=== PATIENT | female | born 1945 | race Caucasian/White ===

== ENCOUNTER → 2021-08-17 08:18 | Outpatient (CLI) | payer MEDICARE, OTHER, SELFPAY ==
--- NOTE | 2021-08-17 08:26 | CT_ITS ---
STUDY: LOW DOSE CT LUNG CANCER SCREENING REASON FOR EXAM: Female, 76 years old. COPD. Longtime smoker. RADIATION DOSAGE (If Supplied By Facility): CTDIvol = ( 3.02 ) mGy, DLP = ( 110.23 ) mGycm TECHNIQUE: No contrast was administered. Low dose technique was utilized (average mAS-38 and kVp 120). 1.25 mm axial source images with a slice interval of 1.25-mm were reconstructed in lung windows. 2.5 mm axial source images with a slice interval of 2.5-mm were reconstructed in lung windows. 5.0 mm axial source images with a slice interval of 5.0-mm were reconstructed in soft tissue windows. Nodule measured using lung windows on PACS and/or independent workstation with automated measurement of minimum and maximum diameter. Nodule measurement reported as average diameter rounded to the nearest whole number. Growth is defined as an increase ins size of greater than 1.5 mm. COMPARISON: None. NODULES: No suspicious nodules are seen. Emphysema: Hyperinflation. Emphysematous changes more prominent in the upper lobes. Focal increased markings in the posterior aspect of the lingular segment of the left upper lobe abutting the left major fissure most likely secondary to scarring. There is evidence of a linear scarring at the lung bases. Endobronchial lesion: None Aorta: Atherosclerotic plaque formation. Coronary arteries: Coronary artery calcification. Heart: Unremarkable. Pulmonary artery: Mediastinal nodes: Other chest and abdominal findings: Calcification of the margins of both breast prostheses. CT/Low Dose CT Lung Screening IMPRESSION: Lung-RADS category 2 - Continue annual screening with LDCT in 12 months. IMPORTANT NOTES FOR USE: ACR Lung-RADS Version 1.1 Assessment Categories Release Date: 2018 Category: Coded 0-4 bases on nodule(s) with highest degree of suspicion. Negative screen is defined as categories 1 and 2; a positive screen is defined as categories 3 and 4. Category 3 and 4A nodules that are unchanged on interval CT should be coded as category 2, and individuals returned to screening in 12 months. Category 4X: Category 3 or 4 nodules with additional imaging findings that increase the suspicion of lung cancer, such as spiculation, GGN that doubles in size in 1 year, enlarged lymph notes, etc. Category Modifiers: S (significant finding unrelated to lung cancer) Electronically Signed: Ayden Sifuentes MD at 15:17 EDT , Service support ,
== END ==
PROVIDERS: PCP Internal Medicine; Referring Provider Internal Medicine; Visit Provider Internal Medicine
DX: F17.210 Nicotine dependence, cigarettes, uncomplicated (principal); J44.9 Chronic obstructive pulmonary disease, unspecified
CPT/HCPCS: 71271

== ENCOUNTER → 2021-09-30 10:41 | Outpatient (CLI) | payer MEDICARE, OTHER, SELFPAY ==
[2021-09-30 11:24] LABS: D-Dimer Quantitative (DVT/PE) 0.84 FEU/ug/m (0.27-0.49)
[2021-09-30 11:25] LABS: Erythrocyte Sedimentation Rate 41 mm/hr (0-30)
== END ==
PROVIDERS: PCP Internal Medicine; Visit Provider Nurse Practitioner
DX: R06.02 Shortness of breath (principal)
CPT/HCPCS: 85379; 85652; 86141

== ENCOUNTER → 2021-09-30 13:47 | Outpatient (CLI) | payer MEDICARE, OTHER, SELFPAY ==
--- NOTE | 2021-09-30 14:35 | CT_ITS ---
STUDY: CTA CHEST REASON FOR EXAM: Female, 76 years old. R/O PE RADIATION DOSAGE (If Supplied By Facility): CTDIvol = ( 6.88 ) mGy, DLP = ( 216.80 ) mGycm TECHNIQUE: The examination was performed with the intravenous administration of IV 100mL [id number]-370. Post-processing of the angiographic images was performed, with multiplanar reformation and 3D reconstruction. Individualized dose optimization techniques were used for this CT. COMPARISON: 08/17/2021 FINDINGS: Normal enhancement of the main pulmonary artery and right and left pulmonary arteries. Normal enhancement of the bilateral peripheral pulmonary arteries. There is no demonstrated pulmonary embolism. There is atherosclerotic calcification of the aortic arch with tortuosity. There is no demonstrated aortic dissection. Normal heart and pericardium. There are calcifications of the coronary arteries. Normal mediastinum. Normal hilar regions. Normal visualized trachea and bronchi. The lungs are hyper expanded, with flattening of the hemidiaphragms. Centrilobular emphysema predominantly in the upper lung zones. Scattered lower lobe fibrotic bands and not significantly changed since the prior study. Normal pleura. Bilateral breast implants with capsular calcifications. There are degenerative changes of thoracic spine. Mild T5 compression fracture stable since prior chest CT. 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 Gallstones are present. CT/CTA Chest W/WO Contrast IMPRESSION: 1. No central or segmental pulmonary embolism. 2. Chronic changes, as above. Electronically Signed: Mamadou Avitia MD ([place]) at 15:18 EST , Service support ,
[2021-09-30 15:00] LABS: CREATININE FINGERSTICK 0.7 mg/dL (0.55-1.02); EGFR FINGERSTICK > 60.0000 mL/min (>60)
== END ==
PROVIDERS: PCP Internal Medicine; Referring Provider Nurse Practitioner; Visit Provider Nurse Practitioner
DX: R79.89 Other specified abnormal findings of blood chemistry (principal); R06.02 Shortness of breath
CPT/HCPCS: 71275; 85379; 85652; 86141; Q9967

== ENCOUNTER 2021-10-06 11:16 | Inpatient (IN) | payer MEDICARE, OTHER, SELFPAY ==
[2021-10-06] VITALS (13 sets, daily range): BP systolic 127–146; BP diastolic 55–72; PULSE 76–94; RESP 15–18; TEMP 36.3–37; O2SAT 3–97; BMI 27.4; BMI 27.9
--- NOTE | 2021-10-06 12:05 | EDS_ITS ---
HPI History of Present Illness Chief Complaint: Shortness of Breath Informant: patient Onset/Context/Timing Onset: Days Context: gradual Timing: Continuous Current Severity: Mild Maximum Severity: Mild Associated Symptoms Negative for cough, rhinorrhea, post nasal drip, ear pain, fever, sore throat, subjective, chills, sweats, clear sputum, white sputum, yellow sputum or green sputum Chest Pain: Positive for None Narrative Narrative: 76-year-old female history of COPD not on home O2 smoker smokes about half pack cigarettes a day. Recent diagnosis of a T5 compression fracture and insulin-dependent diabetic with insulin pump. States that she has been more short of breath the last several days. She has had a work-up done by her primary care physician and elevated D-dimer had a CTA which was negative and a chest x-ray both done about 6 days ago and were unremarkable. She denies fever or chills. She was vaccinated against Covid and has already gotten her booster also. She denies nausea vomiting or diarrhea no hemoptysis. No chest pain. PE Risk Factors: Negative for Cancer, OCP + Smoking + > 35, Prior DVT or PE, Recent immobilization, Recent surgery and Recent travel Prior similar symptoms: No Recent Illness/Hospitalization: No PFSH PFSH Medical History COPD (chronic obstructive pulmonary disease) Diabetes Osteopenia Respiratory failure Home Medications albuterol sulfate 90 mcg/actuation aerosol inhaler 1 puff INHALATION ONCE PRN 09/08/21 [History Last Taken Unknown] amlodipine 5 mg-benazepril 10 mg capsule 1 cap PO DAILY 09/08/21 [History Last Taken Unknown] fluticasone 100 mcg-salmeterol 50 mcg/dose blistr powdr for inhalation 1 inh INHALATION BID 09/08/21 [History Last Taken Unknown] insulin aspart U-100 100 unit/mL subcutaneous solution 100 unit CONTINUOUS SUBCUTANEOUS INFUSION .continuous ml 09/08/21 [History Last Taken Unknown] levothyroxine 112 mcg tablet 112 mcg PO DAILY 09/08/21 [History Last Taken Un known] metoprolol succinate 50 mg tablet,extended release 24 hr 50 mg PO DAILY 09/08/21 [History Last Taken Unknown] oxybutynin chloride 5 mg tablet 10 mg PO DAILY tab 09/08/21 [History Last Taken Unknown] simvastatin 10 mg tablet 10 mg PO DAILY 09/08/21 [History Last Taken Unknown] Allergy/AdvReac Type Severity Reaction Status Date / Time ciprofloxacin [From Cipro] Allergy Intermediate hives Verified 10/06/21 11:17 Sulfa (Sulfonamide Allergy Intermediate hives Verified 10/06/21 11:17 Antibiotics) Family History Father Diabetes Other Respiratory disease Social History Smoking Status: Current every day smoker tobacco type: cigarettes ROS ROS ED ROS Narrative Shortness of breath. Review of Systems ROS Unobtainable: Denies due to encephalopathy Constitutional Constitutional ED: Denies chills or fever(s) Eyes Eyes: Denies change in vision ENT ENT ED: Denies ear pain Cardiovascular Cardiovascular: Denies chest pain or palpitations Respiratory/Chest Respiratory/Chest: Reports dyspnea; Denies cough or sputum Gastrointestinal Gastrointestinal: Denies abdominal pain, diarrhea, nausea or vomiting Genitourinary Genitourinary ED: Denies dysuria or hematuria Musculoskeletal Musculoskeletal: Denies myalgias Integumentary Denies rash Neurologic Neurologic: Denies headache(s) Psychiatric Psychiatric: Denies depression Endocrine Endocrinology: Denies polyuria Hematologic/Lymphatic Hematologic/Lymphatic: Denies easy bruising Allergic/Immunologic Allergic/Immunologic ED: Denies urticaria EXAM Physical Exam Narrative Exam Narrative: 76-year-old female no acute distress on room air pulse ox 84% on 3 L she is 97%. No distress. HEENT exam unremarkable. Neck nontender no JVD. Lungs clear to auscultation bilaterally. Heart regular rhythm no murmur. Rate about 90. Abdomen soft nontender normal bowel sounds no peritoneal signs. Extremities moves all 4. Calves nontender without edema or cords. Neurologically she is awake alert with no focal motor deficits. Const Vital Signs: 10/06/21 11:26 10/06/21 11:28 10/06/21 11:50 Temperature 98.6 F Temperature Source Temporal Pulse Rate 94 Respiratory Rate 18 Respiratory Effort Short of Breath Respiratory Depth Deep Respiratory Pattern Tachypnea Blood Pressure 146/72 H Blood Pressure Mean 96 Pulse Ox 84 97 Oxygen Delivery Method Room Air Nasal Cannula Nasal Cannula Oxygen Flow Rate (L/min) 3 3 10/06/21 11:52 10/06/21 12:15 10/06/21 12:18 Temperature Temperature Source Pulse Rate 76 Respiratory Rate 18 Respiratory Effort Respiratory Depth Respiratory Pattern Blood Pressure Blood Pressure Mean Pulse Ox 91 92 Oxygen Delivery Method Nasal Cannula Nasal Cannula Oxygen Flow Rate (L/min) 3 3 10/06/21 13:28 Temperature Temperature Source Pulse Rate 94 Respiratory Rate 15 Respiratory Effort Respiratory Depth Respiratory Pattern Blood Pressure 145/55 H Blood Pressure Mean 85 Pulse Ox 91 Oxygen Delivery Method Nasal Cannula Oxygen Flow Rate (L/min) 3 Positive well nourished and well developed; Negative for obese, cachectic, contractures or unkempt General Appearance ED: well developed and NAD; Negative for unkempt, cachectic, contractures or pallor Nutritional Appearance: Negative for cachectic or obese HEENT Reports moist mucous membranes atraumatic; Negative for trauma or tenderness Eyes PERRL and EOMs intact bilaterally Neck no lymphadenopathy, supple, no meningeal signs and no JVD General: Negative for tenderness Resp normal respiratory effort and clear to auscultation bilaterally Auscultation: Negative for rales, rhonchi or wheezes Cardio regular rate, regular rhythm, S1 normal heart sound, S2 normal heart sound and no murmurs GI non-tender, non-distended and no masses Auscultation: normoactive bowel sounds Palpation: soft; Negative for tender, guarding or rebound tenderness present Back/Spine no CVA tenderness and normal to inspection General Back: Negative for CVA tenderness Extremity normal to inspection General Extremety ED: Negative for edema or tenderness General Extremity: Negative for edema Neuro oriented x3 and CN's II-XII intact bilaterally Sensorium / Orientation: alert, oriented to person, oriented to place and oriented to time; Negative for orientation impaired, confused or lethargic Motor Exam: strength 5/5 throughout Psych mental status grossly normal Appearance: Negative for unkempt Thought Process: normal thought process Skin no wounds and skin turgor normal General Skin Exam: Negative for jaundice or pallor Lesions: no lesions Rashes: no rashes MDM MDM MDM Narrative Medical decision making narrative: 76-year-old female no acute distress. Hypoxic on room air. This may be from underlying COPD. Rule out pneumonia versus CHF or other etiologies. She just recently had a work-up for a PE which was negative she had a negative CTA. Lab Data Attestation: I reviewed the patient's lab results. Lab results narrative: CBC shows a white count of 12.2. Hemoglobin of 13. Electrolytes unremarkable gap of 4 BUN 18 creatinine 0.9. Glucose 125 troponin normal. Covid negative. Chemistries unremarkable gap of 4 normal BUN and creatinine. Normal troponin of 14. Labs: Laboratory Results - last 24 hr 10/06/21 10/06/21 12:11 12:11 WBC 12.2 H RBC 4.58 Hgb 13.1 Hct 40.3 MCV 88.0 MCH 28.6 MCHC 32.5 RDW Std Deviation 46.7 H RDW Coeff of Kristyn 14.7 H Plt Count 302 MPV 10.8 Immature Gran % (Auto) 0.600 Neut % (Auto) 77.5 H Lymph % (Auto) 10.1 L Shannon % (Auto) 9.9 Eos % (Auto) 1.3 Baso % (Auto) 0.6 Absolute Neuts (auto) 9.5 H Absolute Lymphs (auto) 1.23 Nucleated RBC % 0 Sodium 138 Potassium 4.0 Chloride 102 Carbon Dioxide 32.0 Anion Gap 4 L BUN 18 Creatinine 0.96 Estim Creat Clear Calc 41.71 Est GFR (MDRD) Af Amer 73 Est GFR (MDRD) Non-Af 60 BUN/Creatinine Ratio 18.8 Glucose 125 H Calcium 9.3 Troponin I High Sens 14 Radiography Chest X-Ray - ED: 1 View, Read by ED Physician, Heart, Lungs, Mediastinum, Bony Structures, No Acute Disease and Chronic Changes Diagnostic Testing: Chest x-ray, portable, single view interpreted by myself shows no acute abnormality. Chronic changes consistent with COPD. Bilateral breast implants. Rhythm Strip Rhythm Strip: Sinus Rhythm Rate: 76 Ectopy: None EKG Initial EKG: Attestation: I personally reviewed and interpreted this EKG as follows: Interpretation: Sinus Rhythm and No Acute Injury Pattern Comments: Normal sinus rhythm rate of 76 no acute signs of MN or ischemia. No old EKG available. Discharge Plan Triage Chief Complaint: Shortness of Breath ED Provider: Luis Armando Ashley Dx/Rx/DC Orders Prescriptions: No Action insulin aspart U-100 [Novolog U-100 Insulin aspart] 100 unit/mL solution 100 unit continuous subcutaneous infusion .continuous RF: 0 levothyroxine 112 mcg tablet 112 mcg PO DAILY RF: 0 amlodipine-benazepril [Lotrel] 5-10 mg capsule 1 cap PO DAILY RF: 0 oxybutynin chloride 5 mg tablet 10 mg PO DAILY RF: 0 metoprolol succinate [Toprol XL] 50 mg tablet extended release 24 hr 50 mg PO DAILY RF: 0 simvastatin 10 mg tablet 10 mg PO DAILY RF: 0 fluticasone propion-salmeterol [Wixela Inhub] 100-50 mcg/dose blister with device 1 inh inhalation BID RF: 0 albuterol sulfate [Proventil HFA] 90 mcg/actuation HFA aerosol inhaler 1 puff inhalation ONCE PRN (Reason: shortness of breath or wheezing) RF: 0 Primary Care Provider: Shena Jeffers
[2021-10-06] MEDS: Ipratropium/Albuterol Sulfate 3 ML AMPUL.NEB INHALATION ×2 (12:18→19:13)
[2021-10-06] MEDS: Albuterol 2.5 MG/3 ML VIAL.NEB. INHALATION (12:18)
[2021-10-06 12:22] LABS: Absolute Lymphocyte Count 1.23 X10^3/uL (0.83-4.51); Absolute Neutrophil Count 9.5 X10^3/uL (2.0-7.7); Basophil# 0.07 X10^3/uL; Basophil% 0.6 % (0-1); Eosinophil# 0.16 X10^3/uL; Eosinophils% 1.3 % (0-5); Hematocrit 40.3 % (37-47); Hemoglobin 13.1 g/dL (12.0-15.0); Lymphocyte # 1.23 X10^3/ul (0.83-4.51); Lymphocyte % 10.1 % (19-41); Mean Corp Hgb Conc 32.5 g/dL (32-36); Mean Corpuscular Hgb 28.6 pg (27.0-32.0); Mean Platelet Vol. 10.8 fl (6.2-12.0); Monocyte# 1.21 X10^3/uL; Monocyte% 9.9 % (0-10); NRBC Flagged by Analyzer 0 % (0-5); Neutrophil # 9.46 X10^3/uL (2.7-7.7); Neutrophil % 77.5 % (47-70); Platelet Count 302 K/mm3 (150-450); RBC Distribution Width CV 14.7 % (11.6-14.6); RBC Distribution Width SD 46.7 fl (35.1-43.9); Red Blood Count 4.58 M/mm3 (4.2-5.4); White Blood Count 12.2 K/mm3 (4.4-11.0)
[2021-10-06] MEDS: predniSONE 20 MG Tablet 60 MG PO (12:35)
[2021-10-06 12:36] LABS: Anion Gap 4 (5-15); BUN 18 mg/dL (7-18); BUN/Creat Ratio 18.8 RATIO (10-20); Calcium,Total 9.3 mg/dL (8.5-10.1); Chloride 102 mmol/L (98-107); Creatinine, Serum 0.96 mg/dL (0.55-1.02); EST Glomerular Filtration Rate 60 mL/min (>60); Est Glom Filt Rate - Afr Amer 73 mL/min (>60); Estimated Creatinine Clearance 41.71 ml/min; Glucose 125 mg/dL (74-106); Sodium Level 138 mmol/L (136-145); Troponin-I HS 14 pg/mL (3.0-54.0)
--- NOTE | 2021-10-06 12:40 | RAD_ITS ---
STUDY: X-RAY CHEST REASON FOR EXAM: Female, 76 years old. Shortness of breath, low 02 sats TECHNIQUE: Single AP portable view of the chest. COMPARISON: Comparison is made with prior study dated 09/30/2021. FINDINGS: EKG electrodes are seen. Once again, there is evidence of bilateral breast implants with capsular calcifications. There now is evidence of vascular congestion and mild degree of CHF with superimposed bibasilar atelectasis worse on the right side. There is no demonstrated pleural abnormality. Normal size heart. Normal mediastinum and uli. Normal visualized pulmonary arteries. There is atherosclerotic calcification of the aortic arch with tortuosity. There are diffuse degenerative changes of the visualized thoracic spine. Normal visualized ribs, clavicles, and shoulders. There is no demonstrated abnormality of the visualized soft tissue structures of the upper abdomen. RAD/Chest 1 View (Portable) IMPRESSION: Vascular congestion and mild degree of CHF with bibasilar atelectasis. Electronically Signed: Ayden Sifuentes MD at 13:03 EST , Service support ,
--- NOTE | 2021-10-06 15:09 | HP.PCM.HOS_ITS ---
HPI - General General Date of Admission: 10/06/21 Date of Service: 10/06/21 Chief Complaint: Shortness of breath HPI Narrative LIVIER SMALLS, is a 76 F who presented to the emergency department with spouse fell on 10/06/2021 the chief complaint of shortness of breath. She states that she started experiencing some fatigue over the weekend. She had a thoracic spine fracture and a CTA of her chest was done last week for her pain to rule out pulmonary embolism. This was negative for PE. It also appears that she had an elevated ESR and CRP at that time indicating some inflammatory process was going on although nonspecific. She states that the fatigue definitely sudden after she was evaluated by her doctor on 09/30/2021 and starting this morning she developed some shortness of breath. She denies any anosmia or dysgeusia, nausea or vomiting, diarrhea, cough, fever or chills and she has been vaccinated and boosted for COVID-19. She is afebrile with normal blood pressure, respiratory rate but her pulse ox in the emergency department upon presentation was 84% on room air and improved to 91-97 on 3 L nasal cannula. Her CBC shows a mildly elevated white count at 12.2 with a left shift. Her BMP is overall unremarkable. Her serum glucose was 125. Her serum troponin was 14. A rapid Covid was negative and a PCR is pending at this time. Her chest x-ray showed bibasilar haziness but no focal infiltrate. She was treated with prednisone 60 mg p.o. x1 dose and given a DuoNeb nebulizer treatment and request for admission was made. [facility]LY [facility] Medical History COPD (chronic obstructive pulmonary disease) Diabetes Osteopenia Respiratory failure Home Medications albuterol sulfate 90 mcg/actuation aerosol inhaler 1 puff INHALATION ONCE PRN 09/08/21 [History Last Taken 10/05/21] amlodipine 5 mg-benazepril 10 mg capsule 1 cap PO DAILY 09/08/21 [History Last Taken 10/06/21] fluticasone 100 mcg-salmeterol 50 mcg/dose blistr powdr for inhalation 1 inh INHALATION BID PRN 09/08/21 [History Last Taken 10/05/21] insulin aspart U-100 100 unit/mL subcutaneous solution 100 unit CONTINUOUS SUBCUTANEOUS INFUSION .continuous ml 09/08/21 [History Last Taken 10/06/21] levothyroxine 112 mcg tablet 112 mcg PO DAILY 09/08/21 [History Last Taken 10/06/21] metoprolol succinate 50 mg tablet,extended release 24 hr 50 mg PO DAILY 09/08/21 [History Last Taken 10/06/21] oxybutynin chloride 5 mg tablet 10 mg PO DAILY tab 09/08/21 [History Last Taken 10/06/21] simvastatin 10 mg tablet 10 mg PO DAILY 09/08/21 [History Last Taken 10/05/21] Allergy/AdvReac Type Severity Reaction Status Date / Time ciprofloxacin [From Cipro] Allergy Intermediate hives Verified 10/06/21 11:17 Sulfa (Sulfonamide Allergy Intermediate hives Verified 10/06/21 11:17 Antibiotics) Family History Father Diabetes Other Respiratory disease no surgical history Social History (Updated 10/06/21 @ 15:[address] Roxi Velázquez DO) Smoking Status: Current every day smoker tobacco type: cigarettes Smoking packs per day: 0.5 Smoking cigarettes per day: 10.0 alcohol intake: current alcohol intake frequency: a few times a month substance use type: does not use ROS Constitutional Constitutional: Reports weakness; Denies anorexia, change in weight, chills, fatigue, fever(s), malaise, night sweats or other Eyes Eyes: Denies blurry vision, change in eye color, change in vision, discharge from eye(s), double vision, erythema, eye pain, loss of vision or other ENT HEENT: Denies abnormal hearing, dysphagia, ear pain, epistaxis, headache(s), hearing loss, nasal congestion, nasal discharge, post nasal drip, sinus pressure, sore throat or other Cardiovascular Cardiovascular: Denies chest pain, claudication, dyspnea on exertion, edema, lightheadedness, orthopnea, palpitations, paroxysmal nocturnal dyspnea, rapid heart rate, syncope or other Respiratory/Chest Respiratory/Chest: Reports dyspnea, shortness of breath at rest and shortness of breath with exertion; Denies cough, excessive phlegm production, hemoptysis, productive cough, wheezing or other Gastrointestinal Gastrointestinal: Denies abdominal pain, coffee ground emesis, constipation, diarrhea, dyspepsia, hematemesis, hematochezia, loose stools, melena, nausea, vomiting or other Genitourinary Genitourinary: Reports urinary incontinence; Denies burning urination, difficulty urinating, dysuria, hematuria, nocturia, urinary frequency, urinary hesitancy, urinary urgency or other Musculoskeletal Musculoskeletal: Reports back pain; Denies arthralgias, joint pain, joint stiffness, joint swelling, myalgias, neck pain or other Neurologic Neurologic: Denies abnormal gait, abnormal speech, confusion, disequilibrium, dizziness, focal weakness, headache(s), numbness, paresthesias, seizure-like activity, seizures, syncope, tingling, tremor(s) or other Psychiatric Psychiatric: Denies anxiety, depression, homicidal ideation, suicidal ideation or other Endocrine Endocrinology: Denies change in body appearance, cold intolerance, excessive sweating, heat intolerance, polydipsia, polyuria or other Hematologic/Lymphatic Hematologic/Lymphatic: Denies anemia, easy bleeding, easy bruising, lymphadenopathy or other Allergic/Immunologic Allergic/Immunologic: Denies rhinitis, hives, eczemia, asthma or other Vital Signs Vital Signs Vital Signs: 10/06/21 11:26 10/06/21 11:28 10/06/21 11:50 Temperature 98.6 F Temperature Source Temporal Pulse Rate 94 Respiratory Rate 18 Respiratory Effort Short of Breath Respiratory Depth Deep Respiratory Pattern Tachypnea Blood Pressure 146/72 H Blood Pressure Mean 96 Pulse Ox 84 97 Oxygen Delivery Method Room Air Nasal Cannula Nasal Cannula Oxygen Flow Rate (L/min) 3 3 10/06/21 11:52 10/06/21 12:15 10/06/21 12:18 Temperature Temperature Source Pulse Rate 76 Respiratory Rate 18 Respiratory Effort Respiratory Depth Respiratory Pattern Blood Pressure Blood Pressure Mean Pulse Ox 91 92 Oxygen Delivery Method Nasal Cannula Nasal Cannula Oxygen Flow Rate (L/min) 3 3 10/06/21 13:28 10/06/21 14:50 Temperature 98.6 F Temperature Source Temporal Pulse Rate 94 84 Respiratory Rate 15 17 Respiratory Effort Respiratory Depth Respiratory Pattern Blood Pressure 145/55 H 145/55 H Blood Pressure Mean 85 85 Pulse Ox 91 91 Oxygen Delivery Method Nasal Cannula Oxygen Flow Rate (L/min) 3 3 Weight Weight: 72.575 kg Body Mass Index (BMI) 27.4 Physical Exam Const alert, oriented x3 and no apparent distress Constitutional Narrative: Older white female sitting up in bed, appears comfortable, nontoxic, currently on 3 L nasal cannula with oxygen saturation of 91 to 92% no signs of respiratory distress General Appearance: cooperative HEENT normocephalic, head/scalp atraumatic, hearing grossly normal bilaterally and moist oral mucous membranes HEENT Narrative: Dentition is good, Mallampati is 2, no thrush Eyes PERRL, EOMs intact bilaterally and conjunctivae normal Eyes Narrative: No scleral icterus Neck no lymphadenopathy, supple, no JVD and no carotid bruits Neck Narrative: Trachea midline, no thyroid enlargement Resp normal respiratory effort, no retractions and no use of accessory muscles Resp Narrative: Few scattered end expiratory wheeze and overall diminished but no rales or rhonchi Auscultation: Negative for crackles, rales, rhonchi or wheezes Cardio regular rate, regular rhythm, S1 normal heart sound, S2 normal heart sound, no murmurs, no rub, no gallops, no clicks and no JVD GI normal to inspection, nondistended, normoactive bowel sounds, soft to palpation, non-tender and non-distended Extremity no clubbing, cyanosis or edema Peripheral Pulses: Yes pulses 2+ throughout Skin no rashes or lesions noted, no wounds, skin turgor normal, no jaundice, no petechiae and no mottling Neuro oriented x3, CN's II-XII intact bilaterally, moves all extremities and no focal motor deficits Sensorium / Orientation: awake and alert Speech: speech normal Motor Exam: strength 5/5 throughout Psych affect normal Results Lab / Micro Data Result Diagrams: 10/06/21 12:11 10/06/21 12:11 Labs: Laboratory Results - last 24 hr 10/06/21 12:11: WBC 12.2 H, RBC 4.58, Hgb 13.1, Hct 40.3, MCV 88.0, MCH 28.6, MCHC 32.5, RDW Std Deviation 46.7 H, RDW Coeff of Kristyn 14.7 H, Plt Count 302, MPV 10.8, Immature Gran % (Auto) 0.600, Neut % (Auto) 77.5 H, Lymph % (Auto) 10.1 L, [place] % (Auto) 9.9, Eos % (Auto) 1.3, Baso % (Auto) 0.6, Absolute Neuts (auto) 9.5 H, Absolute Lymphs (auto) 1.23, Nucleated RBC % 0 10/06/21 12:11: Sodium 138, Potassium 4.0, Chloride 102, Carbon Dioxide 32.0, Anion Gap 4 L, BUN 18, Creatinine 0.96, Estim Creat Clear Calc 41.71, Est GFR (MDRD) Af Amer 73, Est GFR (MDRD) Non-Af 60, BUN/Creatinine Ratio 18.8, Glucose 125 H, Calcium 9.3, Troponin I High Sens 14 Micro: Microbiology 10/06/21 12:35 Nasal Secretion SARS-CoV-2 Antigen (Rapid) - Final Rhythm Strip Rhythm Strip: Sinus Rhythm Rate: 76 Ectopy: None Assessment & Plan Assessment/Plan (1) Acute respiratory failure with hypoxia: (2) COPD with acute exacerbation: (3) Leukocytosis: PLAN: Acute hypoxic respiratory failure -Etiology is unclear at this time although suspect acute exacerbation of COPD -CTA of her chest was performed on 09/30/2021 secondary to an elevated D-dimer of 0.84 and showed no acute abnormality but centrilobular emphysema in the apices -Check respiratory PCR -Rapid Covid is negative we will check Covid PCR -Patient has been vaccinated and boosted for Covid -Chest x-ray is overall unimpressive -Check BNP and if elevated will obtain an echocardiogram although clinically patient appears to be euvolemic -Check D-dimer and if elevated greater than 0.84 we will repeat CTA of her chest to rule out PE given the fact that she is now hypoxic -Solu-Medrol 40 every 8 -As needed and scheduled pulmonary toilet -Incentive spirometer -Sputum culture if able -Check urine Legionella and strep pneumo antigens -With mild leukocytosis and acute hypoxia will start ceftriaxone and azithromycin empirically -Patient did have ESR and CRP performed Leukocytosis -Infectious work-up as noted above -We will start antibiotics empirically at this time COPD with current tobacco abuse -Recommend tobacco cessation -Patient denies any need for nicotine patch at this time -Hold home inhalers Hypothyroidism -We will check TSH -Continue levothyroxine Hypertension -Continue metoprolol -Continue motor pain/Benzepril Hyperlipidemia -Continue simvastatin DM-1 -Patient has insulin pump -We will continue at this time but if mental status changes or any other factors change may need to convert to subcu insulin and remove pump -Patient has appointment to follow-up with Dr. Ceja as an outpatient soon -Accu-Cheks before meals and at bedtime Urinary incontinence -Continue oxybutynin DVT prophylaxis -Lovenox 40 mg subcu daily -SCDs CODE STATUS -DNR CCA without intubation as per discussed with the patient the emergency department Charges/Coding Visit Charges Inpatient E&M: 21952 Init Hosp L3
[2021-10-06 15:10] LABS: BNP,B-Type NATRIURETIC PEPTIDE 158.9 pg/mL (0-100)
--- NOTE | 2021-10-06 15:14 | ECHOD_ITS ---
Reason For Study: Dyspnea/SOB Procedure This was a 2D Doppler, Color Flow transthoracic echocardiogram. The study was technically difficult. Exam performed portable in patient room. Left Ventricle Normal LV size. Left ventricular systolic function is normal. The estimated ejection fraction is 70 %. Transmitral diastolic flow velocities suggest moderate (stage 2) diastolic dysfunction (pseudonormal pattern). No regional wall motion abnormalities noted. Right Ventricle Normal RV size. Normal systolic function. Atria Normal left atrium. Normal right atrium. No doppler evidence for ASD. Mitral Valve There is mild to moderate mitral annular calcification. Extension of the mitral annular calcification onto the mitral valve leaflets. Trivial mitral valve insufficiency. Tricuspid Valve Normal tricuspid valve. Trivial tricuspid valve insufficiency. Right ventricular systolic pressure estimated to be 39 mmHg. Aortic Valve Trisinus/trileaflet aortic valve. Mild focal aortic valve calcification. Pulmonic Valve The pulmonic valve is not well visualized. Great Vessels The aortic root is not well visualized. Pericardium/Pleural No pericardial effusion. MMode/2D Measurements & Calculations LVIDd: 3.9 cm IVSd: 1.2 cm LA dimension: 3.6 cm LVIDs: 1.9 cm LVPWd: 1.0 cm FS: 52.1 % LAV(MOD-bp): 45.3 ml LA A4 area: 17.0 cm2 RA A4 area: 14.9 cm2 LAV(MOD-bp) Indexed: 25.4 ml/m2 LAV(MOD-sp2): 47.8 ml LAV(MOD-sp4): 43.8 ml Time Measurements MV dec time: 0.26 sec Doppler Measurements & Calculations MV E max jett: 147.2 cm/sec Lat Peak E' Jett: 7.4 cm/sec Med Peak E' Jett: 8.5 cm/sec MV A max jett: 128.9 cm/sec E/E' lat: 19.8 E/E' med: 17.3 MV E/A: 1.1 MV V2 max: 171.2 cm/sec MV P1/2t max jett: 172.3 cm/sec Ao V2 max: 163.7 cm/sec MV max P.7 mmHg MV P1/2t: 89.1 msec Ao max P.7 mmHg MV V2 mean: 113.9 cm/sec MV dec slope: 566.2 cm/sec2 MV mean P.9 mmHg MVA(P1/2t): 2.5 cm2 MV V2 VTI: 43.9 cm LV V1 max: 131.8 cm/sec PA V2 max: 87.7 cm/sec TR max jett: 300.1 cm/sec LV V1 max P.0 mmHg TR max P.0 mmHg ECHO/Echo Complete Interpretation Summary The study was technically difficult. Left ventricular systolic function is normal. The estimated ejection fraction is 70 %. There is mild to moderate mitral annular calcification. Extension of the mitral annular calcification onto the mitral valve leaflets. Trivial mitral valve insufficiency. Trivial tricuspid valve insufficiency. Mild focal aortic valve calcification. Right ventricular systolic pressure estimated to be 39 mmHg. Transmitral diastolic flow velocities suggest diastolic dysfunction (pseudonorm al pattern). Ordering Physician: Roxi Velázquez Referring Physician: Shena Jeffers Performed By: Odilon Hager RCS
[2021-10-06 15:56] LABS: D-Dimer Quantitative (DVT/PE) 1.24 FEU/ug/m (0.27-0.49)
--- NOTE | 2021-10-06 16:11 | CT_ITS ---
EXAM: CT ANGIOGRAPHY CHEST WITHOUT AND WITH INTRAVENOUS CONTRAST CLINICAL INDICATION: HYPOXIA, ELEVATED D-DIMER. TECHNIQUE: Helically acquired angiography images were obtained of the chest without and with intravenous contrast. This CT exam was performed using one or more of the following dose reduction techniques: automated exposure control, adjustment of the mA and/or kV according to patient size, and/or use of iterative reconstruction technique. This report was created using DSTLD report generation technology. MIP reconstructed images were created and reviewed. CONTRAST: IV 100mL Isovue-370 COMPARISON: None. FINDINGS: PULMONARY ARTERIES: There is demonstrated pulmonary embolism bilaterally. Normal in caliber. AORTA: Unremarkable. Normal in caliber. No evidence of dissection. GREAT VESSELS OF AORTIC ARCH: Unremarkable. Normal in caliber. No evidence of dissection. LUNGS AND PLEURAL SPACES: Bilateral small pleural effusions. There is bilateral pneumonia. No mass. HEART: Unremarkable. Heart size is normal. No pericardial effusion. No signs of right heart strain, ratio of right ventricle to left ventricle measures less than 1. MEDIASTINUM: Unremarkable. No mediastinal or hilar adenopathy. Esophagus is unremarkable. No hiatal hernia. THYROID: Unremarkable. No thyroid lesions. BONES/JOINTS: There are degenerative findings of the thoracic spine. No suspicious lytic or blastic abnormality. SOFT TISSUES: Calcified breast implants. KIDNEYS AND URETERS: Simple left renal cyst. NO follow up required. CT/CTA Chest W/WO Contrast IMPRESSION: 1. There is demonstrated pulmonary embolism bilaterally. There is NO saddle embolus. 2. Bilateral small pleural effusions. 3. There is bilateral pneumonia. N.B. : The above Results were Read Back by Pelon Hebert MD to KRISTINE Mendez, and understanding confirmed on 10/06/2021 17:12:17 (ET). Electronically Signed: Pelon Hebert MD at 17:04 EST , Service support ,
--- NOTE | 2021-10-06 16:28 | PCS.PANDOC ---
PANDEMIC DOCUMENTATION INITIATED: Date: 06/08/2021 Time: 190
--- NOTE | 2021-10-06 17:30 | PCM.HOSP.N ---
Hospitalist Note Her repeat D-dimer had gone up from 0.84 on 09/30/2020 21-1.24 on 10/06/2021 and therefore a CTA of her chest was performed. The CTA showed pulmonary embolus. Since I have a low suspicion for infectious etiology and no real infiltrate was noted on CT of her chest I will discontinue antibiotics and steroids as well. Her COVID-19 is pending as I am unclear why she would be hypercoagulable. I will start therapeutic Lovenox at this time at 70 mg subcu twice daily and we will likely be able to transition in the next 24 hours to oral anticoagulation. Echo is pending. Her BNP was mildly elevated at 158.9 and I suspect this is likely related to RV strain with PE.
[2021-10-06] MEDS: Enoxaparin 80 MG/0.8 ML Syringe 70 MG SC (18:55)
[2021-10-06] MEDS: Atorvastatin Calcium 10 MG Tablet 5 MG PO (21:37)
[2021-10-07] VITALS (10 sets, daily range): BP systolic 140–153; BP diastolic 53–69; PULSE 80–92; RESP 16–21; TEMP 36.6–36.7; O2SAT 87–98
[2021-10-07] MEDS: Levothyroxine 112 MCG Tablet PO (05:30)
[2021-10-07] MEDS: Enoxaparin 80 MG/0.8 ML Syringe 70 MG SC (05:50)
[2021-10-07] MEDS: Ipratropium/Albuterol Sulfate 3 ML AMPUL.NEB INHALATION ×3 (07:20→13:56)
[2021-10-07 07:23] LABS: Absolute Lymphocyte Count 1.16 X10^3/uL (0.83-4.51); Absolute Neutrophil Count 7.4 X10^3/uL (2.0-7.7); Basophil# 0.02 X10^3/uL; Basophil% 0.2 % (0-1); Hematocrit 37.9 % (37-47); Hemoglobin 12.3 g/dL (12.0-15.0); Lymphocyte # 1.16 X10^3/ul (0.83-4.51); Lymphocyte % 12.4 % (19-41); Mean Corp Hgb Conc 32.5 g/dL (32-36); Mean Corpuscular Volume 86.1 fL (81-99); Mean Platelet Vol. 11.5 fl (6.2-12.0); Monocyte# 0.79 X10^3/uL; Monocyte% 8.4 % (0-10); NRBC Flagged by Analyzer 0 % (0-5); Neutrophil # 7.39 X10^3/uL (2.7-7.7); Neutrophil % 78.7 % (47-70); Platelet Count 297 K/mm3 (150-450); RBC Distribution Width CV 14.3 % (11.6-14.6); RBC Distribution Width SD 44.7 fl (35.1-43.9); White Blood Count 9.4 K/mm3 (4.4-11.0)
--- NOTE | 2021-10-07 07:24 | PN.HOSP_ITS ---
Subjective Subjective Patient is a 76-year-old lady who presented with shortness of breath. Oxygen saturation was noted to be 84% on room air. Was found to have elevated D-dimer subsequent evaluation with CTA came back positive admitted to a monitored bed for further management Objective Data Objective Data Vital Signs: Vital Signs Temp Pulse Resp BP Pulse Ox 97.9 F 80 16 153/69 H 94 10/07/21 04:33 10/07/21 04:33 10/07/21 04:33 10/07/21 04:33 10/07/21 04:33 Oxygen Flow Rate (L/min) 3 Oxygen Delivery Method Nasal Cannula Weight: 74.134 kg Body Mass Index (BMI) 27.9 Intake & Output: Intake and Output for Last 24 Hours 10/05/21 10/06/21 10/07/21 23:59 23:59 23:59 Intake Total 240 / 240 Output Total 0 / 0 Balance 240 / 240 Lab / Micro Data Result Diagrams: 10/07/21 06:33 10/07/21 06:33 Labs: Laboratory Results - last 24 hr 10/06/21 12:11: WBC 12.2 H, RBC 4.58, Hgb 13.1, Hct 40.3, MCV 88.0, MCH 28.6, MCHC 32.5, RDW Std Deviation 46.7 H, RDW Coeff of Kristyn 14.7 H, Plt Count 302, MPV 10.8, Immature Gran % (Auto) 0.600, Neut % (Auto) 77.5 H, Lymph % (Auto) 10.1 L, [place] % (Auto) 9.9, Eos % (Auto) 1.3, Baso % (Auto) 0.6, Absolute Neuts (auto) 9.5 H, Absolute Lymphs (auto) 1.23, Nucleated RBC % 0 10/06/21 12:11: Sodium 138, Potassium 4.0, Chloride 102, Carbon Dioxide 32.0, Anion Gap 4 L, BUN 18, Creatinine 0.96, Estim Creat Clear Calc 41.71, Est GFR (MDRD) Af Amer 73, Est GFR (MDRD) Non-Af 60, BUN/Creatinine Ratio 18.8, Glucose 125 H, Calcium 9.3, Troponin I High Sens 14 10/06/21 12:11: B-Natriuretic Peptide 158.9 H 10/06/21 14:57: COVID-19 (MYRIAM) Not Detected 10/06/21 15:14: D-Dimer Quant (PE/DVT) 1.24 H* 10/07/21 06:33: WBC 9.4, RBC 4.40, Hgb 12.3, Hct 37.9, MCV 86.1, MCH 28.0, MCHC 32.5, RDW Std Deviation 44.7 H, RDW Coeff of Kristyn 14.3, Plt Count 297, MPV 11.5, Immature Gran % (Auto) 0.300, Neut % (Auto) 78.7 H, Lymph % (Auto) 12.4 L, [place] % (Auto) 8.4, Eos % (Auto) 0.0, Baso % (Auto) 0.2, Absolute Neuts (auto) 7.4, Absolute Lymphs (auto) 1.16, Nucleated RBC % 0 Micro: Microbiology 10/06/21 14:57 Mucosa - Nasopharyngeal Respiratory Panel (PCR) - Final 10/06/21 12:35 Nasal Secretion SARS-CoV-2 Antigen (Rapid) - Final Radiography Diagnostic Testing: Radiology Impression Chest X-Ray 10/06/21 12:40 IMPRESSION: Vascular congestion and mild degree of CHF with bibasilar atelectasis. Electronically Signed: Ayden Sifuentes MD at 13:03 EST , Service support , Chest CTA 10/06/21 16:11 IMPRESSION: 1. There is demonstrated pulmonary embolism bilaterally. There is NO saddle embolus. 2. Bilateral small pleural effusions. 3. There is bilateral pneumonia. N.B. : The above Results were Read Back by Pelon Hebert MD to KRISTINE Mendez, and understanding confirmed on 10/06/2021 17:12:17 (ET). Electronically Signed: Pelon Hebert MD at 17:04 EST , Service support , Rhythm Strip Rhythm Strip: Sinus Rhythm Rate: 76 Ectopy: None Physical Exam Narrative GENERAL: cooperative HEENT: Atraumatic; EYES; Anicteric, Normal Conjunctiva NECK; supple, normal thyroid, RESPIRATORY: Diminished to auscultation CARDIOVASCULAR: Regular S1 S2, GI: soft, normoactive bowel sounds, : No Renal angle tenderness; EXTREMITIES: No edema, no clubbing, MUSCULOSKELETAL: no muscle waisting NEURO: Awake; no lateralizing signs. SKIN: No Rash PSYCH; Flat affect Assessment & Plan Assessment/Plan (1) Acute respiratory failure with hypoxia: (2) COPD with acute exacerbation: (3) Leukocytosis: PLAN: Patient is a 76-year-old lady who presented with shortness of breath. Oxygen saturation was noted to be 84% on room air. Was found to have elevated D-dimer subsequent evaluation with CTA came back positive admitted to a monitored bed for further management 1. Acute hypoxic respiratory failure ?Secondary to bilateral pulmonary embolism. Admitted to a monitored bed started on Lovenox 1 mg/kg every 12 hours. Patient was also placed on supplemental oxygen 2. COPD ?Aerosol treatment as needed 3. Hypertension - Blood pressure controlled, home medications continued with dose adjustment as needed 4. Hypothyroidism - Patient is on levothyroxine home dose continued 5. Dyslipidemia -Patient is on statin therapy, continued at home dose 6. Diabetes mellitus type I -Patient has an insulin pump did continue with plans for patient to manage her pump 7. Tobacco dependence - Counseled on cessation, offered nicotine patch for tobacco cravings 8. Urinary incontinence ?Patient is on oxybutynin did continue Advance planning; did discuss with the patient regarding advanced directives as well as CODE STATUS. Did explain the various scenarios involved ( FULL CODE, DNR CCA, DNR CCA with no intubation, and DNR CC and what each meant) patient elected to be DNR CCA no intubation. Order was placed. Time spent on discussion 18 minutes. Charges/Coding Visit Charges Inpatient E&M: 96599 Subs Hosp L3 Procedures Hospitalists Procedures: 28800 Advncd Care Plan 30 Min
[2021-10-07 07:59] LABS: ALB/GLOB Ratio 0.6 RATIO (0.9-2.4); AST(SGOT) 5 U/L (15-37); Alanine Aminotransfer ALT/SGPT 20 U/L (13-56); Albumin, Serum 2.5 g/dL (3.2-5.0); Alkaline Phosphatase 87 U/L (45-117); Anion Gap 10 (5-15); BUN 21 mg/dL (7-18); BUN/Creat Ratio 25.1 RATIO (10-20); Calcium,Total 9.3 mg/dL (8.5-10.1); Chloride 101 mmol/L (98-107); Creatinine, Serum 0.84 mg/dL (0.55-1.02); EST Glomerular Filtration Rate 70 mL/min (>60); Est Glom Filt Rate - Afr Amer 85 mL/min (>60); Estimated Creatinine Clearance 47.66 ml/min; Globulin 3.9 g/dL (2.2-4.2); Glucose 210 mg/dL (74-106); Magnesium 2.1 mg/dL (1.6-2.6); Potassium 3.8 mmol/L (3.5-5.1); Protein, Total 6.4 g/dL (6.4-8.2); Sodium Level 137 mmol/L (136-145)
[2021-10-07] MEDS: Oxybutynin 5 MG Tablet 10 MG PO (09:47)
[2021-10-07] MEDS: Lisinopril 10 MG Tablet PO (09:47)
[2021-10-07] MEDS: amLODIPine 5 MG Tablet PO (09:47)
[2021-10-07] MEDS: Insulin Basal Pump SC (10:03)
[2021-10-07] MEDS: Metoprolol(XL)Succ 50 MG Tablet PO (10:07)
--- NOTE | 2021-10-07 11:10 | CASEMGMT ---
RN CM Face to Face with patient for initial transition planning/care coordination assessment. RN CM introduced self and role at [facility]. Patient lying in bed, alert and oriented, boyfrriend at bedside. Patient willing to participate in assessment and is able to answer all questions appropriately. Care providers, pharmacy, and demographics verified. Patient wishes to discharge home, denies need for home health at this time. Patient states she has no further needs or concerns at this time. CM to follow for discharge planning needs that may arise. PCP: Zeyad Specialists: King test developer Preferred Pharmacy: [facility] retail at discharge Insurance: [facility], [employer] Prescription Benefit: yes Living Will/HPOA: yes, son Andrea Zamudio, HPOA LNOK: son, boyfriend Don Living Arrangements: Patient lives alone in a 1 story home with 3 steps and railing to enter the home. Patient states she is independent at home. Transportation: self/Don DME/HHC: Patient states she has grab bars at home. Denies previous HHC or SNF. Patient states she has no preferences for DME. Disposition Plan: Patient to discharge home with family support and follow-up plans in place. Jeanine FELIZ, RN, CM
--- NOTE | 2021-10-07 13:59 | PCM.DC.SUM ---
Providers Date of Admission: 10/06/21 Primary Care Physician: Dr. Shena Jeffers DO Reason For Visit: ACUTE HYPOXIC RESPIRATORY FAILURE/AECOPD Diagnosis Discharge Diagnosis (1) Acute respiratory failure with hypoxia: Status: Acute Code(s): J96.01 - Acute respiratory failure with hypoxia (2) COPD with acute exacerbation: Status: Chronic Code(s): J44.1 - Chronic obstructive pulmonary disease with (acute) exacerbation (3) Leukocytosis: Status: Acute Code(s): D72.829 - Elevated white blood cell count, unspecified Medications at Discharge Home Medications albuterol sulfate 90 mcg/actuation aerosol inhaler 1 puff INHALATION ONCE PRN 09/08/21 amlodipine 5 mg-benazepril 10 mg capsule 1 cap PO DAILY 09/08/21 fluticasone 100 mcg-salmeterol 50 mcg/dose blistr powdr for inhalation 1 inh INHALATION BID PRN 09/08/21 insulin aspart U-100 100 unit/mL subcutaneous solution 100 unit CONTINUOUS SUBCUTANEOUS INFUSION .continuous ml 09/08/21 levothyroxine 112 mcg tablet 112 mcg PO DAILY 09/08/21 metoprolol succinate 50 mg tablet,extended release 24 hr 50 mg PO DAILY 09/08/21 oxybutynin chloride 5 mg tablet 10 mg PO DAILY tab 09/08/21 simvastatin 10 mg tablet 10 mg PO DAILY 09/08/21 apixaban [Eliquis DVT-PE Treat 30D Start] 5 mg PO BID #74 tab 10/07/21 Hospital Course Summary of Care Provided Minutes Spent on Discharge: 35 Hospital Course: Patient is a 76-year-old lady who presented with shortness of breath. Oxygen saturation was noted to be 84% on room air. Was found to have elevated D-dimer subsequent evaluation with CTA came back positive admitted to a monitored bed for further management 1. Acute hypoxic respiratory failure ?Secondary to bilateral pulmonary embolism. Admitted to a monitored bed started on Lovenox 1 mg/kg every 12 hours. Patient was also placed on supplemental oxygen -Patient did request to be discharged home. She was transitioned to DOAC?Eliquis. She was also assessed for home oxygen which she did require she would need to let us with portability on discharge since she is mobile both at home as well as in the community. 2. COPD ?Aerosol treatment as needed 3. Hypertension - Blood pressure controlled, home medications continued with dose adjustment as needed 4. Hypothyroidism - Patient is on levothyroxine home dose continued 5. Dyslipidemia -Patient is on statin therapy, continued at home dose 6. Diabetes mellitus type I -Patient has an insulin pump did continue with plans for patient to manage her pump 7. Tobacco dependence - Counseled on cessation, offered nicotine patch for tobacco cravings 8. Urinary incontinence ?Patient is on oxybutynin did continue Physical Exam Narrative GENERAL: cooperative HEENT: Atraumatic; EYES; Anicteric, Normal Conjunctiva NECK; supple, normal thyroid, RESPIRATORY: Diminished to auscultation CARDIOVASCULAR: Regular S1 S2, GI: soft, normoactive bowel sounds, : No Renal angle tenderness; EXTREMITIES: No edema, no clubbing, MUSCULOSKELETAL: no muscle waisting NEURO: Awake; no lateralizing signs. SKIN: No Rash PSYCH; Flat affect Weight / BMI Weight Weight: 74.134 kg Body Mass Index (BMI) 27.9 ABG / Lab / Microbiology Data Result Diagrams: 10/07/21 06:33 10/07/21 06:33 Laboratory: Laboratory Results - last 24 hr 10/06/21 12:11: B-Natriuretic Peptide 158.9 H 10/06/21 14:57: COVID-19 (MYRIAM) Not Detected 10/06/21 15:14: D-Dimer Quant (PE/DVT) 1.24 H* 10/07/21 06:33: WBC 9.4, RBC 4.40, Hgb 12.3, Hct 37.9, MCV 86.1, MCH 28.0, MCHC 32.5, RDW Std Deviation 44.7 H, RDW Coeff of Kristyn 14.3, Plt Count 297, MPV 11.5, Immature Gran % (Auto) 0.300, Neut % (Auto) 78.7 H, Lymph % (Auto) 12.4 L, Atkinson % (Auto) 8.4, Eos % (Auto) 0.0, Baso % (Auto) 0.2, Absolute Neuts (auto) 7.4, Absolute Lymphs (auto) 1.16, Nucleated RBC % 0 10/07/21 06:33: Sodium 137, Potassium 3.8, Chloride 101, Carbon Dioxide 26.0, Anion Gap 10, BUN 21 H, Creatinine 0.84, Estim Creat Clear Calc 47.66, Est GFR (MDRD) Af Amer 85, Est GFR (MDRD) Non-Af 70, BUN/Creatinine Ratio 25.1 H, Glucose 210 H, Calcium 9.3, Phosphorus 4.0, Magnesium 2.1, Total Bilirubin 0.50, AST 5 L, ALT 20, Alkaline Phosphatase 87, Total Protein 6.4, Albumin 2.5 L, Globulin 3.9, Albumin/Globulin Ratio 0.6 L Microbiology: Microbiology 10/06/21 14:57 Mucosa - Nasopharyngeal Respiratory Panel (PCR) - Final 10/06/21 12:35 Nasal Secretion SARS-CoV-2 Antigen (Rapid) - Final Radiography Diagnostic Testing: Radiology Impression Chest X-Ray 10/06/21 12:40 IMPRESSION: Vascular congestion and mild degree of CHF with bibasilar atelectasis. Electronically Signed: Ayden Sifuentes MD at 13:03 EST , Service support , Echocardiogram 10/06/21 15:14 Interpretation Summary The study was technically difficult. Left ventricular systolic function is normal. The estimated ejection fraction is 70 %. There is mild to moderate mitral annular calcification. Extension of the mitral annular calcification onto the mitral valve leaflets. Trivial mitral valve insufficiency. Trivial tricuspid valve insufficiency. Mild focal aortic valve calcification. Right ventricular systolic pressure estimated to be 39 mmHg. Transmitral diastolic flow velocities suggest diastolic dysfunction (pseudonormal pattern). Ordering Physician: Roxi Velázquez Referring Physician: Shena Jeffers Performed By: Odilon Hager RCS Chest CTA 10/06/21 16:11 IMPRESSION: 1. There is demonstrated pulmonary embolism bilaterally. There is NO saddle embolus. 2. Bilateral small pleural effusions. 3. There is bilateral pneumonia. N.B. : The above Results were Read Back by Pelon Hebert MD to KRISTINE Mendez, and understanding confirmed on 10/06/2021 17:12:17 (ET). Electronically Signed: Pelon Hebert MD at 17:04 EST , Service support , D/C Instructions Discharge Diet: No restrictions Discharge Activity: Return to Normal Activity Call your doctor if you observe: Fever of 101 or Higher, Shortness of breath, Fainting spells and Chest pain Meaningful Use Info Meaningful Use Diagnoses (Choose all that apply): VTE VTE Anticoag overlap given w/in hospital stay or rx'd at dc?: No Pt receive overlap for 5 days?: No Reason overlap not ordered, prescribed, or given for 5 days: Treatment Not Indicated Discharge Plan Admission Admit Date/Time: 10/06/21 14:43 Attending Provider: Eder Stovall Primary Care Provider: Shena Jeffers Discharge Orders/Prescriptions Prescriptions: New Eliquis DVT-PE Treat 30D Start 5 mg (74 tabs) tablets,dose pack 5 mg PO BID Qty: 74 RF: 0 Continued insulin aspart U-100 [Novolog U-100 Insulin aspart] 100 unit/mL solution 100 unit continuous subcutaneous infusion .continuous RF: 0 levothyroxine 112 mcg tablet 112 mcg PO DAILY RF: 0 amlodipine-benazepril [Lotrel] 5-10 mg capsule 1 cap PO DAILY RF: 0 oxybutynin chloride 5 mg tablet 10 mg PO DAILY RF: 0 metoprolol succinate [Toprol XL] 50 mg tablet extended release 24 hr 50 mg PO DAILY RF: 0 simvastatin 10 mg tablet 10 mg PO DAILY RF: 0 fluticasone propion-salmeterol [Wixela Inhub] 100-50 mcg/dose blister with device 1 inh inhalation BID PRN (Reason: SOB) RF: 0 albuterol sulfate [Proventil HFA] 90 mcg/actuation HFA aerosol inhaler 1 puff inhalation ONCE PRN (Reason: shortness of breath or wheezing) RF: 0 Referrals / Follow Up: Shena Jeffers DO [Primary Care Provider] - In 1 Week Disposition Disposition (needs filled in before D/C Order can be placed): Home, Self Care Charges/Coding Visit Charges Inpatient E&M: 56830 Disch Hosp
--- NOTE | 2021-10-07 14:37 | CASEMGMT ---
RN CM received updated that patient will need home oxygen at discharge. RN CM received script. Patient has no preferences for DME and agreeable to [facility]. Referral sent to [facility] and tank provided to patient. Patient updated and had no further questions or concerns at this time.
[2021-10-07] MEDS: APIXABAN 5 MG TABLET 10 MG PO (14:56)
--- NOTE | 2021-10-07 15:43 | CHAPLAIN ---
Type of Pastoral Visit _x__ Initial Visit ___ Follow-up Visit ___ On-call Visit ___ General Patient Visit ___ Spiritual Assessment ___ Family Conference ___ Bereavement ___ Rapid Response ___ Code Blue ___ Other (describe below) Pastoral Care Referral From _x__ Patient ___ Family ___ Nurse ___ Physician ___ Vision Mixer ___ Tile Finisher ___ Other (describe below) Sacrament/Intervention _x__ Active listening ___ Anointing ___ Taoist ___ Bereavement ___ Communion ___ Hannah exploration ___ ___ Life review _x__ Prayer ___ Reconciliation ___ Sacrament of Sick _x__ Supportive presence ___ Wedding ___ Other (describe below) Pastoral Comments
== END 2021-10-07 16:30 | disposition home or self-care (01) | DRG 175 ==
LOC: ED 12:29 → MS2 15:40
PROVIDERS: Admitting Provider Internal Medicine; Emergency Provider Emergency Medicine; PCP Internal Medicine; Visit Provider Internal Medicine
DX: I26.99 Other pulmonary embolism without acute cor pulmonale (principal); J96.01 Acute respiratory failure with hypoxia; J44.1 Chronic obstructive pulmonary disease with (acute) exacerbation; M48.54XA Collapsed vertebra, not elsewhere classified, thoracic region, initial encounter for fracture; D72.829 Elevated white blood cell count, unspecified; I10 Essential (primary) hypertension; E03.9 Hypothyroidism, unspecified; R32 Unspecified urinary incontinence; E10.9 Type 1 diabetes mellitus without complications; E78.5 Hyperlipidemia, unspecified; F17.210 Nicotine dependence, cigarettes, uncomplicated; Z79.4 Long term (current) use of insulin; Z96.41 Presence of insulin pump (external) (internal); Z79.899 Other long term (current) drug therapy; Z79.890 Hormone replacement therapy; Z66 Do not resuscitate
CPT/HCPCS: 36415; 71045; 71275; 80048; 80053; 83735; 83880; 84100; 84484; 85025; 85379; 87426; 87633; 87635; 93005; 93306; 94640; 99251; 99285; 99406; Q9967; U0005; A4216; G0463; U0003

== ENCOUNTER 2021-10-28 07:36 | Outpatient (CLI) | payer MEDICARE, OTHER, SELFPAY ==
--- NOTE | 2021-10-28 07:42 | MRI_ITS ---
STUDY: MRI THORACIC SPINE WITHOUT CONTRAST REASON FOR EXAM: Female, 76 years old. COMPRESSION FX TECHNIQUE: Standardized fat and water weighted pulse sequences were obtained in the sagittal and axial planes. COMPARISON: X-ray dated 10/28/2021 and 09/30/2021 FINDINGS: Normal kyphosis of the thoracic spine. There is no substantial scoliosis. T1-2, T2-3, T3-4, T4-5, T5-6, T6-7, T7-8, T8-9, T9-10, T10-11, T11-12: There are multilevel disc space narrowing and spondylosis. At T6/T7 is moderate disc space narrowing and endplate spondylosis with small disc herniation without significant central canal or foraminal stenosis. At T6 there is greater than 40% depression at the inferior endplate with edema, consistent with acute fracture. Compression has increased since the prior x-ray examination of 09/30/2021. There is no retropulsion. There is no demonstrated ligamentous injury. Additionally there is minimal (less than 5%) depression superior endplate of T7 with edema which may represent minimal superior endplate fracture as well. Normal visualized thoracic cord. MRI/Spine Thoracic (Routine) IMPRESSION: Acute T6 and T7 fractures Electronically Signed: Kt Pimentel MD at 9:31 EST Tel , Service support ,
--- NOTE | 2021-10-28 09:00 | RAD_ITS ---
STUDY: X-RAY - THORACIC SPINE REASON FOR EXAM: Female, 76 years old. BACK PAIN TECHNIQUE: 2 view(s) of the thoracic spine were obtained. COMPARISON: MRI of the thoracic spine 10/28/2021 and x-ray dated 09/30/2021. FINDINGS: There is an increase in the normal thoracic kyphosis. There is no substantial scoliosis. There is multilevel endplate spondylosis of the thoracic vertebrae. There is multilevel disc space narrowing of the thoracic spine. There is greater than 40% compression at T6. This demonstrated edema on the concurrent MRI which is consistent with acute fracture. Compression has increased since the prior x-ray examination of 09/30/2021. There is no demonstrated retropulsion. Please see dedicated MRI examination. RAD/Thoracic Spine 3 Views IMPRESSION: Increased T6 fracture. Electronically Signed: Kt Pimentel MD at 9:32 EST Tel , Service support ,
--- NOTE | 2021-10-28 09:00 | RAD_ITS ---
STUDY: X-RAY CHEST REASON FOR EXAM: Female, 76 years old. SOB TECHNIQUE: PA and lateral views of the chest. COMPARISON: 10/06/2021 FINDINGS: No change in the alveolar opacity in the lower right lung consistent with right lower lobe pneumonia or atelectasis. There is no demonstrated pleural abnormality. There is moderate cardiac enlargement. Normal mediastinum and uli. Normal visualized pulmonary arteries. Normal visualized aortic arch and descending thoracic aorta. Normal visualized thoracic spine. Normal visualized ribs, clavicles, and shoulders. There is no demonstrated abnormality of the visualized soft tissue structures of the upper abdomen. RAD/Chest PA and Lateral IMPRESSION: No change in right lower lobe pneumonia or atelectasis Electronically Signed: Cecilio Pelaez MD at 9:45 EST Tel , Service support ,
== END 2021-10-28 23:59 | disposition short-term general hospital (02) ==
LOC: MRI 07:38 → RAD 08:51
PROVIDERS: PCP Internal Medicine; Referring Provider Nurse Practitioner; Visit Provider Nurse Practitioner
DX: S22.059A Unspecified fracture of T5-T6 vertebra, initial encounter for closed fracture (principal); S22.069A Unspecified fracture of T7-T8 vertebra, initial encounter for closed fracture; X58.XXXA Exposure to other specified factors, initial encounter; R06.02 Shortness of breath
CPT/HCPCS: 71046; 72072; 72146

== ENCOUNTER 2021-11-17 21:39 | Inpatient (IN) | payer MEDICARE, OTHER, SELFPAY ==
[2021-11-17 21:40] VITALS: BP 138/42; PULSE 118; RESP 18; TEMP 36.8; O2SAT 96; BMI 26.9
[2021-11-17 21:42] VITALS: BP 138/42; PULSE 118; RESP 19; TEMP 37; O2SAT 97
--- NOTE | 2021-11-17 22:16 | CT_ITS ---
EXAM: CT Head Without Intravenous Contrast CLINICAL INDICATION: 76 years old, Female; altered mental status TECHNIQUE: Multiple axial images were obtained of the head without intravenous contrast. This CT exam was performed using one or more of the following dose reduction techniques: automated exposure control, adjustment of the mA and/or kV according to patient size, and/or use of iterative reconstruction technique. This report was created using [employer] report generation technology. COMPARISON: None. FINDINGS: Brain and extra-axial spaces: There are a few areas of decreased attenuation in the deep cerebral white matter consistent with mild small vessel ischemic/degenerative changes. The cerebral and cerebellar sulci are mildly prominent consistent with mild brain atrophy. No intra- or extra-axial hemorrhage. No intracranial mass or mass effect. Basal cisterns are patent. 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 No discrete lytic or blastic abnormalities. Vasculature: Atherosclerotic disease. Sinuses: Unremarkable as visualized. Clear. Mastoid air cells: Unremarkable. Clear. Orbits: Visualized globes, extraocular muscles, optic nerves and retrobulbar fat appear unremarkable. CT/Brain/Head without Contrast IMPRESSION: No acute findings in the head/brain. Electronically Signed: Jm Brunner MD at 23:12 RUST ,
--- NOTE | 2021-11-17 22:16 | EKG12_ITS ---
Test Reason : DYSRHYTHMIA Blood Pressure : / mmHG Vent. Rate : 123 BPM Atrial Rate : 123 BPM P-R Int : 154 ms QRS Dur : 086 ms QT Int : 316 ms P-R-T Axes : 074 090 033 degrees QTc Int : 452 ms Sinus tachycardia Nonspecific ST abnormality Abnormal ECG Confirmed by ANDREW MCKEON, HUGO ([id number]), newspaper or periodical editor RAYMUNDO CANTU ([id number]) on 11/19/2021 9:08:54 AM Referred By: TANVI Confirmed By:HUGO MORALES MD
--- NOTE | 2021-11-17 22:16 | RAD_ITS ---
EXAM: XR Chest, 1 View CLINICAL INDICATION: 76 years old, Female; altered mental status TECHNIQUE: Frontal view of the chest. This report was created using [employer] report generation technology. COMPARISON: None. FINDINGS: Lungs and pleural spaces: Unremarkable. No consolidation or edema. No pneumothorax. No effusion. Heart: Unremarkable. Cardiac silhouette not enlarged. Mediastinum: Central airways and mediastinal contour are unremarkable. Bones/joints: Unremarkable. Soft tissues: Calcified breast implants. Vasculature: Calcified aorta. RAD/Chest 1 View (Portable) IMPRESSION: No acute findings in the chest. Electronically Signed: Jm Brunner MD at 23:13 EST ,
[2021-11-17 22:27] LABS: Absolute Lymphocyte Count 0.75 X10^3/uL (0.83-4.51); Absolute Neutrophil Count 20.2 X10^3/uL (2.0-7.7); Basophil# 0.11 X10^3/uL; Basophil% 0.5 % (0-1); Hematocrit 43.2 % (37-47); Hemoglobin 13.6 g/dL (12.0-15.0); Lymphocyte # 0.75 X10^3/ul (0.83-4.51); Lymphocyte % 3.4 % (19-41); Mean Corp Hgb Conc 31.5 g/dL (32-36); Mean Corpuscular Hgb 27.8 pg (27.0-32.0); Mean Corpuscular Volume 88.2 fL (81-99); Mean Platelet Vol. 12.2 fl (6.2-12.0); Monocyte# 1.08 X10^3/uL; Monocyte% 4.8 % (0-10); NRBC Flagged by Analyzer 0 % (0-5); Neutrophil # 20.21 X10^3/uL (2.7-7.7); Neutrophil % 90.3 % (47-70); POSITIVE DIFFERENTIAL YES; Platelet Count 335 K/mm3 (150-450); RBC Distribution Width CV 15.6 % (11.6-14.6); RBC Distribution Width SD 50.4 fl (35.1-43.9); White Blood Count 22.4 K/mm3 (4.4-11.0)
[2021-11-17 22:34] LABS: Prothrombin Time (Protime)PT. 12.4 SECONDS (11.7-14.9)
--- NOTE | 2021-11-17 22:38 | EX.ED.DYSGE1 ---
HPI History of Present Illness Chief Complaint: General Illness Narrative Narrative: Patient is a 76-year-old female with past medical history of COPD who wears oxygen 16/05 but continues to smoke has diabetes on insulin pump and has a previous PE currently on blood thinners. Reportedly she is from [place] and is up here visiting a friend. He states this afternoon they ate soup around 4:00 and following this patient had bouts of vomiting. He states after she threw up she then had a change to her mental status. He states that he has been trying to get the patient awake for multiple hours with no improvement and secondary to this finally got her to the hospital for evaluation. The patient is obtunded upon arrival and will awaken to pain but quickly fall back asleep and cannot offer any further history. PFSH PFSH Medical History COPD (chronic obstructive pulmonary disease) Diabetes HLD (hyperlipidemia) HTN (hypertension) Hypothyroidism Osteopenia Pulmonary embolism, bilateral Smoker Home Medications albuterol sulfate 90 mcg/actuation aerosol inhaler 1 puff INHALATION ONCE PRN 09/08/21 [History Last Taken 10/05/21] amlodipine 5 mg-benazepril 10 mg capsule 1 cap PO DAILY 09/08/21 [History Last Taken 10/06/21] fluticasone 100 mcg-salmeterol 50 mcg/dose blistr powdr for inhalation 1 inh INHALATION BID PRN 09/08/21 [History Last Taken 10/05/21] insulin aspart U-100 100 unit/mL subcutaneous solution 100 unit CONTINUOUS SUBCUTANEOUS INFUSION .continuous ml 09/08/21 [History Last Taken 10/06/21] levothyroxine 112 mcg tablet 112 mcg PO DAILY 09/08/21 [History Last Taken 10/06/21] metoprolol succinate 50 mg tablet,extended release 24 hr 50 mg PO DAILY 09/08/21 [History Last Taken 10/06/21] oxybutynin chloride 5 mg tablet 10 mg PO DAILY tab 09/08/21 [History Last Taken 10/06/21] simvastatin 10 mg tablet 10 mg PO DAILY 09/08/21 [History Last Taken 10/05/21] apixaban [Eliquis DVT-PE Treat 30D Start] 5 mg PO BID #74 tab 10/07/21 [Rx Last Taken Unknown] Allergy/AdvReac Type Severity Reaction Status Date / Time ciprofloxacin [From Cipro] Allergy Intermediate hives Verified 11/17/21 21:43 Sulfa (Sulfonamide Allergy Intermediate hives Verified 11/17/21 21:43 Antibiotics) Family History (Updated 11/18/21 @ 00:[address] Roxanne Saxena MD) Father Diabetes Respiratory disease Surgical History (Updated 11/17/21 @ 22:[address] Roxanne Saxena MD) S/P insertion of insulin pump Social History (Updated 11/17/21 @ 22:[address] Roxanne Saxena MD) household members: none Smoking Status: Current every day smoker tobacco type: cigarettes Smoking packs per day: 0.5 Smoking cigarettes per day: 10.0 alcohol intake: current alcohol intake frequency: a few times a month substance use type: does not use ROS ROS ED Review of Systems ROS Unobtainable: due to mental status EXAM Physical Exam Const Vital Signs: 11/17/21 21:40 11/17/21 21:42 11/17/21 21:44 Temperature 98.2 F 98.6 F Temperature Source Temporal Temporal Pulse Rate 118 H 118 H Respiratory Rate 18 19 H Respiratory Effort Labored Blood Pressure 138/42 H 138/42 H Blood Pressure Mean 74 74 Pulse Ox 96 97 Oxygen Delivery Method Nasal Cannula Nasal Cannula Oxygen Flow Rate (L/min) 2 2 11/17/21 23:20 Temperature 98.2 F Temperature Source Temporal Pulse Rate 125 H Respiratory Rate 25 H Respiratory Effort Blood Pressure 123/37 H Blood Pressure Mean 65 Pulse Ox 98 Oxygen Delivery Method Nasal Cannula Oxygen Flow Rate (L/min) 2 Positive well nourished and well developed General Appearance ED: well developed Neck supple Neck Narrative: No meningeal signs noted Chest Wall palpation of chest normal Resp Resp Narrative: Breath sounds are diminished throughout with diffuse expiratory wheeze but no nasal flaring retractions tachypnea or accessory muscle use Cardio regular rate Rate: tachycardic and other Other Details: Tachycardic rate with regular rhythm. Radial pulses are +2-4 bilaterally they are equal and symmetric GI normal to inspection, nondistended, normoactive bowel sounds, non-tender and non-distended GI Narrative: No guarding or rigidity no pulsatile mass Auscultation: normoactive bowel sounds Palpation: soft Extremity normal to inspection Extremity Narrative: Patient is moving all extremities there is no obvious bony deformity or joint effusion or signs of trauma Neuro Neuro Narrative: Patient is obtunded with GCS of 11. She will awaken to pain but quickly fall back asleep. She is protecting her airway and has a gag reflex. She is moving all extremities. There is no obvious focal neurologic deficit. Skin no rashes or lesions noted and no wounds MDM MDM MDM Narrative Medical decision making narrative: Patient presented to the ER afebrile and normotensive but was tachycardic and was obtunded with GCS of 11. Despite this she was protecting her airway so I felt no need for intubation. Patient has a history of blood thinner use and Eliquis and with the friend reporting she began to vomit and then had altered mental status there is concern that she has a spontaneous brain bleed. A head CT was obtained which showed no acute intracranial issue. Blood work showed that she is in diabetic ketoacidosis with a glucose of 818 as well as decreased bicarb and elevated anion gap. Patient is also truly acidotic with a pH of 7.29. Her white count is elevated at 22.4 which could be stress response from the DKA but with concern for infection causing the issues I did elect to perform blood cultures and start her on Vanco and Zosyn. At this time as the change in mental status can be blamed on the DKA I do not feel there is a need for lumbar puncture. Patient was given 2 L of fluid based on her DKA and acute kidney injury. She was started on insulin drip as well. She will be placed in the ICU and as our access is limited a central line will be placed at this time. The patient had a right femoral vein central line placed. The patient was cleaned and prepped in sterile fashion. The vein was visualized under ultrasound. The vessel was cannulated and there is return of dark red nonpulsatile blood. The guidewire threaded without difficulty. The catheter was placed into the vessel and each port katy and flushed without difficulty either. Patient tolerated procedure well without complication Lab Data Attestation: I reviewed the patient's lab results. Labs: Laboratory Results - last 24 hr 11/17/21 11/17/21 11/17/21 22:00 22:00 22:00 WBC 22.4 H RBC 4.90 Hgb 13.6 Hct 43.2 MCV 88.2 MCH 27.8 MCHC 31.5 L RDW Std Deviation 50.4 H RDW Coeff of Kristyn 15.6 H Plt Count 335 MPV 12.2 H Immature Gran % (Auto) 1.000 H Neut % (Auto) 90.3 H Lymph % (Auto) 3.[address] [place] % (Auto) 4.8 Eos % (Auto) 0.0 Baso % (Auto) 0.5 Absolute Neuts (auto) 20.2 H Absolute Lymphs (auto) 0.75 L Nucleated RBC % 0 Differential Comment SCANNED PT 12.4 INR 1.0 APTT 26.1 Sodium 130 L Potassium 5.0 Chloride 87 L Carbon Dioxide 14.0 L Anion Gap 29 H BUN 50 H Creatinine 2.97 H Estim Creat Clear Calc 12.91 Est GFR (MDRD) Af Amer 20 L Est GFR (MDRD) Non-Af 16 L BUN/Creatinine Ratio 16.8 Glucose 818 H* Lactic Acid Calcium 10.0 Ammonia Troponin I High Sens 23 Procalcitonin TSH 20.80 H Urine Opiates Screen Urine Methadone Screen Ur Barbiturates Screen Ur Phencyclidine Scrn Ur Amphetamines Screen U Methamphetamin-MDMA U Benzodiazepines Scrn Urine Cocaine Screen U Cannabinoids Screen Ur Drug Screen Comment Acetone Level 11/17/21 11/17/21 11/17/21 22:00 22:00 22:00 WBC RBC Hgb Hct MCV MCH MCHC RDW Std Deviation RDW Coeff of Kristyn Plt Count MPV Immature Gran % (Auto) Neut % (Auto) Lymph % (Auto) [place] % (Auto) Eos % (Auto) Baso % (Auto) Absolute Neuts (auto) Absolute Lymphs (auto) Nucleated RBC % Differential Comment PT INR APTT Sodium Potassium Chloride Carbon Dioxide Anion Gap BUN Creatinine Estim Creat Clear Calc Est GFR (MDRD) Af Amer Est GFR (MDRD) Non-Af BUN/Creatinine Ratio Glucose Lactic Acid 5.1 H* Calcium Ammonia Troponin I High Sens Procalcitonin TSH Urine Opiates Screen POSITIVE H Urine Methadone Screen NEGATIVE Ur Barbiturates Screen NEGATIVE Ur Phencyclidine Scrn NEGATIVE Ur Amphetamines Screen NEGATIVE U Methamphetamin-MDMA NEGATIVE U Benzodiazepines Scrn NEGATIVE Urine Cocaine Screen NEGATIVE U Cannabinoids Screen NEGATIVE Ur Drug Screen Comment Acetone Level SMALL H 11/17/21 11/17/21 23:20 23:20 WBC RBC Hgb Hct MCV MCH MCHC RDW Std Deviation RDW Coeff of Kristyn Plt Count MPV Immature Gran % (Auto) Neut % (Auto) Lymph % (Auto) [place] % (Auto) Eos % (Auto) Baso % (Auto) Absolute Neuts (auto) Absolute Lymphs (auto) Nucleated RBC % Differential Comment PT INR APTT Sodium Potassium Chloride Carbon Dioxide Anion Gap BUN Creatinine Estim Creat Clear Calc Est GFR (MDRD) Af Amer Est GFR (MDRD) Non-Af BUN/Creatinine Ratio Glucose Lactic Acid Calcium Ammonia 15.0 Troponin I High Sens Procalcitonin 2.82 H TSH Urine Opiates Screen Urine Methadone Screen Ur Barbiturates Screen Ur Phencyclidine Scrn Ur Amphetamines Screen U Methamphetamin-MDMA U Benzodiazepines Scrn Urine Cocaine Screen U Cannabinoids Screen Ur Drug Screen Comment Acetone Level ABG Data ABG results: ABG 11/17/21 23:02 Specimen Type ART Sample Site R Radial pH 7.30 L Bicarbonate Actual 12.0 L Total CO2 13 Base Excess -15 L O2 Saturation 95 ABG pCO2 24.4 L ABG pO2 80 Danny Test Positive O2 Delivery Device Cannula Liter Flow 2.0 Radiography Diagnostic Testing: Clinical Impression(s) from Imaging Studies Brain CT 11/17/21 22:16 IMPRESSION: No acute findings in the head/brain. Electronically Signed: Jm Brunner MD at 23:12 EST , Chest X-Ray 11/17/21 22:16 IMPRESSION: No acute findings in the chest. Electronically Signed: Jm Brunner MD at 23:13 EST , Critical Care Time Critical Care Time: Yes Critical care time (excluding procedures): - (Please note critical care time of 33 minutes) Discharge Plan Triage Chief Complaint: General Illness ED Provider: Jimmie Pinto Dx/Rx/DC Orders Clinical Impression: DKA (diabetic ketoacidoses), THANIA (acute kidney injury), Encephalopathy acute Primary Care Provider: Shena Jeffers Disposition Disposition: Acute Care Hospital [facility] Discharge Date/Time: 11/18/21 01:11
[2021-11-17 22:44] LABS: Differential Indicated SCAN CRITERIA MET
[2021-11-17] MEDS: 0.9% Normal Saline 1,000 ML 999 ML IV ×2 (22:45→23:19)
[2021-11-17 22:53] LABS: Lactic Acid 5.1 mmol/L (0.4-1.9)
[2021-11-17 22:54] LABS: Anion Gap 29 (5-15); BUN 50 mg/dL (7-18); BUN/Creat Ratio 16.8 RATIO (10-20); Chloride 87 mmol/L (98-107); Creatinine, Serum 2.97 mg/dL (0.55-1.02); EST Glomerular Filtration Rate 16 mL/min (>60); Est Glom Filt Rate - Afr Amer 20 mL/min (>60); Estimated Creatinine Clearance 12.91 ml/min; Glucose 818 mg/dL (74-106); Sodium Level 130 mmol/L (136-145); Troponin-I HS 23 pg/mL (3.0-54.0)
[2021-11-17 22:59] LABS: Differential Comment SCANNED
[2021-11-17 23:07] LABS: Partial Thromboplast Time 26.1 Seconds (24.1-36.2)
[2021-11-17 23:11] LABS: Allen Test Positive; Base Excess -15 mmol/L (-2 to +2); Blood Gas Specimen Type ART; O2 Delivery Device Cannula; PO2 80 mmHG (75-100); SITE R Radial; SO2 95 % (95-99); Total Carbon Dioxide 13 mmol/L; pCO2 24.4 mmHg (35-45)
[2021-11-17 23:20] VITALS: BP 123/37; PULSE 125; PULSE 131; RESP 25; RESP 27; TEMP 36.8; O2SAT 95; O2SAT 98
[2021-11-17 23:29] LABS: Amphetamine Urine VISTA NEGATIVE (<1000 ng/mL); Barbiturate Urine VISTA NEGATIVE (< 200 ng/mL); Benzodiazepine Urine VISTA NEGATIVE (< 200 ng/mL); Cocaine Urine VISTA NEGATIVE (< 300 ng/mL); Ecstacy Urine VISTA NEGATIVE (< 500 ng/mL); Methadone Urine VISTA NEGATIVE (< 300 ng/mL); PCP Urine VISTA NEGATIVE (< 25 ng/mL); THC Urine VISTA NEGATIVE (< 50 ng/mL); Vista UDS pH Range 5
--- NOTE | 2021-11-17 23:46 | HP.PCM.HOS_ITS ---
HPI - General General Date of Admission: 11/17/21 Date of Service: 11/17/21 Chief Complaint: Intractable N/V, unresponsive HPI Narrative The patient is a 76 y/o F w/ PMHx: COPD with Chronic Hypoxic Respiratory Failure (2L NC), Tobacco use, Hypothyroidism, Hx VTE, HTN, HLD, IDDM with insulin pump following w/ Dr. Ceja, vaccinated and boosted against COVID-19 who presents to the [facility] ED on 11/17/21 via EMS secondary to unresponsiveness, found in her chair by her friend noted to be fine in the morning with onset of nausea and emesis throughout the afternoon and evening with blood sugar obtained by EMS noted to be 517 with ongoing confusion and decreased interactiveness prompting transition to the ED for evaluation. Patient's friend who is present states he did not eat the food she did and that she had had a mushroom soup for lunch. Work-up in the ED included T 98.6, heart rate 118, BP 138/42, respiratory rate 19, 97% on 2 L nasal cannula, CBC with WBC 22.4, hemoglobin 13.6, platelet 335 with significant left shift and lymphopenia, coags unremarkable, VBG with pH 7.30, bicarb 12, O2 saturation 95%, PCO2 24.4, PO2 80 on 2 L nasal cannula, BMP with sodium 130, chloride 87, carbon dioxide 14, anion gap 29, BUN/creatinine 50/2.97, glucose 818, lactic acid 5.1, [id number], TSH 20.8, urine drug screen with positive opiates, urinalysis requested but King placed in the ED and patient with no marked urine output therefore awaiting sample, ammonia level 15, acetone level small, chest x-ray with no acute cardiopulmonary findings, CT brain no acute intracranial findings, rapid COVID-19 antigen negative, blood culture x2 pending per ED. In the ED patient administered 2L NS, started on insulin drip and administered BSA vanc and zosyn for leukocytosis for possible infectious etiology. PFSH Medical History COPD (chronic obstructive pulmonary disease) Diabetes HLD (hyperlipidemia) HTN (hypertension) Hypothyroidism Osteopenia Pulmonary embolism, bilateral Smoker Home Medications albuterol sulfate 90 mcg/actuation aerosol inhaler 1 puff INHALATION ONCE PRN 09/08/21 [History Last Taken 10/05/21] amlodipine 5 mg-benazepril 10 mg capsule 1 cap PO DAILY 09/08/21 [History Last Taken 10/06/21] fluticasone 100 mcg-salmeterol 50 mcg/dose blistr powdr for inhalation 1 inh INHALATION BID PRN 09/08/21 [History Last Taken 10/05/21] insulin aspart U-100 100 unit/mL subcutaneous solution 100 unit CONTINUOUS SUBCUTANEOUS INFUSION .continuous ml 09/08/21 [History Last Taken 10/06/21] levothyroxine 112 mcg tablet 112 mcg PO DAILY 09/08/21 [History Last Taken 10/06/21] metoprolol succinate 50 mg tablet,extended release 24 hr 50 mg PO DAILY 09/08/21 [History Last Taken 10/06/21] oxybutynin chloride 5 mg tablet 10 mg PO DAILY tab 09/08/21 [History Last Taken 10/06/21] simvastatin 10 mg tablet 10 mg PO DAILY 09/08/21 [History Last Taken 10/05/21] apixaban [Eliquis DVT-PE Treat 30D Start] 5 mg PO BID #74 tab 10/07/21 [Rx Last Taken Unknown] Allergy/AdvReac Type Severity Reaction Status Date / Time ciprofloxacin [From Cipro] Allergy Intermediate hives Verified 11/17/21 21:43 Sulfa (Sulfonamide Allergy Intermediate hives Verified 11/17/21 21:43 Antibiotics) Family History (Updated 11/18/21 @ 00:[address] Roxanne Saxena MD) Father Diabetes Respiratory disease Surgical History (Updated 11/17/21 @ 22:[address] Roxanne Saxena MD) S/P insertion of insulin pump Social History (Updated 11/17/21 @ 22:[address] Roxanne Saxena MD) household members: none Smoking Status: Current every day smoker tobacco type: cigarettes Smoking packs per day: 0.5 Smoking cigarettes per day: 10.0 alcohol intake: current alcohol intake frequency: a few times a month substance use type: does not use ROS Review of Systems ROS Unobtainable: due to encephalopathy Vital Signs Vital Signs Vital Signs: 11/17/21 21:40 11/17/21 21:42 11/17/21 21:44 Temperature 98.2 F 98.6 F Temperature Source Temporal Temporal Pulse Rate 118 H 118 H Respiratory Rate 18 19 H Respiratory Effort Labored Blood Pressure 138/42 H 138/42 H Blood Pressure Mean 74 74 Pulse Ox 96 97 Oxygen Delivery Method Nasal Cannula Nasal Cannula Oxygen Flow Rate (L/min) 2 2 11/17/21 23:20 Temperature 98.2 F Temperature Source Temporal Pulse Rate 125 H Respiratory Rate 25 H Respiratory Effort Blood Pressure 123/37 H Blood Pressure Mean 65 Pulse Ox 98 Oxygen Delivery Method Nasal Cannula Oxygen Flow Rate (L/min) 2 Weight Weight: 152 lb 5.431 oz Body Mass Index (BMI) 26.9 Physical Exam Narrative Physical Examination: General: Awakens, not alert, not oriented, arouses to stimuli, moving spontaneously in the bed, mildly agitated. Skin: Normal color, normal turgor, no icterus, no cyanosis. HEENT: AT/NC, EOM unable to be assessed well as not following commands, difficult to assess pupils as patient is firmly closing her eyelids, dry MM, no carotid bruits or JVD noted, resists any opening of her eyelids but will do so for her friend who is present. Lungs: Diminished, greater bases, mildly increased respiratory rate with no evidence of distress, no rales, ronchi or wheezing. Heart: Tachycardic with regular rhythm; no gallop, rub audible. Abdomen: Soft, NTTP release no grimacing with palpation, ND, distant hyperactive BS, no HSM. Extremities: No cyanosis, clubbing, or edema. Neurological: Awakens, not alert, not oriented, arouses to stimuli, moving spontaneously in the bed, mildly agitated, cognitive function not baseline intact; difficult to assess pupils as patient is firmly closing her eyelids, difficult to assess cranial nerves as not following exam requests, moving extremities spontaneously. Psychiatric: Affect appears mildly agitated, moving in the bed, no acute evidence of depressive or anxiety feelings. Results Lab / Micro Data Result Diagrams: 11/17/21 22:00 11/17/21 22:00 Labs: Laboratory Results - last 24 hr 11/17/21 22:00: WBC 22.4 H, RBC 4.90, Hgb 13.6, Hct 43.2, MCV 88.2, MCH 27.8, MCHC 31.5 L, RDW Std Deviation 50.4 H, RDW Coeff of Kristyn 15.6 H, Plt Count 335, MPV 12.2 H, Immature Gran % (Auto) 1.000 H, Neut % (Auto) 90.3 H, Lymph % (Auto) 3.4 L, [place] % (Auto) 4.8, Eos % (Auto) 0.0, Baso % (Auto) 0.5, Absolute Neuts (auto) 20.2 H, Absolute Lymphs (auto) 0.75 L, Nucleated RBC % 0, Differential Comment SCANNED 11/17/21 22:00: PT 12.4, INR 1.0, APTT 26.1 11/17/21 22:00: Sodium 130 L, Potassium 5.0, Chloride 87 L, Carbon Dioxide 14.0 L, Anion Gap 29 H, BUN 50 H, Creatinine 2.97 H, Estim Creat Clear Calc 12.91, Est GFR (MDRD) Af Amer 20 L, Est GFR (MDRD) Non-Af 16 L, BUN/Creatinine Ratio 16.8, Glucose 818 H*, Calcium 10.0, Troponin I High Sens 23, TSH 20.80 H 11/17/21 22:00: Acetone Level SMALL H 11/17/21 22:00: Lactic Acid 5.1 H* 11/17/21 22:00: Urine Opiates Screen POSITIVE H, Urine Methadone Screen NEGATIVE, Ur Barbiturates Screen NEGATIVE, Ur Phencyclidine Scrn NEGATIVE, Ur Amphetamines Screen NEGATIVE, U Methamphetamin-MDMA NEGATIVE, U Benzodiazepines Scrn NEGATIVE, Urine Cocaine Screen NEGATIVE, U Cannabinoids Screen NEGATIVE, Ur Drug Screen Comment Micro: Microbiology 11/17/21 22:42 Nasal Secretion SARS-CoV-2 Antigen (Rapid) - Final ABG Data ABG results: ABG 11/17/21 23:02 Specimen Type ART Sample Site R Radial pH 7.30 L Bicarbonate Actual 12.0 L Total CO2 13 Base Excess -15 L O2 Saturation 95 ABG pCO2 24.4 L ABG pO2 80 Danny Test Positive O2 Delivery Device Cannula Liter Flow 2.[address] 11/17/21 22:16 IMPRESSION: No acute findings in the head/brain. Electronically Signed: Jm Brunner MD at 23:12 EST , Chest X-Ray 11/17/21 22:16 IMPRESSION: No acute findings in the chest. Electronically Signed: Jm Brunner MD at 23:13 EST , Assessment & Plan Assessment/Plan (1) DKA (diabetic ketoacidoses): QUALIFIERS: Diabetes mellitus complication detail: with coma Diabetes mellitus type: other specified (including YANELIS) Qualified Code(s): E13.11 - Other specified diabetes mellitus with ketoacidosis with coma (2) THANIA (acute kidney injury): PLAN: The patient is a 76 y/o F w/ PMHx: COPD with Chronic Hypoxic Respiratory Failure (2L NC), Tobacco use, Hypothyroidism, Hx VTE, HTN, HLD, IDDM with insulin pump following w/ Dr. Ceja, vaccinated and boosted against COVID-19 who presents to the [facility] ED on 11/17/21 via EMS secondary to unresponsiveness, found in her chair by her friend noted to be fine in the morning with onset of nausea and emesis throughout the afternoon and evening with blood sugar obtained by EMS noted to be 517 with ongoing confusion and decreased interactiveness prompting transition to the ED for evaluation. #1. Acute Encephalopathy secondary to DKA w/ IDDM with insulin pump with associated lactic acidosis: Will admit to the ICU, will hold insulin pump and continue on insulin drip, check serial K+, glucose w/ IVF changes pending these levels, serial chemistry, obtain mag, phos daily w/ repletion as needed, transition to home insulin pump regimen when gap closed, nutrition consultation. Encouraged diet and insulin regimen compliance. #2. Significant leukocytosis with left shift with unclear etiology: CBC with WBC 22.4 with left shift, urinalysis pending for full placed in the ED and not marked urine output, chest x-ray with no acute cardiopulmonary findings, rapid Covid antigen negative, procalcitonin requested. Patient administered Vanc and Zosyn in the ED, will defer further abx therapy given possibly secondary to acute presentation #1, #3. #3. Acute kidney injury: Secondary to acute presentation #1 with significant GI losses with recent nausea and emesis. Admission BUN/Cr 50/2.97, prior baseline creatinine noted to be 0.8. Will continue to aggressively hydrate, hold nephrotoxic medications and repeat chemistry in AM. If no improvement would plan FeNa and renal ultrasound assessment. Urinalysis pending. #4. Hypothyroidism with elevated TSH: TSH 20.80, will continue levothyroxine once oral intake appropriate with pending free T4 level. #5. History 09/2021 bilateral PE: We will continue patient on apixaban regimen once oral intake appropriate however if necessary may transition to therapeutic Lovenox versus heparin drip in the interim. #6. Chronic COPD with chronic hypoxic respiratory failure: Will maintain on home oxygen supplementation, hold home inhalers, transition in the interim to ATC duonebs, PRN albuterol, HOB, IS parameters. #7. Tobacco Abuse: Encouraged cessation, inpatient consultation per RT, NR if desired. #8. Hypertension: Continue home regimen including amlodipine once oral intake appropriate, hold CAROL inhibitor given acute kidney injury as noted, PRN hydralaz ine. #9. Hyperlipidemia: We will continue patient on statin therapy once oral intake appropriate. #10. Urinary incontinence: Continue patient home oxybutynin regimen once oral intake appropriate. #11. DVT prophylaxis: SCDs, will continue patient home apixaban regimen once oral intake appropriate however prolonged may need to transition to heparin drip versus therapeutic Lovenox. Charges/Coding Visit Charges Inpatient E&M: 04137 Init Hosp L3
[2021-11-17] MEDS: Vancomycin IV 1,000 MG/200 ML BAG 200 MG IV (23:57)
[2021-11-18] VITALS (33 sets, daily range): BP systolic 111–164; BP diastolic 38–102; PULSE 89–138; RESP 12–29; TEMP 36.2–37.2; O2SAT 92–100; BMI 27.8
[2021-11-18 00:18] LABS: Magnesium 2.4 mg/dL (1.6-2.6)
[2021-11-18 00:27] LABS: Procalcitonin 2.82 ng/mL (0.00-0.09)
[2021-11-18 00:46] LABS: Bedside Glucose > 500 mg/dL (70-110)
[2021-11-18 01:46] LABS: Bedside Glucose > 500 mg/dL (70-110)
[2021-11-18] MEDS: 0.9% Normal Saline 1,000 ML 999 ML IV (01:48)
[2021-11-18 02:23] LABS: Mucous, Urine 0 SEEN /hpf (<or=2+); Red Blood Cells-Urine 0 SEEN /hpf (0-5); Squamous Epithelial Cells - UA 0 SEEN /hpf (5-10)
[2021-11-18 02:24] LABS: Color, Urine Yellow (Yellow); Glucose, Dipstick 1000 mg/dl (Normal); Ketone-Dipstick 50 mg/dl (Negative); Leukocyte Esterase-Dipstick Negative /ul (Negative); Nitrite-Dipstick Negative (Negative); Occult Blood-Urine 25 /ul (Negative); Protein-Dipstick 30 mg/dl (Negative); Urine Bilirubin Dipstick Negative (Negative); Urine Clarity Clear (Clear); Urine Urobilinogen Normal (Normal)
[2021-11-18 02:25] LABS: Reflex Lactate? Y
[2021-11-18 02:35] LABS: Bacteria RARE /hpf (None Seen); White Blood Cells 0-5 SEEN /hpf (0-5)
[2021-11-18 02:41] LABS: Anion Gap 27 (5-15); BUN 52 mg/dL (7-18); BUN/Creat Ratio 17.4 RATIO (10-20); Calcium,Total 8.4 mg/dL (8.5-10.1); Chloride 97 mmol/L (98-107); Creatinine, Serum 2.99 mg/dL (0.55-1.02); EST Glomerular Filtration Rate 16 mL/min (>60); Est Glom Filt Rate - Afr Amer 20 mL/min (>60); Estimated Creatinine Clearance 12.26 ml/min; Glucose 703 mg/dL (74-106); Potassium 3.9 mmol/L (3.5-5.1); Sodium Level 136 mmol/L (136-145)
--- NOTE | 2021-11-18 02:49 | PCM.RX.CS ---
Consult Pharmacy has been consulted to manage selected antiobiotic: Vancomycin Type of Consult: New start Suspected Infection: Other Prior Doses of Antibiotics Received/Current Regimen: Medications Discontinued Medications Vancomycin HCl (Vancomycin) 1,000 mg in 200 mls @ 200 mls/hr 15 mg/kg (1000 mg) IV X1 ONE Stop: 11/17/21 23:50 Last Admin: 11/18/21 01:30 Dose: Infused Labs: Sodium 136 mmol/L (136-145) 11/18/21 01:43 Potassium 3.9 mmol/L (3.5-5.1) 11/18/21 01:43 Chloride 97 mmol/L (98-107) L 11/18/21 01:43 Carbon Dioxide 12.0 mmol/L (21.0-32.0) L 11/18/21 01:43 Anion Gap 27 (5-15) H 11/18/21 01:43 BUN 52 mg/dL (7-18) H 11/18/21 01:43 Creatinine 2.99 mg/dL (0.55-1.02) H 11/18/21 01:43 Est GFR (MDRD) Af Amer 20 mL/min (>60) L 11/18/21 01:43 Est GFR (MDRD) Non-Af 16 mL/min (>60) L 11/18/21 01:43 BUN/Creatinine Ratio 17.4 RATIO (10-20) 11/18/21 01:43 Glucose 703 mg/dL (74-106) H* 11/18/21 01:43 Microbiology: Microbiology 11/17/21 22:42 Nasal Secretion SARS-CoV-2 Antigen (Rapid) - Final Weight used for dosin.9 kg Estimated Creatinine Clearance: 12.3 Goal Trough: 15-20 mcg/mL Pharmacy Plan for Drug Dosing: Initial vancomycin dose of 1000mg was given in ED 11/17/21 @6673. Since her current CrCl<20 (at 12.3), a random vanco level will be drawn with the morning labs on 11/19 to determine further dosing. Pharmacy Service will continue to monitor and adjust dosing as required. Follow-Up Labs: Trough Vancomycin - random Labs to be done on [date and time ordered]: 11/19/21 @0600 random
[2021-11-18] MEDS: 0.9% Normal Saline 1,000 ML 150 ML IV ×3 (02:58→16:15)
[2021-11-18 03:19] LABS: Anion Gap 21 (5-15); BUN 49 mg/dL (7-18); BUN/Creat Ratio 17.4 RATIO (10-20); Calcium,Total 8.1 mg/dL (8.5-10.1); Chloride 101 mmol/L (98-107); Creatinine, Serum 2.82 mg/dL (0.55-1.02); EST Glomerular Filtration Rate 17 mL/min (>60); Est Glom Filt Rate - Afr Amer 21 mL/min (>60); Glucose 622 mg/dL (74-106); Potassium 3.7 mmol/L (3.5-5.1); Sodium Level 137 mmol/L (136-145)
[2021-11-18 04:20] LABS: Hematocrit 33.9 % (37-47); Hemoglobin 11.2 g/dL (12.0-15.0); Mean Corpuscular Hgb 28.1 pg (27.0-32.0); Mean Corpuscular Volume 85.2 fL (81-99); Mean Platelet Vol. 11.4 fl (6.2-12.0); POSITIVE DIFFERENTIAL YES; POSITIVE MORPHOLOGY YES; Platelet Count 280 K/mm3 (150-450); RBC Distribution Width CV 15.3 % (11.6-14.6); RBC Distribution Width SD 47.1 fl (35.1-43.9); Red Blood Count 3.98 M/mm3 (4.2-5.4); White Blood Count 23.6 K/mm3 (4.4-11.0)
[2021-11-18 04:36] LABS: M R Staph aureus DNA By PCR Negative (Negative); Probe Check PASS; Specimen Processing Control PASS
[2021-11-18 04:39] LABS: Anisocytosis 1+
[2021-11-18 04:40] LABS: Scan Smear per Review Criteria MANUAL DIFF
[2021-11-18 04:41] LABS: Differential Indicated MANUAL DIFF
[2021-11-18 04:43] LABS: Absolute Lymphocyte Count 0.47 X10^3/uL (0.83-4.51); Absolute Neutrophil Count 21.5 X10^3/uL (2.0-7.7); Lymphocyte 2 % (19-41); Monocyte 7 % (0-10); Neutrophil-Segmented 91 % (47-70); Platelet Estimate ADEQUATE (ADEQ); Total Cells Counted 100 (MANUAL DIFF)
[2021-11-18 04:44] LABS: Red Cell Morphology NORM C+C NORMAL (NORM C&C)
[2021-11-18 04:56] LABS: Lactic Acid 2.4 mmol/L (0.4-1.9)
[2021-11-18 05:00] LABS: Bedside Glucose > 500 mg/dL (70-110)
[2021-11-18 05:00] LABS: Bedside Glucose > 500 mg/dL (70-110)
[2021-11-18 05:06] LABS: Anion Gap 16 (5-15); BUN 47 mg/dL (7-18); BUN/Creat Ratio 17.7 RATIO (10-20); Calcium,Total 8.3 mg/dL (8.5-10.1); Chloride 103 mmol/L (98-107); Creatinine, Serum 2.65 mg/dL (0.55-1.02); EST Glomerular Filtration Rate 19 mL/min (>60); Est Glom Filt Rate - Afr Amer 22 mL/min (>60); Estimated Creatinine Clearance 13.84 ml/min; Glucose 522 mg/dL (74-106); Potassium 3.7 mmol/L (3.5-5.1); Sodium Level 137 mmol/L (136-145); T4 Free Direct 1.15 ng/dL (0.76-1.46)
--- NOTE | 2021-11-18 06:47 | EX.PCM.CONCC ---
Assessment & Plan Assessment/Plan (1) Encephalopathy acute: (2) THANIA (acute kidney injury): (3) DKA (diabetic ketoacidoses): QUALIFIERS: Diabetes mellitus complication detail: with coma Diabetes mellitus type: other specified (including YANELIS) Qualified Code(s): E13.11 - Other specified diabetes mellitus with ketoacidosis with coma PLAN: RECOMMENDATIONS: 1. Continue supplemental IV fluids and continuous insulin infusion until anion gap has been closed x2. 2. Aggressive electrolyte repletion. 3. Continue empiric antimicrobials for 24 hours, pending culture results. 4. Continue Eliquis. If the patient is unable to tolerate p.o. intake, start Lovenox or weight-based heparin infusion. 5. Continue scheduled bronchodilators. IMPRESSIONS: 1. Diabetic ketoacidosis Continue routine protocol eyes management with supplemental IV fluid hydration, aggressive electrolyte repletion and continuous insulin infusion until anion gap has been closed x2. The patient is to remain n.p.o. for now. Although no discernible infectious etiology has yet to be identified, will continue antimicrobials for 24 hours, pending culture results. 2. Encephalopathy Likely metabolic in etiology and related to #1. CT head was unremarkable. Anticipate further improvement in mentation with correction of underlying metabolic derangements. 3. Acute kidney injury Prerenal in etiology. Continue volume expansion continue to monitor urine output. No current indication for renal replacement therapy. 4. Recent history of pulmonary emboli Continue systemic anticoagulation with Eliquis. If the patient is unable to tolerate p.o. intake, consider initiation of Lovenox or heparin infusion. 5. History of COPD/chronic tobacco dependency/hypothyroidism/hypertension/hyperlipidemia Complicates care, management, recovery and prognosis. Continue home medications as indicated. Smoking cessation is advisable. This note was generated with [employer] dictation software. It may contain incorrect words, spelling, and punctuation that were not noted in checking the note before signing. HPI Consult Data Date of Consult: 11/18/21 HPI Narrative Reason for Consultation: DKA, encephalopathy HPI Narrative: The patient is a 76-year-old female, with a history as outlined below, who presented to the emergency department via EMS on November 17 with altered mentation. Per EMS documentation, the patient had apparently been vomiting throughout the day yesterday and was hyperglycemic upon their arrival. The patient has a history of COPD, chronic hypoxemic respiratory failure, recent venous thromboembolic disease and hypertension. On presentation to the emergency department, the patient was noted to be afebrile and hemodynamically stable. Initial laboratory evaluation revealed a white blood cell count of 23,000. Coagulation profile was unremarkable. Chemistry profile was notable for a sodium of 130, chloride of 87, bicarbonate of 14 and creatinine of 2.97. Glucose was elevated to 818 with a lactate of 5.1. TSH was elevated at 21. Free T4 was normal. CT head was unremarkable. Chest x-ray showed no acute cardiopulmonary process. Toxicology screen was positive for opiates. Small serum acetone level was noted. Rapid Covid antigen testing was negative. The patient was started on antimicrobials, supplemental IV fluids and a continuous insulin infusion. She was admitted to the medical intensive care unit for further management. [facility] Medical History COPD (chronic obstructive pulmonary disease) Diabetes HLD (hyperlipidemia) HTN (hypertension) Hypothyroidism Osteopenia Pulmonary embolism, bilateral Smoker Home Medications albuterol sulfate 90 mcg/actuation aerosol inhaler 1 puff INHALATION ONCE PRN 09/08/21 [History Last Taken 10/05/21] amlodipine 5 mg-benazepril 10 mg capsule 1 cap PO DAILY 09/08/21 [History Last Taken 10/06/21] fluticasone 100 mcg-salmeterol 50 mcg/dose blistr powdr for inhalation 1 inh INHALATION BID PRN 09/08/21 [History Last Taken 10/05/21] insulin aspart U-100 100 unit/mL subcutaneous solution 100 unit CONTINUOUS SUBCUTANEOUS INFUSION .continuous ml 09/08/21 [History Last Taken 10/06/21] levothyroxine 112 mcg tablet 112 mcg PO DAILY 09/08/21 [History Last Taken 10/06/21] metoprolol succinate 50 mg tablet,extended release 24 hr 50 mg PO DAILY 09/08/21 [History Last Taken 10/06/21] oxybutynin chloride 5 mg tablet 10 mg PO DAILY tab 09/08/21 [History Last Taken 10/06/21] simvastatin 10 mg tablet 10 mg PO DAILY 09/08/21 [History Last Taken 10/05/21] apixaban [Eliquis DVT-PE Treat 30D Start] 5 mg PO BID #74 tab 10/07/21 [Rx Last Taken Unknown] Allergy/AdvReac Type Severity Reaction Status Date / Time ciprofloxacin [From Cipro] Allergy Intermediate hives Verified 11/17/21 21:43 Sulfa (Sulfonamide Allergy Intermediate hives Verified 11/17/21 21:43 Antibiotics) Family History (Updated 11/18/21 @ 00:[address] Roxanne Saxena MD) Father Diabetes Respiratory disease Surgical History (Updated 11/17/21 @ 22:[address] Roxanne Saxena MD) S/P insertion of insulin pump Social History (Updated 11/17/21 @ 22:[address] Roxanne Saxena MD) household members: none Smoking Status: Current every day smoker tobacco type: cigarettes alcohol intake: current alcohol intake frequency: a few times a month substance use type: does not use ROS Review of Systems ROS Unobtainable: due to mental condition and due to mental status Physical Exam Const no apparent distress Constitutional Narrative: Awakens to verbal stimulation and falls quickly back to sleep. HEENT normocephalic and head/scalp atraumatic Eyes PERRL, EOMs intact bilaterally and conjunctivae normal Neck supple General: trachea midline Chest inspection of chest normal Resp Auscultation: diminished lung sounds; Negative for rales, rhonchi or wheezes Cardio regular rate and regular rhythm GI normal to inspection, nondistended, normoactive bowel sounds Extremity no clubbing, cyanosis or edema Skin no rashes or lesions noted Neuro Neuro Narrative: Somnolent Psych Mood & Affect: flat affect Lab / Micro Data Result Diagrams: 11/18/21 04:07 11/18/21 09:15 Labs: Laboratory Results - last 24 hr 11/17/21 22:00: WBC 22.4 H, RBC 4.90, Hgb 13.6, Hct 43.2, MCV 88.2, MCH 27.8, MCHC 31.5 L, RDW Std Deviation 50.4 H, RDW Coeff of Kristyn 15.6 H, Plt Count 335, MPV 12.2 H, Immature Gran % (Auto) 1.000 H, Neut % (Auto) 90.3 H, Lymph % (Auto) 3.4 L, [place] % (Auto) 4.8, Eos % (Auto) 0.0, Baso % (Auto) 0.5, Absolute Neuts (auto) 20.2 H, Absolute Lymphs (auto) 0.75 L, Nucleated RBC % 0, Differential Comment SCANNED 11/17/21 22:00: PT 12.4, INR 1.0, APTT 26.1 11/17/21 22:00: Sodium 130 L, Potassium 5.0, Chloride 87 L, Carbon Dioxide 14.0 L, Anion Gap 29 H, BUN 50 H, Creatinine 2.97 H, Estim Creat Clear Calc 12.91, Est GFR (MDRD) Af Amer 20 L, Est GFR (MDRD) Non-Af 16 L, BUN/Creatinine Ratio 16.8, Glucose 818 H*, Calcium 10.0, Troponin I High Sens 23, TSH 20.80 H 11/17/21 22:00: Acetone Level SMALL H 11/17/21 22:00: Lactic Acid 5.1 H* 11/17/21 22:00: Urine Opiates Screen POSITIVE H, Urine Methadone Screen NEGATIVE, Ur Barbiturates Screen NEGATIVE, Ur Phencyclidine Scrn NEGATIVE, Ur Amphetamines Screen NEGATIVE, U Methamphetamin-MDMA NEGATIVE, U Benzodiazepines Scrn NEGATIVE, Urine Cocaine Screen NEGATIVE, U Cannabinoids Screen NEGATIVE, Ur Drug Screen Comment 11/17/21 23:20: Ammonia 15.0 11/17/21 23:20: Procalcitonin 2.82 H 11/17/21 23:55: Phosphorus 8.0 H, Magnesium 2.4 11/18/21 00:41: POC Glucose > 500 H* 11/18/21 01:39: POC Glucose > 500 H* 11/18/21 01:43: Sodium 136, Potassium 3.9, Chloride 97 L, Carbon Dioxide 12.0 L, Anion Gap 27 H, BUN 52 H, Creatinine 2.99 H, Estim Creat Clear Calc 12.26, Est GFR (MDRD) Af Amer 20 L, Est GFR (MDRD) Non-Af 16 L, BUN/Creatinine Ratio 17.4, Glucose 703 H*, Calcium 8.4 L 11/18/21 01:59: Urine Color Yellow, Urine Clarity Clear, Urine pH 5.0, Ur Specific [place] 1.020, Urine Protein 30 H, Urine Glucose (UA) 1000 H, Urine Ketones 50 H, Urine Occult Blood 25 H, Urine Nitrite Negative, Urine Bilirubin Negative, Urine Urobilinogen Normal, Ur Leukocyte Esterase Negative, Urine RBC 0 SEEN, Urine WBC 0-5 SEEN, Ur Squamous Epith Cells 0 SEEN, Urine Bacteria RARE, Urine Mucus 0 SEEN 11/18/21 02:15: MRSA (PCR) Negative 11/18/21 02:44: POC Glucose > 500 H* 11/18/21 02:47: Sodium 137, Potassium 3.7, Chloride 101, Carbon Dioxide 15.0 L, Anion Gap 21 H, BUN 49 H, Creatinine 2.82 H, Estim Creat Clear Calc 13.00, Est GFR (MDRD) Af Amer 21 L, Est GFR (MDRD) Non-Af 17 L, BUN/Creatinine Ratio 17.4, Glucose 622 H*, Calcium 8.1 L 11/18/21 03:30: Lactic Acid 2.4 H* 11/18/21 04:03: POC Glucose > 500 H* 11/18/21 04:07: Sodium 137, Potassium 3.7, Chloride 103, Carbon Dioxide 18.0 L, Anion Gap 16 H, BUN 47 H, Creatinine 2.65 H, Estim Creat Clear Calc 13.84, Est GFR (MDRD) Af Amer 22 L, Est GFR (MDRD) Non-Af 19 L, BUN/Creatinine Ratio 17.7, Glucose 522 H*, Calcium 8.3 L, Free T4 1.15 11/18/21 04:07: WBC 23.6 H, RBC 3.98 L, Hgb 11.2 L, Hct 33.9 L, MCV 85.2, MCH 28.1, MCHC 33.0, RDW Std Deviation 47.1 H, RDW Coeff of Kristyn 15.3 H, Plt Count 280, MPV 11.4, Immature Gran % (Auto) PROCESSOR INSPECTOR, Neut % (Auto) PROCESSOR INSPECTOR, Lymph % (Auto) PROCESSOR INSPECTOR, [place] % (Auto) PROCESSOR INSPECTOR, Eos % (Auto) PROCESSOR INSPECTOR, Baso % (Auto) PROCESSOR INSPECTOR, Absolute Neuts (auto) 21.5 H, Absolute Lymphs (auto) 0.47 L, Total Counted 100, Neutrophils % (Manual) 91 H, Lymphocytes % (Manual) 2 L, Monocytes % (Manual) 7, Nucleated RBC % PROCESSOR INSPECTOR, Diff Path Review February, Platelet Estimate ADEQUATE, RBC Morphology NORM C+C, Anisocytosis 1+ Micro: Microbiology 11/17/21 22:42 Nasal Secretion SARS-CoV-2 Antigen (Rapid) - Final ABG Data ABG results: ABG 11/17/21 23:02 Specimen Type ART Sample Site R Radial pH 7.30 L Bicarbonate Actual 12.0 L Total CO2 13 Base Excess -15 L O2 Saturation 95 ABG pCO2 24.4 L ABG pO2 80 Danny Test Positive O2 Delivery Device Cannula Liter Flow 2.[address] 11/17/21 22:16 IMPRESSION: No acute findings in the head/brain. Electronically Signed: Jm Brunner MD at 23:12 EST , Chest X-Ray 11/17/21 22:16 IMPRESSION: No acute findings in the chest. Electronically Signed: Jm Brunner MD at 23:13 EST , Charges/Coding Visit Charges Inpatient E&M: 25220 Init Hosp L3
--- NOTE | 2021-11-18 07:17 | PN.HOSP_ITS ---
Subjective Subjective Patient was admitted in ICU after she was brought into ED by EMS for not responding appropriately. Patient had motion of the shoulder in the morning and vomited 5-6 times throughout the afternoon and evening. Blood sugar read was 117. Patient was also breathing deep and fast. The patient also history of COPD and wears oxygen 16/05. She smokes cigarette 1 pack/day. Patient had anion gap 29, bicarb 14 and ABG consistent with increased anion gap metabolic acidosis. Acetone positive. Lactic acid 5.1. High anion gap metabolic acidosis and mild respiratory alkalosis. Objective Data Objective Data Vital Signs: Vital Signs Temp Pulse Resp BP Pulse Ox 98.2 F 101 H 20 H 126/45 H 94 11/18/21 04:00 11/18/21 06:00 11/18/21 06:00 11/18/21 06:00 11/18/21 06:00 Oxygen Flow Rate (L/min) 2 Oxygen Delivery Method Nasal Cannula Weight: 152 lb 5.431 oz Body Mass Index (BMI) 27.8 Intake & Output: Intake and Output for Last 24 Hours 11/16/21 11/17/21 11/18/21 23:59 23:59 23:59 Intake Total 50 / 50 3227.22 / 3227.22 Output Total 550 / 550 Balance 50 / 50 2677.22 / 2677.22 Lab / Micro Data Result Diagrams: 11/18/21 04:07 11/18/21 09:15 Labs: Laboratory Results - last 24 hr 11/17/21 22:00: WBC 22.4 H, RBC 4.90, Hgb 13.6, Hct 43.2, MCV 88.2, MCH 27.8, MCHC 31.5 L, RDW Std Deviation 50.4 H, RDW Coeff of Kristyn 15.6 H, Plt Count 335, MPV 12.2 H, Immature Gran % (Auto) 1.000 H, Neut % (Auto) 90.3 H, Lymph % (Auto) 3.4 L, [place] % (Auto) 4.8, Eos % (Auto) 0.0, Baso % (Auto) 0.5, Absolute Neuts (auto) 20.2 H, Absolute Lymphs (auto) 0.75 L, Nucleated RBC % 0, Differential Comment SCANNED 11/17/21 22:00: PT 12.4, INR 1.0, APTT 26.1 11/17/21 22:00: Sodium 130 L, Potassium 5.0, Chloride 87 L, Carbon Dioxide 14.0 L, Anion Gap 29 H, BUN 50 H, Creatinine 2.97 H, Estim Creat Clear Calc 12.91, Est GFR (MDRD) Af Amer 20 L, Est GFR (MDRD) Non-Af 16 L, BUN/Creatinine Ratio 16.8, Glucose 818 H*, Calcium 10.0, Troponin I High Sens 23, TSH 20.80 H 11/17/21 22:00: Acetone Level SMALL H 11/17/21 22:00: Lactic Acid 5.1 H* 11/17/21 22:00: Urine Opiates Screen POSITIVE H, Urine Methadone Screen NEGATIVE, Ur Barbiturates Screen NEGATIVE, Ur Phencyclidine Scrn NEGATIVE, Ur Amphetamines Screen NEGATIVE, U Methamphetamin-MDMA NEGATIVE, U Benzodiazepines Scrn NEGATIVE, Urine Cocaine Screen NEGATIVE, U Cannabinoids Screen NEGATIVE, Ur Drug Screen Comment 11/17/21 23:20: Ammonia 15.0 11/17/21 23:20: Procalcitonin 2.82 H 11/17/21 23:55: Phosphorus 8.0 H, Magnesium 2.4 11/18/21 00:41: POC Glucose > 500 H* 11/18/21 01:39: POC Glucose > 500 H* 11/18/21 01:43: Sodium 136, Potassium 3.9, Chloride 97 L, Carbon Dioxide 12.0 L, Anion Gap 27 H, BUN 52 H, Creatinine 2.99 H, Estim Creat Clear Calc 12.26, Est GFR (MDRD) Af Amer 20 L, Est GFR (MDRD) Non-Af 16 L, BUN/Creatinine Ratio 17.4, Glucose 703 H*, Calcium 8.4 L 11/18/21 01:59: Urine Color Yellow, Urine Clarity Clear, Urine pH 5.0, Ur Specific [place] 1.020, Urine Protein 30 H, Urine Glucose (UA) 1000 H, Urine Ketones 50 H, Urine Occult Blood 25 H, Urine Nitrite Negative, Urine Bilirubin Negative, Urine Urobilinogen Normal, Ur Leukocyte Esterase Negative, Urine RBC 0 SEEN, Urine WBC 0-5 SEEN, Ur Squamous Epith Cells 0 SEEN, Urine Bacteria RARE, Urine Mucus 0 SEEN 11/18/21 02:15: MRSA (PCR) Negative 11/18/21 02:44: POC Glucose > 500 H* 11/18/21 02:47: Sodium 137, Potassium 3.7, Chloride 101, Carbon Dioxide 15.0 L, Anion Gap 21 H, BUN 49 H, Creatinine 2.82 H, Estim Creat Clear Calc 13.00, Est GFR (MDRD) Af Amer 21 L, Est GFR (MDRD) Non-Af 17 L, BUN/Creatinine Ratio 17.4, Glucose 622 H*, Calcium 8.1 L 11/18/21 03:30: Lactic Acid 2.4 H* 11/18/21 04:03: POC Glucose > 500 H* 11/18/21 04:07: Sodium 137, Potassium 3.7, Chloride 103, Carbon Dioxide 18.0 L, Anion Gap 16 H, BUN 47 H, Creatinine 2.65 H, Estim Creat Clear Calc 13.84, Est GFR (MDRD) Af Amer 22 L, Est GFR (MDRD) Non-Af 19 L, BUN/Creatinine Ratio 17.7, Glucose 522 H*, Calcium 8.3 L, Free T4 1.15 11/18/21 04:07: WBC 23.6 H, RBC 3.98 L, Hgb 11.2 L, Hct 33.9 L, MCV 85.2, MCH 28.1, MCHC 33.0, RDW Std Deviation 47.1 H, RDW Coeff of Kristyn 15.3 H, Plt Count 280, MPV 11.4, Immature Gran % (Auto) PLUMBER PIPE FITTING, Neut % (Auto) PLUMBER PIPE FITTING, Lymph % (Auto) PLUMBER PIPE FITTING, [place] % (Auto) PLUMBER PIPE FITTING, Eos % (Auto) PLUMBER PIPE FITTING, Baso % (Auto) PLUMBER PIPE FITTING, Absolute Neuts (auto) 21.5 H, Absolute Lymphs (auto) 0.47 L, Total Counted 100, Neutrophils % (Manual) 91 H , Lymphocytes % (Manual) 2 L, Monocytes % (Manual) 7, Nucleated RBC % PLUMBER PIPE FITTING, Diff Path Review February, Platelet Estimate ADEQUATE, RBC Morphology NORM C+C, Anisocytosis 1+ Micro: Microbiology 11/17/21 22:42 Nasal Secretion SARS-CoV-2 Antigen (Rapid) - Final ABG Data ABG results: ABG 11/17/21 23:02 Specimen Type ART Sample Site R Radial pH 7.30 L Bicarbonate Actual 12.0 L Total CO2 13 Base Excess -15 L O2 Saturation 95 ABG pCO2 24.4 L ABG pO2 80 Danny Test Positive O2 Delivery Device Cannula Liter Flow 2.0 Radiography Diagnostic Testing: Radiology Impression Brain CT 11/17/21 22:16 IMPRESSION: No acute findings in the head/brain. Electronically Signed: Jm Brunner MD at 23:12 EST , Chest X-Ray 11/17/21 22:16 IMPRESSION: No acute findings in the chest. Electronically Signed: Jm Brunner MD at 23:13 EST , Physical Exam Narrative General: Lethargic, Confused and disoriented. Wake up to verbal command but again closes eyes HEENT: Atraumatic, PERRLA, EOMI, Normocephalic Oral: Oral mucosa dry. No Gingival or Mucosal Lesions/ Ulcerations Neck: Supple, No JVD, Negative Carotid Bruits Lungs: Air entry diminished in bilateral lung bases. No crepitation/rhonchi Cardiovascular: Regular rate, Regular Rhythm, Normal S1, Normal S2, No murmurs Abdomen: Bowel Sounds sluggish, Soft, Non Tender, Non-Distended : No renal angle tenderness. No suprapubic tenderness. Extremities: No edema, Capillary Refill Less than 3 Seconds Skin: No rashes, No breakdown Musculoskeletal: No Tenderness to Palpation of Joints or Extremities Neurological: Cranial nerves II-XII grossly intact, DTR 2+/4 and Symmetrical, Neuro grossly intact Psych/Mental Status: Flat affect. Assessment & Plan Assessment/Plan (1) DKA (diabetic ketoacidoses): QUALIFIERS: Diabetes mellitus complication detail: with coma Diabetes mellitus type: other specified (including YANELIS) Qualified Code(s): E13.11 - Other specified diabetes mellitus with ketoacidosis with coma (2) THANIA (acute kidney injury): PLAN: The patient is a 76 y/o F WITH HISTORY OF COPD with Chronic Hypoxic Respiratory Failure (2L NC), Hx VTE on Eliquis, YANELIS on insulin pump, vaccinated and boosted against COVID-19 who presents to the [facility] ED on 11/17/21 via EMS secondary to unresponsiveness, nausea and emesis and overall assessment consistent with DKA. #1. DKA with history of YANELIS, IDDM: Patient is admitted in ICU. On insulin drip until anion gap is x2 closed with overlap with subcutaneous long-acting insulin. On IV fluid as per DKA protocol. Currently n.p.o. #2. Acute encephalopathy most likely metabolic from DKA. The patient has significant leukocytosis with left shift. Clinically no signs and symptoms leading to infection. UA is negative for pyuria, hematuria, LE and nitrite negative. Chest x-ray reviewed does not show acute finding. Empirically on IV antibiotic until cultures are pending. #3. Acute kidney injury most likely secondary to DKA, prerenal: Admission BUN/Cr 50/2.97, prior baseline creatinine 0.8. BUN/creatinine showing im proving trends. Monitor electrolytes and kidney function. #4. Hypothyroidism with elevated TSH: TSH 20.80, continue levothyroxine once oral intake appropriate with pending free T4 level. #5. History 09/2021 bilateral PE: Patient on apixaban as an outpatient but since he is n.p.o. Heparin weight-based IV ordered. Patient creatinine clearance is about 30 number permanent therefore enoxaparin is not a good option. Start heparin drip without bolus. #6. COPD with chronic hypoxic respiratory failure:on home oxygen supplementation, DuoNeb as needed #7. Tobacco Abuse: #8. Hypertension: Change overall antihypertensive to IV as needed. On IV 10 mg hydralazine as needed. Blood pressure more than 180 PRN hydralazine. #9. Hyperlipidemia: Hold statin while patient is n.p.o. #10. Urinary incontinence: Resume oxybutynin on patient taking oral #11. DVT prophylaxis: SCDs, heparin to Charges/Coding Visit Charges Inpatient E&M: 61104 Subs Hosp L3
[2021-11-18] MEDS: Ipratropium/Albuterol Sulfate 3 ML AMPUL.NEB INHALATION (07:31)
[2021-11-18 08:36] LABS: Bedside Glucose 426 mg/dL (70-110)
[2021-11-18 08:36] LABS: Bedside Glucose 406 mg/dL (70-110)
[2021-11-18 08:36] LABS: Bedside Glucose 495 mg/dL (70-110)
[2021-11-18 09:21] LABS: Bedside Glucose > 500 mg/dL (70-110)
[2021-11-18 09:21] LABS: Bedside Glucose 477 mg/dL (70-110)
--- NOTE | 2021-11-18 09:35 | CASEMGMT ---
KRISTINE ALEMAN Face to Face with boyfriend, Dillon, for initial transition planning/care coordination assessment and patient is not alert at this time. KRISTINE ALEMAN introduced self and role at [facility]. Patient lying in bed, boyfriend at bedside. Dillon willing to participate in assessment and is able to answer all questions appropriately. Care providers, pharmacy, and demographics verified. Dillon wishes for patient to discharge home, will monitor for HHC pending progress with therapy. Dillon states he has no further needs or concerns at this time. CM to follow for discharge planning needs that may arise. 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 Per Don patient has been forgetful with appts. KRISTINE CM call Dr. Mendoza office and reschedule new patient appointment for next available on 01/22/22 9:00am, appointment updated on discharge plan. Preferred Pharmacy: [facility] Insurance: [facility], [employer] Prescription Benefit: yes Living Will/HPOA: yes, son Andrea Zamudio LNOK: son, boyfriend Dillon Living Arrangements: Patient lives alone in a single story home with 3 steps and railing to enter the home. Patient in normally independent at home. Don states that they see each other daily. Transportation: self, Don BF DME/HHC: Per Dillon patient had grab bars, home oxygen with portability at 2lpm through [employer], Pulse Ox, insulin pump, glucometer at home. No previous HHC or SNF. Disposition Plan: Patient to discharge home with family support and follow-up plans in place. Will monitor progress with therapy for discharge needs. Jeanine MARIEN, RN, CM
[2021-11-18 09:58] LABS: Anion Gap 12 (5-15); BUN 47 mg/dL (7-18); BUN/Creat Ratio 20.5 RATIO (10-20); Calcium,Total 7.9 mg/dL (8.5-10.1); Chloride 109 mmol/L (98-107); Creatinine, Serum 2.29 mg/dL (0.55-1.02); EST Glomerular Filtration Rate 22 mL/min (>60); Est Glom Filt Rate - Afr Amer 27 mL/min (>60); Estimated Creatinine Clearance 16.01 ml/min; Glucose 377 mg/dL (74-106); Potassium 3.7 mmol/L (3.5-5.1); Sodium Level 141 mmol/L (136-145)
[2021-11-18 10:21] LABS: Bedside Glucose 358 mg/dL (70-110)
[2021-11-18 10:21] LABS: Bedside Glucose 399 mg/dL (70-110)
[2021-11-18 11:01] LABS: Hemoglobin A1c 9.3 % (3.8-5.6)
[2021-11-18 12:06] LABS: Bedside Glucose 348 mg/dL (70-110)
[2021-11-18 13:43] LABS: Anion Gap 12 (5-15); BUN 46 mg/dL (7-18); BUN/Creat Ratio 20.2 RATIO (10-20); Calcium,Total 8.1 mg/dL (8.5-10.1); Chloride 107 mmol/L (98-107); Creatinine, Serum 2.28 mg/dL (0.55-1.02); EST Glomerular Filtration Rate 22 mL/min (>60); Est Glom Filt Rate - Afr Amer 27 mL/min (>60); Estimated Creatinine Clearance 16.08 ml/min; Glucose 340 mg/dL (74-106); Potassium 3.6 mmol/L (3.5-5.1); Sodium Level 141 mmol/L (136-145)
[2021-11-18 14:02] LABS: Pathologist Review Reviewed
[2021-11-18] MEDS: 0.9% Saline Lock 10 ML Syringe IV ×3 (15:12→19:05)
[2021-11-18 15:20] LABS: Bedside Glucose 311 mg/dL (70-110)
[2021-11-18 15:20] LABS: Bedside Glucose 312 mg/dL (70-110)
[2021-11-18 16:25] LABS: Bedside Glucose 289 mg/dL (70-110)
[2021-11-18] MEDS: proCHLORPERazine 10 MG/2 ML Vial 5 MG IV (17:23)
[2021-11-18 17:35] LABS: Bedside Glucose 278 mg/dL (70-110)
[2021-11-18 18:16] LABS: Bedside Glucose 260 mg/dL (70-110)
[2021-11-18] MEDS: Morphine 2 MG/ML Syringe IV (19:05)
[2021-11-18 19:11] LABS: Bedside Glucose 275 mg/dL (70-110)
[2021-11-18 20:53] LABS: Partial Thromboplast Time 64.1 Seconds (24.1-36.2)
[2021-11-18] MEDS: Atorvastatin Calcium 10 MG Tablet 5 MG PO (22:14)
[2021-11-18] MEDS: Insulin Lispro 100 UNIT/ML INSULN.PEN SC (22:14)
[2021-11-19] VITALS (20 sets, daily range): BP systolic 130–162; BP diastolic 49–102; PULSE 82–111; RESP 17–24; TEMP 36.5–36.7; O2SAT 91–98
[2021-11-19] MEDS: Ondansetron 4 MG/2 ML Vial IV ×2 (00:28→09:00)
[2021-11-19] MEDS: Insulin Lispro 100 UNIT/ML INSULN.PEN SC ×5 (03:11→22:35)
[2021-11-19 03:16] LABS: Bedside Glucose 285 mg/dL (70-110)
[2021-11-19 03:20] LABS: Bedside Glucose 250 mg/dL (70-110)
[2021-11-19 03:20] LABS: Bedside Glucose 266 mg/dL (70-110)
[2021-11-19 03:27] LABS: Absolute Lymphocyte Count 0.87 X10^3/uL (0.83-4.51); Absolute Neutrophil Count 18.4 X10^3/uL (2.0-7.7); Basophil# 0.02 X10^3/uL; Basophil% 0.1 % (0-1); Eosinophil# 0.01 X10^3/uL; Hematocrit 32.7 % (37-47); Hemoglobin 11.1 g/dL (12.0-15.0); Lymphocyte # 0.87 X10^3/ul (0.83-4.51); Lymphocyte % 4.3 % (19-41); Mean Corp Hgb Conc 33.9 g/dL (32-36); Mean Corpuscular Hgb 28.5 pg (27.0-32.0); Mean Corpuscular Volume 84.1 fL (81-99); Mean Platelet Vol. 10.9 fl (6.2-12.0); Monocyte# 0.86 X10^3/uL; Monocyte% 4.2 % (0-10); NRBC Flagged by Analyzer 0 % (0-5); Neutrophil # 18.41 X10^3/uL (2.7-7.7); Platelet Count 230 K/mm3 (150-450); RBC Distribution Width CV 15.9 % (11.6-14.6); RBC Distribution Width SD 48.9 fl (35.1-43.9); Red Blood Count 3.89 M/mm3 (4.2-5.4); White Blood Count 20.3 K/mm3 (4.4-11.0)
[2021-11-19 03:38] LABS: Partial Thromboplast Time 107.6 Seconds (24.1-36.2)
[2021-11-19 03:45] LABS: Anion Gap 12 (5-15); BUN 33 mg/dL (7-18); BUN/Creat Ratio 22.1 RATIO (10-20); Calcium,Total 8.3 mg/dL (8.5-10.1); Chloride 106 mmol/L (98-107); Creatinine, Serum 1.49 mg/dL (0.55-1.02); EST Glomerular Filtration Rate 36 mL/min (>60); Est Glom Filt Rate - Afr Amer 44 mL/min (>60); Estimated Creatinine Clearance 24.61 ml/min; Glucose 282 mg/dL (74-106); Potassium 3.2 mmol/L (3.5-5.1); Sodium Level 140 mmol/L (136-145)
--- NOTE | 2021-11-19 07:24 | PCM.PN.INT ---
Assessment & Plan Assessment/Plan (1) Encephalopathy acute: (2) THANIA (acute kidney injury): (3) DKA (diabetic ketoacidoses): QUALIFIERS: Diabetes mellitus type: other specified (including YANELIS) Diabetes mellitus complication detail: with coma Qualified Code(s): E13.11 - Other specified diabetes mellitus with ketoacidosis with coma PLAN: RECOMMENDATIONS: 1. Continue empiric antimicrobials for 24 additional hours. If cultures remain negative tomorrow, antibiotics can be discontinued. 2. Discontinue heparin infusion and resume Eliquis. 3. Resume basal insulin and continue sliding scale coverage. 4. Additional potassium repletion as ordered. 5. Continue scheduled bronchodilators. 6. The patient is medically stable for transfer out of the intensive care unit. IMPRESSIONS: 1. Diabetic ketoacidosis Resolved. Resume basal insulin regimen and continue sliding scale coverage. Advance diet as tolerated. Continue aggressive electrolyte repletion. Antibiotics can be continued for an additional 24 hours. If cultures remain negative tomorrow, recommend that all antibiotics be discontinued. 2. Encephalopathy Improved. Likely metabolic in etiology and related to #1. CT head was unremarkable. 3. Acute kidney injury Improved. Prerenal in etiology. Continue to monitor urine output. No current indication for renal replacement therapy. 4. Recent history of pulmonary emboli Continue systemic anticoagulation with Eliquis. 5. History of COPD/chronic tobacco dependency/hypothyroidism/hypertension/hyperlipidemia Complicates care, management, recovery and prognosis. Continue home medications as indicated. Smoking cessation is advisable. This note was generated with [employer] dictation software. It may contain incorrect words, spelling, and punctuation that were not noted in checking the note before signing. Subjective Subjective The patient was seen and examined at the bedside this morning. Events from the last 24 hours have been reviewed. The patient is currently afebrile, hemodynamically stable and maintaining appropriate oxygen saturations on 2 L/min via nasal cannula. The patient's insulin infusion was able to be discontinued last night at 8 PM. The patient is more alert and interactive this morning. She is currently documented to be overall net +3.7 L for the hospitalization. Potassium is low this morning at 3.2. Creatinine has improved to 1.49. Objective Data Objective Data The patient's most recent lab work, culture data and imaging studies have all been personally reviewed. Infectious work-up has been unrevealing to date. Vital Signs: Vital Signs Temp Pulse Resp BP Pulse Ox 98 F 100 20 H 158/63 H 93 11/19/21 00:00 11/19/21 06:00 11/19/21 06:00 11/19/21 06:00 11/19/21 07:17 Oxygen Flow Rate (L/min) 2 Oxygen Delivery Method Nasal Cannula Weight: 70.1 kg Body Mass Index (BMI) 27.8 Intake & Output: Intake and Output for Last 24 Hours 11/17/21 11/18/21 11/19/21 23:59 23:59 23:59 Intake Total 6576.56 / 6576.56 321 / 321 Output Total 2225 / 2225 1000 / 1000 Balance 4351.56 / 4351.56 -679 / -679 Medical Nutrition Assessment Dietitian: Malnutrition Criteria Met Start: 11/18/21 12:50 Freq: Status: Active Protocol: Document 11/18/21 12:50 RMA (Rec: 11/18/21 12:50 RMA [id number]) Nutrition Malnutrition Evidence of Malnutrition Exists Yes Malnutrition (severe): Chronic Evidenced By Suboptimal Energy Intake ( Severe),Weight Loss (Severe) Clinical Problem Chronic Disease or Condition Related Malnutrition Etiology Severe protein-calorie malnutrition in the context of chronic disease related to increased energy expenditure and inadequate oral intake; N/ V on admission Signs/Symptoms as evidenced by NPO and wt loss~6-7% x past 6 weeks Status Active Problem Recommendation Dietitian Recommendations/Changes Advance diet once medically able to 2000 calorie/ consistent carbohydrate/ cardiac. Will offer glucerna shake as diet advanced from NPO. 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 Lab / Micro Data Attestation: I reviewed the patient's lab results. Result Diagrams: 11/19/21 03:10 11/19/21 03:10 Labs: Laboratory Results - last 24 hr 11/18/21 04:07: Diff Path Review Reviewed 11/18/21 04:07: Hemoglobin A1c 9.3 H 11/18/21 05:00: POC Glucose > 500 H* 11/18/21 05:02: POC Glucose 477 H* 11/18/21 05:58: POC Glucose 495 H* 11/18/21 07:00: POC Glucose 426 H 11/18/21 08:02: POC Glucose 406 H 11/18/21 09:15: Sodium 141, Potassium 3.7, Chloride 109 H, Carbon Dioxide 20.0 L, Anion Gap 12, BUN 47 H, Creatinine 2.29 H, Estim Creat Clear Calc 16.01, Est GFR (MDRD) Af Amer 27 L, Est GFR (MDRD) Non-Af 22 L, BUN/Creatinine Ratio 20.5 H, Glucose 377 H, Calcium 7.9 L 11/18/21 09:24: POC Glucose 399 H 11/18/21 10:11: POC Glucose 358 H 11/18/21 11:53: POC Glucose 348 H 11/18/21 13:05: Sodium 141, Potassium 3.6, Chloride 107, Carbon Dioxide 22.0, Anion Gap 12, BUN 46 H, Creatinine 2.28 H, Estim Creat Clear Calc 16.08, Est GFR (MDRD) Af Amer 27 L, Est GFR (MDRD) Non-Af 22 L, BUN/Creatinine Ratio 20.2 H, Glucose 340 H, Calcium 8.1 L 11/18/21 14:41: POC Glucose 312 H 11/18/21 15:07: POC Glucose 311 H 11/18/21 16:09: POC Glucose 289 H 11/18/21 17:14: POC Glucose 278 H 11/18/21 18:06: POC Glucose 260 H 11/18/21 18:56: POC Glucose 275 H 11/18/21 19:53: POC Glucose 250 H 11/18/21 19:55: APTT 64.1 H 11/18/21 22:11: POC Glucose 266 H 11/19/21 03:09: POC Glucose 285 H 11/19/21 03:10: WBC 20.3 H, RBC 3.89 L, Hgb 11.1 L, Hct 32.7 L, MCV 84.1, MCH 28.5, MCHC 33.9, RDW Std Deviation 48.9 H, RDW Coeff of Kristyn 15.9 H, Plt Count 230, MPV 10.9, Immature Gran % (Auto) 0.400, Neut % (Auto) 91.0 H, Lymph % (Auto) 4.3 L, [place] % (Auto) 4.2, Eos % (Auto) 0.0, Baso % (Auto) 0.1, Absolute Neuts (auto) 18.4 H, Absolute Lymphs (auto) 0.87, Nucleated RBC % 0 11/19/21 03:10: Sodium 140, Potassium 3.2 L, Chloride 106, Carbon Dioxide 22.0, Anion Gap 12, BUN 33 H, Creatinine 1.49 H, Estim Creat Clear Calc 24.61, Est GFR (MDRD) Af Amer 44 L, Est GFR (MDRD) Non-Af 36 L, BUN/Creatinine Ratio 22.1 H, Glucose 282 H, Calcium 8.3 L 11/19/21 03:10: APTT 107.6 H* Micro: Microbiology 11/17/21 22:42 Nasal Secretion SARS-CoV-2 Antigen (Rapid) - Final Physical Exam Const alert and no apparent distress HEENT normocephalic and head/scalp atraumatic Eyes PERRL, EOMs intact bilaterally and conjunctivae normal Neck supple General: trachea midline Chest inspection of chest normal Resp Auscultation: diminished lung sounds; Negative for rales, rhonchi or wheezes Cardio regular rate and regular rhythm GI normal to inspection, nondistended, normoactive bowel sounds Extremity no clubbing, cyanosis or edema Skin no rashes or lesions noted Neuro no focal motor deficits Psych Mood & Affect: flat affect Charges/Coding Visit Charges Inpatient E&M: 75286 Subs Hosp L2
--- NOTE | 2021-11-19 08:57 | PCM.PN.HOSP ---
Subjective Subjective Follow-up for acute encephalopathy due to DKA patient is awake and alert. Insulin drip is off. Her appetite is very less. No nausea or vomiting. Objective Data Objective Data Vital Signs: Vital Signs Temp Pulse Resp BP Pulse Ox 98 F 100 20 H 158/63 H 93 11/19/21 00:00 11/19/21 06:00 11/19/21 06:00 11/19/21 06:00 11/19/21 07:17 Oxygen Flow Rate (L/min) 2 Oxygen Delivery Method Nasal Cannula Weight: 154 lb 8.705 oz Body Mass Index (BMI) 27.8 Intake & Output: Intake and Output for Last 24 Hours 11/17/21 11/18/21 11/19/21 23:59 23:59 23:59 Intake Total 50 / 50 6576.56 / 6576.56 321 / 321 Output Total 2225 / 2225 1000 / 1000 Balance 50 / 50 4351.56 / 4351.56 -679 / -679 Medical Nutrition Assessment Dietitian: Malnutrition Criteria Met Start: 11/18/21 12:50 Freq: Status: Active Protocol: Document 11/18/21 12:50 RMA (Rec: 11/18/21 12:50 RMA [id number]) Nutrition Malnutrition Evidence of Malnutrition Exists Yes Malnutrition (severe): Chronic Evidenced By Suboptimal Energy Intake ( Severe),Weight Loss (Severe) Clinical Problem Chronic Disease or Condition Related Malnutrition Etiology Severe protein-calorie malnutrition in the context of chronic disease related to increased energy expenditure and inadequate oral intake; N/ V on admission Signs/Symptoms as evidenced by NPO and wt loss~6-7% x past 6 weeks Status Active Problem Recommendation Dietitian Recommendations/Changes Advance diet once medically able to 2000 calorie/ consistent carbohydrate/ cardiac. Will offer glucerna shake as diet advanced from NPO. 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 Lab / Micro Data Result Diagrams: 11/19/21 03:10 11/19/21 03:10 Labs: Laboratory Results - last 24 hr 11/18/21 04:07: Diff Path Review Reviewed 11/18/21 04:07: Hemoglobin A1c 9.3 H 11/18/21 05:00: POC Glucose > 500 H* 11/18/21 05:02: POC Glucose 477 H* 11/18/21 09:15: Sodium 141, Potassium 3.7, Chloride 109 H, Carbon Dioxide 20.0 L, Anion Gap 12, BUN 47 H, Creatinine 2.29 H, Estim Creat Clear Calc 16.01, Est GFR (MDRD) Af Amer 27 L, Est GFR (MDRD) Non-Af 22 L, BUN/Creatinine Ratio 20.5 H, Glucose 377 H, Calcium 7.9 L 11/18/21 09:24: POC Glucose 399 H 11/18/21 10:11: POC Glucose 358 H 11/18/21 11:53: POC Glucose 348 H 11/18/21 13:05: Sodium 141, Potassium 3.6, Chloride 107, Carbon Dioxide 22.0, Anion Gap 12, BUN 46 H, Creatinine 2.28 H, Estim Creat Clear Calc 16.08, Est GFR (MDRD) Af Amer 27 L, Est GFR (MDRD) Non-Af 22 L, BUN/Creatinine Ratio 20.2 H, Glucose 340 H, Calcium 8.1 L 11/18/21 14:41: POC Glucose 312 H 11/18/21 15:07: POC Glucose 311 H 11/18/21 16:09: POC Glucose 289 H 11/18/21 17:14: POC Glucose 278 H 11/18/21 18:06: POC Glucose 260 H 11/18/21 18:56: POC Glucose 275 H 11/18/21 19:53: POC Glucose 250 H 11/18/21 19:55: APTT 64.1 H 11/18/21 22:11: POC Glucose 266 H 11/19/21 03:09: POC Glucose 285 H 11/19/21 03:10: WBC 20.3 H, RBC 3.89 L, Hgb 11.1 L, Hct 32.7 L, MCV 84.1, MCH 28.5, MCHC 33.9, RDW Std Deviation 48.9 H, RDW Coeff of Kristyn 15.9 H, Plt Count 230, MPV 10.9, Immature Gran % (Auto) 0.400, Neut % (Auto) 91.0 H, Lymph % (Auto) 4.3 L, [place] % (Auto) 4.2, Eos % (Auto) 0.0, Baso % (Auto) 0.1, Absolute Neuts (auto) 18.4 H, Absolute Lymphs (auto) 0.87, Nucleated RBC % 0 01/27/22 03:10: Sodium 140, Potassium 3.2 L, Chloride 106, Carbon Dioxide 22.0, Anion Gap 12, BUN 33 H, Creatinine 1.49 H, Estim Creat Clear Calc 24.61, Est GFR (MDRD) Af Amer 44 L, Est GFR (MDRD) Non-Af 36 L, BUN/Creatinine Ratio 22.1 H, Glucose 282 H, Calcium 8.3 L 11/19/21 03:10: APTT 107.6 H* Micro: Microbiology 11/17/21 22:42 Nasal Secretion SARS-CoV-2 Antigen (Rapid) - Final Physical Exam Narrative General: Awake alert oriented x3. HEENT: Atraumatic, PERRLA, EOMI, Normocephalic Oral: Oral mucosa moist. No Gingival or Mucosal Lesions/ Ulcerations Neck: Supple, No JVD, Negative Carotid Bruits Lungs: Air entry diminished in bilateral lung bases. No crepitation/rhonchi Cardiovascular: Sinus rhythm, heart rate in low 100s. Normal S1, Normal S2, No murmurs Abdomen: Bowel Sounds sluggish, Soft, Non Tender, Non-Distended : No renal angle tenderness. No suprapubic tenderness. Extremities: No edema, Capillary Refill Less than 3 Seconds Skin: No rashes, No breakdown Musculoskeletal: No Tenderness to Palpation of Joints or Extremities Neurological: Cranial nerves II-XII grossly intact, DTR 2+/4 and Symmetrical, Neuro grossly intact Psych/Mental Status: Flat affect. Assessment & Plan Assessment/Plan (1) DKA (diabetic ketoacidoses): QUALIFIERS: Diabetes mellitus complication detail: with coma Diabetes mellitus type: other specified (including YANELIS) Qualified Code(s): E13.11 - Other specified diabetes mellitus with ketoacidosis with coma (2) THANIA (acute kidney injury): PLAN: The patient is a 76 y/o F WITH HISTORY OF COPD with Chronic Hypoxic Respiratory Failure (2L NC), Hx VTE on Eliquis, YANELIS on insulin pump, vaccinated and boosted against COVID-19 who presents to the [facility] ED on 11/17/21 via EMS secondary to unresponsiveness, nausea and emesis and overall assessment consistent with DKA. #1. DKA with history of YANELIS, IDDM: Patient is admitted in ICU. On insulin drip until anion gap is x2 closed with overlap with subcutaneous long-acting insulin. On IV fluid as per DKA protocol. Currently n.p.o. 11/19: DKA resolved. Anion gap closed x2. On subcutaneous insulin. Diet encouraged. Patient can be transferred to regular floor. Started on Lantus and Humalog scheduled 8 units 3 times daily AC. Titrate up as per Accu-Chek and diet adequacy #2. Acute encephalopathy most likely metabolic from DKA. The patient has significant leukocytosis with left shift. Clinically no signs and symptoms leading to infection. UA is negative for pyuria, hematuria, LE and nitrite negative. Chest x-ray reviewed does not show acute finding. Empirically on IV antibiotic until cultures are pending. 11/19: Improving. No focal neurological deficit. CT head did not show acute change. #3. Acute kidney injury most likely secondary to DKA, prerenal: Admission BUN/Cr 50/2.97, prior baseline creatinine 0.8. BUN/creatinine showing improving trends. Monitor electrolytes and kidney function. 11/19: Improving. BUN/creatinine 33/1.49. Mild hypokalemia 3.2, potassium replaced. #4. Hypothyroidism with elevated TSH: TSH 20.80, continue levothyroxine once oral intake appropriate with pending free T4 level. 11/19 repeat TSH when she is on baseline as present TSH 20 may be falsely elevated because of acute sickness/euthyroid sick syndrome #5. History 09/2021 bilateral PE: 11/19: Heparin drip discontinued. Back on home dose of Eliquis #6. COPD with chronic hypoxic respiratory failure:on home oxygen supplementation, DuoNeb as needed #7. Tobacco Abuse: #8. Hypertension: Change overall antihypertensive to IV as needed. On IV 10 mg hydralazine as needed. Blood pressure more than 180 PRN hydralazine. #9. Hyperlipidemia: Resume statin. #10. Urinary incontinence: Oxybutynin resumed. #11. DVT prophylaxis: SCDs, on Eliquis Charges/Coding Visit Charges Inpatient E&M: 29205 Subs Hosp L3
[2021-11-19] MEDS: 0.9% Saline Lock 10 ML Syringe IV ×2 (09:01→10:12)
[2021-11-19 09:16] LABS: Bedside Glucose 416 mg/dL (70-110)
[2021-11-19] MEDS: Potassium Chloride 10mEq/100mL 10 MEQ/100 ML IV.SOLN. 100 MEQ IV BOLUS ×4 (10:12→12:15)
--- NOTE | 2021-11-19 11:55 | PCS.PANDOC ---
PANDEMIC DOCUMENTATION INITIATED: Date: 06/08/2021 Time: 190
[2021-11-19] MEDS: Metoprolol(XL)Succ 50 MG Tablet PO (12:31)
[2021-11-19] MEDS: amLODIPine 5 MG Tablet PO (12:31)
[2021-11-19] MEDS: APIXABAN 5 MG TABLET PO ×2 (12:32→22:29)
[2021-11-19] MEDS: Tolterodine Tartrate 2 MG CAP.SA PO (12:32)
[2021-11-19 12:45] LABS: Bedside Glucose 300 mg/dL (70-110)
[2021-11-19 15:36] LABS: Vancomycin, Random Level 6.3 ug/mL (0.0-15.0)
[2021-11-19] MEDS: Insulin Lispro 100 UNIT/ML INSULN.PEN 8 UNIT SC (16:28)
[2021-11-19] MEDS: Metoclopramide 5 MG TABLET PO (16:30)
[2021-11-19] MEDS: Budesonide Respules 0.5 MG/2 ML AMPUL.NEB. INHALATION (20:30)
[2021-11-19] MEDS: Albuterol 2.5 MG/3 ML VIAL.NEB. INHALATION (20:30)
[2021-11-19 21:31] LABS: Bedside Glucose 286 mg/dL (70-110)
[2021-11-19] MEDS: Atorvastatin Calcium 10 MG Tablet 5 MG PO (22:30)
[2021-11-19] MEDS: Pantoprazole Sodium 40 MG Tablet PO (22:30)
[2021-11-19 22:45] LABS: Bedside Glucose 260 mg/dL (70-110)
[2021-11-20] VITALS (12 sets, daily range): BP systolic 117–151; BP diastolic 48–62; PULSE 66–90; RESP 15–20; TEMP 36.5–36.6; O2SAT 90–96
[2021-11-20] MEDS: Insulin Lispro 100 UNIT/ML INSULN.PEN SC ×4 (04:00→16:17)
[2021-11-20] MEDS: Levothyroxine 112 MCG Tablet PO (04:13)
[2021-11-20 04:21] LABS: Bedside Glucose 180 mg/dL (70-110)
[2021-11-20] MEDS: Albuterol 2.5 MG/3 ML VIAL.NEB. INHALATION ×3 (07:03→19:30)
[2021-11-20] MEDS: Budesonide Respules 0.5 MG/2 ML AMPUL.NEB. INHALATION ×2 (07:03→19:30)
[2021-11-20 08:00] LABS: Bedside Glucose 162 mg/dL (70-110)
[2021-11-20] MEDS: Insulin Lispro 100 UNIT/ML INSULN.PEN 8 UNIT SC ×3 (08:13→16:18)
[2021-11-20] MEDS: Metoclopramide 5 MG TABLET PO ×3 (08:14→16:33)
[2021-11-20] MEDS: APIXABAN 5 MG TABLET PO ×2 (08:14→21:18)
[2021-11-20] MEDS: Tolterodine Tartrate 2 MG CAP.SA PO (08:15)
[2021-11-20] MEDS: Pantoprazole Sodium 40 MG Tablet PO ×2 (08:16→21:18)
[2021-11-20] MEDS: amLODIPine 5 MG Tablet PO (08:16)
[2021-11-20] MEDS: Metoprolol(XL)Succ 50 MG Tablet PO (08:16)
[2021-11-20 08:31] LABS: Absolute Lymphocyte Count 1.28 X10^3/uL (0.83-4.51); Absolute Neutrophil Count 8.9 X10^3/uL (2.0-7.7); Basophil# 0.02 X10^3/uL; Basophil% 0.2 % (0-1); Eosinophil# 0.01 X10^3/uL; Eosinophils% 0.1 % (0-5); Hematocrit 34.7 % (37-47); Hemoglobin 11.5 g/dL (12.0-15.0); Lymphocyte # 1.28 X10^3/ul (0.83-4.51); Lymphocyte % 11.7 % (19-41); Mean Corp Hgb Conc 33.1 g/dL (32-36); Mean Corpuscular Hgb 28.5 pg (27.0-32.0); Mean Corpuscular Volume 85.9 fL (81-99); Monocyte# 0.65 X10^3/uL; NRBC Flagged by Analyzer 0 % (0-5); Neutrophil # 8.91 X10^3/uL (2.7-7.7); Neutrophil % 81.6 % (47-70); Platelet Count 219 K/mm3 (150-450); RBC Distribution Width CV 15.6 % (11.6-14.6); RBC Distribution Width SD 49.1 fl (35.1-43.9); Red Blood Count 4.04 M/mm3 (4.2-5.4); White Blood Count 10.9 K/mm3 (4.4-11.0)
[2021-11-20 08:58] LABS: Anion Gap 7 (5-15); BUN 21 mg/dL (7-18); BUN/Creat Ratio 18.4 RATIO (10-20); Calcium,Total 8.8 mg/dL (8.5-10.1); Chloride 103 mmol/L (98-107); Creatinine, Serum 1.14 mg/dL (0.55-1.02); EST Glomerular Filtration Rate 49 mL/min (>60); Est Glom Filt Rate - Afr Amer 59 mL/min (>60); Estimated Creatinine Clearance 32.17 ml/min; Glucose 174 mg/dL (74-106); Magnesium 2.1 mg/dL (1.6-2.6); Potassium 3.1 mmol/L (3.5-5.1); Sodium Level 137 mmol/L (136-145)
[2021-11-20 12:01] LABS: Bedside Glucose 274 mg/dL (70-110)
--- NOTE | 2021-11-20 13:33 | PCM.PN.HOSP ---
Documented by User: Nubia Koo GAS SUBSTATION OPERATOR, GAS SUBSTATION OPERATOR-C 11/20/21 14:01 Subjective Subjective Patient seen and examined. Reports she feels weak, continues to have poor oral intake. Denies further nausea/vomiting. Objective Data Objective Data Vital Signs: Vital Signs Temp Pulse Resp BP Pulse Ox 97.7 F L 66 16 129/52 H 92 11/20/21 08:30 11/20/21 11:44 11/20/21 11:44 11/20/21 08:30 11/20/21 08:30 Oxygen Flow Rate (L/min) 2 Oxygen Delivery Method Nasal Cannula Weight: 155 lb 10.342 oz Body Mass Index (BMI) 27.8 Intake & Output: Intake and Output for Last 24 Hours 11/18/21 11/19/21 11/20/21 23:59 23:59 23:59 Intake Total 6576.56 / 6576.56 725.99 / 725.99 100 / 100 Output Total 2225 / 2225 1425 / 1425 1125 / 1125 Balance 4351.56 / 4351.56 -699.01 / -699.01 -1025 / -1025 Medical Nutrition Assessment Dietitian: Malnutrition Criteria Met Start: 11/18/21 12:50 Freq: Status: Active Protocol: Document 11/18/21 12:50 RMA (Rec: 11/18/21 12:50 RMA [id number]) Nutrition Malnutrition Evidence of Malnutrition Exists Yes Malnutrition (severe): Chronic Evidenced By Suboptimal Energy Intake ( Severe),Weight Loss (Severe) Clinical Problem Chronic Disease or Condition Related Malnutrition Etiology Severe protein-calorie malnutrition in the context of chronic disease related to increased energy expenditure and inadequate oral intake; N/ V on admission Signs/Symptoms as evidenced by NPO and wt loss~6-7% x past 6 weeks Status Active Problem Recommendation Dietitian Recommendations/Changes Advance diet once medically able to 2000 calorie/ consistent carbohydrate/ cardiac. Will offer glucerna shake as diet advanced from NPO. 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 Lab / Micro Data Result Diagrams: 11/20/21 08:05 11/20/21 08:20 Labs: Laboratory Results - last 24 hr 11/19/21 14:32: Random Vancomycin 6.3 11/19/21 16:26: POC Glucose 286 H 11/19/21 22:32: POC Glucose 260 H 11/20/21 04:11: POC Glucose 180 H 11/20/21 07:46: POC Glucose 162 H 11/20/21 08:05: WBC 10.9, RBC 4.04 L, Hgb 11.5 L, Hct 34.7 L, MCV 85.9, MCH 28.5, MCHC 33.1, RDW Std Deviation 49.1 H, RDW Coeff of Kristyn 15.6 H, Plt Count 219, MPV 11.0, Immature Gran % (Auto) 0.400, Neut % (Auto) 81.6 H, Lymph % (Auto) 11.7 L, [place] % (Auto) 6.0, Eos % (Auto) 0.1, Baso % (Auto) 0.2, Absolute Neuts (auto) 8.9 H, Absolute Lymphs (auto) 1.28, Nucleated RBC % 0 11/20/21 08:20: Sodium 137, Potassium 3.1 L, Chloride 103, Carbon Dioxide 27.0, Anion Gap 7, BUN 21 H, Creatinine 1.14 H, Estim Creat Clear Calc 32.17, Est GFR (MDRD) Af Amer 59 L, Est GFR (MDRD) Non-Af 49 L, BUN/Creatinine Ratio 18.4, Glucose 174 H, Calcium 8.8, Phosphorus 2.0 L, Magnesium 2.1 11/20/21 11:14: POC Glucose 274 H Micro: Microbiology 11/17/21 23:20 Blood Culture (Wb) - Anticubital Right Blood Culture - Preliminary No growth in 48 hours. 11/17/21 23:20 Blood Culture (Wb) - Anticubital Right Blood Culture - Preliminary No growth in 48 hours. 11/17/21 22:42 Nasal Secretion SARS-CoV-2 Antigen (Rapid) - Final Physical Exam Const alert, oriented x3 and no apparent distress Orientation / Consciousness: awake, oriented to person, oriented to place and oriented to time HEENT normocephalic and moist oral mucous membranes Eyes PERRL, EOMs intact bilaterally and conjunctivae normal Neck no lymphadenopathy Resp normal respiratory effort and clear to auscultation bilaterally Cardio regular rate, regular rhythm and no murmurs Peripheral Pulses: pulses 2+ throughout GI normal to inspection, nondistended, normoactive bowel sounds, non-tender and non-distended Extremity normal to inspection Skin no rashes or lesions noted Lesions: no lesions Rashes: no rashes Trauma: no lacerations or abrasions Neuro CN's II-XII intact bilaterally, no focal motor deficits, no sensory deficits noted and deep tendon reflexes 2+ bilaterally Psych mental status grossly normal and affect normal Assessment & Plan Assessment/Plan (1) DKA (diabetic ketoacidoses): QUALIFIERS: Diabetes mellitus complication detail: with coma Diabetes mellitus type: other specified (including YANELIS) Qualified Code(s): E13.11 - Other specified diabetes mellitus with ketoacidosis with coma PLAN: 1. DKA in the setting of YANELIS/IDDM-on insulin pump at baseline. Patient states she has been on insulin pump for years and has never had significant difficulties with blood glucose. Initially placed on insulin drip. DKA resolved. Plan to transition to home insulin pump and continue glucose monitoring to ensure functioning properly. Patient has upcoming follow-up with endocrinology. PT/OT due to debility. 2. Metabolic encephalopathy secondary to #1-resolved. 3. Acute kidney injury-secondary to above. Resolved. 4. Hypothyroidism with elevated TSH-T4 normal. Continue home Synthroid regimen. 5. Hypokalemia/hypophosphatemia-replace per protocol. 6. History of recent bilateral PE with hypoxic respiratory failure-on Eliquis. Remains on supplemental oxygen. 7. Chronic COPD-as needed albuterol aerosol. 8. Tobacco dependence-encouraged cessation. 9. Hypertension-continue home regimen. 10. Hyperlipidemia-continue statin. 11. Urinary incontinence-oxybutynin resumed. DVT prophylaxis-SCDs, Eliquis This patient was seen by EDDIE Espinoza under the supervision of Dr. Hickey. Documented by User: Dr. Ronaldo Hickey MD 11/20/21 15:49 Subjective Subjective Patient denies nausea and vomiting but feels very weak. Unclear what resulted in DKA either malfunctioning of insulin pump or patient nonadherent. 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 Objective Data Lab / Micro Data Result Diagrams: 11/20/21 08:05 11/20/21 08:20 Physical Exam Narrative General: Awake alert oriented x3. HEENT: Atraumatic, PERRLA, EOMI, Normocephalic Oral: Oral mucosa moist. No Gingival or Mucosal Lesions/ Ulcerations Neck: Supple, No JVD, Negative Carotid Bruits Lungs: Air entry diminished in bilateral lung bases. No crepitation/rhonchi Cardiovascular: Sinus rhythm, heart rate in low 100s. Normal S1, Normal S2, No murmurs Abdomen: Bowel Sounds sluggish, Soft, Non Tender, Non-Distended : No renal angle tenderness. No suprapubic tenderness. Extremities: No edema, Capillary Refill Less than 3 Seconds Skin: No rashes, No breakdown Musculoskeletal: No Tenderness to Palpation of Joints or Extremities Neurological: Cranial nerves II-XII grossly intact, DTR 2+/4 and Symmetrical, Neuro grossly intact Psych/Mental Status: Flat affect. Assessment & Plan Assessment/Plan (1) DKA (diabetic ketoacidoses): QUALIFIERS: Diabetes mellitus complication detail: with coma Diabetes mellitus type: other specified (including YANELIS) Qualified Code(s): E13.11 - Other specified diabetes mellitus with ketoacidosis with coma (2) Encephalopathy acute: PLAN: This patient was seen in conjunction with GAS SUBSTATION OPERATORNubia. I have independently interviewed and examined the patient and reviewed pertinent history, examination findings, laboratory and plan of management. I have reviewed the note and agree with the documented findings with the few additional points. In brief, patient is admitted for acute metabolic encephalopathy due to DKA. Patient was transferred from ICU to PCU yesterday after resolution of DKA. Metabolic encephalopathy resolved. THANIA resolved. Patient has hypokalemia and hypophosphatemia electrolytes getting replaced. Comorbidities include hypothyroidism, bilateral PE and COPD with chronic hypoxic respiratory failure. Oxygenation on baseline. Patient feels weak with poor mobility and loss of appetite. Discussed with case management assistant. PT and OT ordered. Total time of the visit includes total time spent in counseling or coordination of care, (more than 50% of the total time, spent in obtaining medical information from nurses and other ancillary care providers,explaining to the patient about labs, imaging, diagnosis and management), discussion with dairy feed sales consultant, review of labs and imaging is 30 minutes; I spent more than half time out of total time seen by GAS SUBSTATION OPERATOR and myself I have discussed my assessment with GAS SUBSTATION OPERATORNubia and orders have been reviewed. Charges/Coding Visit Charges Inpatient E&M: 03618 Subs Hosp L2
--- NOTE | 2021-11-20 15:31 | CASEMGMT ---
This RN CM to room and pt states plan for discharge is to go home and declines need for any further therapy at discharge at this time. Pt aware to notify CM environmental compliance inspector, if she wants HHC at discharge, voices understanding. Pt encouraged to go to visit with Dr. Ceja, endocrinology, to get established, voices understanding. [place]en KRISTINE CM
[2021-11-20 16:20] LABS: Bedside Glucose 252 mg/dL (70-110)
--- NOTE | 2021-11-20 17:45 | PN_ITS ---
11/20/21 SUBJECTIVE Patient seen and examined. Glucose improving. Patient denies symptoms or complaints. Denies nausea, vomiting. Patient states she was placed on Eliquis for PE in September and ran out of her Eliquis 1 week ago. States she is unable to afford it. Discussed with case management. OBJECTIVE Physical Exam Const alert, oriented x3 and no apparent distress Orientation / Consciousness: awake, oriented to person, oriented to place and oriented to time HEENT normocephalic and moist oral mucous membranes Eyes PERRL, EOMs intact bilaterally and conjunctivae normal Neck no lymphadenopathy Resp normal respiratory effort and clear to auscultation bilaterally Cardio regular rate, regular rhythm and no murmurs Peripheral Pulses: pulses 2+ throughout GI normal to inspection, nondistended, normoactive bowel sounds, non-tender and non-distended Extremity normal to inspection Skin no rashes or lesions noted Lesions: no lesions Rashes: no rashes Trauma: no lacerations or abrasions Neuro CN's II-XII intact bilaterally, no focal motor deficits, no sensory deficits noted and deep tendon reflexes 2+ bilaterally Psych mental status grossly normal and affect normal ASSESSMENT/PLAN 1. DKA in the setting of YANELIS/IDDM-on insulin pump at baseline. Patient states she has been on insulin pump for years and has never had significant difficulties with blood glucose. Initially placed on insulin drip. DKA resolved. Plan to transition to home insulin pump and continue glucose monitoring to ensure functioning properly. Patient has upcoming follow-up with endocrinology. PT/OT due to debility. Continue Lantus which was added. 2. Metabolic encephalopathy secondary to #1-resolved. 3. Acute kidney injury-secondary to above. Resolved. 4. Hypothyroidism with elevated TSH-T4 normal. Continue home Synthroid regimen. 5. Hypokalemia/hypophosphatemia-replace per protocol. 6. History of recent bilateral PE with hypoxic respiratory failure-on Eliquis. Remains on supplemental oxygen. Will need new Rx for Eliquis at discharge. 7. Chronic COPD-as needed albuterol aerosol. 8. Tobacco dependence-encouraged cessation. 9. Hypertension-continue home regimen. 10. Hyperlipidemia-continue statin. 11. Urinary incontinence-oxybutynin resumed. [facility] [place] [facility] [place] This patient was seen by EDDIE Espinoza under the supervision of Dr. Hickey. This patient was seen in conjunction with Nubia LEONARD. I have independently interviewed and examined the patient and reviewed pertinent history, examination findings, laboratory and plan of management. I have reviewed the note and agree with the documented findings with the few additional points. In brief the patient was admitted for acute metabolic encephalopathy due to DKA. DKA and metabolic encephalopathy resolved. Seen and examined Nubia, MERCURY WASHER and I both infer that patient might have mild dementia she does not remember the function of insulin pump. Her Accu-Chek was 284 mg/dL and she pushed 2.6 units of insulin through pump. Patient was advised Accu-Cheks before meals and at bedtime advised scheduled Humalog insulin 3 times daily with meals along with coverage insulin and scheduled Lantus insulin. 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 Physical exam General: Alert, Oriented x3, Cooperative HEENT: Atraumatic, PERRLA, EOMI, Normocephalic Oral: No Gingival or Mucosal Lesions/ Ulcerations Neck: Supple, No JVD, Negative Carotid Bruits Lungs: Air entry diminished in bilateral lung bases. No crepitation/rhonchi Cardiovascular: Regular rate, Regular Rhythm, Normal S1, Normal S2, No murmurs Abdomen: Bowel Sounds Present, Soft, Non Tender, Non-Distended : No renal angle tenderness. No suprapubic tenderness. Extremities: No edema, Capillary Refill Less than 3 Seconds Skin: No rashes, No breakdown Musculoskeletal: No Tenderness to Palpation of Joints or Extremities Neurological: Cranial nerves II-XII grossly intact, DTR 2+/4 and Symmetrical, Neuro grossly intact Psych/Mental Status: Normal Affect, Appropriate. Assessment and plan DKA: Resolved Acute metabolic syndrome due to DKA: Resolved I think patient has mild forgetfulness and cognitive deficiency. Need social economist support. Patient wanted to go to her friend until she is more stronger. She also had recent PE in August and on Eliquis but she is not taking for last 1 month. On 2 L of home oxygen since PE history of chronic hypoxic respiratory failure. Rest of comorbidities as mentioned above. I have discussed my assessment with Nubia LEONARD and orders have been reviewed. Total time of the visit includes total time spent in counseling or coordination of care, (more than 50% of the total time, spent in obtaining medical information from nurses and other ancillary care providers,explaining to the patient about labs, imaging, diagnosis and management), discussion with energy consultant, review of labs and imaging is 30 minutes; I spent more than half time out of total time seen by MERCURY WASHER and myself. Billing charge [id number]
[2021-11-20] MEDS: Insulin Basal Pump SC (18:47)
[2021-11-20] MEDS: Atorvastatin Calcium 10 MG Tablet 5 MG PO (21:18)
[2021-11-20 21:31] LABS: Bedside Glucose 171 mg/dL (70-110)
[2021-11-21] MEDS: Levothyroxine 112 MCG Tablet PO (06:30)
[2021-11-21] MEDS: Metoclopramide 5 MG TABLET PO ×3 (07:30→16:00)
[2021-11-21 09:00] VITALS: PULSE 80
[2021-11-21] MEDS: Docusate Sodium 100 MG Capsule PO (09:00)
[2021-11-21] MEDS: Tolterodine Tartrate 2 MG CAP.SA PO (09:00)
[2021-11-21] MEDS: Metoprolol(XL)Succ 50 MG Tablet PO (09:00)
[2021-11-21] MEDS: APIXABAN 5 MG TABLET PO ×2 (09:00→21:00)
[2021-11-21] MEDS: Pantoprazole Sodium 40 MG Tablet PO ×2 (09:00→21:00)
[2021-11-21] MEDS: amLODIPine 5 MG Tablet PO (09:00)
[2021-11-21] MEDS: Polyethylene Glycol 3350 17 GM PACKET PO (09:00)
[2021-11-21] MEDS: Insulin Lispro 100 UNIT/ML INSULN.PEN 6 UNIT SC (13:15)
[2021-11-21] MEDS: Potassium Chloride Oral Tablet 20 MEQ 60 MEQ PO (15:00)
[2021-11-21 18:59] LABS: Anion Gap 6 (5-15); BUN 16 mg/dL (7-18); BUN/Creat Ratio 18.6 RATIO (10-20); Calcium,Total 8.4 mg/dL (8.5-10.1); Chloride 102 mmol/L (98-107); Creatinine, Serum 0.86 mg/dL (0.55-1.02); EST Glomerular Filtration Rate 68 mL/min (>60); Est Glom Filt Rate - Afr Amer 82 mL/min (>60); Estimated Creatinine Clearance 42.64 ml/min; Glucose 86 mg/dL (74-106); Phosphorus 2.6 mg/dL (2.5-4.9); Sodium Level 139 mmol/L (136-145)
[2021-11-21 19:24] LABS: Bedside Glucose 100 mg/dL (70-110)
[2021-11-21 19:25] LABS: Bedside Glucose 284 mg/dL (70-110)
[2021-11-21 19:25] LABS: Bedside Glucose 97 mg/dL (70-110)
[2021-11-21 19:25] LABS: Bedside Glucose 275 mg/dL (70-110)
[2021-11-21] MEDS: Atorvastatin Calcium 10 MG Tablet 5 MG PO (21:00)
[2021-11-21 21:20] LABS: Bedside Glucose 204 mg/dL (70-110)
[2021-11-22 02:59] VITALS: PULSE 75
[2021-11-22 03:15] VITALS: BP 159/79; PULSE 84; RESP 16; TEMP 36.4; O2SAT 97
[2021-11-22] MEDS: Levothyroxine 112 MCG Tablet PO (06:34)
[2021-11-22] MEDS: Metoclopramide 5 MG TABLET PO ×2 (06:34→12:00)
[2021-11-22 07:00] VITALS: PULSE 92
[2021-11-22 07:05] LABS: Bedside Glucose 58 mg/dL (70-110)
[2021-11-22 07:05] LABS: Bedside Glucose 95 mg/dL (70-110)
[2021-11-22 07:06] VITALS: PULSE 78; RESP 18; O2SAT 94
[2021-11-22] MEDS: Budesonide Respules 0.5 MG/2 ML AMPUL.NEB. INHALATION (07:06)
[2021-11-22] MEDS: Albuterol 2.5 MG/3 ML VIAL.NEB. INHALATION (07:06)
[2021-11-22 08:56] LABS: Anion Gap 5 (5-15); BUN 12 mg/dL (7-18); BUN/Creat Ratio 14.3 RATIO (10-20); Calcium,Total 8.6 mg/dL (8.5-10.1); Chloride 101 mmol/L (98-107); Creatinine, Serum 0.84 mg/dL (0.55-1.02); EST Glomerular Filtration Rate 70 mL/min (>60); Est Glom Filt Rate - Afr Amer 84 mL/min (>60); Estimated Creatinine Clearance 43.66 ml/min; Glucose 199 mg/dL (74-106); Potassium 3.7 mmol/L (3.5-5.1); Sodium Level 135 mmol/L (136-145)
--- NOTE | 2021-11-22 08:58 | PCM.DC ---
Discharge Instructions Diet Discharge Diet: Carb Control Diet Activity Discharge Activity: Return to Normal Activity Dressing / Incision Call your doctor if you observe: Shortness of breath, Dizziness, Fainting spells and Chest pain Follow Up Care Test Results: Test results from this visit will be discussed in further detail at your follow-up appointment, if applicable. Discharge Plan Admission Admit Date/Time: 11/17/21 23:48 Primary Reason for Your Visit: DKA Attending Provider: Ronaldo Hickey Primary Care Provider: Shena Jeffers Consulting Providers: Dominic Smith Discharge Orders/Prescriptions Prescriptions: New Lantus U-100 Insulin 100 unit/mL solution 10 unit subcut QPM 30 Days Qty: 3 RF: 0 Xarelto DVT-PE Treat 30d Start 15 mg (42)- 20 mg (9) tablets,dose pack See Rx Instructions .ROUTE .COMPLEX Qty: 51 RF: 0 Continued insulin aspart U-100 [Novolog U-100 Insulin aspart] 100 unit/mL solution 100 unit continuous subcutaneous infusion .continuous RF: 0 levothyroxine 112 mcg tablet 112 mcg PO DAILY RF: 0 amlodipine-benazepril [Lotrel] 5-10 mg capsule 1 cap PO DAILY RF: 0 oxybutynin chloride 5 mg tablet 10 mg PO DAILY RF: 0 metoprolol succinate [Toprol XL] 50 mg tablet extended release 24 hr 50 mg PO DAILY RF: 0 simvastatin 10 mg tablet 10 mg PO DAILY RF: 0 fluticasone propion-salmeterol [Wixela Inhub] 100-50 mcg/dose blister with device 1 inh inhalation BID PRN (Reason: SOB) RF: 0 albuterol sulfate [Proventil HFA] 90 mcg/actuation HFA aerosol inhaler 1 puff inhalation ONCE PRN (Reason: shortness of breath or wheezing) RF: 0 Discontinued Eliquis DVT-PE Treat 30D Start 5 mg (74 tabs) tablets,dose pack 5 mg PO BID Qty: 74 RF: 0 Referrals / Follow Up: Shena Jeffers DO [Primary Care Provider] - In 1 Week Haresh Ceja MD [STAFF PHYSICIAN] - 01/22/22 9:00 am Disposition Disposition (needs filled in before D/C Order can be placed): Home, Self Care
--- NOTE | 2021-11-22 09:08 | PCM.DC.SUM ---
Documented by User: Nubia Koo NP, ELECTROENCEPHALOGRAPH TECHNICIAN-C 11/22/21 09:24 Providers Date of Admission: 11/17/21 Date of Discharge: 11/22/21 Primary Care Physician: Dr. Shena Jeffers DO Consultations 11/18/21 01:31 Consult: Hand Braille Transcriber / Pulmonary Medicine Routine Consulting Provider: Dominic Smith Reason for Consult: DKA, THANIA, encephalopathy EMERGENT Consult: No MD Notified: Yes Date Notified: 11/17/21 Time Notified: 23:54 Method of Notification: cortext Reason For Visit: DKA, THANIA, ENCEPHALOPATHY Diagnosis Discharge Diagnosis (1) DKA (diabetic ketoacidoses): Status: Acute Code(s): E11.10 - Type 2 diabetes mellitus with ketoacidosis without coma Qualifiers: Diabetes mellitus complication detail: with coma Diabetes mellitus type: other specified (including YANELIS) Qualified Code(s): E13.11 - Other specified diabetes mellitus with ketoacidosis with coma (2) Encephalopathy acute: Status: Acute Code(s): G93.40 - Encephalopathy, unspecified Medications at Discharge Home Medications albuterol sulfate 90 mcg/actuation aerosol inhaler 1 puff INHALATION ONCE PRN 09/08/21 amlodipine 5 mg-benazepril 10 mg capsule 1 cap PO DAILY 09/08/21 fluticasone 100 mcg-salmeterol 50 mcg/dose blistr powdr for inhalation 1 inh INHALATION BID PRN 09/08/21 insulin aspart U-100 100 unit/mL subcutaneous solution 100 unit CONTINUOUS SUBCUTANEOUS INFUSION .continuous ml 09/08/21 levothyroxine 112 mcg tablet 112 mcg PO DAILY 09/08/21 metoprolol succinate 50 mg tablet,extended release 24 hr 50 mg PO DAILY 09/08/21 oxybutynin chloride 5 mg tablet 10 mg PO DAILY tab 09/08/21 simvastatin 10 mg tablet 10 mg PO DAILY 09/08/21 insulin glargine [Lantus U-100 Insulin] 10 unit SUBCUT QPM 30 Days #3 ml 11/22/21 rivaroxaban [Xarelto] 20 mg PO DAILY #30 tab 11/22/21 Hospital Course Operations None Procedures None Summary of Care Provided Hospital Course: Patient is a 76-year-old female admitted 11/17/2021 due to unresponsiveness with intractable nausea, vomiting. 1. DKA in the setting of YANELIS/IDDM-on insulin pump at baseline. Patient states she has been on insulin pump for years and has never had significant difficulties with blood glucose. Initially placed on insulin drip. DKA resolved. Transitioned to home insulin pump. Lantus 10 units nightly added. Patient has upcoming follow-up with endocrinology. Continue close glucose monitoring at discharge. Follow-up with PCP in 1 week. 2. Metabolic encephalopathy secondary to #1-resolved. 3. Acute kidney injury-secondary to above. Resolved. 4. Hypothyroidism with elevated TSH-T4 normal. Continue home Synthroid regimen. 5. Hypokalemia/hypophosphatemia-replace per protocol. 6. History of recent bilateral PE with hypoxic respiratory failure- Remains on supplemental oxygen. Previously on Eliquis however she states she stopped taking it 1 week ago as her insurance did not cover it and she was unable to afford it. Discussed with pharmacy, patient's insurance will cover Xarelto. Initiated Xarelto at discharge. Continue follow-up with PCP. 7. Chronic COPD-as needed albuterol aerosol. 8. Tobacco dependence-encouraged cessation. 9. Hypertension-continue home regimen. 10. Hyperlipidemia-continue statin. 11. Urinary incontinence-oxybutynin resumed. Physical Exam Const alert, oriented x3 and no apparent distress Orientation / Consciousness: awake, oriented to person, oriented to place and oriented to time HEENT normocephalic and moist oral mucous membranes Eyes PERRL, EOMs intact bilaterally and conjunctivae normal Neck no lymphadenopathy Resp normal respiratory effort and clear to auscultation bilaterally Cardio regular rate, regular rhythm and no murmurs Peripheral Pulses: pulses 2+ throughout GI normal to inspection, nondistended, normoactive bowel sounds, non-tender and non-distended Extremity normal to inspection Skin no rashes or lesions noted Lesions: no lesions Rashes: no rashes Trauma: no lacerations or abrasions Neuro CN's II-XII intact bilaterally, no focal motor deficits, no sensory deficits noted and deep tendon reflexes 2+ bilaterally Psych mental status grossly normal and affect normal Patient seen and examined prior to discharge. Physical assessment as noted above. Patient is stable for discharge with follow up recommendations as noted above. This patient was seen by EDDIE Espinoza under the supervision of Dr. Hickey. Time spent examining patient, reviewing data and subsequent management of care: 14 Minutes Medical Records Data Medical Nutrition Assessment Dietitian: Malnutrition Criteria Met Start: 11/18/21 12:50 Freq: Status: Active Protocol: Document 11/18/21 12:50 RMA (Rec: 11/18/21 12:50 RMA [id number]) Nutrition Malnutrition Evidence of Malnutrition Exists Yes Malnutrition (severe): Chronic Evidenced By Suboptimal Energy Intake ( Severe),Weight Loss (Severe) Clinical Problem Chronic Disease or Condition Related Malnutrition Etiology Severe protein-calorie malnutrition in the context of chronic disease related to increased energy expenditure and inadequate oral intake; N/ V on admission Signs/Symptoms as evidenced by NPO and wt loss~6-7% x past 6 weeks Status Active Problem Recommendation Dietitian Recommendations/Changes Advance diet once medically able to 2000 calorie/ consistent carbohydrate/ cardiac. Will offer glucerna shake as diet advanced from NPO. 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 Weight / BMI Weight Weight: 156 lb 15.506 oz Body Mass Index (BMI) 27.8 ABG / Lab / Microbiology Data Result Diagrams: 11/20/21 08:05 11/22/21 08:16 Laboratory: Laboratory Results - last 24 hr 11/21/21 04:43: Sodium 139, Potassium 3.0 L, Chloride 102, Carbon Dioxide 31.0, Anion Gap 6, BUN 16, Creatinine 0.86, Estim Creat Clear Calc 42.64, Est GFR (MDRD) Af Amer 82, Est GFR (MDRD) Non-Af 68, BUN/Creatinine Ratio 18.6, Glucose 86, Calcium 8.4 L, Phosphorus 2.6, Magnesium 2.0 11/21/21 06:29: POC Glucose 100 11/21/21 11:25: POC Glucose 284 H 11/21/21 13:00: POC Glucose 275 H 11/21/21 16:44: POC Glucose 97 11/21/21 20:56: POC Glucose 204 H 11/22/21 04:35: Sodium Cancelled, Potassium Cancelled, Chloride Cancelled, Carbon Dioxide Cancelled, Anion Gap Cancelled, BUN Cancelled, Creatinine Cancelled, Estim Creat Clear Calc Cancelled, Est GFR (MDRD) Af Amer Cancelled, Est GFR (MDRD) Non-Af Cancelled, BUN/Creatinine Ratio Cancelled, Glucose Cancelled, Calcium Cancelled 11/22/21 06:35: POC Glucose 58 L 11/22/21 06:57: POC Glucose 95 11/22/21 08:16: Sodium 135 L, Potassium 3.7, Chloride 101, Carbon Dioxide 29.0, Anion Gap 5, BUN 12, Creatinine 0.84, Estim Creat Clear Calc 43.66, Est GFR (MDRD) Af Amer 84, Est GFR (MDRD) Non-Af 70, BUN/Creatinine Ratio 14.3, Glucose 199 H, Calcium 8.6 Microbiology: Microbiology 11/17/21 23:20 Blood Culture (Wb) - Anticubital Right Blood Culture - Preliminary No growth in 48 hours. 11/17/21 23:20 Blood Culture (Wb) - Anticubital Right Blood Culture - Preliminary No growth in 48 hours. 11/17/21 22:42 Nasal Secretion SARS-CoV-2 Antigen (Rapid) - Final D/C Instructions Discharge Diet: Carb Control Diet Call your doctor if you observe: Shortness of breath, Dizziness, Fainting spells and Chest pain Meaningful Use Info Meaningful Use Diagnoses (Choose all that apply): None applicable Discharge Plan Admission Admit Date/Time: 11/17/21 23:48 Primary Reason for Your Visit: DKA Attending Provider: Ronaldo Hickey Primary Care Provider: Shena Jeffers Consulting Providers: Dominic Smith Discharge Orders/Prescriptions Prescriptions: New Lantus U-100 Insulin 100 unit/mL solution 10 unit subcut QPM 30 Days Qty: 3 RF: 0 Xarelto 20 mg tablet 20 mg PO DAILY Qty: 30 RF: 0 Continued insulin aspart U-100 [Novolog U-100 Insulin aspart] 100 unit/mL solution 100 unit continuous subcutaneous infusion .continuous RF: 0 levothyroxine 112 mcg tablet 112 mcg PO DAILY RF: 0 amlodipine-benazepril [Lotrel] 5-10 mg capsule 1 cap PO DAILY RF: 0 oxybutynin chloride 5 mg tablet 10 mg PO DAILY RF: 0 metoprolol succinate [Toprol XL] 50 mg tablet extended release 24 hr 50 mg PO DAILY RF: 0 simvastatin 10 mg tablet 10 mg PO DAILY RF: 0 fluticasone propion-salmeterol [Wixela Inhub] 100-50 mcg/dose blister with device 1 inh inhalation BID PRN (Reason: SOB) RF: 0 albuterol sulfate [Proventil HFA] 90 mcg/actuation HFA aerosol inhaler 1 puff inhalation ONCE PRN (Reason: shortness of breath or wheezing) RF: 0 Discontinued Eliquis DVT-PE Treat 30D Start 5 mg (74 tabs) tablets,dose pack 5 mg PO BID Qty: 74 RF: 0 Referrals / Follow Up: Shena Jeffers DO [Primary Care Provider] - In 1 Week Haresh Ceja MD [STAFF PHYSICIAN] - 01/22/22 9:00 am Disposition Disposition (needs filled in before D/C Order can be placed): Home, Self Care Documented by User: Dr. Ronaldo Hickey MD 11/22/21 13:43 Providers Date of Admission: 11/17/21 Reason For Visit: DKA, THANIA, ENCEPHALOPATHY Medications at Discharge Home Medications albuterol sulfate 90 mcg/actuation aerosol inhaler 1 puff INHALATION ONCE PRN 09/08/21 amlodipine 5 mg-benazepril 10 mg capsule 1 cap PO DAILY 09/08/21 fluticasone 100 mcg-salmeterol 50 mcg/dose blistr powdr for inhalation 1 inh INHALATION BID PRN 09/08/21 insulin aspart U-100 100 unit/mL subcutaneous solution 100 unit CONTINUOUS SUBCUTANEOUS INFUSION .continuous ml 09/08/21 levothyroxine 112 mcg tablet 112 mcg PO DAILY 09/08/21 metoprolol succinate 50 mg tablet,extended release 24 hr 50 mg PO DAILY 09/08/21 oxybutynin chloride 5 mg tablet 10 mg PO DAILY tab 09/08/21 simvastatin 10 mg tablet 10 mg PO DAILY 09/08/21 insulin glargine [Lantus U-100 Insulin] 10 unit SUBCUT QPM 30 Days #3 ml 11/22/21 rivaroxaban [Xarelto] 20 mg PO DAILY #30 tab 11/22/21 Hospital Course Summary of Care Provided Hospital Course: This patient was seen in conjunction with ELECTROENCEPHALOGRAPH TECHNICIANNubia. I have independently interviewed and examined the patient and reviewed pertinent history, examination findings, laboratory and plan of management. I have reviewed the note and agree with the documented findings with the few additional points. In brief the patient was admitted for acute metabolic encephalopathy due to DKA. DKA and metabolic encephalopathy resolved. Nubia, AISHA and I both infer that patient might have mild dementia she does not remember the function of insulin pump. Her Accu-Chek was 284 mg/dL and she pushed 2.6 units of insulin through pump. Patient was advised Accu-Cheks before meals and at bedtime advised scheduled Humalog insulin 3 times daily with meals along with coverage insulin and scheduled Lantus insulin. 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 She also had recent PE in August and on Eliquis but she is not taking for last 1 month. She took Eliquis for 1 month in September but she could not continue because of not coverage of Eliquis on 2 L of home oxygen since PE history of chronic hypoxic respiratory failure. We called the pharmacy and Xarelto is covered. Prescription given for Xarelto and advised to continue at least 3 months of anticoagulant with 6 months preferable. Patient is ambulatory in home and in the community and requires home oxygen with portability. Rest of comorbidities as mentioned above. I have discussed my assessment with ELECTROENCEPHALOGRAPH TECHNICIAN, Nubia and orders have been reviewed. Physical Exam Narrative General: Alert, Oriented x3, Cooperative HEENT: Atraumatic, PERRLA, EOMI, Normocephalic Oral: No Gingival or Mucosal Lesions/ Ulcerations Neck: Supple, No JVD, Negative Carotid Bruits Lungs: Air entry diminished in bilateral lung bases. No crepitation/rhonchi Cardiovascular: Regular rate, Regular Rhythm, Normal S1, Normal S2, No murmurs Abdomen: Bowel Sounds Present, Soft, Non Tender, Non-Distended : No renal angle tenderness. No suprapubic tenderness. Extremities: No edema, Capillary Refill Less than 3 Seconds Skin: No rashes, No breakdown Musculoskeletal: No Tenderness to Palpation of Joints or Extremities Neurological: Cranial nerves II-XII grossly intact, DTR 2+/4 and Symmetrical, Neuro grossly intact Psych/Mental Status: Normal Affect, Appropriate. ABG / Lab / Microbiology Data Result Diagrams: 11/20/21 08:05 11/22/21 08:16 Discharge Plan Admission Admit Date/Time: 11/17/21 23:48 Primary Reason for Your Visit: DKA Attending Provider: Ronaldo Hickey Primary Care Provider: Shena Jeffers Consulting Providers: Dominic Smith Discharge Orders/Prescriptions Prescriptions: New Lantus U-100 Insulin 100 unit/mL solution 10 unit subcut QPM 30 Days Qty: 3 RF: 0 Xarelto 20 mg tablet 20 mg PO DAILY Qty: 30 RF: 0 Continued insulin aspart U-100 [Novolog U-100 Insulin aspart] 100 unit/mL solution 100 unit continuous subcutaneous infusion .continuous RF: 0 levothyroxine 112 mcg tablet 112 mcg PO DAILY RF: 0 amlodipine-benazepril [Lotrel] 5-10 mg capsule 1 cap PO DAILY RF: 0 oxybutynin chloride 5 mg tablet 10 mg PO DAILY RF: 0 metoprolol succinate [Toprol XL] 50 mg tablet extended release 24 hr 50 mg PO DAILY RF: 0 simvastatin 10 mg tablet 10 mg PO DAILY RF: 0 fluticasone propion-salmeterol [Wixela Inhub] 100-50 mcg/dose blister with device 1 inh inhalation BID PRN (Reason: SOB) RF: 0 albuterol sulfate [Proventil HFA] 90 mcg/actuation HFA aerosol inhaler 1 puff inhalation ONCE PRN (Reason: shortness of breath or wheezing) RF: 0 Discontinued Eliquis DVT-PE Treat 30D Start 5 mg (74 tabs) tablets,dose pack 5 mg PO BID Qty: 74 RF: 0 Referrals / Follow Up: Shena Jeffers DO [Primary Care Provider] - In 1 Week Haresh Ceaj MD [STAFF PHYSICIAN] - 01/22/22 9:00 am Disposition Disposition (needs filled in before D/C Order can be placed): Home, Self Care Charges/Coding Visit Charges Inpatient E&M: 87405 Disch Hosp
[2021-11-22 09:15] VITALS: BP 119/62; PULSE 90; RESP 16; TEMP 37; O2SAT 94
[2021-11-22] MEDS: Polyethylene Glycol 3350 17 GM PACKET PO (09:24)
[2021-11-22] MEDS: Docusate Sodium 100 MG Capsule PO (09:24)
[2021-11-22 09:25] VITALS: PULSE 90
[2021-11-22] MEDS: amLODIPine 5 MG Tablet PO (09:25)
[2021-11-22] MEDS: APIXABAN 5 MG TABLET PO (09:25)
[2021-11-22] MEDS: Pantoprazole Sodium 40 MG Tablet PO (09:25)
[2021-11-22] MEDS: Tolterodine Tartrate 2 MG CAP.SA PO (09:25)
[2021-11-22] MEDS: Metoprolol(XL)Succ 50 MG Tablet PO (09:25)
[2021-11-22 11:51] LABS: Bedside Glucose 207 mg/dL (70-110)
--- NOTE | 2021-11-23 09:38 | CASEMGMT ---
Addendum entered by Jeanine Cerda 11/23/21 10:54: Call from Annia at [facility] and she states they can accept pt and will call pt to set up. Yas CARMONA CM Original Note: This KRISTINE ALEMAN received call from pt stating she would now like [facility] set up for SN, PT/OT and states she would like [facility]. Call to Annia at [facility] with referral, voices understanding. Yas CARMONA CM
== END 2021-11-22 13:06 | disposition home or self-care (01) | DRG 637 ==
LOC: ED 23:06 → ICU 11-18 02:28 → PCU 11-19 12:58
PROVIDERS: Internal Medicine Critical Care Medicine; Nurse Practitioner Family; Admitting Provider Family Medicine; Emergency Provider Emergency Medicine; PCP Internal Medicine; Visit Provider Internal Medicine
DX: E13.11 Other specified diabetes mellitus with ketoacidosis with coma (principal); G93.41 Metabolic encephalopathy; E46 Unspecified protein-calorie malnutrition; N17.9 Acute kidney failure, unspecified; J96.11 Chronic respiratory failure with hypoxia; E87.3 Alkalosis; J44.9 Chronic obstructive pulmonary disease, unspecified; Z79.4 Long term (current) use of insulin; E78.5 Hyperlipidemia, unspecified; F17.210 Nicotine dependence, cigarettes, uncomplicated; I10 Essential (primary) hypertension; E03.9 Hypothyroidism, unspecified; E87.6 Hypokalemia; E88.81 Metabolic syndrome and other insulin resistance; E07.81 Sick-euthyroid syndrome; Z79.01 Long term (current) use of anticoagulants; Z96.41 Presence of insulin pump (external) (internal); Z68.28 Body mass index [BMI] 28.0-28.9, adult; Z79.890 Hormone replacement therapy; Z86.711 Personal history of pulmonary embolism; Z79.899 Other long term (current) drug therapy; R32 Unspecified urinary incontinence
CPT/HCPCS: 36415; 36600; 51702; 70450; 71045; 80048; 80202; 80307; 81001; 82009; 82140; 82803; 82962; 83036; 83605; 83735; 84100; 84145; 84439; 84443; 84484; 85025; 85610; 85730; 87040; 87426; 87641; 93005; 94640; 97110; 97162; 97166; 97535; 97802; 99251; 99285; 99406; J7030; J7040; J7050; A4216; G0463; J2405

== ENCOUNTER 2021-12-01 10:27 | Emergency (ER) | payer MEDICARE, OTHER, SELFPAY ==
[2021-12-01 10:27] VITALS: BP 128/86; PULSE 96; RESP 18; TEMP 35.9; O2SAT 94; BMI 25.0
--- NOTE | 2021-12-01 10:45 | CT_ITS ---
STUDY: CT BRAIN WITHOUT CONTRAST REASON FOR EXAM: Female, 76 years old. Fall RADIATION DOSAGE (If Supplied By Facility): CTDIvol = ( 44.99 ) mGy, DLP = ( 829.85 ) mGycm TECHNIQUE: Transaxial CT imaging of the brain was performed without administration of intravenous contrast material. Individualized dose optimization techniques were used for this CT. COMPARISON: Comparison is made with prior study dated 11/17/2021. FINDINGS: Normal soft tissue structures. 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 There is mild cerebral atrophy with widening of the extra-axial spaces and ventricular dilatation. There are areas of decreased attenuation within the white matter tracts of the supratentorial brain, consistent with microvascular disease changes. Normal basal ganglia and thalami. Normal brainstem. Normal cerebellum. There is no intracranial hemorrhage. There are no findings of an acute ischemic infarction. Atherosclerotic calcification of the vertebral arteries and cavernous portions of the internal carotid arteries bilaterally. Normal visualized paranasal sinuses. CT/Brain/Head without Contrast IMPRESSION: Chronic involutional changes of the brain. Electronically Signed: Ayden Sifuentes MD at 11:19 EST ,
--- NOTE | 2021-12-01 10:45 | EX.ED.GENINJ ---
HPI History of Present Illness Chief Complaint: Laceration Informant: patient and spouse/S.O. Onset/Context/Timing Onset: Yesterday Mechanism/Context: Fall Narrative Narrative: Patient presents with laceration to left eyebrow after a fall. Patient fell 8:30 PM last evening. She had come back from the store and was getting out of her car in the garage when she fell. She does not remember she slipped on something or her legs just gave out on her. Patient was recently admitted to the hospital for DKA and is currently on Xarelto secondary to pulmonary emboli. Patient denies neck pain. PFSH PFS Medical History COPD (chronic obstructive pulmonary disease) Diabetes HLD (hyperlipidemia) HTN (hypertension) Hypothyroidism Osteopenia Pulmonary embolism, bilateral Smoker Home Medications albuterol sulfate 90 mcg/actuation aerosol inhaler 1 puff INHALATION ONCE PRN 09/08/21 [History Last Taken 10/05/21] amlodipine 5 mg-benazepril 10 mg capsule 1 cap PO DAILY 09/08/21 [History Last Taken 10/06/21] fluticasone 100 mcg-salmeterol 50 mcg/dose blistr powdr for inhalation 1 inh INHALATION BID PRN 09/08/21 [History Last Taken 10/05/21] insulin aspart U-100 100 unit/mL subcutaneous solution 100 unit CONTINUOUS SUBCUTANEOUS INFUSION .continuous ml 09/08/21 [History Last Taken 10/06/21] levothyroxine 112 mcg tablet 112 mcg PO DAILY 09/08/21 [History Last Taken 10/06/21] metoprolol succinate 50 mg tablet,extended release 24 hr 50 mg PO DAILY 09/08/21 [History Last Taken 10/06/21] oxybutynin chloride 5 mg tablet 10 mg PO DAILY tab 09/08/21 [History Last Taken 10/06/21] simvastatin 10 mg tablet 10 mg PO DAILY 09/08/21 [History Last Taken 10/05/21] insulin glargine [Lantus U-100 Insulin] 10 unit SUBCUT QPM 30 Days #3 ml 11/22/21 [Rx Last Taken Unknown] rivaroxaban [Xarelto] 20 mg PO DAILY #30 tab 11/22/21 [Rx Last Taken Unknown] Allergy/AdvReac Type Severity Reaction Status Date / Time ciprofloxacin [From Cipro] Allergy Intermediate hives Verified 12/01/21 10:27 Sulfa (Sulfonamide Allergy Intermediate hives Verified 12/01/21 10:27 Antibiotics) Family History Father Diabetes Respiratory disease Surgical History S/P insertion of insulin pump Social History household members: none Smoking Status: Current every day smoker tobacco type: cigarettes alcohol intake: current alcohol intake frequency: a few times a month substance use type: does not use ROS ROS ED Constitutional Constitutional ED: Denies chills or fever(s) Eyes Eyes: Denies change in vision ENT ENT ED: Denies sore throat Cardiovascular Cardiovascular: Denies chest pain Respiratory/Chest Respiratory/Chest: Denies cough or dyspnea Gastrointestinal Gastrointestinal: Denies abdominal pain, diarrhea, nausea or vomiting Genitourinary Genitourinary ED: Denies dysuria Musculoskeletal Musculoskeletal: Denies back pain Integumentary Reports other Details: Laceration left eyebrow ; Denies rash Neurologic Neurologic: Reports headache(s); Denies weakness Allergic/Immunologic Allergic/Immunologic ED: Denies urticaria EXAM Physical Exam Const Vital Signs: 12/01/21 10:27 Temperature 96.7 F L Temperature Source Temporal Pulse Rate 96 Respiratory Rate 18 Blood Pressure 128/86 H Blood Pressure Mean 100 Pulse Ox 94 Oxygen Delivery Method Room Air Positive well nourished and well developed General Appearance ED: well developed HEENT HEENT Narrative: 3 cm laceration to the left eyebrow region. Left periorbital ecchymosis noted. Eyes PERRL and EOMs intact bilaterally Neck Neck Narrative: No C-spine tenderness. Chest Wall inspection of chest normal and palpation of chest normal Resp normal respiratory effort and clear to auscultation bilaterally Cardio regular rhythm Rate: regular rate GI non-tender Palpation: soft Back/Spine no thoracic nor lumbar tenderness Extremity full ROM General Extremety ED: Negative for tenderness Neuro oriented x3 Neuro Narrative: No focal neurologic deficits. Sensorium / Orientation: alert Psych mental status grossly normal Skin Skin Narrative: Facial laceration as noted above. PROC Procedures Lacerations Left eyebrow laceration: Length: 1.18 in Depth: Sub Q Prep: Shure-Clens Laceration repair: Lidocaine and Local Number of Sutures/Isrrael: 6 Suture Information: Ethilon, Simple and 5-0 Comment: Wound anesthetized with 2 cc of 1% lidocaine. Wound cleansed and irrigated. 6 simple interrupted sutures placed with good approximation. MDM MDM MDM Narrative Medical decision making narrative: Patient sent for head CT. Radiography Diagnostic Testing: Clinical Impression(s) from Imaging Studies Brain CT 12/01/21 10:45 IMPRESSION: Chronic involutional changes of the brain. Electronically Signed: Ayden Sifuentes MD at 11:19 EST , Treatment and Re-Evaluation Comments:: CT scan of the head shows chronic changes only. Patient consented for laceration repair. Please see procedure note. Patient have sutures removed in 1 week. Discharge Plan Triage Chief Complaint: Laceration Other Complaint: Fall Head Injury ED Provider: Gaby Saravia Dx/Rx/DC Orders Clinical Impression: Fall, Facial laceration Instructions: ED Mechanical Fall, ED Laceration: All Closures Prescriptions: No Action insulin aspart U-100 [Novolog U-100 Insulin aspart] 100 unit/mL solution 100 unit continuous subcutaneous infusion .continuous RF: 0 levothyroxine 112 mcg tablet 112 mcg PO DAILY RF: 0 amlodipine-benazepril [Lotrel] 5-10 mg capsule 1 cap PO DAILY RF: 0 oxybutynin chloride 5 mg tablet 10 mg PO DAILY RF: 0 metoprolol succinate [Toprol XL] 50 mg tablet extended release 24 hr 50 mg PO DAILY RF: 0 simvastatin 10 mg tablet 10 mg PO DAILY RF: 0 fluticasone propion-salmeterol [Wixela Inhub] 100-50 mcg/dose blister with device 1 inh inhalation BID PRN (Reason: SOB) RF: 0 albuterol sulfate [Proventil HFA] 90 mcg/actuation HFA aerosol inhaler 1 puff inhalation ONCE PRN (Reason: shortness of breath or wheezing) RF: 0 Lantus U-100 Insulin 100 unit/mL solution 10 unit subcut QPM 30 Days Qty: 3 RF: 0 Xarelto 20 mg tablet 20 mg PO DAILY Qty: 30 RF: 0 Primary Care Provider: Shena Jeffers Referrals: Shena Jeffers DO [Primary Care Provider] - 7 Days for suture removal Disposition Disposition: Home, Self Care
[2021-12-01] MEDS: Lidocaine 1% (20 ml mdv) 20 ML Vial INFILT (11:47)
== END 2021-12-01 12:27 | disposition home or self-care (01) ==
LOC: ED 11:56
PROVIDERS: Emergency Provider Emergency Medicine; PCP Internal Medicine; Visit Provider Emergency Medicine
DX: S01.112A Laceration without foreign body of left eyelid and periocular area, initial encounter (principal); J44.9 Chronic obstructive pulmonary disease, unspecified; E11.9 Type 2 diabetes mellitus without complications; Z79.4 Long term (current) use of insulin; F17.210 Nicotine dependence, cigarettes, uncomplicated; I10 Essential (primary) hypertension; E78.5 Hyperlipidemia, unspecified; E03.9 Hypothyroidism, unspecified; Z86.711 Personal history of pulmonary embolism; Z79.01 Long term (current) use of anticoagulants; W19.XXXA Unspecified fall, initial encounter; Z79.899 Other long term (current) drug therapy
CPT/HCPCS: 12013; 70450; 99283

== ENCOUNTER 2022-01-20 14:53 | Outpatient (CLI) | payer MEDICARE, OTHER, SELFPAY ==
[2022-01-20 15:05] LABS: Hematocrit 44.2 % (37-47); Hemoglobin 14.6 g/dL (12.0-15.0); Mean Corpuscular Volume 87.9 fL (81-99); Mean Platelet Vol. 11.3 fl (6.2-12.0); Platelet Count 340 K/mm3 (150-450); RBC Distribution Width CV 16.9 % (11.6-14.6); RBC Distribution Width SD 54.7 fl (35.1-43.9); Red Blood Count 5.03 M/mm3 (4.2-5.4); White Blood Count 8.7 K/mm3 (4.4-11.0)
[2022-01-20 15:27] LABS: Albumin, Serum 3.4 g/dL (3.2-5.0); BUN 27 mg/dL (7-18); BUN/Creat Ratio 21.6 RATIO (10-20); Calcium,Total 9.2 mg/dL (8.5-10.1); Chloride 95 mmol/L (98-107); Creatinine, Serum 1.25 mg/dL (0.55-1.02); EST Glomerular Filtration Rate 44 mL/min (>60); Est Glom Filt Rate - Afr Amer 53 mL/min (>60); Glucose 388 mg/dL (74-106); Phosphorus 3.8 mg/dL (2.5-4.9); Potassium 4.6 mmol/L (3.5-5.1); Sodium Level 134 mmol/L (136-145)
[2022-01-20 15:36] LABS: BNP,B-Type NATRIURETIC PEPTIDE 68.2 pg/mL (0-100)
[2022-01-20 15:43] LABS: D-Dimer Quantitative (DVT/PE) 0.77 FEU/ug/m (0.27-0.49)
== END 2022-01-20 23:59 | disposition home or self-care (01) ==
LOC: LABSPEC 14:55
PROVIDERS: PCP Internal Medicine; Referring Provider Nurse Practitioner; Visit Provider Nurse Practitioner
DX: R06.02 Shortness of breath (principal)
CPT/HCPCS: 80069; 83880; 85027; 85379

== ENCOUNTER 2022-01-21 16:28 | Outpatient (CLI) | payer MEDICARE, OTHER, SELFPAY ==
--- NOTE | 2022-01-21 16:33 | CT_ITS ---
EXAM: CT ANGIOGRAPHY CHEST WITHOUT AND WITH INTRAVENOUS CONTRAST CLINICAL INDICATION: ELEVATED D-DIMER TECHNIQUE: Helically acquired angiography images were obtained of the chest without and with intravenous contrast. This CT exam was performed using one or more of the following dose reduction techniques: automated exposure control, adjustment of the mA and/or kV according to patient size, and/or use of iterative reconstruction technique. This report was created using [employer] report generation technology. MIP reconstructed images were created and reviewed. CONTRAST: IV 100mL Isovue-370 COMPARISON: 10/06/2021 FINDINGS: PULMONARY ARTERIES: No demonstrated pulmonary embolism or arterial dissection. AORTA: There is atherosclerotic calcification of the aortic arch with tortuosity and elongation of the aortic arch and descending thoracic aorta. Normal in caliber. No evidence of dissection. GREAT VESSELS OF AORTIC ARCH: Unremarkable. Normal in caliber. No evidence of dissection. LUNGS AND PLEURAL SPACES: There are scattered blebs and bullae. This can be seen in pulmonary emphysema. Right lower lobe atelectasis. No mass. No pleural effusion or thickening. No pneumothorax. HEART: There are calcifications of the coronary arteries. No pericardial effusion. No signs of right heart strain, ratio of right ventricle to left ventricle measures less than 1. MEDIASTINUM: Unremarkable. No mediastinal or hilar adenopathy. Esophagus is unremarkable. No hiatal hernia. THYROID: Unremarkable. No thyroid lesions. BONES/JOINTS: There are new T5-T6 compression deformities of the thoracic spine. There are compression deformities of the spine. These are age-indeterminate. MRI could further evaluate if of concern. There are degenerative changes of the shoulders. There are multi-level degenerative changes of the thoracic spine. No suspicious lytic or blastic abnormality. SOFT TISSUES: There are bilateral breast implants. CT/CTA Chest W/WO Contrast IMPRESSION: 1. There are new T5-T6 compression deformities of the thoracic spine. There are compression deformities of the spine. These are age-indeterminate. MRI could further evaluate if of concern. 2. No demonstrated pulmonary embolism or arterial dissection. Electronically Signed: Pelon Hebert MD at 17:45 EDT ,
== END 2022-01-21 23:59 | disposition home or self-care (01) ==
LOC: CT 16:30
PROVIDERS: PCP Internal Medicine; Referring Provider Internal Medicine; Visit Provider Internal Medicine
DX: R79.89 Other specified abnormal findings of blood chemistry (principal)
CPT/HCPCS: 71275; Q9967

== ENCOUNTER 2022-01-27 21:01 | Inpatient (IN) | payer MEDICARE, OTHER, SELFPAY ==
[2022-01-27 21:02] VITALS: BP 99/80; PULSE 115; RESP 24; TEMP 36.4; BMI 23.4
--- NOTE | 2022-01-27 21:10 | EKG12_ITS ---
Test Reason : GEN ILL Blood Pressure : / mmHG Vent. Rate : 118 BPM Atrial Rate : 118 BPM P-R Int : 166 ms QRS Dur : 088 ms QT Int : 326 ms P-R-T Axes : 072 093 005 degrees QTc Int : 456 ms Sinus tachycardia Otherwise normal ECG Confirmed by RICKIE MCKEON, AMY ([id number]), brands editor MERLIN PAGE ([id number]) on 02/03/2022 10:53:57 AM Referred By: NESHA Confirmed By:AMY DAMIAN MD
[2022-01-27 21:12] VITALS: BP 99/80; PULSE 115; RESP 31; O2SAT 100
[2022-01-27] MEDS: 0.9% Normal Saline 1,000 ML 999 ML IV ×2 (21:14→23:16)
[2022-01-27 21:33] LABS: Absolute Lymphocyte Count 0.82 X10^3/uL (0.83-4.51); Absolute Neutrophil Count 11.5 X10^3/uL (2.0-7.7); Basophil# 0.12 X10^3/uL; Basophil% 0.9 % (0-1); Hematocrit 44.9 % (37-47); Hemoglobin 14.4 g/dL (12.0-15.0); Lymphocyte # 0.82 X10^3/ul (0.83-4.51); Lymphocyte % 6.4 % (19-41); Mean Corp Hgb Conc 32.1 g/dL (32-36); Mean Corpuscular Hgb 28.7 pg (27.0-32.0); Mean Corpuscular Volume 89.6 fL (81-99); Mean Platelet Vol. 11.9 fl (6.2-12.0); Monocyte# 0.24 X10^3/uL; Monocyte% 1.9 % (0-10); NRBC Flagged by Analyzer 0 % (0-5); Neutrophil # 11.48 X10^3/uL (2.7-7.7); Neutrophil % 89.7 % (47-70); Platelet Count 334 K/mm3 (150-450); RBC Distribution Width CV 16.4 % (11.6-14.6); Red Blood Count 5.01 M/mm3 (4.2-5.4); White Blood Count 12.8 K/mm3 (4.4-11.0)
[2022-01-27 21:35] LABS: Blood Gas Specimen Type VEN; VBG BASE EXCESS -12 mmol/L (-1.0-3.5); VBG Bicarbonate 15 mmol/L (22-26); VBG PO2 66 mmHg (25-40); VBG SO2 90 % (50-70); VBG TCO2 16 mmol/L (23-33); VBG pCO2 31.3 mmHg (41-51); VBG pH 7.28 (7.32-7.42)
--- NOTE | 2022-01-27 21:36 | ED.RN ---
insulin pump stopped by . pump was disconnected per ed dr order. pump was handed to visitor at bedside. martin meyer, [id number]
--- NOTE | 2022-01-27 21:38 | RAD_ITS ---
INDICATION: weakness EXAMINATION/TECHNIQUE: X-RAY - XR Chest 1 View COMPARISON: 01/20/2022 FINDINGS: LINES/DEVICES: None. LUNGS: No consolidation, edema or effusion. No pneumothorax. MEDIASTINUM AND CARDIOVASCULAR STRUCTURES: Atherosclerotic calcifications and cardiomediastinal contours, similar compared to the prior. BONES AND SOFT TISSUES: Bilateral partially calcified breast prostheses again seen. Degenerative changes visualized spine. No acute osseous abnormality. RAD/Chest 1 View (Portable) IMPRESSION: No acute cardiopulmonary disease. Electronically Signed: Sree Cuellar MD at 22:03 EDT ,
--- NOTE | 2022-01-27 21:55 | EX.ED.DYSGE1 ---
HPI History of Present Illness Chief Complaint: Hyperglycemia Informant: spouse/S.O. Limited: stupor Narrative Narrative: Patient is a 76-year-old female with history of insulin-dependent diabetes mellitus on an insulin pump, PE on Xarelto, hypertension hyperlipidemia as well as recent admission for DKA presenting for nausea, vomiting and confusion. Spouse states her blood sugars been running high for the past 2 days. This is similar to her last presentation of DKA.No report of any falls or injuries. Patient is quite somnolent but is able to arouse to answer some questions. She denies any acute complaints at this time. Chart review shows that patient was discharged from the hospital 11/22/2021 for DKA with associated cephalopathy. PFSH PFS Medical History COPD (chronic obstructive pulmonary disease) Diabetes Emphysema lung HLD (hyperlipidemia) HTN (hypertension) Hypothyroidism Osteopenia Pulmonary embolism, bilateral Smoker Home Medications albuterol sulfate 90 mcg/actuation aerosol inhaler 1 puff INHALATION ONCE PRN 09/08/21 [History Last Taken 10/05/21] amlodipine 5 mg-benazepril 10 mg capsule 1 cap PO DAILY 09/08/21 [History Last Taken 10/06/21] fluticasone 100 mcg-salmeterol 50 mcg/dose blistr powdr for inhalation 1 inh INHALATION BID PRN 09/08/21 [History Last Taken 10/05/21] insulin aspart U-100 100 unit/mL subcutaneous solution 100 unit CONTINUOUS SUBCUTANEOUS INFUSION .continuous ml 09/08/21 [History Last Taken 10/06/21] levothyroxine 112 mcg tablet 112 mcg PO DAILY 09/08/21 [History Last Taken 10/06/21] metoprolol succinate 50 mg tablet,extended release 24 hr 50 mg PO DAILY 09/08/21 [History Last Taken 10/06/21] oxybutynin chloride 5 mg tablet 10 mg PO DAILY tab 09/08/21 [History Last Taken 10/06/21] simvastatin 10 mg tablet 10 mg PO DAILY 09/08/21 [History Last Taken 10/05/21] insulin glargine [Lantus U-100 Insulin] 10 unit SUBCUT QPM 30 Days #3 ml 11/22/21 [Rx Last Taken Unknown] rivaroxaban [Xarelto] 20 mg PO DAILY #30 tab 11/22/21 [Rx Last Taken Unknown] Allergy/AdvReac Type Severity Reaction Status Date / Time ciprofloxacin [From Cipro] Allergy Intermediate hives Verified 12/01/21 10:27 Sulfa (Sulfonamide Allergy Intermediate hives Verified 12/01/21 10:27 Antibiotics) Family History Father Diabetes Respiratory disease Surgical History S/P insertion of insulin pump Social History (Updated 01/27/22 @ 22:[address] Roxanne Saxena MD) household members: none Smoking Status: Current every day smoker tobacco type: cigarettes Smoking packs per day: 0.5 Smoking cigarettes per day: 10.0 alcohol intake: current alcohol intake frequency: a few times a month substance use type: does not use ROS ROS ED Review of Systems ROS Unobtainable: due to encephalopathy EXAM Physical Exam Const Vital Signs: 01/27/22 21:02 01/27/22 21:12 01/27/22 22:15 Temperature 97.6 F L Temperature Source Temporal Pulse Rate 115 H 115 H 128 H Respiratory Rate 24 H 31 H 30 H Blood Pressure 99/80 99/80 123/44 H Blood Pressure Mean 86 86 70 Pulse Ox 100 97 Oxygen Delivery Method Nasal Cannula Nasal Cannula Oxygen Flow Rate (L/min) 2 2 Positive well nourished and well developed General Appearance ED: well developed HEENT Reports dry mucous membranes Negative for trauma Mouth ED: Yes dry mucous membranes Mouth: dry mucous membranes Eyes PERRL and EOMs intact bilaterally Neck no lymphadenopathy and supple Neck Narrative: No meningeal signs Chest Wall inspection of chest normal Resp clear to auscultation bilaterally Resp Narrative: Tachypnea Cardio regular rhythm and no murmurs Rate: tachycardic GI normal to inspection, nondistended, normoactive bowel sounds and non-tender Palpation: soft Back/Spine no CVA tenderness Extremity normal to inspection General Extremety ED: Negative for edema or tenderness General Extremity: Negative for edema Neuro Neuro Narrative: Somnolent. Generalized weakness. No focal deficits appreciated. Sensorium / Orientation: alert Psych mental status grossly normal Skin no rashes or lesions noted and no wounds MDM MDM MDM Narrative Medical decision making narrative: Patient evaluated for altered mental status and high reading on her glucometer. She is insulin-dependent diabetic. She has been having high blood sugar readings for the past 2 to 3 days. She is already had 1 admission for DKA earlier this year. Presentation is highly concerning for DKA. Patient's blood glucose reads high in the ER. She has a mild leukocytosis of 12.8 which is nonspecific and likely reactive. Her BMP is remarkable for pseudohyponatremia with a sodium of 129, CO2 of 17, anion gap of 23, creatinine of 1.97 and glucose of 887. Potassium is 5.4. I suspect all these changes are secondary to her hyperglycemia. She has small acetone in her high since her troponin is 19. Patient is given 2 L of IV fluid and started on insulin drip. She is given a bolus of 10 units of insulin. Patient is admitted to the ICU. Lab Data Attestation: I reviewed the patient's lab results. Labs: Laboratory Results - last 24 hr 01/27/22 01/27/22 01/27/22 21:15 21:15 21:15 WBC 12.8 H RBC 5.01 Hgb 14.4 Hct 44.9 MCV 89.6 MCH 28.7 MCHC 32.1 RDW Std Deviation 54.0 H RDW Coeff of Kristyn 16.4 H Plt Count 334 MPV 11.9 Immature Gran % (Auto) 1.100 H Neut % (Auto) 89.7 H Lymph % (Auto) 6.4 L [place] % (Auto) 1.9 Eos % (Auto) 0.0 Baso % (Auto) 0.9 Absolute Neuts (auto) 11.5 H Absolute Lymphs (auto) 0.82 L Nucleated RBC % 0 Sodium 129 L Potassium 5.4 H Chloride 89 L Carbon Dioxide 17.0 L Anion Gap 23 H BUN 40 H Creatinine 1.97 H Estim Creat Clear Calc 21.18 Est GFR (MDRD) Af Amer 32 L Est GFR (MDRD) Non-Af 26 L BUN/Creatinine Ratio 20.3 H Glucose 887 H* Calcium 10.2 H Phosphorus 7.0 H Magnesium 2.6 Troponin I High Sens 19 Acetone Level SMALL H POC Glucose 01/27/22 22:20 WBC RBC Hgb Hct MCV MCH MCHC RDW Std Deviation RDW Coeff of Kristyn Plt Count MPV Immature Gran % (Auto) Neut % (Auto) Lymph % (Auto) [place] % (Auto) Eos % (Auto) Baso % (Auto) Absolute Neuts (auto) Absolute Lymphs (auto) Nucleated RBC % Sodium Potassium Chloride Carbon Dioxide Anion Gap BUN Creatinine Estim Creat Clear Calc Est GFR (MDRD) Af Amer Est GFR (MDRD) Non-Af BUN/Creatinine Ratio Glucose Calcium Phosphorus Magnesium Troponin I High Sens Acetone Level POC Glucose > 500 H* ABG Data ABG results: ABG 01/27/22 21:29 Specimen Type TRAMAIEN VBG pH 7.28 L VBG pO2 66 H VBG HCO3 15 L VBG Total CO2 16 L VBG O2 Sat (Calc) 90 H VBG Base Excess -12 L POC Mix VBG pCO2 Pt Tmp 31.3 L Radiography Chest X-Ray - ED: 1 View, Read by ED Physician, Read by Radiologist and No Acute Disease Diagnostic Testing: Clinical Impression(s) from Imaging Studies Chest X-Ray 01/27/22 21:38 IMPRESSION: No acute cardiopulmonary disease. Electronically Signed: Sree Cuellar MD at 22:03 EDT , Brain CT 01/27/22 21:58 Rhythm Strip Rhythm Strip: Sinus Tach Rate: 118 Ectopy: None EKG Initial EKG: Attestation: I personally reviewed and interpreted this EKG as follows: Interpretation: Sinus Tachycardia Comments: Sinus tachycardia rate of 118 Normal axis Normal intervals Normal ST segments Critical Care Time Critical Care Time: Yes Critical care time (excluding procedures): 30-74 minutes (35), Discussing w/Patient &/or Family/Fingerprint Technician, Arranging Admission or Transfer and - (Patient is DKA requiring frequent repeat evaluation, interpretation of labs and arrange admission to the ICU.) Discharge Plan Dx/Rx/DC Orders Clinical Impression: DKA (diabetic ketoacidoses), Encephalopathy acute, THANIA (acute kidney injury) Disposition Disposition: [facility]
--- NOTE | 2022-01-27 21:58 | CT_ITS ---
STUDY: CT BRAIN WITHOUT CONTRAST REASON FOR EXAM: Female, 76 years old. AMS RADIATION DOSAGE (If Supplied By Facility): CTDIvol = ( 44.99 ) mGy, DLP = ( 829.85 ) mGycm HISTORY: AMS TECHNIQUE: CT Head or Brain W/O Contrast Injection COMPARISON: CT brain 12/01/2021 LIMITATIONS: None. BRAIN: Normal maldonado/white matter differentiation. VENTRICLES: No hydrocephalus. Bilateral periventricular hypoattenuation, nonspecific however likely represents chronic microvascular ischemic changes. EXTRA-AXIAL SPACES: No hemorrhages, fluid collections, or masses. CALVARIUM/SKULL BASE: 5 cm calcification along the left parietal calvarium outer table, similar compared to the prior.. FACE/SINUSES: Visualized portions normal. SOFT TISSUES: Normal. OTHER: Status post cataract surgery. CONCLUSION: No intracranial hemorrhage or acute territorial infarction. Senescent changes, similar compared to the prior. Electronically Signed: Sree Cuellar MD at 22:54 EDT , CT/Brain/Head without Contrast
[2022-01-27 22:03] LABS: Anion Gap 23 (5-15); BUN 40 mg/dL (7-18); BUN/Creat Ratio 20.3 RATIO (10-20); Calcium,Total 10.2 mg/dL (8.5-10.1); Chloride 89 mmol/L (98-107); Creatinine, Serum 1.97 mg/dL (0.55-1.02); EST Glomerular Filtration Rate 26 mL/min (>60); Est Glom Filt Rate - Afr Amer 32 mL/min (>60); Estimated Creatinine Clearance 21.18 ml/min; Glucose 887 mg/dL (74-106); Magnesium 2.6 mg/dL (1.6-2.6); Potassium 5.4 mmol/L (3.5-5.1); Sodium Level 129 mmol/L (136-145); Troponin-I HS 19 pg/mL (3.0-54.0)
[2022-01-27 22:15] VITALS: BP 123/44; PULSE 128; RESP 30; O2SAT 97
[2022-01-27 22:25] LABS: Bedside Glucose > 500 mg/dL (74-106)
--- NOTE | 2022-01-27 22:31 | PCM.HP.STD ---
HPI - General General Date of Admission: 01/27/22 Date of Service: 01/27/22 Chief Complaint: Confusion, elevated BS, N/V HPI Narrative The patient is a 76 y/o F w/ PMHx: COPD, HTN, HLD, Hypothyroidism, Hx BL PE on xarelto, Tobacco use, Diabetes mellitus type II with insulin pump in place with prior episodes of DKA who presents to the [facility] ED on 01/27/22 with history of 2 days of progressively worsening nausea, emesis and elevated BS noted at home with glucometer read only noting high with increasing confusion prompting ED evaluation given the similar to prior DKA presentations. Work-up in the ED included T 97.6, heart rate 115, BP 99/80, respiratory rate 31, 100% on 2 L nasal cannula, CBC with WC 12.8, hemoglobin 14.4, platelet 334 with left shift and lymphopenia, VBG with pH 7.28, PO2 66, bicarb 15, CO2 16, 90%, base excess -12, BMP with sodium 129, potassium 5.4, chloride 89, carbon exit 17, anion gap 23, BUN/23/1.97, glucose 87, calcium 10.2, phosphorus 7.0, magnesium 2.6, troponin 19, acetone small, chest x-ray with no acute cardiopulmonary findings, CT of the brain pending upon requested evaluation of patient. In the ED patient ministered normal saline boluses as well as insulin and transition to an insulin drip. [facility] Medical History COPD (chronic obstructive pulmonary disease) Diabetes Emphysema lung HLD (hyperlipidemia) HTN (hypertension) Hypothyroidism Osteopenia Pulmonary embolism, bilateral Smoker Home Medications albuterol sulfate 90 mcg/actuation aerosol inhaler 1 puff INHALATION ONCE PRN 09/08/21 [History Last Taken 10/05/21] amlodipine 5 mg-benazepril 10 mg capsule 1 cap PO DAILY 09/08/21 [History Last Taken 10/06/21] fluticasone 100 mcg-salmeterol 50 mcg/dose blistr powdr for inhalation 1 inh INHALATION BID PRN 09/08/21 [History Last Taken 10/05/21] insulin aspart U-100 100 unit/mL subcutaneous solution 100 unit CONTINUOUS SUBCUTANEOUS INFUSION .continuous ml 09/08/21 [History Last Taken 10/06/21] levothyroxine 112 mcg tablet 112 mcg PO DAILY 09/08/21 [History Last Taken 10/06/21] metoprolol succinate 50 mg tablet,extended release 24 hr 50 mg PO DAILY 09/08/21 [History Last Taken 10/06/21] oxybutynin chloride 5 mg tablet 10 mg PO DAILY tab 09/08/21 [History Last Taken 10/06/21] simvastatin 10 mg tablet 10 mg PO DAILY 09/08/21 [History Last Taken 10/05/21] insulin glargine [Lantus U-100 Insulin] 10 unit SUBCUT QPM 30 Days #3 ml 11/22/21 [Rx Last Taken Unknown] rivaroxaban [Xarelto] 20 mg PO DAILY #30 tab 11/22/21 [Rx Last Taken Unknown] Allergy/AdvReac Type Severity Reaction Status Date / Time ciprofloxacin [From Cipro] Allergy Intermediate hives Verified 12/01/21 10:27 Sulfa (Sulfonamide Allergy Intermediate hives Verified 12/01/21 10:27 Antibiotics) Family History Father Diabetes Respiratory disease Surgical History S/P insertion of insulin pump Social History (Updated 01/27/22 @ 22:[address] Roxanne Saxena MD) household members: none Smoking Status: Current every day smoker tobacco type: cigarettes Smoking packs per day: 0.5 Smoking cigarettes per day: 10.0 alcohol intake: current alcohol intake frequency: a few times a month substance use type: does not use ROS ROS Narrative Difficult ROS secondary to encephalopathy but from discussion with ED with family and patient: Admission Review of Systems: CONSTITUTIONAL: No weight loss, fever, chills, + weakness or fatigue. HEENT: Eyes: No visual loss, blurred vision, double vision or yellow sclerae. Ears, Nose, Throat: No hearing loss, sneezing, congestion, runny nose or sore throat. SKIN: No rash or itching, lesions, wounds. CARDIOVASCULAR: No chest pain, chest pressure or chest discomfort, palpitations, edema, orthopnea, syncopal events. RESPIRATORY: No shortness of breath, cough or sputum, wheezing, hemoptysis. GASTROINTESTINAL: + anorexia, nausea, vomiting, No diarrhea, abdominal pain, melena, BRBPR. GENITOURINARY: No dysuria, frequency, urgency or retention. NEUROLOGICAL: + Confusion/encephalopathy, No headache, dizziness, syncope, paralysis, ataxia, numbness or tingling in the extremities, focal weakness, change in bowel or bladder control, seizure. MUSCULOSKELETAL: + muscle, back pain, joint pain or stiffness. HEMATOLOGIC: No anemia, bleeding or bruising. LYMPHATICS: No enlarged nodes. No history of splenectomy. PSYCHIATRIC: No history of depression or anxiety. ENDOCRINOLOGIC: No reports of sweating, cold or heat intolerance. + polyuria or polydipsia. ALLERGIES: No history of asthma, hives, eczema or rhinitis. Vital Signs Vital Signs Vital Signs: 01/27/22 21:02 01/27/22 21:12 01/27/22 22:15 Temperature 97.6 F L Temperature Source Temporal Pulse Rate 115 H 115 H 128 H Respiratory Rate 24 H 31 H 30 H Blood Pressure 99/80 99/80 123/44 H Blood Pressure Mean 86 86 70 Pulse Ox 100 97 Oxygen Delivery Method Nasal Cannula Nasal Cannula Oxygen Flow Rate (L/min) 2 2 Weight Weight: 141 lb 1.533 oz Body Mass Index (BMI) 23.4 Physical Exam Narrative Physical Examination: General: Awakens to stimuli, not alert, very lethargic and unable to answer appropriate orientation questions but will answer some requests, following some commands, laying in the ED bed, ill-appearing. Skin: Normal color, normal turgor, no icterus, no cyanosis. HEENT: AT/NC, EOM appear intact but difficult given acute lethargy and patient decreased willingness to open eyes, PERRLA, dry MM, no carotid bruits or JVD noted. Lungs: Diminished, > bases, increased RR, no rales, ronchi or wheezing. Heart: Tachycardic with regular rhythm; no gallop, rub audible. Abdomen: Soft, NTTP, ND, hyperactive BS, no HSM. Extremities: No cyanosis, clubbing, or edema. Neurological: Awakens to stimuli, not alert, very lethargic and unable to answer appropriate orientation questions, following some commands, laying in the ED bed, ill-appearing, cognitive function not baseline intact; pupils equally reactive to light and accommodation, cranial nerves difficult to assess given acute lethargy, moving all 4 extremities with stimuli, strength severely globally decreased secondary to acute presentation. Psychiatric: Affect appears lethargic, ill appearing, no acute evidence of depressive or anxiety feelings. Results Lab / Micro Data Result Diagrams: 01/27/22 21:15 01/27/22 21:15 Labs: Laboratory Results - last 24 hr 01/27/22 21:15: WBC 12.8 H, RBC 5.01, Hgb 14.4, Hct 44.9, MCV 89.6, MCH 28.7, MCHC 32.1, RDW Std Deviation 54.0 H, RDW Coeff of Kristyn 16.4 H, Plt Count 334, MPV 11.9, Immature Gran % (Auto) 1.100 H, Neut % (Auto) 89.7 H, Lymph % (Auto) 6.4 L, [place] % (Auto) 1.9, Eos % (Auto) 0.0, Baso % (Auto) 0.9, Absolute Neuts (auto) 11.5 H, Absolute Lymphs (auto) 0.82 L, Nucleated RBC % 0 01/27/22 21:15: Sodium 129 L, Potassium 5.4 H, Chloride 89 L, Carbon Dioxide 17.0 L, Anion Gap 23 H, BUN 40 H, Creatinine 1.97 H, Estim Creat Clear Calc 21.18, Est GFR (MDRD) Af Amer 32 L, Est GFR (MDRD) Non-Af 26 L, BUN/Creatinine Ratio 20.3 H, Glucose 887 H*, Calcium 10.2 H, Phosphorus 7.0 H, Magnesium 2.6, Troponin I High Sens 19 01/27/22 21:15: Acetone Level SMALL H 01/27/22 22:20: POC Glucose > 500 H* ABG Data ABG results: ABG 01/27/22 21:29 Specimen Type TRAMAINE VBG pH 7.28 L VBG pO2 66 H VBG HCO3 15 L VBG Total CO2 16 L VBG O2 Sat (Calc) 90 H VBG Base Excess -12 L POC Mix VBG pCO2 Pt Tmp 31.3 L Radiology Impression Chest X-Ray 01/27/22 21:38 IMPRESSION: No acute cardiopulmonary disease. Electronically Signed: Sree Cuellar MD at 22:03 EDT , Assessment & Plan Assessment/Plan (1) DKA (diabetic ketoacidoses): QUALIFIERS: Diabetes mellitus complication detail: without coma Diabetes mellitus type: type 2 Qualified Code(s): E11.10 - Type 2 diabetes mellitus with ketoacidosis without coma PLAN: The patient is a 76 y/o F w/ PMHx: COPD, HTN, HLD, Hypothyroidism, Hx BL PE on xarelto, Tobacco use, Diabetes mellitus type II with insulin pump in place with prior episodes of DKA who presents to the [facility] ED on 01/27/22 with history of 2 days of progressively worsening nausea, emesis and elevated BS noted at home with glucometer read only noting high with increasing confusion prompting ED evaluation given the similar to prior DKA presentations. #1. Acute Encephalopathy secondary to Acute DKA w/ Diabetes mellitus type II with insulin pump: Patient administered NS and started on an insulin drip in the ED. Will admit to the ICU, request ICU consultation, continue on insulin drip, check serial K+, glucose w/ IVF changes pending these levels, serial chemistry, trend mag, phos w/ repletion as needed, transition to home SC insulin pump regimen when gap closed w/ overlap on drip with adjustments as needed, nutrition consultation, HgbA1c requested. #2. Acute kidney injury: Secondary to acute presentation as noted #1. Admission BUN/Cr 40/1.97, prior baseline creatinine noted to be 0.8-0.9. Will continue to aggressively hydrate, hold nephrotoxic medications and repeat chemistry in AM. If no improvement would plan FeNa and renal ultrasound assessment. #3. Hypertension: Patient with low normal BP upon presentation, judiciously hydrating, will resume amlodipine, metoprolol once appropriate with hold as needed, holding benazepril component given THANIA as noted, as needed IV hydralazine. #4. Chronic COPD/emphysema: We will temporarily hold patient home inhalers, transition to ATC DuoNeb therapy, as needed albuterol, encourage head of bed and I-S. #5. Hypothyroidism: We will continue patient on levothyroxine regimen once oral intake safe. #6. Hyperlipidemia: Continue home statin regimen once oral intake safe. #7. History of bilateral PE: Will continue renally dosed Xarelto regimen if oral intake safe otherwise will need to transition to heparin drip. #8. Tobacco Abuse: Encouraged cessation, inpatient consultation per RT, NR if desired. #9. DVT prophylaxis: SCDs, continue home Xarelto regimen but will decrease temporarily to 15 mg p.o. daily given THANIA as noted, resume home regimen once appropriate renal function; however, if remains encephalopathic with unsafe oral intake will transition temporarily to heparin drip if necessary once redose xarelto due. Charges/Coding Visit Charges Inpatient E&M: 75416 Init Hosp L3
[2022-01-27 22:48] VITALS: BP 118/35; PULSE 126; RESP 27; TEMP 36.7; O2SAT 98
[2022-01-27 23:53] LABS: Anion Gap 21 (5-15); BUN 41 mg/dL (7-18); BUN/Creat Ratio 21.2 RATIO (10-20); Calcium,Total 9.2 mg/dL (8.5-10.1); Chloride 94 mmol/L (98-107); Creatinine, Serum 1.93 mg/dL (0.55-1.02); EST Glomerular Filtration Rate 27 mL/min (>60); Est Glom Filt Rate - Afr Amer 32 mL/min (>60); Estimated Creatinine Clearance 21.62 ml/min; Glucose 842 mg/dL (74-106); Potassium 6.4 mmol/L (3.5-5.1); Sodium Level 128 mmol/L (136-145)
[2022-01-28] VITALS (34 sets, daily range): BP systolic 108–147; BP diastolic 42–64; PULSE 74–131; RESP 12–27; TEMP 36.7–37.5; O2SAT 89–98; BMI 23.8
[2022-01-28] MEDS: 0.9% Normal Saline 1,000 ML 999 ML IV (00:29)
[2022-01-28 00:49] LABS: Anion Gap 24 (5-15); BUN 39 mg/dL (7-18); BUN/Creat Ratio 18.9 RATIO (10-20); Chloride 98 mmol/L (98-107); Creatinine, Serum 2.06 mg/dL (0.55-1.02); EST Glomerular Filtration Rate 25 mL/min (>60); Est Glom Filt Rate - Afr Amer 30 mL/min (>60); Estimated Creatinine Clearance 19.44 ml/min; Glucose 745 mg/dL (74-106); Potassium 4.4 mmol/L (3.5-5.1); Sodium Level 135 mmol/L (136-145)
[2022-01-28] MEDS: 0.9% Normal Saline 1,000 ML 150 ML IV ×2 (01:48→08:00)
[2022-01-28 02:02] LABS: Glucose 615 mg/dL (74-106)
[2022-01-28 02:31] LABS: Bedside Glucose > 500 mg/dL (74-106)
[2022-01-28 02:31] LABS: Bedside Glucose > 500 mg/dL (74-106)
[2022-01-28 02:31] LABS: Bedside Glucose > 500 mg/dL (74-106)
[2022-01-28 03:02] LABS: Glucose 420 mg/dL (74-106)
--- NOTE | 2022-01-28 03:19 | NURSING ---
0300: Subcutaneous insulin pump needle removed. No signs of bleeding or trauma noted at this time. TM.
[2022-01-28 04:29] LABS: Hematocrit 37.1 % (37-47); Hemoglobin 12.3 g/dL (12.0-15.0); Mean Corp Hgb Conc 33.2 g/dL (32-36); Mean Corpuscular Hgb 28.9 pg (27.0-32.0); Mean Corpuscular Volume 87.3 fL (81-99); Mean Platelet Vol. 11.6 fl (6.2-12.0); POSITIVE DIFFERENTIAL YES; POSITIVE MORPHOLOGY YES; Platelet Count 300 K/mm3 (150-450); RBC Distribution Width CV 16.1 % (11.6-14.6); RBC Distribution Width SD 51.3 fl (35.1-43.9); Red Blood Count 4.25 M/mm3 (4.2-5.4); White Blood Count 19.7 K/mm3 (4.4-11.0)
[2022-01-28 04:55] LABS: Phosphorus 3.6 mg/dL (2.5-4.9)
[2022-01-28 05:00] LABS: ALB/GLOB Ratio 0.9 RATIO (0.9-2.4); AST(SGOT) 9 U/L (15-37); Alanine Aminotransfer ALT/SGPT 18 U/L (13-56); Albumin, Serum 2.8 g/dL (3.2-5.0); Alkaline Phosphatase 104 U/L (45-117); Anion Gap 10 (5-15); BUN 38 mg/dL (7-18); BUN/Creat Ratio 23.5 RATIO (10-20); Chloride 107 mmol/L (98-107); Creatinine, Serum 1.62 mg/dL (0.55-1.02); EST Glomerular Filtration Rate 33 mL/min (>60); Est Glom Filt Rate - Afr Amer 40 mL/min (>60); Estimated Creatinine Clearance 24.71 ml/min; Glucose 476 mg/dL (74-106); Magnesium 2.2 mg/dL (1.6-2.6); Potassium 4.3 mmol/L (3.5-5.1); Protein, Total 5.8 g/dL (6.4-8.2); Sodium Level 139 mmol/L (136-145)
[2022-01-28 05:17] LABS: Differential Indicated MANUAL DIFF
[2022-01-28 05:22] LABS: Absolute Neutrophil Count 18.1 X10^3/uL (2.0-7.7)
[2022-01-28 05:23] LABS: Absolute Lymphocyte Count 1.18 X10^3/uL (0.83-4.51); Anisocytosis 1+; Lymphocyte 6 % (19-41); Monocyte 2 % (0-10); Neutrophil-Band 2 % (0-5); Neutrophil-Segmented 90 % (47-70); Platelet Estimate ADEQUATE (ADEQ); Total Cells Counted 100 (MANUAL DIFF)
--- NOTE | 2022-01-28 05:52 | CON.PCM.CC_ITS ---
Assessment & Plan Assessment/Plan (1) DKA (diabetic ketoacidoses): QUALIFIERS: Diabetes mellitus complication detail: without coma Diabetes mellitus type: type 2 Qualified Code(s): E11.10 - Type 2 diabetes mellitus with ketoacidosis without coma PLAN: RECOMMENDATIONS: 1. Continue supplemental IV fluids and insulin infusion per protocol. 2. Once anion gap is closed x2, the patient will be transitioned to basal and sliding scale coverage. 3. The patient is to remain n.p.o. for now pending improvement in mentation. 4. Continue bronchodilators. 5. Continue to monitor BMP and replete electrolytes as needed. 6. Check TSH IMPRESSIONS: 1. Diabetic ketoacidosis Likely secondary to noncompliance with outpatient prescribed insulin regimen. Hemoglobin A1c was noted to be nearly 12. The patient will be continued on f luids and insulin per protocol. Continue to monitor serial BMP and replete electrolytes as needed. Once anion gap has been closed x2, the patient can be transitioned to basal and sliding scale coverage. 2. Encephalopathy Likely metabolic in etiology and related to #1. CT head was unremarkable. Anticipate further improvement in mentation with correction of underlying metabolic derangements. Given her history of hypothyroidism, will also check TSH. 3. Acute kidney injury Prerenal in etiology. Continue volume expansion continue to monitor urine output. No current indication for renal replacement therapy. 4. History of pulmonary emboli Continue systemic anticoagulation with Xarelto. If the patient is unable to tolerate p.o. intake, consider initiation of Lovenox or heparin infusion. 5. History of COPD/chronic tobacco dependency/hypothyroidism/hypertension/hyperlipidemia Complicates care, management, recovery and prognosis. Continue home medications as indicated. Smoking cessation is advisable. This note was generated with [employer] dictation software. It may contain incorrect words, spelling, and punctuation that were not noted in checking the note before signing. HPI Consult Data Date of Consult: 01/29/22 HPI Narrative Reason for Consultation: Diabetic ketoacidosis HPI Narrative: The patient is a 76-year-old female, with a history as outlined below, who presented to the emergency department on January 27 with hyperglycemia, nausea and vomiting. The patient was last admitted to the hospital in October 2021 with diabetic ketoacidosis and metabolic encephalopathy. The patient has a history of COPD, chronic hypoxemic respiratory failure, venous thromboembolic disease and hypertension. Only limited history could be obtained from the patient as she is still quite lethargic and only oriented to person. Per nursing staff, upon removal of her insulin pump, the needle was noted to be kristyn t, making it unlikely that she was actually receiving her insulin as prescribed. On presentation to the emergency department, the patient was noted to be afebrile and hemodynamically stable. Initial laboratory evaluation demonstrated an elevated white blood cell count of 13,000. Chemistry profile was notable for a sodium of 129, potassium of 5.4, chloride of 89, bicarbonate of 17, anion gap of 23 and creatinine of 1.97. Small serum acetone level was noted. CT head revealed no acute process. Chest imaging demonstrated no acute cardiopulmonary process. The patient received supplemental IV fluid hydration and was started on a continuous insulin infusion. She was subsequently admitted to the medical intensive care unit for further management. [facility] Medical History COPD (chronic obstructive pulmonary disease) Diabetes Emphysema lung HLD (hyperlipidemia) HTN (hypertension) Hypothyroidism Osteopenia Pulmonary embolism, bilateral Smoker Home Medications albuterol sulfate 90 mcg/actuation aerosol inhaler 1 puff INHALATION ONCE PRN 09/08/21 [History Last Taken 10/05/21] amlodipine 5 mg-benazepril 10 mg capsule 1 cap PO DAILY 09/08/21 [History Last Taken 10/06/21] fluticasone 100 mcg-salmeterol 50 mcg/dose blistr powdr for inhalation 1 inh INHALATION BID PRN 09/08/21 [History Last Taken 10/05/21] insulin aspart U-100 100 unit/mL subcutaneous solution 100 unit CONTINUOUS SUBCUTANEOUS INFUSION .continuous ml 09/08/21 [History Last Taken 10/06/21] levothyroxine 112 mcg tablet 112 mcg PO DAILY 09/08/21 [History Last Taken 10/06/21] metoprolol succinate 50 mg tablet,extended release 24 hr 50 mg PO DAILY 09/08/21 [History Last Taken 10/06/21] oxybutynin chloride 5 mg tablet 10 mg PO DAILY tab 09/08/21 [History Last Taken 10/06/21] simvastatin 10 mg tablet 10 mg PO DAILY 09/08/21 [History Last Taken 10/05/21] insulin glargine [Lantus U-100 Insulin] 10 unit SUBCUT QPM 30 Days #3 ml 11/22/21 [Rx Last Taken Unknown] rivaroxaban [Xarelto] 20 mg PO DAILY #30 tab 11/22/21 [Rx Last Taken Unknown] Allergy/AdvReac Type Severity Reaction Status Date / Time ciprofloxacin [From Cipro] Allergy Intermediate hives Verified 12/01/21 10:27 Sulfa (Sulfonamide Allergy Intermediate hives Verified 12/01/21 10:27 Antibiotics) Family History Father Diabetes Respiratory disease Surgical History S/P insertion of insulin pump Social History (Updated 01/27/22 @ 22:[address] Roxanne Saxena MD) household members: none Smoking Status: Current every day smoker tobacco type: cigarettes Smoking packs per day: 0.5 Smoking cigarettes per day: 10.0 alcohol intake: current alcohol intake frequency: a few times a month substance use type: does not use ROS Review of Systems ROS Unobtainable: due to encephalopathy and due to mental status Physical Exam Const no apparent distress Constitutional Narrative: Oriented to person only. General Appearance: lethargic HEENT normocephalic and head/scalp atraumatic HEENT Narrative: Dry mucous membranes Eyes PERRL and EOMs intact bilaterally Neck supple General: trachea midline Chest inspection of chest normal Resp Auscultation: diminished lung sounds; Negative for rales, rhonchi or wheezes Cardio S1 normal heart sound and S2 normal heart sound Rate: tachycardic GI normal to inspection, nondistended, normoactive bowel sounds Extremity no clubbing, cyanosis or edema Skin no rashes or lesions noted Neuro Neuro Narrative: The patient is quite lethargic and unable to answer questions appropriately. Lab / Micro Data Result Diagrams: 01/29/22 03:00 01/29/22 03:00 Labs: Laboratory Results - last 24 hr 01/27/22 21:15: WBC 12.8 H, RBC 5.01, Hgb 14.4, Hct 44.9, MCV 89.6, MCH 28.7, MCHC 32.1, RDW Std Deviation 54.0 H, RDW Coeff of Kristyn 16.4 H, Plt Count 334, MPV 11.9, Immature Gran % (Auto) 1.100 H, Neut % (Auto) 89.7 H, Lymph % (Auto) 6.4 L , [place] % (Auto) 1.9, Eos % (Auto) 0.0, Baso % (Auto) 0.9, Absolute Neuts (auto) 11.5 H, Absolute Lymphs (auto) 0.82 L, Nucleated RBC % 0 01/27/22 21:15: Sodium 129 L, Potassium 5.4 H, Chloride 89 L, Carbon Dioxide 17.0 L, Anion Gap 23 H, BUN 40 H, Creatinine 1.97 H, Estim Creat Clear Calc 21.18, Est GFR (MDRD) Af Amer 32 L, Est GFR (MDRD) Non-Af 26 L, BUN/Creatinine Ratio 20.3 H, Glucose 887 H*, Calcium 10.2 H, Phosphorus 7.0 H, Magnesium 2.6, Troponin I High Sens 19 01/27/22 21:15: Acetone Level SMALL H 01/27/22 22:20: POC Glucose > 500 H* 01/27/22 23:14: Sodium 128 L, Potassium 6.4 H*, Chloride 94 L, Carbon Dioxide 13.0 L, Anion Gap 21 H, BUN 41 H, Creatinine 1.93 H, Estim Creat Clear Calc 21.62, Est GFR (MDRD) Af Amer 32 L, Est GFR (MDRD) Non-Af 27 L, BUN/Creatinine Ratio 21.2 H, Glucose 842 H*, Calcium 9.2 01/28/22 00:17: POC Glucose > 500 H* 01/28/22 00:25: Sodium 135 L, Potassium 4.4, Chloride 98, Carbon Dioxide 13.0 L, Anion Gap 24 H, BUN 39 H, Creatinine 2.06 H, Estim Creat Clear Calc 19.44, Est GFR (MDRD) Af Amer 30 L, Est GFR (MDRD) Non-Af 25 L, BUN/Creatinine Ratio 18.9, Glucose 745 H*, Calcium 9.0 01/28/22 01:18: POC Glucose > 500 H* 01/28/22 01:30: Glucose 615 H* 01/28/22 02:26: POC Glucose > 500 H* 01/28/22 02:35: Glucose 420 H 01/28/22 04:19: Sodium 139, Potassium 4.3, Chloride 107, Carbon Dioxide 22.0, Anion Gap 10, BUN 38 H, Creatinine 1.62 H, Estim Creat Clear Calc 24.71, Est GFR (MDRD) Af Amer 40 L, Est GFR (MDRD) Non-Af 33 L, BUN/Creatinine Ratio 23.5 H, Glucose 476 H*, Calcium 8.0 L, Magnesium 2.2, Total Bilirubin 0.40, AST 9 L, ALT 18, Alkaline Phosphatase 104, Total Protein 5.8 L, Albumin 2.8 L, Globulin 3.0, Albumin/Globulin Ratio 0.9 01/28/22 04:19: WBC 19.7 H, RBC 4.25, Hgb 12.3, Hct 37.1, MCV 87.3, MCH 28.9, MCHC 33.2, RDW Std Deviation 51.3 H, RDW Coeff of Kristyn 16.1 H, Plt Count 300, MPV 11.6, Neut % (Auto) Not Reportable, Absolute Neuts (auto) 18.1 H, Absolute Lymphs (auto) 1.18, Total Counted 100, Neutrophils % (Manual) 90 H, Band Neutrophils % 2, Lymphocytes % (Manual) 6 L, Monocytes % (Manual) 2, Diff Path Review February, Platelet Estimate ADEQUATE, Anisocytosis 1+ 01/28/22 04:19: Phosphorus 3.6 ABG Data ABG results: ABG 01/27/22 21:29 Specimen Type TRAMAINE VBG pH 7.28 L VBG pO2 66 H VBG HCO3 15 L VBG Total CO2 16 L VBG O2 Sat (Calc) 90 H VBG Base Excess -12 L POC Mix VBG pCO2 Pt Tmp 31.3 L Rhythm Strip Rhythm Strip: Sinus Tach Rate: 118 Ectopy: None Radiology Impression Chest X-Ray 01/27/22 21:38 IMPRESSION: No acute cardiopulmonary disease. Electronically Signed: Sree Cuellar MD at 22:03 EDT , Brain CT 01/27/22 21:58 Charges/Coding Visit Charges Inpatient E&M: 55387 Init Hosp L3
[2022-01-28] MEDS: Ipratropium/Albuterol Sulfate 3 ML AMPUL.NEB INHALATION ×3 (06:54→19:32)
--- NOTE | 2022-01-28 07:10 | PCM.PN.HOSP ---
Subjective Subjective Mr. [id number] female came to ER with nausea vomiting, confusion and hyperglycemia. Patient is on insulin pump. In ED, anion gap 23, bicarb 17 sodium 129, creatinine 1.97 and glucose 87. Potassium 5.4. Objective Data Objective Data Vital Signs: Vital Signs Temp Pulse Resp BP Pulse Ox 98.1 F 92 19 H 108/55 L 92 01/28/22 00:05 01/28/22 06:57 01/28/22 06:57 01/28/22 03:00 01/28/22 06:57 Oxygen Flow Rate (L/min) 2 Oxygen Delivery Method Nasal Cannula Weight: 144 lb 13.499 oz Body Mass Index (BMI) 23.8 Intake & Output: Intake and Output for Last 24 Hours 01/26/22 01/27/22 01/28/22 23:59 23:59 23:59 Intake Total 1000 / 1000 2130.67 / 2130.67 Balance 1000 / 1000 2130.67 / 2130.67 Lab / Micro Data Result Diagrams: 01/28/22 04:19 01/28/22 08:05 Labs: Laboratory Results - last 24 hr 01/27/22 21:15: WBC 12.8 H, RBC 5.01, Hgb 14.4, Hct 44.9, MCV 89.6, MCH 28.7, MCHC 32.1, RDW Std Deviation 54.0 H, RDW Coeff of Kristyn 16.4 H, Plt Count 334, MPV 11.9, Immature Gran % (Auto) 1.100 H, Neut % (Auto) 89.7 H, Lymph % (Auto) 6.4 L, [place] % (Auto) 1.9, Eos % (Auto) 0.0, Baso % (Auto) 0.9, Absolute Neuts (auto) 11.5 H, Absolute Lymphs (auto) 0.82 L, Nucleated RBC % 0 01/27/22 21:15: Sodium 129 L, Potassium 5.4 H, Chloride 89 L, Carbon Dioxide 17.0 L, Anion Gap 23 H, BUN 40 H, Creatinine 1.97 H, Estim Creat Clear Calc 21.18, Est GFR (MDRD) Af Amer 32 L, Est GFR (MDRD) Non-Af 26 L, BUN/Creatinine Ratio 20.3 H, Glucose 887 H*, Calcium 10.2 H, Phosphorus 7.0 H, Magnesium 2.6, Troponin I High Sens 19 01/27/22 21:15: Acetone Level SMALL H 01/27/22 22:20: POC Glucose > 500 H* 01/27/22 23:14: Sodium 128 L, Potassium 6.4 H*, Chloride 94 L, Carbon Dioxide 13.0 L, Anion Gap 21 H, BUN 41 H, Creatinine 1.93 H, Estim Creat Clear Calc 21.62, Est GFR (MDRD) Af Amer 32 L, Est GFR (MDRD) Non-Af 27 L, BUN/Creatinine Ratio 21.2 H, Glucose 842 H*, Calcium 9.2 01/28/22 00:17: POC Glucose > 500 H* 01/28/22 00:25: Sodium 135 L, Potassium 4.4, Chloride 98, Carbon Dioxide 13.0 L, Anion Gap 24 H, BUN 39 H, Creatinine 2.06 H, Estim Creat Clear Calc 19.44, Est GFR (MDRD) Af Amer 30 L, Est GFR (MDRD) Non-Af 25 L, BUN/Creatinine Ratio 18.9, Glucose 745 H*, Calcium 9.0 01/28/22 01:18: POC Glucose > 500 H* 01/28/22 01:30: Glucose 615 H* 01/28/22 02:26: POC Glucose > 500 H* 01/28/22 02:35: Glucose 420 H 01/28/22 04:19: Sodium 139, Potassium 4.3, Chloride 107, Carbon Dioxide 22.0, Anion Gap 10, BUN 38 H, Creatinine 1.62 H, Estim Creat Clear Calc 24.71, Est GFR (MDRD) Af Amer 40 L, Est GFR (MDRD) Non-Af 33 L, BUN/Creatinine Ratio 23.5 H, Glucose 476 H*, Calcium 8.0 L, Magnesium 2.2, Total Bilirubin 0.40, AST 9 L, ALT 18, Alkaline Phosphatase 104, Total Protein 5.8 L, Albumin 2.8 L, Globulin 3.0, Albumin/Globulin Ratio 0.9 01/28/22 04:19: WBC 19.7 H, RBC 4.25, Hgb 12.3, Hct 37.1, MCV 87.3, MCH 28.9, MCHC 33.2, RDW Std Deviation 51.3 H, RDW Coeff of Kristyn 16.1 H, Plt Count 300, MPV 11.6, Neut % (Auto) Not Reportable, Absolute Neuts (auto) 18.1 H, Absolute Lymphs (auto) 1.18, Total Counted 100, Neutrophils % (Manual) 90 H, Band Neutrophils % 2, Lymphocytes % (Manual) 6 L, Monocytes % (Manual) 2, Diff Path Review February, Platelet Estimate ADEQUATE, Anisocytosis 1+ 01/28/22 04:19: Phosphorus 3.6 ABG Data ABG results: ABG 01/27/22 21:29 Specimen Type TRAMAINE VBG pH 7.28 L VBG pO2 66 H VBG HCO3 15 L VBG Total CO2 16 L VBG O2 Sat (Calc) 90 H VBG Base Excess -12 L POC Mix VBG pCO2 Pt Tmp 31.3 L Radiography Diagnostic Testing: Radiology Impression Chest X-Ray 01/27/22 21:38 IMPRESSION: No acute cardiopulmonary disease. Electronically Signed: Sree Cuellar MD at 22:03 EDT , Brain CT 01/27/22 21:58 Rhythm Strip Rhythm Strip: Sinus Tach Rate: 118 Ectopy: None Physical Exam Narrative General: Confused, disoriented, minimally responsive HEENT: No spontaneous eye opening. Atraumatic, PERRLA, EOMI, Normocephalic Oral: No Gingival or Mucosal Lesions/ Ulcerations Neck: Supple, No JVD, Negative Carotid Bruits Lungs: Air entry diminished in bilateral lung bases. No crepitation/rhonchi Cardiovascular: Regular rate, Regular Rhythm, Normal S1, Normal S2, No murmurs Abdomen: Mild epigastric tenderness. Bowel Sounds Present, Soft, Non-Distended : No renal angle tenderness. No suprapubic tenderness. Extremities: No edema, Capillary Refill Less than 3 Seconds Skin: No rashes, No breakdown Musculoskeletal: No Tenderness to Palpation of Joints or Extremities Neurological: Eyes closed. Opens to verbal response. GCS 10. No focal deficit. Psych/Mental Status: Minimally responsive Assessment & Plan Assessment/Plan (1) DKA (diabetic ketoacidoses): QUALIFIERS: Diabetes mellitus complication detail: without coma Diabetes mellitus type: type 2 Qualified Code(s): E11.10 - Type 2 diabetes mellitus with ketoacidosis without coma PLAN: The patient is a 76 y/o F with history of diabetes mellitus type 2 on insulin pump admitted with 2 days of worsening nausea, vomiting, hyperglycemia, confusion admitted in ICU with clinical and biochemical evidence of DKA #1. Acute Encephalopathy secondary to DKA/metabolic encephalopathy: Patient has history of type 2 diabetes mellitus on insulin pump. Anion gap closed x2. Patient is still encephalopathic. Continue IV fluid and insulin drip until she is fully awake and can have oral diet. N.p.o. while confused/disoriented. Certified Legal Secretary Specialist consult. Glucose 241. #2. Acute kidney injury prerenal secondary to DKA.Admission BUN/Cr 40/1.97, prior baseline creatinine noted to be 0.8-0.9. Her creatinine went up to 2.06. Most recent 1.44. continue to aggressively hydrate, hold nephrotoxic medications and repeat chemistry in AM. If no improvement would plan FeNa and renal ultrasound assessment. IV fluid changed to half-normal saline. Serum sodium 141, chloride 110. Phosphorus 3.6, magnesium 2.2. #3. Hypertension pressure normal. #4. COPD/emphysema: DuoNeb as needed. Incentive spirometry and bronchopulmonary hygiene. #5. Hypothyroidism: continue patient on levothyroxine regimen once oral intake safe. #6. Hyperlipidemia: Continue home statin regimen once oral intake safe. #7. History of bilateral PE: Will continue renally dosed Xarelto regimen if oral intake safe otherwise will need to transition to heparin drip. #8. Tobacco Abuse: Encouraged cessation, inpatient consultation per RT, NR if desired. #9. DVT prophylaxis: SCDs, continue home Xarelto regimen 15 mg p.o. daily given THANIA as noted, resume home regimen once appropriate renal function Charges/Coding Visit Charges Inpatient E&M: 70743 [facility] Hosp L3
[2022-01-28 07:11] LABS: Bedside Glucose 371 mg/dL (74-106)
[2022-01-28 07:11] LABS: Bedside Glucose 403 mg/dL (74-106)
[2022-01-28 07:11] LABS: Bedside Glucose 361 mg/dL (74-106)
[2022-01-28 07:11] LABS: Bedside Glucose 406 mg/dL (74-106)
[2022-01-28 07:26] LABS: Bedside Glucose > 500 mg/dL (74-106)
[2022-01-28 07:52] LABS: Hemoglobin A1c 11.7 % (3.8-5.6)
[2022-01-28 08:10] LABS: Bedside Glucose 336 mg/dL (74-106)
[2022-01-28 08:28] LABS: Anion Gap 6 (5-15); BUN 33 mg/dL (7-18); BUN/Creat Ratio 22.9 RATIO (10-20); Calcium,Total 8.2 mg/dL (8.5-10.1); Chloride 110 mmol/L (98-107); Creatinine, Serum 1.44 mg/dL (0.55-1.02); EST Glomerular Filtration Rate 37 mL/min (>60); Est Glom Filt Rate - Afr Amer 45 mL/min (>60); Glucose 350 mg/dL (74-106); Potassium 3.7 mmol/L (3.5-5.1); Sodium Level 141 mmol/L (136-145)
[2022-01-28 09:31] LABS: Bedside Glucose 315 mg/dL (74-106)
[2022-01-28 10:10] LABS: Bedside Glucose 302 mg/dL (74-106)
[2022-01-28] MEDS: Metoprolol(XL)Succ 50 MG Tablet PO (11:07)
[2022-01-28] MEDS: Tolterodine Tartrate 2 MG CAP.SA PO (11:07)
[2022-01-28] MEDS: Rivaroxaban 15 MG Tablet PO (11:07)
[2022-01-28 11:25] LABS: Bedside Glucose 241 mg/dL (74-106)
[2022-01-28 11:31] LABS: Pathologist Review Reviewed
[2022-01-28] MEDS: Dext 5%-0.45% NS 1,000 ML 150 ML IV (11:38)
--- NOTE | 2022-01-28 12:15 | CASEMGMT ---
KRISTINE ALEMAN Face to Face with patient for initial transition planning/care coordination assessment. RN CM introduced self and role at [facility]. Patient lying in bed, sleeping, significant other, Don, at bedside. Don willing to participate in assessment and is able to answer all questions appropriately. Care providers, pharmacy, and demographics verified. Don wishes for patient to discharge home, will monitor for HHC. Dillon states that patient has been becoming more forgetful lately. RN CM encouraged Don to speak with patient's son SANDY Mendez, about concerns with patient living alone and safety. Dillon agreed that patient should not be left alone. RN LOVE mentioned looking into assisted living, Dillon states he will discuss with son. SW updated regarding increased forgetfulness and safety concerns. Don states he has no further needs or concerns at this time. CM to follow for discharge planning needs that may arise. PCP: Zeyad Specialists: Joseph, spinal surgeon; , botany professor, patient has yet to become established as she has missed last appt. Preferred Pharmacy: [facility] [employer] [facility] [employer] [facility] Insurance: [facility], [facility] Prescription Benefit: yes Living Will/HPOA: yes, Son Andrea Zamudio LNOK: son, significant other Living Arrangements: Patient lives alone in a single story home with 3 steps and railing to enter the home. Per Dillon, patient was independent at home. Transportation: self, Don. Don concerned with patient's ability to drive. DME/HHC: Patient has grab bars, insulin pump, glucometer, pulse ox, and home oxygen at 2 lpm through [employer] with portability. Patient has had [facility] HHC in the past. Will monitor for possible HHC and or CCN at discharge. Patient still smokes per Don. Disposition Plan: Patient to discharge home with support from significant other and follow-up plans in place. Will monitor for HHC or CCN at discharge. Jeanine FELIZ, RN, CM
[2022-01-28 12:30] LABS: Bedside Glucose 268 mg/dL (74-106)
[2022-01-28 13:08] LABS: Anion Gap 5 (5-15); BUN 30 mg/dL (7-18); BUN/Creat Ratio 23.3 RATIO (10-20); Calcium,Total 7.7 mg/dL (8.5-10.1); Chloride 112 mmol/L (98-107); Creatinine, Serum 1.29 mg/dL (0.55-1.02); EST Glomerular Filtration Rate 42 mL/min (>60); Est Glom Filt Rate - Afr Amer 51 mL/min (>60); Estimated Creatinine Clearance 31.04 ml/min; Glucose 258 mg/dL (74-106); Potassium 3.6 mmol/L (3.5-5.1); Sodium Level 142 mmol/L (136-145)
[2022-01-28 13:20] LABS: Bedside Glucose 259 mg/dL (74-106)
[2022-01-28] MEDS: Insulin Glargine-YFGN 100 UNIT/ML Pen 10 UNIT SC (14:00)
[2022-01-28] MEDS: 0.45% Normal Saline 1,000 ML 125 ML IV ×2 (14:01→21:36)
[2022-01-28 14:11] LABS: Bedside Glucose 257 mg/dL (74-106)
[2022-01-28 14:16] LABS: T4 Free Direct 0.87 ng/dL (0.76-1.46)
[2022-01-28] MEDS: Insulin Lispro 100 UNIT/ML INSULN.PEN SC ×2 (16:58→23:40)
[2022-01-28 17:01] LABS: Bedside Glucose 225 mg/dL (74-106)
[2022-01-28] MEDS: Atorvastatin Calcium 10 MG Tablet 5 MG PO (21:33)
[2022-01-28 22:55] LABS: Mucous, Urine 0 SEEN /hpf (<or=2+); Red Blood Cells-Urine 0 SEEN /hpf (0-5)
[2022-01-28 22:57] LABS: Color, Urine Yellow (Yellow); Glucose, Dipstick 1000 mg/dl (Normal); Ketone-Dipstick 50 mg/dl (Negative); Leukocyte Esterase-Dipstick 25 /ul (Negative); Nitrite-Dipstick Negative (Negative); Occult Blood-Urine 10 /ul (Negative); Protein-Dipstick 15 mg/dl (Negative); Specific Gravity, Urine 1.025 (1.002-1.030); Urine Bilirubin Dipstick Negative (Negative); Urine Clarity Clear (Clear); Urine Urobilinogen Normal (Normal)
[2022-01-28 23:02] LABS: Bacteria 1+ /hpf (None Seen); Squamous Epithelial Cells - UA 0-5 SEEN /hpf (5-10); White Blood Cells 0-5 SEEN /hpf (0-5)
[2022-01-29] VITALS (20 sets, daily range): BP systolic 116–147; BP diastolic 51–109; PULSE 71–95; RESP 14–18; TEMP 36.2–37.3; O2SAT 88–100
[2022-01-29 00:21] LABS: Bedside Glucose 178 mg/dL (74-106)
[2022-01-29 03:21] LABS: Absolute Lymphocyte Count 1.96 X10^3/uL (0.83-4.51); Absolute Neutrophil Count 13.9 X10^3/uL (2.0-7.7); Basophil# 0.07 X10^3/uL; Basophil% 0.4 % (0-1); Eosinophil# 0.04 X10^3/uL; Eosinophils% 0.2 % (0-5); Hemoglobin 11.3 g/dL (12.0-15.0); Lymphocyte # 1.96 X10^3/ul (0.83-4.51); Lymphocyte % 11.6 % (19-41); Mean Corp Hgb Conc 33.2 g/dL (32-36); Mean Corpuscular Hgb 28.4 pg (27.0-32.0); Mean Corpuscular Volume 85.4 fL (81-99); Mean Platelet Vol. 11.5 fl (6.2-12.0); Monocyte# 0.87 X10^3/uL; Monocyte% 5.1 % (0-10); NRBC Flagged by Analyzer 0 % (0-5); Neutrophil # 13.94 X10^3/uL (2.7-7.7); Neutrophil % 82.3 % (47-70); Platelet Count 267 K/mm3 (150-450); RBC Distribution Width CV 16.5 % (11.6-14.6); RBC Distribution Width SD 51.6 fl (35.1-43.9); Red Blood Count 3.98 M/mm3 (4.2-5.4); White Blood Count 16.9 K/mm3 (4.4-11.0)
[2022-01-29 03:35] LABS: ALB/GLOB Ratio 0.9 RATIO (0.9-2.4); AST(SGOT) 11 U/L (15-37); Alanine Aminotransfer ALT/SGPT 17 U/L (13-56); Albumin, Serum 2.4 g/dL (3.2-5.0); Alkaline Phosphatase 88 U/L (45-117); Anion Gap 6 (5-15); BUN 26 mg/dL (7-18); BUN/Creat Ratio 26.6 RATIO (10-20); Calcium,Total 7.7 mg/dL (8.5-10.1); Chloride 110 mmol/L (98-107); Creatinine, Serum 0.98 mg/dL (0.55-1.02); EST Glomerular Filtration Rate 58 mL/min (>60); Est Glom Filt Rate - Afr Amer 71 mL/min (>60); Estimated Creatinine Clearance 40.85 ml/min; Globulin 2.7 g/dL (2.2-4.2); Glucose 148 mg/dL (74-106); Potassium 3.4 mmol/L (3.5-5.1); Protein, Total 5.1 g/dL (6.4-8.2); Sodium Level 140 mmol/L (136-145)
[2022-01-29 03:43] LABS: T4 Free Direct 0.76 ng/dL (0.76-1.46)
[2022-01-29] MEDS: Insulin Lispro 100 UNIT/ML INSULN.PEN SC ×4 (05:15→21:22)
[2022-01-29] MEDS: Levothyroxine 112 MCG Tablet PO (05:17)
[2022-01-29 05:31] LABS: Bedside Glucose 162 mg/dL (74-106)
--- NOTE | 2022-01-29 06:26 | PCM.PN.INT ---
Assessment & Plan Assessment/Plan (1) DKA (diabetic ketoacidoses): QUALIFIERS: Diabetes mellitus complication detail: without coma Diabetes mellitus type: type 2 Qualified Code(s): E11.10 - Type 2 diabetes mellitus with ketoacidosis without coma PLAN: RECOMMENDATIONS: 1. Dietary advancement as tolerated. 2. Continue basal and sliding scale insulin coverage. 3. Potassium repletion as ordered. 4. Continuous IV fluids can be discontinued. 5. Continue bronchodilators. 6. Encourage incentive spirometer use and mobilize patient as tolerated. IMPRESSIONS: 1. Diabetic ketoacidosis Resolved. Likely secondary to noncompliance with outpatient prescribed insulin regimen. Hemoglobin A1c was noted to be nearly 12. The patient was initially managed with continuous IV fluids and an insulin infusion until anion gap was closed. She has since been transitioned to basal and sliding scale insulin coverage, which will be continued. 2. Encephalopathy Improved. Likely metabolic in etiology and related to #1. CT head was unremarkable. 3. Acute kidney injury Resolved. Prerenal in etiology. No current indication for renal replacement therapy. Continuous IV fluids can be discontinued from my perspective. 4. History of pulmonary emboli Continue systemic anticoagulation with Xarelto. 5. History of COPD/chronic tobacco dependency/hypothyroidism/hypertension/hyperlipidemia Complicates care, management, recovery and prognosis. Continue home medications as indicated. This note was generated with [employer] dictation software. It may contain incorrect words, spelling, and punctuation that were not noted in checking the note before signing. Subjective Subjective The patient was seen and examined at the bedside this morning. Events from the last 24 hours have been reviewed. The patient is currently afebrile, hemodynamically stable and maintaining appropriate oxygen saturations on 2 L/min via nasal cannula. The patient is documented to be overall net +4.5 L for the hospitalization. The patient's continuous insulin infusion was discontinued yesterday and she was transitioned to basal and sliding scale coverage. Potassium is low this morning at 3.4. Creatinine is within normal limits. Blood glucose was noted to be 148. Although TSH is elevated, free T4 level is within normal limits. Objective Data Objective Data The patient's most recent lab work, culture data and imaging studies have all been personally reviewed. Vital Signs: Vital Signs Temp Pulse Resp BP Pulse Ox 99 F 75 15 128/57 H 97 01/29/22 03:00 01/29/22 06:00 01/29/22 06:00 01/29/22 06:00 01/29/22 06:00 Oxygen Flow Rate (L/min) 2 Oxygen Delivery Method Nasal Cannula Weight: 67 kg Body Mass Index (BMI) 23.8 Intake & Output: Intake and Output for Last 24 Hours 01/27/22 01/28/22 01/29/22 23:59 23:59 23:59 Intake Total 1000 / 1000 5377.99 / 5427.99 150 / 150 Output Total 1650 / 1800 350 / 350 Balance 1000 / 1000 3727.99 / 3627.99 -200 / -200 Lab / Micro Data Attestation: I reviewed the patient's lab results. Result Diagrams: 01/29/22 03:00 01/29/22 03:00 Labs: Laboratory Results - last 24 hr 01/27/22 21:02: POC Glucose > 500 H* 01/28/22 04:11: POC Glucose 406 H 01/28/22 04:19: Diff Path Review Reviewed 01/28/22 04:19: Hemoglobin A1c 11.7 H 01/28/22 05:05: POC Glucose 371 H 01/28/22 06:03: POC Glucose 403 H 01/28/22 07:07: POC Glucose 361 H 01/28/22 07:58: POC Glucose 336 H 01/28/22 08:05: Sodium 141, Potassium 3.7, Chloride 110 H, Carbon Dioxide 25.0, Anion Gap 6, BUN 33 H, Creatinine 1.44 H, Estim Creat Clear Calc 27.80, Est GFR (MDRD) Af Amer 45 L, Est GFR (MDRD) Non-Af 37 L, BUN/Creatinine Ratio 22.9 H, Glucose 350 H, Calcium 8.2 L 01/28/22 08:58: POC Glucose 315 H 01/28/22 10:07: POC Glucose 302 H 01/28/22 10:59: POC Glucose 241 H 01/28/22 11:20: Free T4 0.87 01/28/22 12:00: POC Glucose 268 H 01/28/22 12:20: Sodium 142, Potassium 3.6, Chloride 112 H, Carbon Dioxide 25.0, Anion Gap 5, BUN 30 H, Creatinine 1.29 H, Estim Creat Clear Calc 31.04, Est GFR (MDRD) Af Amer 51 L, Est GFR (MDRD) Non-Af 42 L, BUN/Creatinine Ratio 23.3 H, Glucose 258 H, Calcium 7.7 L, TSH 25.00 H 01/28/22 13:15: POC Glucose 259 H 01/28/22 13:59: POC Glucose 257 H 01/28/22 16:56: POC Glucose 225 H 01/28/22 22:40: Urine Color Yellow, Urine Clarity Clear, Urine pH 5.0, Ur Specific [place] 1.025, Urine Protein 15 H, Urine Glucose (UA) 1000 H, Urine Ketones 50 H, Urine Occult Blood 10 H, Urine Nitrite Negative, Urine Bilirubin Negative, Urine Urobilinogen Normal, Ur Leukocyte Esterase 25 H, Urine RBC 0 SEEN, Urine WBC 0-5 SEEN, Ur Squamous Epith Cells 0-5 SEEN, Urine Bacteria 1+, Urine Mucus 0 SEEN 01/28/22 23:38: POC Glucose 178 H 01/29/22 03:00: TSH 57.30 H, Free T4 0.76 01/29/22 03:00: WBC 16.9 H, RBC 3.98 L, Hgb 11.3 L, Hct 34.0 L, MCV 85.4, MCH 28.4, MCHC 33.2, RDW Std Deviation 51.6 H, RDW Coeff of Kristyn 16.5 H, Plt Count 267, MPV 11.5, Immature Gran % (Auto) 0.400, Neut % (Auto) 82.3 H, Lymph % (Auto) 11.6 L, [place] % (Auto) 5.1, Eos % (Auto) 0.2, Baso % (Auto) 0.4, Absolute Neuts (auto) 13.9 H, Absolute Lymphs (auto) 1.96, Nucleated RBC % 0 01/29/22 03:00: Sodium 140, Potassium 3.4 L, Chloride 110 H, Carbon Dioxide 24.0, Anion Gap 6, BUN 26 H, Creatinine 0.98, Estim Creat Clear Calc 40.85, Est GFR (MDRD) Af Amer 71, Est GFR (MDRD) Non-Af 58 L, BUN/Creatinine Ratio 26.6 H, Glucose 148 H, Calcium 7.7 L, Total Bilirubin 0.60, AST 11 L, ALT 17, Alkaline Phosphatase 88, Total Protein 5.1 L, Albumin 2.4 L, Globulin 2.7, Albumin/Globulin Ratio 0.9 01/29/22 05:13: POC Glucose 162 H Rhythm Strip Rhythm Strip: Sinus Tach Rate: 118 Ectopy: None Physical Exam Const alert and no apparent distress Constitutional Narrative: Much more alert and oriented than yesterday. HEENT normocephalic and head/scalp atraumatic HEENT Narrative: Dry mucous membranes Eyes PERRL and EOMs intact bilaterally Neck supple General: trachea midline Chest inspection of chest normal Resp Auscultation: diminished lung sounds; Negative for rales, rhonchi or wheezes Cardio regular rate, regular rhythm, S1 normal heart sound and S2 normal heart sound GI normal to inspection, nondistended, normoactive bowel sounds Extremity no clubbing, cyanosis or edema Skin no rashes or lesions noted Neuro moves all extremities and no focal motor deficits Psych cooperative Charges/Coding Visit Charges Inpatient E&M: 79630 Subs Hosp L2
[2022-01-29] MEDS: Ipratropium/Albuterol Sulfate 3 ML AMPUL.NEB INHALATION ×2 (06:34→18:57)
[2022-01-29] MEDS: Potassium Chloride 10mEq/100mL 10 MEQ/100 ML IV.SOLN. 100 MEQ IV BOLUS ×4 (06:38→09:44)
[2022-01-29] MEDS: 0.45% Normal Saline 1,000 ML 125 ML IV (06:40)
--- NOTE | 2022-01-29 08:11 | PCM.PN.HOSP ---
Subjective Subjective Patient is awake and oriented x3. She feels hungry wants to eat. DKA resolved yesterday Objective Data Objective Data Vital Signs: Vital Signs Temp Pulse Resp BP Pulse Ox 98.6 F 82 16 123/51 H 97 01/29/22 08:00 01/29/22 08:00 01/29/22 08:00 01/29/22 08:00 01/29/22 08:00 Oxygen Flow Rate (L/min) 2 Oxygen Delivery Method Nasal Cannula Weight: 147 lb 11.355 oz Body Mass Index (BMI) 23.8 Intake & Output: Intake and Output for Last 24 Hours 01/27/22 01/28/22 01/29/22 23:59 23:59 23:59 Intake Total 1000 / 1000 5377.99 / 5427.99 1250 / 1250 Output Total 1650 / 1800 350 / 350 Balance 1000 / 1000 3727.99 / 3627.99 900 / 900 Lab / Micro Data Result Diagrams: 01/29/22 03:00 01/29/22 03:00 Labs: Laboratory Results - last 24 hr 01/28/22 04:19: Diff Path Review Reviewed 01/28/22 08:05: Sodium 141, Potassium 3.7, Chloride 110 H, Carbon Dioxide 25.0, Anion Gap 6, BUN 33 H, Creatinine 1.44 H, Estim Creat Clear Calc 27.80, Est GFR (MDRD) Af Amer 45 L, Est GFR (MDRD) Non-Af 37 L, BUN/Creatinine Ratio 22.9 H, Glucose 350 H, Calcium 8.2 L 01/28/22 08:58: POC Glucose 315 H 01/28/22 10:07: POC Glucose 302 H 01/28/22 10:59: POC Glucose 241 H 01/28/22 11:20: Free T4 0.87 01/28/22 12:00: POC Glucose 268 H 01/28/22 12:20: Sodium 142, Potassium 3.6, Chloride 112 H, Carbon Dioxide 25.0, Anion Gap 5, BUN 30 H, Creatinine 1.29 H, Estim Creat Clear Calc 31.04, Est GFR (MDRD) Af Amer 51 L, Est GFR (MDRD) Non-Af 42 L, BUN/Creatinine Ratio 23.3 H, Glucose 258 H, Calcium 7.7 L, TSH 25.00 H 01/28/22 13:15: POC Glucose 259 H 01/28/22 13:59: POC Glucose 257 H 01/28/22 16:56: POC Glucose 225 H 01/28/22 22:40: Urine Color Yellow, Urine Clarity Clear, Urine pH 5.0, Ur Specific [place] 1.025, Urine Protein 15 H, Urine Glucose (UA) 1000 H, Urine Ketones 50 H, Urine Occult Blood 10 H, Urine Nitrite Negative, Urine Bilirubin Negative, Urine Urobilinogen Normal, Ur Leukocyte Esterase 25 H, Urine RBC 0 SEEN, Urine WBC 0-5 SEEN, Ur Squamous Epith Cells 0-5 SEEN, Urine Bacteria 1+, Urine Mucus 0 SEEN 01/28/22 23:38: POC Glucose 178 H 01/29/22 03:00: TSH 57.30 H, Free T4 0.76 01/29/22 03:00: WBC 16.9 H, RBC 3.98 L, Hgb 11.3 L, Hct 34.0 L, MCV 85.4, MCH 28.4, MCHC 33.2, RDW Std Deviation 51.6 H, RDW Coeff of Kristyn 16.5 H, Plt Count 267, MPV 11.5, Immature Gran % (Auto) 0.400, Neut % (Auto) 82.3 H, Lymph % (Auto) 11.6 L, [place] % (Auto) 5.1, Eos % (Auto) 0.2, Baso % (Auto) 0.4, Absolute Neuts (auto) 13.9 H, Absolute Lymphs (auto) 1.96, Nucleated RBC % 0 01/29/22 03:00: Sodium 140, Potassium 3.4 L, Chloride 110 H, Carbon Dioxide 24.0, Anion Gap 6, BUN 26 H, Creatinine 0.98, Estim Creat Clear Calc 40.85, Est GFR (MDRD) Af Amer 71, Est GFR (MDRD) Non-Af 58 L, BUN/Creatinine Ratio 26.6 H, Glucose 148 H, Calcium 7.7 L, Total Bilirubin 0.60, AST 11 L, ALT 17, Alkaline Phosphatase 88, Total Protein 5.1 L, Albumin 2.4 L, Globulin 2.7, Albumin/Globulin Ratio 0.9 01/29/22 05:13: POC Glucose 162 H Rhythm Strip Rhythm Strip: Sinus Tach Rate: 118 Ectopy: None Physical Exam Narrative General: Alert, awake oriented x3 HEENT: Atraumatic, PERRLA, EOMI, Normocephalic Oral: No Gingival or Mucosal Lesions/ Ulcerations Neck: Supple, No JVD, Negative Carotid Bruits Lungs: Air entry diminished in bilateral lung bases. No crepitation/rhonchi Cardiovascular: Regular rate, Regular Rhythm, Normal S1, Normal S2, No murmurs Abdomen: Mild epigastric tenderness. Bowel Sounds Present, Soft, Non-Distended : No renal angle tenderness. No suprapubic tenderness. Extremities: No edema, Capillary Refill Less than 3 Seconds Skin: No rashes, No breakdown Musculoskeletal: No Tenderness to Palpation of Joints or Extremities Neurological: No focal deficit. Nerves II 12 intact Psych/Mental Status: Hard to recall sometimes/possible amnesia Assessment & Plan Assessment/Plan (1) DKA (diabetic ketoacidoses): QUALIFIERS: Diabetes mellitus complication detail: without coma Diabetes mellitus type: type 2 Qualified Code(s): E11.10 - Type 2 diabetes mellitus with ketoacidosis without coma PLAN: The patient is a 76 y/o F with history of diabetes mellitus type 2 on insulin pump admitted with 2 days of worsening nausea, vomiting, hyperglycemia, confusion admitted in ICU with clinical and biochemical evidence of DKA #1. Acute Encephalopathy secondary to DKA/metabolic encephalopathy: Patient has history of type 2 diabetes mellitus on insulin pump. Anion gap closed x2. Patient is still encephalopathic. Continue IV fluid and insulin drip until she is fully awake and can have oral diet. N.p.o. while confused/disoriented. Consulting Software Engineer consult. Glucose 241. 4/8: Acute encephalopathy resolved. Patient is still has leukocytosis, reactive from DKA but improving. Patient started on 1800 ADA diet and transfer to floor #2. Acute kidney injury prerenal secondary to DKA.Admission BUN/Cr 40/1.97, prior baseline creatinine noted to be 0.8-0.9. Her creatinine went up to 2.06. Most recent 1.44. continue to aggressively hydrate, hold nephrotoxic medications and repeat chemistry in AM. If no improvement would plan FeNa and renal ultrasound assessment. IV fluid changed to half-normal saline. Serum sodium 141, chloride 110. Phosphorus 3.6, magnesium 2.2. 4/8: THANIA resolved. BUN/creatinine 26/0.8. #3. Hypertension pressure normal. #4. COPD/emphysema: DuoNeb as needed. Incentive spirometry and bronchopulmonary hygiene. #5. Hypothyroidism: continue patient on levothyroxine regimen once oral intake safe. #6. Hyperlipidemia: Continue home statin regimen once oral intake safe. #7. History of bilateral PE: Will continue renally dosed Xarelto regimen if oral intake safe otherwise will need to transition to heparin drip. #8. Tobacco Abuse: Encouraged cessation, inpatient consultation per RT, NR if desired. #9. DVT prophylaxis: SCDs, continue home Xarelto regimen 15 mg p.o. daily given THANIA as noted, resume home regimen once appropriate renal function Charges/Coding Visit Charges Inpatient E&M: 92418 Subs Hosp L2
[2022-01-29 09:00] LABS: Magnesium 1.8 mg/dL (1.6-2.6); Phosphorus 2.3 mg/dL (2.5-4.9)
[2022-01-29] MEDS: Metoprolol(XL)Succ 50 MG Tablet PO (10:43)
[2022-01-29] MEDS: Rivaroxaban 15 MG Tablet PO (10:44)
[2022-01-29] MEDS: Tolterodine Tartrate 2 MG CAP.SA PO (10:44)
[2022-01-29] MEDS: 0.9% Saline Lock 10 ML Syringe IV (10:49)
[2022-01-29] MEDS: Insulin Glargine-YFGN 100 UNIT/ML Pen 10 UNIT SC (11:30)
[2022-01-29 11:35] LABS: Bedside Glucose 384 mg/dL (74-106)
--- NOTE | 2022-01-29 15:57 | CASEMGMT ---
Social Work SW met with pt and introduced self and role of SW. Pt is awake and lying in bed. Alert and able to converse but cannot remember why she is in the hospital. Pt states at discharge she is going home with her friend Dillon so he can keep an eye on her. With pt permission phone call placed to friend Dillon. Dillon confirms he plans to take pt to his home and provide 24 hour care for her. Don confirms concerns with pt memory and states he called pt son last evening and informed of concerns. Dillon feels he is able to care for pt at this time and plans to speak to pt PCP for further advice once pt is home. CHRISTAL spoke with Dillon about Assisted Living. Dillon indicates he does not feel pt is ready for this yet. CHRISTAL will remain available for further needs. BRIANNE Redmond
[2022-01-29 17:25] LABS: Bedside Glucose 302 mg/dL (74-106)
[2022-01-29] MEDS: Atorvastatin Calcium 10 MG Tablet 5 MG PO (21:23)
[2022-01-29 21:41] LABS: Bedside Glucose 259 mg/dL (74-106)
[2022-01-30] VITALS (11 sets, daily range): BP systolic 137–157; BP diastolic 59–67; PULSE 73–93; RESP 16–18; TEMP 36.6–36.9; O2SAT 90–94
[2022-01-30] MEDS: Albuterol 2.5 MG/3 ML VIAL.NEB. INHALATION (04:29)
[2022-01-30] MEDS: Insulin Lispro 100 UNIT/ML INSULN.PEN SC ×3 (06:34→16:15)
[2022-01-30 06:43] LABS: Absolute Lymphocyte Count 1.82 X10^3/uL (0.83-4.51); Absolute Neutrophil Count 7.3 X10^3/uL (2.0-7.7); Basophil# 0.04 X10^3/uL; Basophil% 0.4 % (0-1); Eosinophil# 0.09 X10^3/uL; Eosinophils% 0.9 % (0-5); Hematocrit 35.8 % (37-47); Hemoglobin 11.7 g/dL (12.0-15.0); Lymphocyte # 1.82 X10^3/ul (0.83-4.51); Lymphocyte % 18.2 % (19-41); Mean Corp Hgb Conc 32.7 g/dL (32-36); Mean Corpuscular Hgb 28.2 pg (27.0-32.0); Mean Corpuscular Volume 86.3 fL (81-99); Monocyte# 0.73 X10^3/uL; Monocyte% 7.3 % (0-10); NRBC Flagged by Analyzer 0 % (0-5); Neutrophil # 7.29 X10^3/uL (2.7-7.7); Neutrophil % 72.9 % (47-70); Platelet Count 255 K/mm3 (150-450); RBC Distribution Width CV 16.8 % (11.6-14.6); RBC Distribution Width SD 52.7 fl (35.1-43.9); Red Blood Count 4.15 M/mm3 (4.2-5.4)
[2022-01-30 07:11] LABS: ALB/GLOB Ratio 0.9 RATIO (0.9-2.4); AST(SGOT) 9 U/L (15-37); Alanine Aminotransfer ALT/SGPT 16 U/L (13-56); Albumin, Serum 2.5 g/dL (3.2-5.0); Alkaline Phosphatase 88 U/L (45-117); Anion Gap 7 (5-15); BUN 18 mg/dL (7-18); BUN/Creat Ratio 21.9 RATIO (10-20); Calcium,Total 8.1 mg/dL (8.5-10.1); Chloride 104 mmol/L (98-107); Creatinine, Serum 0.82 mg/dL (0.55-1.02); EST Glomerular Filtration Rate 71 mL/min (>60); Est Glom Filt Rate - Afr Amer 86 mL/min (>60); Estimated Creatinine Clearance 48.83 ml/min; Globulin 2.8 g/dL (2.2-4.2); Glucose 225 mg/dL (74-106); Potassium 3.6 mmol/L (3.5-5.1); Protein, Total 5.3 g/dL (6.4-8.2); Sodium Level 136 mmol/L (136-145)
[2022-01-30] MEDS: Ipratropium/Albuterol Sulfate 3 ML AMPUL.NEB INHALATION ×2 (07:25→13:44)
[2022-01-30] MEDS: Levothyroxine 112 MCG Tablet PO (07:29)
--- NOTE | 2022-01-30 08:04 | PCM.PN.INT ---
Assessment & Plan Assessment/Plan (1) DKA (diabetic ketoacidoses): QUALIFIERS: Diabetes mellitus complication detail: without coma Diabetes mellitus type: type 2 Qualified Code(s): E11.10 - Type 2 diabetes mellitus with ketoacidosis without coma PLAN: RECOMMENDATIONS: 1. Continue basal and sliding scale insulin coverage. 2. Continue bronchodilators. 3. Encourage incentive spirometer use and mobilize patient as tolerated. 4. Will sign off from a critical care perspective. Please call with any additional questions. IMPRESSIONS: 1. Diabetic ketoacidosis Resolved. Likely secondary to noncompliance with outpatient prescribed insulin regimen. Hemoglobin A1c was noted to be nearly 12. The patient was initially managed with continuous IV fluids and an insulin infusion until anion gap was closed. She has since been transitioned to basal and sliding scale insulin coverage, which will be continued. 2. Encephalopathy Improved. Likely metabolic in etiology and related to #1. CT head was unremarkable. 3. Acute kidney injury Resolved. Prerenal in etiology. No current indication for renal replacement therapy. 4. History of pulmonary emboli Continue systemic anticoagulation with Xarelto. 5. History of COPD/chronic tobacco dependency/hypothyroidism/hypertension/hyperlipidemia Complicates care, management, recovery and prognosis. Continue home medications as indicated. This note was generated with Medax[employer] dictation software. It may contain incorrect words, spelling, and punctuation that were not noted in checking the note before signing. Subjective Subjective The patient was seen and examined at the bedside this morning. Events from the last 24 hours have been reviewed. The patient is currently afebrile, hemodynamically stable and maintaining appropriate oxygen saturations on 2 L/min via nasal cannula. The patient is currently documented to be overall net +4.8 L for the hospitalization. Blood glucose is stable. Objective Data Objective Data The patient's most recent lab work, culture data and imaging studies have all been personally reviewed. Vital Signs: Vital Signs Temp Pulse Resp BP Pulse Ox 97.8 F 80 16 143/59 H 94 01/30/22 06:11 01/30/22 07:27 01/30/22 07:27 01/30/22 06:11 01/30/22 07:27 Oxygen Flow Rate (L/min) 2 Oxygen Delivery Method Nasal Cannula Weight: 70.2 kg Body Mass Index (BMI) 23.8 Intake & Output: Intake and Output for Last 24 Hours 01/28/22 01/29/22 01/30/22 23:59 23:59 23:59 Intake Total 5377.99 / 5427.99 2610.42 / 2610.42 Output Total 1650 / 1800 1250 / 1250 1200 / 1200 Balance 3727.99 / 3627.99 1360.42 / 1360.42 -1200 / -1200 Medical Nutrition Assessment Dietitian: Malnutrition Criteria Met Start: 01/29/22 09:40 Freq: Status: Active Protocol: Document 01/29/22 09:40 [facility] (Rec: 01/29/22 09:40 [facility] [id number]) Nutrition Malnutrition Evidence of Malnutrition Exists Yes Malnutrition (severe): Acute Illness/Injury Evidenced By Suboptimal Energy Intake ( Severe),Weight Loss (Severe) Clinical Problem Acute Disease or Injury Related Malnutrition Etiology related to pt not consuming adequate nutrition to meet est nutritional needs Signs/Symptoms as evidenced by pt self report of <50% po intake at meals x >1 month and 7.7% wt loss x 3 mo and 11.4% wt loss x 6 mo. Status Active Problem Altered Nutrient-Related Laboratory Values Etiology r/t DM2 w/ malfunctioning insulin pump Signs/Symptoms as evidenced by A1C 11.7%, glucose 476, admission glucose 887 Status Active Problem Recommendation Dietitian Recommendations/Changes Will change diet to calorie controlled, consistent CHO. Will monitor PO intake and offer Glucerna if po intake fails to improve and/or continued wt loss. Lab / Micro Data Attestation: I reviewed the patient's lab results. Result Diagrams: 01/30/22 06:05 01/30/22 06:05 Labs: Laboratory Results - last 24 hr 01/29/22 03:00: Phosphorus 2.3 L, Magnesium 1.8 01/29/22 11:29: POC Glucose 384 H 01/29/22 17:01: POC Glucose 302 H 01/29/22 21:20: POC Glucose 259 H 01/30/22 06:05: WBC 10.0, RBC 4.15 L, Hgb 11.7 L, Hct 35.8 L, MCV 86.3, MCH 28.2, MCHC 32.7, RDW Std Deviation 52.7 H, RDW Coeff of Kristyn 16.8 H, Plt Count 255, MPV 12.0, Immature Gran % (Auto) 0.300, Neut % (Auto) 72.9 H, Lymph % (Auto) 18.2 L, [place] % (Auto) 7.3, Eos % (Auto) 0.9, Baso % (Auto) 0.4, Absolute Neuts (auto) 7.3, Absolute Lymphs (auto) 1.82, Nucleated RBC % 0 01/30/22 06:05: Sodium 136, Potassium 3.6, Chloride 104, Carbon Dioxide 25.0, Anion Gap 7, BUN 18, Creatinine 0.82, Estim Creat Clear Calc 48.83, Est GFR (MDRD) Af Amer 86, Est GFR (MDRD) Non-Af 71, BUN/Creatinine Ratio 21.9 H, Glucose 225 H, Calcium 8.1 L, Total Bilirubin 0.70, AST 9 L, ALT 16, Alkaline Phosphatase 88, Total Protein 5.3 L, Albumin 2.5 L, Globulin 2.8, Albumin/Globulin Ratio 0.9 Rhythm Strip Rhythm Strip: Sinus Tach Rate: 118 Ectopy: None Physical Exam Const alert and no apparent distress General Appearance: cooperative HEENT normocephalic and head/scalp atraumatic HEENT Narrative: Dry mucous membranes Eyes PERRL and EOMs intact bilaterally Neck supple General: trachea midline Chest inspection of chest normal Resp Auscultation: diminished lung sounds; Negative for rales, rhonchi or wheezes Cardio regular rate, regular rhythm, S1 normal heart sound and S2 normal heart sound GI normal to inspection, nondistended, normoactive bowel sounds Extremity no clubbing, cyanosis or edema Skin no rashes or lesions noted Neuro moves all extremities and no focal motor deficits Psych cooperative Charges/Coding Visit Charges Inpatient E&M: 56249 Subs Hosp L2
[2022-01-30 08:21] LABS: Bedside Glucose 241 mg/dL (74-106)
--- NOTE | 2022-01-30 08:21 | PCM.DC ---
Discharge Instructions Diet Discharge Diet: 1800 Calorie Control Diet and 2000 mg Sodium Diet Activity Discharge Activity: Return to Normal Activity and May Not Drive Weight Bearing Status: Weight bearing as tolerated Dressing / Incision Call your doctor if you observe: Fever of 101 or Higher, Coldness, Increased Pain, Numbness or Tingling, Change in Color, Inability to urinate, Inability to have a bowel movement, Using more than 1 pad per hour, Shortness of breath, Dizziness, Fainting spells, Swelling in the ankles, Chest pain, Prolonged hiccupping, Increased palpitations (irregular heartbeat), Calf discomfort and Uncontrolled pain Follow Up Care Test Results: Test results from this visit will be discussed in further detail at your follow-up appointment, if applicable. Discharge Plan Admission Admit Date/Time: 01/27/22 22:32 Primary Reason for Your Visit: DKA, acute encephalopathy Attending Provider: Ronaldo Hickey Primary Care Provider: Shena Jeffers Consulting Providers: Dominic Smith Discharge Orders/Prescriptions Prescriptions: New potassium, sodium phosphates 280-160-250 mg Powder In Packet 1 packet PO TID Qty: 6 RF: 0 potassium chloride [Klor-Con M20] 20 mEq Tablet,Er Particles/Crystals 40 meq PO DAILYCM Qty: 6 RF: 0 insulin lispro [Humalog KwikPen Insulin] 100 unit/mL Insulin Pen See Protocol unit subcut ACHS Qty: 0 RF: 0 insulin lispro [Humalog KwikPen Insulin] 100 unit/mL Insulin Pen 13 unit subcut TIDAC Qty: 1 RF: 5 Continued levothyroxine 112 mcg tablet 112 mcg PO DAILY RF: 0 amlodipine-benazepril [Lotrel] 5-10 mg capsule 1 cap PO DAILY RF: 0 oxybutynin chloride 5 mg tablet 10 mg PO DAILY RF: 0 metoprolol succinate [Toprol XL] 50 mg tablet extended release 24 hr 50 mg PO DAILY RF: 0 simvastatin 10 mg tablet 10 mg PO DAILY RF: 0 fluticasone propion-salmeterol [Wixela Inhub] 100-50 mcg/dose blister with device 1 inh inhalation BID PRN (Reason: SOB) RF: 0 albuterol sulfate [Proventil HFA] 90 mcg/actuation HFA aerosol inhaler 1 puff inhalation ONCE PRN (Reason: shortness of breath or wheezing) RF: 0 Xarelto 20 mg tablet 20 mg PO DAILY Qty: 30 RF: 0 Changed Lantus U-100 Insulin 100 unit/mL solution 20 unit subcut QPM 30 Days Qty: 3 RF: 5 Discontinued insulin aspart U-100 [Novolog U-100 Insulin aspart] 100 unit/mL solution 100 unit continuous subcutaneous infusion .continuous RF: 0 Referrals / Follow Up: Shena Jeffers DO [Primary Care Provider] - Within 2 Weeks (Patient also looks depressed.) Disposition Disposition (needs filled in before D/C Order can be placed): Home, Self Care
[2022-01-30] MEDS: Potassium Chloride Oral Tablet 20 MEQ 40 MEQ PO (08:31)
[2022-01-30] MEDS: Rivaroxaban 15 MG Tablet PO (08:31)
[2022-01-30] MEDS: Metoprolol(XL)Succ 50 MG Tablet PO (08:31)
[2022-01-30] MEDS: Insulin Glargine-YFGN 100 UNIT/ML Pen 15 UNIT SC (08:32)
[2022-01-30] MEDS: Tolterodine Tartrate 2 MG CAP.SA PO (09:57)
[2022-01-30] MEDS: Na Biphos/Potassium Phosphate PACKET 1 PACKET PO ×2 (09:57→14:33)
[2022-01-30 11:21] LABS: Bedside Glucose 247 mg/dL (74-106)
[2022-01-30] MEDS: Insulin Lispro 100 UNIT/ML INSULN.PEN 8 UNIT SC ×2 (11:26→16:16)
[2022-01-30 11:31] LABS: Bedside Glucose 311 mg/dL (74-106)
--- NOTE | 2022-01-30 13:35 | CASEMGMT ---
Addendum entered by Jeanine Cerda 01/30/22 13:38: Pt/sig other aware that insurance does not cover canes and sig other states he was planning to just pick one up for her anyway. Yas CAMRONA CM Original Note: Per therapy, pt would benefit from a cane and HHC at discharge. This RN CM to room and per pt/sig other, they would like [facility] set up for PT/OT at discharge. Referral message left with Amber at [facility]. Order placed. CM to follow. Pt plans to stay with sig other and address updated to same. Yas CARMONA CM
--- NOTE | 2022-01-30 14:19 | PCM.DC.SUM ---
Providers Date of Admission: 01/27/22 Date of Discharge: 01/30/22 Primary Care Physician: Dr. Shena Jeffers, Consultations 01/28/22 00:04 Consult: [employer] Superintendent / Pulmonary Medicine Routine Consulting Provider: Dominic Smith Reason for Consult: DKA, encephalopathy EMERGENT Consult: No MD Notified: Yes Date Notified: 01/27/22 Time Notified: 22:36 Method of Notification: Text Reason For Visit: DKA Diagnosis Discharge Diagnosis (1) DKA (diabetic ketoacidoses): Status: Acute Code(s): E11.10 - Type 2 diabetes mellitus with ketoacidosis without coma Qualifiers: Diabetes mellitus complication detail: without coma Diabetes mellitus type: type 2 Qualified Code(s): E11.10 - Type 2 diabetes mellitus with ketoacidosis without coma Medications at Discharge Home Medications albuterol sulfate 90 mcg/actuation aerosol inhaler 1 puff INHALATION ONCE PRN 09/08/21 amlodipine 5 mg-benazepril 10 mg capsule 1 cap PO DAILY 09/08/21 fluticasone 100 mcg-salmeterol 50 mcg/dose blistr powdr for inhalation 1 inh INHALATION BID PRN 09/08/21 levothyroxine 112 mcg tablet 112 mcg PO DAILY 09/08/21 metoprolol succinate 50 mg tablet,extended release 24 hr 50 mg PO DAILY 09/08/21 oxybutynin chloride 5 mg tablet 10 mg PO DAILY tab 09/08/21 simvastatin 10 mg tablet 10 mg PO DAILY 09/08/21 Xarelto 20 mg PO DAILY #30 tab 11/22/21 Lantus U-100 Insulin 20 unit SUBCUT QPM 30 Days #3 ml 01/30/22 insulin lispro [Humalog KwikPen Insulin] 13 unit SUBCUT TIDAC #1 ml 01/30/22 insulin lispro [Humalog KwikPen Insulin] See Protocol SUBCUT ACHS #0 ml 01/30/22 paroxetine mesylate 20 mg PO DAILY #30 tab 01/30/22 potassium chloride [Klor-Con M20] 40 meq PO DAILYCM #6 tab 01/30/22 potassium, sodium phosphates 1 packet PO TID #6 ea 01/30/22 Hospital Course Summary of Care Provided Hospital Course: The patient is a 76 y/o F with history of diabetes mellitus type 2 on insulin pump admitted with 2 days of worsening nausea, vomiting, hyperglycemia, confusion admitted in ICU with clinical and biochemical evidence of DKA #1. Acute Encephalopathy secondary to DKA/metabolic encephalopathy: Patient has history of type 2 diabetes mellitus on insulin pump. Anion gap closed x2. N.p.o. while confused/disoriented. Patient was encephalopathic more than 24 hours after admission. The patient was managed with IV fluid and insulin drip until she is fully awake and can have oral diet. Health Information Tech consult. Glucose 241. 01/29: Acute encephalopathy resolved. Patient is still has leukocytosis, reactive from DKA but improving. Patient started on 1800 ADA diet and transfer to floor 01/30: Mild depression: Patient has symptoms of being sad and depressed along with anhedonia. Denies suicidal ideation or attempt. Prescription given for paroxetine. Advised to follow-up PCP in 1 week. Patient is not proactive to manage insulin pump and had 2 admissions of DKA due to malfunctioning of insulin pump. Therefore advised intermittent subcutaneous insulin injection regimen with Accu-Cheks before meals and at bedtime. Prescription given for insulin lispro. #2. Acute kidney injury prerenal secondary to DKA with hypomagnesemia, hypokalemia and hypophosphatemia.Admission BUN/Cr 40/1.97, prior baseline creatinine noted to be 0.8-0.9. Her creatinine went up to 2.06. Most recent 1.44. continue to aggressively hydrate, hold nephrotoxic medications and repeat chemistry in AM. If no improvement would plan FeNa and renal ultrasound assessment. IV fluid changed to half-normal saline. Serum sodium 141, chloride 110. Phosphorus 3.6, magnesium 2.2. 01/29: THANIA resolved. BUN/creatinine 26/0.8. 01/30: Electrolytes getting replaced. Prescription given for potassium supplement and Neutra-Phos. #3. Hypertension pressure normal. #4. COPD/emphysema: DuoNeb as needed. Incentive spirometry and bronchopulmonary hygiene. #5. Hypothyroidism: continue patient on levothyroxine regimen once oral intake safe. #6. Hyperlipidemia: Continue home statin regimen once oral intake safe. #7. History of bilateral PE: continue renally dosed Xarelto regimen if oral intake safe otherwise will need to transition to heparin drip. #8. Tobacco Abuse: Encouraged cessation, inpatient consultation per RT, NR if desired. #9. DVT prophylaxis: SCDs, continue home Xarelto regimen 15 mg p.o. daily. THANIA resolved. Patient back on Xarelto 20 mg daily Discharge medication reconciliation done. Discharge follow-up instructions completed. Discharge process discussed with the patient and her neighbor near the bedside and all questions were answered to patient's satisfaction. Total time spent, exact 35 minutes on discharge meds reconciliation, examination, coordination of care with nurses and ancillary staff, review of imaging and blood test and discussion with the patient on follow-up instructions. Physical Exam Narrative Patient states she feels sad and depressed and anhedonia. She denies suicidal ideation or attempt or homicidal ideation. She does not do much other activities and sleeps in the recliner. Advised to follow-up PCP. General: Alert, awake oriented x3 HEENT: Atraumatic, PERRLA, EOMI, Normocephalic Oral: No Gingival or Mucosal Lesions/ Ulcerations Neck: Supple, No JVD, Negative Carotid Bruits Lungs: Air entry diminished in bilateral lung bases. No crepitation/rhonchi Cardiovascular: Regular rate, Regular Rhythm, Normal S1, Normal S2, No murmurs Abdomen: Mild epigastric tenderness. Bowel Sounds Present, Soft, Non-Distended : No renal angle tenderness. No suprapubic tenderness. Extremities: No edema, Capillary Refill Less than 3 Seconds Skin: No rashes, No breakdown Musculoskeletal: No Tenderness to Palpation of Joints or Extremities Neurological: No focal deficit. Nerves II 12 intact Psych/Mental Status: Hard to recall sometimes/possible amnesia Medical Records Data Medical Nutrition Assessment Dietitian: Malnutrition Criteria Met Start: 01/29/22 09:40 Freq: Status: Active Protocol: Document 01/29/22 09:40 [facility] (Rec: 01/29/22 09:40 [facility] [id number]) Nutrition Malnutrition Evidence of Malnutrition Exists Yes Malnutrition (severe): Acute Illness/Injury Evidenced By Suboptimal Energy Intake ( Severe),Weight Loss (Severe) Clinical Problem Acute Disease or Injury Related Malnutrition Etiology related to pt not consuming adequate nutrition to meet est nutritional needs Signs/Symptoms as evidenced by pt self report of <50% po intake at meals x >1 month and 7.7% wt loss x 3 mo and 11.4% wt loss x 6 mo. Status Active Problem Altered Nutrient-Related Laboratory Values Etiology r/t DM2 w/ malfunctioning insulin pump Signs/Symptoms as evidenced by A1C 11.7%, glucose 476, admission glucose 887 Status Active Problem Recommendation Dietitian Recommendations/Changes Will change diet to calorie controlled, consistent CHO. Will monitor PO intake and offer Glucerna if po intake fails to improve and/or continued wt loss. Weight / BMI Weight Weight: 154 lb 12.232 oz Body Mass Index (BMI) 23.8 ABG / Lab / Microbiology Data Result Diagrams: 01/30/22 06:05 01/30/22 06:05 Laboratory: Laboratory Results - last 24 hr 01/29/22 03:00: Phosphorus 2.3 L, Magnesium 1.8 01/29/22 11:29: POC Glucose 384 H 01/29/22 17:01: POC Glucose 302 H 01/29/22 21:20: POC Glucose 259 H 01/30/22 06:05: WBC 10.0, RBC 4.15 L, Hgb 11.7 L, Hct 35.8 L, MCV 86.3, MCH 28.2, MCHC 32.7, RDW Std Deviation 52.7 H, RDW Coeff of Kristyn 16.8 H, Plt Count 255, MPV 12.0, Immature Gran % (Auto) 0.300, Neut % (Auto) 72.9 H, Lymph % (Auto) 18.2 L, [place] % (Auto) 7.3, Eos % (Auto) 0.9, Baso % (Auto) 0.4, Absolute Neuts (auto) 7.3, Absolute Lymphs (auto) 1.82, Nucleated RBC % 0 01/30/22 06:05: Sodium 136, Potassium 3.6, Chloride 104, Carbon Dioxide 25.0, Anion Gap 7, BUN 18, Creatinine 0.82, Estim Creat Clear Calc 48.83, Est GFR (MDRD) Af Amer 86, Est GFR (MDRD) Non-Af 71, BUN/Creatinine Ratio 21.9 H, Glucose 225 H, Calcium 8.1 L, Total Bilirubin 0.70, AST 9 L, ALT 16, Alkaline Phosphatase 88, Total Protein 5.3 L, Albumin 2.5 L, Globulin 2.8, Albumin/Globulin Ratio 0.9 01/30/22 08:12: POC Glucose 241 H Meaningful Use Info Meaningful Use Diagnoses (Choose all that apply): None applicable Discharge Plan Admission Admit Date/Time: 01/27/22 22:32 Primary Reason for Your Visit: DKA, acute encephalopathy Attending Provider: Ronaldo Hickey Primary Care Provider: Shena Jeffers Consulting Providers: Dominic Smith Discharge Orders/Prescriptions Prescriptions: New potassium, sodium phosphates 280-160-250 mg Powder In Packet 1 packet PO TID Qty: 6 RF: 0 potassium chloride [Klor-Con M20] 20 mEq Tablet,Er Particles/Crystals 40 meq PO DAILYCM Qty: 6 RF: 0 insulin lispro [Humalog KwikPen Insulin] 100 unit/mL Insulin Pen See Protocol unit subcut ACHS Qty: 0 RF: 0 insulin lispro [Humalog KwikPen Insulin] 100 unit/mL Insulin Pen 13 unit subcut TIDAC Qty: 1 RF: 5 paroxetine mesylate 20 mg tablet 20 mg PO DAILY Qty: 30 RF: 0 Continued levothyroxine 112 mcg tablet 112 mcg PO DAILY RF: 0 amlodipine-benazepril [Lotrel] 5-10 mg capsule 1 cap PO DAILY RF: 0 oxybutynin chloride 5 mg tablet 10 mg PO DAILY RF: 0 metoprolol succinate [Toprol XL] 50 mg tablet extended release 24 hr 50 mg PO DAILY RF: 0 simvastatin 10 mg tablet 10 mg PO DAILY RF: 0 fluticasone propion-salmeterol [Wixela Inhub] 100-50 mcg/dose blister with device 1 inh inhalation BID PRN (Reason: SOB) RF: 0 albuterol sulfate [Proventil HFA] 90 mcg/actuation HFA aerosol inhaler 1 puff inhalation ONCE PRN (Reason: shortness of breath or wheezing) RF: 0 Xarelto 20 mg tablet 20 mg PO DAILY Qty: 30 RF: 0 Changed Lantus U-100 Insulin 100 unit/mL solution 20 unit subcut QPM 30 Days Qty: 3 RF: 5 Discontinued insulin aspart U-100 [Novolog U-100 Insulin aspart] 100 unit/mL solution 100 unit continuous subcutaneous infusion .continuous RF: 0 Referrals / Follow Up: Shena Jeffers DO [Primary Care Provider] - Within 2 Weeks (Patient also looks depressed.) Disposition Disposition (needs filled in before D/C Order can be placed): Home, Self Care Charges/Coding Visit Charges Inpatient E&M: 58697 Disch Hosp
[2022-01-30 16:26] LABS: Bedside Glucose 254 mg/dL (74-106)
--- NOTE | 2022-02-01 09:00 | CASEMGMT ---
Call from Amber at [facility] and she states they can accept pt with SOC 02/02/22. Pt to be updated during RN CM f/u call. Yas CARMONA CM
--- NOTE | 2022-02-01 11:47 | CASEMGMT ---
Prior authorization request received regarding the prescription for paroxetine HCL which Dr. Hickey prescribed for pt upon discharge. This is noted to be a nonformulary medication per Covermymeds. Dr. Hickey is not scheduled on this date for follow-up. this RN CM contacted pt's PCP Dr. Jeffers's office and voicemail message left requesting follow-up regarding an in-formulary alternative for patient. Contact information provided for this RN CM for further collaboration. Brannon Abdul RN CM
--- NOTE | 2022-02-02 09:33 | CASEMGMT ---
KRISTINE ALEMAN Follow-up: A prior authorization request was received this AM for the insulin Lispro pen. This KRISTINE ALEMAN contacted pt via phone to discuss discharge medications. Pt states she did not fill the paroxetine and will await a prescription from her PCP for a formulary alternative. Pt states she did not fill the insulin pen prescription but states she has a vial of Lispro and prefers to use the vial rather than the pen. Pt states she has not been using her insulin pump. Discussed insulin orders and questions answered. Pt states she did not take her Lantus insulin last pm and that her sugar was high this morning. She did administer the Lipro 13u plus the corresponding amount per sliding scale. Pt would not disclose the reading of her blood sugar this AM. Pt states that her home health nurse will be visiting today to help her further with her medications. Pt states she has not made her follow-up appointment with her PCP but plans to do so today. Pt denies any questions or concerns at this time. Brannon Abdul RN CM
== END 2022-01-30 17:24 | disposition home or self-care (01) | DRG 637 ==
LOC: ED 21:39 → ICU 23:00 → PCU 01-29 13:42
PROVIDERS: Internal Medicine Critical Care Medicine; Admitting Provider Family Medicine; Emergency Provider Emergency Medicine; PCP Internal Medicine; Visit Provider Internal Medicine
DX: E11.10 Type 2 diabetes mellitus with ketoacidosis without coma (principal); G93.41 Metabolic encephalopathy; N17.9 Acute kidney failure, unspecified; E83.39 Other disorders of phosphorus metabolism; Z79.4 Long term (current) use of insulin; J43.9 Emphysema, unspecified; I10 Essential (primary) hypertension; F17.210 Nicotine dependence, cigarettes, uncomplicated; E78.5 Hyperlipidemia, unspecified; E03.9 Hypothyroidism, unspecified; E87.6 Hypokalemia; Z79.01 Long term (current) use of anticoagulants; Z96.41 Presence of insulin pump (external) (internal); Z91.19 Patient's noncompliance with other medical treatment and regimen; Z79.899 Other long term (current) drug therapy; Z79.890 Hormone replacement therapy; Z86.711 Personal history of pulmonary embolism; F32.A Depression, unspecified
CPT/HCPCS: 36415; 70450; 71045; 80048; 80053; 81001; 82009; 82803; 82947; 82962; 83036; 83735; 84100; 84439; 84443; 84484; 85025; 87040; 93005; 94640; 97110; 97116; 97162; 97166; 97530; 97535; 97803; 99251; 99285; 99406; J7030; J7050; A4216; G0463; J7799

== ENCOUNTER 2022-02-06 09:11 | Inpatient (IN) | payer MEDICARE, OTHER, SELFPAY ==
[2022-02-06] VITALS (9 sets, daily range): BP systolic 103–128; BP diastolic 49–59; PULSE 80–115; RESP 16–24; TEMP 35.8–36.9; O2SAT 88–98; BMI 25.1; BMI 25.0
--- NOTE | 2022-02-06 09:26 | EKG12_ITS ---
Test Reason : Blood Pressure : / mmHG Vent. Rate : 096 BPM Atrial Rate : 096 BPM P-R Int : 162 ms QRS Dur : 082 ms QT Int : 350 ms P-R-T Axes : 068 069 047 degrees QTc Int : 442 ms Normal sinus rhythm Low voltage QRS (Limb Leads) Confirmed by RICKIE MCKEON, AMY ([id number]), metropolitan editor JAZMÍN CERVANTES ([id number]) on 02/08/2022 12:53:38 PM Referred By: DONA Confirmed By:AMY DAMIAN MD
--- NOTE | 2022-02-06 09:28 | EDS_ITS ---
HPI History of Present Illness Chief Complaint: Hyperglycemia Informant: patient and spouse/S.O. Narrative Narrative: 76-year-old female presenting to the emergency room for the evaluation of hyperglycemia. Patient has a history of diabetes and until very recently was on an insulin pump. She has been moved from [place] to [place] due to the development of some mild dementia. Patient was admitted 10 days ago with DKA. It is reported that EMS was at their house last night for a blood sugar of 34. This morning her blood sugar reading was staying high. They administered 15 units of insulin and she became nauseous and started feeling poorly so they checked her sugar again and it was again high so they came to emergency. Patient denies any recent infectious symptoms. No fevers. Family states that they are doing their best to keep her out of assisted living but are having a very hard time managing her blood sugars. PFSH PFSH Medical History COPD (chronic obstructive pulmonary disease) Diabetes Emphysema lung HLD (hyperlipidemia) HTN (hypertension) Hypothyroidism Osteopenia Pulmonary embolism, bilateral Smoker Home Medications albuterol sulfate 90 mcg/actuation aerosol inhaler 1 puff INHALATION ONCE PRN 09/08/21 [History Last Taken 10/05/21] amlodipine 5 mg-benazepril 10 mg capsule 1 cap PO DAILY 09/08/21 [History Last Taken 10/06/21] fluticasone 100 mcg-salmeterol 50 mcg/dose blistr powdr for inhalation 1 inh INHALATION BID PRN 09/08/21 [History Last Taken 10/05/21] levothyroxine 112 mcg tablet 112 mcg PO DAILY 09/08/21 [History Last Taken 10/06/21] metoprolol succinate 50 mg tablet,extended release 24 hr 50 mg PO DAILY 09/08/21 [History Last Taken 10/06/21] oxybutynin chloride 5 mg tablet 10 mg PO DAILY tab 09/08/21 [History Last Taken 10/06/21] Xarelto 20 mg PO DAILY #30 tab 11/22/21 [Rx Last Taken Unknown] Lantus U-100 Insulin 20 unit SUBCUT QPM 30 Days #3 ml 01/30/22 [Rx Last Taken Unknown] insulin lispro [Humalog KwikPen Insulin] 13 unit SUBCUT TIDAC #1 ml 01/30/22 [Rx Last Taken Unknown] insulin lispro [Humalog KwikPen Insulin] See Protocol SUBCUT ACHS #0 ml 01/30/22 [Rx Last Taken Unknown] paroxetine mesylate 20 mg PO DAILY #30 tab 01/30/22 [Rx Last Taken Unknown] potassium chloride [Klor-Con M20] 40 meq PO DAILYCM #6 tab 01/30/22 [Rx Last Taken Unknown] potassium, sodium phosphates 1 packet PO TID #6 ea 01/30/22 [Rx Last Taken Unknown] simvastatin 10 mg PO DAILY #30 tab 01/31/22 [Rx Last Taken Unknown] Allergy/AdvReac Type Severity Reaction Status Date / Time ciprofloxacin [From Cipro] Allergy Intermediate hives Verified 02/06/22 09:28 Sulfa (Sulfonamide Allergy Intermediate hives Verified 02/06/22 09:28 Antibiotics) Family History Father Diabetes Respiratory disease Surgical History S/P insertion of insulin pump Social History household members: none Smoking Status: Former smoker alcohol intake: current alcohol intake frequency: a few times a month substance use type: does not use ROS ROS ED Constitutional Constitutional ED: Denies chills or weight loss Eyes Eyes: Denies change in vision or diplopia ENT ENT ED: Denies ear pain, rhinorrhea or sore throat Cardiovascular Cardiovascular: Denies chest pain, orthopnea, palpitations or racing heartbeat Respiratory/Chest Respiratory/Chest: Denies cough, dyspnea or orthopnea Gastrointestinal Gastrointestinal: Reports nausea; Denies abdominal pain, diarrhea or vomiting Genitourinary Genitourinary ED: Denies dysuria, hematuria or urinary frequency Musculoskeletal Musculoskeletal: Denies arthralgias or myalgias Integumentary Denies abscess or rash Neurologic Neurologic: Denies headache(s) or weakness Psychiatric Psychiatric: Reports other Details: confusion at times ; Denies anxiety, depression, suicidal ideation or suicidal thoughts Endocrine Endocrinology: Denies polydipsia, polyphagia or polyuria Allergic/Immunologic Allergic/Immunologic ED: Denies mouth swelling, tongue swelling or urticaria EXAM Physical Exam Const Vital Signs: 02/06/22 09:12 02/06/22 09:28 02/06/22 09:31 Temperature 96.5 F L Temperature Source Tympanic Pulse Rate 115 H 108 H Respiratory Rate 24 H 21 H Respiratory Effort Normal Non-Labored Respiratory Pattern Normal Blood Pressure 107/49 L 103/49 L Blood Pressure Mean 68 67 Pulse Ox 92 93 Oxygen Delivery Method Room Air Room Air Positive well nourished and well developed General Appearance ED: well developed HEENT Reports normocephalic, head/scalp atraumatic, TM's clear and moist mucous membranes Negative for tenderness Tympanic Membrane ED: Yes TM's clear Eyes PERRL and EOMs intact bilaterally Neck no lymphadenopathy, supple and no JVD Resp normal respiratory effort and clear to auscultation bilaterally Cardio regular rate and no murmurs Rate: tachycardic GI normal to inspection, nondistended, normoactive bowel sounds and non-tender Palpation: soft Back/Spine no CVA tenderness and normal ROM Extremity normal to inspection General Extremety ED: Negative for edema General Extremity: Negative for edema Neuro CN's II-XII intact bilaterally Neuro Narrative: oriented x 3. confused with basic questions like what type of diabetic are you Sensorium / Orientation: alert Motor Exam: strength 5/5 throughout Psych mental status grossly normal Mood & Affect: Negative for depressed or tearful Skin no rashes or lesions noted and no wounds MDM MDM MDM Narrative Medical decision making narrative: Patient's glucose 523 with a slightly elevated creatinine of 1.69 BUN of 40. Anion gap of 12 with a CO2 of 22 small acetone in blood. Patient received a liter of fluids her blood sugar is down to 446. A second liter of fluids was ordered as well as 10 units of insulin IV. I am concerned for the patient's safety. Her significant other seems to be really struggling with the diabetes care though he is doing the best he can. She had EMS her house last night for hypoglycemia and today is on the hyperglycemic side. Spoke with case management. I will speak with the hospitalist as we may need to revisit assisted living. Lab Data Attestation: I reviewed the patient's lab results. Labs: Laboratory Results - last 24 hr 02/06/22 02/06/22 02/06/22 09:55 09:55 09:55 WBC 9.9 RBC 4.34 Hgb 12.2 Hct 38.4 MCV 88.5 MCH 28.1 MCHC 31.8 L RDW Std Deviation 51.8 H RDW Coeff of Kristyn 15.8 H Plt Count 294 MPV 11.4 Immature Gran % (Auto) 0.800 Neut % (Auto) 87.3 H Lymph % (Auto) 4.0 L [place] % (Auto) 7.4 Eos % (Auto) 0.1 Baso % (Auto) 0.4 Absolute Neuts (auto) 8.7 H Absolute Lymphs (auto) 0.40 L Nucleated RBC % 0 Differential Comment SCANNED Sodium 133 L Potassium 4.7 Chloride 99 Carbon Dioxide 22.0 Anion Gap 12 BUN 40 H Creatinine 1.69 H Estim Creat Clear Calc 23.69 Est GFR (MDRD) Af Amer 38 L Est GFR (MDRD) Non-Af 31 L BUN/Creatinine Ratio 23.7 H Glucose 523 H* Calcium 8.9 Magnesium 2.3 Total Bilirubin 0.50 AST 15 ALT 25 Alkaline Phosphatase 99 Total Protein 5.6 L Albumin 2.6 L Globulin 3.0 Albumin/Globulin Ratio 0.9 Acetone Level SMALL H POC Glucose 02/06/22 10:37 WBC RBC Hgb Hct MCV MCH MCHC RDW Std Deviation RDW Coeff of Kristyn Plt Count MPV Immature Gran % (Auto) Neut % (Auto) Lymph % (Auto) [place] % (Auto) Eos % (Auto) Baso % (Auto) Absolute Neuts (auto) Absolute Lymphs (auto) Nucleated RBC % Differential Comment Sodium Potassium Chloride Carbon Dioxide Anion Gap BUN Creatinine Estim Creat Clear Calc Est GFR (MDRD) Af Amer Est GFR (MDRD) Non-Af BUN/Creatinine Ratio Glucose Calcium Magnesium Total Bilirubin AST ALT Alkaline Phosphatase Total Protein Albumin Globulin Albumin/Globulin Ratio Acetone Level POC Glucose 446 H EKG Initial EKG: Attestation: I personally reviewed and interpreted this EKG as follows: Comments: Normal sinus rhythm with a ventricular rate of 96 bpm. No concerning features of ACS or ectopy noted. Prior EKG tracings: available for review (No significant change from EKG dated 27 January 2022) Critical Care Time Critical Care Time: Yes Critical care time (excluding procedures): 30-74 minutes (35 minutes), Including time spent:, Discussing w/Patient &/or Family/Brim Stretcher, Discussing w/Consultants, Arranging Admission or Transfer and Performing Direct Patient Care at Bedside Discharge Plan Dx/Rx/DC Orders Clinical Impression: THANIA (acute kidney injury), Hyperglycemia due to diabetes mellitus, Encephalopathy acute Disposition Disposition: Acute Care Hospital [facility]
[2022-02-06] MEDS: 0.9% Normal Saline 1,000 ML 999 ML IV ×2 (09:39→19:01)
[2022-02-06 10:07] LABS: Absolute Neutrophil Count 8.7 X10^3/uL (2.0-7.7); Basophil# 0.04 X10^3/uL; Basophil% 0.4 % (0-1); Eosinophil# 0.01 X10^3/uL; Eosinophils% 0.1 % (0-5); Hematocrit 38.4 % (37-47); Hemoglobin 12.2 g/dL (12.0-15.0); Mean Corp Hgb Conc 31.8 g/dL (32-36); Mean Corpuscular Hgb 28.1 pg (27.0-32.0); Mean Corpuscular Volume 88.5 fL (81-99); Mean Platelet Vol. 11.4 fl (6.2-12.0); Monocyte# 0.73 X10^3/uL; Monocyte% 7.4 % (0-10); NRBC Flagged by Analyzer 0 % (0-5); Neutrophil # 8.65 X10^3/uL (2.7-7.7); Neutrophil % 87.3 % (47-70); POSITIVE DIFFERENTIAL YES; Platelet Count 294 K/mm3 (150-450); RBC Distribution Width CV 15.8 % (11.6-14.6); RBC Distribution Width SD 51.8 fl (35.1-43.9); Red Blood Count 4.34 M/mm3 (4.2-5.4); White Blood Count 9.9 K/mm3 (4.4-11.0)
[2022-02-06 10:12] LABS: Differential Indicated SCAN CRITERIA MET
--- NOTE | 2022-02-06 10:27 | NURSING ---
glucose of 523 received from lab. notified
[2022-02-06 10:28] LABS: ALB/GLOB Ratio 0.9 RATIO (0.9-2.4); AST(SGOT) 15 U/L (15-37); Alanine Aminotransfer ALT/SGPT 25 U/L (13-56); Albumin, Serum 2.6 g/dL (3.2-5.0); Alkaline Phosphatase 99 U/L (45-117); Anion Gap 12 (5-15); BUN 40 mg/dL (7-18); BUN/Creat Ratio 23.7 RATIO (10-20); Calcium,Total 8.9 mg/dL (8.5-10.1); Chloride 99 mmol/L (98-107); Creatinine, Serum 1.69 mg/dL (0.55-1.02); EST Glomerular Filtration Rate 31 mL/min (>60); Est Glom Filt Rate - Afr Amer 38 mL/min (>60); Estimated Creatinine Clearance 23.69 ml/min; Glucose 523 mg/dL (74-106); Magnesium 2.3 mg/dL (1.6-2.6); Potassium 4.7 mmol/L (3.5-5.1); Protein, Total 5.6 g/dL (6.4-8.2); Sodium Level 133 mmol/L (136-145)
[2022-02-06] MEDS: 0.9% Normal Saline 1,000 ML 1000 ML IV (10:38)
[2022-02-06 10:40] LABS: Bedside Glucose 446 mg/dL (74-106)
[2022-02-06 10:44] LABS: Differential Comment SCANNED
[2022-02-06 11:08] LABS: Mucous, Urine 0 SEEN /hpf (<or=2+); Red Blood Cells-Urine 0 SEEN /hpf (0-5)
[2022-02-06 11:28] LABS: Color, Urine Yellow (Yellow); Glucose, Dipstick 1000 mg/dl (Normal); Ketone-Dipstick 50 mg/dl (Negative); Leukocyte Esterase-Dipstick Negative /ul (Negative); Nitrite-Dipstick Positive (Negative); Occult Blood-Urine Negative /ul (Negative); Protein-Dipstick Negative (Negative); Specific Gravity, Urine 1.015 (1.002-1.030); Urine Bilirubin Dipstick Negative (Negative); Urine Clarity Clear (Clear); Urine Urobilinogen Normal (Normal)
[2022-02-06 11:39] LABS: Bacteria 2+ /hpf (None Seen); Squamous Epithelial Cells - UA 0-5 SEEN /hpf (5-10); White Blood Cells 0 SEEN /hpf (0-5)
[2022-02-06 11:40] LABS: Anion Gap 8 (5-15); BUN 38 mg/dL (7-18); BUN/Creat Ratio 25.2 RATIO (10-20); Calcium,Total 8.7 mg/dL (8.5-10.1); Chloride 102 mmol/L (98-107); Creatinine, Serum 1.51 mg/dL (0.55-1.02); EST Glomerular Filtration Rate 35 mL/min (>60); Est Glom Filt Rate - Afr Amer 43 mL/min (>60); Estimated Creatinine Clearance 26.51 ml/min; Glucose 401 mg/dL (74-106); Potassium 4.1 mmol/L (3.5-5.1); Sodium Level 135 mmol/L (136-145)
--- NOTE | 2022-02-06 13:05 | PCM.HP.STD ---
HPI - General General Date of Admission: 02/06/22 Date of Service: 02/06/22 Chief Complaint: Hyperglycemia HPI Narrative LIVIER SMALLS, is a 76 F who presented to the emergency department at [facility] on 02/06/2022 with hyperglycemia. The patient is a known diabetic and had previously been on an insulin pump however this has been discontinued secondary to questionable malfunction and she is now on subcutaneous insulin. She had a recent admission here from 01/27/2022 until 01/30/2022 at which time she was in DKA secondary to hyperglycemia. It appears it was this admission when they discontinued the insulin pump. She has not yet followed up with endocrinology. She is a very poor historian and I obtained most of her history from the ER physician and nurse who have been at the bedside. She evidently did have a significant other at the bedside however he has gone home to let the dogs out. She has no other further complaints subjectively. In the emergency department vital signs showed a temp of 97 9, heart rate of 102, blood pressure 118/59 respirations 17-24 and oxygen saturations were 92 to 98% on room air. CBC was unremarkable. Her chemistry showed a pseudohyponatremia with a sodium of 135 however her blood sugar was greater than 500. Electrolytes were normal. BUN was elevated at 40 and serum creatinine was 1.69. Her baseline serum creatinine runs from 0.8-1.0. Her magnesium level and LFTs were within normal limits. Her carbon dioxide was 25 and her anion gap was 12. EKG shows sinus tachycardia with heart rate in the low 100s, no ST wave changes consistent with ischemia were noted. A UA was obtained and she had significant glucosuria and 50 ketones and was positive for nitrites however she was negative for leukoesterase WBCs and had 2+ bacteria. Small ketones were noted. In the emergency department she was treated with 2 L of IV fluids and given 10 units of subcu insulin. Repeat BMP was drawn prior to admission and showed improvement in serum creatinine and a decrease in her serum blood sugars. [facility] Medical History COPD (chronic obstructive pulmonary disease) Diabetes Emphysema lung HLD (hyperlipidemia) HTN (hypertension) Hypothyroidism Osteopenia Pulmonary embolism, bilateral Smoker Home Medications albuterol sulfate 90 mcg/actuation aerosol inhaler 1 puff INHALATION ONCE PRN 09/08/21 [History Last Taken 10/05/21] amlodipine 5 mg-benazepril 10 mg capsule 1 cap PO DAILY 09/08/21 [History Last Taken 02/06/22] levothyroxine 112 mcg tablet 112 mcg PO DAILY 09/08/21 [History Last Taken 02/06/22] metoprolol succinate 50 mg tablet,extended release 24 hr 50 mg PO DAILY 09/08/21 [History Last Taken 02/06/22] oxybutynin chloride 5 mg tablet 10 mg PO DAILY tab 09/08/21 [History Last Taken 02/06/22] Lantus U-100 Insulin 20 unit SUBCUT QPM 30 Days #3 ml 01/30/22 [Rx Last Taken 02/05/22] insulin lispro [Humalog KwikPen Insulin] 13 unit SUBCUT TIDAC #1 ml 01/30/22 [Rx Last Taken 02/05/22] insulin lispro [Humalog KwikPen Insulin] See Protocol SUBCUT ACHS #0 ml 01/30/22 [Rx Last Taken Unknown] paroxetine mesylate 20 mg PO DAILY #30 tab 01/30/22 [Rx Last Taken 02/06/22] potassium chloride [Klor-Con M20] 40 meq PO DAILYCM #6 tab 01/30/22 [Rx Last Taken 02/06/22] potassium, sodium phosphates 1 packet PO TID #6 ea 01/30/22 [Rx Last Taken 02/06/22] simvastatin 10 mg PO DAILY #30 tab 01/31/22 [Rx Last Taken 02/06/22] Allergy/AdvReac Type Severity Reaction Status Date / Time ciprofloxacin [From Cipro] Allergy Intermediate hives Verified 02/06/22 09:28 Sulfa (Sulfonamide Allergy Intermediate hives Verified 02/06/22 09:28 Antibiotics) Family History Father Diabetes Respiratory disease Surgical History S/P insertion of insulin pump Social History (Updated 02/06/22 @ 13:[address] 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 Smoking Status: Current every day smoker tobacco type: cigarettes alcohol intake: current alcohol intake frequency: a few times a month substance use type: does not use ROS Constitutional Constitutional: Reports malaise; Denies anorexia, change in weight, chills, fatigue, fever(s), night sweats, weakness or other Eyes Eyes: Denies blurry vision, change in eye color, change in vision, discharge from eye(s), double vision, erythema, eye pain, loss of vision or other ENT HEENT: Denies abnormal hearing, dysphagia, ear pain, epistaxis, headache(s), hearing loss, nasal congestion, nasal discharge, post nasal drip, sinus pressure, sore throat or other Cardiovascular Cardiovascular: Denies chest pain, claudication, dyspnea on exertion, edema, lightheadedness, orthopnea, palpitations, paroxysmal nocturnal dyspnea, rapid heart rate, syncope or other Respiratory/Chest Respiratory/Chest: Denies cough, dyspnea, excessive phlegm production, hemoptysis, productive cough, shortness of breath at rest, shortness of breath with exertion, wheezing or other Gastrointestinal Gastrointestinal: Denies abdominal pain, coffee ground emesis, constipation, diarrhea, dyspepsia, hematemesis, hematochezia, loose stools, melena, nausea, vomiting or other Genitourinary Genitourinary: Denies burning urination, difficulty urinating, dysuria, hematuria, nocturia, urinary frequency, urinary hesitancy, urinary incontinence, urinary urgency or other Musculoskeletal Musculoskeletal: Denies arthralgias, back pain, joint pain, joint stiffness, joint swelling, myalgias, neck pain or other Neurologic Neurologic: Denies abnormal gait, abnormal speech, confusion, disequilibrium, dizziness, focal weakness, headache(s), numbness, paresthesias, seizure-like activity, seizures, syncope, tingling, tremor(s) or other Psychiatric Psychiatric: Denies anxiety, depression, homicidal ideation, suicidal ideation or other Endocrine Endocrinology: Reports other; Denies change in body appearance, cold intolerance, excessive sweating, heat intolerance, polydipsia or polyuria Hematologic/Lymphatic Hematologic/Lymphatic: Denies anemia, easy bleeding, easy bruising, lymphadenopathy or other Allergic/Immunologic Allergic/Immunologic: Denies rhinitis, hives, eczemia, asthma or other Vital Signs Vital Signs Vital Signs: 02/06/22 09:12 02/06/22 09:28 02/06/22 09:31 Temperature 96.5 F L Temperature Source Tympanic Pulse Rate 115 H 108 H Respiratory Rate 24 H 21 H Respiratory Effort Normal Non-Labored Respiratory Pattern Normal Blood Pressure 107/49 L 103/49 L Blood Pressure Mean 68 67 Blood Pressure Source Blood Pressure Position Blood Pressure Location Pulse Ox 92 93 Oxygen Delivery Method Room Air Room Air 02/06/22 11:20 02/06/22 12:17 02/06/22 13:01 Temperature 97.9 F 98.5 F Temperature Source Temporal Oral Pulse Rate 80 102 H 105 H Respiratory Rate 16 17 16 Respiratory Effort Respiratory Pattern Blood Pressure 112/50 L 118/59 L 112/49 L Blood Pressure Mean 70 78 70 Blood Pressure Source Monitor Blood Pressure Position Semi-Fowlers Blood Pressure Location Left Arm Pulse Ox 98 93 92 Oxygen Delivery Method Room Air Room Air Weight Weight: 67.132 kg Body Mass Index (BMI) 25.0 Physical Exam Const alert, no apparent distress, average body habitus, healthy appearing and well nourished Constitutional Narrative: Elderly white female sitting up in bed patient is oriented to place, self, initially told me it was February and then corrected to January when question, originally told me it was 2019 but did correct to 2021 and questioned, when asked to the christian science nurse was she told me that idiot she was unable to come up with Silvestre ELDRIDGE normocephalic, head/scalp atraumatic, hearing grossly normal bilaterally and moist oral mucous membranes HEENT Narrative: Moist mucous membranes, Mallampati 2, no thrush Eyes PERRL, EOMs intact bilaterally and conjunctivae normal Eyes Narrative: No scleral icterus Neck no lymphadenopathy, supple and no JVD Neck Narrative: Trachea midline, no thyroid enlargement Resp normal respiratory effort, no retractions, no use of accessory muscles and clear to auscultation bilaterally Auscultation: Negative for crackles, rales, rhonchi or wheezes Cardio regular rhythm, S1 normal heart sound, S2 normal heart sound, no murmurs, no rub, no gallops, no clicks and no JVD Cardio Narrative: Mildly tachycardic with heart rates in the low 100s GI normal to inspection, nondistended, normoactive bowel sounds, soft to palpation, non-tender and non-distended; Negative for hepatosplenomegaly Extremity no clubbing, cyanosis or edema Peripheral Pulses: Yes pulses 2+ throughout Skin no rashes or lesions noted, no wounds, skin turgor normal, no jaundice, no petechiae and no mottling Neuro CN's II-XII intact bilaterally, moves all extremities and no focal motor deficits Neuro Narrative: Appears to have some memory deficits Sensorium / Orientation: awake, alert, oriented to person and oriented to place Speech: speech normal Motor Exam: strength 5/5 throughout Psych Psych Narrative: Affect is mildly flattened mood seems mildly depressed Results Lab / Micro Data Attestation: I reviewed the patient's lab results. Result Diagrams: 02/06/22 09:55 02/06/22 11:15 Labs: Laboratory Results - last 24 hr 02/06/22 09:55: WBC 9.9, RBC 4.34, Hgb 12.2, Hct 38.4, MCV 88.5, MCH 28.1, MCHC 31.8 L, RDW Std Deviation 51.8 H, RDW Coeff of Kristyn 15.8 H, Plt Count 294, MPV 11.4, Immature Gran % (Auto) 0.800, Neut % (Auto) 87.3 H, Lymph % (Auto) 4.0 L, [place] % (Auto) 7.4, Eos % (Auto) 0.1, Baso % (Auto) 0.4, Absolute Neuts (auto) 8.7 H, Absolute Lymphs (auto) 0.40 L, Nucleated RBC % 0, Differential Comment SCANNED 02/06/22 09:55: Sodium 133 L, Potassium 4.7, Chloride 99, Carbon Dioxide 22.0, Anion Gap 12, BUN 40 H, Creatinine 1.69 H, Estim Creat Clear Calc 23.69, Est GFR (MDRD) Af Amer 38 L, Est GFR (MDRD) Non-Af 31 L, BUN/Creatinine Ratio 23.7 H, Glucose 523 H*, Calcium 8.9, Magnesium 2.3, Total Bilirubin 0.50, AST 15, ALT 25, Alkaline Phosphatase 99, Total Protein 5.6 L, Albumin 2.6 L, Globulin 3.0, Albumin/Globulin Ratio 0.9 02/06/22 09:55: Acetone Level SMALL H 02/06/22 10:37: POC Glucose 446 H 02/06/22 11:05: Urine Color Yellow, Urine Clarity Clear, Urine pH 5.0, Ur Specific [place] 1.015, Urine Protein Negative, Urine Glucose (UA) 1000 H, Urine Ketones 50 H, Urine Occult Blood Negative, Urine Nitrite Positive H, Urine Bilirubin Negative, Urine Urobilinogen Normal, Ur Leukocyte Esterase Negative, Urine RBC 0 SEEN, Urine WBC 0 SEEN, Ur Squamous Epith Cells 0-5 SEEN, Urine Bacteria 2+, Urine Mucus 0 SEEN 02/06/22 11:15: Sodium 135 L, Potassium 4.1, Chloride 102, Carbon Dioxide 25.0, Anion Gap 8, BUN 38 H, Creatinine 1.51 H, Estim Creat Clear Calc 26.51, Est GFR (MDRD) Af Amer 43 L, Est GFR (MDRD) Non-Af 35 L, BUN/Creatinine Ratio 25.2 H, Glucose 401 H, Calcium 8.7 Assessment & Plan Assessment/Plan (1) Hyperglycemia due to diabetes mellitus: (2) THANIA (acute kidney injury): (3) Bacteriuria: (4) Tachycardia: (5) Memory loss: PLAN: Hyperglycemia without DKA secondary to uncontrolled DM-2 -Patient has history of DM -Has been on insulin pump in the past however this was discontinued secondary to 2 admissions due to DKA with pump malfunctioning -Unclear if this is actual pump malfunctioning or related to memory issues -Patient reports has been taking her insulin as directed however had a low last night and her long-acting was held prior to bed -Read high this morning per her significant other -Currently is living with her boyfriend who has forest economist with diabetes prior to meeting the patient -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 impairment based on conversations that have been had with the significant other by the ER physician as well as based on my conversation with her -We will continue IV fluids with LR -2 L bolus were given the emergency department -Continue Lantus 20 units at at bedtime/lispro 13 units with meals 3 times daily -Continue SSI before meals and at bedtime -Needs outpatient follow-up with endocrinology -Recent admission for DKA however no DKA present at this admission THANIA secondary to dehydration -Baseline serum creatinine appears to be 0.8-1 -Current serum creatinine 1.69 -Suspect related to acute dehydration -We did obtain a repeat BMP prior to admission and serum creatinine is already down to 1.51 -Continue IV fluids with LR at 100 cc/h -Avoid nephrotoxins as able -I do not think we need to hold her CAROL inhibitor at this time Tachycardia -Likely related to acute dehydration -We will continue to monitor -Continue metoprolol -EKG shows sinus tachycardia without any ST-T wave changes Bacteriuria without pyuria -Patient asymptomatic -Suspect chronic bacteriuria -May also be related to acute dehydration Suspected memory loss -We will perform MMSE tomorrow after her hyperglycemia has improved -May need some assistance more than her significant other can currently provide or more education for him with regards to her diabetes -Case management consulted COPD -Recommend tobacco cessation as patient is still currently smoking -Continue home inhalers Hypothyroidism -Check TSH -Continue with thyroxine History of bilateral PE -Patient no longer on anticoagulation -Monitor clinically Urinary incontinence -Continue oxybutynin Hypertension -Continue amlodipine/BenzePrO -Continue metoprolol Hyperlipidemia -Continue simvastatin DVT prophylaxis -Lovenox subcu daily CODE STATUS -Full code Depression -Continue paroxetine Charges/Coding Visit Charges Inpatient E&M: 95052 Init Hosp L3
[2022-02-06] MEDS: Lactated Ringers 1,000 ML 100 ML IV ×2 (13:07→22:24)
[2022-02-06 13:16] LABS: Bedside Glucose 311 mg/dL (74-106)
[2022-02-06 17:11] LABS: Bedside Glucose > 500 mg/dL (74-106)
[2022-02-06] MEDS: Insulin Lispro 100 UNIT/ML INSULN.PEN 13 UNIT SC (17:13)
[2022-02-06] MEDS: Insulin Lispro 100 UNIT/ML INSULN.PEN SC ×2 (17:14→20:46)
[2022-02-06] MEDS: Insulin Lispro 100 UNIT/ML INSULN.PEN 6 UNIT SC (17:33)
[2022-02-06 18:45] LABS: Bedside Glucose > 500 mg/dL (74-106)
[2022-02-06] MEDS: Insulin Lispro 100 UNIT/ML INSULN.PEN 20 UNIT SC (19:04)
[2022-02-06 20:06] LABS: Bedside Glucose 435 mg/dL (74-106)
--- NOTE | 2022-02-06 21:10 | CM.ED ---
CHRISTAL Note CHRISTAL met with today. Dr. Velázquez plans to do a Mini MSE on patient on Tuesday. CHRISTAL will defer meeting with patient today due to patient's memory and recall issues. CHRISTAL called patient's signficant other, Dillon. Discussed with Dillon that patient may need a higher level of care. Dillon said that he wants to try it again at home caring for patient. CHRISTAL advised that taking care of individuals in patient's condition can be exhausting and Don concurred. Dillon said that patient's son, Andrea Zamudio is HCPOA but hasn't seen patient in a couple of years and is not close to patient. Andrea resides in [facility] and his phone is [phone]. Dillon said that patient has some dementia but it can be from the sugar. Dillon said that patient is not the same girl she was 6 months ago. Dillon said that he did good with her blood sugar for one week and felt he was understanding it when patient's blood sugar was 151 and then she went non responsive and her blood sugar was low. Plan: To be determined Sobeida ANGULO
[2022-02-06] MEDS: Insulin Glargine-YFGN 100 UNIT/ML Pen 20 UNIT SC (21:16)
[2022-02-06] MEDS: Atorvastatin Calcium 10 MG Tablet 5 MG PO (21:18)
[2022-02-06 21:30] LABS: Bedside Glucose 410 mg/dL (74-106)
[2022-02-07] VITALS (7 sets, daily range): BP systolic 102–150; BP diastolic 48–80; PULSE 74–94; RESP 16–18; TEMP 36.6–36.9; O2SAT 93–96
[2022-02-07 06:18] LABS: Absolute Lymphocyte Count 2.79 X10^3/uL (0.83-4.51); Absolute Neutrophil Count 4.1 X10^3/uL (2.0-7.7); Basophil% 1.3 % (0-1); Eosinophil# 0.18 X10^3/uL; Eosinophils% 2.3 % (0-5); Hematocrit 33.5 % (37-47); Hemoglobin 11.3 g/dL (12.0-15.0); Lymphocyte # 2.79 X10^3/ul (0.83-4.51); Mean Corp Hgb Conc 33.7 g/dL (32-36); Mean Corpuscular Volume 85.9 fL (81-99); Mean Platelet Vol. 11.1 fl (6.2-12.0); Monocyte# 0.77 X10^3/uL; Monocyte% 9.6 % (0-10); NRBC Flagged by Analyzer 0 % (0-5); Neutrophil % 51.3 % (47-70); Platelet Count 299 K/mm3 (150-450); RBC Distribution Width CV 16.2 % (11.6-14.6); RBC Distribution Width SD 50.6 fl (35.1-43.9)
[2022-02-07] MEDS: Levothyroxine 112 MCG Tablet PO (06:35)
[2022-02-07 07:05] LABS: ALB/GLOB Ratio 0.8 RATIO (0.9-2.4); AST(SGOT) 13 U/L (15-37); Alanine Aminotransfer ALT/SGPT 22 U/L (13-56); Albumin, Serum 2.3 g/dL (3.2-5.0); Alkaline Phosphatase 87 U/L (45-117); Anion Gap 5 (5-15); BUN 26 mg/dL (7-18); BUN/Creat Ratio 30.1 RATIO (10-20); Calcium,Total 8.1 mg/dL (8.5-10.1); Chloride 106 mmol/L (98-107); Creatinine, Serum 0.86 mg/dL (0.55-1.02); EST Glomerular Filtration Rate 67 mL/min (>60); Est Glom Filt Rate - Afr Amer 82 mL/min (>60); Estimated Creatinine Clearance 46.56 ml/min; Globulin 2.9 g/dL (2.2-4.2); Glucose 43 mg/dL (74-106); Magnesium 1.9 mg/dL (1.6-2.6); Phosphorus 2.9 mg/dL (2.5-4.9); Potassium 3.6 mmol/L (3.5-5.1); Protein, Total 5.2 g/dL (6.4-8.2); Sodium Level 137 mmol/L (136-145)
[2022-02-07] MEDS: Lactated Ringers 1,000 ML 100 ML IV (07:38)
[2022-02-07 08:25] LABS: Bedside Glucose 94 mg/dL (74-106)
[2022-02-07 08:55] LABS: Bedside Glucose 100 mg/dL (74-106)
[2022-02-07] MEDS: Insulin Lispro 100 UNIT/ML INSULN.PEN 13 UNIT SC ×3 (09:11→17:41)
[2022-02-07] MEDS: 0.9% Saline Lock 10 ML Syringe IV ×2 (09:29→23:22)
[2022-02-07] MEDS: Tolterodine Tartrate 4 MG CAP.SA PO (09:52)
[2022-02-07] MEDS: Paroxetine 20 MG Tablet PO (09:52)
--- NOTE | 2022-02-07 10:50 | PN.HOSP_ITS ---
Subjective Subjective Patient denies any complaints at this time. Indicates that we have not really done anything for her. I explained what findings we had on admission given her hyperglycemia that was greater than 500 and her acute kidney injury both of which have since resolved. She does not remember our conversation yesterday and then reasks what we have done for her prior to me leaving the room. I did complete a Mini-Mental status exam on her today along with a clock drawing. Evidently her significant other was somewhat argumentative with staff and complaining about her care stating we were not doing anything for her. There seems to have been some concerns about her memory previously and I have continued concerns with this as well. Objective Data Objective Data Vital Signs: Vital Signs Temp Pulse Resp BP Pulse Ox 98.4 F 94 16 102/48 L 93 02/07/22 09:37 02/07/22 09:37 02/07/22 09:37 02/07/22 09:37 02/07/22 09:37 Oxygen Delivery Method Room Air Weight: 67.132 kg Body Mass Index (BMI) 25.0 Intake & Output: Intake and Output for Last 24 Hours 02/05/22 02/06/22 02/07/22 23:59 23:59 23:59 Intake Total 4378.33 / 4378.33 1151.66 / 1151.66 Balance 4378.33 / 4378.33 1151.66 / 1151.66 Lab / Micro Data Result Diagrams: 02/07/22 06:05 02/07/22 06:05 Labs: Laboratory Results - last 24 hr 02/06/22 11:05: Urine Color Yellow, Urine Clarity Clear, Urine pH 5.0, Ur Specific [place] 1.015, Urine Protein Negative, Urine Glucose (UA) 1000 H, Urine Ketones 50 H, Urine Occult Blood Negative, Urine Nitrite Positive H, Urine Bilirubin Negative, Urine Urobilinogen Normal, Ur Leukocyte Esterase Negative, Urine RBC 0 SEEN, Urine WBC 0 SEEN, Ur Squamous Epith Cells 0-5 SEEN, Urine Bacteria 2+, Urine Mucus 0 SEEN 02/06/22 11:15: Sodium 135 L, Potassium 4.1, Chloride 102, Carbon Dioxide 25.0, Anion Gap 8, BUN 38 H, Creatinine 1.51 H, Estim Creat Clear Calc 26.51, Est GFR (MDRD) Af Amer 43 L, Est GFR (MDRD) Non-Af 35 L, BUN/Creatinine Ratio 25.2 H, Glucose 401 H, Calcium 8.7 02/06/22 13:10: POC Glucose 311 H 02/06/22 17:04: POC Glucose > 500 H* 02/06/22 18:34: POC Glucose > 500 H* 02/06/22 20:01: POC Glucose 435 H 02/06/22 21:15: POC Glucose 410 H 02/07/22 06:05: WBC 8.0, RBC 3.90 L, Hgb 11.3 L, Hct 33.5 L, MCV 85.9, MCH 29.0, MCHC 33.7 D, RDW Std Deviation 50.6 H, RDW Coeff of Kristyn 16.2 H, Plt Count 299, MPV 11.1, Immature Gran % (Auto) 0.500, Neut % (Auto) 51.3, Lymph % (Auto) 35.0, [place] % (Auto) 9.6, Eos % (Auto) 2.3, Baso % (Auto) 1.3 H, Absolute Neuts (auto) 4.1, Absolute Lymphs (auto) 2.79, Nucleated RBC % 0 02/07/22 06:05: Sodium 137, Potassium 3.6, Chloride 106, Carbon Dioxide 26.0, Anion Gap 5, BUN 26 H, Creatinine 0.86, Estim Creat Clear Calc 46.56, Est GFR (MDRD) Af Amer 82, Est GFR (MDRD) Non-Af 67, BUN/Creatinine Ratio 30.1 H, Glucose 43 L*, Calcium 8.1 L, Phosphorus 2.9, Magnesium 1.9, Total Bilirubin 0.60, AST 13 L, ALT 22, Alkaline Phosphatase 87, Total Protein 5.2 L, Albumin 2.3 L, Globulin 2.9, Albumin/Globulin Ratio 0.8 L 02/07/22 08:19: POC Glucose 94 02/07/22 08:50: POC Glucose 100 Micro: Microbiology 02/06/22 20:40 Nasal Secretion SARS-CoV-2 Antigen (Rapid) - Final Physical Exam Const alert and oriented x3 Constitutional Narrative: Older white female sitting up in bed, watching television, appears comfortable and nontoxic, calm and agreeable to exam Exam Limitations: other limitations HEENT head/scalp atraumatic, moist oral mucous membranes and oropharynx normal HEENT Narrative: Mallampati 2, no thrush Head and Scalp: normocephalic Eyes PERRL, EOMs intact bilaterally and conjunctivae normal Eyes Narrative: No scleral icterus Neck no lymphadenopathy, supple and no JVD Neck Narrative: Trachea midline, no thyroid enlargement Resp normal respiratory effort, no retractions, no use of accessory muscles and clear to auscultation bilaterally Resp Narrative: Diffusely diminished but clear Auscultation: Negative for crackles, rales, rhonchi or wheezes Cardio regular rate, regular rhythm, S1 normal heart sound, S2 normal heart sound, no murmurs, no rub, no gallops, no clicks and no JVD Cardio Narrative: Mildly tachycardic with heart rates in the low 100s GI normal to inspection, nondistended, normoactive bowel sounds, soft to palpation, non-tender and non-distended; Negative for hepatosplenomegaly Extremity no clubbing, cyanosis or edema Peripheral Pulses: Yes pulses 2+ throughout Skin no rashes or lesions noted, no wounds, skin turgor normal, no jaundice, no petechiae and no mottling Neuro oriented x3, CN's II-XII intact bilaterally, moves all extremities and no focal motor deficits Neuro Narrative: Appears to have some memory deficits Sensorium / Orientation: awake and alert Speech: speech normal Motor Exam: strength 5/5 throughout Psych affect normal Psych Narrative: Mini-Mental status exam performed patient scored 23 out of 30 losing 1 point for not knowing the date and losing 5 points secondary to the inability to perform serial sevens or spell the word world backward correctly. We also did a clock drawing.I asked her to make the clock read to 30. She katy a seneca and appropriately placed a 12 1 and 2 and then placed the hour hand facing the 2 with the minute hand pointing to a 30 she katy at the area where a 6 would belong. Assessment & Plan Assessment/Plan (1) Memory loss: (2) Tachycardia: (3) Hyperglycemia due to diabetes mellitus: (4) THANIA (acute kidney injury): (5) Bacteriuria: PLAN: Hyperglycemia without DKA secondary to uncontrolled DM-1 vs 2 -Patient has history of DM -Has been on insulin pump in the past however this was discontinued secondary to 2 admissions due to DKA with pump malfunctioning -Unclear if this is actual pump malfunctioning or related to memory issues -Patient reports has been taking her insulin as directed however had a low last night and her long-acting was held prior to bed -Read high this morning per her significant other -Currently is living with her boyfriend who has economic research analyst with diabetes prior to meeting the patient -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 Ceja's office -Dietitian has been consulted for diabetes education with regards to diet to be provided to the patient and her significant other -Her significant other has very limited experience with diabetes -Patient and significant other would benefit from outpatient diabetes clinic -Will need home health care at discharge THANIA secondary to dehydration -Resolved -Baseline serum creatinine appears to be 0.8-1 -Serum creatinine 1.69 on admission -Current serum creatinine is 0.86 -Continue IV fluids Tachycardia -Resolved Bacteriuria without pyuria -Patient asymptomatic -Suspect chronic bacteriuria -May also be related to acute dehydration Suspected memory loss -MMSE was 23 out of 30 -Clock drawing was inaccurate with a seneca having a 12 1 and 2 at the appropriate places but no other numbers on the clock other than a 30 where the 6 would belong--> our hand was pointing at the 2 with the minute hand pointing at the 30 -Extensive discussion with her son with regards to my concerns -TSH was obtained at her last hospitalization and noted to be 54.3 but her free T4 is normal so doubt this has any impact memory issues -[facility] offices -Case management consulted COPD -Recommend tobacco cessation as patient is still currently smoking -Continue home inhalers Hypothyroidism -TSH performed on 01/29/2022 and found to be markedly elevated at 57 however free T4 was assessed and found to be normal at 0.76 -Continue levothyroxine -Patient needs endocrine follow-up History of bilateral PE -Patient no longer on anticoagulation -Monitor clinically -Lovenox initiated Urinary incontinence -Continue oxybutynin Hypertension -Continue amlodipine/Benzepril -Continue metoprolol Hyperlipidemia -Continue simvastatin Depression -Continue paroxetine DVT prophylaxis -Lovenox subcu daily CODE STATUS -Full code Extensive discussion with patient's son, Andrea ([phone]) who is the DPOA. He lives in [facility] and states he has not seen his mom since she moved to [place] however did encourage the move not to happen. He states he has not really noticed any overt signs of memory issues however he does not talk to her all that frequently. He does recall some instances where she has stated she has not talked to him recently and he looks at his phone logs and they have talked not that long ago. I discussed my concerns with regard to her current living situation and her Mini-Mental exam/clock drawing. He stated that he would talk to both his mom and her significant other and felt that he would likely need more involvement. He was agreeable to her having follow-up at the geriatric clinic in [place] to be further assessed. This clinic is associated with [facility]. I did express my concerns with her recurrent admissions with regards to her hyperglycemia and other medical issues Charges/Coding Visit Charges Inpatient E&M: 61280 Subs Hosp L3
[2022-02-07 11:45] LABS: Bedside Glucose 160 mg/dL (74-106)
[2022-02-07] MEDS: Insulin Lispro 100 UNIT/ML INSULN.PEN SC (12:50)
[2022-02-07] MEDS: Enoxaparin 40 MG/0.4 ML Syringe SC (12:55)
[2022-02-07] MEDS: amLODIPine 5 MG Tablet PO (13:02)
[2022-02-07] MEDS: Lisinopril 10 MG Tablet PO (13:03)
[2022-02-07] MEDS: Metoprolol(XL)Succ 50 MG Tablet PO (13:03)
[2022-02-07] MEDS: Magnesium Hydroxide 30 ML UDC 15 ML PO (14:05)
[2022-02-07 16:51] LABS: Bedside Glucose 80 mg/dL (74-106)
[2022-02-07 22:26] LABS: Glucose 216 mg/dL (74-106)
[2022-02-07] MEDS: Dextrose 50%-Water 25 GM/50 ML DISP.SYRIN IV (23:22)
[2022-02-07] MEDS: Atorvastatin Calcium 10 MG Tablet 5 MG PO (23:23)
[2022-02-07 23:25] LABS: Bedside Glucose 213 mg/dL (74-106)
[2022-02-08] VITALS (8 sets, daily range): BP systolic 118–140; BP diastolic 56–74; PULSE 71–90; RESP 18; TEMP 36.3–37; O2SAT 85–95
[2022-02-08 01:51] LABS: Bedside Glucose 250 mg/dL (74-106)
[2022-02-08] MEDS: Levothyroxine 112 MCG Tablet PO (06:08)
[2022-02-08 06:16] LABS: Bedside Glucose 352 mg/dL (74-106)
[2022-02-08 06:21] LABS: Anion Gap 4 (5-15); BUN 22 mg/dL (7-18); BUN/Creat Ratio 23.7 RATIO (10-20); Calcium,Total 8.1 mg/dL (8.5-10.1); Chloride 102 mmol/L (98-107); Creatinine, Serum 0.93 mg/dL (0.55-1.02); EST Glomerular Filtration Rate 62 mL/min (>60); Est Glom Filt Rate - Afr Amer 75 mL/min (>60); Estimated Creatinine Clearance 43.05 ml/min; Glucose 322 mg/dL (74-106); Potassium 4.5 mmol/L (3.5-5.1); Sodium Level 133 mmol/L (136-145)
[2022-02-08 08:01] LABS: Bedside Glucose 345 mg/dL (74-106)
[2022-02-08 08:31] LABS: Bedside Glucose > 500 mg/dL (74-106)
[2022-02-08 08:31] LABS: Free T3 1.4 pg/mL (2.18-3.98)
[2022-02-08 08:35] LABS: Bedside Glucose 52 mg/dL (74-106)
[2022-02-08 08:38] LABS: Bedside Glucose 95 mg/dL (74-106)
[2022-02-08 08:38] LABS: Bedside Glucose 27 mg/dL (74-106)
[2022-02-08 08:38] LABS: Bedside Glucose 58 mg/dL (74-106)
[2022-02-08] MEDS: Insulin Lispro 100 UNIT/ML INSULN.PEN SC ×2 (08:38→16:52)
[2022-02-08] MEDS: Insulin Lispro 100 UNIT/ML INSULN.PEN 13 UNIT SC ×2 (08:38→16:54)
[2022-02-08] MEDS: Enoxaparin 40 MG/0.4 ML Syringe SC (08:51)
[2022-02-08] MEDS: Metoprolol(XL)Succ 50 MG Tablet PO (08:52)
[2022-02-08] MEDS: amLODIPine 5 MG Tablet PO (08:52)
[2022-02-08] MEDS: Tolterodine Tartrate 4 MG CAP.SA PO (08:52)
[2022-02-08] MEDS: Lisinopril 10 MG Tablet PO (08:52)
[2022-02-08] MEDS: Paroxetine 20 MG Tablet PO (08:52)
[2022-02-08 10:28] LABS: Cholesterol 179 mg/dL (200); High Density Lipoprotein 58 mg/dL; Triglycerides 82 mg/dL; Very Low Density Lipoprotein 16 mg/dL (5-40)
--- NOTE | 2022-02-08 11:15 | CASEMGMT ---
Addendum entered by Robyn Lopez 02/08/22 14:45: [facility] she states there is a 4week waiting list to be called for an appt. States she will call pt to schedule when she comes up on waiting list. Addendum entered by Robyn Lopez 02/08/22 12:14: TC to Dania for [facility], spoke with Jess. She obtained pt info and states [facility] has their own scheduling. She sent a high priority message to them to call this RN CM back for appt. Addendum entered by Robyn Lopez 02/08/22 11:58: Received tc back from Rhea at 's office. Confirmed that pt has an appt on at 7:15am and she added a pop up so a referral will be made to at that appt. She states the paroxetine was not addressed as will discuss with patient at appt. Original Note: RN LOVE Readmission Note Previous Admission: 01/27/22-01/30/22 Diagnosis: DKA DC Disposition: Home with [facility] Current Admission Current Diagnosis: Hyperglycemia/THANIA Pt presented to ER from home with elevated blood sugar. RN LOVE in to pt room, pt sig other at bedside. Pt agreeable to discussing care with him present. Pt designates sig other as contact to discuss dc plans with. Pt is checking blood sugar 3-4x/day. States they had a low blood sugar and the squad was called. Pt sig other reports blood sugar at that time was 34 and it came up to the 150's then pt did not take her lantus that night and the next day the meter read high. Pt sig other states they need a new meter. Educated him on that the meter is not faulty but once it gets so high that is what it reads. They need education as evidenced by the omission of lantus. Pt and sig other report having enough supplies for BGM as well as insulin. Sig other states he is present during [facility] visits as pt memory is not as good. Encouraged him to continue this for education as well. Pt has been living with sig other for the last 2 weeks and was previously living on her own. Pt states she did get a cane and has been using it. She states she will not get a walker to use. Pt does not know if changed her paroxetine to a formulary med (noted in RN note from previous stay). States they have an appt with on . They also state is setting pt up with as this is needed to be done this way for a referral for her insurance. Pt does have an insulin pump but does not use. Pt reports taking meds as prescribed other than the insulin as noted above. Pt is agreeable to going back home with the [facility] although states she doesn't feel she needs it. Sig other states she needs it to get up off your can. States pt does not move other than when therapy there. He speaks of SNF and pt denies need for and shakes her head no. 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 Pt sig other states he will try again and take pt home but if she returns, another plan will have to be taken. hospitalist spoke with this RN CM and would like pt set up with [facility] [place] through [facility]. Pt is agreeable to RN CM making this appt. DC PLAN: Home with [facility] resuming, appt with on with referral to . Appt with [facility] to be made. TC to 's office to confirm pt appts, check on paroxetine and referral to . Will await returned call. TC to Beatriz at [facility], left message to see how pt doing at home and ask for DM education with pt and cg.
[2022-02-08 11:51] LABS: Bedside Glucose > 500 mg/dL (74-106)
--- NOTE | 2022-02-08 11:53 | PN.HOSP_ITS ---
Subjective Subjective Patient seen and examined. She had no active complaints today and had an uneventful night. Review of systems is otherwise negative. She was hypoglycemic overnight, and required D50 ampoule. Blood sugar this morning is 575. She says she has been taking her synthroid. However, her TSH has been gradually going up, to a peak of 54, whilst her free T4 has been going down and is now at the lower limit of normal of 0.76. Objective Data Objective Data Vital Signs: Vital Signs Temp Pulse Resp BP Pulse Ox 98.6 F 85 18 131/56 H 91 02/08/22 08:42 02/08/22 08:52 02/08/22 08:42 02/08/22 08:52 02/08/22 10:01 Oxygen Flow Rate (L/min) 2 Oxygen Delivery Method Nasal Cannula Weight: 147 lb 14.883 oz Body Mass Index (BMI) 25.0 Intake & Output: Intake and Output for Last 24 Hours 02/06/22 02/07/22 02/08/22 23:59 23:59 23:59 Intake Total 4378.33 / 4378.33 1901.66 / 1901.66 Balance 4378.33 / 4378.33 1901.66 / 1901.66 Lab / Micro Data Result Diagrams: 02/07/22 06:05 02/08/22 05:16 Labs: Laboratory Results - last 24 hr 02/06/22 09:20: POC Glucose > 500 H* 02/07/22 07:12: POC Glucose 52 L 02/07/22 07:16: POC Glucose 58 L 02/07/22 07:29: POC Glucose 95 02/07/22 16:46: POC Glucose 80 02/07/22 21:52: POC Glucose 27 L* 02/07/22 22:01: POC Glucose Cancelled 02/07/22 22:08: Glucose 216 H 02/07/22 22:17: POC Glucose 213 H 02/08/22 01:45: POC Glucose 250 H 02/08/22 05:16: Sodium 133 L, Potassium 4.5, Chloride 102, Carbon Dioxide 27.0, Anion Gap 4 L, BUN 22 H, Creatinine 0.93, Estim Creat Clear Calc 43.05, Est GFR (MDRD) Af Amer 75, Est GFR (MDRD) Non-Af 62, BUN/Creatinine Ratio 23.7 H, Glucose 322 H, Calcium 8.1 L 02/08/22 05:16: Free T3 pg/dL 1.4 L 02/08/22 05:16: Triglycerides 82, Cholesterol 179, LDL Cholesterol 105, VLDL Cholesterol 16, HDL Cholesterol 58 02/08/22 06:06: POC Glucose 352 H 02/08/22 07:42: POC Glucose 345 H 02/08/22 11:46: POC Glucose > 500 H* Micro: Microbiology 02/06/22 20:40 Nasal Secretion SARS-CoV-2 Antigen (Rapid) - Final Physical Exam Const alert, oriented x3 and no apparent distress Exam Limitations: no limitations HEENT head/scalp atraumatic, moist oral mucous membranes and oropharynx normal Head and Scalp: normocephalic Eyes PERRL and EOMs intact bilaterally Neck no lymphadenopathy, supple and no JVD Resp normal respiratory effort, no retractions, no use of accessory muscles and clear to auscultation bilaterally Cardio regular rate, regular rhythm, S1 normal heart sound, S2 normal heart sound and no murmurs GI normal to inspection, nondistended, normoactive bowel sounds, soft to palpation, non-tender and non-distended Extremity normal to inspection, full ROM and no clubbing, cyanosis or edema Peripheral Pulses: Yes pulses 2+ throughout Skin no rashes or lesions noted Neuro oriented x3, CN's II-XII intact bilaterally, moves all extremities and no focal motor deficits Sensorium / Orientation: awake and alert Psych affect normal Assessment & Plan Assessment/Plan (1) Hyperglycemia due to diabetes mellitus: (2) Hypothyroidism: PLAN: #HYperglycemia due to poorly controlled type 2 diabetes mellitus * says she has been taking her insulin regularly at home. * on lantus 20 units qhs. ISS. Accuchecks ACHS * On sliding scale. Also on short acting insulin 13 units 3 times daily * will need follow up with endocrinology on outpatient basis. * #Poorly controlled hypothyroidism * RH is 54, with free T4 of 0.76 * claims compliance with her synthroid * on synthroid 112mcg daily * will increase synthroid to 250mcg daily * #THANIA: resolved #Suspected memory impairment * Her MMSE was 23 out of 30. * In light of her poorly controlled hypothyroidism, it is difficult to see that she has clear-cut memory issues when the hypothyroidism could be a confounding factor. * Synthroid was increased as above. Patient referred to endocrinology. Will need follow-up with her PCP to see if her memory issues improved after her hypothyroidism improves. If it does not then this will be a pointed towards memory issues. * #History of bilateral PE: Not on anticoagulation anymore. #History of urinary incontinence: On oxybutynin #Hyperlipidemia: On statin #Hypertension: On amlodipine and benazepril as well as metoprolol #Depression: Paroxetine DVT prophylaxis: Lovenox Charges/Coding Visit Charges Inpatient E&M: 90295 Subs Hosp L2
[2022-02-08] MEDS: Insulin Lispro 100 UNIT/ML INSULN.PEN 18 UNIT SC (12:15)
[2022-02-08 13:35] LABS: Bedside Glucose > 500 mg/dL (74-106)
[2022-02-08] MEDS: Insulin Lispro 100 UNIT/ML INSULN.PEN 20 UNIT SC (14:11)
--- NOTE | 2022-02-08 15:11 | CHAPLAIN ---
Type of Pastoral Visit _x__ Initial Visit ___ Follow-up Visit ___ On-call Visit ___ General Patient Visit ___ Spiritual Assessment ___ Family Conference ___ Bereavement ___ Rapid Response ___ Code Blue ___ Other (describe below) Pastoral Care Referral From _x__ Patient ___ Family ___ Nurse ___ Physician ___ Coil Machine Operator ___ Police Officer Crime Prevention ___ Other (describe below) Sacrament/Intervention _x__ Active listening ___ Anointing ___ Jain ___ Bereavement ___ Communion ___ Hannah exploration ___ ___ Life review _x__ Prayer ___ Reconciliation ___ Sacrament of Sick _x__ Supportive presence ___ Wedding ___ Other (describe below) Pastoral Comments patient shares her frustrating feelings about needing to come several times for hospital stay and not able to have improvement; pt also presents with a pleasant and positive demeanor with hope for better things to come; pt has a SO person and his family for support; pt wants prayer support
[2022-02-08 15:30] LABS: Bedside Glucose 366 mg/dL (74-106)
[2022-02-08 17:01] LABS: Bedside Glucose 243 mg/dL (74-106)
[2022-02-08] MEDS: Atorvastatin Calcium 10 MG Tablet 5 MG PO (22:01)
--- NOTE | 2022-02-08 22:14 | NURSING ---
Notified by primary RN patient's blood glucose 32mg/dL. stat glucose ordered and pt was given orange juice and peanut butter and saltines. When this nurse entered room to recheck pt's blood glucose, pt refused to let this RN check her glucose level. She told this nurse that not enough time had passed yet. She had not completely finished her orange juice so advised pt to finish her juice which she did. Pt then refused to let laboratory staff draw her glucose level. Explained hospital policy to patient. Pt agreed to have her blood sugar rechecked after discussion. Pt expressed that she was upset at the management of her blood sugar levels and felt as though nothing was being accomplished and all staff were doing is poking her fingers multiple times. She called and talked to someone on the phone and expressed that she would prefer to just go home. After pt got off the phone and rationale was given for staff actions in regards to her blood sugar, she was agreeable to eating a bowl of cereal and letting staff recheck her at 2230hrs. She did not want any IV dextrose given. Above relayed to AISHA Adams. Pt stated she would discuss her concerns with her physician in the morning.
[2022-02-08 22:23] LABS: Glucose 65 mg/dL (74-106)
[2022-02-08 22:45] LABS: Bedside Glucose 32 mg/dL (74-106)
[2022-02-08 22:46] LABS: Bedside Glucose 65 mg/dL (74-106)
[2022-02-08 22:46] LABS: Bedside Glucose 183 mg/dL (74-106)
[2022-02-09 02:59] VITALS: BP 147/66; PULSE 78; RESP 18; TEMP 36.6; O2SAT 92
[2022-02-09] MEDS: Levothyroxine 100 MCG Tablet 200 MCG PO (05:23)
[2022-02-09 06:07] LABS: Absolute Lymphocyte Count 1.78 X10^3/uL (0.83-4.51); Absolute Neutrophil Count 5.5 X10^3/uL (2.0-7.7); Basophil% 1.2 % (0-1); Eosinophil# 0.06 X10^3/uL; Eosinophils% 0.7 % (0-5); Hematocrit 38.5 % (37-47); Hemoglobin 12.3 g/dL (12.0-15.0); Lymphocyte # 1.78 X10^3/ul (0.83-4.51); Lymphocyte % 22.2 % (19-41); Mean Corp Hgb Conc 31.9 g/dL (32-36); Mean Corpuscular Volume 87.7 fL (81-99); Monocyte# 0.57 X10^3/uL; Monocyte% 7.1 % (0-10); NRBC Flagged by Analyzer 0 % (0-5); Neutrophil # 5.45 X10^3/uL (2.7-7.7); Neutrophil % 68.2 % (47-70); Platelet Count 333 K/mm3 (150-450); RBC Distribution Width CV 15.9 % (11.6-14.6); Red Blood Count 4.39 M/mm3 (4.2-5.4)
[2022-02-09 07:00] LABS: Anion Gap 13 (5-15); BUN 27 mg/dL (7-18); BUN/Creat Ratio 26.5 RATIO (10-20); Calcium,Total 8.3 mg/dL (8.5-10.1); Chloride 97 mmol/L (98-107); Creatinine, Serum 1.02 mg/dL (0.55-1.02); EST Glomerular Filtration Rate 56 mL/min (>60); Est Glom Filt Rate - Afr Amer 67 mL/min (>60); Estimated Creatinine Clearance 39.25 ml/min; Glucose 512 mg/dL (74-106); Potassium 4.8 mmol/L (3.5-5.1); Sodium Level 132 mmol/L (136-145)
[2022-02-09 07:46] LABS: Bedside Glucose > 500 mg/dL (74-106)
[2022-02-09 08:00] VITALS: BP 110/47; PULSE 103; RESP 16; TEMP 36.6; O2SAT 88
[2022-02-09] MEDS: Insulin Lispro 100 UNIT/ML INSULN.PEN 15 UNIT SC (08:01)
[2022-02-09 08:40] VITALS: O2SAT 94
[2022-02-09 09:08] VITALS: BP 101/51; PULSE 90
[2022-02-09] MEDS: Metoprolol(XL)Succ 50 MG Tablet PO (09:08)
[2022-02-09] MEDS: Tolterodine Tartrate 4 MG CAP.SA PO (09:17)
[2022-02-09] MEDS: amLODIPine 5 MG Tablet PO (09:19)
[2022-02-09] MEDS: Lisinopril 10 MG Tablet PO (09:20)
[2022-02-09] MEDS: Paroxetine 20 MG Tablet PO (09:20)
--- NOTE | 2022-02-09 09:20 | CASEMGMT ---
Addendum entered by Robyn Lopez 02/09/22 11:08: TC to Beatriz at [facility] to make aware of plan for pt to dc tomorrow. Also discussed pt jayla at [facility] and that she is on a waiting list to be scheduled. She is aware that pt sig other will be present for visits. Original Note: Received vm from Beatriz at [facility] who states pt was seen once by SN and provided educational handouts. States pt did not feel she needed SN.
[2022-02-09] MEDS: Enoxaparin 40 MG/0.4 ML Syringe SC (09:21)
[2022-02-09] MEDS: Insulin Glargine-YFGN 100 UNIT/ML Pen 20 UNIT SC (09:23)
[2022-02-09 09:35] LABS: Bedside Glucose > 500 mg/dL (74-106)
[2022-02-09] MEDS: Insulin Lispro 100 UNIT/ML INSULN.PEN SC ×3 (11:26→21:51)
[2022-02-09] MEDS: Insulin Lispro 100 UNIT/ML INSULN.PEN 13 UNIT SC ×2 (11:27→16:33)
[2022-02-09 11:41] LABS: Bedside Glucose 317 mg/dL (74-106)
--- NOTE | 2022-02-09 11:41 | PN.HOSP_ITS ---
Subjective Subjective Patient seen and examined. She had no active complaints and wanted to be discharged home. Her blood sugars were low last night and so she was not given her p.m. insulin dose. Her blood sugars are up in the 500s this morning. Review of symptoms otherwise negative. It is not clear why her blood sugars have been running occasionally low like that. She has otherwise remained hemodynamically stable. Objective Data Objective Data Vital Signs: Vital Signs Temp Pulse Resp BP Pulse Ox 97.8 F 90 16 101/51 L 94 02/09/22 08:00 02/09/22 09:08 02/09/22 08:00 02/09/22 09:08 02/09/22 08:40 Oxygen Flow Rate (L/min) 2 Oxygen Delivery Method Room Air Weight: 147 lb 14.883 oz Body Mass Index (BMI) 25.0 Intake & Output: Intake and Output for Last 24 Hours 02/07/22 02/08/22 02/09/22 23:59 23:59 23:59 Intake Total 1901.66 / 1901.66 800 / 800 Balance 1901.66 / 1901.66 800 / 800 Lab / Micro Data Result Diagrams: 02/09/22 05:13 02/09/22 05:13 Labs: Laboratory Results - last 24 hr 02/08/22 11:46: POC Glucose > 500 H* 02/08/22 13:32: POC Glucose > 500 H* 02/08/22 15:25: POC Glucose 366 H 02/08/22 16:46: POC Glucose 243 H 02/08/22 21:16: POC Glucose 32 L* 02/08/22 21:50: Glucose 65 L 02/08/22 21:53: POC Glucose 65 L 02/08/22 22:40: POC Glucose 183 H 02/09/22 05:13: WBC 8.0, RBC 4.39, Hgb 12.3, Hct 38.5, MCV 87.7, MCH 28.0, MCHC 31.9 L D, RDW Std Deviation 51.0 H, RDW Coeff of Kristyn 15.9 H, Plt Count 333, MPV 12.0, Immature Gran % (Auto) 0.600, Neut % (Auto) 68.2, Lymph % (Auto) 22.2, [place] % (Auto) 7.1, Eos % (Auto) 0.7, Baso % (Auto) 1.2 H, Absolute Neuts (auto) 5.5, Absolute Lymphs (auto) 1.78, Nucleated RBC % 0 02/09/22 05:13: Sodium 132 L, Potassium 4.8, Chloride 97 L, Carbon Dioxide 22.0, Anion Gap 13, BUN 27 H, Creatinine 1.02, Estim Creat Clear Calc 39.25, Est GFR (MDRD) Af Amer 67, Est GFR (MDRD) Non-Af 56 L, BUN/Creatinine Ratio 26.5 H, Glucose 512 H*, Calcium 8.3 L 02/09/22 07:37: POC Glucose > 500 H* 02/09/22 09:03: POC Glucose > 500 H* 02/09/22 11:19: POC Glucose 317 H Micro: Microbiology 02/06/22 20:40 Nasal Secretion SARS-CoV-2 Antigen (Rapid) - Final Physical Exam Const alert, oriented x3, no apparent distress, average body habitus, healthy appearing and well nourished Exam Limitations: no limitations and other limitations HEENT normocephalic, head/scalp atraumatic, hearing grossly normal bilaterally, moist oral mucous membranes and oropharynx normal Eyes PERRL, EOMs intact bilaterally and conjunctivae normal Neck no lymphadenopathy, supple and no JVD Resp normal respiratory effort, no retractions, no use of accessory muscles and clear to auscultation bilaterally Auscultation: Negative for crackles, rales, rhonchi or wheezes Cardio regular rate, regular rhythm, S1 normal heart sound, S2 normal heart sound, no murmurs, no rub, no gallops, no clicks and no JVD GI normal to inspection, nondistended, normoactive bowel sounds, soft to palpation, non-tender and non-distended; Negative for hepatosplenomegaly Extremity normal to inspection, full ROM and no clubbing, cyanosis or edema Peripheral Pulses: Yes pulses 2+ throughout Skin no rashes or lesions noted, no wounds, skin turgor normal, no jaundice, no petechiae and no mottling Neuro oriented x3, CN's II-XII intact bilaterally, moves all extremities and no focal motor deficits Sensorium / Orientation: awake, alert, oriented to person and oriented to place Speech: speech normal Motor Exam: strength 5/5 throughout Psych affect normal Assessment & Plan Assessment/Plan (1) Hyperglycemia due to diabetes mellitus: (2) Hypothyroidism: PLAN: #HYperglycemia due to poorly controlled type 2 diabetes mellitus * says she has been taking her insulin regularly at home. * Has had episodic hypoglycemia. She had hypoglycemia last night and so did not receive her long-acting insulin dose. 2 days ago she had hypoglycemia early in the morning. * I will switch her Lantus dosing to mornings. Continue short acting 30 units 3 times daily. Continue insulin sliding scale. * Anticipate likely discharge tomorrow and follow-up with endocrinology on o utpatient basis. * * #Poorly controlled hypothyroidism * TSH is 54, with free T4 of 0.76 * claims compliance with her synthroid * synthroid increased to 250mcg daily * #THANIA: resolved #Suspected memory impairment * Her MMSE was 23 out of 30. * In light of her poorly controlled hypothyroidism, it is difficult to see that she has clear-cut memory issues when the hypothyroidism could be a confounding factor. * Synthroid was increased as above. Patient referred to endocrinology. Will need follow-up with her PCP to see if her memory issues improved after her hypothyroidism improves. If it does not then this will be a pointed towards memory issues. * #History of bilateral PE: Not on anticoagulation anymore. #History of urinary incontinence: On oxybutynin #Hyperlipidemia: On statin #Hypertension: On amlodipine and benazepril as well as metoprolol #Depression: Paroxetine DVT prophylaxis: Lovenox Charges/Coding Visit Charges Inpatient E&M: 32268 Subs Hosp L2
--- NOTE | 2022-02-09 14:11 | CASEMGMT ---
Pt screened with [facility] Palliative Care Screening Tool d/t readmit, pt did not meet criteria.
[2022-02-09 14:50] VITALS: BP 108/42; PULSE 77; RESP 18; TEMP 36.8; O2SAT 92
[2022-02-09 16:45] LABS: Bedside Glucose 290 mg/dL (74-106)
[2022-02-09 20:36] VITALS: BP 116/56; PULSE 69; RESP 18; TEMP 36.8; O2SAT 92
[2022-02-09] MEDS: Atorvastatin Calcium 10 MG Tablet 5 MG PO (21:51)
[2022-02-09 22:01] LABS: Bedside Glucose 157 mg/dL (74-106)
[2022-02-10] VITALS (9 sets, daily range): BP systolic 104–135; BP diastolic 39–70; PULSE 74–92; RESP 14–18; TEMP 36.5–37.2; O2SAT 82–97
[2022-02-10] MEDS: Levothyroxine 100 MCG Tablet 200 MCG PO (05:46)
[2022-02-10 06:19] LABS: Absolute Lymphocyte Count 2.06 X10^3/uL (0.83-4.51); Absolute Neutrophil Count 7.5 X10^3/uL (2.0-7.7); Basophil% 0.9 % (0-1); Eosinophil# 0.14 X10^3/uL; Eosinophils% 1.3 % (0-5); Hematocrit 39.7 % (37-47); Hemoglobin 12.8 g/dL (12.0-15.0); Lymphocyte # 2.06 X10^3/ul (0.83-4.51); Lymphocyte % 19.5 % (19-41); Mean Corp Hgb Conc 32.2 g/dL (32-36); Mean Corpuscular Hgb 28.6 pg (27.0-32.0); Mean Corpuscular Volume 88.6 fL (81-99); Mean Platelet Vol. 11.8 fl (6.2-12.0); Monocyte# 0.68 X10^3/uL; Monocyte% 6.4 % (0-10); NRBC Flagged by Analyzer 0 % (0-5); Neutrophil # 7.54 X10^3/uL (2.7-7.7); Neutrophil % 71.2 % (47-70); Platelet Count 355 K/mm3 (150-450); RBC Distribution Width CV 16.1 % (11.6-14.6); RBC Distribution Width SD 52.5 fl (35.1-43.9); Red Blood Count 4.48 M/mm3 (4.2-5.4); White Blood Count 10.6 K/mm3 (4.4-11.0)
[2022-02-10 06:50] LABS: Anion Gap 10 (5-15); BUN 32 mg/dL (7-18); BUN/Creat Ratio 28.6 RATIO (10-20); Calcium,Total 8.6 mg/dL (8.5-10.1); Chloride 97 mmol/L (98-107); Creatinine, Serum 1.12 mg/dL (0.55-1.02); EST Glomerular Filtration Rate 50 mL/min (>60); Est Glom Filt Rate - Afr Amer 60 mL/min (>60); Estimated Creatinine Clearance 35.75 ml/min; Glucose 439 mg/dL (74-106); Potassium 4.6 mmol/L (3.5-5.1); Sodium Level 131 mmol/L (136-145)
[2022-02-10] MEDS: Insulin Lispro 100 UNIT/ML INSULN.PEN SC ×2 (07:22→13:03)
[2022-02-10] MEDS: Insulin Lispro 100 UNIT/ML INSULN.PEN 13 UNIT SC ×2 (07:23→13:04)
[2022-02-10] MEDS: Enoxaparin 40 MG/0.4 ML Syringe SC (10:31)
[2022-02-10] MEDS: Tolterodine Tartrate 4 MG CAP.SA PO (10:31)
[2022-02-10] MEDS: Metoprolol(XL)Succ 50 MG Tablet PO (10:32)
[2022-02-10] MEDS: Insulin Glargine-YFGN 100 UNIT/ML Pen 20 UNIT SC (10:32)
[2022-02-10] MEDS: Paroxetine 20 MG Tablet PO (10:32)
--- NOTE | 2022-02-10 11:14 | DS.PCM_ITS ---
Providers Date of Admission: 02/06/22 Primary Care Physician: Dr. Shena Jeffers DO Reason For Visit: HYPERGLYCEMIA/THANIA Diagnosis Discharge Diagnosis (1) Hyperglycemia due to diabetes mellitus: Status: Acute Code(s): E11.65 - Type 2 diabetes mellitus with hyperglycemia (2) Hypothyroidism: Status: Acute Code(s): E03.9 - Hypothyroidism, unspecified Medications at Discharge Home Medications albuterol sulfate 90 mcg/actuation aerosol inhaler 1 puff INHALATION ONCE PRN 09/08/21 amlodipine 5 mg-benazepril 10 mg capsule 1 cap PO DAILY 09/08/21 metoprolol succinate 50 mg tablet,extended release 24 hr 50 mg PO DAILY 09/08/21 oxybutynin chloride 5 mg tablet 10 mg PO DAILY tab 09/08/21 insulin lispro [Humalog KwikPen Insulin] 13 unit SUBCUT TIDAC #1 ml 01/30/22 insulin lispro [Humalog KwikPen Insulin] See Protocol SUBCUT ACHS #0 ml 01/30/22 paroxetine mesylate 20 mg PO DAILY #30 tab 01/30/22 potassium chloride [Klor-Con M20] 40 meq PO DAILYCM #6 tab 01/30/22 potassium, sodium phosphates 1 packet PO TID #6 ea 01/30/22 simvastatin 10 mg PO DAILY #30 tab 01/31/22 Lantus U-100 Insulin 25 unit SUBCUT QPM 30 Days #3 ml 02/10/22 levothyroxine 200 mcg PO DAILY #30 cap 02/10/22 Hospital Course Operations None Procedures None Summary of Care Provided Minutes Spent on Discharge: 40 Hospital Course: Patient is a 76-year-old female with a past medical history as outlined was admitted through the ED on 02/06/2022 on account of hyperglycemia. Patient had apparently been on an insulin pump previously but this was discontinued as there was a concern about it malfunctioning. She had recently been admitted for DKA due to hyperglycemia. On admission she was found to have markedly elevated blood sugars more than 500. Anion gap was only 12 and urinaly sis showed nitrites and also showed 2+ bacteria. She was admitted and managed for hyperglycemia due to poorly controlled diabetes mellitus. Creatinine was also elevated at 1.69 and she was hydrated with IV fluids. Hypoglycemia subsequently improved but her hospital course was complicated by hypoglycemic episodes. There was also concern about early onset dementia she had a Mini- Mental state exam done which was 23. However this was complicated by her TSH being markedly elevated at around 54. She did have hypothyroidism and was on Synthroid and she claimed compliance with this but her TSH had gradually been trending upwards. Her Synthroid dose was therefore increased to 200 mcg daily. Patient remained clinically stable though her blood sugars were still not tightly controlled. She was discharged home on 02/10/2022 on home health. Her Lantus dose was increased to 25 units from 20units in the morning and she is continue with 13 units of NovoLog 3 times daily. She was counseled to follow-up with endocrinology for diabetes and hypothyroidism. Patient was seen and examined prior to discharge. She had no active complaints and wanted to be discharged home. Review of stents otherwise negative. Labs and vitals reviewed. Home medication reviewed and reconciled. Physical Exam Const alert, oriented x3, no apparent distress, average body habitus, healthy appearing and well nourished General Appearance: cooperative and comfortable Orientation / Consciousness: awake, oriented to person, oriented to place and oriented to time Exam Limitations: no limitations and other limitations HEENT normocephalic, head/scalp atraumatic, hearing grossly normal bilaterally, moist oral mucous membranes and oropharynx normal Eyes PERRL, EOMs intact bilaterally and conjunctivae normal Eyes Narrative: No scleral icterus Neck no lymphadenopathy, supple and no JVD Resp normal respiratory effort, no retractions, no use of accessory muscles and clear to auscultation bilaterally Auscultation: Negative for crackles, rales, rhonchi or wheezes Cardio regular rate, regular rhythm, S1 normal heart sound, S2 normal heart sound, no murmurs, no rub, no gallops, no clicks and no JVD GI normal to inspection, nondistended, normoactive bowel sounds, soft to palpation, non-tender and non-distended; Negative for hepatosplenomegaly Extremity normal to inspection, full ROM and no clubbing, cyanosis or edema Skin no rashes or lesions noted, no wounds, skin turgor normal, no jaundice, no petechiae and no mottling Neuro oriented x3, CN's II-XII intact bilaterally, moves all extremities and no focal motor deficits Sensorium / Orientation: awake, alert, oriented to person and oriented to place Speech: speech normal Motor Exam: strength 5/5 throughout Psych affect normal Weight / BMI Weight Weight: 147 lb 14.883 oz Body Mass Index (BMI) 25.0 ABG / Lab / Microbiology Data Result Diagrams: 02/10/22 05:28 02/10/22 05:28 Laboratory: Laboratory Results - last 24 hr 02/09/22 11:19: POC Glucose 317 H 02/09/22 16:30: POC Glucose 290 H 02/09/22 21:50: POC Glucose 157 H 02/10/22 05:28: WBC 10.6, RBC 4.48, Hgb 12.8, Hct 39.7, MCV 88.6, MCH 28.6, MCHC 32.2, RDW Std Deviation 52.5 H, RDW Coeff of Kristyn 16.1 H, Plt Count 355, MPV 11.8, Immature Gran % (Auto) 0.700, Neut % (Auto) 71.2 H, Lymph % (Auto) 19.5, [place] % (Auto) 6.4, Eos % (Auto) 1.3, Baso % (Auto) 0.9, Absolute Neuts (auto) 7.5, Absolute Lymphs (auto) 2.06, Nucleated RBC % 0 02/10/22 05:28: Sodium 131 L, Potassium 4.6, Chloride 97 L, Carbon Dioxide 24.0, Anion Gap 10, BUN 32 H, Creatinine 1.12 H, Estim Creat Clear Calc 35.75, Est GFR (MDRD) Af Amer 60, Est GFR (MDRD) Non-Af 50 L, BUN/Creatinine Ratio 28.6 H, Glucose 439 H, Calcium 8.6 Microbiology: Microbiology 02/06/22 20:40 Nasal Secretion SARS-CoV-2 Antigen (Rapid) - Final D/C Instructions Discharge Diet: 1800 Calorie Control Diet Discharge Activity: Return to Normal Activity Weight Bearing Status: Weight bearing as tolerated Call your doctor if you observe: Fever of 101 or Higher, Shortness of breath, Swelling in the ankles and Increased palpitations (irregular heartbeat) Meaningful Use Info Meaningful Use Diagnoses (Choose all that apply): None applicable Discharge Plan Admission Admit Date/Time: 02/06/22 11:05 Primary Reason for Your Visit: hyperglycemia due to poorly controlled diabetes mellitus Attending Provider: Shanita Lagos Primary Care Provider: Shena Jeffers Instructions Patient Instructions: High Blood Sugar (Hyperglycemia), ED Diabetic Hyperglyc emia Additional Instructions / Restrictions: insulin lantus increased to 25 units daily, in the morning. Discharge Orders/Prescriptions Prescriptions: New levothyroxine 200 mcg capsule 200 mcg PO DAILY Qty: 30 RF: 3 Continued amlodipine-benazepril [Lotrel] 5-10 mg capsule 1 cap PO DAILY RF: 0 oxybutynin chloride 5 mg tablet 10 mg PO DAILY RF: 0 metoprolol succinate [Toprol XL] 50 mg tablet extended release 24 hr 50 mg PO DAILY RF: 0 albuterol sulfate [Proventil HFA] 90 mcg/actuation HFA aerosol inhaler 1 puff inhalation ONCE PRN (Reason: shortness of breath or wheezing) RF: 0 potassium, sodium phosphates 280-160-250 mg Powder In Packet 1 packet PO TID Qty: 6 RF: 0 potassium chloride [Klor-Con M20] 20 mEq Tablet,Er Particles/Crystals 40 meq PO DAILYCM Qty: 6 RF: 0 insulin lispro [Humalog KwikPen Insulin] 100 unit/mL Insulin Pen See Protocol unit subcut ACHS Qty: 0 RF: 0 insulin lispro [Humalog KwikPen Insulin] 100 unit/mL Insulin Pen 13 unit subcut TIDAC Qty: 1 RF: 5 paroxetine mesylate 20 mg tablet 20 mg PO DAILY Qty: 30 RF: 0 simvastatin 10 mg tablet 10 mg PO DAILY Qty: 30 RF: 0 Changed Lantus U-100 Insulin 100 unit/mL solution 25 unit subcut QPM 30 Days Qty: 3 RF: 5 Discontinued levothyroxine 112 mcg tablet 112 mcg PO DAILY RF: 0 Referrals / Follow Up: Shena Jeffers DO [Primary Care Provider] - 02/11/22 7:15 am Haresh Ceja MD [STAFF PHYSICIAN] - Within 2 Weeks (follow up for management of hypothyroidism and diabetes ) Disposition Disposition (needs filled in before D/C Order can be placed): Home Health Service Charges/Coding Visit Charges Inpatient E&M: 79431 Disch Hosp
[2022-02-10 11:45] LABS: Bedside Glucose 311 mg/dL (74-106)
--- NOTE | 2022-02-10 12:16 | CASEMGMT ---
Addendum entered by Robyn Lopez 02/10/22 12:26: Attempted to reach Don to make aware of the same below. No answer on cell phone. Addendum entered by Robyn Lopez 02/10/22 12:25: KRISTINE ALEMAN in to pt room, pt aware that C will be in touch with her and the importance of letting them continue to visit her. She is also aware of the [facility] program who will be contacting her to schedule an appt. Pt denies further needs. Original Note: TC evga Clark's request to notify pt is dc'ing this date.
--- NOTE | 2022-02-10 13:45 | PCA ---
CALLED TO MAKE AN APPOINTMENT TO [facility] FOR AN FOLLOW UP APPOINTMENT. [facility] GAS DISPATCHER SAID THAT THEY WILL NOT SCHEDULE ANYMORE APPOINTMENTS FOR HER THAT SHE DIDN'T SHOW UP TO 3 OF HER APPOINTMENTS. THIS KNOCKDOWN MAN INFORMED THE NURSE OF THIS SITUATION.
--- NOTE | 2022-02-10 13:53 | NURSING ---
Nurse called Pt friend to update him on her discharge to home. Friend is at lunch with his family.Front Sight Attacher attempt to make phone call to schedule her Cane Flume Watchman yung, per office pt has not showed up for her last 2 appointments and has not called to reschedule nor explain cancellation. Further more pt will not be accepted. Front Sight Attacher attempt to schedule with [facility] office. Pt son is updated per his concern Pt has moved to [place] with her boyfriend which she strongly advised against. Also the is worried as to what her self care is with her illness and medications. He wants to have someone look in and see what condition she is living in and also paper work on him being her power energy attorney. Message left for director of casework department to follow up with phone call.
== END 2022-02-10 14:42 | disposition home health service (06) | DRG 638 ==
LOC: ED 10:42 → MS3 12:18
PROVIDERS: Hospitalist; Admitting Provider Internal Medicine; Emergency Provider Emergency Medicine; PCP Internal Medicine; Visit Provider Student in an Organized Health Care Education/Training Program
DX: E11.65 Type 2 diabetes mellitus with hyperglycemia (principal); N17.9 Acute kidney failure, unspecified; E11.649 Type 2 diabetes mellitus with hypoglycemia without coma; F03.90 Unspecified dementia, unspecified severity, without behavioral disturbance, psychotic disturbance, mood disturbance, and anxiety; J43.9 Emphysema, unspecified; Z79.4 Long term (current) use of insulin; I10 Essential (primary) hypertension; E03.9 Hypothyroidism, unspecified; E78.5 Hyperlipidemia, unspecified; E86.0 Dehydration; Z20.822 Contact with and (suspected) exposure to COVID-19; R82.71 Bacteriuria; R32 Unspecified urinary incontinence; R00.0 Tachycardia, unspecified; F32.A Depression, unspecified; Z79.890 Hormone replacement therapy; Z79.899 Other long term (current) drug therapy; Z86.711 Personal history of pulmonary embolism; Z87.891 Personal history of nicotine dependence
CPT/HCPCS: 36415; 80048; 80053; 80061; 81001; 82009; 82947; 82962; 83735; 84100; 84481; 85025; 87811; 93005; 97110; 97162; 97165; 97530; 97535; 97802; 99285; 99406; J7030; J7120; A4216

== ENCOUNTER 2022-02-24 14:23 | Emergency (ER) | payer MEDICARE, OTHER, SELFPAY ==
[2022-02-24 14:24] VITALS: BP 124/57; PULSE 110; RESP 18; TEMP 36.6; O2SAT 99; BMI 25.5
--- NOTE | 2022-02-24 14:54 | VDLE_ITS ---
Reason For Study: Swelling RIGHT LEFT CFV is compressible, spontaneous, phasic, Acute deep vein thrombosis is noted in the competent and demonstrates normal left EIV distal, CFV, FV, PopV, T/P Trunk, augmentation. GastrocV, PTV, PeroV, and SoleusV. Procedure Acute superficial vein thrombosis is noted This is a venous duplex using B-mode, color in the left GSV from junction to prox thigh. flow and spectral Doppler. Exam performed portable in ED. A preliminary report was called and/or faxed to ED. VL/Venous Duplex US, Unilateral Interpretation Summary Extensive deep venous thrombosis noted in the distal left external iliac, commo n femoral, femoral, popliteal, tibioperoneal trunk, gastrocnemius, posterior tibial, peroneal, and soleus veins Superficial thrombophlebitis left great saphenous vein from the junction to the proximal thigh Patent and compressible right common femoral vein Ordering Physician: Osiel Johnston Referring Physician: Shena Jeffers M.D. Performed By: Jeanine Lockhart RVT
--- NOTE | 2022-02-24 15:00 | EDS_ITS ---
HPI History of Present Illness Chief Complaint: Lower Extremity Injury Informant: patient Onset/Context/Timing Onset: Days (5) Context: Gradual Onset Timing: Continuous Quality of Pain: - (Swollen) Location: Left lower extremity to the thigh Current Severity: Severe Maximum Severity: Severe Worsened by: Nothing Relieved by: Nothing Narrative Narrative: patient presents with her , he states that her leg is usually asymmetrically swollen on the left, but has definitely been worse in the past 5 days or so without any obvious reason. She ran out of her BioMedFlex months ago, sent a message to her doctor but has not heard back and is not on the medication anymore because of this. She states she was on it because of a pulmonary embolus. She has no idea how long ago she was diagnosed with this, the states that she has some dementia and is forgetful, he provides much of the history, states he met her several years ago and when he met her she was on the medication. No recent long travel or immobilization/hospitalization. She denies any chest pain, shortness of breath, palpitations, syncopal episodes, falls, injuries to the leg, or pain in the leg that is swollen. PFSH PFSH Medical History COPD (chronic obstructive pulmonary disease) Diabetes Emphysema lung HLD (hyperlipidemia) HTN (hypertension) Hypothyroidism Hypothyroidism Memory loss Osteopenia Pulmonary embolism, bilateral Smoker Home Medications albuterol sulfate 90 mcg/actuation aerosol inhaler 1 puff INHALATION ONCE PRN 09/08/21 [History Last Taken 10/05/21] amlodipine 5 mg-benazepril 10 mg capsule 1 cap PO DAILY 09/08/21 [History Last Taken 02/06/22] metoprolol succinate 50 mg tablet,extended release 24 hr 50 mg PO DAILY 09/08/21 [History Last Taken 02/06/22] oxybutynin chloride 5 mg tablet 10 mg PO DAILY tab 09/08/21 [History Last Taken 02/06/22] insulin lispro [Humalog KwikPen Insulin] 13 unit SUBCUT TIDAC #1 ml 01/30/22 [Rx Last Taken 02/05/22] insulin lispro [Humalog KwikPen Insulin] See Protocol SUBCUT ACHS #0 ml 01/30/22 [Rx Last Taken Unknown] paroxetine mesylate 20 mg PO DAILY #30 tab 01/30/22 [Rx Last Taken 02/06/22] potassium chloride [Klor-Con M20] 40 meq PO DAILYCM #6 tab 01/30/22 [Rx Last Taken 02/06/22] potassium, sodium phosphates 1 packet PO TID #6 ea 01/30/22 [Rx Last Taken 02/06/22] simvastatin 10 mg PO DAILY #30 tab 01/31/22 [Rx Last Taken 02/06/22] Lantus U-100 Insulin 25 unit SUBCUT QPM 30 Days #3 ml 02/10/22 [Rx Last Taken 02/05/22] levothyroxine 200 mcg PO DAILY #30 cap 02/10/22 [Rx Last Taken Unknown] apixaban [Eliquis DVT-PE Treat 30D Start] 5 mg PO BID #74 tab 02/24/22 [Rx Last Taken Unknown] Allergy/AdvReac Type Severity Reaction Status Date / Time ciprofloxacin [From Cipro] Allergy Intermediate hives Verified 02/24/22 14:28 Sulfa (Sulfonamide Allergy Intermediate hives Verified 02/24/22 14:28 Antibiotics) Family History Father Diabetes Respiratory disease Surgical History S/P insertion of insulin pump Social History household members: significant other and none number of children: 2 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 Smoking Status: Current every day smoker tobacco type: cigarettes alcohol intake: current alcohol intake frequency: a few times a month substance use type: does not use ROS ROS ED Constitutional Constitutional ED: Denies chills or fever(s) Cardiovascular Cardiovascular: Reports pedal edema; Denies chest pain, chest pain at rest, palpitations, pounding heartbeat or racing heartbeat Respiratory/Chest Respiratory/Chest: Denies cough or dyspnea Musculoskeletal Musculoskeletal: Reports as per HPI; Denies extremity pain or neck pain Integumentary Denies Abrasions, rash or wounds Neurologic Neurologic: Denies paresthesias or weakness EXAM Physical Exam Const Vital Signs: 02/24/22 14:24 Temperature 98 F Temperature Source Temporal Pulse Rate 110 H Respiratory Rate 18 Blood Pressure 124/57 H Blood Pressure Mean 79 Pulse Ox 99 Oxygen Delivery Method Room Air Positive well nourished and well developed General Appearance ED: well developed and NAD Neck full ROM and supple Resp normal respiratory effort and normal air movement Cardio regular rate and regular rhythm Rate: Negative for tachycardic Back/Spine normal ROM and normal to inspection Extremity Extremity Narrative: Edematous nontender left lower extremity. The right is normal. Difficult to feel pulses, but cap refill is 2 seconds or less in all toes bilaterally and symmetrically. Feet are warm. All compartments are soft and nontender, nondistended. No color changes to suggest cellulitis or cyanosis. Neuro oriented x3, no focal motor deficits and no sensory deficits noted Sensorium / Orientation: alert Psych mental status grossly normal and thought process normal Skin no wounds Rashes: no rashes MDM MDM MDM Narrative Medical decision making narrative: Ultrasound of the left lower extremity was obtained, results are as below, there is extensive DVT present. She does not have any symptoms of a pulmonary embolus, she is mildly tachycardic but her vital signs are otherwise stable and she has no dyspnea with exertion or other symptoms with exertion. It would be reasonable to start her on one of the new DOAC such as Eliquis, she has been on this and Xarelto in the past but states they were expensive. We talked about alternatives such as Coumadin, but she needs to be bridged with Lovenox, and levels checked often, after discussing with her significant other she decides to try Eliquis which she did try in the past and she thinks her insurance made her pay less than the Xarelto. Gave her a dose here and a starter prescription advised to follow-up with her doctor for further discussions and reevaluation. We discussed reasons to return she is comfortable with that plan. Radiography Diagnostic Testing: Clinical Impression(s) from Imaging Studies Venous Doppler Study 02/24/22 14:54 Interpretation Summary Extensive deep venous thrombosis noted in the distal left external iliac, common femoral, femoral, popliteal, tibioperoneal trunk, gastrocnemius, posterior tibial, peroneal, and soleus veins Superficial thrombophlebitis left great saphenous vein from the junction to the proximal thigh Patent and compressible right common femoral vein Ordering Physician: Osiel Johnston Referring Physician: Shena Jeffers M.D. Performed By: Jeanine Lockhart RVT Discharge Plan Triage Chief Complaint: Lower Extremity Injury ED Provider: Osiel Johnston Dx/Rx/DC Orders Clinical Impression: Acute deep vein thrombosis (DVT) of left lower extremity Instructions: DVT Dc Prescriptions: New Eliquis DVT-PE Treat 30D Start 5 mg (74 tabs) tablets,dose pack 5 mg PO BID Qty: 74 RF: 0 No Action amlodipine-benazepril [Lotrel] 5-10 mg capsule 1 cap PO DAILY RF: 0 oxybutynin chloride 5 mg tablet 10 mg PO DAILY RF: 0 metoprolol succinate [Toprol XL] 50 mg tablet extended release 24 hr 50 mg PO DAILY RF: 0 albuterol sulfate [Proventil HFA] 90 mcg/actuation HFA aerosol inhaler 1 puff inhalation ONCE PRN (Reason: shortness of breath or wheezing) RF: 0 potassium, sodium phosphates 280-160-250 mg Powder In Packet 1 packet PO TID Qty: 6 RF: 0 potassium chloride [Klor-Con M20] 20 mEq Tablet,Er Particles/Crystals 40 meq PO DAILYCM Qty: 6 RF: 0 insulin lispro [Humalog KwikPen Insulin] 100 unit/mL Insulin Pen See Protocol unit subcut ACHS Qty: 0 RF: 0 insulin lispro [Humalog KwikPen Insulin] 100 unit/mL Insulin Pen 13 unit subcut TIDAC Qty: 1 RF: 5 paroxetine mesylate 20 mg tablet 20 mg PO DAILY Qty: 30 RF: 0 simvastatin 10 mg tablet 10 mg PO DAILY Qty: 30 RF: 0 Lantus U-100 Insulin 100 unit/mL solution 25 unit subcut QPM 30 Days Qty: 3 RF: 5 levothyroxine 200 mcg capsule 200 mcg PO DAILY Qty: 30 RF: 3 Primary Care Provider: Shena Jeffers Referrals: Shena Jeffers, [Primary Care Provider] - (Call for appointment to be seen within the next 1-2 weeks) Disposition Disposition: Home, Self Care
[2022-02-24 16:14] VITALS: PULSE 92; RESP 25; O2SAT 94
[2022-02-24] MEDS: APIXABAN 5 MG TABLET 10 MG PO (16:14)
--- NOTE | 2022-03-02 17:58 | CM.ED ---
ER RNM DC F/u Call: ED Visit 02/24/2022 for LE swelling, +DVT, Prescribed Eliquis Called patient listed cell number on demographics. Female voice on Vm but no correct patient identifier and therefore no VM left by this typewriter tester. Other listed cell phone to patient son, did not attempt. Lesley Hartman RNCM
== END 2022-02-24 16:26 | disposition home or self-care (01) ==
PROVIDERS: Emergency Provider Emergency Medicine; PCP Internal Medicine; Visit Provider Emergency Medicine
DX: I82.402 Acute embolism and thrombosis of unspecified deep veins of left lower extremity (principal); F17.210 Nicotine dependence, cigarettes, uncomplicated; Z86.711 Personal history of pulmonary embolism
CPT/HCPCS: 93971; 99284

== ENCOUNTER → 2022-04-23 | Outpatient (CLI) | payer MEDICARE, OTHER, SELFPAY ==
[2022-04-23 16:36] LABS: Vitamin D,25 Hydroxy 21.1 ng/mL
[2022-04-23 16:42] LABS: ALB/GLOB Ratio 0.7 RATIO (0.9-2.4); AST(SGOT) 15 U/L (15-37); Alanine Aminotransfer ALT/SGPT 20 U/L (13-56); Albumin, Serum 2.9 g/dL (3.2-5.0); Alkaline Phosphatase 109 U/L (45-117); Anion Gap 9 (5-15); BUN 30 mg/dL (7-18); BUN/Creat Ratio 25.2 RATIO (10-20); Calcium,Total 8.8 mg/dL (8.5-10.1); Chloride 100 mmol/L (98-107); Creatinine, Serum 1.19 mg/dL (0.55-1.02); EST Glomerular Filtration Rate 47 mL/min (>60); Est Glom Filt Rate - Afr Amer 56 mL/min (>60); Globulin 3.9 g/dL (2.2-4.2); Glucose 432 mg/dL (74-106); Potassium 5.2 mmol/L (3.5-5.1); Protein, Total 6.8 g/dL (6.4-8.2); Sodium Level 136 mmol/L (136-145); T4 Free Direct 2.03 ng/dL (0.76-1.46); Thyroid Stim Hormone (TSH) 0.01 uIU/mL (0.358-3.74)
== END | disposition home or self-care (01) ==
LOC: BIMLAB 15:28
PROVIDERS: PCP Internal Medicine; Referring Provider Internal Medicine Endocrinology, Diabetes & Metabolism; Visit Provider Internal Medicine Endocrinology, Diabetes & Metabolism
DX: E11.9 Type 2 diabetes mellitus without complications (principal); M85.80 Other specified disorders of bone density and structure, unspecified site; E03.8 Other specified hypothyroidism; E06.3 Autoimmune thyroiditis
CPT/HCPCS: 36415; 80053; 82306; 84439; 84443

== ENCOUNTER → 2022-06-03 | Outpatient (CLI) | payer MEDICARE, OTHER, SELFPAY ==
[2022-06-03 11:12] LABS: Hematocrit 36.6 % (37-47); Hemoglobin 11.9 g/dL (12.0-15.0); Mean Corp Hgb Conc 32.5 g/dL (32-36); Mean Platelet Vol. 10.3 fl (6.2-12.0); Platelet Count 543 K/mm3 (150-450); RBC Distribution Width CV 14.7 % (11.6-14.6); RBC Distribution Width SD 44.4 fl (35.1-43.9); Red Blood Count 4.41 M/mm3 (4.2-5.4); White Blood Count 10.6 K/mm3 (4.4-11.0)
[2022-06-03 11:26] LABS: ALB/GLOB Ratio 0.6 RATIO (0.9-2.4); AST(SGOT) 19 U/L (15-37); Alanine Aminotransfer ALT/SGPT 22 U/L (13-56); Albumin, Serum 2.6 g/dL (3.2-5.0); Alkaline Phosphatase 137 U/L (45-117); Anion Gap 8 (5-15); BUN 19 mg/dL (7-18); BUN/Creat Ratio 17.8 RATIO (10-20); Calcium,Total 9.5 mg/dL (8.5-10.1); Chloride 102 mmol/L (98-107); Creatinine, Serum 1.07 mg/dL (0.55-1.02); EST Glomerular Filtration Rate 53 mL/min (>60); Est Glom Filt Rate - Afr Amer 64 mL/min (>60); Globulin 4.1 g/dL (2.2-4.2); Glucose 124 mg/dL (74-106); Potassium 4.3 mmol/L (3.5-5.1); Protein, Total 6.7 g/dL (6.4-8.2); Sodium Level 139 mmol/L (136-145)
--- NOTE | 2022-06-03 14:54 | VDLE_ITS ---
Reason For Study: Shortness of breath RIGHT LEFT GSV is normal. GSV is normal. CFV is compressible, spontaneous, phasic, POP V is compressible, spontaneous, phasic, competent and demonstrates normal competent and demonstrates normal augmentation. augmentation. FV is compressible, spontaneous, phasic, T/P Trunk is compressible. competent and demonstrates normal PTV is compressible. augmentation. LT PerV is compressible. POP V is compressible, spontaneous, phasic, EIV is noncompressible with minimal venous competent and demonstrates normal flow noted. augmentation. CFV and FV prox are partially noncompressible T/P Trunk is compressible. with venous flow ntoed. PTV is compressible. RT PerV is compressible. Nonvascularized structure noted in the right popliteal fossa that measures 1.06 x 3.13 x 4.36 cm. Procedure This is a venous duplex using B-mode, color flow and spectral Doppler. Exam performed in department. Compared to 02/24/2022. A preliminary report was called and/or faxed to [facility]. VL/Venous Duplex US - Claudy Extrem Interpretation Summary There is no evidence of right lower extremity deep vein thrombosis. 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 Clinical correlat ion would be appropriate. Deep venous thrombosis left external iliac vein with either acute or chronic di sease involving the left common femoral and femoral veins. Patent and compressible bilateral great saphenous veins Refer to the previous examination of February 24, 2022 demonstrating extensive deep d eep venous thrombosis involving the left lower extremity Ordering Physician: Shena Jeffers Referring Physician: Shena Jeffers M.D. Performed By: Jeanine Lockhart RVT
[2022-06-03 16:40] LABS: BNP,B-Type NATRIURETIC PEPTIDE 157.7 pg/mL (0-100)
== END | disposition home or self-care (01) ==
LOC: LABSPEC 11:54 → CVS 14:56
PROVIDERS: PCP Internal Medicine; Visit Provider Internal Medicine
DX: R06.02 Shortness of breath (principal)
CPT/HCPCS: 80053; 83880; 85027; 93970

== ENCOUNTER 2022-06-04 23:00 | Inpatient (IN) | payer MEDICARE, OTHER, SELFPAY ==
[2022-06-04 23:01] VITALS: BP 128/54; PULSE 108; RESP 19; TEMP 37.1; O2SAT 94; BMI 27.6
[2022-06-04 23:06] VITALS: O2SAT 92
--- NOTE | 2022-06-04 23:18 | CT_ITS ---
EXAM: CT HEAD WITHOUT INTRAVENOUS CONTRAST CLINICAL INDICATION: altered mental status TECHNIQUE: Multiple axial images were obtained of the head without intravenous contrast. This CT exam was performed using one or more of the following dose reduction techniques: automated exposure control, adjustment of the mA and/or kV according to patient size, and/or use of iterative reconstruction technique. This report was created using [employer] report generation technology. RADIATION DOSE: Total DLP: 812.98 mGy-cm. COMPARISON: CT of 01/27/2022. FINDINGS: BRAIN AND EXTRA-AXIAL SPACES: Findings of mild age-related atrophy are noted with prominence of cortical sulci, basal cisterns and ventricles. Moderate patchy chronic small vessel ischemic changes are noted within the deep white matter tracts. The basal ganglia are symmetric. No intra- or extra-axial hemorrhage. No intracranial mass or mass effect. Posterior fossa structures are unremarkable. 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 VASCULATURE: Atherosclerotic vascular is present. The middle cerebral arteries are not hyperdense. SINUSES: Unremarkable as visualized. Clear. MASTOID AIR CELLS: Unremarkable. Clear. ORBITS: Previous cataract surgery. CT/Brain/Head without Contrast IMPRESSION: No significant interval change. Atrophy and chronic small vessel ischemic changes. No acute intracranial abnormality identified. Electronically Signed: Prakash Reyes MD at 0:07 EDT ,
--- NOTE | 2022-06-04 23:18 | EKG12_ITS ---
Test Reason : DYSRHYTHMIA Blood Pressure : / mmHG Vent. Rate : 108 BPM Atrial Rate : 108 BPM P-R Int : 150 ms QRS Dur : 076 ms QT Int : 326 ms P-R-T Axes : 069 079 061 degrees QTc Int : 436 ms Sinus tachycardia Otherwise normal ECG Confirmed by RICKIE MCKEON, AMY ([id number]), website/blog editor JAZMÍN CERVANTES ([id number]) on 06/07/2022 10:18:25 AM Referred By: TATUM Confirmed By:AMY DAMIAN MD
[2022-06-04 23:32] VITALS: O2SAT 97
[2022-06-04 23:33] VITALS: TEMP 37.1
[2022-06-04 23:36] VITALS: PULSE 107; RESP 28; RESP 30; O2SAT 95
[2022-06-04] MEDS: Ipratropium/Albuterol Sulfate 3 ML AMPUL.NEB INHALATION (23:36)
[2022-06-04] MEDS: Ondansetron 4 MG/2 ML Vial IV (23:43)
[2022-06-04 23:45] LABS: Absolute Lymphocyte Count 0.49 X10^3/uL (0.83-4.51); Basophil# 0.06 X10^3/uL; Basophil% 0.4 % (0-1); Eosinophil# 0.25 X10^3/uL; Eosinophils% 1.5 % (0-5); Hemoglobin 11.3 g/dL (12.0-15.0); Lymphocyte # 0.49 X10^3/ul (0.83-4.51); Mean Corp Hgb Conc 31.4 g/dL (32-36); Mean Corpuscular Hgb 26.8 pg (27.0-32.0); Mean Corpuscular Volume 85.5 fL (81-99); Mean Platelet Vol. 9.9 fl (6.2-12.0); Monocyte# 0.65 X10^3/uL; NRBC Flagged by Analyzer 0 % (0-5); Neutrophil # 14.95 X10^3/uL (2.7-7.7); Neutrophil % 90.9 % (47-70); POSITIVE DIFFERENTIAL YES; Platelet Count 519 K/mm3 (150-450); RBC Distribution Width CV 14.9 % (11.6-14.6); RBC Distribution Width SD 46.4 fl (35.1-43.9); Red Blood Count 4.21 M/mm3 (4.2-5.4); White Blood Count 16.4 K/mm3 (4.4-11.0)
--- NOTE | 2022-06-04 23:45 | EX.ED.DYSGE1 ---
HPI History of Present Illness Chief Complaint: Cold Sx Narrative Narrative: Patient has been sick for several days with respiratory symptoms. Has a history of COPD on 2 L of oxygen at home. States she had a CT as an outpatient showing pneumonia and she was prescribed antibiotics just today. She presents to the ER because she has been vomiting for several hours, trouble keeping anything down, and starting to feel disoriented and tired. She has been a little short of breath but not severely. She denies any chest pain, abdominal pain, hematemesis, diarrhea, fevers or chills. She has not been tested for COVID or other viral swabs. She is unvaccinated against COVID. History is somewhat limited because she is a little disoriented. 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 Memory loss Osteopenia Pulmonary embolism, bilateral Smoker Home Medications albuterol sulfate 90 mcg/actuation aerosol inhaler (Proventil HFA) 1 puff inhalation ONCE PRN shortness of breath or wheezing 09/08/21 [History Last Taken 10/05/21] amlodipine 5 mg-benazepril 10 mg capsule (Lotrel) 1 cap PO DAILY bp 09/08/21 [History Last Taken 02/06/22] metoprolol succinate 50 mg tablet,extended release 24 hr (Toprol XL) 50 mg PO DAILY heartrate 09/08/21 [History Last Taken 02/06/22] oxybutynin chloride 5 mg tablet 10 mg PO DAILY bladder 09/08/21 [History Last Taken 02/06/22] insulin lispro 100 unit/mL subcutaneous pen (Humalog KwikPen (U-100) Insulin) 13 unit (0.13 mL) subcut TIDAC #1 mL 01/30/22 [Rx Last Taken 02/05/22] insulin lispro 100 unit/mL subcutaneous pen (Humalog KwikPen (U-100) Insulin) See Protocol subcut ACHS #0 mL 01/30/22 [Rx Last Taken Unknown] simvastatin 10 mg tablet 10 mg PO DAILY #30 tabs 01/31/22 [Rx Last Taken 02/06/22] insulin glargine 100 unit/mL subcutaneous solution (Lantus U-100 Insulin) 25 unit (0.25 mL) subcut QPM 30 days #3 mL 02/10/22 [Rx Last Taken 02/05/22] apixaban 5 mg (74 tabs) tablets in a dose pack (Eliquis DVT-PE Treat 30D Start) 5 mg PO BID #74 tabs 02/24/22 [Rx Last Taken Unknown] rivaroxaban 20 mg tablet (Xarelto) 20 mg PO 04/23/22 [History Last Taken Unknown] levothyroxine 150 mcg tablet 150 mcg PO DAILY #30 tabs 04/28/22 [Rx Last Taken Unknown] Allergy/AdvReac Type Severity Reaction Status Date / Time ciprofloxacin [From Cipro] Allergy Intermediate hives Verified 04/23/22 14:35 Sulfa (Sulfonamide Allergy Intermediate hives Verified 04/23/22 14:35 Antibiotics) Family History Father Diabetes Respiratory disease Surgical History S/P insertion of insulin pump Social History household members: significant other and none number of children: 2 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 Smoking Status: Former smoker alcohol intake: current alcohol intake frequency: a few times a month substance use type: does not use ROS ROS ED Constitutional Constitutional ED: Reports fatigue and malaise; Denies chills, fever(s) or headache(s) Eyes Eyes: Denies change in vision or diplopia ENT ENT ED: Denies rhinorrhea or sore throat Cardiovascular Cardiovascular: Denies chest pain or palpitations Respiratory/Chest Respiratory/Chest: Reports cough, dyspnea, dyspnea on exertion and wheezing Gastrointestinal Gastrointestinal: Reports nausea and vomiting; Denies abdominal pain or diarrhea Genitourinary Genitourinary ED: Denies dysuria or hematuria Musculoskeletal Musculoskeletal: Denies back pain or neck pain Integumentary Denies abscess or rash Neurologic Neurologic: Reports confusion; Denies headache(s), paresthesias or weakness Psychiatric Psychiatric: Denies anxiety or suicidal thoughts EXAM Physical Exam Const Vital Signs: 06/04/22 23:01 06/04/22 23:06 06/04/22 23:32 Temperature 98.7 F Temperature Source Temporal Pulse Rate 108 H Respiratory Rate 19 H Respiratory Effort Normal Non-Labored Respiratory Depth Shallow Respiratory Pattern Normal Blood Pressure 128/54 H Blood Pressure Mean 78 Pulse Ox 94 97 Oxygen Delivery Method Room Air Nasal Cannula Nasal Cannula Oxygen Flow Rate (L/min) 2 4 06/04/22 23:33 06/04/22 23:36 06/04/22 23:36 Temperature 98.7 F Temperature Source Oral Pulse Rate 107 H Respiratory Rate 28 H 30 H Respiratory Effort Short of Breath Respiratory Depth Shallow Respiratory Pattern Tachypnea Tachypnea Blood Pressure Blood Pressure Mean Pulse Ox 95 Oxygen Delivery Method Nasal Cannula Oxygen Flow Rate (L/min) 3 06/05/22 00:17 06/05/22 00:24 Temperature 98.7 F 98.7 F Temperature Source Oral Oral Pulse Rate 116 H Respiratory Rate 26 H Respiratory Effort Respiratory Depth Respiratory Pattern Blood Pressure 134/50 H Blood Pressure Mean 78 Pulse Ox 93 Oxygen Delivery Method Nasal Cannula Oxygen Flow Rate (L/min) 3 Positive well nourished and well developed Constitutional Narrative: Appears malaised, no distress. Occasionally starts dry heaving. General Appearance ED: well developed and NAD HEENT Reports moist mucous membranes normocephalic and atraumatic Eyes PERRL and EOMs intact bilaterally Neck full ROM and supple Resp Resp Narrative: Mildly tachypneic, no respiratory distress. Rhonchi bibasilar. Equal breath sounds bilaterally. No JVD. Cardio regular rate, regular rhythm and no murmurs Cardio Narrative: Faint heart sounds Rate: tachycardic GI non-tender and non-distended Auscultation: normoactive bowel sounds Palpation: soft Back/Spine no CVA tenderness General Back: other FROM Extremity normal to inspection General Extremety ED: Negative for edema, pulses abnormal or tenderness General Extremity: Negative for edema or pulses abnormal Neuro CN's II-XII intact bilaterally and no sensory deficits noted Neuro Narrative: Occasionally disoriented to time but sometimes reorients herself. Srini Coma Scale: document GCS findings Spontaneous Obeys Commands Confused 14 Sensorium / Orientation: awake and alert Motor Exam: strength 5/5 throughout Psych mental status grossly normal Skin no rashes or lesions noted and no wounds MDM MDM MDM Narrative Medical decision making narrative: With resting and intermittent vomiting, on her home oxygen patient desats to 86%. We bumped her nasal cannula up to 4 L, and she is satting well at 95-97%. She was given some IV fluids and Zofran while we performed more of a work-up, I did review her CTA of the chest which showed no pulmonary embolus, it showed bibasilar and left lingular consolidations, she had venous Dopplers of her legs as well earlier today according to the records, and they were negative for DVT. Patient does have Eliquis on her list of medications. Other than a leukocytosis and mild chronic CO2 retention, the rest of her work-up here is unremarkable. Her lactic acid is within normal limits. In addition to this she has bilateral pneumonia. With her COPD, disorientation, tachypnea despite neb tx, hypoxemia, leukocytosis, and resting tachycardia,and CURB-65 score of 3, she is at risk for decompensation. IV antibiotics ordered, I recommend that she stay. She is amenable. She is not in respiratory distress and does not require mechanical ventilation at this time, nor intensive care admission in my opinion based on her clinical appearance. She is hemodynamically stable. Lab Data Attestation: I reviewed the patient's lab results. Labs: Laboratory Results - last 24 hr 06/04/22 06/04/22 06/04/22 23:15 23:15 23:15 WBC 16.4 H RBC 4.21 Hgb 11.3 L Hct 36.0 L MCV 85.5 MCH 26.8 L MCHC 31.4 L RDW Std Deviation 46.4 H RDW Coeff of Kristyn 14.9 H Plt Count 519 H MPV 9.9 Immature Gran % (Auto) 0.200 Neut % (Auto) 90.9 H Lymph % (Auto) 3.0 L [place] % (Auto) 4.0 Eos % (Auto) 1.5 Baso % (Auto) 0.4 Absolute Neuts (auto) 15.0 H Absolute Lymphs (auto) 0.49 L Nucleated RBC % 0 Differential Comment SCANNED Sodium 137 Potassium 4.2 Chloride 104 Carbon Dioxide 27.0 Anion Gap 6 BUN 19 H Creatinine 0.83 Estim Creat Clear Calc 44.18 Est GFR (MDRD) Af Amer 86 Est GFR (MDRD) Non-Af 71 BUN/Creatinine Ratio 22.9 H Glucose 171 H Lactic Acid 0.8 Calcium 8.9 Total Bilirubin 0.40 AST 17 ALT 18 Alkaline Phosphatase 126 H Troponin I High Sens 11 Total Protein 7.1 Albumin 2.5 L Globulin 4.6 H Albumin/Globulin Ratio 0.5 L ABG Data Attestation: I personally reviewed and interpreted this ABG as follows: Interpretation: Chronic mild CO2 retention without significant acute hypercapnia or hypoxemia while on oxygen 3 L. ABG results: ABG 06/04/22 23:58 Specimen Type ART Sample Site L Radial pH 7.35 Bicarbonate Actual 24.9 Total CO2 26 Base Excess -1 O2 Saturation 96 ABG pCO2 45.6 H ABG pO2 83 Danny Test Positive O2 Delivery Device Cannula Liter Flow 3.0 Radiography Diagnostic Testing: Clinical Impression(s) from Imaging Studies Brain CT 06/04/22 23:18 IMPRESSION: No significant interval change. Atrophy and chronic small vessel ischemic changes. No acute intracranial abnormality identified. Electronically Signed: Prakash Reyes MD at 0:07 EDT , Rhythm Strip Rhythm Strip: Sinus Tach Rate: 110 Ectopy: None EKG Initial EKG: Attestation: I personally reviewed and interpreted this EKG as follows: Interpretation: No Acute Injury Pattern and Sinus Tachycardia Discharge Plan Dx/Rx/DC Orders Clinical Impression: Bilateral pneumonia, Hypoxemia, Delirium due to another medical condition, Nausea and vomiting, COPD exacerbation Disposition Disposition: Acute Care [facility]
[2022-06-04 23:58] LABS: Differential Indicated SCAN CRITERIA MET
[2022-06-05] VITALS (15 sets, daily range): BP systolic 109–147; BP diastolic 46–75; PULSE 95–116; RESP 16–26; TEMP 36.6–37.1; O2SAT 93–98; BMI 24.5
[2022-06-05 00:05] LABS: ALB/GLOB Ratio 0.5 RATIO (0.9-2.4); AST(SGOT) 17 U/L (15-37); Alanine Aminotransfer ALT/SGPT 18 U/L (13-56); Albumin, Serum 2.5 g/dL (3.2-5.0); Alkaline Phosphatase 126 U/L (45-117); Anion Gap 6 (5-15); BUN 19 mg/dL (7-18); BUN/Creat Ratio 22.9 RATIO (10-20); Calcium,Total 8.9 mg/dL (8.5-10.1); Chloride 104 mmol/L (98-107); Creatinine, Serum 0.83 mg/dL (0.55-1.02); EST Glomerular Filtration Rate 71 mL/min (>60); Est Glom Filt Rate - Afr Amer 86 mL/min (>60); Estimated Creatinine Clearance 44.18 ml/min; Globulin 4.6 g/dL (2.2-4.2); Glucose 171 mg/dL (74-106); Potassium 4.2 mmol/L (3.5-5.1); Protein, Total 7.1 g/dL (6.4-8.2); Sodium Level 137 mmol/L (136-145); Troponin-I HS 11 pg/mL (3.0-54.0)
[2022-06-05 00:06] LABS: Allen Test Positive; Base Excess -1 mmol/L (-2 to +2); Bicarbonate 24.9 mmol/L (22-26); Blood Gas Specimen Type ART; O2 Delivery Device Cannula; PO2 83 mmHG (75-100); SITE L Radial; SO2 96 % (95-99); Total Carbon Dioxide 26 mmol/L; pCO2 45.6 mmHg (35-45); pH 7.35 (7.35-7.45)
[2022-06-05 00:08] LABS: Lactic Acid 0.8 mmol/L (0.4-1.9)
[2022-06-05 01:17] LABS: Differential Comment SCANNED
[2022-06-05] MEDS: MethylPREDNISolone 125 MG/2 ML Vial IV (01:49)
--- NOTE | 2022-06-05 02:15 | PCM.HP.STD ---
HPI - General General Date of Admission: 06/05/22 Date of Service: 06/05/22 Chief Complaint: Generalized weakness for few days along with shortness of breath. HPI Narrative LIVIER SMALLS, is a 76 F with multiple comorbidities and recurrent admission was brought by EMS for difficulty breathing/shortness of breath. Patient states she is short of breath mainly on activity for last 2 to 3 days. She also vomited yesterday for 5 times mainly gastric content. She denies cough, sputum production, fever, chills, diaphoresis, headache, chest pain pressure or tightness. She feels extremely weak with no energy. Her oxygen requirement increased from 2L to 4 L in ED. Patient was tachycardic as per triage vitals. Earlier patient had CTA chest by PCP which showed bilateral lower lobes and lingular consolidation, no PE or arterial dissection. Chronic bilateral emphysematous changes she has a diagnosis of COPD. She was prescribed antibiotic by PCP but she could not take it because of for 5 episodes of vomiting as mentioned above. She was little confused and disoriented when she came to ED but that pain resolved when I saw the patient. Patient denies coming in contact with any suspected COVID-patient. As per record patient had influenza vaccine in 2020 and COVID Moderna vaccine with 2 booster doses. Twelve-lead EKG initially reviewed shows sinus tachycardia at 108 bpm. QTc 436 ms. MS 150 ms Labs imaging reviewed and discussed in assessment plan. 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 Memory loss Osteopenia Pulmonary embolism, bilateral Smoker Home Medications albuterol sulfate 90 mcg/actuation aerosol inhaler (Proventil HFA) 1 puff inhalation ONCE PRN shortness of breath or wheezing 09/08/21 [History Last Taken 10/05/21] amlodipine 5 mg-benazepril 10 mg capsule (Lotrel) 1 cap PO DAILY bp 09/08/21 [History Last Taken 02/06/22] metoprolol succinate 50 mg tablet,extended release 24 hr (Toprol XL) 50 mg PO DAILY heartrate 09/08/21 [History Last Taken 02/06/22] oxybutynin chloride 5 mg tablet 10 mg PO DAILY bladder 09/08/21 [History Last Taken 02/06/22] insulin lispro 100 unit/mL subcutaneous pen (Humalog KwikPen (U-100) Insulin) 13 unit (0.13 mL) subcut TIDAC #1 mL 01/30/22 [Rx Last Taken 02/05/22] insulin lispro 100 unit/mL subcutaneous pen (Humalog KwikPen (U-100) Insulin) See Protocol subcut ACHS #0 mL 01/30/22 [Rx Last Taken Unknown] simvastatin 10 mg tablet 10 mg PO DAILY #30 tabs 01/31/22 [Rx Last Taken 02/06/22] insulin glargine 100 unit/mL subcutaneous solution (Lantus U-100 Insulin) 25 unit (0.25 mL) subcut QPM 30 days #3 mL 02/10/22 [Rx Last Taken 02/05/22] apixaban 5 mg (74 tabs) tablets in a dose pack (Eliquis DVT-PE Treat 30D Start) 5 mg PO BID #74 tabs 02/24/22 [Rx Last Taken Unknown] rivaroxaban 20 mg tablet (Xarelto) 20 mg PO 04/23/22 [History Last Taken Unknown] levothyroxine 150 mcg tablet 150 mcg PO DAILY #30 tabs 04/28/22 [Rx Last Taken Unknown] Allergy/AdvReac Type Severity Reaction Status Date / Time ciprofloxacin [From Cipro] Allergy Intermediate hives Verified 04/23/22 14:35 Sulfa (Sulfonamide Allergy Intermediate hives Verified 04/23/22 14:35 Antibiotics) Family History Father Diabetes Respiratory disease Surgical History S/P insertion of insulin pump Social History household members: significant other and none number of children: 2 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 No fever HEENT: Reports systems reviewed and no addt'l complaints, except as documented Respiratory/Chest: Shortness of breath on exertion/dyspnea. No chest pain Gastrointestinal: Gastric content vomiting. No hematemesis melena or hematochezia. No diarrhea Genitourinary: Denies burning urination or new urinary tract symptoms Musculoskeletal: Reports chronic knee and hip joint pain and limited range of motion Neurologic: Denies seizure-like activity. No focal weakness. Extremities: Left leg bigger than right leg due to previous DVT. skin: No ulcer. No rash Endocrinology: Reports systems reviewed and no addt'l complaints, except as documented Hematologic/Lymphatic: History of left lower extremity DVT on DOAC. Reports systems reviewed and no addt'l complaints, except as documented Rest 14 ROS are negative except as mentioned in HPI Vital Signs Vital Signs Vital Signs: 06/04/22 23:01 06/04/22 23:06 06/04/22 23:32 Temperature 98.7 F Temperature Source Temporal Pulse Rate 108 H Respiratory Rate 19 H Respiratory Effort Normal Non-Labored Respiratory Depth Shallow Respiratory Pattern Normal Blood Pressure 128/54 H Blood Pressure Mean 78 Pulse Ox 94 97 Oxygen Delivery Method Room Air Nasal Cannula Nasal Cannula Oxygen Flow Rate (L/min) 2 4 06/04/22 23:33 06/04/22 23:36 06/04/22 23:36 Temperature 98.7 F Temperature Source Oral Pulse Rate 107 H Respiratory Rate 28 H 30 H Respiratory Effort Short of Breath Respiratory Depth Shallow Respiratory Pattern Tachypnea Tachypnea Blood Pressure Blood Pressure Mean Pulse Ox 95 Oxygen Delivery Method Nasal Cannula Oxygen Flow Rate (L/min) 3 06/05/22 00:17 06/05/22 00:24 Temperature 98.7 F 98.7 F Temperature Source Oral Oral Pulse Rate 116 H Respiratory Rate 26 H Respiratory Effort Respiratory Depth Respiratory Pattern Blood Pressure 134/50 H Blood Pressure Mean 78 Pulse Ox 93 Oxygen Delivery Method Nasal Cannula Oxygen Flow Rate (L/min) 3 Weight Weight: 150 lb 12.739 oz Body Mass Index (BMI) 27.6 Physical Exam Narrative General: Alert, Oriented x3, Cooperative HEENT: Atraumatic, PERRLA, EOMI, Normocephalic Oral: Oral mucosa dry. No Gingival or Mucosal Lesions/ Ulcerations Neck: Supple, No JVD, Negative Carotid Bruits Lungs: Air entry severely diminished in both lung bases. Bilateral coarse crepitations and wheezing. Cardiovascular: Sinus tachycardia, Normal S1, Normal S2, No murmurs Abdomen: Bowel Sounds Present, Soft, Non Tender, Non-Distended : No renal angle tenderness. No suprapubic tenderness. Extremities: Chronic left leg calf bigger than right leg, mild edema 1+., Capillary Refill Less than 3 Seconds Skin: No rashes, No breakdown Musculoskeletal: No Tenderness to Palpation of Joints or Extremities Neurological: Cranial nerves II-XII grossly intact, DTR 2+/4, no focal lateralizing sign of weakness Psych/Mental Status: Flat affect. Results Lab / Micro Data Result Diagrams: 06/04/22 23:15 06/04/22 23:15 Labs: Laboratory Results - last 24 hr 06/04/22 23:15: WBC 16.4 H, RBC 4.21, Hgb 11.3 L, Hct 36.0 L, MCV 85.5, MCH 26.8 L, MCHC 31.4 L, RDW Std Deviation 46.4 H, RDW Coeff of Kristyn 14.9 H, Plt Count 519 H, MPV 9.9, Immature Gran % (Auto) 0.200, Neut % (Auto) 90.9 H, Lymph % (Auto) 3.0 L, [place] % (Auto) 4.0, Eos % (Auto) 1.5, Baso % (Auto) 0.4, Absolute Neuts (auto) 15.0 H, Absolute Lymphs (auto) 0.49 L, Nucleated RBC % 0, Differential Comment SCANNED 06/04/22 23:15: Sodium 137, Potassium 4.2, Chloride 104, Carbon Dioxide 27.0, Anion Gap 6, BUN 19 H, Creatinine 0.83, Estim Creat Clear Calc 44.18, Est GFR (MDRD) Af Amer 86, Est GFR (MDRD) Non-Af 71, BUN/Creatinine Ratio 22.9 H, Glucose 171 H, Calcium 8.9, Total Bilirubin 0.40, AST 17, ALT 18, Alkaline Phosphatase 126 H, Troponin I High Sens 11, Total Protein 7.1, Albumin 2.5 L, Globulin 4.6 H, Albumin/Globulin Ratio 0.5 L 06/04/22 23:15: Lactic Acid 0.8 Micro: Microbiology 06/05/22 00:29 Nasal Secretion SARS-CoV-2 & FLU Antigen (Rapid) - Final ABG Data ABG results: ABG 06/04/22 23:58 Specimen Type ART Sample Site L Radial pH 7.35 Bicarbonate Actual 24.9 Total CO2 26 Base Excess -1 O2 Saturation 96 ABG pCO2 45.6 H ABG pO2 83 Danny Test Positive O2 Delivery Device Cannula Liter Flow 3.0 Rhythm Strip Rhythm Strip: Sinus Tach Rate: 110 Ectopy: None Radiology Impression Brain CT 06/04/22 23:18 IMPRESSION: No significant interval change. Atrophy and chronic small vessel ischemic changes. No acute intracranial abnormality identified. Electronically Signed: Prakash Reyes MD at 0:07 EDT , Assessment & Plan Assessment/Plan (1) Bilateral pneumonia: (2) COPD exacerbation: PLAN: Plan This is 76-year-old female is being admitted for shortness of breath, generalized weakness along with CT findings of bilateral multifocal pneumonia. 1. Bilateral multifocal, bilateral lower lobes and left lingular pneumonia: Patient is being admitted in PCU. Patient does not qualify for diagnosis of sepsis as she does not have 2 organ dysfunction. Lactic acid normal. Mild leukocytosis. Patient had 1 dose of IV Zosyn, started on Rocephin and Zithromax. Flu and COVID rapid antigen negative. Pneumonia work-up including sputum culture if patient coughs up, blood cultures x2, urinary antigens, MRSA nasal screen. Respiratory panel ordered. COVID-19 PCR ordered. Serum magnesium and phosphorus level normal. 2. COPD with mild exacerbation due to bilateral pneumonia with chronic hypoxic respiratory failure: Patient is started on DuoNeb every 4 hourly, low-dose IV Solu-Medrol, incentive spirometry, Pep and Mucinex. Oxygen therapy to keep pulse ox 90%. Patient on baseline 2 L of oxygen, increased to 3 to 4 L of oxygen. ABG 7.3 / on 3 L of oxygen 3. Diabetes mellitus type 2 with hyperglycemia: Glucose is 171. Home regimen of Lantus insulin and short-acting insulin continued. Accu-Chek H&H's cover with Humalog sliding scale. She had episodes of hypoglycemia during previous hospitalization in January 2022. 4. Mild acute encephalopathy with delirium most probably infectious from pneumonia: To me, patient is alert awake oriented x3. Resolved in ED. 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 Synthroid was increased to 250 mcg daily during previous hospitalization. At that time TSH was 54 and free T4 0.76 5. 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 Reported as DVT left external iliac vein involving left CFV and femoral veins. Patent bilateral great saphenous vein, similar to findings of venous duplex in February 2022. Confirmed with the pharmacist, patient is on Xarelto probably since February 2022 6. Mild dementia: Her MMSE was 23 out of 30 during previous hospitalization. Suspected of mild early dementia. 7. Other multiple comorbidities include hypertension, dyslipidemia, chronic urinary incontinence on oxybutynin and depression on paroxetine: Home medication reconciliation done Living will/advanced directive/end of life care: Patient does have living will or advanced directive. She is a and has 3 sons. Her power of instructional support services director for health is son. After discussion of benefits/risks procedures involved with full code, DNR CC arrest and DNR CC, the patient knows that she is DNR CC arrest with no intubation and wants to maintain it Patient doesn't want artificial life support including intubation, tube feed, ventilator and/chest compression, central venous catheter, vasopressor and DC shock if needed Total time spent in [id number] encounter in discussion of advanced directive 16 minutes. Microbiology Past 72 Hours 06/05/22 00:29 Nasal Secretion SARS-CoV-2 & FLU Antigen (Rapid) - Final Laboratory Results 06/04/22 23:15: WBC 16.4 H, RBC 4.21, Hgb 11.3 L, Hct 36.0 L, MCV 85.5, MCH 26.8 L, MCHC 31.4 L, RDW Std Deviation 46.4 H, RDW Coeff of Kristyn 14.9 H, Plt Count 519 H, MPV 9.9, Immature Gran % (Auto) 0.200, Neut % (Auto) 90.9 H, Lymph % (Auto) 3.0 L, [place] % (Auto) 4.0, Eos % (Auto) 1.5, Baso % (Auto) 0.4, Absolute Neuts (auto) 15.0 H, Absolute Lymphs (auto) 0.49 L, Nucleated RBC % 0, Differential Comment SCANNED 06/04/22 23:15: Sodium 137, Potassium 4.2, Chloride 104, Carbon Dioxide 27.0, Anion Gap 6, BUN 19 H, Creatinine 0.83, Estim Creat Clear Calc 44.18, Est GFR (MDRD) Af Amer 86, Est GFR (MDRD) Non-Af 71, BUN/Creatinine Ratio 22.9 H, Glucose 171 H, Calcium 8.9, Total Bilirubin 0.40, AST 17, ALT 18, Alkaline Phosphatase 126 H, Troponin I High Sens 11, Total Protein 7.1, Albumin 2.5 L, Globulin 4.6 H, Albumin/Globulin Ratio 0.5 L 06/04/22 23:15: Lactic Acid 0.8 06/04/22 23:58: Specimen Type ART, Sample Site L Radial, pH 7.35, Bicarbonate Actual 24.9, Total CO2 26, Base Excess -1, O2 Saturation 96, ABG pCO2 45.6 H, ABG pO2 83, Danny Test Positive, O2 Delivery Device Cannula, Liter Flow 3.0 Clinical Impression(s) from Imaging Studies Brain CT 06/04/22 23:18 IMPRESSION: No significant interval change. Atrophy and chronic small vessel ischemic changes. No acute intracranial abnormality identified. Charges/Coding Visit Charges Inpatient E&M: 65138 Init Hosp L3 Procedures Hospitalists Procedures: 45679 Advncd Care Plan 30 Min
[2022-06-05 02:38] LABS: Magnesium 2.4 mg/dL (1.6-2.6); Phosphorus 4.1 mg/dL (2.5-4.9)
[2022-06-05] MEDS: 0.9% Normal Saline 1,000 ML 100 ML IV (04:34)
[2022-06-05 05:55] LABS: M R Staph aureus DNA By PCR Negative (Negative); Probe Check PASS; Specimen Processing Control PASS
[2022-06-05] MEDS: Levothyroxine 150 MCG Tablet PO (06:43)
[2022-06-05 07:19] LABS: Absolute Neutrophil Count 15.9 X10^3/uL (2.0-7.7); Basophil# 0.05 X10^3/uL; Basophil% 0.3 % (0-1); Hematocrit 34.9 % (37-47); Hemoglobin 10.8 g/dL (12.0-15.0); Lymphocyte % 3.6 % (19-41); Mean Corp Hgb Conc 30.9 g/dL (32-36); Mean Corpuscular Hgb 26.7 pg (27.0-32.0); Mean Corpuscular Volume 86.2 fL (81-99); Mean Platelet Vol. 9.9 fl (6.2-12.0); Monocyte# 0.04 X10^3/uL; Monocyte% 0.2 % (0-10); NRBC Flagged by Analyzer 0 % (0-5); Neutrophil # 15.87 X10^3/uL (2.7-7.7); Neutrophil % 95.2 % (47-70); POSITIVE DIFFERENTIAL YES; Platelet Count 505 K/mm3 (150-450); RBC Distribution Width CV 14.8 % (11.6-14.6); RBC Distribution Width SD 47.3 fl (35.1-43.9); Red Blood Count 4.05 M/mm3 (4.2-5.4); White Blood Count 16.7 K/mm3 (4.4-11.0)
[2022-06-05] MEDS: Ipratropium/Albuterol Sulfate 3 ML AMPUL.NEB INHALATION ×2 (07:20→20:02)
[2022-06-05 07:22] LABS: Differential Indicated SCAN CRITERIA MET
[2022-06-05 07:47] LABS: Anion Gap 8 (5-15); BUN 25 mg/dL (7-18); BUN/Creat Ratio 26.8 RATIO (10-20); Calcium,Total 8.7 mg/dL (8.5-10.1); Chloride 104 mmol/L (98-107); Creatinine, Serum 0.93 mg/dL (0.55-1.02); EST Glomerular Filtration Rate 62 mL/min (>60); Est Glom Filt Rate - Afr Amer 75 mL/min (>60); Estimated Creatinine Clearance 43.05 ml/min; Glucose 380 mg/dL (74-106); Sodium Level 134 mmol/L (136-145); T4 Free Direct 1.68 ng/dL (0.76-1.46); Thyroid Stim Hormone (TSH) 0.04 uIU/mL (0.358-3.74)
[2022-06-05 07:58] LABS: Platelet Estimate SLT INC (ADEQ); Red Cell Morphology NORM C+C NORMAL (NORM C&C)
[2022-06-05] MEDS: Metoprolol(XL)Succ 50 MG Tablet PO (08:20)
[2022-06-05] MEDS: Lisinopril 10 MG Tablet PO (08:20)
[2022-06-05] MEDS: Rivaroxaban 20 MG Tablet PO (08:21)
[2022-06-05] MEDS: amLODIPine 5 MG Tablet PO (08:22)
[2022-06-05] MEDS: Tolterodine Tartrate 2 MG CAP.SA PO (08:22)
[2022-06-05] MEDS: guaiFENesin 1,200 MG Tablet 1200 MG PO ×2 (08:22→21:59)
[2022-06-05] MEDS: Insulin Lispro 100 UNIT/ML INSULN.PEN 13 UNIT SC ×3 (08:34→17:06)
[2022-06-05] MEDS: Insulin Lispro 100 UNIT/ML INSULN.PEN SC ×3 (08:34→21:57)
[2022-06-05 08:45] LABS: Bacteria 0 SEEN /hpf (None Seen); Mucous, Urine 0 SEEN /hpf (<or=2+); Red Blood Cells-Urine 0 SEEN /hpf (0-5); White Blood Cells 0 SEEN /hpf (0-5)
[2022-06-05 08:46] LABS: Color, Urine Yellow (Yellow); Glucose, Dipstick 1000 mg/dl (Normal); Ketone-Dipstick 50 mg/dl (Negative); Leukocyte Esterase-Dipstick Negative /ul (Negative); Nitrite-Dipstick Negative (Negative); Occult Blood-Urine Negative /ul (Negative); Protein-Dipstick Negative (Negative); Specific Gravity, Urine 1.015 (1.002-1.030); Urine Bilirubin Dipstick Negative (Negative); Urine Clarity Clear (Clear); Urine Urobilinogen Normal (Normal)
[2022-06-05 08:56] LABS: Squamous Epithelial Cells - UA 0-5 SEEN /hpf (5-10)
[2022-06-05 10:50] LABS: Bedside Glucose 417 mg/dL (74-106)
[2022-06-05 12:30] LABS: Bedside Glucose 366 mg/dL (74-106)
[2022-06-05] MEDS: Ensure Clear 120 ML Liquid PO ×2 (17:06→21:56)
[2022-06-05] MEDS: Insulin Lispro 100 UNIT/ML INSULN.PEN 25 UNIT SC (17:33)
--- NOTE | 2022-06-05 17:38 | PCM.HOSP.N ---
Hospitalist Note Patient was seen and examined today, she is currently on oxygen at 4 L/min-she states she uses oxygen at 2 to 3 L/min at home. I did not detect any expiratory wheezes today, patient's blood sugar elevated over 500 this afternoon, I think it is better at this time to stop the patient's IV corticosteroids due to her elevated blood sugars. Patient will remain on IV antibiotics at this time, I talked with her significant other who was in the room at the time my examination today.
--- NOTE | 2022-06-05 18:36 | CASEMGMT ---
Face to Face with patient for initial transition planning/care coordination assessment. KRISTINE ALEMAN introduced self and role at [facility], voices understanding. Pt sitting up in chair and agreeable to discussion. Care providers, pharmacy, and demographics verified. PCP: Zeyad Specialists: None Preferred Pharmacy: [facility] Insurance: [facility] A/B with AARP supplement Prescription Benefit: Yes LNOK: Son, Andrea (lives in [place]) Living Arrangements: Pt lives with a friend, Don in a single story home without steps to enter. Pt states she is independent with ADLS and household tasks. Transportation: Pt drives as does her friend DME: tub/shower chair, O2 at 2l/min from [facility] SNF/HH: pt denies any previous need for SNF or HH skilled services Plan: Return home with assistance of her friend. Discussed palliative care services and potential HH services. Pt was agreeable to palliative care and HH if needed. Dr. Khan notified and agreeable to consult with palliative care. List of home health providers including quality and resource use data and consistent with pt's insurance network, medical needs, and geographic region provided. Will continue to monitor and assist with discharge disposition coordination as needs identified. Brannon Abdul RN CM
[2022-06-05] MEDS: Insulin Glargine-YFGN 100 UNIT/ML Pen 35 UNIT SC (21:57)
[2022-06-05] MEDS: Atorvastatin Calcium 10 MG Tablet 5 MG PO (22:00)
[2022-06-05 22:01] LABS: Bedside Glucose 484 mg/dL (74-106)
[2022-06-06] VITALS (14 sets, daily range): BP systolic 107–144; BP diastolic 43–68; PULSE 86–98; RESP 16–23; TEMP 36.6–37.1; O2SAT 95–96
[2022-06-06] MEDS: Levothyroxine 150 MCG Tablet PO (06:40)
[2022-06-06 07:49] LABS: Absolute Lymphocyte Count 0.98 X10^3/uL (0.83-4.51); Absolute Neutrophil Count 12.4 X10^3/uL (2.0-7.7); Basophil# 0.02 X10^3/uL; Basophil% 0.1 % (0-1); Hematocrit 31.1 % (37-47); Hemoglobin 9.7 g/dL (12.0-15.0); Lymphocyte # 0.98 X10^3/ul (0.83-4.51); Lymphocyte % 6.9 % (19-41); Mean Corp Hgb Conc 31.2 g/dL (32-36); Mean Corpuscular Hgb 26.1 pg (27.0-32.0); Mean Corpuscular Volume 83.6 fL (81-99); Monocyte# 0.64 X10^3/uL; Monocyte% 4.5 % (0-10); NRBC Flagged by Analyzer 0 % (0-5); Neutrophil # 12.44 X10^3/uL (2.7-7.7); Platelet Count 502 K/mm3 (150-450); RBC Distribution Width CV 14.8 % (11.6-14.6); Red Blood Count 3.72 M/mm3 (4.2-5.4); White Blood Count 14.2 K/mm3 (4.4-11.0)
[2022-06-06] MEDS: Ipratropium/Albuterol Sulfate 3 ML AMPUL.NEB INHALATION ×4 (07:51→19:00)
--- NOTE | 2022-06-06 08:00 | PCM.PN.HOSP ---
Subjective Subjective Patient was seen and examined today, her white blood cell count today was 14.2. Patient remains on 4 L nasal cannula oxygen, she appears comfortable at rest. Nursing was not able to obtain a urine sample for strep and Legionella. Patient has no complaints of any fever or chills. Objective Data Objective Data Vital Signs: Vital Signs Temp Pulse Resp BP Pulse Ox O2 Del Method O2 Flow Rate 98.5 F 95 16 144/68 H 96 Nasal Cannula 4 06/06/22 06:36 06/06/22 07:00 06/06/22 06:36 06/06/22 06:36 06/06/22 07:48 06/06/22 07:48 06/06/22 07:48 Oxygen Flow Rate (L/min) 4 Oxygen Delivery Method Nasal Cannula Weight: 66.4 kg Body Mass Index (BMI) 24.5 Intake & Output: Intake and Output for Last 24 Hours 06/04/22 06/05/22 06/06/22 23:59 23:59 23:59 Intake Total 1536.92 / 2016.92 680 / 680 Output Total 0 / 600 600 / 600 Balance 1536.92 / 1416.92 80 / 80 Lab / Micro Data Result Diagrams: 06/06/22 07:40 06/05/22 07:10 Labs: Laboratory Results - last 24 hr 06/04/22 08:35: Urine Color Yellow, Urine Clarity Clear, Urine pH 5.0, Ur Specific [place] 1.015, Urine Protein Negative, Urine Glucose (UA) 1000 H, Urine Ketones 50 H, Urine Occult Blood Negative, Urine Nitrite Negative, Urine Bilirubin Negative, Urine Urobilinogen Normal, Ur Leukocyte Esterase Negative, Urine RBC 0 SEEN, Urine WBC 0 SEEN, Ur Squamous Epith Cells 0-5 SEEN, Urine Bacteria 0 SEEN, Urine Mucus 0 SEEN 06/05/22 08:10: POC Glucose 417 H 06/05/22 11:21: POC Glucose 366 H 06/05/22 21:41: POC Glucose 484 H* 06/06/22 07:40: WBC 14.2 H, RBC 3.72 L, Hgb 9.7 L, Hct 31.1 L, MCV 83.6, MCH 26.1 L, MCHC 31.2 L, RDW Std Deviation 45.0 H, RDW Coeff of Kristyn 14.8 H, Plt Count 502 H, MPV 10.0, Immature Gran % (Auto) 0.500, Neut % (Auto) 88.0 H, Lymph % (Auto) 6.9 L, [place] % (Auto) 4.5, Eos % (Auto) 0.0, Baso % (Auto) 0.1, Absolute Neuts (auto) 12.4 H, Absolute Lymphs (auto) 0.98, Nucleated RBC % 0 Micro: Microbiology 06/05/22 03:35 Mucosa - Nose Respiratory Panel (PCR) - Final 06/05/22 00:29 Nasal Secretion SARS-CoV-2 & FLU Antigen (Rapid) - Final Rhythm Strip Rhythm Strip: Sinus Tach Rate: 110 Ectopy: None Physical Exam Const alert, oriented x3 and no apparent distress HEENT head/scalp atraumatic and moist oral mucous membranes Neck supple and no JVD Resp normal respiratory effort, no retractions and no use of accessory muscles Resp Narrative: Breath sounds are distant bilaterally Cardio regular rate, regular rhythm, S1 normal heart sound and S2 normal heart sound GI normal to inspection, nondistended, normoactive bowel sounds, soft to palpation and non-tender Extremity normal to inspection and no clubbing, cyanosis or edema Neuro oriented x3, CN's II-XII intact bilaterally and moves all extremities Sensorium / Orientation: awake, alert, oriented to person and oriented to place Speech: speech normal Psych affect normal Assessment & Plan Assessment/Plan (1) Bilateral pneumonia: PLAN: Plan 1. Bilateral community-acquired pneumonia-probably bacterial in nature-continue current antibiotic coverage #2 acute on chronic hypoxic respiratory failure secondary to #1-oxygen will be weaned if possible, patient states she uses 2 L nasal cannula oxygen at all times at home. #3 chronic obstructive pulmonary disease-I do not believe the patient has an exacerbation of COPD at this time, she is not wheezing #4 type 2 diabetes-fingerstick blood sugars will be continued, sliding scale insulin per scale #5 hypothyroidism-patient is on Synthroid #6 hyperlipidemia-patient is on a statin #7 essential hypertension-patient is on amlodipine #8 chronic use of anticoagulant-patient is on Xarelto, she has a past history of pulmonary embolism, on Xarelto will be continued Charges/Coding Visit Charges Inpatient E&M: 22611 Subs Hosp L2
[2022-06-06] MEDS: Insulin Lispro 100 UNIT/ML INSULN.PEN 15 UNIT SC ×3 (08:03→16:55)
[2022-06-06] MEDS: Insulin Lispro 100 UNIT/ML INSULN.PEN SC ×2 (08:04→11:13)
[2022-06-06] MEDS: Tolterodine Tartrate 2 MG CAP.SA PO (08:04)
[2022-06-06] MEDS: Lisinopril 10 MG Tablet PO (08:04)
[2022-06-06] MEDS: guaiFENesin 1,200 MG Tablet 1200 MG PO ×2 (08:05→21:42)
[2022-06-06] MEDS: Rivaroxaban 20 MG Tablet PO (08:05)
[2022-06-06] MEDS: Metoprolol(XL)Succ 50 MG Tablet PO (08:05)
[2022-06-06] MEDS: amLODIPine 5 MG Tablet PO (08:07)
[2022-06-06 09:26] LABS: Bedside Glucose 233 mg/dL (74-106)
[2022-06-06] MEDS: Ensure Clear 120 ML Liquid PO ×3 (10:24→21:39)
[2022-06-06 12:35] LABS: Bedside Glucose 262 mg/dL (74-106)
[2022-06-06 17:00] LABS: Bedside Glucose 111 mg/dL (74-106)
[2022-06-06] MEDS: Atorvastatin Calcium 10 MG Tablet 5 MG PO (21:42)
[2022-06-06 22:16] LABS: Bedside Glucose 128 mg/dL (74-106)
[2022-06-07] VITALS (8 sets, daily range): BP systolic 113–144; BP diastolic 46–55; PULSE 79–92; RESP 14–20; TEMP 35.9–36.5; O2SAT 90–97
[2022-06-07 03:41] LABS: Bedside Glucose 283 mg/dL (74-106)
--- NOTE | 2022-06-07 05:30 | RAD_ITS ---
STUDY: X-RAY CHEST REASON FOR EXAM: Female, 76 years old. pneumonia TECHNIQUE: COMPARISON: Recent CT dated 06/04/2022 FINDINGS: Consolidations are noted in the lower lungs and lingula. There are small bilateral effusions. Normal size heart. Normal mediastinum and uli. Normal visualized pulmonary arteries. Normal visualized aortic arch and descending thoracic aorta. A compression fracture of indeterminate age is noted in the mid thoracic spine.. Normal visualized ribs, clavicles, and shoulders. There is no demonstrated abnormality of the visualized soft tissue structures of the upper abdomen. RAD/Chest PA and Lateral IMPRESSION: Consolidations in the lower lungs and lingula. Small effusions. Compression fracture of indeterminate age in the mid thoracic spine. Electronically Signed: Chaitanya Olmedo MD at 9:55 EDT ,
[2022-06-07 05:50] LABS: Absolute Lymphocyte Count 2.01 X10^3/uL (0.83-4.51); Absolute Neutrophil Count 8.9 X10^3/uL (2.0-7.7); Basophil# 0.04 X10^3/uL; Basophil% 0.3 % (0-1); Eosinophil# 0.04 X10^3/uL; Eosinophils% 0.3 % (0-5); Hemoglobin 9.7 g/dL (12.0-15.0); Lymphocyte # 2.01 X10^3/ul (0.83-4.51); Mean Corp Hgb Conc 32.3 g/dL (32-36); Mean Corpuscular Hgb 27.1 pg (27.0-32.0); Mean Corpuscular Volume 83.8 fL (81-99); Mean Platelet Vol. 10.5 fl (6.2-12.0); Monocyte% 6.8 % (0-10); NRBC Flagged by Analyzer 0 % (0-5); Neutrophil # 8.88 X10^3/uL (2.7-7.7); Neutrophil % 75.1 % (47-70); Platelet Count 483 K/mm3 (150-450); RBC Distribution Width SD 46.2 fl (35.1-43.9); Red Blood Count 3.58 M/mm3 (4.2-5.4); White Blood Count 11.8 K/mm3 (4.4-11.0)
[2022-06-07] MEDS: Insulin Lispro 100 UNIT/ML INSULN.PEN SC (06:20)
[2022-06-07] MEDS: Insulin Lispro 100 UNIT/ML INSULN.PEN 15 UNIT SC ×2 (06:21→10:25)
[2022-06-07] MEDS: Levothyroxine 150 MCG Tablet PO (06:25)
[2022-06-07 06:46] LABS: Bedside Glucose 310 mg/dL (74-106)
[2022-06-07] MEDS: Ipratropium/Albuterol Sulfate 3 ML AMPUL.NEB INHALATION ×2 (06:50→10:46)
[2022-06-07 07:05] LABS: Bedside Glucose > 500 mg/dL (74-106)
[2022-06-07 07:05] LABS: Bedside Glucose > 500 mg/dL (74-106)
[2022-06-07] MEDS: Ensure Clear 120 ML Liquid PO (10:22)
[2022-06-07] MEDS: Tolterodine Tartrate 2 MG CAP.SA PO (10:22)
[2022-06-07] MEDS: guaiFENesin 1,200 MG Tablet 1200 MG PO (10:23)
[2022-06-07] MEDS: amLODIPine 5 MG Tablet PO (10:23)
[2022-06-07] MEDS: Lisinopril 10 MG Tablet PO (10:23)
--- NOTE | 2022-06-07 10:24 | CASEMGMT ---
RN LOVE in to discuss discharge planning with patient and significant other, Don. Patient and Don agreeable to C and prefer [facility] as she has had them in the past. Nursing to walk patient on 2lpm to see if patient requires additional oxygen at discharge. RN LOVE called Amber and left message regarding referral for SN, PT, OT. CM will continue to follow this patient and plan for a safe discharge.
[2022-06-07] MEDS: Rivaroxaban 20 MG Tablet PO (10:25)
[2022-06-07] MEDS: Metoprolol(XL)Succ 50 MG Tablet PO (10:26)
--- NOTE | 2022-06-07 10:31 | DCINST_ITS ---
Discharge Instructions Diet Discharge Diet: 1800 Calorie Control Diet Activity Discharge Activity: Return to Normal Activity Follow Up Care Test Results: Test results from this visit will be discussed in further detail at your follow- up appointment, if applicable. Discharge Plan Admission Admit Date/Time: 06/05/22 01:55 Primary Reason for Your Visit: pneumonia Attending Provider: Javy Khan Primary Care Provider: Shena Jeffers Consulting Providers: Ronaldo Hickey Instructions Additional Instructions / Restrictions: Resume home inhalers as before Note your increased insulin dosage on your discharge instructions Discharge Orders/Prescriptions Prescriptions: New insulin glargine-yfgn 100 unit/mL (3 mL) Insulin Pen 45 unit subcut QHS Qty: 0 0RF insulin lispro [Humalog KwikPen Insulin] 100 unit/mL Insulin Pen 15 unit subcut TIDAC Qty: 0 0RF cefdinir 300 mg capsule 300 mg PO BID Qty: 14 0RF Rx Instructions: start 06/08/22 Continued amlodipine-benazepril [Lotrel] 5-10 mg capsule 1 cap PO DAILY oxybutynin chloride 5 mg tablet 10 mg PO DAILY metoprolol succinate [Toprol XL] 50 mg tablet extended release 24 hr 50 mg PO DAILY Xarelto 20 mg tablet 20 mg PO insulin lispro [Humalog KwikPen Insulin] 100 unit/mL Insulin Pen See Protocol subcut ACHS Qty: 0 0RF Protocol: 4. Sliding Scale Insulin High-Med Dosing Condition: 150-199 mg/dl = 2 units Condition: 200-259 mg/dl = 4 units Condition: 260-324 mg/dl = 6 units Condition: 325-374 mg/dl = 8 units Condition: 375-409 mg/dl = 10 units Condition: 410-449 mg/dl = 11 units Condition: Greater than 449 call physician Protocol Text: - Use for Total Daily Dose of Insulin 56-80 units - Patient who are insulin resistant or septic HIGH MEDIUM DOSING ALGORITHM simvastatin 10 mg tablet 10 mg PO DAILY Qty: 30 0RF levothyroxine 150 mcg tablet 150 mcg PO DAILY Qty: 30 5RF Discontinued albuterol sulfate [Proventil HFA] 90 mcg/actuation HFA aerosol inhaler 1 puff inhalation ONCE PRN (Reason: shortness of breath or wheezing) insulin lispro [Humalog KwikPen Insulin] 100 unit/mL Insulin Pen 13 unit subcut TIDAC Qty: 1 5RF insulin glargine [Lantus U-100 Insulin] 100 unit/mL solution 25 unit subcut QPM 30 Days Qty: 3 5RF Rx Instructions: Please provide enough pens for 30 day supply and include pen needles. Hold if glucose less than 130 mg/dl Eliquis DVT-PE Treat 30D Start 5 mg (74 tabs) tablets,dose pack 5 mg PO BID Qty: 74 0RF Referrals / Follow Up: Shena Jeffers DO [Primary Care Provider] - Within 2 Weeks Disposition Disposition (needs filled in before D/C Order can be placed): Home Health Service
[2022-06-07 10:55] LABS: Bedside Glucose 115 mg/dL (74-106)
--- NOTE | 2022-06-07 11:02 | DS.PCM_ITS ---
Providers Date of Admission: 06/05/22 Date of Discharge: 06/07/22 Primary Care Physician: Dr. Shena Jeffers DO Reason For Visit: R/L PNEUMONIA Diagnosis Discharge Diagnosis (1) Bilateral pneumonia: Status: Acute Code(s): J18.9 - Pneumonia, unspecified organism Plan 1. Bilateral community-acquired pneumonia-probably bacterial in nature-continue current antibiotic coverage #2 acute on chronic hypoxic respiratory failure secondary to #1-oxygen will be weaned if possible, patient states she uses 2 L nasal cannula oxygen at all times at home. #3 chronic obstructive pulmonary disease-I do not believe the patient has an exacerbation of COPD at this time, she is not wheezing #4 type 2 diabetes-fingerstick blood sugars will be continued, sliding scale insulin per scale #5 hypothyroidism-patient is on Synthroid #6 hyperlipidemia-patient is on a statin #7 essential hypertension-patient is on amlodipine #8 chronic use of anticoagulant-patient is on Xarelto, she has a past history of pulmonary embolism, on Xarelto will be continued #9 dementia Medications at Discharge Home Medications amlodipine 5 mg-benazepril 10 mg capsule (Lotrel) 1 cap PO DAILY bp 09/08/21 metoprolol succinate 50 mg tablet,extended release 24 hr (Toprol XL) 50 mg PO DAILY heartrate 09/08/21 oxybutynin chloride 5 mg tablet 10 mg PO DAILY bladder 09/08/21 insulin lispro 100 unit/mL subcutaneous pen (Humalog KwikPen (U-100) Insulin) See Protocol subcut ACHS #0 mL 01/30/22 simvastatin 10 mg tablet 10 mg PO DAILY #30 tabs 01/31/22 rivaroxaban 20 mg tablet (Xarelto) 20 mg PO 04/23/22 levothyroxine 150 mcg tablet 150 mcg PO DAILY #30 tabs 04/28/22 cefdinir 300 mg capsule 300 mg PO BID #14 caps 06/07/22 insulin glargine-yfgn 100 unit/mL (3 mL) subcutaneous pen 45 unit (0.45 mL) subcut QHS #0 mL 06/07/22 insulin lispro 100 unit/mL subcutaneous pen (Humalog KwikPen (U-100) Insulin) 15 unit (0.15 mL) subcut TIDAC #0 mL 06/07/22 Hospital Course Operations None Procedures None Summary of Care Provided Minutes Spent on Discharge: 31 Hospital Course: This 76-year-old white female was seen in the emergency room at [facility] with complaints of fatigue, vomiting, and feeling unwell. Patient stated that she had a previous chest x-ray done as an outpatient which showed evidence of pneumonia and she had been prescribed antibiotics that day. Work-up in the emergency room included a CTA of the chest which showed evidence of bilateral infiltrates suggestive of pneumonia, there is no evidence of pulmonary emboli, patient required 4 L of oxygen to maintain her pulse ox above 90%. Patient's white blood cell count was elevated at 16.4, glucose was 171, and troponin was unremarkable. Patient was admitted for bilateral pneumonia, the etiology of the pneumonia was unknown, patient's urine antigen for strep and Legionella was negative. She was treated with IV Zithromax and Rocephin, she improved during her hospital stay and on 06/07/2022, she was seen and examined: On examination she appeared frail and older than her stated age, she does not appear to be in any distress. Vital signs as documented. Skin warm and dry and without overt rashes. Neck without JVD, thyroid appears normal, trachea is midline, neck is supple. Lungs clear, normal air movement was noted. Heart exam notable for regular rhythm, normal sounds and absence of murmurs, rubs or gallops. Abdomen unremarkable and without evidence of organomegaly, masses, or abdominal aortic enlargement, bowel sounds are present in all 4 quadrants, no abdominal tenderness was noted. Extremities nonedematous, no cyanosis was noted, no clubbing was noted. Neuro: Cranial nerves II through XII are grossly intact, no focal motor deficits were noted, sensation to light touch and pinprick is intact, motor exam 5/5 throughout. Psych: Patient is alert and shows some confusion. Patient was discharged home in stable condition on 06/07/2022 Weight / BMI Weight Weight: 66 kg Body Mass Index (BMI) 24.5 ABG / Lab / Microbiology Data Result Diagrams: 06/07/22 04:48 06/05/22 07:10 Laboratory: Laboratory Results - last 24 hr 06/05/22 17:02: POC Glucose > 500 H* 06/05/22 17:04: POC Glucose > 500 H* 06/06/22 11:11: POC Glucose 262 H 06/06/22 16:11: POC Glucose 111 H 06/06/22 21:35: POC Glucose 128 H 06/07/22 03:22: POC Glucose 283 H 06/07/22 04:48: WBC 11.8 H, RBC 3.58 L, Hgb 9.7 L, Hct 30.0 L, MCV 83.8, MCH 27.1, MCHC 32.3, RDW Std Deviation 46.2 H, RDW Coeff of Kristyn 15.0 H, Plt Count 483 H, MPV 10.5, Immature Gran % (Auto) 0.500, Neut % (Auto) 75.1 H, Lymph % (Auto) 17.0 L, [place] % (Auto) 6.8, Eos % (Auto) 0.3, Baso % (Auto) 0.3, Absolute Neuts (auto) 8.9 H, Absolute Lymphs (auto) 2.01, Nucleated RBC % 0 06/07/22 06:17: POC Glucose 310 H 06/07/22 10:15: POC Glucose 115 H Microbiology: Microbiology 06/04/22 08:35 Urine, Clean Catch Urine Culture - Final Culture exhibits no growth. 06/05/22 01:50 Blood Culture (Wb) - Anticubital Right Blood Culture - Preliminary No growth in 48 hours. 06/04/22 23:25 Blood Culture (Wb) - Left Forearm Blood Culture - Preliminary No growth in 48 hours. 06/06/22 Unknown Urine, Random Legionella Antigen - Final 06/06/22 Unknown Urine, Random Streptococcus pneumoniae Antigen (M - Final 06/05/22 03:35 Mucosa - Nose Respiratory Panel (PCR) - Final 06/05/22 00:29 Nasal Secretion SARS-CoV-2 & FLU Antigen (Rapid) - Final Radiography Diagnostic Testing: Radiology Impression Chest X-Ray 06/07/22 05:30 IMPRESSION: Consolidations in the lower lungs and lingula. Small effusions. Compression fracture of indeterminate age in the mid thoracic spine. Electronically Signed: Chaitanya Olmedo MD at 9:55 EDT Reading Location ID and State: [facility], later [facility] / [place] Tel , Service support , D/C Instructions Discharge Diet: 1800 Calorie Control Diet Meaningful Use Info Meaningful Use Diagnoses (Choose all that apply): None applicable Discharge Plan Admission Admit Date/Time: 06/05/22 01:55 Primary Reason for Your Visit: pneumonia Attending Provider: Javy Khan Primary Care Provider: Shena Jeffers Consulting Providers: Ronaldo Hickey Instructions Additional Instructions / Restrictions: Resume home inhalers as before Note your increased insulin dosage on your discharge instructions Discharge Orders/Prescriptions Prescriptions: New insulin glargine-yfgn 100 unit/mL (3 mL) Insulin Pen 45 unit subcut QHS Qty: 0 0RF insulin lispro [Humalog KwikPen Insulin] 100 unit/mL Insulin Pen 15 unit subcut TIDAC Qty: 0 0RF cefdinir 300 mg capsule 300 mg PO BID Qty: 14 0RF Rx Instructions: start 06/08/22 Continued amlodipine-benazepril [Lotrel] 5-10 mg capsule 1 cap PO DAILY oxybutynin chloride 5 mg tablet 10 mg PO DAILY metoprolol succinate [Toprol XL] 50 mg tablet extended release 24 hr 50 mg PO DAILY Xarelto 20 mg tablet 20 mg PO insulin lispro [Humalog KwikPen Insulin] 100 unit/mL Insulin Pen See Protocol subcut ACHS Qty: 0 0RF Protocol: 4. Sliding Scale Insulin High-Med Dosing Condition: 150-199 mg/dl = 2 units Condition: 200-259 mg/dl = 4 units Condition: 260-324 mg/dl = 6 units Condition: 325-374 mg/dl = 8 units Condition: 375-409 mg/dl = 10 units Condition: 410-449 mg/dl = 11 units Condition: Greater than 449 call physician Protocol Text: - Use for Total Daily Dose of Insulin 56-80 units - Patient who are insulin resistant or septic HIGH MEDIUM DOSING ALGORITHM simvastatin 10 mg tablet 10 mg PO DAILY Qty: 30 0RF levothyroxine 150 mcg tablet 150 mcg PO DAILY Qty: 30 5RF Discontinued albuterol sulfate [Proventil HFA] 90 mcg/actuation HFA aerosol inhaler 1 puff inhalation ONCE PRN (Reason: shortness of breath or wheezing) insulin lispro [Humalog KwikPen Insulin] 100 unit/mL Insulin Pen 13 unit subcut TIDAC Qty: 1 5RF insulin glargine [Lantus U-100 Insulin] 100 unit/mL solution 25 unit subcut QPM 30 Days Qty: 3 5RF Rx Instructions: Please provide enough pens for 30 day supply and include pen needles. Hold if glucose less than 130 mg/dl Eliquis DVT-PE Treat 30D Start 5 mg (74 tabs) tablets,dose pack 5 mg PO BID Qty: 74 0RF Referrals / Follow Up: Meme Potter NP-C [Med Staff - Adv Practice Prof] - 06/11/22 11:30 am Disposition Disposition (needs filled in before D/C Order can be placed): Home Health Service Charges/Coding Visit Charges Inpatient E&M: 32386 Disch Hosp
--- NOTE | 2022-06-07 11:28 | PHA.DC.MC ---
Addendum entered and electronically signed by Melsisa Perez 06/07/22 11:39: Counseled by student records coordinator, Johann. Original Note: Pharmacy Service has performed discharge medication reconciliation and counseling for this patient. 1. CEFDINIR 300MG PO BID X 7 DAYS The patient's discharge medication list was reviewed for discrepancies and discrepancies were resolved. Home Medications amlodipine 5 mg-benazepril 10 mg capsule (Lotrel) 1 cap PO DAILY bp 09/08/21 metoprolol succinate 50 mg tablet,extended release 24 hr (Toprol XL) 50 mg PO DAILY heartrate 09/08/21 oxybutynin chloride 5 mg tablet 10 mg PO DAILY bladder 09/08/21 insulin lispro 100 unit/mL subcutaneous pen (Humalog KwikPen (U-100) Insulin) See Protocol subcut ACHS #0 mL 01/30/22 simvastatin 10 mg tablet 10 mg PO DAILY #30 tabs 01/31/22 rivaroxaban 20 mg tablet (Xarelto) 20 mg PO 04/23/22 levothyroxine 150 mcg tablet 150 mcg PO DAILY #30 tabs 04/28/22 cefdinir 300 mg capsule 300 mg PO BID #14 caps 06/07/22 insulin glargine-yfgn 100 unit/mL (3 mL) subcutaneous pen 45 unit (0.45 mL) subcut QHS #0 mL 06/07/22 insulin lispro 100 unit/mL subcutaneous pen (Humalog KwikPen (U-100) Insulin) 15 unit (0.15 mL) subcut TIDAC #0 mL 06/07/22 The patient was counseled on the following discharge medications and changes in medications for homegoing were reviewed. The Reason for Use, instructions for use, and potential side effects were reviewed for all new medications. The patient's questions regarding all of their medications were answered.
--- NOTE | 2022-06-07 11:50 | CASEMGMT ---
Palliative order was placed previously and order e-mailed to palliative at this time. Call from Amber at [facility] and she states they can accept pt with SOC 06/08/22 and pt updated. Pt was ambulated on 2L nc and per [employer], pt's order is for 2-3L continuous. Pt does not need new order for oxygen. Pt voices no further questions/concerns/needs. Yas CARMONA CM
--- NOTE | 2022-06-07 11:52 | CASEMGMT ---
[facility] Palliative care notified of referral and pt's discharge for follow-up as an outpt. Brannon Abdul RN CM
--- NOTE | 2022-06-07 13:34 | NURSING ---
All charting and medication administration completed by Albaro Curry RN done under the supervision of this RN.
== END 2022-06-07 13:18 | disposition home health service (06) | DRG 193 ==
LOC: ED 06-05 00:47 → PCU 06-05 02:36
PROVIDERS: Admitting Provider Internal Medicine; Emergency Provider Emergency Medicine; PCP Internal Medicine; Visit Provider Internal Medicine
DX: J15.9 Unspecified bacterial pneumonia (principal); J96.21 Acute and chronic respiratory failure with hypoxia; G93.49 Other encephalopathy; I82.512 Chronic embolism and thrombosis of left femoral vein; I82.522 Chronic embolism and thrombosis of left iliac vein; F03.90 Unspecified dementia, unspecified severity, without behavioral disturbance, psychotic disturbance, mood disturbance, and anxiety; E11.65 Type 2 diabetes mellitus with hyperglycemia; J43.9 Emphysema, unspecified; Z79.4 Long term (current) use of insulin; E06.3 Autoimmune thyroiditis; I10 Essential (primary) hypertension; E78.5 Hyperlipidemia, unspecified; F32.A Depression, unspecified; R32 Unspecified urinary incontinence; Z66 Do not resuscitate; Z79.01 Long term (current) use of anticoagulants; Z99.81 Dependence on supplemental oxygen; Z79.899 Other long term (current) drug therapy; Z86.711 Personal history of pulmonary embolism; Z87.891 Personal history of nicotine dependence
CPT/HCPCS: 36415; 36600; 70450; 71046; 71275; 80048; 80053; 81001; 82803; 82962; 83605; 83735; 83880; 84100; 84439; 84443; 84484; 85025; 85027; 87040; 87086; 87428; 87449; 87633; 87635; 87641; 93005; 93970; 94640; 94762; 97110; 97162; 97165; 97530; 97535; 97802; 99251; 99285; 99406; J7030; J7040; J7050; Q9967; A4216; G0463; J0696; J2405; U0003; U0005

== ENCOUNTER → 2022-06-04 | Outpatient (CLI) | payer MEDICARE, OTHER, SELFPAY ==
--- NOTE | 2022-06-04 12:10 | CT_ITS ---
STUDY: CTA CHEST REASON FOR EXAM: Female, 76 years old. Shortness of breath. Assess for a pulmonary embolus. RADIATION DOSAGE (If Supplied By Facility): CTDIvol = ( 11.70 ) mGy, DLP = ( 219.46 ) mGycm TECHNIQUE: The examination was performed with the intravenous administration of IV 75mL Isovue-370. Post-processing of the angiographic images was performed, with multiplanar reformation and 3D reconstruction. Individualized dose optimization techniques were used for this CT. COMPARISON: 01/21/2022 FINDINGS: There are bilateral emphysematous changes. There is consolidation within the lingula and the lower lobes. There is a small subpleural focus of atelectasis and/or scarring within the right upper lobe. Normal enhancement of the main pulmonary artery and right and left pulmonary arteries. Normal enhancement of the bilateral peripheral pulmonary arteries. There is no demonstrated pulmonary embolism. There is atherosclerotic calcification of the aortic arch. There is no demonstrated aortic dissection. There are calcifications of the coronary arteries. Normal mediastinum. Normal hilar regions. Normal visualized trachea and bronchi. There are bilateral breast implants in place. There are degenerative changes of thoracic spine. The bones are diffusely demineralized. There are stable compression deformities of T6 and T7. Normal visualized upper abdomen. CT/CTA Chest W/WO Contrast IMPRESSION: No demonstrated pulmonary embolism or arterial dissection. Consolidation within the lingula and lower lobes. Emphysema. Atherosclerosis. Electronically Signed: Di Robles MD at 12:53 EDT ,
== END | disposition home or self-care (01) ==
PROVIDERS: PCP Internal Medicine; Referring Provider Internal Medicine; Visit Provider Internal Medicine
DX: R09.89 Other specified symptoms and signs involving the circulatory and respiratory systems (principal)
CPT/HCPCS: 71275; Q9967; A4216

== ENCOUNTER → 2022-08-11 | Outpatient (CLI) | payer MEDICARE, OTHER, SELFPAY ==
[2022-08-11 16:06] LABS: T4 Free Direct 1.45 ng/dL (0.76-1.46); Thyroid Stim Hormone (TSH) 0.23 uIU/mL (0.358-3.74)
== END | disposition home or self-care (01) ==
LOC: LAB 13:54
PROVIDERS: PCP Internal Medicine; Referring Provider Nurse Practitioner Family; Visit Provider Nurse Practitioner Family
DX: E03.8 Other specified hypothyroidism (principal); E06.3 Autoimmune thyroiditis
CPT/HCPCS: 36415; 84439; 84443

== ENCOUNTER 2022-09-08 07:49 | Inpatient (IN) | payer MEDICARE, OTHER, SELFPAY ==
[2022-09-08 07:50] VITALS: BP 141/54; PULSE 125; RESP 17; TEMP 36.6; O2SAT 95; BMI 26.0
--- NOTE | 2022-09-08 08:19 | RAD_ITS ---
STUDY: X-RAY CHEST REASON FOR EXAM: Female, 77 years old. Weakness. Hyperglycemia. TECHNIQUE: Single AP portable view of the chest. COMPARISON: Comparison is made with prior study dated 01/27/2022. FINDINGS: EKG electrode are seen. Stable rim calcification of the bilateral breast implants. Stable mild increased markings at the lung bases suggestive scarring. There is no demonstrated pleural abnormality. Normal size heart. Normal mediastinum and uli. Normal visualized pulmonary arteries. There is atherosclerotic calcification of the aortic arch with tortuosity. There are degenerative changes of the visualized thoracic spine. Normal visualized ribs, clavicles, and shoulders. There is no demonstrated abnormality of the visualized soft tissue structures of the upper abdomen. RAD/Chest 1 View (Portable) IMPRESSION: Findings suggestive of stable scarring at the lung bases. Stable appearance of the bilateral breast implants. Electronically Signed: Ayden Sifuentes MD at 8:54 EST ,
--- NOTE | 2022-09-08 08:29 | EX.ED.DYSGE1 ---
HPI History of Present Illness Chief Complaint: Hyperglycemia Narrative Narrative: 77-year-old female with history of diabetes presenting with nausea and vomiting. She states she believes her blood sugar is too high and this is the source. She states that her vomiting started about 6 AM. Her states he gave her 7 units of Lantus this morning. She normally would take this in the morning. They state that they had trouble getting all hold of their Humalog. They reported that they tried to get a quick prescription on Tuesday but Dr. Jeffers's office did not reach out to them on Tuesday. They state that a prescription was sent to [facility] on Tuesday however they will have the medication to fill it. They state that they have some Humalog at home which is observed and they have been using this but her blood sugar would not come down this morning. Initially it was in the 300s and then was reading high. Patient denies any abdominal pain. She states her nausea feels a little bit better currently. No fever, chills. No body aches. 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 Memory loss On home oxygen therapy Osteopenia Pulmonary embolism, bilateral Smoker Home Medications amlodipine 5 mg-benazepril 10 mg capsule (Lotrel) 1 cap PO DAILY blood pressure 09/08/21 [History Last Taken 09/07/22] rivaroxaban 20 mg tablet (Xarelto) 20 mg PO DAILY blood thinner 04/23/22 [History Last Taken 09/08/22] insulin glargine 100 unit/mL subcutaneous solution (Lantus U-100 Insulin) 10 unit subcut QHS diabetes 09/08/22 [History Last Taken 09/08/22 t] levothyroxine 150 mcg tablet 150 mcg PO DAILY thyroid 09/08/22 [History Last Taken 09/08/22] oxybutynin chloride 10 mg tablet,extended release 24 hr 10 mg PO DAILY bladder 09/08/22 [History Last Taken 09/07/22] simvastatin 10 mg tablet 10 mg PO DAILY cholesterol 09/08/22 [History Last Taken 09/07/22] Allergy/AdvReac Type Severity Reaction Status Date / Time ciprofloxacin [From Cipro] Allergy Intermediate hives Verified 08/11/22 09:29 Sulfa (Sulfonamide Allergy Intermediate hives Verified 08/11/22 09:29 Antibiotics) Family History Father Diabetes Respiratory disease Surgical History S/P insertion of insulin pump Social History household members: significant other and none number of children: 2 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 Smoking Status: Former smoker alcohol intake: current alcohol intake frequency: a few times a month substance use type: does not use ROS ROS ED Constitutional Constitutional ED: Denies chills or fever(s) Eyes Eyes: Denies change in vision or diplopia ENT ENT ED: Denies rhinorrhea or sore throat Cardiovascular Cardiovascular: Denies chest pain or palpitations Respiratory/Chest Respiratory/Chest: Denies cough or dyspnea Gastrointestinal Gastrointestinal: Reports nausea and vomiting; Denies diarrhea Genitourinary Genitourinary ED: Denies dysuria or hematuria Musculoskeletal Musculoskeletal: Denies arthralgias or back pain Integumentary Denies abscess Neurologic Neurologic: Denies headache(s) Psychiatric Psychiatric: Denies anxiety or depression EXAM Physical Exam Const Vital Signs: 09/08/22 07:50 09/08/22 07:54 Temperature 98 F Temperature Source Temporal Pulse Rate 125 H Respiratory Rate 17 Respiratory Effort Normal Non-Labored Respiratory Pattern Normal Blood Pressure 141/54 H Blood Pressure Mean 83 Pulse Ox 95 Oxygen Delivery Method Room Air Positive well nourished General Appearance ED: NAD; Negative for pallor HEENT Reports dry mucous membranes Mouth ED: Yes dry mucous membranes Mouth: dry mucous membranes Eyes PERRL and EOMs intact bilaterally General Eye ED: Negative for pale conjunctiva or scleral icterus Chest Wall inspection of chest normal Resp normal respiratory effort and clear to auscultation bilaterally Auscultation: Negative for rales, rhonchi or wheezes Cardio Rate: tachycardic GI normal to inspection, nondistended, normoactive bowel sounds Neuro oriented x3 and CN's II-XII intact bilaterally Psych mental status grossly normal Skin no rashes or lesions noted and no wounds General Skin Exam: Negative for jaundice or pallor MDM MDM MDM Narrative Medical decision making narrative: Patient presenting with high blood sugars. Blood sugar today in the ER is 524. She was given Zofran and a liter of normal saline. Will obtain blood work. Patient has leukocytosis of 16.2. Hemoglobin hematocrit are stable. Platelets are normal. Creatinine a little bit elevated at 1.29. Electrolytes within normal limits. Glucose was elevated at 643 without an anion gap. She does have small ketones. EKG was obtained and this shows a sinus tachycardia with a rate of 115 bpm without sign of ischemic change or dysrhythmia. Given the increased creatinine and elevated glucose she was given a second liter of IV fluids. Chest x-ray was obtained and on my interpretation shows no acute cardiopulmonary process and radiologist agree. Urinalysis suspicious for infection therefore she was treated with Rocephin in the ED. Urine culture was sent. I spoke with Dr. Ceja who questioned the reliability of the patient to care for herself. There does appear to be some confusion about how she is getting her antihyperglycemic's. Apparently she took Lantus 6 units today but had only been taking 4 units. This was increased because her blood sugars were responding but I also found out today that she has been receiving insulin that is outdated and therefore may not be working. After speaking with Dr. Ceja she recommended admitting the patient and getting her blood sugars down. She does not appear to be in DKA. After second liter of fluids will be reevaluated and you be given subcu insulin. I discussed this with the hospitalist and he agrees to admit the patient. Impression: 1. UTI 2. Nausea/vomiting 3. Hyperglycemia 4. Dehydration Lab Data Attestation: I reviewed the patient's lab results. Labs: Laboratory Results - last 24 hr 09/08/22 09/08/22 09/08/22 07:55 07:55 07:55 WBC 16.2 H RBC 4.20 Hgb 11.3 L Hct 36.5 L MCV 86.9 MCH 26.9 L MCHC 31.0 L RDW Std Deviation 54.6 H RDW Coeff of Kristyn 17.2 H Plt Count 374 MPV 11.6 Immature Gran % (Auto) 0.500 Neut % (Auto) 90.2 H Lymph % (Auto) 6.2 L [place] % (Auto) 2.2 Eos % (Auto) 0.3 Baso % (Auto) 0.6 Absolute Neuts (auto) 14.6 H Absolute Lymphs (auto) 1.00 Nucleated RBC % 0 Sodium 135 L Potassium 4.7 Chloride 98 Carbon Dioxide 22.0 Anion Gap 15 BUN 33 H Creatinine 1.29 H Estim Creat Clear Calc 30.54 Est GFR (MDRD) Af Amer 51 L Est GFR (MDRD) Non-Af 42 L BUN/Creatinine Ratio 25.6 H Glucose 643 H* Calcium 9.5 Troponin I High Sens 16 Urine Color Urine Clarity Urine pH Ur Specific [place] Urine Protein Urine Glucose (UA) Urine Ketones Urine Occult Blood Urine Nitrite Urine Bilirubin Urine Urobilinogen Ur Leukocyte Esterase Urine RBC Urine WBC Ur Squamous Epith Cells Urine Bacteria Urine Mucus Acetone Level SMALL H POC Glucose 09/08/22 09/08/22 08:29 08:40 WBC RBC Hgb Hct MCV MCH MCHC RDW Std Deviation RDW Coeff of Kristyn Plt Count MPV Immature Gran % (Auto) Neut % (Auto) Lymph % (Auto) Jew[place] % (Auto) Eos % (Auto) Baso % (Auto) Absolute Neuts (auto) Absolute Lymphs (auto) Nucleated RBC % Sodium Potassium Chloride Carbon Dioxide Anion Gap BUN Creatinine Estim Creat Clear Calc Est GFR (MDRD) Af Amer Est GFR (MDRD) Non-Af BUN/Creatinine Ratio Glucose Calcium Troponin I High Sens Urine Color Yellow Urine Clarity Sl. Cloudy Urine pH 6.0 Ur Specific [place] 1.015 Urine Protein Negative Urine Glucose (UA) 1000 H Urine Ketones 50 H Urine Occult Blood Negative Urine Nitrite Negative Urine Bilirubin Negative Urine Urobilinogen Normal Ur Leukocyte Esterase 100 H Urine RBC 0 SEEN Urine WBC 10-25 SEEN Ur Squamous Epith Cells 0-5 SEEN Urine Bacteria 0 SEEN Urine Mucus 0 SEEN Acetone Level POC Glucose > 500 H* Radiography Diagnostic Testing: Clinical Impression(s) from Imaging Studies Chest X-Ray 09/08/22 08:19 IMPRESSION: Findings suggestive of stable scarring at the lung bases. Stable appearance of the bilateral breast implants. Electronically Signed: Ayden Sifuentes MD at 8:54 EST , Discharge Plan Disposition Disposition: Acute Care [facility]
--- NOTE | 2022-09-08 08:31 | NURSING ---
blood glucose reported to Dr. Ponce
[2022-09-08] MEDS: 0.9% Normal Saline 1,000 ML 999 ML IV ×2 (08:34→09:26)
[2022-09-08 08:39] LABS: Absolute Neutrophil Count 14.6 X10^3/uL (2.0-7.7); Basophil# 0.09 X10^3/uL; Basophil% 0.6 % (0-1); Eosinophil# 0.05 X10^3/uL; Eosinophils% 0.3 % (0-5); Hematocrit 36.5 % (37-47); Hemoglobin 11.3 g/dL (12.0-15.0); Lymphocyte % 6.2 % (19-41); Mean Corpuscular Hgb 26.9 pg (27.0-32.0); Mean Corpuscular Volume 86.9 fL (81-99); Mean Platelet Vol. 11.6 fl (6.2-12.0); Monocyte# 0.36 X10^3/uL; Monocyte% 2.2 % (0-10); NRBC Flagged by Analyzer 0 % (0-5); Neutrophil # 14.57 X10^3/uL (2.7-7.7); Neutrophil % 90.2 % (47-70); Platelet Count 374 K/mm3 (150-450); RBC Distribution Width CV 17.2 % (11.6-14.6); RBC Distribution Width SD 54.6 fl (35.1-43.9); White Blood Count 16.2 K/mm3 (4.4-11.0)
[2022-09-08] MEDS: Ondansetron 4 MG/2 ML Vial IV (08:45)
[2022-09-08 08:51] LABS: Bedside Glucose > 500 mg/dL (74-106)
[2022-09-08 08:54] LABS: Bacteria 0 SEEN /hpf (None Seen); Mucous, Urine 0 SEEN /hpf (<or=2+); Red Blood Cells-Urine 0 SEEN /hpf (0-5)
[2022-09-08 08:59] LABS: Color, Urine Yellow (Yellow); Glucose, Dipstick 1000 mg/dl (Normal); Ketone-Dipstick 50 mg/dl (Negative); Leukocyte Esterase-Dipstick 100 /ul (Negative); Nitrite-Dipstick Negative (Negative); Occult Blood-Urine Negative /ul (Negative); Protein-Dipstick Negative (Negative); Specific Gravity, Urine 1.015 (1.002-1.030); Urine Bilirubin Dipstick Negative (Negative); Urine Clarity Sl. Cloudy (Clear); Urine Urobilinogen Normal (Normal)
[2022-09-08 08:59] LABS: Anion Gap 15 (5-15); BUN 33 mg/dL (7-18); BUN/Creat Ratio 25.6 RATIO (10-20); Calcium,Total 9.5 mg/dL (8.5-10.1); Chloride 98 mmol/L (98-107); Creatinine, Serum 1.29 mg/dL (0.55-1.02); EST Glomerular Filtration Rate 42 mL/min (>60); Est Glom Filt Rate - Afr Amer 51 mL/min (>60); Estimated Creatinine Clearance 30.54 ml/min; Glucose 643 mg/dL (74-106); Potassium 4.7 mmol/L (3.5-5.1); Sodium Level 135 mmol/L (136-145); Troponin-I HS 16 pg/mL (3.0-54.0)
[2022-09-08 09:24] LABS: Squamous Epithelial Cells - UA 0-5 SEEN /hpf (5-10); White Blood Cells 10-25 SEEN /hpf (0-5)
--- NOTE | 2022-09-08 09:37 | NURSING ---
DR KHUSHBOO KEENE
--- NOTE | 2022-09-08 09:39 | HP.PCM.HOS_ITS ---
HPI - General General Date of Admission: 09/08/22 Date of Service: 09/08/22 Chief Complaint: Nausea and vomiting HPI Narrative LIVIER SMALLS, is a 77 F with past medical history signal for diabetes mellitus type 2 currently on insulin who presented to the emergency department with nausea and vomiting. Patient symptoms are apparently been going on for couple of days. Patient appears to have some underlying cognitive issues. She was yung arently using insulin. Blood glucose on admission was noted to be 643. 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 Memory loss Osteopenia Pulmonary embolism, bilateral Smoker Home Medications amlodipine 5 mg-benazepril 10 mg capsule (Lotrel) 1 cap PO DAILY blood pressure 09/08/21 [History Last Taken 09/07/22] rivaroxaban 20 mg tablet (Xarelto) 20 mg PO DAILY blood thinner 04/23/22 [History Last Taken 09/08/22] insulin glargine 100 unit/mL subcutaneous solution (Lantus U-100 Insulin) 10 unit subcut QHS diabetes 09/08/22 [History Last Taken 09/08/22 t] levothyroxine 150 mcg tablet 150 mcg PO DAILY thyroid 09/08/22 [History Last Taken 09/08/22] oxybutynin chloride 10 mg tablet,extended release 24 hr 10 mg PO DAILY bladder 09/08/22 [History Last Taken 09/07/22] simvastatin 10 mg tablet 10 mg PO DAILY cholesterol 09/08/22 [History Last Taken 09/07/22] Allergy/AdvReac Type Severity Reaction Status Date / Time ciprofloxacin [From Cipro] Allergy Intermediate hives Verified 08/11/22 09:29 Sulfa (Sulfonamide Allergy Intermediate hives Verified 08/11/22 09:29 Antibiotics) Family History Father Diabetes Respiratory disease Surgical History S/P insertion of insulin pump Social History household members: significant other and none number of children: 2 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 SKIN: No Rash PSYCH; Flat affect Vital Signs Vital Signs Vital Signs: 09/08/22 07:50 09/08/22 07:54 Temperature 98 F Temperature Source Temporal Pulse Rate 125 H Respiratory Rate 17 Respiratory Effort Normal Non-Labored Respiratory Pattern Normal Blood Pressure 141/54 H Blood Pressure Mean 83 Pulse Ox 95 Oxygen Delivery Method Room Air Weight Weight: 68.8 kg Body Mass Index (BMI) 26.0 Results Lab / Micro Data Result Diagrams: 09/08/22 07:55 09/08/22 07:55 Labs: Laboratory Results - last 24 hr 09/08/22 07:55: WBC 16.2 H, RBC 4.20, Hgb 11.3 L, Hct 36.5 L, MCV 86.9, MCH 26.9 L, MCHC 31.0 L, RDW Std Deviation 54.6 H, RDW Coeff of Kristyn 17.2 H, Plt Count 374, MPV 11.6, Immature Gran % (Auto) 0.500, Neut % (Auto) 90.2 H, Lymph % (Auto) 6.2 L, [place] % (Auto) 2.2, Eos % (Auto) 0.3, Baso % (Auto) 0.6, Absolute Neuts (auto) 14.6 H, Absolute Lymphs (auto) 1.00, Nucleated RBC % 0 09/08/22 07:55: Sodium 135 L, Potassium 4.7, Chloride 98, Carbon Dioxide 22.0, Anion Gap 15, BUN 33 H, Creatinine 1.29 H, Estim Creat Clear Calc 30.54, Est GFR (MDRD) Af Amer 51 L, Est GFR (MDRD) Non-Af 42 L, BUN/Creatinine Ratio 25.6 H, Glucose 643 H*, Calcium 9.5, Troponin I High Sens 16 09/08/22 07:55: Acetone Level SMALL H 09/08/22 08:29: POC Glucose > 500 H* 09/08/22 08:40: Urine Color Yellow, Urine Clarity Sl. Cloudy, Urine pH 6.0, Ur Specific [place] 1.015, Urine Protein Negative, Urine Glucose (UA) 1000 H, Urine Ketones 50 H, Urine Occult Blood Negative, Urine Nitrite Negative, Urine Bilirubin Negative, Urine Urobilinogen Normal, Ur Leukocyte Esterase 100 H, Urine RBC 0 SEEN, Urine WBC 10-25 SEEN, Ur Squamous Epith Cells 0-5 SEEN, Urine Bacteria 0 SEEN, Urine Mucus 0 SEEN Radiology Impression Chest X-Ray 09/08/22 08:19 IMPRESSION: Findings suggestive of stable scarring at the lung bases. Stable appearance of the bilateral breast implants. Electronically Signed: Ayden Sifuentes MD at 8:54 EST , Assessment & Plan Assessment/Plan (1) Hyperglycemia: PLAN: Plan Patient is a 77-year-old lady presented with nausea vomiting and hyperglycemia 1. Hyperglycemia ? Patient has apparently been using insulin admitted to regular nursing floor started on long-acting insulin as well as IV fluid. Diagnostic data on admission not consistent with DKA. Patient response to the insulin being monitored with Accu-Cheks every 4 with correction factor insulin added 2. Diabetes mellitus type 2 ? Patient presented with hypoglycemia management as discussed above 3. Acute cystitis ? Patient has been started on Rocephin urine culture sent 4. Nausea vomiting -do suspect to be secondary to patient hyperglycemia as well as her acute cystitis management as discussed above 5. History of previous pulmonary embolism ? Patient is on Xarelto did continue 6. Hypothyroidism - Patient is on levothyroxine home dose continued 7. Dyslipidemia -Patient is on statin therapy, continued at home dose 8. Suspected cognitive impairment ? We will continue monitoring 9. Physical deconditioning - Requested for PT OT eval and social staff worker to assist with discharge planning 10. DVT prophylaxis ? Patient is on Xarelto Charges/Coding Visit Charges Inpatient E&M: 65542 Init Hosp L3
--- NOTE | 2022-09-08 09:40 | NURSING ---
MED SURG KITTOE HYPERGLYCEMIA
[2022-09-08 10:00] VITALS: BP 129/44; PULSE 109; RESP 20; TEMP 36.7; O2SAT 96
[2022-09-08 10:16] LABS: Bedside Glucose > 500 mg/dL (74-106)
[2022-09-08] MEDS: Ceftriaxone 1 GM/50 ML BAG IV (10:32)
[2022-09-08 10:53] VITALS: BP 146/55; PULSE 110; RESP 18; TEMP 36.8; O2SAT 98
[2022-09-08 10:57] VITALS: BMI 24.7
[2022-09-08] MEDS: 0.9% Normal Saline 1,000 ML 150 ML IV ×3 (11:10→23:45)
[2022-09-08 11:20] LABS: Bedside Glucose > 500 mg/dL (74-106)
[2022-09-08 11:51] LABS: Glucose 535 mg/dL (74-106)
[2022-09-08] MEDS: Insulin Lispro 100 UNIT/ML INSULN.PEN 20 UNIT SC (12:22)
[2022-09-08] MEDS: Insulin Glargine-YFGN 100 UNIT/ML Pen 25 UNIT SC (12:23)
[2022-09-08] MEDS: Insulin Lispro 100 UNIT/ML INSULN.PEN 10 UNIT SC ×2 (12:23→16:12)
--- NOTE | 2022-09-08 14:42 | CHAPLAIN ---
Type of Pastoral Visit _x__ Initial Visit ___ Follow-up Visit ___ On-call Visit ___ General Patient Visit ___ Spiritual Assessment ___ Family Conference ___ Bereavement ___ Rapid Response ___ Code Blue ___ Other (describe below) Pastoral Care Referral From _x__ Patient ___ Family ___ Nurse ___ Physician ___ Linoleum Floor Layer ___ Elementary School Teacher ___ Other (describe below) Sacrament/Intervention _x__ Active listening ___ Anointing ___ Hinduism ___ Bereavement ___ Communion ___ Hannah exploration ___ ___ Life review _x__ Prayer ___ Reconciliation ___ Sacrament of Sick _x__ Supportive presence ___ Wedding ___ Other (describe below) Pastoral Comments patient states that she is not feeling well at all; pt asks for a prayer; pt also gives some life review but mostly for the recent times
[2022-09-08 14:45] VITALS: O2SAT 86
[2022-09-08 14:46] VITALS: BP 113/62; PULSE 106; RESP 18; TEMP 37.2; O2SAT 92
[2022-09-08 16:40] LABS: Bedside Glucose 214 mg/dL (74-106)
[2022-09-08 20:15] VITALS: BP 118/43; PULSE 93; RESP 18; TEMP 37.1; O2SAT 96
[2022-09-08] MEDS: Atorvastatin Calcium 10 MG Tablet 5 MG PO (22:05)
[2022-09-08 22:30] LABS: Bedside Glucose 57 mg/dL (74-106)
[2022-09-09 00:16] LABS: Bedside Glucose 124 mg/dL (74-106)
[2022-09-09 00:16] LABS: Bedside Glucose 64 mg/dL (74-106)
[2022-09-09 02:53] VITALS: BP 137/51; PULSE 88; RESP 18; TEMP 36.9; O2SAT 93
[2022-09-09 04:56] LABS: Absolute Lymphocyte Count 2.59 X10^3/uL (0.83-4.51); Absolute Neutrophil Count 4.2 X10^3/uL (2.0-7.7); Basophil# 0.05 X10^3/uL; Basophil% 0.6 % (0-1); Eosinophil# 0.19 X10^3/uL; Eosinophils% 2.4 % (0-5); Hematocrit 29.9 % (37-47); Hemoglobin 9.3 g/dL (12.0-15.0); Lymphocyte # 2.59 X10^3/ul (0.83-4.51); Mean Corp Hgb Conc 31.1 g/dL (32-36); Mean Corpuscular Hgb 27.1 pg (27.0-32.0); Mean Corpuscular Volume 87.2 fL (81-99); Mean Platelet Vol. 11.3 fl (6.2-12.0); Monocyte% 10.2 % (0-10); NRBC Flagged by Analyzer 0 % (0-5); Neutrophil # 4.19 X10^3/uL (2.7-7.7); Neutrophil % 53.5 % (47-70); Platelet Count 341 K/mm3 (150-450); RBC Distribution Width CV 17.6 % (11.6-14.6); RBC Distribution Width SD 56.1 fl (35.1-43.9); Red Blood Count 3.43 M/mm3 (4.2-5.4); White Blood Count 7.8 K/mm3 (4.4-11.0)
[2022-09-09 05:43] LABS: Anion Gap 6 (5-15); BUN 32 mg/dL (7-18); BUN/Creat Ratio 28.3 RATIO (10-20); Calcium,Total 8.4 mg/dL (8.5-10.1); Chloride 110 mmol/L (98-107); Creatinine, Serum 1.13 mg/dL (0.55-1.02); EST Glomerular Filtration Rate 49 mL/min (>60); Est Glom Filt Rate - Afr Amer 60 mL/min (>60); Estimated Creatinine Clearance 34.86 ml/min; Glucose 85 mg/dL (74-106); Magnesium 2.4 mg/dL (1.6-2.6); Phosphorus 4.1 mg/dL (2.5-4.9); Potassium 3.8 mmol/L (3.5-5.1); Sodium Level 140 mmol/L (136-145)
[2022-09-09] MEDS: Levothyroxine 150 MCG Tablet PO (06:11)
[2022-09-09] MEDS: 0.9% Normal Saline 1,000 ML 150 ML IV (06:12)
--- NOTE | 2022-09-09 07:37 | PCM.PN.HOSP ---
Subjective Subjective Hyperglycemia resolved however became hypoglycemic. Subsequent adjustment in insulin made Objective Data Objective Data Vital Signs: Vital Signs Temp Pulse Resp BP Pulse Ox O2 Del Method O2 Flow Rate 98.5 F 88 18 137/51 H 93 Nasal Cannula 2 09/09/22 02:53 09/09/22 02:53 09/09/22 02:53 09/09/22 02:53 09/09/22 02:53 09/09/22 02:53 09/09/22 02:53 Oxygen Flow Rate (L/min) 2 Oxygen Delivery Method Nasal Cannula Weight: 69.1 kg Body Mass Index (BMI) 24.7 Intake & Output: Intake and Output for Last 24 Hours 09/07/22 09/08/22 09/09/22 23:59 23:59 23:59 Intake Total 3937.5 / 3937.5 1567.5 / 1567.5 Balance 3937.5 / 3937.5 1567.5 / 1567.5 Lab / Micro Data Result Diagrams: 09/09/22 03:56 09/09/22 08:30 Labs: Laboratory Results - last 24 hr 09/08/22 07:55: WBC 16.2 H, RBC 4.20, Hgb 11.3 L, Hct 36.5 L, MCV 86.9, MCH 26.9 L, MCHC 31.0 L, RDW Std Deviation 54.6 H, RDW Coeff of Kristyn 17.2 H, Plt Count 374, MPV 11.6, Immature Gran % (Auto) 0.500, Neut % (Auto) 90.2 H, Lymph % (Auto) 6.2 L, [place] % (Auto) 2.2, Eos % (Auto) 0.3, Baso % (Auto) 0.6, Absolute Neuts (auto) 14.6 H, Absolute Lymphs (auto) 1.00, Nucleated RBC % 0 09/08/22 07:55: Sodium 135 L, Potassium 4.7, Chloride 98, Carbon Dioxide 22.0, Anion Gap 15, BUN 33 H, Creatinine 1.29 H, Estim Creat Clear Calc 30.54, Est GFR (MDRD) Af Amer 51 L, Est GFR (MDRD) Non-Af 42 L, BUN/Creatinine Ratio 25.6 H, Glucose 643 H*, Calcium 9.5, Troponin I High Sens 16 09/08/22 07:55: Acetone Level SMALL H 09/08/22 08:29: POC Glucose > 500 H* 09/08/22 08:40: Urine Color Yellow, Urine Clarity Sl. Cloudy, Urine pH 6.0, Ur Specific [place] 1.015, Urine Protein Negative, Urine Glucose (UA) 1000 H, Urine Ketones 50 H, Urine Occult Blood Negative, Urine Nitrite Negative, Urine Bilirubin Negative, Urine Urobilinogen Normal, Ur Leukocyte Esterase 100 H, Urine RBC 0 SEEN, Urine WBC 10-25 SEEN, Ur Squamous Epith Cells 0-5 SEEN, Urine Bacteria 0 SEEN, Urine Mucus 0 SEEN 09/08/22 09:56: POC Glucose > 500 H* 09/08/22 11:02: POC Glucose > 500 H* 09/08/22 11:16: Glucose 535 H* 09/08/22 16:10: POC Glucose 214 H 09/08/22 22:03: POC Glucose 57 L 09/08/22 23:09: POC Glucose 64 L 09/08/22 23:56: POC Glucose 124 H 09/09/22 03:56: WBC 7.8, RBC 3.43 L, Hgb 9.3 L, Hct 29.9 L, MCV 87.2, MCH 27.1, MCHC 31.1 L, RDW Std Deviation 56.1 H, RDW Coeff of Kristyn 17.6 H, Plt Count 341, MPV 11.3, Immature Gran % (Auto) 0.300, Neut % (Auto) 53.5, Lymph % (Auto) 33.0, [place] % (Auto) 10.2 H, Eos % (Auto) 2.4, Baso % (Auto) 0.6, Absolute Neuts (auto) 4.2, Absolute Lymphs (auto) 2.59, Nucleated RBC % 0 09/09/22 03:56: Sodium 140, Potassium 3.8, Chloride 110 H, Carbon Dioxide 24.0, Anion Gap 6, BUN 32 H, Creatinine 1.13 H, Estim Creat Clear Calc 34.86, Est GFR (MDRD) Af Amer 60, Est GFR (MDRD) Non-Af 49 L, BUN/Creatinine Ratio 28.3 H, Glucose 85, Calcium 8.4 L, Phosphorus 4.1, Magnesium 2.4 Radiography Diagnostic Testing: Radiology Impression Chest X-Ray 09/08/22 08:19 IMPRESSION: Findings suggestive of stable scarring at the lung bases. Stable appearance of the bilateral breast implants. Electronically Signed: Ayden Sifuentes MD at 8:54 EST , Physical Exam Narrative GENERAL: Cooperative HEENT: Atraumatic; normocephalic EYES; Anicteric, Normal Conjunctiva NECK; supple, normal thyroid, RESPIRATORY: Diminished to auscultation CARDIOVASCULAR:? Regular S1 S2, GI:? soft, normoactive bowel sounds, : No Renal angle tenderness; EXTREMITIES:? No edema, no clubbing, MUSCULOSKELETAL:? no muscle wasting NEURO:? Awake;? no lateralizing signs. SKIN:? No Rash PSYCH; Flat? affect Assessment & Plan Assessment/Plan (1) Hyperglycemia: PLAN: Plan Patient is a 77-year-old lady presented with nausea vomiting and hyperglycemia 1. Hyperglycemia ? Patient has apparently been using insulin admitted to regular nursing floor started on long-acting insulin as well as IV fluid. Diagnostic data on admission not consistent with DKA. Patient response to the insulin being monitored with Accu-Cheks every 4 with correction factor insulin added ? 09/09/2022 hyperglycemia resolved 2. Diabetes mellitus type 2 ? Patient presented with hypoglycemia management as discussed above ? 09/09/2022; patient presented with hypoglycemia management as discussed above resolved. Patient became hypoglycemic subsequent adjustment made to patient insulin regimen 3. Acute cystitis ? Patient has been started on Rocephin urine culture sent ? 09/09/2022 urine cultures still pending 4. Nausea vomiting -do suspect to be secondary to patient hyperglycemia as well as her acute cystitis management as discussed above 5. History of previous pulmonary embolism ? Patient is on Xarelto did continue 6. Hypothyroidism - Patient is on levothyroxine home dose continued 7. Dyslipidemia -Patient is on statin therapy, continued at home dose 8. Suspected cognitive impairment ? We will continue monitoring 9. Physical deconditioning - Requested for PT OT eval and psychiatric social worker supervisor to assist with discharge planning 10. DVT prophylaxis ? Patient is on Xarelto Charges/Coding Visit Charges Inpatient E&M: 36927 Subs Hosp L2
[2022-09-09 08:06] VITALS: BP 137/53; PULSE 87; RESP 18; TEMP 36.7; O2SAT 94
--- NOTE | 2022-09-09 08:15 | NURSING ---
Pt Blood sugar is 42 at this time. Pt did not order breakfast. Pt was given 1 cup of Cranberry Juice and a pack of Melissa Doones to eat. Lab called and aware of the need for lab back up for low blood sugar. This Rn in room continuing to monitor. Will recheck BS in 15 min after snack.
[2022-09-09] MEDS: Tolterodine Tartrate 4 MG CAP.SA PO (08:22)
[2022-09-09] MEDS: amLODIPine 5 MG Tablet PO (08:23)
[2022-09-09] MEDS: Lisinopril 10 MG Tablet PO (08:23)
[2022-09-09 08:31] VITALS: PULSE 88
--- NOTE | 2022-09-09 08:31 | NURSING ---
Lab is here in the room getting blood for lab back up.
[2022-09-09] MEDS: Ceftriaxone 1 GM/50 ML BAG IV (08:46)
[2022-09-09 08:48] LABS: Glucose 75 mg/dL (74-106)
[2022-09-09 08:50] LABS: Bedside Glucose 42 mg/dL (74-106)
--- NOTE | 2022-09-09 08:56 | NURSING ---
Blood sugar is 97 now after snack and drink.
[2022-09-09 09:25] LABS: Bedside Glucose 97 mg/dL (74-106)
[2022-09-09 11:45] LABS: Bedside Glucose 286 mg/dL (74-106)
[2022-09-09] MEDS: Insulin Glargine-YFGN 100 UNIT/ML Pen 10 UNIT SC (11:52)
[2022-09-09] MEDS: Insulin Lispro 100 UNIT/ML INSULN.PEN SC ×2 (11:52→16:30)
[2022-09-09 12:48] VITALS: O2SAT 93
--- NOTE | 2022-09-09 12:55 | CASEMGMT ---
KRISTINE ALEMAN GASTROENTEROLOGY NURSE CM to room to meet with patient for initial transition planning/care coordination assessment. KRISTINE ALEMAN introduced self and role at [facility]. Pt voices understanding and consents to assessment at this time. Sig other, Don, @ bedside and pt agreeable to him being present during assessment. Pt resting in bed in no distress at this time. KRISTINE ALEMAN noted in pt history she has underlying cognitive/memory issues. Pt is awake/alert at this time and answers questions appropriately but would often look over @ Don to answer questions and Don would provide clarification or further information. Care providers, pharmacy, and demographics verified/updated at this time. PCP: Dr Jeffers Specialists: Dr Ceja/Delfina Velasquez,LINE COOK-endocrinology Preferred Pharmacy: Don states pt was getting rx's from [facility] pharmacy but would like to switch to [facility] in [place] now. Insurance: [facility] A/B, [facility] Prescription Benefit: Yes Medications: Don states pt ran out of insulin on Tuesday and he left msg w/PCP on Tuesday but they did not call rx for Novolog to [facility] until Tuesday. He states he was notified on Tuesday by [facility] that they were out of Novolog and then notified again on Tuesday they were still out. He states prior to running out of insulin that he was using insulin but states It was working, cause I kept checking her sugars and they were coming down. KRISTINE ALEMAN educated Don and pt on importance of not using medications, as efficacy is not known. Don and pt also made aware, if pt is out of medication in the future that PCP should be notified as an alternative may be available. They voice understanding. MS3 RN LOVE Carlson made aware of above and states will f/u with [facility] pharmacy to have script for Novolog transferred to them per Don's request. Living Will/HPOA: Don states pt has LW and states that he is HCPOA and that he brought documentation in for same in May. KRISTINE ALEMAN informed him documents are on file @ [facility] but the page that states who pt designated to be her POA is missing. He states he has copies of the documents @ home and plans to bring them in tomorrow. KRISTINE AELMAN instructed him to ask for SW when he brings them in so she can review them to let him know if all the necessary pages are there. He voices understanding. LNOK: SonAndrea (lives in [place]). Kevon langston [place] Living Arrangements: Pt lives with Dillon murillo in a single story condo w/no steps to enter. Pt states she is independent w/ADL's-bathing and dressing, and Don confirms this. Don states he is w/pt 16/05 and manages all of her medications and appts and does all home mgmt tasks. Transportation: Dillon Murillo. DME: tub/shower chair, O2 at 2l/min from [employer], pulse ox, Alivia glucometer system, grab bars. Pt/Don state pt does not have a cane or walker. SNF/HHC: No hx of SNF. Has had [facility] in the past. Discussed discharge planning w/Don and pt. Dillon declines wanting any HHC, stating, I manage all of that and it's not necessary at this time. Palliative Care: Noted referral for Palliative care was placed in May. KRISTINE ALEMAN inquired if they had signed on for Palliative care. Dillon states he did not know anything about it. Palliative care explained to both Don and pt. They state they are not interested at this time. KRISTINE ALEMAN also noted AL had been provided to pt during a prior hospital stay and inquired if they would like further info. Both pt and Don state they are not interested in further info on AL either. Plan: Home w/support of Kevon langston/Dillon and discharge plans in place. CM to f/u to ensure pt has insulin needed @ discharge. Ariela FELIZ RN, CM
[2022-09-09 14:00] VITALS: BP 128/40; PULSE 94; RESP 18; TEMP 36.4; O2SAT 94
[2022-09-09] MEDS: Rivaroxaban 20 MG Tablet PO (16:31)
[2022-09-09 16:55] LABS: Bedside Glucose 318 mg/dL (74-106)
--- NOTE | 2022-09-09 18:37 | NURSING ---
Went for a walk in the white with Visitor.
[2022-09-09 20:17] VITALS: BP 140/45; PULSE 92; RESP 18; TEMP 36.7; O2SAT 93
[2022-09-09] MEDS: Atorvastatin Calcium 10 MG Tablet 5 MG PO (20:20)
[2022-09-09 21:31] LABS: Bedside Glucose 126 mg/dL (74-106)
[2022-09-10 02:01] VITALS: BP 157/56; PULSE 95; RESP 18; TEMP 36.7; O2SAT 94
[2022-09-10] MEDS: Levothyroxine 150 MCG Tablet PO (05:39)
[2022-09-10] MEDS: Insulin Lispro 100 UNIT/ML INSULN.PEN SC (05:42)
[2022-09-10 06:13] LABS: Absolute Lymphocyte Count 1.73 X10^3/uL (0.83-4.51); Absolute Neutrophil Count 5.8 X10^3/uL (2.0-7.7); Basophil# 0.09 X10^3/uL; Eosinophil# 0.42 X10^3/uL; Eosinophils% 4.8 % (0-5); Hematocrit 30.8 % (37-47); Hemoglobin 9.6 g/dL (12.0-15.0); Lymphocyte # 1.73 X10^3/ul (0.83-4.51); Lymphocyte % 19.9 % (19-41); Mean Corp Hgb Conc 31.2 g/dL (32-36); Mean Corpuscular Hgb 26.9 pg (27.0-32.0); Mean Corpuscular Volume 86.3 fL (81-99); Monocyte# 0.59 X10^3/uL; Monocyte% 6.8 % (0-10); NRBC Flagged by Analyzer 0 % (0-5); Neutrophil # 5.82 X10^3/uL (2.7-7.7); Neutrophil % 67.2 % (47-70); Platelet Count 317 K/mm3 (150-450); RBC Distribution Width CV 17.1 % (11.6-14.6); RBC Distribution Width SD 54.3 fl (35.1-43.9); Red Blood Count 3.57 M/mm3 (4.2-5.4); White Blood Count 8.7 K/mm3 (4.4-11.0)
[2022-09-10 06:43] LABS: Anion Gap 6 (5-15); BUN 19 mg/dL (7-18); BUN/Creat Ratio 21.3 RATIO (10-20); Calcium,Total 8.7 mg/dL (8.5-10.1); Chloride 108 mmol/L (98-107); Creatinine, Serum 0.89 mg/dL (0.55-1.02); EST Glomerular Filtration Rate 65 mL/min (>60); Est Glom Filt Rate - Afr Amer 78 mL/min (>60); Estimated Creatinine Clearance 44.26 ml/min; Glucose 306 mg/dL (74-106); Potassium 3.8 mmol/L (3.5-5.1); Sodium Level 140 mmol/L (136-145)
[2022-09-10 06:45] LABS: Bedside Glucose 279 mg/dL (74-106)
--- NOTE | 2022-09-10 07:30 | PCM.PN.HOSP ---
Subjective Subjective Patient blood glucose levels relatively stable plan is for patient to be assessed for possible discharge. Objective Data Objective Data Vital Signs: Vital Signs Temp Pulse Resp BP Pulse Ox O2 Del Method O2 Flow Rate 98.1 F 95 18 157/56 H 94 Nasal Cannula 2 09/10/22 02:01 09/10/22 02:01 09/10/22 02:01 09/10/22 02:01 09/10/22 02:01 09/10/22 02:01 09/10/22 02:01 Oxygen Flow Rate (L/min) 2 Oxygen Delivery Method Nasal Cannula Weight: 69.1 kg Body Mass Index (BMI) 24.7 Intake & Output: Intake and Output for Last 24 Hours 09/08/22 09/09/22 09/10/22 23:59 23:59 23:59 Intake Total 3937.5 / 3937.5 3237.5 / 3237.5 Balance 3937.5 / 3937.5 3237.5 / 3237.5 Lab / Micro Data Result Diagrams: 09/10/22 05:55 09/10/22 05:55 Labs: Laboratory Results - last 24 hr 09/09/22 08:11: POC Glucose 42 L* 09/09/22 08:30: Glucose 75 09/09/22 08:47: POC Glucose 97 09/09/22 11:23: POC Glucose 286 H 09/09/22 16:28: POC Glucose 318 H 09/09/22 20:19: POC Glucose 126 H 09/10/22 05:38: POC Glucose 279 H 09/10/22 05:55: WBC 8.7, RBC 3.57 L, Hgb 9.6 L, Hct 30.8 L, MCV 86.3, MCH 26.9 L, MCHC 31.2 L, RDW Std Deviation 54.3 H, RDW Coeff of Kristyn 17.1 H, Plt Count 317, MPV 11.0, Immature Gran % (Auto) 0.300, Neut % (Auto) 67.2, Lymph % (Auto) 19.9, [place] % (Auto) 6.8, Eos % (Auto) 4.8, Baso % (Auto) 1.0, Absolute Neuts (auto) 5.8, Absolute Lymphs (auto) 1.73, Nucleated RBC % 0 09/10/22 05:55: Sodium 140, Potassium 3.8, Chloride 108 H, Carbon Dioxide 26.0, Anion Gap 6, BUN 19 H, Creatinine 0.89, Estim Creat Clear Calc 44.26, Est GFR (MDRD) Af Amer 78, Est GFR (MDRD) Non-Af 65, BUN/Creatinine Ratio 21.3 H, Glucose 306 H, Calcium 8.7 Micro: Microbiology 09/08/22 08:40 Urine, Clean Catch Urine Culture - Final Mixed Gram Positive Organisms Physical Exam Narrative GENERAL: Cooperative HEENT: Atraumatic; normocephalic EYES; Anicteric, Normal Conjunctiva NECK; supple, normal thyroid, RESPIRATORY: Diminished to auscultation CARDIOVASCULAR:? Regular S1 S2, GI:? soft, normoactive bowel sounds, : No Renal angle tenderness; EXTREMITIES:? No edema, no clubbing, MUSCULOSKELETAL:? no muscle wasting NEURO:? Awake;? no lateralizing signs. SKIN:? No Rash PSYCH; Flat? affect Assessment & Plan Assessment/Plan (1) Hyperglycemia: PLAN: Plan Patient is a 77-year-old lady presented with nausea vomiting and hyperglycemia 1. Hyperglycemia ? Patient has apparently been using insulin admitted to regular nursing floor started on long-acting insulin as well as IV fluid. Diagnostic data on admission not consistent with DKA. Patient response to the insulin being monitored with Accu-Cheks every 4 with correction factor insulin added ? 09/09/2022 hyperglycemia resolved 2. Diabetes mellitus type 2 ? Patient presented with hyperglycemia management as discussed above ? 09/09/2022; patient presented with hyperglycemia, management as discussed above resolved. Patient became hypoglycemic subsequent adjustment made to patient insulin regimen 3. Acute cystitis ? Patient has been started on Rocephin urine culture sent ? 09/09/2022 urine cultures still pending 4. Nausea vomiting -do suspect to be secondary to patient hyperglycemia as well as her acute cystitis management as discussed above 5. History of previous pulmonary embolism ? Patient is on Xarelto did continue 6. Hypothyroidism - Patient is on levothyroxine home dose continued 7. Dyslipidemia -Patient is on statin therapy, continued at home dose 8. Suspected cognitive impairment ? We will continue monitoring 9. Physical deconditioning - Requested for PT OT eval and social science research assistant to assist with discharge planning 10. DVT prophylaxis ? Patient is on Xarelto Charges/Coding Visit Charges Inpatient E&M: 23978 Subs Hosp L2
[2022-09-10 07:41] VITALS: O2SAT 94
[2022-09-10 07:58] VITALS: BP 157/67; PULSE 94; RESP 16; TEMP 36.8; O2SAT 95
[2022-09-10 08:03] VITALS: RESP 16
--- NOTE | 2022-09-10 08:43 | DS.PCM_ITS ---
Providers Date of Admission: 09/08/22 Date of Discharge: 09/10/22 Primary Care Physician: Dr. Shena Jeffers DO Reason For Visit: HYPERGLYCEMIA, ACUTE CYSTITIS Diagnosis Discharge Diagnosis (1) Hyperglycemia: Status: Acute Code(s): R73.9 - Hyperglycemia, unspecified Plan Patient is a 77-year-old lady presented with nausea vomiting and hyperglycemia 1. Hyperglycemia ? Patient has apparently been using insulin admitted to regular nursing floor started on long-acting insulin as well as IV fluid. Diagnostic data on admission not consistent with DKA. Patient response to the insulin being monitored with Accu-Cheks every 4 with correction factor insulin added ? 09/09/2022 hyperglycemia resolved 2. Diabetes mellitus type 2 ? Patient presented with hyperglycemia management as discussed above ? 09/09/2022; patient presented with hyperglycemia, management as discussed above resolved. Patient became hypoglycemic subsequent adjustment made to patient insulin regimen ? 09/10/2022 new prescription written for patient on discharge 3. Acute cystitis ? Patient has been started on Rocephin urine culture sent ? 09/09/2022 urine cultures still pending ? 09/10/2022 urine cultures came back negative antibiotics discontinued on discharge 4. Nausea vomiting -do suspect to be secondary to patient hyperglycemia as well as her acute cystitis management as discussed above 5. History of previous pulmonary embolism ? Patient is on Xarelto did continue 6. Hypothyroidism - Patient is on levothyroxine home dose continued 7. Dyslipidemia -Patient is on statin therapy, continued at home dose 8. Suspected cognitive impairment ? We will continue monitoring 9. Physical deconditioning - Requested for PT OT eval and delinquency prevention social worker to assist with discharge planning 10. DVT prophylaxis ? Patient is on Xarelto Medications at Discharge Home Medications amlodipine 5 mg-benazepril 10 mg capsule (Lotrel) 1 cap PO DAILY blood pressure 09/08/21 rivaroxaban 20 mg tablet (Xarelto) 20 mg PO DAILY blood thinner 04/23/22 levothyroxine 150 mcg tablet 150 mcg PO DAILY thyroid 09/08/22 oxybutynin chloride 10 mg tablet,extended release 24 hr 10 mg PO DAILY bladder 09/08/22 simvastatin 10 mg tablet 10 mg PO DAILY cholesterol 09/08/22 insulin glargine 100 unit/mL subcutaneous solution (Lantus U-100 Insulin) 20 unit (0.2 mL) subcut QHS diabetes #10 mL 11/18/22 Hospital Course Summary of Care Provided Minutes Spent on Discharge: 35 Physical Exam Narrative GENERAL: Cooperative HEENT: Atraumatic; normocephalic EYES; Anicteric, Normal Conjunctiva NECK; supple, normal thyroid, RESPIRATORY: Diminished to auscultation CARDIOVASCULAR:? Regular S1 S2, GI:? soft, normoactive bowel sounds, : No Renal angle tenderness; EXTREMITIES:? No edema, no clubbing, MUSCULOSKELETAL:? no muscle wasting NEURO:? Awake;? no lateralizing signs. SKIN:? No Rash PSYCH; Flat? affect Weight / BMI Weight Weight: 69.1 kg Body Mass Index (BMI) 24.7 ABG / Lab / Microbiology Data Result Diagrams: 09/10/22 05:55 09/10/22 05:55 Laboratory: Laboratory Results - last 24 hr 09/09/22 08:11: POC Glucose 42 L* 09/09/22 08:30: Glucose 75 09/09/22 08:47: POC Glucose 97 09/09/22 11:23: POC Glucose 286 H 09/09/22 16:28: POC Glucose 318 H 09/09/22 20:19: POC Glucose 126 H 09/10/22 05:38: POC Glucose 279 H 09/10/22 05:55: WBC 8.7, RBC 3.57 L, Hgb 9.6 L, Hct 30.8 L, MCV 86.3, MCH 26.9 L , MCHC 31.2 L, RDW Std Deviation 54.3 H, RDW Coeff of Kristyn 17.1 H, Plt Count 317, MPV 11.0, Immature Gran % (Auto) 0.300, Neut % (Auto) 67.2, Lymph % (Auto) 19.9, Fleming % (Auto) 6.8, Eos % (Auto) 4.8, Baso % (Auto) 1.0, Absolute Neuts (auto) 5.8, Absolute Lymphs (auto) 1.73, Nucleated RBC % 0 09/10/22 05:55: Sodium 140, Potassium 3.8, Chloride 108 H, Carbon Dioxide 26.0, Anion Gap 6, BUN 19 H, Creatinine 0.89, Estim Creat Clear Calc 44.26, Est GFR (MDRD) Af Amer 78, Est GFR (MDRD) Non-Af 65, BUN/Creatinine Ratio 21.3 H, Glucose 306 H, Calcium 8.7 Microbiology: Microbiology 09/08/22 08:40 Urine, Clean Catch Urine Culture - Final Mixed Gram Positive Organisms D/C Instructions Discharge Diet: 1800 Calorie Control Diet Discharge Activity: Return to Normal Activity Call your doctor if you observe: Fever of 101 or Higher, Shortness of breath, Fainting spells and Chest pain Meaningful Use Info Meaningful Use Diagnoses (Choose all that apply): None applicable Discharge Plan Admission Admit Date/Time: 09/08/22 09:38 Attending Provider: Eder Stovall Primary Care Provider: Shena Jeffers Discharge Orders/Prescriptions Prescriptions: Continued amlodipine-benazepril [Lotrel] 5-10 mg capsule 1 cap PO DAILY Xarelto 20 mg tablet 20 mg PO DAILY oxybutynin chloride 10 mg tablet extended release 24hr 10 mg PO DAILY Label Comments: take 1 tablet by mouth once daily simvastatin 10 mg tablet 10 mg PO DAILY levothyroxine 150 mcg tablet 150 mcg PO DAILY Changed insulin glargine [Lantus U-100 Insulin] 100 unit/mL solution 20 unit SUBCUT QHS Qty: 10 0RF Referrals / Follow Up: Shena Jeffers DO [Primary Care Provider] - Within 1 Week Disposition Disposition (needs filled in before D/C Order can be placed): Home, Self Care Charges/Coding Visit Charges Inpatient E&M: [id number] Disch Hosp
[2022-09-10 09:52] VITALS: BP 157/67; PULSE 94; RESP 16; TEMP 36.8; O2SAT 95
[2022-09-10] MEDS: Lisinopril 10 MG Tablet PO (10:09)
[2022-09-10] MEDS: amLODIPine 5 MG Tablet PO (10:09)
[2022-09-10] MEDS: Tolterodine Tartrate 4 MG CAP.SA PO (10:09)
[2022-09-10] MEDS: Ceftriaxone 1 GM/50 ML BAG IV (10:10)
[2022-09-10] MEDS: Insulin Glargine-YFGN 100 UNIT/ML Pen 20 UNIT SC (10:10)
[2022-09-10] MEDS: 0.9% Saline Lock 10 ML Syringe IV (10:11)
--- NOTE | 2022-09-10 10:30 | CASEMGMT ---
Addendum entered by Robyn Lopez 09/10/22 12:05: KRISTINE ALEMAN notified by pt nurse that pt and sig other are not happy with just the long acting insulin being ordered and asked about HHC. KRISTINE ALEMAN in to pt room, discussed HHC again with pt and sig other. Pt sig other states there is so much we don't know between her and I. Made him aware that this is what [facility] is for, to educate and answer questions. Pt spoke up and states she does not want it. Pt and sig other thanks KRISTINE ALEMAN for the offer but decline. Original Note: KRISTINE ALEMAN in to pt room, pt sitting up in bed with sig other at bedside. Made pt and sig other aware that an insulin was called into [facility] for pickup. Pt and sig other deny needs for any disease education from [facility]. Pt states her sig other is her nurse. Pt denies any further homegoing needs.
--- NOTE | 2022-09-10 11:55 | NURSING ---
Patient checked her blood glucose at this time with own device. It read blood sugar to be 196.
[2022-09-10 11:59] VITALS: BP 160/65; PULSE 80; RESP 18; TEMP 36.8; O2SAT 93
--- NOTE | 2022-09-10 12:02 | CASEMGMT ---
Social Work Paper copy of POA for healthcare, with the living will provision initialed, in the paper chart. Jian Anthony is listed as healthcare POA. MANDEEP Singh
== END 2022-09-10 12:57 | disposition home or self-care (01) | DRG 638 ==
LOC: ED 09:46 → MS3 09:57
PROVIDERS: Admitting Provider Internal Medicine; Emergency Provider Student in an Organized Health Care Education/Training Program; PCP Internal Medicine; Visit Provider Internal Medicine
DX: E11.65 Type 2 diabetes mellitus with hyperglycemia (principal); N30.00 Acute cystitis without hematuria; E11.649 Type 2 diabetes mellitus with hypoglycemia without coma; Z99.81 Dependence on supplemental oxygen; J43.9 Emphysema, unspecified; Z79.4 Long term (current) use of insulin; I10 Essential (primary) hypertension; E78.5 Hyperlipidemia, unspecified; E86.0 Dehydration; E03.9 Hypothyroidism, unspecified; Z79.01 Long term (current) use of anticoagulants; Z87.891 Personal history of nicotine dependence; Z86.711 Personal history of pulmonary embolism
CPT/HCPCS: 36415; 71045; 80048; 81001; 82009; 82947; 82962; 83735; 84100; 84484; 85025; 87086; 87088; 93005; 99251; 99285; 99406; J7030; J7050; A4216; G0463; J2405

== ENCOUNTER → 2022-11-09 | Outpatient (CLI) | payer MEDICARE, OTHER, SELFPAY ==
--- NOTE | 2022-11-09 13:28 | VDLE_ITS ---
Reason For Study: DVT Procedure LEFT This is a venous duplex using B-mode, color GSV is normal. flow and spectral Doppler. EIV is partially compressible with decreased Exam performed in department. pulsatile flow noted. Compared to 06/03/2022. CFV is partially compressible with bright intraluminal echoes consistent with Chronic DVT. Pulsatile flow noted. FV is compressible, continuous flow, competent and demonstrates normal augmentation. POP V is compressible, continuous flow, competent and demonstrates normal augmentation. T/P Trunk is compressible. PTV is compressible. LT PerV is compressible. VL/Venous Duplex US, Unilateral Interpretation Summary Acute deep vein thrombosis is noted in the left external iliac vein. Chronic deep venous thrombosis noted in the left common femoral vein. Abnormal flow pattern demonstrated throughout left lower extremity. Vascular surgery consult may be beneficial. Ordering Physician: Shena Jeffers Referring Physician: Shena Jeffers Performed By: Jeanine Lockhart RVT
--- NOTE | 2022-11-09 15:17 | BD_ITS ---
STUDY: DUAL ENERGY X-RAY ABSORPTIOMETRY / DXA REASON FOR EXAM: Female, 77 years old. M85.80 - Other specified disorders of bone density and structu... TECHNIQUE: Bone Mineral Density (BMD) measurements of lumbar spine and bilateral hips were obtained. COMPARISON: None. FINDINGS: Lumbar Spine (L1-L4): g/cm2 (0.886) / T-score (-1.5) / Z-score (1.2) Findings are suggestive of osteopenia with a low fracture risk. Left Femur Total: g/cm2 (0.661) / T-score (-2.3) / Z-score (-0.3) Left Femoral Neck: g/cm2 (0.568) / T-score (-2.5) / Z-score (-0.3) Right Femur Total: g/cm2 (0.657) / T-score (-2.3) / Z-score (-0.3) Right Femoral Neck: g/cm2 (0.575) / T-score (-2.5) / Z-score (-0.2) BD/Dexa Bone Density Study IMPRESSION: The patient is considered osteopenic as outlined below according to World [place] Organization (WHO) criteria with a high fracture risk. Reference Information: The T-score is the number of standard deviations above or below the standard which is normal for young adults at their peak bone mineral density. The World Health Organization (WHO) interprets the T-scores as follows: Above -1 Normal bone density Between -1 and -2.5 Osteopenia Equal to / or below -2.5 Osteoporosis As a practical clinical guideline, osteopenia may be graded as follows: Mild -1 through -1.5 Moderate -1.6 through -2.0 Severe -2.1 through -2.4 The Z-score is the number of standard deviations above or below age-matched controls. A Z-score of less than -1.5 would be considered abnormal. References: 1. NIH Osteoporosis and Related Bone Diseases www osteo.org 2. International Society for Clinical Densitometry www iscd.org 3. National Osteoporosis Foundation www nof.org Electronically Signed: Ayden Sifuentes MD at 13:38 EST ,
== END | disposition home or self-care (01) ==
LOC: CVS 13:25
PROVIDERS: PCP Internal Medicine; Referring Provider Internal Medicine; Visit Provider Internal Medicine
DX: I82.422 Acute embolism and thrombosis of left iliac vein (principal); M85.89 Other specified disorders of bone density and structure, multiple sites
CPT/HCPCS: 77080; 93971

== ENCOUNTER 2022-11-22 14:38 | Inpatient (IN) | payer MEDICARE, OTHER, SELFPAY ==
[2022-11-22] VITALS (8 sets, daily range): BP systolic 123–142; BP diastolic 31–115; PULSE 87–122; RESP 16–30; TEMP 37–39.2; O2SAT 91–97; BMI 25.8; BMI 25.2
--- NOTE | 2022-11-22 14:54 | EKG12_ITS ---
Test Reason : GENERAL Blood Pressure : / mmHG Vent. Rate : 117 BPM Atrial Rate : 117 BPM P-R Int : 144 ms QRS Dur : 068 ms QT Int : 288 ms P-R-T Axes : 057 079 065 degrees QTc Int : 401 ms Sinus tachycardia Possible Left atrial enlargement Borderline ECG Confirmed by ANDREW MCKEON, HUGO ([id number]), photograph editor RAYMUNDO CANTU ([id number]) on 11/24/2022 2:12:13 PM Referred By: Confirmed By:HUGO MORALES MD
--- NOTE | 2022-11-22 14:55 | EDS_ITS ---
HPI History of Present Illness Chief Complaint: General Illness Informant: patient and spouse/S.O. Onset/Context/Timing Onset: Yesterday Context: Gradual Onset Timing: Continuous Quality: confused, febrile, malaised Location: generally Current Severity: Severe Maximum Severity: Severe Worsened by: nothing Relieved by: nothing Narrative Narrative: Patient started getting generally weak and confused yesterday, much worse today with inability to stand or walk as a result. Running a fever up to 103 according to the who provides most of the history. Patient is confused, we attempt to get some history from her, but it is very limited because she is confused. She tells nursing initially that she has no pain, then she tells me that her chest is hurting and that it is a 9, but then she reverts back and states that she does not have any chest pain and has no pain anywhere or headache. states she has COPD, she was on oxygen but was doing well with the last couple weeks and decided to go off of her oxygen as they were watching her pulse oximetry and it was in the 92-94 range. This includes yesterday before she was feeling poorly where she walked up a hill without any dyspnea or issues. has not noticed any coughing or shortness of breath recently. She is chronically incontinent of urine. She has had no falls or injuries today. She is not vaccinated against COVID or influenza. She is a type I diabetic and he has been checking her blood sugars and they have been in the 200s. She has also had a couple of minor episodes of emesis. 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 Memory loss On home oxygen therapy Osteoporosis Pulmonary embolism, bilateral Smoker Home Medications amlodipine 5 mg-benazepril 10 mg capsule (Lotrel) 1 cap PO DAILY blood pressure 09/08/21 [History Last Taken 09/07/22] rivaroxaban 20 mg tablet (Xarelto) 20 mg PO DAILY blood thinner 04/23/22 [History Last Taken 09/08/22] oxybutynin chloride 10 mg tablet,extended release 24 hr 10 mg PO DAILY bladder 09/08/22 [History Last Taken 09/07/22] simvastatin 10 mg tablet 10 mg PO DAILY cholesterol 09/08/22 [History Last Taken 09/07/22] insulin aspart U-100 100 unit/mL subcutaneous solution (Novolog U-100 Insulin aspart) 20 unit (0.2 mL) subcut TID #20 mL 10/06/22 [Rx Last Taken Unknown] insulin glargine 100 unit/mL subcutaneous solution (Lantus U-100 Insulin) 10 unit (0.1 mL) subcut QPM #10 mL 10/06/22 [Rx Last Taken Unknown] levothyroxine 150 mcg tablet 150 mcg PO DAILY thyroid #30 tabs 11/11/22 [Rx Last Taken Unknown] zoledronic acid 5 mg/100 mL in mannitol 5 %-water intravenous piggybck 1 ea .Route ONCE #100 mL 11/18/22 [Rx Last Taken Unknown] Allergy/AdvReac Type Severity Reaction Status Date / Time ciprofloxacin [From Cipro] Allergy Intermediate hives Verified 11/22/22 14:44 Sulfa (Sulfonamide Allergy Intermediate hives Verified 11/22/22 14:44 Antibiotics) Family History Father Diabetes Respiratory disease Surgical History S/P insertion of insulin pump Social History household members: significant other and none number of children: 2 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 Smoking Status: Former smoker alcohol intake: current alcohol intake frequency: a few times a month substance use type: does not use ROS ROS ED Review of Systems ROS Unobtainable: due to mental status Constitutional Constitutional ED: Reports fatigue, fever(s), malaise and weakness Gastrointestinal Gastrointestinal: Reports nausea and vomiting Genitourinary Genitourinary ED: Reports urinary incontinence Neurologic Neurologic: Reports confusion; Denies headache(s) EXAM Physical Exam Const Vital Signs: 11/22/22 14:39 11/22/22 15:21 Temperature 100.8 F H Temperature Source Temporal Pulse Rate 122 H Respiratory Rate 24 H Blood Pressure 142/115 H Blood Pressure Mean 124 Pulse Ox 93 91 Oxygen Delivery Method Room Air Nasal Cannula Oxygen Flow Rate (L/min) 2 Positive well nourished and well developed Constitutional Narrative: lethargic General Appearance ED: well developed HEENT Reports moist mucous membranes normocephalic and atraumatic Eyes PERRL and EOMs intact bilaterally Neck full ROM, no lymphadenopathy and supple Neck Narrative: No meningismus. Chest Wall inspection of chest normal and palpation of chest normal Resp normal respiratory effort Resp Narrative: Rales right base, otherwise diminished/clear, trachea midline, no respiratory distress. Cardio regular rate, regular rhythm and no murmurs Rate: tachycardic GI non-tender and non-distended Auscultation: normoactive bowel sounds Palpation: soft Back/Spine no CVA tenderness General Back: other FROM Extremity normal to inspection General Extremety ED: Negative for edema, pulses abnormal or tenderness General Extremity: Negative for edema or pulses abnormal Neuro CN's II-XII intact bilaterally and no sensory deficits noted Neuro Narrative: Lethargic, eyes open, confused. Is able to answer questions. Oriented to person, her , place, but not time/month/year. Moving all 4 extremities equally, weak. Srini Coma Scale: document GCS findings Spontaneous Obeys Commands Confused 14 Sensorium / Orientation: awake and alert Motor Exam: general weakness Skin no rashes or lesions noted and no wounds Sepsis Attestation Sepsis Alert: Yes Sepsis Attestation: Agree w/Sepsis Date exam was performed: 11/22/22 Time exam was performed: 14:50 Possible Source of Sepsis: Pulmonary, Genitourinary and Unknown Sepsis Organ Dysfunction Criteria Present: Lactic Acid > 2 mmol/L and New/Unexplained change in mental status Supportive Findings: qSOFA (Quick SOFA) Score for Sepsis from [email or web address] on 11/22/2022 All calculations should be rechecked by clinician prior to use RESULT SUMMARY: 2 points qSOFA Score High Risk qSOFA Scores 2-3 are associated with a 3- to 14-fold increase in in-hospital mortality. Assess for evidence of organ dysfunction with blood testing including serum lactate and calculation of the full SOFA Score. Patients meeting these qSOFA criteria should have infection considered even if it was previously not. INPUTS: Altered mental status ?> 1 = Yes Respiratory rate &ge;22 ?> 1 = Yes Systolic BP &le;100 ?> 0 = No Fluid Resuscitation Fluid resuscitation indicated?: Yes Fluid Resuscitation ordered: 30 ml/kg fluid bolus ordered Sepsis Note Date exam was performed: 11/22/22 Time exam was performed: 16:00 Sepsis Attestation: Sepsis re-evaluation was performed MDM MDM MDM Narrative Medical decision making narrative: Patient was recently seen by her entry level finance as an outpatient, 11/18 which was 4 days ago. I reviewed that note. Other than having some memory issues and being unreliable with regards to taking her osteoporosis pill, the encounter seemed relatively unremarkable. Concern today is that she has an acute infection causing her fever and delirium. Septic work-up obtained, she was given IV fluids, Zofran, and Tylenol. Nursing felt like the patient was unable to swallow pills or liquid safely, so we canceled the oral Tylenol and replaced it with a suppository. 1 view chest x- ray my interpretation shows some chronic abnormalities in the bases that may represent early pneumonia in right base. Radiology in agreement. Her urine, however, appears to be lighting up several infectious indicators suggesting that is the source. She was pancultured and started on Rocephin and Zithromax. Blood pressure remained stable. Her pulse oximetry was borderline at 90%, so we placed 2 L on her, making her 91-93%. Discussed w/ hospitalist Dr. Paulson. Lab Data Attestation: I reviewed the patient's lab results. Labs: Laboratory Results - last 24 hr 11/22/22 11/22/22 11/22/22 14:50 14:50 14:50 WBC 14.8 H RBC 4.39 Hgb 11.9 L Hct 37.4 MCV 85.2 MCH 27.1 MCHC 31.8 L RDW Std Deviation 48.1 H RDW Coeff of Kristyn 15.3 H Plt Count 328 MPV 10.8 Immature Gran % (Auto) 0.400 Neut % (Auto) 85.9 H Lymph % (Auto) 6.9 L Hardin % (Auto) 6.3 Eos % (Auto) 0.0 Baso % (Auto) 0.5 Absolute Neuts (auto) 12.7 H Absolute Lymphs (auto) 1.02 Nucleated RBC % 0 PT 16.0 H INR 1.3 APTT 36.3 H Sodium 138 Potassium 4.2 Chloride 103 Carbon Dioxide 24.0 Anion Gap 11 BUN 23 H Creatinine 1.19 H Estim Creat Clear Calc 33.10 Est GFR (MDRD) Af Amer 56 L Est GFR (MDRD) Non-Af 47 L BUN/Creatinine Ratio 19.3 Glucose 265 H Lactic Acid Calcium 9.3 Total Bilirubin 0.40 AST 13 L ALT 15 Alkaline Phosphatase 138 H Troponin I High Sens 20 Total Protein 7.1 Albumin 2.6 L Globulin 4.5 H Albumin/Globulin Ratio 0.6 L Urine Color Urine Clarity Urine pH Ur Specific [place] Urine Protein Urine Glucose (UA) Urine Ketones Urine Occult Blood Urine Nitrite Urine Bilirubin Urine Urobilinogen Ur Leukocyte Esterase Urine RBC Urine WBC Ur Squamous Epith Cells Urine Bacteria Urine Mucus 11/22/22 11/22/22 14:50 15:15 WBC RBC Hgb Hct MCV MCH MCHC RDW Std Deviation RDW Coeff of Kristyn Plt Count MPV Immature Gran % (Auto) Neut % (Auto) Lymph % (Auto) [place] % (Auto) Eos % (Auto) Baso % (Auto) Absolute Neuts (auto) Absolute Lymphs (auto) Nucleated RBC % PT INR APTT Sodium Potassium Chloride Carbon Dioxide Anion Gap BUN Creatinine Estim Creat Clear Calc Est GFR (MDRD) Af Amer Est GFR (MDRD) Non-Af BUN/Creatinine Ratio Glucose Lactic Acid 3.5 H* Calcium Total Bilirubin AST ALT Alkaline Phosphatase Troponin I High Sens Total Protein Albumin Globulin Albumin/Globulin Ratio Urine Color Yellow Urine Clarity Clear Urine pH 6.0 Ur Specific [place] 1.020 Urine Protein 30 H Urine Glucose (UA) 1000 H Urine Ketones 15 H Urine Occult Blood 50 H Urine Nitrite Positive H Urine Bilirubin Negative Urine Urobilinogen Normal Ur Leukocyte Esterase 500 H Urine RBC 0 SEEN Urine WBC 25-50 SEEN Ur Squamous Epith Cells 0 SEEN Urine Bacteria 2+ Urine Mucus 0 SEEN Radiography Diagnostic Testing: Clinical Impression(s) from Imaging Studies Chest X-Ray 11/22/22 15:35 IMPRESSION: Increased markings at the lung bases suggestive of scarring with superimposed atelectasis and/or early infiltrates worse on the right side. Electronically Signed: Ayden Sifuentes MD at 15:48 EST , Rhythm Strip Rhythm Strip: Sinus Tach Rate: 120 Ectopy: None EKG Initial EKG: Attestation: I personally reviewed and interpreted this EKG as follows: Interpretation: No Acute Injury Pattern and Sinus Tachycardia Prior EKG tracings: available for review Prior: Unchanged Discharge Plan Dx/Rx/DC Orders Clinical Impression: Acute UTI, Acute metabolic encephalopathy, Sepsis Disposition Disposition: Acute Care Hospital [facility]
[2022-11-22 15:09] LABS: Absolute Lymphocyte Count 1.02 X10^3/uL (0.83-4.51); Absolute Neutrophil Count 12.7 X10^3/uL (2.0-7.7); Basophil# 0.07 X10^3/uL; Basophil% 0.5 % (0-1); Hematocrit 37.4 % (37-47); Hemoglobin 11.9 g/dL (12.0-15.0); Lymphocyte # 1.02 X10^3/ul (0.83-4.51); Lymphocyte % 6.9 % (19-41); Mean Corp Hgb Conc 31.8 g/dL (32-36); Mean Corpuscular Hgb 27.1 pg (27.0-32.0); Mean Corpuscular Volume 85.2 fL (81-99); Mean Platelet Vol. 10.8 fl (6.2-12.0); Monocyte# 0.93 X10^3/uL; Monocyte% 6.3 % (0-10); NRBC Flagged by Analyzer 0 % (0-5); Neutrophil # 12.74 X10^3/uL (2.7-7.7); Neutrophil % 85.9 % (47-70); Platelet Count 328 K/mm3 (150-450); RBC Distribution Width CV 15.3 % (11.6-14.6); RBC Distribution Width SD 48.1 fl (35.1-43.9); Red Blood Count 4.39 M/mm3 (4.2-5.4); White Blood Count 14.8 K/mm3 (4.4-11.0)
[2022-11-22 15:16] LABS: International Normalized Ratio 1.3
[2022-11-22 15:17] LABS: Partial Thromboplast Time 36.3 Seconds (24.1-36.2)
[2022-11-22 15:24] LABS: Mucous, Urine 0 SEEN /hpf (<or=2+); Red Blood Cells-Urine 0 SEEN /hpf (0-5); Squamous Epithelial Cells - UA 0 SEEN /hpf (5-10)
[2022-11-22] MEDS: Ondansetron 4 MG/2 ML Vial IV (15:25)
[2022-11-22 15:28] LABS: ALB/GLOB Ratio 0.6 RATIO (0.9-2.4); AST(SGOT) 13 U/L (15-37); Alanine Aminotransfer ALT/SGPT 15 U/L (13-56); Albumin, Serum 2.6 g/dL (3.2-5.0); Alkaline Phosphatase 138 U/L (45-117); Anion Gap 11 (5-15); BUN 23 mg/dL (7-18); BUN/Creat Ratio 19.3 RATIO (10-20); Calcium,Total 9.3 mg/dL (8.5-10.1); Chloride 103 mmol/L (98-107); Creatinine, Serum 1.19 mg/dL (0.55-1.02); EST Glomerular Filtration Rate 47 mL/min (>60); Est Glom Filt Rate - Afr Amer 56 mL/min (>60); Globulin 4.5 g/dL (2.2-4.2); Glucose 265 mg/dL (74-106); Potassium 4.2 mmol/L (3.5-5.1); Protein, Total 7.1 g/dL (6.4-8.2); Sodium Level 138 mmol/L (136-145); Troponin-I HS 20 pg/mL (3.0-54.0)
[2022-11-22 15:30] LABS: Color, Urine Yellow (Yellow); Glucose, Dipstick 1000 mg/dl (Normal); Ketone-Dipstick 15 mg/dl (Negative); Leukocyte Esterase-Dipstick 500 /ul (Negative); Nitrite-Dipstick Positive (Negative); Occult Blood-Urine 50 /ul (Negative); Protein-Dipstick 30 mg/dl (Negative); Urine Bilirubin Dipstick Negative (Negative); Urine Clarity Clear (Clear); Urine Urobilinogen Normal (Normal)
--- NOTE | 2022-11-22 15:31 | ED.RN ---
patient unable to swallow tylenol at this time. Dr. Johnston notified. will put in for suppository
--- NOTE | 2022-11-22 15:35 | RAD_ITS ---
STUDY: X-RAY CHEST REASON FOR EXAM: Female, 77 years old. Fever TECHNIQUE: Single AP portable view of the chest. COMPARISON: Comparison is made with prior study dated 09/08/2022. FINDINGS: EKG electrodes are seen. Bilateral breast prostheses. Increased markings at both lung bases likely worse on the right side. This is suggestive of bibasilar scarring and possible superimposed infiltrates. There is no demonstrated pleural abnormality. Normal size heart. Normal mediastinum and uli. Normal visualized pulmonary arteries. There is atherosclerotic calcification of the aortic arch with tortuosity. Normal visualized thoracic spine. Calcific tendinitis of the right shoulder. There is no demonstrated abnormality of the visualized soft tissue structures of the upper abdomen. RAD/Chest 1 View (Portable) IMPRESSION: Increased markings at the lung bases suggestive of scarring with superimposed atelectasis and/or early infiltrates worse on the right side. Electronically Signed: Ayden Sifuentes MD at 15:48 EST ,
[2022-11-22 15:37] LABS: Lactic Acid 3.5 mmol/L (0.4-1.9)
[2022-11-22 15:50] LABS: White Blood Cells 25-50 SEEN /hpf (0-5)
[2022-11-22 15:51] LABS: Bacteria 2+ /hpf (None Seen)
[2022-11-22] MEDS: Acetaminophen 650 MG Suppository RC (15:56)
--- NOTE | 2022-11-22 16:16 | PCM.HP.STD ---
[facility] - General General Date of Service: 11/22/22 Chief Complaint: confusion HPI Narrative LIVIER SMALLS, is a 77 F who presents with confusion. History is obtained through the emergency room physician who spoke with the patient's . is not present on my evaluation and the patient is too confused to provide any history. But the patient apparently was doing well yesterday, they went to a restaurant with no difficulties and patient was able to go up the hill apparently. Today, patient noted to be confused and incontinent. Sent to the emergency room and was noted to be tachycardic, confused. Patient did receive IV fluids as patient's lactic acid was 3.5. Patient had a urinalysis as concerning for UTI as well as infiltrate on chest x-ray so patient did receive ceftriaxone and azithromycin. 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 Memory loss On home oxygen therapy Osteoporosis Pulmonary embolism, bilateral Smoker Home Medications amlodipine 5 mg-benazepril 10 mg capsule (Lotrel) 1 cap PO DAILY blood pressure 09/08/21 [History Last Taken 09/07/22] rivaroxaban 20 mg tablet (Xarelto) 20 mg PO DAILY blood thinner 04/23/22 [History Last Taken 09/08/22] oxybutynin chloride 10 mg tablet,extended release 24 hr 10 mg PO DAILY bladder 09/08/22 [History Last Taken 09/07/22] simvastatin 10 mg tablet 10 mg PO DAILY cholesterol 09/08/22 [History Last Taken 09/07/22] insulin aspart U-100 100 unit/mL subcutaneous solution (Novolog U-100 Insulin aspart) 20 unit (0.2 mL) subcut TID #20 mL 10/06/22 [Rx Last Taken Unknown] insulin glargine 100 unit/mL subcutaneous solution (Lantus U-100 Insulin) 10 unit (0.1 mL) subcut QPM #10 mL 10/06/22 [Rx Last Taken Unknown] levothyroxine 150 mcg tablet 150 mcg PO DAILY thyroid #30 tabs 11/11/22 [Rx Last Taken Unknown] zoledronic acid 5 mg/100 mL in mannitol 5 %-water intravenous piggybck 1 ea .Route ONCE #100 mL 01/26/23 [Rx Last Taken Unknown] Allergy/AdvReac Type Severity Reaction Status Date / Time ciprofloxacin [From Cipro] Allergy Intermediate hives Verified 11/22/22 14:44 Sulfa (Sulfonamide Allergy Intermediate hives Verified 11/22/22 14:44 Antibiotics) Family History Father Diabetes Respiratory disease Surgical History S/P insertion of insulin pump Social History household members: significant other and none number of children: 2 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 Smoking Status: Former smoker alcohol intake: current alcohol intake frequency: a few times a month substance use type: does not use ROS Review of Systems ROS Unobtainable: due to encephalopathy Vital Signs Vital Signs Vital Signs: 11/22/22 14:39 11/22/22 15:21 11/22/22 16:08 Temperature 38.2 C H 39.2 C H Temperature Source Temporal Core Pulse Rate 122 H 114 H Respiratory Rate 24 H 30 H Blood Pressure 142/115 H 142/60 H Blood Pressure Mean 124 87 Pulse Ox 93 91 96 Oxygen Delivery Method Room Air Nasal Cannula Nasal Cannula Oxygen Flow Rate (L/min) 2 2 Weight Weight: 68.2 kg Body Mass Index (BMI) 25.8 Physical Exam Const alert and no apparent distress Constitutional Narrative: Confused HEENT normocephalic and head/scalp atraumatic HEENT Narrative: Mucous membranes dry Eyes Eyes Narrative: No icterus Neck no lymphadenopathy Neck Narrative: No thyromegaly Resp normal respiratory effort and no retractions Cardio Cardio Narrative: Tachycardic but regular GI normal to inspection, nondistended, normoactive bowel sounds, soft to palpation, non-tender and non-distended Extremity normal to inspection and full ROM Neuro moves all extremities and no focal motor deficits Results Lab / Micro Data Result Diagrams: 11/22/22 14:50 11/22/22 14:50 Labs: Laboratory Results - last 24 hr 11/22/22 14:50: WBC 14.8 H, RBC 4.39, Hgb 11.9 L, Hct 37.4, MCV 85.2, MCH 27.1, MCHC 31.8 L, RDW Std Deviation 48.1 H, RDW Coeff of Kristyn 15.3 H, Plt Count 328, MPV 10.8, Immature Gran % (Auto) 0.400, Neut % (Auto) 85.9 H, Lymph % (Auto) 6.9 L, [place] % (Auto) 6.3, Eos % (Auto) 0.0, Baso % (Auto) 0.5, Absolute Neuts (auto) 12.7 H, Absolute Lymphs (auto) 1.02, Nucleated RBC % 0 11/22/22 14:50: PT 16.0 H, INR 1.3, APTT 36.3 H 11/22/22 14:50: Sodium 138, Potassium 4.2, Chloride 103, Carbon Dioxide 24.0, Anion Gap 11, BUN 23 H, Creatinine 1.19 H, Estim Creat Clear Calc 33.10, Est GFR (MDRD) Af Amer 56 L, Est GFR (MDRD) Non-Af 47 L, BUN/Creatinine Ratio 19.3, Glucose 265 H, Calcium 9.3, Total Bilirubin 0.40, AST 13 L, ALT 15, Alkaline Phosphatase 138 H, Troponin I High Sens 20, Total Protein 7.1, Albumin 2.6 L, Globulin 4.5 H, Albumin/Globulin Ratio 0.6 L 11/22/22 14:50: Lactic Acid 3.5 H* 11/22/22 15:15: Urine Color Yellow, Urine Clarity Clear, Urine pH 6.0, Ur Specific [place] 1.020, Urine Protein 30 H, Urine Glucose (UA) 1000 H, Urine Ketones 15 H, Urine Occult Blood 50 H, Urine Nitrite Positive H, Urine Bilirubin Negative, Urine Urobilinogen Normal, Ur Leukocyte Esterase 500 H, Urine RBC 0 SEEN, Urine WBC 25-50 SEEN, Ur Squamous Epith Cells 0 SEEN, Urine Bacteria 2+, Urine Mucus 0 SEEN Micro: Microbiology 11/22/22 15:06 Nasal Secretion SARS-CoV-2 & FLU Antigen (Rapid) - Final Rhythm Strip Rhythm Strip: Sinus Tach Rate: 120 Ectopy: None Radiology Impression Chest X-Ray 11/22/22 15:35 IMPRESSION: Increased markings at the lung bases suggestive of scarring with superimposed atelectasis and/or early infiltrates worse on the right side. Electronically Signed: Ayden Sifuentes MD at 15:48 EST , Assessment & Plan Assessment/Plan (1) Sepsis: PLAN: qSOFA score of 2 with tachypnea and change in mental status Suspected urinary or pulmonary source. Continue with antibiotics with ceftriaxone and azithromycin Follow-up cultures and adjust antibiotics accordingly COVID-19 and influenza were negative Patient did receive IV fluids emergency room and we will administer another liter of IV fluids. (2) Acute metabolic encephalopathy: PLAN: Secondary to sepsis and underlying infection and dementia Avoid potentiating medications (3) Acute UTI: PLAN: Continue with antibiotics Follow-up culture (4) Pneumonia: PLAN: Continue with antibiotics as above Check urinary engines for Streptococcus Legionella PLAN: Plan Chronic conditions Diabetes mellitus type 1: Continue with glargine as well as prandial insulin. We will also add sliding scale insulin Osteoporosis: Hold her zoledronic acid for now Hypothyroidism: Continue with levothyroxine COPD: Appears compensated this time. History VTE: Continue with apixaban PT prophylaxis: Not indicated as patient is already anticoagulated. Charges/Coding Visit Charges Inpatient E&M: 74063 Init Hosp L3
[2022-11-22] MEDS: Ceftriaxone 1 GM/50 ML BAG IV (16:54)
[2022-11-22 19:02] LABS: Reflex Lactate? Y
[2022-11-22] MEDS: 0.9% Normal Saline 1,000 ML 150 ML IV (19:02)
[2022-11-22 19:56] LABS: Lactic Acid 0.7 mmol/L (0.4-1.9)
[2022-11-22] MEDS: Insulin Glargine-YFGN 100 UNIT/ML Pen 10 UNIT SC (21:29)
[2022-11-22] MEDS: Atorvastatin Calcium 10 MG Tablet 5 MG PO (21:31)
[2022-11-22] MEDS: guaiFENesin 1,200 MG Tablet 1200 MG PO (21:31)
[2022-11-22 21:55] LABS: Bedside Glucose 311 mg/dL (74-106)
[2022-11-22] MEDS: Insulin Lispro 100 UNIT/ML INSULN.PEN SC (22:38)
[2022-11-23] VITALS (11 sets, daily range): BP systolic 115–161; BP diastolic 39–75; PULSE 101–130; RESP 16–28; TEMP 36.7–37.9; O2SAT 2–100
[2022-11-23] MEDS: hydrALAZINE 20 MG/ML Vial 10 MG IV (05:26)
[2022-11-23] MEDS: Levothyroxine 150 MCG Tablet PO (05:31)
[2022-11-23] MEDS: Metoprolol Tartrate 5 MG/5 ML Vial IV (06:32)
[2022-11-23 06:45] LABS: Absolute Lymphocyte Count 0.95 X10^3/uL (0.83-4.51); Absolute Neutrophil Count 9.9 X10^3/uL (2.0-7.7); Basophil# 0.08 X10^3/uL; Basophil% 0.7 % (0-1); Eosinophil# 0.01 X10^3/uL; Eosinophils% 0.1 % (0-5); Hemoglobin 10.6 g/dL (12.0-15.0); Lymphocyte # 0.95 X10^3/ul (0.83-4.51); Lymphocyte % 7.8 % (19-41); Mean Corp Hgb Conc 32.1 g/dL (32-36); Mean Corpuscular Hgb 27.5 pg (27.0-32.0); Mean Corpuscular Volume 85.7 fL (81-99); Mean Platelet Vol. 11.2 fl (6.2-12.0); Monocyte% 9.9 % (0-10); NRBC Flagged by Analyzer 0 % (0-5); Neutrophil # 9.85 X10^3/uL (2.7-7.7); Neutrophil % 81.1 % (47-70); Platelet Count 276 K/mm3 (150-450); RBC Distribution Width CV 15.5 % (11.6-14.6); RBC Distribution Width SD 48.6 fl (35.1-43.9); Red Blood Count 3.85 M/mm3 (4.2-5.4); White Blood Count 12.1 K/mm3 (4.4-11.0)
[2022-11-23 07:35] LABS: ALB/GLOB Ratio 0.6 RATIO (0.9-2.4); AST(SGOT) 42 U/L (15-37); Alanine Aminotransfer ALT/SGPT 27 U/L (13-56); Albumin, Serum 2.3 g/dL (3.2-5.0); Alkaline Phosphatase 129 U/L (45-117); Anion Gap 6 (5-15); BUN 17 mg/dL (7-18); BUN/Creat Ratio 21.5 RATIO (10-20); Calcium,Total 8.7 mg/dL (8.5-10.1); Chloride 106 mmol/L (98-107); Creatinine, Serum 0.79 mg/dL (0.55-1.02); EST Glomerular Filtration Rate 75 mL/min (>60); Est Glom Filt Rate - Afr Amer 90 mL/min (>60); Estimated Creatinine Clearance 39.39 ml/min; Globulin 3.9 g/dL (2.2-4.2); Glucose 233 mg/dL (74-106); Protein, Total 6.2 g/dL (6.4-8.2); Sodium Level 140 mmol/L (136-145)
[2022-11-23] MEDS: Acetaminophen 325 MG Tablet 650 MG PO (07:35)
[2022-11-23] MEDS: Insulin Lispro 100 UNIT/ML INSULN.PEN 20 UNIT SC (07:38)
[2022-11-23] MEDS: Insulin Lispro 100 UNIT/ML INSULN.PEN SC ×3 (07:38→22:24)
[2022-11-23] MEDS: Rivaroxaban 20 MG Tablet PO (07:39)
--- NOTE | 2022-11-23 07:45 | PN.HOSP_ITS ---
Subjective Subjective Follow-up sepsis. Feeling significantly better, confusion has resolved Objective Data Objective Data Vital Signs: Vital Signs Temp Pulse Resp BP Pulse Ox O2 Del Method O2 Flow Rate 98.4 F 127 H 18 161/75 H 95 Nasal Cannula 2 11/23/22 05:26 11/23/22 06:32 11/23/22 05:26 11/23/22 05:26 11/23/22 05:26 11/23/22 05:26 11/23/22 05:26 Oxygen Flow Rate (L/min) 2 Oxygen Delivery Method Nasal Cannula Weight: 66.7 kg Body Mass Index (BMI) 25.2 Intake & Output: Intake and Output for Last 24 Hours 11/21/22 11/22/22 11/23/22 23:59 23:59 23:59 Intake Total 2545 / 2745 1200 / 1200 Output Total 1200 / 1200 Balance 2545 / 2245 0 / 0 Lab / Micro Data Result Diagrams: 11/23/22 05:34 11/23/22 05:34 Labs: Laboratory Results - last 24 hr 11/22/22 14:50: WBC 14.8 H, RBC 4.39, Hgb 11.9 L, Hct 37.4, MCV 85.2, MCH 27.1, MCHC 31.8 L, RDW Std Deviation 48.1 H, RDW Coeff of Kristyn 15.3 H, Plt Count 328, MPV 10.8, Immature Gran % (Auto) 0.400, Neut % (Auto) 85.9 H, Lymph % (Auto) 6.9 L, [place] % (Auto) 6.3, Eos % (Auto) 0.0, Baso % (Auto) 0.5, Absolute Neuts (auto) 12.7 H, Absolute Lymphs (auto) 1.02, Nucleated RBC % 0 11/22/22 14:50: PT 16.0 H, INR 1.3, APTT 36.3 H 11/22/22 14:50: Sodium 138, Potassium 4.2, Chloride 103, Carbon Dioxide 24.0, Anion Gap 11, BUN 23 H, Creatinine 1.19 H, Estim Creat Clear Calc 33.10, Est GFR (MDRD) Af Amer 56 L, Est GFR (MDRD) Non-Af 47 L, BUN/Creatinine Ratio 19.3, Glucose 265 H, Calcium 9.3, Total Bilirubin 0.40, AST 13 L, ALT 15, Alkaline Phosphatase 138 H, Troponin I High Sens 20, Total Protein 7.1, Albumin 2.6 L, Globulin 4.5 H, Albumin/Globulin Ratio 0.6 L 11/22/22 14:50: Lactic Acid 3.5 H* 11/22/22 15:15: Urine Color Yellow, Urine Clarity Clear, Urine pH 6.0, Ur Specific [place] 1.020, Urine Protein 30 H, Urine Glucose (UA) 1000 H, Urine Ketones 15 H, Urine Occult Blood 50 H, Urine Nitrite Positive H, Urine Bilirubin Negative, Urine Urobilinogen Normal, Ur Leukocyte Esterase 500 H, Urine RBC 0 SEEN, Urine WBC 25-50 SEEN, Ur Squamous Epith Cells 0 SEEN, Urine Bacteria 2+, Urine Mucus 0 SEEN 11/22/22 19:24: Lactic Acid 0.7 11/22/22 20:32: POC Glucose 311 H 11/23/22 05:34: WBC 12.1 H, RBC 3.85 L, Hgb 10.6 L, Hct 33.0 L, MCV 85.7, MCH 27.5, MCHC 32.1, RDW Std Deviation 48.6 H, RDW Coeff of Kristyn 15.5 H, Plt Count 276, MPV 11.2, Immature Gran % (Auto) 0.400, Neut % (Auto) 81.1 H, Lymph % (Auto) 7.8 L, [place] % (Auto) 9.9, Eos % (Auto) 0.1, Baso % (Auto) 0.7, Absolute Neuts (auto) 9.9 H, Absolute Lymphs (auto) 0.95, Nucleated RBC % 0 11/23/22 05:34: Sodium 140, Potassium 4.0, Chloride 106, Carbon Dioxide 28.0, Anion Gap 6, BUN 17, Creatinine 0.79, Estim Creat Clear Calc 39.39, Est GFR (MDRD) Af Amer 90, Est GFR (MDRD) Non-Af 75, BUN/Creatinine Ratio 21.5 H, Glucose 233 H, Calcium 8.7, Total Bilirubin 0.30, AST 42 H, ALT 27, Alkaline Phosphatase 129 H, Total Protein 6.2 L, Albumin 2.3 L, Globulin 3.9, Albumin/Globulin Ratio 0.6 L Micro: Microbiology 11/22/22 14:50 Blood Culture (Wb) - Anticubital Right Blood Culture - Preliminary 11/22/22 15:06 Nasal Secretion SARS-CoV-2 & FLU Antigen (Rapid) - Final Radiography Diagnostic Testing: Radiology Impression Chest X-Ray 11/22/22 15:35 IMPRESSION: Increased markings at the lung bases suggestive of scarring with superimposed atelectasis and/or early infiltrates worse on the right side. Electronically Signed: Ayedn Sifuentes MD at 15:48 EST , Rhythm Strip Rhythm Strip: Sinus Tach Rate: 120 Ectopy: None Physical Exam Narrative General: Alert, oriented, no apparent distress HEENT: Atraumatic, normocephalic Eyes: Anicteric, normal conjunctiva, extraocular movements grossly intact Neck: Supple Respiratory: Clear to auscultation bilaterally, normal respiratory effort Cardiovascular: Regular rate and rhythm GI: Soft, nontender, nondistended Extremities: No edema Musculoskeletal: Moving all extremities Neuro: No overt focal neurological deficits Skin: No rashes appreciated Psych: Cooperative Assessment & Plan Assessment/Plan (1) Sepsis: (2) Acute metabolic encephalopathy: (3) Acute UTI: (4) Pneumonia: PLAN: Plan 77-year-old with history of COPD, diabetes, hypothyroidism, bilateral PEs, hypertension who presented 11/22/2022 with confusion for 1 day. In the ED history obtained from the . In the ED she was noted to be tachycardic and confused and was given IV fluids as her lactic was 3.5. Was noted to have infiltrate on chest x-ray as well as UA concerning for UTI and she was given Rocephin and azithromycin. 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's Received fluids per protocol Significantly improved There was a query if she may have pneumonia but symptoms and x-ray not is convincing, will follow urinary antigens Will likely discontinue azithromycin if urinary antigens are negative #Acute metabolic encephalopathy Secondary to sepsis and underlying infection on top of her underlying dementia Treat underlying cause Significantly improved #History of bilateral pulmonary embolism Xarelto #Hypothyroidism Levothyroxine #Hypertension Continue amlodipine and lisinopril #COPD Does not appear to be on any underlying medications next and albuterol as needed #Type 1 diabetes mellitus Continue glargine, sliding scale insulin was added #DVT ppx: On Xarelto Lizz Maravilla MD Time spent in the patient's overall evaluation,decision-making process, review of diagnostic data, adjustment of management, discussion with other providers, nursing nursing and ancillary staff involved in patient's care documentation, 30 minutes Charges/Coding Visit Charges Inpatient E&M: 60774 Subs Hosp L2
[2022-11-23 07:51] LABS: Bedside Glucose 236 mg/dL (74-106)
[2022-11-23 07:51] LABS: Hemoglobin A1c 7.9 % (3.8-5.6)
[2022-11-23] MEDS: amLODIPine 5 MG Tablet PO (09:44)
[2022-11-23] MEDS: guaiFENesin 1,200 MG Tablet 1200 MG PO ×2 (09:44→21:58)
[2022-11-23] MEDS: Tolterodine Tartrate 2 MG CAP.SA PO (09:44)
[2022-11-23] MEDS: Lisinopril 10 MG Tablet PO (09:45)
--- NOTE | 2022-11-23 10:46 | NURSING ---
Patient reports continuous glucose monitor reads 55 ACCU Check performed result 120. KRISTINE Banks notified. Patient alert and oriented at bedside.
[2022-11-23 11:05] LABS: Bedside Glucose 120 mg/dL (74-106)
--- NOTE | 2022-11-23 13:24 | CASEMGMT ---
RN LOVE TIRE FABRICATOR CM to room to meet with patient for initial transition planning/care coordination assessment. KRISTINE ALEMAN introduced self and role at [facility]. Pt voices understanding and consents to assessment at this time. Pt sitting up in chair in bed in no distress at this time. Pt attempted to answer some the questions initially, but unable to recall her address or her PCP. Pt does have history of underlying cognitive/memory issues. Pt's sig other, Dillon, is her POA, which is on file @ [facility] and pt also agreeable to RN LOVE calling him for further information. Call placed to Don at this time. The following information obtained from him. Care providers, pharmacy, and demographics verified/updated at this time. PCP: Dr Jeffers Specialists: Dr Ceja/Delfina Velasquez,PRODUCTION ADMINISTRATIVE ASSISTANT-endocrinology Preferred [facility]acy: [facility] Insurance: [facility] A/B, [facility] Prescription Benefit: Yes Medications: Pt has all of her medications, insulin, and supplies @ home. Living Will/HPOA: Don states pt has LW and made aware it is not on file @ [facility]. He states will bring it in if he can locate it. Pt has HPOA, which is Don, and document is on-file @ [facility]. LNOK: Sig other/POA, Dillon. SonAndrea (lives in [place]). Living Arrangements: Pt lives with Dillon lucero in a single story condo w/no steps to enter. Don states she is independent bathing but he does assist her with dsg as needed. Don states he is w/pt / and manages all of her medications and appts and does all home mgmt tasks. Transportation: Sig other, Don. DME: tub/shower chair, O2 at 2l/min from [employer]. Pt has concentrator and portable tanks, which he can bring in when pt ready for discharge. They rent a portable oxygen concentrator when they go on trips. They also have a pulse ox, Alivia glucometer system, and grab bars. SNF/HHC: No hx of SNF. Has had [facility]HC in the past. Discussed discharge planning w/Don. Don declines wanting any HHC at this time. Plan: Home w/support of Sig other/Don and discharge plans in place. Ariela FELIZ RN, CM
[2022-11-23 16:16] LABS: Bedside Glucose 407 mg/dL (74-106)
[2022-11-23 21:47] LABS: Glucose 550 mg/dL (74-106)
[2022-11-23 21:55] LABS: Bedside Glucose > 500 mg/dL (74-106)
[2022-11-23] MEDS: Insulin Glargine-YFGN 100 UNIT/ML Pen 10 UNIT SC (21:57)
[2022-11-23] MEDS: Atorvastatin Calcium 10 MG Tablet 5 MG PO (21:58)
[2022-11-23] MEDS: 0.9% Normal Saline 1,000 ML 100 ML IV (22:30)
[2022-11-24] VITALS (14 sets, daily range): BP systolic 139–163; BP diastolic 51–69; PULSE 104–165; RESP 18–28; TEMP 36.5–37.3; O2SAT 92–99
[2022-11-24] MEDS: Levothyroxine 150 MCG Tablet PO (05:31)
[2022-11-24 06:19] LABS: Absolute Lymphocyte Count 1.01 X10^3/uL (0.83-4.51); Absolute Neutrophil Count 8.2 X10^3/uL (2.0-7.7); Basophil# 0.07 X10^3/uL; Basophil% 0.7 % (0-1); Eosinophil# 0.01 X10^3/uL; Eosinophils% 0.1 % (0-5); Hemoglobin 9.9 g/dL (12.0-15.0); Lymphocyte # 1.01 X10^3/ul (0.83-4.51); Lymphocyte % 9.5 % (19-41); Mean Corp Hgb Conc 31.9 g/dL (32-36); Mean Corpuscular Hgb 27.6 pg (27.0-32.0); Mean Corpuscular Volume 86.4 fL (81-99); Mean Platelet Vol. 11.4 fl (6.2-12.0); Monocyte# 1.25 X10^3/uL; Monocyte% 11.8 % (0-10); NRBC Flagged by Analyzer 0 % (0-5); Neutrophil # 8.19 X10^3/uL (2.7-7.7); Neutrophil % 77.4 % (47-70); Platelet Count 276 K/mm3 (150-450); RBC Distribution Width CV 15.5 % (11.6-14.6); RBC Distribution Width SD 49.1 fl (35.1-43.9); Red Blood Count 3.59 M/mm3 (4.2-5.4); White Blood Count 10.6 K/mm3 (4.4-11.0)
[2022-11-24] MEDS: Insulin Lispro 100 UNIT/ML INSULN.PEN SC ×6 (06:23→20:49)
[2022-11-24 06:51] LABS: Anion Gap 10 (5-15); BUN 26 mg/dL (7-18); BUN/Creat Ratio 26.5 RATIO (10-20); Calcium,Total 8.9 mg/dL (8.5-10.1); Chloride 106 mmol/L (98-107); Creatinine, Serum 0.98 mg/dL (0.55-1.02); EST Glomerular Filtration Rate 58 mL/min (>60); Est Glom Filt Rate - Afr Amer 70 mL/min (>60); Glucose 428 mg/dL (74-106); Potassium 4.9 mmol/L (3.5-5.1); Sodium Level 138 mmol/L (136-145)
--- NOTE | 2022-11-24 07:10 | PCM.PN.HOSP ---
Subjective Subjective Feeling somewhat generally weak and unwell today but still better than on presentation. Christine was removed Objective Data Objective Data Vital Signs: Vital Signs Temp Pulse Resp BP Pulse Ox O2 Del Method O2 Flow Rate 97.9 F 114 H 18 152/51 H 93 Nasal Cannula 2 11/24/22 02:45 11/24/22 02:45 11/24/22 02:45 11/24/22 02:45 11/24/22 06:57 11/24/22 06:57 11/24/22 06:57 Oxygen Flow Rate (L/min) 2 Oxygen Delivery Method Nasal Cannula Weight: 66.7 kg Body Mass Index (BMI) 25.2 Intake & Output: Intake and Output for Last 24 Hours 11/22/22 11/23/22 11/24/22 23:59 23:59 23:59 Intake Total 2545 / 2745 2755 / 2755 200 / 200 Output Total 1750 / 1750 350 / 350 Balance 2545 / 2245 1005 / 1005 -150 / -150 Lab / Micro Data Result Diagrams: 11/24/22 05:27 11/24/22 05:27 Labs: Laboratory Results - last 24 hr 11/23/22 05:34: Sodium 140, Potassium 4.0, Chloride 106, Carbon Dioxide 28.0, Anion Gap 6, BUN 17, Creatinine 0.79, Estim Creat Clear Calc 39.39, Est GFR (MDRD) Af Amer 90, Est GFR (MDRD) Non-Af 75, BUN/Creatinine Ratio 21.5 H, Glucose 233 H, Calcium 8.7, Total Bilirubin 0.30, AST 42 H, ALT 27, Alkaline Phosphatase 129 H, Total Protein 6.2 L, Albumin 2.3 L, Globulin 3.9, Albumin/Globulin Ratio 0.6 L 11/23/22 05:34: Hemoglobin A1c 7.9 H 11/23/22 07:27: POC Glucose 236 H 11/23/22 10:39: POC Glucose 120 H 11/23/22 15:45: POC Glucose 407 H 11/23/22 21:08: POC Glucose > 500 H* 11/23/22 21:22: Glucose 550 H* 11/24/22 05:27: WBC 10.6, RBC 3.59 L, Hgb 9.9 L, Hct 31.0 L, MCV 86.4, MCH 27.6, MCHC 31.9 L, RDW Std Deviation 49.1 H, RDW Coeff of Kristyn 15.5 H, Plt Count 276, MPV 11.4, Immature Gran % (Auto) 0.500, Neut % (Auto) 77.4 H, Lymph % (Auto) 9.5 L, [place] % (Auto) 11.8 H, Eos % (Auto) 0.1, Baso % (Auto) 0.7, Absolute Neuts (auto) 8.2 H, Absolute Lymphs (auto) 1.01, Nucleated RBC % 0 11/24/22 05:27: Sodium 138, Potassium 4.9, Chloride 106, Carbon Dioxide 22.0, Anion Gap 10, BUN 26 H, Creatinine 0.98, Estim Creat Clear Calc 40.20, Est GFR (MDRD) Af Amer 70, Est GFR (MDRD) Non-Af 58 L, BUN/Creatinine Ratio 26.5 H, Glucose 428 H, Calcium 8.9 Micro: Microbiology 11/22/22 15:15 Urine Catheter - King Urine Culture - Preliminary GNR lactose pewter caster 11/22/22 14:50 Blood Culture (Wb) - Anticubital Right Blood Culture - Preliminary GNR lactose pewter caster 11/22/22 15:06 Nasal Secretion SARS-CoV-2 & FLU Antigen (Rapid) - Final Rhythm Strip Rhythm Strip: Sinus Tach Rate: 120 Ectopy: None Physical Exam Narrative General: Alert, oriented, no apparent distress HEENT: Atraumatic, normocephalic Eyes: Anicteric, normal conjunctiva, extraocular movements grossly intact Neck: Supple Respiratory: Clear to auscultation bilaterally, normal respiratory effort Cardiovascular: Regular rate and rhythm GI: Soft, nontender, nondistended Extremities: No edema Musculoskeletal: Moving all extremities Neuro: No overt focal neurological deficits Skin: No rashes appreciated Psych: Cooperative Assessment & Plan Assessment/Plan (1) Sepsis: (2) Acute metabolic encephalopathy: (3) Acute UTI: (4) Pneumonia: PLAN: Plan 77-year-old with history of COPD, diabetes, hypothyroidism, bilateral PEs, hypertension who presented 11/22/2022 with confusion for 1 day. In the ED history obtained from the . In the ED she was noted to be tachycardic and confused and was given IV fluids as her lactic was 3.5. Was noted to have infiltrate on chest x-ray as well as UA concerning for UTI and she was given Rocephin and azithromycin. #Sepsis secondary to acute UTI qSOFA on admission was 2 due to tachypnea and mental status change She was continued on Rocephin and azithromycin Cultures ordered, preliminary cultures with both urine and blood culture growing gram-negative jose maria lactose pewter caster's Received fluids per protocol Significantly improved There was a query if she may have pneumonia but symptoms and x-ray not is convincing, will follow urinary antigens Will likely discontinue azithromycin if urinary antigens are negative 2/1: Urine antigens not back however urine and blood growing gram-negative rods so we will discontinue azithromycin. Was mildly tachycardic overnight but no hypotension continue Rocephin #Type 1 diabetes mellitus Continue glargine, sliding scale insulin was added 2/: Added back her daytime insulin and added Premeal due to significantly elevated glucose. No gap on BMP this morning #Acute metabolic encephalopathy Secondary to sepsis and underlying infection on top of her underlying dementia Treat underlying cause Significantly improved #History of bilateral pulmonary embolism Xarelto #Hypothyroidism Levothyroxine #Hypertension Continue amlodipine and lisinopril #COPD Does not appear to be on any underlying medications next and albuterol as needed #DVT ppx: On Xarelto Lizz Maravilla MD Time spent in the patient's overall evaluation,decision-making process, review of diagnostic data, adjustment of management, discussion with other providers, nursing nursing and ancillary staff involved in patient's care documentation, 30 minutes Charges/Coding Visit Charges Inpatient E&M: 96084 [facility] Hosp L2
[2022-11-24 07:16] LABS: Bedside Glucose 400 mg/dL (74-106)
[2022-11-24] MEDS: Rivaroxaban 20 MG Tablet PO (08:22)
[2022-11-24] MEDS: 0.9% Normal Saline 1,000 ML 100 ML IV (08:25)
[2022-11-24] MEDS: Tolterodine Tartrate 2 MG CAP.SA PO (10:04)
[2022-11-24] MEDS: Insulin Glargine-YFGN 100 UNIT/ML Pen SC (10:05)
[2022-11-24] MEDS: guaiFENesin 1,200 MG Tablet 1200 MG PO ×2 (10:08→20:50)
[2022-11-24] MEDS: amLODIPine 5 MG Tablet PO (10:09)
[2022-11-24] MEDS: Lisinopril 10 MG Tablet PO (10:10)
--- NOTE | 2022-11-24 10:10 | EKG12_ITS ---
Test Reason : RHYTHUM CHANGE Blood Pressure : / mmHG Vent. Rate : 090 BPM Atrial Rate : 090 BPM P-R Int : 136 ms QRS Dur : 082 ms QT Int : 338 ms P-R-T Axes : -16 088 062 degrees QTc Int : 413 ms Normal sinus rhythm Normal ECG When compared with ECG of 24-NOV-2022 21:09, MANUAL COMPARISON REQUIRED, DATA IS UNCONFIRMED Confirmed by DAMASO MCKEON, KAROLINA ([id number]), features editor JAZMÍN CERVANTES ([id number]) on 11/26/2022 9:04:13 AM Referred By: Confirmed By:TONYA PETIT MD
[2022-11-24 11:41] LABS: Bedside Glucose 422 mg/dL (74-106)
[2022-11-24] MEDS: Ondansetron 4 MG/2 ML Vial IV (11:48)
[2022-11-24 13:55] LABS: Anion Gap 10 (5-15); BUN 25 mg/dL (7-18); BUN/Creat Ratio 24.3 RATIO (10-20); Chloride 103 mmol/L (98-107); Creatinine, Serum 1.03 mg/dL (0.55-1.02); EST Glomerular Filtration Rate 55 mL/min (>60); Est Glom Filt Rate - Afr Amer 66 mL/min (>60); Estimated Creatinine Clearance 38.24 ml/min; Glucose 431 mg/dL (74-106); Potassium 4.6 mmol/L (3.5-5.1); Sodium Level 136 mmol/L (136-145)
[2022-11-24 13:56] LABS: Blood Gas Specimen Type VEN; O2 Delivery Device Cannula; VBG BASE EXCESS -6 mmol/L (-1.0-3.5); VBG Bicarbonate 20 mmol/L (22-26); VBG PO2 90 mmHg (25-40); VBG SO2 97 % (50-70); VBG TCO2 21 mmol/L (23-33); VBG pCO2 36.6 mmHg (41-51); VBG pH 7.35 (7.32-7.42)
[2022-11-24 13:59] LABS: Lactic Acid 0.9 mmol/L (0.4-1.9)
--- NOTE | 2022-11-24 15:10 | CT_ITS ---
INDICATION: tachypnea and tachycardia EXAMINATION: CT CHEST WITHOUT CONTRAST - CT Chest W/O Contrast Injection TECHNIQUE: Helically acquired images were obtained of the chest. A radiation dose optimization technique was used for this scan. IV Contrast dosage and agent: None. COMPARISON: None. FINDINGS: LUNGS, PLEURA AND LARGE AIRWAYS: Bilateral pleural effusions with basilar consolidation/atelectasis. There is a lingular focal consolidation/atelectasis No pneumothorax. THYROID: No thyroid lesions. HEART AND PERICARDIUM: Heart size is normal. No pericardial effusion. Coronary artery calcifications are noted. CORONARY ARTERIES: Coronary artery calcification VESSELS: Calcified aorta. MEDIASTINUM AND ROD: No mediastinal or hilar adenopathy. Esophagus is unremarkable. No hiatal hernia. UPPER ABDOMEN: Nonobstructive left renal calculi up to 2 mm. Left renal cyst. BONES: Moderate compression of T6 with mild compression of T7. CT/Chest without Contrast IMPRESSION: Bilateral pleural effusions with basilar consolidation/atelectasis. There is a lingular focal consolidation/atelectasis Left renal calculi and left renal cyst. Electronically Signed: Anders Quintanilla DO at 17:24 EST Reading Location ID and State: [facility] / [place] Tel [phone], Service support ,
--- NOTE | 2022-11-24 16:07 | ECHOD_ITS ---
Reason For Study: DYSPNEA/SOB, NEW ONSET AFIB. Procedure This was a 2D Doppler, Color Flow transthoracic echocardiogram. Exam performed portable in patient room. Left Ventricle Normal LV size. The estimated ejection fraction is 75 %. Unable to assess diastolic dysfunction. No regional wall motion abnormalities noted. Right Ventricle Normal RV size. Normal systolic function. Atria Normal left atrium. Normal right atrium. No doppler evidence for ASD. Mitral Valve There is moderate mitral annular calcification. Moderate diffuse mitral valve calcification. There is no mitral valve stenosis. No mitral valve insufficiency. Tricuspid Valve There is no tricuspid stenosis. Trivial tricuspid valve insufficiency. Pulmonary artery systolic pressure is 55-60 mmHg. Aortic Valve Trisinus/trileaflet aortic valve. There is no aortic stenosis. No aortic valve insufficiency. Pulmonic Valve There is no pulmonic valvular stenosis. No pulmonic valve insufficiency. Great Vessels Normal aortic root. Pericardium/Pleural No pericardial effusion. MMode/2D Measurements & Calculations LVIDd: 3.2 cm IVSd: 1.1 cm Ao root diam: 3.1 cm LVIDs: 2.1 cm LVPWd: 1.1 cm RVDd: 3.4 cm FS: 33.0 % LAV(MOD-bp): 57.8 ml LVAd ap4: 14.9 cm2 LVAd ap2: 17.0 cm2 LAV(MOD-bp) Indexed: 33.7 ml/m2 LVLd ap4: 5.5 cm LVLd ap2: 6.5 cm LAV(MOD-sp2): 60.1 ml EDV(MOD-sp4): 33.4 ml EDV(MOD-sp2): 36.1 ml LAV(MOD-sp4): 53.6 ml EDV(sp4-el): 34.0 ml EDV(sp2-el): 37.4 ml LVAs ap4: 7.2 cm2 LVAs ap2: 9.3 cm2 LVLs ap4: 5.1 cm LVLs ap2: 5.5 cm ESV(MOD-sp4): 9.2 ml ESV(MOD-sp2): 14.2 ml ESV(sp4-el): 8.6 ml ESV(sp2-el): 13.5 ml EF(MOD-sp4): 72.5 % EF(MOD-sp2): 60.6 % EF(sp4-el): 74.7 % SV(MOD-sp4): 24.2 ml SV(MOD-sp2): 21.9 ml SV(sp4-el): 25.4 ml LA dimension(2D): 3.3 cm LA A4 area: 18.5 cm2 RA A4 area: 11.6 cm2 Time Measurements MV dec time: 0.14 sec Doppler Measurements & Calculations MV E max jett: 136.9 cm/sec Lat Peak E' Jett: 9.7 cm/sec Med Peak E' Jett: 7.1 cm/sec MV A max jett: 164.5 cm/sec E/E' lat: 14.2 E/E' med: 19.2 MV E/A: 0.83 MV dec slope: 948.5 cm/sec2 Ao V2 max: 160.9 cm/sec LV V1 max: 125.6 cm/sec Ao max P.4 mmHg LV V1 max P.3 mmHg Ao V2 mean: 109.0 cm/sec LV V1 mean P.5 mmHg Ao mean P.2 mmHg LV V1 mean: 87.9 cm/sec Ao V2 VTI: 26.0 cm LV V1 VTI: 23.3 cm AV (velocity ratio): 0.90 TR max jett: 356.5 cm/sec TR max P.8 mmHg ECHO/Echo Complete Interpretation Summary The estimated ejection fraction is 75 %. Unable to assess diastolic dysfunction. Ordering Physician: Lizz Maravilla Referring Physician: Shena Jeffers Performed By: Maylin Potter, ZACHCS, RVT
[2022-11-24 17:35] LABS: Bedside Glucose 413 mg/dL (74-106)
[2022-11-24] MEDS: Insulin Glargine-YFGN 100 UNIT/ML Pen 13 UNIT SC (20:48)
[2022-11-24] MEDS: MELATONIN 10 MG TABLET PO (20:50)
[2022-11-24] MEDS: Atorvastatin Calcium 10 MG Tablet 5 MG PO (20:50)
--- NOTE | 2022-11-24 21:00 | EKG12_ITS ---
Test Reason : HIGH HR Blood Pressure : / mmHG Vent. Rate : 169 BPM Atrial Rate : 500 BPM P-R Int : 000 ms QRS Dur : 086 ms QT Int : 276 ms P-R-T Axes : 000 092 -25 degrees QTc Int : 462 ms Atrial fibrillation Marked ST abnormality, possible inferior subendocardial injury Abnormal ECG When compared with ECG of 24-NOV-2022 10:24, MANUAL COMPARISON REQUIRED, DATA IS UNCONFIRMED Confirmed by DAMASO MCKEON, KAROLINA ([id number]), features editor JAZMÍN CERVANTES ([id number]) on 11/26/2022 9:07:47 AM Referred By: KWAME Confirmed By:TONYA PETIT MD
--- NOTE | 2022-11-24 21:29 | PCM.PN.BLA ---
Progress Note Notified of patient with elevated heart rates 150-160s. EKG shows A. fib with RVR, previous EKG showed sinus tachycardia Patient already on Xarelto Will check TSH and magnesium Start on metoprolol 25 mg p.o. twice daily Transfer to PCU for closer monitoring
[2022-11-24 21:55] LABS: Thyroid Stim Hormone (TSH) 0.02 uIU/mL (0.358-3.74)
[2022-11-24] MEDS: Metoprolol Tartrate 25 MG Tablet PO (22:33)
--- NOTE | 2022-11-24 22:34 | NURSING ---
Patient transferred to Progressive Care Unit. Patient's person to notify, Dillon Anthony, notified of patient's transfer of care.
[2022-11-24 23:16] LABS: Bedside Glucose 303 mg/dL (74-106)
[2022-11-25] VITALS (20 sets, daily range): BP systolic 130–160; BP diastolic 50–66; PULSE 91–160; RESP 16–22; TEMP 36.3–37.1; O2SAT 89–97
--- NOTE | 2022-11-25 00:11 | EKG12_ITS ---
Test Reason : TACHY Blood Pressure : / mmHG Vent. Rate : 117 BPM Atrial Rate : 117 BPM P-R Int : 152 ms QRS Dur : 070 ms QT Int : 306 ms P-R-T Axes : 074 082 053 degrees QTc Int : 426 ms Sinus tachycardia Otherwise normal ECG When compared with ECG of 22-NOV-2022 15:05, MANUAL COMPARISON REQUIRED, DATA IS UNCONFIRMED Confirmed by DAMASO MCKEON, KAROLINA ([id number]), editorial project manager JAZMÍN CERVANTES ([id number]) on 11/26/2022 9:07:58 AM Referred By: KWAME Confirmed By:TONYA PETIT MD
[2022-11-25 05:14] LABS: Absolute Lymphocyte Count 1.17 X10^3/uL (0.83-4.51); Basophil# 0.05 X10^3/uL; Basophil% 0.5 % (0-1); Eosinophil# 0.28 X10^3/uL; Eosinophils% 2.9 % (0-5); Hematocrit 29.9 % (37-47); Lymphocyte # 1.17 X10^3/ul (0.83-4.51); Lymphocyte % 12.1 % (19-41); Mean Corp Hgb Conc 30.1 g/dL (32-36); Mean Corpuscular Hgb 26.3 pg (27.0-32.0); Mean Corpuscular Volume 87.4 fL (81-99); Mean Platelet Vol. 11.7 fl (6.2-12.0); Monocyte# 1.07 X10^3/uL; Monocyte% 11.1 % (0-10); NRBC Flagged by Analyzer 0 % (0-5); Neutrophil # 7.02 X10^3/uL (2.7-7.7); Neutrophil % 72.8 % (47-70); Platelet Count 283 K/mm3 (150-450); RBC Distribution Width CV 15.4 % (11.6-14.6); RBC Distribution Width SD 49.4 fl (35.1-43.9); Red Blood Count 3.42 M/mm3 (4.2-5.4); White Blood Count 9.7 K/mm3 (4.4-11.0)
[2022-11-25 06:00] LABS: Anion Gap 6 (5-15); BUN 19 mg/dL (7-18); BUN/Creat Ratio 23.8 RATIO (10-20); Calcium,Total 8.8 mg/dL (8.5-10.1); Chloride 106 mmol/L (98-107); EST Glomerular Filtration Rate 74 mL/min (>60); Est Glom Filt Rate - Afr Amer 89 mL/min (>60); Estimated Creatinine Clearance 49.24 ml/min; Glucose 277 mg/dL (74-106); Potassium 4.2 mmol/L (3.5-5.1); Sodium Level 138 mmol/L (136-145)
[2022-11-25] MEDS: Levothyroxine 150 MCG Tablet PO (06:37)
--- NOTE | 2022-11-25 08:12 | PN.HOSP_ITS ---
Subjective Subjective Is beginning to feel better today but still feels generally weak, no other complaints at this time Objective Data Objective Data Vital Signs: Vital Signs Temp Pulse Resp BP Pulse Ox O2 Del Method O2 Flow Rate 97.9 F 99 18 151/55 H 94 Nasal Cannula 2 11/25/22 06:35 11/25/22 06:35 11/25/22 06:35 11/25/22 06:35 11/25/22 06:35 11/25/22 06:35 11/25/22 06:35 Oxygen Flow Rate (L/min) 2 Oxygen Delivery Method Nasal Cannula Weight: 66.7 kg Body Mass Index (BMI) 25.2 Intake & Output: Intake and Output for Last 24 Hours 11/23/22 11/24/22 11/25/22 23:59 23:59 23:59 Intake Total 2755 / 2755 1841.67 / 1841.67 Output Total 1750 / 1750 350 / 350 Balance 1005 / 1005 1491.67 / 1491.67 Lab / Micro Data Result Diagrams: 11/25/22 04:30 11/25/22 04:30 Labs: Laboratory Results - last 24 hr 11/24/22 11:18: POC Glucose 422 H 11/24/22 13:05: Sodium 136, Potassium 4.6, Chloride 103, Carbon Dioxide 23.0, Anion Gap 10, BUN 25 H, Creatinine 1.03 H, Estim Creat Clear Calc 38.24, Est GFR (MDRD) Af Amer 66, Est GFR (MDRD) Non-Af 55 L, BUN/Creatinine Ratio 24.3 H, Glucose 431 H, Calcium 9.0 11/24/22 13:05: Lactic Acid 0.9 11/24/22 13:05: TSH 0.02 L 11/24/22 13:05: Magnesium 2.0 11/24/22 16:40: POC Glucose 413 H 11/24/22 20:46: POC Glucose 303 H 11/25/22 04:30: WBC 9.7, RBC 3.42 L, Hgb 9.0 L, Hct 29.9 L, MCV 87.4, MCH 26.3 L , MCHC 30.1 L D, RDW Std Deviation 49.4 H, RDW Coeff of Kristyn 15.4 H, Plt Count 283, MPV 11.7, Immature Gran % (Auto) 0.600, Neut % (Auto) 72.8 H, Lymph % (Auto) 12.1 L, [place] % (Auto) 11.1 H, Eos % (Auto) 2.9, Baso % (Auto) 0.5, Absolute Neuts (auto) 7.0, Absolute Lymphs (auto) 1.17, Nucleated RBC % 0 11/25/22 04:30: Sodium 138, Potassium 4.2, Chloride 106, Carbon Dioxide 26.0, Anion Gap 6, BUN 19 H, Creatinine 0.80, Estim Creat Clear Calc 49.24, Est GFR (MDRD) Af Amer 89, Est GFR (MDRD) Non-Af 74, BUN/Creatinine Ratio 23.8 H, Glucose 277 H, Calcium 8.8 Micro: Microbiology 11/22/22 14:50 Blood Culture (Wb) - Anticubital Right Blood Culture - Final Klebsiella pneumoniae sp pneum 11/22/22 15:15 Urine Catheter - King Legionella Antigen - Final 11/22/22 15:15 Urine Catheter - King Streptococcus pneumoniae Antigen (M - Final 11/22/22 15:15 Urine Catheter - King Urine Culture - Final Klebsiella pneumoniae sp pneum 11/22/22 15:30 Blood Culture (Wb) - Left Hand Blood Culture - Preliminary No growth in 48 hours. 11/22/22 15:06 Nasal Secretion SARS-CoV-2 & FLU Antigen (Rapid) - Final ABG Data ABG results: ABG 11/24/22 13:48 Specimen Type TRAMAINE VBG pH 7.35 VBG pO2 90 H VBG HCO3 20 L VBG Total CO2 21 L VBG O2 Sat (Calc) 97 H VBG Base Excess -6 L POC Mix VBG pCO2 Pt Tmp 36.6 L O2 Delivery Device Cannula Liter Flow 2.0 Radiography Diagnostic Testing: Radiology Impression Chest CT 11/24/22 15:10 IMPRESSION: Bilateral pleural effusions with basilar consolidation/atelectasis. There is a lingular focal consolidation/atelectasis Left renal calculi and left renal cyst. Electronically Signed: Anders Quintanilla DO at 17:24 EST Reading Location ID and State: [facility] / [place] Tel [phone], Service support , Rhythm Strip Rhythm Strip: Sinus Tach Rate: 120 Ectopy: None Physical Exam Narrative General: Alert, oriented, no apparent distress HEENT: Atraumatic, normocephalic Eyes: Anicteric, normal conjunctiva, extraocular movements grossly intact Neck: Supple Respiratory: Somewhat diminished at the bases, normal respiratory effort Cardiovascular: Regular rate and rhythm GI: Soft, nontender, nondistended Extremities: Left lower extremity with trace to 1+ edema compared to right Musculoskeletal: Moving all extremities Neuro: No overt focal neurological deficits Skin: No rashes appreciated Psych: Cooperative Assessment & Plan Assessment/Plan (1) Sepsis: (2) Acute metabolic encephalopathy: (3) Acute UTI: (4) Pneumonia: PLAN: Plan 77-year-old with history of COPD, diabetes, hypothyroidism, bilateral PEs, hypertension who presented 11/22/2022 with confusion for 1 day. In the ED history obtained from the . In the ED she was noted to be tachycardic and confused and was given IV fluids as her lactic was 3.5. Was noted to have infiltrate on chest x-ray as well as UA concerning for UTI and she was given Rocephin and azithromycin. #Sepsis secondary to acute UTI qSOFA on admission was 2 due to tachypnea and mental status change She was continued on Rocephin and azithromycin Cultures ordered, preliminary cultures with both urine and blood culture growing gram-negative jose maria lactose occupational therapy director's Received fluids per protocol Significantly improved There was a query if she may have pneumonia but symptoms and x-ray not is convincing, will follow urinary antigens Will likely discontinue azithromycin if urinary antigens are negative 2/: Urine antigens not back however urine and blood growing gram-negative rods so we will discontinue azithromycin. Was mildly tachycardic overnight but no hy potension continue Rocephin 2/2: Continue Rocephin, slowly improving. Blood and urine growing Klebsiella pneumonia sensitive to everything but ampicillin #New onset A-fib with RVR Responding to metoprolol Increase metoprolol dose Query if this could be due to her thyroid/Synthroid though she has multiple reasons that she could have A-fib Echo with an EF of 70% and diastolic function indeterminant We will give lower dose of Synthroid dose for tomorrow and try to contact her health screener Patient is already on Xarelto, continue #Hypothyroidism Levothyroxine 2/2: TSH 0.02. Free T4 on the upper limits of normal, given new onset A-fib concern that this could be due to somewhat hyperthyroid state. We will decrease dose for tomorrow and attempt to contact her health screener regarding dosing and if any changes warranted long-term #Type 1 diabetes mellitus Continue glargine, sliding scale insulin was added 2/: Added back her daytime insulin and added Premeal due to significantly eleva brook glucose. No gap on BMP this morning 2/2: Continue to adjust insulin. Has started to trend down #Acute metabolic encephalopathy Secondary to sepsis and underlying infection on top of her underlying dementia Treat underlying cause Significantly improved #History of bilateral pulmonary embolism Xarelto #Hypertension Continue amlodipine and lisinopril #COPD Does not appear to be on any underlying medications next and albuterol as needed #DVT ppx: On Xarelto Lizz Maravilla MD Time spent in the patient's overall evaluation,decision-making process, review of diagnostic data, adjustment of management, discussion with other providers, nursing nursing and ancillary staff involved in patient's care documentation, 30 minutes Charges/Coding Visit Charges Inpatient E&M: 64870 Subs Hosp L2
[2022-11-25] MEDS: Insulin Lispro 100 UNIT/ML INSULN.PEN SC ×7 (08:23→21:56)
[2022-11-25] MEDS: Tolterodine Tartrate 2 MG CAP.SA PO (08:24)
[2022-11-25] MEDS: Lisinopril 10 MG Tablet PO (08:25)
[2022-11-25] MEDS: amLODIPine 5 MG Tablet PO (08:25)
[2022-11-25] MEDS: Rivaroxaban 20 MG Tablet PO (08:25)
[2022-11-25] MEDS: guaiFENesin 1,200 MG Tablet 1200 MG PO ×2 (08:25→21:58)
[2022-11-25] MEDS: Metoprolol Tartrate 25 MG Tablet PO (08:43)
[2022-11-25 09:10] LABS: Bedside Glucose 327 mg/dL (74-106)
[2022-11-25] MEDS: Insulin Glargine-YFGN 100 UNIT/ML Pen 7 UNIT SC (10:02)
[2022-11-25] MEDS: 0.9% Saline Lock 10 ML Syringe IV ×2 (10:08→13:34)
[2022-11-25 11:41] LABS: Bedside Glucose 311 mg/dL (74-106)
[2022-11-25 11:49] LABS: T4 Free Direct 1.45 ng/dL (0.76-1.46)
--- NOTE | 2022-11-25 13:10 | EKG12_ITS ---
Test Reason : Blood Pressure : / mmHG Vent. Rate : 152 BPM Atrial Rate : 000 BPM P-R Int : 000 ms QRS Dur : 082 ms QT Int : 278 ms P-R-T Axes : 000 077 008 degrees QTc Int : 442 ms Atrial fibrillation with rapid ventricular response Nonspecific ST-T changes Abnormal ECG When compared with ECG of 25-NOV-2022 00:23, MANUAL COMPARISON REQUIRED, DATA IS UNCONFIRMED Confirmed by DAMASO MCKEON, KAROLINA ([id number]), video tape editor JAZMÍN CERVANTES ([id number]) on 11/29/2022 12:43:17 PM Referred By: GISSEL Confirmed By:TONYA PETIT MD
[2022-11-25] MEDS: Metoprolol Tartrate 5 MG/5 ML Vial IV (13:35)
[2022-11-25 16:40] LABS: Bedside Glucose 311 mg/dL (74-106)
[2022-11-25] MEDS: Insulin Glargine-YFGN 100 UNIT/ML Pen 13 UNIT SC (21:56)
[2022-11-25] MEDS: Atorvastatin Calcium 10 MG Tablet 5 MG PO (21:57)
[2022-11-25] MEDS: MELATONIN 10 MG TABLET PO (21:58)
[2022-11-25] MEDS: Metoprolol Tartrate 50 MG Tablet PO (22:00)
[2022-11-25 22:25] LABS: Bedside Glucose 277 mg/dL (74-106)
[2022-11-26] VITALS (9 sets, daily range): BP systolic 145–154; BP diastolic 55–59; PULSE 74–84; RESP 18; TEMP 36.4–36.5; O2SAT 93–97
[2022-11-26 05:58] LABS: Absolute Lymphocyte Count 1.63 X10^3/uL (0.83-4.51); Absolute Neutrophil Count 4.1 X10^3/uL (2.0-7.7); Basophil# 0.06 X10^3/uL; Basophil% 0.9 % (0-1); Eosinophil# 0.47 X10^3/uL; Eosinophils% 6.7 % (0-5); Hematocrit 30.7 % (37-47); Hemoglobin 9.5 g/dL (12.0-15.0); Lymphocyte # 1.63 X10^3/ul (0.83-4.51); Lymphocyte % 23.2 % (19-41); Mean Corp Hgb Conc 30.9 g/dL (32-36); Mean Corpuscular Hgb 26.9 pg (27.0-32.0); Mean Platelet Vol. 11.4 fl (6.2-12.0); Monocyte# 0.72 X10^3/uL; Monocyte% 10.2 % (0-10); NRBC Flagged by Analyzer 0 % (0-5); Neutrophil # 4.12 X10^3/uL (2.7-7.7); Neutrophil % 58.4 % (47-70); POSITIVE MORPHOLOGY YES; Platelet Count 336 K/mm3 (150-450); RBC Distribution Width CV 15.1 % (11.6-14.6); Red Blood Count 3.53 M/mm3 (4.2-5.4)
[2022-11-26] MEDS: Levothyroxine 100 MCG Tablet PO (05:58)
[2022-11-26 06:07] LABS: Differential Indicated SCAN CRITERIA MET
[2022-11-26 06:18] LABS: Atypical Lymphocyte 1+ %; Differential Comment SCANNED; Hypochromasia RARE
[2022-11-26 06:35] LABS: Anion Gap 6 (5-15); BUN 23 mg/dL (7-18); BUN/Creat Ratio 33.3 RATIO (10-20); Calcium,Total 8.9 mg/dL (8.5-10.1); Chloride 106 mmol/L (98-107); Creatinine, Serum 0.69 mg/dL (0.55-1.02); EST Glomerular Filtration Rate 87 mL/min (>60); Est Glom Filt Rate - Afr Amer 105 mL/min (>60); Estimated Creatinine Clearance 39.39 ml/min; Glucose 115 mg/dL (74-106); Potassium 3.8 mmol/L (3.5-5.1); Sodium Level 139 mmol/L (136-145)
[2022-11-26] MEDS: Insulin Lispro 100 UNIT/ML INSULN.PEN SC (08:05)
[2022-11-26] MEDS: Rivaroxaban 20 MG Tablet PO (08:07)
[2022-11-26] MEDS: Insulin Glargine-YFGN 100 UNIT/ML Pen 7 UNIT SC (08:08)
[2022-11-26] MEDS: Tolterodine Tartrate 2 MG CAP.SA PO (08:08)
[2022-11-26] MEDS: Lisinopril 10 MG Tablet PO (08:10)
[2022-11-26] MEDS: amLODIPine 5 MG Tablet PO (08:10)
[2022-11-26] MEDS: Metoprolol Tartrate 50 MG Tablet PO (08:10)
[2022-11-26] MEDS: guaiFENesin 1,200 MG Tablet 1200 MG PO (08:10)
[2022-11-26 08:35] LABS: Bedside Glucose 86 mg/dL (74-106)
--- NOTE | 2022-11-26 11:10 | CASEMGMT ---
Social Work Consult: [facility] placement Referral source: KRISTINE ALEMAN This renal social worker met with patient and patient spouse in room. Introduced self and renal social worker role. Patient agreeable to speak with this renal social worker and agreeable to this renal social worker speaking openly with patient spouse present. This renal social worker broached topic of m[facility] placement. Patient states I am not going to a mcc. Patient spouse states to have been in to see patient yesterday when patient was being evaluated by therapy and to feel comfortable with taking patient home. This renal social worker noting that patient is CGA to ambulate 30ft with a walker and asked if patient has a walker in the home. Patient states to not have a walker and is agreeable to a walker being order. This renal social worker inquired about home health care for patient in the home, patient is agreeable to home health and reports to have had [facility] in the past and would like [facility]. Patient spouse plans to transport patient home. Patient already has oxygen in the home as well. Patient and patient spouse continue to be comfortable with discharge to home and voice to understand the risk/concerns of patient returning to home at current functioning. This renal social worker notified Jeanine CARMONA CM of patient wishes. Jeanine to follow up with patient and patient spouse on setting up a walker and home health. This renal social worker notified Dr. Maravilla on above information. PLAN: Home with home health services. Kelsi EPPS, MANDEEP
--- NOTE | 2022-11-26 12:00 | CASEMGMT ---
Addendum entered by Jeanine Ruiz 11/26/22 14:34: KRISTINE ALEMAN back to patient's room to updated regarding HHC acceptance and planned start of care for tomorrow. Patient voiced understanding and had no further questions or concerns at this time. Original Note: KRISTINE ALEMAN updated by CHRISTAL that patient would like to discharge home with HHC. KRISTINE ALEMAN in to patient's room to speak with patient and boyfriend. Patient states she would like [facility] for HHC as she has had them in the past. Patient declined HHC list. Patient is also needing walker at discharge and prefers [facility]. KRISTINE ALEMAN received script for walker and sent to [facility] via [facility] and arranged for delivery to patient's room. KRISTINE ALEMAN called [facility] with referral for alf and PT/OT. Amber called back and stated they could see patient tomorrow. KRISTINE ALEMAN updated hospitalist.
[2022-11-26 12:35] LABS: Bedside Glucose 63 mg/dL (74-106)
--- NOTE | 2022-11-26 15:00 | DCINST_ITS ---
Discharge Instructions Diet Discharge Diet: - (Calorie controlled and consistent carbohydrate) Activity Discharge Activity: Use Walker Follow Up Care Test Results: Test results from this visit will be discussed in further detail at your follow- up appointment, if applicable. Discharge Plan Admission Admit Date/Time: 11/22/22 16:10 Primary Reason for Your Visit: Confusion Attending Provider: Lizz Maravilla Primary Care Provider: Shena Jeffers Consulting Providers: Dallas Paulson Instructions Patient Instructions: Urinary Tract Infections in Women, ED Fall Prevention Additional Instructions / Restrictions: DISCHARGE INSTRUCTIONS PLEASE READ *Please take this with you to your next doctors appointment* ?You will resume taking your 5 units of long-acting insulin and your sliding scale insulin as prescribed by Dr. Ceja -You will continue to take your levothyroxine 150 mcg however after discussing with Dr. Ceja in looking at your thyroid levels you will take your levothyroxine 150 mcg every day but Tuesday -During this admission you were noted to have an irregular heartbeat which may have been due to to your thyroid medication which is why you will now only take it 6 days a week. Because of this you have been started on a medication to control your heart rate, metoprolol tartrate 50 mg that you will take twice daily. Over time this may be able to be decreased or discontinued but please continue to take it unless instructed otherwise by your physician -For your infection you have been prescribed cefuroxime 500 mg that you will take twice daily for another 7 days, you will take your first dose tomorrow morning -Any newly prescribed medications have been sent to your preferred pharmacy on file -Please follow-up with your school janitor, Dr. Ceja as previously scheduled. If you have any questions or concerns prior to your scheduled appointment please call her office -Please call your primary care provider's office upon discharge to schedule a hospital follow up within 1 week. -For any concerning signs or symptoms please call 911 or proceed to the nearest emergency department Discharge Orders/Prescriptions Prescriptions: New metoprolol tartrate 50 mg Tablet 50 mg PO BID 30 Days Qty: 60 0RF cefuroxime axetil 500 mg tablet 500 mg PO Q12H 7 Days Qty: 14 0RF Continued amlodipine-benazepril 5-10 mg capsule 1 cap PO DAILY Xarelto 20 mg tablet 20 mg PO DAILY zoledronic nhoz-[id number]-[id number] 5 mg/100 mL piggyback 1 ea .Route ONCE Qty: 100 0RF Rx Instructions: infuse over 20 minutes oxybutynin chloride 10 mg tablet extended release 24hr 10 mg PO DAILY Label Comments: take 1 tablet by mouth once daily simvastatin 10 mg tablet 10 mg PO DAILY insulin lispro 100 unit/mL Insulin Pen SUBCUT ACHS Rx Instructions: 150-199 2 units 200-259 4 units 260-324 6 units 325-374 8 units 375-409 10 units 410-449 11 units insulin glargine 100 unit/mL Cartridge 5 unit SUBCUT DAILY levothyroxine 150 mcg tablet 150 mcg PO .6 days per week Qty: 30 5RF Referrals / Follow Up: Shena Jeffers DO [Primary Care Provider] - Within 1 Week Haresh Ceja MD [Med Staff - Courtesy Staff] - (Please fill with your school janitor as previously scheduled or if you have any questions or concerns prior to your scheduled appointment please call her office) Disposition Disposition (needs filled in before D/C Order can be placed): Home Health Service
--- NOTE | 2022-11-26 15:24 | PCM.DC.SUM ---
Providers Date of Admission: 11/22/22 Date of Discharge: 11/26/22 Primary Care Physician: Dr. Shena Jeffers DO Reason For Visit: SEPSIS, UTI, PNEUMONIA Diagnosis Discharge Diagnosis (1) Sepsis: Status: Acute Code(s): A41.9 - Sepsis, unspecified organism (2) Acute metabolic encephalopathy: Status: Acute Code(s): G93.41 - Metabolic encephalopathy (3) Acute UTI: Status: Acute Code(s): N39.0 - Urinary tract infection, site not specified (4) Pneumonia: Status: Acute Code(s): J18.9 - Pneumonia, unspecified organism Plan #Sepsis secondary to acute UTI #New onset A-fib with RVR #Hypothyroidism #Type 1 diabetes mellitus #Acute metabolic encephalopathy #History of bilateral pulmonary embolism #Hypertension #COPD Medications at Discharge Home Medications amlodipine 5 mg-benazepril 10 mg capsule 1 cap PO DAILY blood pressure 09/08/21 rivaroxaban 20 mg tablet (Xarelto) 20 mg PO DAILY blood thinner 04/23/22 oxybutynin chloride 10 mg tablet,extended release 24 hr 10 mg PO DAILY bladder 09/08/22 simvastatin 10 mg tablet 10 mg PO DAILY cholesterol 09/08/22 zoledronic acid 5 mg/100 mL in mannitol 5 %-water intravenous piggybck 1 ea .Route ONCE #100 mL 11/18/22 insulin glargine 100 unit/mL subcutaneous cartridge 5 unit subcut DAILY dm 11/22/22 insulin lispro 100 unit/mL subcutaneous pen unit subcut ACHS dm 11/22/22 cefuroxime axetil 500 mg tablet 500 mg PO Q12H 7 days #14 tabs 11/26/22 levothyroxine 150 mcg tablet 150 mcg PO .6 days per week thyroid #30 tabs 11/26/22 metoprolol tartrate 50 mg tablet 50 mg PO BID 30 days #60 tabs 11/26/22 Hospital Course Procedures - (CT, echocardiogram) Summary of Care Provided Minutes Spent on Discharge: 35 Hospital Course: 77-year-old with history of COPD on home O2, diabetes, hypothyroidism, bilateral PEs, hypertension who presented 11/22/2022 with confusion for 1 day. In the ED history obtained from the . In the ED she was noted to be tachycardic and confused and was given IV fluids as her lactic was 3.5. Was noted to have infiltrate on chest x-ray as well as UA concerning for UTI and she was given Rocephin and azithromycin. She responded well to fluids and antibiotics but had been somewhat tachypneic and tachycardic, got echo and CT, CT did show some bilateral pleural effusions and echo was not overtly remarkable. She did go in A-fib with RVR and TSH was found to be 0.02 and she is on Synthroid 150 mcg daily and free T4 was on the upper end of normal. She started on a beta-gypsy, Synthroid dose decreased, and transferred to PCU and that improved, she is already on Xarelto. She had echo which was unrevealing and given that thyroid was likely the cause of her A-fib in conjunction with illness do not feel that this needs further work-up at this time. Additionally given low suspicion for pneumonia based on clinical status, cultures, CT azithromycin was discontinued. Urine culture grew Klebsiella as did 1 of 2 blood cultures and sensitivities noted. She was feeling weak initial but did feel her strength is improving, worked with physical therapy. Discussed all options including penitentiary and home with home health and her and partner expressed strong desire for her to return home with home health and his help. Given her A-fib and her TSH as well as her wildly variable glucoses I contacted her grocery shopper and decision was made to take Synthroid 6 times weekly and skip Tuesday and to go back to her home regimen of 5 units of insulin glargine daily with sliding scale insulin. On day of discharge she reports feeling much better, breathing at baseline, no further complaints. Discharge instructions as followed: You will resume taking your 5 units of long-acting insulin and your sliding scale insulin as prescribed by Dr. Ceja -You will continue to take your levothyroxine 150 mcg however after discussing with Dr. Ceja in looking at your thyroid levels?you will take your levothyroxine 150 mcg every day but Tuesday -During this admission you were noted to have an irregular heartbeat which may have been due to to your thyroid medication which is why you will now only take it 6 days a week.? Because of this you have been started on a medication to control your heart rate,?metoprolol tartrate 50 mg that you will take twice daily.? Over time this may be able to be decreased or discontinued but please continue to take it unless instructed otherwise by your physician -For your infection you have been prescribed?cefuroxime 500 mg that you will take twice daily for another 7 days,?you will take your first dose tomorrow morning -Any newly prescribed medications have been sent to your preferred pharmacy on file -Please follow-up with your grocery shopper, Dr. Ceja as previously scheduled.? If you have any questions or concerns prior to your scheduled appointment please call her office -Please call your primary care provider's office upon discharge to schedule a hospital follow up within 1 week. -For any concerning signs or symptoms please call 911 or proceed to the nearest emergency department Physical Exam Narrative General: Alert, oriented, no apparent distress HEENT: Atraumatic, normocephalic Eyes: Anicteric, normal conjunctiva, extraocular movements grossly intact Neck: Supple Respiratory: Somewhat diminished at the bases, normal respiratory effort Cardiovascular: Regular rate and rhythm GI: Soft, nontender, nondistended Extremities: Left lower extremity with trace to 1+ edema compared to right Musculoskeletal: Moving all extremities Neuro: No overt focal neurological deficits Skin: No rashes appreciated Psych: Cooperative Weight / BMI Weight Weight: 66.7 kg Body Mass Index (BMI) 25.2 ABG / Lab / Microbiology Data Result Diagrams: 11/26/22 05:23 11/26/22 05:23 Laboratory: Laboratory Results - last 24 hr 11/25/22 16:13: POC Glucose 311 H 11/25/22 21:55: POC Glucose 277 H 11/26/22 05:23: WBC 7.0, RBC 3.53 L, Hgb 9.5 L, Hct 30.7 L, MCV 87.0, MCH 26.9 L, MCHC 30.9 L, RDW Std Deviation 48.0 H, RDW Coeff of Kristyn 15.1 H, Plt Count 336, MPV 11.4, Immature Gran % (Auto) 0.600, Neut % (Auto) 58.4, Lymph % (Auto) 23.2, Door % (Auto) 10.2 H, Eos % (Auto) 6.7 H, Baso % (Auto) 0.9, Absolute Neuts (auto) 4.1, Absolute Lymphs (auto) 1.63, Nucleated RBC % 0, Differential Comment SCANNED, Atypical Lymphocytes 1+, Hypochromasia RARE 11/26/22 05:23: Sodium 139, Potassium 3.8, Chloride 106, Carbon Dioxide 27.0, Anion Gap 6, BUN 23 H, Creatinine 0.69, Estim Creat Clear Calc 39.39, Est GFR (MDRD) Af Amer 105, Est GFR (MDRD) Non-Af 87, BUN/Creatinine Ratio 33.3 H, Glucose 115 H, Calcium 8.9 11/26/22 08:03: POC Glucose 86 11/26/22 12:01: POC Glucose 63 L Microbiology: Microbiology 11/22/22 14:50 Blood Culture (Wb) - Anticubital Right Blood Culture - Final Klebsiella pneumoniae sp pneum 11/22/22 15:15 Urine Catheter - King Legionella Antigen - Final 11/22/22 15:15 Urine Catheter - King Streptococcus pneumoniae Antigen (M - Final 11/22/22 15:15 Urine Catheter - King Urine Culture - Final Klebsiella pneumoniae sp pneum 11/22/22 15:30 Blood Culture (Wb) - Left Hand Blood Culture - Preliminary No growth in 48 hours. 11/22/22 15:06 Nasal Secretion SARS-CoV-2 & FLU Antigen (Rapid) - Final D/C Instructions Discharge Diet: - (Calorie controlled and consistent carbohydrate) Meaningful Use Info Meaningful Use Diagnoses (Choose all that apply): None applicable Discharge Plan Admission Admit Date/Time: 11/22/22 16:10 Primary Reason for Your Visit: Confusion Attending Provider: Lizz Maravilla Primary Care Provider: Shena Jeffers Consulting Providers: Dallas Paulson Instructions Patient Instructions: Urinary Tract Infections in Women, ED Fall Prevention Additional Instructions / Restrictions: DISCHARGE INSTRUCTIONS PLEASE READ *Please take this with you to your next doctors appointment* ?You will resume taking your 5 units of long-acting insulin and your sliding scale insulin as prescribed by Dr. Ceja -You will continue to take your levothyroxine 150 mcg however after discussing with Dr. Ceja in looking at your thyroid levels you will take your levothyroxine 150 mcg every day but Tuesday -During this admission you were noted to have an irregular heartbeat which may have been due to to your thyroid medication which is why you will now only take it 6 days a week. Because of this you have been started on a medication to control your heart rate, metoprolol tartrate 50 mg that you will take twice daily. Over time this may be able to be decreased or discontinued but please continue to take it unless instructed otherwise by your physician -For your infection you have been prescribed cefuroxime 500 mg that you will take twice daily for another 7 days, you will take your first dose tomorrow morning -Any newly prescribed medications have been sent to your preferred pharmacy on file -Please follow-up with your grocery shopper, Dr. Ceja as previously scheduled. If you have any questions or concerns prior to your scheduled appointment please call her office -Please call your primary care provider's office upon discharge to schedule a hospital follow up within 1 week. -For any concerning signs or symptoms please call 911 or proceed to the nearest emergency department Discharge Orders/Prescriptions Prescriptions: New metoprolol tartrate 50 mg Tablet 50 mg PO BID 30 Days Qty: 60 0RF cefuroxime axetil 500 mg tablet 500 mg PO Q12H 7 Days Qty: 14 0RF Continued amlodipine-benazepril 5-10 mg capsule 1 cap PO DAILY Xarelto 20 mg tablet 20 mg PO DAILY zoledronic bafd-livpiphw-ffhle 5 mg/100 mL piggyback 1 ea .Route ONCE Qty: 100 0RF Rx Instructions: infuse over 20 minutes oxybutynin chloride 10 mg tablet extended release 24hr 10 mg PO DAILY Label Comments: take 1 tablet by mouth once daily simvastatin 10 mg tablet 10 mg PO DAILY insulin lispro 100 unit/mL Insulin Pen SUBCUT ACHS Rx Instructions: 150-199 2 units 200-259 4 units 260-324 6 units 325-374 8 units 375-409 10 units 410-449 11 units insulin glargine 100 unit/mL Cartridge 5 unit SUBCUT DAILY levothyroxine 150 mcg tablet 150 mcg PO .6 days per week Qty: 30 5RF Referrals / Follow Up: Shena Jeffers DO [Primary Care Provider] - Within 1 Week (Please call the office on Tuesday to schedule your appt. ) Haresh Ceja MD [Med Staff - Courtesy Staff] - 03/02/23 10:15 am (Please fill with your grocery shopper as previously scheduled or if you have any questions or concerns prior to your scheduled appointment please call her office) Disposition Disposition (needs filled in before D/C Order can be placed): Home Health Service Charges/Coding Visit Charges Inpatient E&M: 03119 Disch Hosp >30min
[2022-11-26 15:31] LABS: Bedside Glucose 319 mg/dL (74-106)
== END 2022-11-26 16:51 | disposition home health service (06) | DRG 871 ==
LOC: ED 16:47 → MS3 16:58 → PCU 11-24 22:42
PROVIDERS: Internal Medicine; Emergency Provider Emergency Medicine; PCP Internal Medicine; Visit Provider Internal Medicine
DX: A41.59 Other Gram-negative sepsis (principal); G93.41 Metabolic encephalopathy; J15.0 Pneumonia due to Klebsiella pneumoniae; J90 Pleural effusion, not elsewhere classified; J44.0 Chronic obstructive pulmonary disease with (acute) lower respiratory infection; N39.0 Urinary tract infection, site not specified; F03.90 Unspecified dementia, unspecified severity, without behavioral disturbance, psychotic disturbance, mood disturbance, and anxiety; Z99.81 Dependence on supplemental oxygen; I48.91 Unspecified atrial fibrillation; Z79.4 Long term (current) use of insulin; E10.9 Type 1 diabetes mellitus without complications; E78.5 Hyperlipidemia, unspecified; E06.3 Autoimmune thyroiditis; I10 Essential (primary) hypertension; B96.1 Klebsiella pneumoniae [K. pneumoniae] as the cause of diseases classified elsewhere; M81.0 Age-related osteoporosis without current pathological fracture; Z28.310 Unvaccinated for COVID-19; Z28.9 Immunization not carried out for unspecified reason; Z79.01 Long term (current) use of anticoagulants; Z79.899 Other long term (current) drug therapy; Z86.711 Personal history of pulmonary embolism; Z86.718 Personal history of other venous thrombosis and embolism; Z87.891 Personal history of nicotine dependence
CPT/HCPCS: 36415; 51702; 71045; 71250; 80048; 80053; 81001; 82803; 82947; 82962; 83036; 83605; 83735; 84439; 84443; 84484; 85025; 85610; 85730; 87040; 87077; 87086; 87088; 87186; 87428; 87449; 93005; 93306; 94668; 94762; 97110; 97162; 97166; 97530; 97535; 99252; 99285; J7030; J7040; A4216; G0463; J0696; J2405

== ENCOUNTER → 2023-03-02 | Outpatient (CLI) | payer MEDICARE, OTHER, SELFPAY ==
[2023-03-02 12:50] LABS: Vitamin D,25 Hydroxy 86.2 ng/mL
[2023-03-02 13:04] LABS: Hemoglobin A1c 7.7 % (3.8-5.6)
[2023-03-02 13:06] LABS: ALB/GLOB Ratio 0.8 RATIO (0.9-2.4); AST(SGOT) 16 U/L (15-37); Alanine Aminotransfer ALT/SGPT 21 U/L (13-56); Albumin, Serum 3.1 g/dL (3.2-5.0); Alkaline Phosphatase 102 U/L (45-117); Anion Gap 7 (5-15); BUN 32 mg/dL (7-18); BUN/Creat Ratio 28.1 RATIO (10-20); Calcium,Total 9.1 mg/dL (8.5-10.1); Chloride 106 mmol/L (98-107); Creatinine, Serum 1.14 mg/dL (0.55-1.02); EST Glomerular Filtration Rate 49 mL/min (>60); Est Glom Filt Rate - Afr Amer 59 mL/min (>60); Globulin 4.1 g/dL (2.2-4.2); Glucose 90 mg/dL (74-106); Potassium 4.3 mmol/L (3.5-5.1); Protein, Total 7.2 g/dL (6.4-8.2); Sodium Level 139 mmol/L (136-145); T4 Free Direct 1.54 ng/dL (0.76-1.46); Thyroid Stim Hormone (TSH) 0.05 uIU/mL (0.358-3.74)
== END | disposition home or self-care (01) ==
LOC: LAB 11:22
PROVIDERS: PCP Internal Medicine; Referring Provider Nurse Practitioner Family; Visit Provider Nurse Practitioner Family
DX: E10.9 Type 1 diabetes mellitus without complications (principal); M81.0 Age-related osteoporosis without current pathological fracture; E03.8 Other specified hypothyroidism; E06.3 Autoimmune thyroiditis
CPT/HCPCS: 36415; 80053; 82306; 83036; 84439; 84443

== ENCOUNTER 2023-03-28 13:48 | Outpatient (CLI) | payer MEDICARE, OTHER, SELFPAY ==
[2023-03-28 14:05] VITALS: BP 144/60; PULSE 79; RESP 16; TEMP 35.9; O2SAT 95; BMI 24.0
[2023-03-28] MEDS: 0.9% NaCl Peripheral Flush Adult/Peds IV (14:13)
[2023-03-28] MEDS: Zoledronic Acid 5 MG 100 ML 300 MG IV (14:13)
[2023-03-28 14:38] VITALS: BP 139/59; PULSE 78; RESP 16; TEMP 35.9; O2SAT 96
== END 2023-03-28 13:49 | disposition home or self-care (01) ==
LOC: MEDOUTP 13:49
PROVIDERS: PCP Internal Medicine; Referring Provider Internal Medicine Endocrinology, Diabetes & Metabolism; Visit Provider Internal Medicine Endocrinology, Diabetes & Metabolism
DX: M85.80 Other specified disorders of bone density and structure, unspecified site (principal)
CPT/HCPCS: 96365; A4216; J3489

== ENCOUNTER → 2023-04-07 | Outpatient (CLI) | payer MEDICARE, OTHER, SELFPAY ==
--- NOTE | 2023-04-07 09:16 | BI_ITS ---
MAMMOGRAPHY - BILATERAL SCREENING REASON FOR EXAM: Female, 77 years old. Routine annual screening examination. PERTINENT HISTORY: Non-contributory. Bilateral breast implants. TECHNIQUE: Digital bilateral breast yordan (3D mammographic acquisition) in the CC and MLO projections. 2-D mediolateral oblique (MLO) and craniocaudad (CC) views of both breasts were obtained. CAD: Full Field Digital Mammography with Computer Added Detection was performed. COMPARISON: Comparison is made with prior outside examination if every 2019. FINDINGS: Breast Composition: There are scattered areas of fibroglandular density. There are no dominant masses or suspicious calcifications. Bilateral breast implants are seen. Dense calcifications are seen along the anterior aspects of both breast implants. No other significant abnormalities are identified. There has been no significant change since the prior study. BI/SCRN MAMM (CAD)W/YORDAN BILAT IMPRESSION: Stable bilateral screening mammogram. Dense calcifications along the anterior aspects of both breast implants. Yearly follow-up mammogram recommended. (A) ASSESSMENT CATEGORY: BIRADS Category 2: Benign. A letter regarding these results will be sent to the patient by the facility within 30 days. Approximately 10% of breast cancers are not detected by mammography. A normal mammogram should not delay biopsy of a clinically suspicious abnormality. [id number] Electronically Signed: Ayden Sifuentes MD at 14:15 EDT ,
== END | disposition home or self-care (01) ==
PROVIDERS: PCP Internal Medicine; Referring Provider Internal Medicine; Visit Provider Internal Medicine
DX: Z12.31 Encounter for screening mammogram for malignant neoplasm of breast (principal)
CPT/HCPCS: 77063; 77067

== ENCOUNTER 2023-06-29 18:50 | Inpatient (IN) | payer MEDICARE, OTHER, SELFPAY ==
[2023-06-29 18:58] VITALS: BP 137/101; PULSE 115; RESP 19; TEMP 37.4; O2SAT 90
[2023-06-29 19:01] VITALS: BMI 25.2
[2023-06-29 19:46] VITALS: BP 153/64; PULSE 100; RESP 19; O2SAT 95
--- NOTE | 2023-06-29 19:53 | EX.ED.DYSGE1 ---
HPI History of Present Illness Chief Complaint: Weakness Informant: patient and spouse/S.O. Narrative Narrative: This with generalized weakness and fevers. Patient and her states she has not felt well for 3 maybe 4 days. She has been sleeping more. She has had a lot less energy. She has had decreased appetite. states that he barely got her out of a restaurant last night. He had trouble getting her in the car because she was so weak generally. He was able to get her home. She is was evidently very warm and had rigors at dinner. But her temperature was not checked then. She denies any specific symptoms. However, she was seen in her private physician's office today. A urinalysis was evidently positive for UTI and she was given Macrobid. She has taken 1 dose. She seems to be just weaker tonight. The could not get her off the toilet. He could barely get her from dinner table over to the bathroom. He had to put her on a wheelchair and then get her onto the toilet but just was not able to get her off because she was so weak. This was not lateralizing weakness it was generalized weakness. 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 Memory loss On home oxygen therapy Osteoporosis Pulmonary embolism, bilateral Smoker Home Medications amlodipine 5 mg-benazepril 10 mg capsule 1 cap PO DAILY blood pressure 09/08/21 [History Last Taken 09/07/22] rivaroxaban 20 mg tablet (Xarelto) 20 mg PO DAILY blood thinner 04/23/22 [History Last Taken 09/08/22] oxybutynin chloride 10 mg tablet,extended release 24 hr 10 mg PO DAILY bladder 09/08/22 [History Last Taken 09/07/22] simvastatin 10 mg tablet 10 mg PO DAILY cholesterol 09/08/22 [History Last Taken 09/07/22] levothyroxine 100 mcg tablet 100 mcg PO DAILY #30 tabs 03/02/23 [Rx Last Taken Unknown] cholecalciferol (vitamin D3) 50 mcg (2,000 unit) tablet (D3 DOTS) 125 mcg PO DAILY 06/29/23 [History Last Taken Unknown] magnesium 200 mg tablet 400 mg PO DAILY 06/29/23 [History Last Taken Unknown] nitrofurantoin monohydrate/macrocrystals 100 mg capsule 100 mg PO Q12H 06/29/23 [History Last Taken Unknown] Allergy/AdvReac Type Severity Reaction Status Date / Time ciprofloxacin [From Cipro] Allergy Intermediate hives Verified 06/29/23 18:55 Sulfa (Sulfonamide Allergy Intermediate hives Verified 06/29/23 18:55 Antibiotics) Family History Father Diabetes Respiratory disease Surgical History S/P insertion of insulin pump Social History household members: significant other and none number of children: 2 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 Smoking Status: Former smoker alcohol intake: current alcohol intake frequency: a few times a month substance use type: does not use ROS ROS ED Constitutional Constitutional ED: Reports chills, fever(s) and subjective Eyes Eyes: Denies blurry vision ENT ENT ED: Denies rhinorrhea or sore throat Cardiovascular Cardiovascular: Denies chest pain, palpitations or racing heartbeat Respiratory/Chest Respiratory/Chest: Denies cough or dyspnea Gastrointestinal Gastrointestinal: Denies abdominal pain, diarrhea, nausea or vomiting Genitourinary Genitourinary ED: Denies dysuria Musculoskeletal Musculoskeletal: Denies myalgias Integumentary Denies rash Neurologic Neurologic: Denies headache(s) or paresthesias Endocrine Endocrinology: Denies polydipsia or polyuria Hematologic/Lymphatic Hematologic/Lymphatic: Reports easy bleeding and easy bruising; Denies lymphadenopathy Allergic/Immunologic Allergic/Immunologic ED: Denies urticaria EXAM Physical Exam Narrative Exam Narrative: Patient is awake. She is alert. She is not the best informant. She evidently is a little bit more confused than would be her baseline. She is mostly tired. HEENT shows minimally dry mucous membranes. No sinus tenderness. Neck is supple Heart is regular with a rate of about 105 showing mild tachycardia. But it appears to be a sinus rhythm on the monitor without ectopy. Lungs are actually clear on exam. She may have some history of COPD but I do not hear wheezing now. Her oxygen level are normal at 95% on her 2 L showing no hypoxia at that level. Abdomen is soft it is not tender. I do not get any CVA or suprapubic area tenderness. Extremities show no rash or swelling. Skin shows no rash. It may be slightly warm. Const Vital Signs: 06/29/23 18:58 06/29/23 19:01 06/29/23 19:46 Temperature 99.3 F H Temperature Source Oral Pulse Rate 115 H 100 Respiratory Rate 19 H 19 H Respiratory Effort Normal Non-Labored Respiratory Pattern Normal Blood Pressure 137/101 H 153/64 H Blood Pressure Mean 113 93 Pulse Ox 90 95 Oxygen Delivery Method Room Air Nasal Cannula Oxygen Flow Rate (L/min) 2 MDM MDM MDM Narrative Medical decision making narrative: Patient CBC shows mild elevation of her white count above her baseline at 11.2. Mild anemia. Platelets are relatively normal. Patient's electrolytes showed just a slight rise of her creatinine to 1.29. But she is given IV fluids here. Sodium was 133. Her glucose was high at 312. But then I talked with her and her . Her just not long ago given her 4 units of insulin. He watches her blood sugar on a Lymbix deepika. We checked it in the room and she is now coming down to 241. His level did show about 315 also. Therefore she was not acutely treated for this hyperglycemia here as she is already received treatment. Liver for test showed normal acute abnormality. Urine was positive nitrites positive leukocyte Estrace 5-10 white cells with rare bacteria. Has had prior UTIs without symptoms. Her last UTI showed Klebsiella. I have initiated Rocephin. Patient is still weak. She is not safe to get up and walk. Normally she will walk by herself or just with her . She does not use a walker or cane. This is a significant reduction in her strength and function. Her has been trying to carry her from point a to point B but he is just too weak to do this also. They do not feel she is safe to go home which I understand. With her age, fever this I think she needs to come in. She is not coughing. Although her urine does show some signs of urine infection is not the most markedly abnormal 1. She already did have a dose biotics prior to arrival though. I will also send a COVID off just to make sure. Lab Data Attestation: I reviewed the patient's lab results. Labs: Laboratory Results - last 24 hr 06/29/23 06/29/23 19:30 20:25 WBC 11.2 H RBC 4.40 Hgb 11.3 L Hct 36.7 L MCV 83.4 MCH 25.7 L MCHC 30.8 L RDW Std Deviation 47.3 H RDW Coeff of Kristyn 15.5 H Plt Count 357 MPV 11.4 Immature Gran % (Auto) 0.400 Neut % (Auto) 79.6 H Lymph % (Auto) 9.7 L Dixon % (Auto) 9.5 Eos % (Auto) 0.1 Baso % (Auto) 0.7 Absolute Neuts (auto) 8.9 H Absolute Lymphs (auto) 1.08 Nucleated RBC % 0 Sodium 133 L Potassium 4.2 Chloride 99 Carbon Dioxide 26.0 Anion Gap 8 BUN 25 H Creatinine 1.29 H Est GFR (MDRD) Af Amer 51 L Est GFR (MDRD) Non-Af 42 L BUN/Creatinine Ratio 19.4 Glucose 312 H Lactic Acid 1.1 Calcium 8.9 Magnesium 2.4 Total Bilirubin 0.50 AST 10 L ALT 16 Alkaline Phosphatase 107 Total Protein 7.6 Albumin 3.1 L Globulin 4.5 H Albumin/Globulin Ratio 0.7 L Urine Color Yellow Urine Clarity Clear Urine pH 6.0 Ur Specific [place] 1.010 Urine Protein 30 H Urine Glucose (UA) 1000 H Urine Ketones 50 H Urine Occult Blood 25 H Urine Nitrite Positive H Urine Bilirubin Negative Urine Urobilinogen Normal Ur Leukocyte Esterase 25 H Urine RBC 0-5 SEEN Urine WBC 5-10 SEEN Ur Squamous Epith Cells 0 SEEN Urine Bacteria RARE Urine Mucus 0 SEEN Radiography Diagnostic Testing: Clinical Impression(s) from Imaging Studies Chest X-Ray 06/29/23 20:10 IMPRESSION: 1. There is overall improved appearance compared to prior comparison exam but still with increased attenuation and reticulations lung bases suboptimally evaluated due to overlying calcified breast implants. Consider lateral views for increased sensitivity and specificity. Electronically Signed: Bernardo Cavazos DO at 20:32 EDT , Management Discussion w/another healthcare provider: Hospitalist Discharge Plan Dx/Rx/DC Orders Clinical Impression: Creatinine elevation, Generalized weakness, Acute UTI, Inability to walk, Dehydration Disposition Disposition: Acute Care Hospital [facility]
[2023-06-29 20:06] LABS: Absolute Lymphocyte Count 1.08 X10^3/uL (0.83-4.51); Absolute Neutrophil Count 8.9 X10^3/uL (2.0-7.7); Basophil# 0.08 X10^3/uL; Basophil% 0.7 % (0-1); Eosinophil# 0.01 X10^3/uL; Eosinophils% 0.1 % (0-5); Hematocrit 36.7 % (37-47); Hemoglobin 11.3 g/dL (12.0-15.0); Lymphocyte # 1.08 X10^3/ul (0.83-4.51); Lymphocyte % 9.7 % (19-41); Mean Corp Hgb Conc 30.8 g/dL (32-36); Mean Corpuscular Hgb 25.7 pg (27.0-32.0); Mean Corpuscular Volume 83.4 fL (81-99); Mean Platelet Vol. 11.4 fl (6.2-12.0); Monocyte# 1.06 X10^3/uL; Monocyte% 9.5 % (0-10); NRBC Flagged by Analyzer 0 % (0-5); Neutrophil # 8.89 X10^3/uL (2.7-7.7); Neutrophil % 79.6 % (47-70); Platelet Count 357 K/mm3 (150-450); RBC Distribution Width CV 15.5 % (11.6-14.6); RBC Distribution Width SD 47.3 fl (35.1-43.9); White Blood Count 11.2 K/mm3 (4.4-11.0)
--- NOTE | 2023-06-29 20:10 | RAD_ITS ---
INDICATION: fever, ?pneumonia EXAMINATION/TECHNIQUE: X-RAY - XR Chest 1 View COMPARISON: December 07, 2022 chest x-ray FINDINGS: LINES/DEVICES: PA and lateral views of the chest December 07, 2022. LUNGS: Symmetric normal lung volumes. Subtle increased attenuation left greater than right lung bases with mild reticulations, improved compared to prior exam December 07, 2022. No nodule or mass. No pleural effusion or pneumothorax. MEDIASTINUM AND CARDIOVASCULAR STRUCTURES: Normal size and contour of the cardiomediastinal silhouette. No evidence of pulmonary vascular congestion. BONES AND SOFT TISSUES: Which compression fracture midthoracic spine seen on prior comparison exam not visible on frontal view multilevel degenerative endplate changes are noted. No visible fracture. Calcified breast implants complicating interpretation of the lung bases. RAD/Chest 1 View (Portable) IMPRESSION: 1. There is overall improved appearance compared to prior comparison exam but still with increased attenuation and reticulations lung bases suboptimally evaluated due to overlying calcified breast implants. Consider lateral views for increased sensitivity and specificity. Electronically Signed: Bernardo Cavazos DO at 20:32 EDT ,
[2023-06-29] MEDS: 0.9% Normal Saline 1,000 ML 1000 ML IV (20:15)
[2023-06-29] MEDS: Acetaminophen 500 MG Tablet 1000 MG PO (20:15)
[2023-06-29 20:21] LABS: ALB/GLOB Ratio 0.7 RATIO (0.9-2.4); AST(SGOT) 10 U/L (15-37); Alanine Aminotransfer ALT/SGPT 16 U/L (13-56); Albumin, Serum 3.1 g/dL (3.2-5.0); Alkaline Phosphatase 107 U/L (45-117); Anion Gap 8 (5-15); BUN 25 mg/dL (7-18); BUN/Creat Ratio 19.4 RATIO (10-20); Calcium,Total 8.9 mg/dL (8.5-10.1); Chloride 99 mmol/L (98-107); Creatinine, Serum 1.29 mg/dL (0.55-1.02); EST Glomerular Filtration Rate 42 mL/min (>60); Est Glom Filt Rate - Afr Amer 51 mL/min (>60); Globulin 4.5 g/dL (2.2-4.2); Glucose 312 mg/dL (74-106); Magnesium 2.4 mg/dL (1.6-2.6); Potassium 4.2 mmol/L (3.5-5.1); Protein, Total 7.6 g/dL (6.4-8.2); Sodium Level 133 mmol/L (136-145)
[2023-06-29 20:30] LABS: Lactic Acid 1.1 mmol/L (0.4-1.9)
[2023-06-29 20:41] LABS: Mucous, Urine 0 SEEN /hpf (<or=2+); Squamous Epithelial Cells - UA 0 SEEN /hpf (5-10)
[2023-06-29 20:50] LABS: Color, Urine Yellow (Yellow); Glucose, Dipstick 1000 mg/dl (Normal); Ketone-Dipstick 50 mg/dl (Negative); Leukocyte Esterase-Dipstick 25 /ul (Negative); Nitrite-Dipstick Positive (Negative); Occult Blood-Urine 25 /ul (Negative); Protein-Dipstick 30 mg/dl (Negative); Urine Bilirubin Dipstick Negative (Negative); Urine Clarity Clear (Clear); Urine Urobilinogen Normal (Normal)
[2023-06-29 20:59] LABS: Bacteria RARE /hpf (None Seen); Red Blood Cells-Urine 0-5 SEEN /hpf (0-5); White Blood Cells 5-10 SEEN /hpf (0-5)
[2023-06-29 21:00] VITALS: PULSE 98; RESP 18; O2SAT 97
[2023-06-29 21:50] VITALS: BP 150/58; PULSE 95; RESP 18; TEMP 37.2; O2SAT 95
--- NOTE | 2023-06-29 21:51 | PCM.HP.STD ---
HPI - General General Date of Admission: 06/29/23 Date of Service: 06/29/23 Chief Complaint: Debility, weakness, recent outpatient UTI diagnosis, worsening. HPI Narrative The patient is a 77 y/o F w/ PMHx: Chronic COPD w/ chronic hypoxic respiratory failure (2L NC), HTN, HLD, Hypothyroidism with history of Pepe's thyroiditis, Hx BL PE on xarelto, Former Tobacco use, IDDM with insulin pump in place, PAF, CKD II versus III unclear subtype, Chronic memory impairment who presents to the [facility] ED on 06/29/23 with history of general malaise and fatigue, sleeping more over the last 3 to 4 days with decreased appetite and onset of subjective fevers as well as chills with rigors at dinner with private physician evaluation on day of presentation with urinalysis at that time concerning for UTI started on Macrobid with only 1 dose administered but given her debility prompted eventual ED evaluation. Patient per her good friend had barely been able to even get up from the table and when she was in the restroom she could not even get off the toilet requiring wheelchair usage because of the severity of the weakness. She denies any marked discomfort, dysuria, hesitancy or urgency but this is similar to her past with UTIs she notes. Work-up in the ED included T99.3, heart rate 115 initially with most recent repeat 100, BP initially 137/101 with most recent repeat 153/64, respiratory rate 19, initially 90% on room air eventually desaturating requiring transition to 2 L nasal cannula now 95%, CBC with WBC 11.2, hemoglobin 11.3, MCV 83.4, platelet 357 with left shift, CMP with sodium 133, BUN/creatinine 25/1.29, anion gap of note 8, glucose 312, lactic acid 1.1, hepatic profile not marked appearing, urinalysis with specific remedy 1.010, protein 30, glucose 1000, ketone 50, occult blood 25, positive nitrite, leukocyte Estrace 25 with urine WBCs 5-10 with no urine bacteria, urine culture pending per ED, blood culture x2 pending per ED, chest x-ray with improved appearance when compared to previous exam however still increased attenuation and reticulations at the lung bases suboptimally evaluated secondary to overlying calcified breast implants with recommendation for lateral views as well. Patient previous urine cultures with most recently noted 11/22/2022 Klebsiella with near bryant sensitivity except resistance to ampicillin which at that time she also had reported on her blood culture as well. COVID PCR pending upon requested evaluation to be cautious. In the ED patient ministered 1 L normal saline, Tylenol 1000 mg p.o. x1, IV Rocephin 1 g x 1. 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 Memory loss On home oxygen therapy Osteoporosis Pulmonary embolism, bilateral Smoker Home Medications amlodipine 5 mg-benazepril 10 mg capsule 1 cap PO DAILY blood pressure 09/08/21 [History Last Taken 09/07/22] rivaroxaban 20 mg tablet (Xarelto) 20 mg PO DAILY blood thinner 04/23/22 [History Last Taken 09/08/22] oxybutynin chloride 10 mg tablet,extended release 24 hr 10 mg PO DAILY bladder 09/08/22 [History Last Taken 09/07/22] simvastatin 10 mg tablet 10 mg PO DAILY cholesterol 09/08/22 [History Last Taken 09/07/22] levothyroxine 100 mcg tablet 100 mcg PO DAILY #30 tabs 03/02/23 [Rx Last Taken Unknown] cholecalciferol (vitamin D3) 50 mcg (2,000 unit) tablet (D3 DOTS) 125 mcg PO DAILY 06/29/23 [History Last Taken Unknown] magnesium 200 mg tablet 400 mg PO DAILY 06/29/23 [History Last Taken Unknown] nitrofurantoin monohydrate/macrocrystals 100 mg capsule 100 mg PO Q12H 06/29/23 [History Last Taken Unknown] Allergy/AdvReac Type Severity Reaction Status Date / Time ciprofloxacin [From Cipro] Allergy Intermediate hives Verified 06/29/23 18:55 Sulfa (Sulfonamide Allergy Intermediate hives Verified 06/29/23 18:55 Antibiotics) Family History (Updated 06/29/23 @ 22:[address] Roxanne Saxena MD) Father Diabetes Respiratory disease Mother No problems noted. Surgical History (Updated 06/29/23 @ 22:[address] Roxanne Saxena MD) S/P appendectomy S/P cholecystectomy S/P hysterectomy S/P insertion of insulin pump Social History (Updated 06/29/23 @ 22:[address] 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 alcohol intake: current alcohol intake frequency: a few times a month substance use type: does not use ROS ROS Narrative Admission Review of Systems: CONSTITUTIONAL: No weight loss, + fever, chills, weakness or fatigue. HEENT: Eyes: No visual loss, blurred vision, double vision or yellow sclerae. Ears, Nose, Throat: No hearing loss, sneezing, congestion, runny nose or sore throat. SKIN: No rash or itching, lesions, wounds. CARDIOVASCULAR: No chest pain, chest pressure or chest discomfort, palpitations, edema, orthopnea, syncopal events. RESPIRATORY: No shortness of breath, cough or sputum, wheezing, hemoptysis. GASTROINTESTINAL: + anorexia. No nausea, vomiting or diarrhea, abdominal pain, melena, BRBPR. GENITOURINARY: Recent PCP Dx UTI but denies dysuria, frequency, urgency or retention. NEUROLOGICAL: + Severe diffuse weakness, increased lethargy. No headache, dizziness, syncope, paralysis, ataxia, numbness or tingling in the extremities, focal weakness, change in bowel or bladder control, seizure. MUSCULOSKELETAL: + muscle, back pain, joint pain or stiffness. HEMATOLOGIC: No anemia, bleeding or bruising. LYMPHATICS: No enlarged nodes. No history of splenectomy. PSYCHIATRIC: No history of depression or anxiety. ENDOCRINOLOGIC: No reports of sweating, cold or heat intolerance. No polyuria or polydipsia. ALLERGIES: + history of hives. Vital Signs Vital Signs Vital Signs: 06/29/23 18:58 06/29/23 19:01 06/29/23 19:46 Temperature 99.3 F H Temperature Source Oral Pulse Rate 115 H 100 Respiratory Rate 19 H 19 H Respiratory Effort Normal Non-Labored Respiratory Pattern Normal Blood Pressure 137/101 H 153/64 H Blood Pressure Mean 113 93 Pulse Ox 90 95 Oxygen Delivery Method Room Air Nasal Cannula Oxygen Flow Rate (L/min) 2 Weight Weight: 146 lb 14.4 oz Body Mass Index (BMI) 25.2 Physical Exam Narrative Physical Examination: General: Awake, alert, oriented to place, year, month, improved with less lethargy than initial ED presentation per staff report, remains cooperative, seated upright in the ED bed, fatigued and ill-appearing. Skin: Normal color, normal turgor, no icterus, no cyanosis. HEENT: AT/NC, EOMI, PERRLA, dry MM, no carotid bruits or JVD noted. Lungs: Mildly diminished, greater bases, mildly increased respiratory rate but no distress, no rales, ronchi or wheezing. Heart: Mildly tachycardic with regular rhythm; no gallop, rub audible. Abdomen: Soft, NTTP, no suprapubic discomfort, ND, mildly hyperactive BS, no HSM. Extremities: No cyanosis, clubbing, or edema. Neurological: Patient awake, alert, oriented as noted, cognitive function improving, suspect nearing baseline intact; pupils equally reactive to light and accommodation, cranial nerves grossly normal, moving all 4 extremities, no focal deficits, strength severely globally decreased secondary to acute presentation. Psychiatric: Affect appears flat, fatigued, ill-appearing, no acute evidence of depressive or anxiety feelings. Results Lab / Micro Data 06/29/23 19:30 06/29/23 19:30 Labs: Laboratory Results - last 24 hr 06/29/23 19:30: WBC 11.2 H, RBC 4.40, Hgb 11.3 L, Hct 36.7 L, MCV 83.4, MCH 25.7 L, MCHC 30.8 L, RDW Std Deviation 47.3 H, RDW Coeff of Kristyn 15.5 H, Plt Count 357, MPV 11.4, Immature Gran % (Auto) 0.400, Neut % (Auto) 79.6 H, Lymph % (Auto) 9.7 L, [place] % (Auto) 9.5, Eos % (Auto) 0.1, Baso % (Auto) 0.7, Absolute Neuts (auto) 8.9 H, Absolute Lymphs (auto) 1.08, Nucleated RBC % 0, Sodium 133 L, Potassium 4.2, Chloride 99, Carbon Dioxide 26.0, Anion Gap 8, BUN 25 H, Creatinine 1.29 H, Est GFR (MDRD) Af Amer 51 L, Est GFR (MDRD) Non-Af 42 L, BUN/Creatinine Ratio 19.4, Glucose 312 H, Lactic Acid 1.1, Calcium 8.9, Magnesium 2.4, Total Bilirubin 0.50, AST 10 L, ALT 16, Alkaline Phosphatase 107, Total Protein 7.6, Albumin 3.1 L, Globulin 4.5 H, Albumin/Globulin Ratio 0.7 L 06/29/23 20:25: Urine Color Yellow, Urine Clarity Clear, Urine pH 6.0, Ur Specific [place] 1.010, Urine Protein 30 H, Urine Glucose (UA) 1000 H, Urine Ketones 50 H, Urine Occult Blood 25 H, Urine Nitrite Positive H, Urine Bilirubin Negative, Urine Urobilinogen Normal, Ur Leukocyte Esterase 25 H, Urine RBC 0-5 SEEN, Urine WBC 5-10 SEEN, Ur Squamous Epith Cells 0 SEEN, Urine Bacteria RARE, Urine Mucus 0 SEEN Radiology Impression Chest X-Ray 06/29/23 20:10 IMPRESSION: 1. There is overall improved appearance compared to prior comparison exam but still with increased attenuation and reticulations lung bases suboptimally evaluated due to overlying calcified breast implants. Consider lateral views for increased sensitivity and specificity. Electronically Signed: Bernardo Cavazos DO at 20:32 EDT , Assessment & Plan Assessment/Plan (1) Acute UTI: PLAN: Plan The patient is a 77 y/o F w/ PMHx: Chronic COPD w/ chronic hypoxic respiratory failure (2L NC), HTN, HLD, Hypothyroidism with history of Pepe's thyroiditis, Hx BL PE on xarelto, Former Tobacco use, IDDM with insulin pump in place, PAF, CKD II versus III unclear subtype, Chronic memory impairment who presents to the [facility] ED on 06/29/23 with history of general malaise and fatigue, sleeping more over the last 3 to 4 days with decreased appetite and onset of subjective fevers as well as chills with rigors at dinner with private physician evaluation on day of presentation with urinalysis at that time concerning for UTI started on Macrobid with only 1 dose administered but given her debility prompted eventual ED evaluation. #1. Acute Complicated Urinary Tract Infection: Will admit to [facility] ED, pending UCx, continue IVFs, monitor I/Os, continue IV Rocephin based on prior sensitivties as noted w/ transition as able pending sensitivities and speciation. Bld cx x 2 obtained in the ED. given severity of debility and weakness associated will have PT/OT/case management consultation for discharge planning. #2. IDDM type I with insulin pump with hyperglycemia: Patient with hyperglycemia upon presentation, likely related with acute infection, anion gap normal despite urine with noted 50 ketone, acetone level will be requested to be cautious, will allow ADA diet if no nausea or emesis associate with acute presentation, will continue insulin pump and will allow Accu-Cheks off the device if at least the first 2-3 match with Accu-Cheks, will continue insulin sliding scale overlap per device protocol. Patient following of note with endocrinology outpatient. #3. CKD stage II suspected but labs have vacillated and certainly could be progressive to CKD stage III unclear subtype: Admission BUN/Cr 25/1.29, prior baseline creatinine noted to be primarily 0.6-0.9, most recently 03/02/2023 creatinine 1.14 at that time but has vacillated since 2021 although there have been admissions with acute cystitis and THANIA of note. #4. Chronic normocytic anemia: Admission hemoglobin 11.3, baseline more recently appears primarily 9-11 range, prior to this 11/26/2022 hemoglobin 9.5, continue to trend. #5. Hypertension: Continue home regimen including amlodipine, benazepril which will be continued given renal function is not significantly elevated but low threshold to hold if altered, PRN hydralazine. #6. Hyperlipidemia: We will continue patient on statin therapy. #7. Hypothyroidism: History of Ppee's thyroiditis, will continue patient home levothyroxine regimen. #8. History of bilateral pulmonary emboli: We will continue patient home Xarelto regimen. #9. PAF: Noted previous admission with PAF in the acute setting, not on any rate or rhythm agent, will continue patient home Xarelto regimen. #10. Chronic COPD w/ chronic hypoxic respiratory failure (2L NC): Per current list not on inhaler regimen but clarifying, will maintain on ATC budesonide therapy in the interim, PRN albuterol, continue home oxygen supplementation, HOB, IS parameters. #11. Former Tobacco Abuse: Encouraged continued tobacco cessation. #12. DVT prophylaxis: We will continue patient home Xarelto regimen. #13. CODE status: Patient JOSEFINA is her good friend Don and living will is currently in place. Discussed CODE status at length including difference between FULL code, DNR-CCA and DNR-CC status. Following discussions about the differences in these status, requested Full Code status. Advanced Care Planning Face to Face Time: 16 minutes. Charges/Coding Visit Charges Inpatient E&M: 27519 Init Hosp L3 Procedures Hospitalists Procedures: 86983 Advncd Care Plan 30 Min
[2023-06-29] MEDS: Ceftriaxone 1 GM/50 ML BAG IV (21:58)
[2023-06-29 23:21] VITALS: BMI 28.1
[2023-06-29 23:41] VITALS: BP 143/60; PULSE 91; RESP 18; TEMP 37; O2SAT 98
[2023-06-29 23:50] VITALS: O2SAT 98
[2023-06-30 00:31] LABS: Bedside Glucose 319 mg/dL (74-106)
[2023-06-30] MEDS: Insulin Glargine-YFGN 100 UNIT/ML Pen 10 UNIT SC (02:13)
[2023-06-30 05:45] VITALS: BP 147/69; PULSE 96; RESP 18; TEMP 37.3; O2SAT 95
[2023-06-30] MEDS: Insulin Lispro 100 UNIT/ML INSULN.PEN SC ×3 (06:05→16:32)
[2023-06-30] MEDS: Levothyroxine 100 MCG Tablet PO (06:07)
[2023-06-30 06:31] LABS: Bedside Glucose 353 mg/dL (74-106)
[2023-06-30 06:34] LABS: Absolute Lymphocyte Count 0.84 X10^3/uL (0.83-4.51); Basophil# 0.08 X10^3/uL; Basophil% 0.7 % (0-1); Eosinophil# 0.02 X10^3/uL; Eosinophils% 0.2 % (0-5); Hematocrit 34.6 % (37-47); Lymphocyte # 0.84 X10^3/ul (0.83-4.51); Lymphocyte % 7.6 % (19-41); Mean Corp Hgb Conc 31.8 g/dL (32-36); Mean Corpuscular Hgb 26.3 pg (27.0-32.0); Mean Corpuscular Volume 82.6 fL (81-99); Mean Platelet Vol. 10.7 fl (6.2-12.0); Monocyte# 1.06 X10^3/uL; Monocyte% 9.6 % (0-10); NRBC Flagged by Analyzer 0 % (0-5); Neutrophil # 9.02 X10^3/uL (2.7-7.7); Neutrophil % 81.5 % (47-70); Platelet Count 309 K/mm3 (150-450); RBC Distribution Width CV 15.6 % (11.6-14.6); RBC Distribution Width SD 47.2 fl (35.1-43.9); Red Blood Count 4.19 M/mm3 (4.2-5.4); White Blood Count 11.1 K/mm3 (4.4-11.0)
[2023-06-30] MEDS: Budesonide Respules 0.5 MG/2 ML AMPUL.NEB. INHALATION ×2 (06:37→19:20)
[2023-06-30 06:38] VITALS: PULSE 92; RESP 22; O2SAT 95
[2023-06-30 07:01] LABS: ALB/GLOB Ratio 0.6 RATIO (0.9-2.4); AST(SGOT) 12 U/L (15-37); Alanine Aminotransfer ALT/SGPT 14 U/L (13-56); Albumin, Serum 2.6 g/dL (3.2-5.0); Alkaline Phosphatase 95 U/L (45-117); Anion Gap 6 (5-15); BUN 17 mg/dL (7-18); BUN/Creat Ratio 21.3 RATIO (10-20); Calcium,Total 8.3 mg/dL (8.5-10.1); Chloride 105 mmol/L (98-107); EST Glomerular Filtration Rate 74 mL/min (>60); Est Glom Filt Rate - Afr Amer 89 mL/min (>60); Estimated Creatinine Clearance 49.24 ml/min; Globulin 4.3 g/dL (2.2-4.2); Glucose 280 mg/dL (74-106); Protein, Total 6.9 g/dL (6.4-8.2); Sodium Level 137 mmol/L (136-145)
--- NOTE | 2023-06-30 08:33 | PCM.PN.HOSP ---
Subjective Subjective Doing well, feels better today. No issues overnight Objective Data Objective Data Vital Signs: Vital Signs Temp Pulse Resp BP Pulse Ox O2 Del Method O2 Flow Rate 99.2 F H 92 22 H 147/69 H 95 Nasal Cannula 2 06/30/23 05:45 06/30/23 06:38 06/30/23 06:38 06/30/23 05:45 06/30/23 06:38 06/30/23 06:38 06/30/23 06:38 Oxygen Flow Rate (L/min) 2 Oxygen Delivery Method Nasal Cannula Weight: 164 lb 3.91 oz Body Mass Index (BMI) 28.1 Intake & Output: Intake and Output for Last 24 Hours 06/29/23 06/30/23 07/01/23 03:59 03:59 03:59 Intake Total 1050 / 1050 Balance 1050 / 1050 Lab / Micro Data 06/30/23 06:16 06/30/23 06:16 Labs: Laboratory Results - last 24 hr 06/29/23 19:30: WBC 11.2 H, RBC 4.40, Hgb 11.3 L, Hct 36.7 L, MCV 83.4, MCH 25.7 L, MCHC 30.8 L, RDW Std Deviation 47.3 H, RDW Coeff of Kristyn 15.5 H, Plt Count 357, MPV 11.4, Immature Gran % (Auto) 0.400, Neut % (Auto) 79.6 H, Lymph % (Auto) 9.7 L, [place] % (Auto) 9.5, Eos % (Auto) 0.1, Baso % (Auto) 0.7, Absolute Neuts (auto) 8.9 H, Absolute Lymphs (auto) 1.08, Nucleated RBC % 0, Sodium 133 L, Potassium 4.2, Chloride 99, Carbon Dioxide 26.0, Anion Gap 8, BUN 25 H, Creatinine 1.29 H, Est GFR (MDRD) Af Amer 51 L, Est GFR (MDRD) Non-Af 42 L, BUN/Creatinine Ratio 19.4, Glucose 312 H, Lactic Acid 1.1, Calcium 8.9, Magnesium 2.4, Total Bilirubin 0.50, AST 10 L, ALT 16, Alkaline Phosphatase 107, Total Protein 7.6, Albumin 3.1 L, Globulin 4.5 H, Albumin/Globulin Ratio 0.7 L 06/29/23 20:25: Urine Color Yellow, Urine Clarity Clear, Urine pH 6.0, Ur Specific [place] 1.010, Urine Protein 30 H, Urine Glucose (UA) 1000 H, Urine Ketones 50 H, Urine Occult Blood 25 H, Urine Nitrite Positive H, Urine Bilirubin Negative, Urine Urobilinogen Normal, Ur Leukocyte Esterase 25 H, Urine RBC 0-5 SEEN, Urine WBC 5-10 SEEN, Ur Squamous Epith Cells 0 SEEN, Urine Bacteria RARE, Urine Mucus 0 SEEN 06/29/23 22:43: Acetone Level SMALL H 06/30/23 00:13: POC Glucose 319 H 06/30/23 06:05: POC Glucose 353 H 06/30/23 06:16: WBC 11.1 H, RBC 4.19 L, Hgb 11.0 L, Hct 34.6 L, MCV 82.6, MCH 26.3 L, MCHC 31.8 L, RDW Std Deviation 47.2 H, RDW Coeff of Kristyn 15.6 H, Plt Count 309, MPV 10.7, Immature Gran % (Auto) 0.400, Neut % (Auto) 81.5 H, Lymph % (Auto) 7.6 L, [place] % (Auto) 9.6, Eos % (Auto) 0.2, Baso % (Auto) 0.7, Absolute Neuts (auto) 9.0 H, Absolute Lymphs (auto) 0.84, Nucleated RBC % 0, Sodium 137, Potassium 4.0, Chloride 105, Carbon Dioxide 26.0, Anion Gap 6, BUN 17, Creatinine 0.80, Estim Creat Clear Calc 49.24, Est GFR (MDRD) Af Amer 89, Est GFR (MDRD) Non-Af 74, BUN/Creatinine Ratio 21.3 H, Glucose 280 H, Calcium 8.3 L, Total Bilirubin 0.50, AST 12 L, ALT 14, Alkaline Phosphatase 95, Total Protein 6.9, Albumin 2.6 L, Globulin 4.3 H, Albumin/Globulin Ratio 0.6 L Micro: Microbiology 06/29/23 21:59 Nasal Secretion SARS-CoV-2 Antigen (Rapid) - Final Radiography Diagnostic Testing: Radiology Impression Chest X-Ray 06/29/23 20:10 IMPRESSION: 1. There is overall improved appearance compared to prior comparison exam but still with increased attenuation and reticulations lung bases suboptimally evaluated due to overlying calcified breast implants. Consider lateral views for increased sensitivity and specificity. Electronically Signed: Bernardo Cavazos, at 20:32 EDT , Physical Exam Narrative General: Alert, Oriented x3, Cooperative, No apparent distress HEENT: Atraumatic, PERRLA, EOMI, Normocephalic Oral: Moist Mucosa Neck: Supple, No JVD Lungs: Clear to auscultation, Normal air movement, No rhonchi, No wheeze, No rales Cardiovascular: Regular rate, Regular Rhythm, Normal S1, Normal S2, No murmurs Abdomen: Soft, Non Tender, Non-Distended, No Hepato-splenomegaly Extremities: No edema, Capillary Refill Less than 3 Seconds Skin: No rashes, No breakdown Musculoskeletal: No Tenderness to Palpation of Joints or Extremities Neurological: Cranial nerves II-XII grossly intact, Motor Exam 5/5 strength throughout, Sensory exam intact to light touch and pain Psych/Mental Status: Normal Affect, Appropriate Assessment & Plan Assessment/Plan (1) Acute UTI: PLAN: Plan 1. Acute metabolic encephalopathy secondary to UTI ? Continue with antibiotics ? Encephalopathy has resolved ? PT/OT for with weakness though she states that she feels like she could go home ? Urine cultures pending 2. IDDM type I ? She no longer has an insulin pump ? Continue with her long-acting insulin and will adjust as necessary ? Accu-Cheks ACHS 3. HTN/HLD/paroxysmal A-fib ? Blood pressures are stable ? Can resume her anticoagulation both for her A-fib and her history of PEs ? We will monitor blood pressure and make adjustments as necessary, continue with her home medications 4. Hypothyroidism ? Stable ? Continue with Synthroid 5. COPD with chronic hypoxic respiratory failure/history of PEs ? She is not requiring any more of her baseline oxygen at 2 L nasal cannula ? Not on any inhaler therapy at home but placed on inhaler therapy here ? Continue with anticoagulation DVT: Xarelto Charges/Coding Visit Charges Inpatient E&M: 35402 Subs Hosp L2
[2023-06-30] MEDS: Magnesium Chloride 64 MG Delay Rel.Tablet 128 MG PO (09:21)
[2023-06-30] MEDS: Cholecalciferol (Vit D3) 125 MCG CAPSULE (5,000 UNITS) PO (09:21)
[2023-06-30] MEDS: Tolterodine Tartrate 2 MG CAP.SA PO (09:22)
[2023-06-30] MEDS: amLODIPine 5 MG Tablet PO (09:22)
[2023-06-30] MEDS: Rivaroxaban 20 MG Tablet PO (09:22)
[2023-06-30] MEDS: Lisinopril 10 MG Tablet PO (09:23)
[2023-06-30 09:28] VITALS: O2SAT 93
--- NOTE | 2023-06-30 11:20 | NURSING ---
Addendum entered by [place] 06/30/23 11:31: pt responding verbally appropriately Original Note: into patient's room as pt's visitor/sign.other to desk stating pt not responding. pt responds to verbal stimuli. noted confused OT checked by primary RN. vs checked. apical reg but tachy. o2 applied. noted tremors if touched. pt assisted x2 back to bed. attends dry. bedexit maintained. noted drowsy but tremors no longer gross tremors while in bed.
[2023-06-30 11:25] VITALS: BP 155/65; PULSE 113; RESP 20; TEMP 37.5; O2SAT 96
[2023-06-30 11:41] LABS: Bedside Glucose 314 mg/dL (74-106)
[2023-06-30] MEDS: 0.9% Normal Saline 1,000 ML 100 ML IV ×2 (11:56)
--- NOTE | 2023-06-30 12:50 | NURSING ---
Visitor came out of room stating pt is not responsive. Nurses into see pt she is responding to call questions and is appropriately. She is assisted to the bed and repositioned. Vs wnl and visitor return in room. Pt is shaking. She denies any distress at this time. Shaking stopped and pt is resting states she feels tired.
--- NOTE | 2023-06-30 13:05 | CASEMGMT ---
Addendum entered by Robyn Lopez 06/30/23 15:04: [facility] will plan for SOC for pt on 07/06/23. Updated pt and sig other. Addendum entered by Robyn Lopez 06/30/23 14:12: KRISTINE ALEMAN back into pt room, pt sig other is agreeable to HHC and would like [facility] again. He denied need for a list of agencies. Pt states she is agreeable as well. TC to Amber at [facility], referral made, will await decision to accept. Original Note: RN LOVE into pt room, pt could not keep eyes open to answer questions. Pt has DPOA on file at [facility], Dillon Anthony. TC to Dillon, he states he is on his way into the hospital. KRISTINE ALEMAN met in room and he answered assessment questions. KRISTINE ALEMAN Assessment: Face to Face with pt for initial transition planning/care coordination assessment. KRISTINE ALEMAN introduced self and role at [facility], pt/sig other voices understanding and consents to assessment. Care providers, pharmacy, and demographics verified/updated. Admitting Dx: acute UTI PCP:Zeyad Specialists:davonte Trujillo Preferred Pharmacy: [facility] Insurance: [facility], [facility] Benefit: yes LNOK: Andrea Tyson, son; Dillon Anthony, sig other Living Arrangements: Pt lives with sig other in a single story home with a ramp to enter. He states he assists with ADL/IADL's. Transportation: Dillon transports pt to medical appts. DME/HHC/SNF: Pt has a [employer] 2 with sufficient supplies, w/c, cane, FWW and oxygen through [employer]. Email to liaision to verify oxygen level. Dillon reports pt does not like to use her cane or walker at home. Pt has had [facility]HC in the past and no SNF stays. Dillon reports he is pt cg and would like for pt to return home. He is agreeable to having HHC for pt at home. Pt states no further concerns/needs. CM to follow. Advised pt to ask CM if any further question/concerns/needs arise, voices understanding. Pt Goal: Home with HHC Plan: Home with HHC pending progress with therapy
[2023-06-30 16:29] VITALS: BP 135/53; PULSE 106; RESP 18; TEMP 37.2; O2SAT 97
[2023-06-30 17:01] LABS: Bedside Glucose 304 mg/dL (74-106)
[2023-06-30 19:20] VITALS: PULSE 100; RESP 24
[2023-06-30] MEDS: Ceftriaxone 1 GM/50 ML BAG IV (21:07)
[2023-07-01] VITALS (8 sets, daily range): BP systolic 108–144; BP diastolic 70–77; PULSE 78–90; RESP 16–18; TEMP 36.9–37.2; O2SAT 93–99; BMI 28.3
[2023-07-01] MEDS: Insulin Glargine-YFGN 100 UNIT/ML Pen 10 UNIT SC (00:05)
[2023-07-01] MEDS: Insulin Lispro 100 UNIT/ML INSULN.PEN SC ×3 (00:06→11:44)
[2023-07-01] MEDS: Atorvastatin Calcium 10 MG Tablet 5 MG PO (00:07)
[2023-07-01 00:27] LABS: Bedside Glucose 372 mg/dL (74-106)
[2023-07-01 05:43] LABS: Absolute Lymphocyte Count 1.58 X10^3/uL (0.83-4.51); Absolute Neutrophil Count 8.4 X10^3/uL (2.0-7.7); Basophil# 0.07 X10^3/uL; Basophil% 0.6 % (0-1); Eosinophil# 0.03 X10^3/uL; Eosinophils% 0.3 % (0-5); Hemoglobin 9.8 g/dL (12.0-15.0); Lymphocyte # 1.58 X10^3/ul (0.83-4.51); Lymphocyte % 13.5 % (19-41); Mean Corp Hgb Conc 31.6 g/dL (32-36); Mean Corpuscular Hgb 26.3 pg (27.0-32.0); Mean Corpuscular Volume 83.3 fL (81-99); Mean Platelet Vol. 10.5 fl (6.2-12.0); Monocyte# 1.63 X10^3/uL; Monocyte% 13.9 % (0-10); NRBC Flagged by Analyzer 0 % (0-5); Neutrophil # 8.36 X10^3/uL (2.7-7.7); Neutrophil % 71.2 % (47-70); POSITIVE DIFFERENTIAL YES; Platelet Count 290 K/mm3 (150-450); RBC Distribution Width CV 15.9 % (11.6-14.6); RBC Distribution Width SD 48.3 fl (35.1-43.9); Red Blood Count 3.72 M/mm3 (4.2-5.4); White Blood Count 11.7 K/mm3 (4.4-11.0)
[2023-07-01 06:07] LABS: Differential Indicated SCAN CRITERIA MET
[2023-07-01 06:18] LABS: Anion Gap 5 (5-15); BUN 23 mg/dL (7-18); BUN/Creat Ratio 27.2 RATIO (10-20); Chloride 109 mmol/L (98-107); Creatinine, Serum 0.85 mg/dL (0.55-1.02); EST Glomerular Filtration Rate 69 mL/min (>60); Est Glom Filt Rate - Afr Amer 83 mL/min (>60); Estimated Creatinine Clearance 46.34 ml/min; Glucose 220 mg/dL (74-106); Potassium 3.9 mmol/L (3.5-5.1); Sodium Level 138 mmol/L (136-145)
[2023-07-01] MEDS: Levothyroxine 100 MCG Tablet PO (06:31)
[2023-07-01 06:57] LABS: Bedside Glucose 201 mg/dL (74-106)
[2023-07-01] MEDS: Budesonide Respules 0.5 MG/2 ML AMPUL.NEB. INHALATION (07:14)
[2023-07-01 07:19] LABS: Differential Comment SCANNED
[2023-07-01] MEDS: Tolterodine Tartrate 2 MG CAP.SA PO (09:05)
[2023-07-01] MEDS: Rivaroxaban 20 MG Tablet PO (09:05)
[2023-07-01] MEDS: Lisinopril 10 MG Tablet PO (09:05)
[2023-07-01] MEDS: Cholecalciferol (Vit D3) 125 MCG CAPSULE (5,000 UNITS) PO (09:05)
[2023-07-01] MEDS: amLODIPine 5 MG Tablet PO (09:05)
[2023-07-01] MEDS: Magnesium Chloride 64 MG Delay Rel.Tablet 128 MG PO (09:05)
--- NOTE | 2023-07-01 11:29 | PCM.DC.SUM ---
Providers Date of Admission: 06/29/23 Date of Discharge: 07/01/23 Primary Care Physician: Dr. Shena Jeffers DO Reason For Visit: ACUTE UTI Diagnosis Discharge Diagnosis (1) Acute UTI: Status: Acute Code(s): N39.0 - Urinary tract infection, site not specified Medications at Discharge Home Medications amlodipine 5 mg-benazepril 10 mg capsule 1 cap PO DAILY blood pressure 09/08/21 rivaroxaban 20 mg tablet (Xarelto) 20 mg PO DAILY blood thinner 04/23/22 oxybutynin chloride 10 mg tablet,extended release 24 hr 10 mg PO DAILY bladder 09/08/22 simvastatin 10 mg tablet 10 mg PO DAILY cholesterol 09/08/22 levothyroxine 100 mcg tablet 100 mcg PO DAILY #30 tabs 03/02/23 cholecalciferol (vitamin D3) 50 mcg (2,000 unit) tablet (D3 DOTS) 125 mcg PO DAILY 06/29/23 insulin aspart U-100 100 unit/mL subcutaneous solution (Novolog U-100 Insulin aspart) subcut DIABETES 06/29/23 insulin glargine 100 unit/mL subcutaneous solution (Lantus U-100 Insulin) 10 unit subcut [facility] DIABETES 06/29/23 magnesium 200 mg tablet 400 mg PO DAILY 06/29/23 cefdinir 300 mg capsule 300 mg PO BID #10 caps 07/01/23 Hospital Course Operations None Procedures None Summary of Care Provided Minutes Spent on Discharge: 45 Hospital Course: Patient is a 77-year-old female with a past medical history as outlined who was admitted through the ED on 06/29/2023 with a complaint of generalized weakness and fever which have been going on for about 3 to 4 days. She had also been more lethargic and had much less energy. She had also had decreased appetite. Her urinalysis had tested positive for UTI at her PCPs office on the day of admission and she was put on Macrobid. She had taken 1 dose but seem to be getting much weaker so brought her into the ED. Urinalysis in the ED also showed evidence of UTI. Creatinine was also slightly elevated at 1.29. WBC was 11.2. She was admitted and managed for acute encephalopathy and generalized weakness due to UTI. She was started on IV ceftriaxone. Patient's mentation improved and she felt much better. She worked with physical therapy also. Blood and urine cultures were sent off and at time of discharge showed no growth. She remained stable and was discharged on p.o. cefdinir 300 mg twice daily for 5 days on 07/01/2023. She was discharged home with home health care and is to follow-up with her primary care doctor within 1 to 2 weeks. Patient seen and examined prior to discharge. She had no complaints and had an uneventful night. Review of systems otherwise negative. Labs and vitals reviewed. Home medication reviewed and reconciled. Physical Exam Const alert, oriented x3 and no apparent distress General Appearance: cooperative, comfortable and well kempt HEENT normocephalic, head/scalp atraumatic and hearing grossly normal bilaterally Mouth: oral and palatal mucosa normal Neck no lymphadenopathy and supple Resp normal respiratory effort, no retractions, no use of accessory muscles and clear to auscultation bilaterally Cardio regular rate, regular rhythm, S1 normal heart sound, S2 normal heart sound and no murmurs GI normal to inspection, nondistended, normoactive bowel sounds, soft to palpation, non-tender and non-distended Extremity normal to inspection and no clubbing, cyanosis or edema Skin no rashes or lesions noted, no wounds and skin turgor normal Neuro oriented x3, CN's II-XII intact bilaterally, moves all extremities and no focal motor deficits Sensorium / Orientation: awake and alert Motor Exam: strength 5/5 throughout Psych affect normal Weight / BMI Weight Weight: 164 lb 10.965 oz Body Mass Index (BMI) 28.3 ABG / Lab / Microbiology Data 07/01/23 05:30 07/01/23 05:30 Laboratory: Laboratory Results - last 24 hr 06/30/23 11:18: POC Glucose 314 H 06/30/23 16:25: POC Glucose 304 H 07/01/23 00:04: POC Glucose 372 H 07/01/23 05:30: WBC 11.7 H, RBC 3.72 L, Hgb 9.8 L, Hct 31.0 L, MCV 83.3, MCH 26.3 L, MCHC 31.6 L, RDW Std Deviation 48.3 H, RDW Coeff of Kristyn 15.9 H, Plt Count 290, MPV 10.5, Immature Gran % (Auto) 0.500, Neut % (Auto) 71.2 H, Lymph % (Auto) 13.5 L, [place] % (Auto) 13.9 H, Eos % (Auto) 0.3, Baso % (Auto) 0.6, Absolute Neuts (auto) 8.4 H, Absolute Lymphs (auto) 1.58, Nucleated RBC % 0, Differential Comment SCANNED, Diff Path Review May foll, Sodium 138, Potassium 3.9, Chloride 109 H, Carbon Dioxide 24.0, Anion Gap 5, BUN 23 H, Creatinine 0.85, Estim Creat Clear Calc 46.34, Est GFR (MDRD) Af Amer 83, Est GFR (MDRD) Non-Af 69, BUN/Creatinine Ratio 27.2 H, Glucose 220 H, Calcium 8.0 L 07/01/23 06:35: POC Glucose 201 H Microbiology: Microbiology 06/29/23 20:25 Urine, Clean Catch Urine Culture - Preliminary Culture exhibits no growth. 06/29/23 21:59 Nasal Secretion SARS-CoV-2 Antigen (Rapid) - Final D/C Instructions Discharge Diet: Low fat / Low cholesterol Weight Bearing Status: Weight bearing as tolerated Call your doctor if you observe: Fever of 101 or Higher, Shortness of breath, Dizziness, Swelling in the ankles and Chest pain Meaningful Use Info Meaningful Use Diagnoses (Choose all that apply): None applicable Discharge Plan Admission Admit Date/Time: 06/29/23 21:53 Primary Reason for Your Visit: UTI Attending Provider: Shanita Lagos Primary Care Provider: Shena Jeffers Consulting Providers: Roxanne Saxena; Hosea Smith Instructions Patient Instructions: Urinary Tract Infections in Women Discharge Orders/Prescriptions Prescriptions: New cefdinir 300 mg capsule 300 mg PO BID Qty: 10 0RF Continued amlodipine-benazepril 5-10 mg capsule 1 cap PO DAILY Xarelto 20 mg tablet 20 mg PO DAILY oxybutynin chloride 10 mg tablet extended release 24hr 10 mg PO DAILY Patient Comments: take 1 tablet by mouth once daily simvastatin 10 mg tablet 10 mg PO DAILY magnesium 200 mg tablet 400 mg PO DAILY cholecalciferol (vitamin D3) [D3 DOTS] 50 mcg (2,000 unit) tablet 125 mcg PO DAILY insulin glargine [Lantus U-100 Insulin] 100 unit/mL solution 10 unit SUBCUT QHS Patient Comments: inject 10 units subcutaneously at bedtime (DISCARD 28 DAYS AFTER FIRST OPENING) insulin aspart U-100 [Novolog U-100 Insulin aspart] 100 unit/mL solution subcut Patient Comments: use as directed ACCORDING TO SLIDING SCALE - MAX OF 100 UNITS PER DAY HAS IT WRITTEN DOWN WILL NEED TO GET BOYFRIEND TO BRING IT IN levothyroxine 100 mcg tablet 100 mcg PO DAILY Qty: 30 5RF Discontinued nitrofurantoin monohyd/m-cryst 100 mg capsule 100 mg PO Q12H Referrals / Follow Up: Shena Jeffers DO [Primary Care Provider] - Within 1 Week Disposition Disposition (needs filled in before D/C Order can be placed): Home Health Service Charges/Coding Visit Charges Inpatient E&M: 53624 Disch Hosp >30min
[2023-07-01 11:49] LABS: Bedside Glucose 211 mg/dL (74-106)
--- NOTE | 2023-07-01 11:59 | CASEMGMT ---
Addendum entered by Robyn Lopez 07/01/23 12:05: Updated Amber at [facility] that pt will dc today. Original Note: Per pt nurse, pt does not require a change in oxygen rx. RN CM into pt room, pt has portable oxygen tanks in car. Pt and sig other aware that HHC will start on Tuesday. Pt verbalizes understanding.
[2023-07-04 12:53] LABS: Pathologist Review Reviewed
== END 2023-07-01 13:12 | disposition home health service (06) | DRG 689 ==
LOC: ED 21:58 → MS3 22:21
PROVIDERS: Family Medicine; Admitting Provider Family Medicine; Emergency Provider Emergency Medicine; PCP Internal Medicine; Visit Provider Student in an Organized Health Care Education/Training Program
DX: N39.0 Urinary tract infection, site not specified (principal); G93.41 Metabolic encephalopathy; J96.11 Chronic respiratory failure with hypoxia; D63.1 Anemia in chronic kidney disease; E86.0 Dehydration; E10.22 Type 1 diabetes mellitus with diabetic chronic kidney disease; I48.0 Paroxysmal atrial fibrillation; E06.3 Autoimmune thyroiditis; J44.9 Chronic obstructive pulmonary disease, unspecified; E10.65 Type 1 diabetes mellitus with hyperglycemia; Z79.4 Long term (current) use of insulin; I12.9 Hypertensive chronic kidney disease with stage 1 through stage 4 chronic kidney disease, or unspecified chronic kidney disease; N18.2 Chronic kidney disease, stage 2 (mild); E78.5 Hyperlipidemia, unspecified; Z91.148 Patient's other noncompliance with medication regimen for other reason; Z99.81 Dependence on supplemental oxygen; Z79.01 Long term (current) use of anticoagulants; Z79.899 Other long term (current) drug therapy; Z86.711 Personal history of pulmonary embolism; Z87.891 Personal history of nicotine dependence
CPT/HCPCS: 36415; 71045; 80048; 80053; 81001; 82009; 82962; 83605; 83735; 85025; 87040; 87086; 87088; 87811; 94640; 94668; 97162; 97165; 97530; 97535; 99285; J7030; J7050; A4216

== ENCOUNTER → 2023-07-20 | Outpatient (CLI) | payer MEDICARE, OTHER, SELFPAY ==
[2023-07-20 13:52] LABS: Absolute Lymphocyte Count 1.91 X10^3/uL (0.83-4.51); Absolute Neutrophil Count 7.2 X10^3/uL (2.0-7.7); Basophil# 0.12 X10^3/uL; Basophil% 1.2 % (0-1); Eosinophil# 0.15 X10^3/uL; Eosinophils% 1.5 % (0-5); Hematocrit 38.9 % (37-47); Hemoglobin 11.7 g/dL (12.0-15.0); Lymphocyte # 1.91 X10^3/ul (0.83-4.51); Lymphocyte % 18.6 % (19-41); Mean Corp Hgb Conc 30.1 g/dL (32-36); Mean Corpuscular Hgb 25.4 pg (27.0-32.0); Mean Corpuscular Volume 84.6 fL (81-99); Mean Platelet Vol. 11.5 fl (6.2-12.0); Monocyte# 0.81 X10^3/uL; Monocyte% 7.9 % (0-10); NRBC Flagged by Analyzer 0 % (0-5); Neutrophil # 7.23 X10^3/uL (2.7-7.7); Neutrophil % 70.4 % (47-70); Platelet Count 500 K/mm3 (150-450); RBC Distribution Width CV 16.2 % (11.6-14.6); RBC Distribution Width SD 50.2 fl (35.1-43.9); White Blood Count 10.3 K/mm3 (4.4-11.0)
[2023-07-20 13:58] LABS: Albumin, Serum 3.1 g/dL (3.2-5.0); BUN 27 mg/dL (7-18); BUN/Creat Ratio 17.9 RATIO (10-20); Calcium,Total 8.8 mg/dL (8.5-10.1); Chloride 103 mmol/L (98-107); Creatinine, Serum 1.51 mg/dL (0.55-1.02); EST Glomerular Filtration Rate 35 mL/min (>60); Est Glom Filt Rate - Afr Amer 43 mL/min (>60); Glucose 215 mg/dL (74-106); Phosphorus 3.3 mg/dL (2.5-4.9); Potassium 4.8 mmol/L (3.5-5.1); Sodium Level 139 mmol/L (136-145)
== END | disposition home or self-care (01) ==
LOC: LABSPEC 13:37
PROVIDERS: PCP Internal Medicine; Referring Provider Nurse Practitioner Family; Visit Provider Nurse Practitioner Family
DX: N30.01 Acute cystitis with hematuria (principal)
CPT/HCPCS: 80069; 85025; 87077; 87086; 87088; 87186

== ENCOUNTER 2023-08-02 15:18 | Outpatient (RCR) | payer MEDICARE, OTHER, SELFPAY ==
[2023-08-02 16:05] LABS: Color, Urine Yellow (Yellow); Glucose, Dipstick 1000 mg/dl (Normal); Ketone-Dipstick Negative (Negative); Leukocyte Esterase-Dipstick Negative /ul (Negative); Nitrite-Dipstick Negative (Negative); Occult Blood-Urine Negative /ul (Negative); Protein-Dipstick Negative (Negative); Urine Bilirubin Dipstick Negative (Negative); Urine Clarity Clear (Clear); Urine Urobilinogen Normal (Normal)
== END 2023-08-23 23:59 ==
LOC: LABSPEC 15:18
PROVIDERS: PCP Internal Medicine; Referring Provider Internal Medicine; Visit Provider Internal Medicine
DX: J44.9 Chronic obstructive pulmonary disease, unspecified (principal); N39.0 Urinary tract infection, site not specified
CPT/HCPCS: 81002; 87086; 87088

== ENCOUNTER → 2023-09-12 | Outpatient (CLI) | payer MEDICARE, OTHER, SELFPAY ==
[2023-09-12 12:51] LABS: T4 Free Direct 0.79 ng/dL (0.76-1.46); Thyroid Stim Hormone (TSH) 5.11 uIU/mL (0.358-3.74)
== END | disposition home or self-care (01) ==
LOC: LAB 11:37
PROVIDERS: PCP Internal Medicine; Referring Provider Nurse Practitioner Family; Visit Provider Nurse Practitioner Family
DX: E03.8 Other specified hypothyroidism (principal)
CPT/HCPCS: 36415; 84439; 84443

== ENCOUNTER 2024-01-11 21:43 | Emergency (ER) | payer MEDICARE, OTHER, SELFPAY ==
[2024-01-11 21:44] VITALS: TEMP 37.1; BMI 30.7
[2024-01-11 21:45] VITALS: BP 179/119; PULSE 102; PULSE 95; RESP 20; TEMP 37.1; O2SAT 90; O2SAT 92
--- NOTE | 2024-01-11 21:54 | EX.ED.DYSGE1 ---
HPI History of Present Illness Chief Complaint: Complaint Detail of Chief Complaint: Diagnosed with UTI at PCPs office. Informant: spouse/S.O. Onset/Context/Timing Onset: Yesterday Quality: Presents because of shakes, decreased p.o. intake Location: Not applicable Current Severity: Unable to determine Maximum Severity: Unable to determine Worsened by: Unknown Relieved by: Unknown u Associated Symptoms Associated Symptoms: Patient with cognitive impairment. had the supplement. Narrative Narrative: Patient 78-year-old woman. She has history of recurrent urinary tract infections. She is not a good informant. at the supplement. She does have memory impairment. She does not know the month. states that is not abnormal. She has had chills. No documented fever. She was diagnosed with a urinary tract infection yesterday. She was placed on antibiotic. It was not cephalexin. Patient had decreased p.o. intake. There is been no vomiting or diarrhea. She denies headache, visual, ocular auditory symptoms. She denies rhinorrhea, congestion or postnasal drainage. She denies sore throat. She denies cough or shortness of breath. Denies chest discomfort. She denies abdominal pain, nausea, vomiting or diarrhea. She denies dysuria, frequency, urgency or hematuria. 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 Inability to walk Memory loss On home oxygen therapy On home oxygen therapy Osteoporosis Pulmonary embolism, bilateral Smoker Home Medications amlodipine 5 mg-benazepril 10 mg capsule 1 cap PO DAILY blood pressure 09/08/21 [History Last Taken 09/07/22] rivaroxaban 20 mg tablet (Xarelto) 20 mg PO DAILY blood thinner 04/23/22 [History Last Taken 09/08/22] oxybutynin chloride 10 mg tablet,extended release 24 hr 10 mg PO DAILY bladder 09/08/22 [History Last Taken 09/07/22] simvastatin 10 mg tablet 10 mg PO DAILY cholesterol 09/08/22 [History Last Taken 09/07/22] cholecalciferol (vitamin D3) 50 mcg (2,000 unit) tablet (D3 DOTS) 4,000 unit PO .COMPLEX 06/29/23 [History Last Taken 01/11/24] insulin aspart U-100 100 unit/mL subcutaneous solution (Novolog U-100 Insulin aspart) subcut DIABETES 06/29/23 [History Last Taken Unknown] magnesium 200 mg tablet 400 mg PO DAILY 06/29/23 [History Last Taken Unknown] insulin degludec 100 unit/mL subcutaneous solution (Tresiba U-100 Insulin) 7 unit subcut QHS 12/28/23 [History Last Taken Unknown] cefuroxime axetil 500 mg tablet 500 mg PO BID #14 tabs 01/11/24 [Rx Last Taken Unknown] levothyroxine 100 mcg tablet 100 mcg PO .qd, 1 1/2 every 01/11/24 [History Last Taken Unknown] Allergy/AdvReac Type Severity Reaction Status Date / Time ciprofloxacin [From Cipro] Allergy Intermediate hives Verified 01/11/24 21:44 Sulfa (Sulfonamide Allergy Intermediate hives Verified 01/11/24 21:44 Antibiotics) Family History Father Diabetes Respiratory disease Mother No problems noted. 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 alcohol intake: current alcohol intake frequency: a few times a month substance use type: does not use ROS ROS ED Review of Systems ROS Unobtainable: due to mental status Constitutional Constitutional ED: Reports chills; Denies fever(s) or subjective Eyes Eyes: Denies blurry vision, change in vision or diplopia ENT ENT ED: Denies ear pain, rhinorrhea or sore throat Cardiovascular Cardiovascular: Denies chest pain or palpitations Respiratory/Chest Respiratory/Chest: Denies cough, dyspnea or dyspnea on exertion Gastrointestinal Gastrointestinal: Denies abdominal pain, diarrhea or vomiting Genitourinary Genitourinary ED: Denies dysuria, hematuria or urinary frequency Musculoskeletal Musculoskeletal: Denies back pain Integumentary Denies rash Neurologic Neurologic: Reports weakness; Denies headache(s) Hematologic/Lymphatic Hematologic/Lymphatic: Reports systems reviewed and no addt'l complaints, except as documented EXAM Physical Exam Const Vital Signs: 01/11/24 21:44 01/11/24 21:45 01/11/24 21:45 Temperature 98.7 F 98.7 F Temperature Source Oral Oral Pulse Rate 95 102 H Respiratory Rate 20 H 20 H Blood Pressure 179/119 H Blood Pressure Mean 139 Pulse Ox 90 92 Oxygen Delivery Method Nasal Cannula Oxygen Flow Rate (L/min) 2 2 01/11/24 22:45 01/11/24 23:00 01/11/24 23:00 Temperature 98 F 97.9 F 98.4 F Temperature Source Oral Temporal Oral Pulse Rate 108 H 78 95 Respiratory Rate 18 20 H 17 Blood Pressure 170/75 H 172/94 H 174/75 H Blood Pressure Mean 106 120 108 Pulse Ox 96 97 96 Oxygen Delivery Method Nasal Cannula Nasal Cannula Room Air Oxygen Flow Rate (L/min) 2 2 Positive well nourished and well developed Constitutional Narrative: Pleasant elderly woman who appears in no distress. Vital signs remarkable for tachycardia. She is not febrile. She is on chronic oxygen. General Appearance ED: well developed and NAD; Negative for pallor HEENT Reports moist mucous membranes HEENT Narrative: Head is atraumatic and normocephalic. Ears normal. Nares patent. Posterior pharynx is normal. Eyes PERRL and EOMs intact bilaterally General Eye ED: Negative for pale conjunctiva or scleral icterus Neck no lymphadenopathy and no JVD Resp normal respiratory effort and clear to auscultation bilaterally Cardio regular rate, regular rhythm, S1 normal heart sound, S2 normal heart sound and no murmurs GI normal to inspection, nondistended, normoactive bowel sounds, non-tender, non-distended and no masses; Negative for hepatosplenomegaly Back/Spine no CVA tenderness Extremity normal to inspection General Extremety ED: Negative for tenderness Neuro No oriented x3, CN's II-XII intact bilaterally and no sensory deficits noted Motor Exam: strength 5/5 throughout Psych mental status grossly normal Skin no rashes or lesions noted, no wounds and No skin turgor normal General Skin Exam: Negative for elasticity normal, jaundice or pallor MDM MDM MDM Narrative Medical decision making narrative: Since patient is incontinence will have nurse straight catheter urine specimen to determine if she has a urinary tract infection since she is asymptomatic. She is not febrile. CBC was obtained assess white count differential. Electrolyte panel to assess renal function, glucose since she has history of diabetes and sodium. Since she has no respiratory symptoms and auscultation of lungs is unremarkable x-ray was not obtained. Furthermore she is not tachypneic. Awaiting patient's renal function to determine if her dose of antibiotic needs to be adjusted. There are no prior labs available for review. History & Record Review Additional record(s) reviewed:: Prior inpatient record (Admitted June 2023 for UTI.), Prior outpatient record (Endocrine office note was reviewed.), Prior ED visit and Prior labs Lab Data Attestation: I reviewed the patient's lab results. Lab results narrative: White count is elevated with mild shift. There is no bandemia. Patient is anemic. Lactate is normal at 0.9. Urine is suggestive of infection. Uncertain whether she has symptoms or not because she has dementia. states she has incontinence as well. Will send a urine culture. Patient received a dose of Rocephin in the emergency department. Based on her allergies and prior culture and sensitivities we will treat with cefuroxime. Labs: Laboratory Results - last 24 hr 01/11/24 22:10 WBC 13.4 H RBC 4.29 Hgb 11.1 L Hct 35.4 L MCV 82.5 MCH 25.9 L MCHC 31.4 L RDW Std Deviation 45.8 H RDW Coeff of Kristyn 15.3 H Plt Count 406 MPV 11.1 Immature Gran % (Auto) 0.400 Neut % (Auto) 75.6 H Lymph % (Auto) 13.2 L [place] % (Auto) 9.6 Eos % (Auto) 0.4 Baso % (Auto) 0.8 Absolute Neuts (auto) 10.1 H Absolute Lymphs (auto) 1.77 Nucleated RBC % 0 Sodium 134 L Potassium 5.0 Chloride 103 Carbon Dioxide 25.0 Anion Gap 6 BUN 26 H Creatinine 1.03 H Estim Creat Clear Calc 44.88 Est GFR (MDRD) Af Amer 66 Est GFR (MDRD) Non-Af 55 L BUN/Creatinine Ratio 25.2 H Glucose 213 H Lactic Acid 0.9 Calcium 9.3 Total Bilirubin 0.50 AST 27 ALT 17 Alkaline Phosphatase 94 Total Protein 7.7 Albumin 3.1 L Globulin 4.6 H Albumin/Globulin Ratio 0.7 L Urine Color Yellow Urine Clarity Clear Urine pH 6.0 Ur Specific [place] 1.015 Urine Protein 30 H Urine Glucose (UA) 1000 H Urine Ketones Negative Urine Occult Blood 25 H Urine Nitrite Positive H Urine Bilirubin Negative Urine Urobilinogen Normal Ur Leukocyte Esterase 100 H Urine RBC 0 SEEN Urine WBC 5-10 SEEN Ur Squamous Epith Cells 0-5 SEEN Urine Bacteria 2+ Urine Mucus 0 SEEN Estimated GFR is 55. She will receive 500 mg of cefuroxime twice daily for 7 days. Treatment and Re-Evaluation :: was made aware of results. He feels comfortable taking her home. 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, Hypertension Instructions: ED Cystitis Female Adult Prescriptions: New cefuroxime axetil 500 mg tablet 500 mg PO BID Qty: 14 0RF No Action amlodipine-benazepril 5-10 mg capsule 1 cap PO DAILY Xarelto 20 mg tablet 20 mg PO DAILY insulin degludec [Tresiba U-100 Insulin] 100 unit/mL solution 7 unit subcut QHS oxybutynin chloride 10 mg tablet extended release 24hr 10 mg PO DAILY Patient Comments: take 1 tablet by mouth once daily simvastatin 10 mg tablet 10 mg PO DAILY magnesium 200 mg tablet 400 mg PO DAILY cholecalciferol (vitamin D3) [D3 DOTS] 50 mcg (2,000 unit) tablet 4,000 unit PO .COMPLEX Rx Instructions: 4,000 units orally every other day; insulin aspart U-100 [Novolog U-100 Insulin aspart] 100 unit/mL solution subcut Patient Comments: use as directed ACCORDING TO SLIDING SCALE - MAX OF 100 UNITS PER DAY HAS IT WRITTEN DOWN WILL NEED TO GET BOYFRIEND TO BRING IT IN levothyroxine 100 mcg tablet 100 mcg PO .qd, 1 1/2 every Rx Instructions: @0200 Primary Care Provider: Shena Jeffers Referrals: Shena Jeffers DO [Primary Care Provider] - Disposition Disposition: Home, Self Care
[2024-01-11 22:23] LABS: Mucous, Urine 0 SEEN /hpf (<or=2+); Red Blood Cells-Urine 0 SEEN /hpf (0-5)
[2024-01-11 22:26] LABS: Absolute Lymphocyte Count 1.77 X10^3/uL (0.83-4.51); Absolute Neutrophil Count 10.1 X10^3/uL (2.0-7.7); Basophil# 0.11 X10^3/uL; Basophil% 0.8 % (0-1); Eosinophil# 0.05 X10^3/uL; Eosinophils% 0.4 % (0-5); Hematocrit 35.4 % (37-47); Hemoglobin 11.1 g/dL (12.0-15.0); Lymphocyte # 1.77 X10^3/ul (0.83-4.51); Lymphocyte % 13.2 % (19-41); Mean Corp Hgb Conc 31.4 g/dL (32-36); Mean Corpuscular Hgb 25.9 pg (27.0-32.0); Mean Corpuscular Volume 82.5 fL (81-99); Mean Platelet Vol. 11.1 fl (6.2-12.0); Monocyte# 1.29 X10^3/uL; Monocyte% 9.6 % (0-10); NRBC Flagged by Analyzer 0 % (0-5); Neutrophil # 10.12 X10^3/uL (2.7-7.7); Neutrophil % 75.6 % (47-70); Platelet Count 406 K/mm3 (150-450); RBC Distribution Width CV 15.3 % (11.6-14.6); RBC Distribution Width SD 45.8 fl (35.1-43.9); Red Blood Count 4.29 M/mm3 (4.2-5.4); White Blood Count 13.4 K/mm3 (4.4-11.0)
[2024-01-11 22:45] VITALS: BP 170/75; PULSE 108; RESP 18; TEMP 36.6; O2SAT 96
[2024-01-11 22:46] LABS: Color, Urine Yellow (Yellow); Glucose, Dipstick 1000 mg/dl (Normal); Ketone-Dipstick Negative (Negative); Leukocyte Esterase-Dipstick 100 /ul (Negative); Nitrite-Dipstick Positive (Negative); Occult Blood-Urine 25 /ul (Negative); Protein-Dipstick 30 mg/dl (Negative); Specific Gravity, Urine 1.015 (1.002-1.030); Urine Bilirubin Dipstick Negative (Negative); Urine Clarity Clear (Clear); Urine Urobilinogen Normal (Normal)
[2024-01-11 22:58] LABS: Bacteria 2+ /hpf (None Seen); Squamous Epithelial Cells - UA 0-5 SEEN /hpf (5-10); White Blood Cells 5-10 SEEN /hpf (0-5)
[2024-01-11 23:00] VITALS: BP 172/94; BP 174/75; PULSE 78; PULSE 95; RESP 17; RESP 20; TEMP 36.6; TEMP 36.9; O2SAT 96; O2SAT 97
[2024-01-11 23:02] LABS: Lactic Acid 0.9 mmol/L (0.4-1.9)
[2024-01-11 23:14] LABS: ALB/GLOB Ratio 0.7 RATIO (0.9-2.4); AST(SGOT) 27 U/L (15-37); Alanine Aminotransfer ALT/SGPT 17 U/L (13-56); Albumin, Serum 3.1 g/dL (3.2-5.0); Alkaline Phosphatase 94 U/L (45-117); Anion Gap 6 (5-15); BUN 26 mg/dL (7-18); BUN/Creat Ratio 25.2 RATIO (10-20); Calcium,Total 9.3 mg/dL (8.5-10.1); Chloride 103 mmol/L (98-107); Creatinine, Serum 1.03 mg/dL (0.55-1.02); EST Glomerular Filtration Rate 55 mL/min (>60); Est Glom Filt Rate - Afr Amer 66 mL/min (>60); Estimated Creatinine Clearance 44.88 ml/min; Globulin 4.6 g/dL (2.2-4.2); Glucose 213 mg/dL (74-106); Protein, Total 7.7 g/dL (6.4-8.2); Sodium Level 134 mmol/L (136-145)
[2024-01-11] MEDS: Ceftriaxone 1 GM/50 ML BAG IV (23:16)
[2024-01-11 23:46] VITALS: BP 181/87; PULSE 114; RESP 18; TEMP 37.7; O2SAT 94
== END 2024-01-11 23:57 | disposition home or self-care (01) ==
PROVIDERS: Emergency Provider Emergency Medicine; PCP Internal Medicine; Visit Provider Emergency Medicine
DX: N39.0 Urinary tract infection, site not specified (principal); F03.90 Unspecified dementia, unspecified severity, without behavioral disturbance, psychotic disturbance, mood disturbance, and anxiety; J44.9 Chronic obstructive pulmonary disease, unspecified; E10.9 Type 1 diabetes mellitus without complications; I10 Essential (primary) hypertension; E06.3 Autoimmune thyroiditis; E03.9 Hypothyroidism, unspecified; Z87.891 Personal history of nicotine dependence; Z86.718 Personal history of other venous thrombosis and embolism; Z86.711 Personal history of pulmonary embolism
CPT/HCPCS: 80053; 81001; 83605; 85025; 87086; 87088; 87186; 96365; 99282; A4216

== ENCOUNTER → 2024-03-29 | Outpatient (CLI) | payer MEDICARE, OTHER, SELFPAY ==
--- NOTE | 2024-03-29 14:25 | RAD_ITS ---
STUDY: X-RAY CHEST REASON FOR EXAM: Female, 78 years old. COUGH TECHNIQUE: Frontal and lateral views of the chest. COMPARISON: 06/29/2023. FINDINGS: Bilateral calcified breast implants noted. There is hyperinflation of the lungs consistent with chronic obstructive lung disease (COPD). No definite focal infiltrates. Probable mild scarring in the lung bases, stable. No definite effusions. Normal size heart. Normal mediastinum and uli. Normal visualized pulmonary arteries. There is atherosclerotic calcification of the aortic arch with tortuosity. There are diffuse degenerative changes of the visualized thoracic spine. Stable compression fractures of T6 and T7. Normal visualized ribs, clavicles, and shoulders. There is no demonstrated abnormality of the visualized soft tissue structures of the upper abdomen. RAD/Chest PA and Lateral IMPRESSION: There are findings consistent with COPD. There is no evidence of acute chest disease. Electronically Signed: Jaime Lees MD at 17:19 EDT ,
== END | disposition home or self-care (01) ==
LOC: MTRAD 14:23
PROVIDERS: PCP Internal Medicine; Referring Provider Internal Medicine Pulmonary Disease; Visit Provider Internal Medicine Pulmonary Disease
DX: R05.9 Cough, unspecified (principal)
CPT/HCPCS: 71046

== ENCOUNTER 2024-04-13 09:23 | Outpatient (CLI) | payer MEDICARE, OTHER, SELFPAY ==
[2024-04-13 09:57] VITALS: BP 126/58; PULSE 84; RESP 16; TEMP 36.1; O2SAT 95
[2024-04-13] MEDS: 0.9% NaCl Peripheral Flush Adult/Peds IV (10:10)
[2024-04-13] MEDS: Zoledronic Acid 5 MG 100 ML 300 MG IV (10:10)
[2024-04-13 10:42] VITALS: BP 146/59; PULSE 78; RESP 16; O2SAT 98
== END 2024-04-13 23:59 | disposition home or self-care (01) ==
LOC: MEDOUTP 09:23
PROVIDERS: PCP Internal Medicine; Referring Provider Nurse Practitioner Family; Visit Provider Nurse Practitioner Family
DX: M85.80 Other specified disorders of bone density and structure, unspecified site (principal)
CPT/HCPCS: 96365; A4216; J3489

== ENCOUNTER 2024-06-14 17:25 | Inpatient (IN) | payer MEDICARE, OTHER, SELFPAY ==
[2024-06-14] VITALS (9 sets, daily range): BP systolic 137–163; BP diastolic 57–94; PULSE 92–114; RESP 16–28; TEMP 36.2–37.1; O2SAT 85–98; BMI 31.5
[2024-06-14 17:52] LABS: Absolute Lymphocyte Count 2.08 X10^3/uL (0.83-4.51); Absolute Neutrophil Count 6.2 X10^3/uL (2.0-7.7); Eosinophil# 0.26 X10^3/uL; Eosinophils% 2.7 % (0-5); Hemoglobin 6.1 g/dL (12.0-15.0); Lymphocyte # 2.08 X10^3/ul (0.83-4.51); Lymphocyte % 21.6 % (19-41); Mean Corp Hgb Conc 27.7 g/dL (32-36); Mean Corpuscular Hgb 19.4 pg (27.0-32.0); Mean Corpuscular Volume 69.8 fL (81-99); Mean Platelet Vol. 9.4 fl (6.2-12.0); Monocyte# 0.98 X10^3/uL; Monocyte% 10.2 % (0-10); NRBC Flagged by Analyzer 0.3 % (0-5); Neutrophil # 6.15 X10^3/uL (2.7-7.7); Neutrophil % 64.1 % (47-70); Platelet Count 730 K/mm3 (150-450); RBC Distribution Width CV 18.6 % (11.6-14.6); RBC Distribution Width SD 46.5 fl (35.1-43.9); Red Blood Count 3.15 M/mm3 (4.2-5.4); White Blood Count 9.6 K/mm3 (4.4-11.0)
[2024-06-14 18:13] LABS: Anion Gap 4 (5-15); BUN 32 mg/dL (7-18); BUN/Creat Ratio 28.1 RATIO (10-20); Calcium,Total 8.6 mg/dL (8.5-10.1); Chloride 103 mmol/L (98-107); Creatinine, Serum 1.14 mg/dL (0.55-1.02); EST Glomerular Filtration Rate 49 mL/min (>60); Est Glom Filt Rate - Afr Amer 59 mL/min (>60); Glucose 203 mg/dL (74-106); Sodium Level 135 mmol/L (136-145); Troponin-I HS 12 pg/mL (3.0-54.0)
[2024-06-14 20:20] LABS: Free T3 1.8 pg/mL (2.18-3.98); T4 Free Direct 1.15 ng/dL (0.76-1.46)
--- NOTE | 2024-06-14 21:33 | PCM.HP.STD ---
[facility] - General General Date of Admission: 06/14/24 Date of Service: 06/14/24 Chief Complaint: Fatigue 08/06/2015 HPI Narrative LIVIER SMALLS, is a 78 F who presented to the emergency department at the direction of her primary care physician for abnormal labs. Patient had a follow-up appointment today with her primary care physician and blood work was obtained she was found to have a hemoglobin of 5.9 which led to referral to the emergency department. Patient has not had any nausea vomiting, abdominal pain or abnormal stools. She went to see her primary care physician for fatigue and shortness of breath. She states her symptoms only started today and she has been feeling fine before. She has not had any back pain or abnormal bruising. And no obvious signs of blood loss. She has never had anything like this before. She does express interest in getting off of her Xarelto. She takes her Xarelto for atrial fibrillation. Vital signs on presentation showed temperature of 97.2, heart rate 94, respiratory is 18, blood pressure is 145/65 and oxygen saturation was 90% on room air. She did develop some A-fib with RVR during her ED course for which she has a known history but heart rate slowly improved independently of any intervention. CBC on presentation showed a microcytic anemia with a hemoglobin of 6.1 and MCV of 69.8. She has significant thrombocytosis likely related to her iron deficiency with a platelet count of 730,000. Reticulocyte count is 3.79. Chemistry panel showed mild hyponatremia which appears to be chronic and stable at 135. BUN is 32 and serum creatinine is 1.14, both of which are stable. Serum glucose was 203 and patient is a type I diabetic. Iron studies were obtained and she had low total iron, high normal TIBC, low iron saturation and a ferritin of 5. LFTs were unremarkable. Troponin was normal at 12. TSH was 5.79 and free T4 was normal. 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 Memory loss HLD (hyperlipidemia) HTN (hypertension) Pulmonary embolism, bilateral Smoker COPD (chronic obstructive pulmonary disease) Home Medications ?Medication ?Instructions ?Recorded ?Last Taken ?Type amlodipine 5 mg-benazepril 10 mg 1 cap PO DAILY blood pressure 09/08/21 09/07/22 History capsule rivaroxaban 20 mg tablet (Xarelto) 20 mg PO DAILY blood thinner 04/23/22 09/08/22 History oxybutynin chloride 10 mg 10 mg PO DAILY bladder 09/08/22 09/07/22 History tablet,extended release 24 hr simvastatin 10 mg tablet 10 mg PO DAILY cholesterol 09/08/22 09/07/22 History cholecalciferol (vitamin D3) 50 4,000 unit PO .COMPLEX 06/29/23 01/11/24 History mcg (2,000 unit) tablet (D3 DOTS) insulin aspart U-100 100 unit/mL subcut DIABETES 06/29/23 Unknown History subcutaneous solution (Novolog U-100 Insulin aspart) magnesium 200 mg tablet 400 mg PO DAILY 06/29/23 Unknown History insulin degludec 100 unit/mL 7 unit subcut QHS 12/28/23 Unknown History subcutaneous solution (Tresiba U-100 Insulin) levothyroxine 100 mcg tablet 100 mcg PO .qd, 1 1/2 every 01/11/24 Unknown History Allergy/AdvReac Type Severity Reaction Status Date / Time ciprofloxacin (From Cipro) Allergy Intermediate hives Verified 06/14/24 17:26 Sulfa (Sulfonamide Allergy Intermediate hives Verified 06/14/24 17:26 Antibiotics) Penicillins Allergy Rash Verified 06/14/24 17:26 Family History Father Diabetes Respiratory disease Mother No problems noted. 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 alcohol intake: current alcohol intake frequency: a few times a month substance use type: does not use ROS Constitutional Constitutional: Reports fatigue and weakness; Denies anorexia, change in weight, chills, fever(s), malaise, night sweats or other Eyes Eyes: Denies blurry vision, change in eye color, change in vision, discharge from eye(s), double vision, erythema, eye pain, loss of vision or other ENT HEENT: Denies abnormal hearing, dysphagia, ear pain, epistaxis, headache(s), hearing loss, nasal congestion, nasal discharge, post nasal drip, sinus pressure, sore throat or other Cardiovascular Cardiovascular: Denies chest pain, claudication, dyspnea on exertion, edema, lightheadedness, orthopnea, palpitations, paroxysmal nocturnal dyspnea, rapid heart rate, syncope or other Respiratory/Chest Respiratory/Chest: Reports dyspnea, shortness of breath at rest and shortness of breath with exertion Gastrointestinal Gastrointestinal: Denies abdominal pain, coffee ground emesis, constipation, diarrhea, dyspepsia, hematemesis, hematochezia, loose stools, melena, nausea, vomiting or other Genitourinary Genitourinary: Denies burning urination, difficulty urinating, dysuria, hematuria, nocturia, urinary frequency, urinary hesitancy, urinary incontinence, urinary urgency or other Musculoskeletal Musculoskeletal: Denies arthralgias, back pain, joint pain, joint stiffness, joint swelling, myalgias, neck pain or other Neurologic Neurologic: Denies abnormal gait, abnormal speech, confusion, disequilibrium, dizziness, focal weakness, headache(s), numbness, paresthesias, seizure-like activity, seizures, syncope, tingling, tremor(s) or other Psychiatric Psychiatric: Denies anxiety, depression, homicidal ideation, suicidal ideation or other Hematologic/Lymphatic Hematologic/Lymphatic: Denies anemia, easy bleeding, easy bruising, lymphadenopathy or other Allergic/Immunologic Allergic/Immunologic: Denies rhinitis, hives, eczemia, asthma or other Vital Signs Vital Signs Vital Signs: 06/14/24 17:26 06/14/24 17:57 06/14/24 17:57 Temperature 97.2 F L Temperature Source Temporal Pulse Rate 94 Respiratory Rate 18 Respiratory Effort Normal Respiratory Pattern Normal Blood Pressure 145/65 H Blood Pressure Mean 91 Pulse Ox 90 Oxygen Delivery Method Room Air Room Air Oxygen Flow Rate (L/min) 06/14/24 17:57 06/14/24 19:26 06/14/24 21:00 Temperature Temperature Source Pulse Rate 98 114 H Respiratory Rate 16 24 H 20 H Respiratory Effort Respiratory Pattern Blood Pressure 146/61 H 153/71 H Blood Pressure Mean 89 98 Pulse Ox 94 97 85 Oxygen Delivery Method Room Air Room Air Oxygen Flow Rate (L/min) 06/14/24 21:15 Temperature Temperature Source Pulse Rate Respiratory Rate Respiratory Effort Respiratory Pattern Blood Pressure Blood Pressure Mean Pulse Ox 97 Oxygen Delivery Method Nasal Cannula Oxygen Flow Rate (L/min) 3 Weight Weight: 83.325 kg Body Mass Index (BMI) 31.5 Physical Exam Const alert, oriented x3, no apparent distress and well nourished Constitutional Narrative: Obese, older, white female, sitting up in bed, appears comfortable, does not appear toxic General Appearance: cooperative HEENT normocephalic, head/scalp atraumatic, hearing grossly normal bilaterally and moist oral mucous membranes HEENT Narrative: Mallampati 2, no thrush Eyes PERRL and EOMs intact bilaterally; Negative for conjunctivae normal Eyes Narrative: Marked conjunctival pallor bilaterally, no scleral icterus Neck no lymphadenopathy and supple Neck Narrative: Trachea midline, no thyroid enlargement Resp normal respiratory effort, no retractions, no use of accessory muscles and clear to auscultation bilaterally Resp Narrative: Diminished but clear Auscultation: Negative for rales, rhonchi or wheezes Cardio regular rate, regular rhythm, S1 normal heart sound, S2 normal heart sound, no murmurs, no rub, no gallops and no clicks GI normal to inspection, nondistended, normoactive bowel sounds, soft to palpation and non-tender Extremity no clubbing, cyanosis or edema Extremity Narrative: Radial and pedal pulses are 2+, palmar creases are markedly pale Skin no rashes or lesions noted, no wounds, skin turgor normal, no jaundice, no petechiae and no mottling Skin Narrative: Skin is markedly pale Neuro oriented x3, moves all extremities and no focal motor deficits Speech: speech normal Psych Negative for affect normal Psych Narrative: Affect is slightly flat, eye contact is good and patient answers questions appropriately Results Lab / Micro Data 06/14/24 17:40 06/14/24 17:40 Labs: Laboratory Results - last 24 hr 06/14/24 17:40: WBC 9.6, RBC 3.15 L, Hgb 6.1 L, Hct 22.0 L, MCV 69.8 L, MCH 19.4 L, MCHC 27.7 L, RDW Std Deviation 46.5 H, RDW Coeff of Kristyn 18.6 H, Plt Count 730 H, MPV 9.4, Immature Gran % (Auto) 0.400, Neut % (Auto) 64.1, Lymph % (Auto) 21.6, [place] % (Auto) 10.2 H, Eos % (Auto) 2.7, Baso % (Auto) 1.0, Absolute Neuts (auto) 6.2, Absolute Lymphs (auto) 2.08, Nucleated RBC % 0.3, Sodium 135 L, Potassium 5.0, Chloride 103, Carbon Dioxide 28.0, Anion Gap 4 L, BUN 32 H, Creatinine 1.14 H, Est GFR (MDRD) Af Amer 59 L, Est GFR (MDRD) Non-Af 49 L, BUN/Creatinine Ratio 28.1 H, Glucose 203 H, Calcium 8.6, Troponin I High Sens 12, Free T4 1.15, Free T3 pg/dL 1.8 L 06/14/24 18:42: TSH 5.790 H 06/14/24 19:34: Crossmatch See Detail Micro: Microbiology 06/14/24 20:40 Stool Stool Occult Blood (VENKAT) - Final 06/14/24 17:00 Mucosa - Nose SARS-CoV-2, Influenza & RSV (PCR) - Final Assessment & Plan Assessment/Plan (1) Fatigue: (2) Microcytic anemia: (3) Thrombocytosis: (4) Euthyroid sick syndrome: (5) Hyperglycemia: (6) Iron deficiency: PLAN: Plan Acute on chronic anemia secondary to iron deficiency -Highly suspect related to GI bleed -Baseline hemoglobin appears to run between 10 and 12 -Hemoglobin on presentation was 6.1 -Check CT of the abdomen pelvis to rule out retroperitoneal hemorrhage -Hold Xarelto -IV Protonix 40 twice daily -Every 6 hour hemoglobin -Transfused 2 units of packed red blood cells -Will give iron 200 mg IV daily x 3 days--> day 1 of 3 -Consult gastroenterology--> notified of consult via text Thrombocytosis -Likely related to iron deficiency -Iron replacement -2 units packed red blood cells -Repeat lab in a.m. -Should improve as blood counts stabilize and iron deficiency resolved Hyperglycemia with history of DM-1 -Continue basal insulin but decrease rate from 7 units to 3 units due to n.p.o. status -Will likely need to resume 7 units tomorrow once p.o. diet has been initiated -Every 6 hour SSI -Accu-Cheks as ordered -Patient did have recent hemoglobin A1c that was 8.4 -No need to recheck at this time as it would likely be an accurate due to marked anemia Shortness of breath/fatigue -Highly likely related to severe anemia -Should improve with blood transfusion -Reevaluate after blood's been given -As needed oxygen for comfort with low hemoglobin Hypothyroidism with current euthyroid sick syndrome -Continue home levothyroxine Paroxysmal atrial fibrillation with RVR -Patient is not on any rate controlling medication at this time -If heart rates go up will utilize as needed metoprolol -Xarelto on hold due to GI bleed -Patient would like to discuss potentially discontinuing this medication indefinitely CKD stage IIIb -Serum creatinine stable -Continue to monitor -Avoid nephrotoxins -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 Essential hypertension/hyperlipidemia -Continue home simvastatin -Continue home amlodipine/Benzapril Urinary incontinence -Continue home oxybutynin History of bilateral PE -Remote -Currently on Xarelto however patient would like to discontinue -It does appear that her anticoagulation was discontinued with regards to her thromboembolic disease and then restarted for A-fib Dementia -Appears to be mild -Recommend ongoing outpatient follow-up COPD -As needed aerosols as needed -Patient is not on any chronic inhalers History of tobacco abuse -Recommend ongoing cessation DVT prophylaxis -Xarelto on hold due to severe anemia -SCDs CODE STATUS -Full code was verified at the time of admission Charges/Coding Visit Charges Inpatient E&M: 03422 Init Hosp L3
--- NOTE | 2024-06-14 21:37 | EX.ED.DYSGE1 ---
HPI History of Present Illness Chief Complaint: Abn Labs Narrative Narrative: Patient is a 78-year-old female past medical history atrial fibrillation on Xarelto, DVT, dementia, hyperlipidemia, hypertension, COPD who presented to the emergency department with a chief complaint of shortness of breath, fatigue not feeling well. According to the patient and significant other bedside she had a follow-up appointment with her primary care physician today and blood work was obtained they noted that she had a low hemoglobin at 5.9 prompting them to send her here for further evaluation management. According to them her stools have been normal color no black stools. 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 Memory loss HLD (hyperlipidemia) HTN (hypertension) Pulmonary embolism, bilateral Smoker COPD (chronic obstructive pulmonary disease) Home Medications ?Medication ?Instructions ?Recorded ?Last Taken ?Type amlodipine 5 mg-benazepril 10 mg 1 cap PO DAILY blood pressure 09/08/21 09/07/22 History capsule rivaroxaban 20 mg tablet (Xarelto) 20 mg PO DAILY blood thinner 04/23/22 09/08/22 History oxybutynin chloride 10 mg 10 mg PO DAILY bladder 09/08/22 09/07/22 History tablet,extended release 24 hr simvastatin 10 mg tablet 10 mg PO DAILY cholesterol 09/08/22 09/07/22 History cholecalciferol (vitamin D3) 50 4,000 unit PO .COMPLEX 06/29/23 01/11/24 History mcg (2,000 unit) tablet (D3 DOTS) insulin aspart U-100 100 unit/mL subcut DIABETES 06/29/23 Unknown History subcutaneous solution (Novolog U-100 Insulin aspart) magnesium 200 mg tablet 400 mg PO DAILY 06/29/23 Unknown History insulin degludec 100 unit/mL 7 unit subcut QHS 12/28/23 Unknown History subcutaneous solution (Tresiba U-100 Insulin) levothyroxine 100 mcg tablet 100 mcg PO .qd, 1 1/2 every 01/11/24 Unknown History Allergy/AdvReac Type Severity Reaction Status Date / Time ciprofloxacin (From Cipro) Allergy Intermediate hives Verified 06/14/24 17:26 Sulfa (Sulfonamide Allergy Intermediate hives Verified 06/14/24 17:26 Antibiotics) Penicillins Allergy Rash Verified 06/14/24 17:26 Family History Father Diabetes Respiratory disease Mother No problems noted. 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 alcohol intake: current alcohol intake frequency: a few times a month substance use type: does not use ROS ROS ED ROS Narrative Constitutional: Complains of chills denies any fevers, headaches, lightheadedness, dizziness Eyes: Denies changes double vision blurry vision Cardiovascular: Denies chest pain or palpitations Respiratory: Complains of shortness of breath denies coughing wheezing Abdomen: Denies abdominal pain nausea vomit diarrhea : Denies any painful urination, hematuria, polyuria Neurological: Denies numbness, weakness, tingling Musculoskeletal: Denies back pain Skin: Denies rashes or lesions EXAM Physical Exam Narrative Exam Narrative: General: Patient was lying in bed rest comfortably did not appear to be in acute distress Head: Atraumatic, normocephalic Eyes: PERRL bilaterally, EOMI bilateral, no conjunctival injection noted Neck: Soft, nondistended, nontender to palpation, bowel sounds present x 4 Cardiovascular: Patient was tachycardic with an irregular regular rhythm no murmurs gallops rubs noted Respiratory: Clear to auscultation bilaterally no rales rhonchi wheeze noted Abdomen: Soft, nondistended, nontender to palpation, bowel sounds present x 4 Rectal: Hemoccult negative Extremities: +4/5 strength noted in the bilateral lower extremities, no pedal edema on exam Neurological: Patient was following commands knew that she was at [facility] year is 2023 Skin: Warm, dry, tact Const Vital Signs: 06/14/24 17:26 06/14/24 17:57 06/14/24 17:57 Temperature 97.2 F L Temperature Source Temporal Pulse Rate 94 Respiratory Rate 18 Respiratory Effort Normal Respiratory Pattern Normal Blood Pressure 145/65 H Blood Pressure Mean 91 Pulse Ox 90 Oxygen Delivery Method Room Air Room Air Oxygen Flow Rate (L/min) 06/14/24 17:57 06/14/24 19:26 06/14/24 21:00 Temperature Temperature Source Pulse Rate 98 114 H Respiratory Rate 16 24 H 20 H Respiratory Effort Respiratory Pattern Blood Pressure 146/61 H 153/71 H Blood Pressure Mean 89 98 Pulse Ox 94 97 85 Oxygen Delivery Method Room Air Room Air Oxygen Flow Rate (L/min) 06/14/24 21:15 Temperature Temperature Source Pulse Rate Respiratory Rate Respiratory Effort Respiratory Pattern Blood Pressure Blood Pressure Mean Pulse Ox 97 Oxygen Delivery Method Nasal Cannula Oxygen Flow Rate (L/min) 3 MDM MDM MDM Narrative Medical decision making narrative: Patient is a 78-year-old female who presented to the emergency department with a chief complaint of shortness of breath, fatigue and not feeling well and abnormal blood work obtained in the outpatient setting. Patient will have a workup performed here on the differential diagnosis includes but limited to upper GI bleed, chronic anemia, A-fib RVR. Once workup is obtained reviewed she will be reevaluated. Patient's CBC was reviewed and was significant for a hemoglobin of 6.1 patient was typed and screened for 2 units, MCV was microcytic with a MCV of 69.8, platelet count was 7730. Patient's sodium was noted 135, potassium normal at 5, creatinine was noted be 1.14. Patient's BUN elevated at 32, TSH was elevated to 5.79 with a free T4 of 1.15 and a free T3 of 1.8. Patient's EKG still pending at this point time. At this point time after further discussion with the patient do believe she warrants admission to the hospital. Did discuss case with hospitalist Dr. Velázquez who accept patient for admission. Patient is agreeable to plan all question concerns answered bedside. Lab Data Labs: Laboratory Results - last 24 hr 06/14/24 06/14/24 06/14/24 17:40 18:42 19:34 WBC 9.6 RBC 3.15 L Hgb 6.1 L Hct 22.0 L MCV 69.8 L MCH 19.4 L MCHC 27.7 L RDW Std Deviation 46.5 H RDW Coeff of Kristyn 18.6 H Plt Count 730 H MPV 9.4 Immature Gran % (Auto) 0.400 Neut % (Auto) 64.1 Lymph % (Auto) 21.6 [place] % (Auto) 10.2 H Eos % (Auto) 2.7 Baso % (Auto) 1.0 Absolute Neuts (auto) 6.2 Absolute Lymphs (auto) 2.08 Nucleated RBC % 0.3 Sodium 135 L Potassium 5.0 Chloride 103 Carbon Dioxide 28.0 Anion Gap 4 L BUN 32 H Creatinine 1.14 H Est GFR (MDRD) Af Amer 59 L Est GFR (MDRD) Non-Af 49 L BUN/Creatinine Ratio 28.1 H Glucose 203 H Calcium 8.6 Troponin I High Sens 12 TSH 5.790 H Free T4 1.15 Free T3 pg/dL 1.8 L Crossmatch See Detail Discharge Plan Triage Chief Complaint: Abn Labs ED Provider: Marcus Mcneal Dx/Rx/DC Orders Clinical Impression: Atrial fibrillation with RVR, Acute anemia Prescriptions: No Action amlodipine-benazepril 5-10 mg capsule 1 cap PO DAILY Xarelto 20 mg tablet 20 mg PO DAILY insulin degludec [Tresiba U-100 Insulin] 100 unit/mL solution 7 unit subcut QHS oxybutynin chloride 10 mg tablet extended release 24hr 10 mg PO DAILY Patient Comments: take 1 tablet by mouth once daily simvastatin 10 mg tablet 10 mg PO DAILY magnesium 200 mg tablet 400 mg PO DAILY cholecalciferol (vitamin D3) [D3 DOTS] 50 mcg (2,000 unit) tablet 4,000 unit PO .COMPLEX Rx Instructions: 4,000 units orally every other day; insulin aspart U-100 [Novolog U-100 Insulin aspart] 100 unit/mL solution subcut Patient Comments: use as directed ACCORDING TO SLIDING SCALE - MAX OF 100 UNITS PER DAY HAS IT WRITTEN DOWN WILL NEED TO GET BOYFRIEND TO BRING IT IN levothyroxine 100 mcg tablet 100 mcg PO .qd, 1 1/2 every Rx Instructions: @0200 Primary Care Provider: Shena Jeffesr Referrals: Shena Jeffers DO [Primary Care Provider] - Print Language: Cambodian
[2024-06-14 21:51] LABS: Platelet Count 748 K/mm3 (150-450); RET-HE 16.7 pg (30-35); Reticulocyte Count 3.79 % (0.5-1.5)
[2024-06-14 22:14] LABS: AST(SGOT) 13 U/L (15-37); Alanine Aminotransfer ALT/SGPT 17 U/L (13-56); Albumin, Serum 2.9 g/dL (3.2-5.0); Alkaline Phosphatase 91 U/L (45-117); Bilirubin, Direct 0.12 mg/dL (0.00-0.30); Ferritin 5 ng/mL (8-252); Globulin 3.9 g/dL (2.2-4.2); Iron 13 ug/dL (50-170); Iron Binding Capacity,Total 428 ug/dL (250-450); Protein, Total 6.8 g/dL (6.4-8.2)
--- NOTE | 2024-06-14 23:23 | CT_ITS ---
INDICATION: anemia on OAC EXAMINATION: CT Abdomen And Pelvis W/O Contrast Injection TECHNIQUE: Helically acquired images were obtained of the abdomen and pelvis with sagittal and coronal reconstructed images. Individualized dose optimization techniques were used for this CT. IV contrast dosage and agent: None. Oral contrast: None. COMPARISON: None. FINDINGS: VESSELS: No abdominal aortic aneurysm. LIVER: No intrahepatic or extrahepatic biliary duct dilation. Hepatomegaly. GALLBLADDER: Small calcified stones. No evidence of cholecystitis. PANCREAS: No evidence of a mass. No evidence of pancreatitis. SPLEEN: Normal. ADRENAL GLANDS: Normal. KIDNEYS AND URETERS: Left renal stone. No hydronephrosis or hydroureter. No significant asymmetric perinephric stranding. Simple left renal cyst with no follow-up recommended. URINARY BLADDER: Unremarkable. BOWEL: No evidence of diverticulosis or diverticulitis. Appendix not identified. No evidence of bowel obstruction. 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 REPRODUCTIVE ORGANS: Unremarkable. PERITONEUM: No intraabdominal free fluid or free air. LYMPH NODES: No pathologically enlarged mesenteric or retroperitoneal lymph nodes. ABDOMINAL WALL: No abdominal or pelvic wall hernia. BONES: No acute abnormality. LOWER CHEST: Bibasilar atelectasis. CT/Abdomen/Pelvis without Cont IMPRESSION: No acute abnormality. Electronically Signed: Kenny Preston DO at 2:06 EDT ,
[2024-06-15] VITALS (23 sets, daily range): BP systolic 128–152; BP diastolic 47–97; PULSE 88–113; RESP 12–24; TEMP 3.3–37.9; O2SAT 90–97; BMI 29.5
[2024-06-15 01:11] LABS: Hematocrit 22.6 % (37-47); Hemoglobin 6.7 g/dL (12.0-15.0)
[2024-06-15] MEDS: Pantoprazole Sodium 40 MG in 0.9% Normal Saline (100mL MB+) 100 ML 330 MG IV ×3 (01:16→21:56)
[2024-06-15] MEDS: 0.9% Saline Lock 10 ML Syringe IV ×4 (01:17→22:01)
[2024-06-15] MEDS: Iron Sucrose Complex 200 MG in 0.9% Normal Saline (100mL Bag) 100 ML 220 MG IV (01:42)
[2024-06-15 03:19] LABS: Bedside Glucose 118 mg/dL (74-106)
--- NOTE | 2024-06-15 05:58 | PCM.HOSP.N ---
Hospitalist Note Called due to increased work of breathing and worsening hypoxia. Patient now requiring 4 L nasal cannula. She did receive 2 units of packed red blood cells and nursing reports that her symptoms started at the end of her second transfusion. Check stat chest x-ray and BNP. If BNP elevated chest x-ray showed just volume overload will check echocardiogram as well. Also could be related to transfusion reaction. Lasix 40 mg IV push given x 1 dose.
--- NOTE | 2024-06-15 06:05 | RAD_ITS ---
INDICATION: SOB EXAMINATION/TECHNIQUE: X-RAY - XR Chest 1 View COMPARISON: 03/29/2024. FINDINGS: LINES/DEVICES: None. LUNGS: No consolidation or evidence of an effusion. No evidence of edema or a pneumothorax. MEDIASTINUM AND CARDIOVASCULAR STRUCTURES: Cardiac silhouette is normal in size and contour. Mediastinum is unremarkable. BONES AND SOFT TISSUES: No acute abnormality. RAD/Chest 1 View (Portable) IMPRESSION: No evidence of acute cardiopulmonary disease. Electronically Signed: Kenny Preston DO at 7:08 EDT ,
[2024-06-15] MEDS: Furosemide 40 MG/4 ML Vial IV (06:32)
[2024-06-15] MEDS: Levothyroxine 100 MCG Tablet PO (06:41)
[2024-06-15 07:06] LABS: Absolute Lymphocyte Count 1.32 X10^3/uL (0.83-4.51); Absolute Neutrophil Count 13.2 X10^3/uL (2.0-7.7); Basophil# 0.12 X10^3/uL; Basophil% 0.8 % (0-1); Eosinophil# 0.13 X10^3/uL; Eosinophils% 0.8 % (0-5); Hematocrit 29.4 % (37-47); Hemoglobin 8.6 g/dL (12.0-15.0); Lymphocyte # 1.32 X10^3/ul (0.83-4.51); Lymphocyte % 8.4 % (19-41); Mean Corp Hgb Conc 29.3 g/dL (32-36); Mean Corpuscular Hgb 22.3 pg (27.0-32.0); Mean Corpuscular Volume 76.4 fL (81-99); Mean Platelet Vol. 9.3 fl (6.2-12.0); Monocyte# 0.89 X10^3/uL; Monocyte% 5.6 % (0-10); NRBC Flagged by Analyzer 0.3 % (0-5); Neutrophil # 13.21 X10^3/uL (2.7-7.7); Neutrophil % 83.6 % (47-70); POSITIVE MORPHOLOGY YES; Platelet Count 637 K/mm3 (150-450); RBC Distribution Width CV 22.4 % (11.6-14.6); RBC Distribution Width SD 60.2 fl (35.1-43.9); Red Blood Count 3.85 M/mm3 (4.2-5.4); White Blood Count 15.8 K/mm3 (4.4-11.0)
[2024-06-15 07:15] LABS: Differential Indicated SCAN CRITERIA MET
[2024-06-15 07:20] LABS: Allen Test Positive; Base Excess -6 mmol/L (-2 to +2); Bicarbonate 19.9 mmol/L (22-26); Blood Gas Specimen Type ART; Mode Not entered; O2 Delivery Device Cannula; PO2 67 mmHG (75-100); SITE L Radial; SO2 92 % (95-99); Total Carbon Dioxide 21 mmol/L; pCO2 37.8 mmHg (35-45); pH 7.33 (7.35-7.45)
[2024-06-15] MEDS: Insulin Lispro 100 UNIT/ML INSULN.PEN SC ×3 (07:55→17:59)
--- NOTE | 2024-06-15 08:01 | PCM.PN.HOSP ---
Reason for Visit Reason for Visit: Diagnoses Iron deficiency anemia, unspecified (06/14/24) Thrombocytosis, unspecified (06/14/24) Sick-euthyroid syndrome (06/14/24) Iron deficiency (06/14/24) Other fatigue (06/14/24) Hyperglycemia, unspecified (06/14/24) Subjective Subjective Patient is an 78-year-old lady admitted with symptomatic anemia. Hemoglobin on presentation was 6.1 admitted to a monitored nursing floor for subsequent management Objective Data Objective Data Vital Signs: Vital Signs Temp Pulse Resp BP Pulse Ox O2 Del Method O2 Flow Rate 97.9 F 108 H 20 H 145/68 H 90 Nasal Cannula 4 06/15/24 06:40 06/15/24 06:40 06/15/24 06:40 06/15/24 06:40 06/15/24 06:40 06/15/24 06:40 06/15/24 06:40 Oxygen Flow Rate (L/min) 4 Oxygen Delivery Method Nasal Cannula Weight: 80.6 kg Body Mass Index (BMI) 29.5 Intake & Output: Intake and Output for Last 24 Hours 06/13/24 06/14/24 06/15/24 23:59 23:59 23:59 Intake Total 0 / 0 620 / 620 Balance 0 / 0 620 / 620 Lab / Micro Data 06/15/24 06:48 06/15/24 06:48 Labs: Laboratory Results - last 24 hr 06/14/24 17:40: WBC 9.6, RBC 3.15 L, Hgb 6.1 L, Hct 22.0 L, MCV 69.8 L, MCH 19.4 L, MCHC 27.7 L, RDW Std Deviation 46.5 H, RDW Coeff of Kristyn 18.6 H, Plt Count 730 H, MPV 9.4, Immature Gran % (Auto) 0.400, Neut % (Auto) 64.1, Lymph % (Auto) 21.6, [place] % (Auto) 10.2 H, Eos % (Auto) 2.7, Baso % (Auto) 1.0, Absolute Neuts (auto) 6.2, Absolute Lymphs (auto) 2.08, Nucleated RBC % 0.3, Sodium 135 L, Potassium 5.0, Chloride 103, Carbon Dioxide 28.0, Anion Gap 4 L, BUN 32 H, Creatinine 1.14 H, Est GFR (MDRD) Af Amer 59 L, Est GFR (MDRD) Non-Af 49 L, BUN/Creatinine Ratio 28.1 H, Glucose 203 H, Calcium 8.6, Troponin I High Sens 12, Free T4 1.15, Free T3 pg/dL 1.8 L 06/14/24 18:42: TSH 5.790 H 06/14/24 19:34: Blood Type A POSITIVE, Antibody Screen NEGATIVE, Crossmatch See Detail 06/14/24 21:31: Iron 13 L, TIBC 428, Iron Saturation 3.0 L, Ferritin 5 L, Total Bilirubin 0.30, Direct Bilirubin 0.12, AST 13 L, ALT 17, Alkaline Phosphatase 91, Total Protein 6.8, Albumin 2.9 L, Globulin 3.9 06/14/24 21:32: Immature Plt Fraction 2.0, Retic Count 3.79 H, Immature Retic Fraction 38.60 H, Retic Hgb Equivalent 16.7 L 06/15/24 01:00: Hgb 6.7 L, Hct 22.6 L 06/15/24 01:23: POC Glucose 118 H 06/15/24 06:48: WBC 15.8 H, RBC 3.85 L, Hgb 8.6 L, Hct 29.4 L, MCV 76.4 L D, MCH 22.3 L, MCHC 29.3 L D, RDW Std Deviation 60.2 H, RDW Coeff of Kristyn 22.4 H, Plt Count 637 H, MPV 9.3, Immature Gran % (Auto) 0.800, Neut % (Auto) 83.6 H, Lymph % (Auto) 8.4 L, [place] % (Auto) 5.6, Eos % (Auto) 0.8, Baso % (Auto) 0.8, Absolute Neuts (auto) 13.2 H, Absolute Lymphs (auto) 1.32, Nucleated RBC % 0.3 Micro: Microbiology 06/14/24 20:40 Stool Stool Occult Blood (VENKAT) - Final 06/14/24 17:00 Mucosa - Nose SARS-CoV-2, Influenza & RSV (PCR) - Final ABG Data ABG results: ABG 06/15/24 07:17 Specimen Type ART Sample Site L Radial pH 7.33 L Bicarbonate Actual 19.9 L Total CO2 21 Base Excess -6 L O2 Saturation 92 L O2 % 4.0 ABG pCO2 37.8 ABG pO2 67 L Danny Test Positive O2 Delivery Device Cannula Vent Mode Not entered Radiography Diagnostic Testing: Radiology Impression Abdomen/Pelvis CT 06/14/24 23:23 IMPRESSION: No acute abnormality. Electronically Signed: Kenny Preston DO at 2:06 EDT , Chest X-Ray 06/15/24 06:05 IMPRESSION: No evidence of acute cardiopulmonary disease. Electronically Signed: Kenny Preston DO at 7:08 EDT , Physical Exam Narrative GENERAL: cooperative HEENT: Atraumatic; normocephalic EYES; Anicteric, Normal Conjunctiva NECK; supple, normal thyroid, RESPIRATORY: Diminished to auscultation CARDIOVASCULAR: Regular S1 S2, GI: soft, normoactive bowel sounds, : No Renal angle tenderness; EXTREMITIES: No edema, no clubbing, MUSCULOSKELETAL: no muscle wasting NEURO: Awake; no lateralizing signs. SKIN: No Rash PSYCH; Flat affect Assessment & Plan Assessment/Plan (1) Fatigue: (2) Microcytic anemia: (3) Thrombocytosis: (4) Euthyroid sick syndrome: (5) Hyperglycemia: (6) Iron deficiency: PLAN: Plan Patient is an 78-year-old lady admitted with symptomatic anemia. Hemoglobin on presentation was 6.1 admitted to a monitored nursing floor for subsequent management Symptomatic anemia ? Patient hemoglobin on admission was 6.1 admitted to a monitored bed was transfused with 2 unit PRBC with subsequent monitoring with H&H ordered. Patient was also given iron supplementation with consultation placed to GI 2. Acute congestive heart failure ? Secondary to fluid overload following blood transfusion patient did receive furosemide, echo subsequently ordered for EF assessment 3. Thrombocytosis ? Reactive as a result of patient's anemia 4. Diabetes mellitus type 1 ? Patient presented with hyperglycemia resume home insulin regimen in addition to Accu-Cheks before meals and at bedtime with sliding scale coverage 5. Hypothyroidism ? Patient is on levothyroxine home dose continued 6. Dyslipidemia ?Patient is on statin therapy, continued at home dose 7. Paroxysmal atrial fibrillation with RVR ? Rate controlled. Patient is on systemic anticoagulation with rivaroxaban held in view of her significant anemia 8. Hypertension ? Blood pressure controlled, home medications continued with dose adjustment as needed 9. Urinary incontinence ? Patient is on oxybutynin 10. History of bilateral pulmonary embolism ? Patient is on rivaroxaban being held as a result of above 11. COPD ? Currently not in exacerbation aerosol treatment as needed 12. Dementia ? Apparently mild 12. DVT prophylaxis ? Patient was on Xarelto held in view of significant anemia 13. Mild hyponatremia ? Secondary to patient fluid overload status do expect improvement with diuresis subsequent monitoring with daily BMPs ordered Time spent in the patient's overall evaluation,decision-making process, review of diagnostic data, adjustment of management, discussion with other providers, nursing nursing and ancillary staff involved in patient's care documentation, 52 Minutes Charges/Coding Visit Charges Inpatient E&M: 13069 [facility] L3
[2024-06-15 08:02] LABS: Anisocytosis 2+; Hypochromasia 1+
[2024-06-15 08:05] LABS: BNP,B-Type NATRIURETIC PEPTIDE 148.9 pg/mL (0-100)
[2024-06-15 08:55] LABS: ALB/GLOB Ratio 0.6 RATIO (0.9-2.4); AST(SGOT) 14 U/L (15-37); Alanine Aminotransfer ALT/SGPT 18 U/L (13-56); Albumin, Serum 2.7 g/dL (3.2-5.0); Alkaline Phosphatase 95 U/L (45-117); Anion Gap 11 (5-15); BUN 26 mg/dL (7-18); BUN/Creat Ratio 26.2 RATIO (10-20); Calcium,Total 8.1 mg/dL (8.5-10.1); Chloride 101 mmol/L (98-107); Creatinine, Serum 0.99 mg/dL (0.55-1.02); EST Glomerular Filtration Rate 57 mL/min (>60); Est Glom Filt Rate - Afr Amer 69 mL/min (>60); Estimated Creatinine Clearance 47.54 ml/min; Globulin 4.6 g/dL (2.2-4.2); Glucose 422 mg/dL (74-106); Magnesium 2.6 mg/dL (1.6-2.6); Phosphorus 2.6 mg/dL (2.5-4.9); Potassium 4.8 mmol/L (3.5-5.1); Protein, Total 7.3 g/dL (6.4-8.2); Sodium Level 133 mmol/L (136-145)
[2024-06-15 10:32] LABS: Bedside Glucose 391 mg/dL (74-106)
[2024-06-15 10:32] LABS: Bedside Glucose 446 mg/dL (74-106)
--- NOTE | 2024-06-15 10:45 | CASEMGMT ---
KRISTINE ALEMAN Face to Face with patient for initial transition planning/care coordination assessment. RN LOVE introduced self and role at [facility]. Patient lying in bed, alert and oriented. Patient willing to participate in assessment and is able to answer all questions appropriately. Care providers, pharmacy, and demographics verified. Strata: 3 PCP: Zeyad Specialists: Ron MILIEU COUNSELOR, endocrinology Preferred Pharmacy: [facility] Insurance: [facility], [employer] Prescription Benefit: yes Living Will/HPOA: yes, significant other Don Raj LNOK: significant other, son Living Arrangements: Patient lives with significant other in a single story condo with no steps to enter. Patient states significant other Don assists her with care. Transportation: Significant other DME/HHC: Patient states she has shower chair, raised toilet, cane, walker, grab bars, pulse ox, glucometer, and home oxygen at at 2lpm with [employer]. Patient has had [facility] HHC in the past. Patient wishes to discharge home, will monitor for possible HHC at discharge. Patient states she has no further needs or concerns at this time. CM to follow for discharge planning needs that may arise. Disposition Plan: Patient to discharge home with family support and follow-up plans in place. Will monitor for HHC and increase in home oxygen at discharge. Jeanine FELIZ, RN, CM
[2024-06-15 12:12] LABS: Bedside Glucose 479 mg/dL (74-106)
[2024-06-15 12:27] LABS: Hematocrit 29.3 % (37-47); Hemoglobin 8.8 g/dL (12.0-15.0)
--- NOTE | 2024-06-15 12:31 | CHAPLAIN ---
Type of Pastoral Visit _x__ Initial Visit ___ Follow-up Visit ___ On-call Visit ___ General Patient Visit ___ Spiritual Assessment ___ Family Conference ___ Bereavement ___ Rapid Response ___ Code Blue ___ Other (describe below) Pastoral Care Referral From _x__ Patient ___ Family ___ Nurse ___ Physician ___ Garland Machine Operator ___ Divisional Human Resources Director ___ Other (describe below) Sacrament/Intervention _x__ Active listening ___ Anointing ___ Alevism ___ Bereavement ___ Communion ___ Hannah exploration ___ ___ Life review _x__ Prayer ___ Reconciliation ___ Sacrament of Sick _x__ Supportive presence ___ Wedding ___ Other (describe below) Pastoral Comments patient admits to discomfort, inability to sleep last night, and anxiety about what can be done for me; focused visit on what can help her and what positive things are available to help her; pt agreed that listening to country music would be helpful and so TV and channels secured for her enjoyment; RN came in and also assisted in patient's needs at this time; patient also stated that prayer would be helpful to her and so it was given
--- NOTE | 2024-06-15 15:07 | CASEMGMT ---
Addendum entered by Robyn Lopez 06/15/24 16:02: TC to SHELLY Elizabeth can see pt on Tuesday. Pt aware. Green sheet on chart should pt dc over the weekend. Original Note: RN CM into pt room, pt lying in bed on oxygen in no distress. Discussed with pt HHC, pt agreeable to this. She states she had [facility] before. Asked pt where this agency is and she could not state. TC to pt Dillon COOPER, he states pt has had [facility] in the past and he would like them back for the patient. Discussed having SN and PT. He is agreeable to this. He denies the need for a list of options and state they would like who she has had before. TC vega Elizabeth at [facility], referral made, will await returned call.
[2024-06-15] MEDS: Lactated Ringers 1,000 ML 15 ML IV (15:48)
--- NOTE | 2024-06-15 15:52 | PCM.PRE.AN2 ---
ASA Classification* ASA Classification ASA Classification: 3 Assessment & Plan Anesthesia* Anesthesia Assessment Anesthesia Assessment: Discussed sedation and/or anesthesia options, risks, benefits, and alternatives with patient/parents/legal guardian/POA. Questions invited. The patient/parents/legal guardian/POA seems to understand and agrees to proceed with anesthesia plan. Reviewed the physical assessment, medical history, allergy history and patient home medications list prior to surgery/procedure/anesthetic and documented any changes. Performed airway and anesthesia risk assessments. Anesthesia Type Anesthesia Type: MAC History Source History Obtained from:: Patient and Chart Anesthesia Focused Assessment* Temperature: 97.6 F Pulse Rate: 101 Blood Pressure: 140/67 Respiratory Rate: 18 Pulse Ox: 97 Oxygen Delivery Method: Room Air Fraction of Inspired Oxygen (FIO2): 45 Airway Assessment Mouth opens: 2 cm Mallampati Score: IV Teeth Condition: Caps/Crowns (Patient has crowns they are all tight.) Neck Range of motion (ROM): Limited ROM (Decreased extension.) Pertinent Findings EKG Pertinent Findings:: Cardiac 2023. Sinus tachycardia 103 bpm. Focused Labs Anesthesia Preop lab: CBC WBC 15.8 K/mm3 (4.4-11.0) H 06/15/24 06:48 RBC 3.85 M/mm3 (4.2-5.4) L 06/15/24 06:48 Hgb 8.8 g/dL (12.0-15.0) L 06/15/24 12:20 Hct 29.3 % (37-47) L 06/15/24 12:20 Plt Count 637 K/mm3 (150-450) H 06/15/24 06:48 CHEMISTRY Potassium 4.8 mmol/L (3.5-5.1) 06/15/24 06:48 Sodium 133 mmol/L (136-145) L 06/15/24 06:48 Magnesium 2.6 mg/dL (1.6-2.6) 06/15/24 06:48 Phosphorus 2.6 mg/dL (2.5-4.9) 06/15/24 06:48 BUN 26 mg/dL (7-18) H 06/15/24 06:48 Creatinine 0.99 mg/dL (0.55-1.02) 06/15/24 06:48 Glucose 422 mg/dL (74-106) H 06/15/24 06:48 POC Glucose 479 mg/dL (74-106) H* 06/15/24 11:52 TSH 5.790 uIU/mL (0.358-3.740) H 06/14/24 18:42 COAG PT 16.0 SECONDS (11.7-14.9) H 11/22/22 14:50 Lab additional comments: Repeat fingerstick blood sugar was 337 At 16:00 Pre-Assessment Diagnosis/Proposed Procedure Planned Operative Procedure(s): Esophagogastroduodenoscopy. Anesthesia History Anesthesia History - sewing line baler: Anesthesia History - sewing line baler Hx Hospitalization Any Problems With Anesthesia No 06/15/24 12:53 Cholinesterase deficiency No 06/15/24 12:53 You/Your Family Experience No 06/15/24 12:53 fever (hyperthermia) with Relationship Recent Exposure to Contagious No 06/15/24 12:53 Disease Does patient have nerve No 06/15/24 12:53 stimulator Patient instructed to have No 06/15/24 12:53 device shut off --Does patient have Pacemaker No 06/15/24 12:53 or ICD? When Was Last Pacemaker Check QUESTION #4 FULL TEXT: You/Your Family Experience fever (hyperthermia) with Anesthesia Last Oral Intake Last Oral intake: Last Oral Intake NPO since 00:00 06/15/24 12:53 Meds taken in AM with sips of water? Meds patient instructed to take am of surgery PONV PONV - sewing line baler: PONV - sewing line baler Female HX of Motion Sickness HX of N/V After Surgery Non-Smoker Duration of Surgery greater than 60 minutes Number of Risk Factors PONV Score Height & Weight Height & Weight: Anesthesia: Height & Weight Height 5 ft 5 in 06/15/24 12:53 Weight: 80.6 kg 06/15/24 12:53 Body Mass Index (BMI) 29.5 06/15/24 12:53 Respiratory Assessment Respiratory Assessment - sewing line baler: Respiratory Tract Infection Hx - sewing line baler Hx Respiratory Tract Infection No 06/15/24 12:53 STOP Sleep Apnea STOP Sleep Apnea - sewing line baler: STOP Sleep Apnea - sewing line baler Hx Hypertension Yes 06/15/24 00:33 Hx Sleep Apnea No 06/15/24 00:33 CPAP BIPAP Do you snore loudly (louder No 06/15/24 00:33 than talking or can be heard Do you often feel tired/ No 06/15/24 00:33 fatigued/ sleepy during daytime? Has anyone observed you stop No 06/15/24 00:33 breathing during sleep? STOP Results Negative 06/15/24 00:33 QUESTION #5 FULL TEXT : Do you snore loudly (louder than talking or can be heard through closed doors)? Tobacco Use History Tobacco Use History - sewing line baler: Tobacco Use History - sewing line baler Tobacco Use Smoking Status Former smoker 06/15/24 00:33 Hx Tobacco Use Yes 06/15/24 00:33 Years Smoking Packs Smoked per Day Smoking Cessation Date was Yes - quit smoking within 15 06/15/24 00:33 within the last 15 years years Hx Smoking Cessation Date 01/22/21 06/15/24 00:33 Hx Smoking Cessation Counseling Hematologic Medial History Hematologic Hx - sewing line baler: Hematologic Medical Hx - library director Hx of Blood Transfusion No 06/15/24 00:33 Hx of Transfusion in last 3 No 06/15/24 00:33 Months Date of Last Transfusion (if within last 3 months) Ever experience any problems No 06/15/24 00:33 with transfusion(s)? Specify any problems Hx of Preganancy in last 3 N/A 06/15/24 00:33 Months Nurse Filling Out Transfusion RSMAILES 06/15/24 00:33 & Questions: Date: 06/15/24 06/15/24 00:33 Time: 01:08 06/15/24 00:33 Patient unable to answer at this time (ie. confused, unrespo /Reproduction History /Reproductive History - sewing line baler: /Reproductive Hx- sewing line baler Hx Now No 06/15/24 12:53 Gestational Age (in weeks): EDC: Hx Hx Para Hx Section SAB No 06/15/24 12:53 Active Medications Active Medications: Current Medications Generic Name Dose Route Start Last Admin Trade Name Freq PRN Reason Stop Dose Admin Acetaminophen 650 mg 06/15/24 00:33 Acetaminophen 325 Mg Tablet PO Q6H PRN PRN Pain 1-10 Or Fever>100.7 Amlodipine Besylate 5 mg 06/15/24 10:00 Amlodipine 5 Mg Tablet PO DAILY SOPHIA Atorvastatin Calcium 5 mg 06/15/24 22:00 Atorvastatin Calcium 10 Mg Tablet PO QHS SOPHIA Glucagon 1 mg 06/15/24 00:33 Glucagon 1 Mg/Ml Syringe IM X1 PRN HYPOGLYCEMIA Protocol Pantoprazole Sodium 40 mg/ 110 mls @ 330 mls/hr 06/15/24 00:33 06/15/24 10:21 Sodium Chloride IV Infused Q12 SOPHIA Infusion Dextrose 250 mls @ 0 mls/hr 06/15/24 00:33 Dextrose 10%-Water IV .Q0M PRN HYPOGLYCEMIA Protocol As Directed Sodium Chloride 250 mls @ 15 mls/hr 06/15/24 00:34 IV .[id number] PRN Additional IVPB Infusion Sodium Chloride 250 mls @ 15 mls/hr 06/15/24 00:34 IV .[id number] PRN Saline Flush Ferric Sodium Gluconate 270 mls @ 135 mls/hr 06/16/24 10:00 Complex 250 mg/ Sodium IV 06/18/24 10:01 Chloride DAILY SOPHIA Lactated Ringer's 1,000 mls @ 15 mls/hr 06/15/24 15:45 06/15/24 15:48 IV 15 mls/hr .Q48H SOPHIA Administration Insulin Glargine 3 unit 06/15/24 22:00 Insulin Glargine-Yfgn 100 Unit/Ml Pen SC QHS [facility] Insulin Human Lispro 0 unit 06/15/24 00:33 06/15/24 11:57 Insulin Lispro 100 Unit/Ml Insuln.Pen SC 5 unit Q6 SOPHIA Administration Protocol Levothyroxine Sodium 100 mcg 06/15/24 06:00 06/15/24 06:41 Levothyroxine 100 Mcg Tablet PO 100 mcg [id number]@0600 [facility] Administration Levothyroxine Sodium 150 mcg 06/17/24 06:00 Levothyroxine 150 Mcg Tablet PO Alston@0600 [facility] Lisinopril 10 mg 06/15/24 10:00 Lisinopril 10 Mg Tablet PO DAILY [facility] Magnesium Chloride 128 mg 06/15/24 10:00 Magnesium Chloride 64 Mg Delay Rel.Tablet PO DAILY [facility] Melatonin 3 mg 06/15/24 00:33 Melatonin 3 Mg Tablet PO QHS PRN PRN INSOMNIA Ondansetron HCl 4 mg 06/15/24 00:33 Ondansetron 4 Mg/2 Ml Vial IV Q8H PRN PRN NAUSEA/VOMITING Senna/Docusate Sodium 2 tablet 06/15/24 00:33 Senna/Docusate Sodium 1 Tablet PO BID PRN PRN Constipation Sodium Chloride 10 - 40 ml 06/15/24 00:34 06/15/24 06:32 0.9% Saline Lock 10 Ml Syringe IV 10 ml UD PRN Administration SALINE FLUSH Tolterodine Tartrate 2 mg 06/15/24 10:00 Tolterodine Tartrate 2 Mg Cap.Sa PO DAILY [facility] Medical History Anemia Overweight Current use of insulin Hypothyroidism Diabetes Former smoker On home oxygen therapy Hypertension DVT (deep venous thrombosis) Dementia Inability to walk Generalized weakness Diabetes mellitus type 1 Osteoporosis On home oxygen therapy 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 Memory loss HLD (hyperlipidemia) HTN (hypertension) Pulmonary embolism, bilateral Smoker COPD (chronic obstructive pulmonary disease) Home Medications ?Medication ?Instructions ?Recorded ?Last Taken ?Type amlodipine 5 mg-benazepril 10 mg 1 cap PO DAILY blood pressure 09/08/21 09/07/22 History capsule rivaroxaban 20 mg tablet (Xarelto) 20 mg PO DAILY blood thinner 04/23/22 09/08/22 History oxybutynin chloride 10 mg 10 mg PO DAILY bladder 09/08/22 09/07/22 History tablet,extended release 24 hr simvastatin 10 mg tablet 10 mg PO DAILY cholesterol 09/08/22 09/07/22 History cholecalciferol (vitamin D3) 50 4,000 unit PO .COMPLEX 06/29/23 01/11/24 History mcg (2,000 unit) tablet (D3 DOTS) insulin aspart U-100 100 unit/mL subcut DIABETES 06/29/23 Unknown History subcutaneous solution (Novolog U-100 Insulin aspart) magnesium 200 mg tablet 400 mg PO DAILY 06/29/23 Unknown History insulin degludec 100 unit/mL 7 unit subcut QHS 12/28/23 Unknown History subcutaneous solution (Tresiba U-100 Insulin) levothyroxine 100 mcg tablet 100 mcg PO .qd, 1 1/2 every 01/11/24 Unknown History Allergy/AdvReac Type Severity Reaction Status Date / Time ciprofloxacin (From Cipro) Allergy Intermediate hives Verified 06/14/24 17:26 Sulfa (Sulfonamide Allergy Intermediate hives Verified 06/14/24 17:26 Antibiotics) Penicillins Allergy Rash Verified 06/14/24 17:26 Family History Father Diabetes Respiratory disease Mother No problems noted. 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 alcohol intake: current alcohol intake frequency: a few times a month substance use type: does not use Review of Systems (Anesthesia) ROS Narrative System reviewed and no additional complaints, except as documented.
[2024-06-15 16:20] LABS: Bedside Glucose 337 mg/dL (74-106)
--- NOTE | 2024-06-15 17:06 | PCM.POST.ANE ---
Anesthesia: Postop Eval I Current Vital Signs Temperature: 98.6 F Pulse Rate: 108 Blood Pressure: 129/53 Respiratory Rate: 16 Pulse Ox: 93 Oxygen Delivery Method: Room Air Assessment Airway patent: Yes Spontaneous unlabored respirations: Yes Mental status: Awake and Calm nausea: No Vomiting: No Anesthesia Complication: No Fluid Hydration Crystalloid volume administer (ml): 400 Total IV fluid infused: 400 Progress Note Anesthesia document: Postop Eval 1 completed: Yes
--- NOTE | 2024-06-15 17:07 | CON.PCM.GI_ITS ---
HPI Consult Data Date of Consult: 06/15/24 HPI Narrative Reason for Consultation: Anemia HPI Narrative: LIVIER SMALLS, is a 78 F who presented to the emergency department at the direction of her primary care physician for abnormal labs. Patient had a follow-up appointment today with her primary care physician and blood work was obtained she was found to have a hemoglobin of 5.9 which led to referral to the emergency department. Patient has not had any nausea vomiting, abdominal pain or abnormal stools. She went to see her primary care physician for fatigue and shortness of breath. She states her symptoms only started today and she has been feeling fine before. She has not had any back pain or abnormal bruising. And no obvious signs of blood loss. She has never had anything like this before. She does express interest in getting off of her Xarelto. She takes her Xarelto for atrial fibrillation. Vital signs on presentation showed temperature of 97.2, heart rate 94, respiratory is 18, blood pressure is 145/65 and oxygen saturation was 90% on room air. She did develop some A-fib with RVR during her ED course for which she has a known history but heart rate slowly improved independently of any intervention. CBC on presentation showed a microcytic anemia with a hemoglobin of 6.1 and MCV of 69.8. She has significant thrombocytosis likely related to her iron deficiency with a platelet count of 730,000. Reticulocyte count is 3.79. Chemistry panel showed mild hyponatremia which appears to be chronic and stable at 135. BUN is 32 and serum creatinine is 1.14, both of which are stable. Serum glucose was 203 and patient is a type I diabetic. Iron studies were obtained and she had low total iron, high normal TIBC, low iron saturation and a ferritin of 5. LFTs were unremarkable. Troponin was normal at 12. TSH was 5.79 and free T4 was normal. 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 Memory loss HLD (hyperlipidemia) HTN (hypertension) Pulmonary embolism, bilateral Smoker COPD (chronic obstructive pulmonary disease) Home Medications ?Medication ?Instructions ?Recorded ?Last Taken ?Type amlodipine 5 mg-benazepril 10 mg 1 cap PO DAILY blood pressure 09/08/21 09/07/22 History capsule rivaroxaban 20 mg tablet (Xarelto) 20 mg PO DAILY blood thinner 04/23/22 09/08/22 History oxybutynin chloride 10 mg 10 mg PO DAILY bladder 09/08/22 09/07/22 History tablet,extended release 24 hr simvastatin 10 mg tablet 10 mg PO DAILY cholesterol 09/08/22 09/07/22 History cholecalciferol (vitamin D3) 50 4,000 unit PO .COMPLEX 06/29/23 01/11/24 History mcg (2,000 unit) tablet (D3 DOTS) insulin aspart U-100 100 unit/mL subcut DIABETES 06/29/23 Unknown History subcutaneous solution (Novolog U-100 Insulin aspart) magnesium 200 mg tablet 400 mg PO DAILY 06/29/23 Unknown History insulin degludec 100 unit/mL 7 unit subcut QHS 12/28/23 Unknown History subcutaneous solution (Tresiba U-100 Insulin) levothyroxine 100 mcg tablet 100 mcg PO .qd, 1 1/2 every 01/11/24 06/15/24 History hypothyroid Allergy/AdvReac Type Severity Reaction Status Date / Time ciprofloxacin (From Cipro) Allergy Intermediate hives Verified 06/14/24 17:26 Sulfa (Sulfonamide Allergy Intermediate hives Verified 06/14/24 17:26 Antibiotics) Penicillins Allergy Rash Verified 06/14/24 17:26 Family History Father Diabetes Respiratory disease Mother No problems noted. 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 alcohol intake: current alcohol intake frequency: a few times a month substance use type: does not use ROS Constitutional Constitutional: Reports fatigue and weakness; Denies anorexia, change in weight, chills, fever(s), malaise, night sweats or other Eyes Eyes: Denies blurry vision, change in eye color, change in vision, discharge from eye(s), double vision, erythema, eye pain, loss of vision or other ENT HEENT: Denies abnormal hearing, dysphagia, ear pain, epistaxis, headache(s), hearing loss, nasal congestion, nasal discharge, post nasal drip, sinus pressure, sore throat or other Cardiovascular Cardiovascular: Denies chest pain, claudication, dyspnea on exertion, edema, lightheadedness, orthopnea, palpitations, paroxysmal nocturnal dyspnea, rapid heart rate, syncope or other Respiratory/Chest Respiratory/Chest: Reports dyspnea, shortness of breath at rest and shortness of breath with exertion Gastrointestinal Gastrointestinal: Denies abdominal pain, coffee ground emesis, constipation, diarrhea, dyspepsia, hematemesis, hematochezia, loose stools, melena, nausea, vomiting or other Genitourinary Genitourinary: Denies burning urination, difficulty urinating, dysuria, hematuria, nocturia, urinary frequency, urinary hesitancy, urinary incontinence, urinary urgency or other Musculoskeletal Musculoskeletal: Denies arthralgias, back pain, joint pain, joint stiffness, joint swelling, myalgias, neck pain or other Neurologic Neurologic: Denies abnormal gait, abnormal speech, confusion, disequilibrium, dizziness, focal weakness, headache(s), numbness, paresthesias, seizure-like activity, seizures, syncope, tingling, tremor(s) or other Psychiatric Psychiatric: Denies anxiety, depression, homicidal ideation, suicidal ideation or other Hematologic/Lymphatic Hematologic/Lymphatic: Denies anemia, easy bleeding, easy bruising, lymphadenopathy or other Allergic/Immunologic Allergic/Immunologic: Denies rhinitis, hives, eczemia, asthma or other Physical Exam Narrative GENERAL: cooperative HEENT: Atraumatic; normocephalic EYES; Anicteric, Normal Conjunctiva NECK; supple, normal thyroid, RESPIRATORY: Diminished to auscultation CARDIOVASCULAR: Regular S1 S2, GI: soft, normoactive bowel sounds, : No Renal angle tenderness; EXTREMITIES: No edema, no clubbing, MUSCULOSKELETAL: no muscle wasting NEURO: Awake; no lateralizing signs. SKIN: No Rash PSYCH; Flat affect Lab / Micro Data 06/15/24 12:20 06/15/24 06:48 Labs: Laboratory Results - last 24 hr 06/14/24 17:40: WBC 9.6, RBC 3.15 L, Hgb 6.1 L, Hct 22.0 L, MCV 69.8 L, MCH 19.4 L, MCHC 27.7 L, RDW Std Deviation 46.5 H, RDW Coeff of Kristyn 18.6 H, Plt Count 730 H, MPV 9.4, Immature Gran % (Auto) 0.400, Neut % (Auto) 64.1, Lymph % (Auto) 21.6, Carson % (Auto) 10.2 H, Eos % (Auto) 2.7, Baso % (Auto) 1.0, Absolute Neuts (auto) 6.2, Absolute Lymphs (auto) 2.08, Nucleated RBC % 0.3, Sodium 135 L, Potassium 5.0, Chloride 103, Carbon Dioxide 28.0, Anion Gap 4 L, BUN 32 H, C reatinine 1.14 H, Est GFR (MDRD) Af Amer 59 L, Est GFR (MDRD) Non-Af 49 L, B UN/Creatinine Ratio 28.1 H, Glucose 203 H, Calcium 8.6, Troponin I High Sens 12, Free T4 1.15, Free T3 pg/dL 1.8 L 06/14/24 18:42: TSH 5.790 H 06/14/24 19:34: Blood Type A POSITIVE, Antibody Screen NEGATIVE, Crossmatch See Detail 06/14/24 21:31: Iron 13 L, TIBC 428, Iron Saturation 3.0 L, Ferritin 5 L, Total Bilirubin 0.30, Direct Bilirubin 0.12, AST 13 L, ALT 17, Alkaline Phosphatase 91, Total Protein 6.8, Albumin 2.9 L, Globulin 3.9 06/14/24 21:32: Immature Plt Fraction 2.0, Retic Count 3.79 H, Immature Retic Fraction 38.60 H, Retic Hgb Equivalent 16.7 L 06/15/24 01:00: Hgb 6.7 L, Hct 22.6 L 06/15/24 01:23: POC Glucose 118 H 06/15/24 06:34: POC Glucose 391 H 06/15/24 06:48: WBC 15.8 H, RBC 3.85 L, Hgb 8.6 L, Hct 29.4 L, MCV 76.4 L D, MCH 22.3 L, MCHC 29.3 L D, RDW Std Deviation 60.2 H, RDW Coeff of Kristyn 22.4 H, Plt Count 637 H, MPV 9.3, Immature Gran % (Auto) 0.800, Neut % (Auto) 83.6 H, Lymph % (Auto) 8.4 L, Carson % (Auto) 5.6, Eos % (Auto) 0.8, Baso % (Auto) 0.8, Absolute Neuts (auto) 13.2 H, Absolute Lymphs (auto) 1.32, Nucleated RBC % 0.3, Hypochromasia 1+, Anisocytosis 2+, Sodium 133 L, Potassium 4.8, Chloride 101, Carbon Dioxide 21.0, Anion Gap 11, BUN 26 H, Creatinine 0.99, Estim Creat Clear Calc 47.54, Est GFR (MDRD) Af Amer 69, Est GFR (MDRD) Non-Af 57 L, B UN/Creatinine Ratio 26.2 H, Glucose 422 H, Calcium 8.1 L, Phosphorus 2.6, Magnesium 2.6, Total Bilirubin 0.70, AST 14 L, ALT 18, Alkaline Phosphatase 95, B-Natriuretic Peptide 148.9 H, Total Protein 7.3, Albumin 2.7 L, Globulin 4.6 H, Albumin/Globulin Ratio 0.6 L 06/15/24 07:53: POC Glucose 446 H 06/15/24 11:52: POC Glucose 479 H* 06/15/24 12:20: Hgb 8.8 L, Hct 29.3 L 06/15/24 16:02: POC Glucose 337 H Micro: Microbiology 06/14/24 20:40 Stool Stool Occult Blood (VENKAT) - Final 06/14/24 17:00 Mucosa - Nose SARS-CoV-2, Influenza & RSV (PCR) - Final ABG Data ABG results: ABG 06/15/24 07:17 Specimen Type ART Sample Site L Radial pH 7.33 L Bicarbonate Actual 19.9 L Total CO2 21 Base Excess -6 L O2 Saturation 92 L O2 % 4.0 ABG pCO2 37.8 ABG pO2 67 L Danny Test Positive O2 Delivery Device Cannula Vent Mode Not entered Imaging Radiology Impression Abdomen/Pelvis CT 06/14/24 23:23 IMPRESSION: No acute abnormality. Electronically Signed: Kenny Preston DO at 2:06 EDT , Chest X-Ray 06/15/24 06:05 IMPRESSION: No evidence of acute cardiopulmonary disease. Electronically Signed: Kenny Preston DO at 7:08 EDT , Assessment & Plan Assessment/Plan (1) Fatigue: (2) Microcytic anemia: (3) Thrombocytosis: (4) Euthyroid sick syndrome: (5) Hyperglycemia: (6) Iron deficiency: PLAN: Plan Acute on chronic anemia secondary to iron deficiency -Highly suspect related to GI bleed -Baseline hemoglobin appears to run between 10 and 12 -Hemoglobin on presentation was 6.1 -Check CT of the abdomen pelvis to rule out retroperitoneal hemorrhage -Hold Xarelto -IV Protonix 40 twice daily -Every 6 hour hemoglobin -Transfused 2 units of packed red blood cells -Will give iron 200 mg IV daily x 3 days--> day 1 of 3 -Patient will need an egd Charges/Coding Visit Charges Inpatient E&M: 49713 Init Hosp L3
--- NOTE | 2024-06-15 17:07 | POSTOPAN2_ITS ---
Anesthesia Postop Eval I Sum Postop Eval Completion status Anesthesia document: Postop Eval 1 completed: Yes Anesthesia Postop Eval I Summary Anesthesia Postop Eval I Summary: Anesthesia Postop Eval I: Assessment Summary Airway patent Yes 06/15/24 17:07 [employer]IGH [employer]CHO[employer]UAGE TUTOR.[email or web address] Spontaneous unlabored Yes 06/15/24 17:07 HIGH S[employer] LANGUAGE TUTOR.TIM respirations Mental status Awake,Calm 06/15/24 17:07 HIGH S[employer] LANGUAGE TUTOR.TIM nausea No 06/15/24 17:07 HIGH SCHO[employer] FOREIGN LANGUAGE TUTOR.TIM Vomiting No 06/15/24 17:07 HIGH SCHO[employer] LANGUAGE TUTOR.TIM Anesthesia Postop Eval I: Fluid Summary Crystalloid volume administer 400 06/15/24 17:07 HIGH SCHO[employer] FORE[employer] LANGUAGE TUTOR.MDOT (ml) Colloids volume administered ( ml) Blood Product volume administered (ml) Total IV fluid infused 400 06/15/24 17:07 HIGH SCHO[employer] LANGUAGE TUTOR.TIM Anesthesia Postop Eval I: Summary Notes Anesthesia Complication No 06/15/24 17:07 [employer]IGH [employer] LANGUAGE TUTOR.TIM Anesthesia Complication Comment: Post-operative progress note Anesthesia: Postop Eval II Evaluation Mental status: Awake and Calm Pain Level: 0 nausea: No Vomiting: No Complications Anesthesia Complication: No
--- NOTE | 2024-06-15 17:07 | PCM.POSTANE2 ---
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 Spontaneous unlabored Yes 06/15/24 17:07 FLAT SHEET [email or web address].TIM respirations Mental status Awake,Calm 06/15/24 17:07 FLAT SHEET [email or web address].TIM nausea No 06/15/24 17:07 FLAT SHEET [email or web address].TIM Vomiting No 06/15/24 17:07 FLAT SHEET [email or web address].TIM Anesthesia Postop Eval I: Fluid Summary Crystalloid volume administer 400 06/15/24 17:07 FLAT SHEET MAKER.MDOT (ml) Colloids volume administered ( ml) Blood Product volume administered (ml) Total IV fluid infused 400 06/15/24 17:07 FLAT SHEET [email or web address].TIM Anesthesia Postop Eval I: Summary Notes Anesthesia Complication No 06/15/24 17:07 FLAT SHEET [email or web address].TIM Anesthesia Complication Comment: Post-operative progress note Anesthesia: Postop Eval II Evaluation Mental status: Awake and Calm Pain Level: 0 nausea: No Vomiting: No Complications Anesthesia Complication: No
--- NOTE | 2024-06-15 17:21 | OP.EGD_ITS ---
Patient Name: Coni Tyson Procedure Date: 06/15/2024 4:40 PM Date of : 1945 Age: 78 Procedure: Upper GI endoscopy Indications: Iron deficiency anemia Providers: Wang Valentin DO Medicines: Monitored Anesthesia Care Patient Profile: This is an 78 year old female. Refer to note in patient chart for documentation of history and physical. Patient has symptoms. Complications: No immediate complications. Procedure: Pre-Anesthesia Assessment: - Prior to the procedure, a History and Physical was performed, and patient medications and allergies were reviewed. The patient is competent. The risks and benefits of the procedure and the sedation options and risks were discussed with the patient. All questions were answered and informed consent was obtained. Patient identification and proposed procedure were verified by the physician in the pre-procedure area. Mental Status Examination: alert and oriented. Airway Examination: normal oropharyngeal airway and neck mobility. Respiratory Examination: clear to auscultation. Prophylactic Antibiotics: The patient does not require prophylactic antibiotics. Prior Anticoagulants: The patient has taken no anticoagulant or antiplatelet agents. ASA Grade Assessment: III - A patient with severe systemic disease. After reviewing the risks and benefits, the patient was deemed in satisfactory condition to undergo the procedure. The anesthesia plan was to use monitored anesthesia care (MAC). Immediately prior to administration of medications, the patient was re-assessed for adequacy to receive sedatives. The heart rate, respiratory rate, oxygen saturations, blood pressure, adequacy of pulmonary ventilation, and response to care were monitored throughout the procedure. The physical status of the patient was re-assessed after the procedure. After obtaining informed consent, the endoscope was passed under direct vision. Throughout the procedure, the patient's blood pressure, pulse, and oxygen saturations were monitored continuously. The Endoscope was introduced through the mouth, and advanced to the second part of duodenum. The upper GI endoscopy was accomplished without difficulty. The patient tolerated the procedure well. Scope In: 4:52:51 PM Scope Out: 5:01:58 PM Total Procedure Duration Time 0 hours 9 minutes 7 seconds Findings: The examined esophagus was normal. The entire examined stomach was normal. A single 5 mm angiodysplastic lesion with bleeding was found in the duodenal bulb. Coagulation for hemostasis using heater probe was successful. Estimated blood loss was minimal. A single 5 mm angiodysplastic lesion without bleeding was found in the first portion of the duodenum. Coagulation for hemostasis using heater probe was successful. There was a large lipoma, 20 mm in diameter, in the first portion of the duodenum. Impression: - Normal esophagus. - Normal stomach. - A single bleeding angiodysplastic lesion in the duodenum. Treated with a heater probe. - A single non-bleeding angiodysplastic lesion in the duodenum. Treated with a heater probe. - Duodenal lipoma. - No specimens collected. Recommendation: - Return patient to [facility] for ongoing care. - Resume regular diet. - Continue present medications. Procedure Code(s): --- Professional --- 12471, Esophagogastroduodenoscopy, flexible, transoral; with control of bleeding, any method CPT copyright 2021 [employer]. All rights reserved. The codes documented in this report are preliminary and upon battery vent plug inserter review may be revised to meet current compliance requirements. Wang Valentin DO 06/15/2024 5:21:03 PM This report has been signed electronically. Number of Addenda: 0 Note Initiated On: 06/15/2024 4:40 PM
--- NOTE | 2024-06-15 17:21 | OP.CCLET_ITS ---
06/15/2024 Shena Jeffers [address] [place] [address] Re : Upper GI endoscopy procedure for Coni Tyson Dear Dr. Jeffers This procedure was performed on Saturday, June 15, 2024. My impressions and recommendations are as follows: Impressions : - Normal esophagus. - Normal stomach. - A single bleeding angiodysplastic lesion in the duodenum. Treated with a heater probe. - A single non-bleeding angiodysplastic lesion in the duodenum. Treated with a heater probe. - Duodenal lipoma. - No specimens collected. Recommendations : - Return patient to [facility] for ongoing care. - Resume regular diet. - Continue present medications. My findings are described in the full procedure note, which is enclosed. If I can be of further assistance, please feel free to contact me at . Sincerely, Wang Valentin, 06/15/2024 5:21:03 PM This report has been signed electronically.
[2024-06-15] MEDS: Tolterodine Tartrate 2 MG CAP.SA PO (17:54)
[2024-06-15] MEDS: Magnesium Chloride 64 MG Delay Rel.Tablet 128 MG PO (17:54)
[2024-06-15] MEDS: Lisinopril 10 MG Tablet PO (17:55)
[2024-06-15] MEDS: amLODIPine 5 MG Tablet PO (17:55)
[2024-06-15 18:18] LABS: Bedside Glucose 408 mg/dL (74-106)
[2024-06-15 18:26] LABS: Hematocrit 29.7 % (37-47); Hemoglobin 8.9 g/dL (12.0-15.0)
--- NOTE | 2024-06-15 20:27 | CPS ---
Patient refused PAP therapy on 2l 90%
[2024-06-15] MEDS: Insulin Glargine-YFGN 100 UNIT/ML Pen SC (22:05)
[2024-06-15 22:30] LABS: Bedside Glucose 366 mg/dL (74-106)
[2024-06-15] MEDS: Atorvastatin Calcium 10 MG Tablet 5 MG PO (23:55)
[2024-06-16] MEDS: Insulin Lispro 100 UNIT/ML INSULN.PEN SC ×3 (00:01→13:57)
[2024-06-16 00:22] LABS: Bedside Glucose 394 mg/dL (74-106)
[2024-06-16 00:52] VITALS: BP 136/62; PULSE 98; RESP 20; TEMP 36.8; O2SAT 96
[2024-06-16 04:00] VITALS: BP 146/75; PULSE 98; RESP 18; TEMP 36.8
[2024-06-16] MEDS: Levothyroxine 100 MCG Tablet PO (05:35)
[2024-06-16 06:02] LABS: Bedside Glucose 358 mg/dL (74-106)
--- NOTE | 2024-06-16 07:39 | PCM.PN.HOSP ---
Reason for Visit Reason for Visit: Diagnoses Iron deficiency anemia, unspecified (06/14/24) Thrombocytosis, unspecified (06/14/24) Sick-euthyroid syndrome (06/14/24) Iron deficiency (06/14/24) Other fatigue (06/14/24) Hyperglycemia, unspecified (06/14/24) Subjective Subjective Patient underwent upper EGD. Details of reports as noted below Objective Data Objective Data Vital Signs: Vital Signs Temp Pulse Resp BP Pulse Ox O2 Del Method O2 Flow Rate 98.3 F 98 18 146/75 H 96 Nasal Cannula 4 06/16/24 04:00 06/16/24 04:00 06/16/24 04:00 06/16/24 04:00 06/16/24 00:52 06/16/24 04:00 06/16/24 04:00 FiO2 45 06/15/24 16:06 Oxygen Flow Rate (L/min) 4 Oxygen Delivery Method Nasal Cannula Weight: 80.6 kg Body Mass Index (BMI) 29.5 Intake & Output: Intake and Output for Last 24 Hours 06/14/24 06/15/24 06/16/24 23:59 23:59 23:59 Intake Total 0 / 0 1378.25 / 1498.25 180 / 180 Output Total 1800 / 2000 200 / 200 Balance 0 / 0 -421.75 / -501.75 -20 / -20 Lab / Micro Data 06/16/24 07:39 06/16/24 07:39 Labs: Laboratory Results - last 24 hr 06/15/24 06:34: POC Glucose 391 H 06/15/24 06:48: Hypochromasia 1+, Anisocytosis 2+, Sodium 133 L, Potassium 4.8, Chloride 101, Carbon Dioxide 21.0, Anion Gap 11, BUN 26 H, Creatinine 0.99, Estim Creat Clear Calc 47.54, Est GFR (MDRD) Af Amer 69, Est GFR (MDRD) Non-Af 57 L, BUN/Creatinine Ratio 26.2 H, Glucose 422 H, Calcium 8.1 L, Phosphorus 2.6, Magnesium 2.6, Total Bilirubin 0.70, AST 14 L, ALT 18, Alkaline Phosphatase 95, B-Natriuretic Peptide 148.9 H, Total Protein 7.3, Albumin 2.7 L, Globulin 4.6 H, Albumin/Globulin Ratio 0.6 L 06/15/24 07:53: POC Glucose 446 H 06/15/24 11:52: POC Glucose 479 H* 06/15/24 12:20: Hgb 8.8 L, Hct 29.3 L 06/15/24 16:02: POC Glucose 337 H 06/15/24 17:50: Hgb 8.9 L, Hct 29.7 L 06/15/24 17:51: POC Glucose 408 H 06/15/24 22:05: POC Glucose 366 H 06/16/24 00:00: POC Glucose 394 H 06/16/24 05:37: POC Glucose 358 H Micro: Microbiology 06/14/24 20:40 Stool Stool Occult Blood (VENKAT) - Final 06/14/24 17:00 Mucosa - Nose SARS-CoV-2, Influenza & RSV (PCR) - Final Physical Exam Narrative GENERAL: cooperative HEENT: Atraumatic; normocephalic EYES; Anicteric, Normal Conjunctiva NECK; supple, normal thyroid, RESPIRATORY: Diminished to auscultation CARDIOVASCULAR: Regular S1 S2, GI: soft, normoactive bowel sounds, : No Renal angle tenderness; EXTREMITIES: No edema, no clubbing, MUSCULOSKELETAL: no muscle wasting NEURO: Awake; no lateralizing signs. SKIN: No Rash PSYCH; Flat affect Assessment & Plan Assessment/Plan (1) Fatigue: (2) Microcytic anemia: (3) Thrombocytosis: (4) Euthyroid sick syndrome: (5) Hyperglycemia: (6) Iron deficiency: PLAN: Plan Patient is an 78-year-old lady admitted with symptomatic anemia. Hemoglobin on presentation was 6.1 admitted to a monitored nursing floor for subsequent management 1. Symptomatic anemia ? Patient hemoglobin on admission was 6.1 admitted to a monitored bed was transfused with 2 unit PRBC with subsequent monitoring with H&H ordered. Patient was also given iron supplementation with consultation placed to GI -06/16/2024 patient underwent EGD the day prior findings as below Normal esophagus. Normal stomach. A single bleeding angiodysplastic lesion in the duodenum. Treated with a heater probe. A single non-bleeding angiodysplastic lesion in the duodenum. Treated with a heater probe. Duodenal lipoma. 2. Acute congestive heart failure ? Secondary to fluid overload following blood transfusion patient did receive furosemide, echo subsequently ordered for EF assessment 3. Thrombocytosis ? Reactive as a result of patient's anemia 4. Diabetes mellitus type 1 ? Patient presented with hyperglycemia resume home insulin regimen in addition to Accu-Cheks before meals and at bedtime with sliding scale coverage 5. Hypothyroidism ? Patient is on levothyroxine home dose continued 6. Dyslipidemia ?Patient is on statin therapy, continued at home dose 7. Paroxysmal atrial fibrillation with RVR ? Rate controlled. Patient is on systemic anticoagulation with rivaroxaban held in view of her significant anemia 8. Hypertension ? Blood pressure controlled, home medications continued with dose adjustment as needed 9. Urinary incontinence ? Patient is on oxybutynin 10. History of bilateral pulmonary embolism ? Patient is on rivaroxaban being held as a result of above ? Instructions written for patient to start rivaroxaban within a week 11. COPD ? Currently not in exacerbation aerosol treatment as needed 12. Dementia ? Apparently mild 12. DVT prophylaxis ? Patient was on Xarelto held in view of significant anemia 13. Mild hyponatremia ? Secondary to patient fluid overload status do expect improvement with diuresis subsequent monitoring with daily BMPs ordered Time spent in the patient's overall evaluation,decision-making process, review of diagnostic data, adjustment of management, discussion with other providers, nursing nursing and ancillary staff involved in patient's care documentation, 36 minutes
[2024-06-16 08:07] LABS: Absolute Lymphocyte Count 1.53 X10^3/uL (0.83-4.51); Absolute Neutrophil Count 10.2 X10^3/uL (2.0-7.7); Basophil# 0.11 X10^3/uL; Basophil% 0.8 % (0-1); Eosinophil# 0.12 X10^3/uL; Eosinophils% 0.9 % (0-5); Hematocrit 26.6 % (37-47); Lymphocyte # 1.53 X10^3/ul (0.83-4.51); Lymphocyte % 11.6 % (19-41); Mean Corp Hgb Conc 30.1 g/dL (32-36); Mean Corpuscular Hgb 22.3 pg (27.0-32.0); Mean Corpuscular Volume 74.3 fL (81-99); Mean Platelet Vol. 9.3 fl (6.2-12.0); Monocyte# 1.03 X10^3/uL; Monocyte% 7.8 % (0-10); NRBC Flagged by Analyzer 0.5 % (0-5); Neutrophil # 10.23 X10^3/uL (2.7-7.7); POSITIVE MORPHOLOGY YES; Platelet Count 592 K/mm3 (150-450); RBC Distribution Width CV 22.1 % (11.6-14.6); Red Blood Count 3.58 M/mm3 (4.2-5.4); White Blood Count 13.1 K/mm3 (4.4-11.0)
--- NOTE | 2024-06-16 08:37 | CASEMGMT ---
Social Work Power of engine cowling installer for healthcare w/Living Will provision initialed is scanned into [employer], Manjeet Anthony is listed as healthcare POA. MANDEEP Singh
[2024-06-16 09:06] LABS: Anion Gap 6 (5-15); BUN 22 mg/dL (7-18); BUN/Creat Ratio 20.8 RATIO (10-20); Calcium,Total 8.7 mg/dL (8.5-10.1); Chloride 107 mmol/L (98-107); Creatinine, Serum 1.06 mg/dL (0.55-1.02); EST Glomerular Filtration Rate 53 mL/min (>60); Est Glom Filt Rate - Afr Amer 64 mL/min (>60); Glucose 214 mg/dL (74-106); Magnesium 2.5 mg/dL (1.6-2.6); Potassium 4.4 mmol/L (3.5-5.1); Sodium Level 140 mmol/L (136-145)
[2024-06-16 09:08] LABS: Differential Indicated SCAN CRITERIA MET
[2024-06-16 09:26] LABS: Anisocytosis 3+; Differential Comment SCANNED; Polychromasia 2+
[2024-06-16 09:27] LABS: Microcytosis 1+
[2024-06-16 09:28] LABS: Target Cells 1+
[2024-06-16 10:18] VITALS: O2SAT 92
--- NOTE | 2024-06-16 10:35 | DS.PCM_ITS ---
Providers Date of Admission: 06/14/24 Date of Discharge: 06/16/24 Primary Care Physician: Dr. Shena Jeffers, DO Consultations 06/15/24 00:33 Consult: Gastroenterology Routine Consulting Provider: [facility] Reason for Consult: GI bleed EMERGENT Consult: No MD Notified: Yes Date Notified: 06/14/24 Time Notified: 23:10 Method of Notification: Text Reason For Visit: GI BLEED ACUTE ANEMIA Diagnosis Discharge Diagnosis (1) Fatigue: Status: Acute Code(s): R53.83 - Other fatigue (2) Microcytic anemia: Status: Acute Code(s): D50.9 - Iron deficiency anemia, unspecified (3) Thrombocytosis: Status: Acute Code(s): D75.839 - Thrombocytosis, unspecified (4) Euthyroid sick syndrome: Status: Acute Code(s): E07.81 - Sick-euthyroid syndrome (5) Hyperglycemia: Status: Acute Code(s): R73.9 - Hyperglycemia, unspecified (6) Iron deficiency: Status: Acute Code(s): E61.1 - Iron deficiency Plan Patient is an 78-year-old lady admitted with symptomatic anemia. Hemoglobin on presentation was 6.1 admitted to a monitored nursing floor for subsequent management 1. Symptomatic anemia ? Patient hemoglobin on admission was 6.1 admitted to a monitored bed was transfused with 2 unit PRBC with subsequent monitoring with H&H ordered. Patient was also given iron supplementation with consultation placed to GI -06/16/2024 patient underwent EGD the day prior findings as below Normal esophagus. Normal stomach. A single bleeding angiodysplastic lesion in the duodenum. Treated with a heater probe. A single non-bleeding angiodysplastic lesion in the duodenum. Treated with a heater probe. Duodenal lipoma. 2. Acute congestive heart failure with preserved ejection ? Secondary to fluid overload following blood transfusion patient did receive furosemide, echo subsequently ordered for EF assessment ? 2D echo demonstrated ejection fraction of 75% ? Prescription was written for furosemide 20 mg daily 3. Thrombocytosis ? Reactive as a result of patient's anemia 4. Diabetes mellitus type 1 ? Patient presented with hyperglycemia resume home insulin regimen in addition to Accu-Cheks before meals and at bedtime with sliding scale coverage ? Adjusted patient insulin dose prior to discharge 5. Hypothyroidism ? Patient is on levothyroxine home dose continued 6. Dyslipidemia ?Patient is on statin therapy, continued at home dose 7. Paroxysmal atrial fibrillation with RVR ? Rate controlled. Patient is on systemic anticoagulation with rivaroxaban held in view of her significant anemia 8. Hypertension ? Blood pressure controlled, home medications continued with dose adjustment as needed 9. Urinary incontinence ? Patient is on oxybutynin 10. History of bilateral pulmonary embolism ? Patient is on rivaroxaban being held as a result of above ? Instructions written for patient to start rivaroxaban within a week 11. COPD ? Currently not in exacerbation aerosol treatment as needed 12. Dementia ? Apparently mild 12. DVT prophylaxis ? Patient was on Xarelto held in view of significant anemia 13. Mild hyponatremia ? Secondary to patient fluid overload status do expect improvement with diuresis subsequent monitoring with daily BMPs ordered Time spent in the patient's overall evaluation,decision-making process, review of diagnostic data, adjustment of management, discussion with other providers, nursing nursing and ancillary staff involved in patient's care documentation, 36 minutes Medications at Discharge Home Medications amlodipine 5 mg-benazepril 10 mg capsule 1 cap PO DAILY blood pressure 09/08/21 rivaroxaban 20 mg tablet (Xarelto) 20 mg PO DAILY blood thinner 04/23/22 oxybutynin chloride 10 mg tablet,extended release 24 hr 10 mg PO DAILY bladder 09/08/22 simvastatin 10 mg tablet 10 mg PO DAILY cholesterol 09/08/22 cholecalciferol (vitamin D3) 50 mcg (2,000 unit) tablet (D3 DOTS) 4,000 unit PO .COMPLEX 06/29/23 insulin aspart U-100 100 unit/mL subcutaneous solution (Novolog U-100 Insulin aspart) subcut DIABETES 06/29/23 magnesium 200 mg tablet 400 mg PO DAILY 06/29/23 levothyroxine 100 mcg tablet 100 mcg PO .qd, 1 1/2 every hypothyroid 01/11/24 furosemide 20 mg tablet (Lasix) 20 mg PO DAILY #30 tabs 06/16/24 insulin degludec 100 unit/mL subcutaneous solution (Tresiba U-100 Insulin) 20 unit (0.2 mL) subcut QHS #10 mL 06/16/24 iron, carbonyl 45 mg tablet 45 mg PO DAILY #30 tabs 06/16/24 pantoprazole 40 mg tablet,delayed release (Protonix) 40 mg PO DAILY #30 tabs 06/16/24 Physical Exam Narrative GENERAL: cooperative HEENT: Atraumatic; normocephalic EYES; Anicteric, Normal Conjunctiva NECK; supple, normal thyroid, RESPIRATORY: Diminished to auscultation CARDIOVASCULAR: Regular S1 S2, GI: soft, normoactive bowel sounds, : No Renal angle tenderness; EXTREMITIES: No edema, no clubbing, MUSCULOSKELETAL: no muscle wasting NEURO: Awake; no lateralizing signs. SKIN: No Rash PSYCH; Flat affect Weight / BMI Weight Weight: 80.6 kg Body Mass Index (BMI) 29.5 ABG / Lab / Microbiology Data 06/16/24 07:39 06/16/24 07:39 Laboratory: Laboratory Results - last 24 hr 06/15/24 11:52: POC Glucose 479 H* 06/15/24 12:20: Hgb 8.8 L, Hct 29.3 L 06/15/24 16:02: POC Glucose 337 H 06/15/24 17:50: Hgb 8.9 L, Hct 29.7 L 06/15/24 17:51: POC Glucose 408 H 06/15/24 22:05: POC Glucose 366 H 06/16/24 00:00: POC Glucose 394 H 06/16/24 05:37: POC Glucose 358 H 06/16/24 07:39: WBC 13.1 H, RBC 3.58 L, Hgb 8.0 L, Hct 26.6 L, MCV 74.3 L, MCH 22.3 L, MCHC 30.1 L, RDW Std Deviation 58.0 H, RDW Coeff of Kristyn 22.1 H, Plt Count 592 H, MPV 9.3, Immature Gran % (Auto) 0.900, Neut % (Auto) 78.0 H, Lymph % (Auto) 11.6 L, [place] % (Auto) 7.8, Eos % (Auto) 0.9, Baso % (Auto) 0.8, A bsolute Neuts (auto) 10.2 H, Absolute Lymphs (auto) 1.53, Nucleated RBC % 0.5, Differential Comment SCANNED, Polychromasia 2+, Anisocytosis 3+, Microcytosis 1+, Target Cells 1+, Sodium 140, Potassium 4.4, Chloride 107, Carbon Dioxide 27.0, Anion Gap 6, BUN 22 H, Creatinine 1.06 H, Estim Creat Clear Calc 44.40, Est GFR (MDRD) Af Amer 64, Est GFR (MDRD) Non-Af 53 L, BUN/Creatinine Ratio 20.8 H, Glucose 214 H, Calcium 8.7, Phosphorus 2.0 L, Magnesium 2.5 Microbiology: Microbiology 06/14/24 20:40 Stool Stool Occult Blood (VENKAT) - Final 06/14/24 17:00 Mucosa - Nose SARS-CoV-2, Influenza & RSV (PCR) - Final D/C Instructions Discharge Diet: 1800 Calorie Control Diet Discharge Activity: Return to Normal Activity Call your doctor if you observe: Fever of 101 or Higher, Shortness of breath, Fainting spells and Chest pain Meaningful Use Info Meaningful Use Meaningful Use Diagnoses (Choose all that apply): None applicable Ischemic Stroke Statin Dosing Therapy Reference: STATIN DOSE THERAPY REFERENCE: * Patients > 75 years receive moderate or high dose statin therapy. * Patients 75 years or YOUNGER should receive HIGH intensity statin dose unless contraindicated. You will be required to document reason for non-treatment if statin daily dose does not meet guidelines. HIGH DOSE STATIN THERAPY DAILY Atorvastatin > than or = to 40 mg Rosuvastatin > than or = to 20 mg Amlodipine + Atorvastatin > than or = to 2.5/40 mg Ezetimibe + Simvastatin 10/80 mg Simvastatin 80mg Discharge Plan Admission Admit Date/Time: 06/14/24 23:05 Attending Provider: Eder Stovall Primary Care Provider: Shena Jeffers Consulting Providers: Roxi Velázquez Discharge Orders/Prescriptions Prescriptions: New iron, carbonyl 45 mg tablet 45 mg PO DAILY Qty: 30 0RF pantoprazole [Protonix] 40 mg tablet,delayed release (DR/EC) 40 mg PO DAILY Qty: 30 0RF furosemide [Lasix] 20 mg tablet 20 mg PO DAILY Qty: 30 0RF Continued amlodipine-benazepril 5-10 mg capsule 1 cap PO DAILY oxybutynin chloride 10 mg tablet extended release 24hr 10 mg PO DAILY Patient Comments: take 1 tablet by mouth once daily simvastatin 10 mg tablet 10 mg PO DAILY magnesium 200 mg tablet 400 mg PO DAILY cholecalciferol (vitamin D3) [D3 DOTS] 50 mcg (2,000 unit) tablet 4,000 unit PO .COMPLEX Rx Instructions: 4,000 units orally every other day; insulin aspart U-100 [Novolog U-100 Insulin aspart] 100 unit/mL solution subcut Patient Comments: use as directed ACCORDING TO SLIDING SCALE - MAX OF 100 UNITS PER DAY HAS IT WRITTEN DOWN WILL NEED TO GET BOYFRIEND TO BRING IT IN levothyroxine 100 mcg tablet 100 mcg PO .qd, 1 1/2 every Rx Instructions: @0200 Changed insulin degludec [Tresiba U-100 Insulin] 100 unit/mL solution 20 unit subcut QHS Qty: 10 0RF Held Xarelto 20 mg tablet 20 mg PO DAILY Hold Instructions: Resume on 06/22/24. Referrals / Follow Up: Shena Jeffers DO [Primary Care Provider] - In 1 Week Disposition Disposition (needs filled in before D/C Order can be placed): Home Health Service Charges/Coding Visit Charges Inpatient E&M: 40662 Disch Hosp >30min
[2024-06-16] MEDS: Insulin Glargine-YFGN 100 UNIT/ML Pen 10 UNIT SC (11:03)
[2024-06-16] MEDS: Magnesium Chloride 64 MG Delay Rel.Tablet 128 MG PO (11:03)
[2024-06-16] MEDS: Tolterodine Tartrate 2 MG CAP.SA PO (11:03)
[2024-06-16] MEDS: Lisinopril 10 MG Tablet PO (11:04)
[2024-06-16] MEDS: amLODIPine 5 MG Tablet PO (11:04)
[2024-06-16 11:05] VITALS: BP 137/53; PULSE 101; RESP 20; TEMP 36.9; O2SAT 97
[2024-06-16] MEDS: Sodium Ferric Gluconat 250 MG in 0.9% Normal Saline 250 ML 135 MG IV (11:07)
[2024-06-16 11:19] LABS: Bedside Glucose 334 mg/dL (74-106)
[2024-06-16] MEDS: Pantoprazole Sodium 40 MG in 0.9% Normal Saline (100mL MB+) 100 ML 330 MG IV (13:55)
[2024-06-16 14:45] VITALS: O2SAT 85; O2SAT 92; O2SAT 94
--- NOTE | 2024-06-16 15:20 | PN.GI_ITS ---
Subjective Subjective Patient underwent endoscopic evaluation yesterday for acute blood loss anemia thought to be secondary to GI bleed. She has had no bleeding overnight. Prior to her undergoing endoscopic procedure she was having multiple episodes of GI bleeding. Objective Data Objective Data Vital Signs: Vital Signs Temp Pulse Resp BP Pulse Ox O2 Del Method O2 Flow Rate 98.4 F 101 H 20 H 137/53 H 94 Nasal Cannula 2 06/16/24 11:05 06/16/24 11:05 06/16/24 11:05 06/16/24 11:05 06/16/24 14:45 06/16/24 11:05 06/16/24 14:45 FiO2 45 06/15/24 16:06 Oxygen Flow Rate (L/min) [ 3 AMBULATING with Oxygen #2] Oxygen Flow Rate (L/min) [ 2 AMBULATING with Oxygen #1] Oxygen Flow Rate (L/min) [At 2 REST with Oxygen] Oxygen Flow Rate (L/min) 4 Oxygen Delivery Method Nasal Cannula Weight: 177 lb 11.081 oz Body Mass Index (BMI) 29.5 Intake & Output: Intake and Output for Last 24 Hours 06/14/24 06/15/24 06/16/24 23:59 23:59 23:59 Intake Total 0 / 0 1378.25 / 1498.25 560 / 560 Output Total 1800 / 2000 200 / 200 Balance 0 / 0 -421.75 / -501.75 360 / 360 Lab / Micro Data 06/16/24 07:39 06/16/24 07:39 Labs: Laboratory Results - last 24 hr 06/15/24 16:02: POC Glucose 337 H 06/15/24 17:50: Hgb 8.9 L, Hct 29.7 L 06/15/24 17:51: POC Glucose 408 H 06/15/24 22:05: POC Glucose 366 H 06/16/24 00:00: POC Glucose 394 H 06/16/24 05:37: POC Glucose 358 H 06/16/24 07:39: WBC 13.1 H, RBC 3.58 L, Hgb 8.0 L, Hct 26.6 L, MCV 74.3 L, MCH 22.3 L, MCHC 30.1 L, RDW Std Deviation 58.0 H, RDW Coeff of Kristyn 22.1 H, Plt Count 592 H, MPV 9.3, Immature Gran % (Auto) 0.900, Neut % (Auto) 78.0 H, Lymph % (Auto) 11.6 L, [place] % (Auto) 7.8, Eos % (Auto) 0.9, Baso % (Auto) 0.8, A bsolute Neuts (auto) 10.2 H, Absolute Lymphs (auto) 1.53, Nucleated RBC % 0.5, Differential Comment SCANNED, Polychromasia 2+, Anisocytosis 3+, Microcytosis 1+, Target Cells 1+, Sodium 140, Potassium 4.4, Chloride 107, Carbon Dioxide 27.0, Anion Gap 6, BUN 22 H, Creatinine 1.06 H, Estim Creat Clear Calc 44.40, Est GFR (MDRD) Af Amer 64, Est GFR (MDRD) Non-Af 53 L, BUN/Creatinine Ratio 20.8 H, Glucose 214 H, Calcium 8.7, Phosphorus 2.0 L, Magnesium 2.5 06/16/24 11:00: POC Glucose 334 H Micro: Microbiology 06/14/24 20:40 Stool Stool Occult Blood (VENKAT) - Final 06/14/24 17:00 Mucosa - Nose SARS-CoV-2, Influenza & RSV (PCR) - Final Physical Exam Narrative GENERAL: cooperative HEENT: Atraumatic; normocephalic EYES; Anicteric, Normal Conjunctiva NECK; supple, normal thyroid, RESPIRATORY: Diminished to auscultation CARDIOVASCULAR: Regular S1 S2, GI: soft, normoactive bowel sounds, : No Renal angle tenderness; EXTREMITIES: No edema, no clubbing, MUSCULOSKELETAL: no muscle wasting NEURO: Awake; no lateralizing signs. SKIN: No Rash PSYCH; Flat affect Assessment & Plan Assessment/Plan (1) Fatigue: (2) Microcytic anemia: (3) Thrombocytosis: (4) Euthyroid sick syndrome: (5) Hyperglycemia: (6) Iron deficiency: PLAN: Plan Patient is an 78-year-old lady admitted with symptomatic anemia. Hemoglobin on presentation was 6.1 admitted to a monitored nursing floor for subsequent management for her symptomatic anemia ? Patient hemoglobin on admission was 6.1 admitted to a monitored bed was transfused with 2 unit PRBC with subsequent monitoring with H&H ordered. Patient was also given iron supplementation with consultation placed to GI -06/16/2024 patient underwent EGD the day prior findings as below Normal esophagus. Normal stomach. A single bleeding angiodysplastic lesion in the duodenum. Treated with a heater probe. A single non-bleeding angiodysplastic lesion in the duodenum. Treated with a heater probe. Duodenal lipoma. -Her hemoglobin today is 8 which is down from 8.9. She is not showing any signs of bleeding but she is very iron deficient. She would likely need IV iron with oral iron and likely colonoscopy as an outpatient. Charges/Coding Visit Charges Inpatient E&M: 62574 Subs Hosp L3
[2024-06-16 16:00] VITALS: BP 126/72; PULSE 96; RESP 16; TEMP 36.8; O2SAT 93
== END 2024-06-16 16:37 | disposition home health service (06) | DRG 377 ==
LOC: ED 21:48 → PCU 22:10
PROVIDERS: Internal Medicine Gastroenterology; Admitting Provider Internal Medicine; Emergency Provider Emergency Medicine; PCP Internal Medicine; Visit Provider Internal Medicine
PROC: 0DJ08ZZ Inspection of Upper Intestinal Tract, Via Natural or Artificial Opening Endoscopic (ICD-10-PCS; CPT 43235; principal; 2024-06-15 16:25)
DX: K31.811 Angiodysplasia of stomach and duodenum with bleeding (principal); I50.31 Acute diastolic (congestive) heart failure; D62 Acute posthemorrhagic anemia; E87.1 Hypo-osmolality and hyponatremia; I13.0 Hypertensive heart and chronic kidney disease with heart failure and stage 1 through stage 4 chronic kidney disease, or unspecified chronic kidney disease; E10.22 Type 1 diabetes mellitus with diabetic chronic kidney disease; D75.838 Other thrombocytosis; D17.5 Benign lipomatous neoplasm of intra-abdominal organs; E07.81 Sick-euthyroid syndrome; F03.A0 Unspecified dementia, mild, without behavioral disturbance, psychotic disturbance, mood disturbance, and anxiety; J44.9 Chronic obstructive pulmonary disease, unspecified; N18.32 Chronic kidney disease, stage 3b; I48.0 Paroxysmal atrial fibrillation; E78.5 Hyperlipidemia, unspecified; Z79.4 Long term (current) use of insulin; E10.65 Type 1 diabetes mellitus with hyperglycemia; R32 Unspecified urinary incontinence; Z79.01 Long term (current) use of anticoagulants; Z79.890 Hormone replacement therapy; Z79.899 Other long term (current) drug therapy; Z86.711 Personal history of pulmonary embolism; Z86.718 Personal history of other venous thrombosis and embolism; Z87.891 Personal history of nicotine dependence
CPT/HCPCS: 36415; 36600; 71045; 74176; 80048; 80053; 80076; 82274; 82728; 82803; 82962; 83540; 83550; 83735; 83880; 84100; 84439; 84443; 84481; 84484; 85014; 85018; 85025; 85045; 86850; 86900; 86901; 86920; 86922; 87631; 93005; 94002; 94668; 94760; 94762; 99285; J1756; J7040; J7050; J7120; P9016; A4216; J1940; J2916

== ENCOUNTER → 2024-06-14 | Outpatient (CLI) | payer MEDICARE, OTHER, SELFPAY ==
[2024-06-14 15:02] LABS: Absolute Lymphocyte Count 1.75 X10^3/uL (0.83-4.51); Absolute Neutrophil Count 7.1 X10^3/uL (2.0-7.7); Basophil# 0.11 X10^3/uL; Basophil% 1.1 % (0-1); Eosinophil# 0.23 X10^3/uL; Eosinophils% 2.2 % (0-5); Hematocrit 21.5 % (37-47); Lymphocyte # 1.75 X10^3/ul (0.83-4.51); Lymphocyte % 16.9 % (19-41); Mean Corp Hgb Conc 27.4 g/dL (32-36); Mean Corpuscular Hgb 19.2 pg (27.0-32.0); Mean Platelet Vol. 9.7 fl (6.2-12.0); Monocyte# 1.12 X10^3/uL; Monocyte% 10.8 % (0-10); NRBC Flagged by Analyzer 0.4 % (0-5); Neutrophil % 68.4 % (47-70); POSITIVE COUNT YES; RBC Distribution Width CV 18.6 % (11.6-14.6); RBC Distribution Width SD 46.5 fl (35.1-43.9); Red Blood Count 3.07 M/mm3 (4.2-5.4); White Blood Count 10.4 K/mm3 (4.4-11.0)
[2024-06-14 16:35] LABS: Differential Indicated SCAN CRITERIA MET; Hemoglobin 5.9 g/dL (12.0-15.0); Platelet Count 753 K/mm3 (150-450)
[2024-06-14 16:37] LABS: Anisocytosis 1+; Hypochromasia 1+; Microcytosis 1+; Ovalocyte RARE; Platelet Estimate MKD INC (ADEQ); Red Cell Morphology N CHROM NORMAL (NORM C&C)
[2024-06-15 12:10] LABS: Pathologist Review Reviewed
== END | disposition home or self-care (01) ==
LOC: LABSPEC 14:53
PROVIDERS: PCP Internal Medicine; Visit Provider Internal Medicine
DX: D64.9 Anemia, unspecified (principal)
CPT/HCPCS: 85025

== ENCOUNTER 2024-06-24 17:47 | Emergency (ER) | payer MEDICARE, OTHER, SELFPAY ==
[2024-06-24 17:52] VITALS: BP 141/65; PULSE 86; RESP 22; TEMP 36.4; O2SAT 98
[2024-06-24 18:42] LABS: Absolute Lymphocyte Count 1.44 X10^3/uL (0.83-4.51); Absolute Neutrophil Count 8.8 X10^3/uL (2.0-7.7); Basophil# 0.09 X10^3/uL; Basophil% 0.8 % (0-1); Eosinophil# 0.19 X10^3/uL; Eosinophils% 1.6 % (0-5); Hematocrit 33.8 % (37-47); Lymphocyte # 1.44 X10^3/ul (0.83-4.51); Lymphocyte % 12.3 % (19-41); Mean Corp Hgb Conc 29.6 g/dL (32-36); Mean Corpuscular Hgb 23.7 pg (27.0-32.0); Mean Corpuscular Volume 80.1 fL (81-99); Mean Platelet Vol. 9.8 fl (6.2-12.0); Monocyte# 1.07 X10^3/uL; Monocyte% 9.2 % (0-10); NRBC Flagged by Analyzer 0 % (0-5); Neutrophil # 8.84 X10^3/uL (2.7-7.7); Neutrophil % 75.7 % (47-70); POSITIVE MORPHOLOGY YES; Platelet Count 385 K/mm3 (150-450); RBC Distribution Width CV 27.1 % (11.6-14.6); RBC Distribution Width SD 76.8 fl (35.1-43.9); Red Blood Count 4.22 M/mm3 (4.2-5.4); White Blood Count 11.7 K/mm3 (4.4-11.0)
[2024-06-24 18:48] LABS: Differential Indicated SCAN CRITERIA MET
[2024-06-24 19:00] LABS: Anion Gap 5 (5-15); BUN 24 mg/dL (7-18); BUN/Creat Ratio 20.3 RATIO (10-20); Calcium,Total 8.8 mg/dL (8.5-10.1); Chloride 103 mmol/L (98-107); Creatinine, Serum 1.18 mg/dL (0.55-1.02); EST Glomerular Filtration Rate 47 mL/min (>60); Est Glom Filt Rate - Afr Amer 57 mL/min (>60); Glucose 139 mg/dL (74-106); Potassium 4.4 mmol/L (3.5-5.1); Sodium Level 136 mmol/L (136-145)
--- NOTE | 2024-06-24 19:02 | EX.ED.DYSGE1 ---
HPI History of Present Illness Chief Complaint: Weakness Detail of Chief Complaint: Generalized weakness with odor to urine x 2 days Informant: patient and spouse/S.O. Onset/Context/Timing Onset: Yesterday Context: Sudden Onset Timing: Continuous Quality: Generalized weakness and odor to urine. She is incontinent per and Location: Urologic Current Severity: Denies any symptoms other than weakness Maximum Severity: Denies any symptoms other than weakness Worsened by: Nothing Relieved by: Nothing Associated Symptoms Associated Symptoms: Generalized weakness Narrative Narrative: Patient is a 78-year-old who presents from home. She has history of incontinence. states she has been weak and has had odor to her urine for the past 2 days.She was seen June 14 admitted for GI bleed. She had a duodenal ulcer. She required blood transfusion. She denies fever, chills night sweats. Denies frequency, urgency or hematuria. She denies abdominal discomfort. She denies back pain or flank pain. She is not a good informant. 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 Memory loss HLD (hyperlipidemia) HTN (hypertension) Pulmonary embolism, bilateral Smoker COPD (chronic obstructive pulmonary disease) Home Medications ?Medication ?Instructions ?Recorded ?Last Taken ?Type amlodipine 5 mg-benazepril 10 mg 1 cap PO DAILY blood pressure 09/08/21 09/07/22 History capsule rivaroxaban 20 mg tablet (Xarelto) 20 mg PO DAILY blood thinner 04/23/22 09/08/22 History oxybutynin chloride 10 mg 10 mg PO DAILY bladder 09/08/22 09/07/22 History tablet,extended release 24 hr simvastatin 10 mg tablet 10 mg PO DAILY cholesterol 09/08/22 09/07/22 History cholecalciferol (vitamin D3) 50 4,000 unit PO .COMPLEX vitamin 06/29/23 01/11/24 History mcg (2,000 unit) tablet (D3 DOTS) insulin aspart U-100 100 unit/mL subcut DIABETES 06/29/23 Unknown History subcutaneous solution (Novolog U-100 Insulin aspart) magnesium 200 mg tablet 400 mg PO DAILY supplement 06/29/23 Unknown History levothyroxine 100 mcg tablet 100 mcg PO .qd, 1 1/2 every 01/11/24 06/15/24 History hypothyroid furosemide 20 mg tablet (Lasix) 20 mg PO DAILY #30 tabs 06/16/24 Unknown Rx insulin degludec 100 unit/mL 20 unit (0.2 mL) subcut QHS #10 mL 06/16/24 Unknown Rx subcutaneous solution (Tresiba U-100 Insulin) iron, carbonyl 45 mg tablet 45 mg PO DAILY #30 tabs 06/16/24 Unknown Rx pantoprazole 40 mg tablet,delayed 40 mg PO DAILY #30 tabs 06/16/24 Unknown Rx release (Protonix) nitrofurantoin 100 mg PO Q12 #14 CAPSULES 06/24/24 Unknown Rx monohydrate/macrocrystals 100 mg capsule Allergy/AdvReac Type Severity Reaction Status Date / Time ciprofloxacin (From Cipro) Allergy Intermediate hives Verified 06/24/24 17:54 Sulfa (Sulfonamide Allergy Intermediate hives Verified 06/24/24 17:54 Antibiotics) Penicillins Allergy Rash Verified 06/24/24 17:54 Family History Father Diabetes Respiratory disease Mother No problems noted. 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 alcohol intake: current alcohol intake frequency: a few times a month substance use type: does not use ROS ROS ED Constitutional Constitutional ED: Denies chills, fever(s), subjective or sweats Eyes Eyes: Denies blurry vision or change in vision ENT ENT ED: Denies ear pain, rhinorrhea or sore throat Cardiovascular Cardiovascular: Denies chest pain or palpitations Respiratory/Chest Respiratory/Chest: Denies cough, dyspnea or dyspnea on exertion Gastrointestinal Gastrointestinal: Denies abdominal pain, nausea or vomiting Genitourinary Genitourinary ED: Reports other Details: Patient is incontinent. reports odor to her urine. ; Denies dysuria, hematuria or urinary frequency Musculoskeletal Musculoskeletal: Denies arthralgias, back pain or myalgias Integumentary Denies rash Neurologic Neurologic: Reports weakness Psychiatric Psychiatric: Denies anxiety or depression Endocrine Endocrinology: Denies cold intolerance or heat intolerance EXAM Physical Exam Const Vital Signs: 06/24/24 17:52 06/24/24 18:07 06/24/24 19:48 Temperature 97.5 F L Temperature Source Temporal Pulse Rate 86 101 H Respiratory Rate 22 H 27 H Respiratory Effort Normal Non-Labored Respiratory Pattern Normal Blood Pressure 141/65 H 141/62 H Blood Pressure Mean 90 88 Pulse Ox 98 95 Oxygen Delivery Method Nasal Cannula Room Air Oxygen Flow Rate (L/min) 2 Positive well nourished and well developed Constitutional Narrative: Patient appears ill but not toxic. General Appearance ED: well developed, NAD and pallor HEENT Reports dry mucous membranes HEENT Narrative: Ears normal. Nares patent. There is no drainage. Posterior pharynx is normal. Negative for trauma or tenderness Mouth ED: Yes dry mucous membranes Mouth: dry mucous membranes Eyes PERRL and EOMs intact bilaterally General Eye ED: Negative for pale conjunctiva or scleral icterus Neck no lymphadenopathy and supple Resp normal respiratory effort and clear to auscultation bilaterally Cardio regular rate, regular rhythm, S1 normal heart sound, S2 normal heart sound and no murmurs GI normal to inspection, nondistended, normoactive bowel sounds, non-distended and no masses; Negative for non-tender or hepatosplenomegaly Auscultation: hypoactive bowel sounds Palpation: soft and tender suprapubic Back/Spine no CVA tenderness Extremity General Extremety ED: Negative for edema or tenderness General Extremity: Negative for edema Neuro oriented x3 and CN's II-XII intact bilaterally Sensorium / Orientation: Negative for alert Psych mental status grossly normal Skin no rashes or lesions noted and no wounds General Skin Exam: pallor; Negative for elasticity normal or jaundice MDM MDM MDM Narrative Medical decision making narrative: alert. With history of incontinence prior urinary tract infections will have nurse straight cath for UA and will obtain CBC and electrolyte panel to assess white count differential renal function electrolytes. History & Record Review Additional record(s) reviewed:: Prior ED visit and Prior labs Lab Data Attestation: I reviewed the patient's lab results. Lab results narrative: White count is slightly elevated. H&H is decreased at 10 and 33.8. MCV is slightly decreased at 80.1. Renal function was elevated BUN/creatinine 24 1.18 which is patient's baseline. Urine is consistent with infection. Labs: Laboratory Results - last 24 hr 06/24/24 06/24/24 18:35 19:04 WBC 11.7 H RBC 4.22 Hgb 10.0 L Hct 33.8 L MCV 80.1 L MCH 23.7 L MCHC 29.6 L RDW Std Deviation 76.8 H RDW Coeff of Kristyn 27.1 H Plt Count 385 MPV 9.8 Immature Gran % (Auto) 0.400 Neut % (Auto) 75.7 H Lymph % (Auto) 12.3 L [place] % (Auto) 9.2 Eos % (Auto) 1.6 Baso % (Auto) 0.8 Absolute Neuts (auto) 8.8 H Absolute Lymphs (auto) 1.44 Nucleated RBC % 0 Differential Comment SCANNED Hypochromasia 2+ Anisocytosis 2+ Target Cells RARE Sodium 136 Potassium 4.4 Chloride 103 Carbon Dioxide 28.0 Anion Gap 5 BUN 24 H Creatinine 1.18 H Est GFR (MDRD) Af Amer 57 L Est GFR (MDRD) Non-Af 47 L BUN/Creatinine Ratio 20.3 H Glucose 139 H Calcium 8.8 Urine Color Yellow Urine Clarity Sl. Cloudy Urine pH 5.0 Ur Specific [place] 1.010 Urine Protein 15 H Urine Glucose (UA) Normal Urine Ketones Negative Urine Occult Blood 10 H Urine Nitrite Positive H Urine Bilirubin Negative Urine Urobilinogen Normal Ur Leukocyte Esterase 25 H Urine RBC 0-5 SEEN Urine WBC 10-25 SEEN Ur Squamous Epith Cells 0-5 SEEN Urine Bacteria 3+ Hyaline Casts 0-5 SEEN Urine Mucus 0 SEEN Treatment and Re-Evaluation :: Because local pharmacies are closed in the area will treat with IV Rocephin and based on allergies will write prescription for Macrobid. In my opinion patient does not meet criteria for inpatient therapy. She does not have severe sepsis or septic shock. 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, Diabetes mellitus type 1, Fatigue, Iron deficiency, Renal insufficiency Instructions: Urinary Tract Infections in Women Prescriptions: New nitrofurantoin monohyd/m-cryst 100 mg capsule 100 mg PO Q12 Qty: 14 0RF No Action amlodipine-benazepril 5-10 mg capsule 1 cap PO DAILY Xarelto 20 mg tablet 20 mg PO DAILY oxybutynin chloride 10 mg tablet extended release 24hr 10 mg PO DAILY Patient Comments: take 1 tablet by mouth once daily simvastatin 10 mg tablet 10 mg PO DAILY magnesium 200 mg tablet 400 mg PO DAILY cholecalciferol (vitamin D3) [D3 DOTS] 50 mcg (2,000 unit) tablet 4,000 unit PO .COMPLEX Rx Instructions: 4,000 units orally every other day; insulin aspart U-100 [Novolog U-100 Insulin aspart] 100 unit/mL solution subcut Patient Comments: use as directed ACCORDING TO SLIDING SCALE - MAX OF 100 UNITS PER DAY HAS IT WRITTEN DOWN WILL NEED TO GET BOYFRIEND TO BRING IT IN iron, carbonyl 45 mg tablet 45 mg PO DAILY Qty: 30 0RF pantoprazole [Protonix] 40 mg tablet,delayed release (DR/EC) 40 mg PO DAILY Qty: 30 0RF insulin degludec [Tresiba U-100 Insulin] 100 unit/mL solution 20 unit subcut QHS Qty: 10 0RF furosemide [Lasix] 20 mg tablet 20 mg PO DAILY Qty: 30 0RF levothyroxine 100 mcg tablet 100 mcg PO .qd, 1 1/2 every Rx Instructions: @0200 Primary Care Provider: Shena Jeffers Referrals: Shena Jeffers DO [Primary Care Provider] - 3-5 Days if not improving Print Language: [place] Disposition Disposition: Home, Self Care
[2024-06-24 19:08] LABS: Mucous, Urine 0 SEEN /hpf (<or=2+)
[2024-06-24 19:15] LABS: Color, Urine Yellow (Yellow); Glucose, Dipstick Normal (Normal); Ketone-Dipstick Negative (Negative); Leukocyte Esterase-Dipstick 25 /ul (Negative); Nitrite-Dipstick Positive (Negative); Occult Blood-Urine 10 /ul (Negative); Protein-Dipstick 15 mg/dl (Negative); Urine Bilirubin Dipstick Negative (Negative); Urine Clarity Sl. Cloudy (Clear); Urine Urobilinogen Normal (Normal)
[2024-06-24 19:26] LABS: Hyaline Cast 0-5 SEEN /lpf (0-5); Red Blood Cells-Urine 0-5 SEEN /hpf (0-5); Squamous Epithelial Cells - UA 0-5 SEEN /hpf (5-10); White Blood Cells 10-25 SEEN /hpf (0-5)
[2024-06-24 19:27] LABS: Bacteria 3+ /hpf (None Seen)
[2024-06-24 19:48] VITALS: BP 141/62; PULSE 101; RESP 27; O2SAT 95
[2024-06-24 19:49] LABS: Differential Comment SCANNED
[2024-06-24 19:50] LABS: Anisocytosis 2+; Hypochromasia 2+; Target Cells RARE
[2024-06-24] MEDS: Ceftriaxone 1 GM/50 ML BAG IV (20:57)
[2024-06-24 21:00] VITALS: BP 144/53; PULSE 112; RESP 17; O2SAT 91
[2024-06-24 22:23] VITALS: BP 125/59; PULSE 107; RESP 20; TEMP 37.1; O2SAT 92
== END 2024-06-24 22:24 | disposition home or self-care (01) ==
PROVIDERS: Emergency Provider Emergency Medicine; PCP Internal Medicine; Visit Provider Emergency Medicine
DX: N39.0 Urinary tract infection, site not specified (principal); J44.9 Chronic obstructive pulmonary disease, unspecified; E10.9 Type 1 diabetes mellitus without complications; E06.3 Autoimmune thyroiditis; E61.1 Iron deficiency; N28.9 Disorder of kidney and ureter, unspecified; Z87.891 Personal history of nicotine dependence; Z86.718 Personal history of other venous thrombosis and embolism; Z86.711 Personal history of pulmonary embolism
CPT/HCPCS: 80048; 81001; 85025; 87086; 87088; 87186; 96365; 96366; 99284; J7050; P9612

== ENCOUNTER 2024-06-29 13:21 | Inpatient (IN) | payer MEDICARE, OTHER, SELFPAY ==
[2024-06-29] VITALS (7 sets, daily range): BP systolic 143–158; BP diastolic 63–89; PULSE 82–100; RESP 14–18; TEMP 36–37; O2SAT 90–96; BMI 28.6
--- NOTE | 2024-06-29 15:58 | EKG12_ITS ---
Test Reason : WEAKNESS Blood Pressure : / mmHG Vent. Rate : 098 BPM Atrial Rate : 098 BPM P-R Int : 128 ms QRS Dur : 090 ms QT Int : 350 ms P-R-T Axes : 074 067 059 degrees QTc Int : 446 ms Normal sinus rhythm Normal ECG Confirmed by ANDREW MCKEON, HUGO ([id number]), news copy editor RAYMUNDO CANTU ([id number]) on 07/02/2024 6:48:00 AM Referred By: Confirmed By:HUGO MORALES MD
--- NOTE | 2024-06-29 15:59 | EX.ED.DYSGE1 ---
HPI History of Present Illness Chief Complaint: Weakness Narrative Narrative: 78-year-old female presents with her significant other because of generalized weakness diagnosis of recent UTI. They relate history that she was seen in the emergency department 3 days ago. She had generalized weakness and was unable to get up and walk independently. Her boyfriend states that she was given IV fluids, and diagnosed with a urinary tract infection, and put on nitrofurantoin. She was able to ambulate after half an hour in the emergency department. However, since then starting last evening she has had increased difficulty with ambulation and needed assistance getting off the commode. She was subjectively hot last night, but her boyfriend states he could not get the thermometers to work. He thought she was little more confused as well. She does wear oxygen at home, 2 L of nasal cannula oxygen. 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 Memory loss HLD (hyperlipidemia) HTN (hypertension) Pulmonary embolism, bilateral Smoker COPD (chronic obstructive pulmonary disease) Home Medications ?Medication ?Instructions ?Recorded ?Last Taken ?Type amlodipine 5 mg-benazepril 10 mg 1 cap PO DAILY blood pressure 09/08/21 09/07/22 History capsule rivaroxaban 20 mg tablet (Xarelto) 20 mg PO DAILY blood thinner 04/23/22 09/08/22 History oxybutynin chloride 10 mg 10 mg PO DAILY bladder 09/08/22 09/07/22 History tablet,extended release 24 hr simvastatin 10 mg tablet 10 mg PO DAILY cholesterol 09/08/22 09/07/22 History cholecalciferol (vitamin D3) 50 4,000 unit PO .COMPLEX vitamin 06/29/23 01/11/24 History mcg (2,000 unit) tablet (D3 DOTS) insulin aspart U-100 100 unit/mL subcut DIABETES 06/29/23 Unknown History subcutaneous solution (Novolog U-100 Insulin aspart) magnesium 200 mg tablet 400 mg PO DAILY supplement 06/29/23 Unknown History levothyroxine 100 mcg tablet 100 mcg PO .qd, 1 1/2 every 01/11/24 06/15/24 History hypothyroid iron, carbonyl 45 mg tablet 45 mg PO DAILY #30 tabs 06/16/24 Unknown Rx insulin degludec 100 unit/mL 10 unit subcut QHS 06/29/24 Unknown History subcutaneous solution (Tresiba U-100 Insulin) tiotropium bromide 2.5 2 inh inhalation DAILY 06/29/24 Unknown History mcg/actuation mist for inhalation (Spiriva Respimat) Allergy/AdvReac Type Severity Reaction Status Date / Time ciprofloxacin (From Cipro) Allergy Intermediate hives Verified 06/29/24 13:46 Sulfa (Sulfonamide Allergy Intermediate hives Verified 06/29/24 13:46 Antibiotics) Penicillins Allergy Rash Verified 06/29/24 13:46 Family History Father Diabetes Respiratory disease Mother No problems noted. 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 alcohol intake: current alcohol intake frequency: a few times a month substance use type: does not use ROS ROS ED ROS Narrative Constitutional: Subjective fever, no chills. Generalized weakness. HEENT: No sore throat. No neck pain. No loss of vision. No rhinorrhea. Cardiovascular: No chest pain. No palpitations. No pedal edema. Respiratory: No cough, no shortness of breath. Abdominal: No abdominal pain. No nausea. No vomiting. Genitourinary: Positive dysuria with diagnosis of recent UTI. No hematuria. Musculoskeletal: No myalgias. No arthralgias. Neurologic: No headaches. No dizziness. No lightheadedness. Mild confusion. Skin: No rash. No change in color. Psychiatric: No depression. No anxiety. EXAM Physical Exam Narrative Exam Narrative: Afebrile. Vital signs noted. Nontoxic-appearing. HEENT: Normocephalic. Atraumatic. PERRL, EOMI. Neck soft and supple. No point tenderness or step off. Cardiovascular: Regular rate and rhythm. No murmurs, rubs, or gallops appreciated. Respiratory: No tachypnea. Lungs clear to auscultation bilaterally. Gastrointestinal: Abdomen soft, nontender, with normoactive bowel sounds. No rebound or guarding. Neurological: Awake. Alert. Nonfocal, nonlateralizing. Skin: No rash. Normal color. No pallor. Musculoskeletal: No pedal edema. Full range of motion extremities. Const Vital Signs: 06/29/24 13:46 06/29/24 16:00 06/29/24 16:00 Temperature 96.8 F L Temperature Source Temporal Pulse Rate 97 100 Respiratory Rate 14 16 Respiratory Effort Normal Respiratory Pattern Normal Blood Pressure 143/68 H 148/74 H Blood Pressure Mean 93 98 Pulse Ox 93 96 Oxygen Delivery Method Nasal Cannula Nasal Cannula Oxygen Flow Rate (L/min) 2 2 06/29/24 18:00 Temperature Temperature Source Pulse Rate 87 Respiratory Rate 16 Respiratory Effort Respiratory Pattern Blood Pressure 158/70 H Blood Pressure Mean 99 Pulse Ox 96 Oxygen Delivery Method Room Air Oxygen Flow Rate (L/min) MDM MDM MDM Narrative Medical decision making narrative: Differential diagnosis includes UTI that is worsening versus pneumonia versus dehydration versus other electrolyte imbalance as a cause of her generalized weakness. In discussion with her significant other, they state that they are working with Dr. Hilario to get her placed into rehab but were told to come to the emergency department. Laboratories will be obtained and reviewed, but plan will be for at least observation for admission to rehab as she is having difficulty ambulating and experiencing generalized weakness. I reviewed her laboratory work, and she has normal white count of 6.9 with hemoglobin stable at 10.2. Platelet count normal at 397. Electrolyte panel significant for hyponatremia of 133. Creatinine 1.0. High-sensitivity troponin 35. EKG was obtained and interpreted by myself independently as normal sinus rhythm at 98 bpm with baseline artifact, no acute ST changes. No STEMI. Urinalysis was obtained and reviewed and is negative for infection. 0 WBCs on examination. Chest x-ray 1 view interpreted by myself independently shows no evidence of pneumonia or pneumothorax. I reviewed the radiology report which confirms my independent interpretation. Her significant other is having problems taking care of her at home. I will discuss the patient with the hospitalist for observation. I discussed patient with Dr. Roxanne Saxena the hospitalist who is reviewed the urine cultures from the other day and she did have urinary tract infection. Patient will be admitted to the general medical floor in stable condition. History & Record Review Discussion w/independent historian: Patient and Significant other Lab Data Attestation: I reviewed the patient's lab results. Labs: Laboratory Results - last 24 hr 06/29/24 06/29/24 06/29/24 16:10 16:10 16:10 WBC 6.9 Cancelled Corrected WBC Cancelled RBC 4.46 Cancelled Hgb 10.2 L Hct MCV MCH MCHC RDW Std Deviation RDW Coeff of Kristyn Plt Count MPV Immature Gran % (Auto) Neut % (Auto) Lymph % (Auto) [place] % (Auto) Eos % (Auto) Baso % (Auto) Absolute Neuts (auto) Absolute Lymphs (auto) Total Counted Neutrophils % (Manual) Band Neutrophils % Lymphocytes % (Manual) Monocytes % (Manual) Eosinophils % (Manual) Basophils % (Manual) Metamyelocytes % Myelocytes % Promyelocytes % Blast Cells % Plasma Cell % (Manual) Other Cells % Nucleated RBC % Nucleated RBCs/100 WBC Differential Comment Diff Path Review Hypersegmented Neuts Atypical Lymphocytes Reactive Lymphocytes Smudge Cells Toxic Granulation Toxic Vacuolation Dohle Bodies Jaye Rods Platelet Estimate Plt Morphology Comment RBC Morphology Polychromasia Hypochromasia Basophilic Stippling Anisocytosis Microcytosis Macrocytosis Spherocytes Sickle Cells Target Cells Tear Drop Cells Ovalocytes Stomatocytes [place] Bodies [place] Cells Bite Cells Crenated Cell Acanthocytes (Spur) Rouleaux Schistocytes Sodium Potassium Chloride Carbon Dioxide Anion Gap BUN Creatinine Est GFR (MDRD) Af Amer Est GFR (MDRD) Non-Af BUN/Creatinine Ratio Glucose Calcium Total Bilirubin AST ALT Alkaline Phosphatase Troponin I High Sens Total Protein Albumin Globulin Albumin/Globulin Ratio Urine Color Urine Clarity Urine pH Ur Specific [place] Urine Protein Urine Glucose (UA) Urine Ketones Urine Occult Blood Urine Nitrite Urine Bilirubin Urine Urobilinogen Ur Leukocyte Esterase Urine RBC Urine WBC Ur Squamous Epith Cells Urine Bacteria Hyaline Casts Urine Mucus 06/29/24 06/29/24 06/29/24 16:10 16:10 16:10 WBC Corrected WBC RBC Hgb Cancelled Hct 35.6 L Cancelled MCV 79.8 L Cancelled MCH 22.9 L MCHC RDW Std Deviation RDW Coeff of Kristyn Plt Count MPV Immature Gran % (Auto) Neut % (Auto) Lymph % (Auto) [place] % (Auto) Eos % (Auto) Baso % (Auto) Absolute Neuts (auto) Absolute Lymphs (auto) Total Counted Neutrophils % (Manual) Band Neutrophils % Lymphocytes % (Manual) Monocytes % (Manual) Eosinophils % (Manual) Basophils % (Manual) Metamyelocytes % Myelocytes % Promyelocytes % Blast Cells % Plasma Cell % (Manual) Other Cells % Nucleated RBC % Nucleated RBCs/100 WBC Differential Comment Diff Path Review Hypersegmented Neuts Atypical Lymphocytes Reactive Lymphocytes Smudge Cells Toxic Granulation Toxic Vacuolation Dohle Bodies Jaye Rods Platelet Estimate Plt Morphology Comment RBC Morphology Polychromasia Hypochromasia Basophilic Stippling Anisocytosis Microcytosis Macrocytosis Spherocytes Sickle Cells Target Cells Tear Drop Cells Ovalocytes Stomatocytes [place] Bodies Isaura Cells Bite Cells Crenated Cell Acanthocytes (Spur) Rouleaux Schistocytes Sodium Potassium Chloride Carbon Dioxide Anion Gap BUN Creatinine Est GFR (MDRD) Af Amer Est GFR (MDRD) Non-Af BUN/Creatinine Ratio Glucose Calcium Total Bilirubin AST ALT Alkaline Phosphatase Troponin I High Sens Total Protein Albumin Globulin Albumin/Globulin Ratio Urine Color Urine Clarity Urine pH Ur Specific [place] Urine Protein Urine Glucose (UA) Urine Ketones Urine Occult Blood Urine Nitrite Urine Bilirubin Urine Urobilinogen Ur Leukocyte Esterase Urine RBC Urine WBC Ur Squamous Epith Cells Urine Bacteria Hyaline Casts Urine Mucus 06/29/24 06/29/24 06/29/24 16:10 16:10 16:10 WBC Corrected WBC RBC Hgb Hct MCV MCH Cancelled MCHC 28.7 L Cancelled RDW Std Deviation 75.0 H Cancelled RDW Coeff of Kristyn 27.1 H Plt Count MPV Immature Gran % (Auto) Neut % (Auto) Lymph % (Auto) [place] % (Auto) Eos % (Auto) Baso % (Auto) Absolute Neuts (auto) Absolute Lymphs (auto) Total Counted Neutrophils % (Manual) Band Neutrophils % Lymphocytes % (Manual) Monocytes % (Manual) Eosinophils % (Manual) Basophils % (Manual) Metamyelocytes % Myelocytes % Promyelocytes % Blast Cells % Plasma Cell % (Manual) Other Cells % Nucleated RBC % Nucleated RBCs/100 WBC Differential Comment Diff Path Review Hypersegmented Neuts Atypical Lymphocytes Reactive Lymphocytes Smudge Cells Toxic Granulation Toxic Vacuolation Dohle Bodies Jaye Rods Platelet Estimate Plt Morphology Comment RBC Morphology Polychromasia Hypochromasia Basophilic Stippling Anisocytosis Microcytosis Macrocytosis Spherocytes Sickle Cells Target Cells Tear Drop Cells Ovalocytes Stomatocytes [place] Bodies Isaura Cells Bite Cells Crenated Cell Acanthocytes (Spur) Rouleaux Schistocytes Sodium Potassium Chloride Carbon Dioxide Anion Gap BUN Creatinine Est GFR (MDRD) Af Amer Est GFR (MDRD) Non-Af BUN/Creatinine Ratio Glucose Calcium Total Bilirubin AST ALT Alkaline Phosphatase Troponin I High Sens Total Protein Albumin Globulin Albumin/Globulin Ratio Urine Color Urine Clarity Urine pH Ur Specific [place] Urine Protein Urine Glucose (UA) Urine Ketones Urine Occult Blood Urine Nitrite Urine Bilirubin Urine Urobilinogen Ur Leukocyte Esterase Urine RBC Urine WBC Ur Squamous Epith Cells Urine Bacteria Hyaline Casts Urine Mucus 06/29/24 06/29/24 06/29/24 16:10 16:10 16:10 WBC Corrected WBC RBC Hgb Hct MCV MCH MCHC RDW Std Deviation RDW Coeff of Kristyn Cancelled Plt Count 397 Cancelled MPV 10.2 Cancelled Immature Gran % (Auto) 0.700 Neut % (Auto) Lymph % (Auto) [place] % (Auto) Eos % (Auto) Baso % (Auto) Absolute Neuts (auto) Absolute Lymphs (auto) Total Counted Neutrophils % (Manual) Band Neutrophils % Lymphocytes % (Manual) Monocytes % (Manual) Eosinophils % (Manual) Basophils % (Manual) Metamyelocytes % Myelocytes % Promyelocytes % Blast Cells % Plasma Cell % (Manual) Other Cells % Nucleated RBC % Nucleated RBCs/100 WBC Differential Comment Diff Path Review Hypersegmented Neuts Atypical Lymphocytes Reactive Lymphocytes Smudge Cells Toxic Granulation Toxic Vacuolation Dohle Bodies Jaye Rods Platelet Estimate Plt Morphology Comment RBC Morphology Polychromasia Hypochromasia Basophilic Stippling Anisocytosis Microcytosis Macrocytosis Spherocytes Sickle Cells Target Cells Tear Drop Cells Ovalocytes Stomatocytes [place] Bodies Isaura Cells Bite Cells Crenated Cell Acanthocytes (Spur) Rouleaux Schistocytes Sodium Potassium Chloride Carbon Dioxide Anion Gap BUN Creatinine Est GFR (MDRD) Af Amer Est GFR (MDRD) Non-Af BUN/Creatinine Ratio Glucose Calcium Total Bilirubin AST ALT Alkaline Phosphatase Troponin I High Sens Total Protein Albumin Globulin Albumin/Globulin Ratio Urine Color Urine Clarity Urine pH Ur Specific [place] Urine Protein Urine Glucose (UA) Urine Ketones Urine Occult Blood Urine Nitrite Urine Bilirubin Urine Urobilinogen Ur Leukocyte Esterase Urine RBC Urine WBC Ur Squamous Epith Cells Urine Bacteria Hyaline Casts Urine Mucus 06/29/24 06/29/24 06/29/24 16:10 16:10 16:10 WBC Corrected WBC RBC Hgb Hct MCV MCH MCHC RDW Std Deviation RDW Coeff of Kristyn Plt Count MPV Immature Gran % (Auto) Cancelled Neut % (Auto) 59.5 Cancelled Lymph % (Auto) 18.9 L Cancelled [place] % (Auto) 19.6 H Eos % (Auto) Baso % (Auto) Absolute Neuts (auto) Absolute Lymphs (auto) Total Counted Neutrophils % (Manual) Band Neutrophils % Lymphocytes % (Manual) Monocytes % (Manual) Eosinophils % (Manual) Basophils % (Manual) Metamyelocytes % Myelocytes % Promyelocytes % Blast Cells % Plasma Cell % (Manual) Other Cells % Nucleated RBC % Nucleated RBCs/100 WBC Differential Comment Diff Path Review Hypersegmented Neuts Atypical Lymphocytes Reactive Lymphocytes Smudge Cells Toxic Granulation Toxic Vacuolation Dohle Bodies Jaye Rods Platelet Estimate Plt Morphology Comment RBC Morphology Polychromasia Hypochromasia Basophilic Stippling Anisocytosis Microcytosis Macrocytosis Spherocytes Sickle Cells Target Cells Tear Drop Cells Ovalocytes Stomatocytes [place] Bodies [place] Cells Bite Cells Crenated Cell Acanthocytes (Spur) Rouleaux Schistocytes Sodium Potassium Chloride Carbon Dioxide Anion Gap BUN Creatinine Est GFR (MDRD) Af Amer Est GFR (MDRD) Non-Af BUN/Creatinine Ratio Glucose Calcium Total Bilirubin AST ALT Alkaline Phosphatase Troponin I High Sens Total Protein Albumin Globulin Albumin/Globulin Ratio Urine Color Urine Clarity Urine pH Ur Specific [place] Urine Protein Urine Glucose (UA) Urine Ketones Urine Occult Blood Urine Nitrite Urine Bilirubin Urine Urobilinogen Ur Leukocyte Esterase Urine RBC Urine WBC Ur Squamous Epith Cells Urine Bacteria Hyaline Casts Urine Mucus 06/29/24 06/29/24 06/29/24 16:10 16:10 16:10 WBC Corrected WBC RBC Hgb Hct MCV MCH MCHC RDW Std Deviation RDW Coeff of Kristyn Plt Count MPV Immature Gran % (Auto) Neut % (Auto) Lymph % (Auto) [place] % (Auto) Cancelled Eos % (Auto) 0.1 Cancelled Baso % (Auto) 1.2 H Cancelled Absolute Neuts (auto) 4.1 Absolute Lymphs (auto) Total Counted Neutrophils % (Manual) Band Neutrophils % Lymphocytes % (Manual) Monocytes % (Manual) Eosinophils % (Manual) Basophils % (Manual) Metamyelocytes % Myelocytes % Promyelocytes % Blast Cells % Plasma Cell % (Manual) Other Cells % Nucleated RBC % Nucleated RBCs/100 WBC Differential Comment Diff Path Review Hypersegmented Neuts Atypical Lymphocytes Reactive Lymphocytes Smudge Cells Toxic Granulation Toxic Vacuolation Dohle Bodies Jaye Rods Platelet Estimate Plt Morphology Comment RBC Morphology Polychromasia Hypochromasia Basophilic Stippling Anisocytosis Microcytosis Macrocytosis Spherocytes Sickle Cells Target Cells Tear Drop Cells Ovalocytes Stomatocytes [place] Bodies [place] Cells Bite Cells Crenated Cell Acanthocytes (Spur) Rouleaux Schistocytes Sodium Potassium Chloride Carbon Dioxide Anion Gap BUN Creatinine Est GFR (MDRD) Af Amer Est GFR (MDRD) Non-Af BUN/Creatinine Ratio Glucose Calcium Total Bilirubin AST ALT Alkaline Phosphatase Troponin I High Sens Total Protein Albumin Globulin Albumin/Globulin Ratio Urine Color Urine Clarity Urine pH Ur Specific [place] Urine Protein Urine Glucose (UA) Urine Ketones Urine Occult Blood Urine Nitrite Urine Bilirubin Urine Urobilinogen Ur Leukocyte Esterase Urine RBC Urine WBC Ur Squamous Epith Cells Urine Bacteria Hyaline Casts Urine Mucus 06/29/24 06/29/24 06/29/24 16:10 16:10 16:10 WBC Corrected WBC RBC Hgb Hct MCV MCH MCHC RDW Std Deviation RDW Coeff of Kristyn Plt Count MPV Immature Gran % (Auto) Neut % (Auto) Lymph % (Auto) [place] % (Auto) Eos % (Auto) Baso % (Auto) Absolute Neuts (auto) Cancelled Absolute Lymphs (auto) 1.31 Cancelled Total Counted Cancelled Neutrophils % (Manual) Cancelled Band Neutrophils % Cancelled Lymphocytes % (Manual) Cancelled Monocytes % (Manual) Cancelled Eosinophils % (Manual) Cancelled Basophils % (Manual) Cancelled Metamyelocytes % Cancelled Myelocytes % Cancelled Promyelocytes % Cancelled Blast Cells % Cancelled Plasma Cell % (Manual) Cancelled Other Cells % Cancelled Nucleated RBC % 0 Cancelled Nucleated RBCs/100 WBC Cancelled Differential Comment Cancelled Diff Path Review Cancelled Hypersegmented Neuts Cancelled Atypical Lymphocytes Cancelled Reactive Lymphocytes Cancelled Smudge Cells Cancelled Toxic Granulation Cancelled Toxic Vacuolation Cancelled Dohle Bodies Cancelled Jaye Rods Cancelled Platelet Estimate Cancelled Plt Morphology Comment Cancelled RBC Morphology Cancelled Polychromasia Hypochromasia Basophilic Stippling Anisocytosis Microcytosis Macrocytosis Spherocytes Sickle Cells Target Cells Tear Drop Cells Ovalocytes Stomatocytes [place] Bodies [place] Cells Bite Cells Crenated Cell Acanthocytes (Spur) Rouleaux Schistocytes Sodium Potassium Chloride Carbon Dioxide Anion Gap BUN Creatinine Est GFR (MDRD) Af Amer Est GFR (MDRD) Non-Af BUN/Creatinine Ratio Glucose Calcium Total Bilirubin AST ALT Alkaline Phosphatase Troponin I High Sens Total Protein Albumin Globulin Albumin/Globulin Ratio Urine Color Urine Clarity Urine pH Ur Specific [place] Urine Protein Urine Glucose (UA) Urine Ketones Urine Occult Blood Urine Nitrite Urine Bilirubin Urine Urobilinogen Ur Leukocyte Esterase Urine RBC Urine WBC Ur Squamous Epith Cells Urine Bacteria Hyaline Casts Urine Mucus 06/29/24 06/29/24 16:10 17:38 WBC Corrected WBC RBC Hgb Hct MCV MCH MCHC RDW Std Deviation RDW Coeff of Kristyn Plt Count MPV Immature Gran % (Auto) Neut % (Auto) Lymph % (Auto) [place] % (Auto) Eos % (Auto) Baso % (Auto) Absolute Neuts (auto) Absolute Lymphs (auto) Total Counted Neutrophils % (Manual) Band Neutrophils % Lymphocytes % (Manual) Monocytes % (Manual) Eosinophils % (Manual) Basophils % (Manual) Metamyelocytes % Myelocytes % Promyelocytes % Blast Cells % Plasma Cell % (Manual) Other Cells % Nucleated RBC % Nucleated RBCs/100 WBC Differential Comment Diff Path Review Hypersegmented Neuts Atypical Lymphocytes Reactive Lymphocytes Smudge Cells Toxic Granulation Toxic Vacuolation Dohle Bodies Jaye Rods Platelet Estimate Plt Morphology Comment RBC Morphology Cancelled Polychromasia Cancelled Hypochromasia Cancelled Basophilic Stippling Cancelled Anisocytosis Cancelled Microcytosis Cancelled Macrocytosis Cancelled Spherocytes Cancelled Sickle Cells Cancelled Target Cells Cancelled Tear Drop Cells Cancelled Ovalocytes Cancelled Stomatocytes Cancelled [place] Bodies Cancelled [place]aura Cells Cancelled Bite Cells Cancelled Crenated Cell Cancelled Acanthocytes ([place]) Cancelled Rouleaux Cancelled Schistocytes Cancelled Sodium 133 L Potassium 4.3 Chloride 98 Carbon Dioxide 28.0 Anion Gap 7 BUN 18 Creatinine 1.06 H Est GFR (MDRD) Af Amer 64 Est GFR (MDRD) Non-Af 53 L BUN/Creatinine Ratio 17.0 Glucose 269 H Calcium 8.9 Total Bilirubin 0.30 AST 23 ALT 19 Alkaline Phosphatase 87 Troponin I High Sens 35 Total Protein 7.4 Albumin 2.8 L Globulin 4.6 H Albumin/Globulin Ratio 0.6 L Urine Color Yellow Urine Clarity Clear Urine pH 6.0 Ur Specific [place] 1.015 Urine Protein 15 H Urine Glucose (UA) 250 H Urine Ketones 15 H Urine Occult Blood 10 H Urine Nitrite Negative Urine Bilirubin Negative Urine Urobilinogen Normal Ur Leukocyte Esterase Negative Urine RBC 0-5 SEEN Urine WBC 0 SEEN Ur Squamous Epith Cells 0-5 SEEN Urine Bacteria 0 SEEN Hyaline Casts 0-5 SEEN Urine Mucus 0 SEEN Radiography Diagnostic Testing: Clinical Impression(s) from Imaging Studies Chest X-Ray 06/29/24 16:15 IMPRESSION: No acute radiographic abnormalities. Electronically Signed: Ar Groves MD at 16:59 EDT , Discharge Plan Dx/Rx/DC Orders Clinical Impression: Weakness, UTI (urinary tract infection), Confusion, Shakiness Disposition Disposition: Acute Care Hospital [facility]
--- NOTE | 2024-06-29 16:00 | ED.RN ---
PT TO ED ROOM AT THIS TIME
--- NOTE | 2024-06-29 16:15 | RAD_ITS ---
INDICATION: shortness of breath EXAMINATION/TECHNIQUE: X-RAY - XR Chest 1 View COMPARISON: 06/15/2024 FINDINGS: Chronic lung changes. No definite acute lung findings. Tortuous and calcified thoracic aorta. The heart is not enlarged. No pleural effusion or pneumothorax. Degenerative changes of the thoracic spine and shoulders. RAD/Chest 1 View (Portable) IMPRESSION: No acute radiographic abnormalities. Electronically Signed: Ar Groves MD at 16:59 EDT ,
[2024-06-29 16:22] LABS: Absolute Lymphocyte Count 1.31 X10^3/uL (0.83-4.51); Absolute Neutrophil Count 4.1 X10^3/uL (2.0-7.7); Basophil# 0.08 X10^3/uL; Basophil% 1.2 % (0-1); Eosinophil# 0.01 X10^3/uL; Eosinophils% 0.1 % (0-5); Hematocrit 35.6 % (37-47); Hemoglobin 10.2 g/dL (12.0-15.0); Lymphocyte # 1.31 X10^3/ul (0.83-4.51); Lymphocyte % 18.9 % (19-41); Mean Corp Hgb Conc 28.7 g/dL (32-36); Mean Corpuscular Hgb 22.9 pg (27.0-32.0); Mean Corpuscular Volume 79.8 fL (81-99); Mean Platelet Vol. 10.2 fl (6.2-12.0); Monocyte# 1.36 X10^3/uL; Monocyte% 19.6 % (0-10); NRBC Flagged by Analyzer 0 % (0-5); Neutrophil # 4.12 X10^3/uL (2.7-7.7); Neutrophil % 59.5 % (47-70); POSITIVE MORPHOLOGY YES; Platelet Count 397 K/mm3 (150-450); RBC Distribution Width CV 27.1 % (11.6-14.6); Red Blood Count 4.46 M/mm3 (4.2-5.4); White Blood Count 6.9 K/mm3 (4.4-11.0)
[2024-06-29] MEDS: 0.9% Normal Saline (500mL Bag) 500 ML 1000 ML IV (16:24)
[2024-06-29 16:37] LABS: ALB/GLOB Ratio 0.6 RATIO (0.9-2.4); AST(SGOT) 23 U/L (15-37); Alanine Aminotransfer ALT/SGPT 19 U/L (13-56); Albumin, Serum 2.8 g/dL (3.2-5.0); Alkaline Phosphatase 87 U/L (45-117); Anion Gap 7 (5-15); BUN 18 mg/dL (7-18); Calcium,Total 8.9 mg/dL (8.5-10.1); Chloride 98 mmol/L (98-107); Creatinine, Serum 1.06 mg/dL (0.55-1.02); Differential Indicated SCAN CRITERIA MET; EST Glomerular Filtration Rate 53 mL/min (>60); Est Glom Filt Rate - Afr Amer 64 mL/min (>60); Globulin 4.6 g/dL (2.2-4.2); Glucose 269 mg/dL (74-106); Potassium 4.3 mmol/L (3.5-5.1); Protein, Total 7.4 g/dL (6.4-8.2); Sodium Level 133 mmol/L (136-145); Troponin-I HS 35 pg/mL (3.0-54.0)
[2024-06-29 17:42] LABS: Bacteria 0 SEEN /hpf (None Seen); Mucous, Urine 0 SEEN /hpf (<or=2+); White Blood Cells 0 SEEN /hpf (0-5)
[2024-06-29 18:13] LABS: Color, Urine Yellow (Yellow); Glucose, Dipstick 250 mg/dl (Normal); Ketone-Dipstick 15 mg/dl (Negative); Leukocyte Esterase-Dipstick Negative /ul (Negative); Nitrite-Dipstick Negative (Negative); Occult Blood-Urine 10 /ul (Negative); Protein-Dipstick 15 mg/dl (Negative); Specific Gravity, Urine 1.015 (1.002-1.030); Urine Bilirubin Dipstick Negative (Negative); Urine Clarity Clear (Clear); Urine Urobilinogen Normal (Normal)
[2024-06-29 18:15] LABS: Red Blood Cells-Urine 0-5 SEEN /hpf (0-5); Squamous Epithelial Cells - UA 0-5 SEEN /hpf (5-10)
[2024-06-29 18:16] LABS: Hyaline Cast 0-5 SEEN /lpf (0-5)
--- NOTE | 2024-06-29 19:21 | HP.PCM.HOS_ITS ---
HPI - General General Date of Admission: 06/29/24 Date of Service: 06/29/24 Chief Complaint: Recent UTI Dx, inability to ambulation, debility. HPI Narrative The patient is a 77 y/o F w/ PMHx: HFpEF, Chronic COPD w/ chronic hypoxic respiratory failure (2L NC), HTN, HLD, Hypothyroidism with history of Pepe's thyroiditis, Hx BL PE, Former Tobacco use, IDDM with insulin pump in place, PAF, CKD III unclear subtype per GFR trending, Chronic memory impairment, most recent discharge 06/16/24 following evaluation of GI bleed/anemia w/ hold on her xarelto x 1 week following d/c, Exacerbation HFPEF, PAF RVR who now re- presents to the [facility] ED on 06/29/24 with history of generalized weakness with recent diagnosis of UTI seen in the emergency room 3 days prior with fould urine/dysuria with difficulty with worsening weakness and inability to ambulate independently placed on nitrofurantoin at that time with some improvement and eventual discharge to home however since then she has had worsening debility, inability to even get up off the commode prompting significant other to bring her in for evaluation. 06/24/2024 urine culture with presumptive E. coli resulting with greater than 100,000 colony-forming units noted to be susceptible to nitrofurantoin with plan duration of treatment 7 days. #1. Workup in the ED included T96.8, heart rate 97, BP 143/68, respiratory rate 14, 93% on 2 L nasal cannula, CBC with WBC 6.9, [place] 10.2, MCV 79.8, platelet 397 without marked shift, CMP with sodium 133, BUN/creatinine 18/1.06, GFR 53, glucose 269, hepatic profile not marked appearing, troponin 35, urinalysis with no obvious evidence of UTI, chest x-ray with no acute cardiopulmonary findings. 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 Memory loss HLD (hyperlipidemia) HTN (hypertension) Pulmonary embolism, bilateral Smoker COPD (chronic obstructive pulmonary disease) Home Medications ?Medication ?Instructions ?Recorded ?Last Taken ?Type amlodipine 5 mg-benazepril 10 mg 1 cap PO DAILY blood pressure 09/08/21 09/07/22 History capsule rivaroxaban 20 mg tablet (Xarelto) 20 mg PO DAILY blood thinner 04/23/22 09/08/22 History oxybutynin chloride 10 mg 10 mg PO DAILY bladder 09/08/22 09/07/22 History tablet,extended release 24 hr simvastatin 10 mg tablet 10 mg PO DAILY cholesterol 09/08/22 09/07/22 History cholecalciferol (vitamin D3) 50 4,000 unit PO .COMPLEX vitamin 06/29/23 01/11/24 History mcg (2,000 unit) tablet (D3 DOTS) insulin aspart U-100 100 unit/mL subcut DIABETES 06/29/23 Unknown History subcutaneous solution (Novolog U-100 Insulin aspart) magnesium 200 mg tablet 400 mg PO DAILY supplement 06/29/23 Unknown History levothyroxine 100 mcg tablet 100 mcg PO .qd, 1 1/2 every 01/11/24 06/15/24 History hypothyroid iron, carbonyl 45 mg tablet 45 mg PO DAILY #30 tabs 06/16/24 Unknown Rx insulin degludec 100 unit/mL 10 unit subcut QHS 06/29/24 Unknown History subcutaneous solution (Tresiba U-100 Insulin) tiotropium bromide 2.5 2 inh inhalation DAILY 06/29/24 Unknown History mcg/actuation mist for inhalation (Spiriva Respimat) Allergy/AdvReac Type Severity Reaction Status Date / Time ciprofloxacin (From Cipro) Allergy Intermediate hives Verified 06/29/24 13:46 Sulfa (Sulfonamide Allergy Intermediate hives Verified 06/29/24 13:46 Antibiotics) Penicillins Allergy Rash Verified 06/29/24 13:46 Family History Father Diabetes Respiratory disease Mother No problems noted. 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 alcohol intake: current alcohol intake frequency: a few times a month substance use type: does not use ROS ROS Narrative Admission Review of Systems: CONSTITUTIONAL: No weight loss, fever, chills, + weakness or fatigue. HEENT: Eyes: No visual loss, blurred vision, double vision or yellow sclerae. Ears, Nose, Throat: No hearing loss, sneezing, congestion, runny nose or sore throat. SKIN: No rash or itching, lesions, wounds. CARDIOVASCULAR: No chest pain, chest pressure or chest discomfort, palpitations, edema, orthopnea, syncopal events. RESPIRATORY: No shortness of breath, cough or sputum, wheezing, hemoptysis. GASTROINTESTINAL: + anorexia. No nausea, vomiting or diarrhea, abdominal pain, melena, BRBPR. GENITOURINARY: Recent PCP Dx UTI w/ foul smelling urine, dysuria. No frequency, urgency or retention. NEUROLOGICAL: + Severe weakness, increased lethargy, increased confusion above impairment baseline. No headache, dizziness, syncope, paralysis, ataxia, numbness or tingling in the extremities, focal weakness, change in bowel or bladder control, seizure. MUSCULOSKELETAL: + muscle, back pain, joint pain or stiffness. HEMATOLOGIC: + Chronic anemia, easy bleeding/bruising. LYMPHATICS: No enlarged nodes. No history of splenectomy. PSYCHIATRIC: No history of depression or anxiety. ENDOCRINOLOGIC: No reports of sweating, cold or heat intolerance. No polyuria or polydipsia. ALLERGIES: + history of hives. Vital Signs Vital Signs Vital Signs: 06/29/24 13:46 06/29/24 16:00 06/29/24 16:00 Temperature 96.8 F L Temperature Source Temporal Pulse Rate 97 100 Respiratory Rate 14 16 Respiratory Effort Normal Respiratory Pattern Normal Blood Pressure 143/68 H 148/74 H Blood Pressure Mean 93 98 Pulse Ox 93 96 Oxygen Delivery Method Nasal Cannula Nasal Cannula Oxygen Flow Rate (L/min) 2 2 06/29/24 18:00 Temperature Temperature Source Pulse Rate 87 Respiratory Rate 16 Respiratory Effort Respiratory Pattern Blood Pressure 158/70 H Blood Pressure Mean 99 Pulse Ox 96 Oxygen Delivery Method Room Air Oxygen Flow Rate (L/min) Physical Exam Narrative Physical Examination: General: Awake, alert, oriented to place but cannot given year or month, lethargic and ill appearing in the ED, seated upright. Skin: Normal color, normal turgor, no icterus, no cyanosis except various abrasions (especially LE, L > R), various staged ecchymoses. HEENT: AT/NC, EOMI, PERRLA, dry MM, no carotid bruits or JVD noted. Lungs: Mildly diminished, greater bases, mildly increased respiratory rate but no distress, no rales, ronchi or wheezing. Heart: Currently regular rate with regular rhythm; no gallop, rub audible. Abdomen: Soft, NTTP, no suprapubic discomfort, ND, mildly hyperactive BS, no appreciated HSM. Extremities: No cyanosis, clubbing, or edema. Neurological: Patient awake, alert, oriented as noted, cognitive function not baseline intact with underlying known chronic memory impairment issues already; pupils equally reactive to light and accommodation, cranial nerves grossly normal, moving all 4 extremities, no focal deficits, strength severely globally decreased secondary to acute presentation. Psychiatric: Affect appears flat, fatigued, ill-appearing, no acute evidence of depressive or anxiety feelings. Results Lab / Micro Data 06/29/24 16:10 06/29/24 16:10 Labs: Laboratory Results - last 24 hr 06/29/24 16:10: WBC 6.9 06/29/24 16:10: WBC Cancelled, Corrected WBC Cancelled, RBC 4.46 06/29/24 16:10: RBC Cancelled, Hgb 10.2 L 06/29/24 16:10: Hgb Cancelled, Hct 35.6 L 06/29/24 16:10: Hct Cancelled, MCV 79.8 L 06/29/24 16:10: MCV Cancelled, MCH 22.9 L 06/29/24 16:10: MCH Cancelled, MCHC 28.7 L 06/29/24 16:10: MCHC Cancelled, RDW Std Deviation 75.0 H 06/29/24 16:10: RDW Std Deviation Cancelled, RDW Coeff of Kristyn 27.1 H 06/29/24 16:10: RDW Coeff of Kristyn Cancelled, Plt Count 397 06/29/24 16:10: Plt Count Cancelled, MPV 10.2 06/29/24 16:10: MPV Cancelled, Immature Gran % (Auto) 0.700 06/29/24 16:10: Immature Gran % (Auto) Cancelled, Neut % (Auto) 59.5 06/29/24 16:10: Neut % (Auto) Cancelled, Lymph % (Auto) 18.9 L 06/29/24 16:10: Lymph % (Auto) Cancelled, [place] % (Auto) 19.6 H 06/29/24 16:10: [place] % (Auto) Cancelled, Eos % (Auto) 0.1 06/29/24 16:10: Eos % (Auto) Cancelled, Baso % (Auto) 1.2 H 06/29/24 16:10: Baso % (Auto) Cancelled, Absolute Neuts (auto) 4.1 06/29/24 16:10: Absolute Neuts (auto) Cancelled, Absolute Lymphs (auto) 1.31 06/29/24 16:10: Absolute Lymphs (auto) Cancelled, Total Counted Cancelled, Neutrophils % (Manual) Cancelled, Band Neutrophils % Cancelled, Lymphocytes % (Manual) Cancelled, Monocytes % (Manual) Cancelled, Eosinophils % (Manual) Cancelled, Basophils % (Manual) Cancelled, Metamyelocytes % Cancelled, Myelocytes % Cancelled, Promyelocytes % Cancelled, Blast Cells % Cancelled, Plasma Cell % (Manual) Cancelled, Other Cells % Cancelled, Nucleated RBC % 0 06/29/24 16:10: Nucleated RBC % Cancelled, Nucleated RBCs/100 WBC Cancelled, Differential Comment Cancelled, Diff Path Review Cancelled, Hypersegmented Neuts Cancelled, Atypical Lymphocytes Cancelled, Reactive Lymphocytes Cancelled, Smudge Cells Cancelled, Toxic Granulation Cancelled, Toxic Vacuolation Cancelled, Dohle Bodies Cancelled, Jaye Rods Cancelled, Platelet Estimate Cancelled, Plt Morphology Comment Cancelled, RBC Morphology Cancelled 06/29/24 16:10: RBC Morphology Cancelled, Polychromasia Cancelled, Hypochromasia Cancelled, Basophilic Stippling Cancelled, Anisocytosis Cancelled, Microcytosis Cancelled, Macrocytosis Cancelled, Spherocytes Cancelled, Sickle Cells Cancelled, Target Cells Cancelled, Tear Drop Cells Cancelled, Ovalocytes Cancelled, Stomatocytes Cancelled, [place] Bodies Cancelled, [place] Cells Cancelled, Bite Cells Cancelled, Crenated Cell Cancelled, Acanthocytes (Spur) Cancelled, Rouleaux Cancelled, Schistocytes Cancelled, Sodium 133 L, Potassium 4.3, Chloride 98, Carbon Dioxide 28.0, Anion Gap 7, BUN 18, Creatinine 1.06 H, Est GFR (MDRD) Af Amer 64, Est GFR (MDRD) Non-Af 53 L, BUN/Creatinine Ratio 17.0, Glucose 269 H, Calcium 8.9, Total Bilirubin 0.30, AST 23, ALT 19, Alkaline Phosphatase 87, Troponin I High Sens 35, Total Protein 7.4, Albumin 2.8 L, G lobulin 4.6 H, Albumin/Globulin Ratio 0.6 L 06/29/24 17:38: Urine Color Yellow, Urine Clarity Clear, Urine pH 6.0, Ur Specific [place] 1.015, Urine Protein 15 H, Urine Glucose (UA) 250 H, Urine Ketones 15 H, Urine Occult Blood 10 H, Urine Nitrite Negative, Urine Bilirubin Negative, Urine Urobilinogen Normal, Ur Leukocyte Esterase Negative, Urine RBC 0-5 SEEN, Urine WBC 0 SEEN, Ur Squamous Epith Cells 0-5 SEEN, Urine Bacteria 0 SEEN, Hyaline Casts 0-5 SEEN, Urine Mucus 0 SEEN Imaging Radiology Impression Chest X-Ray 06/29/24 16:15 IMPRESSION: No acute radiographic abnormalities. Electronically Signed: Ar Groves MD at 16:59 EDT , Assessment & Plan Assessment/Plan (1) UTI (urinary tract infection): PLAN: Plan The patient is a 77 y/o F w/ PMHx: HFpEF, Chronic COPD w/ chronic hypoxic respiratory failure (2L NC), HTN, HLD, Hypothyroidism with history of Pepe's thyroiditis, Hx BL PE, Former Tobacco use, IDDM with insulin pump in place, PAF, CKD III unclear subtype per GFR trending, Chronic memory impairment, most recent discharge 06/16/24 following evaluation of GI bleed/anemia w/ hold on her xarelto x 1 week following d/c, Exacerbation HFPEF, PAF RVR who now re- presents to the [facility] ED on 06/29/24 with history of generalized weakness with recent diagnosis of UTI seen in the emergency room 3 days prior with difficulty with worsening weakness and inability to ambulate independently placed on nitrofurantoin at that time with some improvement and eventual discharge to home however since then she has had worsening debility, inability to even get up off the commode prompting significant other to bring her in for evaluation. #1. Acute Encephalopathy complicated by #12 secondary to Acute debility, adult failure to thrive secondary to recently diagnosed acute complicated E. coli urinary tract infection: Patient with notable debility, inability to ambulate effectively, will admit to medical surgical floor, maintain on fall precautions, will hold oral antibiotic therapy and transition to IV rocephin, judiciously hydrate if necessary, PT/OT/case management consulted for discharge planning as certainly may need transient skilled prior to discharge back to home. #2. Recent history of GI bleed with acute on chronic anemia associated secondary to acute blood loss: Recent discharge 06/16/2024 following admission for GI bleed with symptomatic anemia with admission hemoglobin 6.1 with 2 unit PRBC transfusion as well as iron supplementation, EGD with normal esophagus, stomach, single bleeding angiodysplastic lesion in the duodenum treated with a heater probe, single nonbleeding angiodysplastic lesion in the duodenum also treated with a heater probe with a duodenal lipoma noted. Current admission hemoglobin 10.2, MCV 79.8, continue to trend. #3. HFpEF: Recent exacerbation with discharge 06/16/2024, echocardiogram with echo 75%, exacerbation felt secondary overload with PRBC administration with temporary IV Lasix diuresis and eventual transition to oral Lasix 20 mg daily, continue xarelto, statin, ACEI, not on BB therapy. #4. PAF with recent admission RVR: Likely secondary to symptomatic anemia presentation, recent discharge 06/16/2024, not on BB therapy, continue with plan for resumption of Xarelto regimen following hold, #5. Chronic COPD with chronic hypoxic respiratory failure 2 L NC: Will maintain on home oxygen supplementation, maintain on ATC budesonide therapy, PRN albuterol, HOB, IS parameters. #6. IDDM with hyperglycemia: Most recent endocrinology evaluation 06/27/2024 with noted hemoglobin A1c in the office 6.7% likely falsely low secondary recent GI bleed history with encouraged continued outpatient follow-up and evaluation. Patient with chronic insulin pump regimen, will continue monitoring per her pump as long as Accu-Cheks match up, maintain on ADA diet, accu checks w/ ISS. #7. Hypertension: Continue home regimen including amlodipine, ACEI with hold parameters as needed, PRN hydralazine. #8. Hyperlipidemia: We will can patient on statin therapy. #9. Chronic Kidney Disease Stage III per GFR trending, unclear type: Admission BUN/Cr 18/1.06, GFR 53, baseline renal function primarily 0.9-1.1, repeat BMP in AM. #10. Hypothyroidism: History of Pepe's thyroiditis previously, continue home levothyroxine regimen. #11. History of VTE: Patient with history of DVT, bilateral PE, continue with resumption plan of home Xarelto. #12. Chronic memory impairment: Unclear exact etiology, possibly dementia unclear type with no behavioral disturbance history, not on any medication, encourage continued outpatient monitoring and follow-up. #13. Former tobacco use: Encourage continued tobacco cessation. #14. DVT prophylaxis: Continue with resumption plan of home Xarelto. #15. CODE status: Patient JOSEFINA is her good friend Dillon and living will is currently in place. Discussed CODE status at length including difference between FULL code, DNR-CCA and DNR-CC status. Following discussions about the differences in these status, requested Full Code status. Advanced Care Planning Face to Face Time: 16 minutes. Charges/Coding Visit Charges Inpatient E&M: 80279 Init Hosp L3 Procedures Hospitalists Procedures: 99706 Advncd Care Plan 30 Min
[2024-06-29] MEDS: Ceftriaxone 1 GM/50 ML BAG IV (22:59)
[2024-06-29] MEDS: 0.9% Normal Saline (1000mL) 1,000 ML 75 ML IV (22:59)
[2024-06-30] VITALS (13 sets, daily range): BP systolic 130–165; BP diastolic 45–74; PULSE 81–99; RESP 16–24; TEMP 36.5–36.9; O2SAT 84–95; BMI 29.5
[2024-06-30 00:34] LABS: Bedside Glucose 365 mg/dL (74-106)
[2024-06-30] MEDS: Insulin Glargine-YFGN 100 UNIT/ML Pen 10 UNIT SC (00:43)
[2024-06-30] MEDS: Menthol/Lanolin/Calamine/Znox 113 GM Tube 1 APPLIC TOPICAL ×5 (00:46→21:50)
[2024-06-30] MEDS: hydrALAZINE 20 MG/ML Vial 10 MG IV (00:52)
[2024-06-30] MEDS: Levothyroxine 100 MCG Tablet PO (06:27)
[2024-06-30 06:57] LABS: Absolute Lymphocyte Count 1.39 X10^3/uL (0.83-4.51); Absolute Neutrophil Count 2.8 X10^3/uL (2.0-7.7); Basophil# 0.07 X10^3/uL; Basophil% 1.3 % (0-1); Eosinophil# 0.02 X10^3/uL; Eosinophils% 0.4 % (0-5); Hemoglobin 9.9 g/dL (12.0-15.0); Lymphocyte # 1.39 X10^3/ul (0.83-4.51); Lymphocyte % 26.3 % (19-41); Mean Corp Hgb Conc 29.1 g/dL (32-36); Mean Corpuscular Hgb 23.5 pg (27.0-32.0); Mean Corpuscular Volume 80.6 fL (81-99); Mean Platelet Vol. 10.1 fl (6.2-12.0); Monocyte# 0.96 X10^3/uL; Monocyte% 18.1 % (0-10); NRBC Flagged by Analyzer 0 % (0-5); Neutrophil # 2.81 X10^3/uL (2.7-7.7); Neutrophil % 53.1 % (47-70); POSITIVE MORPHOLOGY YES; Platelet Count 403 K/mm3 (150-450); RBC Distribution Width CV 26.8 % (11.6-14.6); RBC Distribution Width SD 76.2 fl (35.1-43.9); Red Blood Count 4.22 M/mm3 (4.2-5.4); White Blood Count 5.3 K/mm3 (4.4-11.0)
[2024-06-30 07:04] LABS: Differential Indicated SCAN CRITERIA MET
[2024-06-30 07:17] LABS: ALB/GLOB Ratio 0.6 RATIO (0.9-2.4); AST(SGOT) 22 U/L (15-37); Alanine Aminotransfer ALT/SGPT 19 U/L (13-56); Albumin, Serum 2.5 g/dL (3.2-5.0); Alkaline Phosphatase 81 U/L (45-117); Anion Gap 10 (5-15); BUN 18 mg/dL (7-18); BUN/Creat Ratio 19.5 RATIO (10-20); Calcium,Total 8.4 mg/dL (8.5-10.1); Chloride 101 mmol/L (98-107); Creatinine, Serum 0.92 mg/dL (0.55-1.02); EST Glomerular Filtration Rate 62 mL/min (>60); Est Glom Filt Rate - Afr Amer 75 mL/min (>60); Estimated Creatinine Clearance 50.35 ml/min; Globulin 4.4 g/dL (2.2-4.2); Glucose 342 mg/dL (74-106); Potassium 4.3 mmol/L (3.5-5.1); Protein, Total 6.9 g/dL (6.4-8.2); Sodium Level 135 mmol/L (136-145)
[2024-06-30] MEDS: Budesonide Respules 0.5 MG/2 ML AMPUL.NEB. INHALATION ×2 (07:26→19:42)
--- NOTE | 2024-06-30 07:27 | PN.HOSP_ITS ---
Reason for Visit Reason for Visit: Diagnoses Urinary tract infection, site not specified (06/29/24) Objective Data Objective Data Vital Signs: Vital Signs Temp Pulse Resp BP Pulse Ox O2 Del Method O2 Flow Rate 98.1 F 94 24 H 138/45 H 94 Nasal Cannula 2 06/30/24 06:21 06/30/24 06:21 06/30/24 06:21 06/30/24 06:21 06/30/24 06:21 06/30/24 06:21 06/30/24 06:21 Oxygen Flow Rate (L/min) 2 Oxygen Delivery Method Nasal Cannula Weight: 171 lb 15.369 oz Body Mass Index (BMI) 28.6 Intake & Output: Intake and Output for Last 24 Hours 06/28/24 06/29/24 06/30/24 23:59 23:59 23:59 Intake Total 550 / 550 50 / 50 Output Total 200 / 200 Balance 550 / 550 -150 / -150 Lab / Micro Data 06/30/24 06:12 06/30/24 06:12 Labs: Laboratory Results - last 24 hr 06/29/24 16:10: WBC 6.9 06/29/24 16:10: WBC Cancelled, Corrected WBC Cancelled, RBC 4.46 06/29/24 16:10: RBC Cancelled, Hgb 10.2 L 06/29/24 16:10: Hgb Cancelled, Hct 35.6 L 06/29/24 16:10: Hct Cancelled, MCV 79.8 L 06/29/24 16:10: MCV Cancelled, MCH 22.9 L 06/29/24 16:10: MCH Cancelled, MCHC 28.7 L 06/29/24 16:10: MCHC Cancelled, RDW Std Deviation 75.0 H 06/29/24 16:10: RDW Std Deviation Cancelled, RDW Coeff of Kristyn 27.1 H 06/29/24 16:10: RDW Coeff of Kristyn Cancelled, Plt Count 397 06/29/24 16:10: Plt Count Cancelled, MPV 10.2 06/29/24 16:10: MPV Cancelled, Immature Gran % (Auto) 0.700 06/29/24 16:10: Immature Gran % (Auto) Cancelled, Neut % (Auto) 59.5 06/29/24 16:10: Neut % (Auto) Cancelled, Lymph % (Auto) 18.9 L 06/29/24 16:10: Lymph % (Auto) Cancelled, [place] % (Auto) 19.6 H 06/29/24 16:10: [place] % (Auto) Cancelled, Eos % (Auto) 0.1 06/29/24 16:10: Eos % (Auto) Cancelled, Baso % (Auto) 1.2 H 06/29/24 16:10: Baso % (Auto) Cancelled, Absolute Neuts (auto) 4.1 06/29/24 16:10: Absolute Neuts (auto) Cancelled, Absolute Lymphs (auto) 1.31 06/29/24 16:10: Sodium 133 L, Potassium 4.3, Chloride 98, Carbon Dioxide 28.0, Anion Gap 7, BUN 18, Creatinine 1.06 H, Est GFR (MDRD) Af Amer 64, Est GFR (MDRD) Non-Af 53 L, BUN/Creatinine Ratio 17.0, Glucose 269 H, Calcium 8.9, Total Bilirubin 0.30, AST 23, ALT 19, Alkaline Phosphatase 87, Troponin I High Sens 35, Total Protein 7.4, Albumin 2.8 L, Globulin 4.6 H, Albumin/Globulin Ratio 0.6 L 06/29/24 17:38: Urine Color Yellow, Urine Clarity Clear, Urine pH 6.0, Ur Specific [place] 1.015, Urine Protein 15 H, Urine Glucose (UA) 250 H, Urine Ketones 15 H, Urine Occult Blood 10 H, Urine Nitrite Negative, Urine Bilirubin Negative, Urine Urobilinogen Normal, Ur Leukocyte Esterase Negative, Urine RBC 0-5 SEEN, Urine WBC 0 SEEN, Ur Squamous Epith Cells 0-5 SEEN, Urine Bacteria 0 SEEN, Hyaline Casts 0-5 SEEN, Urine Mucus 0 SEEN 06/30/24 00:13: POC Glucose 365 H 06/30/24 06:12: WBC 5.3, RBC 4.22, Hgb 9.9 L, Hct 34.0 L, MCV 80.6 L, MCH 23.5 L , MCHC 29.1 L, RDW Std Deviation 76.2 H, RDW Coeff of Kristyn 26.8 H, Plt Count 403, MPV 10.1, Immature Gran % (Auto) 0.800, Neut % (Auto) 53.1, Lymph % (Auto) 26.3, [place] % (Auto) 18.1 H, Eos % (Auto) 0.4, Baso % (Auto) 1.3 H, Absolute Neuts (auto) 2.8, Absolute Lymphs (auto) 1.39, Nucleated RBC % 0, Sodium 135 L, Potassium 4.3, Chloride 101, Carbon Dioxide 24.0, Anion Gap 10, BUN 18, Creatinine 0.92, Estim Creat Clear Calc 50.35, Est GFR (MDRD) Af Amer 75, Est GFR (MDRD) Non-Af 62, BUN/Creatinine Ratio 19.5, Glucose 342 H, Calcium 8.4 L, Total Bilirubin 0.30, AST 22, ALT 19, Alkaline Phosphatase 81, Total Protein 6.9, Albumin 2.5 L, Globulin 4.4 H, Albumin/Globulin Ratio 0.6 L Radiography Diagnostic Testing: Radiology Impression Chest X-Ray 06/29/24 16:15 IMPRESSION: No acute radiographic abnormalities. Electronically Signed: Ar Groves MD at 16:59 EDT , Physical Exam Narrative Seen and examined. For every question patient answers no. Feels like she has cognitive problem, chronic dementia. Failure to thrive. She denies burning micturition or acute complaint but because of her dementia hard to ascertain. Physical exam General: Awake. Orientation cannot be ascertained because of cognitive problems HEENT: Atraumatic, PERRLA, EOMI, Normocephalic Oral: No Gingival or Mucosal Lesions/ Ulcerations Neck: Supple, No JVD, Negative Carotid Bruits Chest wall/Lungs: Air entry diminished in bilateral lung bases. No crepitation/rhonchi Cardiovascular: Regular rate, Regular Rhythm, Normal S1, Normal S2, No M/G/R Abdomen: Bowel Sounds Present, Soft, Non Tender, Non-Distended : No dysuria. No renal angle tenderness. No suprapubic tenderness. Extremities: No edema, Capillary Refill Less than 3 Seconds Skin: No rashes, No breakdown Musculoskeletal: Bilateral knee arthritis. Small bruise over left leg anteriorly. Bilateral knee and hip joints weakness 4/5, chronic from degenerative arthritis. Mild tenderness on lifting of lower extremity. Neurological: Cranial nerves II-XII grossly intact, DTR 2+/4. No acute focal neurological deficit. Psych/Mental Status: Flat affect, anterograde/retrograde amnesia Assessment & Plan Assessment/Plan (1) UTI (urinary tract infection): PLAN: Plan The patient is a 77 y/o F was admitted with generalized weakness with a diagnosis of recent UTI on 06/29/24 leading to acute debility with worsening weakness and inability to ambulate/transfer with restricted ADL. #1. Acute Encephalopathy with history of dementia precipitated by acute debility, adult failure to thrive secondary to recently diagnosed acute complicated E. coli urinary tract infection: UA shows RBC 0-5, WBC 0, squamous epithelium 0-5 cells, bacteria 0, SG 1.015 looks bland. LE and nitrite negative. Acute UTI less likely. Follow urine culture. Empirically on IV Rocephin. PT OT and supportive employment case manager evaluation. #2. Recent history of GI bleed with acute on chronic anemia secondary to acute blood loss: Recent discharge 06/16/2024 following admission for GI bleed with symptomatic anemia with admission hemoglobin 6.1 with 2 unit PRBC transfusion as well as iron supplementation, EGD with normal esophagus, stomach, single bleeding angiodysplastic lesion in the duodenum treated with a heater probe, single nonbleeding angiodysplastic lesion in the duodenum also treated with a heater probe with a duodenal lipoma noted. 06/24: H&H did not show significant drop from 10.2-9.9. MCV 79.8 #3. Chronic HFpEF: Recent exacerbation with discharge 06/16/2024, echocardiogram with echo 75%, exacerbation felt secondary overload with PRBC administration with temporary IV Lasix diuresis and eventual transition to oral Lasix 20 mg daily, continue xarelto, statin, ACEI. Started on metoprolol succinate 25 mg daily #4. PAF with recent admission RVR: Heart rate controlled. #5. COPD with chronic hypoxic respiratory failure 2 L NC: Continue home oxygen supplementation, maintain on ATC budesonide therapy, PRN albuterol, HOB, IS parameters. #6. IDDM with hyperglycemia: Most recent endocrinology evaluation 06/27/2024 with noted hemoglobin A1c in the office 6.7% likely falsely low secondary recent GI bleed history with encouraged continued outpatient follow-up and evaluation. Patient with chronic insulin pump regimen, will continue monitoring per her pump as long as Accu-Cheks match up, maintain on ADA diet, accu checks w/ ISS. #7. Hypertension: Continue home regimen including amlodipine, ACEI with hold parameters as needed, PRN hydralazine. #8. Hyperlipidemia: patient on statin therapy. #9. Chronic Kidney Disease Stage III per GFR trending, unclear type: Admission BUN/Cr 18/1.06, GFR 53, baseline renal function primarily 0.9-1.1 #10. Hypothyroidism: History of Pepe's thyroiditis previously, continue home levothyroxine regimen. #11. History of VTE: Patient with history of DVT, bilateral PE, continue with resumption plan of home Xarelto. #12. Chronic memory impairment: Unclear exact etiology, possibly dementia unclear type with no behavioral disturbance history, not on any medication, encourage continued outpatient monitoring and follow-up. #13. Former tobacco use: Encourage continued tobacco cessation. #14. DVT prophylaxis: Continue with resumption plan of home Xarelto. #15. CODE status: Patient JOSEFINA is her good friend Dillon and living will is currently in place. Discussed CODE status at length including difference between FULL code, DNR-CCA and DNR-CC status. Following discussions about the differences in these status, requested Full Code status. Charges/Coding Visit Charges Inpatient E&M: 48479 Subs Hosp L2
--- NOTE | 2024-06-30 07:55 | CASEMGMT ---
Social Work Power of commercial real estate attorney for healthcare scanned into [employer], living will provision is initialed. Pt's healthcare POA is Dillon Anthony. MANDEEP Singh
[2024-06-30 08:27] LABS: Differential Comment SCANNED; Platelet Estimate ADEQUATE (ADEQ)
[2024-06-30 08:30] LABS: Anisocytosis 3+; Macrocytosis 1+; Microcytosis 2+; Platelet Morphology LARGE; Polychromasia 1+; Schistocytes RARE; Target Cells RARE
[2024-06-30 08:41] LABS: CPK Total, Creatine Kinase 93 U/L (26-192)
--- NOTE | 2024-06-30 09:36 | CASEMGMT ---
Addendum entered by Alma Guallpa 06/30/24 14:15: Social Work Referrals sent to [facility], [facility] and [facility]. PT/OT still pending. SW will continue to follow. MANDEEP Singh Original Note: Social Work SW met w/pt and significant other Don in room to review prior level of function and anticipated discharge plan. PCP: Zeyad Specialists: Ron [employer] PL[employer] SUPERVISOR, endocrinology Preferred Pharmacy: [facility] in [place] Insurance/Prescription Benefit: [facility], [employer]. Prescriptions through [employer] Living Will/HPOA: yes, significant other Dillon Anthony, document is in moziy LNOK: significant other, 3 sons, on in [place], one in [place] and one in [place] Living Arrangements: Patient lives with significant other in a single story condo with no steps to enter. Don assists pt w/cooking, cleaning, transportation, as well as ADLS such as bathing, getting to the restroom, dressing. Don states pt has a balance issue. DME/HHC: Patient states she has shower chair, raised toilet, cane, walker, grab bars, pulse ox, glucometer, and home oxygen at HS at 2lpm with [employer]. Patient had [facility] HH set up on the last admission and is currently active with them. Plan: SNF SW spoke w/Don about discharge plan, pt awake but not fully participating, as per RN pt is confused. SW provided to Don a list via [facility] health care facility facilities in network w/pt's insurance, in pt's preferred geographic area and complete w/quality and resource use data. Don states [facility] is their first choice, and then [facility] or [facility]. SW explained will make referrals today and let them know most likely Tuesday about who is able to take pt. SW also educated Don and pt about the Medicare SNF benefit. Dillon states understanding. SW to make referrals to SNFs later today, PT/OT pending. MANDEEP Singh
[2024-06-30] MEDS: Ferrous Sulfate 325 MG Tablet PO (10:56)
[2024-06-30] MEDS: Magnesium Chloride 64 MG Delay Rel.Tablet 128 MG PO (10:57)
[2024-06-30] MEDS: amLODIPine 5 MG Tablet PO (10:57)
[2024-06-30] MEDS: Tolterodine Tartrate 2 MG CAP.SA PO (10:58)
[2024-06-30] MEDS: Rivaroxaban 20 MG Tablet PO (10:58)
[2024-06-30] MEDS: Lisinopril 10 MG Tablet PO (10:59)
[2024-06-30] MEDS: Glucerna Shake 120 ML LIQUID PO ×4 (11:02→22:02)
[2024-06-30] MEDS: Metoprolol(XL)Succ 25 MG Tablet PO (11:03)
[2024-06-30] MEDS: CLARIFY ORDER 1 EACH NOTE (11:14)
[2024-06-30 13:42] LABS: Bedside Glucose 424 mg/dL (74-106)
--- NOTE | 2024-06-30 14:08 | CASEMGMT ---
KRISTINE CM readmission note : Index admission: Admitted 06/14 w/GIB, acute anemia. Hgb 6.1 on admission. Pt w/hx of chronic anemia 2/2 iron deficiency, DM, COPD, and dementia. Received PRBC's during admission, GI c/s, EGD done. Had a bleeding lesion and a non-bleeding lesion, both treated w/heater probe. Dc'd home w/HHC 06/16 w/sig other/POA, Don. Pt had ED visit 06/24 for generalized weakness. Sent home w/script for ATB for Dx of UTI. Current admission: Admit 06/29 w/ UTI, adult FTT, debility. See SW assessment today 06/30. [place]. Ariela FELIZ RN CM
[2024-06-30] MEDS: Insulin Lispro 100 UNIT/ML INSULN.PEN SC ×2 (14:17→22:01)
[2024-06-30 21:38] LABS: Bedside Glucose 337 mg/dL (74-106)
[2024-06-30] MEDS: Ceftriaxone 1 GM/50 ML BAG IV (21:50)
[2024-06-30] MEDS: Atorvastatin Calcium 10 MG Tablet 5 MG PO (22:01)
[2024-07-01] VITALS (7 sets, daily range): BP systolic 126–154; BP diastolic 52–67; PULSE 71–88; RESP 16–19; TEMP 36.6–36.8; O2SAT 93–98; BMI 29.0
[2024-07-01] MEDS: Levothyroxine 150 MCG Tablet PO (05:19)
[2024-07-01] MEDS: Insulin Lispro 100 UNIT/ML INSULN.PEN SC ×3 (06:53→18:01)
[2024-07-01 06:57] LABS: Bedside Glucose 262 mg/dL (74-106)
[2024-07-01 06:59] LABS: Absolute Lymphocyte Count 1.47 X10^3/uL (0.83-4.51); Absolute Neutrophil Count 2.5 X10^3/uL (2.0-7.7); Basophil# 0.04 X10^3/uL; Basophil% 0.9 % (0-1); Eosinophil# 0.02 X10^3/uL; Eosinophils% 0.4 % (0-5); Hematocrit 34.5 % (37-47); Hemoglobin 10.1 g/dL (12.0-15.0); Lymphocyte # 1.47 X10^3/ul (0.83-4.51); Lymphocyte % 31.6 % (19-41); Mean Corp Hgb Conc 29.3 g/dL (32-36); Mean Corpuscular Hgb 23.4 pg (27.0-32.0); Mean Platelet Vol. 10.4 fl (6.2-12.0); Monocyte# 0.63 X10^3/uL; Monocyte% 13.5 % (0-10); NRBC Flagged by Analyzer 0 % (0-5); Neutrophil # 2.47 X10^3/uL (2.7-7.7); Neutrophil % 53.2 % (47-70); POSITIVE MORPHOLOGY YES; Platelet Count 468 K/mm3 (150-450); RBC Distribution Width CV 26.7 % (11.6-14.6); RBC Distribution Width SD 75.2 fl (35.1-43.9); Red Blood Count 4.31 M/mm3 (4.2-5.4); White Blood Count 4.7 K/mm3 (4.4-11.0)
[2024-07-01 07:15] LABS: Anion Gap 6 (5-15); BUN 23 mg/dL (7-18); BUN/Creat Ratio 25.8 RATIO (10-20); Calcium,Total 8.9 mg/dL (8.5-10.1); Chloride 101 mmol/L (98-107); Creatinine, Serum 0.89 mg/dL (0.55-1.02); EST Glomerular Filtration Rate 65 mL/min (>60); Est Glom Filt Rate - Afr Amer 78 mL/min (>60); Estimated Creatinine Clearance 52.34 ml/min; Glucose 245 mg/dL (74-106); Potassium 4.1 mmol/L (3.5-5.1); Sodium Level 135 mmol/L (136-145)
[2024-07-01] MEDS: Budesonide Respules 0.5 MG/2 ML AMPUL.NEB. INHALATION ×2 (07:24→19:32)
[2024-07-01] MEDS: Ferrous Sulfate 325 MG Tablet PO (08:38)
[2024-07-01] MEDS: Glucerna Shake 120 ML LIQUID PO ×3 (08:39→18:02)
[2024-07-01] MEDS: Menthol/Lanolin/Calamine/Znox 113 GM Tube 1 APPLIC TOPICAL ×4 (08:39→22:25)
[2024-07-01] MEDS: Metoprolol(XL)Succ 25 MG Tablet PO (08:49)
[2024-07-01] MEDS: Lisinopril 10 MG Tablet PO (08:49)
[2024-07-01] MEDS: amLODIPine 5 MG Tablet PO (08:49)
[2024-07-01] MEDS: Magnesium Chloride 64 MG Delay Rel.Tablet 128 MG PO (08:49)
[2024-07-01] MEDS: Rivaroxaban 20 MG Tablet PO (08:50)
[2024-07-01] MEDS: Insulin Glargine-YFGN 100 UNIT/ML Pen 10 UNIT SC (08:50)
[2024-07-01] MEDS: Tolterodine Tartrate 2 MG CAP.SA PO (08:53)
--- NOTE | 2024-07-01 10:08 | PN.HOSP_ITS ---
Reason for Visit Reason for Visit: Diagnoses Urinary tract infection, site not specified (06/29/24) Objective Data Objective Data Vital Signs: Vital Signs Temp Pulse Resp BP Pulse Ox O2 Del Method O2 Flow Rate 98.0 F 82 18 147/61 H 93 Nasal Cannula 2 07/01/24 08:00 07/01/24 08:49 07/01/24 08:00 07/01/24 08:00 07/01/24 08:00 07/01/24 08:00 07/01/24 08:00 Oxygen Flow Rate (L/min) 2 Oxygen Delivery Method Nasal Cannula Weight: 173 lb 15.115 oz Body Mass Index (BMI) 29.0 Intake & Output: Intake and Output for Last 24 Hours 06/29/24 06/30/24 07/01/24 23:59 23:59 23:59 Intake Total 550 / 550 600 / 600 200 / 200 Output Total 700 / 700 400 / 400 Balance 550 / 550 -100 / -100 -200 / -200 Lab / Micro Data 07/01/24 05:55 07/01/24 05:55 Labs: Laboratory Results - last 24 hr 06/30/24 13:22: POC Glucose 424 H 06/30/24 21:19: POC Glucose 337 H 07/01/24 05:55: WBC 4.7, RBC 4.31, Hgb 10.1 L, Hct 34.5 L, MCV 80.0 L, MCH 23.4 L, MCHC 29.3 L, RDW Std Deviation 75.2 H, RDW Coeff of Kristyn 26.7 H, Plt Count 468 H, MPV 10.4, Immature Gran % (Auto) 0.400, Neut % (Auto) 53.2, Lymph % (Auto) 31.6, [place] % (Auto) 13.5 H, Eos % (Auto) 0.4, Baso % (Auto) 0.9, Absolute Neuts (auto) 2.5, Absolute Lymphs (auto) 1.47, Nucleated RBC % 0, Sodium 135 L, Potassium 4.1, Chloride 101, Carbon Dioxide 28.0, Anion Gap 6, BUN 23 H, Creatinine 0.89, Estim Creat Clear Calc 52.34, Est GFR (MDRD) Af Amer 78, Est GFR (MDRD) Non-Af 65, BUN/Creatinine Ratio 25.8 H, Glucose 245 H, Calcium 8.9 07/01/24 06:40: POC Glucose 262 H Physical Exam Narrative Seen and examined. Patient is sitting on the chair. She she states she has moved her bowels but uncertain due to her history of dementia Physical exam General: Awake. Orientation x 3. Looks more alert than yesterday. HEENT: Atraumatic, PERRLA, EOMI, Normocephalic Oral: Oral mucosa moist. No Gingival or Mucosal Lesions/ Ulcerations Neck: Supple, No JVD, Negative Carotid Bruits Chest wall/Lungs: Air entry diminished in bilateral lung bases. No crepitation/rhonchi Cardiovascular: Regular rate, Regular Rhythm, Normal S1, Normal S2, No M/G/R Abdomen: Bowel Sounds Present, Soft, Non Tender, Non-Distended : No dysuria. No renal angle tenderness. No suprapubic tenderness. Extremities: No edema, Capillary Refill Less than 3 Seconds Skin: No rashes, No breakdown Musculoskeletal: Bilateral knee arthritis. Bilateral knee arthritis. Neurological: Cranial nerves II-XII grossly intact, DTR 2+/4. No acute focal neurological deficit. Psych/Mental Status: Flat affect, anterograde/retrograde amnesia Assessment & Plan Assessment/Plan (1) UTI (urinary tract infection): PLAN: Plan The patient is a 77 y/o F was admitted with generalized weakness with a diagnosis of recent UTI on 06/29/24 leading to acute debility with worsening weakness and inability to ambulate/transfer with restricted ADL. #1. Acute Encephalopathy with history of dementia precipitated by acute debility, adult failure to thrive secondary to recently diagnosed acute complicated E. coli urinary tract infection: UA from 06/29 shows RBC 0-5, WBC 0, squamous epithelium 0-5 cells, bacteria 0, SG 1.015, looks bland. LE and nitrite negative. Empirically on IV Rocephin. PT OT and immigration case manager evaluation. 07/01: Patient does not look confused or disoriented today. Much alert and talking coherently. I think her acute encephalopathy is resolved. She completed treatment of nitrofurantoin for urine culture of 06/24 showing E. coli more than 100,000. Urine culture was not sent from UA of 06/29. UA with urine culture ordered. Empirically on IV ceftriaxone, can discontinue after 3 doses. #2. Recent history of GI bleed with acute on chronic anemia secondary to acute blood loss: Recent discharge 06/16/2024 following admission for GI bleed with symptomatic anemia with admission hemoglobin 6.1 with 2 unit PRBC transfusion as well as iron supplementation, EGD with normal esophagus, stomach, single bleeding angiodysplastic lesion in the duodenum treated with a heater probe, single nonbleeding angiodysplastic lesion in the duodenum also treated with a heater probe with a duodenal lipoma noted. 06/30: H&H did not show significant drop from 10.2-9.9. MCV 79.8 07/01: H&H normal range. Does not need further monitoring of CBC. #3. Chronic HFpEF: Recent exacerbation with discharge 06/16/2024, echocardiogram with echo 75%, exacerbation felt secondary overload with PRBC administration with temporary IV Lasix diuresis and eventual transition to oral Lasix 20 mg daily, continue xarelto, statin, ACEI. Started on metoprolol succinate 25 mg daily #4. PAF with recent admission RVR: Heart rate controlled. #5. COPD with chronic hypoxic respiratory failure 2 L NC: Continue home oxygen supplementation, maintain on ATC budesonide therapy, PRN albuterol, HOB, IS parameters. #6. IDDM with hyperglycemia: Most recent endocrinology evaluation 06/27/2024 with noted hemoglobin A1c in the office 6.7% falsely low as glucose is always around average 252- 350. Looks like patient is on insulin pump at home. 07/01: Patient glucose is elevated between 250-424. Started on scheduled Humalog insulin 600, 3 times daily AC increase Lantus to 18 units subcutaneous daily. Accu-Chek before meals and at bedtime with Humalog sliding scale coverage and hypoglycemia protocol. Adjust insulin dose accordingly. #7. Hypertension: Continue home regimen including amlodipine, ACEI with hold parameters as needed, PRN hydralazine. #8. Hyperlipidemia: patient on statin therapy. #9. Chronic Kidney Disease Stage III per GFR trending, unclear type: Admission BUN/Cr 18/1.06, GFR 53, baseline renal function primarily 0.9-1.1 #10. Hypothyroidism: History of Pepe's thyroiditis previously, continue home levothyroxine regimen. #11. History of VTE: Patient with history of DVT, bilateral PE, continue with resumption plan of home Xarelto. #12. Chronic memory impairment: Unclear exact etiology, possibly dementia unclear type with no behavioral disturbance history, not on any medication, encourage continued outpatient monitoring and follow-up. #13. Former tobacco use: Encourage continued tobacco cessation. #14. DVT prophylaxis: Continue with resumption plan of home Xarelto. #15. CODE status: Patient JOSEFINA is her good friend Dillon and living will is currently in place. Discussed CODE status at length including difference between FULL code, DNR-CCA and DNR-CC status. Following discussions about the differences in these status, requested Full Code status. Laboratory Results 06/30/24 13:22: POC Glucose 424 H 06/30/24 21:19: POC Glucose 337 H 07/01/24 05:55: WBC 4.7, RBC 4.31, Hgb 10.1 L, Hct 34.5 L, MCV 80.0 L, MCH 23.4 L, MCHC 29.3 L, RDW Std Deviation 75.2 H, RDW Coeff of Kristyn 26.7 H, Plt Count 468 H, MPV 10.4, Immature Gran % (Auto) 0.400, Neut % (Auto) 53.2, Lymph % (Auto) 31.6, [place] % (Auto) 13.5 H, Eos % (Auto) 0.4, Baso % (Auto) 0.9, Absolute Neuts (auto) 2.5, Absolute Lymphs (auto) 1.47, Nucleated RBC % 0, Sodium 135 L, Potassium 4.1, Chloride 101, Carbon Dioxide 28.0, Anion Gap 6, BUN 23 H, Creatinine 0.89, Estim Creat Clear Calc 52.34, Est GFR (MDRD) Af Amer 78, Est GFR (MDRD) Non-Af 65, BUN/Creatinine Ratio 25.8 H, Glucose 245 H, Calcium 8.9 07/01/24 06:40: POC Glucose 262 H 07/01/24 12:27: POC Glucose 318 H Charges/Coding Visit Charges Inpatient E&M: 93183 Subs Hosp L2
[2024-07-01 12:45] LABS: Bedside Glucose 318 mg/dL (74-106)
[2024-07-01] MEDS: Insulin Lispro 100 UNIT/ML INSULN.PEN 6 UNIT SC ×2 (15:48→18:01)
[2024-07-01 18:16] LABS: Bedside Glucose 200 mg/dL (74-106)
[2024-07-01] MEDS: Albuterol 2.5 MG/3 ML VIAL.NEB. INHALATION (19:32)
[2024-07-01] MEDS: Atorvastatin Calcium 10 MG Tablet 5 MG PO (22:25)
[2024-07-01] MEDS: Ceftriaxone 1 GM/50 ML BAG IV (22:26)
[2024-07-01 22:48] LABS: Bedside Glucose 133 mg/dL (74-106)
[2024-07-02 03:32] VITALS: BP 148/100; PULSE 89; RESP 18; TEMP 36.6; O2SAT 94
[2024-07-02 06:00] VITALS: BMI 29.5
[2024-07-02] MEDS: Levothyroxine 100 MCG Tablet PO (06:16)
[2024-07-02 07:45] LABS: Bedside Glucose 241 mg/dL (74-106)
[2024-07-02 08:02] VITALS: PULSE 99; RESP 18; O2SAT 95
[2024-07-02] MEDS: Budesonide Respules 0.5 MG/2 ML AMPUL.NEB. INHALATION (08:02)
[2024-07-02 08:35] VITALS: BP 141/68; PULSE 92; RESP 18; TEMP 36.7; O2SAT 95
[2024-07-02] MEDS: Insulin Lispro 100 UNIT/ML INSULN.PEN SC ×2 (08:41→11:53)
[2024-07-02] MEDS: Insulin Lispro 100 UNIT/ML INSULN.PEN 6 UNIT SC ×2 (08:41→11:53)
[2024-07-02] MEDS: Insulin Glargine-YFGN 100 UNIT/ML Pen 18 UNIT SC (08:43)
[2024-07-02 08:46] VITALS: PULSE 92
[2024-07-02] MEDS: Metoprolol(XL)Succ 25 MG Tablet PO (08:46)
[2024-07-02] MEDS: Rivaroxaban 20 MG Tablet PO (08:46)
[2024-07-02] MEDS: Lisinopril 10 MG Tablet PO (08:46)
[2024-07-02] MEDS: amLODIPine 5 MG Tablet PO (08:46)
[2024-07-02] MEDS: Ferrous Sulfate 325 MG Tablet PO (08:47)
[2024-07-02] MEDS: Magnesium Chloride 64 MG Delay Rel.Tablet 128 MG PO (08:47)
[2024-07-02] MEDS: Glucerna Shake 120 ML LIQUID PO (08:53)
[2024-07-02] MEDS: Menthol/Lanolin/Calamine/Znox 113 GM Tube 1 APPLIC TOPICAL ×2 (08:53→14:35)
[2024-07-02] MEDS: Tolterodine Tartrate 2 MG CAP.SA PO (08:53)
--- NOTE | 2024-07-02 08:55 | CASEMGMT ---
Addendum entered by Lori Muñoz 07/02/24 13:36: [facility] has accepted and is patients foc. [facility] asked to cancel referral. Lori Muñoz DC Planning Asst. Addendum entered by Lori Muñoz 07/02/24 10:24: [facility] has declined. updated. Lori Muñoz DC Planning Asst. Original Note: Discharge Planning SW sent referrals to [facility], [facility], and [facility]. Updates sent to all. [facility] has accepted. Lori Muñoz DC Planning Asst.
[2024-07-02 09:30] VITALS: O2SAT 97
--- NOTE | 2024-07-02 09:44 | CASEMGMT ---
Social Work- SW met with pt spouse to provide updates on referral status. BRIANNE Steele
--- NOTE | 2024-07-02 12:13 | CASEMGMT ---
KRISTINE CM into pt room per request of DC clinical services assistant, pt reports she used to have an insulin pump but no longer does.
[2024-07-02 12:23] LABS: Bedside Glucose 195 mg/dL (74-106)
--- NOTE | 2024-07-02 13:00 | PN.HOSP_ITS ---
Reason for Visit Reason for Visit: Diagnoses Urinary tract infection, site not specified (06/29/24) Subjective Subjective Patient was seen and examined today, she complained of a cough, was in the room at the time my examination. Patient does not appear in any distress Objective Data Objective Data Vital Signs: Vital Signs Temp Pulse Resp BP Pulse Ox O2 Del Method O2 Flow Rate 98.0 F 92 18 141/68 H 97 Nasal Cannula 2 07/02/24 08:35 07/02/24 08:46 07/02/24 08:35 07/02/24 08:35 07/02/24 09:30 07/02/24 08:35 07/02/24 09:30 Oxygen Flow Rate (L/min) 2 Oxygen Delivery Method Nasal Cannula Weight: 80.4 kg Body Mass Index (BMI) 29.5 Intake & Output: Intake and Output for Last 24 Hours 06/30/24 07/01/24 07/02/24 23:59 23:59 23:59 Intake Total 600 / 600 250 / 250 300 / 300 Output Total 700 / 700 800 / 800 400 / 400 Balance -100 / -100 -550 / -550 -100 / -100 Lab / Micro Data 07/01/24 05:55 07/01/24 05:55 Labs: Laboratory Results - last 24 hr 07/01/24 17:54: POC Glucose 200 H 07/01/24 22:21: POC Glucose 133 H 07/02/24 07:28: POC Glucose 241 H 07/02/24 11:51: POC Glucose 195 H Physical Exam Const alert, no apparent distress and average body habitus General Appearance: cooperative, well kempt and well developed Orientation / Consciousness: awake and oriented to person HEENT normocephalic, head/scalp atraumatic and moist oral mucous membranes Eyes PERRL, EOMs intact bilaterally and conjunctivae normal Neck supple, no JVD, thyroid normal and no carotid bruits General: trachea midline Resp normal respiratory effort, no retractions, no use of accessory muscles and clear to auscultation bilaterally Auscultation: Negative for rales, rhonchi or wheezes Cardio regular rate, regular rhythm, S1 normal heart sound, S2 normal heart sound, no murmurs, no rub and no gallops GI normal to inspection, nondistended, normoactive bowel sounds, soft to palpation, non-tender and non-distended Extremity no clubbing, cyanosis or edema Skin no rashes or lesions noted General Skin Exam: no breakdown Neuro CN's II-XII intact bilaterally, moves all extremities, no focal motor deficits and no sensory deficits noted Sensorium / Orientation: awake, alert and oriented to person Speech: speech normal Psych Psych Narrative: Patient is alert but confused Assessment & Plan Assessment/Plan (1) UTI (urinary tract infection): PLAN: Plan 1. Encephalopathy due to acute cystitis on a backdrop of chronic dementia and debility-PT and OT will continue to work with the patient, we are awaiting approval for patient go to an [facility] facility for inpatient rehab services. #2 chronic hypoxic respiratory failure-patient is currently on 2 L of oxygen via nasal cannula, pulse ox will be monitored #3 acute cystitis-E. coli-it appears that the patient has completed a course of antibiotics at this time #4 type 2 diabetes-blood sugars will be monitored, sliding scale insulin will be administered as needed #5 hypothyroidism-patient is on Synthroid #6 chronic obstructive pulmonary disease-complicates care, management, recovery, and prognosis #7 chronic use of anticoagulant-patient has a past history of paroxysmal A-fib and also history of pulmonary emboli in the past, she remains on Xarelto Total clinical time spent by myself addressing the patient's medical issues, reviewing all of her data, and collaborating with patient's care team: 35 minutes Charges/Coding Visit Charges Inpatient E&M: 78530 Subs Hosp L2
--- NOTE | 2024-07-02 13:01 | CASEMGMT ---
Updated Clara at [facility] that plan at al for pt is SNF. Email to [facility] to verify oxygen rx.
--- NOTE | 2024-07-02 13:37 | TREXTCAR_ITS ---
Diet Diet Order/Speech Therapy: 06/29/24 22:12 Diet: Consistent Carb - Calorie Controlled Food consistency:: Regular Liquid Consistency:: Regular/Thin How many daily calories?: 1600 calorie Routine Orders/Code Status O2 Liters per Minute: 2 O2 Frequency: Continuous Keep PO Greater than or Equal to (%): 90 Code Status: Full Code Wound(s) left cheek: Wound Type: Laceration Left garcia: Wound Type: Abrasion Therapies Weight Bearing: Full weight bearing Physical Therapy: Eval and Treat Occupational Therapy: Eval and Treat Problem/Diagnosis (1) UTI (urinary tract infection): Status: Acute Code(s): N39.0 - Urinary tract infection, site not specified Plan 1. Encephalopathy due to acute cystitis on a backdrop of chronic dementia and debility-PT and OT will continue to work with the patient, we are awaiting approval for patient go to an [facility] care facility for inpatient rehab services. #2 chronic hypoxic respiratory failure-patient is currently on 2 L of oxygen via nasal cannula, pulse ox will be monitored #3 acute cystitis-E. coli-it appears that the patient has completed a course of antibiotics at this time #4 type 2 diabetes-blood sugars will be monitored, sliding scale insulin will be administered as needed #5 hypothyroidism-patient is on Synthroid #6 chronic obstructive pulmonary disease-complicates care, management, recovery, and prognosis #7 chronic use of anticoagulant-patient has a past history of paroxysmal A-fib and also history of pulmonary emboli in the past, she remains on Xarelto Total clinical time spent by myself addressing the patient's medical issues, reviewing all of her data, and collaborating with patient's care team: 35 minutes Allergies/Procedures Done in Hospital Allergies ciprofloxacin (From Cipro) Allergy (Intermediate, Verified 06/29/24 13:46) hives Sulfa (Sulfonamide Antibiotics) Allergy (Intermediate, Verified 06/29/24 13:46) hives Penicillins Allergy (Verified 06/29/24 13:46) Rash Procedures: None Type of Care/Length of Stay Estimated LOS: Convalescent Care Less Than 30 days Type of Care Needed: Skilled Rehab Potential: Good Prognosis: Good Additional Orders/Day of Discharge H&P will serve as current which was dated: 06/29/24 Day of Discharge: 07/02/24 Dietary and Speech Recommendations Dietitian Recommendations/Changes: Change diet to 1600 flores Cardiac Continue 4 oz glucerna shake 4x/day with medpass Adjust ONS at time of follow up pending po intake/wt trends Discharge Plan Admission Admit Date/Time: 06/29/24 19:32 Primary Reason for Your Visit: Encephalopathy, debility Attending Provider: Javy Khan Primary Care Provider: Shena Jeffers Consulting Providers: Roxanne Saxena; Ronaldo Hickey Discharge Orders/Prescriptions Prescriptions: New acetaminophen 325 mg Tablet 650 mg PO Q4H PRN PRN (Reason: Fever, pain 1-08/02) Qty: 0 0RF albuterol sulfate 2.5 mg /3 mL (0.083 %) Solution For Nebulization 2.5 mg inhalation Q2H PRN PRN (Reason: Dyspnea, wheezing) Qty: 0 0RF dextromethorphan-guaifenesin 10-100 mg/5 mL Syrup 10 ml PO Q6H PRN PRN (Reason: Cough) Qty: 0 0RF amlodipine 5 mg Tablet 5 mg PO DAILY Qty: 0 0RF budesonide 0.5 mg/2 mL Suspension For Nebulization 0.5 mg inhalation BID.RT Qty: 0 0RF Glucerna 1.2 Flores 0.06-1.2 gram-kcal/mL Liquid 120 ml PO 4X/DAY Qty: 0 0RF insulin lispro [Humalog KwikPen Insulin] 100 unit/mL Insulin Pen See Protocol subcut ACHS Qty: 0 0RF Protocol: 4. Sliding Scale Insulin High-Med Dosing Condition: 150-199 mg/dl = 2 units Condition: 200-259 mg/dl = 4 units Condition: 260-324 mg/dl = 6 units Condition: 325-374 mg/dl = 8 units Condition: 375-409 mg/dl = 10 units Condition: 410-449 mg/dl = 11 units Condition: Greater than 449 call physician Protocol Text: Suggested for: - Patients on Total Daily Insulin Dose of 56-80 units - Patient who are known to be insulin resistant or septic HIGH MEDIUM DOSING ALGORITHM insulin glargine-yfgn 100 unit/mL (3 mL) Insulin Pen 18 unit subcut DAILY Qty: 0 0RF insulin lispro [Humalog KwikPen Insulin] 100 unit/mL Insulin Pen 6 unit subcut TIDAC Qty: 0 0RF ferrous sulfate [FeroSul] 325 mg (65 mg iron) Tablet 325 mg PO DAILYCM Qty: 0 0RF levothyroxine 100 mcg Tablet 100 mcg PO MoTuWeThFrSa@0600 Qty: 0 0RF lisinopril 10 mg Tablet 10 mg PO DAILY Qty: 0 0RF levothyroxine 150 mcg Tablet 150 mcg PO Alston@0600 Qty: 0 0RF magnesium chloride [Mag 64] 64 mg Tablet,Delayed Release (Dr/Ec) 128 mg PO DAILY Qty: 0 0RF melatonin 3 mg Tablet 3 mg PO QHS PRN PRN (Reason: Insomnia) Qty: 0 0RF menthol-zinc oxide [Calmoseptine] 0.44-20.6 % Ointment 1 applic topical 4X/DAY Qty: 0 0RF Protocol: *Topical Application Instructions APPLICATION INSTRUCTIONS: apply to affected region tolterodine 2 mg Capsule,Extended Release 24hr 2 mg PO DAILY Qty: 0 0RF sennosides-docusate sodium [Stimulant Laxative Plus] 8.6-50 mg Tablet 2 tab PO BID PRN PRN (Reason: Constipation) Qty: 0 0RF metoprolol succinate 25 mg Tablet Extended Release 24 Hr 25 mg PO DAILY Qty: 0 0RF Xarelto 20 mg Tablet 20 mg PO DAILY Qty: 0 0RF atorvastatin 10 mg Tablet 5 mg PO QHS Qty: 0 0RF Discontinued Xarelto 20 mg tablet 20 mg PO DAILY oxybutynin chloride 10 mg tablet extended release 24hr 10 mg PO DAILY Patient Comments: take 1 tablet by mouth once daily simvastatin 10 mg tablet 10 mg PO DAILY insulin aspart U-100 [Novolog U-100 Insulin aspart] 100 unit/mL solution subcut Patient Comments: use as directed ACCORDING TO SLIDING SCALE - MAX OF 100 UNITS PER DAY HAS IT WRITTEN DOWN WILL NEED TO GET BOYFRIEND TO BRING IT IN levothyroxine 100 mcg tablet 100 mcg PO .qd, 1 1/2 every Rx Instructions: @0200 insulin degludec [Tresiba U-100 Insulin] 100 unit/mL solution 10 unit subcut QHS No Action amlodipine-benazepril 5-10 mg capsule 1 cap PO DAILY magnesium 200 mg tablet 400 mg PO DAILY cholecalciferol (vitamin D3) [D3 DOTS] 50 mcg (2,000 unit) tablet 4,000 unit PO .COMPLEX Rx Instructions: 4,000 units orally every other day; iron, carbonyl 45 mg tablet 45 mg PO DAILY Qty: 30 0RF Spiriva Respimat 2.5 mcg/actuation mist 2 inh INHALATION DAILY Referrals / Follow Up: Shena Jeffers DO [Primary Care Provider] - Disposition Disposition (needs filled in before D/C Order can be placed): Custodial Facility
--- NOTE | 2024-07-02 13:47 | PCM.DC.SUM ---
Providers Date of Admission: 06/29/24 Date of Discharge: 07/02/24 Primary Care Physician: Dr. Shena Jeffers DO Reason For Visit: UTI, ADULT FTT/DEBILITY Diagnosis Discharge Diagnosis (1) UTI (urinary tract infection): Status: Acute Code(s): N39.0 - Urinary tract infection, site not specified Plan 1. Encephalopathy due to acute cystitis on a backdrop of chronic dementia and debility-PT and OT will continue to work with the patient, we are awaiting approval for patient go to an extended care facility for inpatient rehab services. #2 chronic hypoxic respiratory failure-patient is currently on 2 L of oxygen via nasal cannula, pulse ox will be monitored #3 acute cystitis-E. coli-it appears that the patient has completed a course of antibiotics at this time #4 type 2 diabetes-blood sugars will be monitored, sliding scale insulin will be administered as needed #5 hypothyroidism-patient is on Synthroid #6 chronic obstructive pulmonary disease-complicates care, management, recovery, and prognosis #7 chronic use of anticoagulant-patient has a past history of paroxysmal A-fib and also history of pulmonary emboli in the past, she remains on Xarelto Total clinical time spent by myself addressing the patient's medical issues, reviewing all of her data, and collaborating with patient's care team: 35 minutes Medications at Discharge Home Medications amlodipine 5 mg-benazepril 10 mg capsule 1 cap PO DAILY blood pressure 09/08/21 cholecalciferol (vitamin D3) 50 mcg (2,000 unit) tablet (D3 DOTS) 4,000 unit PO .COMPLEX vitamin 06/29/23 magnesium 200 mg tablet 400 mg PO DAILY supplement 06/29/23 iron, carbonyl 45 mg tablet 45 mg PO DAILY #30 tabs 06/16/24 tiotropium bromide 2.5 mcg/actuation mist for inhalation (Spiriva Respimat) 2 inh inhalation DAILY 06/29/24 acetaminophen 325 mg tablet 650 mg (2 x 325 mg) PO Q4H PRN PRN Fever, pain 1-10 #0 tabs 07/02/24 albuterol sulfate 2.5 mg/3 mL (0.083 %) solution for nebulization 2.5 mg (3 mL) inhalation Q2H PRN PRN Dyspnea, wheezing #0 mL 07/02/24 amlodipine 5 mg tablet 5 mg PO DAILY #0 tabs 07/02/24 atorvastatin 10 mg tablet 5 mg (1/2 x 10 mg) PO QHS #0 tabs 07/02/24 budesonide 0.5 mg/2 mL suspension for nebulization 0.5 mg (2 mL) inhalation BID.RT #0 mL 07/02/24 dextromethorphan-guaifenesin 10 mg-100 mg/5 mL oral syrup 10 ml PO Q6H PRN PRN Cough #0 mL 07/02/24 ferrous sulfate 325 mg (65 mg iron) tablet (FeroSul) 325 mg PO DAILYCM #0 tabs 07/02/24 insulin glargine-yfgn 100 unit/mL (3 mL) subcutaneous pen 18 unit (0.18 mL) subcut DAILY #0 mL 07/02/24 insulin lispro 100 unit/mL subcutaneous pen (Humalog KwikPen (U-100) Insulin) 6 unit (0.06 mL) subcut TIDAC #0 mL 07/02/24 insulin lispro 100 unit/mL subcutaneous pen (Humalog KwikPen (U-100) Insulin) See Protocol subcut ACHS #0 mL 07/02/24 levothyroxine 100 mcg tablet 100 mcg PO MoTuWeThFrSa@0600 #0 tabs 07/02/24 levothyroxine 150 mcg tablet 150 mcg PO Alston@0600 #0 tabs 07/02/24 lisinopril 10 mg tablet 10 mg PO DAILY #0 tabs 07/02/24 magnesium chloride 64 mg (magnesium chloride) tablet,delayed release (Mag 64) 128 mg (2 x 64 mg) PO DAILY #0 tabs 07/02/24 melatonin 3 mg tablet 3 mg PO QHS PRN PRN Insomnia #0 tabs 07/02/24 menthol 0.44 %-zinc oxide 20.6 % topical ointment (Calmoseptine) 1 applic topical 4X/DAY #0 grams 07/02/24 metoprolol succinate 25 mg tablet,extended release 24 hr 25 mg PO DAILY #0 tabs 07/02/24 nutrition tx glu intol,lac-free,soy-fiber 0.06 gram-1.2 kcal/mL liquid (Glucerna 1.2 Remy) 120 ml PO 4X/DAY #0 mL 07/02/24 rivaroxaban 20 mg tablet (Xarelto) 20 mg PO DAILY #0 tabs 07/02/24 sennosides 8.6 mg-docusate sodium 50 mg tablet (Stimulant Laxative Plus) 2 tab PO BID PRN PRN Constipation #0 tabs 07/02/24 tolterodine 2 mg capsule,extended release 24 hr 2 mg PO DAILY #0 caps 07/02/24 Hospital Course Operations None Procedures None Summary of Care Provided Minutes Spent on Discharge: 32 Hospital Course: This 78-year-old white female was seen in the emergency room at [facility] with generalized weakness, she had recently been diagnosed with a urinary tract infection and was on antibiotics. Patient had increasing problems ambulating over the past few days however and was brought to the emergency room for evaluation. Patient had a history of dementia and chronic respiratory failure and was on chronic oxygen at home. Evaluation included labs which showed normal white blood cell count, urinalysis was obtained and did not show evidence of infection. Chest x-ray was performed and showed no evidence of pneumonia. Due to the problems taking care of the patient at home by her significant other, patient was unable to be discharged home and the patient was admitted to [place] [id number] and seen by PT and OT. Patient was approved for transfer to a care home facility for short-term rehab services. On 07/02/2024, patient was seen and examined: On examination she appeared her stated age, she exhibited confusion, she does not appear to be in any distress. Vital signs as documented. Skin warm and dry and without overt rashes. Neck without JVD, thyroid appears normal, trachea is midline, neck is supple. Lungs clear, normal air movement was noted. Heart exam notable for regular rhythm, normal sounds and absence of murmurs, rubs or gallops. Abdomen unremarkable and without evidence of organomegaly, masses, or abdominal aortic enlargement, bowel sounds are present in all 4 quadrants, no abdominal tenderness was noted. Extremities nonedematous, no cyanosis was noted, no clubbing was noted. Neuro: Cranial nerves II through XII are grossly intact, no focal motor deficits were noted, sensation to light touch and pinprick is intact, motor exam 5/5 throughout. Psych: Patient is alert, she was oriented as to self only On 07/02/2024, patient was felt to be stable for discharge to a care home facility for further care Weight / BMI Weight Weight: 80.4 kg Body Mass Index (BMI) 29.5 ABG / Lab / Microbiology Data 07/01/24 05:55 07/01/24 05:55 Laboratory: Laboratory Results - last 24 hr 07/01/24 17:54: POC Glucose 200 H 07/01/24 22:21: POC Glucose 133 H 07/02/24 07:28: POC Glucose 241 H 07/02/24 11:51: POC Glucose 195 H Meaningful Use Info Meaningful Use Meaningful Use Diagnoses (Choose all that apply): None applicable Ischemic Stroke Statin Dosing Therapy Reference: STATIN DOSE THERAPY REFERENCE: * Patients > 75 years receive moderate or high dose statin therapy. * Patients 75 years or YOUNGER should receive HIGH intensity statin dose unless contraindicated. You will be required to document reason for non-treatment if statin daily dose does not meet guidelines. HIGH DOSE STATIN THERAPY DAILY Atorvastatin > than or = to 40 mg Rosuvastatin > than or = to 20 mg Amlodipine + Atorvastatin > than or = to 2.5/40 mg Ezetimibe + Simvastatin 10/80 mg Simvastatin 80mg Discharge Plan Admission Admit Date/Time: 06/29/24 19:32 Primary Reason for Your Visit: Encephalopathy, debility Attending Provider: Javy Khan Primary Care Provider: Shena Jeffers Consulting Providers: Roxanne Saxena; Ronaldo Hickey Discharge Orders/Prescriptions Prescriptions: New acetaminophen 325 mg Tablet 650 mg PO Q4H PRN PRN (Reason: Fever, pain 1-10/10) Qty: 0 0RF albuterol sulfate 2.5 mg /3 mL (0.083 %) Solution For Nebulization 2.5 mg inhalation Q2H PRN PRN (Reason: Dyspnea, wheezing) Qty: 0 0RF dextromethorphan-guaifenesin 10-100 mg/5 mL Syrup 10 ml PO Q6H PRN PRN (Reason: Cough) Qty: 0 0RF amlodipine 5 mg Tablet 5 mg PO DAILY Qty: 0 0RF budesonide 0.5 mg/2 mL Suspension For Nebulization 0.5 mg inhalation BID.RT Qty: 0 0RF Glucerna 1.2 Remy 0.06-1.2 gram-kcal/mL Liquid 120 ml PO 4X/DAY Qty: 0 0RF insulin lispro [Humalog KwikPen Insulin] 100 unit/mL Insulin Pen See Protocol subcut ACHS Qty: 0 0RF Protocol: 4. Sliding Scale Insulin High-Med Dosing Condition: 150-199 mg/dl = 2 units Condition: 200-259 mg/dl = 4 units Condition: 260-324 mg/dl = 6 units Condition: 325-374 mg/dl = 8 units Condition: 375-409 mg/dl = 10 units Condition: 410-449 mg/dl = 11 units Condition: Greater than 449 call physician Protocol Text: Suggested for: - Patients on Total Daily Insulin Dose of 56-80 units - Patient who are known to be insulin resistant or septic HIGH MEDIUM DOSING ALGORITHM insulin glargine-yfgn 100 unit/mL (3 mL) Insulin Pen 18 unit subcut DAILY Qty: 0 0RF insulin lispro [Humalog KwikPen Insulin] 100 unit/mL Insulin Pen 6 unit subcut TIDAC Qty: 0 0RF ferrous sulfate [FeroSul] 325 mg (65 mg iron) Tablet 325 mg PO DAILYCM Qty: 0 0RF levothyroxine 100 mcg Tablet 100 mcg PO MoTuWeThFrSa@0600 Qty: 0 0RF lisinopril 10 mg Tablet 10 mg PO DAILY Qty: 0 0RF levothyroxine 150 mcg Tablet 150 mcg PO Alston@0600 Qty: 0 0RF magnesium chloride [Mag 64] 64 mg Tablet,Delayed Release (Dr/Ec) 128 mg PO DAILY Qty: 0 0RF melatonin 3 mg Tablet 3 mg PO QHS PRN PRN (Reason: Insomnia) Qty: 0 0RF menthol-zinc oxide [Calmoseptine] 0.44-20.6 % Ointment 1 applic topical 4X/DAY Qty: 0 0RF Protocol: *Topical Application Instructions APPLICATION INSTRUCTIONS: apply to affected region tolterodine 2 mg Capsule,Extended Release 24hr 2 mg PO DAILY Qty: 0 0RF sennosides-docusate sodium [Stimulant Laxative Plus] 8.6-50 mg Tablet 2 tab PO BID PRN PRN (Reason: Constipation) Qty: 0 0RF metoprolol succinate 25 mg Tablet Extended Release 24 Hr 25 mg PO DAILY Qty: 0 0RF Xarelto 20 mg Tablet 20 mg PO DAILY Qty: 0 0RF atorvastatin 10 mg Tablet 5 mg PO QHS Qty: 0 0RF Discontinued Xarelto 20 mg tablet 20 mg PO DAILY oxybutynin chloride 10 mg tablet extended release 24hr 10 mg PO DAILY Patient Comments: take 1 tablet by mouth once daily simvastatin 10 mg tablet 10 mg PO DAILY insulin aspart U-100 [Novolog U-100 Insulin aspart] 100 unit/mL solution subcut Patient Comments: use as directed ACCORDING TO SLIDING SCALE - MAX OF 100 UNITS PER DAY HAS IT WRITTEN DOWN WILL NEED TO GET BOYFRIEND TO BRING IT IN levothyroxine 100 mcg tablet 100 mcg PO .qd, 1 1/2 every Rx Instructions: @0200 insulin degludec [Tresiba U-100 Insulin] 100 unit/mL solution 10 unit subcut QHS No Action amlodipine-benazepril 5-10 mg capsule 1 cap PO DAILY magnesium 200 mg tablet 400 mg PO DAILY cholecalciferol (vitamin D3) [D3 DOTS] 50 mcg (2,000 unit) tablet 4,000 unit PO .COMPLEX Rx Instructions: 4,000 units orally every other day; iron, carbonyl 45 mg tablet 45 mg PO DAILY Qty: 30 0RF Spiriva Respimat 2.5 mcg/actuation mist 2 inh INHALATION DAILY Referrals / Follow Up: Shena Jeffers DO [Primary Care Provider] - Disposition Disposition (needs filled in before D/C Order can be placed): Long Term Facility Charges/Coding Visit Charges Inpatient E&M: 51305 Disch Hosp >30min
--- NOTE | 2024-07-02 13:58 | CASEMGMT ---
Social Work Physician reports pt is ready for discharge today.? 7000 convalescent form completed in [facility]. SW met with pt and they are agreeable to discharge plan as stated above.? DCA and bedside nurse notified of discharge. Disposition:?[facility], skilled level of care under convalescent stay. BRIANNE Steele
--- NOTE | 2024-07-02 14:22 | PHA.DC_ITS ---
Pharmacy [place] Med Reconciliation Pharmacy Service has performed discharge medication reconciliation for this patient. The patient's discharge medication list was reviewed for discrepancies and discrepancies were resolved. Medications at Discharge Home Medications amlodipine 5 mg-benazepril 10 mg capsule 1 cap PO DAILY blood pressure 09/08/21 cholecalciferol (vitamin D3) 50 mcg (2,000 unit) tablet (D3 DOTS) 4,000 unit PO .COMPLEX vitamin 06/29/23 magnesium 200 mg tablet 400 mg PO DAILY supplement 06/29/23 iron, carbonyl 45 mg tablet 45 mg PO DAILY #30 tabs 06/16/24 tiotropium bromide 2.5 mcg/actuation mist for inhalation (Spiriva Respimat) 2 inh inhalation DAILY 06/29/24 acetaminophen 325 mg tablet 650 mg (2 x 325 mg) PO Q4H PRN PRN Fever, pain 1- 08/02 #0 tabs 07/02/24 albuterol sulfate 2.5 mg/3 mL (0.083 %) solution for nebulization 2.5 mg (3 mL) inhalation Q2H PRN PRN Dyspnea, wheezing #0 mL 07/02/24 amlodipine 5 mg tablet 5 mg PO DAILY #0 tabs 07/02/24 atorvastatin 10 mg tablet 5 mg (1/2 x 10 mg) PO QHS #0 tabs 07/02/24 budesonide 0.5 mg/2 mL suspension for nebulization 0.5 mg (2 mL) inhalation BID.RT #0 mL 07/02/24 dextromethorphan-guaifenesin 10 mg-100 mg/5 mL oral syrup 10 ml PO Q6H PRN PRN Cough #0 mL 07/02/24 ferrous sulfate 325 mg (65 mg iron) tablet (FeroSul) 325 mg PO DAILYCM #0 tabs 07/02/24 insulin glargine-yfgn 100 unit/mL (3 mL) subcutaneous pen 18 unit (0.18 mL) subcut DAILY #0 mL 07/02/24 insulin lispro 100 unit/mL subcutaneous pen (Humalog KwikPen (U-100) Insulin) 6 unit (0.06 mL) subcut TIDAC #0 mL 07/02/24 insulin lispro 100 unit/mL subcutaneous pen (Humalog KwikPen (U-100) Insulin) See Protocol subcut ACHS #0 mL 07/02/24 levothyroxine 100 mcg tablet 100 mcg PO MoTuWeThFrSa@0600 #0 tabs 07/02/24 levothyroxine 150 mcg tablet 150 mcg PO Alston@0600 #0 tabs 07/02/24 lisinopril 10 mg tablet 10 mg PO DAILY #0 tabs 07/02/24 magnesium chloride 64 mg (magnesium chloride) tablet,delayed release (Mag 64) 128 mg (2 x 64 mg) PO DAILY #0 tabs 07/02/24 melatonin 3 mg tablet 3 mg PO QHS PRN PRN Insomnia #0 tabs 07/02/24 menthol 0.44 %-zinc oxide 20.6 % topical ointment (Calmoseptine) 1 applic topical 4X/DAY #0 grams 07/02/24 metoprolol succinate 25 mg tablet,extended release 24 hr 25 mg PO DAILY #0 tabs 07/02/24 nutrition tx glu intol,lac-free,soy-fiber 0.06 gram-1.2 kcal/mL liquid (Glucerna 1.2 Remy) 120 ml PO 4X/DAY #0 mL 07/02/24 rivaroxaban 20 mg tablet (Xarelto) 20 mg PO DAILY #0 tabs 07/02/24 sennosides 8.6 mg-docusate sodium 50 mg tablet (Stimulant Laxative Plus) 2 tab PO BID PRN PRN Constipation #0 tabs 07/02/24 tolterodine 2 mg capsule,extended release 24 hr 2 mg PO DAILY #0 caps 07/02/24
--- NOTE | 2024-07-02 14:25 | CASEMGMT ---
Discharge Planning Discharge orders, signed med list, and transport time sent to [facility] via [facility]. Physicians (Jeanine) will transport patient by cot at 3p. Nursing, SW, and patient updated. Lori Muñoz DC Planning Asst.
[2024-07-02 14:34] VITALS: BP 113/62; PULSE 100; RESP 18; TEMP 36.9; O2SAT 94
== END 2024-07-02 15:45 | disposition skilled nursing facility (03) | DRG 689 ==
LOC: ED 19:25 → MS3 21:10
PROVIDERS: Internal Medicine; Admitting Provider Family Medicine; Emergency Provider Emergency Medicine; PCP Internal Medicine; Visit Provider Internal Medicine
DX: N30.00 Acute cystitis without hematuria (principal); G93.41 Metabolic encephalopathy; J96.11 Chronic respiratory failure with hypoxia; I13.0 Hypertensive heart and chronic kidney disease with heart failure and stage 1 through stage 4 chronic kidney disease, or unspecified chronic kidney disease; I50.32 Chronic diastolic (congestive) heart failure; R62.7 Adult failure to thrive; E10.22 Type 1 diabetes mellitus with diabetic chronic kidney disease; D64.9 Anemia, unspecified; B96.20 Unspecified Escherichia coli [E. coli] as the cause of diseases classified elsewhere; N18.30 Chronic kidney disease, stage 3 unspecified; J44.9 Chronic obstructive pulmonary disease, unspecified; F03.90 Unspecified dementia, unspecified severity, without behavioral disturbance, psychotic disturbance, mood disturbance, and anxiety; E03.9 Hypothyroidism, unspecified; I48.0 Paroxysmal atrial fibrillation; E10.65 Type 1 diabetes mellitus with hyperglycemia; Z79.4 Long term (current) use of insulin; E78.5 Hyperlipidemia, unspecified; R53.81 Other malaise; Z79.899 Other long term (current) drug therapy; Z96.41 Presence of insulin pump (external) (internal); Z86.718 Personal history of other venous thrombosis and embolism; Z87.891 Personal history of nicotine dependence; Z79.01 Long term (current) use of anticoagulants; Z68.29 Body mass index [BMI] 29.0-29.9, adult
CPT/HCPCS: 36415; 71045; 80048; 80053; 81001; 82550; 82962; 84484; 85025; 93005; 94640; 94668; 97110; 97162; 97166; 97530; 97535; 97802; 99284; J7030; A4216

== ENCOUNTER 2024-09-10 15:30 | Inpatient (IN) | payer MEDICARE, OTHER, SELFPAY ==
[2024-09-10] VITALS (13 sets, daily range): BP systolic 116–152; BP diastolic 46–85; PULSE 90–110; RESP 16–32; TEMP 36.6–37.3; O2SAT 90–99; BMI 29.9; BMI 28.4
--- NOTE | 2024-09-10 15:47 | EDS_ITS ---
<Statement entered by Marcus Mcnela DO - 09/10/24 21:45> Patient was seen and examined with physician assistant Olivera All components of the history and physical confirmed and agreed. History of present illness and physical exam: Patient is a 79-year-old female with past medical history of hypothyroidism, dementia, hypertension, type 1 diabetes, COPD chronically on 2 L nasal cannula who presents to the emergency department with a concern for UTI and generalized weakness. Patient states that she has had odorous urine since yesterday. Her significant other at bedside states that she has been more weak and was unable to get up off the toilet today which was ultimately what brought him here with the concern for urinary tract infection. She states that she recently got out of a nursing facility for rehab after spending 40 days there. Review of systems: Agree with above Physical exam: Agree with above MDM Patient is a 79-year-old female who presents to the emergency department with chief complaint of generalized weakness and concern for urinary tract infection. Patient will have a workup performed here on the differential diagnose includes but not limited to UTI, ACS, pneumonia. Once workup is obtained reviewed she will be reevaluated. Patient's CBC reviewed and was significant for leukocytosis of 13,000, hemoglobin was 9.2, platelet count noted be 445. Patient sodium was noted 134, potassium normal at 4.6, creatinine was 1.35. Patient's lactic acid normal at 0.7, glucose was 178. Patient troponin was noted to be 9 and her EKG was reviewed and independently interpreted by myself. Patient's urinalysis was significant for urinary tract infection with 500 leukocyte esterase greater than 100 white cells with 4+ bacteria this was sent for culture and she was given Rocephin. At this point time do believe the patient will warrant admission as she is unable to stand and transfer at her baseline and her urinary tract infection and therefore case will be discussed with hospitalist. Patient's case was discussed with hospitalist by physician assistant Olivera who accept the patient for admission Dr. Velázquez. Patient was notified of with all question concerns answered they are agreeable with this plan. Final impression: Urinary tract infection Generalized weakness Disposition: Patient will be admitted for further evaluation management Supervising attending attestation: Marcus Mcneal D.O. HPI History of Present Illness Chief Complaint: Complaint Narrative Narrative: Patient presenting today due to concerns for UTI. She reports that she has had odorous urine since yesterday. She has had this happen before and does have a history of UTIs. She is here with her significant other who reports that she has been more weak since yesterday which is consistent with her having a UTI. She did recently come home from a SNF about a week ago after spending 40 days there. She had been there for generalized weakness and difficulty with ambulating. She still is unable to walk despite being in rehab but is able to stand and pivot. However, today she was having increasing difficulty with this. She has a history of COPD on 2 L O2 at baseline, A-fib, HTN, DM. 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 Memory loss HLD (hyperlipidemia) HTN (hypertension) Pulmonary embolism, bilateral Smoker COPD (chronic obstructive pulmonary disease) Home Medications ?Medication ?Instructions ?Recorded ?Last Taken ?Type amlodipine 5 mg-benazepril 10 mg 1 cap PO DAILY blood pressure 09/08/21 09/07/22 History capsule cholecalciferol (vitamin D3) 50 4,000 unit PO .COMPLEX vitamin 06/29/23 01/11/24 History mcg (2,000 unit) tablet (D3 DOTS) magnesium 200 mg tablet 400 mg PO DAILY supplement 06/29/23 Unknown History iron, carbonyl 45 mg tablet 45 mg PO DAILY ANEMIA #30 tabs 06/16/24 Unknown Rx tiotropium bromide 2.5 2 inh inhalation DAILY 06/29/24 Unknown History mcg/actuation mist for inhalation (Spiriva Respimat) acetaminophen 325 mg tablet 650 mg (2 x 325 mg) PO Q4H PRN PRN 07/02/24 Unknown Rx Fever, pain 1-1010 #0 tabs albuterol sulfate 2.5 mg/3 mL 2.5 mg (3 mL) inhalation Q2H PRN 07/02/24 Unknown Rx (0.083 %) solution for nebulization PRN Dyspnea, wheezing #0 mL ferrous sulfate 325 mg (65 mg 325 mg PO DAILYCM #0 tabs 07/02/24 Unknown Rx iron) tablet (FeroSul) levothyroxine 100 mcg tablet 100 mcg PO MoTuWeThFrSa@0600 #0 07/02/24 Unknown Rx tabs levothyroxine 150 mcg tablet 150 mcg PO Alston@0600 HYPOTHYROIDISM 07/02/24 Unknown Rx #0 tabs melatonin 3 mg tablet 3 mg PO QHS PRN PRN Insomnia #0 07/02/24 Unknown Rx tabs menthol 0.44 %-zinc oxide 20.6 % 1 applic topical 4X/DAY REDNESS #0 07/02/24 Unknown Rx topical ointment (Calmoseptine) grams metoprolol succinate 25 mg 25 mg PO DAILY HEART RATE #0 tabs 07/02/24 Unknown Rx tablet,extended release 24 hr nutrition tx glu 120 ml PO 4X/DAY #0 mL 07/02/24 Unknown Rx intol,lac-free,soy-fiber 0.06 gram-1.2 kcal/mL liquid (Glucerna 1.2 Remy) rivaroxaban 20 mg tablet (Xarelto) 20 mg PO DAILY CLOTTING #0 tabs 07/02/24 Unknown Rx sennosides 8.6 mg-docusate sodium 2 tab PO BID PRN PRN Constipation 07/02/24 Unknown Rx 50 mg tablet (Stimulant Laxative #0 tabs Plus) tolterodine 2 mg capsule,extended 2 mg PO DAILY #0 caps 07/02/24 Unknown Rx release 24 hr walker (Ultra-Light Rollator misc) #1 ea 09/05/24 Unknown Rx insulin aspart U-100 100 unit/mL subcut UD HYPERGLYCEMIA 09/10/24 Unknown History subcutaneous solution (Novolog U-100 Insulin aspart) insulin glargine-yfgn 100 unit/mL 7 unit subcut QHS 09/10/24 Unknown History subcutaneous solution (Semglee (insulin glargine-yfgn)) pantoprazole 40 mg tablet,delayed 40 mg PO DAILY GERD 09/10/24 Unknown History release simvastatin 10 mg tablet 10 mg PO DAILY HIGH CHOLESTEROL 09/10/24 Unknown History Allergy/AdvReac Type Severity Reaction Status Date / Time ciprofloxacin (From Cipro) Allergy Intermediate hives Verified 09/05/24 14:19 Sulfa (Sulfonamide Allergy Intermediate hives Verified 09/05/24 14:19 Antibiotics) Penicillins Allergy Rash Verified 09/05/24 14:19 Family History Father Diabetes Respiratory disease Mother No problems noted. 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 alcohol intake: current alcohol intake frequency: a few times a month substance use type: does not use ROS ROS ED Constitutional Constitutional ED: Denies chills or fever(s) Cardiovascular Cardiovascular: Denies chest pain Respiratory/Chest Respiratory/Chest: Denies cough or dyspnea Gastrointestinal Gastrointestinal: Denies abdominal pain, nausea or vomiting Genitourinary Genitourinary ED: Reports other Details: odorous urine ; Denies dysuria, hematuria or urinary frequency Musculoskeletal Musculoskeletal: Denies arthralgias or myalgias Integumentary Denies rash Neurologic Neurologic: Reports weakness EXAM Physical Exam Const Vital Signs: 09/10/24 15:31 09/10/24 15:32 09/10/24 16:32 Temperature 98.4 F 98 F 98.7 F Temperature Source Oral Oral Oral Pulse Rate 90 90 94 Respiratory Rate 18 18 16 Respiratory Effort Respiratory Pattern Blood Pressure 116/52 L 116/52 L 124/58 H Blood Pressure Mean 73 73 80 Pulse Ox 90 90 99 Oxygen Delivery Method Nasal Cannula Nasal Cannula Nasal Cannula Oxygen Flow Rate (L/min) 2 2 2 09/10/24 16:51 09/10/24 17:00 09/10/24 18:00 Temperature 98.3 F 98.1 F Temperature Source Oral Oral Pulse Rate 102 H 104 H Respiratory Rate 32 H 18 Respiratory Effort Normal Respiratory Pattern Normal Blood Pressure 125/85 H 136/68 H Blood Pressure Mean 98 90 Pulse Ox 98 93 Oxygen Delivery Method Nasal Cannula Nasal Cannula Oxygen Flow Rate (L/min) 2 Positive well nourished, well developed and no apparent distress General Appearance ED: well developed HEENT Reports normocephalic and head/scalp atraumatic Mouth ED: Yes moist mucous membranes normal Eyes PERRL and EOMs intact bilaterally Neck full ROM and supple Chest Wall inspection of chest normal Resp normal respiratory effort and clear to auscultation bilaterally Cardio regular rate and regular rhythm GI soft to palpation, non-tender, non-distended and no masses Back/Spine normal ROM and normal to inspection Extremity normal to inspection and full ROM Neuro oriented x3, CN's II-XII intact bilaterally, moves all extremities, no focal motor deficits and no sensory deficits noted Sensorium / Orientation: awake and alert Psych mental status grossly normal and thought process normal Skin no rashes or lesions noted and no wounds MDM MDM MDM Narrative Medical decision making narrative: Patient presenting today with generalized weakness and concerns for UTI. She is nontoxic-appearing. Labs obtained, blood cultures were obtained, she has a WBC of 13.5, sodium 134, BUN 24, creatinine 1.35, UA shows 500 leukocyte esterase, greater than 100 WBCs, 4+ bacteria, and occult blood. This is consistent with a UTI and she was treated with IV Rocephin. On the attending's exam, she did have slight tenderness to her abdomen, therefore CT scan of the abdomen and pelvis with IV contrast was obtained and is negative for any acute findings. COVID/influenza are negative. She was also given IV fluids and urinary culture was obtained. Patient lives with her significant other who is not able to lift her or care for her when she is this weak. She was having a difficult time getting up off the toilet this evening and he does not think he is going to be able to take her home when she can barely stand. I do think patient would benefit from admission to the hospital. I spoke with the hospitalist, patient does technically meet sepsis criteria and will be admitted to the ICU in stable condition. Lab Data Attestation: I reviewed the patient's lab results. Lab results narrative: WBC 13.5, H&H 9.2 and 38.5, sodium 134, BUN 24, creatinine 1.35 UA shows 250 occult blood, 500 leukocyte esterase, 25-50 RBCs, greater than 100 WBCs, 4+ urine bacteria Labs: Laboratory Results - last 24 hr 09/10/24 09/10/24 16:03 16:40 WBC 13.5 H RBC 3.64 L Hgb 9.2 L Hct 30.5 L MCV 83.8 MCH 25.3 L MCHC 30.2 L RDW Std Deviation 62.1 H RDW Coeff of Kristyn 21.3 H Plt Count 445 MPV 10.3 Immature Gran % (Auto) 0.400 Neut % (Auto) 63.5 Lymph % (Auto) 22.6 [place] % (Auto) 12.1 H Eos % (Auto) 1.0 Baso % (Auto) 0.4 Absolute Neuts (auto) 8.6 H Absolute Lymphs (auto) 3.06 Nucleated RBC % 0 Differential Comment SCANNED Reactive Lymphocytes 1+ Toxic Granulation 1+ Polychromasia RARE Hypochromasia 1+ Anisocytosis 2+ Target Cells RARE Sodium 134 L Potassium 4.6 Chloride 102 Carbon Dioxide 27.0 Anion Gap 6 BUN 24 H Creatinine 1.35 H Est GFR (MDRD) Af Amer 48 L Est GFR (MDRD) Non-Af 40 L BUN/Creatinine Ratio 17.8 Glucose 178 H Lactic Acid 0.7 Calcium 8.7 Troponin I High Sens 9 Lipase 30 Urine Color Yellow Urine Clarity Cloudy Urine pH 6.5 Ur Specific [place] 1.010 Urine Protein 30 H Urine Glucose (UA) Normal Urine Ketones Negative Urine Occult Blood 250 H Urine Nitrite Negative Urine Bilirubin Negative Urine Urobilinogen Normal Ur Leukocyte Esterase 500 H Urine RBC 25-50 SEEN Urine WBC >100 SEEN Ur Squamous Epith Cells 0-5 SEEN Urine Bacteria 4+ Urine Mucus 2+ Radiography Diagnostic Testing: Clinical Impression(s) from Imaging Studies Abdomen/Pelvis CT 09/10/24 16:26 IMPRESSION: 1. Cholelithiasis. 2. Marked hepatomegaly. Electronically Signed: Jaime Lees MD at 18:05 EST , Discharge Plan Dx/Rx/DC Orders Clinical Impression: THANIA (acute kidney injury), UTI (urinary tract infection), Sepsis, Inability to walk, Weakness Disposition Disposition: Acute Care Hospital [facility] Discharge Date/Time: 09/10/24 19:26
[2024-09-10 16:21] LABS: Color, Urine Yellow (Yellow); Glucose, Dipstick Normal (Normal); Ketone-Dipstick Negative (Negative); Leukocyte Esterase-Dipstick 500 /ul (Negative); Nitrite-Dipstick Negative (Negative); Occult Blood-Urine 250 /ul (Negative); Protein-Dipstick 30 mg/dl (Negative); Urine Bilirubin Dipstick Negative (Negative); Urine Clarity Cloudy (Clear); Urine Urobilinogen Normal (Normal); Urine pH 6.5 (5.0 - 8.0)
[2024-09-10 16:24] LABS: Absolute Lymphocyte Count 3.06 X10^3/uL (0.83-4.51); Absolute Neutrophil Count 8.6 X10^3/uL (2.0-7.7); Basophil# 0.06 X10^3/uL; Basophil% 0.4 % (0-1); Eosinophil# 0.14 X10^3/uL; Hematocrit 30.5 % (37-47); Hemoglobin 9.2 g/dL (12.0-15.0); Lymphocyte # 3.06 X10^3/ul (0.83-4.51); Lymphocyte % 22.6 % (19-41); Mean Corp Hgb Conc 30.2 g/dL (32-36); Mean Corpuscular Hgb 25.3 pg (27.0-32.0); Mean Corpuscular Volume 83.8 fL (81-99); Mean Platelet Vol. 10.3 fl (6.2-12.0); Monocyte# 1.63 X10^3/uL; Monocyte% 12.1 % (0-10); NRBC Flagged by Analyzer 0 % (0-5); Neutrophil # 8.58 X10^3/uL (2.7-7.7); Neutrophil % 63.5 % (47-70); POSITIVE DIFFERENTIAL YES; POSITIVE MORPHOLOGY YES; Platelet Count 445 K/mm3 (150-450); RBC Distribution Width CV 21.3 % (11.6-14.6); RBC Distribution Width SD 62.1 fl (35.1-43.9); Red Blood Count 3.64 M/mm3 (4.2-5.4); White Blood Count 13.5 K/mm3 (4.4-11.0)
[2024-09-10 16:26] LABS: Differential Indicated SCAN CRITERIA MET
--- NOTE | 2024-09-10 16:26 | CT_ITS ---
EXAM: CT ABDOMEN AND PELVIS WITH INTRAVENOUS CONTRAST CLINICAL INDICATION: llq abd pain TECHNIQUE: Helically acquired images were obtained of the abdomen and pelvis with intravenous contrast. This CT exam was performed using one or more of the following dose reduction techniques: automated exposure control, adjustment of the mA and/or kV according to patient size, and/or use of iterative reconstruction technique. CONTRAST: IV 100mL Isovue-300 RADIATION DOSE: CTDIvol = 14.7 mGy, DLP = 941.87 mGy-cm COMPARISON: None FINDINGS: LOWER THORAX: Fibrotic changes seen in both lung bases. Pleural parenchymal scarring and atelectasis in both posterior lung bases. No cardiomegaly. No significant pericardial effusion. ABDOMEN: LIVER: There is prominent hepatomegaly. GALLBLADDER AND BILE DUCTS: There is cholelithiasis. No gallbladder distention or wall edema. No intra- or extrahepatic biliary ductal dilation. PANCREAS: Unremarkable. No focal cystic or solid mass. SPLEEN: Unremarkable. Normal size without focal cystic or solid mass. ADRENALS: Unremarkable. No nodules. KIDNEYS AND URETERS: No acute abnormalities of the kidneys. There is a 3.6 cm cyst of the mid left kidney. Normal renal size and position. No stones. No hydronephrosis. STOMACH AND BOWEL: Evaluation of the GI tract is limited by absence of oral contrast. Cannot exclude stomach wall thickening. There is a 2 cm lipoma of the proximal duodenum. No dilated loops of bowel or evidence for obstruction. Cannot exclude segmental thickening of the myers of the small or large bowel. Cannot exclude enteritis or colitis. Moderate diffuse fecal retention. Appendix within normal limits. PELVIS: APPENDIX: No evidence of acute appendicitis. BLADDER: Unremarkable. REPRODUCTIVE: Unremarkable as visualized. No mass. ABDOMEN and PELVIS: INTRAPERITONEAL SPACE: Unremarkable. No ascites or other fluid collection. No free air. BONES/JOINTS: Unremarkable. No suspicious lytic or blastic abnormality. SOFT TISSUES: There are bilateral calcified breast implants. No discrete abdominal or pelvic wall hernia. VASCULATURE: There is a heavily calcified aorta and iliac arteries with no aneurysm. LYMPH NODES: Unremarkable. No enlarged lymph nodes. CT/Abdomen/Pelvis W IV Cont ONLY IMPRESSION: 1. Cholelithiasis. 2. Marked hepatomegaly. Electronically Signed: Jaime Lees MD at 18:05 EST ,
[2024-09-10 16:32] LABS: Bacteria 4+ /hpf (None Seen); Mucous, Urine 2+ /hpf (<or=2+); Red Blood Cells-Urine 25-50 SEEN /hpf (0-5); Squamous Epithelial Cells - UA 0-5 SEEN /hpf (5-10); White Blood Cells >100 SEEN /hpf (0-5)
[2024-09-10 16:34] LABS: Anion Gap 6 (5-15); BUN 24 mg/dL (7-18); BUN/Creat Ratio 17.8 RATIO (10-20); Calcium,Total 8.7 mg/dL (8.5-10.1); Chloride 102 mmol/L (98-107); Creatinine, Serum 1.35 mg/dL (0.55-1.02); EST Glomerular Filtration Rate 40 mL/min (>60); Est Glom Filt Rate - Afr Amer 48 mL/min (>60); Glucose 178 mg/dL (74-106); Potassium 4.6 mmol/L (3.5-5.1); Sodium Level 134 mmol/L (136-145)
[2024-09-10] MEDS: Ceftriaxone 1 GM/50 ML BAG IV (17:05)
[2024-09-10 17:27] LABS: Lactic Acid 0.7 mmol/L (0.4-1.9)
--- NOTE | 2024-09-10 17:49 | ED.RN ---
LAB CALLED FOR LIPASE AND TROPONIN, D/T NOT SHOWING THEY'VE RECEIVED. RESPONSE IT MUST HAVE GOTTEN MISSED, WE WILL GET THIS DONE SATYA
[2024-09-10 17:52] LABS: Differential Comment SCANNED; Reactive Lymphocyte 1+; Toxic Granulation 1+
[2024-09-10 17:53] LABS: Anisocytosis 2+; Hypochromasia 1+; Polychromasia RARE
[2024-09-10 17:54] LABS: Target Cells RARE
[2024-09-10 18:17] LABS: Lipase 30 U/L (13-75); Troponin-I HS 9 pg/mL (3.0-54.0)
[2024-09-10] MEDS: 0.9% Normal Saline (500mL Bag) 500 ML 999 ML IV (18:45)
--- NOTE | 2024-09-10 18:50 | CM.ED ---
Social Work Reason for visit: verifying advanced directives This SW introduced self and role at [facility]. SW explained that while checking on advanced directives, it was noted that [facility] has a copy of patient HCPOA but not her Living Will. Patient stated she did remember completing one. SW asked patient to bring a copy to hospital when she was able. Abi Donahue, SONOGRAPHER, PRESS OFFBEARER
--- NOTE | 2024-09-10 19:04 | PCM.HP.STD ---
HPI - General General Date of Admission: 09/10/24 Date of Service: 09/10/24 Chief Complaint: Generalized weakness and odorous urine HPI Narrative LIVIER SMALLS, is a 79 F who presented to the emergency department at [facility] on 09/10/2024 due to generalized weakness and odorous urine. Patient was discharged from here on 07/02/2024 to longterm facility and per report to the emergency department she had been there about 40 days and just got home recently. It was estimated that she has been home about a week now. She was there for generalized weakness and difficulty with ambulation. She reported that she is still unable to walk despite being at rehab but is able to stand and pivot. On the day of presentation she was even having difficulty with standing and pivoting. She is on oxygen at 2 L baseline which she is maintaining currently. She denied any dysuria or frequency but does just an admit that her urine is very smelly in the last 48 hours. She denies any nausea or vomiting. She denies diarrhea. She denies chest pain or worsening shortness of breath. Vital signs on presentation showed temperature 98.4, heart rate 90, blood pressure 116/52, respiratory rate was 18 and oxygen saturation was 90 to 99% on 2 L nasal cannula which is her baseline. CBC shows a leukocytosis with a white count of 13.5 she does not have a left shift. Hemoglobin is 9.2 and appears to be stable compared to previous. Chemistry panel shows mild hyponatremia the sodium 134, BUN is 24 with a serum creatinine 1.35 (baseline 0.9-1.1), and her serum glucose was 178. Lactic acid was normal at 0.7. Initial troponin was 9. Lipase was normal at 30. Her UA is suggestive of infection. She has occult blood, leuk esterase with greater than 100 white cells per high-power field and 4+ bacteria. Imaging was performed and shows cholelithiasis and hepatomegaly but was otherwise unremarkable. Cultures were obtained and she was started on IV antibiotics in emergency department. Initial fluid boluses 500 cc was started. Patient does meet sepsis criteria per Sep 1 guidelines with tachycardia, leukocytosis, and source of infection being urinary tract. 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 Memory loss HLD (hyperlipidemia) HTN (hypertension) Pulmonary embolism, bilateral Smoker COPD (chronic obstructive pulmonary disease) Home Medications ?Medication ?Instructions ?Recorded ?Last Taken ?Type amlodipine 5 mg-benazepril 10 mg 1 cap PO DAILY blood pressure 09/08/21 09/07/22 History capsule cholecalciferol (vitamin D3) 50 4,000 unit PO .COMPLEX vitamin 06/29/23 01/11/24 History mcg (2,000 unit) tablet (D3 DOTS) magnesium 200 mg tablet 400 mg PO DAILY supplement 06/29/23 Unknown History iron, carbonyl 45 mg tablet 45 mg PO DAILY ANEMIA #30 tabs 06/16/24 Unknown Rx tiotropium bromide 2.5 2 inh inhalation DAILY 06/29/24 Unknown History mcg/actuation mist for inhalation (Spiriva Respimat) acetaminophen 325 mg tablet 650 mg (2 x 325 mg) PO Q4H PRN PRN 07/02/24 Unknown Rx Fever, pain 1-08/02 #0 tabs albuterol sulfate 2.5 mg/3 mL 2.5 mg (3 mL) inhalation Q2H PRN 07/02/24 Unknown Rx (0.083 %) solution for nebulization PRN Dyspnea, wheezing #0 mL ferrous sulfate 325 mg (65 mg 325 mg PO DAILYCM #0 tabs 07/02/24 Unknown Rx iron) tablet (FeroSul) levothyroxine 100 mcg tablet 100 mcg PO MoTuWeThFrSa@0600 #0 07/02/24 Unknown Rx tabs levothyroxine 150 mcg tablet 150 mcg PO Alston@0600 HYPOTHYROIDISM 07/02/24 Unknown Rx #0 tabs melatonin 3 mg tablet 3 mg PO QHS PRN PRN Insomnia #0 07/02/24 Unknown Rx tabs menthol 0.44 %-zinc oxide 20.6 % 1 applic topical 4X/DAY REDNESS #0 07/02/24 Unknown Rx topical ointment (Calmoseptine) grams metoprolol succinate 25 mg 25 mg PO DAILY HEART RATE #0 tabs 07/02/24 Unknown Rx tablet,extended release 24 hr nutrition tx glu 120 ml PO 4X/DAY #0 mL 07/02/24 Unknown Rx intol,lac-free,soy-fiber 0.06 gram-1.2 kcal/mL liquid (Glucerna 1.2 Remy) rivaroxaban 20 mg tablet (Xarelto) 20 mg PO DAILY CLOTTING #0 tabs 07/02/24 Unknown Rx sennosides 8.6 mg-docusate sodium 2 tab PO BID PRN PRN Constipation 07/02/24 Unknown Rx 50 mg tablet (Stimulant Laxative #0 tabs Plus) tolterodine 2 mg capsule,extended 2 mg PO DAILY #0 caps 07/02/24 Unknown Rx release 24 hr walker (Ultra-Light Rollator misc) #1 ea 09/05/24 Unknown Rx insulin aspart U-100 100 unit/mL subcut UD HYPERGLYCEMIA 09/10/24 Unknown History subcutaneous solution (Novolog U-100 Insulin aspart) insulin glargine-yfgn 100 unit/mL 7 unit subcut QHS 09/10/24 Unknown History subcutaneous solution (Semglee (insulin glargine-yfgn)) pantoprazole 40 mg tablet,delayed 40 mg PO DAILY GERD 09/10/24 Unknown History release simvastatin 10 mg tablet 10 mg PO DAILY HIGH CHOLESTEROL 09/10/24 Unknown History Allergy/AdvReac Type Severity Reaction Status Date / Time ciprofloxacin (From Cipro) Allergy Intermediate hives Verified 09/05/24 14:19 Sulfa (Sulfonamide Allergy Intermediate hives Verified 09/05/24 14:19 Antibiotics) Penicillins Allergy Rash Verified 09/05/24 14:19 Family History Father Diabetes Respiratory disease Mother No problems noted. 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 alcohol intake: current alcohol intake frequency: a few times a month substance use type: does not use ROS Constitutional Constitutional: Reports fatigue, malaise and weakness; Denies anorexia, change in weight, chills, fever(s), night sweats or other Eyes Eyes: Denies blurry vision, change in eye color, change in vision, discharge from eye(s), double vision, erythema, eye pain, loss of vision or other ENT HEENT: Denies abnormal hearing, dysphagia, ear pain, epistaxis, headache(s), hearing loss, nasal congestion, nasal discharge, post nasal drip, sinus pressure, sore throat or other Cardiovascular Cardiovascular: Denies chest pain, claudication, dyspnea on exertion, edema, lightheadedness, orthopnea, palpitations, paroxysmal nocturnal dyspnea, rapid heart rate, syncope or other Respiratory/Chest Respiratory/Chest: Denies cough, dyspnea, excessive phlegm production, hemoptysis, productive cough, shortness of breath at rest, shortness of breath with exertion, wheezing or other Gastrointestinal Gastrointestinal: Denies abdominal pain, coffee ground emesis, constipation, diarrhea, dyspepsia, hematemesis, hematochezia, loose stools, melena, nausea, vomiting or other Genitourinary Genitourinary: Reports other Details: Odiferous urine ; Denies burning urination, difficulty urinating, dysuria, hematuria, nocturia, urinary frequency, urinary hesitancy, urinary incontinence or urinary urgency Musculoskeletal Musculoskeletal: Denies arthralgias, back pain, joint pain, joint stiffness, joint swelling, myalgias, neck pain or other Neurologic Neurologic: Reports abnormal gait and other Details: Marked bilateral lower extremity weakness Psychiatric Psychiatric: Reports depression; Denies anxiety, homicidal ideation, suicidal ideation or other Endocrine Endocrinology: Denies change in body appearance, cold intolerance, excessive sweating, heat intolerance, polydipsia, polyuria or other Hematologic/Lymphatic Hematologic/Lymphatic: Denies anemia, easy bleeding, easy bruising, lymphadenopathy or other Allergic/Immunologic Allergic/Immunologic: Denies rhinitis, hives, eczemia, asthma or other Vital Signs Vital Signs Vital Signs: 09/10/24 15:31 09/10/24 15:32 09/10/24 16:32 Temperature 98.4 F 98 F 98.7 F Temperature Source Oral Oral Oral Pulse Rate 90 90 94 Respiratory Rate 18 18 16 Respiratory Effort Respiratory Pattern Blood Pressure 116/52 L 116/52 L 124/58 H Blood Pressure Mean 73 73 80 Pulse Ox 90 90 99 Oxygen Delivery Method Nasal Cannula Nasal Cannula Nasal Cannula Oxygen Flow Rate (L/min) 2 2 2 09/10/24 16:51 09/10/24 17:00 09/10/24 18:00 Temperature 98.3 F 98.1 F Temperature Source Oral Oral Pulse Rate 102 H 104 H Respiratory Rate 32 H 18 Respiratory Effort Normal Respiratory Pattern Normal Blood Pressure 125/85 H 136/68 H Blood Pressure Mean 98 90 Pulse Ox 98 93 Oxygen Delivery Method Nasal Cannula Nasal Cannula Oxygen Flow Rate (L/min) 2 Weight Weight: 81.6 kg Body Mass Index (BMI) 29.9 Physical Exam Const alert, oriented x3, no apparent distress, average body habitus and healthy appearing; Negative for well nourished Constitutional Narrative: Patient is currently alert and oriented x 3 but clearly has some mild cognitive impairment, elderly, ill-appearing, white female, sitting up in bed, appears mildly toxic, appears chronically ill General Appearance: cooperative HEENT normocephalic, head/scalp atraumatic and hearing grossly normal bilaterally; Negative for moist oral mucous membranes HEENT Narrative: Mucous membranes are markedly dry, dentition is fair, Mallampati 3, no thrush Eyes EOMs intact bilaterally and conjunctivae normal Eyes Narrative: No scleral icterus Resp normal respiratory effort, no retractions, no use of accessory muscles and clear to auscultation bilaterally Resp Narrative: Diffusely diminished but currently clear Auscultation: rales and rhonchi; Negative for wheezes Cardio regular rhythm, S1 normal heart sound, S2 normal heart sound, no murmurs, no rub, no gallops and no clicks Cardio Narrative: Mild tachycardia GI normal to inspection, nondistended, normoactive bowel sounds, soft to palpation and non-tender Extremity no clubbing, cyanosis or edema Extremity Narrative: Pedal pulses are 2+ Neuro oriented x3, moves all extremities and no focal motor deficits Neuro Narrative: Marked generalized weakness noted proximal greater than distal with no focal deficits Speech: speech normal Psych Psych Narrative: Affect is flat Results Lab / Micro Data 09/10/24 16:03 09/10/24 16:03 Labs: Laboratory Results - last 24 hr 09/10/24 16:03: WBC 13.5 H, RBC 3.64 L, Hgb 9.2 L, Hct 30.5 L, MCV 83.8, MCH 25.3 L, MCHC 30.2 L, RDW Std Deviation 62.1 H, RDW Coeff of Kristyn 21.3 H, Plt Count 445, MPV 10.3, Immature Gran % (Auto) 0.400, Neut % (Auto) 63.5, Lymph % (Auto) 22.6, [place] % (Auto) 12.1 H, Eos % (Auto) 1.0, Baso % (Auto) 0.4, Absolute Neuts (auto) 8.6 H, Absolute Lymphs (auto) 3.06, Nucleated RBC % 0, Differential Comment SCANNED, Reactive Lymphocytes 1+, Toxic Granulation 1+, Polychromasia RARE, Hypochromasia 1+, Anisocytosis 2+, Target Cells RARE, Sodium 134 L, Potassium 4.6, Chloride 102, Carbon Dioxide 27.0, Anion Gap 6, BUN 24 H, Creatinine 1.35 H, Est GFR (MDRD) Af Amer 48 L, Est GFR (MDRD) Non-Af 40 L, BUN/Creatinine Ratio 17.8, Glucose 178 H, Calcium 8.7, Troponin I High Sens 9, Lipase 30, Urine Color Yellow, Urine Clarity Cloudy, Urine pH 6.5, Ur Specific [place] 1.010, Urine Protein 30 H, Urine Glucose (UA) Normal, Urine Ketones Negative, Urine Occult Blood 250 H, Urine Nitrite Negative, Urine Bilirubin Negative, Urine Urobilinogen Normal, Ur Leukocyte Esterase 500 H, Urine RBC 25-50 SEEN, Urine WBC >100 SEEN, Ur Squamous Epith Cells 0-5 SEEN, Urine Bacteria 4+, Urine Mucus 2+ 09/10/24 16:40: Lactic Acid 0.7 Micro: Microbiology 09/10/24 16:45 Mucosa - Nose SARS-CoV-2, Influenza & RSV (PCR) - Final Imaging Radiology Impression Abdomen/Pelvis CT 09/10/24 16:26 IMPRESSION: 1. Cholelithiasis. 2. Marked hepatomegaly. Electronically Signed: Jaime Lees MD at 18:05 EST , Assessment & Plan Assessment/Plan (1) Debility: (2) Sepsis: (3) THANIA (acute kidney injury): (4) Leukocytosis: (5) UTI (urinary tract infection): PLAN: Plan Sepsis secondary urinary tract infection -Meet sepsis with Sep 1 guidelines per Medicare A and B with tachycardia, leukocytosis, and source being urinary tract -IV fluids given per protocol with 30 cc/kg body weight -Broad-spectrum antibiotics with ceftriaxone to continue as initiated emergency department -Cultures are pending -Sepsis order set in place -Consult critical care -Hopefully patient will remained hemodynamically stable overnight and be able to transfer to [facility] tomorrow Leukocytosis -Secondary to above -Cultures pending -Continue broad-spectrum antibiotics THANIA -Baseline serum creatinine 0.9 -Creatinine on presentation was 1.35 -IV fluids per sepsis protocol -Repeat in a.m. -It sounds as if her p.o. intake has been poor Hyponatremia -Mild at 134 -IV fluids per protocol If and recheck in a.m. Generalized weakness and debility-acute on chronic with acuity secondary to acute illness -PT/OT consultation -Case management/social work consultation--> patient just had recent extended stay at [facility] Chronic hypoxic respiratory failure secondary to COPD -Patient remains on her baseline 2 L nasal cannula -Continue to monitor -Hold home Spiriva -As needed albuterol and scheduled DuoNebs ordered DM-1 -Continue basal insulin -Hold prandial insulin for now -SSI ordered -Accu-Cheks as ordered -Cardiac/carb controlled diet Chronic anemia -Currently stable -Continue home iron supplementation -Repeat CBC in a.m. History of paroxysmal atrial fibrillation with RVR -Currently sinus tachycardia -Continue home rivaroxaban -Continue home metoprolol -Current heart rate is reactive so will not treat acutely -Check TSH Hypothyroidism -Continue home levothyroxine Essential hypertension/hyperlipidemia -Hold home amlodipine/Benazepril for now but restart if blood pressure will tolerate tomorrow -Continue home metoprolol -Continue home statin Overactive bladder -Continue home tolterodine History of bilateral PE -Remote -Continue home Xarelto Dementia -Mild cognitive impairment more likely as patient was alert and oriented on admission with mild intermittent confusion History of tobacco abuse -Recommend ongoing cessation DVT prophylaxis -Continue Xarelto CODE STATUS -Per discussion with patient DNR CCA with no intubation Sepsis Attestation Sepsis Alert: Yes Sepsis Attestation: Agree w/Sepsis Date exam was performed: 09/10/24 Time exam was performed: 19:05 Possible Source of Sepsis: Genitourinary Supportive Findings: Per Sep 1 Guidelines with tachycardia, THANIA, Elevated lactic acid and source Charges/Coding Visit Charges Inpatient E&M: 95040 Init Hosp L2
--- NOTE | 2024-09-10 19:18 | CASEMGMT ---
Care Management Face to Face with patient for initial transition planning/care coordination assessment.? This television writer introduced self and role at [facility]. Patient lying in bed, alert and oriented. Patient willing to participate in assessment and is able to answer all questions appropriately.? Care providers, pharmacy, and demographics verified. Admitting Diagnosis: ? complaint Other diagnosis history:? UTI, Diabetes, DVT, Dementia, COPD PCP: ?Dr. Jeffers Specialists: Dr. Ceja Preferred [facility]acy: [facility]? Insurance: ?Medicare A and B Prescription Benefit:? Yes Living Will/HPOA: ?HPOA is on file, patient and HPOA form states she has a living will completed, patient asked to bring in when she was able. LNOK: Andrea Tyson, son.? Living Arrangements: Lives in a one story condo with her boyfriend.?? No stairs to enter Transportation: Patient states she drives, has reliable transportation DME/HHC: Has a walker, wheelchair, cane, blood pressure cuff, pulse ox, grab bars by her toilet and walk in shower, and a raised toilet seat Community Resources: None Behavioral Health History:? None Patient goals: Patient wishes to discharge home.? Patient states she has no further needs or concerns at this timeDisposition Plan: CM to follow for discharge planning needs that may arise. Abi Donahue, PHYSICIAN SUPPORT COORDINATOR, ACOUSTIC INTELLIGENCE SPECIALIST
--- NOTE | 2024-09-10 19:20 | ED.RN ---
REPORT CALLED TO ICU NURSE LINN, NO FURTHER QUESTIONS BY THE RECEIVING NURSE AT THIS TIME. FLOOR IS READY FOR PT.
[2024-09-10] MEDS: Lactated Ringers 1,000 ML 75 ML IV (20:05)
[2024-09-10] MEDS: 0.9% Normal Saline (1000mL) 1,000 ML 999 ML IV ×2 (20:06→21:06)
--- NOTE | 2024-09-10 21:00 | PCM.HOSP.N ---
Sepsis Attestation Sepsis Note Date exam was performed: 09/10/24 Time exam was performed: 20:30 Sepsis Attestation: Sepsis re-evaluation was performed (stable with fluids)
[2024-09-10] MEDS: Insulin Lispro 100 UNIT/ML INSULN.PEN SC (21:13)
[2024-09-10] MEDS: Insulin Glargine-YFGN 100 UNIT/ML Pen 7 UNIT SC (21:14)
[2024-09-10 21:27] LABS: Bedside Glucose 280 mg/dL (74-106)
[2024-09-10] MEDS: Atorvastatin Calcium 10 MG Tablet 5 MG PO (21:46)
[2024-09-11] VITALS (21 sets, daily range): BP systolic 124–149; BP diastolic 46–84; PULSE 96–112; RESP 17–27; TEMP 36.7–37.4; O2SAT 92–99; BMI 29.1
[2024-09-11 04:00] LABS: Absolute Lymphocyte Count 2.65 X10^3/uL (0.83-4.51); Absolute Neutrophil Count 8.4 X10^3/uL (2.0-7.7); Basophil# 0.06 X10^3/uL; Basophil% 0.5 % (0-1); Eosinophil# 0.09 X10^3/uL; Eosinophils% 0.7 % (0-5); Hemoglobin 8.2 g/dL (12.0-15.0); Lymphocyte # 2.65 X10^3/ul (0.83-4.51); Lymphocyte % 21.2 % (19-41); Mean Corp Hgb Conc 31.5 g/dL (32-36); Mean Corpuscular Hgb 26.1 pg (27.0-32.0); Mean Corpuscular Volume 82.8 fL (81-99); Mean Platelet Vol. 10.1 fl (6.2-12.0); Monocyte# 1.27 X10^3/uL; Monocyte% 10.2 % (0-10); NRBC Flagged by Analyzer 0 % (0-5); Neutrophil # 8.35 X10^3/uL (2.7-7.7); Neutrophil % 66.8 % (47-70); POSITIVE MORPHOLOGY YES; Platelet Count 396 K/mm3 (150-450); RBC Distribution Width CV 20.7 % (11.6-14.6); RBC Distribution Width SD 57.2 fl (35.1-43.9); Red Blood Count 3.14 M/mm3 (4.2-5.4); White Blood Count 12.5 K/mm3 (4.4-11.0)
[2024-09-11 04:16] LABS: ALB/GLOB Ratio 0.6 RATIO (0.9-2.4); AST(SGOT) 10 U/L (15-37); Alanine Aminotransfer ALT/SGPT 16 U/L (13-56); Albumin, Serum 2.1 g/dL (3.2-5.0); Alkaline Phosphatase 86 U/L (45-117); Anion Gap 4 (5-15); BUN 17 mg/dL (7-18); BUN/Creat Ratio 18.6 RATIO (10-20); Calcium,Total 7.8 mg/dL (8.5-10.1); Chloride 108 mmol/L (98-107); Creatinine, Serum 0.91 mg/dL (0.55-1.02); EST Glomerular Filtration Rate 63 mL/min (>60); Est Glom Filt Rate - Afr Amer 76 mL/min (>60); Estimated Creatinine Clearance 49.94 ml/min; Globulin 3.8 g/dL (2.2-4.2); Glucose 184 mg/dL (74-106); Magnesium 2.2 mg/dL (1.6-2.6); Phosphorus 2.8 mg/dL (2.5-4.9); Potassium 4.1 mmol/L (3.5-5.1); Protein, Total 5.9 g/dL (6.4-8.2); Sodium Level 137 mmol/L (136-145)
[2024-09-11 04:27] LABS: Differential Indicated SCAN CRITERIA MET
[2024-09-11] MEDS: Levothyroxine 100 MCG Tablet PO (05:00)
[2024-09-11 06:49] LABS: Anisocytosis 1+
--- NOTE | 2024-09-11 07:07 | PN.HOSP_ITS ---
Reason for Visit Reason for Visit: Diagnoses Sepsis, unspecified organism (09/10/24) Elevated white blood cell count, unspecified (09/10/24) Acute kidney failure, unspecified (09/10/24) Urinary tract infection, site not specified (09/10/24) Other malaise (09/10/24) Objective Data Objective Data Vital Signs: Vital Signs Temp Pulse Resp BP Pulse Ox O2 Del Method O2 Flow Rate 98.8 F 106 H 22 H 149/58 H 96 Nasal Cannula 2 09/11/24 05:00 09/11/24 07:00 09/11/24 07:00 09/11/24 07:00 09/11/24 07:00 09/11/24 07:00 09/11/24 07:00 Oxygen Flow Rate (L/min) 2 Oxygen Delivery Method Nasal Cannula Weight: 175 lb 0.752 oz Body Mass Index (BMI) 29.1 Intake & Output: Intake and Output for Last 24 Hours 09/09/24 09/10/24 09/11/24 23:59 23:59 23:59 Intake Total 2549 / 2549 Output Total 400 / 400 Balance 2549 / 2249 -400 / -400 Lab / Micro Data 09/11/24 03:50 09/11/24 03:50 Labs: Laboratory Results - last 24 hr 09/10/24 16:03: WBC 13.5 H, RBC 3.64 L, Hgb 9.2 L, Hct 30.5 L, MCV 83.8, MCH 25.3 L, MCHC 30.2 L, RDW Std Deviation 62.1 H, RDW Coeff of Kristyn 21.3 H, Plt Count 445, MPV 10.3, Immature Gran % (Auto) 0.400, Neut % (Auto) 63.5, Lymph % (Auto) 22.6, [place] % (Auto) 12.1 H, Eos % (Auto) 1.0, Baso % (Auto) 0.4, Absolute Neuts (auto) 8.6 H, Absolute Lymphs (auto) 3.06, Nucleated RBC % 0, Differential Comment SCANNED, Diff Path Review May foll, Reactive Lymphocytes 1+, Toxic Granulation 1+, Polychromasia RARE, Hypochromasia 1+, Anisocytosis 2+, Target Cells RARE, Sodium 134 L, Potassium 4.6, Chloride 102, Carbon Dioxide 27.0, Anion Gap 6, BUN 24 H, Creatinine 1.35 H, Est GFR (MDRD) Af Amer 48 L, Est GFR (MDRD) Non-Af 40 L, BUN/Creatinine Ratio 17.8, Glucose 178 H, Calcium 8.7, Troponin I High Sens 9, Lipase 30, Urine Color Yellow, Urine Clarity Cloudy, Urine pH 6.5, Ur Specific [place] 1.010, Urine Protein 30 H, Urine Glucose (UA) Normal, Urine Ketones Negative, Urine Occult Blood 250 H, Urine Nitrite Negative, Urine Bilirubin Negative, Urine Urobilinogen Normal, Ur Leukocyte Esterase 500 H, Urine RBC 25-50 SEEN, Urine WBC >100 SEEN, Ur Squamous Epith Cells 0-5 SEEN, Urine Bacteria 4+, Urine Mucus 2+ 09/10/24 16:40: Lactic Acid 0.7 09/10/24 21:08: POC Glucose 280 H 09/11/24 03:50: WBC 12.5 H, RBC 3.14 L, Hgb 8.2 L, Hct 26.0 L, MCV 82.8, MCH 26.1 L, MCHC 31.5 L, RDW Std Deviation 57.2 H, RDW Coeff of Kristyn 20.7 H, Plt Count 396, MPV 10.1, Immature Gran % (Auto) 0.600, Neut % (Auto) 66.8, Lymph % (Auto) 21.2, [place] % (Auto) 10.2 H, Eos % (Auto) 0.7, Baso % (Auto) 0.5, Absolute Neuts (auto) 8.4 H, Absolute Lymphs (auto) 2.65, Nucleated RBC % 0, Anisocytosis 1+, Sodium 137, Potassium 4.1, Chloride 108 H, Carbon Dioxide 25.0, Anion Gap 4 L, BUN 17, Creatinine 0.91, Estim Creat Clear Calc 49.94, Est GFR (MDRD) Af Amer 76, Est GFR (MDRD) Non-Af 63, BUN/Creatinine Ratio 18.6, Glucose 184 H, Calcium 7.8 L, Phosphorus 2.8, Magnesium 2.2, Total Bilirubin 0.40, AST 10 L, ALT 16, Alkaline Phosphatase 86, Total Protein 5.9 L, Albumin 2.1 L, Globulin 3.8, A lbumin/Globulin Ratio 0.6 L Micro: Microbiology 09/10/24 16:40 Blood Culture (Wb) - Anticubital Right Blood Culture - Preliminary 09/10/24 16:45 Mucosa - Nose SARS-CoV-2, Influenza & RSV (PCR) - Final Radiography Diagnostic Testing: Radiology Impression Abdomen/Pelvis CT 09/10/24 16:26 IMPRESSION: 1. Cholelithiasis. 2. Marked hepatomegaly. Electronically Signed: Jaime Lees MD at 18:05 EST , Physical Exam Narrative Seen and examined. Patient is states that she has increased frequency and urgency but no burning micturition. She also states she has history of recurrent UTI gets about 3 UTIs per year. She also recovered from pneumonia about 3 months ago. Physical exam General: Alert, Oriented x3, Cooperative HEENT: Atraumatic, PERRLA, EOMI, Normocephalic Oral: No Gingival or Mucosal Lesions/ Ulcerations Neck: Supple, No JVD, Negative Carotid Bruits Chest wall/Lungs: Air entry diminished in bilateral lung bases. Tachypnea, shallow breathing. No crepitation/rhonchi Cardiovascular: Sinus tachycardia normal S1, Normal S2, No M/G/R Abdomen: Bowel Sounds Present, Soft, Non Tender, Non-Distended : No dysuria. No renal angle tenderness. No suprapubic tenderness. Extremities: No edema, Capillary Refill Less than 3 Seconds Skin: Small skin tear over left subclavicular region Musculoskeletal: No Tenderness to Palpation of Joints or Extremities Neurological: Cranial nerves II-XII grossly intact, DTR 2+/4. No acute focal neurological deficit. Psych/Mental Status: flat affect Assessment & Plan Assessment/Plan (1) Debility: (2) Sepsis: (3) THANIA (acute kidney injury): (4) Leukocytosis: (5) UTI (urinary tract infection): PLAN: Plan 79-year-old female was admitted with generalized weakness for 1 week and difficulty in ambulation after after completing rehab for 14 days and concern of UTI with increased frequency and urgency for 1 day. She was not able to get off the commode at because of weakness. 1. Sepsis secondary urinary tract infection: Patient was admitted in ICU. The patient presented with sepsis with clinical indicators tachycardia, tachypnea, leukocytosis of due to suspected UTI as evidenced by organ dysfunction of THANIA. -IV fluids given per protocol with 30 cc/kg body weight -Broad-spectrum antibiotics with ceftriaxone to continue as initiated emergency department -Cultures are pending Superintendent [employer] was consulted as per protocol - 2. THANIA -Baseline serum creatinine 0.9 -Creatinine on presentation was 1.35. Was treated with IV fluid as per sepsis protocol. Repeat creatinine 0.9 baseline. THANIA resolved Hyponatremia -Mild at 134. Repeat sodium 137. Hyponatremia resolved Generalized weakness and debility-acute on chronic with acuity secondary to acute illness -PT/OT consultation -Case management/social work consultation--> patient just had recent extended stay at [facility] Chronic hypoxic respiratory failure secondary to COPD -Patient remains on her baseline 2 L nasal cannula -Continue to monitor -Hold home Spiriva -As needed albuterol and scheduled DuoNebs ordered DM-1 -Continue basal insulin. Glucose 280 Accu-Chek before meals and at bedtime with Humalog sliding scale coverage and hypoglycemia protocol. 1800 ADA diet Chronic severe anemia H&H 8.2/26%. Platelet count 396K. -Continue home iron supplementation History of paroxysmal atrial fibrillation with RVR -Currently sinus tachycardia -Continue home rivaroxaban -Continue home metoprolol -Current heart rate is reactive so will not treat acutely - Hypothyroidism -Continue home levothyroxine Essential hypertension/hyperlipidemia -Hold home amlodipine/Benazepril for now but restart if blood pressure will tolerate tomorrow -Continue home metoprolol -Continue home statin Overactive bladder -Continue home tolterodine History of bilateral PE -Remote -Continue home Xarelto Dementia -Mild cognitive impairment more likely as patient was alert and oriented on admission with mild intermittent confusion History of tobacco abuse -Recommend ongoing cessation DVT prophylaxis -Continue Xarelto CODE STATUS -Per discussion with patient DNR CCA with no intubation Charges/Coding Visit Charges Inpatient E&M: 17619 [facility] L3
[2024-09-11] MEDS: Tolterodine Tartrate 2 MG CAP.SA PO (08:16)
[2024-09-11] MEDS: Magnesium Chloride 64 MG Delay Rel.Tablet 128 MG PO (08:16)
[2024-09-11] MEDS: Ferrous Sulfate 325 MG Tablet PO (08:16)
[2024-09-11] MEDS: Pantoprazole Sodium 40 MG Tablet PO (08:17)
[2024-09-11] MEDS: Rivaroxaban 20 MG Tablet PO (08:18)
[2024-09-11] MEDS: Menthol/Lanolin/Calamine/Znox 113 GM Tube 1 APPLIC TOPICAL ×4 (08:19→22:06)
[2024-09-11] MEDS: Lactated Ringers 1,000 ML 75 ML IV (08:28)
[2024-09-11 08:41] LABS: Bedside Glucose 139 mg/dL (74-106)
--- NOTE | 2024-09-11 09:17 | EX.PCM.CONCC ---
Assessment & Plan Assessment/Plan (1) UTI (urinary tract infection): PLAN: Plan RECOMMENDATIONS: 1. Continue empiric antibiotics. 2. Encourage incentive spirometer use and mobilize patient as tolerated. 3. Continue home medications as tolerated. 4. The patient is medically stable for transfer out of the intensive care unit. IMPRESSIONS: 1. Suspected UTI with gram-negative bacteremia The patient presented with malodorous urine and generalized weakness, along with a history of pansensitive E. coli UTI. The patient does not currently have any evidence of end organ dysfunction. She remains hemodynamically stable. Plan to continue empiric antibiotics, pending finalized culture results. CT imaging of the abdomen and pelvis was unremarkable. 2. Mild THANIA Likely prerenal in etiology in the setting of #1. Creatinine has improved with volume expansion. Continue to monitor urine output. No indication for renal replacement therapy. 3. History of COPD/chronic hypoxemic respiratory failure/diabetes mellitus/generalized weakness/hypothyroidism Complicates care, management, recovery and prognosis. Continue home supplemental oxygen. Physical therapy to evaluate the patient. This note was generated with [employer] dictation software. It may contain incorrect words, spelling, and punctuation that were not noted in checking the note before signing. HPI Consult Data Date of Consult: 09/11/24 HPI Narrative Reason for Consultation: Sepsis HPI Narrative: The patient is an 79-year-old female, with a history as outlined below, who presented to the emergency department on September 10 with generalized weakness and foul-smelling urine. The patient does have a baseline supplemental oxygen requirement of 2 L/min at baseline. The patient has documented medical history that includes COPD, diabetes mellitus, paroxysmal atrial fibrillation with RVR, hypothyroidism, history of remote PE and prior tobacco abuse dependency. Of note, the patient did have a prior urine culture in June 2024 which was positive for pansensitive E. coli. On presentation to the emergency department, the patient was documented to be afebrile hemodynamically stable. She was mildly tachycardic and tachypneic. Laboratory evaluation revealed a white blood cell count of 13,000 with a hemoglobin of 9.2 g/dL and normal platelet count. Chemistry profile was notable for a creatinine of 1.35. Lactate was within normal limits. Urinalysis was positive for leukocyte esterase and 4+ urine bacteria. CT abdomen/pelvis demonstrated cholelithiasis along with evidence of hepatomegaly. The patient received supplemental IV fluid hydration and was started on empiric antibiotics. She was subsequently admitted to the medical intensive care unit for further management. 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 Memory loss HLD (hyperlipidemia) HTN (hypertension) Pulmonary embolism, bilateral Smoker COPD (chronic obstructive pulmonary disease) Home Medications ?Medication ?Instructions ?Recorded ?Last Taken ?Type amlodipine 5 mg-benazepril 10 mg 1 cap PO DAILY blood pressure 09/08/21 09/07/22 History capsule cholecalciferol (vitamin D3) 50 4,000 unit PO .COMPLEX vitamin 06/29/23 01/11/24 History mcg (2,000 unit) tablet (D3 DOTS) magnesium 200 mg tablet 400 mg PO DAILY supplement 06/29/23 Unknown History iron, carbonyl 45 mg tablet 45 mg PO DAILY ANEMIA #30 tabs 06/16/24 Unknown Rx tiotropium bromide 2.5 2 inh inhalation DAILY 06/29/24 Unknown History mcg/actuation mist for inhalation (Spiriva Respimat) acetaminophen 325 mg tablet 650 mg (2 x 325 mg) PO Q4H PRN PRN 07/02/24 Unknown Rx Fever, pain 1-1010 #0 tabs albuterol sulfate 2.5 mg/3 mL 2.5 mg (3 mL) inhalation Q2H PRN 07/02/24 Unknown Rx (0.083 %) solution for nebulization PRN Dyspnea, wheezing #0 mL ferrous sulfate 325 mg (65 mg 325 mg PO DAILYCM #0 tabs 07/02/24 Unknown Rx iron) tablet (FeroSul) levothyroxine 100 mcg tablet 100 mcg PO MoTuWeThFrSa@0600 #0 07/02/24 Unknown Rx tabs levothyroxine 150 mcg tablet 150 mcg PO Alston@0600 HYPOTHYROIDISM 07/02/24 Unknown Rx #0 tabs melatonin 3 mg tablet 3 mg PO QHS PRN PRN Insomnia #0 07/02/24 Unknown Rx tabs menthol 0.44 %-zinc oxide 20.6 % 1 applic topical 4X/DAY REDNESS #0 07/02/24 Unknown Rx topical ointment (Calmoseptine) grams metoprolol succinate 25 mg 25 mg PO DAILY HEART RATE #0 tabs 07/02/24 Unknown Rx tablet,extended release 24 hr nutrition tx glu 120 ml PO 4X/DAY #0 mL 07/02/24 Unknown Rx intol,lac-free,soy-fiber 0.06 gram-1.2 kcal/mL liquid (Glucerna 1.2 Remy) rivaroxaban 20 mg tablet (Xarelto) 20 mg PO DAILY CLOTTING #0 tabs 07/02/24 Unknown Rx sennosides 8.6 mg-docusate sodium 2 tab PO BID PRN PRN Constipation 07/02/24 Unknown Rx 50 mg tablet (Stimulant Laxative #0 tabs Plus) tolterodine 2 mg capsule,extended 2 mg PO DAILY #0 caps 07/02/24 Unknown Rx release 24 hr walker (Ultra-Light Rollator misc) #1 ea 09/05/24 Unknown Rx insulin aspart U-100 100 unit/mL subcut UD HYPERGLYCEMIA 09/10/24 Unknown History subcutaneous solution (Novolog U-100 Insulin aspart) insulin glargine-yfgn 100 unit/mL 7 unit subcut QHS 09/10/24 Unknown History subcutaneous solution (Semglee (insulin glargine-yfgn)) pantoprazole 40 mg tablet,delayed 40 mg PO DAILY GERD 09/10/24 Unknown History release simvastatin 10 mg tablet 10 mg PO DAILY HIGH CHOLESTEROL 09/10/24 Unknown History Allergy/AdvReac Type Severity Reaction Status Date / Time ciprofloxacin (From Cipro) Allergy Intermediate hives Verified 09/05/24 14:19 Sulfa (Sulfonamide Allergy Intermediate hives Verified 09/05/24 14:19 Antibiotics) Penicillins Allergy Rash Verified 09/05/24 14:19 Family History Father Diabetes Respiratory disease Mother No problems noted. 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 alcohol intake: current alcohol intake frequency: a few times a month substance use type: does not use ROS ROS Narrative 10 systems were reviewed with pertinent positives as noted in the HPI above. Physical Exam Const alert and no apparent distress Constitutional Narrative: is present at the bedside. General Appearance: cooperative HEENT normocephalic and head/scalp atraumatic Eyes PERRL, EOMs intact bilaterally and conjunctivae normal Neck supple General: trachea midline Chest inspection of chest normal Resp normal respiratory effort Auscultation: Negative for rales, rhonchi or wheezes Cardio S1 normal heart sound and S2 normal heart sound Rate: tachycardic GI normal to inspection, nondistended, normoactive bowel sounds Extremity no clubbing, cyanosis or edema Skin no rashes or lesions noted Neuro CN's II-XII intact bilaterally, moves all extremities and no focal motor deficits Psych Mood & Affect: flat affect Lab / Micro Data 09/11/24 03:50 09/11/24 03:50 Labs: Laboratory Results - last 24 hr 09/10/24 16:03: WBC 13.5 H, RBC 3.64 L, Hgb 9.2 L, Hct 30.5 L, MCV 83.8, MCH 25.3 L, MCHC 30.2 L, RDW Std Deviation 62.1 H, RDW Coeff of Kristyn 21.3 H, Plt Count 445, MPV 10.3, Immature Gran % (Auto) 0.400, Neut % (Auto) 63.5, Lymph % (Auto) 22.6, [place] % (Auto) 12.1 H, Eos % (Auto) 1.0, Baso % (Auto) 0.4, Absolute Neuts (auto) 8.6 H, Absolute Lymphs (auto) 3.06, Nucleated RBC % 0, Differential Comment SCANNED, Diff Path Review May foll, Reactive Lymphocytes 1+, Toxic Granulation 1+, Polychromasia RARE, Hypochromasia 1+, Anisocytosis 2+, Target Cells RARE, Sodium 134 L, Potassium 4.6, Chloride 102, Carbon Dioxide 27.0, Anion Gap 6, BUN 24 H, Creatinine 1.35 H, Est GFR (MDRD) Af Amer 48 L, Est GFR (MDRD) Non-Af 40 L, BUN/Creatinine Ratio 17.8, Glucose 178 H, Calcium 8.7, Troponin I High Sens 9, Lipase 30, Urine Color Yellow, Urine Clarity Cloudy, Urine pH 6.5, Ur Specific [place] 1.010, Urine Protein 30 H, Urine Glucose (UA) Normal, Urine Ketones Negative, Urine Occult Blood 250 H, Urine Nitrite Negative, Urine Bilirubin Negative, Urine Urobilinogen Normal, Ur Leukocyte Esterase 500 H, Urine RBC 25-50 SEEN, Urine WBC >100 SEEN, Ur Squamous Epith Cells 0-5 SEEN, Urine Bacteria 4+, Urine Mucus 2+ 09/10/24 16:40: Lactic Acid 0.7 09/10/24 21:08: POC Glucose 280 H 09/11/24 03:50: WBC 12.5 H, RBC 3.14 L, Hgb 8.2 L, Hct 26.0 L, MCV 82.8, MCH 26.1 L, MCHC 31.5 L, RDW Std Deviation 57.2 H, RDW Coeff of Kristyn 20.7 H, Plt Count 396, MPV 10.1, Immature Gran % (Auto) 0.600, Neut % (Auto) 66.8, Lymph % (Auto) 21.2, [place] % (Auto) 10.2 H, Eos % (Auto) 0.7, Baso % (Auto) 0.5, Absolute Neuts (auto) 8.4 H, Absolute Lymphs (auto) 2.65, Nucleated RBC % 0, Anisocytosis 1+, Sodium 137, Potassium 4.1, Chloride 108 H, Carbon Dioxide 25.0, Anion Gap 4 L, BUN 17, Creatinine 0.91, Estim Creat Clear Calc 49.94, Est GFR (MDRD) Af Amer 76, Est GFR (MDRD) Non-Af 63, BUN/Creatinine Ratio 18.6, Glucose 184 H, Calcium 7.8 L, Phosphorus 2.8, Magnesium 2.2, Total Bilirubin 0.40, AST 10 L, ALT 16, Alkaline Phosphatase 86, Total Protein 5.9 L, Albumin 2.1 L, Globulin 3.8, Albumin/Globulin Ratio 0.6 L 09/11/24 08:11: POC Glucose 139 H Micro: Microbiology 09/10/24 16:40 Blood Culture (Wb) - Anticubital Right Blood Culture - Preliminary 09/10/24 16:45 Mucosa - Nose SARS-CoV-2, Influenza & RSV (PCR) - Final Imaging Radiology Impression Abdomen/Pelvis CT 09/10/24 16:26 IMPRESSION: 1. Cholelithiasis. 2. Marked hepatomegaly. Electronically Signed: Jaime Lees MD at 18:05 EST , Charges/Coding Visit Charges Inpatient E&M: 96410 Init Hosp L3
[2024-09-11] MEDS: Ceftriaxone 1 GM/50 ML BAG IV (10:49)
[2024-09-11] MEDS: Metoprolol(XL)Succ 25 MG Tablet PO (10:49)
[2024-09-11] MEDS: Insulin Lispro 100 UNIT/ML INSULN.PEN SC ×3 (11:55→22:07)
--- NOTE | 2024-09-11 12:40 | CHAPLAIN ---
Type of Pastoral Visit _x__ Initial Visit ___ Follow-up Visit ___ On-call Visit ___ General Patient Visit ___ Spiritual Assessment ___ Family Conference ___ Bereavement ___ Rapid Response ___ Code Blue ___ Other (describe below) Pastoral Care Referral From _x__ Patient ___ Family ___ Nurse ___ Physician ___ Pattern Stamper ___ Display Designer ___ Other (describe below) Sacrament/Intervention _x__ Active listening ___ Anointing ___ Sikhism ___ Bereavement ___ Communion ___ Hannah exploration ___ ___ Life review _x__ Prayer ___ Reconciliation ___ Sacrament of Sick _x__ Supportive presence ___ Wedding ___ Other (describe below) Pastoral Comments SO does most of the talking but patient is alert; pt states that she is just so tired; SO says that she is making improvements and they are thankful; presence and prayer welcomed
[2024-09-11 14:29] LABS: Bedside Glucose 332 mg/dL (74-106)
--- NOTE | 2024-09-11 14:31 | CASEMGMT ---
Social Work Power of disability attorney for healthcare with the LW provision initialed is scanned into [employer], Manjeet Anthony is listed as healthcare Power of Adventure Education Teacher. MANDEEP Singh
--- NOTE | 2024-09-11 14:32 | CASEMGMT ---
Discharge Planning A list of SNF providers including quality and resource use data and consistent with the patient's preferred geographic region, medical needs, and insurance network was created in [employer] Guide.? This list was provided to the SW. Lori Muñoz Discharge Planning Asst.
--- NOTE | 2024-09-11 16:13 | CASEMGMT ---
Social Work- Sw met with pt and SO of 4 years. Pt and So report that they would like pt to d/c home with [facility], stating that [facility] was supposed to begin services tomorrow. Pt SO reports that he assists pt with self care and all ADL as needed; that they enjoy going to dinner and for drives in his hot jose maria [place] [employer] Machine Offbearer. Pt So reports they have a very small condo and pt would not need to ambulate more than 20' in condo. CHRISTAL updated RNCM. CHRISTAL collaborated with bedside RN who reports pt changed to PCU status. CHRISTAL updated PCU SW. BRIANNE Steele
[2024-09-11] MEDS: Insulin Glargine-YFGN 100 UNIT/ML Pen 10 UNIT SC (16:42)
[2024-09-11 20:44] LABS: Bedside Glucose 232 mg/dL (74-106)
[2024-09-11] MEDS: Atorvastatin Calcium 10 MG Tablet 5 MG PO (22:08)
[2024-09-11 22:51] LABS: Bedside Glucose 170 mg/dL (74-106)
[2024-09-12] VITALS (8 sets, daily range): BP systolic 121–151; BP diastolic 50–61; PULSE 86–100; RESP 17–18; TEMP 36.6–37; O2SAT 92–94; BMI 29.5
[2024-09-12] MEDS: Levothyroxine 100 MCG Tablet PO (06:17)
[2024-09-12 06:36] LABS: Bedside Glucose 135 mg/dL (74-106)
[2024-09-12 08:32] LABS: Pathologist Review Reviewed
--- NOTE | 2024-09-12 08:57 | PN.HOSP_ITS ---
Reason for Visit Reason for Visit: Diagnoses Sepsis, unspecified organism (09/10/24) Elevated white blood cell count, unspecified (09/10/24) Acute kidney failure, unspecified (09/10/24) Urinary tract infection, site not specified (09/10/24) Other malaise (09/10/24) Objective Data Objective Data Vital Signs: Vital Signs Temp Pulse Resp BP Pulse Ox O2 Del Method O2 Flow Rate 98.1 F 100 18 151/58 H 92 Nasal Cannula 2 09/12/24 03:52 09/12/24 03:52 09/12/24 03:52 09/12/24 03:52 09/12/24 08:03 09/12/24 08:30 09/12/24 08:30 Oxygen Flow Rate (L/min) 2 Oxygen Delivery Method Nasal Cannula Weight: 177 lb 4.026 oz Body Mass Index (BMI) 29.5 Intake & Output: Intake and Output for Last 24 Hours 09/10/24 09/11/24 09/12/24 23:59 23:59 23:59 Intake Total 2549 / 2549 1977.75 / 1977.75 Output Total 930 / 930 450 / 450 Balance 2549 / 2249 1048.75 / 1048.75 -450 / -450 Lab / Micro Data 09/11/24 03:50 09/11/24 03:50 Labs: Laboratory Results - last 24 hr 09/10/24 16:03: Diff Path Review Reviewed 09/11/24 11:53: POC Glucose 332 H 09/11/24 16:47: POC Glucose 232 H 09/11/24 22:02: POC Glucose 170 H 09/12/24 06:15: POC Glucose 135 H Micro: Microbiology 09/10/24 16:03 Urine, Clean Catch Urine Culture - Preliminary ESBL Klebsiella pneumoniae pne 09/10/24 16:40 Blood Culture (Wb) - Anticubital Right Blood Culture - Preliminary GNR lactose plasterer spot 09/10/24 16:45 Mucosa - Nose SARS-CoV-2, Influenza & RSV (PCR) - Final Physical Exam Narrative Seen and examined. Currently denies increased frequency urgency and burning micturition but was admitted with increased frequency and urgency but no burning micturition. No flank pain. She also states she has history of recurrent UTI gets about 3 UTIs per year. She also recovered from pneumonia about 3 months ago. Urine culture blood culture positive with ESBL Klebsiella pneumoniae. Physical exam General: Alert, Oriented x3, Cooperative HEENT: Atraumatic, PERRLA, EOMI, Normocephalic Oral: No Gingival or Mucosal Lesions/ Ulcerations Neck: Supple, No JVD, Negative Carotid Bruits Chest wall/Lungs: Air entry diminished in bilateral lung bases. No crepitation/rhonchi Cardiovascular: Sinus tachycardia normal S1, Normal S2, No M/G/R Abdomen: Bowel Sounds Present, Soft, Non Tender, Non-Distended : No dysuria. No renal angle tenderness. No suprapubic tenderness. Extremities: No edema, Capillary Refill Less than 3 Seconds Skin: Small skin tear over left subclavicular region Musculoskeletal: No Tenderness to Palpation of Joints or Extremities Neurological: Cranial nerves II-XII grossly intact, DTR 2+/4. No acute focal neurological deficit. Psych/Mental Status: flat affect Assessment & Plan Assessment/Plan (1) Debility: (2) Sepsis: (3) THANIA (acute kidney injury): (4) Leukocytosis: (5) UTI (urinary tract infection): PLAN: Plan 79-year-old female was admitted with generalized weakness for 1 week and difficulty in ambulation after after completing rehab for 14 days and concern of UTI with increased frequency and urgency for 1 day. She was not able to get off the commode at because of weakness. 1. Sepsis secondary urinary tract infection: Patient was admitted in ICU. The patient presented with sepsis with clinical indicators tachycardia, tachypnea, leukocytosis of due to suspected UTI as evidenced by organ dysfunction of THANIA. -IV fluids given per protocol with 30 cc/kg body weight -Broad-spectrum antibiotics with ceftriaxone to continue as initiated emergency department -Cultures are pending Pad Machine Offbearer was consulted as per protocol 09/12: Urine culture growing ESBL Klebsiella pneumoniae and blood culture GNR in anaerobic bottle therefore IV antibiotic changed from ceftriaxone to meropenem. ID consulted. Patient wanted to go home but advised to stay because of bacteremia 2. THANIA -Baseline serum creatinine 0.9 -Creatinine on presentation was 1.35. Was treated with IV fluid as per sepsis protocol. Repeat creatinine 0.9 baseline. THANIA resolved Hyponatremia -Mild at 134. Repeat sodium 137. Hyponatremia resolved Generalized weakness and debility-acute on chronic with acuity secondary to acute illness -PT/OT consultation -Case management/social work consultation--> patient just had recent extended stay at SNF Chronic hypoxic respiratory failure secondary to COPD -Patient remains on her baseline 2 L nasal cannula -Continue to monitor -Hold home Spiriva -As needed albuterol and scheduled DuoNebs ordered DM-1 -Continue basal insulin. Glucose 280 Accu-Chek before meals and at bedtime with Humalog sliding scale coverage and hypoglycemia protocol. 1800 ADA diet 09/12: Glucose 184 in BMP. Chronic severe anemia H&H 8.2/26%. Platelet count 396K. -Continue home iron supplementation 09/12: CBC ordered History of paroxysmal atrial fibrillation with RVR -Currently sinus tachycardia -Continue home rivaroxaban -Continue home metoprolol -Current heart rate is reactive so will not treat acutely - Hypothyroidism -Continue home levothyroxine Essential hypertension/hyperlipidemia -Hold home amlodipine/Benazepril for now but restart if blood pressure will tolerate tomorrow -Continue home metoprolol -Continue home statin Overactive bladder -Continue home tolterodine History of bilateral PE -Remote -Continue home Xarelto Dementia -Mild cognitive impairment more likely as patient was alert and oriented on admission with mild intermittent confusion History of tobacco abuse -Recommend ongoing cessation DVT prophylaxis -Continue Xarelto CODE STATUS -Per discussion with patient DNR CCA with no intubation Charges/Coding Visit Charges Inpatient E&M: 36468 Subs Hosp L2
[2024-09-12] MEDS: Metoprolol(XL)Succ 25 MG Tablet PO ×2 (09:36→21:43)
[2024-09-12] MEDS: Senna/Docusate Sodium 1 Tablet 2 TABLET PO ×2 (09:36→21:43)
[2024-09-12] MEDS: Tolterodine Tartrate 2 MG CAP.SA PO (09:37)
[2024-09-12] MEDS: Rivaroxaban 20 MG Tablet PO (09:37)
[2024-09-12] MEDS: Menthol/Lanolin/Calamine/Znox 113 GM Tube 1 APPLIC TOPICAL ×4 (09:37→21:45)
[2024-09-12] MEDS: Ferrous Sulfate 325 MG Tablet PO (09:37)
[2024-09-12] MEDS: Pantoprazole Sodium 40 MG Tablet PO (09:37)
[2024-09-12] MEDS: Magnesium Chloride 64 MG Delay Rel.Tablet 128 MG PO (09:37)
[2024-09-12] MEDS: Polyethylene Glycol 3350 17 GM PACKET PO ×2 (09:38→21:43)
[2024-09-12] MEDS: Meropenem 1 GM in 0.9% Normal Saline (100mL MB+) 100 ML IV ×2 (10:31→21:43)
[2024-09-12] MEDS: Insulin Lispro 100 UNIT/ML INSULN.PEN SC ×3 (11:31→21:55)
[2024-09-12 11:50] LABS: Bedside Glucose 405 mg/dL (74-106)
--- NOTE | 2024-09-12 14:00 | PCM.CONS.GEN ---
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 Memory loss HLD (hyperlipidemia) HTN (hypertension) Pulmonary embolism, bilateral Smoker COPD (chronic obstructive pulmonary disease) Home Medications ?Medication ?Instructions ?Recorded ?Last Taken ?Type amlodipine 5 mg-benazepril 10 mg 1 cap PO DAILY blood pressure 09/08/21 09/07/22 History capsule cholecalciferol (vitamin D3) 50 4,000 unit PO .COMPLEX vitamin 06/29/23 01/11/24 History mcg (2,000 unit) tablet (D3 DOTS) magnesium 200 mg tablet 400 mg PO DAILY supplement 06/29/23 Unknown History iron, carbonyl 45 mg tablet 45 mg PO DAILY ANEMIA #30 tabs 06/16/24 Unknown Rx tiotropium bromide 2.5 2 inh inhalation DAILY 06/29/24 Unknown History mcg/actuation mist for inhalation (Spiriva Respimat) acetaminophen 325 mg tablet 650 mg (2 x 325 mg) PO Q4H PRN PRN 07/02/24 Unknown Rx Fever, pain 1-1010 #0 tabs albuterol sulfate 2.5 mg/3 mL 2.5 mg (3 mL) inhalation Q2H PRN 07/02/24 Unknown Rx (0.083 %) solution for nebulization PRN Dyspnea, wheezing #0 mL ferrous sulfate 325 mg (65 mg 325 mg PO DAILYCM #0 tabs 07/02/24 Unknown Rx iron) tablet (FeroSul) levothyroxine 100 mcg tablet 100 mcg PO MoTuWeThFrSa@0600 #0 07/02/24 Unknown Rx tabs levothyroxine 150 mcg tablet 150 mcg PO [place]@0600 HYPOTHYROIDISM 07/02/24 Unknown Rx #0 tabs melatonin 3 mg tablet 3 mg PO QHS PRN PRN Insomnia #0 07/02/24 Unknown Rx tabs menthol 0.44 %-zinc oxide 20.6 % 1 applic topical 4X/DAY REDNESS #0 07/02/24 Unknown Rx topical ointment (Calmoseptine) grams metoprolol succinate 25 mg 25 mg PO DAILY HEART RATE #0 tabs 07/02/24 Unknown Rx tablet,extended release 24 hr nutrition tx glu 120 ml PO 4X/DAY #0 mL 07/02/24 Unknown Rx intol,lac-free,soy-fiber 0.06 gram-1.2 kcal/mL liquid (Glucerna 1.2 Remy) rivaroxaban 20 mg tablet (Xarelto) 20 mg PO DAILY CLOTTING #0 tabs 07/02/24 Unknown Rx sennosides 8.6 mg-docusate sodium 2 tab PO BID PRN PRN Constipation 07/02/24 Unknown Rx 50 mg tablet (Stimulant Laxative #0 tabs Plus) tolterodine 2 mg capsule,extended 2 mg PO DAILY #0 caps 07/02/24 Unknown Rx release 24 hr walker (Ultra-Light Rollator misc) #1 ea 09/05/24 Unknown Rx insulin aspart U-100 100 unit/mL subcut UD HYPERGLYCEMIA 09/10/24 Unknown History subcutaneous solution (Novolog U-100 Insulin aspart) insulin glargine-yfgn 100 unit/mL 7 unit subcut QHS 09/10/24 Unknown History subcutaneous solution (Semglee (insulin glargine-yfgn)) pantoprazole 40 mg tablet,delayed 40 mg PO DAILY GERD 09/10/24 Unknown History release simvastatin 10 mg tablet 10 mg PO DAILY HIGH CHOLESTEROL 09/10/24 Unknown History Allergy/AdvReac Type Severity Reaction Status Date / Time ciprofloxacin (From Cipro) Allergy Intermediate hives Verified 09/05/24 14:19 Sulfa (Sulfonamide Allergy Intermediate hives Verified 09/05/24 14:19 Antibiotics) Penicillins Allergy Rash Verified 09/05/24 14:19 Family History Father Diabetes Respiratory disease Mother No problems noted. 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 alcohol intake: current alcohol intake frequency: a few times a month substance use type: does not use Lab / Micro Data 09/11/24 03:50 09/11/24 03:50 Labs: Laboratory Results - last 24 hr 09/10/24 16:03: Diff Path Review Reviewed 09/11/24 11:53: POC Glucose 332 H 09/11/24 16:47: POC Glucose 232 H 09/11/24 22:02: POC Glucose 170 H 09/12/24 06:15: POC Glucose 135 H 09/12/24 11:29: POC Glucose 405 H Micro: Microbiology 09/10/24 16:03 Urine, Clean Catch Urine Culture - Preliminary ESBL Klebsiella pneumoniae pne 09/10/24 16:40 Blood Culture (Wb) - Anticubital Right Blood Culture - Preliminary GNR lactose fish hatchery laborer
--- NOTE | 2024-09-12 15:31 | CON.PCM.ID_ITS ---
Assessment & Plan Assessment/Plan (1) Bacteremia due to Gram-negative bacteria: PLAN: Ucx with ESBL, cont meropenem, feeling ok. Will follow, thank you HPI Consult Data Date of Consult: 09/12/24 HPI Narrative Reason for Consultation: bacteremia HPI Narrative: LIVIER SMALLS, is a 79 F with several days of mild weakness, had some difficulty ambulating. Denies fever, chills, abd/flank pain, dysuria, n/v/d. Came to ED, admitted on zosyn, ucx and bcx now (+), changed to meropenem. Still feeling ok, no new complaints. Full ROS performed and neg except as noted above. 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 Memory loss HLD (hyperlipidemia) HTN (hypertension) Pulmonary embolism, bilateral Smoker COPD (chronic obstructive pulmonary disease) Home Medications ?Medication ?Instructions ?Recorded ?Last Taken ?Type amlodipine 5 mg-benazepril 10 mg 1 cap PO DAILY blood pressure 09/08/21 09/07/22 History capsule cholecalciferol (vitamin D3) 50 4,000 unit PO .COMPLEX vitamin 06/29/23 01/11/24 History mcg (2,000 unit) tablet (D3 DOTS) magnesium 200 mg tablet 400 mg PO DAILY supplement 06/29/23 Unknown History iron, carbonyl 45 mg tablet 45 mg PO DAILY ANEMIA #30 tabs 06/16/24 Unknown Rx tiotropium bromide 2.5 2 inh inhalation DAILY 06/29/24 Unknown History mcg/actuation mist for inhalation (Spiriva Respimat) acetaminophen 325 mg tablet 650 mg (2 x 325 mg) PO Q4H PRN PRN 07/02/24 Unknown Rx Fever, pain 1-10/10 #0 tabs albuterol sulfate 2.5 mg/3 mL 2.5 mg (3 mL) inhalation Q2H PRN 07/02/24 Unknown Rx (0.083 %) solution for nebulization PRN Dyspnea, wheezing #0 mL ferrous sulfate 325 mg (65 mg 325 mg PO DAILYCM #0 tabs 07/02/24 Unknown Rx iron) tablet (FeroSul) levothyroxine 100 mcg tablet 100 mcg PO MoTuWeThFrSa@0600 #0 07/02/24 Unknown Rx tabs levothyroxine 150 mcg tablet 150 mcg PO Alston@0600 HYPOTHYROIDISM 07/02/24 Unknown Rx #0 tabs melatonin 3 mg tablet 3 mg PO QHS PRN PRN Insomnia #0 07/02/24 Unknown Rx tabs menthol 0.44 %-zinc oxide 20.6 % 1 applic topical 4X/DAY REDNESS #0 07/02/24 Unknown Rx topical ointment (Calmoseptine) grams metoprolol succinate 25 mg 25 mg PO DAILY HEART RATE #0 tabs 07/02/24 Unknown Rx tablet,extended release 24 hr nutrition tx glu 120 ml PO 4X/DAY #0 mL 07/02/24 Unknown Rx intol,lac-free,soy-fiber 0.06 gram-1.2 kcal/mL liquid (Glucerna 1.2 Remy) rivaroxaban 20 mg tablet (Xarelto) 20 mg PO DAILY CLOTTING #0 tabs 07/02/24 Unknown Rx sennosides 8.6 mg-docusate sodium 2 tab PO BID PRN PRN Constipation 07/02/24 Unknown Rx 50 mg tablet (Stimulant Laxative #0 tabs Plus) tolterodine 2 mg capsule,extended 2 mg PO DAILY #0 caps 07/02/24 Unknown Rx release 24 hr walker (Ultra-Light Rollator mis) #1 ea 09/05/24 Unknown Rx insulin aspart U-100 100 unit/mL subcut UD HYPERGLYCEMIA 09/10/24 Unknown History subcutaneous solution (Novolog U-100 Insulin aspart) insulin glargine-yfgn 100 unit/mL 7 unit subcut QHS 09/10/24 Unknown History subcutaneous solution (Semglee (insulin glargine-yfgn)) pantoprazole 40 mg tablet,delayed 40 mg PO DAILY GERD 09/10/24 Unknown History release simvastatin 10 mg tablet 10 mg PO DAILY HIGH CHOLESTEROL 09/10/24 Unknown History Allergy/AdvReac Type Severity Reaction Status Date / Time ciprofloxacin (From Cipro) Allergy Intermediate hives Verified 09/05/24 14:19 Sulfa (Sulfonamide Allergy Intermediate hives Verified 09/05/24 14:19 Antibiotics) Penicillins Allergy Rash Verified 09/05/24 14:19 Family History Father Diabetes Respiratory disease Mother No problems noted. 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 alcohol intake: current alcohol intake frequency: a few times a month substance use type: does not use Physical Exam Const alert and no apparent distress General Appearance: cooperative HEENT normocephalic and head/scalp atraumatic Eyes PERRL and EOMs intact bilaterally Neck supple and No nodes Resp normal air movement and clear to auscultation bilaterally Cardio regular rate and regular rhythm GI soft to palpation, non-tender and non-distended Extremity General Extremity: Negative for edema Skin no rashes or lesions noted Neuro CN's II-XII intact bilaterally Lab / Micro Data Attestation: I reviewed the patient's lab results. 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
[2024-09-12] MEDS: Insulin Glargine-YFGN 100 UNIT/ML Pen 10 UNIT SC (17:00)
[2024-09-12 17:23] LABS: Bedside Glucose 361 mg/dL (74-106)
[2024-09-12] MEDS: Atorvastatin Calcium 10 MG Tablet 5 MG PO (21:44)
[2024-09-12 22:41] LABS: Bedside Glucose 270 mg/dL (74-106)
[2024-09-13] VITALS (8 sets, daily range): BP systolic 134–149; BP diastolic 55–76; PULSE 82–108; RESP 16–18; TEMP 36–36.8; O2SAT 87–96; BMI 29.7
[2024-09-13] MEDS: Levothyroxine 100 MCG Tablet PO (06:45)
[2024-09-13 06:47] LABS: Absolute Lymphocyte Count 2.47 X10^3/uL (0.83-4.51); Absolute Neutrophil Count 6.3 X10^3/uL (2.0-7.7); Basophil# 0.06 X10^3/uL; Basophil% 0.6 % (0-1); Eosinophil# 0.35 X10^3/uL; Eosinophils% 3.4 % (0-5); Hematocrit 26.2 % (37-47); Hemoglobin 7.6 g/dL (12.0-15.0); Lymphocyte # 2.47 X10^3/ul (0.83-4.51); Lymphocyte % 24.1 % (19-41); Mean Corpuscular Hgb 24.1 pg (27.0-32.0); Mean Corpuscular Volume 83.2 fL (81-99); Mean Platelet Vol. 10.1 fl (6.2-12.0); Monocyte# 1.03 X10^3/uL; Monocyte% 10.1 % (0-10); NRBC Flagged by Analyzer 0 % (0-5); Neutrophil # 6.28 X10^3/uL (2.7-7.7); Neutrophil % 61.4 % (47-70); POSITIVE MORPHOLOGY YES; Platelet Count 390 K/mm3 (150-450); RBC Distribution Width CV 20.3 % (11.6-14.6); RBC Distribution Width SD 55.2 fl (35.1-43.9); Red Blood Count 3.15 M/mm3 (4.2-5.4); White Blood Count 10.2 K/mm3 (4.4-11.0)
[2024-09-13 07:04] LABS: Bedside Glucose 108 mg/dL (74-106)
[2024-09-13 07:13] LABS: Differential Indicated SCAN CRITERIA MET
[2024-09-13 07:20] LABS: Anion Gap 5 (5-15); BUN 18 mg/dL (7-18); BUN/Creat Ratio 18.8 RATIO (10-20); Calcium,Total 8.3 mg/dL (8.5-10.1); Chloride 108 mmol/L (98-107); Creatinine, Serum 0.96 mg/dL (0.55-1.02); EST Glomerular Filtration Rate 59 mL/min (>60); Est Glom Filt Rate - Afr Amer 72 mL/min (>60); Estimated Creatinine Clearance 48.38 ml/min; Glucose 107 mg/dL (74-106); Potassium 4.1 mmol/L (3.5-5.1); Sodium Level 138 mmol/L (136-145)
[2024-09-13 08:27] LABS: Anisocytosis 1+; Target Cells 1+
[2024-09-13 08:28] LABS: Ovalocyte 1+; Schistocytes 1+
[2024-09-13 08:29] LABS: Polychromasia 1+
[2024-09-13] MEDS: Ferrous Sulfate 325 MG Tablet PO (08:40)
[2024-09-13] MEDS: Menthol/Lanolin/Calamine/Znox 113 GM Tube 1 APPLIC TOPICAL ×2 (08:40→12:45)
[2024-09-13] MEDS: Magnesium Chloride 64 MG Delay Rel.Tablet 128 MG PO (08:41)
[2024-09-13] MEDS: Tolterodine Tartrate 2 MG CAP.SA PO (08:41)
[2024-09-13] MEDS: Polyethylene Glycol 3350 17 GM PACKET PO (08:41)
[2024-09-13] MEDS: Pantoprazole Sodium 40 MG Tablet PO (08:42)
[2024-09-13] MEDS: Senna/Docusate Sodium 1 Tablet 2 TABLET PO (08:42)
[2024-09-13] MEDS: Metoprolol(XL)Succ 25 MG Tablet PO (08:42)
[2024-09-13] MEDS: Meropenem 1 GM in 0.9% Normal Saline (100mL MB+) 100 ML IV (08:56)
--- NOTE | 2024-09-13 10:10 | PN.ID_ITS ---
Physical Exam Narrative Feeling well, no fever, no n/v/d, no abd pain Const alert and no apparent distress General Appearance: cooperative Resp normal air movement and clear to auscultation bilaterally Cardio regular rate and regular rhythm GI soft to palpation, non-tender and non-distended Skin no rashes or lesions noted ID ID: Route of nutrition/ use of supplements: [] Nutritional Intake: [] IV Site: [] King Catheter: [] Assessment & Plan Assessment/Plan (1) Bacteremia due to Gram-negative bacteria: PLAN: Ucx and Bcx with ESBL kleb pneumo, feeling well. Will order midline and one week iv erta. Will follow prn, d/w behavioral health case manager
[2024-09-13] MEDS: Sodium Ferric Gluconat/Sucrose 250 MG in 0.9% Normal Saline (250mL Bag) 250 ML 135 MG IV (10:15)
--- NOTE | 2024-09-13 10:18 | CASEMGMT ---
KRISTINE ALEMAN reviewed progress with therapy, patient required moderate assistx1 for sit to stand and minimal assistx1 for ambulation of 45feet. KRISTINE ALEMAN updated by ID that patient will need once daily IV atb x1week. KRISTINE ALEMAN in to room, significant other not at bedside, patient has diagnosis of dementia. KRISTINE ALEMAN called significant other and POA, Dillon, to discuss needs at discharge. KRISTINE ALEMAN udpated Don with patient's therapy progress and need for IV ATB at discharge. Per Dillon, he does not feel he will be able to handle patient's needs at home and would like patient to go to SNF at discharge. KRISTINE ALEMAN reviewed list of SNF via phone with Dillon. Don prefers 1. [facility] and 2. TCU. Dillon had no further questions or concerns. KRISTINE ALEMAN updated SW regarding request for [facility] at discharge. LOVE will continue to follow this patient and plan for a safe discharge.
--- NOTE | 2024-09-13 10:42 | CASEMGMT ---
Per RN CM patient's significant other requested a referral be sent to [facility] and if [facility] cannot take patient then TCU. SW sent a referral to [facility] and TCU. Janet HENSLEY
--- NOTE | 2024-09-13 11:10 | TREXTCAR_ITS ---
Diet Diet Order/Speech Therapy: 09/10/24 19:49 Diet: Consistent Carb - Calorie Controlled Dietary Modifications:: Cardiac / Heart Healthy How many daily calories?: 1800 calorie DC O2, CPAP, BIPAP needs RN Home O2 Qualification: Home O2 Qualification: Is the patient on home oxygen Yes 09/13/24 08:49 Home O2 Qualification: AT REST 1-Pulse Ox at rest 91 09/13/24 08:49 1- Oxygen flow rate at rest 2 09/13/24 08:49 Home O2 Qualification: WITH AMBULATION 1- Pulse Ox with ambulation 87 09/13/24 08:49 1- Oxygen Flow Rate with 2 09/13/24 08:49 ambulation 2- Pulse Ox with ambulation 92 09/13/24 08:49 2- Oxygen Flow Rate with 3 09/13/24 08:49 ambulation Additional Home O2 Discharge instructions: Yes Type of respiratory needs?: Oxygen Oxygen frequency: Continuous Continuous oxygen liters per minute: 3 L/m Wound(s) CHEST: Wound Type: Abrasion left cheek: Wound Type: Abrasion Problem/Diagnosis (1) Bacteremia due to Gram-negative bacteria: Status: Acute Code(s): R78.81 - Bacteremia Plan 79-year-old female was admitted with generalized weakness for 1 week and difficulty in ambulation after after completing rehab for 14 days and concern of UTI with increased frequency and urgency for 1 day. She was not able to get off the commode at because of weakness. 1. Sepsis secondary urinary tract infection: Patient was admitted in ICU. The patient presented with sepsis with clinical indicators tachycardia, tachypnea, l eukocytosis of due to suspected UTI as evidenced by organ dysfunction of THANIA. -IV fluids given per protocol with 30 cc/kg body weight -Broad-spectrum antibiotics with ceftriaxone to continue as initiated emergency department -Cultures are pending Upholstery Bundler was consulted as per protocol 09/12: Urine culture growing ESBL Klebsiella pneumoniae and blood culture GNR in anaerobic bottle therefore IV antibiotic changed from ceftriaxone to meropenem. ID consulted. Patient wanted to go home but advised to stay because of bacteremia 2. THANIA -Baseline serum creatinine 0.9 -Creatinine on presentation was 1.35. Was treated with IV fluid as per sepsis protocol. Repeat creatinine 0.9 baseline. THANIA resolved Hyponatremia -Mild at 134. Repeat sodium 137. Hyponatremia resolved Generalized weakness and debility-acute on chronic with acuity secondary to acute illness -PT/OT consultation -Case management/social work consultation--> patient just had recent extended stay at SNF Chronic hypoxic respiratory failure secondary to COPD -Patient remains on her baseline 2 L nasal cannula -Continue to monitor -Hold home Spiriva -As needed albuterol and scheduled DuoNebs ordered DM-1 -Continue basal insulin. Glucose 280 Accu-Chek before meals and at bedtime with Humalog sliding scale coverage and hypoglycemia protocol. 1800 ADA diet 09/12: Glucose 184 in BMP. Chronic severe anemia H&H 8.2/26%. Platelet count 396K. -Continue home iron supplementation 09/12: CBC ordered History of paroxysmal atrial fibrillation with RVR -Currently sinus tachycardia -Continue home rivaroxaban -Continue home metoprolol -Current heart rate is reactive so will not treat acutely - Hypothyroidism -Continue home levothyroxine Essential hypertension/hyperlipidemia -Hold home amlodipine/Benazepril for now but restart if blood pressure will tolerate tomorrow -Continue home metoprolol -Continue home statin Overactive bladder -Continue home tolterodine History of bilateral PE -Remote -Continue home Xarelto Dementia -Mild cognitive impairment more likely as patient was alert and oriented on admission with mild intermittent confusion History of tobacco abuse -Recommend ongoing cessation DVT prophylaxis -Continue Xarelto CODE STATUS -Per discussion with patient DNR CCA with no intubation Allergies/Procedures Done in Hospital Allergies ciprofloxacin (From Cipro) Allergy (Intermediate, Verified 09/05/24 14:19) hives Sulfa (Sulfonamide Antibiotics) Allergy (Intermediate, Verified 09/05/24 14:19) hives Penicillins Allergy (Verified 09/05/24 14:19) Rash Type of Care/Length of Stay Estimated LOS: Convalescent Care Less Than 30 days Type of Care Needed: Skilled Rehab Potential: Good Prognosis: Good Additional Orders/Day of Discharge Day of Discharge: 09/13/24 Dietary and Speech Recommendations Dietitian Recommendations/Changes: Continue cardiac; 1800 calorie controlled diet and 120ml glucerna shake 4x daily with medpass. Will adjust ONS, as needed. Will monitor weight, as available. Reviewed and approved by Alissa Cool, MS, RD, LD. Discharge Plan Admission Admit Date/Time: 09/10/24 18:50 Primary Reason for Your Visit: ESBL UTI and bacteremia Attending Provider: Ronaldo Hickey Primary Care Provider: Shena Jeffers Consulting Providers: Roxi Velázquez; Fracisco Jeffers Instructions Additional Instructions / Restrictions: Hold scheduled insulin; Humalog and glargine insulin if glucose is less than 130 mg/dL Discharge Orders/Prescriptions Prescriptions: New ertapenem 1 gram Recon Soln 1 g IV Q24 7 Days Qty: 7 0RF Rx Instructions: stop date 09/20/24. Dx: esbl bacteremia. Weekly bmp, cbc, and LFT. Fax to [phone]. Routine midline care per protocol. insulin lispro [Humalog KwikPen Insulin] 100 unit/mL Insulin Pen See Protocol subcut ACHS Qty: 0 0RF Protocol: 4. Sliding Scale Insulin High-Med Dosing Condition: 150-199 mg/dl = 2 units Condition: 200-259 mg/dl = 4 units Condition: 260-324 mg/dl = 6 units Condition: 325-374 mg/dl = 8 units Condition: 375-409 mg/dl = 10 units Condition: 410-449 mg/dl = 11 units Condition: Greater than 449 call physician Protocol Text: Suggested for: - Patients on Total Daily Insulin Dose of 56-80 units - Patient who are known to be insulin resistant or septic HIGH MEDIUM DOSING ALGORITHM insulin glargine-yfgn 100 unit/mL (3 mL) Insulin Pen 10 unit subcut DINNER Qty: 0 0RF insulin lispro [Humalog KwikPen Insulin] 100 unit/mL insulin pen 5 unit subcut TIDCM 30 Days Qty: 15 0RF Rx Instructions: Hold if glucose less than 130 mg/dl Continued (DME) Ultra-Light Rollator Misc See Rx Instructions .Route Qty: 1 0RF Rx Instructions: WITH SEAT magnesium 200 mg tablet 400 mg PO DAILY cholecalciferol (vitamin D3) [D3 DOTS] 50 mcg (2,000 unit) tablet 4,000 unit PO .COMPLEX Rx Instructions: 4,000 units orally every other day; iron, carbonyl 45 mg tablet 45 mg PO DAILY Qty: 30 0RF Patient Comments: TAKES A 65MG TABLET BECAUSE THEY CAN NOT FIND A 45MG AT STORE Spiriva Respimat 2.5 mcg/actuation mist 2 inh INHALATION DAILY acetaminophen 325 mg Tablet 650 mg PO Q4H PRN PRN (Reason: Fever, pain 1-08/02) Qty: 0 0RF albuterol sulfate 2.5 mg /3 mL (0.083 %) Solution For Nebulization 2.5 mg inhalation Q2H PRN PRN (Reason: Dyspnea, wheezing) Qty: 0 0RF Glucerna 1.2 Remy 0.06-1.2 gram-kcal/mL Liquid 120 ml PO 4X/DAY Qty: 0 0RF ferrous sulfate [FeroSul] 325 mg (65 mg iron) Tablet 325 mg PO DAILYCM Qty: 0 0RF levothyroxine 100 mcg Tablet 100 mcg PO MoTuWeThFrSa@0600 Qty: 0 0RF levothyroxine 150 mcg Tablet 150 mcg PO Alston@0600 Qty: 0 0RF melatonin 3 mg Tablet 3 mg PO QHS PRN PRN (Reason: Insomnia) Qty: 0 0RF menthol-zinc oxide [Calmoseptine] 0.44-20.6 % Ointment 1 applic topical 4X/DAY Qty: 0 0RF Protocol: *Topical Application Instructions APPLICATION INSTRUCTIONS: apply to affected region tolterodine 2 mg Capsule,Extended Release 24hr 2 mg PO DAILY Qty: 0 0RF metoprolol succinate 25 mg Tablet Extended Release 24 Hr 25 mg PO DAILY Qty: 0 0RF Patient Comments: HAS NOT STARTED YET 09/10 insulin aspart U-100 [Novolog U-100 Insulin aspart] 100 unit/mL solution subcut UD simvastatin 10 mg tablet 10 mg PO DAILY pantoprazole 40 mg tablet,delayed release (DR/EC) 40 mg PO DAILY amlodipine-benazepril 5-10 mg capsule 1 cap PO DAILY 30 Days Qty: 0 0RF Rx Instructions: Hold for SBP less than 130 mmHg Changed sennosides-docusate sodium [Stimulant Laxative Plus] 8.6-50 mg Tablet 2 tab PO BID Qty: 0 0RF Held Xarelto 20 mg Tablet 20 mg PO DAILY Qty: 0 0RF Hold Instructions: Hold for 1 week till hemoglobin more than 8 g%. Discontinued insulin glargine-yfgn [Semglee(insulin glargine-yfgn)] 100 unit/mL solution 7 unit subcut QHS Referrals / Follow Up: Shena Jeffers DO [Primary Care Provider] - Within 2 Weeks Fracisco Jeffers MD [Med Staff - Active Staff] - Within 1 Week Disposition Disposition (needs filled in before D/C Order can be placed): Home, Self Care
[2024-09-13] MEDS: Insulin Lispro 100 UNIT/ML INSULN.PEN SC ×2 (12:44→17:05)
[2024-09-13 13:06] LABS: Bedside Glucose 379 mg/dL (74-106)
[2024-09-13] MEDS: Ertapenem Sod 1 GM in 0.9% Normal Saline (50mL MB+) 50 ML IV (13:13)
--- NOTE | 2024-09-13 13:55 | CASEMGMT ---
RN LOVE called Dillon COOPER, to complete IMM. RN LOVE explained IMM to Dillon over the phone. Dillon voiced understanding and provided telephone consent. IMM filed in chart. Copy placed in patient's room. Don had no further questions or concerns.
--- NOTE | 2024-09-13 14:32 | CASEMGMT ---
RN LOVE called Dillon COOPER, to complete IMM. RN LOVE explained IMM to Dillon over the phone. Dillon voiced understanding and provided telephone consent. IMM filed in chart.
--- NOTE | 2024-09-13 14:33 | CASEMGMT ---
[facility] TCU accepted patient. Armen Cano has not responded. CHRISTAL called patient's significant other Don. CHRISTAL let Don know that TCU accepted patient and [facility] Cano has not given an answer yet. Don said they will go with TCU. CHRISTAL notified Don that patient may go today, but someone will let him know for sure. CHRISTAL notified physician. Plan: d/c to [facility] TCU Janet HENSLEY
--- NOTE | 2024-09-13 15:17 | DS.PCM_ITS ---
Providers Date of Admission: 09/10/24 Date of Discharge: 09/13/24 Primary Care Physician: Dr. Shena Jeffers DO Consultations 09/10/24 19:48 Consult: Clean Up Person / Pulmonary Medicine Routine Consulting Provider: Intensivists/Pulmonary Med Reason for Consult: Sepsis EMERGENT Consult: No Notified: Yes Date Notified: 09/11/24 Time Notified: 05:23 Method of Notification: Text 09/12/24 08:55 Consult: Infectious Disease Routine Consulting Provider: Fracisco Jeffers Reason for Consult: ESBL positive UTI and bacteremia, sepsis EMERGENT Consult: No Notified: Yes Date Notified: 09/12/24 Time Notified: 08:55 Method of Notification: Text Reason For Visit: SEPSIS 2/2 UTI Diagnosis Discharge Diagnosis (1) Bacteremia due to Gram-negative bacteria: Status: Acute Code(s): R78.81 - Bacteremia Plan 79-year-old female was admitted with generalized weakness for 1 week and difficulty in ambulation after after completing rehab for 14 days and concern of UTI with increased frequency and urgency for 1 day. She was not able to get off the commode at because of weakness. 1. Sepsis secondary urinary tract infection: Patient was admitted in ICU. The patient presented with sepsis with clinical indicators tachycardia, tachypnea, leukocytosis of due to suspected UTI as evidenced by organ dysfunction of THANIA. -IV fluids given per protocol with 30 cc/kg body weight -Broad-spectrum antibiotics with ceftriaxone to continue as initiated emergency department -Cultures are pending Clean Up Person was consulted as per protocol 09/12: Urine culture growing ESBL Klebsiella pneumoniae and blood culture GNR in anaerobic bottle therefore IV antibiotic changed from ceftriaxone to meropenem. ID consulted. Patient wanted to go home but advised to stay because of bacteremia 09/13: Blood culture and urine culture shows Klebsiella pneumoniae. Patient was seen by ID and discharged on ertapenem 1 g daily for 1 week through midline. Leukocytosis resolved. 2. THANIA -Baseline serum creatinine 0.9 -Creatinine on presentation was 1.35. Was treated with IV fluid as per sepsis protocol. Repeat creatinine 0.9 baseline. THANIA resolved Hyponatremia -Mild at 134. Repeat sodium 137. Hyponatremia resolved 09/13: Hyponatremia resolved. Electrolytes in normal range. Generalized weakness and debility-acute on chronic with acuity secondary to acute illness -PT/OT consultation -Case management/social work consultation--> patient just had recent extended stay at [facility] Chronic hypoxic respiratory failure secondary to COPD -Patient remains on her baseline 2 L nasal cannula -Continue to monitor -Hold home Spiriva -As needed albuterol and scheduled DuoNebs ordered DM-1 -Continue basal insulin. Glucose 280 Accu-Chek before meals and at bedtime with Humalog sliding scale coverage and hypoglycemia protocol. 1800 ADA diet 09/12: Glucose 184 in BMP. 09/13 glucose 107 and BMP. Patient discharged on Humalog scheduled 5 mg with meal and 10 units at the dinnertime with instruction to hold if glucose less than 130 mg/dl Chronic severe anemia H&H 8.2/26%. Platelet count 396K. -Continue home iron supplementation 09/12: CBC ordered History of paroxysmal atrial fibrillation with RVR -Currently sinus tachycardia -Continue home rivaroxaban -Continue home metoprolol -Current heart rate is reactive so will not treat acutely - Hypothyroidism -Continue home levothyroxine Essential hypertension/hyperlipidemia -Hold home amlodipine/Benazepril for now but restart if blood pressure will tolerate tomorrow -Continue home metoprolol -Continue home statin Overactive bladder -Continue home tolterodine History of bilateral PE -Remote -Continue home Xarelto Dementia -Mild cognitive impairment more likely as patient was alert and oriented on admission with mild intermittent confusion History of tobacco abuse -Recommend ongoing cessation DVT prophylaxis -Continue Xarelto CODE STATUS -Per discussion with patient DNR CCA with no intubation Discharge medication reconciliation done. Discharge follow-up instructions completed. Discharge process discussed with the patient and all questions were answered to patient's satisfaction. Follow with PCP in 1 to 2 weeks. Discharged to TCU Total time spent, exact 35 minutes on discharge meds reconciliation, examination, coordination of care with nurses and ancillary staff, review of imaging and blood test and discussion with the patient on follow-up instructions. Medications at Discharge Home Medications cholecalciferol (vitamin D3) 50 mcg (2,000 unit) tablet (D3 DOTS) 4,000 unit PO .COMPLEX vitamin 06/29/23 magnesium 200 mg tablet 400 mg PO DAILY supplement 06/29/23 iron, carbonyl 45 mg tablet 45 mg PO DAILY ANEMIA #30 tabs 06/16/24 tiotropium bromide 2.5 mcg/actuation mist for inhalation (Spiriva Respimat) 2 inh inhalation DAILY 06/29/24 acetaminophen 325 mg tablet 650 mg (2 x 325 mg) PO Q4H PRN PRN Fever, pain 1- 08/02 #0 tabs 07/02/24 albuterol sulfate 2.5 mg/3 mL (0.083 %) solution for nebulization 2.5 mg (3 mL) inhalation Q2H PRN PRN Dyspnea, wheezing #0 mL 07/02/24 ferrous sulfate 325 mg (65 mg iron) tablet (FeroSul) 325 mg PO DAILYCM #0 tabs 07/02/24 levothyroxine 100 mcg tablet 100 mcg PO MoTuWeThFrSa@0600 #0 tabs 07/02/24 levothyroxine 150 mcg tablet 150 mcg PO Alston@0600 HYPOTHYROIDISM #0 tabs 07/02/24 melatonin 3 mg tablet 3 mg PO QHS PRN PRN Insomnia #0 tabs 07/02/24 menthol 0.44 %-zinc oxide 20.6 % topical ointment (Calmoseptine) 1 applic topical 4X/DAY REDNESS #0 grams 07/02/24 metoprolol succinate 25 mg tablet,extended release 24 hr 25 mg PO DAILY HEART RATE #0 tabs 07/02/24 nutrition tx glu intol,lac-free,soy-fiber 0.06 gram-1.2 kcal/mL liquid (Glucerna 1.2 Remy) 120 ml PO 4X/DAY #0 mL 07/02/24 rivaroxaban 20 mg tablet (Xarelto) 20 mg PO DAILY CLOTTING #0 tabs 07/02/24 tolterodine 2 mg capsule,extended release 24 hr 2 mg PO DAILY #0 caps 07/02/24 don (Ultra-Light Rollator mis) #1 ea 09/05/24 insulin aspart U-100 100 unit/mL subcutaneous solution (Novolog U-100 Insulin aspart) subcut UD HYPERGLYCEMIA 09/10/24 pantoprazole 40 mg tablet,delayed release 40 mg PO DAILY GERD 09/10/24 simvastatin 10 mg tablet 10 mg PO DAILY HIGH CHOLESTEROL 09/10/24 amlodipine 5 mg-benazepril 10 mg capsule 1 cap PO DAILY blood pressure 30 days #0 caps 09/13/24 ertapenem 1 gram solution for injection 1 g IV Q24 7 days #7 ea 09/13/24 insulin glargine-yfgn 100 unit/mL (3 mL) subcutaneous pen 10 unit (0.1 mL) subcut DINNER #0 mL 09/13/24 insulin lispro 100 unit/mL subcutaneous pen (Humalog KwikPen (U-100) Insulin) 5 unit (0.05 mL) subcut TIDCM 1 month #15 mL 09/13/24 insulin lispro 100 unit/mL subcutaneous pen (Humalog KwikPen (U-100) Insulin) See Protocol subcut ACHS #0 mL 09/13/24 sennosides 8.6 mg-docusate sodium 50 mg tablet (Stimulant Laxative Plus) 2 tab PO BID #0 tabs 09/13/24 Physical Exam Narrative Seen and examined. No acute urinary complaint but patient has chronic bowel and bladder incontinence. Discussed with the in the room. No burning micturition.No flank pain. She also states she has history of recurrent UTI gets about 3 UTIs per year. She also recovered from pneumonia about 3 months ago. Urine culture and blood culture positive with ESBL Klebsiella pneumoniae. Physical exam General: Alert, Oriented x3, Cooperative HEENT: Atraumatic, PERRLA, EOMI, Normocephalic Oral: No Gingival or Mucosal Lesions/ Ulcerations Neck: Supple, No JVD, Negative Carotid Bruits Chest wall/Lungs: Air entry diminished in bilateral lung bases. No crepitation/rhonchi Cardiovascular: Sinus tachycardia normal S1, Normal S2, No M/G/R Abdomen: Bowel Sounds Present, Soft, Non Tender, Non-Distended : No dysuria. No renal angle tenderness. No suprapubic tenderness. Extremities: No edema, Capillary Refill Less than 3 Seconds Skin: Small skin tear over left subclavicular region Musculoskeletal: No Tenderness to Palpation of Joints or Extremities Neurological: Cranial nerves II-XII grossly intact, DTR 2+/4. No acute focal neurological deficit. Psych/Mental Status: flat affect. Dementia. Weight / BMI Weight Weight: 179 lb 0.246 oz Body Mass Index (BMI) 29.7 ABG / Lab / Microbiology Data 09/13/24 06:08 09/13/24 06:08 Laboratory: Laboratory Results - last 24 hr 09/12/24 16:57: POC Glucose 361 H 09/12/24 21:54: POC Glucose 270 H 09/13/24 06:08: WBC 10.2, RBC 3.15 L, Hgb 7.6 L, Hct 26.2 L, MCV 83.2, MCH 24.1 L, MCHC 29.0 L D, RDW Std Deviation 55.2 H, RDW Coeff of Kristyn 20.3 H, Plt Count 390, MPV 10.1, Immature Gran % (Auto) 0.400, Neut % (Auto) 61.4, Lymph % (Auto) 24.1, [place] % (Auto) 10.1 H, Eos % (Auto) 3.4, Baso % (Auto) 0.6, Absolute Neuts (auto) 6.3, Absolute Lymphs (auto) 2.47, Nucleated RBC % 0, Polychromasia 1+, Anisocytosis 1+, Target Cells 1+, Ovalocytes 1+, Schistocytes 1+, Sodium 138, Potassium 4.1, Chloride 108 H, Carbon Dioxide 24.0, Anion Gap 5, BUN 18, Creatinine 0.96, Estim Creat Clear Calc 48.38, Est GFR (MDRD) Af Amer 72, Est GFR (MDRD) Non-Af 59 L, BUN/Creatinine Ratio 18.8, Glucose 107 H, Calcium 8.3 L 09/13/24 06:43: POC Glucose 108 H 09/13/24 12:43: POC Glucose 379 H Microbiology: Microbiology 09/10/24 16:40 Blood Culture (Wb) - Anticubital Right Blood Culture - Preliminary Klebsiella pneumoniae sp pneum 09/10/24 16:03 Urine, Clean Catch Urine Culture - Final ESBL Klebsiella pneumoniae pne 09/10/24 16:45 Mucosa - Nose SARS-CoV-2, Influenza & RSV (PCR) - Final D/C Instructions DC O2, CPAP, BIPAP Needs RN Home O2 Qualification: Home O2 Qualification: Is the patient on home oxygen Yes 09/13/24 08:49 Home O2 Qualification: AT REST 1-Pulse Ox at rest 91 09/13/24 08:49 1- Oxygen flow rate at rest 2 09/13/24 08:49 Home O2 Qualification: WITH AMBULATION 1- Pulse Ox with ambulation 87 09/13/24 08:49 1- Oxygen Flow Rate with 2 09/13/24 08:49 ambulation 2- Pulse Ox with ambulation 92 09/13/24 08:49 2- Oxygen Flow Rate with 3 09/13/24 08:49 ambulation Home Oxygen Instructions: Home O2 discharge Instructions Type of respiratory needs? Oxygen 09/13/24 15:16 DC Oxygen Instruction Oxygen frequency Continuous 09/13/24 15:16 Continuous oxygen liters per 3 L/m 09/13/24 15:16 minute Additional Home O2 Discharge instructions: No DC home with Oxygen: No Meaningful Use Info Meaningful Use Meaningful Use Diagnoses (Choose all that apply): None applicable Ischemic Stroke Statin Dosing Therapy Reference: STATIN DOSE THERAPY REFERENCE: * Patients > 75 years receive moderate or high dose statin therapy. * Patients 75 years or YOUNGER should receive HIGH intensity statin dose unless contraindicated. You will be required to document reason for non-treatment if statin daily dose does not meet guidelines. HIGH DOSE STATIN THERAPY DAILY Atorvastatin > than or = to 40 mg Rosuvastatin > than or = to 20 mg Amlodipine + Atorvastatin > than or = to 2.5/40 mg Ezetimibe + Simvastatin 10/80 mg Simvastatin 80mg Discharge Plan Admission Admit Date/Time: 09/10/24 18:50 Primary Reason for Your Visit: ESBL UTI and bacteremia Attending Provider: Ronaldo Hickey Primary Care Provider: Shena Jeffers Consulting Providers: Roxi Velázquez; Fracisco Jeffers Instructions Additional Instructions / Restrictions: Hold scheduled insulin; Humalog and glargine insulin if glucose is less than 130 mg/dL Discharge Orders/Prescriptions Prescriptions: New ertapenem 1 gram Recon Soln 1 g IV Q24 7 Days Qty: 7 0RF Rx Instructions: stop date 09/20/24. Dx: esbl bacteremia. Weekly bmp, cbc, and LFT. Fax to [phone]. Routine midline care per protocol. insulin lispro [Humalog KwikPen Insulin] 100 unit/mL Insulin Pen See Protocol subcut ACHS Qty: 0 0RF Protocol: 4. Sliding Scale Insulin High-Med Dosing Condition: 150-199 mg/dl = 2 units Condition: 200-259 mg/dl = 4 units Condition: 260-324 mg/dl = 6 units Condition: 325-374 mg/dl = 8 units Condition: 375-409 mg/dl = 10 units Condition: 410-449 mg/dl = 11 units Condition: Greater than 449 call physician Protocol Text: Suggested for: - Patients on Total Daily Insulin Dose of 56-80 units - Patient who are known to be insulin resistant or septic HIGH MEDIUM DOSING ALGORITHM insulin glargine-yfgn 100 unit/mL (3 mL) Insulin Pen 10 unit subcut DINNER Qty: 0 0RF insulin lispro [Humalog KwikPen Insulin] 100 unit/mL insulin pen 5 unit subcut TIDCM 30 Days Qty: 15 0RF Rx Instructions: Hold if glucose less than 130 mg/dl Continued (DME) Ultra-Light Rollator Misc See Rx Instructions .Route Qty: 1 0RF Rx Instructions: WITH SEAT magnesium 200 mg tablet 400 mg PO DAILY cholecalciferol (vitamin D3) [D3 DOTS] 50 mcg (2,000 unit) tablet 4,000 unit PO .COMPLEX Rx Instructions: 4,000 units orally every other day; iron, carbonyl 45 mg tablet 45 mg PO DAILY Qty: 30 0RF Patient Comments: TAKES A 65MG TABLET BECAUSE THEY CAN NOT FIND A 45MG AT STORE Spiriva Respimat 2.5 mcg/actuation mist 2 inh INHALATION DAILY acetaminophen 325 mg Tablet 650 mg PO Q4H PRN PRN (Reason: Fever, pain 1-08/02) Qty: 0 0RF albuterol sulfate 2.5 mg /3 mL (0.083 %) Solution For Nebulization 2.5 mg inhalation Q2H PRN PRN (Reason: Dyspnea, wheezing) Qty: 0 0RF Glucerna 1.2 Remy 0.06-1.2 gram-kcal/mL Liquid 120 ml PO 4X/DAY Qty: 0 0RF ferrous sulfate [FeroSul] 325 mg (65 mg iron) Tablet 325 mg PO DAILYCM Qty: 0 0RF levothyroxine 100 mcg Tablet 100 mcg PO MoTuWeThFrSa@0600 Qty: 0 0RF levothyroxine 150 mcg Tablet 150 mcg PO Alston@0600 Qty: 0 0RF melatonin 3 mg Tablet 3 mg PO QHS PRN PRN (Reason: Insomnia) Qty: 0 0RF menthol-zinc oxide [Calmoseptine] 0.44-20.6 % Ointment 1 applic topical 4X/DAY Qty: 0 0RF Protocol: *Topical Application Instructions APPLICATION INSTRUCTIONS: apply to affected region tolterodine 2 mg Capsule,Extended Release 24hr 2 mg PO DAILY Qty: 0 0RF metoprolol succinate 25 mg Tablet Extended Release 24 Hr 25 mg PO DAILY Qty: 0 0RF Patient Comments: HAS NOT STARTED YET 09/10 insulin aspart U-100 [Novolog U-100 Insulin aspart] 100 unit/mL solution subcut UD simvastatin 10 mg tablet 10 mg PO DAILY pantoprazole 40 mg tablet,delayed release (DR/EC) 40 mg PO DAILY amlodipine-benazepril 5-10 mg capsule 1 cap PO DAILY 30 Days Qty: 0 0RF Rx Instructions: Hold for SBP less than 130 mmHg Changed sennosides-docusate sodium [Stimulant Laxative Plus] 8.6-50 mg Tablet 2 tab PO BID Qty: 0 0RF Held Xarelto 20 mg Tablet 20 mg PO DAILY Qty: 0 0RF Hold Instructions: Hold for 1 week till hemoglobin more than 8 g%. Discontinued insulin glargine-yfgn [Semglee(insulin glargine-yfgn)] 100 unit/mL solution 7 unit subcut QHS Referrals / Follow Up: Shena Jeffers DO [Primary Care Provider] - Within 2 Weeks Fracisco Jeffers MD [Med Staff - Active Staff] - Within 1 Week Disposition Disposition (needs filled in before D/C Order can be placed): Home, Self Care Charges/Coding Visit Charges Inpatient E&M: 77541 Disch Hosp >30min
--- NOTE | 2024-09-13 15:31 | CASEMGMT ---
CHRISTAL called patient's significant other Don and let him know patient will be going over to [facility] today. Don thanked CHRISTAL for the call. Plan: d/c to [facility] under skilled level of care. Janet HENSLEY
[2024-09-13] MEDS: Insulin Glargine-YFGN 100 UNIT/ML Pen 10 UNIT SC (17:07)
--- NOTE | 2024-09-13 17:35 | NURSING ---
report called to [facility] on TCU
[2024-09-13 18:25] LABS: Bedside Glucose 262 mg/dL (74-106)
== END 2024-09-13 18:28 | DRG 872 ==
LOC: ED 16:19 → ICU 19:08 → PCU 09-11 17:22
PROVIDERS: Physician Assistant; Admitting Provider Internal Medicine; Emergency Provider Emergency Medicine; PCP Internal Medicine; Visit Provider Internal Medicine
DX: A41.59 Other Gram-negative sepsis (principal); J96.11 Chronic respiratory failure with hypoxia; E87.1 Hypo-osmolality and hyponatremia; N17.9 Acute kidney failure, unspecified; N39.0 Urinary tract infection, site not specified; E10.9 Type 1 diabetes mellitus without complications; D64.9 Anemia, unspecified; Z66 Do not resuscitate; I48.0 Paroxysmal atrial fibrillation; G31.84 Mild cognitive impairment of uncertain or unknown etiology; J44.9 Chronic obstructive pulmonary disease, unspecified; E03.9 Hypothyroidism, unspecified; I10 Essential (primary) hypertension; E78.5 Hyperlipidemia, unspecified; Z79.4 Long term (current) use of insulin; Z99.81 Dependence on supplemental oxygen; R53.81 Other malaise; N32.81 Overactive bladder; M81.0 Age-related osteoporosis without current pathological fracture; Z88.1 Allergy status to other antibiotic agents; Z88.2 Allergy status to sulfonamides; Z88.0 Allergy status to penicillin; Z86.19 Personal history of other infectious and parasitic diseases; Z79.01 Long term (current) use of anticoagulants; Z90.49 Acquired absence of other specified parts of digestive tract; Z79.51 Long term (current) use of inhaled steroids; Z87.440 Personal history of urinary (tract) infections; Z87.891 Personal history of nicotine dependence; Z86.718 Personal history of other venous thrombosis and embolism; Z86.711 Personal history of pulmonary embolism; Z79.890 Hormone replacement therapy; Z79.899 Other long term (current) drug therapy
CPT/HCPCS: 36415; 74177; 80048; 80053; 81001; 82962; 83605; 83690; 83735; 84100; 84484; 85025; 87040; 87077; 87086; 87088; 87186; 87631; 94668; 94762; 97116; 97162; 97166; 97530; 97535; 97802; 99252; 99285; J2185; J7030; J7040; J7050; J7120; P9612; Q9967; A4216; G0463; J2916

== ENCOUNTER 2024-09-13 18:40 | Inpatient (IN) | payer MEDICARE, OTHER, SELFPAY ==
[2024-09-13 18:47] VITALS: BP 136/60; PULSE 95; RESP 18; RESP 20; TEMP 36.4; O2SAT 100; BMI 29.7
[2024-09-13 18:58] VITALS: BMI 29.8
[2024-09-13 21:34] LABS: Bedside Glucose 215 mg/dL (74-106)
--- NOTE | 2024-09-13 22:03 | HP.PCM_ITS ---
HPI - General General Date of Admission: 09/13/24 Date of Service: 09/14/24 Chief Complaint: Here for rehabilitation, intravenous antibiotics. HPI Narrative LIVIER SMALLS, is a 79 Female who presents with followin09/10/2024 [facility] ED urinary tract infection, generalized weakness. Malodorous urine, more weak, unable to get off toilet. WBC 13, Hemoglobin 9.2, Creatinine 1.35, Lactate normal. UA c/w UTI, urine culture sent, Ceftriaxone IV given. CT A/P marked hepatomegaly, cholelithiasis, covid negative, flu negative. 09/10/2024 Admit [facility]. IV fluids, Ceftriaxone IV for sepsis 2/2 UTI, urine culture pending. IV fluids for THANIA. PT/OT for debility. 09/11/2024 THANIA resolved. Hyponatremia resolved. Ceftriaxone IV for UTI, urine culture pending. 09/12/2024 Recurrent UTI, 3 UTI's per year. Urine culture and blood culture growing ESBL Klebsiella Pneumoniae. Ceftriaxone changed for Meropenem, consult ID. PT/OT for discharge planning. 09/12/2024 ID recommended continuing Meropenem for ESBL Klebsiella Pneumoniae UTI. 09/13/2024 ID recommended midline, Ertrapenem IV for 1 more week. 09/13/2024 Admit to TCU with debility, here for rehabilitation, strengthening, intravenous antibiotics prior to discharge home with significant other. 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 Memory loss HLD (hyperlipidemia) HTN (hypertension) Pulmonary embolism, bilateral Smoker COPD (chronic obstructive pulmonary disease) Home Medications ?Medication ?Instructions ?Recorded ?Last Taken ?Type cholecalciferol (vitamin D3) 50 4,000 unit PO .COMPLEX vitamin 06/29/23 01/11/24 History mcg (2,000 unit) tablet (D3 DOTS) magnesium 200 mg tablet 400 mg PO DAILY supplement 06/29/23 Unknown History iron, carbonyl 45 mg tablet 45 mg PO DAILY ANEMIA #30 tabs 06/16/24 Unknown Rx tiotropium bromide 2.5 2 inh inhalation DAILY COPD 06/29/24 Unknown History mcg/actuation mist for inhalation (Spiriva Respimat) acetaminophen 325 mg tablet 650 mg (2 x 325 mg) PO Q4H PRN PRN 07/02/24 Unknown Rx Fever, pain 1-08/02 #0 tabs albuterol sulfate 2.5 mg/3 mL 2.5 mg (3 mL) inhalation Q2H PRN 07/02/24 Unknown Rx (0.083 %) solution for nebulization PRN Dyspnea, wheezing #0 mL ferrous sulfate 325 mg (65 mg 325 mg PO DAILYCM supplement #0 07/02/24 Unknown Rx iron) tablet (FeroSul) tabs levothyroxine 100 mcg tablet 100 mcg PO MoTuWeThFrSa@0600 07/02/24 Unknown Rx thyroid #0 tabs levothyroxine 150 mcg tablet 150 mcg PO Alston@0600 HYPOTHYROIDISM 07/02/24 Unknown Rx #0 tabs melatonin 3 mg tablet 3 mg PO QHS PRN PRN Insomnia #0 07/02/24 Unknown Rx tabs menthol 0.44 %-zinc oxide 20.6 % 1 applic topical 4X/DAY REDNESS #0 07/02/24 Unknown Rx topical ointment (Calmoseptine) grams metoprolol succinate 25 mg 25 mg PO DAILY HEART RATE #0 tabs 07/02/24 Unknown Rx tablet,extended release 24 hr nutrition tx glu 120 ml PO 4X/DAY supplement #0 mL 07/02/24 Unknown Rx intol,lac-free,soy-fiber 0.06 gram-1.2 kcal/mL liquid (Glucerna 1.2 Remy) rivaroxaban 20 mg tablet (Xarelto) 20 mg PO DAILY CLOTTING #0 tabs 07/02/24 Unknown Rx tolterodine 2 mg capsule,extended 2 mg PO DAILY bladder #0 caps 07/02/24 Unknown Rx release 24 hr walker (Ultra-Light Rollator [place]) #1 ea 09/05/24 Unknown Rx insulin aspart U-100 100 unit/mL subcut UD HYPERGLYCEMIA 09/10/24 Unknown History subcutaneous solution (Novolog U-100 Insulin aspart) pantoprazole 40 mg tablet,delayed 40 mg PO DAILY GERD 09/10/24 Unknown History release simvastatin 10 mg tablet 10 mg PO DAILY HIGH CHOLESTEROL 09/10/24 Unknown History amlodipine 5 mg-benazepril 10 mg 1 cap PO DAILY blood pressure 30 09/13/24 09/07/22 Rx capsule days #0 caps ertapenem 1 gram solution for 1 g IV Q24 UTI 7 days #7 ea 09/13/24 Unknown Rx injection insulin glargine-yfgn 100 unit/mL 10 unit subcut DINNER elevated 09/13/24 Unknown History (3 mL) subcutaneous pen glucose insulin lispro 100 unit/mL 5 unit (0.05 mL) subcut TIDCM 09/13/24 Unknown Rx subcutaneous pen (Humalog KwikPen diabetes 1 month #15 mL (U-100) Insulin) insulin lispro 100 unit/mL See Protocol subcut ACHS diabetes 09/13/24 Unknown Rx subcutaneous pen (Humalog KwikPen #0 mL (U-100) Insulin) sennosides 8.6 mg-docusate sodium 2 tab PO BID constipation #0 tabs 09/13/24 Unknown Rx 50 mg tablet (Stimulant Laxative Plus) Allergy/AdvReac Type Severity Reaction Status Date / Time ciprofloxacin (From Cipro) Allergy Intermediate hives Verified 09/05/24 14:19 Sulfa (Sulfonamide Allergy Intermediate hives Verified 09/05/24 14:19 Antibiotics) Penicillins Allergy Rash Verified 09/05/24 14:19 Family History Father Diabetes Respiratory disease Mother No problems noted. 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 alcohol intake: current alcohol intake frequency: a few times a month substance use type: does not use ROS Constitutional Constitutional: Reports weakness; Denies chills, fever(s) or weight gain ENT HEENT: Denies headache(s), nasal congestion or nasal discharge Cardiovascular Cardiovascular: Denies chest pain or palpitations Respiratory/Chest Respiratory/Chest: Denies cough, excessive phlegm production or shortness of breath with exertion Gastrointestinal Gastrointestinal: Denies abdominal pain, nausea or vomiting Genitourinary Genitourinary: Denies dysuria Musculoskeletal Musculoskeletal: Denies joint pain or joint swelling Integumentary Integumentary: Denies rash or wounds Neurologic Neurologic: Denies focal weakness, numbness or tingling Psychiatric Psychiatric: Denies anxiety, auditory hallucinations, depression, homicidal ideation or suicidal ideation Vital Signs Vital Signs Vital Signs: 09/13/24 18:47 Temperature 97.5 F L Temperature Source Temporal Pulse Rate 95 Respiratory Rate 20 H Blood Pressure 136/60 H Blood Pressure Mean 85 Blood Pressure Source Monitor Blood Pressure Position Semi-Fowlers Blood Pressure Location Left Arm Pulse Ox 100 Oxygen Delivery Method Nasal Cannula Oxygen Flow Rate (L/min) 2 Weight Weight: 81.238 kg Body Mass Index (BMI) 29.8 Physical Exam Const alert General Appearance: cooperative HEENT normocephalic Eyes PERRL and EOMs intact bilaterally Neck supple, no JVD and no carotid bruits Resp normal respiratory effort, normal air movement and clear to auscultation bilaterally Cardio regular rate and regular rhythm GI normal to inspection, nondistended, normoactive bowel sounds, non-tender and non-distended Extremity normal capillary refill Extremity Narrative: Right upper extremity Midline. General Extremity: Negative for edema Skin no rashes or lesions noted General Skin Exam: no breakdown Psych affect normal Appearance: appropriate Results Lab / Micro Data 09/14/24 05:26 09/14/24 05:26 Labs: Laboratory Results - last 24 hr 09/13/24 21:16: POC Glucose 215 H Assessment & Plan Assessment/Plan (1) Debility: (2) Sepsis: (3) UTI (urinary tract infection): (4) Bacteremia due to Gram-negative bacteria: (5) Weakness: (6) THANIA (acute kidney injury): (7) Hyponatremia: (8) Diabetes mellitus type 1: QUALIFIERS: Diabetes mellitus complication status: with hyperglycemia Qualified Code(s): E10.65 - Type 1 diabetes mellitus with hyperglycemia (9) Hypertension: QUALIFIERS: Hypertension type: unspecified Qualified Code(s): I10 - Essential (primary) hypertension (10) Hypothyroidism: QUALIFIERS: Hypothyroidism type: unspecified Qualified Code(s): E 03.9 - Hypothyroidism, unspecified (11) COPD (chronic obstructive pulmonary disease): (12) Alzheimer disease: (13) Atrial fibrillation: (14) Vitamin D deficiency: (15) Iron deficiency anemia: (16) Overactive bladder: (17) GERD (gastroesophageal reflux disease): (18) HLD (hyperlipidemia): PLAN: Plan 79 year old female with below past medical history significant for recurrent UTI, hospitalized for sepsis 2/2 UTI, complicated by esbl K. pneumoniae bacteremia, acute kidney injury, hyponatremia, admitted to TCU with debility, here for rehabilitation, strengthening, intravenous antibiotics, prior to discharge home with significant other. * Debility - PT/OT. * Pain - Tylenol 1000mg q6 prn pain (1-10). * Bowel - senna/colace 2 tablets bid, Magnesium citrate 300mL po daily prn. * Adult immunization - Administer pneumonia vaccine, covid vaccine, flu vaccine as appropriate. * DVT prophylaxis - on Xarelto. * COPD - Incruse 1 puff daily, Albuterol 2.5mg neb q2h prn. * Hypertension - Metoprolol succinate 25mg daily, Lisinopril 10mg daily, Amlodipine 5mg daily. * Hyperlipidemia - Atorvastatin 5mg daily. * Vitamin D deficiency - D3 100mcg daily. * ESBL K. Pneumoniae UTI/bacteremia/sepsis - Ertapenem 1gm iv q24 thru 09/20/2024. * Iron deficiency anemia - Ferrous sulfate 325mg daily. * Nutrition - Glucerna Shake 120mL 4x/day. * Diabetes - Glargine 10 units sc daily, Lispro 5 units tidcm. * Hypothyroidism - Levothyroxine 100mcg 6 days per week, 150mcg 1 day per week. * Hypomagnesemia - Magnesium chloride 128mg daily. * Insomnia - Melatonin 3mg qhs prn. * Skin irritation - Calmoseptine topical 4x/day. * GERD - Pantoprazole 40mg daily. * Atrial fibrillation - Metoprolol succinate 25mg daily, Xarelto 15mg daily. * Overactive bladder - Tolterodine 2mg daily. * Alzheimer Disease - Defer to PCP.
[2024-09-13] MEDS: Menthol/Lanolin/Calamine/Znox 113 GM Tube 1 APPLIC TOPICAL (22:07)
[2024-09-13] MEDS: Senna/Docusate Sodium 1 Tablet 2 TABLET PO (22:08)
[2024-09-13] MEDS: Insulin Lispro 100 UNIT/ML INSULN.PEN SC (22:18)
[2024-09-14 04:23] VITALS: O2SAT 91
[2024-09-14] MEDS: Menthol/Lanolin/Calamine/Znox 113 GM Tube 1 APPLIC TOPICAL ×3 (05:38→22:24)
[2024-09-14] MEDS: Levothyroxine 100 MCG Tablet PO (05:40)
[2024-09-14 06:37] LABS: Bedside Glucose 124 mg/dL (74-106)
[2024-09-14 06:48] LABS: Absolute Lymphocyte Count 2.41 X10^3/uL (0.83-4.51); Absolute Neutrophil Count 4.7 X10^3/uL (2.0-7.7); Basophil# 0.07 X10^3/uL; Basophil% 0.8 % (0-1); Eosinophils% 4.8 % (0-5); Hematocrit 27.3 % (37-47); Hemoglobin 8.1 g/dL (12.0-15.0); Lymphocyte # 2.41 X10^3/ul (0.83-4.51); Lymphocyte % 29.1 % (19-41); Mean Corp Hgb Conc 29.7 g/dL (32-36); Mean Corpuscular Hgb 24.8 pg (27.0-32.0); Mean Corpuscular Volume 83.7 fL (81-99); Mean Platelet Vol. 10.5 fl (6.2-12.0); Monocyte# 0.69 X10^3/uL; Monocyte% 8.3 % (0-10); NRBC Flagged by Analyzer 0 % (0-5); Neutrophil # 4.66 X10^3/uL (2.7-7.7); Neutrophil % 56.3 % (47-70); Platelet Count 440 K/mm3 (150-450); RBC Distribution Width CV 19.7 % (11.6-14.6); RBC Distribution Width SD 55.7 fl (35.1-43.9); Red Blood Count 3.26 M/mm3 (4.2-5.4); White Blood Count 8.3 K/mm3 (4.4-11.0)
[2024-09-14 06:59] LABS: AST(SGOT) 7 U/L (15-37); Alanine Aminotransfer ALT/SGPT 12 U/L (13-56); Alkaline Phosphatase 85 U/L (45-117); Anion Gap 5 (5-15); BUN 16 mg/dL (7-18); BUN/Creat Ratio 17.9 RATIO (10-20); Bilirubin, Direct 0.09 mg/dL (0.00-0.30); Calcium,Total 8.8 mg/dL (8.5-10.1); Chloride 106 mmol/L (98-107); Creatinine, Serum 0.89 mg/dL (0.55-1.02); EST Glomerular Filtration Rate 64 mL/min (>60); Est Glom Filt Rate - Afr Amer 78 mL/min (>60); Globulin 4.2 g/dL (2.2-4.2); Glucose 125 mg/dL (74-106); Potassium 3.8 mmol/L (3.5-5.1); Protein, Total 6.2 g/dL (6.4-8.2); Sodium Level 137 mmol/L (136-145)
[2024-09-14] MEDS: Insulin Lispro 100 UNIT/ML INSULN.PEN SC ×2 (08:07→12:10)
[2024-09-14] MEDS: Ferrous Sulfate 325 MG Tablet PO (08:08)
[2024-09-14] MEDS: Atorvastatin Calcium 10 MG Tablet 5 MG PO (08:08)
[2024-09-14] MEDS: Magnesium Chloride 64 MG Delay Rel.Tablet 128 MG PO (08:08)
[2024-09-14 08:09] VITALS: BP 165/84; PULSE 105
[2024-09-14] MEDS: Metoprolol(XL)Succ 25 MG Tablet PO (08:09)
[2024-09-14] MEDS: Pantoprazole Sodium 40 MG Tablet PO (08:09)
[2024-09-14] MEDS: Cholecalciferol (VIT D3) 25 MCG TABLET (1,000 UNITS) 100 MCG PO (08:09)
[2024-09-14] MEDS: amLODIPine 5 MG Tablet PO (08:09)
[2024-09-14] MEDS: Senna/Docusate Sodium 1 Tablet 2 TABLET PO (08:10)
[2024-09-14] MEDS: Tolterodine Tartrate 2 MG CAP.SA PO (08:10)
[2024-09-14] MEDS: Lisinopril 10 MG Tablet PO (08:15)
[2024-09-14] MEDS: Ertapenem Sod 1 GM in 0.9% Normal Saline (50mL MB+) 50 ML IV (10:00)
[2024-09-14] MEDS: Umeclidinium Bromide Inhaler 1 PUFF INHALATION (10:01)
[2024-09-14] MEDS: Tuberculin,Purif.prot.deriv. 50 TU/ML Vial 0.1 ML ID (10:01)
[2024-09-14] MEDS: 0.9 % NaCl (Sterile) Posiflush 10 mL IV (10:03)
--- NOTE | 2024-09-14 11:24 | PCM.PN.DRR ---
Documented by User: Lacho Curry 09/14/24 11:32 TCU RX Drug Regimen Review Subjective/Objective Subjective/Objective Subjective: TCU admission note. 79 year old female with past medical significant for recurrent UTI, was hospitalized on 09/10/24 for sepsis 2/2 UTI, complicated by ESBL K. pneumoniae bacteremia, acute kidney injury, and hyponatremia. She was then admitted to TCU with debility and is here for rehabilitation, strengthening, and intravenous antibiotics prior to discharge home with significant other. Objective: Allergies ciprofloxacin (From Cipro) Allergy (Intermediate, Verified 09/05/24 14:19) hives Sulfa (Sulfonamide Antibiotics) Allergy (Intermediate, Verified 09/05/24 14:19) hives Penicillins Allergy (Verified 09/05/24 14:19) Rash Current Medications Generic Name Dose Route Start Last Admin Trade Name Freq PRN Reason Stop Dose Admin Acetaminophen 1,000 mg 09/13/24 22:19 Acetaminophen 500 Mg Tablet PO Q6H PRN PRN Pain Score 1-10 Albuterol Sulfate 2.5 mg 09/13/24 19:06 Albuterol 2.5 Mg/3 Ml Vial.Neb. INHALATION Q2H PRN PRN Dyspnea, wheezing Amlodipine Besylate 5 mg 09/14/24 10:00 09/14/24 08:09 Amlodipine 5 Mg Tablet PO 5 mg DAILY SOPHIA Administration Atorvastatin Calcium 5 mg 09/14/24 10:00 09/14/24 08:08 Atorvastatin Calcium 10 Mg Tablet PO 5 mg DAILY SOPHIA Administration Calamine/Phenol 1 applic 09/13/24 22:00 09/14/24 05:38 Menthol/Lanolin/Calamine/Znox 113 Gm Tube TOPICAL 1 applic 4X/DAY SOPHIA Administration Protocol Cholecalciferol 100 mcg 09/14/24 10:00 09/14/24 08:09 Cholecalciferol (Vit D3) 25 Mcg Tablet (1,000 Units) PO 100 mcg Q48 SOPHIA Administration Ferrous Sulfate 325 mg 09/14/24 08:00 09/14/24 08:08 Ferrous Sulfate 325 Mg Tablet PO 325 mg DAILYCM SOPHIA Administration Ertapenem 1 gm/ Sodium 60 mls @ 100 mls/hr 09/14/24 10:00 09/14/24 10:58 Chloride IV 09/20/24 10:01 Infused Q24 SOPHIA Infusion Sodium Chloride 500 mls @ 15 mls/hr 09/13/24 21:53 IV .[id number] PRN Saline Flush Sodium Chloride 500 mls @ 15 mls/hr 09/13/24 21:53 IV .[id number] PRN Additional IVPB Infusion Insulin Glargine 10 unit 09/14/24 17:00 Insulin Glargine-Yfgn 100 Unit/Ml Pen SC DINNER [facility] Insulin Human Lispro 5 unit 09/14/24 07:45 09/14/24 08:07 Insulin Lispro 100 Unit/Ml Insuln.Pen SC 5 units TIDCM SOPHIA Administration Levothyroxine Sodium 100 mcg 09/14/24 06:00 09/14/24 05:40 Levothyroxine 100 Mcg Tablet PO 100 mcg MoTuWeThFrSa@0600 SOPHIA Administration Levothyroxine Sodium 150 mcg 09/16/24 06:00 Levothyroxine 150 Mcg Tablet PO Alston@0600 [facility] Lisinopril 10 mg 09/14/24 10:00 09/14/24 08:15 Lisinopril 10 Mg Tablet PO 10 mg DAILY SOPHIA Administration Magnesium Chloride 128 mg 09/14/24 10:00 09/14/24 08:08 Magnesium Chloride 64 Mg Delay Rel.Tablet PO 128 mg DAILY SOPHIA Administration Magnesium Citrate 300 ml 09/13/24 22:19 Magnesium Citrate 300 Ml PO DAILY PRN Constipation Melatonin 3 mg 09/13/24 19:12 Melatonin 3 Mg Tablet PO QHS PRN PRN Insomnia Metoprolol Succinate 25 mg 09/14/24 10:00 09/14/24 08:09 Metoprolol(Xl)Succ 25 Mg Tablet PO 25 mg DAILY SOPHIA Administration Protocol Nutritional Formula (Lactose Free) 120 ml 09/13/24 22:00 09/14/24 05:39 Glucerna Shake 120 Ml Liquid PO Not Given 4X/DAY SOPHIA Pantoprazole Sodium 40 mg 09/14/24 10:00 09/14/24 08:09 Pantoprazole Sodium 40 Mg Tablet PO 40 mg DAILY SOPHIA Administration Rivaroxaban 15 mg 09/14/24 10:00 Rivaroxaban 15 Mg Tablet PO DAILY SOPHIA Senna/Docusate Sodium 2 tablet 09/13/24 22:00 09/14/24 08:10 Senna/Docusate Sodium 1 Tablet PO 2 tablet BID SOPHIA Administration Sodium Chloride 10 - 40 ml 09/13/24 18:57 09/14/24 10:03 0.9 % Nacl (Sterile) Posiflush 10 Ml IV 20 ml UD PRN Administration Port access or dressing change Sodium Chloride 10 - 40 ml 09/13/24 18:57 0.9% Saline Lock 10 Ml Syringe IV UD PRN Midline Flush Sodium Chloride 10 - 40 ml 09/13/24 21:53 0.9 % Nacl (Sterile) Posiflush 10 Ml IV UD PRN Port access or dressing change Sodium Chloride 10 - 40 ml 09/13/24 21:53 0.9% Saline Lock 10 Ml Syringe IV UD PRN Midline Flush Tolterodine Tartrate 2 mg 09/14/24 10:00 09/14/24 08:10 Tolterodine Tartrate 2 Mg Cap.Sa PO 2 mg DAILY SOPHIA Administration Tuberculin PPD 0.1 ml 09/21/24 10:00 Tuberculin,Purif.Prot.Deriv. 50 Tu/Ml Vial ID 09/21/24 10:01 X1 ONE Umeclidinium [place] 1 puff 09/14/24 10:00 09/14/24 10:01 Umeclidinium [place] Inhaler INHALATION 1 inh DAILY SOPHIA Administration Problem List HLD (hyperlipidemia) (Acute) GERD (gastroesophageal reflux disease) (Acute) Overactive bladder (Acute) Iron deficiency anemia (Acute) Vitamin D deficiency (Acute) Atrial fibrillation (Acute) Alzheimer disease (Acute) Hyponatremia (Acute) Bacteremia due to Gram-negative bacteria (Acute) UTI (urinary tract infection) (Acute) Weakness (Acute) THANIA (acute kidney injury) (Acute) Sepsis (Acute) Debility (Acute) Hypertension (Chronic) Hypothyroidism (Chronic) Diabetes mellitus type 1 (Chronic) COPD (chronic obstructive pulmonary disease) (Chronic) Vital Signs Temp Pulse Resp BP Pulse Ox O2 Del Method O2 Flow Rate 97.5 F L 105 H 18 165/84 H 91 Nasal Cannula 3 09/13/24 18:47 09/14/24 08:09 09/13/24 18:47 09/14/24 08:09 09/14/24 04:23 09/14/24 06:05 09/14/24 10:28 Oxygen Flow Rate (L/min) 3 Oxygen Delivery Method Nasal Cannula Weight: 81.238 kg Body Mass Index (BMI) 29.8 Sodium 137 mmol/L (136-145) 09/14/24 05:26 Potassium 3.8 mmol/L (3.5-5.1) 09/14/24 05:26 Chloride 106 mmol/L (98-107) 09/14/24 05:26 Carbon Dioxide 25.0 mmol/L (21.0-32.0) 09/14/24 05:26 Anion Gap 5 (5-15) 09/14/24 05:26 BUN 16 mg/dL (7-18) 09/14/24 05:26 Creatinine 0.89 mg/dL (0.55-1.02) 09/14/24 05:26 Est GFR (MDRD) Af Amer 78 mL/min (>60) 09/14/24 05:26 Est GFR (MDRD) Non-Af 64 mL/min (>60) 09/14/24 05:26 BUN/Creatinine Ratio 17.9 RATIO (10-20) 09/14/24 05:26 Glucose 125 mg/dL (74-106) H 09/14/24 05:26 Assessment/Plan: 1. Pain: Acetaminophen 1000mg PO Q6H PRN for pain (1-10). Resident has not needed any PRN doses. Please continue to monitor for pain and PRN usage. 2. Bowel: Senna/docusate 8.6mg/50mg 2 tablets PO BID, magnesium citrate 300mL PO daily PRN. Resident has not needed any PRN doses. Please continue to monitor for constipation and PRN usage. Last documented bowel movement was 09/11.? 3. DVT Prophylaxis/Atrial Fibrillation/Hypertension: Xarelto 15mg PO daily, metoprolol succinate 25mg PO daily, amlodipine 5mg PO daily, lisinopril 10mg PO daily. Please continue to monitor for S/S of bleeding/stroke, hemoglobin (last 8.1 g/dL), potassium (last 3.8 mmol/L), irregular heartbeat, heart rate (last 105 bpm), blood pressure (last 165/84 mmHg), bilateral edema, and renal function. The patient's blood pressures have been consistently elevated over the past several days. Please consider increasing amlodipine to 10 mg PO daily and monitor for s/s of orthostasis. 4. ESBL Klebsiella Pneumoniae UTI/Bacteremia/Sepsis: Ertapenem 1gm IV Q24H until 09/20/24. Most recent urine culture and blood culture (09/10/24) viewed and showed ESBL K. Pneumoniae susceptible to ertapenem. Please continue to monitor for S/S of recurrent infection and renal function. 5. Diabetes: Insulin glargine 10 units SC at dinner, insulin lispro 5 units SC TID with meals. Please continue to monitor A1C (last 7.2%), blood glucose (last 125 mg/dL), and S/S of hyper/hypoglycemia.? 6. COPD: Umeclidinium bromide inhale 1 puff PO daily, albuterol sulfate 2.5mg? inhale via nebulization Q2H PRN. Resident has not needed any PRN doses. Please continue to monitor for S/S of COPD exacerbation and PRN usage. 7. Nutrition/Iron Deficiency Anemia/Vitamin D Deficiency/Hypomagnesemia: Glucerna shake 120mL PO 4x daily, ferrous sulfate 325mg PO daily, cholecalciferol 100mcg PO Q48H, magnesium chloride 128mg PO daily. Please consider getting a new vitamin D level drawn as the most recent level was from 2022. Please continue to monitor RBC (last 3.26 M/mm3), iron levels (last 13 ug/dL [Low]), magnesium (last 2.2 mg/dL), S/S of malnutrition, and S/S of anemia. 8. Hypothyroidism: Levothyroxine 100mcg PO daily @0600 on Tuesday, Tuesday, Tuesday, , Tuesday, and Tuesday; levothyroxine 150mcg PO daily @0600 on Sundays. Please continue to monitor TSH (last 15.1 uIU/mL), Free T4 (last 1.15 ng/dL), and S/S of hyper/hypothyroidism. 9. Insomnia: Melatonin 3mg PO QHS PRN. Resident has not needed any PRN doses. Please continue to monitor for insomnia, confusion, falls/fractures, and PRN usage. 10. GERD: Pantoprazole 40mg PO daily. Please continue to monitor for S/S of GERD, S/S of C. Diff infection (BEERs), and bone loss/fractures (BEERs). 11. Overactive Bladder: Tolterodine 2 mg PO daily. Please continue to monitor for S/S of urinary incontinence and S/S of delirium (BEERs). 12. Hyperlipidemia: Atorvastatin 5mg PO daily. Please continue to monitor lipids (last 07/04/24), AST (last 7 U/L), ALT (last 12 U/L), and muscle pain.? 13. Skin Irritation: Calamine/Phenol ointment applied topically 4x daily to bilateral buttocks. Please continue to monitor for skin irritation.? Assessment/Plan for indications treated with psychotropic medications: NA Medical chart and medication regimen reviewed. The following medication irregularities or issues were identified: 1. DVT Prophylaxis/Atrial Fibrillation/Hypertension: Xarelto 15mg PO daily, metoprolol succinate 25mg PO daily, amlodipine 5mg PO daily, lisinopril 10mg PO daily. The patient's blood pressures have been consistently elevated over the past several days. Please consider increasing amlodipine to 10 mg PO daily and monitor for s/s of orthostasis. 2. Nutrition/Iron Deficiency Anemia/Vitamin D Deficiency/Hypomagnesemia: Glucerna shake 120mL PO 4x daily, ferrous sulfate 325mg PO daily, cholecalciferol 100mcg PO Q48H, magnesium chloride 128mg PO daily. Please consider getting a new vitamin D level drawn as the most recent level was from 2022. Date Date of Note: 09/14/24 Documented by User: Dr. Camilo Barrett MD 09/14/24 14:47 TCU RX Drug Regimen Review Provider Comments Provider responsibility Provider Comments to Recommendations by Pharmacy Agree
[2024-09-14 11:26] LABS: Bedside Glucose 146 mg/dL (74-106)
--- NOTE | 2024-09-14 12:56 | PCM.PN.ID ---
Physical Exam Narrative Feeling well, no fever, no abd pain, did have loose stool this AM Const alert and no apparent distress General Appearance: cooperative Resp normal air movement and clear to auscultation bilaterally Cardio regular rate and regular rhythm GI soft to palpation, non-tender and non-distended Skin no rashes or lesions noted ID ID: Route of nutrition/ use of supplements: [] Nutritional Intake: [] IV Site: [] King Catheter: [] Assessment & Plan Assessment/Plan (1) Bacteremia due to Gram-negative bacteria: PLAN: Ucx and Bcx with ESBL kleb pneumo, feeling well. Plan is 6 more days iv erta. Will follow prn, d/w nursing
--- NOTE | 2024-09-14 14:00 | CASEMGMT ---
Social Work SW phoned JOSEFINA Carranza, to complete initial assessment. Dillon confirmed he is pt's SO and has been living with and assisting pt for 3-4 years. Dillon provided pt's PMH and home set up. See CHRISTAL assessment for details. SO expressed great knowledge on pt's OMH and abilities and weaknesses, and cares very much for pt and her well-being. Son lives in [place]. SW educated to Medicare benefit and pt admitting on day 55/100, and if secondary insurance does not cover copays, copays are accruing at $204/day. SO's goal is for pt to regain strength to return home with his assistance. CHRISTAL will continue to follow for DC planning assistance. SUPRIYA HopsonW
[2024-09-14 16:00] VITALS: BP 145/67; PULSE 98; RESP 22; TEMP 36.7; O2SAT 95
[2024-09-14 17:04] LABS: Bedside Glucose 120 mg/dL (74-106)
[2024-09-14] MEDS: Glucerna Shake 120 ML LIQUID PO ×2 (17:09→22:20)
[2024-09-14 21:47] LABS: Bedside Glucose 308 mg/dL (74-106)
[2024-09-15 05:44] LABS: Hematocrit 27.5 % (37-47); Hemoglobin 8.4 g/dL (12.0-15.0)
[2024-09-15] MEDS: Glucerna Shake 120 ML LIQUID PO ×4 (05:45→20:05)
[2024-09-15] MEDS: Levothyroxine 100 MCG Tablet PO (05:46)
[2024-09-15] MEDS: Insulin Lispro 100 UNIT/ML INSULN.PEN 15 UNIT SC (06:46)
--- NOTE | 2024-09-15 06:58 | NURSING ---
blood sugar this am was 405, rn and doctor notified, new order was received for 15units of Lispro to be given x's 1. doctor also changed other insulin orders as well
[2024-09-15] MEDS: Lisinopril 10 MG Tablet PO (09:03)
[2024-09-15] MEDS: Pantoprazole Sodium 40 MG Tablet PO (09:03)
[2024-09-15] MEDS: Ferrous Sulfate 325 MG Tablet PO (09:03)
[2024-09-15] MEDS: amLODIPine 10 MG Tablet PO (09:03)
[2024-09-15] MEDS: Insulin Lispro 100 UNIT/ML INSULN.PEN 7 UNIT SC ×3 (09:03→17:12)
[2024-09-15 09:04] VITALS: BP 131/58; PULSE 96
[2024-09-15] MEDS: Umeclidinium Bromide Inhaler 1 PUFF INHALATION (09:04)
[2024-09-15] MEDS: Metoprolol(XL)Succ 25 MG Tablet PO (09:04)
[2024-09-15] MEDS: Senna/Docusate Sodium 1 Tablet 2 TABLET PO ×2 (09:04→20:06)
[2024-09-15] MEDS: Tolterodine Tartrate 2 MG CAP.SA PO (09:04)
[2024-09-15] MEDS: Atorvastatin Calcium 10 MG Tablet 5 MG PO (09:04)
[2024-09-15] MEDS: Magnesium Chloride 64 MG Delay Rel.Tablet 128 MG PO (09:04)
[2024-09-15] MEDS: Menthol/Lanolin/Calamine/Znox 113 GM Tube 1 APPLIC TOPICAL ×2 (09:05→20:06)
[2024-09-15 10:00] VITALS: BP 131/58; PULSE 96; RESP 16; O2SAT 92
[2024-09-15 11:34] LABS: Bedside Glucose 232 mg/dL (74-106)
[2024-09-15] MEDS: Ertapenem Sod 1 GM in 0.9% Normal Saline (50mL MB+) 50 ML IV (11:46)
[2024-09-15] MEDS: 0.9% Saline Lock 10 ML Syringe IV (11:47)
[2024-09-15 16:51] LABS: Bedside Glucose 193 mg/dL (74-106)
[2024-09-15] MEDS: Insulin Glargine-YFGN 100 UNIT/ML Pen 20 UNIT SC (17:12)
[2024-09-15 19:57] VITALS: PULSE 81; RESP 18; O2SAT 94
[2024-09-15 21:36] LABS: Bedside Glucose 172 mg/dL (74-106)
[2024-09-16] MEDS: Levothyroxine 150 MCG Tablet PO (05:56)
[2024-09-16 06:18] VITALS: PULSE 109; RESP 16; O2SAT 90
--- NOTE | 2024-09-16 06:33 | NURSING ---
Blood glucose 52. Patient easily arousable, talking. Tama juice given. Will recheck.
[2024-09-16 06:46] LABS: Bedside Glucose 52 mg/dL (74-106)
--- NOTE | 2024-09-16 06:55 | NURSING ---
Patient's blood sugar rechecked after giving orange juice. Result was 103. Will continue to monitor.
[2024-09-16 07:11] LABS: Bedside Glucose 103 mg/dL (74-106)
[2024-09-16 09:34] VITALS: BP 145/72; PULSE 91; RESP 20; TEMP 36.2; O2SAT 95
[2024-09-16] MEDS: Insulin Lispro 100 UNIT/ML INSULN.PEN 7 UNIT SC ×2 (09:36→12:28)
[2024-09-16] MEDS: Menthol/Lanolin/Calamine/Znox 113 GM Tube 1 APPLIC TOPICAL ×2 (09:37→19:39)
[2024-09-16] MEDS: Tolterodine Tartrate 2 MG CAP.SA PO (09:37)
[2024-09-16] MEDS: Cholecalciferol (VIT D3) 25 MCG TABLET (1,000 UNITS) 100 MCG PO (09:37)
[2024-09-16] MEDS: Lisinopril 10 MG Tablet PO (09:37)
[2024-09-16] MEDS: Ferrous Sulfate 325 MG Tablet PO (09:37)
[2024-09-16 09:38] VITALS: PULSE 91
[2024-09-16] MEDS: Metoprolol(XL)Succ 25 MG Tablet PO (09:38)
[2024-09-16] MEDS: Magnesium Chloride 64 MG Delay Rel.Tablet 128 MG PO (09:38)
[2024-09-16] MEDS: Pantoprazole Sodium 40 MG Tablet PO (09:38)
[2024-09-16] MEDS: Atorvastatin Calcium 10 MG Tablet 5 MG PO (09:39)
[2024-09-16] MEDS: Umeclidinium Bromide Inhaler 1 PUFF INHALATION (09:40)
[2024-09-16] MEDS: amLODIPine 10 MG Tablet PO (09:40)
[2024-09-16] MEDS: Ertapenem Sod 1 GM in 0.9% Normal Saline (50mL MB+) 50 ML IV (09:53)
[2024-09-16 11:31] LABS: Bedside Glucose 107 mg/dL (74-106)
[2024-09-16 16:51] LABS: Bedside Glucose 119 mg/dL (74-106)
[2024-09-16 21:45] LABS: Bedside Glucose 424 mg/dL (74-106)
[2024-09-16] MEDS: Insulin Glargine-YFGN 100 UNIT/ML Pen 20 UNIT SC (22:00)
--- NOTE | 2024-09-17 04:39 | NURSING ---
[place] noise, alerted by RT that patient was on floor beside bed. Entered room, found patient laying on her left side, noted pool of blood under head. Patient stated she was trying to get up and fell. PROCESS DEVELOPMENT CHEMIST called. VS BP 166/88, P 110, R 20, SpO2 86% on RA, patient had removed O2. She is on O2 Chronically and frequently removes her nasal cannula. Patient denies having pain anywhere but her head. Assisted up to bed, O2 reapplied. Noted to have laceration to left forehead. Transported to ED for evaluation. Dr. Barrett updated, Family notified.
[2024-09-17 07:55] LABS: Hematocrit 30.1 % (37-47)
[2024-09-17 08:08] LABS: Vitamin D,25 Hydroxy 37.8 ng/mL
[2024-09-17 08:42] VITALS: O2SAT 91
[2024-09-17] MEDS: Levothyroxine 100 MCG Tablet PO (08:56)
--- NOTE | 2024-09-17 09:07 | NURSING ---
Resident transferred back from ED to room around 0730 via stretcher. Sutures had been placed to laceration over eye, head CT completed w/ no acute findings.
[2024-09-17 09:27] LABS: Bedside Glucose 185 mg/dL (74-106)
[2024-09-17 09:44] LABS: Bedside Glucose 377 mg/dL (74-106)
[2024-09-17 09:44] LABS: Bedside Glucose 405 mg/dL (74-106)
--- NOTE | 2024-09-17 09:57 | CASEMGMT ---
Social Work Pt's SO presented to this worker's office off his personal electric w/c, requesting updates on pt's DC plans. SO is aware pt has IV ATB through 09/21. SW explained the goal is for pt to remain through that date to finish the IV ATB, but also beyond that date (going into the weekend) with a reevaluation of pt's strength and physical abilities to determine the safety for pt returning home. SW cited the phone conversation with SO last week noting pt will need to return to OF of her physical strength for SO to care for her safely at home. 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 SW agreed and reminded SO of upcoming scheduled POC meeting to review pt's LOF. SO confirmed. SW will continue to follow. Michell Lopez, [employer]PER[employer]
--- NOTE | 2024-09-17 10:01 | NURSING ---
Offered covid vaccine, VIS provided. Resident refuses at this time.
[2024-09-17] MEDS: Insulin Lispro 100 UNIT/ML INSULN.PEN 7 UNIT SC ×2 (10:18→12:09)
[2024-09-17 10:19] VITALS: BP 130/57; PULSE 93
[2024-09-17] MEDS: Metoprolol(XL)Succ 25 MG Tablet PO (10:19)
[2024-09-17] MEDS: Lisinopril 10 MG Tablet PO (10:19)
[2024-09-17] MEDS: Tolterodine Tartrate 2 MG CAP.SA PO (10:19)
[2024-09-17] MEDS: Magnesium Chloride 64 MG Delay Rel.Tablet 128 MG PO (10:20)
[2024-09-17] MEDS: amLODIPine 10 MG Tablet PO (10:20)
[2024-09-17] MEDS: Menthol/Lanolin/Calamine/Znox 113 GM Tube 1 APPLIC TOPICAL ×2 (10:20→20:49)
[2024-09-17] MEDS: Umeclidinium Bromide Inhaler 1 PUFF INHALATION (10:20)
[2024-09-17] MEDS: Atorvastatin Calcium 10 MG Tablet 5 MG PO (10:20)
[2024-09-17] MEDS: Pantoprazole Sodium 40 MG Tablet PO (10:20)
[2024-09-17] MEDS: 0.9% Normal Saline (500mL Bag) 500 ML 15 ML IV (11:15)
[2024-09-17] MEDS: 0.9 % NaCl (Sterile) Posiflush 10 mL IV (11:15)
[2024-09-17] MEDS: Nystatin Powder 15gm Bottle 1 APPLIC TOPICAL ×2 (11:16→20:54)
[2024-09-17] MEDS: Ertapenem Sod 1 GM in 0.9% Normal Saline (50mL MB+) 50 ML IV (11:16)
[2024-09-17] MEDS: Ferrous Sulfate 325 MG Tablet PO (11:16)
[2024-09-17 11:37] LABS: Bedside Glucose 226 mg/dL (74-106)
--- NOTE | 2024-09-17 12:38 | NURSING ---
Call from endoscopy, planning on egd tomorrow. Resident to be NPO at midnight.
[2024-09-17 15:04] LABS: Bacteria 0 SEEN /hpf (None Seen); Mucous, Urine 0 SEEN /hpf (<or=2+)
[2024-09-17 15:09] LABS: Color, Urine Yellow (Yellow); Glucose, Dipstick 250 mg/dl (Normal); Ketone-Dipstick Negative (Negative); Leukocyte Esterase-Dipstick 25 /ul (Negative); Nitrite-Dipstick Negative (Negative); Occult Blood-Urine 10 /ul (Negative); Protein-Dipstick Negative (Negative); Urine Bilirubin Dipstick Negative (Negative); Urine Clarity Clear (Clear); Urine Urobilinogen Normal (Normal); Urine pH 6.5 (5.0 - 8.0)
[2024-09-17 15:18] LABS: Amorphous Sediment 1+ URATE; Red Blood Cells-Urine 0-5 SEEN /hpf (0-5); Squamous Epithelial Cells - UA 0-5 SEEN /hpf (5-10); White Blood Cells 0-5 SEEN /hpf (0-5)
--- NOTE | 2024-09-17 15:53 | NURSING ---
Received call from PAT pt is to have EGD done tomorrow 09/18/24 Pt to be NPO after midnight. Can take Amlodipine, Levothyroxine, Metoprolol, Protonix, inhaler, tomorrow morning and 10 units of Glargine this evening .
[2024-09-17 17:41] LABS: Bedside Glucose 101 mg/dL (74-106)
[2024-09-17 19:01] VITALS: BP 116/49; PULSE 92; RESP 20; TEMP 36.7; O2SAT 92
[2024-09-17] MEDS: 0.9% Saline Lock 10 ML Syringe IV (20:48)
[2024-09-17] MEDS: Insulin Glargine-YFGN 100 UNIT/ML Pen 20 UNIT SC (20:51)
[2024-09-17 21:00] VITALS: PULSE 94; RESP 18; O2SAT 98
[2024-09-17 21:12] LABS: Bedside Glucose 221 mg/dL (74-106)
--- NOTE | 2024-09-18 00:01 | NURSING ---
NPO per order for EGD
[2024-09-18] MEDS: Levothyroxine 100 MCG Tablet PO (05:34)
[2024-09-18 06:41] LABS: Bedside Glucose 103 mg/dL (74-106)
[2024-09-18 07:00] VITALS: O2SAT 93
[2024-09-18] MEDS: Umeclidinium Bromide Inhaler 1 PUFF INHALATION (08:24)
[2024-09-18] MEDS: Menthol/Lanolin/Calamine/Znox 113 GM Tube 1 APPLIC TOPICAL ×2 (08:24→20:54)
[2024-09-18 08:25] VITALS: PULSE 104
[2024-09-18] MEDS: Pantoprazole Sodium 40 MG Tablet PO (08:25)
[2024-09-18] MEDS: amLODIPine 10 MG Tablet PO (08:25)
[2024-09-18] MEDS: Metoprolol(XL)Succ 25 MG Tablet PO (08:25)
[2024-09-18 08:32] VITALS: BMI 27.1
[2024-09-18] MEDS: Nystatin Powder 15gm Bottle 1 APPLIC TOPICAL ×2 (08:33→20:54)
[2024-09-18 11:11] VITALS: O2SAT 94
[2024-09-18] MEDS: Ertapenem Sod 1 GM in 0.9% Normal Saline (50mL MB+) 50 ML IV (11:33)
--- NOTE | 2024-09-18 11:35 | NURSING ---
Pt. refused Pneumonia vaccine today, stating she no longer wants it.
[2024-09-18 11:54] LABS: Bedside Glucose 142 mg/dL (74-106)
[2024-09-18 14:16] VITALS: BP 156/78; PULSE 104; RESP 18; TEMP 36.8; O2SAT 95
[2024-09-18] MEDS: Lisinopril 10 MG Tablet PO (18:05)
[2024-09-18] MEDS: Glucerna Shake 120 ML LIQUID PO (18:05)
[2024-09-18] MEDS: Insulin Lispro 100 UNIT/ML INSULN.PEN 7 UNIT SC (18:05)
[2024-09-18 18:14] LABS: Bedside Glucose 108 mg/dL (74-106)
[2024-09-18 19:08] LABS: Absolute Lymphocyte Count 2.98 X10^3/uL (0.83-4.51); Absolute Neutrophil Count 5.8 X10^3/uL (2.0-7.7); Basophil# 0.07 X10^3/uL; Basophil% 0.7 % (0-1); Eosinophil# 0.35 X10^3/uL; Eosinophils% 3.5 % (0-5); Hematocrit 31.3 % (37-47); Hemoglobin 9.3 g/dL (12.0-15.0); Lymphocyte # 2.98 X10^3/ul (0.83-4.51); Mean Corp Hgb Conc 29.7 g/dL (32-36); Mean Corpuscular Hgb 24.9 pg (27.0-32.0); Mean Corpuscular Volume 83.7 fL (81-99); Mean Platelet Vol. 9.5 fl (6.2-12.0); Monocyte# 0.64 X10^3/uL; Monocyte% 6.5 % (0-10); NRBC Flagged by Analyzer 0 % (0-5); Neutrophil # 5.79 X10^3/uL (2.7-7.7); Neutrophil % 58.4 % (47-70); POSITIVE MORPHOLOGY YES; Platelet Count 545 K/mm3 (150-450); RBC Distribution Width CV 20.4 % (11.6-14.6); RBC Distribution Width SD 57.9 fl (35.1-43.9); Red Blood Count 3.74 M/mm3 (4.2-5.4); White Blood Count 9.9 K/mm3 (4.4-11.0)
[2024-09-18 19:15] LABS: Differential Indicated SCAN CRITERIA MET
[2024-09-18 19:25] LABS: Anion Gap 6 (5-15); BUN 19 mg/dL (7-18); BUN/Creat Ratio 15.2 RATIO (10-20); Chloride 104 mmol/L (98-107); Creatinine, Serum 1.25 mg/dL (0.55-1.02); EST Glomerular Filtration Rate 44 mL/min (>60); Est Glom Filt Rate - Afr Amer 53 mL/min (>60); Estimated Creatinine Clearance 35.54 ml/min; Glucose 149 mg/dL (74-106); Potassium 4.2 mmol/L (3.5-5.1); Sodium Level 138 mmol/L (136-145)
[2024-09-18 20:19] LABS: Anisocytosis 2+; Polychromasia 1+
[2024-09-18 20:21] LABS: Platelet Morphology GIANT; Target Cells RARE
[2024-09-18 22:09] LABS: Bedside Glucose 144 mg/dL (74-106)
[2024-09-18] MEDS: Insulin Glargine-YFGN 100 UNIT/ML Pen 20 UNIT SC (23:00)
[2024-09-19 06:13] LABS: Bedside Glucose 140 mg/dL (74-106)
[2024-09-19] MEDS: Levothyroxine 100 MCG Tablet PO (06:33)
[2024-09-19 07:00] VITALS: O2SAT 93
--- NOTE | 2024-09-19 08:22 | PN_ITS ---
Subjective Subjective I was asked by nursing to see this patient with redness, pain and swelling in the perineum. She has been on ertapenem since 09/14 for UTI due to ESBL. Urine culture from 09/17 had no growth. The UA from that date had 0-5 WBCs with no back. Antibiotics are to finish on 09/20/24. She has dementia and is not able to give me much of a hx She is afebrile. Fluid intake is poor All lab drawn 09/18/2024 was personally reviewed. The white blood cell count is within normal limits. Hemoglobin is stable at 9.3. Platelets are increased at 545,000. She had 1+ polychromasia and 2+ anisocytosis. BUN yesterday was 19 with a creatinine of 1.25 which is up from 0.89 on 09/14/2024. Creatinine clearance is 35.54, down from 52 on 09/14/2024. Sodium is normal at 138 and the potassium is 4.2. Serum iron on 06/14/2024 was low at 13. The percent iron saturation was very low at 3 and the ferritin was only 5. She has heme positive stool and was seen by Dr. Valentin. She is on ferrous sulfate 325 mg daily. She is also on pantoprazole which may impair iron absorption. Objective Data Objective Data Vital Signs: Vital Signs Temp Pulse Resp BP Pulse Ox O2 Del Method O2 Flow Rate 98.2 F 104 H 18 156/78 H 95 Nasal Cannula 2 09/18/24 14:16 09/18/24 14:16 09/18/24 14:16 09/18/24 14:16 09/18/24 14:16 09/18/24 20:55 09/18/24 20:55 Oxygen Flow Rate (L/min) 2 Oxygen Delivery Method Nasal Cannula Weight: 163 lb Body Mass Index (BMI) 27.1 Intake & Output: Intake and Output for Last 24 Hours 09/17/24 09/18/24 09/19/24 23:59 23:59 23:59 Intake Total 660 / 660 539.75 / 539.75 0 / 0 Balance 660 / 660 539.75 / 539.75 0 / 0 Lab / Micro Data 09/18/24 19:00 09/18/24 19:00 Labs: Laboratory Results - last 24 hr 09/18/24 11:31: POC Glucose 142 H 09/18/24 17:56: POC Glucose 108 H 09/18/24 19:00: WBC 9.9, RBC 3.74 L, Hgb 9.3 L, Hct 31.3 L, MCV 83.7, MCH 24.9 L , MCHC 29.7 L, RDW Std Deviation 57.9 H, RDW Coeff of Kristyn 20.4 H, Plt Count 545 H, MPV 9.5, Immature Gran % (Auto) 0.900, Neut % (Auto) 58.4, Lymph % (Auto) 30.0, Burnet % (Auto) 6.5, Eos % (Auto) 3.5, Baso % (Auto) 0.7, Absolute Neuts (auto) 5.8, Absolute Lymphs (auto) 2.98, Nucleated RBC % 0, Plt Morphology Comment GIANT, Polychromasia 1+, Anisocytosis 2+, Target Cells RARE, Sodium 138, Potassium 4.2, Chloride 104, Carbon Dioxide 28.0, Anion Gap 6, BUN 19 H, C reatinine 1.25 H, Estim Creat Clear Calc 35.54, Est GFR (MDRD) Af Amer 53 L, Est GFR (MDRD) Non-Af 44 L, BUN/Creatinine Ratio 15.2, Glucose 149 H, Calcium 9.0 09/18/24 21:46: POC Glucose 144 H 09/19/24 05:55: POC Glucose 140 H Micro: Microbiology 09/17/24 14:50 Urine, Catheterized Urine Culture - Preliminary Culture exhibits no growth. 09/14/24 11:10 Stool Stool Occult Blood (VENKAT) - Final Occult Blood Positive 09/14/24 05:35 Nasal Secretion SARS-CoV-2 Antigen (Rapid) - Final Physical Exam Const Constitutional Narrative: She is arousable. Poor historian. Falls back to sleep easily. HEENT Mouth: dry mucous membranes Resp normal respiratory effort GI normal to inspection, nondistended, normoactive bowel sounds GI Narrative: No guarding with palpation Skin Skin Narrative: She has intertrigo of the groin. There is redness and swelling of the labia and she has pain with palpation.......She says NO loudly when I spread the labia. There is also some swelling around the clitoris. She would not let me insert a finger into the vagina.......there was no visible DC at the introitus. Assessment & Plan Assessment/Plan (1) Acute renal failure: QUALIFIERS: Acute renal failure type: unspecified Qualified Code(s): N17.9 - Acute kidney failure, unspecified (2) Vulvovaginitis due to Evette: (3) Hx of iron deficiency: (4) Alzheimer disease: (5) Iron deficiency anemia: QUALIFIERS: Iron deficiency anemia type: chronic blood loss Q ualified Code(s): D50.0 - Iron deficiency anemia secondary to blood loss (chronic) (6) UTI (urinary tract infection): QUALIFIERS: Urinary tract infection type: acute pyelonephritis Q ualified Code(s): N10 - Acute pyelonephritis PLAN: Klebsiella pneumoniae ESBL bacteremia (7) Bacteremia due to Gram-negative bacteria: PLAN: Plan 1. Diflucan 150 mg Q 72H X 3 doses 2. Check iron studies today -if she is still severely iron deficient will likely need to have iron sucrose intravenously 3. Finish the 7-day course of ertapenem for a Klebsiella pneumoniae ESBL with bacteremia 4. No need to repeat a UA and urine culture today since she had no pyuria, no bacteria in the urine and a negative urine culture on 09/17/2024. Charges/Coding Visit Charges Inpatient E&M: [id number] [facility] L1
[2024-09-19] MEDS: Insulin Lispro 100 UNIT/ML INSULN.PEN 7 UNIT SC ×2 (08:29→17:53)
[2024-09-19] MEDS: Magnesium Chloride 64 MG Delay Rel.Tablet 128 MG PO (08:30)
[2024-09-19] MEDS: amLODIPine 10 MG Tablet PO (08:30)
[2024-09-19] MEDS: Pantoprazole Sodium 40 MG Tablet PO (08:30)
[2024-09-19 08:31] VITALS: BP 129/65; PULSE 59
[2024-09-19] MEDS: Metoprolol(XL)Succ 25 MG Tablet PO (08:31)
[2024-09-19] MEDS: Atorvastatin Calcium 10 MG Tablet 5 MG PO (08:31)
[2024-09-19] MEDS: Senna/Docusate Sodium 1 Tablet 2 TABLET PO ×2 (08:31→21:53)
[2024-09-19] MEDS: Ferrous Sulfate 325 MG Tablet PO (08:31)
[2024-09-19] MEDS: Tolterodine Tartrate 2 MG CAP.SA PO (08:31)
[2024-09-19] MEDS: Nystatin Powder 15gm Bottle 1 APPLIC TOPICAL ×2 (08:32→21:53)
[2024-09-19] MEDS: Menthol/Lanolin/Calamine/Znox 113 GM Tube 1 APPLIC TOPICAL ×2 (08:32→21:51)
[2024-09-19 09:46] LABS: Ferritin 159 ng/mL (8-252); Iron 31 ug/dL (50-170); Iron Binding Capacity,Total 240 ug/dL (250-450); PERCENT IRON SATURATION 12.9 % (15.0-55.0)
[2024-09-19] MEDS: Umeclidinium Bromide Inhaler 1 PUFF INHALATION (09:55)
[2024-09-19] MEDS: FLUCONAZOLE 150 MG TABLET PO (09:56)
[2024-09-19] MEDS: Ertapenem Sod 1 GM in 0.9% Normal Saline (50mL MB+) 50 ML IV (09:56)
[2024-09-19] MEDS: 0.9 % NaCl (Sterile) Posiflush 10 mL IV (09:56)
[2024-09-19] MEDS: Lisinopril 10 MG Tablet PO (09:56)
--- NOTE | 2024-09-19 10:40 | CASEMGMT ---
Social Work IDT met with patient and SO for care plan meeting. Discussed patient's progress in PT/OT/ST/SN. Educated to Medicare benefit. Provided SO with written communication on insurance process and copay coverage during stay. Discussed pt's decline physically and cognitively than at baseline. Pt is having difficulty responding to directions, disoriented. Pt is on IV ATB until 09/20. SO cared for pt at home prior, though is not repeating back information to IDT that was reported. Unsure if SO is understanding pt's current LOF and he may not be able to care for her at DC, if pt does not improve to PLOF. Though SO is very knowledgeable of pt's prior needs and PMH. Offered therapy training. SO is defensive to pt's cognition and expressed not feeling pt being oriented is an important goal, but he does want pt to be safe to go home. SO stated pt not be responding to staff because we are strangers and pt only responds to him as a familiar person. SW acknowledged, and offered for SO to be present for therapy sessions to assist in pt following directions. SW noted that if pt is not able to function safely, the recommendation will not be home. SO expressed understanding. SW will continue to follow for DC planning assistance. SW completed BIMS (06/07) and PHQ-2 () for MDS assessment. SUPRIYA Hopson
--- NOTE | 2024-09-19 11:11 | MDS.RN ---
MDS pain/activity assessment completed.
[2024-09-19 12:20] LABS: Bedside Glucose 124 mg/dL (74-106)
[2024-09-19] MEDS: Glucerna Shake 120 ML LIQUID PO (12:23)
[2024-09-19 16:00] VITALS: BP 109/53; PULSE 78; RESP 16; TEMP 36.7; O2SAT 95
[2024-09-19 17:36] LABS: Bedside Glucose 210 mg/dL (74-106)
--- NOTE | 2024-09-19 18:59 | NURSING ---
Addendum entered by Mariam Denise 09/19/24 19:02: Pt Straight Cathed using sterile technique for 400ml of clear yellow urine. Pt tolerated procedures well. Original Note: Pt Bladder scanned for 471ml. Dr. Urrutia updated and N.O. received to Straight Cath pt and continue post void residuals.
[2024-09-19] MEDS: Insulin Glargine-YFGN 100 UNIT/ML Pen 20 UNIT SC (21:52)
[2024-09-19 22:02] LABS: Bedside Glucose 167 mg/dL (74-106)
[2024-09-19 22:24] VITALS: O2SAT 93
--- NOTE | 2024-09-19 22:35 | NURSING ---
Patient taking O2 nasal cannula off often. After being replaced, SpO2 only 82-84 on 2L/min after a few minutes. O2 bumped up to 5L/min. Call placed to respiratory. SpO2 up to 94% on 5L/min, dropping to 92% at times. Call placed to Dr. Urrutia regarding patient's SpO2. No new orders at this time. RT placed mask at bedside if needed and stated to call her if needed.
[2024-09-19 22:40] VITALS: PULSE 84; RESP 16; O2SAT 94
[2024-09-20] MEDS: Levothyroxine 100 MCG Tablet PO (05:29)
[2024-09-20 05:37] VITALS: PULSE 81; RESP 16; O2SAT 95
--- NOTE | 2024-09-20 06:04 | NURSING ---
Addendum entered by Cale Mejia 09/20/24 08:10: Patient voided again, post residual after incontinence at 250cc. No lai at this time. Original Note: Patient bladder scanned after being incontinent. Result of 355cc. Will place lai at this time.
[2024-09-20 06:16] LABS: Bedside Glucose 113 mg/dL (74-106)
[2024-09-20 07:25] LABS: Anion Gap 4 (5-15); BUN 26 mg/dL (7-18); Calcium,Total 8.8 mg/dL (8.5-10.1); Chloride 103 mmol/L (98-107); Creatinine, Serum 1.13 mg/dL (0.55-1.02); EST Glomerular Filtration Rate 49 mL/min (>60); Est Glom Filt Rate - Afr Amer 59 mL/min (>60); Estimated Creatinine Clearance 39.31 ml/min; Glucose 101 mg/dL (74-106); Potassium 4.3 mmol/L (3.5-5.1); Sodium Level 137 mmol/L (136-145)
--- NOTE | 2024-09-20 07:39 | RAD_ITS ---
EXAM: XR CHEST, 2 VIEWS CLINICAL INDICATION: Hypoxemia TECHNIQUE: Frontal and lateral views of the chest. COMPARISON: XR Chest dated 06/29/2024 FINDINGS: LUNGS AND PLEURAL SPACES: Small left pleural effusion noted with compression atelectasis of the left lower lobe. HEART: Borderline cardiomegaly. MEDIASTINUM: No mediastinal or hilar mass. BONES/JOINTS: No acute abnormality. RAD/Chest PA and Lateral IMPRESSION: Small left pleural effusion noted with compression atelectasis of the left lower lobe. Electronically Signed: Edvin Drew MD at 8:59 EST ,
[2024-09-20 07:51] VITALS: O2SAT 92
[2024-09-20] MEDS: Pantoprazole Sodium 40 MG Tablet PO (08:28)
[2024-09-20] MEDS: Magnesium Chloride 64 MG Delay Rel.Tablet 128 MG PO (08:28)
[2024-09-20] MEDS: Senna/Docusate Sodium 1 Tablet 2 TABLET PO ×2 (08:28→21:27)
[2024-09-20] MEDS: Atorvastatin Calcium 10 MG Tablet 5 MG PO (08:28)
[2024-09-20] MEDS: Lisinopril 10 MG Tablet PO (08:28)
[2024-09-20 08:29] VITALS: BP 125/80; PULSE 80
[2024-09-20] MEDS: Tolterodine Tartrate 2 MG CAP.SA PO (08:29)
[2024-09-20] MEDS: Cholecalciferol (VIT D3) 25 MCG TABLET (1,000 UNITS) 100 MCG PO (08:29)
[2024-09-20] MEDS: Metoprolol(XL)Succ 25 MG Tablet PO (08:29)
[2024-09-20] MEDS: Ferrous Sulfate 325 MG Tablet PO (08:30)
[2024-09-20] MEDS: Nystatin Powder 15gm Bottle 1 APPLIC TOPICAL ×2 (08:35→21:27)
[2024-09-20] MEDS: Menthol/Lanolin/Calamine/Znox 113 GM Tube 1 APPLIC TOPICAL ×2 (08:36→21:26)
[2024-09-20] MEDS: Umeclidinium Bromide Inhaler 1 PUFF INHALATION (08:36)
[2024-09-20] MEDS: amLODIPine 10 MG Tablet PO (08:37)
[2024-09-20 08:39] LABS: BNP,B-Type NATRIURETIC PEPTIDE 62.4 pg/mL (0-100)
[2024-09-20] MEDS: Ertapenem Sod 1 GM in 0.9% Normal Saline (50mL MB+) 50 ML IV (10:17)
[2024-09-20 11:55] LABS: Bedside Glucose 107 mg/dL (74-106)
[2024-09-20 16:00] VITALS: BP 108/46; PULSE 99; RESP 14; TEMP 37.1; O2SAT 94
[2024-09-20 16:57] LABS: Bedside Glucose 273 mg/dL (74-106)
[2024-09-20] MEDS: Insulin Lispro 100 UNIT/ML INSULN.PEN 7 UNIT SC (17:30)
--- NOTE | 2024-09-20 19:18 | NURSING ---
Pt removes oxygen this shift, reapplied by staff, states she does not need oxygen and can take it off for short periods. Patient and educated on oxygen order and oxygen therapy.
[2024-09-20] MEDS: Insulin Glargine-YFGN 100 UNIT/ML Pen 20 UNIT SC (21:28)
[2024-09-20 21:51] LABS: Bedside Glucose 194 mg/dL (74-106)
[2024-09-21] MEDS: Levothyroxine 100 MCG Tablet PO (05:59)
[2024-09-21 06:11] LABS: Absolute Lymphocyte Count 2.91 X10^3/uL (0.83-4.51); Absolute Neutrophil Count 4.9 X10^3/uL (2.0-7.7); Basophil# 0.07 X10^3/uL; Basophil% 0.8 % (0-1); Eosinophil# 0.37 X10^3/uL; Eosinophils% 4.1 % (0-5); Hematocrit 29.8 % (37-47); Hemoglobin 8.9 g/dL (12.0-15.0); Lymphocyte # 2.91 X10^3/ul (0.83-4.51); Mean Corp Hgb Conc 29.9 g/dL (32-36); Mean Corpuscular Hgb 24.7 pg (27.0-32.0); Mean Corpuscular Volume 82.8 fL (81-99); Mean Platelet Vol. 9.7 fl (6.2-12.0); Monocyte# 0.73 X10^3/uL; NRBC Flagged by Analyzer 0 % (0-5); Neutrophil # 4.91 X10^3/uL (2.7-7.7); Neutrophil % 54.1 % (47-70); Platelet Count 569 K/mm3 (150-450); RBC Distribution Width CV 19.6 % (11.6-14.6); RBC Distribution Width SD 54.9 fl (35.1-43.9); White Blood Count 9.1 K/mm3 (4.4-11.0)
[2024-09-21 06:28] LABS: AST(SGOT) 11 U/L (15-37); Alanine Aminotransfer ALT/SGPT 11 U/L (13-56); Albumin, Serum 2.3 g/dL (3.2-5.0); Alkaline Phosphatase 82 U/L (45-117); Anion Gap 5 (5-15); BUN 24 mg/dL (7-18); BUN/Creat Ratio 22.9 RATIO (10-20); Bilirubin, Direct 0.09 mg/dL (0.00-0.30); Calcium,Total 9.2 mg/dL (8.5-10.1); Chloride 103 mmol/L (98-107); Creatinine, Serum 1.05 mg/dL (0.55-1.02); EST Glomerular Filtration Rate 53 mL/min (>60); Est Glom Filt Rate - Afr Amer 65 mL/min (>60); Estimated Creatinine Clearance 42.31 ml/min; Globulin 4.1 g/dL (2.2-4.2); Glucose 78 mg/dL (74-106); Potassium 3.9 mmol/L (3.5-5.1); Protein, Total 6.4 g/dL (6.4-8.2); Sodium Level 138 mmol/L (136-145)
[2024-09-21 06:44] LABS: Bedside Glucose 62 mg/dL (74-106)
[2024-09-21 07:19] LABS: Bedside Glucose 88 mg/dL (74-106)
[2024-09-21] MEDS: Insulin Lispro 100 UNIT/ML INSULN.PEN 7 UNIT SC (07:54)
[2024-09-21] MEDS: Ferrous Sulfate 325 MG Tablet PO (07:59)
[2024-09-21] MEDS: Tuberculin,Purif.prot.deriv. 50 TU/ML Vial 0.1 ML ID (10:25)
[2024-09-21] MEDS: Menthol/Lanolin/Calamine/Znox 113 GM Tube 1 APPLIC TOPICAL ×2 (10:25→21:26)
[2024-09-21] MEDS: Lisinopril 10 MG Tablet PO (10:26)
[2024-09-21] MEDS: Pantoprazole Sodium 40 MG Tablet PO (10:26)
[2024-09-21] MEDS: Senna/Docusate Sodium 1 Tablet 2 TABLET PO (10:26)
[2024-09-21] MEDS: Tolterodine Tartrate 2 MG CAP.SA PO (10:26)
[2024-09-21] MEDS: Atorvastatin Calcium 10 MG Tablet 5 MG PO (10:27)
[2024-09-21] MEDS: Magnesium Chloride 64 MG Delay Rel.Tablet 128 MG PO (10:27)
[2024-09-21] MEDS: Umeclidinium Bromide Inhaler 1 PUFF INHALATION (10:27)
[2024-09-21 10:28] VITALS: PULSE 81
[2024-09-21] MEDS: Metoprolol(XL)Succ 25 MG Tablet PO (10:28)
[2024-09-21] MEDS: Nystatin Powder 15gm Bottle 1 APPLIC TOPICAL ×2 (10:28→21:26)
[2024-09-21] MEDS: amLODIPine 10 MG Tablet PO (10:28)
[2024-09-21 11:41] LABS: Bedside Glucose 87 mg/dL (74-106)
[2024-09-21] MEDS: Insulin Lispro 100 UNIT/ML INSULN.PEN SC ×2 (11:58→17:48)
[2024-09-21 15:35] VITALS: BP 125/55; PULSE 78; RESP 19; TEMP 35.8; O2SAT 91
[2024-09-21 16:23] LABS: Bedside Glucose 110 mg/dL (74-106)
--- NOTE | 2024-09-21 19:33 | NURSING ---
on unit, written order received to remove forehead sutures on 09/25/24
[2024-09-21] MEDS: Insulin Glargine-YFGN 100 UNIT/ML Pen 16 UNIT SC (21:27)
[2024-09-21 22:08] LABS: Bedside Glucose 187 mg/dL (74-106)
[2024-09-22] MEDS: Levothyroxine 100 MCG Tablet PO (05:26)
[2024-09-22] MEDS: 0.9% Saline Lock 10 ML Syringe IV (05:27)
[2024-09-22 05:51] VITALS: RESP 16; O2SAT 95
[2024-09-22 06:26] LABS: Bedside Glucose 96 mg/dL (74-106)
[2024-09-22 10:00] VITALS: RESP 16
[2024-09-22] MEDS: Ferrous Sulfate 325 MG Tablet PO (10:02)
[2024-09-22 10:03] VITALS: PULSE 87
[2024-09-22] MEDS: amLODIPine 10 MG Tablet PO (10:03)
[2024-09-22] MEDS: FLUCONAZOLE 150 MG TABLET PO (10:03)
[2024-09-22] MEDS: Magnesium Chloride 64 MG Delay Rel.Tablet 128 MG PO (10:03)
[2024-09-22] MEDS: Tolterodine Tartrate 2 MG CAP.SA PO (10:03)
[2024-09-22] MEDS: Menthol/Lanolin/Calamine/Znox 113 GM Tube 1 APPLIC TOPICAL ×2 (10:03→21:06)
[2024-09-22] MEDS: Pantoprazole Sodium 40 MG Tablet PO (10:03)
[2024-09-22] MEDS: Atorvastatin Calcium 10 MG Tablet 5 MG PO (10:03)
[2024-09-22] MEDS: Metoprolol(XL)Succ 25 MG Tablet PO (10:03)
[2024-09-22] MEDS: Nystatin Powder 15gm Bottle 1 APPLIC TOPICAL ×2 (10:04→21:06)
[2024-09-22] MEDS: Cholecalciferol (VIT D3) 25 MCG TABLET (1,000 UNITS) 100 MCG PO (10:04)
[2024-09-22] MEDS: Lisinopril 10 MG Tablet PO (10:04)
[2024-09-22] MEDS: Umeclidinium Bromide Inhaler 1 PUFF INHALATION (10:04)
[2024-09-22 11:19] VITALS: BP 118/50; PULSE 87; RESP 18; TEMP 36.6; O2SAT 93
[2024-09-22 12:23] LABS: Bedside Glucose 65 mg/dL (74-106)
[2024-09-22] MEDS: Insulin Lispro 100 UNIT/ML INSULN.PEN SC ×2 (13:15→17:59)
[2024-09-22 13:56] VITALS: O2SAT 94
[2024-09-22 17:15] LABS: Bedside Glucose 185 mg/dL (74-106)
[2024-09-22] MEDS: Insulin Lispro 100 UNIT/ML INSULN.PEN 7 UNIT SC (17:59)
[2024-09-22] MEDS: Insulin Glargine-YFGN 100 UNIT/ML Pen 12 UNIT SC (21:04)
[2024-09-22 21:25] LABS: Bedside Glucose 127 mg/dL (74-106)
[2024-09-23 06:19] LABS: Bedside Glucose 54 mg/dL (74-106)
[2024-09-23] MEDS: Levothyroxine 150 MCG Tablet PO (06:45)
[2024-09-23 07:59] LABS: Bedside Glucose 55 mg/dL (74-106)
[2024-09-23] MEDS: Glucagon 1 MG/ML Syringe IM (08:04)
[2024-09-23 08:46] LABS: Bedside Glucose 120 mg/dL (74-106)
[2024-09-23] MEDS: Tolterodine Tartrate 2 MG CAP.SA PO (08:47)
[2024-09-23] MEDS: Menthol/Lanolin/Calamine/Znox 113 GM Tube 1 APPLIC TOPICAL ×2 (08:47→20:11)
[2024-09-23] MEDS: Ferrous Sulfate 325 MG Tablet PO (08:47)
[2024-09-23] MEDS: Magnesium Chloride 64 MG Delay Rel.Tablet 128 MG PO (08:48)
[2024-09-23] MEDS: Atorvastatin Calcium 10 MG Tablet 5 MG PO (08:48)
[2024-09-23] MEDS: Nystatin Powder 15gm Bottle 1 APPLIC TOPICAL ×2 (08:48→20:10)
[2024-09-23] MEDS: amLODIPine 10 MG Tablet PO (08:49)
[2024-09-23] MEDS: Pantoprazole Sodium 40 MG Tablet PO (08:49)
[2024-09-23 08:50] VITALS: BP 107/47; PULSE 78
[2024-09-23] MEDS: Metoprolol(XL)Succ 25 MG Tablet PO (08:50)
[2024-09-23] MEDS: Lisinopril 10 MG Tablet PO (08:51)
[2024-09-23] MEDS: Insulin Lispro 100 UNIT/ML INSULN.PEN SC ×4 (08:55→17:52)
[2024-09-23 09:00] VITALS: BP 107/47; PULSE 78; O2SAT 92
--- NOTE | 2024-09-23 09:04 | NURSING ---
HAD LOOK AT PT TB SITE DUE IT WAS RED AND QUESTIONABLE. STATED IT WAS NEGATIVE. RN AWARE
[2024-09-23] MEDS: Umeclidinium Bromide Inhaler 1 PUFF INHALATION (11:09)
[2024-09-23 11:46] LABS: Bedside Glucose 173 mg/dL (74-106)
[2024-09-23 13:43] VITALS: O2SAT 92
[2024-09-23 15:00] VITALS: PULSE 87; RESP 18; O2SAT 97
[2024-09-23] MEDS: 0.9% Saline Lock 10 ML Syringe IV (15:24)
[2024-09-23 15:47] LABS: Bedside Glucose 150 mg/dL (74-106)
--- NOTE | 2024-09-23 16:34 | NURSING ---
PT AND UPDATED ON A STAFF MEMBER TESTED POSITIVE FOR COVID.
[2024-09-23] MEDS: Insulin Lispro 100 UNIT/ML INSULN.PEN 6 UNIT SC (17:53)
[2024-09-23 21:42] LABS: Bedside Glucose 157 mg/dL (74-106)
[2024-09-24] MEDS: Levothyroxine 100 MCG Tablet PO (05:37)
[2024-09-24 06:38] LABS: Bedside Glucose 230 mg/dL (74-106)
[2024-09-24] MEDS: Magnesium Chloride 64 MG Delay Rel.Tablet 128 MG PO (08:32)
[2024-09-24] MEDS: amLODIPine 10 MG Tablet PO (08:32)
[2024-09-24] MEDS: Ferrous Sulfate 325 MG Tablet PO (08:32)
[2024-09-24] MEDS: Senna/Docusate Sodium 1 Tablet 2 TABLET PO (08:32)
[2024-09-24] MEDS: Atorvastatin Calcium 10 MG Tablet 5 MG PO (08:32)
[2024-09-24] MEDS: Tolterodine Tartrate 2 MG CAP.SA PO (08:32)
[2024-09-24 08:35] VITALS: BP 123/56; PULSE 92
[2024-09-24] MEDS: Pantoprazole Sodium 40 MG Tablet PO (08:35)
[2024-09-24] MEDS: Metoprolol(XL)Succ 25 MG Tablet PO (08:35)
[2024-09-24] MEDS: Cholecalciferol (VIT D3) 25 MCG TABLET (1,000 UNITS) 100 MCG PO (08:36)
[2024-09-24] MEDS: Insulin Glargine-YFGN 100 UNIT/ML Pen 10 UNIT SC (08:37)
[2024-09-24] MEDS: Lisinopril 10 MG Tablet PO (08:37)
[2024-09-24] MEDS: Insulin Lispro 100 UNIT/ML INSULN.PEN SC ×4 (08:37→12:24)
[2024-09-24] MEDS: Umeclidinium Bromide Inhaler 1 PUFF INHALATION (08:39)
[2024-09-24] MEDS: Menthol/Lanolin/Calamine/Znox 113 GM Tube 1 APPLIC TOPICAL ×2 (08:39→23:23)
[2024-09-24] MEDS: Nystatin Powder 15gm Bottle 1 APPLIC TOPICAL ×2 (08:39→23:23)
--- NOTE | 2024-09-24 10:58 | CASEMGMT ---
Social Work SO presented to this worker's office. So stated well she didn't make me look very good at our meeting last week, referring to pt's cognition. SO explained he spoke to pt's family and they want her to go to a rest home. SO agreed to SNF placement at [place] to ensure she gets the infection cleared. Then we can quit calling the squad. SO stated he spoke with [facility] and [facility] and obtained pricing, and [facility] is cheaper and pt does not mind a semi-private room. SW agreed to SNF placement and praised SO for recognition for getting pt the most beneficial care. SW offered to provide all-inclusive list of SNF providers including quality and resource data via CarePort Guide. SO agreed. SW provided printed list to SO to review. SW reiterated there is no DC date set yet, but this worker will place referrals to SNFs requested. SO appreciative. SW will continue to follow. Michell Lopez MSW LIGHT RAIL TRAIN OPERATOR
[2024-09-24 11:34] LABS: Bedside Glucose 151 mg/dL (74-106)
[2024-09-24 12:26] VITALS: O2SAT 97
[2024-09-24] MEDS: 0.9 % NaCl (Sterile) Posiflush 10 mL IV (12:27)
[2024-09-24 14:55] VITALS: BP 106/50; PULSE 83; RESP 22; TEMP 36.1; O2SAT 90
[2024-09-24 16:39] LABS: Bedside Glucose 133 mg/dL (74-106)
[2024-09-24] MEDS: Insulin Lispro 100 UNIT/ML INSULN.PEN 6 UNIT SC (18:17)
[2024-09-24 21:49] LABS: Bedside Glucose 199 mg/dL (74-106)
[2024-09-25] MEDS: Levothyroxine 100 MCG Tablet PO (05:15)
[2024-09-25 06:22] LABS: Bedside Glucose 181 mg/dL (74-106)
[2024-09-25 08:00] VITALS: BMI 27.9
[2024-09-25] MEDS: Ferrous Sulfate 325 MG Tablet PO (09:14)
[2024-09-25] MEDS: FLUCONAZOLE 150 MG TABLET PO (09:14)
[2024-09-25] MEDS: Atorvastatin Calcium 10 MG Tablet 5 MG PO (09:14)
[2024-09-25] MEDS: Tolterodine Tartrate 2 MG CAP.SA PO (09:14)
[2024-09-25] MEDS: Magnesium Chloride 64 MG Delay Rel.Tablet 128 MG PO (09:15)
[2024-09-25] MEDS: Lisinopril 10 MG Tablet PO (09:15)
[2024-09-25] MEDS: Pantoprazole Sodium 40 MG Tablet PO (09:15)
[2024-09-25] MEDS: amLODIPine 10 MG Tablet PO (09:15)
[2024-09-25] MEDS: Senna/Docusate Sodium 1 Tablet 2 TABLET PO (09:15)
[2024-09-25] MEDS: Insulin Lispro 100 UNIT/ML INSULN.PEN SC ×5 (09:15→17:44)
[2024-09-25] MEDS: Menthol/Lanolin/Calamine/Znox 113 GM Tube 1 APPLIC TOPICAL ×2 (09:16→20:40)
[2024-09-25] MEDS: Insulin Glargine-YFGN 100 UNIT/ML Pen 10 UNIT SC (09:16)
[2024-09-25 09:17] VITALS: BP 125/60; PULSE 87
[2024-09-25] MEDS: Metoprolol(XL)Succ 25 MG Tablet PO (09:17)
[2024-09-25] MEDS: Nystatin Powder 15gm Bottle 1 APPLIC TOPICAL ×2 (09:17→20:40)
[2024-09-25 09:21] VITALS: BP 125/60; PULSE 87; RESP 17; TEMP 36.6; O2SAT 97
[2024-09-25] MEDS: Umeclidinium Bromide Inhaler 1 PUFF INHALATION (09:22)
[2024-09-25 10:27] VITALS: O2SAT 95
--- NOTE | 2024-09-25 11:53 | MDS.RN ---
Information for the MDS was obtained from review of the clinical record, interview of resident, staff, and direct observation of resident?s care.
[2024-09-25 12:00] LABS: Bedside Glucose 268 mg/dL (74-106)
[2024-09-25 13:45] VITALS: O2SAT 91
[2024-09-25] MEDS: Insulin Lispro 100 UNIT/ML INSULN.PEN 6 UNIT SC (17:44)
[2024-09-25 18:03] LABS: Bedside Glucose 255 mg/dL (74-106)
[2024-09-25 20:20] VITALS: RESP 17; O2SAT 98
[2024-09-25] MEDS: 0.9% Saline Lock 10 ML Syringe IV (20:39)
[2024-09-25 22:54] LABS: Bedside Glucose 275 mg/dL (74-106)
--- NOTE | 2024-09-26 00:08 | NURSING ---
Suture remove to forehead completed per provider order. Eight sutures removed. Resident tolerated well. Laceration is well approximated and without redness, warmth, or swelling. No active drainage noted. Will continue to monitor.
[2024-09-26] MEDS: Levothyroxine 100 MCG Tablet PO (06:02)
[2024-09-26 06:31] LABS: Bedside Glucose 323 mg/dL (74-106)
[2024-09-26] MEDS: Ferrous Sulfate 325 MG Tablet PO (08:23)
[2024-09-26] MEDS: Menthol/Lanolin/Calamine/Znox 113 GM Tube 1 APPLIC TOPICAL ×2 (08:23→20:36)
[2024-09-26] MEDS: Tolterodine Tartrate 2 MG CAP.SA PO (08:24)
[2024-09-26] MEDS: Umeclidinium Bromide Inhaler 1 PUFF INHALATION (08:24)
[2024-09-26] MEDS: Insulin Glargine-YFGN 100 UNIT/ML Pen 20 UNIT SC ×2 (08:24→20:38)
[2024-09-26] MEDS: Atorvastatin Calcium 10 MG Tablet 5 MG PO (08:26)
[2024-09-26] MEDS: Magnesium Chloride 64 MG Delay Rel.Tablet 128 MG PO (08:26)
[2024-09-26 08:27] VITALS: BP 117/56; PULSE 97
[2024-09-26] MEDS: Metoprolol(XL)Succ 25 MG Tablet PO (08:27)
[2024-09-26] MEDS: Senna/Docusate Sodium 1 Tablet 2 TABLET PO ×2 (08:27→20:33)
[2024-09-26] MEDS: Nystatin Powder 15gm Bottle 1 APPLIC TOPICAL ×2 (08:27→20:36)
[2024-09-26] MEDS: amLODIPine 10 MG Tablet PO (08:27)
[2024-09-26] MEDS: Pantoprazole Sodium 40 MG Tablet PO (08:27)
[2024-09-26] MEDS: Lisinopril 10 MG Tablet PO (08:28)
[2024-09-26] MEDS: Cholecalciferol (VIT D3) 25 MCG TABLET (1,000 UNITS) 100 MCG PO (08:28)
[2024-09-26] MEDS: Insulin Lispro 100 UNIT/ML INSULN.PEN 13 UNIT SC ×3 (08:29→17:08)
[2024-09-26 08:32] VITALS: O2SAT 92
[2024-09-26 11:54] LABS: Bedside Glucose 257 mg/dL (74-106)
[2024-09-26] MEDS: 0.9 % NaCl (Sterile) Posiflush 10 mL IV (12:07)
[2024-09-26 17:06] LABS: Bedside Glucose 184 mg/dL (74-106)
[2024-09-26 21:54] LABS: Bedside Glucose 96 mg/dL (74-106)
[2024-09-27] MEDS: Levothyroxine 100 MCG Tablet PO (05:30)
--- NOTE | 2024-09-27 05:34 | NURSING ---
STNAs were checking patient, when she stated that her stomach was upset. This nurse asked them to check her blood sugar, as she has been up and down lately. Blood sugar at this time was 34. Patient was given 2 orange juices with sugar added, a peanut butter cup and benjamin crackers. will continue to monitor.
[2024-09-27 05:42] LABS: Bedside Glucose 34 mg/dL (74-106)
[2024-09-27 06:28] LABS: Bedside Glucose 84 mg/dL (74-106)
[2024-09-27 07:10] VITALS: O2SAT 96
[2024-09-27 08:21] VITALS: BP 113/47; PULSE 56; RESP 16; TEMP 36.6; O2SAT 93
[2024-09-27] MEDS: Tolterodine Tartrate 2 MG CAP.SA PO (08:32)
[2024-09-27] MEDS: Ferrous Sulfate 325 MG Tablet PO (08:32)
[2024-09-27] MEDS: Umeclidinium Bromide Inhaler 1 PUFF INHALATION (08:32)
[2024-09-27] MEDS: Menthol/Lanolin/Calamine/Znox 113 GM Tube 1 APPLIC TOPICAL ×2 (08:32→21:22)
[2024-09-27] MEDS: Insulin Glargine-YFGN 100 UNIT/ML Pen 10 UNIT SC ×2 (08:33→21:23)
[2024-09-27] MEDS: Atorvastatin Calcium 10 MG Tablet 5 MG PO (08:34)
[2024-09-27] MEDS: Magnesium Chloride 64 MG Delay Rel.Tablet 128 MG PO (08:35)
[2024-09-27] MEDS: Nystatin Powder 15gm Bottle 1 APPLIC TOPICAL ×2 (08:35→21:22)
[2024-09-27] MEDS: Senna/Docusate Sodium 1 Tablet 2 TABLET PO (08:36)
[2024-09-27] MEDS: Pantoprazole Sodium 40 MG Tablet PO (08:36)
[2024-09-27] MEDS: Rivaroxaban 15 MG Tablet PO (08:37)
--- NOTE | 2024-09-27 08:43 | NURSING ---
notified dr العلي -pt b/p 113/47- hr 56- dr brenner to hold metoprolol, amlodipine, and lisinipril
[2024-09-27 11:51] LABS: Bedside Glucose 246 mg/dL (74-106)
[2024-09-27] MEDS: Insulin Lispro 100 UNIT/ML INSULN.PEN 7 UNIT SC ×2 (12:09→16:34)
[2024-09-27 16:51] LABS: Bedside Glucose 179 mg/dL (74-106)
[2024-09-27 21:30] VITALS: PULSE 84; RESP 16; O2SAT 95
[2024-09-27 21:39] LABS: Bedside Glucose 190 mg/dL (74-106)
--- NOTE | 2024-09-28 03:29 | NURSING ---
C/o vaginal itch, written communication left for Dr. Barrett review in AM
[2024-09-28] MEDS: Levothyroxine 100 MCG Tablet PO (05:39)
[2024-09-28 05:46] LABS: Absolute Lymphocyte Count 2.65 X10^3/uL (0.83-4.51); Absolute Neutrophil Count 5.3 X10^3/uL (2.0-7.7); Basophil# 0.08 X10^3/uL; Basophil% 0.9 % (0-1); Eosinophils% 5.3 % (0-5); Hematocrit 27.7 % (37-47); Hemoglobin 8.6 g/dL (12.0-15.0); Lymphocyte # 2.65 X10^3/ul (0.83-4.51); Lymphocyte % 28.3 % (19-41); Mean Corpuscular Hgb 25.8 pg (27.0-32.0); Mean Corpuscular Volume 83.2 fL (81-99); Mean Platelet Vol. 10.4 fl (6.2-12.0); Monocyte# 0.76 X10^3/uL; Monocyte% 8.1 % (0-10); NRBC Flagged by Analyzer 0 % (0-5); Neutrophil # 5.31 X10^3/uL (2.7-7.7); Neutrophil % 56.9 % (47-70); Platelet Count 513 K/mm3 (150-450); RBC Distribution Width CV 18.8 % (11.6-14.6); RBC Distribution Width SD 54.4 fl (35.1-43.9); Red Blood Count 3.33 M/mm3 (4.2-5.4); White Blood Count 9.4 K/mm3 (4.4-11.0)
[2024-09-28 06:17] LABS: Bedside Glucose 75 mg/dL (74-106)
[2024-09-28 06:23] LABS: AST(SGOT) 11 U/L (15-37); Alanine Aminotransfer ALT/SGPT 12 U/L (13-56); Albumin, Serum 2.5 g/dL (3.2-5.0); Alkaline Phosphatase 78 U/L (45-117); Anion Gap 5 (5-15); BUN 27 mg/dL (7-18); BUN/Creat Ratio 22.9 RATIO (10-20); Calcium,Total 8.7 mg/dL (8.5-10.1); Chloride 109 mmol/L (98-107); Creatinine, Serum 1.18 mg/dL (0.55-1.02); EST Glomerular Filtration Rate 47 mL/min (>60); Est Glom Filt Rate - Afr Amer 57 mL/min (>60); Estimated Creatinine Clearance 38.16 ml/min; Glucose 82 mg/dL (74-106); Potassium 4.4 mmol/L (3.5-5.1); Protein, Total 6.5 g/dL (6.4-8.2); Sodium Level 140 mmol/L (136-145)
[2024-09-28] MEDS: Ferrous Sulfate 325 MG Tablet PO (08:35)
[2024-09-28] MEDS: Menthol/Lanolin/Calamine/Znox 113 GM Tube 1 APPLIC TOPICAL ×2 (08:35→22:02)
[2024-09-28] MEDS: Magnesium Chloride 64 MG Delay Rel.Tablet 128 MG PO (08:36)
[2024-09-28] MEDS: Cholecalciferol (VIT D3) 25 MCG TABLET (1,000 UNITS) 100 MCG PO (08:37)
[2024-09-28] MEDS: Lisinopril 10 MG Tablet PO (08:37)
[2024-09-28] MEDS: Senna/Docusate Sodium 1 Tablet 2 TABLET PO ×2 (08:37→22:01)
[2024-09-28] MEDS: Rivaroxaban 15 MG Tablet PO (08:37)
[2024-09-28 08:38] VITALS: PULSE 72
[2024-09-28] MEDS: Metoprolol(XL)Succ 25 MG Tablet PO (08:38)
[2024-09-28] MEDS: Pantoprazole Sodium 40 MG Tablet PO (08:38)
[2024-09-28] MEDS: Atorvastatin Calcium 10 MG Tablet 5 MG PO (08:38)
[2024-09-28] MEDS: Tolterodine Tartrate 2 MG CAP.SA PO (08:39)
[2024-09-28] MEDS: Umeclidinium Bromide Inhaler 1 PUFF INHALATION (08:39)
[2024-09-28] MEDS: Nystatin Powder 15gm Bottle 1 APPLIC TOPICAL ×2 (08:40→22:01)
[2024-09-28] MEDS: Insulin Glargine-YFGN 100 UNIT/ML Pen 10 UNIT SC ×2 (08:40→22:02)
[2024-09-28] MEDS: Insulin Lispro 100 UNIT/ML INSULN.PEN 7 UNIT SC ×2 (08:41→11:58)
[2024-09-28] MEDS: FLUCONAZOLE 150 MG TABLET PO (11:57)
[2024-09-28 12:11] LABS: Bedside Glucose 145 mg/dL (74-106)
[2024-09-28 16:00] VITALS: BP 128/58; PULSE 74; RESP 18; TEMP 36.3; O2SAT 97
[2024-09-28 17:28] LABS: Glucose 66 mg/dL (74-106)
[2024-09-28] MEDS: Electrolyte Solution/Peg's 4000 ML PO (18:05)
[2024-09-28] MEDS: Senna Tablet 2 TABLET PO (18:08)
[2024-09-28 18:53] LABS: Bedside Glucose 144 mg/dL (74-106)
[2024-09-28 19:47] LABS: Bedside Glucose 180 mg/dL (74-106)
[2024-09-28 21:34] LABS: Bedside Glucose 167 mg/dL (74-106)
--- NOTE | 2024-09-29 00:47 | NURSING ---
Patient noncompliant with bowel prep for colonoscopy. Dayshift CLAMP FORKLIFT OPERATOR and this nurse have educated patient multiple times on importance of completing bowel prep for procedure to be done tomorrow. Patient states she is unable to drink anymore. This nurse was able to encourage patient to take a few more gulps of golytely bowel prep. Patient agitated and states to staff, I want to sleep. This nurse will update Dr. Valentin in the AM.
[2024-09-29] MEDS: Levothyroxine 100 MCG Tablet PO (06:17)
[2024-09-29 06:40] LABS: Bedside Glucose 70 mg/dL (74-106)
[2024-09-29 07:14] LABS: Bedside Glucose 137 mg/dL (74-106)
[2024-09-29] MEDS: Rivaroxaban 15 MG Tablet PO (10:02)
[2024-09-29] MEDS: Atorvastatin Calcium 10 MG Tablet 5 MG PO (10:02)
[2024-09-29] MEDS: Senna/Docusate Sodium 1 Tablet 2 TABLET PO (10:02)
[2024-09-29] MEDS: Tolterodine Tartrate 2 MG CAP.SA PO (10:02)
[2024-09-29] MEDS: Lisinopril 10 MG Tablet PO (10:02)
[2024-09-29 10:03] VITALS: BP 113/51; PULSE 84
[2024-09-29] MEDS: Metoprolol(XL)Succ 25 MG Tablet PO (10:03)
[2024-09-29] MEDS: Ferrous Sulfate 325 MG Tablet PO (10:03)
[2024-09-29] MEDS: Pantoprazole Sodium 40 MG Tablet PO (10:03)
[2024-09-29] MEDS: Magnesium Chloride 64 MG Delay Rel.Tablet 128 MG PO (10:03)
[2024-09-29] MEDS: Menthol/Lanolin/Calamine/Znox 113 GM Tube 1 APPLIC TOPICAL ×2 (10:03→20:40)
[2024-09-29] MEDS: Nystatin Powder 15gm Bottle 1 APPLIC TOPICAL ×2 (10:03→20:41)
[2024-09-29] MEDS: Umeclidinium Bromide Inhaler 1 PUFF INHALATION (10:04)
[2024-09-29 11:43] LABS: Bedside Glucose 243 mg/dL (74-106)
[2024-09-29] MEDS: Insulin Lispro 100 UNIT/ML INSULN.PEN 7 UNIT SC ×2 (12:04→18:30)
--- NOTE | 2024-09-29 12:53 | NURSING ---
Dr. Valentin updated on pt refusing to do bowel prep for Colonoscopy. This nurse educated pt of importance of doing the bowel prep and having the procedure completed. Pt stated I am not doing the bowel prep or the Colonoscopy.
[2024-09-29 13:29] LABS: Hematocrit 33.8 % (37-47); Hemoglobin 10.1 g/dL (12.0-15.0)
--- NOTE | 2024-09-29 13:56 | NURSING ---
Midline Removed per order. Pt tolerated well.
[2024-09-29 16:00] VITALS: BP 104/50; PULSE 85; RESP 16; TEMP 36.6; O2SAT 97
[2024-09-29 17:06] LABS: Bedside Glucose 223 mg/dL (74-106)
[2024-09-29] MEDS: Insulin Glargine-YFGN 100 UNIT/ML Pen 10 UNIT SC (20:41)
[2024-09-29 22:04] LABS: Bedside Glucose 267 mg/dL (74-106)
[2024-09-30] MEDS: Levothyroxine 150 MCG Tablet PO (05:33)
[2024-09-30 06:56] LABS: Bedside Glucose 103 mg/dL (74-106)
[2024-09-30] MEDS: Cholecalciferol (VIT D3) 25 MCG TABLET (1,000 UNITS) 100 MCG PO (08:34)
[2024-09-30] MEDS: Rivaroxaban 15 MG Tablet PO (08:34)
[2024-09-30] MEDS: Umeclidinium Bromide Inhaler 1 PUFF INHALATION (08:34)
[2024-09-30 08:35] VITALS: BP 107/47; PULSE 98
[2024-09-30] MEDS: Magnesium Chloride 64 MG Delay Rel.Tablet 128 MG PO (08:35)
[2024-09-30] MEDS: Metoprolol(XL)Succ 25 MG Tablet PO (08:35)
[2024-09-30] MEDS: Tolterodine Tartrate 2 MG CAP.SA PO (08:35)
[2024-09-30] MEDS: Ferrous Sulfate 325 MG Tablet PO (08:35)
[2024-09-30] MEDS: Pantoprazole Sodium 40 MG Tablet PO (08:35)
[2024-09-30] MEDS: Insulin Glargine-YFGN 100 UNIT/ML Pen 10 UNIT SC ×2 (08:35→20:38)
[2024-09-30] MEDS: Atorvastatin Calcium 10 MG Tablet 5 MG PO (08:35)
[2024-09-30] MEDS: Lisinopril 10 MG Tablet PO (08:36)
[2024-09-30] MEDS: Menthol/Lanolin/Calamine/Znox 113 GM Tube 1 APPLIC TOPICAL ×2 (08:36→20:39)
[2024-09-30] MEDS: Nystatin Powder 15gm Bottle 1 APPLIC TOPICAL ×2 (08:36→20:39)
[2024-09-30 11:51] LABS: Bedside Glucose 380 mg/dL (74-106)
[2024-09-30] MEDS: Insulin Lispro 100 UNIT/ML INSULN.PEN 7 UNIT SC ×2 (11:59→17:56)
[2024-09-30 13:32] LABS: Bedside Glucose 39 mg/dL (74-106)
[2024-09-30 13:32] LABS: Bedside Glucose 43 mg/dL (74-106)
[2024-09-30 13:32] LABS: Bedside Glucose 37 mg/dL (74-106)
[2024-09-30 13:32] LABS: Bedside Glucose 52 mg/dL (74-106)
[2024-09-30 13:36] VITALS: BP 101/41; PULSE 81; RESP 18; TEMP 36.7; O2SAT 93
[2024-09-30 14:02] LABS: Bedside Glucose 325 mg/dL (74-106)
[2024-09-30 16:49] LABS: Bedside Glucose 223 mg/dL (74-106)
[2024-09-30 20:39] LABS: Bedside Glucose 100 mg/dL (74-106)
--- NOTE | 2024-09-30 21:13 | NURSING ---
Per patient's request, HS medications given early.
[2024-10-01] MEDS: Levothyroxine 100 MCG Tablet PO (05:04)
[2024-10-01 06:44] LABS: Bedside Glucose 84 mg/dL (74-106)
[2024-10-01 10:06] VITALS: BP 111/44; PULSE 77; RESP 16; TEMP 36.3; O2SAT 94
[2024-10-01] MEDS: Tolterodine Tartrate 2 MG CAP.SA PO (10:11)
[2024-10-01] MEDS: Atorvastatin Calcium 10 MG Tablet 5 MG PO (10:11)
[2024-10-01] MEDS: FLUCONAZOLE 150 MG TABLET PO (10:11)
[2024-10-01] MEDS: Ferrous Sulfate 325 MG Tablet PO (10:11)
[2024-10-01 10:12] VITALS: PULSE 77
[2024-10-01] MEDS: Rivaroxaban 15 MG Tablet PO (10:12)
[2024-10-01] MEDS: Metoprolol(XL)Succ 25 MG Tablet PO (10:12)
[2024-10-01] MEDS: Magnesium Chloride 64 MG Delay Rel.Tablet 128 MG PO (10:12)
[2024-10-01] MEDS: Pantoprazole Sodium 40 MG Tablet PO (10:12)
[2024-10-01] MEDS: Senna/Docusate Sodium 1 Tablet 2 TABLET PO (10:12)
[2024-10-01] MEDS: Lisinopril 10 MG Tablet PO (10:12)
[2024-10-01] MEDS: Nystatin Powder 15gm Bottle 1 APPLIC TOPICAL ×2 (10:13→22:51)
[2024-10-01] MEDS: Menthol/Lanolin/Calamine/Znox 113 GM Tube 1 APPLIC TOPICAL ×2 (10:13→22:52)
[2024-10-01] MEDS: Insulin Lispro 100 UNIT/ML INSULN.PEN 7 UNIT SC ×2 (11:51→18:01)
[2024-10-01] MEDS: Umeclidinium Bromide Inhaler 1 PUFF INHALATION (11:54)
[2024-10-01 11:55] LABS: Bedside Glucose 132 mg/dL (74-106)
[2024-10-01 12:53] VITALS: PULSE 84; RESP 14; O2SAT 94
[2024-10-01 14:42] VITALS: O2SAT 94
[2024-10-01 17:28] LABS: Bedside Glucose 152 mg/dL (74-106)
[2024-10-01 22:47] LABS: Bedside Glucose 155 mg/dL (74-106)
[2024-10-01] MEDS: Insulin Glargine-YFGN 100 UNIT/ML Pen 10 UNIT SC (22:50)
[2024-10-02] MEDS: Levothyroxine 100 MCG Tablet PO (05:37)
[2024-10-02 06:31] LABS: Bedside Glucose 210 mg/dL (74-106)
[2024-10-02 07:20] VITALS: O2SAT 93
[2024-10-02 07:58] VITALS: BP 149/66; PULSE 92; RESP 16; TEMP 36.9; O2SAT 92
[2024-10-02] MEDS: Tolterodine Tartrate 2 MG CAP.SA PO (08:02)
[2024-10-02] MEDS: Ferrous Sulfate 325 MG Tablet PO (08:02)
[2024-10-02] MEDS: Insulin Lispro 100 UNIT/ML INSULN.PEN 7 UNIT SC ×3 (08:03→17:34)
[2024-10-02] MEDS: Menthol/Lanolin/Calamine/Znox 113 GM Tube 1 APPLIC TOPICAL ×2 (08:04→22:01)
[2024-10-02] MEDS: Umeclidinium Bromide Inhaler 1 PUFF INHALATION (08:04)
[2024-10-02] MEDS: Atorvastatin Calcium 10 MG Tablet 5 MG PO (08:05)
[2024-10-02 08:06] VITALS: PULSE 92
[2024-10-02] MEDS: Magnesium Chloride 64 MG Delay Rel.Tablet 128 MG PO (08:06)
[2024-10-02] MEDS: Rivaroxaban 15 MG Tablet PO (08:06)
[2024-10-02] MEDS: Senna/Docusate Sodium 1 Tablet 2 TABLET PO ×2 (08:06→22:01)
[2024-10-02] MEDS: Nystatin Powder 15gm Bottle 1 APPLIC TOPICAL ×2 (08:06→22:00)
[2024-10-02] MEDS: Lisinopril 10 MG Tablet PO (08:06)
[2024-10-02] MEDS: Pantoprazole Sodium 40 MG Tablet PO (08:06)
[2024-10-02] MEDS: Metoprolol(XL)Succ 25 MG Tablet PO (08:06)
[2024-10-02] MEDS: Cholecalciferol (VIT D3) 25 MCG TABLET (1,000 UNITS) 100 MCG PO (08:06)
[2024-10-02 08:34] VITALS: O2SAT 94
[2024-10-02 09:58] VITALS: PULSE 76; RESP 16; O2SAT 95
[2024-10-02 11:28] LABS: Bedside Glucose 227 mg/dL (74-106)
--- NOTE | 2024-10-02 14:12 | CASEMGMT ---
Social Work IDT discussed patient's progress in [facility]. Pt is inconsistent with LOF, and is still recommending SNF at DC. SW spoke with SO. SO remains agreeable to SNF and reiterated request for referral to [facility] and [facility]. SW educated to intermediate care at SNF and room and board will be an OOP cost, with part B therapies billed to pt's insurance. SO stated money is not an issue. SW placed referrals to SNFs. DC date will be set. SUPRIYA HopsonW
[2024-10-02 16:38] VITALS: BMI 27.8
[2024-10-02 17:13] LABS: Bedside Glucose 294 mg/dL (74-106)
[2024-10-02 21:46] LABS: Bedside Glucose 281 mg/dL (74-106)
[2024-10-02] MEDS: Insulin Glargine-YFGN 100 UNIT/ML Pen 10 UNIT SC (22:02)
[2024-10-03] MEDS: Levothyroxine 100 MCG Tablet PO (05:18)
[2024-10-03 06:31] LABS: Bedside Glucose 234 mg/dL (74-106)
[2024-10-03 07:56] VITALS: BP 138/56; PULSE 70
[2024-10-03] MEDS: Metoprolol(XL)Succ 25 MG Tablet PO (07:56)
[2024-10-03] MEDS: Insulin Lispro 100 UNIT/ML INSULN.PEN 7 UNIT SC (07:57)
[2024-10-03] MEDS: Pantoprazole Sodium 40 MG Tablet PO (07:58)
[2024-10-03] MEDS: Ferrous Sulfate 325 MG Tablet PO (07:58)
[2024-10-03] MEDS: Tolterodine Tartrate 2 MG CAP.SA PO (07:58)
[2024-10-03] MEDS: Atorvastatin Calcium 10 MG Tablet 5 MG PO (07:58)
[2024-10-03] MEDS: Rivaroxaban 15 MG Tablet PO (07:58)
[2024-10-03] MEDS: Magnesium Chloride 64 MG Delay Rel.Tablet 128 MG PO (07:58)
[2024-10-03] MEDS: Senna/Docusate Sodium 1 Tablet 2 TABLET PO (07:58)
[2024-10-03] MEDS: Nystatin Powder 15gm Bottle 1 APPLIC TOPICAL ×2 (07:58→20:49)
[2024-10-03] MEDS: Menthol/Lanolin/Calamine/Znox 113 GM Tube 1 APPLIC TOPICAL ×2 (07:59→20:49)
[2024-10-03 08:00] VITALS: O2SAT 92
[2024-10-03] MEDS: Lisinopril 10 MG Tablet PO (08:00)
[2024-10-03 09:40] VITALS: O2SAT 95
[2024-10-03] MEDS: Umeclidinium Bromide Inhaler 1 PUFF INHALATION (10:15)
[2024-10-03 11:46] LABS: Bedside Glucose 265 mg/dL (74-106)
[2024-10-03] MEDS: Insulin Lispro 100 UNIT/ML INSULN.PEN SC ×2 (12:06→17:37)
--- NOTE | 2024-10-03 12:11 | CASEMGMT ---
Social Work SW followed up with [facility] (left VM) and [facility] (messaged via [facility]Port) to inquire about acceptance/denial. Michell Lopez, RECORD TABULATING CLERK LAST CHALKER
[2024-10-03 16:00] VITALS: BP 105/42; PULSE 79; RESP 22; TEMP 36.5; O2SAT 96
[2024-10-03 16:31] LABS: Bedside Glucose 241 mg/dL (74-106)
[2024-10-03 20:54] VITALS: RESP 15; O2SAT 94
[2024-10-03] MEDS: Insulin Glargine-YFGN 100 UNIT/ML Pen 15 UNIT SC (21:01)
[2024-10-03 21:19] LABS: Bedside Glucose 258 mg/dL (74-106)
[2024-10-04 06:10] LABS: Bedside Glucose 210 mg/dL (74-106)
[2024-10-04] MEDS: Levothyroxine 100 MCG Tablet PO (06:11)
[2024-10-04 08:37] VITALS: BP 145/57; PULSE 85; RESP 16; TEMP 36.3; O2SAT 94
[2024-10-04 08:41] VITALS: PULSE 85
[2024-10-04] MEDS: Metoprolol(XL)Succ 25 MG Tablet PO (08:41)
[2024-10-04] MEDS: Lisinopril 10 MG Tablet PO (08:41)
[2024-10-04] MEDS: Umeclidinium Bromide Inhaler 1 PUFF INHALATION (08:41)
[2024-10-04] MEDS: Cholecalciferol (VIT D3) 25 MCG TABLET (1,000 UNITS) 100 MCG PO (08:41)
[2024-10-04] MEDS: Tolterodine Tartrate 2 MG CAP.SA PO (08:41)
[2024-10-04] MEDS: Ferrous Sulfate 325 MG Tablet PO (08:41)
[2024-10-04] MEDS: FLUCONAZOLE 150 MG TABLET PO (08:41)
[2024-10-04] MEDS: Menthol/Lanolin/Calamine/Znox 113 GM Tube 1 APPLIC TOPICAL ×2 (08:41→21:51)
[2024-10-04] MEDS: Magnesium Chloride 64 MG Delay Rel.Tablet 128 MG PO (08:42)
[2024-10-04] MEDS: Senna/Docusate Sodium 1 Tablet 2 TABLET PO (08:42)
[2024-10-04] MEDS: Atorvastatin Calcium 10 MG Tablet 5 MG PO (08:42)
[2024-10-04] MEDS: Pantoprazole Sodium 40 MG Tablet PO (08:42)
[2024-10-04] MEDS: Insulin Lispro 100 UNIT/ML INSULN.PEN 7 UNIT SC ×3 (08:43→17:16)
[2024-10-04] MEDS: Nystatin Powder 15gm Bottle 1 APPLIC TOPICAL ×2 (08:44→21:52)
--- NOTE | 2024-10-04 08:49 | NURSING ---
entered room to admin pills, pt noted to have oxygen off, sat 92% on room air, reapplied but then removed again just before this nurse started to leave room. reapplied. pt does not even realize she is doing this.
[2024-10-04] MEDS: Rivaroxaban 15 MG Tablet PO (09:10)
[2024-10-04 11:17] VITALS: PULSE 61; RESP 16; O2SAT 99
[2024-10-04 11:46] LABS: Bedside Glucose 142 mg/dL (74-106)
[2024-10-04 17:31] LABS: Bedside Glucose 232 mg/dL (74-106)
--- NOTE | 2024-10-04 19:10 | PCM.DC.SUM ---
Providers Date of Admission: 09/13/24 Primary Care Physician: Dr. Shena Jeffers DO Consultations 09/13/24 19:04 Consult: Infectious Disease Routine Consulting Provider: Fracisco Jeffers Reason for Consult: sepsis, UTI EMERGENT Consult: No Notified: Yes Date Notified: 09/13/24 Time Notified: 19:04 Method of Notification: Text 09/14/24 18:42 Consult: Gastroenterology Routine Consulting Provider: [facility] Reason for Consult: Positive Occult Stool EMERGENT Consult: No Notified: Yes Date Notified: 09/14/24 Time Notified: 18:42 Method of Notification: Text Reason For Visit: SEPSIS, UTI Diagnosis Discharge Diagnosis (1) Acute renal failure: Status: Acute Code(s): N17.9 - Acute kidney failure, unspecified Qualifiers: Acute renal failure type: unspecified Qualified Code(s): N17.9 - Acute kidney failure, unspecified (2) Vulvovaginitis due to Evette: Status: Acute Code(s): B37.31 - Acute candidiasis of vulva and vagina (3) Hx of iron deficiency: Status: Acute Code(s): Z86.39 - Personal history of other endocrine, nutritional and metabolic disease (4) Alzheimer disease: Status: Acute Code(s): G30.9 - Alzheimer's disease, unspecified; F02.80 - Dementia in other diseases classified elsewhere, unspecified severity, without behavioral disturbance, psychotic disturbance, mood disturbance, and anxiety (5) Iron deficiency anemia: Status: Acute Code(s): D50.9 - Iron deficiency anemia, unspecified Qualifiers: Iron deficiency anemia type: chronic blood loss Qualified Code(s): D50.0 - Iron deficiency anemia secondary to blood loss (chronic) (6) UTI (urinary tract infection): Status: Inactive Code(s): N39.0 - Urinary tract infection, site not specified Qualifiers: Urinary tract infection type: acute pyelonephritis Qualified Code(s): N10 - Acute pyelonephritis (7) Bacteremia due to Gram-negative bacteria: Status: Inactive Code(s): R78.81 - Bacteremia Plan 79 year old female with below past medical history significant for recurrent UTI, hospitalized for sepsis 2/2 UTI, complicated by esbl K. pneumoniae bacteremia, acute kidney injury, hyponatremia, admitted to TCU with debility, here for rehabilitation, strengthening, intravenous antibiotics, prior to discharge home with significant other. Debility - PT/OT. Pain - Tylenol 1000mg q6 prn pain (1-10). Bowel - senna/colace 2 tablets bid, Magnesium citrate 300mL po daily prn. Adult immunization - Administer pneumonia vaccine, covid vaccine, flu vaccine as appropriate. DVT prophylaxis - on Xarelto. COPD - Incruse 1 puff daily, Albuterol 2.5mg neb q2h prn. Hypertension - Metoprolol succinate 25mg daily, Lisinopril 10mg daily, Amlodipine 5mg daily. Hyperlipidemia - Atorvastatin 5mg daily. Vitamin D deficiency - D3 100mcg daily. ESBL K. Pneumoniae UTI/bacteremia/sepsis - Ertapenem 1gm iv q24 thru 09/20/2024. Iron deficiency anemia - Ferrous sulfate 325mg daily. Nutrition - Glucerna Shake 120mL 4x/day. Diabetes - Glargine 10 units sc daily, Lispro 5 units tidcm. Hypothyroidism - Levothyroxine 100mcg 6 days per week, 150mcg 1 day per week. Hypomagnesemia - Magnesium chloride 128mg daily. Insomnia - Melatonin 3mg qhs prn. Skin irritation - Calmoseptine topical 4x/day. GERD - Pantoprazole 40mg daily. Atrial fibrillation - Metoprolol succinate 25mg daily, Xarelto 15mg daily. Overactive bladder - Tolterodine 2mg daily. Alzheimer Disease - Defer to PCP. Medications at Discharge Home Medications cholecalciferol (vitamin D3) 50 mcg (2,000 unit) tablet (D3 DOTS) 4,000 unit PO .COMPLEX vitamin 06/29/23 magnesium 200 mg tablet 400 mg PO DAILY supplement 06/29/23 tiotropium bromide 2.5 mcg/actuation mist for inhalation (Spiriva Respimat) 2 inh inhalation DAILY COPD 06/29/24 albuterol sulfate 2.5 mg/3 mL (0.083 %) solution for nebulization 2.5 mg (3 mL) inhalation Q2H PRN PRN Dyspnea, wheezing #0 mL 07/02/24 ferrous sulfate 325 mg (65 mg iron) tablet (FeroSul) 325 mg PO DAILYCM supplement #0 tabs 07/02/24 levothyroxine 100 mcg tablet 100 mcg PO MoTuWeThFrSa@0600 thyroid #0 tabs 07/02/24 levothyroxine 150 mcg tablet 150 mcg PO Alston@0600 HYPOTHYROIDISM #0 tabs 07/02/24 melatonin 3 mg tablet 3 mg PO QHS PRN PRN Insomnia #0 tabs 07/02/24 menthol 0.44 %-zinc oxide 20.6 % topical ointment (Calmoseptine) 1 applic topical 4X/DAY REDNESS #0 grams 07/02/24 metoprolol succinate 25 mg tablet,extended release 24 hr 25 mg PO DAILY HEART RATE #0 tabs 07/02/24 tolterodine 2 mg capsule,extended release 24 hr 2 mg PO DAILY bladder #0 caps 07/02/24 walker (Ultra-Light Rollator misc) #1 ea 09/05/24 pantoprazole 40 mg tablet,delayed release 40 mg PO DAILY GERD 09/10/24 simvastatin 10 mg tablet 10 mg PO DAILY HIGH CHOLESTEROL 09/10/24 amlodipine 5 mg-benazepril 10 mg capsule 1 cap PO DAILY blood pressure 30 days #0 caps 09/13/24 sennosides 8.6 mg-docusate sodium 50 mg tablet (Stimulant Laxative Plus) 2 tab PO BID constipation #0 tabs 09/13/24 acetaminophen 500 mg tablet 1,000 mg (2 x 500 mg) PO Q6H PRN PRN Pain Score 1-10 #0 tabs 10/04/24 insulin lispro 100 unit/mL subcutaneous pen (Humalog KwikPen (U-100) Insulin) 7 unit (0.07 mL) subcut TIDAC #0 mL 10/04/24 lisinopril 10 mg tablet 10 mg PO DAILY #0 tabs 10/04/24 nystatin 100,000 unit/gram topical powder (Nyamyc) 1 applic topical BID #0 grams 10/04/24 rivaroxaban 15 mg tablet (Xarelto) 15 mg PO DAILY #0 tabs 10/04/24 Hospital Course Operations None Procedures EGD Summary of Care Provided Minutes Spent on Discharge: 35 Hospital Course: 79 year old female with below past medical history significant for recurrent UTI, hospitalized for sepsis 2/2 UTI, complicated by esbl K. pneumoniae bacteremia, acute kidney injury, hyponatremia, admitted to TCU with debility, here for rehabilitation, strengthening, intravenous antibiotics, prior to discharge home with significant other. 09/18/2024 Dr. 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 Dr. Valentin recommended colonoscopy, but resident declined. Discharge to [facility] or [facility] 10/09/2024, intermediate, private pay, part B therapies. Physical Exam Const alert General Appearance: cooperative HEENT normocephalic Eyes PERRL and EOMs intact bilaterally Neck supple, no JVD and no carotid bruits Resp normal respiratory effort, normal air movement and clear to auscultation bilaterally Cardio regular rate and regular rhythm GI normal to inspection, nondistended, normoactive bowel sounds, non-tender and non-distended Extremity normal capillary refill General Extremity: Negative for edema Skin no rashes or lesions noted General Skin Exam: no breakdown Psych affect normal Appearance: appropriate Weight / BMI Weight Weight: 75.75 kg Body Mass Index (BMI) 27.8 ABG / Lab / Microbiology Data 09/29/24 13:20 09/28/24 16:39 Laboratory: Laboratory Results - last 24 hr 10/03/24 20:51: POC Glucose 258 H 10/04/24 05:40: POC Glucose 210 H 10/04/24 11:12: POC Glucose 142 H 10/04/24 16:25: POC Glucose 232 H Microbiology: Microbiology 10/01/24 05:30 Nasal Secretion SARS-CoV-2 Antigen (Rapid) - Final 09/24/24 05:36 Nasal Secretion SARS-CoV-2 Antigen (Rapid) - Final 09/17/24 14:50 Urine, Catheterized Urine Culture - Final Culture exhibits no growth. 09/14/24 11:10 Stool Stool Occult Blood (VENKAT) - Final Occult Blood Positive 09/14/24 05:35 Nasal Secretion SARS-CoV-2 Antigen (Rapid) - Final D/C Instructions Discharge Diet: No restrictions Discharge Activity: Return to Normal Activity, May Shower and Use Walker Weight Bearing Status: Weight bearing as tolerated Call your doctor if you observe: Fever of 101 or Higher, Inability to urinate, Inability to have a bowel movement, Shortness of breath, Dizziness, Fainting spells, Swelling in the ankles, Chest pain and Uncontrolled pain DC O2, CPAP, BIPAP Needs Additional Home O2 Discharge instructions: No DC home with Oxygen: No Additional Instructions: Discharge to [facility] or [facility] 10/09/2024, intermediate, private pay, part B therapies. Meaningful Use Info Meaningful Use Meaningful Use Diagnoses (Choose all that apply): None applicable Ischemic Stroke Statin Dosing Therapy Reference: STATIN DOSE THERAPY REFERENCE: * Patients > 75 years receive moderate or high dose statin therapy. * Patients 75 years or YOUNGER should receive HIGH intensity statin dose unless contraindicated. You will be required to document reason for non-treatment if statin daily dose does not meet guidelines. HIGH DOSE STATIN THERAPY DAILY Atorvastatin > than or = to 40 mg Rosuvastatin > than or = to 20 mg Amlodipine + Atorvastatin > than or = to 2.5/40 mg Ezetimibe + Simvastatin 10/80 mg Simvastatin 80mg Discharge Plan Admission Admit Date/Time: 09/13/24 18:40 Primary Reason for Your Visit: Debility. Attending Provider: Camilo Barrett Chi Primary Care Provider: Shena Jeffers Consulting Providers: Fracisco Jeffers Instructions Additional Instructions / Restrictions: Discharge to [facility] or [facility] 10/09/2024, intermediate, private pay, part B therapies. Discharge Orders/Prescriptions Prescriptions: New acetaminophen 500 mg Tablet 1,000 mg PO Q6H PRN PRN (Reason: Pain Score 1-10) Qty: 0 0RF insulin lispro [Humalog KwikPen Insulin] 100 unit/mL Insulin Pen 7 unit subcut TIDAC Qty: 0 0RF lisinopril 10 mg Tablet 10 mg PO DAILY Qty: 0 0RF nystatin [Nyamyc] 100,000 unit/gram Powder 1 applic topical BID Qty: 0 0RF Protocol: *Topical Application Instructions APPLICATION INSTRUCTIONS: groin Xarelto 15 mg Tablet 15 mg PO DAILY Qty: 0 0RF Continued magnesium 200 mg tablet 400 mg PO DAILY cholecalciferol (vitamin D3) [D3 DOTS] 50 mcg (2,000 unit) tablet 4,000 unit PO .COMPLEX Rx Instructions: 4,000 units orally every other day; Spiriva Respimat 2.5 mcg/actuation mist 2 inh INHALATION DAILY albuterol sulfate 2.5 mg /3 mL (0.083 %) Solution For Nebulization 2.5 mg inhalation Q2H PRN PRN (Reason: Dyspnea, wheezing) Qty: 0 0RF ferrous sulfate [FeroSul] 325 mg (65 mg iron) Tablet 325 mg PO DAILYCM Qty: 0 0RF levothyroxine 100 mcg Tablet 100 mcg PO MoTuWeThFrSa@0600 Qty: 0 0RF levothyroxine 150 mcg Tablet 150 mcg PO Alston@0600 Qty: 0 0RF melatonin 3 mg Tablet 3 mg PO QHS PRN PRN (Reason: Insomnia) Qty: 0 0RF menthol-zinc oxide [Calmoseptine] 0.44-20.6 % Ointment 1 applic topical 4X/DAY Qty: 0 0RF Protocol: *Topical Application Instructions APPLICATION INSTRUCTIONS: apply to affected region tolterodine 2 mg Capsule,Extended Release 24hr 2 mg PO DAILY Qty: 0 0RF metoprolol succinate 25 mg Tablet Extended Release 24 Hr 25 mg PO DAILY Qty: 0 0RF Patient Comments: HAS NOT STARTED YET 09/10 simvastatin 10 mg tablet 10 mg PO DAILY pantoprazole 40 mg tablet,delayed release (DR/EC) 40 mg PO DAILY sennosides-docusate sodium [Stimulant Laxative Plus] 8.6-50 mg Tablet 2 tab PO BID Qty: 0 0RF amlodipine-benazepril 5-10 mg capsule 1 cap PO DAILY 30 Days Qty: 0 0RF Rx Instructions: Hold for SBP less than 130 mmHg Discontinued iron, carbonyl 45 mg tablet 45 mg PO DAILY Qty: 30 0RF Patient Comments: TAKES A 65MG TABLET BECAUSE THEY CAN NOT FIND A 45MG AT STORE acetaminophen 325 mg Tablet 650 mg PO Q4H PRN PRN (Reason: Fever, pain 1-08/02) Qty: 0 0RF Glucerna 1.2 Remy 0.06-1.2 gram-kcal/mL Liquid 120 ml PO 4X/DAY Qty: 0 0RF Xarelto 20 mg Tablet 20 mg PO DAILY Qty: 0 0RF insulin aspart U-100 [Novolog U-100 Insulin aspart] 100 unit/mL solution subcut UD ertapenem 1 gram Recon Soln 1 g IV Q24 7 Days Qty: 7 0RF Rx Instructions: stop date 09/20/24. Dx: esbl bacteremia. Weekly bmp, cbc, and LFT. Fax to [phone]. Routine midline care per protocol. insulin lispro [Humalog KwikPen Insulin] 100 unit/mL Insulin Pen See Protocol subcut ACHS Qty: 0 0RF Protocol: 4. Sliding Scale Insulin High-Med Dosing Condition: 150-199 mg/dl = 2 units Condition: 200-259 mg/dl = 4 units Condition: 260-324 mg/dl = 6 units Condition: 325-374 mg/dl = 8 units Condition: 375-409 mg/dl = 10 units Condition: 410-449 mg/dl = 11 units Condition: Greater than 449 call physician Protocol Text: Suggested for: - Patients on Total Daily Insulin Dose of 56-80 units - Patient who are known to be insulin resistant or septic HIGH MEDIUM DOSING ALGORITHM insulin lispro [Humalog KwikPen Insulin] 100 unit/mL insulin pen 5 unit subcut TIDCM 30 Days Qty: 15 0RF Rx Instructions: Hold if glucose less than 130 mg/dl insulin glargine-yfgn 100 unit/mL (3 mL) Insulin Pen 10 unit subcut DINNER Rx Instructions: hold if glucose < 130 No Action (DME) Ultra-Light Rollator Misc See Rx Instructions .Route Qty: 1 0RF Rx Instructions: WITH SEAT Referrals / Follow Up: Shena Jeffers DO [Primary Care Provider] - Disposition Disposition (needs filled in before D/C Order can be placed): [facility] Facility
--- NOTE | 2024-10-04 19:18 | TREXTCAR_ITS ---
Diet Diet Order/Speech Therapy: 09/29/24 08:00 Diet: Carbohydrate Controlled Food consistency:: Regular Liquid Consistency:: Regular/Thin Dietary Modifications:: No Added Salt Routine Orders/Code Status Code Status: DNRCC-A (No intubation.) DC O2, CPAP, BIPAP needs Additional Home O2 Discharge instructions: No Wound(s) Right inner forearm scabs: Wound Type: scab Multiple scabs on top of left foot: Wound Type: scabs Skin tear- left upper chest near clavicle: Wound Type: Skin Tear Dressing Change: DSD L forehead: Wound Type: Laceration Dressing Change: Dry Sterile Dressing Therapies Weight Bearing: Weight bearing as tolerated Extremity Affected:: Bilateral Lower Physical Therapy: Eval and Treat Occupational Therapy: Eval and Treat Speech Therapy: Eval and Treat Problem/Diagnosis (1) Acute renal failure: Status: Acute Code(s): N17.9 - Acute kidney failure, unspecified (2) Vulvovaginitis due to Evette: Status: Acute Code(s): B37.31 - Acute candidiasis of vulva and vagina (3) Hx of iron deficiency: Status: Acute Code(s): Z86.39 - Personal history of other endocrine, nutritional and metabolic disease (4) Alzheimer disease: Status: Acute Code(s): G30.9 - Alzheimer's disease, unspecified; F02.80 - Dementia in other diseases classified elsewhere, unspecified severity, without behavioral disturbance, psychotic disturbance, mood disturbance, and anxiety (5) Iron deficiency anemia: Status: Acute Code(s): D50.9 - Iron deficiency anemia, unspecified (6) UTI (urinary tract infection): Status: Inactive Code(s): N39.0 - Urinary tract infection, site not specified (7) Bacteremia due to Gram-negative bacteria: Status: Inactive Code(s): R78.81 - Bacteremia Plan 79 year old female with below past medical history significant for recurrent UTI, hospitalized for sepsis 2/2 UTI, complicated by esbl K. pneumoniae bacteremia, acute kidney injury, hyponatremia, admitted to TCU with debility, here for rehabilitation, strengthening, intravenous antibiotics, prior to discharge home with significant other. * Debility - PT/OT. * Pain - Tylenol 1000mg q6 prn pain (1-10). * Bowel - senna/colace 2 tablets bid, Magnesium citrate 300mL po daily prn. * Adult immunization - Administer pneumonia vaccine, covid vaccine, flu vaccine as appropriate. * DVT prophylaxis - on Xarelto. * COPD - Incruse 1 puff daily, Albuterol 2.5mg neb q2h prn. * Hypertension - Metoprolol succinate 25mg daily, Lisinopril 10mg daily, Amlodipine 5mg daily. * Hyperlipidemia - Atorvastatin 5mg daily. * Vitamin D deficiency - D3 100mcg daily. * ESBL K. Pneumoniae UTI/bacteremia/sepsis - Ertapenem 1gm iv q24 thru 09/20/2024. * Iron deficiency anemia - Ferrous sulfate 325mg daily. * Nutrition - Glucerna Shake 120mL 4x/day. * Diabetes - Glargine 10 units sc daily, Lispro 5 units tidcm. * Hypothyroidism - Levothyroxine 100mcg 6 days per week, 150mcg 1 day per week. * Hypomagnesemia - Magnesium chloride 128mg daily. * Insomnia - Melatonin 3mg qhs prn. * Skin irritation - Calmoseptine topical 4x/day. * GERD - Pantoprazole 40mg daily. * Atrial fibrillation - Metoprolol succinate 25mg daily, Xarelto 15mg daily. * Overactive bladder - Tolterodine 2mg daily. * Alzheimer Disease - Defer to PCP. Allergies/Procedures Done in Hospital Allergies ciprofloxacin (From Cipro) Allergy (Intermediate, Verified 09/18/24 14:59) hives Sulfa (Sulfonamide Antibiotics) Allergy (Intermediate, Verified 09/18/24 14:59) hives Penicillins Allergy (Verified 09/18/24 14:59) Rash Procedures: EGD Type of Care/Length of Stay Estimated LOS: Convalescent Care Less Than 30 days Type of Care Needed: Intermediate Rehab Potential: Fair Prognosis: Fair Additional Orders/Day of Discharge Day of Discharge: 10/09/24 Dietary and Speech Recommendations Dietitian Recommendations/Changes: Continue CHO Controlled, No Added Salt diet as ordered Speech Linguistic Eval Summary: Pt. was seen in her room. Alert and pleasant. She was noted to not be wearing oxygen as nasal cannula was sitting on her lap. Pt. was compliant with placing nasal cannula back on and rationale explained for same. Pt oriented to self, place, town and month/year. She missed that GAVIN and date by 3 days. Poor concentration noted during evaluation d/t TV being on. ST t urned off TV and pt. was then easily redirected. She was able to recall 0/3 words from delayed recall task. When given 1 minute, she was able to name 2 animals and 0 words that begin with M with max verbal cues. She was able to ID call button independently and was able to name 2 reasons for call light use. Discharge Plan Admission Admit Date/Time: 09/13/24 18:40 Primary Reason for Your Visit: Debility. Attending Provider: Camilo Barrett Chi Primary Care Provider: Shena Jeffers Consulting Providers: Fracisco Jeffers Instructions Additional Instructions / Restrictions: Discharge to [facility] or [facility] 10/09/2024, intermediate, private pay, part B therapies. Discharge Orders/Prescriptions Prescriptions: New acetaminophen 500 mg Tablet 1,000 mg PO Q6H PRN PRN (Reason: Pain Score 1-10) Qty: 0 0RF insulin lispro [Humalog KwikPen Insulin] 100 unit/mL Insulin Pen 7 unit subcut TIDAC Qty: 0 0RF lisinopril 10 mg Tablet 10 mg PO DAILY Qty: 0 0RF nystatin [Nyamyc] 100,000 unit/gram Powder 1 applic topical BID Qty: 0 0RF Protocol: *Topical Application Instructions APPLICATION INSTRUCTIONS: groin Xarelto 15 mg Tablet 15 mg PO DAILY Qty: 0 0RF Continued magnesium 200 mg tablet 400 mg PO DAILY cholecalciferol (vitamin D3) [D3 DOTS] 50 mcg (2,000 unit) tablet 4,000 unit PO .COMPLEX Rx Instructions: 4,000 units orally every other day; Spiriva Respimat 2.5 mcg/actuation mist 2 inh INHALATION DAILY albuterol sulfate 2.5 mg /3 mL (0.083 %) Solution For Nebulization 2.5 mg inhalation Q2H PRN PRN (Reason: Dyspnea, wheezing) Qty: 0 0RF ferrous sulfate [FeroSul] 325 mg (65 mg iron) Tablet 325 mg PO DAILYCM Qty: 0 0RF levothyroxine 100 mcg Tablet 100 mcg PO MoTuWeThFrSa@0600 Qty: 0 0RF levothyroxine 150 mcg Tablet 150 mcg PO Alston@0600 Qty: 0 0RF melatonin 3 mg Tablet 3 mg PO QHS PRN PRN (Reason: Insomnia) Qty: 0 0RF menthol-zinc oxide [Calmoseptine] 0.44-20.6 % Ointment 1 applic topical 4X/DAY Qty: 0 0RF Protocol: *Topical Application Instructions APPLICATION INSTRUCTIONS: apply to affected region tolterodine 2 mg Capsule,Extended Release 24hr 2 mg PO DAILY Qty: 0 0RF metoprolol succinate 25 mg Tablet Extended Release 24 Hr 25 mg PO DAILY Qty: 0 0RF Patient Comments: HAS NOT STARTED YET 09/10 simvastatin 10 mg tablet 10 mg PO DAILY pantoprazole 40 mg tablet,delayed release (DR/EC) 40 mg PO DAILY sennosides-docusate sodium [Stimulant Laxative Plus] 8.6-50 mg Tablet 2 tab PO BID Qty: 0 0RF amlodipine-benazepril 5-10 mg capsule 1 cap PO DAILY 30 Days Qty: 0 0RF Rx Instructions: Hold for SBP less than 130 mmHg Discontinued iron, carbonyl 45 mg tablet 45 mg PO DAILY Qty: 30 0RF Patient Comments: TAKES A 65MG TABLET BECAUSE THEY CAN NOT FIND A 45MG AT STORE acetaminophen 325 mg Tablet 650 mg PO Q4H PRN PRN (Reason: Fever, pain -08/02) Qty: 0 0RF Glucerna 1.2 Remy 0.06-1.2 gram-kcal/mL Liquid 120 ml PO 4X/DAY Qty: 0 0RF Xarelto 20 mg Tablet 20 mg PO DAILY Qty: 0 0RF insulin aspart U-100 [Novolog U-100 Insulin aspart] 100 unit/mL solution subcut UD ertapenem 1 gram Recon Soln 1 g IV Q24 7 Days Qty: 7 0RF Rx Instructions: stop date 09/20/24. Dx: esbl bacteremia. Weekly bmp, cbc, and LFT. Fax to [phone]. Routine midline care per protocol. insulin lispro [Humalog KwikPen Insulin] 100 unit/mL Insulin Pen See Protocol subcut ACHS Qty: 0 0RF Protocol: 4. Sliding Scale Insulin High-Med Dosing Condition: 150-199 mg/dl = 2 units Condition: 200-259 mg/dl = 4 units Condition: 260-324 mg/dl = 6 units Condition: 325-374 mg/dl = 8 units Condition: 375-409 mg/dl = 10 units Condition: 410-449 mg/dl = 11 units Condition: Greater than 449 call physician Protocol Text: Suggested for: - Patients on Total Daily Insulin Dose of 56-80 units - Patient who are known to be insulin resistant or septic HIGH MEDIUM DOSING ALGORITHM insulin lispro [Humalog KwikPen Insulin] 100 unit/mL insulin pen 5 unit subcut TIDCM 30 Days Qty: 15 0RF Rx Instructions: Hold if glucose less than 130 mg/dl insulin glargine-yfgn 100 unit/mL (3 mL) Insulin Pen 10 unit subcut DINNER Rx Instructions: hold if glucose < 130 No Action (DME) Ultra-Light Rollator Misc See Rx Instructions .Route Qty: 1 0RF Rx Instructions: WITH SEAT Referrals / Follow Up: Shena Jeffers DO [Primary Care Provider] - Disposition Disposition (needs filled in before D/C Order can be placed): [facility] (1) Acute renal failure Qualifiers: Acute renal failure type: unspecified Qualified Code(s): N17.9 - Acute kidney failure, unspecified (5) Iron deficiency anemia Qualifiers: Iron deficiency anemia type: chronic blood loss Qualified Code(s): D50.0 - Iron deficiency anemia secondary to blood loss (chronic) (6) UTI (urinary tract infection) Qualifiers: Urinary tract infection type: acute pyelonephritis Qualified Code(s): N10 - Acute pyelonephritis
[2024-10-04 21:30] LABS: Bedside Glucose 303 mg/dL (74-106)
[2024-10-04] MEDS: Insulin Glargine-YFGN 100 UNIT/ML Pen 20 UNIT SC (21:52)
[2024-10-05] MEDS: Levothyroxine 100 MCG Tablet PO (05:08)
[2024-10-05 06:17] LABS: Absolute Lymphocyte Count 2.71 X10^3/uL (0.83-4.51); Absolute Neutrophil Count 3.5 X10^3/uL (2.0-7.7); Basophil# 0.09 X10^3/uL; Basophil% 1.2 % (0-1); Eosinophil# 0.39 X10^3/uL; Eosinophils% 5.2 % (0-5); Hemoglobin 8.6 g/dL (12.0-15.0); Lymphocyte # 2.71 X10^3/ul (0.83-4.51); Lymphocyte % 36.3 % (19-41); Mean Corp Hgb Conc 30.7 g/dL (32-36); Mean Corpuscular Hgb 25.3 pg (27.0-32.0); Mean Corpuscular Volume 82.4 fL (81-99); Mean Platelet Vol. 10.7 fl (6.2-12.0); Monocyte# 0.71 X10^3/uL; Monocyte% 9.5 % (0-10); NRBC Flagged by Analyzer 0 % (0-5); Neutrophil # 3.54 X10^3/uL (2.7-7.7); Neutrophil % 47.4 % (47-70); Platelet Count 424 K/mm3 (150-450); RBC Distribution Width CV 17.4 % (11.6-14.6); RBC Distribution Width SD 51.1 fl (35.1-43.9); White Blood Count 7.5 K/mm3 (4.4-11.0)
[2024-10-05 06:28] LABS: Bedside Glucose 111 mg/dL (74-106)
[2024-10-05 06:40] LABS: AST(SGOT) 7 U/L (15-37); Alanine Aminotransfer ALT/SGPT 11 U/L (13-56); Albumin, Serum 2.5 g/dL (3.2-5.0); Alkaline Phosphatase 69 U/L (45-117); Anion Gap 4 (5-15); BUN 30 mg/dL (7-18); BUN/Creat Ratio 28.8 RATIO (10-20); Bilirubin, Direct 0.07 mg/dL (0.00-0.30); Calcium,Total 8.9 mg/dL (8.5-10.1); Chloride 109 mmol/L (98-107); Creatinine, Serum 1.04 mg/dL (0.55-1.02); EST Glomerular Filtration Rate 54 mL/min (>60); Est Glom Filt Rate - Afr Amer 65 mL/min (>60); Globulin 3.8 g/dL (2.2-4.2); Glucose 119 mg/dL (74-106); Potassium 3.9 mmol/L (3.5-5.1); Protein, Total 6.3 g/dL (6.4-8.2); Sodium Level 141 mmol/L (136-145)
[2024-10-05 07:56] VITALS: O2SAT 94
[2024-10-05 10:14] VITALS: BP 132/60; PULSE 70
[2024-10-05] MEDS: Magnesium Chloride 64 MG Delay Rel.Tablet 128 MG PO (10:14)
[2024-10-05] MEDS: Tolterodine Tartrate 2 MG CAP.SA PO (10:14)
[2024-10-05] MEDS: Atorvastatin Calcium 10 MG Tablet 5 MG PO (10:14)
[2024-10-05] MEDS: Metoprolol(XL)Succ 25 MG Tablet PO (10:14)
[2024-10-05] MEDS: Ferrous Sulfate 325 MG Tablet PO (10:14)
[2024-10-05] MEDS: Pantoprazole Sodium 40 MG Tablet PO (10:14)
[2024-10-05] MEDS: Rivaroxaban 15 MG Tablet PO (10:15)
[2024-10-05] MEDS: Umeclidinium Bromide Inhaler 1 PUFF INHALATION (10:15)
[2024-10-05] MEDS: Menthol/Lanolin/Calamine/Znox 113 GM Tube 1 APPLIC TOPICAL ×2 (10:15→21:49)
[2024-10-05] MEDS: Lisinopril 10 MG Tablet PO (10:16)
[2024-10-05] MEDS: Nystatin Powder 15gm Bottle 1 APPLIC TOPICAL ×2 (10:17→21:49)
[2024-10-05 11:43] LABS: Bedside Glucose 197 mg/dL (74-106)
[2024-10-05] MEDS: Insulin Lispro 100 UNIT/ML INSULN.PEN 7 UNIT SC ×2 (13:10→17:41)
[2024-10-05 14:03] VITALS: BP 117/44; PULSE 81; RESP 16; TEMP 36.3; O2SAT 94
--- NOTE | 2024-10-05 16:08 | CASEMGMT ---
Addendum entered by Michell Lopez 10/05/24 17:13: PASRR completed. DC paperwork sent to [facility]. W/C transport scheduled with [facility] for 1100. Original Note: Social Work SW spoke with SO and pt at bedside. Updated [facility] and [facility] can accept. Pt and SO prefer [facility]. SW offered DC 10/09. Both agreeable. SW to schedule transport and complete PASRR. SW updated both SNFs and IDT. Plan: DC 10/09 to [facility], intermediate, private pay, part B therapies Michell Lopez, SUPRIYA KRISHNANW
[2024-10-05 16:44] LABS: Bedside Glucose 351 mg/dL (74-106)
[2024-10-05 21:06] LABS: Bedside Glucose 267 mg/dL (74-106)
[2024-10-05] MEDS: Insulin Glargine-YFGN 100 UNIT/ML Pen 20 UNIT SC (21:48)
[2024-10-06] MEDS: Levothyroxine 100 MCG Tablet PO (05:48)
--- NOTE | 2024-10-06 05:50 | NURSING ---
Addendum entered by Jeanine Wahl 10/06/24 07:01: Recheck blood sugar 113. Addendum entered by Jeanine Wahl 10/06/24 06:48: Patient's recheck blood sugar increased to 67 after orange juice. Patient wanted another orange juice, orange juice administered. Will recheck again. Original Note: Patient's blood sugar this morning was 48. Patient offered orange juice, patient tolerated well. No symptoms of hypoglycemia. Will recheck in 15 minutes.
[2024-10-06 06:34] LABS: Bedside Glucose 48 mg/dL (74-106)
[2024-10-06 06:34] LABS: Bedside Glucose 67 mg/dL (74-106)
[2024-10-06 07:17] LABS: Bedside Glucose 113 mg/dL (74-106)
[2024-10-06 07:31] VITALS: O2SAT 94
[2024-10-06 08:00] VITALS: BP 123/53; PULSE 77; RESP 18; TEMP 36.7; O2SAT 91
[2024-10-06 09:13] VITALS: BP 123/53; PULSE 77
[2024-10-06] MEDS: Magnesium Chloride 64 MG Delay Rel.Tablet 128 MG PO (09:13)
[2024-10-06] MEDS: Pantoprazole Sodium 40 MG Tablet PO (09:13)
[2024-10-06] MEDS: Metoprolol(XL)Succ 25 MG Tablet PO (09:13)
[2024-10-06] MEDS: Cholecalciferol (VIT D3) 25 MCG TABLET (1,000 UNITS) 100 MCG PO (09:13)
[2024-10-06] MEDS: Lisinopril 10 MG Tablet PO (09:13)
[2024-10-06] MEDS: Menthol/Lanolin/Calamine/Znox 113 GM Tube 1 APPLIC TOPICAL ×2 (09:14→21:53)
[2024-10-06] MEDS: Rivaroxaban 15 MG Tablet PO (09:14)
[2024-10-06] MEDS: Ferrous Sulfate 325 MG Tablet PO (09:14)
[2024-10-06] MEDS: Umeclidinium Bromide Inhaler 1 PUFF INHALATION (09:15)
[2024-10-06] MEDS: Tolterodine Tartrate 2 MG CAP.SA PO (09:15)
[2024-10-06] MEDS: Nystatin Powder 15gm Bottle 1 APPLIC TOPICAL ×2 (09:15→21:53)
[2024-10-06] MEDS: Atorvastatin Calcium 10 MG Tablet 5 MG PO (09:15)
[2024-10-06 12:05] LABS: Bedside Glucose 217 mg/dL (74-106)
[2024-10-06] MEDS: Insulin Lispro 100 UNIT/ML INSULN.PEN 7 UNIT SC ×2 (13:01→17:52)
[2024-10-06 15:15] VITALS: PULSE 77; RESP 18; O2SAT 91
[2024-10-06 16:42] LABS: Bedside Glucose 236 mg/dL (74-106)
[2024-10-06] MEDS: Senna/Docusate Sodium 1 Tablet 2 TABLET PO (21:49)
[2024-10-06] MEDS: Insulin Glargine-YFGN 100 UNIT/ML Pen 20 UNIT SC (21:50)
[2024-10-06 22:08] LABS: Bedside Glucose 224 mg/dL (74-106)
[2024-10-07] MEDS: Levothyroxine 150 MCG Tablet PO (05:32)
[2024-10-07 05:38] VITALS: PULSE 79; RESP 16; O2SAT 94
[2024-10-07 06:26] LABS: Bedside Glucose 94 mg/dL (74-106)
[2024-10-07 06:26] LABS: Bedside Glucose 70 mg/dL (74-106)
--- NOTE | 2024-10-07 07:00 | NURSING ---
Checked patient's blood sugar at 5am, it was 94. Rechecked at 5:50am, it was 70. Given orange juice.
[2024-10-07 08:00] VITALS: BP 129/60; PULSE 84; RESP 18; TEMP 36.3; O2SAT 92
[2024-10-07 08:20] VITALS: BP 129/60; PULSE 84
[2024-10-07] MEDS: Senna/Docusate Sodium 1 Tablet 2 TABLET PO ×2 (08:20→20:44)
[2024-10-07] MEDS: Metoprolol(XL)Succ 25 MG Tablet PO (08:20)
[2024-10-07] MEDS: Rivaroxaban 15 MG Tablet PO (08:20)
[2024-10-07] MEDS: Magnesium Chloride 64 MG Delay Rel.Tablet 128 MG PO (08:20)
[2024-10-07] MEDS: Lisinopril 10 MG Tablet PO (08:20)
[2024-10-07] MEDS: Atorvastatin Calcium 10 MG Tablet 5 MG PO (08:20)
[2024-10-07] MEDS: Ferrous Sulfate 325 MG Tablet PO (08:20)
[2024-10-07] MEDS: Nystatin Powder 15gm Bottle 1 APPLIC TOPICAL ×2 (08:21→20:44)
[2024-10-07] MEDS: Umeclidinium Bromide Inhaler 1 PUFF INHALATION (08:21)
[2024-10-07] MEDS: Pantoprazole Sodium 40 MG Tablet PO (08:21)
[2024-10-07] MEDS: Menthol/Lanolin/Calamine/Znox 113 GM Tube 1 APPLIC TOPICAL ×2 (08:21→20:45)
[2024-10-07] MEDS: Tolterodine Tartrate 2 MG CAP.SA PO (08:21)
[2024-10-07 08:23] VITALS: O2SAT 94
[2024-10-07 11:45] LABS: Bedside Glucose 161 mg/dL (74-106)
[2024-10-07] MEDS: Insulin Lispro 100 UNIT/ML INSULN.PEN SC ×2 (12:03→17:41)
--- NOTE | 2024-10-07 14:05 | NURSING ---
New order received from Dr. Barrett- 1) D/C Insulin Glargine 20 units at HS. 2) Insulin Glargine- 15 units sub q at HS 3) D/C Insulin Lispro 7 units TID with meals. 4) Insulin 5 units sub q TID with meals. Patient and POA aware of new orders.
[2024-10-07 17:13] LABS: Bedside Glucose 119 mg/dL (74-106)
[2024-10-07] MEDS: Insulin Glargine-YFGN 100 UNIT/ML Pen 15 UNIT SC (20:46)
[2024-10-07 22:00] LABS: Bedside Glucose 132 mg/dL (74-106)
[2024-10-08 04:39] LABS: Bedside Glucose 80 mg/dL (74-106)
[2024-10-08] MEDS: Levothyroxine 100 MCG Tablet PO (05:11)
[2024-10-08 06:45] LABS: Bedside Glucose 112 mg/dL (74-106)
[2024-10-08 09:02] VITALS: BP 123/47; PULSE 94; RESP 16; TEMP 36.3; O2SAT 96
[2024-10-08] MEDS: Insulin Lispro 100 UNIT/ML INSULN.PEN SC ×3 (09:07→17:14)
[2024-10-08] MEDS: Umeclidinium Bromide Inhaler 1 PUFF INHALATION (09:07)
[2024-10-08] MEDS: Tolterodine Tartrate 2 MG CAP.SA PO (09:08)
[2024-10-08] MEDS: Atorvastatin Calcium 10 MG Tablet 5 MG PO (09:08)
[2024-10-08] MEDS: Ferrous Sulfate 325 MG Tablet PO (09:08)
[2024-10-08 09:09] VITALS: PULSE 94
[2024-10-08] MEDS: Pantoprazole Sodium 40 MG Tablet PO (09:09)
[2024-10-08] MEDS: Lisinopril 10 MG Tablet PO (09:09)
[2024-10-08] MEDS: Magnesium Chloride 64 MG Delay Rel.Tablet 128 MG PO (09:09)
[2024-10-08] MEDS: Metoprolol(XL)Succ 25 MG Tablet PO (09:09)
[2024-10-08] MEDS: Rivaroxaban 15 MG Tablet PO (09:09)
[2024-10-08] MEDS: Senna/Docusate Sodium 1 Tablet 2 TABLET PO (09:09)
[2024-10-08] MEDS: Menthol/Lanolin/Calamine/Znox 113 GM Tube 1 APPLIC TOPICAL ×2 (09:09→21:58)
[2024-10-08] MEDS: Nystatin Powder 15gm Bottle 1 APPLIC TOPICAL ×2 (09:10→21:59)
[2024-10-08] MEDS: Cholecalciferol (VIT D3) 25 MCG TABLET (1,000 UNITS) 100 MCG PO (09:10)
[2024-10-08 09:56] VITALS: O2SAT 94
[2024-10-08 11:39] LABS: Bedside Glucose 255 mg/dL (74-106)
--- NOTE | 2024-10-08 15:19 | CASEMGMT ---
Social Work SW completed BIMS (09/07) and PHQ-9 (01/17) for MDS assessment. SUPRIYA HopsonW
[2024-10-08 17:19] LABS: Bedside Glucose 244 mg/dL (74-106)
[2024-10-08] MEDS: Insulin Glargine-YFGN 100 UNIT/ML Pen 15 UNIT SC (21:59)
[2024-10-08 22:06] LABS: Bedside Glucose 379 mg/dL (74-106)
[2024-10-09 06:23] LABS: Bedside Glucose 214 mg/dL (74-106)
[2024-10-09 06:37] VITALS: O2SAT 95
[2024-10-09] MEDS: Levothyroxine 100 MCG Tablet PO (06:38)
[2024-10-09] MEDS: Rivaroxaban 15 MG Tablet PO (08:48)
[2024-10-09] MEDS: Atorvastatin Calcium 10 MG Tablet 5 MG PO (08:48)
[2024-10-09] MEDS: Lisinopril 10 MG Tablet PO (08:49)
[2024-10-09] MEDS: Magnesium Chloride 64 MG Delay Rel.Tablet 128 MG PO (08:49)
[2024-10-09] MEDS: Pantoprazole Sodium 40 MG Tablet PO (08:49)
[2024-10-09] MEDS: Tolterodine Tartrate 2 MG CAP.SA PO (08:49)
[2024-10-09 08:50] VITALS: PULSE 88
[2024-10-09] MEDS: Senna/Docusate Sodium 1 Tablet 2 TABLET PO (08:50)
[2024-10-09] MEDS: Nystatin Powder 15gm Bottle 1 APPLIC TOPICAL (08:50)
[2024-10-09] MEDS: Metoprolol(XL)Succ 25 MG Tablet PO (08:50)
[2024-10-09] MEDS: Umeclidinium Bromide Inhaler 1 PUFF INHALATION (08:50)
[2024-10-09] MEDS: Menthol/Lanolin/Calamine/Znox 113 GM Tube 1 APPLIC TOPICAL (08:51)
[2024-10-09] MEDS: Ferrous Sulfate 325 MG Tablet PO (08:51)
[2024-10-09 10:00] VITALS: BP 109/59; PULSE 88; RESP 18; TEMP 36.8; O2SAT 95
--- NOTE | 2024-10-09 10:45 | NURSING ---
report called to [facility], spoke with Ese.
== END 2024-10-09 10:55 | disposition intermediate care facility (04) | DRG 689 ==
PROVIDERS: Internal Medicine; Admitting Provider Family Medicine Geriatric Medicine; PCP Internal Medicine; Visit Provider Family Medicine Geriatric Medicine
DX: N10 Acute pyelonephritis (principal); K31.811 Angiodysplasia of stomach and duodenum with bleeding; R78.81 Bacteremia; Z16.12 Extended spectrum beta lactamase (ESBL) resistance; B96.1 Klebsiella pneumoniae [K. pneumoniae] as the cause of diseases classified elsewhere; E10.65 Type 1 diabetes mellitus with hyperglycemia; D50.0 Iron deficiency anemia secondary to blood loss (chronic); N17.9 Acute kidney failure, unspecified; Z99.81 Dependence on supplemental oxygen; G30.9 Alzheimer's disease, unspecified; I48.91 Unspecified atrial fibrillation; J44.9 Chronic obstructive pulmonary disease, unspecified; E03.9 Hypothyroidism, unspecified; I10 Essential (primary) hypertension; E06.3 Autoimmune thyroiditis; E55.9 Vitamin D deficiency, unspecified; F02.80 Dementia in other diseases classified elsewhere, unspecified severity, without behavioral disturbance, psychotic disturbance, mood disturbance, and anxiety; Z79.4 Long term (current) use of insulin; K21.9 Gastro-esophageal reflux disease without esophagitis; E78.5 Hyperlipidemia, unspecified; B37.31 Acute candidiasis of vulva and vagina; Z79.01 Long term (current) use of anticoagulants; Z87.891 Personal history of nicotine dependence; N32.81 Overactive bladder; Z79.899 Other long term (current) drug therapy; Z79.890 Hormone replacement therapy
CPT/HCPCS: 36415; 71046; 80048; 80076; 81001; 82274; 82306; 82570; 82728; 82947; 82962; 83540; 83550; 83880; 85014; 85018; 85025; 87086; 87811; 92507; 92523; 97110; 97116; 97129; 97130; 97162; 97166; 97530; 97535; 97802; J7040; A4216; J1610

== ENCOUNTER 2024-09-17 04:36 | Emergency (ER) | payer MEDICARE, OTHER, SELFPAY ==
[2024-09-17 04:38] VITALS: BP 138/71; PULSE 113; RESP 18; TEMP 36.5; O2SAT 95; BMI 29.0
--- NOTE | 2024-09-17 04:40 | CT_ITS ---
EXAM: CT HEAD WITHOUT INTRAVENOUS CONTRAST CLINICAL INDICATION: Head trauma, headache, altered mental status TECHNIQUE: Multiple axial images were obtained of the head without intravenous contrast. This CT exam was performed using one or more of the following dose reduction techniques: automated exposure control, adjustment of the mA and/or kV according to patient size, and/or use of iterative reconstruction technique. RADIATION DOSE: CTDIvol = 44.99 mGy, DLP = 798.92 mGy-cm COMPARISON: Head CT from 06/04/2022. FINDINGS: BRAIN AND EXTRA-AXIAL SPACES: Diffuse cerebral volume loss. Periventricular small vessel ischemic changes. No intra- or extra-axial hemorrhage. No intracranial mass or mass effect. Posterior fossa structures are unremarkable. No hydrocephalus. Basal cisterns are patent. 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 VASCULATURE: Vascular calcifications. SINUSES: Unremarkable as visualized. Clear. MASTOID AIR CELLS: Unremarkable. Clear. ORBITS: Visualized globes, extraocular muscles, optic nerves and retrobulbar fat appear unremarkable. CT/Brain/Head without Contrast IMPRESSION: 1. No acute intracranial abnormalities. 2. Age-related changes. Electronically Signed: Pelon Rhodes MD at 5:34 EST ,
[2024-09-17] MEDS: Lidocaine 1% (20 ml mdv) 20 ML Vial INFILT (04:47)
--- NOTE | 2024-09-17 04:56 | EDS_ITS ---
HPI History of Present Illness Chief Complaint: Fall Detail of Chief Complaint: Unwitnessed fall Informant: patient (Limited due to the fact that she has Alzheimer's disease per medical records. Patient denies this.) Limited: dementia Onset/Context/Timing Onset: Hours Mechanism/Context: Blunt Injury and Fall Location of pain/injuries: - (Complains of headache.) Location: Global Current Severity: Moderate Maximum Severity: Moderate Worsened by: Nothing specific Relieved by: Nothing Associated Symptoms Associated Symptoms: Negative for Parasthesias, Weakness, Loss of function, Inability to ambulate or Amnesia Narrative Narrative: Patient is not a good informant due to dementia. Patient states she does not have a history of dementia. However when asked her age she responded 50. When asked the month her response was I do not like these questions . Patient did not know the month, or year. She knows she is at [facility]. She did not know her age either. Patient is DNR Comfort Care arrest. The document specifically says no CPR no intubation. Patient was admitted for sepsis and had gram-negative bacteria noted, bacteremia. Source was urine. She also had THANIA, hyponatremia and generalized weakness and debility. She also had chronic hypoxia due to her COPD. There is a history of anemia as well as paroxysmal atrial fibrillation. Her Xarelto has been held for approximately 1 week. 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 Memory loss HLD (hyperlipidemia) HTN (hypertension) Pulmonary embolism, bilateral Smoker COPD (chronic obstructive pulmonary disease) Home Medications ?Medication ?Instructions ?Recorded ?Last Taken ?Type cholecalciferol (vitamin D3) 50 4,000 unit PO .COMPLEX vitamin 06/29/23 01/11/24 History mcg (2,000 unit) tablet (D3 DOTS) magnesium 200 mg tablet 400 mg PO DAILY supplement 06/29/23 Unknown History iron, carbonyl 45 mg tablet 45 mg PO DAILY ANEMIA #30 tabs 06/16/24 Unknown Rx tiotropium bromide 2.5 2 inh inhalation DAILY COPD 06/29/24 Unknown History mcg/actuation mist for inhalation (Spiriva Respimat) acetaminophen 325 mg tablet 650 mg (2 x 325 mg) PO Q4H PRN PRN 07/02/24 Unknown Rx Fever, pain 1-08/02 #0 tabs albuterol sulfate 2.5 mg/3 mL 2.5 mg (3 mL) inhalation Q2H PRN 07/02/24 Unknown Rx (0.083 %) solution for nebulization PRN Dyspnea, wheezing #0 mL ferrous sulfate 325 mg (65 mg 325 mg PO DAILYCM supplement #0 07/02/24 Unknown Rx iron) tablet (FeroSul) tabs levothyroxine 100 mcg tablet 100 mcg PO MoTuWeThFrSa@0600 07/02/24 Unknown Rx thyroid #0 tabs levothyroxine 150 mcg tablet 150 mcg PO Alston@0600 HYPOTHYROIDISM 07/02/24 Unknown Rx #0 tabs melatonin 3 mg tablet 3 mg PO QHS PRN PRN Insomnia #0 07/02/24 Unknown Rx tabs menthol 0.44 %-zinc oxide 20.6 % 1 applic topical 4X/DAY REDNESS #0 07/02/24 Unknown Rx topical ointment (Calmoseptine) grams metoprolol succinate 25 mg 25 mg PO DAILY HEART RATE #0 tabs 07/02/24 Unknown Rx tablet,extended release 24 hr nutrition tx glu 120 ml PO 4X/DAY supplement #0 mL 07/02/24 Unknown Rx intol,lac-free,soy-fiber 0.06 gram-1.2 kcal/mL liquid (Glucerna 1.2 Remy) rivaroxaban 20 mg tablet (Xarelto) 20 mg PO DAILY CLOTTING #0 tabs 07/02/24 Unknown Rx tolterodine 2 mg capsule,extended 2 mg PO DAILY bladder #0 caps 07/02/24 Unknown Rx release 24 hr walker (Ultra-Light Rollator misc) #1 ea 09/05/24 Unknown Rx insulin aspart U-100 100 unit/mL subcut UD HYPERGLYCEMIA 09/10/24 Unknown History subcutaneous solution (Novolog U-100 Insulin aspart) pantoprazole 40 mg tablet,delayed 40 mg PO DAILY GERD 09/10/24 Unknown History release simvastatin 10 mg tablet 10 mg PO DAILY HIGH CHOLESTEROL 09/10/24 Unknown History amlodipine 5 mg-benazepril 10 mg 1 cap PO DAILY blood pressure 30 09/13/24 1 11/07/21 Rx capsule days #0 caps ertapenem 1 gram solution for 1 g IV Q24 UTI 7 days #7 ea 09/13/24 Unknown Rx injection insulin glargine-yfgn 100 unit/mL 10 unit subcut DINNER elevated 09/13/24 Unknown History (3 mL) subcutaneous pen glucose insulin lispro 100 unit/mL 5 unit (0.05 mL) subcut TIDCM 09/13/24 Unknown Rx subcutaneous pen (Humalog KwikPen diabetes 1 month #15 mL (U-100) Insulin) insulin lispro 100 unit/mL See Protocol subcut ACHS diabetes 09/13/24 Unknown Rx subcutaneous pen (Humalog KwikPen #0 mL (U-100) Insulin) sennosides 8.6 mg-docusate sodium 2 tab PO BID constipation #0 tabs 09/13/24 Unknown Rx 50 mg tablet (Stimulant Laxative Plus) Allergy/AdvReac Type Severity Reaction Status Date / Time ciprofloxacin (From Cipro) Allergy Intermediate hives Verified 09/17/24 04:37 Sulfa (Sulfonamide Allergy Intermediate hives Verified 09/17/24 04:37 Antibiotics) Penicillins Allergy Rash Verified 09/17/24 04:37 Family History Father Diabetes Respiratory disease Mother No problems noted. 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 alcohol intake: current alcohol intake frequency: a few times a month substance use type: does not use ROS ROS ED Review of Systems ROS Unobtainable: due to mental status Eyes Eyes: Denies blurry vision or change in vision Cardiovascular Cardiovascular: Denies chest pain or palpitations Respiratory/Chest Respiratory/Chest: Denies cough or dyspnea Gastrointestinal Gastrointestinal: Reports nausea; Denies vomiting Musculoskeletal Musculoskeletal: Denies back pain or neck pain Neurologic Neurologic: Reports headache(s) EXAM Physical Exam Const Vital Signs: 09/17/24 04:38 09/17/24 04:48 09/17/24 06:37 Temperature 97.7 F L Temperature Source Oral Pulse Rate 113 H 75 Respiratory Rate 18 18 Blood Pressure 138/71 H 146/73 H Blood Pressure Mean 93 97 Pulse Ox 95 95 Oxygen Delivery Method Nasal Cannula Nasal Cannula Room Air Oxygen Flow Rate (L/min) 2 2 Positive well nourished and well developed General Appearance ED: well developed and NAD HEENT HEENT Narrative: Patient has a side ways the laceration forehead. There is no palpable depression. There is no hemotympanum. There is no CSF otorrhea or rhinorrhea. There is no raccoon sign or Goldsmith sign. (No clinical findings of basilar skull fracture.) There is no septal deviation hematoma noted. There is no evidence of dental trauma. trauma and tenderness; Negative for atraumatic Eyes PERRL and EOMs intact bilaterally General Eye ED: Yes other Other Details: There is no subconjunctival hemorrhage. Patient's had evidence of cataract surgery. Neck full ROM Neck Narrative: There is no midline posterior pain. She has full active range of motion without pain. Even though she is a GCS of 14 she is able to perceive pain and with no pain palpation full active range of motion nonfocal neurologic exam in my opinion C-spine has been cleared General: Negative for tenderness Chest Wall inspection of chest normal and palpation of chest normal Resp normal respiratory effort and clear to auscultation bilaterally Cardio regular rhythm, S1 normal heart sound, S2 normal heart sound and no murmurs Rate: regular rate GI normal to inspection, nondistended, normoactive bowel sounds, non-tender, non- distended and no masses Back/Spine normal to inspection and no thoracic nor lumbar tenderness Extremity full ROM; Negative for normal to inspection Extremity Narrative: Abrasion noted over the right patella. The patella is not ballotable. There is no effusion. There is no laxity with varus valgus stress testing. There is no joint line tenderness. There is no neurovasc Otomize of the right lower extremity. There is no evidence of trauma to the left lower extremity. She has full active range of motion of the left ankle and knee. There is no pain ovation of the left lower extremity. General Extremety ED: Yes tenderness; Negative for deformity or edema General Extremity: Negative for deformity or edema Neuro No oriented x3, CN's II-XII intact bilaterally, moves all extremities, no focal motor deficits and no sensory deficits noted Srini Coma Scale: document GCS findings Spontaneous Obeys Commands Confused 14 Plantar Reflex: Downgoing: bilateral Psych mental status grossly normal and thought process normal Skin No no rashes or lesions noted, No no wounds, skin turgor normal and no jaundice PROC Procedures Other Procedures Procedure(s): Suture note: Patient has a stellate laceration left side of the forehead. A a supratrochlear and orbital nerve block was placed using 1% lidocaine. After 10 minutes patient's wound was irrigated with normal saline, 100 cc. Using 6-0 Ethilon simple interrupted sutures placed. There was a total of 8 stitches. Patient tolerated procedure well. MDM MDM MDM Narrative Medical decision making narrative: Because patient complained of significant headache and unwitnessed and history is limited due to the fact that she has mild dementia CT of the head was obtained. This was obtained to rule out intracranial bleed. Even though she is mildly demented she is able to perceive pain and has no pain outpatient posterior neck midline or left or right paracervical area. She has full active range of motion without complaint of pain grimacing or hesitation. Radiography Diagnostic Testing: Clinical Impression(s) from Imaging Studies Brain CT 09/17/24 04:40 IMPRESSION: 1. No acute intracranial abnormalities. 2. Age-related changes. Electronically Signed: Pelon Rhodes MD at 5:34 EST , CT of the head without contrast reviewed by me. There is no evidence of fracture. There is no fluid in the sinuses. There is no evidence of epidural hematoma, subdural hematoma, traumatic subarachnoid hemorrhage or intraparenchymal contusion. Treatment and Re-Evaluation Narrative: Patient's POA and friend Dillon Anthony was informed that case management is not coming until later. The plan is to send back to TCU and that he speak with case management regarding possible discharge prior to Tuesday on IV antibiotics. Discharge Plan Triage Chief Complaint: Fall ED Provider: Esequiel Harris Dx/Rx/DC Orders Clinical Impression: CHI (closed head injury), HLD (hyperlipidemia), COPD (chronic obstructive pulmonary disease), Diabetes mellitus type 1, GERD (gastroesophageal reflux disease), Forehead laceration, Injury due to fall, History of dementia Instructions: ED Head Injury (Adult), ED Laceration, All Closures, ED Laceration Minimize Scars Prescriptions: No Action (DME) Ultra-Light Rollator Misc See Rx Instructions .Route Qty: 1 0RF Rx Instructions: WITH SEAT magnesium 200 mg tablet 400 mg PO DAILY cholecalciferol (vitamin D3) [D3 DOTS] 50 mcg (2,000 unit) tablet 4,000 unit PO .COMPLEX Rx Instructions: 4,000 units orally every other day; iron, carbonyl 45 mg tablet 45 mg PO DAILY Qty: 30 0RF Patient Comments: TAKES A 65MG TABLET BECAUSE THEY CAN NOT FIND A 45MG AT STORE Spiriva Respimat 2.5 mcg/actuation mist 2 inh INHALATION DAILY acetaminophen 325 mg Tablet 650 mg PO Q4H PRN PRN (Reason: Fever, pain 1-08/02) Qty: 0 0RF albuterol sulfate 2.5 mg /3 mL (0.083 %) Solution For Nebulization 2.5 mg inhalation Q2H PRN PRN (Reason: Dyspnea, wheezing) Qty: 0 0RF Glucerna 1.2 Remy 0.06-1.2 gram-kcal/mL Liquid 120 ml PO 4X/DAY Qty: 0 0RF ferrous sulfate [FeroSul] 325 mg (65 mg iron) Tablet 325 mg PO DAILYCM Qty: 0 0RF levothyroxine 100 mcg Tablet 100 mcg PO MoTuWeThFrSa@0600 Qty: 0 0RF levothyroxine 150 mcg Tablet 150 mcg PO Alston@0600 Qty: 0 0RF melatonin 3 mg Tablet 3 mg PO QHS PRN PRN (Reason: Insomnia) Qty: 0 0RF menthol-zinc oxide [Calmoseptine] 0.44-20.6 % Ointment 1 applic topical 4X/DAY Qty: 0 0RF Protocol: *Topical Application Instructions APPLICATION INSTRUCTIONS: apply to affected region tolterodine 2 mg Capsule,Extended Release 24hr 2 mg PO DAILY Qty: 0 0RF metoprolol succinate 25 mg Tablet Extended Release 24 Hr 25 mg PO DAILY Qty: 0 0RF Patient Comments: HAS NOT STARTED YET 09/10 Xarelto 20 mg Tablet 20 mg PO DAILY Qty: 0 0RF insulin aspart U-100 [Novolog U-100 Insulin aspart] 100 unit/mL solution subcut UD simvastatin 10 mg tablet 10 mg PO DAILY pantoprazole 40 mg tablet,delayed release (DR/EC) 40 mg PO DAILY ertapenem 1 gram Recon Soln 1 g IV Q24 7 Days Qty: 7 0RF Rx Instructions: stop date 09/20/24. Dx: esbl bacteremia. Weekly bmp, cbc, and LFT. Fax to [phone]. Routine midline care per protocol. insulin lispro [Humalog KwikPen Insulin] 100 unit/mL Insulin Pen See Protocol subcut ACHS Qty: 0 0RF Protocol: 4. Sliding Scale Insulin High-Med Dosing Condition: 150-199 mg/dl = 2 units Condition: 200-259 mg/dl = 4 units Condition: 260-324 mg/dl = 6 units Condition: 325-374 mg/dl = 8 units Condition: 375-409 mg/dl = 10 units Condition: 410-449 mg/dl = 11 units Condition: Greater than 449 call physician Protocol Text: Suggested for: - Patients on Total Daily Insulin Dose of 56-80 units - Patient who are known to be insulin resistant or septic HIGH MEDIUM DOSING ALGORITHM sennosides-docusate sodium [Stimulant Laxative Plus] 8.6-50 mg Tablet 2 tab PO BID Qty: 0 0RF amlodipine-benazepril 5-10 mg capsule 1 cap PO DAILY 30 Days Qty: 0 0RF Rx Instructions: Hold for SBP less than 130 mmHg insulin lispro [Humalog KwikPen Insulin] 100 unit/mL insulin pen 5 unit subcut TIDCM 30 Days Qty: 15 0RF Rx Instructions: Hold if glucose less than 130 mg/dl insulin glargine-yfgn 100 unit/mL (3 mL) Insulin Pen 10 unit subcut DINNER Rx Instructions: hold if glucose < 130 Primary Care Provider: Shena Jeffers Referrals: Shena Jeffers, [Primary Care Provider] - 5 Days for suture removal Activity Restrictions/Additional Instructions: 1. Apply bacitracin ointment 2-3 times a day 2. You will have a scar. 3. The scar may look worse over the next 7 to 10 days. It will take approximately 3 to 6 months to determine the final appearance of your scar. 4. Sutures to be removed in 5 days Print Language: Malay Disposition Disposition: Home, Self Care
[2024-09-17 06:37] VITALS: BP 146/73; PULSE 75; RESP 18; O2SAT 95
--- NOTE | 2024-09-17 06:40 | PCM.HOSP.N ---
Hospitalist Note Rapid response was called overhead at 4:24 AM after patient was found on the floor bleeding from the Left mid forehead. She has sustained a mild laceration after falling trying to get back into bed apparently. She was alert and responsive but had some [id number] amount of bleeding so she was sent to the ER for emergent evaluation. She had no signs of acute focal neurologic deficits and her vital signs were stable.
[2024-09-17 07:08] VITALS: BP 148/78; PULSE 68; RESP 19; TEMP 36.9; O2SAT 93
[2024-09-17 07:09] VITALS: BP 145/74; PULSE 82; RESP 16; TEMP 36.7; O2SAT 92
== END 2024-09-17 07:31 | disposition home or self-care (01) ==
PROVIDERS: Emergency Provider Emergency Medicine; PCP Internal Medicine; Visit Provider Emergency Medicine
DX: S01.81XA Laceration without foreign body of other part of head, initial encounter (principal); G30.9 Alzheimer's disease, unspecified; F02.83 Dementia in other diseases classified elsewhere, unspecified severity, with mood disturbance; J44.9 Chronic obstructive pulmonary disease, unspecified; I48.0 Paroxysmal atrial fibrillation; E10.9 Type 1 diabetes mellitus without complications; Z79.4 Long term (current) use of insulin; S80.211A Abrasion, right knee, initial encounter; W19.XXXA Unspecified fall, initial encounter; I10 Essential (primary) hypertension; E03.9 Hypothyroidism, unspecified; E78.5 Hyperlipidemia, unspecified; D64.9 Anemia, unspecified; K21.9 Gastro-esophageal reflux disease without esophagitis; M81.0 Age-related osteoporosis without current pathological fracture; N39.0 Urinary tract infection, site not specified; Z66 Do not resuscitate; Z88.0 Allergy status to penicillin; Z88.1 Allergy status to other antibiotic agents; Z88.2 Allergy status to sulfonamides; Z90.49 Acquired absence of other specified parts of digestive tract; Z79.01 Long term (current) use of anticoagulants; Z86.19 Personal history of other infectious and parasitic diseases; Z96.41 Presence of insulin pump (external) (internal); Z86.711 Personal history of pulmonary embolism; Z86.718 Personal history of other venous thrombosis and embolism; Z79.899 Other long term (current) drug therapy; Z79.890 Hormone replacement therapy; Z87.448 Personal history of other diseases of urinary system; Z87.891 Personal history of nicotine dependence
CPT/HCPCS: 12011; 70450; 99284

== ENCOUNTER 2024-09-18 16:10 | Day surgery (SDC) | payer MEDICARE, OTHER, SELFPAY ==
[2024-09-18] VITALS (9 sets, daily range): BP systolic 73–127; BP diastolic 40–59; PULSE 74–76; RESP 16–18; TEMP 36.1–36.4; O2SAT 91–99; BMI 25.0
--- NOTE | 2024-09-18 15:00 | NURSING ---
Upon assessing pt, when asking her questions she replies no. If I ask her more questions she will tell me to stop, she will open her eyes slightly. unable to really assess her orientation. per her chart and tcu staff pt has a POA, called to get consent. unable to reach. chanda said Najma, not their name, this nurse did not feel comfortable leaving a message.
--- NOTE | 2024-09-18 15:19 | PCM.PRE.AN2 ---
ASA Classification* ASA Classification ASA Classification: 3 Assessment & Plan Anesthesia* Anesthesia Assessment Anesthesia Assessment: Discussed sedation and/or anesthesia options, risks, benefits, and alternatives with patient/parents/legal guardian/POA. Questions invited. The patient/parents/legal guardian/POA seems to understand and agrees to proceed with anesthesia plan. Reviewed the physical assessment, medical history, allergy history and patient home medications list prior to surgery/procedure/anesthetic and documented any changes. Performed airway and anesthesia risk assessments. Anesthesia Type Anesthesia Type: MAC (see written pre anesthesia record for full assessment) Anesthesia Focused Assessment* Temperature: 97.3 F Pulse Rate: 75 Blood Pressure: 127/59 Respiratory Rate: 18 Pulse Ox: 99 Airway Assessment Mouth opens: >3 cm Mallampati Score: II Focused Labs Anesthesia Preop lab: CBC WBC 8.3 K/mm3 (4.4-11.0) 09/14/24 05:26 RBC 3.26 M/mm3 (4.2-5.4) L 09/14/24 05:26 Hgb 9.0 g/dL (12.0-15.0) L 09/17/24 07:46 Hct 30.1 % (37-47) L 09/17/24 07:46 Plt Count 440 K/mm3 (150-450) 09/14/24 05:26 CHEMISTRY Potassium 3.8 mmol/L (3.5-5.1) 09/14/24 05:26 Sodium 137 mmol/L (136-145) 09/14/24 05:26 Magnesium 2.2 mg/dL (1.6-2.6) 09/11/24 03:50 Phosphorus 2.8 mg/dL (2.5-4.9) 09/11/24 03:50 BUN 16 mg/dL (7-18) 09/14/24 05:26 Creatinine 0.89 mg/dL (0.55-1.02) 09/14/24 05:26 Glucose 125 mg/dL (74-106) H 09/14/24 05:26 POC Glucose 142 mg/dL (74-106) H 09/18/24 11:31 TSH 15.100 uIU/mL (0.358-3.740) H 08/21/24 05:50 COAG PT 16.0 SECONDS (11.7-14.9) H 11/22/22 14:50 Pre-Assessment Diagnosis/Proposed Procedure Planned Operative Procedure(s): EGD Anesthesia History Anesthesia History - sr account executive: Anesthesia History - sr account executive Hx Hospitalization Yes: 08/2024 PCU FOR THANIA 09/17/24 15:58 SEPSIS/NOW IN TCU Any Problems With Anesthesia No 09/17/24 15:58 Cholinesterase deficiency No 09/17/24 15:58 You/Your Family Experience No 09/17/24 15:58 fever (hyperthermia) with Relationship Recent Exposure to Contagious No 09/18/24 15:00 Disease Does patient have nerve No 09/17/24 15:58 stimulator Patient instructed to have device shut off --Does patient have Pacemaker No 09/18/24 15:00 or ICD? When Was Last Pacemaker Check QUESTION #4 FULL TEXT: You/Your Family Experience fever (hyperthermia) with Anesthesia Last Oral Intake Last Oral intake: Last Oral Intake NPO since Meds taken in AM with sips of water? Meds patient instructed to take am of surgery PONV PONV - sr account executive: PONV - sr account executive Female Yes 09/17/24 15:58 HX of Motion Sickness No 09/17/24 15:58 HX of N/V After Surgery No 09/17/24 15:58 Non-Smoker Yes 09/17/24 15:58 Duration of Surgery greater No 09/17/24 15:58 than 60 minutes Number of Risk Factors 2 09/17/24 15:58 PONV Score Moderate Risk 09/17/24 15:58 Height & Weight Height & Weight: Anesthesia: Height & Weight Height 5 ft 5 in 09/18/24 15:00 Weight: 68.039 kg 09/18/24 15:00 Body Mass Index (BMI) 25.0 09/18/24 15:00 Respiratory Assessment Respiratory Assessment - sr account executive: Respiratory Tract Infection Hx - sr account executive Hx Respiratory Tract Infection No 09/17/24 15:58 STOP Sleep Apnea STOP Sleep Apnea - sr account executive: STOP Sleep Apnea - sr account executive Hx Hypertension Yes: ON MEDS 09/17/24 15:58 Hx Sleep Apnea No 09/17/24 15:58 CPAP BIPAP Do you snore loudly (louder No 09/17/24 15:58 than talking or can be heard Do you often feel tired/ Yes 09/17/24 15:58 fatigued/ sleepy during daytime? Has anyone observed you stop No 09/17/24 15:58 breathing during sleep? STOP Results Positive 09/17/24 15:58 QUESTION #5 FULL TEXT : Do you snore loudly (louder than talking or can be heard through closed doors)? 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 Specify any problems Hx of Preganancy in last 3 No 09/17/24 15:58 Months Nurse Filling Out Transfusion DSCHRIBER 09/17/24 15:58 & Questions: Date: 09/17/24 09/17/24 15:58 Time: 15:59 09/17/24 15:58 Patient unable to answer at this time (ie. confused, unrespo /Reproduction History /Reproductive History - sr account executive: /Reproductive Hx- sr account executive Hx Now Gestational Age (in weeks): EDC: Hx Hx Para Hx Section SAB No 09/17/24 15:58 PFSH Medical History Transition of care Alcohol use Wears glasses Insulin dependent diabetes mellitus ESBL (extended spectrum beta-lactamase) producing bacteria infection Shakiness Confusion UTI (urinary tract infection) Weakness Anemia Overweight Hypothyroidism Former smoker On home oxygen therapy Hypertension DVT (deep venous thrombosis) Dementia Inability to walk Generalized weakness Diabetes mellitus type 1 Osteoporosis 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 Memory loss HLD (hyperlipidemia) HTN (hypertension) Pulmonary embolism, bilateral COPD (chronic obstructive pulmonary disease) Home Medications ?Medication ?Instructions ?Recorded ?Last Taken ?Type cholecalciferol (vitamin D3) 50 4,000 unit PO .COMPLEX vitamin 06/29/23 01/11/24 History mcg (2,000 unit) tablet (D3 DOTS) magnesium 200 mg tablet 400 mg PO DAILY supplement 06/29/23 09/18/24 History iron, carbonyl 45 mg tablet 45 mg PO DAILY ANEMIA #30 tabs 06/16/24 Unknown Rx tiotropium bromide 2.5 2 inh inhalation DAILY COPD 06/29/24 Unknown History mcg/actuation mist for inhalation (Spiriva Respimat) acetaminophen 325 mg tablet 650 mg (2 x 325 mg) PO Q4H PRN PRN 07/02/24 Unknown Rx Fever, pain 1-08/02 #0 tabs albuterol sulfate 2.5 mg/3 mL 2.5 mg (3 mL) inhalation Q2H PRN 07/02/24 Unknown Rx (0.083 %) solution for nebulization PRN Dyspnea, wheezing #0 mL ferrous sulfate 325 mg (65 mg 325 mg PO DAILYCM supplement #0 07/02/24 Unknown Rx iron) tablet (FeroSul) tabs levothyroxine 100 mcg tablet 100 mcg PO MoTuWeThFrSa@0600 07/02/24 Unknown Rx thyroid #0 tabs levothyroxine 150 mcg tablet 150 mcg PO Alston@0600 HYPOTHYROIDISM 07/02/24 Unknown Rx #0 tabs melatonin 3 mg tablet 3 mg PO QHS PRN PRN Insomnia #0 07/02/24 Unknown Rx tabs menthol 0.44 %-zinc oxide 20.6 % 1 applic topical 4X/DAY REDNESS #0 07/02/24 Unknown Rx topical ointment (Calmoseptine) grams metoprolol succinate 25 mg 25 mg PO DAILY HEART RATE #0 tabs 07/02/24 09/18/24 Rx tablet,extended release 24 hr nutrition tx glu 120 ml PO 4X/DAY supplement #0 mL 07/02/24 Unknown Rx intol,lac-free,soy-fiber 0.06 gram-1.2 kcal/mL liquid (Glucerna 1.2 Remy) rivaroxaban 20 mg tablet (Xarelto) 20 mg PO DAILY CLOTTING #0 tabs 07/02/24 09/14/24 Rx tolterodine 2 mg capsule,extended 2 mg PO DAILY bladder #0 caps 07/02/24 Unknown Rx release 24 hr walker (Ultra-Light Rollator misc) #1 ea 09/05/24 Unknown Rx insulin aspart U-100 100 unit/mL subcut UD HYPERGLYCEMIA 09/10/24 Unknown History subcutaneous solution (Novolog U-100 Insulin aspart) pantoprazole 40 mg tablet,delayed 40 mg PO DAILY GERD 09/10/24 09/18/24 History release simvastatin 10 mg tablet 10 mg PO DAILY HIGH CHOLESTEROL 09/10/24 Unknown History amlodipine 5 mg-benazepril 10 mg 1 cap PO DAILY blood pressure 30 09/13/24 09/18/24 Rx capsule days #0 caps ertapenem 1 gram solution for 1 g IV Q24 UTI 7 days #7 ea 09/13/24 Unknown Rx injection insulin glargine-yfgn 100 unit/mL 10 unit subcut DINNER elevated 09/13/24 Unknown History (3 mL) subcutaneous pen glucose insulin lispro 100 unit/mL 5 unit (0.05 mL) subcut TIDCM 09/13/24 Unknown Rx subcutaneous pen (Humalog KwikPen diabetes 1 month #15 mL (U-100) Insulin) insulin lispro 100 unit/mL See Protocol subcut ACHS diabetes 09/13/24 Unknown Rx subcutaneous pen (Humalog KwikPen #0 mL (U-100) Insulin) sennosides 8.6 mg-docusate sodium 2 tab PO BID constipation #0 tabs 09/13/24 Unknown Rx 50 mg tablet (Stimulant Laxative Plus) Allergy/AdvReac Type Severity Reaction Status Date / Time ciprofloxacin (From Cipro) Allergy Intermediate hives Verified 09/18/24 14:59 Sulfa (Sulfonamide Allergy Intermediate hives Verified 09/18/24 14:59 Antibiotics) Penicillins Allergy Rash Verified 09/18/24 14:59 Family History Father Diabetes Respiratory disease Mother No problems noted. 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 alcohol intake: current alcohol intake frequency: a few times a month substance use type: does not use Review of Systems (Anesthesia) ROS Narrative System reviewed and no additional complaints, except as documented.
--- NOTE | 2024-09-18 16:28 | PCM.HP.STD ---
HPI - General General Date of Admission: 09/26/24 Date of Service: 09/18/24 Chief Complaint: Anemia HPI Narrative LIVIER SMALLS, is a 79-year-old female was admitted with generalized weakness for 1 week and difficulty in ambulation after after completing rehab for 14 days and concern of UTI with increased frequency and urgency for 1 day. She was not able to get off the commode at because of weakness. She is diagnosed with sepsis secondary to urinary tract infection. She was treated with broad-spectrum antibiotics. Eventually she was transferred to oral antibiotics. She did have mild acute kidney injury which resolved. She has been in transitional care unit for chronic weakness in debility. While in the ED her hemoglobin decreased approximately 2 g. She is on Xarelto for history of DVT PE. I was consulted for evaluation of patient's new onset anemia in the setting with Hemoccult positive stools. [facility] Medical History (Updated 09/18/24 @ 16:[address] 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 Memory loss HLD (hyperlipidemia) HTN (hypertension) Pulmonary embolism, bilateral COPD (chronic obstructive pulmonary disease) Home Medications ?Medication ?Instructions ?Recorded ?Last Taken ?Type cholecalciferol (vitamin D3) 50 4,000 unit PO .COMPLEX vitamin 06/29/23 01/11/24 History mcg (2,000 unit) tablet (D3 DOTS) magnesium 200 mg tablet 400 mg PO DAILY supplement 06/29/23 09/18/24 History iron, carbonyl 45 mg tablet 45 mg PO DAILY ANEMIA #30 tabs 06/16/24 Unknown Rx tiotropium bromide 2.5 2 inh inhalation DAILY COPD 06/29/24 Unknown History mcg/actuation mist for inhalation (Spiriva Respimat) acetaminophen 325 mg tablet 650 mg (2 x 325 mg) PO Q4H PRN PRN 07/02/24 Unknown Rx Fever, pain 1-10/10 #0 tabs albuterol sulfate 2.5 mg/3 mL 2.5 mg (3 mL) inhalation Q2H PRN 07/02/24 Unknown Rx (0.083 %) solution for nebulization PRN Dyspnea, wheezing #0 mL ferrous sulfate 325 mg (65 mg 325 mg PO DAILYCM supplement #0 07/02/24 Unknown Rx iron) tablet (FeroSul) tabs levothyroxine 100 mcg tablet 100 mcg PO MoTuWeThFrSa@0600 07/02/24 Unknown Rx thyroid #0 tabs levothyroxine 150 mcg tablet 150 mcg PO Alston@0600 HYPOTHYROIDISM 07/02/24 Unknown Rx #0 tabs melatonin 3 mg tablet 3 mg PO QHS PRN PRN Insomnia #0 07/02/24 Unknown Rx tabs menthol 0.44 %-zinc oxide 20.6 % 1 applic topical 4X/DAY REDNESS #0 07/02/24 Unknown Rx topical ointment (Calmoseptine) grams metoprolol succinate 25 mg 25 mg PO DAILY HEART RATE #0 tabs 07/02/24 09/18/24 Rx tablet,extended release 24 hr nutrition tx glu 120 ml PO 4X/DAY supplement #0 mL 07/02/24 Unknown Rx intol,lac-free,soy-fiber 0.06 gram-1.2 kcal/mL liquid (Glucerna 1.2 Remy) rivaroxaban 20 mg tablet (Xarelto) 20 mg PO DAILY CLOTTING #0 tabs 07/02/24 09/14/24 Rx tolterodine 2 mg capsule,extended 2 mg PO DAILY bladder #0 caps 07/02/24 Unknown Rx release 24 hr walker (Ultra-Light Rollator misc) #1 ea 09/05/24 Unknown Rx insulin aspart U-100 100 unit/mL subcut UD HYPERGLYCEMIA 09/10/24 Unknown History subcutaneous solution (Novolog U-100 Insulin aspart) pantoprazole 40 mg tablet,delayed 40 mg PO DAILY GERD 09/10/24 09/18/24 History release simvastatin 10 mg tablet 10 mg PO DAILY HIGH CHOLESTEROL 09/10/24 Unknown History amlodipine 5 mg-benazepril 10 mg 1 cap PO DAILY blood pressure 30 09/13/24 09/18/24 Rx capsule days #0 caps ertapenem 1 gram solution for 1 g IV Q24 UTI 7 days #7 ea 09/13/24 Unknown Rx injection insulin glargine-yfgn 100 unit/mL 10 unit subcut DINNER elevated 09/13/24 Unknown History (3 mL) subcutaneous pen glucose insulin lispro 100 unit/mL 5 unit (0.05 mL) subcut TIDCM 09/13/24 Unknown Rx subcutaneous pen (Humalog KwikPen diabetes 1 month #15 mL (U-100) Insulin) insulin lispro 100 unit/mL See Protocol subcut ACHS diabetes 09/13/24 Unknown Rx subcutaneous pen (Humalog KwikPen #0 mL (U-100) Insulin) sennosides 8.6 mg-docusate sodium 2 tab PO BID constipation #0 tabs 09/13/24 Unknown Rx 50 mg tablet (Stimulant Laxative Plus) Allergy/AdvReac Type Severity Reaction Status Date / Time ciprofloxacin (From Cipro) Allergy Intermediate hives Verified 09/18/24 14:59 Sulfa (Sulfonamide Allergy Intermediate hives Verified 09/18/24 14:59 Antibiotics) Penicillins Allergy Rash Verified 09/18/24 14:59 Family History Father Diabetes Respiratory disease Mother No problems noted. 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 alcohol intake: current alcohol intake frequency: a few times a month substance use type: does not use ROS Constitutional Constitutional: Reports weakness; Denies chills, fever(s) or weight gain ENT HEENT: Denies headache(s), nasal congestion or nasal discharge Cardiovascular Cardiovascular: Denies chest pain or palpitations Respiratory/Chest Respiratory/Chest: Denies cough, excessive phlegm production or shortness of breath with exertion Gastrointestinal Gastrointestinal: Denies abdominal pain, nausea or vomiting Genitourinary Genitourinary: Denies dysuria Musculoskeletal Musculoskeletal: Denies joint pain or joint swelling Integumentary Integumentary: Denies rash or wounds Neurologic Neurologic: Denies focal weakness, numbness or tingling Psychiatric Psychiatric: Denies anxiety, auditory hallucinations, depression, homicidal ideation or suicidal ideation Vital Signs Vital Signs Vital Signs: 09/18/24 15:00 09/18/24 15:00 09/18/24 15:19 Temperature 97.3 F L 97.3 F L Temperature Source Temporal Pulse Rate 75 75 Respiratory Rate 18 18 Respiratory Pattern Normal Blood Pressure 127/59 H 127/59 H Blood Pressure Mean 81 Blood Pressure Source Monitor Blood Pressure Position Supine Blood Pressure Location Left Arm Pulse Ox 99 99 Oxygen Delivery Method Nasal Cannula Oxygen Flow Rate (L/min) 3 3 Weight Weight: 150 lb Body Mass Index (BMI) 25.0 Physical Exam Narrative Feeling well, no fever, no abd pain, did have loose stool this AM Const alert and no apparent distress General Appearance: cooperative Resp normal air movement and clear to auscultation bilaterally Cardio regular rate and regular rhythm GI soft to palpation, non-tender and non-distended Skin no rashes or lesions noted Assessment & Plan Assessment/Plan (1) Iron deficiency anemia: PLAN: 79-year-old with multiple comorbidities including Alzheimer disease, atrial fibrillation, history of DVT be currently on Xarelto therapy who has been having worsening anemia. Patient did not want to undergo a prep in order to evaluate her upper and lower GI tract. Therefore we will evaluate her upper GI tract and if that is negative I will discuss possibly doing a colonoscopy while she is in transitional care unit. Thank you (2) Atrial fibrillation:
--- NOTE | 2024-09-18 17:00 | PCM.POST.ANE ---
Anesthesia: Postop Eval I Current Vital Signs Temperature: 97.6 F Pulse Rate: 75 Blood Pressure: 80/40 Respiratory Rate: 16 Pulse Ox: 92 Oxygen Delivery Method: Room Air Assessment Airway patent: Yes Spontaneous unlabored respirations: Yes Mental status: Asleep nausea: No Vomiting: No Anesthesia Complication: No Fluid Hydration Crystalloid volume administer (ml): 30 Total IV fluid infused: 30 Progress Note Anesthesia document: Postop Eval 1 completed: Yes
--- NOTE | 2024-09-18 17:30 | PCM.POSTANE2 ---
Anesthesia Postop Eval I Sum Postop Eval Completion status Anesthesia document: Postop Eval 1 completed: Yes Anesthesia Postop Eval I Summary Anesthesia Postop Eval I Summary: Anesthesia Postop Eval I: Assessment Summary Airway patent Yes 09/18/24 17:01 [email or web address] Spontaneous unlabored Yes 09/18/24 17:01 [email or web address] respirations Mental status Asleep 09/18/24 17:01 [email or web address] nausea No 09/18/24 17:01 [email or web address] Vomiting No 09/18/24 17:01 [email or web address] Anesthesia Postop Eval I: Fluid Summary Crystalloid volume administer 30 09/18/24 17:01 [email or web address] (ml) Colloids volume administered ( ml) Blood Product volume administered (ml) Total IV fluid infused 30 09/18/24 17:01 [email or web address] Anesthesia Postop Eval I: Summary Notes Anesthesia Complication No 09/18/24 17:01 [email or web address] Anesthesia Complication Comment: Post-operative progress note Anesthesia: Postop Eval II Evaluation Mental status: Awake Pain Level: 0 nausea: No Vomiting: No
== END 2024-09-18 17:45 | disposition home or self-care (01) ==
LOC: EN 16:13 → AC 16:13
PROVIDERS: PCP Internal Medicine; Referring Provider Internal Medicine; Visit Provider Internal Medicine Gastroenterology
PROC: 0DJ08ZZ Inspection of Upper Intestinal Tract, Via Natural or Artificial Opening Endoscopic (ICD-10-PCS; CPT 43235; principal; 2024-09-18 15:25)
DX: K31.811 Angiodysplasia of stomach and duodenum with bleeding (principal); G30.9 Alzheimer's disease, unspecified; F02.80 Dementia in other diseases classified elsewhere, unspecified severity, without behavioral disturbance, psychotic disturbance, mood disturbance, and anxiety; J44.9 Chronic obstructive pulmonary disease, unspecified; I48.0 Paroxysmal atrial fibrillation; E10.9 Type 1 diabetes mellitus without complications; Z79.4 Long term (current) use of insulin; D50.9 Iron deficiency anemia, unspecified; I10 Essential (primary) hypertension; K21.9 Gastro-esophageal reflux disease without esophagitis; E03.9 Hypothyroidism, unspecified; E78.5 Hyperlipidemia, unspecified; M81.0 Age-related osteoporosis without current pathological fracture; Z88.1 Allergy status to other antibiotic agents; Z88.2 Allergy status to sulfonamides; Z88.0 Allergy status to penicillin; Z90.49 Acquired absence of other specified parts of digestive tract; Z86.19 Personal history of other infectious and parasitic diseases; Z79.01 Long term (current) use of anticoagulants; Z86.718 Personal history of other venous thrombosis and embolism; Z87.440 Personal history of urinary (tract) infections; Z86.711 Personal history of pulmonary embolism; Z79.890 Hormone replacement therapy; Z79.899 Other long term (current) drug therapy; Z87.891 Personal history of nicotine dependence
CPT/HCPCS: 43235; J2405

== ENCOUNTER → 2024-09-18 | Outpatient (CLI) | payer MEDICARE, OTHER, SELFPAY ==
--- NOTE | 2024-09-18 19:40 | CT_ITS ---
INDICATION: CONFUSION POST FALL EXAMINATION: CT BRAIN - CT Head or Brain W/O Contrast Injection TECHNIQUE: Multiple axial images were obtained of the head without intravenous contrast. A radiation dose optimization technique was used for this scan. IV Contrast dosage and agent: None. COMPARISON: 09/17/2024 FINDINGS: BRAIN PARENCHYMA: No intra- or extra-axial hemorrhage. No evidence of acute infarct. No intracranial mass or mass effect. There is preservation of the maldonado/white matter interface. Posterior fossa structures are unremarkable. Stable volume loss with low attenuation of the periventricular white matter typical of chronic small vessel disease. CSF SPACES: Stable No hydrocephalus. Basal cisterns are patent. CALVARIUM, SKULL BASE, PARANASAL SINUSES AND MASTOID AIR CELLS: Clear. No acute fracture. 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 CT/Brain/Head without Contrast IMPRESSION: Volume loss with chronic white matter changes. No acute intracranial findings. Electronically Signed: Vinay Da Silva MD at 21:41 EST ,
== END | disposition home or self-care (01) ==
LOC: CT 19:02
PROVIDERS: PCP Internal Medicine; Referring Provider Family Medicine Geriatric Medicine; Visit Provider Family Medicine Geriatric Medicine
DX: R41.0 Disorientation, unspecified (principal); S09.90XA Unspecified injury of head, initial encounter; W19.XXXA Unspecified fall, initial encounter
CPT/HCPCS: 70450

== ENCOUNTER 2024-12-18 10:12 | Outpatient (CLI) | payer MEDICARE, OTHER, SELFPAY ==
[2024-12-19 02:11] LABS: ALB/GLOB Ratio 0.9 RATIO (0.9-2.4); AST(SGOT) 19 U/L (<=31); Alanine Aminotransfer ALT/SGPT 13 U/L (<=34); Albumin, Serum 3.4 g/dL (3.4-4.8); Alkaline Phosphatase 92 U/L (35-104); Anion Gap 16 (5-15); BUN 25 mg/dL (4-19); BUN/Creat Ratio 23.5 RATIO (10-20); Calcium 9.4 mg/dL (7.6-11.0); Carbon Dioxide 23.5 mmol/L (22.0-29.0); Chloride 99 mmol/L (96-108); Cholesterol 161 mg/dL (<=200); Creatinine, Serum 1.1 mg/dL (0.6-1.0); EST Glomerular Filtration Rate 53 (>60); Globulin 3.7 g/dL (2.2-4.2); Glucose 211 mg/dL (70-99); High Density Lipoprotein 52 mg/dL; Potassium 4.2 mmol/L (3.3-5.1); Sodium Level 138 mmol/L (133-145); Total Bilirubin 0.17 mg/dL (0.00-1.30); Triglycerides 110 mg/dL; Very Low Density Lipoprotein 22 mg/dL (5-40)
[2024-12-19 05:42] LABS: Vitamin D,25 Hydroxy 56.7 ng/mL (30-100)
== END 2024-12-18 23:59 | disposition home or self-care (01) ==
PROVIDERS: PCP Internal Medicine; Referring Provider Nurse Practitioner Family; Visit Provider Nurse Practitioner Family
DX: E55.9 Vitamin D deficiency, unspecified (principal); E10.65 Type 1 diabetes mellitus with hyperglycemia; E03.9 Hypothyroidism, unspecified
CPT/HCPCS: 36415; 80053; 80061; 82306; 84439; 84443

== ENCOUNTER 2025-04-22 12:10 | Outpatient (CLI) | payer MEDICARE, OTHER, SELFPAY ==
[2025-04-22] MEDS: 0.9% NaCl Peripheral Flush Adult IV (12:42)
[2025-04-22] MEDS: Zoledronic Acid 5 MG 100 ML 300 MG IV (12:42)
[2025-04-22 12:45] VITALS: BP 125/53; PULSE 86; RESP 16; TEMP 36.8; O2SAT 92; BMI 28.8
[2025-04-22 13:21] VITALS: BP 114/46; PULSE 86; RESP 16
== END 2025-04-22 23:59 | disposition home or self-care (01) ==
LOC: MEDOUTP 12:14
PROVIDERS: PCP Internal Medicine; Referring Provider Internal Medicine Endocrinology, Diabetes & Metabolism; Visit Provider Internal Medicine Endocrinology, Diabetes & Metabolism
DX: M81.0 Age-related osteoporosis without current pathological fracture (principal)
CPT/HCPCS: 96365; A4216; J3489

== ENCOUNTER 2025-05-06 16:29 | Outpatient (CLI) | payer MEDICARE, OTHER, SELFPAY ==
[2025-05-06 18:51] LABS: Hematocrit 31.8 % (37-47); Hemoglobin 9.7 g/dL (12.0-15.0); Immature Granulocytes Count 0.030 X10^3/uL (0.0-0.0); Mean Corp Hgb Conc 30.5 g/dL (32-36); Mean Corpuscular Volume 82.2 fL (81-99); Mean Platelet Vol. 10.4 fl (6.2-12.0); NRBC Flagged by Analyzer 0 % (0-5); Platelet Count 415 K/mm3 (150-450); RBC Distribution Width CV 17.6 % (11.6-14.6); RBC Distribution Width SD 53.2 fl (35.1-43.9); Red Blood Count 3.87 M/mm3 (4.2-5.4); White Blood Count 9.2 K/mm3 (4.4-11.0)
[2025-05-06 19:11] LABS: AST(SGOT) 16 U/L (<=31); Alanine Aminotransfer ALT/SGPT 11 U/L (<=34); Albumin, Serum 3.5 g/dL (3.4-4.8); Alkaline Phosphatase 86 U/L (35-104); Anion Gap 11 (5-15); BUN 33 mg/dL (4-19); BUN/Creat Ratio 25.5 RATIO (10-20); Calcium,Total 9.0 mg/dL (7.6-11.0); Carbon Dioxide 25.8 mmol/L (21.0-32.0); Chloride 101 mmol/L (98-108); Ferritin 19 ng/mL (22-378); Globulin 3.5 g/dL (2.2-4.2); Glucose 106 mg/dL (70-99); Potassium 4.8 mmol/L (3.3-5.1)
[2025-05-06 19:40] LABS: Iron 21 ug/dL (50-170); Iron Binding Capacity,Total 298 ug/dL (250-450); Iron Binding Capacity,Unsat 277 ug/dL (228-428); LDH 153 U/L (84-246)
[2025-05-06 19:52] LABS: Creatinine, Urine (random) 64.70 mg/dL (28.00-217.00); Microalbumin,Random Urine 75.3 mg/L (<20 mg/L)
--- OUTSIDE RECORDS SUMMARY | 2025-05-06 23:17 | XMS RPT_ITS | CCD ---
Author Organization [facility] CliniSyut Care Team Providers Care Heavy Equipment Field Mechanic Name Role Phone Shena Jeffers DO Unavailable Joselin Gtzoster Unavailable Ruth Castellano LPN Unavailable Unavailable Unavailable Unavailable JUAN ANTONIO ELIZALDE Unavailable Gravomer RODRIGUEZ, Saray Unavailable Unavailable Ciesa VICE PRESIDENT MARKETING & DEVELOPMENT, Sindhu Unavailable Dr. Blas Gould Unavailable [phone] Cristobal Dodson Unavailable moe Casiano Unavailable Unavailable Manchak ESCALATOR ATTENDANT, Krystal Unavailable Unavailable Fast DO, Princess A Unavailable Dr. Shena Jeffers Primary Care Provider Dr. Stephen Bee Attending Provider Julianna SECURITY RISK ANALYST, SECURITY RISK ANALYST-C Maritza Referring Provider Dr. Luis Armando Ashley Emergency Provider Dr. Roxi Velázquez Attending Provider Dr. Roxi Velázquez Admit Provider Dr. Eder Stovall Attending Provider Unavailable Dr. Eder Stovall Other Provider Unavailable Dr. Jose Jerome Attending Provider [phone] Jimmie Pinto Emergency Provider Dr. Roxanne Saxena Attending Provider Dr. Roxanne Saxena Admit Provider Dr. Roxanne Saxena Referring Provider Dr. Dominic Smith Attending Provider Dr. Dominic Smith Other Provider Ruperto, Dr. Higgins Other Provider Ruperto, Dr. Higgins Attending Provider Dr. Katerina Barraza Emergency Provider Dr. Roxanne Saxena Other Provider Dr. Shena Jeffers Primary Care Provider 1([facility] [phone] Dr. Stephen Bee Attending Provider 1([facility])[phone] Julianna SECURITY RISK ANALYST, SECURITY RISK ANALYST-C Maritza Referring Provider Dr. Shena Jeffers Primary Care Provider Dr. Chaitanya Rogers Emergency Provider Dr. Roxi Velázquez Admit Provider Dr. Roxi Velázquez Attending Provider 1([facility])[phone] Roxi Velázquez Other Provider Dr. Shanita Lagos Attending Provider Dr. Shanita Lagos Other Provider Dr. Fracisco Zambrano Attending Provider Shena Jeffers DO Unavailable Haresh Ceja Unavailable Taylor Thrasher MA Unavailable Unavailable Slarb LABELING STRATEGIST, Amanda Unavailable Unavailable Unavailable Unavailable Dr. Shena Jeffers Primary Care Provider 1([facility] )[phone] Dr. Roxanne Saxena Admit Provider Dr. Roxanne Saxena Attending Provider Dr. Roxanne Saxena Referring Provider Dr. Dominic Smith Attending Provider 1([facility])[phone] Dominic Smith Other Provider Ruperto, Dr. Higgins Other Provider Ruperto, Dr. Higgins Attending Provider Dr. Osiel Johnston Referring Provider [phone] Shena Jeffers Referring Provider Dr. Haresh Ceja Attending Provider [place] ESCALATOR ATTENDANT, Kayela Unavailable Unavailable Dr. Shena Jeffers Primary Care Provider [phone] EDDIE Velasquez Attending Provider Dr. Stephen Bee Attending Provider Dr. Shena Jeffers Primary Care Provider [phone] Dr. Chaitanya Rogers Emergency Provider Dr. Roxi Velázquez Admit Provider Dr. Osiel Johnston Emergency Provider Ruperto, Dr. Higgins Admit Provider Dr. Ronaldo Hickey Attending Provider Ruperto, Dr. Higgins Other Provider Dr. Javy Khan Attending Provider Dr. Javy Khan Other Provider Dr. Shena Jeffers Primary Care Provider [phone] Dr. Fracisco Zambrano Attending Provider Patti Mckeon LPN Unavailable Unavailable Dr. Shena Jeffers Primary Care Provider [phone] Dr. Shena Jeffers Referring Provider EDDIE Velasquez Attending Provider Dr. Stephen Bee Attending Provider [phone] Fracisco Zambrano Attending Provider Dr. Osiel Johnston Emergency Provider Dr. Ronaldo Hickey Admit Provider Dr. Ronaldo Hickey Attending Provider Ruperto, Dr. Higgins Other Provider Dr. Javy Khan Attending Provider Dr. Javy Khan Other Provider Dr. Manjeet Ponce Emergency Provider [phone] Dr. Eder Stovall Admit Provider Unavailable Dr. Eder Stovall Attending Provider Unavailable Wilman, Dr. Gaines Other Provider Unavailable Dr. Shena Jeffers Primary Care Provider Dr. Shena Jeffers Referring Provider EDDIE Velasquez Attending Provider Dr. Dallas Chong Attending Provider [phone] Haresh Ceja Attending Provider Dr. Osiel Johnston Emergency Provider Dr. Dallas Paulson Attending Provider Dr. Dallas Paulson Admit Provider Dr. Dallas Paulson Other Provider Dr. Lizz Maravilla Attending Provider Dr. Lizz Maravilla Other Provider Dr. Alvarado Araujo Attending Provider Haydee Sullivan MA Unavailable Unavailable Shena Jeffers DO Attending Unavailable Shena Jeffers DO Consulting Unavailable Dr. Shena Jeffers Primary Care Provider [phone] Dr. Shena Jeffers Referring Provider Dr. Dallas Chong Attending Provider [phone] Haresh Ceja Attending Provider [phone] Osiel Johnston Emergency Provider [phone] Dr. Dallas Paulson Attending Provider Dr. Dallas Paulson Admit Provider Dr. Dallas Paulson Other Provider Dr. Lizz Maravilla Attending Provider Dr. Lizz Maravilla Other Provider Dr. Alvarado Araujo Attending Provider Dr. Dallas Paulson Referring Provider Dr. Stephen Bee Attending Provider EDDIE Velasquez Attending Provider Ishmael WEBB, J Luis Unavailable Unavailable Dr. Shena Jeffers Primary Care Provider Dr. Shena Jeffers Referring Provider Dr. Shena Jeffers [facility] Un[facility] Unavailable Dr. Shena Jeffers Primary Care Provider Dr. Shena Jeffers Referring Provider EDDIE Velasquez Attending Provider Dr. Lb Serna Emergency Provider Dr. Roxanne Saxena Admit Provider Dr. Roxanne Saxena Other Provider Dr. Hosea Smith Attending Provider Dr. Hosea Smith Other Provider Demond, Dr. Shanita Helm Attending Provider Korfredis, Dr. Shanita Helm Other Provider [facility] Unavailable Dr. Shena Jeffers Primary Care Provider Dr. Shena Jeffers Referring Provider EDDIE Velasquez Attending Provider Dr. Lb Serna Emergency Provider Dr. Roxanne Saxena Admit Provider Dr. Roxanne Saxena Other Provider Dr. Hosea Smith Attending Provider Dr. Hosea Smith Other Provider Demond, Dr. Shanita Helm Attending Provider Demond, Dr. Shanita Helm Other Provider Dr. Shena Jeffers Primary Care Provider Dr. Shena Jeffers Referring Provider Ron SECURITY RISK ANALYST-C Delfina Attending Provider Zeyad YBARRA, Dr. Chatterjee Primary Care Provider Zeyad YBARRA, Dr. Chatterjee Referring Provider Ron SECURITY RISK ANALYST-C, Delfina Attending Provider Elizabet YBARRA, Dr. Velazquez Emergency Provider Eber YBARRA, Dr. Diane Admit Provider Dr. Roxi Velázquez DO Other Provider Ruperto MCKEON, Dr. Higgins Attending Provider Aury MCKEON, Dr. Yap Other Provider Eber YBARRA, Dr. Diane Attending Provider [phone] Caryn MCKEON, Dr. Hernandez Other Provider Elsa MCKEON, Dr. Magaña Other Provider Harmeet MCKEON, Dr. Oleary Other Provider Dr. Dominic Smith DO Other Provider Kareem MCKEON, Dr. Eder Funes Other Provider Montez MCKEON, Dr. Heaton Other Provider Farzana MCKEON, Dr. Ho Other Provider Mamadou MCKEON, Dr. Freeman Other Provider [phone] Pratik MCKEON, Dr. Aponte Other Provider Dash MCKEON, Dr. Gomes Other Provider Radha MCKEON, Dr. Joseph Other Provider Dr. Ana Lilia Singleton MD [facility] Linn MD, Dr. Orona Other Provider Katja MCKEON, Dr. Smith Other Provider Ana MCKEON, Dr. Cedillo Other Provider Hilary DO, Dr. Chawla Other Provider Salma MCKEON, Dr. Macias Other Provider [phone] Masoud DO, Dr. Stockton Other Provider Raleigh MCKEON, Dr. Hurst Other Provider Dimitri MCKEON, Dr. Acevedo Other Provider Ruperto MCKEON, Dr. Higgins Other Provider [phone] Luis YBARRA, Dr. Alfaro Attending Provider Ruperto MCKEON, Dr. Higgins Referring Provider Arnold MCKEON, Dr. Camilo Gamez Admit Provider Arnold MCKEON, Dr. Camilo Gamez Attending Provider Steven MCKEON, Dr. Iraheta Attending Provider Steven MCKEON, Dr. Iraheta Emergency Provider de Surjit DO, Dr. Gaines Attending Provider Unav ailable Friend DO, Dr. Piña Attending Provider Friend , Dr. Piña Other Provider Arnold MCKEON, Dr. Camilo Gamez Referring Provider Arnold MCKEON, Dr. Camilo Gamez Other Provider Ghada YBARRA, Dr. Maritza Daly Attending Provide r Jm Denise MD Attending Provider Unavailable Delfina Mcgee Referring Provider Dr. Shena Jeffers DO Primary Care Provider [phone] Dr. Shena Jeffers DO Referring Provider Ron SECURITY RISK ANALYST-Delfina Morales Attending Provider Ron SECURITY RISK ANALYST-CDelfina Referring Provider Enid MCKEON, Dr. Rivers Attending Provider [phone] Enid MCKEON, Dr. Rivers Referring Provider Zeyad YBARRA, Dr. Chatterjee Primary Care Provider Zeyad YBARRA, Dr. Chatterjee Referring Provider Ron IVORYCDelfina Attending Provider King LINDA, Dr. Hutson Attending Provider [phone] Haresh Ceja MD Referring Provider Delfina Velasquez Attending Unavailable Zeyad, Shena Referring Unavailable Zeyad, Shena Primary Care Unavailable Eber, Roxi Admitting Unavailable Eber, Roxi Consulting Unavailable Eder Stovall Attending Unavailable Zeyad, Shena Primary Care Unavailable Eder Stovall Consulting Unavailable Wang Valentin Attending Unavailable Eder Stovall Referring Unavailable Zeyad, Shena Primary Care Unavailable Shyla Reynaga Attending Unavailabl e Silvestre Rossi Attending Unavailable Zeyad, Shena Referring Unavailable Zeyad, Shena Primary Care Unavailable Zeyad, Shena Referring Unavailable Silvestre Rossi Attending Unavailable Zeyad, Shena Primary Care Unavailable Zeyad, Shena Primary Care Unavailable Harris Esequiel Attending Unavailable Harris Esequiel Attending Unavailable Zeyad, Shena Primary Care Unavailable Arnold, Camilo Chi Attending Unavailable Arnold, Camilo Chi Referring Unavailable Zeyad, Shena Primary Care Unavailable Zeyad, Shena Primary Care Unavailable Roxanne Saxena Attending Unavailable Eber, Roxi Admitting Unavailable Eber, Roxi Consulting Unavailable Eder Stovall Attending Unavailable Zeyad, Shena Primary Care Unavailable Wang Valentin Attending Unavailable Zeyad, Shena Referring Unavailable Zeyad, Shena Primary Care Unavailable Zeyad, Shena Primary Care Unavailable Fracisco Jeffers Consulting Unavailable Arnold, Camilo Chi Attending Unavailable Arnold, Camilo Chi Admitting Unavailable Oleghe OLS, Efewongbe Attending Unavailabl e Zeyad, Shena Primary Care Unavailable Zeyad, Shena Primary Care Unavailable Oleghe OLS Efewongbe Attending Unavailabl e Zeyad, Shena Primary Care Unavailable Oleghe MABEL Efjose robertobe Attending Unavailabl e Zeyad, Shena Primary Care Unavailable Shyla Reynaga Attending UnavailJm Velasquez Attending Unavailable Zeyad, Shena Primary Care Unavailable Haresh Ceja Referring Unavailable Haresh Ceja Attending Unavailable Zeyad, Shena Primary Care Unavailable RonRicon Referring Unavailable Delfina Velasquez Attending Unavailable Zeyad, Shena Primary Care Unavailable Silvestre Rossi Attending Unavailable Prah, Silvestre Referring Unavailable Zeyad, Shena Primary Care Unavailable Zeyad, Shena Primary Care Unavailable Oleghe OLS, Efewongbe Attending Unavailabl e Zeyad, Shena Primary Care Unavailable Oleghe OLS, Efewongbe Attending Unavailabl e Zeyad, Shena Referring Unavailable Zeyad, Shena Attending Unavailable Zeyad, Shena Primary Care Unavailable Zeyad, Shena Attending Unavailable Zeyad, Shena Primary Care Unavailable Zeyad, Shena Primary Care Unavailable White, Roxanne L Consulting Unavailable White, Roxanne L Admitting Unavailable Javy Khan Attending Unavailable Ruperto, Ronaldo Consulting Unavailable Zeyad, Shena Primary Care Unavailable Eber Roxi Consulting Unavailable Eber, Roxi Admitting Unavailable Ruperto, Ronaldo Attending Unavailable Fracisco Jeffers Consulting Unavailable Zeyad, Shena Primary Care Unavailable White, Roxanne L Admitting Unavailable Ruperto, Ronaldo Attending Unavailable White, Roxanne L Consulting Unavailable Ruperto, Ronaldo Consulting Unavailable Zeyad, Shena Primary Care Unavailable Oleghe MABEL, Efewongbe Attending Unavailabl e Zeyad, Shena Primary Care Unavailable Sue Orozcoongbe Attending Unavailable Zeyad, Shena Primary Care Unavailable Zoë Nguyen NP Attending Unavailable Delfina Velasquez Attending Unavailable Zeyad, Shena Referring Unavailable Zeyad, Shena Primary Care Unavailable Delfina Velasquez Attending Unavailable Zeyad, Shena Referring Unavailable Zeyad, Shena Primary Care Unavailable Fracisco Jeffers Consulting Unavailable Arnold, Camilo Chi Admitting Unavailable Maritza Urrutia Attending Unavaila ble Zeyad, Shena Primary Care Unavailable Arnold, Camilo Chi Consulting Unavailable Friend, Wang Attending Unavailable Friend, Wang Consulting Unavailable Zeyad, Shena Referring Unavailable Zeyad, Shena Primary Care Unavailable David Rubin Consulting Unavailable Zeyad, Shena Primary Care Unavailable Eber, Roxi Admitting Unavailable Ruperto, Ronaldo Attending Unavailable Gómez Hunter Consulting Unavailable Anirudh Ga Consulting Unavailable Dominic Smith Consulting Unavailable Eder Serna Consulting Unavailable Sudarshan Herrmann Consulting Unavailable Vic Yanes Consulting Unavailable Lydia Cedillo Consulting UnavailFadi Gross Consulting Unavailable Eliseo Bowling Consulting Unavailable Opal Garcia Consulting Unavailable Ana Lilia Singleton Consulting Unavailable Yeyo Linn Consulting Unavailable Luis Hightower Consulting Unavailable Mamadou Perez Consulting Unavailable Denton Richard Consulting Unavailable Gilberto Marsh Consulting Unavailable Mahin Meredith Consulting Unavailable Aris Storey Consulting Unavailable Curtis Mosley Consulting Unavailable Roxi Velázquez Consulting Unavailable Ronaldo Hcikey Consulting Unavailable Dominic Smith Attending Unavailable Ronaldo Hickey Referring Unavailable Fracisco Jeffers Consulting Unavailable Roxi Velázquez Attending Unavailable Roxi Velázquez Admitting Unavailable Roxi Velázquez Consulting Unavailable Shena Jeffers Primary Care Unavailable Shena Jeffers Primary Care Unavailable Eder Ramirez Attending Unavailable Roxi Velázquez Attending Unavailable Javy Khan Attending Unavailable Javy Khan Consulting Unavailable Roxi Velázquez Attending Unavailable Delfina Velasquez Attending Unavailable Shena Jeffers Referring Unavailable Shena Jeffers Primary Care Unavailable Allergies Allergy Classification Reported Allergen(s) Allergy Type Date of Onset Reaction(s) Facility (20 sources) Ciprofloxacin; Translations: [Cipro *FLUOROQUINOLONES *] Drug Allergy 2 [facility] Work Phone: (20 sources) Sulfacetamide; Translations: [Sulfa 10 *OPHTHALMIC AGENTS*] Drug Allergy [facility] Work Phone: Comment on above: [facility] (20 sources) Sulfonamides (Antibiotic); Translations: [Sulfa (Sulfonamide Antibiotics)] Allergy to substance 2 [facility] (18 sources) Penicillin Drug Allergy Rash [facility]; [facility] Work Phone: (3 sources) Penicillins Allergy to substance 5 [facility] (1 source) Ciprofloxacin Drug Allergy 5 [facility] (1 source) Penicillins Drug allergy (disorder) 5 [facility] Medications Current Medications Medication Drug Class(es) Dates Sig (Normalized) Sig (Original) acetaminophen 500 mg oral tablet (6 sources) Start: 10-04-2024 take 2 tablets by mouth every six hours as needed for pain Acetaminophen 500 mg Tablet Active 1000 mg PO EVERY 6 HOURS NEEDED as needed for Pain Score 1-10 0 0 October 04, 2024 1:00am Start: 07-02-2024 End: 10-04-2024 take 2 tablets by mouth every four hours as needed for pain Acetaminophen 325 mg Tablet Discontinued 650 mg PO EVERY 4 HOURS NEEDED as needed for Fever, pain 1-10/10 0 0 July 02, 2024 12:00am October 04, 2024 8:14pm albuterol 0.83 mg/ml inhalation solution (20 sources) beta2-Adrenergic Agonist Start: 07-02-2024 take 2.5 mg by inhalation every two hours as needed for dyspnea Albuterol Sulfate 2.5 mg /3 mL (0.083 %) Solution For Nebulization Active 2.5 mg INHALATION EVERY 2 HOURS NEEDED as needed for Dyspnea, wheezing 0 0 July 02, 2024 12:00am Start: 07-02-2024 Start: 06-03-2022 take 2 puff(s) by in halation once daily as needed Proventil HFA 108 (90 Base) MCG/ACT Inhalation Aerosol Solution 2 puff prn Puff daily for 30 days Quantity: 1 {Each} Refills: 3 Ordered: 03-Jun-2022 Shena Jeffers DO, DO, Kathleen Start : 03-Jun-2022 Active Start: 09-08-2021 take 1 puff(s) by inhalation o nce Albuterol Sulfate (Proventil Hfa) 90 mcg/actuation HFA aerosol inhaler Active 1 PUFF INHALATION ONCE September 08, 2021 11:34am Start: 09-08-2021 End: 06-07-2022 Albuterol Sulfate (Proventil Hfa) 90 mcg/actuation HFA aerosol inhaler Discontinued 1 NMA INHALATION ONCE as needed for shortness of breath or wheezing September 08, 2021 1:00am June 07, 2022 10:47am Start: 09-08-2021 End: 06-07-2022 Start: 09-08-2021 End: 06-07-2022 take 1 puff(s) by inhalation once Albuterol Sulfate (P roventil Hfa) 90 mcg/actuation HFA aerosol inhaler Discontinued 1 PUFF INHALATION ONCE September 08, 2021 1:00am June 07, 2022 10:47am Start: 07-15-2021 Proventil HFA 108 (90 Base) MCG/ACT Inhalation Aerosol Solution 2 puff prn for 0 days Refills: 0 Ordered: 15-Jul-2021 Maritza Levine Start : 15-Jul-2021 Active amLODIPine 5 mg / benazepril hydrochloride 10 mg oral capsule (20 sources) Dihydropyridine Calcium Channel Gypsy, Angiotensin Converting Enzyme Inhibitor Start: 09-08-2021 End: 09-13-2024 Amlodipine-Benazepril 5-10 mg capsule Active 1 NMA PO DAILY 0 30 0 September 13, 2024 4:07pm blood pressure Hold for SBP less than 130 mmHg Comment on above: generic [place] cholecalciferol 0.05 mg oral tablet (9 sources) Vitamin D Start: 06-29-2023 Cholecalciferol (Vitamin D3) (D3 Dots) 50 mcg (2,000 unit) tablet Active 4000 U PO .COMPLEX June 29, 2023 12:00am vitamin 4,000 units orally every other day; Start: 06-29-2023 Cholecalcifero l (Vitamin D3) (D3 Dots) 50 mcg (2,000 unit) tablet Active 125 MCG PO DAILY June 28, 2023 11:00pm ferrous sulfate 325 mg oral tablet (2 sources) Start: 07-02-2024 take 1 tablet by mouth once daily at mealtime Ferrous Sulfate (Ferosul) 325 mg (65 mg iron) Tablet Active 325 mg PO DAILY WITH MEALS 0 0 July 02, 2024 12:00am supplement Flash Glucose Scanning [place] (Freestyle Alivia 2 [place]) mis (2 sources) Start: 12-03-2024 Flash Glucose Scanning [place] (Freestyle Alivia 2 [place]) misc Active 0 .Route 1 0 December 03, 2024 1:00am As directed Start: 12-03-2024 Flash Glucose Scanning [place] (Freestyle Alivia 2 [place]) misc Active 0 .Route 1 December 03, 2024 1:00am As directed Insulin Glargine-Yfgn (3 sources) Start: 06-07-2022 Insulin Glargi ne-Yfgn Active 45 UNIT SC AT BEDTIME 0 June 07, 2022 12:00am 3 ml insulin lispro 100 unt/ml pen injector (20 sources) Insulin Analog Start: 10-04-2024 Insulin Lispro (Humalog Kwikpen Insulin) 100 unit/mL Insulin Pen Active 7 U SC THREE TIMES DAILY BEFORE MEALS 0 0 October 04, 2024 1:00am Start: 09-13-2024 End: 10-04-2024 Insulin Lispro (Humalog Kwik pen Insulin) 100 unit/mL Insulin Pen Discontinued 0 U SC BEFORE MEALS AND AT BEDTIME 0 0 September 13, 2024 1:00am October 04, 2024 8:15pm diabetes Please contact the information source for Protocol details. Start: 09-13-2024 End: 10-04-2024 Insulin Lispro (Humalog Kwik pen Insulin) 100 unit/mL insulin pen Discontinued 5 U SC 3 TIMES DAILY WITH MEALS September 13, 2024 1:00am October 04, 2024 8:14pm diabetes Hold if glucose less than 130 mg/dl Start: 07-02-2024 End: 09-10-2024 Insulin Lispro (Humalog Kwik pen Insulin) 100 unit/mL Insulin Pen Discontinued 0 U SC BEFORE MEALS AND AT BEDTIME 0 0 July 02, 2024 12:00am September 10, 2024 8:11pm Please contact the information source for Protocol details. Start: 07-02-2024 End: 09-10-2024 Insulin Lispro (Humalog Kwik pen Insulin) 100 unit/mL Insulin Pen Discontinued 6 U SC THREE TIMES DAILY BEFORE MEALS 0 0 July 02, 2024 12:00am September 10, 2024 8:11pm Start: 11-22-2022 End: 06-29-2023 Insulin Lispro 100 unit/mL I nsulin Pen Discontinued U SC BEFORE MEALS AND AT BEDTIME November 22, 2022 1:00am June 29, 2023 7:49pm dm 150-199 2 units 200-259 4 units 260-324 6 units 325-374 8 units 375-409 10 units 410-449 11 units Start: 11-22-2022 End: 06-29-2023 Insulin Lispro Discontinued UNIT SC BEFORE MEALS AND AT BEDTIME November 22, 2022 1:00am June 29, 2023 7:49pm 150-199 2 units 200-259 4 units 260-324 6 units 325-374 8 units 375-409 10 units 410-449 11 units Start: 06-07-2022 Insulin Lispro (Humalog Kwikpen Insulin) 100 unit/mL Insulin Pen Active 15 UNIT SC THREE TIMES DAILY BEFORE MEALS 0 June 07, 2022 12:00am Start: 01-30-2022 End: 06-07-2022 Insulin Lispro (Humalog Kwik pen Insulin) 100 unit/mL Insulin Pen Discontinued 13 U SC THREE TIMES DAILY BEFORE MEALS 1 5 January 30, 2022 12:00am June 07, 2022 10:49am Start: 01-30-2022 End: 06-07-2022 Start: 01-30-2022 Insulin Lispro (Humalog Kwikpen Insulin) 100 unit/mL Insulin Pen Active 0 UNIT SC BEFORE MEALS AND AT BEDTIME 0 January 30, 2022 12:00am levothyroxine sodium 0.15 mg oral tablet (20 sources) l-Thyroxine Start: 07-02-2024 Levothyroxine 150 mcg Tablet Active 150 ug PO Alston@0600 0 0 July 02, 2024 12:00am HYPOTHYROIDISM Start: 04-08-2023 End: 05-08-2023 levothyroxine 100 mcg oral c apsule 1 (one) capsule qd 7 days a week for 30 days Quantity: 30 {Capsule} Refills: 0 Ordered: 08-Apr-2023 Shena Jeffers DO, DO, Kathleen Start : 08-Apr-2023 End : 08-May-2023 Inactive Comments: matthew Ceja Start: 03-10-2023 levothyroxine 100 mcg oral capsule 1 (one) capsule qd 6days a week for 0 days Quantity: 26 {Capsule} Refills: 0 Ordered: 10-Mar-2023 Shena Jeffers DO, DO, Kathleen Start : 10-Mar-2023 Active Comments: matthew Ceja Start: 03-02-2023 End: 07-02-2024 take 1 tablet by mouth once daily Levothyroxine 100 mcg tablet Discontinued 100 ug PO .qd, 1 1/2 every September 13, 2023 11:38am January 11, 2024 10:55pm 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 specified hypothyroidism Autoimmune thyroiditis Start: 12-02-2022 levothyroxine 150 mcg oral capsule 1 (one) capsule qd 6days a week for 0 days Quantity: 26 {Capsule} Refills: 0 Ordered: 02-Dec-2022 Shena Jeffers DO, DO, Kathleen Start : 02-Dec-2022 Active Comments: per Dr Ceja Start: 04-28-2022 End: 11-26-2022 take 1 tablet by mouth once daily Levothyroxine 150 mcg tablet Discontinued 150 ug PO DAILY 22 03November 11, 2022 1:49pm November 26, 2022 3:03pm 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 specified hypothyroidism Autoimmune thyroiditis thyroid Start: 04-28-2022 End: 03-02-2023 Levothyroxine 150 mcg tablet Discontinued 150 ug PO .6 days per week 22 03November 26, 2022 3:02pm March 02, 2023 2:11pm 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 specified hypothyroidism Autoimmune thyroiditis thyroid Start: 04-22-2022 End: 2022 take 1 tablet by mouth once daily Levothyroxine Sodium 200 MCG Oral Tablet 1 (one) Tablet daily for 90 days Quantity: 90 {Tablet} Refills: 0 Ordered: 22-Apr-2022 Shena Jeffers DO, DO, Kathleen Start : 22-Apr-2022 End : 21-Jul-2022 Inactive Start: 02-11-2022 take 1 tablet by yefri th once daily Levothyroxine Sodium 200 MCG Oral Tablet 1 (one) Tablet daily for 90 days Quantity: 90 {Tablet} Refills: 0 Ordered: 11-Feb-2022 Shena Jeffers DO, DO, Kathleen Start : 11-Feb-2022 Active Start: 02-10-2022 End: 04-28-2022 take 1 capsule by mouth once daily Levothyroxine 200 mcg capsule Discontinued 200 ug PO DAILY 20 01February 10, 2022 12:00am April 28, 2022 2:17pm Start: 11-27-2021 take 1 ug by mouth once daily Levothyroxine Sodium 112 MCG Oral Capsule 1 daily for 0 days Refills: 0 Ordered: 27-Nov-2021 Maritza Levine CNP Start : 27-Nov-2021 Active Start: 09-08-2021 End: 02-10-2022 take 1 tablet by mouth once daily Levothyroxine 112 mcg tablet Discontinued 112 ug PO DAILY September 08, 2021 1:00am February 10, 2022 11:26am thyroid Comment on above: per Dr Ceja Magnesium (8 sources) Start: 06-29-2023 take 2 tablets by mouth once daily Magnesium 200 mg tablet Active 400 mg PO DAILY June 29, 2023 12:00am supplement Start: 06-29-2023 take 2 tablets by mo uth once daily Magnesium 200 mg tablet Active 400 mg PO DAILY June 29, 2023 12:00am Start: 06-29-2023 take 400 mg by mouth once [place] Magnesium Active 400 MG PO DAILY June 28, 2023 11:00pm Start: 06-29-2023 take 400 mg by mouth once [place] Magnesium Active 400 MG PO DAILY June 29, 2023 12:00am 24 hr metoprolol succinate 25 mg extended release oral tablet (20 sources) beta-Adrenergic Gypsy Start: 07-02-2024 take 1 tablet by mouth once daily Metoprolol Succinate 25 mg Tablet Extended Release 24 Hr Active 25 mg PO DAILY 0 0 July 02, 2024 12:00am HEART RATE Start: 11-26-2022 End: 06-29-2023 take 1 tablet by mouth twice daily Metoprolol Tartrate 50 mg Tablet Discontinued 50 mg PO TWICE A DAY 60 30 0 November 26, 2022 1:00am June 29, 2023 7:50pm Start: 09-08-2021 take 1 tablet by yefri once daily Metoprolol Succinate (Toprol Xl) 50 mg tablet extended release 24 hr Active 50 MG PO DAILY September 08, 2021 1:00am take 1 tablet by yefri th every twenty-four hours Toprol XL 50 MG Oral Tablet Extended Release 24 Hour qd (50 MG) Active 24 hr mirabegron 25 mg extended release oral tablet (3 sources) beta3-Adrenergic Agonist Start: 12-05-2024 take 1 tablet by mouth once daily Mirabegron (Myrbetriq) 25 mg tablet extended release 24 hr Active 25 mg PO daily December 05, 2024 1:00am Potassium, Sodium Phosphates (20 sources) Start: 01-30-2022 Potassium, Sodium Phosphates Active 1 PACKET PO THREE TIMES A DAY 6 January 30, 2022 1:31pm Start: 01-30-2022 End: 05-26-2022 Potassium, Sodium Phosphates Discontinued 1 PACKET PO THREE TIMES A DAY January 29, 2022 11:00pm May 26, 2022 1:23pm Start: 01-30-2022 End: 05-26-2022 Potassium, Sodium Phosphates Discontinued 1 PACKET PO THREE TIMES A DAY January 30, 2022 12:00am May 26, 2022 2:23pm Start: 01-30-2022 Potassium, Sod ium Phosphates Active 1 PACKET PO THREE TIMES A DAY January 30, 2022 12:00am rivaroxaban 20 mg oral tablet (20 sources) Factor Xa Inhibitor Start: 12-05-2024 take 1 tablet by mouth once daily Rivaroxaban (Xarelto) 20 mg tablet Active 20 mg PO daily December 05, 2024 1:00am Start: 10-04-2024 End: 12-05-2024 take 1 tablet by mouth once daily Rivaroxaban (Xarelto) 15 mg Tablet Discontinued 15 mg PO DAILY 0 October 04, 2024 1:00am December 05, 2024 3:20pm Start: 07-02-2024 End: 10-04-2024 take 8 g by mouth once daily Rivaroxaban (Xarelto) 20 mg Tablet Discontinued 20 mg PO DAILY 0 July 02, 2024 12:00am October 04, 2024 8:16pm CLOTTING On Hold: Hold for 1 week till hemoglobin more than 8 g%. Start: 03-23-2022 End: 10-04-2024 take 1 tablet by mouth once daily Rivaroxaban (Xarelto) 20 mg tablet Discontinued 20 mg PO DAILY April 23, 2022 12:00am July 02, 2024 1:43pm blood thinner On Hold: Resume on 06/22/24. Start: 03-01-2022 take 1 tablet by yefri th once daily Xarelto 20 MG Oral Tablet 1 Tablet qd for 0 days Quantity: 30 {Tablet} Refills: 5 Ordered: 01-Mar-2022 Shena Jeffers DO, DO, Kathleen Start : 01-Mar-2022 Active Start: 11-22-2021 take 1 tablet by yefri th once daily at dinner Rivaroxaban (Xarelto) 20 mg tablet Active 20 MG PO DAILY 30 Karrie 30th, 2022 10:23am must administer with evening meal simvastatin 10 mg oral tablet (20 sources) HMG-CoA Reductase Inhibitor Start: 09-10-2024 take 1 tablet by mouth once daily Simvastatin 10 mg tablet Active 10 mg PO DAILY September 10, 2024 1:00am HIGH CHOLESTEROL Start: 09-08-2021 End: 07-02-2024 take 1 tablet by mouth once daily Simvastatin 10 mg tablet Discontinued 10 mg PO DAILY September 08, 2022 10:52am July 02, 2024 1:43pm cholesterol Walker (Ultra-Light Rollator ) misc (2 sources) Start: 09-05-2024 Walker (Ultra- Light Rollator) misc Active 0 .Route 1 0 September 05, 2024 1:00am Debility At risk for falls Other malaise History of falling debility WITH SEAT Start: 09-05-2024 Walker (Ultra- Light Rollator) misc Active 0 .Route 1 September 05, 2024 1:00am WITH SEAT 100 ml zoledronic acid 0.05 mg/ml injection (20 sources) Bisphosphonate Start: 03-07-2025 Zoledronic Wpxj-Rfceiamv-Vkemd 5 mg/100 mL piggyback Active 0 .ROUTE .COMPLEX 100 0 March 07, 2025 12:00am Osteoporosis Age-related osteoporosis without current pathological fracture 5 mg to infuse over 20 minutes IVPB; Start: 03-28-2024 End: 06-14-2024 Zoledronic Jaup-Haudceyt-Kay er 5 mg/100 mL piggyback Discontinued 0 .ROUTE .COMPLEX 100 0 March 28, 2024 12:00am June 14, 2024 7:32pm Osteoporosis Age-related osteoporosis without current pathological fracture 5 mg via IVPB over 20 minutes; Start: 11-18-2022 End: 06-29-2023 Zoledronic Neqa-Ujcjnhdu-Blk er 5 mg/100 mL piggyback Discontinued 1 NMA .Route ONCE 100 0 March 14, 2023 11:12am June 29, 2023 7:49pm infuse over 20 minutes Start: 11-18-2022 End: 06-29-2023 (17 sources) Start: 12-03-2024 Start: 09-13-2024 End: 09-13-2024 Start: 09-13-2024 End: 10-04-2024 Start: 09-10-2024 End: 09-13-2024 Start: 09-05-2024 Start: 07-02-2024 Start: 07-02-2024 End: 10-04-2024 Start: 06-29-2024 End: 07-02-2024 Start: 06-16-2024 End: 06-29-2024 Start: 06-29-2023 Start: 06-29-2023 End: 12-28-2023 Start: 11-22-2022 End: 06-29-2023 Start: 09-10-2022 End: 10-06-2022 Start: 09-08-2022 End: 09-10-2022 Start: 02-10-2022 End: 06-07-2022 Start: 01-30-2022 End: 05-26-2022 Completed/Discontinued Medications Medication Drug Class(es) Dates Sig (Normalized) Sig (Original) acetaminophen 325 mg / HYDROcodone bitartrate 5 mg oral tablet (20 sources) Opioid Agonist Start: 10-30-2021 End: 02-11-2022 take 1 tablet by mouth every six hours as needed for pain HYDROcodone-Aceta minophen 5-325 MG Oral Tablet 1 (one) Tablet q 6hr prn thoracic back pain for 0 days Quantity: 40 {Tablet} Refills: 0 Ordered: 11-Feb-2022 Taylor Thrasher MA Start : 30-Oct-2021 End : 11-Feb-2022 Inactive Comments: [id number] Comment on above: [id number] amLODIPine 5 mg oral tablet (3 sources) Dihydropyridine Calcium Channel Gypsy Start: 07-02-2024 End: 09-06-2024 take 1 tablet by mouth once daily Amlodipine 5 mg Tablet Discontinued 5 mg PO DAILY 0 0 July 02, 2024 12:00am September 06, 2024 5:06pm amoxicillin 875 mg / clavulanate 125 mg oral tablet (20 sources) Penicillin-class Antibacterial Start: 06-04-2022 End: 12-02-2022 take 1 tablet by mouth twice daily amoxicillin-pot clavulanate 875-125 mg oral tablet 1 (one) Tablet bid for 0 days Quantity: 20 {Tablet} Refills: 0 Ordered: 02-Dec-2022 Yonis Cavanaugh CMA Start : 04-Jun-2022 End : 02-Dec-2022 Inactive Start: 07-22-2021 End: 08-19-2021 take 1 tablet by mouth twice daily Amoxicillin-Pot Clavulanate 875-125 MG Oral Tablet 1 (one) Tablet bid for 0 days Quantity: 20 {Tablet} Refills: 0 Ordered: 19-Aug-2021 Mike LABELING STRATEGISTPatti Victor Start : 22-Jul-2021 End : 19-Aug-2021 Inactive apixaban 5 mg oral tablet (20 sources) Factor Xa Inhibitor Start: 02-24-2022 End: 06-07-2022 take 1 tablet by mouth twice daily Apixaban (Eliquis Dvt-Pe Treat 30d Start) 5 mg (74 tabs) tablets,dose pack Discontinued 5 mg PO TWICE A DAY 74 February 24, 2022 12:00am June 07, 2022 10:47am Start: 02-24-2022 End: 06-07-2022 Start: 11-06-2021 End: 01-20-2022 take 1 tablet by mouth twice daily Eliquis 5 MG Oral Tablet 1 (one) Tablet BID for 0 days Quantity: 60 {Tablet} Refills: 0 Ordered: 20-Jan-2022 Ruth Castellano LPN Start : 06-Nov-2021 End : 20-Jan-2022 Inactive Start: 10-30-2021 take 1 tablet by yefri twice daily Eliquis 5 MG Oral Tablet 1 (one) Tablet BID for 0 days Quantity: 60 {Tablet} Refills: 0 Ordered: 30-Oct-2021 Shena Jeffers DO, DO, Kathleen Start : 30-Oct-2021 Active Start: 10-14-2021 take 1 tablet by yefri th twice daily Eliquis 5 MG Oral Tablet 1 (one) Tablet BID for 0 days Quantity: 60 {Tablet} Refills: 0 Ordered: 14-Oct-2021 Shena Jeffers DO, DO, Kathleen Start : 14-Oct-2021 Active Start: 10-07-2021 End: 11-22-2021 take 2 tablets by mouth twice daily, then take 1 tablet by mouth twice daily Apixaban (Eliquis Dvt-Pe Treat 30d Start) 5 mg (74 tabs) tablets,dose pack Discontinued 5 mg PO TWICE A DAY 74 0 October 07, 2021 1:00am November 22, 2021 10:01am Bilateral pulmonary embolism Other pulmonary embolism without acute cor pulmonale 10 mg p.o. twice daily for 7 days, then 5 mg p.o. twice daily Start: 10-07-2021 End: 11-22-2021 aspirin 81 mg chewable tablet (20 sources) Platelet Aggregation Inhibitor, Nonsteroidal Anti-inflammatory Drug Aspirin 81 MG Ora l Tablet Chewable (81 MG) Inactive atorvastatin 10 mg oral tablet (3 sources) HMG-CoA Reductase Inhibitor Start: End: take 5 mg by mouth at bedtime Atorvastatin 10 mg Tablet Discontinued 5 mg PO AT BEDTIME 0 July 02, 2024 12:00am September 10, 2024 8:10pm Start: 07-02-2024 End: 09-10-2024 azithromycin 250 mg oral tablet (20 sources) Macrolide Antimicrobial Start: 12-08-2022 End: 01-13-2023 Zithromax Z-Ramana 250 mg oral tablet 1 (one) Tablet TAD for 0 days Quantity: 1 {Packet} Refills: 0 Ordered: 13-Jan-2023 Afshan RODRIGUEZ Marincecilia Start : 08-Dec-2022 End : 13-Jan-2023 Inactive Start: 07-15-2021 End: 08-19-2021 Zithromax Z-Ramana 250 MG Oral Tablet 1 (one) Tablet TAD for 0 days Quantity: 1 {Packet} Refills: 0 Ordered: 19-Aug-2021 Patti Mckeon LPN Start : 15-Jul-2021 End : 19-Aug-2021 Inactive benzonatate 100 mg oral capsule (20 sources) Non-narcotic Antitussive Start: 07-15-2021 End: 08-19-2021 take 1 capsule by mouth three times daily as needed for cough Tessalon Perles 100 MG Oral Capsule 1 (one) Capsule tid prn for cough for 0 days Quantity: 30 {Capsule} Refills: 0 Ordered: 19-Aug-2021 Patti Mckeon LPN Start : 15-Jul-2021 End : 19-Aug-2021 Inactive Comments: or generic Comment on above: or generic budesonide 0.25 mg/ml inhalation suspension (3 sources) Corticosteroid Start: 07-02-2024 End: 09-10-2024 take 0.5 mg by inhalation twice daily Budesonide 0.5 mg/2 mL Suspension For Nebulization Discontinued 0.5 mg INHALATION TWICE DAILY 0 July 02, 2024 12:00am September 10, 2024 7:48pm Start: 07-02-2024 End: 09-10-2024 cefdinir 300 mg oral capsule (20 sources) Cephalosporin Antibacterial Start: 07-01-2023 End: 12-28-2023 take 1 capsule by mouth twice daily Cefdinir 300 mg capsule Discontinued 300 mg PO TWICE A DAY 10 July 01, 2023 12:00am December 28, 2023 11:56am Start: 12-08-2022 End: 01-13-2023 take 1 capsule by mouth twice daily cefdinir 300 mg oral capsule 1 (one) capsule bid for 0 days Quantity: 10 {Capsule} Refills: 0 Ordered: 13-Jan-2023 Yonis Cavanaugh CMA Start : 08-Dec-2022 End : 13-Jan-2023 Inactive Start: 06-07-2022 take 300 mg by mouth twice terrence ly Cefdinir Active 300 MG PO TWICE A DAY 14 June 07, 2022 12:00am start 06/08/22 cefuroxime 500 mg oral tablet (20 sources) Cephalosporin Antibacterial Start: 01-11-2024 End: 04-13-2024 take 1 tablet by mouth twice daily Cefuroxime Axetil 500 mg tablet Discontinued 500 mg PO TWICE A DAY 14 January 11, 2024 12:00am April 13, 2024 9:56am Start: 11-26-2022 End: 03-02-2023 take 1 tablet by mouth every twelve hours Cefuroxime Axetil 500 mg tablet Discontinued 500 mg PO Q12H 14 7 0 November 26, 2022 1:00am March 02, 2023 10:35am Start: 11-26-2022 End: 03-02-2023 cyclobenzaprine hydrochloride 10 mg oral tablet (20 sources) Muscle Relaxant Start: 09-30-2021 End: 02-11-2022 take 1 tablet by mouth every eight hours as needed Cyclobenzaprine HCl 10 MG Oral Tablet 1 (one) Tablet q8h prn for 0 days Quantity: 30 {Tablet} Refills: 0 Ordered: 11-Feb-2022 Taylor Thrasher MA Start : 30-Sep-2021 End : 11-Feb-2022 Inactive 1 ml denosumab 60 mg/ml prefilled syringe (20 sources) RANK Ligand Inhibitor Start: 11-26-2022 Prolia 60 mg/mL subcutaneous syringe q 6 mo mL q 6mo for 0 days Quantity: 1 {Milliliter} Refills: 1 Ordered: 26-Nov-2022 Shena Jeffers DO, DO, Kathleen Start : 26-Nov-2022 Active Prolia 60 MG/ML Subcutaneous Solution Prefilled Syringe q 6 mo (60 MG/ML) Inactive Prolia 60 MG/ML Subcutaneous Solution Prefilled Syringe q 6 mo (60 MG/ML) Inactive dextromethorphan hydrobromide 2 mg/ml / guaiFENesin 20 mg/ml oral solution (3 sources) Uncompetitive S-aimdyc-N-aspartate Receptor Antagonist, Sigma-1 Agonist Start: 07-02-2024 End: 09-10-2024 take 1 mL by mouth every six hours as needed for cough Dextromethorphan-Guaifenesin 10-100 mg/5 mL Syrup Discontinued 10 mL PO EVERY 6 HOURS NEEDED as needed for Cough 0 0 July 02, 2024 12:00am September 10, 2024 7:48pm Start: 07-02-2024 End: 09-10-2024 docusate sodium 50 mg / sennosides, [facility] 8.6 mg oral tablet (8 sources) Start: 07-02-2024 End: 02-13-2025 Sennosides-Docusate Sodium (Stimulant Laxative Plus) 8.6-50 mg Tablet Discontinued 2 {tbl} PO TWICE A DAY 0 0 September 13, 2024 4:07pm February 13, 2025 3:33pm constipation Start: 07-02-2024 End: 09-13-2024 ertapenem 1000 mg injection (3 sources) Penem Antibacterial Start: 09-13-2024 End: 10-04-2024 Ertapenem 1 gram Recon Soln Discontinued 1 g IV EVERY 24 HOURS 7 7 0 September 13, 2024 1:00am October 04, 2024 8:14pm UTI stop date 09/20/24. Dx: esbl bacteremia. Weekly bmp, cbc, and LFT. Fax to [phone]. Routine midline care per protocol. Wixela Inhub 100-50 MCG/DOSE Inhalation Aerosol Powder Breath Activated (20 sources) Corticosteroid, beta2-Adrenergic Agonist Start: 09-16-2021 take 1 puff(s) by inhalation twice daily Wixela Inhub 100-50 MCG/DOSE Inhalation Aerosol Powder Breath Activated 1 (one) Puff bid for 90 days Quantity: 3 {Unspecified} Refills: 3 Ordered: 16-Sep-2021 Shena Jeffers DO, DO, Kathleen Start : 16-Sep-2021 Active Comments: dispense 3boxes Start: 09-16-2021 take 1 puff(s) by in halation twice daily Wixela Inhub 100-50 MCG/DOSE Inhalation Aerosol Powder Breath Activated 1 (one) Puff bid for 90 days Quantity: 3 {Unspecified} Refills: 3 Ordered: 16-Sep-2021 Shena Jeffers DO, DO, Kathleen Start : 16-Sep-2021 Active Comments: Mail order. dispense 3boxes Start: 09-16-2021 take 1 puff(s) by in halation twice daily Wixela Inhub 100-50 MCG/DOSE Inhalation Aerosol Powder Breath Activated 1 (one) Puff bid for 90 days Quantity: 3 {Unspecified} Refills: 3 Ordered: 16-Sep-2021 Shena Jeffers DO, DO, Kathleen Start : 16-Sep-2021 Active Comments: dispense 3boxes Start: 09-08-2021 Fluticasone Pr opion-Salmeterol (Wixela Inhub) 100-50 mcg/dose blister with device Active 1 INH INHALATION TWICE A DAY September 08, 2021 11:33am Comment on above: Mail order. dispense 3boxes dispense 3boxes FreeStyle Alivia 14 Day [place] Device (20 sources) Start: 02-18-2022 FreeStyle Alivia 14 Day [place] Device 1 (one) Device UAD for blood sugar monitoring for 0 days Quantity: 1 {Each} Refills: 0 Ordered: 18-Feb-2022 Shena Jeffers DO, DO, Kathleen Start : 18-Feb-2022 Active Comments: qty is 1 device reader. Comment on above: qty is 1 device read er. FreeStyle Alivia 14 Day Sensor Miscellaneous (20 sources) Start: 02-18-2022 FreeStyle Alivia 14 Day Sensor Miscellaneous 1 (one) each apply once every 14 days for 28 days Quantity: 2 {Each} Refills: 12 Ordered: 18-Feb-2022 Zeyad YBARRA, Shena Jeffers DO Shena Start : 18-Feb-2022 Active Gvoke Kit 1 MG/0.2ML Subcutaneous Solution (20 sources) Start: 02-25-2022 Gvoke Kit 1 MG/0.2ML Subcutaneous Solution 1 (one) Pre-filled Pen Syringe PRN for blood sugars 80 or less for 0 days Quantity: 1 {Each} Refills: 0 Ordered: 25-Feb-2022 Saray Huber CMA Start : 25-Feb-2022 Active Comments: qty is 1 prefilled pen Comment on above: qty is 1 prefilled p en Gvoke Kit 1 MG/0.2ML Subcutaneous Solution (20 sources) Start: 02-25-2022 Gvoke Kit 1 MG/0.2ML Subcutaneous Solution 1 (one) Pre-filled Pen Syringe PRN for blood sugars 80 or less for 0 days Quantity: 1 {Each} Refills: 0 Ordered: 25-Feb-2022 Ashlee Huber CMAin Start : 25-Feb-2022 Active Comments: qty is 1 prefilled pen Comment on above: qty is 1 prefilled p en insulin aspart, human 100 unt/ml injectable solution (20 sources) Insulin Analog Start: 09-10-2024 End: 10-04-2024 Insulin Aspart U-100 (Novolog U-100 Insulin Aspart) 100 unit/mL solution Discontinued SC DIRECTED September 10, 2024 1:00am October 04, 2024 8:14pm HYPERGLYCEMIA Start: 06-29-2023 End: 07-02-2024 Insulin Aspart U-100 (Novolo g U-100 Insulin Aspart) 100 unit/mL solution Discontinued SC June 29, 2023 12:00am July 02, 2024 1:41pm DIABETES Start: 06-29-2023 Insulin Aspart U-100 (Novolog U-100 Insulin Aspart) 100 unit/mL solution Active SC June 29, 2023 12:00am Start: 09-06-2022 Insulin Aspart 100 UNIT/ML Injection Solution TAD Unit TAD for 0 days Quantity: 90 {Each} Refills: 2 Ordered: 06-Sep-2022 Shena Jeffers DO, DO, Kathleen Start : 06-Sep-2022 Active Comments: PT ON SLIDING SCALENOVOLOG SUBmax dose 100u daily updated rx Start: 09-06-2022 Insulin Aspart 100 UNIT/ML Injection Solution TAD Unit TAD for 0 days Quantity: 90 {Each} Refills: 2 Ordered: 06-Sep-2022 Shena Jeffers DO, DO, Kathleen Start : 06-Sep-2022 Active Comments: PT ON SLIDING SCALENOVOLOG SUB Start: 03-01-2022 NovoLOG 100 UN IT/ML Subcutaneous Solution TAD Vial as directed for 30 days Quantity: 90 {Unspecified} Refills: 3 Ordered: 01-Mar-2022 Shena Jeffers DO, DO, Kathleen Start : 01-Mar-2022 Active Start: 09-08-2021 End: 01-30-2022 Insulin Aspart U-100 (Novolo g U-100 Insulin Aspart) 100 unit/mL solution Discontinued 100 U continuous subcutaneous infusion .continuous September 08, 2021 1:00am January 30, 2022 1:34pm via pump Start: 09-08-2021 End: 01-30-2022 Start: 09-02-2021 inject 1 dose by sub cutaneous injection once daily NovoLOG 100 UNIT/ML Subcutaneous Solution 1 (one) Vial as directed for 30 days Quantity: 90 {Unspecified} Refills: 3 Ordered: 02-Sep-2021 Ruth Castellano LPN Start : 02-Sep-2021 Active Comments: dispense 90 vialsinject up to 100units daily through pump Comment on above: insulin pump - endoc rinologist in [place] dispense 90 vialsi nject up to 100units daily through pump PT ON SLIDING SCALEN OVOLOG SUB PT ON SLIDING SCALEN OVOLOG SUBmax dose 100u daily updated rx insulin degludec 100 unt/ml injectable solution (4 sources) Insulin Analog Start: 12-28-2023 End: 06-16-2024 Insulin Degludec (Tresiba U-100 Insulin) 100 unit/mL solution Discontinued 7 U SC AT BEDTIME December 28, 2023 1:00am June 16, 2024 10:41am Start: 12-28-2023 End: 06-16-2024 Insulin Degludec (Tresiba U-100 Insulin) 100 unit/mL solution (4 sources) Start: 06-29-2024 End: 07-02-2024 Insulin Degludec (Tresiba U- 100 Insulin) 100 unit/mL solution Discontinued 10 U SC AT BEDTIME June 29, 2024 12:00am July 02, 2024 1:41pm Start: 06-16-2024 End: 06-29-2024 Insulin Degludec (Tresiba U- 100 Insulin) 100 unit/mL solution Discontinued 20 U SC AT BEDTIME 10 June 16, 2024 10:41am June 29, 2024 5:01pm Start: 06-16-2024 End: 06-29-2024 Insulin Degludec (Tresiba U- 100 Insulin) 100 unit/mL solution Discontinued 20 U SC AT BEDTIME June 16, 2024 10:41am June 29, 2024 5:01pm insulin glargine 100 unt/ml injectable solution (20 sources) Insulin Analog Start: 07-11-2023 inject 10 [IU] by subcutaneous injection once daily at bedtime Lantus U-100 Insulin 100 unit/mL subcutaneous solution 10 Unit qhs for 30 days Quantity: 100 {Milliliter} Refills: 0 Ordered: 11-Jul-2023 Shena Jeffers DO, DO, Kathleen Start : 11-Jul-2023 Active Start: 11-22-2022 End: 06-29-2023 Insulin Glargine Discontinue d 5 UNIT SC DAILY November 22, 2022 12:00am June 29, 2023 6:49pm Start: 11-22-2022 End: 06-29-2023 Insulin Glargine Discontinue d 5 UNIT SC DAILY November 22, 2022 1:00am June 29, 2023 7:49pm Start: 11-22-2022 Insulin Glargi ne Active 5 UNIT SC DAILY November 22, 2022 1:00am Start: 11-22-2022 Insulin Glargi ne Active 5 UNIT SC DAILY November 22, 2022 12:00am Start: 07-01-2022 inject 10 [IU] by alston bcutaneous injection once daily at bedtime Lantus 100 UNIT/ML Subcutaneous Solution 10 Unit qhs for 30 days Quantity: 100 {Milliliter} Refills: 3 Ordered: 01-Jul-2022 Shena Jeffers DO, DO, Kathleen Start : 01-Jul-2022 Active Start: 03-01-2022 inject 10 [IU] by alston bcutaneous injection once daily at bedtime Lantus 100 UNIT/ML Subcutaneous Solution 10 Unit qhs for 0 days Quantity: 100 {Milliliter} Refills: 0 Ordered: 01-Mar-2022 Shena Jeffers DO, DO, Kathleen Start : 01-Mar-2022 Active Start: 02-11-2022 inject 25 [IU] by alston bcutaneous injection once daily at bedtime Lantus 100 UNIT/ML Subcutaneous Solution 25 Unit qhs for 0 days Quantity: 100 {Milliliter} Refills: 0 Ordered: 11-Feb-2022 Shena Jeffers DO, DO, Kathleen Start : 11-Feb-2022 Active Start: 02-10-2022 Insulin Glargi ne (Lantus U-100 Insulin) 100 unit/mL solution Active 25 UNIT SC EVERY EVENING 3 February 10, 2022 11:28am Please provide enough pens for 30 day supply and include pen needles. Hold if glucose less than 130 mg/dl Start: 01-30-2022 End: 02-10-2022 Insulin Glargine (Lantus U-1 00 Insulin) 100 unit/mL solution Discontinued 20 U SC EVERY EVENING 3 30 5 January 30, 2022 1:37pm February 10, 2022 11:28am Please provide enough pens for 30 day supply and include pen needles. Hold if glucose less than 130 mg/dl Start: 11-22-2021 End: 01-30-2022 Insulin Glargine (Lantus U-1 00 Insulin) 100 unit/mL solution Discontinued 10 U SC EVERY EVENING 3 30 0 November 22, 2021 1:00am January 30, 2022 1:37pm Please provide enough pens for 30 day supply and include pen needles. Start: 11-22-2021 End: 02-10-2022 Insulin Glargine (Lantus U-1 00 Insulin) 100 unit/mL solution (20 sources) Start: 06-29-2023 End: 12-28-2023 Insulin Glargine (Lantus U-1 00 Insulin) 100 unit/mL solution Discontinued 10 U SC AT BEDTIME June 29, 2023 12:00am December 28, 2023 11:57am DIABETES Start: 06-29-2023 End: 12-28-2023 Insulin Glargine (Lantus U-1 00 Insulin) 100 unit/mL solution Discontinued 10 U SC AT BEDTIME June 29, 2023 12:00am December 28, 2023 11:57am Start: 06-29-2023 End: 12-28-2023 Insulin Glargine (Lantus U-1 00 Insulin) 100 unit/mL solution Discontinued 10 UNIT SC AT BEDTIME June 29, 2023 12:00am December 28, 2023 11:57am Start: 06-29-2023 Insulin Glargi ne (Lantus U-100 Insulin) 100 unit/mL solution Active 10 UNIT SC AT BEDTIME June 28, 2023 11:00pm Start: 06-29-2023 Insulin Glargi ne (Lantus U-100 Insulin) 100 unit/mL solution Active 10 UNIT SC AT BEDTIME June 29, 2023 12:00am Start: 09-10-2022 End: 10-06-2022 Insulin Glargine (Lantus U-1 00 Insulin) 100 unit/mL solution Discontinued 20 U SC AT BEDTIME 10 September 10, 2022 9:45am October 06, 2022 12:41pm diabetes Start: 09-10-2022 End: 10-06-2022 Insulin Glargine (Lantus U-1 00 Insulin) 100 unit/mL solution Discontinued 20 U SC AT BEDTIME September 10, 2022 9:45am October 06, 2022 12:41pm Start: 09-10-2022 End: 10-06-2022 Insulin Glargine (Lantus U-1 00 Insulin) 100 unit/mL solution Discontinued 20 UNIT SC AT BEDTIME September 10, 2022 9:45am October 06, 2022 12:41pm Start: 09-10-2022 End: 10-06-2022 Insulin Glargine (Lantus U-1 00 Insulin) 100 unit/mL solution Discontinued 20 UNIT SC AT BEDTIME 10 November 18th, 2022 8:45am October 06, 2022 11:41am Start: 09-10-2022 Insulin Glargi ne (Lantus U-100 Insulin) 100 unit/mL solution Active 20 UNIT SC AT BEDTIME September 10, 2022 8:45am Start: 09-08-2022 End: 09-10-2022 Insulin Glargine (Lantus U-1 00 Insulin) 100 unit/mL solution Discontinued 10 U SC AT BEDTIME September 08, 2022 1:00am September 10, 2022 9:45am diabetes Start: 09-08-2022 End: 09-10-2022 Insulin Glargine (Lantus U-1 00 Insulin) 100 unit/mL solution Discontinued 10 U SC AT BEDTIME September 08, 2022 1:00am September 10, 2022 9:45am Start: 09-08-2022 End: 09-10-2022 Insulin Glargine (Lantus U-1 00 Insulin) 100 unit/mL solution Discontinued 10 UNIT SC AT BEDTIME September 08, 2022 1:00am September 10, 2022 9:45am Start: 09-08-2022 End: 09-10-2022 Insulin Glargine (Lantus U-1 00 Insulin) 100 unit/mL solution Discontinued 10 UNIT SC AT BEDTIME September 08, 2022 12:00am September 10, 2022 8:45am Start: 09-08-2022 Insulin Glargi ne (Lantus U-100 Insulin) 100 unit/mL solution Active 10 UNIT SC AT BEDTIME September 08, 2022 12:00am Start: 02-10-2022 End: 06-07-2022 Insulin Glargine (Lantus U-1 00 Insulin) 100 unit/mL solution Discontinued 25 U SC EVERY EVENING 3 30 February 10, 2022 11:28am June 07, 2022 10:48am Please provide enough pens for 30 day supply and include pen needles. Hold if glucose less than 130 mg/dl Start: 02-10-2022 End: 06-07-2022 Insulin Glargine (Lantus U-1 00 Insulin) 100 unit/mL solution Discontinued 25 U SC EVERY EVENING 01 20February 10, 2022 11:28am June 07, 2022 10:48am Please provide enough pens for 30 day supply and include pen needles. Hold if glucose less than 130 mg/dl Start: 02-10-2022 End: 06-07-2022 Insulin Glargine (Lantus U-1 00 Insulin) 100 unit/mL solution Discontinued 25 UNIT SC EVERY EVENING 3 February 10, 2022 10:28am June 07, 2022 9:48am Please provide enough pens for 30 day supply and include pen needles. Hold if glucose less than 130 mg/dl Start: 02-10-2022 End: 06-07-2022 Insulin Glargine (Lantus U-1 00 Insulin) 100 unit/mL solution Discontinued 25 UNIT SC EVERY EVENING 3 February 10, 2022 11:28am June 07, 2022 10:48am Please provide enough pens for 30 day supply and include pen needles. Hold if glucose less than 130 mg/dl Insulin Glargine 100 unit/mL Cartridge (2 sources) Start: 11-22-2022 End: 06-29-2023 Insulin Glargine 100 unit/mL Cartridge Discontinued 5 U SC DAILY November 22, 2022 1:00am June 29, 2023 7:49pm dm Start: 11-22-2022 End: 06-29-2023 Insulin Glargine 100 unit/mL Cartridge Discontinued 5 U SC DAILY November 22, 2022 1:00am June 29, 2023 7:49pm Insulin Glargine-Yfgn (Insulin Glargine-Yfgn 100 Unit/Ml Subcutaneous Solution) 100 unit/mL solution (2 sources) Start: 09-10-2024 End: 09-13-2024 inject 7 [IU] by subcutaneous injection at bedtime Insulin Glargine-Yfgn (Insulin Glargine-Yfgn 100 Unit/Ml Subcutaneous Solution) 100 unit/mL solution Discontinued 7 U SC AT BEDTIME September 10, 2024 1:00am September 13, 2024 4:05pm Insulin Glargine-Yfgn 100 unit/mL (3 mL) Insulin Pen (4 sources) Start: 09-13-2024 End: 09-13-2024 Insulin Glargine-Yfgn 100 unit/mL (3 mL) Insulin Pen Discontinued 10 U SC WITH DINNER 0 0 September 13, 2024 1:00am September 13, 2024 8:05pm Start: 09-13-2024 End: 10-04-2024 Insulin Glargine-Yfgn 100 un it/mL (3 mL) Insulin Pen Discontinued 10 U SC WITH DINNER September 13, 2024 1:00am October 04, 2024 8:14pm elevated glucose hold if glucose Start: 09-13-2024 End: 09-13-2024 Insulin Glargine-Yfgn 100 un it/mL (3 mL) Insulin Pen Discontinued 10 U SC WITH DINNER 0 September 13, 2024 1:00am September 13, 2024 8:05pm Start: 09-13-2024 End: 10-04-2024 Insulin Glargine-Yfgn 100 un it/mL (3 mL) Insulin Pen Discontinued 10 U SC WITH DINNER September 13, 2024 1:00am October 04, 2024 8:14pm hold if glucose iron carbonyl 45 mg oral tablet (3 sources) Start: 06-16-2024 End: 10-04-2024 take 1 tablet by mouth once daily Iron, Carbonyl 45 mg tablet Discontinued 45 mg PO DAILY 30 0 June 16, 2024 12:00am October 04, 2024 8:15pm ANEMIA lisinopril 10 mg oral tablet (6 sources) Angiotensin Converting Enzyme Inhibitor Start: 10-04-2024 End: 03-06-2025 take 1 tablet by mouth once daily Lisinopril 10 mg Tablet Discontinued 10 mg PO DAILY 0 0 October 04, 2024 1:00am March 06, 2025 2:39pm Start: 07-02-2024 End: 09-06-2024 take 1 tablet by mouth once daily Lisinopril 10 mg Tablet Discontinued 10 mg PO DAILY 0 0 July 02, 2024 12:00am September 06, 2024 5:06pm melatonin 3 mg oral tablet (3 sources) Start: 07-02-2024 End: 02-13-2025 take 1 tablet by mouth at bedtime as needed Melatonin 3 mg Tablet Discontinued 3 mg PO AT BEDTIME NEEDED as needed for Insomnia 0 July 02, 2024 12:00am February 13, 2025 3:28pm Start: 07-02-2024 Menthol / Zinc Oxide (2 sources) Start: 07-02-2024 End: 02-13-2025 Menthol-Zinc Oxide (Calmosep kevin) 0.44-20.6 % Ointment Discontinued 1 NMA TOPICAL 4 TIMES DAILY 0 0 July 02, 2024 12:00am February 13, 2025 3:29pm REDNESS Please contact the information source for Protocol details. Start: 07-02-2024 End: 02-13-2025 Menthol-Zinc Oxide (Calmosep kevin) 0.44-20.6 % Ointment Discontinued 1 NMA TOPICAL 4 TIMES DAILY 0 July 02, 2024 12:00am February 13, 2025 3:29pm Please contact the information source for Protocol details. methylPREDNISolone 4 mg oral tablet (20 sources) Corticosteroid Start: 09-30-2021 End: 10-05-2021 take 1 tablet by mouth once at mealtime Medrol 4 MG Oral Tablet Therapy Pack TAD Tablet use as directed per instructions in pack for 0 days Quantity: 1 {Tablet} Refills: 0 Ordered: 05-Oct-2021 Patti Mckeon LPN Start : 30-Sep-2021 End : 05-Oct-2021 Inactive Comments: with food Comment on above: with food Nicotine 21-14-7 MG/24HR Transdermal Kit (20 sources) Cholinergic Nicotinic Agonist Start: 01-22-2022 End: 02-11-2022 Nicotine 21-14-7 MG/24HR Transdermal Kit 1 (one) Kit TAD for 0 days Quantity: 1 Kit Refills: 0 Ordered: 11-Feb-2022 Taylor Thrasher MA Start : 22-Jan-2022 End : 11-Feb-2022 Inactive nitrofurantoin, macrocrystals 25 mg / nitrofurantoin, monohydrate 75 mg oral capsule (20 sources) Nitrofuran Antibacterial Start: 06-24-2024 End: 06-29-2024 take 1 capsule by mouth every twelve hours Nitrofurantoin Monohyd/M-Cryst 100 mg capsule Discontinued 100 mg PO EVERY 12 HOURS 14 0 June 24, 2024 12:00am June 29, 2024 5:01pm Start: 06-29-2023 End: 07-04-2023 take 1 capsule by mouth every twelve hours Nitrofurantoin Monohyd/M-Cryst 100 mg capsule Discontinued 100 mg PO Q12H June 29, 2023 12:00am July 01, 2023 11:25am NovoLOG 100 UNIT/ML Subcutaneous Solution (20 sources) Start: 03-01-2022 NovoLOG 100 UN IT/ML Subcutaneous Solution TAD Vial as directed for 30 days Quantity: 90 {Unspecified} Refills: 3 Ordered: 01-Mar-2022 Zeyad YBARRA Shena Zeyad YBARRA Shena Start : 01-Mar-2022 Active NovoLOG 100 UNIT /ML Subcutaneous Solution (100 UNIT/ML) Inactive Comments: insulin pump - 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 [place] Comment on above: insulin pump - endoc rinologist in [place] Nut.Tx.Gluc Intol,Lf,Soy-Fibe r (Glucerna 1.2 Remy) 0.06-1.2 gram-kcal/mL Liquid (2 sources) Start: End: take 1 mL by mouth four times daily Nut.Tx.Gluc Intol,Lf,Soy-Fiber (Glucerna 1.2 Remy) 0.06-1.2 gram-kcal/mL Liquid Discontinued 120 mL PO 4 TIMES DAILY 0 0 July 02, 2024 12:00am October 04, 2024 8:15pm supplement Start: 07-02-2024 End: 10-04-2024 take 1 mL by mouth four times daily Nut.Tx.Gluc Intol,Lf,Soy-Fiber (Glucerna 1.2 Remy) 0.06-1.2 gram-kcal/mL Liquid Discontinued 120 mL PO 4 TIMES DAILY 0 July 02, 2024 12:00am October 04, 2024 8:15pm nystatin 100 unt/mg topical powder (3 sources) Polyene Antifungal Start: 10-04-2024 End: 02-13-2025 Nystatin (Nyamyc) 100,000 unit/gram Powder Discontinued 1 NMA TOPICAL TWICE A DAY 0 0 October 04, 2024 1:00am February 13, 2025 3:30pm Please contact the information source for Protocol details. Start: 10-04-2024 24 hr oxybutynin chloride 10 mg extended release oral tablet (20 sources) Cholinergic Muscarinic Antagonist Start: 06-22-2022 End: 07-02-2024 take 1 tablet by mouth once daily Oxybutynin Chloride 10 mg tablet extended release 24hr Discontinued 10 mg PO DAILY September 08, 2022 1:00am July 02, 2024 1:43pm bladder Start: 03-15-2022 take 1 tablet by yefri th once daily Oxybutynin Chloride ER 10 MG Oral Tablet Extended Release 24 Hour 1 (one) Tablet daily for 90 days Quantity: 90 {Tablet} Refills: 3 Ordered: 15-Mar-2022 Zeyad YBARRA Shena Jeffers DO Shena Start : 15-Mar-2022 Active Start: 09-08-2021 take 10 mg by mouth once daily Oxybutynin Chloride Active 10 MG PO DAILY September 08, 2021 1:00am take 1 tablet by yefri th every twenty-four hours Oxybutynin Chloride ER 10 MG Oral Tablet Extended Release 24 Hour qd (10 MG) Inactive pantoprazole 40 mg delayed release oral tablet (3 sources) Proton Pump Inhibitor Start: 09-10-2024 End: 02-13-2025 take 1 tablet by mouth once daily Pantoprazole 40 mg tablet,delayed release (DR/EC) Discontinued 40 mg PO DAILY September 10, 2024 1:00am February 13, 2025 3:30pm GERD PARoxetine mesylate 20 mg oral tablet (20 sources) Serotonin Reuptake Inhibitor Start: 01-30-2022 End: 05-26-2022 take 1 tablet by mouth once daily Paroxetine Mesylate 20 mg tablet Discontinued 20 mg PO DAILY 30 January 30, 2022 12:00am May 26, 2022 2:23pm microencapsulated potassium chloride 20 meq extended release oral tablet (20 sources) Start: 01-30-2022 End: 05-26-2022 Potassium Chloride (Klor-Con M20) 20 mEq Tablet,Er Particles/Crystals Discontinued 40 meq PO DAILY WITH MEALS 6 January 30, 2022 12:00am May 26, 2022 2:23pm Potassium, Sodium Phosphates 280-160-250 mg Powder In Packet (2 sources) Start: 01-30-2022 End: 05-26-2022 Potassium, Sodium Phosphates 280-160-250 mg Powder In Packet Discontinued 1 NMA PO THREE TIMES A DAY 6 0 January 30, 2022 12:00am May 26, 2022 2:23pm Start: 01-30-2022 End: 05-26-2022 Potassium, Sodium Phosphates 280-160-250 mg Powder In Packet Discontinued 1 NMA PO THREE TIMES A DAY January 30, 2022 12:00am May 26, 2022 2:23pm Spirometer Kit (20 sources) Start: 01-22-2022 End: 06-03-2022 Spirometer Kit 1 (one) Kit d aily for 0 days Quantity: 1 {Each} Refills: 0 Ordered: 03-Jun-2022 [place] Yonis RODRIGUEZ Start : 22-Jan-2022 End : 03-Jun-2022 Inactive Start: 01-22-2022 Spirometer Kit 1 (one) Kit daily for 0 days Quantity: 1 {Each} Refills: 0 Ordered: 22-Jan-2022 Taylor Thrasher MA Start : 22-Jan-2022 Active 60 actuat tiotropium 0.0025 mg/actuat inhalation spray (20 sources) Anticholinergic Start: 06-29-2024 End: 02-13-2025 take 2.5 ug by inhalation once daily Tiotropium Peconic (Spiriva Respimat) 2.5 mcg/actuation mist Discontinued 2 NMA INHALATION DAILY June 29, 2024 12:00am February 13, 2025 3:31pm COPD Start: 06-29-2024 Start: 06-03-2022 take 2 puff(s) by in halation once daily Spiriva Respimat 2.5 mcg/actuation solution for inhalation 2 (two) Puff daily for 30 days Quantity: 2 {Each} Refills: 2 Ordered: 03-Jun-2022 Shena Jeffers DO, DO, Kathleen Start : 03-Jun-2022 Active Start: 06-03-2022 take 2 puff(s) by in halation once daily Spiriva Respimat 2.5 MCG/ACT Inhalation Aerosol Solution 2 (two) Puff daily for 30 days Quantity: 2 {Each} Refills: 2 Ordered: 03-Jun-2022 Shena Jeffers DO, DO, Kathleen Start : 03-Jun-2022 Active Start: 06-03-2022 take 2 puff(s) by in halation once daily Spiriva Respimat 2.5 MCG/ACT Inhalation Aerosol Solution 2 (two) Puff daily for 30 days Quantity: 2 {Each} Refills: 2 Ordered: 11-Aug-202Shena Kaye DO, DO, Kathleen Start : 03-Jun-2022 Active Start: 01-22-2022 End: 02-11-2022 take 2 puff(s) by inhalation once daily Spiriva Respimat 2.5 MCG/ACT Inhalation Aerosol Solution 2 (two) Puff daily for 0 days Quantity: 2 {Each} Refills: 0 Ordered: 11-Feb-2022 Taylor Thrasher MA Start : 22-Jan-2022 End : 11-Feb-2022 Inactive 24 hr tolterodine tartrate 2 mg extended release oral capsule (3 sources) Cholinergic Muscarinic Antagonist Start: 07-02-2024 End: 02-13-2025 take 1 capsule by mouth once daily Tolterodine 2 mg Capsule,Extended Release 24hr Discontinued 2 mg PO DAILY 0 0 July 02, 2024 12:00am February 13, 2025 3:32pm bladder traMADol hydrochloride 50 mg oral tablet (20 sources) Opioid Agonist Start: 10-05-2021 End: 10-12-2021 take 1 tablet by mouth every six hours as needed for pain traMADol HCl 50 MG Oral Tablet 1 (one) Tablet q6hrs prn back pain for 7 days Quantity: 28 {Tablet} Refills: 0 Ordered: 05-Oct-2021 Maritza Levine Start : 05-Oct-2021 End : 12-Oct-2021 Inactive Comments: Oarrs run twenty eightCompression [id number] Comment on above: Oarrs run twenty eig htCompression [id number] Problems Active Problems Problem Classification Problem Date Documented Da te Episodic/Chronic Administrative/social admission (20 sources) Patient encounter status; Translations: [Nutritional counseling] Resolved: 3 10-14-2021 Episodic Comment on above: at age no scope need ed-- - decliined cologard and heme Cardiac dysrhythmias (20 sources) Atrial fibrillation with rapid ventricular response; Translations: [Atrial fibrillation with RVR] Onset: 4 12-02-2022 Chronic Comment on above: echo 11/2022:EF 75%pa p 55-60 echo 11/2022:EF 75%pa p 55-60secondary to infection and low tsh, add BB for rate control Cardiac dysrhythmias (20 sources) Tachycardia; Translations: [Tachycardia, unspecified] Resolved: 2 Episodic Chronic kidney disease (20 sources) Chronic kidney disease stage 3; Translations: [CKD (chronic kidney disease), stage III] 02-11-2022 Chronic Comment on above: GFR 44 improved sinc e Stef when GFr was 16 Chronic kidney disease (19 sources) Chronic kidney disease Chronic obstructive pulmonary disease and bronchiectasis (20 sources) Chronic obstructive lung disease; Translations: [COPD (chronic obstructive pulmonary disease)] 10-14-2021 Chronic Comment on above: stable on home Oxyge n she wanted to try to get off o2 - she is fine at rest but drops with a few minutes of walking- so she will use oxygen with exertion/bedtime with blebs and atele ctasis PRN NEBULIZER AND DA MAGGIE INHALER Chronic obstructive pulmonary disease and bronchiectasis (20 sources) Bronchitis; Translations: [Bronchitis] Resolved: 1 09-30-2021 Episodic Crushing injury or internal injury (20 sources) Injury of kidney Episodic Deficiency and other anemia (2 sources) Iron deficiency anemia secondary to blood loss (chronic); Translations: [Iron deficiency anemia secondary to blood loss (chronic)] Onset: 5 Chronic Deficiency and other anemia (10 sources) Anemia; Translations: [Anemia, unspecified] 06-24-2024 Episodic Comment on above: Had Iron deficiency anemia with UGI bleed.Discussed anemia and evaluation. Pt agrees to proceed.Hgb was 10.5, Iron and Iron sat are low on 02/13/2025.Discussed IV vs Oral replacement, she wants Oral replacement. Deficiency and other anemia (3 sources) Microcytic anemia; Translations: [Iron deficiency anemia, unspecified] 06-14-2024 Episodic Deficiency and other anemia (5 sources) Iron deficiency anemia; Translations: [Iron deficiency anemia, unspecified] 09-19-2024 Episodic Deficiency and other anemia (2 sources) Iron deficiency anemia, unspecified; Translations: [Iron deficiency anemia, unspecified] Onset: 4 Episodic Delirium, dementia, and amnestic and other cognitive disorders (20 sources) Delirium; Translations: [Delirium due to known physiological condition] Onset: 4 Chronic Diabetes mellitus with complications (20 sources) Diabetes mellitus; Translations: [Diabetes mellitus with albuminuria] Onset: 5 10-14-2021 Chronic Comment on above: DKA with lactic acid osis Nov 13, unresponsive to hospital dr Ceja managerichard Diabetes mellitus without complication (20 sources) Type 2 diabetes mellitus without complications; Translations: [Diabetes mellitus without mention of complication, type II or unspecified type, not stated as uncontrolled] Onset: 5 Chronic Diabetes mellitus without complication (20 sources) Diabetes mellitus without complication Diseases of white blood cells (20 sources) Leukocytosis; Translations: [Elevated white blood cell count, unspecified] Onset: 4 Chronic Disorders of lipid metabolism (4 sources) Hyperlipidemia; Translations: [Hyperlipidemia, unspecified] 09-13-2024 Chronic E Codes: Fall (20 sources) Fall; Translations: [Fall] Resolved: 3 12-08-2021 Episodic Comment on above: 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 but will need to monitor no other sx of dizzy chest pain- palpitations- no syncope- told has to be very careful with the blood thinner- and the fall she not have others and seems steady gait lynne E Codes: Fall (20 sources) Fall Esophageal disorders (4 sources) Gastroesophageal reflux disease; Translations: [Gastro-esophageal reflux disease without esophagitis] 09-13-2024 Chronic Essential hypertension (20 sources) Hypertensive disorder; Translations: [HTN (hypertension)] 10-14-2021 Chronic Fluid and electrolyte disorders (20 sources) Dehydration; Translations: [Dehydration] Resolved: 2 02-11-2022 Episodic Genitourinary symptoms and ill-defined conditions (20 sources) Bacteriuria; Translations: [Bacteriuria] Resolved: 3 Episodic Immunizations and screening for infectious disease (20 sources) Contact with or exposure to other viral diseases; Translations: [Exposure to COVID-19 virus] Resolved: 3 10-14-2021 Episodic Malaise and fatigue (20 sources) Asthenia; Translations: [Weakness] Onset: 4 06-29-2023 Episodic Mycoses (4 sources) Candidal vulvovaginitis; Translations: [Candidal vulvovaginitis] 10-17-2024 Episodic Nausea and vomiting (20 sources) Nausea and vomiting; Translations: [Nausea with vomiting, unspecified] Episodic Neoplasms of unspecified nature or uncertain behavior (3 sources) Thrombocytosis; Translations: [Thrombocythemia] 06-14-2024 Episodic Nutritional deficiencies (5 sources) Vitamin D deficiency; Translations: [Vitamin D deficiency, unspecified] Onset: 5 09-13-2024 Chronic Open wounds of head; neck; and trunk (20 sources) Facial laceration ; Translations: [Laceration of skin of eyebrow] Resolved: 2 12-08-2021 Episodic Comment on above: ice area it is still swollen but well approximated- 6 sutures removed Osteoporosis (20 sources) Disuse osteoporosis; Translations: [Osteoporosis, disuse] Onset: 5 10-14-2021 Chronic Comment on above: last dexa 2020- old endo did last dexa 2020- will see Dr Ceja Other acquired deformities (20 sources) Deformity of foot; Translations: [Foot deformity, bilateral] 03-10-2023 Episodic Comment on above: due to diabetes Other aftercare (20 sources) Post-discharge follow-up; Translations: [Hospital discharge follow-up] 11-27-2021 Episodic Other bone disease and musculoskeletal deformities (13 sources) Osteopenia; Translations: [Other specified disorders of bone density and structure, unspecified site] Episodic Other bone disease and musculoskeletal deformities (14 sources) Other specified disorders of bone density and structure, unspecified site; Translations: [Disorder of bone and cartilage, unspecified] Episodic Other circulatory disease (20 sources) Pulmonary venous congestion; Translations: [Pulmonary vascular congestion] 06-03-2022 Episodic Comment on above: NOTED ON STAT XRAY D ONE TODAY- ORDERED STAT DOPPLER BILATERAL LOWER EXTREMITIES Other diseases of bladder and urethra (4 sources) Overactive bladder; Translations: [Overactive bladder] 09-13-2024 Chronic Other diseases of kidney and ureters (3 sources) Renal impairment; Translations: [Disorder of kidney and ureter, unspecified] 07-02-2024 Episodic Other endocrine disorders (20 sources) Hypoglycemia; Translations: [Hypoglycemia] 03-01-2022 Chronic Other fractures (20 sources) Compression fracture of thoracic spine; Translations: [Compression fracture of T5 vertebra] 10-14-2021 Episodic Other fractures (20 sources) Fracture of sixth thoracic vertebra; Translations: [Compression fracture of T6 vertebra, initial encounter] 10-30-2021 Episodic Other fractures (20 sources) Fracture of seventh thoracic vertebra; Translations: [Compression fracture of T7 vertebra, initial encounter] Resolved: 3 10-30-2021 Episodic Comment on above: Back pain, refer to pain management soon Other hematologic conditions (20 sources) ESR raised; Translations: [Elevated sed rate] 10-14-2021 Episodic Other injuries and conditions due to external causes (3 sources) Closed injury of head; Translations: [Unspecified injury of head, initial encounter] 09-25-2024 Episodic Other injuries and conditions due to external causes (4 sources) At risk for falls ; Translations: [History of falling] 09-06-2024 Episodic Other injuries and conditions due to external causes (1 source) History of falling; Translations: [History of falling] Onset: 5 Episodic Other lower respiratory disease (20 sources) Cough; Translations: [Cough] Resolved: 3 10-14-2021 Episodic Other lower respiratory disease (20 sources) Hypoxia; Translations: [Hypoxia] Resolved: 2 10-14-2021 Episodic Comment on above: improved adn resolve d Other lower respiratory disease (20 sources) Dyspnea; Translations: [SOB (shortness of breath)] 10-14-2021 Episodic Comment on above: has been on anticoag for 6 weeks per pt for PE, but no result of that in chart, had ER note regarding DVT in Sep 2021, since pt stopped anticoag 2 days ago will check labs to see if PE or CHF or other, stat chest xray will consider CT chest ruled out PE. Does have emphysema and blebs, etc and atelectasis. on anticoagulation - - shouldnt be clot relatedexac of emphysema ??-- possible with humidity etc but no other sx Other lower respiratory disease (19 sources) Hypoxemia; Translations: [Hypoxemia] 06-05-2022 Episodic Other lower respiratory disease (6 sources) Hypoxemia; Translations: [Hypoxemia] Episodic Other nervous system disorders (20 sources) Disorder of brain; Translations: [Encephalopathy, unspecified] 11-30-2021 Chronic Other nervous system disorders (19 sources) Encephalopathy, unspecified; Translations: [Encephalopathy, unspecified] Chronic Other nervous system disorders (20 sources) Metabolic encephalopathy; Translations: [Metabolic encephalopathy] Resolved: 3 11-22-2022 Chronic Comment on above: secondary to sepsis Other nervous system disorders (2 sources) Metabolic encephalopathy; Translations: [Metabolic encephalopathy] 11-26-2022 Chronic Other nervous system disorders (12 sources) Unable to walk; Translations: [Difficulty in walking, not elsewhere classified] 06-29-2023 Chronic Other nervous system disorders (2 sources) Difficulty in walking, not elsewhere classified; Translations: [Difficulty in walking] 06-29-2023 Chronic Other nervous system disorders (3 sources) Tremor; Translations: [Tremor, unspecified] 07-05-2024 Episodic Other nutritional; endocrine; and metabolic disorders (3 sources) Obesity; Translations: [Obesity, unspecified] 03-28-2024 Chronic Other nutritional; endocrine; and metabolic disorders (20 sources) Body mass index 25-29 - overweight; Translations: [BMI 27.0-27.9,adult] Resolved: 2 10-14-2021 Episodic Other nutritional; endocrine; and metabolic disorders (20 sources) H/O: diabetes mellitus; Translations: [History of diabetic ketoacidosis] 02-11-2022 Episodic Other nutritional; endocrine; and metabolic disorders (20 sources) Overweight in adulthood with body mass index of 25 or more but less than 30; Translations: [BMI 27.0-27.9,adult] Resolved: 3 01-20-2022 Episodic Other nutritional; endocrine; and metabolic disorders (8 sources) Overweight; Translations: [Overweight] 12-28-2023 Episodic Other nutritional; endocrine; and metabolic disorders (1 source) Overweight; Translations: [Overweight] 12-28-2023 Episodic Other nutritional; endocrine; and metabolic disorders (4 sources) History of iron deficiency; Translations: [Personal history of other endocrine, nutritional and metabolic disease] 09-19-2024 Episodic Other screening for suspected conditions (not mental disorders or infectious disease) (20 sources) Thyroid hormone tests abnormal; Translations: [Abnormal TSH] 09-30-2021 Episodic Comment on above: pt states she doesnt take her med consisttenly - she forgets Phlebitis; thrombophlebitis and thromboembolism (20 sources) Acute deep vein thrombosis of lower limb; Translations: [Acute embolism and thrombosis of unspecified deep veins of left lower extremity] 03-01-2022 Episodic Comment on above: pt has had 2-episode s of clots in life time now 2020 presented with PE -- then 2021 DVT /PE Pleurisy; pneumothorax; pulmonary collapse (20 sources) Bilateral pleural effusion; Translations: [Pleural effusion, bilateral] 12-02-2022 Episodic Pneumonia (except that caused by tuberculosis or sexually transmitted disease) (20 sources) Pneumonia; Translations: [Pneumonia] Resolved: 3 10-14-2021 Episodic Pulmonary heart disease (20 sources) Idiopathic pulmonary arterial hypertension ; Translations: [Pulmonary hypertension, primary] 12-02-2022 Chronic Pulmonary heart disease (20 sources) Pulmonary embolism; Translations: [Pulmonary emboli] 10-14-2021 Episodic Comment on above: dx 10/13- no surgeri es no sedentary no covid, but did have covid booster in early sep , no long travel first clot in life mamm due- order givencolonoscopy up to date- 2017 Residual codes; unclassified (20 sources) Postmenopausal state; Translations: [Postmenopausal (Renamed from Postmenopausal status)] 10-14-2021 Episodic Residual codes; unclassified (20 sources) Non-smoker; Translations: [Non-smoker] Resolved: 3 02-11-2022 Episodic Comment on above: 40 yr smoking histor y Residual codes; unclassified (20 sources) Body mass index 20-24 - normal; Translations: [BMI 24.0-24.9, adult] Resolved: 3 06-03-2022 Episodic Residual codes; unclassified (3 sources) Creatinine level - finding 07-09-2023 Episodic Residual codes; unclassified (3 sources) Confusional state; Translations: [Disorientation, unspecified] 07-05-2024 Episodic Respiratory failure; insufficiency; arrest (adult) (20 sources) Acute respiratory failure; Translations: [Acute respiratory failure with hypoxia] 11-17-2021 Episodic Retinal detachments; defects; vascular occlusion; and retinopathy (20 sources) Bilateral degeneration of macula; 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, bilateral] 10-14-2021 Chronic Screening and history of mental health and substance abuse codes (3 sources) H/O: dementia; Translations: [Personal history of other mental and behavioral disorders] 09-25-2024 Episodic Spondylosis; intervertebral disc disorders; other back problems (20 sources) Backache; Translations: [Back pain] 10-14-2021 Episodic Comment on above: reproducible, suspec t musculoskeletal, adding torodol, and steroid xray follow up Substance-related disorders (20 sources) Smoker; Translations: [Smoker] Resolved: 3 10-14-2021 Chronic Comment on above: 38 yr histpry of 1/2 ppd 38 yr histpry of 1/2 ppd- quit 01/2021 Thyroid disorders (20 sources) Hypothyroidism; Translations: [Hypothyroidism] Onset: 5 10-14-2021 Chronic Comment on above: ON MED Unclassified (20 sources) Unclassified (20 sources) BMI 27.0-27.9,adult Unclassified (20 sources) Pulmonary emboli Unclassified (20 sources) Compression fracture of T5 vertebra Unclassified (20 sources) DM (diabetes mellitus), type 2, uncontrolled Unclassified (20 sources) Osteoporosis, disuse Unclassified (20 sources) Exposure to COVID-19 virus Unclassified (20 sources) Macular degeneration, bilateral Unclassified (20 sources) Compression fracture of T7 vertebra, initial encounter Unclassified (20 sources) Hospital discharge follow-up Unclassified (20 sources) Laceration of skin of eyebrow Unclassified (20 sources) DM (diabetes mellitus), secondary uncontrolled Unclassified (1 source) Acute candidiasis of vulva and vagina; Translations: [Acute candidiasis of vulva and vagina] Onset: 4 Unclassified (1 source) Thrombocytosis, unspecified; Translations: [Thrombocytosis, unspecified] Onset: 4 Urinary tract infections (8 sources) Urinary tract infections Past or Other Problems Problem Classification Problem Date Documented Date Episodic/Chronic Acute and unspecified renal failure (20 sources) Acute injury of kidney; Translations: [Acute kidney injury] Onset: 09-27-2024 Resolved: 12-02-2022 11-27-2021 Episodic Comment on above: From ER 11-17- creat 2.7 will rpeat Acute posthemorrhagic anemia (1 source) Acute posthemorrhagic anemia; Translations: [Acute posthemorrhagic anemia] Onset: 07-10-2024 Episodic Bacterial infection; unspecified site (6 sources) Bacteremia caused by Gram-negative bacteria; Translations: [Bacteremia] Onset: 09-26-2024 09-21-2024 Episodic Deficiency and other anemia (1 source) Anemia, unspecified; Translations: [Anemia, unspecified] Onset: 06-29-2024 Episodic Diabetes mellitus with complications (19 sources) Diabetes mellitus with complications Diabetes mellitus without complication (20 sources) Hyperglycemia; Translations: [Hyperglycemia] Onset: 06-19-2024 02-11-2022 Episodic Nutritional deficiencies (4 sources) Iron deficiency; Translations: [Iron deficiency] Onset: 06-19-2024 06-14-2024 Episodic Other injuries and conditions due to external causes (1 source) Unspecified injury of head, initial encounter; Translations: [Unspecified injury of head, initial encounter] Onset: 10-16-2024 Episodic Other nutritional; endocrine; and metabolic disorders (1 source) Personal history of other endocrine, nutritional and metabolic disease; Translations: [Personal history of other endocrine, nutritional and metabolic disease] Onset: 09-26-2024 Episodic Residual codes; unclassified (1 source) Disorientation, unspecified; Translations: [Disorientation, unspecified] Onset: 10-16-2024 Episodic Septicemia (except in labor) (20 sources) Sepsis; Translations: [Sepsis, unspecified organism] Onset: 09-27-2024 Resolved: 06-10-2023 11-22-2022 Episodic Thyroid disorders (4 sources) Sick-euthyroid syndrome; Translations: [Sick-euthyroid syndrome] Onset: 06-19-2024 06-24-2024 Episodic Unclassified (20 sources) Pregnancies (); Translations: [Pregnancies ()] 10-14-2021 Comment on above: 4 with 4 live births Unclassified (20 sources) Elevated sed rate Unclassified (20 sources) CRP elevated Unclassified (20 sources) Elevated d-dimer Unclassified (20 sources) Nutritional counseling Unclassified (20 sources) Colon cancer screening (Renamed from Encounter for screening for malignant neoplasm of colon) Unclassified (20 sources) Postmenopausal (Renamed from Postmenopausal status) Unclassified (20 sources) Encounter for screening mammogram for breast cancer (Renamed from Encounter for screening mammogram for malignant neoplasm of breast) Unclassified (20 sources) Encounter for annual general medical examination with abnormal findings in adult Unclassified (20 sources) Abnormal TSH Unclassified (20 sources) Compression fracture of T6 vertebra, initial encounter Unclassified (20 sources) Compression fracture of T7 vertebra Unclassified (20 sources) Unspecified Diagnosis Resolved: 08-04-2023 02-18-2022 Unclassified (20 sources) Non-smoker Unclassified (18 sources) BMI 26.0-26.9,adult Unclassified (8 sources) BMI 24.0-24.9, adult Unclassified (10 sources) Pulmonary vascular congestion Unclassified (1 source) Creatinine level - finding; Translations: [High creatinine] 07-09-2023 Urinary tract infections (20 sources) Acute urinary tract infection; Translations: [Urinary tract infection, site not specified] Onset: 09-26-2024 Resolved: 12-02-2022 11-22-2022 Episodic Comment on above: IM rocephin 1gm nowo ral atb therapy. check renal function and cbcrecent hospitalization for UTI, not uroseptic, did not have f/u. multiple drug allergies but tolerates cefdinir. dip today +, will initiate treatment. education given on red flags. not currently confused. foul smelling urine Viral infection (20 sources) Disease caused by 2019-nCoV NEGATED: Highlighted row has been ruled out!Residual codes; unclassified (1 source) Disease Episodic Results Test Name Value Interpretation Reference Range Facility Endocrinology Visit Reporton 03-06-2025 Endocrinology Visit Report Normal [facility] Oncology Visit Reporton 01-23 Oncology Visit Report Normal [facility] Absolute lymphocyte countOrd ered By: Silvestre Rossi on 02-13-2025 Lymphocytes Auto (Unsp spec) [#/Vol] 2.46 10*3/uL 0.83-4.51 [facility] Absolute neutrophil countOrd ered By: Silvestre Rossi on 02-13-2025 Neutrophils (Bld) [#/Vol] 6.3 10*3/uL 2.0-7.7 [facility] Anion gap in Serum or Plasma Ordered By: Silvestre Rossi on 02-13-2025 Anion gap [Moles/Vol] 9 mmol/L 5-15 [facility] Automated lymphocyte count a s percentage of total leukocytesOrdered By: Silvestre Rossi on 02-13-2025 Lymphocytes/100 WBC Auto (Unsp spec) 25.2 % 19-41 [facility] BUN/creatinine ratioOrdered By: Silvestre Rossi on 02-13-2025 Urea nitrogen/Creatinine [Mass ratio] 25.9 mg/mg High 10-20 [facility] Basophil percentageOrdered B y: Silvestre Rossi on 02-13-2025 Basophils/100 WBC (Bld) 1.0 % 0-1 [facility] Bilirubin, totalOrdered By: Silvestre Rossi on 02-13-2025 Bilirubin [Mass/Vol] 0.19 mg/dL 0.00-1.30 [facility] Blood polychromasia detectio n by light microscopyOrdered By: Silvestre Rossi on 02-13-2025 Polychromasia LM Ql (Bld) 1+ [facility] CBC W/Diff, Automatedon 01-23 Anisocytosis Ql (Bld) 2+ Normal [facility] Comment on above: Performed By: #### L 100.9950, L503.6030, L501.2300, L501.6710, L501.5200, L503.6550, L504.2610, L100.0100, L101.9900, L500.4050, L503.0106 ####[facility] [address] [place], [place], [id number] POLYCHROMASIA 1+ Normal [facility] Comment on above: Performed By: #### L 100.9950, L503.6030, L501.2300, L501.6710, L501.5200, L503.6550, L504.2610, L100.0100, L101.9900, L500.4050, L503.0106 ####[facility] [address] [place], [address] CRPon 02-13-2025 C-REACTIVE PROT 7.85 mg/L High 0.0-3.0 [facility] Comment on above: Performed By: #### L 100.9950, L503.6030, L501.2300, L501.6710, L501.5200, L503.6550, L504.2610, L100.0100, L101.9900, L500.4050, L503.0106 ####[facility] [address] [place], [place], [phone] Carbon dioxide, total [Moles /volume] in Central venous bloodOrdered By: Silvestre Rossi on 02-13-2025 CO2 [Moles/Vol] 27.3 mmol/L 21.0-32.0 [facility] Chloride assayOrdered By: Chantell Rossi on 02-13-2025 Chloride [Moles/Vol] 101 mmol/L 98-108 [facility] Comprehensive Metabolic Prof ilon 02-13-2025 Albumin [Mass/Vol] 3.7 g/dL Normal 3.4-4.8 [facility] Comment on above: Performed By: #### L 100.9950, L503.6030, L501.2300, L501.6710, L501.5200, L503.6550, L504.2610, L100.0100, L101.9900, L500.4050, L503.0106 ####[facility] [address] [place], [address] Albumin/Globulin [Mass ratio] 1.1 {ratio} Normal 0.9-2.4 [facility] Comment on above: Performed By: #### L 100.9950, L503.6030, L501.2300, L501.6710, L501.5200, L503.6550, L504.2610, L100.0100, L101.9900, L500.4050, L503.0106 ####[facility] [address] [place], [address] ALK PHOS 84 U/L Normal 35-104 [facility] Comment on above: Performed By: #### L 100.9950, L503.6030, L501.2300, L501.6710, L501.5200, L503.6550, L504.2610, L100.0100, L101.9900, L500.4050, L503.0106 ####[facility] [address] [place], [address] ALT [Catalytic activity/Vol] 15 U/L Normal <=34 [facility] Comment on above: Performed By: #### L 100.9950, L503.6030, L501.2300, L501.6710, L501.5200, L503.6550, L504.2610, L100.0100, L101.9900, L500.4050, L503.0106 ####[facility] [address] [place], [address] AST [Catalytic activity/Vol] 15 U/L Normal <=31 [facility] Comment on above: Performed By: #### L 100.9950, L503.6030, L501.2300, L501.6710, L501.5200, L503.6550, L504.2610, L100.0100, L101.9900, L500.4050, L503.0106 ####[facility] [address] [place], [place], [id number] Bilirubin [Mass/Vol] 0.19 mg/dL Normal 0.00-1.30 [facility] Comment on above: Performed By: #### L 100.9950, L503.6030, L501.2300, L501.6710, L501.5200, L503.6550, L504.2610, L100.0100, L101.9900, L500.4050, L503.0106 ####[facility] [address] [place], [place], [phone] BUN/CRE 25.9 RATIO High 10-20 [facility] Comment on above: Performed By: #### L 100.9950, L503.6030, L501.2300, L501.6710, L501.5200, L503.6550, L504.2610, L100.0100, L101.9900, L500.4050, L503.0106 ####[facility] [address] [place], [address] Calcium [Mass/Vol] 9.1 mg/dL Normal 7.6-11.0 [facility] Comment on above: Performed By: #### L 100.9950, L503.6030, L501.2300, L501.6710, L501.5200, L503.6550, L504.2610, L100.0100, L101.9900, L500.4050, L503.0106 ####[facility] [address] [place], [address] Chloride [Moles/Vol] 101 mmol/L Normal 98-108 [facility] Comment on above: Performed By: #### L 100.9950, L503.6030, L501.2300, L501.6710, L501.5200, L503.6550, L504.2610, L100.0100, L101.9900, L500.4050, L503.0106 ####[facility] [address] [place], [address] CO2 [Moles/Vol] 27.3 mmol/L Normal 21.0-32.0 [facility] Comment on above: Performed By: #### L 100.9950, L503.6030, L501.2300, L501.6710, L501.5200, L503.6550, L504.2610, L100.0100, L101.9900, L500.4050, L503.0106 ####[facility] [address] [place], [place], [phone]) Creatinine [Mass/Vol] 1.22 mg/dL High 0.70-1.20 [facility] Comment on above: Performed By: #### L 100.9950, L503.6030, L501.2300, L501.6710, L501.5200, L503.6550, L504.2610, L100.0100, L101.9900, L500.4050, L503.0106 ####[facility] [address] [place], [place], [phone] ECRCL 36.54 ml/min Low 50-250 [facility] Comment on above: Performed By: #### L 100.9950, L503.6030, L501.2300, L501.6710, L501.5200, L503.6550, L504.2610, L100.0100, L101.9900, L500.4050, L503.0106 ####[facility] [address] [place], [place], [phone] GAP 9 Normal 5-15 [facility] Comment on above: Performed By: #### L 100.9950, L503.6030, L501.2300, L501.6710, L501.5200, L503.6550, L504.2610, L100.0100, L101.9900, L500.4050, L503.0106 ####[facility] [address] [place], [address] GFR/1.73 sq M.predicted among non-blacks MDRD (S/P/Bld) [Vol rate/Area] 45 mL/min/{1.73_m2} Low >60 [facility] Comment on above: Result Comment: mL/m in/1.73m2 CKD-EPI Creatinine Equation (2020) Performed By: #### L 100.9950, L503.6030, L501.2300, L501.6710, L501.5200, L503.6550, L504.2610, L100.0100, L101.9900, L500.4050, L503.0106 ####[facility] [address] [place], [place], [phone] Globulin (S) [Mass/Vol] 3.4 g/dL Normal 2.2-4.2 [facility] Comment on above: Performed By: #### L 100.9950, L503.6030, L501.2300, L501.6710, L501.5200, L503.6550, L504.2610, L100.0100, L101.9900, L500.4050, L503.0106 ####[facility] [address] [place], [address] Glucose [Mass/Vol] 122 mg/dL High 70-99 [facility] Comment on above: Performed By: #### L 100.9950, L503.6030, L501.2300, L501.6710, L501.5200, L503.6550, L504.2610, L100.0100, L101.9900, L500.4050, L503.0106 ####[facility] [address] [place], [place], [phone]) Potassium [Moles/Vol] 5.1 mmol/L Normal 3.3-5.1 [facility] Comment on above: Performed By: #### L 100.9950, L503.6030, L501.2300, L501.6710, L501.5200, L503.6550, L504.2610, L100.0100, L101.9900, L500.4050, L503.0106 ####[facility] [address] [place], [place], [phone](158) Sodium [Moles/Vol] 137 mmol/L Normal 133-145 [facility] Comment on above: Performed By: #### L 100.9950, L503.6030, L501.2300, L501.6710, L501.5200, L503.6550, L504.2610, L100.0100, L101.9900, L500.4050, L503.0106 ####[facility] [address] [place], [place], [phone](549) T PROT 7.1 g/dL Normal 5.9-8.4 [facility] Comment on above: Performed By: #### L 100.9950, L503.6030, L501.2300, L501.6710, L501.5200, L503.6550, L504.2610, L100.0100, L101.9900, L500.4050, L503.0106 ####[facility] [address] [place], [address] Urea nitrogen [Mass/Vol] 32 mg/dL High 4-19 [facility] Comment on above: Performed By: #### L 100.9950, L503.6030, L501.2300, L501.6710, L501.5200, L503.6550, L504.2610, L100.0100, L101.9900, L500.4050, L503.0106 ####[facility] [address] [place], [address] Eosinophil percentageOrdered By: Silvestre Rossi on 02-13-2025 Eosinophils/100 WBC (Bld) 1.6 % 0-5 [facility] Erythrocyte Sed Rateon 02-13 SED RATE 39 mm/hr High 0-30 [facility] Comment on above: Performed By: #### L 100.9950, L503.6030, L501.2300, L501.6710, L501.5200, L503.6550, L504.2610, L100.0100, L101.9900, L500.4050, L503.0106 ####[facility] [address] [place], [address] Erythrocyte distribution wid th ratioOrdered By: Silvestre Rossi on 02-13-2025 Erythrocyte distribution width (RBC) [Ratio] 18.6 % High 11.6-14.6 [facility] Erythrocyte distribution wid th standard deviationOrdered By: Silvestre Rossi on 02-13-2025 Erythrocyte distribution width (RBC) [Ratio] 55.1 fl High 35.1-43.9 [facility] Erythrocyte sedimentation ra teOrdered By: Silvestre Rossi on 02-13-2025 ESR (Bld) [Velocity] 39 mm/h High 0-30 [facility] Ferritinon 02-13-2025 Ferritin [Mass/Vol] 43 ng/mL Normal 22-378 [facility] Comment on above: Performed By: #### L 100.9950, L503.6030, L501.2300, L501.6710, L501.5200, L503.6550, L504.2610, L100.0100, L101.9900, L500.4050, L503.0106 ####[facility] [address] [place], [address] Glomerular filtration rate ( GFR) estimation/1.73 sq m using serum, plasma, or whole bOrdered By: Silvestre Rossi on 02-13-2025 GFR/1.73 sq M.predicted among non-blacks MDRD (S/P/Bld) [Vol rate/Area] 45 mL/min/{1.73_m2} Low >60 [facility] Comment on above: mL/min/1.73m2 CKD-EP I Creatinine Equation (2020) Hematocrit Auto (Bld) [Volum e fraction]Ordered By: Silvestre Rossi on 02-13-2025 Hematocrit (Bld) [Volume fraction] 34.2 % Low 37-47 [facility] Hemoglobin measurementOrdere d By: Silvestre Rossi on 02-13-2025 Hemoglobin (Bld) [Mass/Vol] 10.5 g/dL Low 12.0-15.0 [facility] Immature granulocytes/100 WB C Auto (Bld)Ordered By: Silvestre Rossi on 02-13-2025 Immature granulocytes/100 WBC (Bld) 0.500 % 0.0-0.9 [facility] Comment on above: IG% - Immature Granu locytes (promyelocytes, myelocytes and metamyelocytes) > 1% indicates that a LEFT SHIFT is Present. Immature platelet percentage Ordered By: Silvestre Rossi on 02-13-2025 Platelets reticulated/100 platelets Auto (Bld) 1.9 % 1.0-7.9 [facility] Comment on above: Low PLT + Low IPF alston ggest a bone marrow production disorderLow PLT + high IPF suggests peripheral destruction(e.g.ITP, TTP, HIT, DIC, autoimmune) or bone marrow recoveryTrending of serial IPF measurements is recommended when evaluating for bone marrow responesValue above normal range indicates an increase in RBC cellular response from bone marrow. Iron measurement (mass/mass) Ordered By: Silvestre Rossi on 02-13-2025 Iron (Unsp spec) [Mass/Mass] 22 ug/dL Low 50-170 [facility] Iron+Iron Binding Capacityon 02-13-2025 Iron [Mass/Vol] 22 ug/dL Low 50-170 [facility] Comment on above: Performed By: #### L 100.9950, L503.6030, L501.2300, L501.6710, L501.5200, L503.6550, L504.2610, L100.0100, L101.9900, L500.4050, L503.0106 ####[facility] [address] [place], [place], [phone] UIBC 290 ug/dL Normal 228-428 [facility] Comment on above: Performed By: #### L 100.9950, L503.6030, L501.2300, L501.6710, L501.5200, L503.6550, L504.2610, L100.0100, L101.9900, L500.4050, L503.0106 ####[facility] [address] [place], [place], [phone] LDHon 02-13-2025 LDH 149 U/L Normal 84-246 [facility] Comment on above: Order Comment: 1 Performed By: #### L 100.9950, L503.6030, L501.2300, L501.6710, L501.5200, L503.6550, L504.2610, L100.0100, L101.9900, L500.4050, L503.0106 ####[facility] [address] [place], [place], [id number] Laboratory - Chemistry and C hemistry - challengeOrdered By: [facility] on 02-13-2025 AST [Catalytic activity/Vol] 15 U/L <32 [facility] Laboratory - Hematology and Cell countsOrdered By: [facility] on 02-13-2025 Anisocytosis Ql (Bld) 2+ [facility] Lactate dehydrogenase (LDH) measurementOrdered By: [facility] on 02-13-2025 LDH [Catalytic activity/Vol] 149 U/L 84-246 [facility] MCV (mean corpuscular volume ) determinationOrdered By: [facility] on 02-13-2025 MCV (RBC) [Entitic vol] 82.2 fL 81-99 [facility] Magnesiumon 02-13-2025 Magnesium [Mass/Vol] 3.1 mg/dL High 1.5-2.2 [facility] Comment on above: Performed By: #### L 100.9950, L503.6030, L501.2300, L501.6710, L501.5200, L503.6550, L504.2610, L100.0100, L101.9900, L500.4050, L503.0106 ####[facility] [address] [place], [place], [phone] Magnesium measurement (mass/ volume)Ordered By: [facility] on 02-13-2025 Magnesium (Unsp spec) [Mass/Vol] 3.1 mg/dL High 1.5-2.2 [facility] Mean corpuscular hemoglobin (MCH) determinationOrdered By: [facility] on 02-13-2025 MCH (RBC) [Entitic mass] 25.2 pg Low 27.0-32.0 [facility] Mean corpuscular hemoglobin concentration (MCHC) determinationOrdered By: [facility] on 02-13-2025 MCHC (RBC) [Mass/Vol] 30.7 g/dL Low 32-36 [facility] Mean platelet volume determi nationOrdered By: [facility] on 02-13-2025 Platelet mean volume (Bld) [Entitic vol] 9.9 fL 6.2-12.0 [facility] Monocyte percentageOrdered B y: Silvestre Rossi on 02-13-2025 Monocytes/100 WBC (Bld) 7.0 % 0-10 [facility] Neutrophil percentageOrdered By: Silvestre [place] on 02-13-2025 Neutrophils/100 WBC (Bld) 64.7 % 47-70 [facility] No Panel InformationOrdered By: Silvestre Rossi on 02-13-2025 Unsaturated Iron Binding Capacity 290 ug/dL 228-428 [facility] Nucleated red blood cell per centageOrdered By: Silvestre Rossi on 02-13-2025 Nucleated RBC/100 WBC (Bld) [Ratio] 0 % 0-5 [facility] Oncology Visit Reporton 01-23 Oncology Visit Report Normal [facility] Phosphoruson 02-13-2025 Phosphate [Mass/Vol] 4.2 mg/dL Normal 2.7-4.5 [facility] Comment on above: Performed By: #### L 100.9950, L503.6030, L501.2300, L501.6710, L501.5200, L503.6550, L504.2610, L100.0100, L101.9900, L500.4050, L503.0106 ####[facility] [address] [place], [place], [phone] Platelet countOrdered By: Chantell Rossi on 02-13-2025 Platelets (Bld) [#/Vol] 479 10*3/uL High 150-450 [facility] Potassium measurement (mass/ volume)Ordered By: Silvestre Rossi on 02-13-2025 Potassium (Unsp spec) [Mass/Vol] 5.1 mmol/L 3.3-5.1 [facility] RBC Auto (Bld) [#/Vol]Ordere d By: Silvestre Rossi on 02-13-2025 RBC (Bld) [#/Vol] 4.16 10*6/uL Low 4.2-5.4 [facility] Retic Panelon 02-13-2025 IM RET FRACTION 17.70 High 3.00-15.90 [facility] Comment on above: Performed By: #### L 100.9950, L503.6030, L501.2300, L501.6710, L501.5200, L503.6550, L504.2610, L100.0100, L101.9900, L500.4050, L503.0106 ####[facility] [address] [place], [place], [phone] IPF 1.9 Normal 1.0-7.9 [facility] Comment on above: Result Comment: Low PLT + Low IPF suggest a bone marrow production disorderLow PLT + high IPF suggests peripheral destruction(e.g.ITP, TTP, HIT, DIC, autoimmune) or bone marrow recoveryTrending of serial IPF measurements is recommended whenevaluating for bone marrow responesValue above normal range indicates an increase in RBCcellular response from bone marrow. Performed By: #### L 100.9950, L503.6030, L501.2300, L501.6710, L501.5200, L503.6550, L504.2610, L100.0100, L101.9900, L500.4050, L503.0106 ####[facility] [address] [place], [address] RET-HE 30.8 pg Normal 30-35 [facility] Comment on above: Performed By: #### L 100.9950, L503.6030, L501.2300, L501.6710, L501.5200, L503.6550, L504.2610, L100.0100, L101.9900, L500.4050, L503.0106 ####[facility] [address] [place], [place], [phone] Retic Count 2.34 High 0.5-1.5 [facility] Comment on above: Performed By: #### L 100.9950, L503.6030, L501.2300, L501.6710, L501.5200, L503.6550, L504.2610, L100.0100, L101.9900, L500.4050, L503.0106 ####[facility] [address] [place], [address] Reticulocyte hemoglobin equi valent (RET-He) measurementOrdered By: Silvestre Rossi on 02-13-2025 Hemoglobin (Reticulocytes) [Entitic mass] 30.8 pg 30-35 [facility] Reticulocytes Auto (Bld) [#/ Vol]Ordered By: Silvestre Rossi on 02-13-2025 Reticulocytes/100 RBC (Bld) 2.34 % High 0.5-1.5 [facility] Serum creatinine measurement (mass/volume)Ordered By: Silvestre Rossi on 02-13-2025 Creatinine [Mass/Vol] 1.22 mg/dL High 0.70-1.20 [facility] Serum globulin measurementOr dered By: Silvestre Rossi on 02-13-2025 Globulin (S) [Mass/Vol] 3.4 g/dL 2.2-4.2 [facility] Serum glucose measurement (m ass/volume)Ordered By: Silvestre Rossi on 02-13-2025 Glucose [Mass/Vol] 122 mg/dL High 70-99 [facility] Serum or plasma C reactive p rotein measurement (mass/volume)Ordered By: Silvestre Rossi on 02-13-2025 CRP [Mass/Vol] 7.85 mg/L High 0.0-3.0 [facility] Serum or plasma alanine calero otransferase (ALT) measurementOrdered By: Silvestre Rossi on 02-13-2025 ALT [Catalytic activity/Vol] 15 U/L <35 [facility] Serum or plasma albumin jaylen urement (mass/volume)Ordered By: Silvestre Rossi on 02-13-2025 Albumin [Mass/Vol] 3.7 g/dL 3.4-4.8 [facility] Serum or plasma albumin/glob ulin mass ratioOrdered By: Silvestre Rossi 02-13-2025 Albumin/Globulin [Mass ratio] 1.1 {ratio} 0.9-2.4 [facility] Serum or plasma alkaline jessika sphatase measurementOrdered By: Silvestre Rossi on 02-13-2025 ALP [Catalytic activity/Vol] 84 U/L 35-104 [facility] Serum or plasma calcium jaylen urement (mass/volume)Ordered By: Silvestre Rossi on 02-13-2025 Calcium [Mass/Vol] 9.1 mg/dL 7.6-11.0 [facility] Serum or plasma ferritin tyrel surement (mass/volume)Ordered By: Silvestre Rossi on 02-13-2025 Ferritin [Mass/Vol] 43 ng/mL 22-378 [facility] Serum or plasma iron saturat ion measurement (mass fraction)Ordered By: Silvestre Rossi on 02-13-2025 Iron saturation [Mass fraction] 7.1 % Low 13-59 [facility] Comment on above: Previous reported re sult: 7.0 %Edited by: RAMONE on 02/13/25:1723 AMENDED REPORT 02/13/25 172 IRON SATURATION previously reported as: 7.0 L % Serum or plasma urea nitroge n measurement (mass/volume)Ordered By: Silvestre Rossi on 02-13-2025 Urea nitrogen [Mass/Vol] 32 mg/dL High 4-19 [facility] Sodium levelOrdered By: Eliseo Rossi on 02-13-2025 Sodium [Moles/Vol] 137 mmol/L 133-145 [facility] Total proteinOrdered By: Jerod Rossi on 02-13-2025 Protein [Mass/Vol] 7.1 g/dL 5.9-8.4 [facility] Vitamin B12on 02-13-2025 Cobalamin (Vitamin B12) [Mass/Vol] 265 pg/mL Normal 180-914 [facility] Comment on above: Performed By: #### L 100.9950, L503.6030, L501.2300, L501.6710, L501.5200, L503.6550, L504.2610, L100.0100, L101.9900, L500.4050, L503.0106 ####[facility] [address] [place], [place], [id number] Vitamin B12 ser/plasOrdered By: Silvestre Rossi on 02-13-2025 Cobalamin (Vitamin B12) [Mass/Vol] 265 pg/mL 180-914 [facility] White blood cell (WBC) count Ordered By: Silvestre Rossi on 02-13-2025 WBC (Bld) [#/Vol] 9.8 10*3/uL 4.4-11.0 [facility] Comprehensive Metabolic Prof ilon 12-19-2024 Albumin [Mass/Vol] 3.4 g/dL Normal 3.4-4.8 [facility] Comment on above: Performed By: #### L 500.4100, L506.0400, L500.4050, L501.9520 ####[facility] [address] [place], [address] Albumin/Globulin [Mass ratio] 0.9 {ratio} Normal 0.9-2.4 [facility] Comment on above: Performed By: #### L 500.4100, L506.0400, L500.4050, L501.9520 ####[facility] [address] [place], [address] ALK PHOS 92 U/L Normal 35-104 [facility] Comment on above: Performed By: #### L 500.4100, L506.0400, L500.4050, L501.9520 ####[facility] [address] [place], [address] ALT [Catalytic activity/Vol] 13 U/L Normal <=34 [facility] Comment on above: Performed By: #### L 500.4100, L506.0400, L500.4050, L501.9520 ####[facility] [address] [place], [address] Anion gap [Moles/Vol] 16 mmol/L High 5-15 [facility] Comment on above: Performed By: #### L 500.4100, L506.0400, L500.4050, L501.9520 ####[facility] [address] [place], [address] AST [Catalytic activity/Vol] 19 U/L Normal <=31 [facility] Comment on above: Performed By: #### L 500.4100, L506.0400, L500.4050, L501.9520 ####[facility] [address] [place], [address] Bilirubin [Mass/Vol] 0.17 mg/dL Normal 0.00-1.30 [facility] Comment on above: Performed By: #### L 500.4100, L506.0400, L500.4050, L501.9520 ####[facility] [address] [place], [address] BUN/CRE 23.5 RATIO High 10-20 [facility] Comment on above: Performed By: #### L 500.4100, L506.0400, L500.4050, L501.9520 ####[facility] [address] [place], [address] Calcium [Mass/Vol] 9.4 mg/dL Normal 7.6-11.0 [facility] Comment on above: Performed By: #### L 500.4100, L506.0400, L500.4050, L501.9520 ####[facility] [address] [place], [address] Chloride [Moles/Vol] 99 mmol/L Normal 96-108 [facility] Comment on above: Performed By: #### L 500.4100, L506.0400, L500.4050, L501.9520 ####[facility] [address] [place], [address] CO2 [Moles/Vol] 23.5 mmol/L Normal 22.0-29.0 [facility] Comment on above: Performed By: #### L 500.4100, L506.0400, L500.4050, L501.9520 ####[facility] [address] [place], [address] Creatinine [Mass/Vol] 1.1 mg/dL High 0.6-1.0 [facility] Comment on above: Performed By: #### L 500.4100, L506.0400, L500.4050, L501.9520 ####[facility] [address] [place], [address] GFR/1.73 sq M.predicted among non-blacks MDRD (S/P/Bld) [Vol rate/Area] 53 mL/min/{1.73_m2} Low >60 [facility] Comment on above: Result Comment: mL/m in/1.73m2 CKD-EPI Creatinine Equation (2020) Performed By: #### L 500.4100, L506.0400, L500.4050, L501.9520 ####[facility] [address] [place], [address] Globulin (S) [Mass/Vol] 3.7 g/dL Normal 2.2-4.2 [facility] Comment on above: Performed By: #### L 500.4100, L506.0400, L500.4050, L501.9520 ####[facility] [address] [place], [address] Glucose [Mass/Vol] 211 mg/dL High 70-99 [facility] Comment on above: Performed By: #### L 500.4100, L506.0400, L500.4050, L501.9520 ####[facility] [address] [place], [address] Potassium [Moles/Vol] 4.2 mmol/L Normal 3.3-5.1 [facility] Comment on above: Performed By: #### L 500.4100, L506.0400, L500.4050, L501.9520 ####[facility] [address] [place], [address] Sodium [Moles/Vol] 138 mmol/L Normal 133-145 [facility] Comment on above: Performed By: #### L 500.4100, L506.0400, L500.4050, L501.9520 ####[facility] [address] [place], [address] T PROT 7.0 g/dL Normal 5.9-8.4 [facility] Comment on above: Performed By: #### L 500.4100, L506.0400, L500.4050, L501.9520 ####[facility] [address] [place], [address] Urea nitrogen [Mass/Vol] 25 mg/dL High 4-19 [facility] Comment on above: Performed By: #### L 500.4100, L506.0400, L500.4050, L501.9520 ####[facility] [address] [place], [address] L506.1001on 12-19-2024 Vitamin D 25-OH 56.7 ng/mL Normal 30-100 [facility] Comment on above: Result Comment: Rose Marie min D StatusDeficiency: <20 ng/mL (50nmol/L)Insufficiency: 20-30 ng/mL (50-75 nmol/L)Sufficiency: 30-100 ng/mL (75-250 nmol/L)Toxicity: >100 ng/mL (>250 nmol/L) Performed By: #### L 500.4050, L500.4100, L506.1001 ####[facility] [address] [place], [address] Lipid Profileon 12-19-2024 Cholesterol in LDL [Mass/Vol] 87 mg/dL Normal 0-130 [facility] Comment on above: Performed By: #### L 500.4100, L506.0400, L500.4050, L501.9520 ####[facility] [address] [place], [address] T4 Free Directon 12-19-2024 T4 FREE DIRECT 1.30 ng/dL Normal 0.76-1.46 [facility] Comment on above: Performed By: #### L 500.4100, L506.0400, L500.4050, L501.9520 ####[facility] [address] [place], [place], [id number] Thyroid Stim Hormone (TSH)on 12-19-2024 TSH 6.650 uIU/mL High 0.300-4.20 0 [facility] Comment on above: Performed By: #### L 500.4100, L506.0400, L500.4050, L501.9520 ####[facility] [address] [place], [place], [id number] ALP [Catalytic activity/Vol] Ordered By: Delfina Velasquez on 12-18-2024 Serum or plasma alkaline phosphatase measurement 92 U/L 35-104 [facility] ALT [Catalytic activity/Vol] Ordered By: Delfina Velasquez on 12-18-2024 Serum or plasma alanine aminotransferase (ALT) measurement 13 U/L <35 [facility] Albumin [Mass/Vol]Ordered By : Delfina Velasquez on 12-18-2024 Serum or plasma albumin measurement (mass/volume) 3.4 g/dL 3.4-4.8 [facility] Albumin/Globulin [Mass ratio ]Ordered By: Delfina Velasquez on 12-18-2024 Serum or plasma albumin/globulin mass ratio 0.9 RATIO 0.9-2.4 [facility] Anion gap [Moles/Vol]Ordered By: Delfina Velasquez on 12-18-2024 Serum or plasma anion gap determination (moles/volume) 16 High 5-15 [facility] BUN/creatinine ratioOrdered By: Delfina Velasquez on 12-18-2024 Urea nitrogen/Creatinine [Mass ratio] 23.5 mg/mg High 10-20 [facility] BUN/creatinine ratio 23.5 RATIO High 10-20 [facility] Bilirubin, totalOrdered By: Delfina Velasquez on 12-18-2024 Bilirubin [Mass/Vol] 0.17 mg/dL 0.00-1.30 [facility] Bilirubin, total 0.17 mg/dL 0.00-1.30 [facility] Calcium [Mass/Vol]Ordered By : Delfina Velasquez on 12-18-2024 Serum or plasma calcium measurement (mass/volume) 9.4 mg/dL 7.6-11.0 [facility] Carbon dioxide measurementOr dered By: Delfina Velasquez on 12-18-2024 CO2 [Moles/Vol] 23.5 mmol/L 22.0-29.0 [facility] Carbon dioxide measurement 23.5 mmol/L 22.0-29.0 [facility] Chloride measurementOrdered By: Delfina Velasquez on 12-18-2024 Chloride [Moles/Vol] 99 mmol/L 96-108 [facility] Chloride measurement 99 mmol/L 96-108 [facility] Cholesterol [Mass/Vol]Ordere d By: Delfina Velasquez on 12-18-2024 Serum or plasma cholesterol measurement (mass/volume) 161 mg/dL <201 [facility] Cholesterol in HDL [Mass/Vol ]Ordered By: Delfina Velasquez on 12-18-2024 Serum or plasma cholesterol in HDL measurement (mass/volume) 52 mg/dL >40 [facility] Cholesterol in VLDL [Mass/Vo l]Ordered By: Delfina Velasquez on 12-18-2024 Serum or plasma cholesterol in VLDL measurement (mass/volume) 22 mg/dL 5-40 [facility] Comprehensive Metabolic Prof ilon 12-18-2024 ALB Normal 3.4-4.8 [facility] Comment on above: Result Comment: PUTT ING UNDER DIFFERENT REQ Performed By: #### L 500.4050, L500.4100, L506.1001 ####[facility] [address] [place], [address] ALK PHOS Normal 35-104 [facility] Comment on above: Result Comment: PUTT ING UNDER DIFFERENT REQ Performed By: #### L 500.4050, L500.4100, L506.1001 ####[facility] [address] [place], [address] ALT Normal <=34 [facility] Comment on above: Result Comment: PUTT ING UNDER DIFFERENT REQ Performed By: #### L 500.4050, L500.4100, L506.1001 ####[facility] [address] [place], [address] AST Normal <=31 [facility] Comment on above: Result Comment: PUTT ING UNDER DIFFERENT REQ Performed By: #### L 500.4050, L500.4100, L506.1001 ####[facility] [address] [place], [address] BUN Normal 4-19 [facility] Comment on above: Result Comment: PUTT ING UNDER DIFFERENT REQ Performed By: #### L 500.4050, L500.4100, L506.1001 ####[facility] [address] [place], [address] BUN/CRE Normal 10-20 [facility] Comment on above: Result Comment: PUTT ING UNDER DIFFERENT REQ Performed By: #### L 500.4050, L500.4100, L506.1001 ####[facility] [address] [place], [address] Calcium Normal 8.5-10.1 [facility] Comment on above: Result Comment: PUTT ING UNDER DIFFERENT REQ Performed By: #### L 500.4050, L500.4100, L506.1001 ####[facility] [address] [place], [address] CL Normal 98-107 [facility] Comment on above: Result Comment: PUTT ING UNDER DIFFERENT REQ Performed By: #### L 500.4050, L500.4100, L506.1001 ####[facility] [address] [place], [address] CO2 Normal 21.0-32.0 [facility] Comment on above: Result Comment: PUTT ING UNDER DIFFERENT REQ Performed By: #### L 500.4050, L500.4100, L506.1001 ####[facility] [address] [place], [address] CREAT,SERUM Normal 0.6-1.0 [facility] Comment on above: Result Comment: PUTT ING UNDER DIFFERENT REQ Performed By: #### L 500.4050, L500.4100, L506.1001 ####[facility] [address] [place], [address] eGFR Normal >60 [facility] Comment on above: Result Comment: PUTT ING UNDER DIFFERENT REQ Performed By: #### L 500.4050, L500.4100, L506.1001 ####[facility] [address] [place], [address] GAP Normal 5-15 [facility] Comment on above: Result Comment: PUTT ING UNDER DIFFERENT REQ Performed By: #### L 500.4050, L500.4100, L506.1001 ####[facility] [address] [place], [address] GLU Normal 70-99 [facility] Comment on above: Result Comment: PUTT ING UNDER DIFFERENT REQ Performed By: #### L 500.4050, L500.4100, L506.1001 ####[facility] [address] [place], [address] Potassium Normal 3.5-5.1 [facility] Comment on above: Result Comment: PUTT ING UNDER DIFFERENT REQ Performed By: #### L 500.4050, L500.4100, L506.1001 ####[facility] [address] [place], [address] T BILI Normal 0.00-1.30 [facility] Comment on above: Result Comment: PUTT ING UNDER DIFFERENT REQ Performed By: #### L 500.4050, L500.4100, L506.1001 ####[facility] [address] [place], [address] T PROT Normal 5.9-8.4 [facility] Comment on above: Result Comment: PUTT ING UNDER DIFFERENT REQ Performed By: #### L 500.4050, L500.4100, L506.1001 ####[facility] [address] [place], [address] Comprehensive Metabolic Profil Normal 136-145 [facility] Comment on above: Result Comment: PUTT ING UNDER DIFFERENT REQ Performed By: #### L 500.4050, L500.4100, L506.1001 ####[facility] [address] [place], [address] Creatinine [Moles/Vol]Ordere d By: Delfina Velasquez on 12-18-2024 Serum or plasma creatinine measurement (moles/volume) 1.1 mg/dL High 0.6-1.0 [facility] GFR/1.73 sq M.predicted thien g non-blacks MDRD (S/P/Bld) [Vol rate/Area]Ordered By: Delfina Velasquez on 12-18-2024 Glomerular filtration rate (GFR) estimation/1.73 sq m using serum, plasma, or whole b 53 Low >60 [facility] Glomerular filtration rate ( GFR) estimation/1.73 sq m using serum, plasma, or whole bOrdered By: Delfina Velasquez on 12-18-2024 GFR/1.73 sq M.predicted among non-blacks MDRD (S/P/Bld) [Vol rate/Area] 53 mL/min/{1.73_m2} Low >60 [facility] Comment on above: mL/min/1.73m2 CKD-EP I Creatinine Equation (2020) Glucose [Mass/Vol]Ordered By : Delfina Velasquez on 12-18-2024 Serum glucose measurement (mass/volume) 211 mg/dL High 70-99 [facility] Laboratory - Chemistry and C hemistry - challengeOrdered By: Delfina Velasquez on 12-18-2024 AST [Catalytic activity/Vol] 19 U/L <32 [facility] Lipid Profileon 02-25-2025 HDL Normal [facility] Comment on above: Result Comment: PUTT ING UNDER DIFFERENT REQThe drugs N-Acetylcysteine and Metamizole may falselydepress this assay. Performed By: #### L 500.4050, L500.4100, L506.1001 ####[facility] [address] [place], [address] TRIG Normal [facility] Comment on above: Result Comment: PUTT ING UNDER DIFFERENT REQThe drugs N-Acetylcysteine and Metamizole may falselydepress this assay. Performed By: #### L 500.4050, L500.4100, L506.1001 ####[facility] [address] [place], [address] CHOL Normal <=200 [facility] Comment on above: Result Comment: PUTT ING UNDER DIFFERENT REQ Performed By: #### L 500.4050, L500.4100, L506.1001 ####[facility] [address] [place], [address] LDL Normal 0-130 [facility] Comment on above: Result Comment: PUTT ING UNDER DIFFERENT REQ Performed By: #### L 500.4050, L500.4100, L506.1001 ####[facility] [address] [place], [address] VLDL Normal 5-40 [facility] Comment on above: Result Comment: PUTT ING UNDER DIFFERENT REQ Performed By: #### L 500.4050, L500.4100, L506.1001 ####[facility] [address] [place], [address] Low density lipoprotein (LDL ) cholesterol measurementOrdered By: Delfina Velasquez on 12-18-2024 Cholesterol in LDL [Mass/Vol] 87 mg/dL 0-130 [facility] Low density lipoprotein (LDL) cholesterol measurement 87 mg/dL 0-130 [facility] No Panel InformationOrdered By: Delfina Velasquez on 12-18-2024 Vitamin D 25-Hydroxy 56.7 ng/mL 30-100 [facility] Comment on above: Vitamin D StatusDefi ciency: <20 ng/mL (50nmol/L)Insufficiency: 20-30 ng/mL (50-75 nmol/L)Sufficiency: 30-100 ng/mL (75-250 nmol/L)Toxicity: >100 ng/mL (>250 nmol/L) 19 U/L <32 [facility] 56.7 ng/mL 30-100 [facility] Potassium [Moles/Vol]Ordered By: Delfina Velasquez on 12-18-2024 Serum or plasma potassium measurement 4.2 mmol/L 3.3-5.1 [facility] Serum globulin measurementOr dered By: Delfina Velasquez on 12-18-2024 Globulin (S) [Mass/Vol] 3.7 g/dL 2.2-4.2 [facility] Serum globulin measurement 3.7 g/dL 2.2-4.2 [facility] Serum glucose measurement (m ass/volume)Ordered By: Delfina Velasquez on 12-18-2024 Glucose [Mass/Vol] 211 mg/dL High 70-99 [facility] Serum or plasma alanine calero otransferase (ALT) measurementOrdered By: Delfina Velasquez on 12-18-2024 ALT [Catalytic activity/Vol] 13 U/L <35 [facility] Serum or plasma albumin jaylen urement (mass/volume)Ordered By: Delfina Velasquez on 12-18-2024 Albumin [Mass/Vol] 3.4 g/dL 3.4-4.8 [facility] Serum or plasma albumin/glob ulin mass ratioOrdered By: Delfina Velasquez on 12-18-2024 Albumin/Globulin [Mass ratio] 0.9 {ratio} 0.9-2.4 [facility] Serum or plasma alkaline jessika sphatase measurementOrdered By: Delfina Velasquez on 12-18-2024 ALP [Catalytic activity/Vol] 92 U/L 35-104 [facility] Serum or plasma anion gap de termination (moles/volume)Ordered By: Delfina Velasquez on 12-18-2024 Anion gap [Moles/Vol] 16 mmol/L High 5-15 [facility] Serum or plasma calcium jaylen urement (mass/volume)Ordered By: Delfina Velasquez on 12-18-2024 Calcium [Mass/Vol] 9.4 mg/dL 7.6-11.0 [facility] Serum or plasma cholesterol in HDL measurement (mass/volume)Ordered By: Delfina Velasquez on 12-18-2024 Cholesterol in HDL [Mass/Vol] 52 mg/dL >40 [facility] Comment on above: The drugs N-Acetylcy steine and Metamizole may falsely depress this assay. National Cholesterol Education Program (NCEP) guidelines:<40 mg/dL: Low HDL-cholesterol (major risk factor for CHD)>= 60 mg/dL: High HDL-cholesterol (negative risk factor for CHD)HDL-cholesterol is affected by a number of factors, e.g. smoking, exercise, hormones, sex and age. Serum or plasma cholesterol in VLDL measurement (mass/volume)Ordered By: Delfina eVlasquez on 12-18-2024 Cholesterol in VLDL [Mass/Vol] 22 mg/dL 5-40 [facility] Serum or plasma cholesterol measurement (mass/volume)Ordered By: Delfina Velasquez on 12-18-2024 Cholesterol [Mass/Vol] 161 mg/dL <201 [facility] Comment on above: Cholesterol level, D esirable <200 mg/dLBorderline high cholesterol 200-239 mg/dLHigh cholesterol >=240 mg/dLRecommendations of the NCEP Adult Treatment Panel for the following risk-cutoff thresholds for the [place] population. Serum or plasma creatinine m easurement (moles/volume)Ordered By: Delfina Velasquez on 12-18-2024 Creatinine [Moles/Vol] 1.1 mg/dL High 0.6-1.0 [facility] Serum or plasma potassium me asurementOrdered By: Delfina Velasquez on 12-18-2024 Potassium [Moles/Vol] 4.2 mmol/L 3.3-5.1 [facility] Serum or plasma sodium measu rement (moles/volume)Ordered By: Delfina Velasquez on 12-18-2024 Sodium [Moles/Vol] 138 mmol/L 133-145 [facility] Serum or plasma urea nitroge n measurement (mass/volume)Ordered By: Delfina Velasquez on 12-18-2024 Urea nitrogen [Mass/Vol] 25 mg/dL High 4-19 [facility] Sodium [Moles/Vol]Ordered By : Delfina eVlasquez on 12-18-2024 Serum or plasma sodium measurement (moles/volume) 138 mmol/L 133-145 [facility] T4 freeOrdered By: Froilan on 12-18-2024 Free T4 [Mass/Vol] 1.30 ng/dL 0.76-1.46 [facility] T4 free 1.30 ng/dL 0.76-1.46 [facility] TSH DL <= 0.005 mIU/L QnOrde red By: Delfina Velasquez on 12-18-2024 TSH Qn 6.650 uIU/mL High 0.300-4.20 0 [facility] Serum or plasma thyroid stimulating hormone (TSH) measurement by high sensitivity met 6.650 uIU/mL High 0.300-4.20 0 [facility] Total proteinOrdered By: Dasha Velasquez on 12-18-2024 Protein [Mass/Vol] 7.0 g/dL 5.9-8.4 [facility] Total protein 7.0 g/dL 5.9-8.4 [facility] Triglycerides measurementOrd ered By: Delfina Velasquez on 12-18-2024 Triglyceride [Mass/Vol] 110 mg/dL <199 [facility] Comment on above: The drugs N-Acetylcy steine and Metamizole may falsely depress this assay. Normal range: <150 mg/dLBorderline High: 150-199 mg/dLHigh: 200-499 mg/dLVery High: >500 mg/dL Triglycerides measurement 110 mg/dL <199 [facility] Urea nitrogen [Mass/Vol]Orde red By: Delfina Velasquez on 12-18-2024 Serum or plasma urea nitrogen measurement (mass/volume) 25 mg/dL High 4- [facility] Endocrinology Visit Reporton 12-05-2024 Endocrinology Visit Report Normal [facility] Basic Metabolic Profile (BMP )on 10-19-2024 BUN/CRE 18.7 RATIO Normal - [facility] Comment on above: Order Comment: 104 Performed By: #### L 500.2500, L100.0500 ####[facility] [address] [place], [address] CA,Total 8.6 mg/dL Normal 8.5-10.1 [facility] Comment on above: Order Comment: 104 Performed By: #### L 500.2500, L100.0500 ####[facility] [address] [place], [address] Chloride [Moles/Vol] 104 mmol/L Normal 98-107 [facility] Comment on above: Order Comment: 104 Performed By: #### L 500.2500, L100.0500 ####[facility] [address] [place], [address] CO2 [Moles/Vol] 28.0 mmol/L Normal 21.0-32.0 [facility] Comment on above: Order Comment: 104 Performed By: #### L 500.2500, L100.0500 ####[facility] [address] [place], [address] Creatinine [Mass/Vol] 1.07 mg/dL High 0.55-1.02 [facility] Comment on above: Order Comment: 104 Result Comment: The validity of the calculated GFR GFRAA in patients over70 years has not been determined. Clinical correlation isessential. Performed By: #### L 500.2500, L100.0500 ####[facility] [address] [place], [address] EST GFR - AA 63 mL/min Normal >60 [facility] Comment on above: Order Comment: 104 Result Comment: Afri can Eritrean GFR Calc Performed By: #### L 500.2500, L100.0500 ####[facility] [address] [place], [address] GAP 4 Low 5-15 [facility] Comment on above: Order Comment: 104 Performed By: #### L 500.2500, L100.0500 ####[facility] [address] [place], [address] GFR/1.73 sq M.predicted among non-blacks MDRD (S/P/Bld) [Vol rate/Area] 52 mL/min/{1.73_m2} Low >60 [facility] Comment on above: Order Comment: 104 Result Comment: Non- GFR Calc Performed By: #### L 500.2500, L100.0500 ####[facility] [address] [place], [address] Glucose [Mass/Vol] 252 mg/dL High 74-106 [facility] Comment on above: Order Comment: 104 Result Comment: Gluc ose result greater than or equal to 200 mg/dLsuggests DIABETES MELLITUS per A.D.A. criteria. Performed By: #### L 500.2500, L100.0500 ####[facility] [address] [place], [address] Potassium [Moles/Vol] 4.0 mmol/L Normal 3.5-5.1 [facility] Comment on above: Order Comment: 104 Performed By: #### L 500.2500, L100.0500 ####[facility] [address] [place], [address] Sodium [Moles/Vol] 135 mmol/L Low 136-145 [facility] Comment on above: Order Comment: 104 Performed By: #### L 500.2500, L100.0500 ####[facility] [address] [place], [address] Urea nitrogen [Mass/Vol] 20 mg/dL High 7-18 [facility] Comment on above: Order Comment: 104 Performed By: #### L 500.2500, L100.0500 ####[facility] [address] [place], [address] BUN Normal 7-18 [facility] Comment on above: Result Comment: Canc elled via OM: Order cancelled - Patient discharged Performed By: #### L 500.2500, L100.0100 ####[facility] [address] [place], [address] BUN/CRE Normal 10-20 [facility] Comment on above: Result Comment: Canc elled via OM: Order cancelled - Patient discharged Performed By: #### L 500.2500, L100.0100 ####[facility] [address] [place], [address] CA,Total Normal 8.5-10.1 [facility] Comment on above: Result Comment: Canc elled via OM: Order cancelled - Patient discharged Performed By: #### L 500.2500, L100.0100 ####[facility] [address] [place], [address] CL Normal 98-107 [facility] Comment on above: Result Comment: Canc elled via OM: Order cancelled - Patient discharged Performed By: #### L 500.2500, L100.0100 ####[facility] [address] [place], [address] CO2 Normal 21.0-32.0 [facility] Comment on above: Result Comment: Canc elled via OM: Order cancelled - Patient discharged Performed By: #### L 500.2500, L100.0100 ####[facility] [address] [place], [address] CREAT,SERUM Normal 0.55-1.02 [facility] Comment on above: Result Comment: Canc elled via OM: Order cancelled - Patient discharged Performed By: #### L 500.2500, L100.0100 ####[facility] [address] [place], [address] EST GFR Normal >60 [facility] Comment on above: Result Comment: Canc elled via OM: Order cancelled - Patient discharged Performed By: #### L 500.2500, L100.0100 ####[facility] [address] [place], [address] EST GFR - AA Normal >60 [facility] Comment on above: Result Comment: Canc elled via OM: Order cancelled - Patient discharged Performed By: #### L 500.2500, L100.0100 ####[facility] [address] [place], [address] GAP Normal 5-15 [facility] Comment on above: Result Comment: Canc elled via OM: Order cancelled - Patient discharged Performed By: #### L 500.2500, L100.0100 ####[facility] [address] [place], [address] GLU Normal 74-106 [facility] Comment on above: Result Comment: Canc elled via OM: Order cancelled - Patient discharged Performed By: #### L 500.2500, L100.0100 ####[facility] [address] [place], [address] Potassium Normal 3.5-5.1 [facility] Comment on above: Result Comment: Canc elled via OM: Order cancelled - Patient discharged Performed By: #### L 500.2500, L100.0100 ####[facility] [address] [place], [address] Basic Metabolic Profile (BMP) Normal 136-145 [facility] Comment on above: Result Comment: Canc elled via OM: Order cancelled - Patient discharged Performed By: #### L 500.2500, L100.0100 ####[facility] [address] [place], [address] Blood urea nitrogen (BUN)/cr eatinine ratioOrdered By: Jm Denise on 10-19-2024 Blood urea nitrogen (BUN)/creatinine ratio 18.7 [facility] - [facility] CBC W/Diff, Automatedon 12- Absolute Neut Normal 2.0-7.7 [facility] Comment on above: Result Comment: Canc elled via OM: Order cancelled - Patient discharged Performed By: #### L 500.2500, L100.0100 ####[facility] [address] [place], [address] HCT Normal 37-47 [facility] Comment on above: Result Comment: Canc elled via OM: Order cancelled - Patient discharged Performed By: #### L 500.2500, L100.0100 ####[facility] [address] [place], [address] HGB Normal 12.0-15.0 [facility] Comment on above: Result Comment: Canc elled via OM: Order cancelled - Patient discharged Performed By: #### L 500.2500, L100.0100 ####[facility] [address] [place], [address] MCH Normal 27.0-32.0 [facility] Comment on above: Result Comment: Canc elled via OM: Order cancelled - Patient discharged Performed By: #### L 500.2500, L100.0100 ####[facility] [address] [place], [address] MCHC Normal 32-36 [facility] Comment on above: Result Comment: Canc elled via OM: Order cancelled - Patient discharged Performed By: #### L 500.2500, L100.0100 ####[facility] [address] [place], [address] MCV Normal 81-99 [facility] Comment on above: Result Comment: Canc elled via OM: Order cancelled - Patient discharged Performed By: #### L 500.2500, L100.0100 ####[facility] [address] [place], [address] NEUT% Normal 47-70 [facility] Comment on above: Result Comment: Canc elled via OM: Order cancelled - Patient discharged Performed By: #### L 500.2500, L100.0100 ####[facility] [address] [place], [address] PLT Normal 150-450 [facility] Comment on above: Result Comment: Canc elled via OM: Order cancelled - Patient discharged Performed By: #### L 500.2500, L100.0100 ####[facility] [address] [place], [address] RBC Normal 4.2-5.4 [facility] Comment on above: Result Comment: Canc elled via OM: Order cancelled - Patient discharged Performed By: #### L 500.2500, L100.0100 ####[facility] [address] [place], [address] RDW CV Normal 11.6-14.6 [facility] Comment on above: Result Comment: Canc elled via OM: Order cancelled - Patient discharged Performed By: #### L 500.2500, L100.0100 ####[facility] [address] [place], [address] RDW SD Normal 35.1-43.9 [facility] Comment on above: Result Comment: Canc elled via OM: Order cancelled - Patient discharged Performed By: #### L 500.2500, L100.0100 ####[facility] [address] [place], [address] WBC Normal 4.4-11.0 [facility] Comment on above: Result Comment: Canc elled via OM: Order cancelled - Patient discharged Performed By: #### L 500.2500, L100.0100 ####[facility] [address] [place], [address] CBC-Complete Blood Cnt No Di ffon 10-19-2024 Erythrocyte distribution width (RBC) [Ratio] 16.9 % High 11.6-14.6 [facility] Comment on above: Order Comment: 104 Performed By: #### L 500.2500, L100.0500 ####[facility] [address] [place], [address] Hematocrit (Bld) [Volume fraction] 28.5 % Low 37-47 [facility] Comment on above: Order Comment: 104 Performed By: #### L 500.2500, L100.0500 ####[facility] [address] [place], [address] Hemoglobin (Bld) [Mass/Vol] 8.7 g/dL Low 12.0-15.0 [facility] Comment on above: Order Comment: 104 Performed By: #### L 500.2500, L100.0500 ####[facility] [address] [place], [address] MCH (RBC) [Entitic mass] 25.0 pg Low 27.0-32.0 [facility] Comment on above: Order Comment: 104 Performed By: #### L 500.2500, L100.0500 ####[facility] [address] [place], [address] MCHC (RBC) [Mass/Vol] 30.5 g/dL Low 32-36 [facility] Comment on above: Order Comment: 104 Performed By: #### L 500.2500, L100.0500 ####[facility] [address] [place], [address] MCV (RBC) [Entitic vol] 81.9 fL Normal 81-99 [facility] Comment on above: Order Comment: 104 Performed By: #### L 500.2500, L100.0500 ####[facility] [address] [place], [address] Platelet mean volume (Bld) [Entitic vol] 10.5 fL Normal 6.2-12.0 [facility] Comment on above: Order Comment: 104 Performed By: #### L 500.2500, L100.0500 ####[facility] [address] [place], [address] Platelets (Bld) [#/Vol] 410 10*3/uL Normal 150-450 [facility] Comment on above: Order Comment: 104 Performed By: #### L 500.2500, L100.0500 ####[facility] [address] [place], [address] RBC (Bld) [#/Vol] 3.48 10*6/uL Low 4.2-5.4 [facility] Comment on above: Order Comment: 104 Performed By: #### L 500.2500, L100.0500 ####[facility] [address] [place], [address] RDW SD 50.1 fl High 35.1-43.9 [facility] Comment on above: Order Comment: 104 Performed By: #### L 500.2500, L100.0500 ####[facility] [address] [place], [address] WBC (Bld) [#/Vol] 10.5 10*3/uL Normal 4.4-11.0 [facility] Comment on above: Order Comment: 104 Performed By: #### L 500.2500, L100.0500 ####[facility] [address] [place], [address] Calcium [Mass/Vol]Ordered By : Jm Denise on 10-19-2024 Serum or plasma calcium measurement (mass/volume) 8.6 mg/dL 8.5-10.1 [facility] Carbon dioxide measurementOr dered By: Jm Denise on 10-19-2024 Carbon dioxide measurement 28.0 mmol/L 21.0-32.0 [facility] Chloride measurementOrdered By: Jm Denise on 10-19-2024 Chloride measurement 104 mmol/L 98-107 [facility] Creatinine [Mass/Vol]Ordered By: Jm Denise on 10-19-2024 Serum or plasma creatinine measurement (mass/volume) 1.07 mg/dL High 0.55-1.02 [facility] Erythrocyte distribution wid th (RBC) [Entitic vol]Ordered By: Jm Denise on 10-19-2024 Erythrocyte distribution width standard deviation 50.1 fl High 35.1-43.9 [facility] Erythrocyte distribution wid th (RBC) [Ratio]Ordered By: Jm Denise on 10-19-2024 Erythrocyte distribution width ratio 16.9 % High 11.6-14.6 [facility] Estimated glomerular filtrat ion rate (GFR) AmericanOrdered By: Jm Denise on 10-19-2024 Estimated glomerular filtration rate (GFR) 63 mL/min >60 [facility] Glomerular filtration rate ( GFR) estimationOrdered By: Jm Denise on 10-19-2024 Glomerular filtration rate (GFR) estimation 52 mL/min Low >60 [facility] Glucose measurementOrdered B y: Jm Denise on 10-19-2024 Glucose measurement 252 mg/dL High 74-106 [facility] Hematocrit Auto (Bld) [Volum e fraction]Ordered By: Jm Denise on 10-19-2024 Automated blood hematocrit (percentage) 28.5 % Low 37-47 [facility] Hemoglobin measurementOrdere d By: Jm Denise on 10-19-2024 Hemoglobin measurement 8.7 g/dL Low 12.0-15.0 [facility] MCV (RBC) [Entitic vol]Order ed By: Jm Denise on 10-19-2024 MCV (mean corpuscular volume) determination 81.9 fL 81-99 [facility] Mean corpuscular hemoglobin (MCH) determinationOrdered By: Jm Denise on 10-19-2024 Mean corpuscular hemoglobin (MCH) determination 25.0 pg Low 27.0-32.0 [facility] Mean corpuscular hemoglobin concentration (MCHC) determinationOrdered By: Jm Denise on 10-19-2024 Mean corpuscular hemoglobin concentration (MCHC) determination 30.5 g/dL Low 32-36 [facility] Mean platelet volume determi nationOrdered By: Jm Denise on 10-19-2024 Mean platelet volume determination 10.5 fl 6.2-12.0 [facility] Platelet countOrdered By: Chantell Denise on 10-19-2024 Platelet count 410 K/mm3 150-450 [facility] Potassium measurementOrdered By: Jm Denise on 10-19-2024 Potassium measurement 4.0 mmol/L 3.5-5.1 [facility] RBC Auto (Bld) [#/Vol]Ordere d By: Jm Denise on 10-19-2024 Automated blood erythrocyte count 3.48 M/mm3 Low 4.2-5.4 [facility] Serum anion gap measurementO rdered By: Jm Denise on 10-19-2024 Serum anion gap measurement 4 Low 5-15 [facility] Sodium levelOrdered By: Jm Denise on 10-19-2024 Sodium level 135 mmol/L Low 136-145 [facility] Urea nitrogen [Mass/Vol]Orde red By: Jm Denise on 10-19-2024 Serum or plasma urea nitrogen measurement (mass/volume) 20 mg/dL High 7-18 [facility] White blood cell (WBC) count Ordered By: Jm Denise on 10-19-2024 White blood cell (WBC) count 10.5 K/mm3 4.4-11.0 [facility] CBC W/Diff, Automatedon 12-2 Absolute Neut Normal 2.0-7.7 [facility] Comment on above: Result Comment: Canc elled via OM: Order cancelled - Patient discharged Performed By: #### L 100.0100, L500.3400 ####[facility] [address] [place], [address] HCT Normal 37-47 [facility] Comment on above: Result Comment: Canc elled via OM: Order cancelled - Patient discharged Performed By: #### L 100.0100, L500.3400 ####[facility] [address] [place], [address] HGB Normal 12.0-15.0 [facility] Comment on above: Result Comment: Canc elled via OM: Order cancelled - Patient discharged Performed By: #### L 100.0100, L500.3400 ####[facility] [address] [place], [address] MCH Normal 27.0-32.0 [facility] Comment on above: Result Comment: Canc elled via OM: Order cancelled - Patient discharged Performed By: #### L 100.0100, L500.3400 ####[facility] [address] [place], [address] MCHC Normal 32-36 [facility] Comment on above: Result Comment: Canc elled via OM: Order cancelled - Patient discharged Performed By: #### L 100.0100, L500.3400 ####[facility] [address] [place], [address] MCV Normal 81-99 [facility] Comment on above: Result Comment: Canc elled via OM: Order cancelled - Patient discharged Performed By: #### L 100.0100, L500.3400 ####[facility] [address] [place], [address] NEUT% Normal 47-70 [facility] Comment on above: Result Comment: Canc elled via OM: Order cancelled - Patient discharged Performed By: #### L 100.0100, L500.3400 ####[facility] [address] [place], [address] PLT Normal 150-450 [facility] Comment on above: Result Comment: Canc elled via OM: Order cancelled - Patient discharged Performed By: #### L 100.0100, L500.3400 ####[facility] [address] [place], [address] RBC Normal 4.2-5.4 [facility] Comment on above: Result Comment: Canc elled via OM: Order cancelled - Patient discharged Performed By: #### L 100.0100, L500.3400 ####[facility] [address] [place], [address] RDW CV Normal 11.6-14.6 [facility] Comment on above: Result Comment: Canc elled via OM: Order cancelled - Patient discharged Performed By: #### L 100.0100, L500.3400 ####[facility] [address] [place], [address] RDW SD Normal 35.1-43.9 [facility] Comment on above: Result Comment: Canc elled via OM: Order cancelled - Patient discharged Performed By: #### L 100.0100, L500.3400 ####[facility] [address] [place], [address] WBC Normal 4.4-11.0 [facility] Comment on above: Result Comment: Canc elled via OM: Order cancelled - Patient discharged Performed By: #### L 100.0100, L500.3400 ####[facility] [address] [place], [address] Liver Profileon 10-12-2024 ALB Normal 3.2-5.0 [facility] Comment on above: Result Comment: Canc elled via OM: Order cancelled - Patient discharged Performed By: #### L 100.0100, L500.3400 ####[facility] [address] [place], [address] ALK P Normal 45-117 [facility] Comment on above: Result Comment: Canc elled via OM: Order cancelled - Patient discharged Performed By: #### L 100.0100, L500.3400 ####[facility] [address] [place], [address] ALT Normal 13-56 [facility] Comment on above: Result Comment: Canc elled via OM: Order cancelled - Patient discharged Performed By: #### L 100.0100, L500.3400 ####[facility] [address] [place], [address] AST Normal 15-37 [facility] Comment on above: Result Comment: Canc elled via OM: Order cancelled - Patient discharged Performed By: #### L 100.0100, L500.3400 ####[facility] [address] [place], [address] D BILI Normal 0.00-0.30 [facility] Comment on above: Result Comment: Canc elled via OM: Order cancelled - Patient discharged Performed By: #### L 100.0100, L500.3400 ####[facility] [address] [place], [address] T BILI Normal 0.20-1.00 [facility] Comment on above: Result Comment: Canc elled via OM: Order cancelled - Patient discharged Performed By: #### L 100.0100, L500.3400 ####[facility] [address] [place], [address] T PROT Normal 6.4-8.2 [facility] Comment on above: Result Comment: Canc elled via OM: Order cancelled - Patient discharged Performed By: #### L 100.0100, L500.3400 ####[facility] [address] [place], [address] Bedside Glucoseon 10-09-2024 FINGERSTICK GLU 214 mg/dL [address] [facility] Comment on above: Result Comment: RAJIV GEMENT OF PATIENT CARE PER NURSING PROTOCOL Performed By: #### L 501.080 ####[facility] [address] [place], [address] Glucose measurement at bedsi deOrdered By: Camilo Barrett on 10-09-2024 Glucose measurement at bedside 214 mg/dL High 74-106 [facility] Bedside Glucoseon 10-08-2024 FINGERSTICK GLU 379 mg/dL [address] [facility] Comment on above: Result Comment: RAJIV GEMENT OF PATIENT CARE PER NURSING PROTOCOL Performed By: #### L 501.080 ####[facility] [address] [place], [address] FINGERSTICK GLU 244 mg/dL [address] [facility] Comment on above: Result Comment: RAJIV GEMENT OF PATIENT CARE PER NURSING PROTOCOL Performed By: #### L 501.080 ####[facility] [address] [place], [address] FINGERSTICK GLU 255 mg/dL High 74-106 [facility] Comment on above: Result Comment: RAJIV GEMENT OF PATIENT CARE PER NURSING PROTOCOL Performed By: #### L 501.080 ####[facility] [address] [place], [address] FINGERSTICK GLU 112 mg/dL High 74-106 [facility] Comment on above: Result Comment: RAJIV GEMENT OF PATIENT CARE PER NURSING PROTOCOL Performed By: #### L 501.080 ####[facility] [address] [place], [address] FINGERSTICK GLU 80 mg/dL Normal 74-106 [facility] Comment on above: Result Comment: RAJIV GEMENT OF PATIENT CARE PER NURSING PROTOCOL Performed By: #### L 501.080 ####[facility] [address] [place], [address] COVID 19 AG RAPID (KRISTINE Stoll)on 10-08-2024 SARS-CoV-2 (COVID-19) RNA MYRIAM+probe Ql (Unsp spec) SARS-CoV-2 (COVID 19) Negative RAPID METHOD BinaxNow COVID19 Ag Card Normal [facility] Comment on above: Performed By: #### M 100.505 ####[facility] [address] [place], [address] Bedside Glucoseon 10-07-2024 FINGERSTICK GLU 132 mg/dL High 74-106 [facility] Comment on above: Result Comment: RAJIV GEMENT OF PATIENT CARE PER NURSING PROTOCOL Performed By: #### L 501.080 ####[facility] [address] [place], [address] FINGERSTICK GLU 119 mg/dL High 74-106 [facility] Comment on above: Result Comment: RAJIV GEMENT OF PATIENT CARE PER NURSING PROTOCOL Performed By: #### L 501.080 ####[facility] [address] [place], [address] FINGERSTICK GLU 161 mg/dL High 74-106 [facility] Comment on above: Result Comment: RAJIV GEMENT OF PATIENT CARE PER NURSING PROTOCOL Performed By: #### L 501.080 ####[facility] [address] [place], [address] FINGERSTICK GLU 94 mg/dL Normal 74-106 [facility] Comment on above: Result Comment: RAJIV GEMENT OF PATIENT CARE PER NURSING PROTOCOL Performed By: #### L 501.080 ####[facility] [address] [place], [address] FINGERSTICK GLU 70 mg/dL Low 74-[address] [place] [address] Comment on above: Result Comment: RAJIV GEMENT OF PATIENT CARE PER NURSING PROTOCOL Performed By: #### L 501.080 ####[facility] [address] [place], [address] Bedside Glucoseon 10-06-2024 FINGERSTICK GLU 224 mg/dL High -106 [facility] [facility] Comment on above: Result Comment: RAJIV GEMENT OF PATIENT CARE PER NURSING PROTOCOL Performed By: #### L 501.080 ####[facility] [address] [place], [address] FINGERSTICK GLU 236 mg/dL High -106 [facility] Comment on above: Result Comment: RAJIV GEMENT OF PATIENT CARE PER NURSING PROTOCOL Performed By: #### L 501.080 ####[facility] [address] [place], [address] FINGERSTICK GLU 217 mg/dL High -106 [facility] Comment on above: Result Comment: RAJIV GEMENT OF PATIENT CARE PER NURSING PROTOCOL Performed By: #### L 501.080 ####[facility] [address] [place], [address] FINGERSTICK GLU 113 mg/dL High 74-106 [facility] Comment on above: Result Comment: RAJIV GEMENT OF PATIENT CARE PER NURSING PROTOCOL Performed By: #### L 501.080 ####[facility] [address] [place], [address] FINGERSTICK GLU 67 mg/dL Low 74-106 [facility] Comment on above: Result Comment: RAJIV GEMENT OF PATIENT CARE PER NURSING PROTOCOL Performed By: #### L 501.080 ####[facility] [address] [place], [address] FINGERSTICK GLU 48 mg/dL Low 74-106 [facility] Comment on above: Result Comment: RAJIV GEMENT OF PATIENT CARE PER NURSING PROTOCOL Performed By: #### L 501.080 ####[facility] [address] [place], [address] ALP [Catalytic activity/Vol] Ordered By: Camilo Barrett on 10-05-2024 Serum or plasma alkaline phosphatase measurement 69 U/L 45-117 [facility] ALT [Catalytic activity/Vol] Ordered By: Camilo Barrett on 10-05-2024 Serum or plasma alanine aminotransferase (ALT) measurement 11 U/L Low 13-56 [facility] Absolute neutrophil countOrd ered By: Camilo Barrett on 10-05-2024 Absolute neutrophil count 3.5 X10^3/uL 2.0-7.7 [facility] Albumin [Mass/Vol]Ordered By : Camilo Barrett on 10-05-2024 Serum or plasma albumin measurement (mass/volume) 2.5 g/dL Low 3.2-5.0 [facility] Basic Metabolic Profile (BMP )on 10-05-2024 BUN/CRE 28.8 RATIO High 10-20 [facility] Comment on above: Performed By: #### L 500.3400, L500.2500, L100.0100 ####[facility] [address] [place], [address] CA,Total 8.9 mg/dL Normal 8.5-10.1 [facility] Comment on above: Performed By: #### L 500.3400, L500.2500, L100.0100 ####[facility] [address] [place], [address] Chloride [Moles/Vol] 109 mmol/L High 98-107 [facility] Comment on above: Performed By: #### L 500.3400, L500.2500, L100.0100 ####[facility] [address] [place], [address] CO2 [Moles/Vol] 28.0 mmol/L Normal 21.0-32.0 [facility] Comment on above: Performed By: #### L 500.3400, L500.2500, L100.0100 ####[facility] [address] [place], [address] Creatinine [Mass/Vol] 1.04 mg/dL High 0.55-1.02 [facility] Comment on above: Result Comment: The validity of the calculated GFR GFRAA in patients over70 years has not been determined. Clinical correlation isessential. Performed By: #### L 500.3400, L500.2500, L100.0100 ####[facility] [address] [place], [address] ECRCL 43.20 ml/min Normal [facility] Comment on above: Performed By: #### L 500.3400, L500.2500, L100.0100 ####[facility] [address] [place], [address] EST GFR - AA 65 mL/min Normal >60 [facility] Comment on above: Result Comment: Afri can Eritrean GFR Calc Performed By: #### L 500.3400, L500.2500, L100.0100 ####[facility] [address] [place], [address] GAP 4 Low 5-15 [facility] Comment on above: Performed By: #### L 500.3400, L500.2500, L100.0100 ####[facility] [address] [place], [address] GFR/1.73 sq M.predicted among non-blacks MDRD (S/P/Bld) [Vol rate/Area] 54 mL/min/{1.73_m2} Low >60 [facility] Comment on above: Result Comment: Non- GFR Calc Performed By: #### L 500.3400, L500.2500, L100.0100 ####[facility] [address] [place], [address] Glucose [Mass/Vol] 119 mg/dL High 74-106 [facility] Comment on above: Result Comment: Fast ing Glucose result from 100 to 125 mg/dLsuggests IMPAIRED HOMEOSTASIS per A.D.A. criteria. Performed By: #### L 500.3400, L500.2500, L100.0100 ####[facility] [address] [place], [address] Potassium [Moles/Vol] 3.9 mmol/L Normal 3.5-5.1 [facility] Comment on above: Performed By: #### L 500.3400, L500.2500, L100.0100 ####[facility] [address] [place], [address] Sodium [Moles/Vol] 141 mmol/L Normal 136-145 [facility] Comment on above: Performed By: #### L 500.3400, L500.2500, L100.0100 ####[facility] [address] [place], [address] Urea nitrogen [Mass/Vol] 30 mg/dL High 7-18 [facility] Comment on above: Performed By: #### L 500.3400, L500.2500, L100.0100 ####[facility] [address] [place], [address] Basophil percentageOrdered B y: Camilo Barrett on 10-05-2024 Basophil percentage 1.2 % High 0-1 [facility] Bedside Glucoseon 10-05-2024 FINGERSTICK GLU 267 mg/dL High 74-106 [facility] Comment on above: Result Comment: RAJIV GEMENT OF PATIENT CARE PER NURSING PROTOCOL Performed By: #### L 501.080 ####[facility] [address] [facility] [address] FINGERSTICK GLU 351 mg/dL High 74-106 [facility] Comment on above: Result Comment: RAJIV GEMENT OF PATIENT CARE PER NURSING PROTOCOL Performed By: #### L 501.080 ####[facility] [address] [place], [address] FINGERSTICK GLU 197 mg/dL High -106 [facility] Comment on above: Result Comment: RAJIV GEMENT OF PATIENT CARE PER NURSING PROTOCOL Performed By: #### L 501.080 ####[facility] [address] [place], [address] FINGERSTICK GLU 111 mg/dL High [address] [facility] Comment on above: Result Comment: RAJIV GEMENT OF PATIENT CARE PER NURSING PROTOCOL Performed By: #### L 501.080 ####[facility] [address] [place], [address] Bilirubin, totalOrdered By: Camilo Arnold on 10-05-2024 Bilirubin, total 0.20 mg/dL 0.20-1.00 [facility] Bilirubin.direct [Mass/Vol]O rdered By: Camilo Barrett on 10-05-2024 Bilirubin direct 0.07 mg/dL 0.00-0.30 [facility] Blood urea nitrogen (BUN)/cr eatinine ratioOrdered By: Camilo Barrett on 10-05-2024 Blood urea nitrogen (BUN)/creatinine ratio 28.8 RATIO High 10-20 [facility] CBC W/Diff, Automatedon 09-23 Absolute Lymph 2.71 X10 3/uL Normal 0.83-4.51 [facility] Comment on above: Performed By: #### L 500.3400, L500.2500, L100.0100 ####[facility] [address] [place], [address] Absolute Neut 3.5 X10 3/uL Normal 2.0-7.7 [facility] Comment on above: Performed By: #### L 500.3400, L500.2500, L100.0100 ####[facility] [address] [place], [address] Basophils/100 WBC (Bld) 1.2 % High 0-1 [facility] Comment on above: Performed By: #### L 500.3400, L500.2500, L100.0100 ####[facility] [address] [place], [address] Eosinophils/100 WBC (Bld) 5.2 % High 0-5 [facility] Comment on above: Performed By: #### L 500.3400, L500.2500, L100.0100 ####[facility] [address] [place], [address] Erythrocyte distribution width (RBC) [Ratio] 17.4 % High 11.6-14.6 [facility] Comment on above: Performed By: #### L 500.3400, L500.2500, L100.0100 ####[facility] [address] [place], [address] Hematocrit (Bld) [Volume fraction] 28.0 % Low 37-47 [facility] Comment on above: Performed By: #### L 500.3400, L500.2500, L100.0100 ####[facility] [address] [place], [address] Hemoglobin (Bld) [Mass/Vol] 8.6 g/dL Low 12.0-15.0 [facility] Comment on above: Performed By: #### L 500.3400, L500.2500, L100.0100 ####[facility] [address] [place], [address] IG% 0.400 Normal 0.0-0.9 [facility] Comment on above: Result Comment: IG% - Immature Granulocytes (promyelocytes, myelocytes andmetamyelocytes) > 1% indicates that a LEFT SHIFT is Present. Performed By: #### L 500.3400, L500.2500, L100.0100 ####[facility] [address] [place], [address] Lymphocytes/100 WBC (Bld) 36.3 % Normal 19-41 [facility] Comment on above: Performed By: #### L 500.3400, L500.2500, L100.0100 ####[facility] [address] [place], [address] MCH (RBC) [Entitic mass] 25.3 pg Low 27.0-32.0 [facility] Comment on above: Performed By: #### L 500.3400, L500.2500, L100.0100 ####[facility] [address] [place], [address] MCHC (RBC) [Mass/Vol] 30.7 g/dL Low 32-36 [facility] Comment on above: Performed By: #### L 500.3400, L500.2500, L100.0100 ####[facility] [address] [place], [address] MCV (RBC) [Entitic vol] 82.4 fL Normal 81-99 [facility] Comment on above: Performed By: #### L 500.3400, L500.2500, L100.0100 ####[facility] [address] [place], [address] Monocytes/100 WBC (Bld) 9.5 % Normal 0-10 [facility] Comment on above: Performed By: #### L 500.3400, L500.2500, L100.0100 ####[facility] [address] [place], [address] Neutrophils/100 WBC (Bld) 47.4 % Normal 47-70 [facility] Comment on above: Performed By: #### L 500.3400, L500.2500, L100.0100 ####[facility] [address] [place], [address] Nucleated RBC (Bld) [#/Vol] 0 10*3/uL Normal 0-5 [facility] Comment on above: Performed By: #### L 500.3400, L500.2500, L100.0100 ####[facility] [address] [place], [address] Platelet mean volume (Bld) [Entitic vol] 10.7 fL Normal 6.2-12.0 [facility] Comment on above: Performed By: #### L 500.3400, L500.2500, L100.0100 ####[facility] [address] [place], [address] Platelets (Bld) [#/Vol] 424 10*3/uL Normal 150-450 [facility] Comment on above: Performed By: #### L 500.3400, L500.2500, L100.0100 ####[facility] [address] [place], [address] RBC (Bld) [#/Vol] 3.40 10*6/uL Low 4.2-5.4 [facility] Comment on above: Performed By: #### L 500.3400, L500.2500, L100.0100 ####[facility] [address] [place], [address] RDW SD 51.1 fl High 35.1-43.9 [facility] Comment on above: Performed By: #### L 500.3400, L500.2500, L100.0100 ####[facility] [address] [place], [address] WBC (Bld) [#/Vol] 7.5 10*3/uL Normal 4.4-11.0 [facility] Comment on above: Performed By: #### L 500.3400, L500.2500, L100.0100 ####[facility] [address] [place], [address] Calcium [Mass/Vol]Ordered By : Camilo Barrett 10-05-2024 Serum or plasma calcium measurement (mass/volume) 8.9 mg/dL 8.5-10.1 [facility] Carbon dioxide measurementOr dered By: Camilo Barrett 10-05-2024 Carbon dioxide measurement 28.0 mmol/L 21.0-32.0 [facility] Chloride measurementOrdered By: Camilo Barrett 10-05-2024 Chloride measurement 109 mmol/L High 98-107 [facility] Creatinine [Mass/Vol]Ordered By: Camilo Barrett 10-05-2024 Serum or plasma creatinine measurement (mass/volume) 1.04 mg/dL High 0.55-1.02 [facility] Eosinophil percentageOrdered By: Camilo Barrett 10-05-2024 Eosinophil percentage 5.2 % High 0-5 [facility] Erythrocyte distribution wid th (RBC) [Entitic vol]Ordered By: Camilo Barrett 10-05-2024 Erythrocyte distribution width standard deviation 51.1 fl High 35.1-43.9 [facility] Erythrocyte distribution wid th (RBC) [Ratio]Ordered By: Camilo Barrett 10-05-2024 Erythrocyte distribution width ratio 17.4 % High 11.6-14.6 [facility] Estimated glomerular filtrat ion rate (GFR) AmericanOrdered By: Camilo Barrett 10-05-2024 Estimated glomerular filtration rate (GFR) 65 mL/min >60 [facility] Estimation of creatinine swati aranceOrdered By: Camilo Barrett 10-05-2024 Estimation of creatinine clearance 43.20 ml/min [facility] Glomerular filtration rate ( GFR) estimationOrdered By: Camilo Barrett on 10-05-2024 Glomerular filtration rate (GFR) estimation 54 mL/min Low >60 [facility] Glucose measurementOrdered B y: Camilo Barrett on 10-05-2024 Glucose measurement 119 mg/dL High 74-106 [facility] Hematocrit Auto (Bld) [Volum e fraction]Ordered By: Camilo Barrett on 10-05-2024 Automated blood hematocrit (percentage) 28.0 % Low 37-47 [facility] Hemoglobin measurementOrdere d By: Camilo Barrett on 10-05-2024 Hemoglobin measurement 8.6 g/dL Low 12.0-15.0 [facility] Immature granulocytes/100 WB C Auto (Bld)Ordered By: Camilo Barrett on 10-05-2024 Automated immature granulocyte percentage 0.400 % 0.0-0.9 [facility] Liver Profileon 10-05-2024 Albumin [Mass/Vol] 2.5 g/dL Low 3.2-5.0 [facility] Comment on above: Performed By: #### L 500.3400, L500.2500, L100.0100 ####[facility] [address] [place], [address] ALK P 69 U/L Normal 45-117 [facility] Comment on above: Performed By: #### L 500.3400, L500.2500, L100.0100 ####[facility] [address] [place], [address] ALT [Catalytic activity/Vol] 11 U/L Low 13-56 [facility] Comment on above: Performed By: #### L 500.3400, L500.2500, L100.0100 ####[facility] [address] [place], [address] AST [Catalytic activity/Vol] 7 U/L Low 15-37 [facility] Comment on above: Performed By: #### L 500.3400, L500.2500, L100.0100 ####[facility] [address] [place], [address] Bilirubin [Mass/Vol] 0.20 mg/dL Normal 0.20-1.00 [facility] Comment on above: Result Comment: For patients on eltrombopag therapy, use of Dimension Kirksey TBIL is not recommended. Performed By: #### L 500.3400, L500.2500, L100.0100 ####[facility] [address] [place], [address] Bilirubin.direct [Mass/Vol] 0.07 mg/dL Normal 0.00-0.30 [facility] Comment on above: Performed By: #### L 500.3400, L500.2500, L100.0100 ####[facility] [address] [place], [address] Globulin (S) [Mass/Vol] 3.8 g/dL Normal 2.2-4.2 [facility] Comment on above: Performed By: #### L 500.3400, L500.2500, L100.0100 ####[facility] [address] [place], [address] T PROT 6.3 g/dL Low 6.4-8.2 [facility] Comment on above: Performed By: #### L 500.3400, L500.2500, L100.0100 ####[facility] [address] [place], [address] Lymphocytes Auto (Unsp spec) [#/Vol]Ordered By: Camilo Barrett on 10-05-2024 Absolute lymphocyte count 2.71 X10^3/uL 0.83-4.51 [facility] Lymphocytes/100 WBC Auto (Un sp spec)Ordered By: Camilo Barrett on 10-05-2024 Automated lymphocyte count as percentage of total leukocytes 36.3 % 19-41 [facility] MCV (RBC) [Entitic vol]Order ed By: Camilo Barrett on 10-05-2024 MCV (mean corpuscular volume) determination 82.4 fL 81-99 [facility] Mean corpuscular hemoglobin (MCH) determinationOrdered By: Camilo Barrett on 10-05-2024 Mean corpuscular hemoglobin (MCH) determination 25.3 pg Low 27.0-32.0 [facility] Mean corpuscular hemoglobin concentration (MCHC) determinationOrdered By: Camilo Barrett on 10-05-2024 Mean corpuscular hemoglobin concentration (MCHC) determination 30.7 g/dL Low 32-36 [facility] Mean platelet volume determi nationOrdered By: Camilo Barrett on 10-05-2024 Mean platelet volume determination 10.7 fl 6.2-12.0 [facility] Monocyte percentageOrdered B y: Camilo Barrett on 10-05-2024 Monocyte percentage 9.5 % 0-10 [facility] Neutrophil percentageOrdered By: Camilo Barrett on 10-05-2024 Neutrophil percentage 47.4 % 47-70 [facility] No Panel InformationOrdered By: Camilo Barrett 10-05-2024 7 U/L Low 15-37 [facility] Nucleated red blood cell per centageOrdered By: Camilo Barrett on 10-05-2024 Nucleated red blood cell percentage 0 % 0-5 [facility] Platelet countOrdered By: Kenneth Barrett on 10-05-2024 Platelet count 424 K/mm3 150-450 [facility] Potassium measurementOrdered By: Camilo Barrett 10-05-2024 Potassium measurement 3.9 mmol/L 3.5-5.1 [facility] RBC Auto (Bld) [#/Vol]Ordere d By: Camilo Barrett on 10-05-2024 Automated blood erythrocyte count 3.40 M/mm3 Low 4.2-5.4 [facility] Serum anion gap measurementO rdered By: Camilo Barrett on 10-05-2024 Serum anion gap measurement 4 Low 5-15 [facility] Serum globulin measurementOr dered By: Camilo Barrett 10-05-2024 Serum globulin measurement 3.8 g/dL 2.2-4.2 [facility] Sodium levelOrdered By: Camilo Barrett 10-05-2024 Sodium level 141 mmol/L 136-145 [facility] Total proteinOrdered By: Camilo Barrett on 10-05-2024 Total protein 6.3 g/dL Low 6.4-8.2 [facility] Urea nitrogen [Mass/Vol]Orde red By: Camilo Barrett on 10-05-2024 Serum or plasma urea nitrogen measurement (mass/volume) 30 mg/dL High 7-18 [facility] White blood cell (WBC) count Ordered By: Camilo Barrett on 10-05-2024 White blood cell (WBC) count 7.5 K/mm3 4.4-11.0 [facility] Bedside Glucoseon 10-04-2024 FINGERSTICK GLU 303 mg/dL High 74-106 [facility] Comment on above: Result Comment: RAJIV GEMENT OF PATIENT CARE PER NURSING PROTOCOL Performed By: #### L 501.080 ####[facility] [address] [facility] [address] FINGERSTICK GLU 232 mg/dL High [address] [place] [address] Comment on above: Result Comment: RAJIV GEMENT OF PATIENT CARE PER NURSING PROTOCOL Performed By: #### L 501.080 ####[facility] [address] [facility] [address] FINGERSTICK GLU 142 mg/dL High [facility]106 [facility] Comment on above: Result Comment: RAJIV GEMENT OF PATIENT CARE PER NURSING PROTOCOL Performed By: #### L 501.080 ####[facility] [address] [facility] [address] FINGERSTICK GLU 210 mg/dL High [address] Comment on above: Result Comment: RAJIV GEMENT OF PATIENT CARE PER NURSING PROTOCOL Performed By: #### L 501.080 ####[facility] [address] [facility] [address] Bedside Glucoseon 10-03-2024 FINGERSTICK GLU 258 mg/dL High [address] [facility] Comment on above: Result Comment: RAJIV GEMENT OF PATIENT CARE PER NURSING PROTOCOL Performed By: #### L 501.080 ####[facility] [address] [place], [address] FINGERSTICK GLU 241 mg/dL High 74-106 [facility] Comment on above: Result Comment: RAJIV GEMENT OF PATIENT CARE PER NURSING PROTOCOL Performed By: #### L 501.080 ####[facility] [address] [place], [address] FINGERSTICK GLU 265 mg/dL High -106 [facility] Comment on above: Result Comment: RAJIV GEMENT OF PATIENT CARE PER NURSING PROTOCOL Performed By: #### L 501.080 ####[facility] [address] [place], [address] FINGERSTICK GLU 234 mg/dL High [address] [place] [address] Comment on above: Result Comment: RAJIV GEMENT OF PATIENT CARE PER NURSING PROTOCOL Performed By: #### L 501.080 ####[facility] [address] [place], [address] Bedside Glucoseon 10-02-2024 FINGERSTICK GLU 281 mg/dL High [address] [place] [address] Comment on above: Result Comment: RAJIV GEMENT OF PATIENT CARE PER NURSING PROTOCOL Performed By: #### L 501.080 ####[facility] [address] [place], [address] FINGERSTICK GLU 294 mg/dL High [address] [place] [address] Comment on above: Result Comment: RAJIV GEMENT OF PATIENT CARE PER NURSING PROTOCOL Performed By: #### L 501.080 ####[facility] [address] [place], [address] FINGERSTICK GLU 227 mg/dL High [address] [place] [address] Comment on above: Result Comment: RAJIV GEMENT OF PATIENT CARE PER NURSING PROTOCOL Performed By: #### L 501.080 ####[facility] [address] [place], [address] FINGERSTICK GLU 210 mg/dL High [address] [place] [address] Comment on above: Result Comment: RAJIV GEMENT OF PATIENT CARE PER NURSING PROTOCOL Performed By: #### L 501.080 ####[facility] [address] [place], [address] Bedside Glucoseon 10-01-2024 FINGERSTICK GLU 155 mg/dL High 74-106 [facility] Comment on above: Result Comment: RAJIV GEMENT OF PATIENT CARE PER NURSING PROTOCOL Performed By: #### L 501.080 ####[facility] [address] [place], [address] FINGERSTICK GLU 152 mg/dL High 74-106 [facility] Comment on above: Result Comment: RAJIV GEMENT OF PATIENT CARE PER NURSING PROTOCOL Performed By: #### L 501.080 ####[facility] [address] [place], [address] FINGERSTICK GLU 132 mg/dL High 74-106 [facility] Comment on above: Result Comment: RAJIV GEMENT OF PATIENT CARE PER NURSING PROTOCOL Performed By: #### L 501.080 ####[facility] [address] [place], [address] FINGERSTICK GLU 84 mg/dL Normal 74-106 [facility] Comment on above: Result Comment: RAJIV GEMENT OF PATIENT CARE PER NURSING PROTOCOL Performed By: #### L 501.080 ####[facility] [address] [place], [address] COVID 19 AG RAPID (RN SEEMA T)on 10-01-2024 SARS-CoV-2 (COVID-19) RNA MYRIAM+probe Ql (Unsp spec) Normal [facility] Comment on above: Performed By: #### M 100.505 ####[facility] [address] [place], [address] Bedside Glucoseon 09-30-2024 FINGERSTICK GLU 100 mg/dL Normal 74-106 [facility] Comment on above: Result Comment: RAJIV GEMENT OF PATIENT CARE PER NURSING PROTOCOL Performed By: #### L 501.080 ####[facility] [address] [place], [address] FINGERSTICK GLU 223 mg/dL High [address] [place] [address] Comment on above: Result Comment: RAJIV GEMENT OF PATIENT CARE PER NURSING PROTOCOL Performed By: #### L 501.080 ####[facility] [facility] [address] [place], [address] FINGERSTICK GLU 325 mg/dL High [address] [place] [address] Comment on above: Result Comment: RAJIV GEMENT OF PATIENT CARE PER NURSING PROTOCOL Performed By: #### L 501.080 ####[facility] [address] [place], [address] FINGERSTICK GLU 39 mg/dL Invalid Interpretation Code [address] [place] [address] Comment on above: Result Comment: Repe at TestMANAGEMENT OF PATIENT CARE PER NURSING PROTOCOL Performed By: #### L 501.080 ####[facility] [address] [place], [address] FINGERSTICK GLU 37 mg/dL Invalid Interpretation Code [address] [place] [address] Comment on above: Result Comment: [facility] k GivenMANAGEMENT OF PATIENT CARE PER NURSING PROTOCOL Performed By: #### L 501.080 ####[facility] [address] [place], [address] FINGERSTICK GLU 43 mg/dL Invalid Interpretation Code [address] [place] [address] Comment on above: Result Comment: [facility] k GivenMANAGEMENT OF PATIENT CARE PER NURSING PROTOCOL Performed By: #### L 501.080 ####[facility] [address] [place], [address] FINGERSTICK GLU 52 mg/dL Low [address] [place] [address] Comment on above: Result Comment: RAJIV GEMENT OF PATIENT CARE PER NURSING PROTOCOL Performed By: #### L 501.080 ####[facility] [address] [place], [address] FINGERSTICK GLU 380 mg/dL High 74-106 [facility] Comment on above: Result Comment: RAJIV GEMENT OF PATIENT CARE PER NURSING PROTOCOL Performed By: #### L 501.080 ####[facility] [address] [place], [address] FINGERSTICK GLU 103 mg/dL Normal 74-106 [facility] Comment on above: Result Comment: RAJIV GEMENT OF PATIENT CARE PER NURSING PROTOCOL Performed By: #### L 501.080 ####[facility] [address] [place], [address] Bedside Glucoseon 09-29-2024 FINGERSTICK GLU 267 mg/dL High -106 [facility] Comment on above: Result Comment: RAJIV GEMENT OF PATIENT CARE PER NURSING PROTOCOL Performed By: #### L 501.080 ####[facility] [address] [place], [address] FINGERSTICK GLU 223 mg/dL High 74-106 [facility] Comment on above: Result Comment: RAJIV GEMENT OF PATIENT CARE PER NURSING PROTOCOL Performed By: #### L 501.080 ####[facility] [address] [place], [address] FINGERSTICK GLU 243 mg/dL High 74-106 [facility] Comment on above: Result Comment: RAJIV GEMENT OF PATIENT CARE PER NURSING PROTOCOL Performed By: #### L 501.080 ####[facility] [address] [place], [address] FINGERSTICK GLU 137 mg/dL High 74-106 [facility] Comment on above: Result Comment: RAJIV GEMENT OF PATIENT CARE PER NURSING PROTOCOL Performed By: #### L 501.080 ####[facility] [address] [place], [address] FINGERSTICK GLU 70 mg/dL Low 74-106 [facility] Comment on above: Result Comment: RAJIV GEMENT OF PATIENT CARE PER NURSING PROTOCOL Performed By: #### L 501.080 ####[facility] [address] [place], [address] HH, Hemoglobin AND Hematocri ton 09-29-2024 Hematocrit (Bld) [Volume fraction] 33.8 % Low 37-47 [facility] Comment on above: Performed By: #### L 100.0600 ####[facility] [address] [place], [address] Hemoglobin (Bld) [Mass/Vol] 10.1 g/dL Low 12.0-15.0 [facility] Comment on above: Performed By: #### L 100.0600 ####[facility] [address] [place], [address] Basic Metabolic Profile (BMP )on 09-28-2024 BUN/CRE 22.9 RATIO High 10-20 [facility] Comment on above: Performed By: #### L 100.0100, L500.2500, L500.3400 ####[facility] [address] [place], [address] CA,Total 8.7 mg/dL Normal 8.5-10.1 [facility] Comment on above: Performed By: #### L 100.0100, L500.2500, L500.3400 ####[facility] [address] [place], [address] Chloride [Moles/Vol] 109 mmol/L High 98-107 [facility] Comment on above: Performed By: #### L 100.0100, L500.2500, L500.3400 ####[facility] [address] [place], [address] CO2 [Moles/Vol] 26.0 mmol/L Normal 21.0-32.0 [facility] Comment on above: Performed By: #### L 100.0100, L500.2500, L500.3400 ####[facility] [address] [place], [address] Creatinine [Mass/Vol] 1.18 mg/dL High 0.55-1.02 [facility] Comment on above: Result Comment: The validity of the calculated GFR GFRAA in patients over70 years has not been determined. Clinical correlation isessential. Performed By: #### L 100.0100, L500.2500, L500.3400 ####[facility] [address] [place], [address] ECRCL 38.16 ml/min Normal [facility] Comment on above: Performed By: #### L 100.0100, L500.2500, L500.3400 ####[facility] [address] [place], [address] EST GFR - AA 57 mL/min Low >60 [facility] Comment on above: Result Comment: Afri can Eritrean GFR Calc Performed By: #### L 100.0100, L500.2500, L500.3400 ####[facility] [address] [place], [address] GAP 5 Normal 5-15 [facility] Comment on above: Performed By: #### L 100.0100, L500.2500, L500.3400 ####[facility] [address] [place], [address] GFR/1.73 sq M.predicted among non-blacks MDRD (S/P/Bld) [Vol rate/Area] 47 mL/min/{1.73_m2} Low >60 [facility] Comment on above: Result Comment: Non- GFR Calc Performed By: #### L 100.0100, L500.2500, L500.3400 ####[facility] [address] [place], [address] Glucose [Mass/Vol] 82 mg/dL Normal 74-106 [facility] Comment on above: Performed By: #### L 100.0100, L500.2500, L500.3400 ####[facility] [address] [place], [address] Potassium [Moles/Vol] 4.4 mmol/L Normal 3.5-5.1 [facility] Comment on above: Performed By: #### L 100.0100, L500.2500, L500.3400 ####[facility] [address] [place], [address] Sodium [Moles/Vol] 140 mmol/L Normal 136-145 [facility] Comment on above: Performed By: #### L 100.0100, L500.2500, L500.3400 ####[facility] [address] [place], [address] Urea nitrogen [Mass/Vol] 27 mg/dL High 7-18 [facility] Comment on above: Performed By: #### L 100.0100, L500.2500, L500.3400 ####[facility] [address] [place], [address] Bedside Glucoseon 09-28-2024 FINGERSTICK GLU 167 mg/dL High 74-106 [facility] Comment on above: Result Comment: RAJIV GEMENT OF PATIENT CARE PER NURSING PROTOCOL Performed By: #### L 501.080 ####[facility] [address] [place], [address] FINGERSTICK GLU 180 mg/dL High 74-106 [facility] Comment on above: Result Comment: RAJIV GEMENT OF PATIENT CARE PER NURSING PROTOCOL Performed By: #### L 501.080 ####[facility] [address] [place], [address] FINGERSTICK GLU 144 mg/dL High 74-106 [facility] Comment on above: Result Comment: RAJIV GEMENT OF PATIENT CARE PER NURSING PROTOCOL Performed By: #### L 501.080 ####[facility] [address] [place], [address] FINGERSTICK GLU 145 mg/dL High 74-106 [facility] Comment on above: Result Comment: RAJIV GEMENT OF PATIENT CARE PER NURSING PROTOCOL Performed By: #### L 501.080 ####[facility] [address] [place], [address] FINGERSTICK GLU 75 mg/dL Normal 74-106 [facility] Comment on above: Result Comment: RAJIV GEMENT OF PATIENT CARE PER NURSING PROTOCOL Performed By: #### L 501.080 ####[facility] [address] [place], [address] CBC W/Diff, Automatedon 12-0 Absolute Lymph 2.65 X10 3/uL Normal 0.83-4.51 [facility] Comment on above: Performed By: #### L 100.0100, L500.2500, L500.3400 ####[facility] [address] [place], [address] Absolute Neut 5.3 X10 3/uL Normal 2.0-7.7 [facility] Comment on above: Performed By: #### L 100.0100, L500.2500, L500.3400 ####[facility] [address] [place], [address] Basophils/100 WBC (Bld) 0.9 % Normal 0-1 [facility] Comment on above: Performed By: #### L 100.0100, L500.2500, L500.3400 ####[facility] [address] [place], [address] Eosinophils/100 WBC (Bld) 5.3 % High 0-5 [facility] Comment on above: Performed By: #### L 100.0100, L500.2500, L500.3400 ####[facility] [address] [place], [address] Erythrocyte distribution width (RBC) [Ratio] 18.8 % High 11.6-14.6 [facility] Comment on above: Performed By: #### L 100.0100, L500.2500, L500.3400 ####[facility] [address] [place], [address] Hematocrit (Bld) [Volume fraction] 27.7 % Low 37-47 [facility] Comment on above: Performed By: #### L 100.0100, L500.2500, L500.3400 ####[facility] [address] [place], [address] Hemoglobin (Bld) [Mass/Vol] 8.6 g/dL Low 12.0-15.0 [facility] Comment on above: Performed By: #### L 100.0100, L500.2500, L500.3400 ####[facility] [address] [place], [address] IG% 0.500 Normal 0.0-0.9 [facility] Comment on above: Result Comment: IG% - Immature Granulocytes (promyelocytes, myelocytes andmetamyelocytes) > 1% indicates that a LEFT SHIFT is Present. Performed By: #### L 100.0100, L500.2500, L500.3400 ####[facility] [address] [place], [address] Lymphocytes/100 WBC (Bld) 28.3 % Normal 19-41 [facility] Comment on above: Performed By: #### L 100.0100, L500.2500, L500.3400 ####[facility] [address] [place], [address] MCH (RBC) [Entitic mass] 25.8 pg Low 27.0-32.0 [facility] Comment on above: Performed By: #### L 100.0100, L500.2500, L500.3400 ####[facility] [address] [place], [address] MCHC (RBC) [Mass/Vol] 31.0 g/dL Low 32-36 [facility] Comment on above: Performed By: #### L 100.0100, L500.2500, L500.3400 ####[facility] [address] [place], [address] MCV (RBC) [Entitic vol] 83.2 fL Normal 81-99 [facility] Comment on above: Performed By: #### L 100.0100, L500.2500, L500.3400 ####[facility] [address] [place], [address] Monocytes/100 WBC (Bld) 8.1 % Normal 0-10 [facility] Comment on above: Performed By: #### L 100.0100, L500.2500, L500.3400 ####[facility] [address] [place], [address] Neutrophils/100 WBC (Bld) 56.9 % Normal 47-70 [facility] Comment on above: Performed By: #### L 100.0100, L500.2500, L500.3400 ####[facility] [address] [place], [address] Nucleated RBC (Bld) [#/Vol] 0 10*3/uL Normal 0-5 [facility] Comment on above: Performed By: #### L 100.0100, L500.2500, L500.3400 ####[facility] [address] [place], [address] Platelet mean volume (Bld) [Entitic vol] 10.4 fL Normal 6.2-12.0 [facility] Comment on above: Performed By: #### L 100.0100, L500.2500, L500.3400 ####[facility] [address] [place], [address] Platelets (Bld) [#/Vol] 513 10*3/uL High 150-450 [facility] Comment on above: Performed By: #### L 100.0100, L500.2500, L500.3400 ####[facility] [address] [place], [address] RBC (Bld) [#/Vol] 3.33 10*6/uL Low 4.2-5.4 [facility] Comment on above: Performed By: #### L 100.0100, L500.2500, L500.3400 ####[facility] [address] [place], [address] RDW SD 54.4 fl High 35.1-43.9 [facility] Comment on above: Performed By: #### L 100.0100, L500.2500, L500.3400 ####[facility] [address] [place], [address] WBC (Bld) [#/Vol] 9.4 10*3/uL Normal 4.4-11.0 [facility] Comment on above: Performed By: #### L 100.0100, L500.2500, L500.3400 ####[facility] [address] [place], [address] Glucoseon 09-28-2024 Glucose [Mass/Vol] 66 mg/dL Low 74-106 [facility] Comment on above: Performed By: #### L 501.0100 ####[facility] [address] [place], [address] Liver Profileon 09-28-2024 Albumin [Mass/Vol] 2.5 g/dL Low 3.2-5.0 [facility] Comment on above: Performed By: #### L 100.0100, L500.2500, L500.3400 ####[facility] [address] [place], [address] ALK P 78 U/L Normal 45-117 [facility] Comment on above: Performed By: #### L 100.0100, L500.2500, L500.3400 ####[facility] [address] [place], [address] ALT [Catalytic activity/Vol] 12 U/L Low 13-56 [facility] Comment on above: Performed By: #### L 100.0100, L500.2500, L500.3400 ####[facility] [address] [place], [address] AST [Catalytic activity/Vol] 11 U/L Low 15-37 [facility] Comment on above: Performed By: #### L 100.0100, L500.2500, L500.3400 ####[facility] [address] [place], [address] Bilirubin [Mass/Vol] 0.30 mg/dL Normal 0.20-1.00 [facility] Comment on above: Result Comment: For patients on eltrombopag therapy, use of Dimension Kirksey TBIL is not recommended. Performed By: #### L 100.0100, L500.2500, L500.3400 ####[facility] [address] [place], [address] Bilirubin.direct [Mass/Vol] 0.10 mg/dL Normal 0.00-0.30 [facility] Comment on above: Performed By: #### L 100.0100, L500.2500, L500.3400 ####[facility] [address] [place], [address] Globulin (S) [Mass/Vol] 4.0 g/dL Normal 2.2-4.2 [facility] Comment on above: Performed By: #### L 100.0100, L500.2500, L500.3400 ####[facility] [address] [place], [address] T PROT 6.5 g/dL Normal 6.4-8.2 [facility] Comment on above: Performed By: #### L 100.0100, L500.2500, L500.3400 ####[facility] [address] [place], [address] Bedside Glucoseon 09-27-2024 FINGERSTICK GLU 190 mg/dL High [address] [place] [address] Comment on above: Result Comment: RAJIV GEMENT OF PATIENT CARE PER NURSING PROTOCOL Performed By: #### L 501.080 ####[facility] [address] [place], [address] FINGERSTICK GLU 179 mg/dL High [address] [place] [address] Comment on above: Result Comment: RAJIV GEMENT OF PATIENT CARE PER NURSING PROTOCOL Performed By: #### L 501.080 ####[facility] [address] [place], [address] FINGERSTICK GLU 246 mg/dL High [address] [place] [address] Comment on above: Result Comment: RAJIV GEMENT OF PATIENT CARE PER NURSING PROTOCOL Performed By: #### L 501.080 ####[facility] [address] [place], [address] FINGERSTICK GLU 84 mg/dL Normal [address] [place] [address] Comment on above: Result Comment: RAJIV GEMENT OF PATIENT CARE PER NURSING PROTOCOL Performed By: #### L 501.080 ####[facility] [address] [place], [address] FINGERSTICK GLU 34 mg/dL Invalid Interpretation Code -[address] [place] [address] Comment on above: Result Comment: [facility] k GivenMANAGEMENT OF PATIENT CARE PER NURSING PROTOCOL Performed By: #### L 501.080 ####[facility] [address] [place], [address] Bedside Glucoseon 09-26-2024 FINGERSTICK GLU 96 mg/dL Normal 74-106 [facility] Comment on above: Result Comment: RAJIV GEMENT OF PATIENT CARE PER NURSING PROTOCOL Performed By: #### L 501.080 ####[facility] [address] [place], [address] FINGERSTICK GLU 184 mg/dL High [address] [place] [address] Comment on above: Result Comment: RAJIV GEMENT OF PATIENT CARE PER NURSING PROTOCOL Performed By: #### L 501.080 ####[facility] [address] [place], [address] FINGERSTICK GLU 257 mg/dL High [address] [place] [address] Comment on above: Result Comment: RAJIV GEMENT OF PATIENT CARE PER NURSING PROTOCOL Performed By: #### L 501.080 ####[facility] [address] [place], [address] FINGERSTICK GLU 323 mg/dL High [address] [place] [address] Comment on above: Result Comment: RAJIV GEMENT OF PATIENT CARE PER NURSING PROTOCOL Performed By: #### L 501.080 ####[facility] [address] [place], [address] Bedside Glucoseon 09-25-2024 FINGERSTICK GLU 275 mg/dL High -[address] [place] [address] Comment on above: Result Comment: RAJIV GEMENT OF PATIENT CARE PER NURSING PROTOCOL Performed By: #### L 501.080 ####[facility] [address] [place], [address] FINGERSTICK GLU 255 mg/dL High [address] [place] [address] Comment on above: Result Comment: RAJIV GEMENT OF PATIENT CARE PER NURSING PROTOCOL Performed By: #### L 501.080 ####[facility] [address] [place], [address] FINGERSTICK GLU 268 mg/dL High [address] [place] [address] Comment on above: Result Comment: RAJIV GEMENT OF PATIENT CARE PER NURSING PROTOCOL Performed By: #### L 501.080 ####[facility] [address] [place], [address] FINGERSTICK GLU 181 mg/dL High 74-106 [facility] Comment on above: Result Comment: RAJIV GEMENT OF PATIENT CARE PER NURSING PROTOCOL Performed By: #### L 501.080 ####[facility] [address] [place], [address] Bedside Glucoseon 09-24-2024 FINGERSTICK GLU 199 mg/dL High -106 [facility] Comment on above: Result Comment: RAJIV GEMENT OF PATIENT CARE PER NURSING PROTOCOL Performed By: #### L 501.080 ####[facility] [address] [place], [address] FINGERSTICK GLU 133 mg/dL High -106 [facility] Comment on above: Result Comment: RAJIV GEMENT OF PATIENT CARE PER NURSING PROTOCOL Performed By: #### L 501.080 ####[facility] [address] [place], [address] FINGERSTICK GLU 151 mg/dL High -106 [facility] Comment on above: Result Comment: RAJIV GEMENT OF PATIENT CARE PER NURSING PROTOCOL Performed By: #### L 501.080 ####[facility] [address] [place], [address] FINGERSTICK GLU 230 mg/dL High -[address] [place] [address] Comment on above: Result Comment: RAJIV GEMENT OF PATIENT CARE PER NURSING PROTOCOL Performed By: #### L 501.080 ####[facility] [address] [place], [address] COVID 19 AG RAPID (KRISTINE Stoll)on 09-24-2024 SARS-CoV-2 (COVID-19) RNA MYRIAM+probe Ql (Unsp spec) Normal [facility] Comment on above: Performed By: #### M 100.505 ####[facility] [address] [place], [address] Bedside Glucoseon 09-23-2024 FINGERSTICK GLU 157 mg/dL High 74-106 [facility] Comment on above: Result Comment: RAJIV GEMENT OF PATIENT CARE PER NURSING PROTOCOL Performed By: #### L 501.080 ####[facility] [address] [place], [address] FINGERSTICK GLU 150 mg/dL High 74-106 [facility] Comment on above: Result Comment: RAJIV GEMENT OF PATIENT CARE PER NURSING PROTOCOL Performed By: #### L 501.080 ####[facility] [address] [place], [address] FINGERSTICK GLU 173 mg/dL High 74-106 [facility] Comment on above: Result Comment: RAJIV GEMENT OF PATIENT CARE PER NURSING PROTOCOL Performed By: #### L 501.080 ####[facility] [address] [place], [address] FINGERSTICK GLU 120 mg/dL High 74-106 [facility] Comment on above: Result Comment: RAJIV GEMENT OF PATIENT CARE PER NURSING PROTOCOL Performed By: #### L 501.080 ####[facility] [address] [place], [address] FINGERSTICK GLU 55 mg/dL Low 74-106 [facility] Comment on above: Result Comment: RAJIV GEMENT OF PATIENT CARE PER NURSING PROTOCOL Performed By: #### L 501.080 ####[facility] [address] [place], [address] FINGERSTICK GLU 54 mg/dL Low 74-106 [facility] Comment on above: Result Comment: RAJIV GEMENT OF PATIENT CARE PER NURSING PROTOCOL Performed By: #### L 501.080 ####[facility] [address] [place], [address] Bedside Glucoseon 09-22-2024 FINGERSTICK GLU 127 mg/dL High 74-106 [facility] Comment on above: Result Comment: RAJIV GEMENT OF PATIENT CARE PER NURSING PROTOCOL Performed By: #### L 501.080 ####[facility] [address] [place], [address] FINGERSTICK GLU 185 mg/dL High 74-106 [facility] Comment on above: Result Comment: RAJIV GEMENT OF PATIENT CARE PER NURSING PROTOCOL Performed By: #### L 501.080 ####[facility] [address] [place], [address] FINGERSTICK GLU 65 mg/dL Low 74-106 [facility] Comment on above: Result Comment: RAJIV GEMENT OF PATIENT CARE PER NURSING PROTOCOL Performed By: #### L 501.080 ####[facility] [address] [place], [address] FINGERSTICK GLU 96 mg/dL Normal 74-106 [facility] Comment on above: Result Comment: RAJIV GEMENT OF PATIENT CARE PER NURSING PROTOCOL Performed By: #### L 501.080 ####[facility] [address] [place], [address] Basic Metabolic Profile (BMP )on 09-21-2024 BUN/CRE 22.9 RATIO High 10-20 [facility] Comment on above: Performed By: #### L 500.3400, L100.0100, L500.2500 ####[facility] [address] [place], [address] CA,Total 9.2 mg/dL Normal 8.5-10.1 [facility] Comment on above: Performed By: #### L 500.3400, L100.0100, L500.2500 ####[facility] [address] [place], [address] Chloride [Moles/Vol] 103 mmol/L Normal 98-107 [facility] Comment on above: Performed By: #### L 500.3400, L100.0100, L500.2500 ####[facility] [address] [place], [address] CO2 [Moles/Vol] 30.0 mmol/L Normal 21.0-32.0 [facility] Comment on above: Performed By: #### L 500.3400, L100.0100, L500.2500 ####[facility] [address] [place], [address] Creatinine [Mass/Vol] 1.05 mg/dL High 0.55-1.02 [facility] Comment on above: Result Comment: The validity of the calculated GFR GFRAA in patients over70 years has not been determined. Clinical correlation isessential. Performed By: #### L 500.3400, L100.0100, L500.2500 ####[facility] [address] [place], [address] ECRCL 42.31 ml/min Normal [facility] Comment on above: Performed By: #### L 500.3400, L100.0100, L500.2500 ####[facility] [address] [place], [address] EST GFR - AA 65 mL/min Normal >60 [facility] Comment on above: Result Comment: Afri can Eritrean GFR Calc Performed By: #### L 500.3400, L100.0100, L500.2500 ####[facility] [address] [place], [address] GAP 5 Normal 5-15 [facility] Comment on above: Performed By: #### L 500.3400, L100.0100, L500.2500 ####[facility] [address] [place], [address] GFR/1.73 sq M.predicted among non-blacks MDRD (S/P/Bld) [Vol rate/Area] 53 mL/min/{1.73_m2} Low >60 [facility] Comment on above: Result Comment: Non- GFR Calc Performed By: #### L 500.3400, L100.0100, L500.2500 ####[facility] [address] [place], [address] Glucose [Mass/Vol] 78 mg/dL Normal 74-106 [facility] Comment on above: Performed By: #### L 500.3400, L100.0100, L500.2500 ####[facility] [address] [place], [address] Potassium [Moles/Vol] 3.9 mmol/L Normal 3.5-5.1 [facility] Comment on above: Performed By: #### L 500.3400, L100.0100, L500.2500 ####[facility] [address] [place], [address] Sodium [Moles/Vol] 138 mmol/L Normal 136-145 [facility] Comment on above: Performed By: #### L 500.3400, L100.0100, L500.2500 ####[facility] [address] [place], [address] Urea nitrogen [Mass/Vol] 24 mg/dL High 7-18 [facility] Comment on above: Performed By: #### L 500.3400, L100.0100, L500.2500 ####[facility] [address] [place], [address] Bedside Glucoseon 09-21-2024 FINGERSTICK GLU 187 mg/dL High 74-106 [facility] Comment on above: Result Comment: RAJIV BEE OF PATIENT CARE PER NURSING PROTOCOL Performed By: #### L 501.080 ####[facility] [address] [place], [address] FINGERSTICK GLU 110 mg/dL High 74-106 [facility] Comment on above: Result Comment: RAJIV GEMENT OF PATIENT CARE PER NURSING PROTOCOL Performed By: #### L 501.080 ####[facility] [address] [place], [address] FINGERSTICK GLU 87 mg/dL Normal 74-106 [facility] Comment on above: Result Comment: RAJIV GEMENT OF PATIENT CARE PER NURSING PROTOCOL Performed By: #### L 501.080 ####[facility] [address] [place], [address] FINGERSTICK GLU 88 mg/dL Normal 74-106 [facility] Comment on above: Result Comment: RAJIV GEMENT OF PATIENT CARE PER NURSING PROTOCOL Performed By: #### L 501.080 ####[facility] [address] [place], [address] FINGERSTICK GLU 62 mg/dL Low 74-106 [facility] Comment on above: Result Comment: RAJIV GEMENT OF PATIENT CARE PER NURSING PROTOCOL Performed By: #### L 501.080 ####[facility] [address] [place], [address] CBC W/Diff, Automatedon 11-2 Absolute Lymph 2.91 X10 3/uL Normal 0.83-4.51 [facility] Comment on above: Performed By: #### L 500.3400, L100.0100, L500.2500 ####[facility] [address] [place], [address] Absolute Neut 4.9 X10 3/uL Normal 2.0-7.7 [facility] Comment on above: Performed By: #### L 500.3400, L100.0100, L500.2500 ####[facility] [address] [place], [address] Basophils/100 WBC (Bld) 0.8 % Normal 0-1 [facility] Comment on above: Performed By: #### L 500.3400, L100.0100, L500.2500 ####[facility] [address] [place], [address] Eosinophils/100 WBC (Bld) 4.1 % Normal 0-5 [facility] Comment on above: Performed By: #### L 500.3400, L100.0100, L500.2500 ####[facility] [address] [place], [address] Erythrocyte distribution width (RBC) [Ratio] 19.6 % High 11.6-14.6 [facility] Comment on above: Performed By: #### L 500.3400, L100.0100, L500.2500 ####[facility] [address] [place], [address] Hematocrit (Bld) [Volume fraction] 29.8 % Low 37-47 [facility] Comment on above: Performed By: #### L 500.3400, L100.0100, L500.2500 ####[facility] [address] [place], [address] Hemoglobin (Bld) [Mass/Vol] 8.9 g/dL Low 12.0-15.0 [facility] Comment on above: Performed By: #### L 500.3400, L100.0100, L500.2500 ####[facility] [address] [place], [address] IG% 1.000 High 0.0-0.9 [facility] Comment on above: Result Comment: IG% - Immature Granulocytes (promyelocytes, myelocytes andmetamyelocytes) > 1% indicates that a LEFT SHIFT is Present. Performed By: #### L 500.3400, L100.0100, L500.2500 ####[facility] [address] [place], [address] Lymphocytes/100 WBC (Bld) 32.0 % Normal 19-41 [facility] Comment on above: Performed By: #### L 500.3400, L100.0100, L500.2500 ####[facility] [address] [place], [address] MCH (RBC) [Entitic mass] 24.7 pg Low 27.0-32.0 [facility] Comment on above: Performed By: #### L 500.3400, L100.0100, L500.2500 ####[facility] [address] [place], [address] MCHC (RBC) [Mass/Vol] 29.9 g/dL Low 32-36 [facility] Comment on above: Performed By: #### L 500.3400, L100.0100, L500.2500 ####[facility] [address] [place], [address] MCV (RBC) [Entitic vol] 82.8 fL Normal 81-99 [facility] Comment on above: Performed By: #### L 500.3400, L100.0100, L500.2500 ####[facility] [address] [place], [address] Monocytes/100 WBC (Bld) 8.0 % Normal 0-10 [facility] Comment on above: Performed By: #### L 500.3400, L100.0100, L500.2500 ####[facility] [address] [place], [address] Neutrophils/100 WBC (Bld) 54.1 % Normal 47-70 [facility] Comment on above: Performed By: #### L 500.3400, L100.0100, L500.2500 ####[facility] [address] [place], [address] Nucleated RBC (Bld) [#/Vol] 0 10*3/uL Normal 0-5 [facility] Comment on above: Performed By: #### L 500.3400, L100.0100, L500.2500 ####[facility] [address] [place], [address] Platelet mean volume (Bld) [Entitic vol] 9.7 fL Normal 6.2-12.0 [facility] Comment on above: Performed By: #### L 500.3400, L100.0100, L500.2500 ####[facility] [address] [place], [address] Platelets (Bld) [#/Vol] 569 10*3/uL High 150-450 [facility] Comment on above: Performed By: #### L 500.3400, L100.0100, L500.2500 ####[facility] [address] [place], [address] RBC (Bld) [#/Vol] 3.60 10*6/uL Low 4.2-5.4 [facility] Comment on above: Performed By: #### L 500.3400, L100.0100, L500.2500 ####[facility] [address] [place], [address] RDW SD 54.9 fl High 35.1-43.9 [facility] Comment on above: Performed By: #### L 500.3400, L100.0100, L500.2500 ####[facility] [address] [place], [address] WBC (Bld) [#/Vol] 9.1 10*3/uL Normal 4.4-11.0 [facility] Comment on above: Performed By: #### L 500.3400, L100.0100, L500.2500 ####[facility] [address] [place], [address] Liver Profileon 09-21-2024 Albumin [Mass/Vol] 2.3 g/dL Low 3.2-5.0 [facility] Comment on above: Performed By: #### L 500.3400, L100.0100, L500.2500 ####[facility] [address] [place], [address] ALK P 82 U/L Normal 45-117 [facility] Comment on above: Performed By: #### L 500.3400, L100.0100, L500.2500 ####[facility] [address] [place], [address] ALT [Catalytic activity/Vol] 11 U/L Low 13-56 [facility] Comment on above: Performed By: #### L 500.3400, L100.0100, L500.2500 ####[facility] [address] [place], [address] AST [Catalytic activity/Vol] 11 U/L Low 15-37 [facility] Comment on above: Performed By: #### L 500.3400, L100.0100, L500.2500 ####[facility] [address] [place], [address] Bilirubin [Mass/Vol] 0.30 mg/dL Normal 0.20-1.00 [facility] Comment on above: Result Comment: For patients on eltrombopag therapy, use of Dimension Kirksey TBIL is not recommended. Performed By: #### L 500.3400, L100.0100, L500.2500 ####[facility] [address] [place], [address] Bilirubin.direct [Mass/Vol] 0.09 mg/dL Normal 0.00-0.30 [facility] Comment on above: Performed By: #### L 500.3400, L100.0100, L500.2500 ####[facility] [address] [place], [address] Globulin (S) [Mass/Vol] 4.1 g/dL Normal 2.2-4.2 [facility] Comment on above: Performed By: #### L 500.3400, L100.0100, L500.2500 ####[facility] [address] [place], [address] T PROT 6.4 g/dL Normal 6.4-8.2 [facility] Comment on above: Performed By: #### L 500.3400, L100.0100, L500.2500 ####[facility] [address] [place], [address] BNP (brain natriuretic pepti de measurement)Ordered By: Maritza Urrutia on 09-20-2024 BNP (brain natriuretic peptide measurement) 62.4 pg/mL 0-100 [facility] BNP,B-Type NATRIURETIC PEPTI Mandy 09-20-2024 Natriuretic peptide B (Bld) [Mass/Vol] 62.4 pg/mL Normal 0-100 [facility] Comment on above: Performed By: #### L 503.6620 ####[facility] [address] [place], [address] Basic Metabolic Profile (BMP )on 09-20-2024 BUN/CRE 23.0 RATIO High 10-20 [facility] Comment on above: Performed By: #### L 500.2500 ####[facility] [address] [place], [address] CA,Total 8.8 mg/dL Normal 8.5-10.1 [facility] Comment on above: Performed By: #### L 500.2500 ####[facility] [address] [place], [address] Chloride [Moles/Vol] 103 mmol/L Normal 98-107 [facility] Comment on above: Performed By: #### L 500.2500 ####[facility] [address] [place], [address] CO2 [Moles/Vol] 30.0 mmol/L Normal 21.0-32.0 [facility] Comment on above: Performed By: #### L 500.2500 ####[facility] [address] [place], [address] Creatinine [Mass/Vol] 1.13 mg/dL High 0.55-1.02 [facility] Comment on above: Result Comment: The validity of the calculated GFR GFRAA in patients over70 years has not been determined. Clinical correlation isessential. Performed By: #### L 500.2500 ####[facility] [address] [place], [address] ECRCL 39.31 ml/min Normal [facility] Comment on above: Performed By: #### L 500.2500 ####[facility] [address] [place], [address] EST GFR - AA 59 mL/min Low >60 [facility] Comment on above: Result Comment: Afri can Eritrean GFR Calc Performed By: #### L 500.2500 ####[facility] [address] [place], [address] GAP 4 Low 5-15 [facility] Comment on above: Performed By: #### L 500.2500 ####[facility] [address] [place], [address] GFR/1.73 sq M.predicted among non-blacks MDRD (S/P/Bld) [Vol rate/Area] 49 mL/min/{1.73_m2} Low >60 [facility] Comment on above: Result Comment: Non- GFR Calc Performed By: #### L 500.2500 ####[facility] [address] [place], [address] Glucose [Mass/Vol] 101 mg/dL Normal 74-106 [facility] Comment on above: Result Comment: Fast ing Glucose result from 100 to 125 mg/dLsuggests IMPAIRED HOMEOSTASIS per A.D.A. criteria. Performed By: #### L 500.2500 ####[facility] [address] [place], [address] Potassium [Moles/Vol] 4.3 mmol/L Normal 3.5-5.1 [facility] Comment on above: Performed By: #### L 500.2500 ####[facility] [address] [place], [address] Sodium [Moles/Vol] 137 mmol/L Normal 136-145 [facility] Comment on above: Performed By: #### L 500.2500 ####[facility] [address] [place], [address] Urea nitrogen [Mass/Vol] 26 mg/dL High 7-18 [facility] Comment on above: Performed By: #### L 500.2500 ####[facility] [address] [place], [address] Bedside Glucoseon 09-20-2024 FINGERSTICK GLU 194 mg/dL High 74-106 [facility] Comment on above: Result Comment: RAJIV GEMENT OF PATIENT CARE PER NURSING PROTOCOL Performed By: #### L 501.080 ####[facility] [address] [place], [address] FINGERSTICK GLU 273 mg/dL High 74-106 [facility] Comment on above: Result Comment: RAJIV GEMENT OF PATIENT CARE PER NURSING PROTOCOL Performed By: #### L 501.080 ####[facility] [address] [place], [address] FINGERSTICK GLU 107 mg/dL High 74-106 [facility] Comment on above: Result Comment: RAJIV GEMENT OF PATIENT CARE PER NURSING PROTOCOL Performed By: #### L 501.080 ####[facility] [address] [place], [address] FINGERSTICK GLU 113 mg/dL High 74-106 [facility] Comment on above: Result Comment: RAJIV GEMENT OF PATIENT CARE PER NURSING PROTOCOL Performed By: #### L 501.080 ####[facility] [address] [place], [address] Chest PA and Lateralon 09-20 Chest PA and Lateral Normal [facility] Bedside Glucoseon 09-19-2024 FINGERSTICK GLU 167 mg/dL High 74-106 [facility] Comment on above: Result Comment: RAJIV GEMENT OF PATIENT CARE PER NURSING PROTOCOL Performed By: #### L 501.080 ####[facility] [address] [place], [address] FINGERSTICK GLU 210 mg/dL High 74-106 [facility] Comment on above: Result Comment: RAJIV GEMENT OF PATIENT CARE PER NURSING PROTOCOL Performed By: #### L 501.080 ####[facility] [address] [place], [address] FINGERSTICK GLU 124 mg/dL High -106 [facility] Comment on above: Result Comment: RAJIV GEMENT OF PATIENT CARE PER NURSING PROTOCOL Performed By: #### L 501.080 ####[facility] [address] [place], [address] FINGERSTICK GLU 140 mg/dL High -106 [facility] Comment on above: Result Comment: RAJIV GEMENT OF PATIENT CARE PER NURSING PROTOCOL Performed By: #### L 501.080 ####[facility] [address] [place], [address] Creatinine (U) [Mass/Vol]Ord ered By: Maritza Rhodeskenneth on 09-19-2024 Urine creatinine measurement (mass/volume) 91.40 mg/dL NO RANGE EST. [facility] Creatinine, Urine (random)on 09-19-2024 UR CREAT 91.40 mg/dL Normal NO RANGE EST. [facility] Comment on above: Performed By: #### L 501.1200 ####[facility] [address] [place], [address] Ferritinon 09-19-2024 Ferritin [Mass/Vol] 159 ng/mL Normal 8-252 [facility] Comment on above: Performed By: #### L 503.6030, L503.6550 ####[facility] [address] [place], [address] Ferritin measurementOrdered By: Maritza Rhodeskenneth on 09-19-2024 Ferritin measurement 159 ng/mL 8-252 [facility] Iron (Unsp spec) [Mass/Mass] Ordered By: Maritza Rhodeskenneth on 09-19-2024 Iron measurement (mass/mass) 31 ug/dL Low 50-170 [facility] Iron saturation [Mass fracti on]Ordered By: Maritza Ghada on 09-19-2024 Serum or plasma iron saturation measurement (mass fraction) 12.9 % Low 15.0-55.0 [facility] Iron+Iron Binding Capacityon 09-19-2024 Iron [Mass/Vol] 31 ug/dL Low 50-170 [facility] Comment on above: Performed By: #### L 503.6030, L503.6550 ####[facility] [address] [place], [address] IRON SATURATION 12.9 Low 15.0-55.0 [facility] Comment on above: Performed By: #### L 503.6030, L503.6550 ####[facility] [address] [place], [address] TIBC 240 ug/dL Low 250-450 [facility] Comment on above: Performed By: #### L 503.6030, L503.6550 ####[facility] [address] [place], [address] TIBCOrdered By: Maritza Ghada on 09-19-2024 TIBC 240 ug/dL Low 250-450 [facility] Basic Metabolic Profile (BMP )on 09-18-2024 BUN/CRE 15.2 RATIO Normal 10-20 [facility] Comment on above: Performed By: #### L 100.0100, L500.2500 ####[facility] [address] [place], [address] CA,Total 9.0 mg/dL Normal 8.5-10.1 [facility] Comment on above: Performed By: #### L 100.0100, L500.2500 ####[facility] [address] [place], [address] Chloride [Moles/Vol] 104 mmol/L Normal 98-107 [facility] Comment on above: Performed By: #### L 100.0100, L500.2500 ####[facility] [address] [place], [address] CO2 [Moles/Vol] 28.0 mmol/L Normal 21.0-32.0 [facility] Comment on above: Performed By: #### L 100.0100, L500.2500 ####[facility] [address] [place], [address] Creatinine [Mass/Vol] 1.25 mg/dL High 0.55-1.02 [facility] Comment on above: Result Comment: The validity of the calculated GFR GFRAA in patients over70 years has not been determined. Clinical correlation isessential. Performed By: #### L 100.0100, L500.2500 ####[facility] [address] [place], [address] ECRCL 35.54 ml/min Normal [facility] Comment on above: Performed By: #### L 100.0100, L500.2500 ####[facility] [address] [place], [address] EST GFR - AA 53 mL/min Low >60 [facility] Comment on above: Result Comment: Afri can Eritrean GFR Calc Performed By: #### L 100.0100, L500.2500 ####[facility] [address] [place], [address] GAP 6 Normal 5-15 [facility] Comment on above: Performed By: #### L 100.0100, L500.2500 ####[facility] [address] [place], [address] GFR/1.73 sq M.predicted among non-blacks MDRD (S/P/Bld) [Vol rate/Area] 44 mL/min/{1.73_m2} Low >60 [facility] Comment on above: Result Comment: Non- GFR Calc Performed By: #### L 100.0100, L500.2500 ####[facility] [address] [place], [address] Glucose [Mass/Vol] 149 mg/dL High 74-106 [facility] Comment on above: Result Comment: Fast ing Glucose result greater than or equal to 126 mg/dLsuggests DIABETES MELLITUS per A.D.A. criteria. Performed By: #### L 100.0100, L500.2500 ####[facility] [address] [place], [address] Potassium [Moles/Vol] 4.2 mmol/L Normal 3.5-5.1 [facility] Comment on above: Performed By: #### L 100.0100, L500.2500 ####[facility] [address] [place], [address] Sodium [Moles/Vol] 138 mmol/L Normal 136-145 [facility] Comment on above: Performed By: #### L 100.0100, L500.2500 ####[facility] [address] [place], [address] Urea nitrogen [Mass/Vol] 19 mg/dL High 7-18 [facility] Comment on above: Performed By: #### L 100.0100, L500.2500 ####[facility] [address] [place], [address] Bedside Glucoseon 09-18-2024 FINGERSTICK GLU 144 mg/dL High 74-106 [facility] Comment on above: Result Comment: RAJIV GEMENT OF PATIENT CARE PER NURSING PROTOCOL Performed By: #### L 501.080 ####[facility] [address] [place], [address] FINGERSTICK GLU 108 mg/dL High 74-106 [facility] Comment on above: Result Comment: RAJIV GEMENT OF PATIENT CARE PER NURSING PROTOCOL Performed By: #### L 501.080 ####[facility] [address] [place], [address] FINGERSTICK GLU 142 mg/dL High 74-106 [facility] Comment on above: Result Comment: RAJIV GEMENT OF PATIENT CARE PER NURSING PROTOCOL Performed By: #### L 501.080 ####[facility] [address] [place], [address] FINGERSTICK GLU 103 mg/dL Normal 74-106 [facility] Comment on above: Result Comment: RAJIV GEMENT OF PATIENT CARE PER NURSING PROTOCOL Performed By: #### L 501.080 ####[facility] [address] [place], [address] Brain/Head without Contrasto n 09-18-2024 Brain/Head without Contrast Normal [facility] CBC W/Diff, Automatedon 11- PLT MORPH GIANT Normal [facility] Comment on above: Performed By: #### L 100.0100, L500.2500 ####[facility] [address] [place], [address] TARGET CELLS RARE Normal [facility] Comment on above: Performed By: #### L 100.0100, L500.2500 ####[facility] [address] [place], [address] Anisocytosis Ql (Bld) 2+ Normal [facility] Comment on above: Performed By: #### L 100.0100, L500.2500 ####[facility] [address] [place], [address] POLYCHROMASIA 1+ Normal [facility] Comment on above: Performed By: #### L 100.0100, L500.2500 ####[facility] [address] [place], [address] MR/POSTOP.ANEon 09-18-2024 MR/POSTOP.ANE Normal [facility] MR/LAFXJALP4dc 09-18-2024 MR/POSTOPAN2 Normal [facility] No Panel InformationOrdered By: Camilo Barrett on 09-18-2024 2+ [facility] Platelet morphology finding Nom (Bld)Ordered By: Camilo Barrett on 09-18-2024 Platelet morphology GIANT [facility] Polychromasia LM Ql (Bld)Ord ered By: Camilo Barrett on 09-18-2024 Blood polychromasia detection by light microscopy 1+ [facility] Target cells LM Ql (Bld)Orde red By: Camilo Barrett on 09-18-2024 Target cell detection RARE [facility] Urine Cultureon 09-18-2024 URC Culture exhibits no growth. Normal [facility] Comment on above: Performed By: #### M 100.2200, L400.0001 ####[facility] [address] [place], [address] Amorphous sediment LM Ql (Ur ine sed)Ordered By: Camilo Barrett on 09-17-2024 Amorphous sediment detection in urine sediment by light microscopy 1+ URATE [facility] Bedside Glucoseon 09-17-2024 FINGERSTICK GLU 221 mg/dL High 74-106 [facility] Comment on above: Result Comment: RAJIV GEMENT OF PATIENT CARE PER NURSING PROTOCOL Performed By: #### L 501.080 ####[facility] [address] [place], [address] FINGERSTICK GLU 101 mg/dL Normal 74-106 [facility] Comment on above: Result Comment: RAJIV GEMENT OF PATIENT CARE PER NURSING PROTOCOL Performed By: #### L 501.080 ####[facility] [address] [place], [address] FINGERSTICK GLU 226 mg/dL High [address] [place] [address] Comment on above: Result Comment: RAJIV GEMENT OF PATIENT CARE PER NURSING PROTOCOL Performed By: #### L 501.080 ####[facility] [address] [place], [address] FINGERSTICK GLU 377 mg/dL High [address] [place] [address] Comment on above: Result Comment: RAJIV GEMENT OF PATIENT CARE PER NURSING PROTOCOL Performed By: #### L 501.080 ####[facility] [address] [place], [address] FINGERSTICK GLU 405 mg/dL High [address] [place] [address] Comment on above: Result Comment: RAJIV GEMENT OF PATIENT CARE PER NURSING PROTOCOL Performed By: #### L 501.080 ####[facility] [address] [place], [address] FINGERSTICK GLU 185 mg/dL High [address] [place] [address] Comment on above: Result Comment: RAJIV GEMENT OF PATIENT CARE PER NURSING PROTOCOL Performed By: #### L 501.080 ####[facility] [address] [place], [address] Brain/Head without Contrasto n 09-17-2024 Brain/Head without Contrast Normal [facility] Clarity (U)Ordered By: Camilo lennon on 09-17-2024 Urine clarity Clear Clear [facility] Color (U)Ordered By: Camilo armas on 09-17-2024 Urine color determination Yellow Yellow [facility] Emergency Department Summary on 09-17-2024 Emergency Department Summary Normal [facility] Glucose Ql (U)Ordered By: Kenneth Barrett on 09-17-2024 Urine glucose detection 250 mg/dl High Normal [facility] HH, Hemoglobin AND Hematocri ton 09-17-2024 Hematocrit (Bld) [Volume fraction] 30.1 % Low 37-47 [facility] Comment on above: Performed By: #### L 100.0600 ####[facility] [address] [place], [address] Hemoglobin (Bld) [Mass/Vol] 9.0 g/dL Low 12.0-15.0 [facility] Comment on above: Performed By: #### L 100.0600 ####[facility] [address] [place], [address] HCT Normal 37-47 [facility] Comment on above: Result Comment: PT I N ED Performed By: #### L 100.0600 ####[facility] [address] [place], [address] HGB Normal 12.0-15.0 [facility] Comment on above: Result Comment: PT I N ED Performed By: #### L 100.0600 ####[facility] [address] [place], [address] Leukocyte esterase Test stri p Ql (U)Ordered By: Camilo Barrett on 09-17-2024 Urine leukocyte esterase detection by dipstick 25 /ul High Negative [facility] Specific gravity (U) [Rel de nsity]Ordered By: Camilo Barrett on 09-17-2024 Urine specific gravity measurement 1.010 1.002-1.03 0 [facility] Urinalysis, Completeon 09-17 AMORPHOUS 1+ URATE Normal [facility] Comment on above: Order Comment: SAROJ TER SPECIMEN Performed By: #### M 100.2200, L400.0001 ####[facility] [address] [place], [address] EPI,SQUAMOUS 0-5 SEEN Normal 5-10 [facility] Comment on above: Order Comment: SAROJ TER SPECIMEN Performed By: #### M 100.2200, L400.0001 ####[facility] [address] [place], [address] RBC 0-5 SEEN Normal 0-5 [facility] Comment on above: Order Comment: SAROJ TER SPECIMEN Performed By: #### M 100.2200, L400.0001 ####[facility] [address] [place], [address] WBC 0-5 SEEN Normal 0-5 [facility] Comment on above: Order Comment: SAROJ TER SPECIMEN Performed By: #### M 100.2200, L400.0001 ####[facility] [address] [place], [address] BACTERIA 0 SEEN Normal None Seen [facility] Comment on above: Order Comment: SAROJ TER SPECIMEN Performed By: #### M 100.2200, L400.0001 ####[facility] [address] [place], [address] Mucus Ql (Urine sed) 0 SEEN Normal [facility] Comment on above: Order Comment: SAROJ TER SPECIMEN Performed By: #### M 100.2200, L400.0001 ####[facility] [address] [place], [address] Urine blood detectionOrdered By: Camilo Barrett on 09-17-2024 Urine blood detection 10 /ul High Negative [facility] Urine cultureOrdered By: Camilo Barrett on 09-17-2024 Urine culture Culture exhibits no growth. [facility] Urine sediment bacteria coun t by microscopy (number/high power field)Ordered By: Camilo Barrett on 09-17-2024 Urine sediment bacteria count by microscopy (number/high power field) 0 SEEN /hpf [facility] Urine total bilirubin detect ion by test stripOrdered By: Camilo Barrett on 09-17-2024 Urine total bilirubin detection by test strip Negative Negative [facility] Urobilinogen Ql (U)Ordered B y: Camilo Barrett on 09-17-2024 Urine urobilinogen measurement Normal mg/dl Normal [facility] Vitamin D,25 Hydroxyon 09-17 Vitamin D 25-OH 37.8 ng/mL Normal [facility] Comment on above: Result Comment: Rose Marie min D 25(OH) Status Range Deficiency <20 ng/mL (50nmol/L) Insufficiency 20 - 30 ng/mL (50 - 75 nmol/L) Sufficiency 30 - 100 ng/mL (75 - 250 nmol/L) Toxicity >100 ng/mL (>250 nmol/L) Performed By: #### L 506.1000 ####[facility] [address] [facility] [address] White blood cell countOrdere d By: Camilo Barrett on 09-17-2024 White blood cell count 0-5 SEEN /hpf 5-10 [facility] pH (U)Ordered By: Camilo Barrett o n 09-17-2024 Urine pH 6.5 5.0 - 8.0 [facility] Bedside Glucoseon 09-16-2024 FINGERSTICK GLU 424 mg/dL High 74-106 [facility] Comment on above: Result Comment: RAJIV GEMENT OF PATIENT CARE PER NURSING PROTOCOL Performed By: #### L 501.080 ####[facility] [address] [place] [address] FINGERSTICK GLU 119 mg/dL High 74-106 [facility] Comment on above: Result Comment: RAJIV GEMENT OF PATIENT CARE PER NURSING PROTOCOL Performed By: #### L 501.080 ####[facility] [address] [facility] [address] FINGERSTICK GLU 107 mg/dL High 74-106 [facility] Comment on above: Result Comment: RAJIV GEMENT OF PATIENT CARE PER NURSING PROTOCOL Performed By: #### L 501.080 ####[facility] [address] [facility] [address] FINGERSTICK GLU 103 mg/dL Normal 74-106 [facility] Comment on above: Result Comment: RAJIV GEMENT OF PATIENT CARE PER NURSING PROTOCOL Performed By: #### L 501.080 ####[facility] [address] [facility] [address] FINGERSTICK GLU 52 mg/dL Low 74-106 [facility] Comment on above: Result Comment: RAJIV GEMENT OF PATIENT CARE PER NURSING PROTOCOL Performed By: #### L 501.080 ####[facility] [address] [place], [address] 71-FP-Aommdnx DOrdered By: Jerman Barrett on 09-15-2024 50-SX-Mlobkis D 37.8 ng/mL [facility] Bedside Glucoseon 09-15-2024 FINGERSTICK GLU 172 mg/dL High 74-106 [facility] Comment on above: Result Comment: RAJIV GEMENT OF PATIENT CARE PER NURSING PROTOCOL Performed By: #### L 501.080 ####[facility] [address] [place], [address] FINGERSTICK GLU 193 mg/dL High 74-106 [facility] Comment on above: Result Comment: RAJIV GEMENT OF PATIENT CARE PER NURSING PROTOCOL Performed By: #### L 501.080 ####[facility] [address] [place], [address] FINGERSTICK GLU 232 mg/dL High 74-106 [facility] Comment on above: Result Comment: RAJIV GEMENT OF PATIENT CARE PER NURSING PROTOCOL Performed By: #### L 501.080 ####[facility] [address] [place], [address] HH, Hemoglobin AND Hematocri ton 09-15-2024 Hematocrit (Bld) [Volume fraction] 27.5 % Low 37-47 [facility] Comment on above: Performed By: #### L 100.0600 ####[facility] [address] [place], [address] Hemoglobin (Bld) [Mass/Vol] 8.4 g/dL Low 12.0-15.0 [facility] Comment on above: Performed By: #### L 100.0600 ####[facility] [address] [place], [address] Basic Metabolic Profile (BMP )on 09-14-2024 BUN/CRE 17.9 RATIO Normal 10-20 [facility] Comment on above: Performed By: #### L 500.2500, L500.3400, L100.0100 ####[facility] [address] [place], [address] CA,Total 8.8 mg/dL Normal 8.5-10.1 [facility] Comment on above: Performed By: #### L 500.2500, L500.3400, L100.0100 ####[facility] [address] [place], [address] Chloride [Moles/Vol] 106 mmol/L Normal 98-107 [facility] Comment on above: Performed By: #### L 500.2500, L500.3400, L100.0100 ####[facility] [address] [place], [address] CO2 [Moles/Vol] 25.0 mmol/L Normal 21.0-32.0 [facility] Comment on above: Performed By: #### L 500.2500, L500.3400, L100.0100 ####[facility] [address] [place], [address] Creatinine [Mass/Vol] 0.89 mg/dL Normal 0.55-1.02 [facility] Comment on above: Result Comment: The validity of the calculated GFR GFRAA in patients over70 years has not been determined. Clinical correlation isessential. Performed By: #### L 500.2500, L500.3400, L100.0100 ####[facility] [address] [place], [address] ECRCL 52.20 ml/min Normal [facility] Comment on above: Performed By: #### L 500.2500, L500.3400, L100.0100 ####[facility] [address] [place], [address] EST GFR - AA 78 mL/min Normal >60 [facility] Comment on above: Result Comment: Afri can Eritrean GFR Calc Performed By: #### L 500.2500, L500.3400, L100.0100 ####[facility] [address] [place], [address] GAP 5 Normal 5-15 [facility] Comment on above: Performed By: #### L 500.2500, L500.3400, L100.0100 ####[facility] [address] [place], [address] GFR/1.73 sq M.predicted among non-blacks MDRD (S/P/Bld) [Vol rate/Area] 64 mL/min/{1.73_m2} Normal >60 [facility] Comment on above: Result Comment: Non- GFR Calc Performed By: #### L 500.2500, L500.3400, L100.0100 ####[facility] [address] [place], [address] Glucose [Mass/Vol] 125 mg/dL High 74-106 [facility] Comment on above: Result Comment: Fast ing Glucose result from 100 to 125 mg/dLsuggests IMPAIRED HOMEOSTASIS per A.D.A. criteria. Performed By: #### L 500.2500, L500.3400, L100.0100 ####[facility] [address] [place], [address] Potassium [Moles/Vol] 3.8 mmol/L Normal 3.5-5.1 [facility] Comment on above: Performed By: #### L 500.2500, L500.3400, L100.0100 ####[facility] [address] [place], [address] Sodium [Moles/Vol] 137 mmol/L Normal 136-145 [facility] Comment on above: Performed By: #### L 500.2500, L500.3400, L100.0100 ####[facility] [address] [place], [address] Urea nitrogen [Mass/Vol] 16 mg/dL Normal 7-18 [facility] Comment on above: Performed By: #### L 500.2500, L500.3400, L100.0100 ####[facility] [address] [place], [address] BUN Normal 7-18 [facility] Comment on above: Result Comment: Canc elled via OM: Order cancelled - Patient discharged Performed By: #### L 500.2500, L100.0100 ####[facility] [address] [place], [address] BUN/CRE Normal 10-20 [facility] Comment on above: Result Comment: Canc elled via OM: Order cancelled - Patient discharged Performed By: #### L 500.2500, L100.0100 ####[facility] [address] [place], [address] CA,Total Normal 8.5-10.1 [facility] Comment on above: Result Comment: Canc elled via OM: Order cancelled - Patient discharged Performed By: #### L 500.2500, L100.0100 ####[facility] [address] [place], [address] CL Normal 98-107 [facility] Comment on above: Result Comment: Canc elled via OM: Order cancelled - Patient discharged Performed By: #### L 500.2500, L100.0100 ####[facility] [address] [place], [address] CO2 Normal 21.0-32.0 [facility] Comment on above: Result Comment: Canc elled via OM: Order cancelled - Patient discharged Performed By: #### L 500.2500, L100.0100 ####[facility] [address] [place], [address] CREAT,SERUM Normal 0.55-1.02 [facility] Comment on above: Result Comment: Canc elled via OM: Order cancelled - Patient discharged Performed By: #### L 500.2500, L100.0100 ####[facility] [address] [place], [address] EST GFR Normal >60 [facility] Comment on above: Result Comment: Canc elled via OM: Order cancelled - Patient discharged Performed By: #### L 500.2500, L100.0100 ####[facility] [address] [place], [address] EST GFR - AA Normal >60 [facility] Comment on above: Result Comment: Canc elled via OM: Order cancelled - Patient discharged Performed By: #### L 500.2500, L100.0100 ####[facility] [address] [place], [address] GAP Normal 5-15 [facility] Comment on above: Result Comment: Canc elled via OM: Order cancelled - Patient discharged Performed By: #### L 500.2500, L100.0100 ####[facility] [address] [place], [address] GLU Normal 74-106 [facility] Comment on above: Result Comment: Canc elled via OM: Order cancelled - Patient discharged Performed By: #### L 500.2500, L100.0100 ####[facility] [address] [place], [address] Potassium Normal 3.5-5.1 [facility] Comment on above: Result Comment: Canc elled via OM: Order cancelled - Patient discharged Performed By: #### L 500.2500, L100.0100 ####[facility] [address] [place], [address] Basic Metabolic Profile (BMP) Normal 136-145 [facility] Comment on above: Result Comment: Canc elled via OM: Order cancelled - Patient discharged Performed By: #### L 500.2500, L100.0100 ####[facility] [address] [place], [address] Bedside Glucoseon 09-14-2024 FINGERSTICK GLU 308 mg/dL High 74-106 [facility] Comment on above: Result Comment: RAJIV GEMENT OF PATIENT CARE PER NURSING PROTOCOL Performed By: #### L 501.080 ####[facility] [address] [place], [address] FINGERSTICK GLU 120 mg/dL High 74-106 [facility] Comment on above: Result Comment: RAJIV GEMENT OF PATIENT CARE PER NURSING PROTOCOL Performed By: #### L 501.080 ####[facility] [address] [place], [address] FINGERSTICK GLU 146 mg/dL High -106 [facility] Comment on above: Result Comment: RAJIV GEMENT OF PATIENT CARE PER NURSING PROTOCOL Performed By: #### L 501.080 ####[facility] [address] [place], [address] FINGERSTICK GLU 124 mg/dL High 74-106 [facility] Comment on above: Result Comment: RAJIV GEMENT OF PATIENT CARE PER NURSING PROTOCOL Performed By: #### L 501.080 ####[facility] [address] [place], [address] CBC W/Diff, Automatedon 08-25 Absolute Lymph 2.41 X10 3/uL Normal 0.83-4.51 [facility] Comment on above: Performed By: #### L 500.2500, L500.3400, L100.0100 ####[facility] [address] [place], [address] Absolute Neut 4.7 X10 3/uL Normal 2.0-7.7 [facility] Comment on above: Performed By: #### L 500.2500, L500.3400, L100.0100 ####[facility] [address] [place], [address] Basophils/100 WBC (Bld) 0.8 % Normal 0-1 [facility] Comment on above: Performed By: #### L 500.2500, L500.3400, L100.0100 ####[facility] [address] [place], [address] Eosinophils/100 WBC (Bld) 4.8 % Normal 0-5 [facility] Comment on above: Performed By: #### L 500.2500, L500.3400, L100.0100 ####[facility] [address] [place], [address] Erythrocyte distribution width (RBC) [Ratio] 19.7 % High 11.6-14.6 [facility] Comment on above: Performed By: #### L 500.2500, L500.3400, L100.0100 ####[facility] [address] [place], [address] Hematocrit (Bld) [Volume fraction] 27.3 % Low 37-47 [facility] Comment on above: Performed By: #### L 500.2500, L500.3400, L100.0100 ####[facility] [address] [place], [address] Hemoglobin (Bld) [Mass/Vol] 8.1 g/dL Low 12.0-15.0 [facility] Comment on above: Performed By: #### L 500.2500, L500.3400, L100.0100 ####[facility] [address] [place], [address] IG% 0.700 Normal 0.0-0.9 [facility] Comment on above: Result Comment: IG% - Immature Granulocytes (promyelocytes, myelocytes andmetamyelocytes) > 1% indicates that a LEFT SHIFT is Present. Performed By: #### L 500.2500, L500.3400, L100.0100 ####[facility] [address] [place], [address] Lymphocytes/100 WBC (Bld) 29.1 % Normal 19-41 [facility] Comment on above: Performed By: #### L 500.2500, L500.3400, L100.0100 ####[facility] [address] [place], [address] MCH (RBC) [Entitic mass] 24.8 pg Low 27.0-32.0 [facility] Comment on above: Performed By: #### L 500.2500, L500.3400, L100.0100 ####[facility] [address] [place], [address] MCHC (RBC) [Mass/Vol] 29.7 g/dL Low 32-36 [facility] Comment on above: Performed By: #### L 500.2500, L500.3400, L100.0100 ####[facility] [address] [place], [address] MCV (RBC) [Entitic vol] 83.7 fL Normal 81-99 [facility] Comment on above: Performed By: #### L 500.2500, L500.3400, L100.0100 ####[facility] [address] [place], [address] Monocytes/100 WBC (Bld) 8.3 % Normal 0-10 [facility] Comment on above: Performed By: #### L 500.2500, L500.3400, L100.0100 ####[facility] [address] [place], [address] Neutrophils/100 WBC (Bld) 56.3 % Normal 47-70 [facility] Comment on above: Performed By: #### L 500.2500, L500.3400, L100.0100 ####[facility] [address] [place], [address] Nucleated RBC (Bld) [#/Vol] 0 10*3/uL Normal 0-5 [facility] Comment on above: Performed By: #### L 500.2500, L500.3400, L100.0100 ####[facility] [address] [place], [address] Platelet mean volume (Bld) [Entitic vol] 10.5 fL Normal 6.2-12.0 [facility] Comment on above: Performed By: #### L 500.2500, L500.3400, L100.0100 ####[facility] [address] [place], [address] Platelets (Bld) [#/Vol] 440 10*3/uL Normal 150-450 [facility] Comment on above: Performed By: #### L 500.2500, L500.3400, L100.0100 ####[facility] [address] [place], [address] RBC (Bld) [#/Vol] 3.26 10*6/uL Low 4.2-5.4 [facility] Comment on above: Performed By: #### L 500.2500, L500.3400, L100.0100 ####[facility] [address] [place], [address] RDW SD 55.7 fl High 35.1-43.9 [facility] Comment on above: Performed By: #### L 500.2500, L500.3400, L100.0100 ####[facility] [address] [place], [address] WBC (Bld) [#/Vol] 8.3 10*3/uL Normal 4.4-11.0 [facility] Comment on above: Performed By: #### L 500.2500, L500.3400, L100.0100 ####[facility] [address] [place], [address] Absolute Neut Normal 2.0-7.7 [facility] Comment on above: Result Comment: Canc elled via OM: Order cancelled - Patient discharged Performed By: #### L 500.2500, L100.0100 ####[facility] [address] [place], [address] HCT Normal 37-47 [facility] Comment on above: Result Comment: Canc elled via OM: Order cancelled - Patient discharged Performed By: #### L 500.2500, L100.0100 ####[facility] [address] [place], [address] HGB Normal 12.0-15.0 [facility] Comment on above: Result Comment: Canc elled via OM: Order cancelled - Patient discharged Performed By: #### L 500.2500, L100.0100 ####[facility] [address] [place], [address] MCH Normal 27.0-32.0 [facility] Comment on above: Result Comment: Canc elled via OM: Order cancelled - Patient discharged Performed By: #### L 500.2500, L100.0100 ####[facility] [address] [place], [address] MCHC Normal 32-36 [facility] Comment on above: Result Comment: Canc elled via OM: Order cancelled - Patient discharged Performed By: #### L 500.2500, L100.0100 ####[facility] [address] [place], [address] MCV Normal 81-99 [facility] Comment on above: Result Comment: Canc elled via OM: Order cancelled - Patient discharged Performed By: #### L 500.2500, L100.0100 ####[facility] [address] [place], [address] NEUT% Normal 47-70 [facility] Comment on above: Result Comment: Canc elled via OM: Order cancelled - Patient discharged Performed By: #### L 500.2500, L100.0100 ####[facility] [address] [place], [address] PLT Normal 150-450 [facility] Comment on above: Result Comment: Canc elled via OM: Order cancelled - Patient discharged Performed By: #### L 500.2500, L100.0100 ####[facility] [address] [place], [address] RBC Normal 4.2-5.4 [facility] Comment on above: Result Comment: Canc elled via OM: Order cancelled - Patient discharged Performed By: #### L 500.2500, L100.0100 ####[facility] [address] [place], [address] RDW CV Normal 11.6-14.6 [facility] Comment on above: Result Comment: Canc elled via OM: Order cancelled - Patient discharged Performed By: #### L 500.2500, L100.0100 ####[facility] [address] [place], [address] RDW SD Normal 35.1-43.9 [facility] Comment on above: Result Comment: Canc elled via OM: Order cancelled - Patient discharged Performed By: #### L 500.2500, L100.0100 ####[facility] [address] [place], [address] WBC Normal 4.4-11.0 [facility] Comment on above: Result Comment: Canc elled via OM: Order cancelled - Patient discharged Performed By: #### L 500.2500, L100.0100 ####[facility] [address] [place], [address] COVID 19 AG RAPID (KRISTINE Stoll)on 09-14-2024 SARS-CoV-2 (COVID-19) RNA MYRIAM+probe Ql (Unsp spec) Normal [facility] Comment on above: Performed By: #### M 100.505 ####[facility] [address] [place], [address] Culture, Blood (WB)on 2023 CUB Normal [facility] Comment on above: Performed By: #### M 200.1000 ####[facility] [address] [place], [address] Liver Profileon 09-14-2024 Albumin [Mass/Vol] 2.0 g/dL Low 3.2-5.0 [facility] Comment on above: Performed By: #### L 500.2500, L500.3400, L100.0100 ####[facility] [address] [place], [address] ALK P 85 U/L Normal 45-117 [facility] Comment on above: Performed By: #### L 500.2500, L500.3400, L100.0100 ####[facility] [address] [place], [address] ALT [Catalytic activity/Vol] 12 U/L Low 13-56 [facility] Comment on above: Performed By: #### L 500.2500, L500.3400, L100.0100 ####[facility] [address] [place], [address] AST [Catalytic activity/Vol] 7 U/L Low 15-37 [facility] Comment on above: Performed By: #### L 500.2500, L500.3400, L100.0100 ####[facility] [address] [place], [address] Bilirubin [Mass/Vol] 0.30 mg/dL Normal 0.20-1.00 [facility] Comment on above: Result Comment: For patients on eltrombopag therapy, use of Dimension Kirksey TBIL is not recommended. Performed By: #### L 500.2500, L500.3400, L100.0100 ####[facility] [address] [place], [address] Bilirubin.direct [Mass/Vol] 0.09 mg/dL Normal 0.00-0.30 [facility] Comment on above: Performed By: #### L 500.2500, L500.3400, L100.0100 ####[facility] [address] [place], [address] Globulin (S) [Mass/Vol] 4.2 g/dL Normal 2.2-4.2 [facility] Comment on above: Performed By: #### L 500.2500, L500.3400, L100.0100 ####[facility] [address] [place], [address] T PROT 6.2 g/dL Low 6.4-8.2 [facility] Comment on above: Performed By: #### L 500.2500, L500.3400, L100.0100 ####[facility] [address] [place], [address] Lower GI hemoglobin IA Ql (S tl)Ordered By: Camilo Barrett on 09-14-2024 Stool gastrointestinal hemoglobin detection by immunologic method Positive Abnormal [facility] Stool Occult Blood iFOBon STOB Positive Normal [facility] Comment on above: Performed By: #### M 100.7900 ####[facility] [address] [place], [address] Absolute neutrophil countOrd ered By: Ronaldo Hickey on 09-13-2024 Absolute neutrophil count 6.3 X10^3/uL 2.0-7.7 [facility] Basic Metabolic Profile (BMP )on 09-13-2024 BUN/CRE 18.8 RATIO Normal 10-20 [facility] Comment on above: Performed By: #### L 500.2500, L100.0100 ####[facility] [address] [place], [address] CA,Total 8.3 mg/dL Low 8.5-10.1 [facility] Comment on above: Performed By: #### L 500.2500, L100.0100 ####[facility] [address] [place], [address] Chloride [Moles/Vol] 108 mmol/L High 98-107 [facility] Comment on above: Performed By: #### L 500.2500, L100.0100 ####[facility] [address] [place], [address] CO2 [Moles/Vol] 24.0 mmol/L Normal 21.0-32.0 [facility] Comment on above: Performed By: #### L 500.2500, L100.0100 ####[facility] [address] [place], [address] Creatinine [Mass/Vol] 0.96 mg/dL Normal 0.55-1.02 [facility] Comment on above: Result Comment: The validity of the calculated GFR GFRAA in patients over70 years has not been determined. Clinical correlation isessential. Performed By: #### L 500.2500, L100.0100 ####[facility] [address] [place], [address] ECRCL 48.38 ml/min Normal [facility] Comment on above: Performed By: #### L 500.2500, L100.0100 ####[facility] [address] [place], [address] EST GFR - AA 72 mL/min Normal >60 [facility] Comment on above: Result Comment: Afri can Eritrean GFR Calc Performed By: #### L 500.2500, L100.0100 ####[facility] [address] [place], [address] GAP 5 Normal 5-15 [facility] Comment on above: Performed By: #### L 500.2500, L100.0100 ####[facility] [address] [place], [address] GFR/1.73 sq M.predicted among non-blacks MDRD (S/P/Bld) [Vol rate/Area] 59 mL/min/{1.73_m2} Low >60 [facility] Comment on above: Result Comment: Non- GFR Calc Performed By: #### L 500.2500, L100.0100 ####[facility] [address] [place], [address] Glucose [Mass/Vol] 107 mg/dL High 74-106 [facility] Comment on above: Result Comment: Fast ing Glucose result from 100 to 125 mg/dLsuggests IMPAIRED HOMEOSTASIS per A.D.A. criteria. Performed By: #### L 500.2500, L100.0100 ####[facility] [address] [place], [address] Potassium [Moles/Vol] 4.1 mmol/L Normal 3.5-5.1 [facility] Comment on above: Performed By: #### L 500.2500, L100.0100 ####[facility] [address] [place], [address] Sodium [Moles/Vol] 138 mmol/L Normal 136-145 [facility] Comment on above: Performed By: #### L 500.2500, L100.0100 ####[facility] [address] [place], [address] Urea nitrogen [Mass/Vol] 18 mg/dL Normal 7-18 [facility] Comment on above: Performed By: #### L 500.2500, L100.0100 ####[facility] [address] [place], [address] Basophil percentageOrdered B y: Ronaldo Hickey on 09-13-2024 Basophil percentage 0.6 % 0-1 [facility] Bedside Glucoseon 09-13-2024 FINGERSTICK GLU 215 mg/dL High 74-106 [facility] Comment on above: Result Comment: RAJIV GEMENT OF PATIENT CARE PER NURSING PROTOCOL Performed By: #### L 501.080 ####[facility] [address] [place], [address] FINGERSTICK GLU 262 mg/dL High -106 [facility] Comment on above: Result Comment: RAJIV GEMENT OF PATIENT CARE PER NURSING PROTOCOL Performed By: #### L 501.080 ####[facility] [address] [facility] [address] FINGERSTICK GLU 379 mg/dL High -106 [facility] Comment on above: Result Comment: RAJIV GEMENT OF PATIENT CARE PER NURSING PROTOCOL Performed By: #### L 501.080 ####[facility] [address] [place], [address] FINGERSTICK GLU 108 mg/dL High [facility]106 [facility] Comment on above: Result Comment: RAJIV GEMENT OF PATIENT CARE PER NURSING PROTOCOL Performed By: #### L 501.080 ####[facility] [address] [place], [address] Blood polychromasia detectio n by light microscopyOrdered By: Ronaldo Hickey on 09-13-2024 Blood polychromasia detection by light microscopy 1+ [facility] Blood urea nitrogen (BUN)/cr eatinine ratioOrdered By: Ronaldo Hickey on 09-13-2024 Blood urea nitrogen (BUN)/creatinine ratio 18.8 RATIO - [facility] CBC W/Diff, Automatedon 08-25 POLYCHROMASIA 1+ Normal [facility] Comment on above: Performed By: #### L 500.2500, L100.0100 ####[facility] [address] [place], [address] OVALOCYTE 1+ Normal [facility] Comment on above: Performed By: #### L 500.2500, L100.0100 ####[facility] [address] [place], [address] SCHISTOCYTES 1+ Normal [facility] Comment on above: Performed By: #### L 500.2500, L100.0100 ####[facility] [address] [place], [address] Anisocytosis Ql (Bld) 1+ Normal [facility] Comment on above: Performed By: #### L 500.2500, L100.0100 ####[facility] [address] [place], [address] TARGET CELLS 1+ Normal [facility] Comment on above: Performed By: #### L 500.2500, L100.0100 ####[facility] [address] [place], [address] Calcium [Mass/Vol]Ordered By : Ronaldo Hickey on 09-13-2024 Serum or plasma calcium measurement (mass/volume) 8.3 mg/dL Low 8.5-10.1 [facility] Carbon dioxide measurementOr dered By: Ronaldo Hickey on 09-13-2024 Carbon dioxide measurement 24.0 mmol/L 21.0-32.0 [facility] Chloride measurementOrdered By: Ronaldo Hickey on 09-13-2024 Chloride measurement 108 mmol/L High 98-107 [facility] Creatinine [Mass/Vol]Ordered By: Ronaldo Hickey on 09-13-2024 Serum or plasma creatinine measurement (mass/volume) 0.96 mg/dL 0.55-1.02 [facility] Eosinophil percentageOrdered By: Ronaldo Hickey on 09-13-2024 Eosinophil percentage 3.4 % 0-5 [facility] Erythrocyte distribution wid th (RBC) [Entitic vol]Ordered By: Ronaldo Hickey on 09-13-2024 Erythrocyte distribution width standard deviation 55.2 fl High 35.1-43.9 [facility] Erythrocyte distribution wid th (RBC) [Ratio]Ordered By: Ronaldo Hickey on 09-13-2024 Erythrocyte distribution width ratio 20.3 % High 11.6-14.6 [facility] Estimated glomerular filtrat ion rate (GFR) AmericanOrdered By: Ronaldo Hickey on 09-13-2024 Estimated glomerular filtration rate (GFR) 72 mL/min >60 [facility] Estimation of creatinine swati aranceOrdered By: Ronaldo Hickey on 09-13-2024 Estimation of creatinine clearance 48.38 ml/min [facility] Glomerular filtration rate ( GFR) estimationOrdered By: Ronaldo Hickey on 09-13-2024 Glomerular filtration rate (GFR) estimation 59 mL/min Low >60 [facility] Glucose measurementOrdered B y: Ronaldo Hickey on 09-13-2024 Glucose measurement 107 mg/dL High 74-106 [facility] Glucose measurement at bedsi deOrdered By: Ronaldo Hickey on 09-13-2024 Glucose measurement at bedside 262 mg/dL High 74-106 [facility] Hematocrit Auto (Bld) [Volum e fraction]Ordered By: Ronaldo Hickey on 09-13-2024 Automated blood hematocrit (percentage) 26.2 % Low 37-47 [facility] Hemoglobin measurementOrdere d By: Ronaldo Hickey on 09-13-2024 Hemoglobin measurement 7.6 g/dL Low 12.0-15.0 [facility] Immature granulocytes/100 WB C Auto (Bld)Ordered By: Ronaldo Hickey on 09-13-2024 Automated immature granulocyte percentage 0.400 % 0.0-0.9 [facility] Lymphocytes Auto (Unsp spec) [#/Vol]Ordered By: Ronaldo Hickey on 09-13-2024 Absolute lymphocyte count 2.47 X10^3/uL 0.83-4.51 [facility] Lymphocytes/100 WBC Auto (Un sp spec)Ordered By: Ronaldo Hickey on 09-13-2024 Automated lymphocyte count as percentage of total leukocytes 24.1 % 19-41 [facility] MCV (RBC) [Entitic vol]Order ed By: Ronaldo Hickey on 09-13-2024 MCV (mean corpuscular volume) determination 83.2 fL 81-99 [facility] Mean corpuscular hemoglobin (MCH) determinationOrdered By: Ronaldo Hickey on 09-13-2024 Mean corpuscular hemoglobin (MCH) determination 24.1 pg Low 27.0-32.0 [facility] Mean corpuscular hemoglobin concentration (MCHC) determinationOrdered By: Ronaldo Hickey on 09-13-2024 Mean corpuscular hemoglobin concentration (MCHC) determination 29.0 g/dL Low 32-36 [facility] Mean platelet volume determi nationOrdered By: Ronaldo Hickey on 09-13-2024 Mean platelet volume determination 10.1 fl 6.2-12.0 [facility] Monocyte percentageOrdered B y: Ronaldo Hickey on 09-13-2024 Monocyte percentage 10.1 % High 0-10 [facility] Neutrophil percentageOrdered By: Ronaldo Hickey on 09-13-2024 Neutrophil percentage 61.4 % 47-70 [facility] Nucleated red blood cell per centageOrdered By: Ronaldo Hickey on 09-13-2024 Nucleated red blood cell percentage 0 % 0-5 [facility] Platelet countOrdered By: Kateryna Hickey on 09-13-2024 Platelet count 390 K/mm3 150-450 [facility] Potassium measurementOrdered By: Ronaldo Hickey on 09-13-2024 Potassium measurement 4.1 mmol/L 3.5-5.1 [facility] RBC Auto (Bld) [#/Vol]Ordere d By: Ronaldo Hickey on 09-13-2024 Automated blood erythrocyte count 3.15 M/mm3 Low 4.2-5.4 [facility] Serum anion gap measurementO rdered By: Ronaldo Hickey on 09-13-2024 Serum anion gap measurement 5 5-15 [facility] Sodium levelOrdered By: Charlie Hickey on 09-13-2024 Sodium level 138 mmol/L 136-145 [facility] Urea nitrogen [Mass/Vol]Orde red By: Ronaldo Hickey on 09-13-2024 Serum or plasma urea nitrogen measurement (mass/volume) 18 mg/dL 7-18 [facility] Urine Cultureon 09-13-2024 URC Normal [facility] Comment on above: Performed By: #### M 100.2200 ####[facility] [address] [place], [address] White blood cell (WBC) count Ordered By: Ronaldo Hickey on 09-13-2024 White blood cell (WBC) count 10.2 K/mm3 4.4-11.0 [facility] Basic Metabolic Profile (BMP )on 09-12-2024 BUN Normal 7-18 [facility] Comment on above: Result Comment: DENYS ENT REFUSED LABS. PATIENT MOVED TO TCU Performed By: #### L 500.2500, L100.0100 ####[facility] [address] [place], [address] BUN/CRE Normal 10-20 [facility] Comment on above: Result Comment: DENYS ENT REFUSED LABS. PATIENT MOVED TO TCU Performed By: #### L 500.2500, L100.0100 ####[facility] [address] [place], [address] CA,Total Normal 8.5-10.1 [facility] Comment on above: Result Comment: DENYS ENT REFUSED LABS. PATIENT MOVED TO TCU Performed By: #### L 500.2500, L100.0100 ####[facility] [address] [place], [address] CL Normal 98-107 [facility] Comment on above: Result Comment: DENYS ENT REFUSED LABS. PATIENT MOVED TO TCU Performed By: #### L 500.2500, L100.0100 ####[facility] [address] [place], [address] CO2 Normal 21.0-32.0 [facility] Comment on above: Result Comment: DENYS ENT REFUSED LABS. PATIENT MOVED TO TCU Performed By: #### L 500.2500, L100.0100 ####[facility] [address] [place], [address] CREAT,SERUM Normal 0.55-1.02 [facility] Comment on above: Result Comment: DENYS ENT REFUSED LABS. PATIENT MOVED TO TCU Performed By: #### L 500.2500, L100.0100 ####[facility] [address] [place], [address] EST GFR Normal >60 [facility] Comment on above: Result Comment: DENYS ENT REFUSED LABS. PATIENT MOVED TO TCU Performed By: #### L 500.2500, L100.0100 ####[facility] [address] [place], [address] EST GFR - AA Normal >60 [facility] Comment on above: Result Comment: DENYS ENT REFUSED LABS. PATIENT MOVED TO TCU Performed By: #### L 500.2500, L100.0100 ####[facility] [address] [place], [address] GAP Normal 5-15 [facility] Comment on above: Result Comment: DENYS ENT REFUSED LABS. PATIENT MOVED TO TCU Performed By: #### L 500.2500, L100.0100 ####[facility] [address] [place], [address] GLU Normal 74-106 [facility] Comment on above: Result Comment: DENYS ENT REFUSED LABS. PATIENT MOVED TO TCU Performed By: #### L 500.2500, L100.0100 ####[facility] [address] [place], [address] Potassium Normal 3.5-5.1 [facility] Comment on above: Result Comment: DENYS ENT REFUSED LABS. PATIENT MOVED TO TCU Performed By: #### L 500.2500, L100.0100 ####[facility] [address] [place], [address] Basic Metabolic Profile (BMP) Normal 136-145 [facility] Comment on above: Result Comment: DENYS ENT REFUSED LABS. PATIENT MOVED TO TCU Performed By: #### L 500.2500, L100.0100 ####[facility] [address] [place], [address] Bedside Glucoseon 09-12-2024 FINGERSTICK GLU 270 mg/dL High 74-106 [facility] Comment on above: Result Comment: RAJIV GEMENT OF PATIENT CARE PER NURSING PROTOCOL Performed By: #### L 501.080 ####[facility] [address] [place], [address] FINGERSTICK GLU 361 mg/dL High -106 [facility] Comment on above: Result Comment: RAJIV GEMENT OF PATIENT CARE PER NURSING PROTOCOL Performed By: #### L 501.080 ####[facility] [address] [place], [address] FINGERSTICK GLU 405 mg/dL High -106 [facility] Comment on above: Result Comment: RAJIV GEMENT OF PATIENT CARE PER NURSING PROTOCOL Performed By: #### L 501.080 ####[facility] [address] [place], [address] FINGERSTICK GLU 135 mg/dL High [address] [place] [address] Comment on above: Result Comment: RAJIV GEMENT OF PATIENT CARE PER NURSING PROTOCOL Performed By: #### L 501.080 ####[facility] [address] [place], [address] CBC W/Diff, Automatedon 08-25 Absolute Neut Normal 2.0-7.7 [facility] Comment on above: Result Comment: DENYS ENT REFUSED LABS. PATIENT MOVED TO TCU Performed By: #### L 500.2500, L100.0100 ####[facility] [address] [place], [address] HCT Normal 37-47 [facility] Comment on above: Result Comment: DENYS ENT REFUSED LABS. PATIENT MOVED TO TCU Performed By: #### L 500.2500, L100.0100 ####[facility] [address] [place], [address] HGB Normal 12.0-15.0 [facility] Comment on above: Result Comment: DENYS ENT REFUSED LABS. PATIENT MOVED TO TCU Performed By: #### L 500.2500, L100.0100 ####[facility] [address] [place], [address] MCH Normal 27.0-32.0 [facility] Comment on above: Result Comment: DENYS ENT REFUSED LABS. PATIENT MOVED TO TCU Performed By: #### L 500.2500, L100.0100 ####[facility] [address] [place], [address] MCHC Normal 32-36 [facility] Comment on above: Result Comment: DENYS ENT REFUSED LABS. PATIENT MOVED TO TCU Performed By: #### L 500.2500, L100.0100 ####[facility] [address] [place], [address] MCV Normal 81-99 [facility] Comment on above: Result Comment: DENYS ENT REFUSED LABS. PATIENT MOVED TO TCU Performed By: #### L 500.2500, L100.0100 ####[facility] [address] [place], [address] NEUT% Normal 47-70 [facility] Comment on above: Result Comment: DENYS ENT REFUSED LABS. PATIENT MOVED TO TCU Performed By: #### L 500.2500, L100.0100 ####[facility] [address] [place], [address] PLT Normal 150-450 [facility] Comment on above: Result Comment: DENYS ENT REFUSED LABS. PATIENT MOVED TO TCU Performed By: #### L 500.2500, L100.0100 ####[facility] [address] [place], [address] RBC Normal 4.2-5.4 [facility] Comment on above: Result Comment: DENYS ENT REFUSED LABS. PATIENT MOVED TO TCU Performed By: #### L 500.2500, L100.0100 ####[facility] [address] [place], [address] RDW CV Normal 11.6-14.6 [facility] Comment on above: Result Comment: DENYS ENT REFUSED LABS. PATIENT MOVED TO TCU Performed By: #### L 500.2500, L100.0100 ####[facility] [address] [place], [address] RDW SD Normal 35.1-43.9 [facility] Comment on above: Result Comment: DENYS ENT REFUSED LABS. PATIENT MOVED TO TCU Performed By: #### L 500.2500, L100.0100 ####[facility] [address] [place], [address] WBC Normal 4.4-11.0 [facility] Comment on above: Result Comment: DENYS ENT REFUSED LABS. PATIENT MOVED TO TCU Performed By: #### L 500.2500, L100.0100 ####[facility] [address] [place], [address] PATH REV Reviewed Normal [facility] Comment on above: Result Comment: LISA COLLADO MD 09/12/2024 AMENDED REPORT 09/12/24 0832 PATH REV previously reported as: February Performed By: #### L 500.2500, L100.0100 ####[facility] [address] [place], [address] Consultation - Infectious Dx on 09-12-2024 Consultation - Infectious Dx Normal [facility] ALP [Catalytic activity/Vol] Ordered By: Roxi Velázquez on 09-11-2024 Serum or plasma alkaline phosphatase measurement 86 U/L 45-117 [facility] ALT [Catalytic activity/Vol] Ordered By: Roxi Velázquez on 09-11-2024 Serum or plasma alanine aminotransferase (ALT) measurement 16 U/L 13-56 [facility] Albumin [Mass/Vol]Ordered By : Roxi Velázquez on 09-11-2024 Serum or plasma albumin measurement (mass/volume) 2.1 g/dL Low 3.2-5.0 [facility] Albumin to globulin ratioOrd ered By: Roxi Velázquez on 09-11-2024 Albumin to globulin ratio 0.6 RATIO Low 0.9-2.4 [facility] Bedside Glucoseon 09-11-2024 FINGERSTICK GLU 170 mg/dL High 74-106 [facility] Comment on above: Result Comment: RAJIV GEMENT OF PATIENT CARE PER NURSING PROTOCOL Performed By: #### L 501.080 ####[facility] [address] [place], [address] FINGERSTICK GLU 232 mg/dL High -106 [facility] Comment on above: Result Comment: RAJIV GEMENT OF PATIENT CARE PER NURSING PROTOCOL Performed By: #### L 501.080 ####[facility] [address] [place], [address] FINGERSTICK GLU 332 mg/dL High [address] [place] [address] Comment on above: Result Comment: RAJIV GEMENT OF PATIENT CARE PER NURSING PROTOCOL Performed By: #### L 501.080 ####[facility] [address] [place], [address] FINGERSTICK GLU 139 mg/dL High [address] [place] [address] Comment on above: Result Comment: RAJIV GEMENT OF PATIENT CARE PER NURSING PROTOCOL Performed By: #### L 501.080 ####[facility] [address] [place], [address] Bilirubin, totalOrdered By: Roxi Velázquez on 09-11-2024 Bilirubin, total 0.40 mg/dL 0.20-1.00 [facility] CBC W/Diff, Automatedon 08-24 Anisocytosis Ql (Bld) 1+ Normal [facility] Comment on above: Performed By: #### L 501.5200, L500.4050, L100.0100, L501.2300 ####[facility] [address] [place], [address] Comprehensive Metabolic Prof ilon 09-11-2024 Albumin [Mass/Vol] 2.1 g/dL Low 3.2-5.0 [facility] Comment on above: Performed By: #### L 501.5200, L500.4050, L100.0100, L501.2300 ####[facility] [address] [place], [address] Albumin/Globulin [Mass ratio] 0.6 {ratio} Low 0.9-2.4 [facility] Comment on above: Performed By: #### L 501.5200, L500.4050, L100.0100, L501.2300 ####[facility] [address] [place], [address] ALK P 86 U/L Normal 45-117 [facility] Comment on above: Performed By: #### L 501.5200, L500.4050, L100.0100, L501.2300 ####[facility] [address] [place], [address] ALT [Catalytic activity/Vol] 16 U/L Normal 13-56 [facility] Comment on above: Performed By: #### L 501.5200, L500.4050, L100.0100, L501.2300 ####[facility] [address] [place], [address] AST [Catalytic activity/Vol] 10 U/L Low 15-37 [facility] Comment on above: Performed By: #### L 501.5200, L500.4050, L100.0100, L501.2300 ####[facility] [address] [place], [address] Bilirubin [Mass/Vol] 0.40 mg/dL Normal 0.20-1.00 [facility] Comment on above: Result Comment: For patients on eltrombopag therapy, use of Dimension Kirksey TBIL is not recommended. Performed By: #### L 501.5200, L500.4050, L100.0100, L501.2300 ####[facility] [address] [place], [address] BUN/CRE 18.6 RATIO Normal 10-20 [facility] Comment on above: Performed By: #### L 501.5200, L500.4050, L100.0100, L501.2300 ####[facility] [address] [place], [address] CA,Total 7.8 mg/dL Low 8.5-10.1 [facility] Comment on above: Performed By: #### L 501.5200, L500.4050, L100.0100, L501.2300 ####[facility] [address] [place], [address] Chloride [Moles/Vol] 108 mmol/L High 98-107 [facility] Comment on above: Performed By: #### L 501.5200, L500.4050, L100.0100, L501.2300 ####[facility] [address] [place], [address] CO2 [Moles/Vol] 25.0 mmol/L Normal 21.0-32.0 [facility] Comment on above: Performed By: #### L 501.5200, L500.4050, L100.0100, L501.2300 ####[facility] [address] [place], [address] Creatinine [Mass/Vol] 0.91 mg/dL Normal 0.55-1.02 [facility] Comment on above: Result Comment: The validity of the calculated GFR GFRAA in patients over70 years has not been determined. Clinical correlation isessential. Performed By: #### L 501.5200, L500.4050, L100.0100, L501.2300 ####[facility] [address] [place], [address] ECRCL 49.94 ml/min Normal [facility] Comment on above: Performed By: #### L 501.5200, L500.4050, L100.0100, L501.2300 ####[facility] [address] [place], [address] EST GFR - AA 76 mL/min Normal >60 [facility] Comment on above: Result Comment: Afri can Eritrean GFR Calc Performed By: #### L 501.5200, L500.4050, L100.0100, L501.2300 ####[facility] [address] [place], [address] GAP 4 Low 5-15 [facility] Comment on above: Performed By: #### L 501.5200, L500.4050, L100.0100, L501.2300 ####[facility] [address] [place], [address] GFR/1.73 sq M.predicted among non-blacks MDRD (S/P/Bld) [Vol rate/Area] 63 mL/min/{1.73_m2} Normal >60 [facility] Comment on above: Result Comment: Non- GFR Calc Performed By: #### L 501.5200, L500.4050, L100.0100, L501.2300 ####[facility] [address] [place], [address] Globulin (S) [Mass/Vol] 3.8 g/dL Normal 2.2-4.2 [facility] Comment on above: Performed By: #### L 501.5200, L500.4050, L100.0100, L501.2300 ####[facility] [address] [place], [address] Glucose [Mass/Vol] 184 mg/dL High 74-106 [facility] Comment on above: Result Comment: Fast ing Glucose result greater than or equal to 126 mg/dLsuggests DIABETES MELLITUS per A.D.A. criteria. Performed By: #### L 501.5200, L500.4050, L100.0100, L501.2300 ####[facility] [address] [place], [address] Potassium [Moles/Vol] 4.1 mmol/L Normal 3.5-5.1 [facility] Comment on above: Performed By: #### L 501.5200, L500.4050, L100.0100, L501.2300 ####[facility] [address] [place], [address] Sodium [Moles/Vol] 137 mmol/L Normal 136-145 [facility] Comment on above: Performed By: #### L 501.5200, L500.4050, L100.0100, L501.2300 ####[facility] [address] [place], [address] T PROT 5.9 g/dL Low 6.4-8.2 [facility] Comment on above: Performed By: #### L 501.5200, L500.4050, L100.0100, L501.2300 ####[facility] [address] [place], [address] Urea nitrogen [Mass/Vol] 17 mg/dL Normal 7-18 [facility] Comment on above: Performed By: #### L 501.5200, L500.4050, L100.0100, L501.2300 ####[facility] [address] [place], [address] Consultation - Intensiviston 09-11-2024 Consultation - Crtt Normal [facility] Magnesiumon 09-11-2024 Magnesium [Mass/Vol] 2.2 mg/dL Normal 1.6-2.6 [facility] Comment on above: Performed By: #### L 501.5200, L500.4050, L100.0100, L501.2300 ####[facility] [address] [place], [place], [address] Magnesium measurementOrdered By: Roxi Velázquez on 09-11-2024 Magnesium measurement 2.2 mg/dL 1.6-2.6 [facility] No Panel InformationOrdered By: Roxi Velázquez on 09-11-2024 10 U/L Low 15-37 [facility] Phosphoruson 09-11-2024 Phosphate [Mass/Vol] 2.8 mg/dL Normal 2.5-4.9 [facility] Comment on above: Performed By: #### L 501.5200, L500.4050, L100.0100, L501.2300 ####[facility] [address] [place], [place], [address] Phosphorus measurementOrdere d By: Roxi Velázquez on 09-11-2024 Phosphorus measurement 2.8 mg/dL 2.5-4.9 [facility] Serum globulin measurementOr dered By: Roxi Velázquez on 09-11-2024 Serum globulin measurement 3.8 g/dL 2.2-4.2 [facility] Total proteinOrdered By: Shara Velázquez on 09-11-2024 Total protein 5.9 g/dL Low 6.4-8.2 [facility] Abdomen/Pelvis W IV Cont ONL Yon 09-10-2024 Abdomen/Pelvis W IV Cont ONLY Normal [facility] Bacteria LM.HPF (Urine sed) [#/Area]Ordered By: Brit Millan on 09-10-2024 Urine sediment bacteria count by microscopy (number/high power field) 4+ /hpf None Seen [facility] Basic Metabolic Profile (BMP )on 09-10-2024 BUN/CRE 17.8 RATIO Normal 10-20 [facility] Comment on above: Performed By: #### L 500.2500, L100.0100 ####[facility] [address] [place], [address] CA,Total 8.7 mg/dL Normal 8.5-10.1 [facility] Comment on above: Performed By: #### L 500.2500, L100.0100 ####[facility] [address] [place], [address] Chloride [Moles/Vol] 102 mmol/L Normal 98-107 [facility] Comment on above: Performed By: #### L 500.2500, L100.0100 ####[facility] [address] [place], [address] CO2 [Moles/Vol] 27.0 mmol/L Normal 21.0-32.0 [facility] Comment on above: Performed By: #### L 500.2500, L100.0100 ####[facility] [address] [place], [address] Creatinine [Mass/Vol] 1.35 mg/dL High 0.55-1.02 [facility] Comment on above: Result Comment: The validity of the calculated GFR GFRAA in patients over70 years has not been determined. Clinical correlation isessential. Performed By: #### L 500.2500, L100.0100 ####[facility] [address] [place], [address] EST GFR - AA 48 mL/min Low >60 [facility] Comment on above: Result Comment: Afri can Eritrean GFR Calc Performed By: #### L 500.2500, L100.0100 ####[facility] [address] [place], [address] GAP 6 Normal 5-15 [facility] Comment on above: Performed By: #### L 500.2500, L100.0100 ####[facility] [address] [place], [address] GFR/1.73 sq M.predicted among non-blacks MDRD (S/P/Bld) [Vol rate/Area] 40 mL/min/{1.73_m2} Low >60 [facility] Comment on above: Result Comment: Non- GFR Calc Performed By: #### L 500.2500, L100.0100 ####[facility] [address] [place], [address] Glucose [Mass/Vol] 178 mg/dL High 74-106 [facility] Comment on above: Result Comment: Fast ing Glucose result greater than or equal to 126 mg/dLsuggests DIABETES MELLITUS per A.D.A. criteria. Performed By: #### L 500.2500, L100.0100 ####[facility] [address] [place], [address] Potassium [Moles/Vol] 4.6 mmol/L Normal 3.5-5.1 [facility] Comment on above: Performed By: #### L 500.2500, L100.0100 ####[facility] [address] [place], [address] Sodium [Moles/Vol] 134 mmol/L Low 136-145 [facility] Comment on above: Performed By: #### L 500.2500, L100.0100 ####[facility] [address] [place], [address] Urea nitrogen [Mass/Vol] 24 mg/dL High 7-18 [facility] Comment on above: Performed By: #### L 500.2500, L100.0100 ####[facility] [address] [place], [address] Bedside Glucoseon 09-10-2024 FINGERSTICK GLU 280 mg/dL High 74-106 [facility] Comment on above: Result Comment: RAJIV BEE OF PATIENT CARE PER NURSING PROTOCOL Performed By: #### L 501.080 ####[facility] [address] [place], [address] Blood cultureOrdered By: Selma Mcneal on 09-10-2024 Blood culture ESBL Klebsiella pneumoniae pne Abnormal [facility] Clarity (U)Ordered By: Renate Millan on 09-10-2024 Urine clarity Cloudy Clear [facility] Color (U)Ordered By: Krishna Martin on 09-10-2024 Urine color determination Yellow Yellow [facility] Emergency Department Summary on 09-10-2024 Emergency Department Summary Normal [facility] Epithelial cells.squamous LM Ql (Urine sed)Ordered By: Brit Millan on 09-10-2024 Squamous epithelial cells detection in urine sediment by light microscopy 0-5 SEEN /hpf 5-10 [facility] H AND P Exam - Hospitaliston 09-10-2024 H&P Exam - Hospitalist Normal [facility] L501.4020on 09-10-2024 TROPONIN-I HS 9 pg/mL Normal 3.0-54.0 [facility] Comment on above: Order Comment: 'TROP ' Serial specimen #1, #2 or #3: 1 Result Comment: Plea se Note: New Test Units and Gender Specific Reference Ranges. For more information see Policy Stat Procedure Kirksey High Sensitivity Troponin (TNIH) and attachments. Performed By: #### L 501.2450, L501.4020, L503.6005 ####[facility] [address] [place], [address] Lactic Acidon 09-10-2024 Lactate [Moles/Vol] 0.7 mmol/L Normal 0.4-1.9 [facility] Comment on above: Order Comment: Y Performed By: #### L 501.2450, L501.4020, L503.6005 ####[facility] [address] [place], [address] Lactic acid measurementOrder ed By: Marcus Mcneal on 09-10-2024 Lactic acid measurement 0.7 mmol/L 0.4-2.0 [facility] Leukocyte esterase Test stri p Ql (U)Ordered By: Brit Millan on 09-10-2024 Urine leukocyte esterase detection by dipstick 500 /ul High Negative [facility] Lipaseon 09-10-2024 Lipase [Catalytic activity/Vol] 30 U/L Normal 13-75 [facility] Comment on above: Order Comment: 'TROP ' Serial specimen #1, #2 or #3: 1 Result Comment: Plea se note:LIPASE revised reference range effective 23.New Lipase methodology. Expected to produce lower valuesthan the previous assay method.NEW Reference Range: 13 - 75 U/L Performed By: #### L 501.2450, L501.4020, L503.6005 ####[facility] [address] [place], [address] Lipase measurementOrdered By : Marcus Mcneal on 09-10-2024 Lipase measurement 30 U/L 13-75 [facility] M100.678on 09-10-2024 M100.678 Pending SARS-CoV-2 (COVID 19) Negative INFLUENZA A Negative INFLUENZA B Negative RSV PCR Negative Normal [facility] Comment on above: Performed By: #### M 100.678 ####[facility] [address] [facility] [place], [address] Manual differential comment Duglas (Bld) [Interp]Ordered By: Brit Millan on 09-10-2024 Blood manual differential comment interpretation (narrative result) SCANNED [facility] Microscopic analysis of urin e for red blood cells (RBC)Ordered By: Brit Millan on 09-10-2024 Microscopic analysis of urine for red blood cells (RBC) 25-50 SEEN /hpf 0-5 [facility] Mucus LM Ql (Urine sed)Order ed By: Brit Millan on 09-10-2024 Mucus detection in urine sediment by light microscopy 2+ /hpf [facility] Pathologist review Duglas (Unsp spec) [Interp]Ordered By: Brit Millan on 09-10-2024 Review by pathologist Reviewed [facility] Protein Test strip Ql (U)Ord ered By: Brit Millan on 09-10-2024 Urine protein assay by test strip, semi-quantitative 30 mg/dl High Negative [facility] Reactive lymphocyte countOrd ered By: Brit Millan on 09-10-2024 Reactive lymphocyte count 1+ [facility] Specific gravity (U) [Rel de nsity]Ordered By: Brit Millan on 09-10-2024 Urine specific gravity measurement 1.010 1.002-1.03 0 [facility] Troponin IOrdered By: Marcus Mcneal on 09-10-2024 Troponin I 9 pg/mL 3.0-54.0 [facility] Urinalysis, Completeon 09-10 BACTERIA 4+ /hpf Normal None Seen [facility] Comment on above: Order Comment: YAMIL CTOR TO SPECIFY Performed By: #### L 400.0001 ####[facility] [address] [place], [address] EPI,SQUAMOUS 0-5 SEEN Normal 5-10 [facility] Comment on above: Order Comment: YAMIL CTOR TO SPECIFY Performed By: #### L 400.0001 ####[facility] [address] [place], [address] Mucus Ql (Urine sed) 2+ /hpf Normal [facility] Comment on above: Order Comment: YAMIL CTOR TO SPECIFY Performed By: #### L 400.0001 ####[facility] [address] [place], [address] RBC 25-50 SEEN Normal 0-5 [facility] Comment on above: Order Comment: YAMIL CTOR TO SPECIFY Performed By: #### L 400.0001 ####[facility] [address] [place], [address] WBC >100 SEEN Normal 0-5 [facility] Comment on above: Order Comment: YAMIL CTOR TO SPECIFY Performed By: #### L 400.0001 ####[facility] [address] [place], [address] Urine blood detectionOrdered By: Brit Millan on 09-10-2024 Urine blood detection 250 /ul High Negative [facility] Urine cultureOrdered By: Selma Mcneal on 09-10-2024 Urine culture ESBL Klebsiella pneumoniae pne Abnormal [facility] Urine glucose detectionOrder ed By: Brit Millan on 09-10-2024 Urine glucose detection Normal mg/dl Normal [facility] Urine total bilirubin detect ion by test stripOrdered By: Brit Millan on 09-10-2024 Urine total bilirubin detection by test strip Negative Negative [facility] White blood cell countOrdere d By: Brit Millan on 09-10-2024 White blood cell count >100 SEEN /hpf 0-5 [facility] pH (U)Ordered By: Brit Millan on 09-10-2024 Urine pH 6.5 5.0 - 8.0 [facility] Endocrinology Visit Reporton 09-05-2024 Endocrinology Visit Report Normal [facility] Basic Metabolic Profile (BMP )on 07-02-2024 BUN Normal -18 [facility] Comment on above: Result Comment: Canc elled via OM: MD Ordered Performed By: #### L 100.0100, L500.2500 ####[facility] [address] [place], [address] BUN/CRE Normal 10-20 [facility] Comment on above: Result Comment: Canc elled via OM: MD Ordered Performed By: #### L 100.0100, L500.2500 ####[facility] [address] [place], [address] CA,Total Normal 8.5-10.1 [facility] Comment on above: Result Comment: Canc elled via OM: MD Ordered Performed By: #### L 100.0100, L500.2500 ####[facility] [address] [place], [address] CL Normal 98-107 [facility] Comment on above: Result Comment: Canc elled via OM: MD Ordered Performed By: #### L 100.0100, L500.2500 ####[facility] [address] [place], [address] CO2 Normal 21.0-32.0 [facility] Comment on above: Result Comment: Canc elled via OM: MD Ordered Performed By: #### L 100.0100, L500.2500 ####[facility] [address] [place], [address] CREAT,SERUM Normal 0.55-1.02 [facility] Comment on above: Result Comment: Canc elled via OM: MD Ordered Performed By: #### L 100.0100, L500.2500 ####[facility] [address] [place], [address] EST GFR Normal >60 [facility] Comment on above: Result Comment: Canc elled via OM: MD Ordered Performed By: #### L 100.0100, L500.2500 ####[facility] [address] [place], [address] EST GFR - AA Normal >60 [facility] Comment on above: Result Comment: Canc elled via OM: MD Ordered Performed By: #### L 100.0100, L500.2500 ####[facility] [address] [place], [address] GAP Normal 5-15 [facility] Comment on above: Result Comment: Canc elled via OM: MD Ordered Performed By: #### L 100.0100, L500.2500 ####[facility] [address] [place], [address] GLU Normal 74-106 [facility] Comment on above: Result Comment: Canc elled via OM: MD Ordered Performed By: #### L 100.0100, L500.2500 ####[facility] [address] [place], [address] Potassium Normal 3.5-5.1 [facility] Comment on above: Result Comment: Canc elled via OM: MD Ordered Performed By: #### L 100.0100, L500.2500 ####[facility] [address] [place], [address] Basic Metabolic Profile (BMP) Normal 136-145 [facility] Comment on above: Result Comment: Canc elled via OM: MD Ordered Performed By: #### L 100.0100, L500.2500 ####[facility] [address] [place], [address] Bedside Glucoseon 07-02-2024 FINGERSTICK GLU 195 mg/dL High 74-106 [facility] Comment on above: Result Comment: RAJIV GEMENT OF PATIENT CARE PER NURSING PROTOCOL Performed By: #### L 501.080 ####[facility] [address] [place], [address] FINGERSTICK GLU 241 mg/dL High 74-106 [facility] Comment on above: Result Comment: RAJIV GEMENT OF PATIENT CARE PER NURSING PROTOCOL Performed By: #### L 501.080 ####[facility] [address] [place], [address] CBC W/Diff, Automatedon Absolute Neut Normal 2.0-7.7 [facility] Comment on above: Result Comment: Canc elled via OM: MD Ordered Performed By: #### L 100.0100, L500.2500 ####[facility] [address] [place], [address] HCT Normal 37-47 [facility] Comment on above: Result Comment: Canc elled via OM: MD Ordered Performed By: #### L 100.0100, L500.2500 ####[facility] [address] [place], [address] HGB Normal 12.0-15.0 [facility] Comment on above: Result Comment: Canc elled via OM: MD Ordered Performed By: #### L 100.0100, L500.2500 ####[facility] [address] [place], [address] MCH Normal 27.0-32.0 [facility] Comment on above: Result Comment: Canc elled via OM: MD Ordered Performed By: #### L 100.0100, L500.2500 ####[facility] [address] [place], [address] MCHC Normal 32-36 [facility] Comment on above: Result Comment: Canc elled via OM: MD Ordered Performed By: #### L 100.0100, L500.2500 ####[facility] [address] [place], [address] MCV Normal 81-99 [facility] Comment on above: Result Comment: Canc elled via OM: MD Ordered Performed By: #### L 100.0100, L500.2500 ####[facility] [address] [place], [address] NEUT% Normal 47-70 [facility] Comment on above: Result Comment: Canc elled via OM: MD Ordered Performed By: #### L 100.0100, L500.2500 ####[facility] [address] [place], [address] PLT Normal 150-450 [facility] Comment on above: Result Comment: Canc elled via OM: MD Ordered Performed By: #### L 100.0100, L500.2500 ####[facility] [address] [place], [address] RBC Normal 4.2-5.4 [facility] Comment on above: Result Comment: Canc elled via OM: MD Ordered Performed By: #### L 100.0100, L500.2500 ####[facility] [address] [place], [address] RDW CV Normal 11.6-14.6 [facility] Comment on above: Result Comment: Canc elled via OM: MD Ordered Performed By: #### L 100.0100, L500.2500 ####[facility] [address] [place], [address] RDW SD Normal 35.1-43.9 [facility] Comment on above: Result Comment: Canc elled via OM: MD Ordered Performed By: #### L 100.0100, L500.2500 ####[facility] [address] [place], [address] WBC Normal 4.4-11.0 [facility] Comment on above: Result Comment: Florinda wallace via OM: Ordered Performed By: #### L 100.0100, L500.2500 ####[facility] [address] [place], [address] Basic Metabolic Profile (BMP )on 07-01-2024 BUN/CRE 25.8 RATIO High 10-20 [facility] Comment on above: Performed By: #### L 100.0100, L500.2500 ####[facility] [address] [place], [address] CA,Total 8.9 mg/dL Normal 8.5-10.1 [facility] Comment on above: Performed By: #### L 100.0100, L500.2500 ####[facility] [address] [place], [address] Chloride [Moles/Vol] 101 mmol/L Normal 98-107 [facility] Comment on above: Performed By: #### L 100.0100, L500.2500 ####[facility] [address] [place], [address] CO2 [Moles/Vol] 28.0 mmol/L Normal 21.0-32.0 [facility] Comment on above: Performed By: #### L 100.0100, L500.2500 ####[facility] [address] [place], [address] Creatinine [Mass/Vol] 0.89 mg/dL Normal 0.55-1.02 [facility] Comment on above: Result Comment: The validity of the calculated GFR GFRAA in patients over70 years has not been determined. Clinical correlation isessential. Performed By: #### L 100.0100, L500.2500 ####[facility] [address] [place], [address] ECRCL 52.34 ml/min Normal [facility] Comment on above: Performed By: #### L 100.0100, L500.2500 ####[facility] [address] [place], [address] EST GFR - AA 78 mL/min Normal >60 [facility] Comment on above: Result Comment: Afri can Eritrean GFR Calc Performed By: #### L 100.0100, L500.2500 ####[facility] [address] [place], [address] GAP 6 Normal 5-15 [facility] Comment on above: Performed By: #### L 100.0100, L500.2500 ####[facility] [address] [place], [address] GFR/1.73 sq M.predicted among non-blacks MDRD (S/P/Bld) [Vol rate/Area] 65 mL/min/{1.73_m2} Normal >60 [facility] Comment on above: Result Comment: Non- GFR Calc Performed By: #### L 100.0100, L500.2500 ####[facility] [address] [place], [address] Glucose [Mass/Vol] 245 mg/dL High 74-106 [facility] Comment on above: Result Comment: Gluc ose result greater than or equal to 200 mg/dLsuggests DIABETES MELLITUS per A.D.A. criteria. Performed By: #### L 100.0100, L500.2500 ####[facility] [address] [place], [address] Potassium [Moles/Vol] 4.1 mmol/L Normal 3.5-5.1 [facility] Comment on above: Performed By: #### L 100.0100, L500.2500 ####[facility] [address] [place], [address] Sodium [Moles/Vol] 135 mmol/L Low 136-145 [facility] Comment on above: Performed By: #### L 100.0100, L500.2500 ####[facility] [address] [place], [address] Urea nitrogen [Mass/Vol] 23 mg/dL High 7-18 [facility] Comment on above: Performed By: #### L 100.0100, L500.2500 ####[facility] [address] [place], [address] Bedside Glucoseon 07-01-2024 FINGERSTICK GLU 133 mg/dL High 74-106 [facility] Comment on above: Result Comment: RAJIV GEMENT OF PATIENT CARE PER NURSING PROTOCOL Performed By: #### L 501.080 ####[facility] [address] [place], [address] FINGERSTICK GLU 200 mg/dL High 74-106 [facility] Comment on above: Result Comment: RAJIV GEMENT OF PATIENT CARE PER NURSING PROTOCOL Performed By: #### L 501.080 ####[facility] [address] [place], [address] FINGERSTICK GLU 318 mg/dL High 74-106 [facility] Comment on above: Result Comment: RAJIV GEMENT OF PATIENT CARE PER NURSING PROTOCOL Performed By: #### L 501.080 ####[facility] [address] [place], [address] FINGERSTICK GLU 262 mg/dL High 74-106 [facility] Comment on above: Result Comment: RAJIV GEMENT OF PATIENT CARE PER NURSING PROTOCOL Performed By: #### L 501.080 ####[facility] [address] [place], [address] CBC W/Diff, Automatedon 09-0 Absolute Lymph 1.47 X10 3/uL Normal 0.83-4.51 [facility] Comment on above: Performed By: #### L 100.0100, L500.2500 ####[facility] [address] [place], [address] Absolute Neut 2.5 X10 3/uL Normal 2.0-7.7 [facility] Comment on above: Performed By: #### L 100.0100, L500.2500 ####[facility] [address] [place], [address] Basophils/100 WBC (Bld) 0.9 % Normal 0-1 [facility] Comment on above: Performed By: #### L 100.0100, L500.2500 ####[facility] [address] [place], [address] Eosinophils/100 WBC (Bld) 0.4 % Normal 0-5 [facility] Comment on above: Performed By: #### L 100.0100, L500.2500 ####[facility] [address] [place], [address] Erythrocyte distribution width (RBC) [Ratio] 26.7 % High 11.6-14.6 [facility] Comment on above: Performed By: #### L 100.0100, L500.2500 ####[facility] [address] [place], [address] Hematocrit (Bld) [Volume fraction] 34.5 % Low 37-47 [facility] Comment on above: Performed By: #### L 100.0100, L500.2500 ####[facility] [address] [place], [address] Hemoglobin (Bld) [Mass/Vol] 10.1 g/dL Low 12.0-15.0 [facility] Comment on above: Performed By: #### L 100.0100, L500.2500 ####[facility] [address] [place], [address] IG% 0.400 Normal 0.0-0.9 [facility] Comment on above: Result Comment: IG% - Immature Granulocytes (promyelocytes, myelocytes andmetamyelocytes) > 1% indicates that a LEFT SHIFT is Present. Performed By: #### L 100.0100, L500.2500 ####[facility] [address] [place], [address] Lymphocytes/100 WBC (Bld) 31.6 % Normal 19-41 [facility] Comment on above: Performed By: #### L 100.0100, L500.2500 ####[facility] [address] [place], [address] MCH (RBC) [Entitic mass] 23.4 pg Low 27.0-32.0 [facility] Comment on above: Performed By: #### L 100.0100, L500.2500 ####[facility] [address] [place], [address] MCHC (RBC) [Mass/Vol] 29.3 g/dL Low 32-36 [facility] Comment on above: Performed By: #### L 100.0100, L500.2500 ####[facility] [address] [place], [address] MCV (RBC) [Entitic vol] 80.0 fL Low 81-99 [facility] Comment on above: Performed By: #### L 100.0100, L500.2500 ####[facility] [address] [place], [address] Monocytes/100 WBC (Bld) 13.5 % High 0-10 [facility] Comment on above: Performed By: #### L 100.0100, L500.2500 ####[facility] [address] [place], [address] Neutrophils/100 WBC (Bld) 53.2 % Normal 47-70 [facility] Comment on above: Performed By: #### L 100.0100, L500.2500 ####[facility] [address] [place], [address] Nucleated RBC (Bld) [#/Vol] 0 10*3/uL Normal 0-5 [facility] Comment on above: Performed By: #### L 100.0100, L500.2500 ####[facility] [address] [place], [address] Platelet mean volume (Bld) [Entitic vol] 10.4 fL Normal 6.2-12.0 [facility] Comment on above: Performed By: #### L 100.0100, L500.2500 ####[facility] [address] [place], [address] Platelets (Bld) [#/Vol] 468 10*3/uL High 150-450 [facility] Comment on above: Performed By: #### L 100.0100, L500.2500 ####[facility] [address] [place], [address] RBC (Bld) [#/Vol] 4.31 10*6/uL Normal 4.2-5.4 [facility] Comment on above: Performed By: #### L 100.0100, L500.2500 ####[facility] [address] [place], [address] RDW SD 75.2 fl High 35.1-43.9 [facility] Comment on above: Performed By: #### L 100.0100, L500.2500 ####[facility] [address] [place], [address] WBC (Bld) [#/Vol] 4.7 10*3/uL Normal 4.4-11.0 [facility] Comment on above: Performed By: #### L 100.0100, L500.2500 ####[facility] [address] [place], [address] Bedside Glucoseon 06-30-2024 FINGERSTICK GLU 337 mg/dL High 74-106 [facility] Comment on above: Result Comment: RAJIV GEMENT OF PATIENT CARE PER NURSING PROTOCOL Performed By: #### L 501.080 ####[facility] [address] [place], [address] FINGERSTICK GLU 424 mg/dL High 74-106 [facility] Comment on above: Result Comment: RAJIV GEMENT OF PATIENT CARE PER NURSING PROTOCOL Performed By: #### L 501.080 ####[facility] [address] [place], [address] FINGERSTICK GLU 365 mg/dL High 74-106 [facility] Comment on above: Result Comment: RAJIV GEMENT OF PATIENT CARE PER NURSING PROTOCOL Performed By: #### L 501.080 ####[facility] [address] [place], [address] CBC W/Diff, Automatedon 09- Anisocytosis Ql (Bld) 3+ Normal [facility] Comment on above: Performed By: #### L 500.4050, L100.0100 ####[facility] [address] [place], [address] MACROCYTOSIS 1+ Normal [facility] Comment on above: Performed By: #### L 500.4050, L100.0100 ####[facility] [address] [place], [address] MICROCYTIC 2+ Normal [facility] Comment on above: Performed By: #### L 500.4050, L100.0100 ####[facility] [address] [place], [address] PLT MORPH LARGE Normal [facility] Comment on above: Performed By: #### L 500.4050, L100.0100 ####[facility] [address] [place], [address] POLYCHROMASIA 1+ Normal [facility] Comment on above: Performed By: #### L 500.4050, L100.0100 ####[facility] [address] [place], [address] SCHISTOCYTES RARE Normal [facility] Comment on above: Performed By: #### L 500.4050, L100.0100 ####[facility] [address] [place], [address] TARGET CELLS RARE Normal [facility] Comment on above: Performed By: #### L 500.4050, L100.0100 ####[facility] [address] [place], [address] PLT EST ADEQUATE Normal ADEQ [facility] Comment on above: Performed By: #### L 500.4050, L100.0100 ####[facility] [address] [place], [address] SMEAR COMMENT SCANNED Normal [facility] Comment on above: Performed By: #### L 500.4050, L100.0100 ####[facility] [address] [place], [address] CPK Total, Creatine Kinaseon 06-30-2024 CPK TOTAL 93 U/L Normal 26-192 [facility] Comment on above: Performed By: #### L 501.3620 ####[facility] [address] [place], [address] Comprehensive Metabolic Prof ilon 06-30-2024 Albumin [Mass/Vol] 2.5 g/dL Low 3.2-5.0 [facility] Comment on above: Performed By: #### L 500.4050, L100.0100 ####[facility] [address] [place], [address] Albumin/Globulin [Mass ratio] 0.6 {ratio} Low 0.9-2.4 [facility] Comment on above: Performed By: #### L 500.4050, L100.0100 ####[facility] [address] [place], [address] ALK P 81 U/L Normal 45-117 [facility] Comment on above: Performed By: #### L 500.4050, L100.0100 ####[facility] [address] [place], [address] ALT [Catalytic activity/Vol] 19 U/L Normal 13-56 [facility] Comment on above: Performed By: #### L 500.4050, L100.0100 ####[facility] [address] [place], [address] AST [Catalytic activity/Vol] 22 U/L Normal 15-37 [facility] Comment on above: Performed By: #### L 500.4050, L100.0100 ####[facility] [address] [place], [address] Bilirubin [Mass/Vol] 0.30 mg/dL Normal 0.20-1.00 [facility] Comment on above: Result Comment: For patients on eltrombopag therapy, use of Dimension [place] TBIL is not recommended. Performed By: #### L 500.4050, L100.0100 ####[facility] [address] [place], [address] BUN/CRE 19.5 RATIO Normal 10-20 [facility] Comment on above: Performed By: #### L 500.4050, L100.0100 ####[facility] [address] [place], [address] CA,Total 8.4 mg/dL Low 8.5-10.1 [facility] Comment on above: Performed By: #### L 500.4050, L100.0100 ####[facility] [address] [place], [address] Chloride [Moles/Vol] 101 mmol/L Normal 98-107 [facility] Comment on above: Performed By: #### L 500.4050, L100.0100 ####[facility] [address] [place], [address] CO2 [Moles/Vol] 24.0 mmol/L Normal 21.0-32.0 [facility] Comment on above: Performed By: #### L 500.4050, L100.0100 ####[facility] [address] [place], [address] Creatinine [Mass/Vol] 0.92 mg/dL Normal 0.55-1.02 [facility] Comment on above: Result Comment: The validity of the calculated GFR GFRAA in patients over70 years has not been determined. Clinical correlation isessential. Performed By: #### L 500.4050, L100.0100 ####[facility] [address] [place], [address] ECRCL 50.35 ml/min Normal [facility] Comment on above: Performed By: #### L 500.4050, L100.0100 ####[facility] [address] [place], [address] EST GFR - AA 75 mL/min Normal >60 [facility] Comment on above: Result Comment: Afri can Eritrean GFR Calc Performed By: #### L 500.4050, L100.0100 ####[facility] [address] [place], [address] GAP 10 Normal 5-15 [facility] Comment on above: Performed By: #### L 500.4050, L100.0100 ####[facility] [address] [place], [address] GFR/1.73 sq M.predicted among non-blacks MDRD (S/P/Bld) [Vol rate/Area] 62 mL/min/{1.73_m2} Normal >60 [facility] Comment on above: Result Comment: Non- GFR Calc Performed By: #### L 500.4050, L100.0100 ####[facility] [address] [place], [address] Globulin (S) [Mass/Vol] 4.4 g/dL High 2.2-4.2 [facility] Comment on above: Performed By: #### L 500.4050, L100.0100 ####[facility] [address] [place], [address] Glucose [Mass/Vol] 342 mg/dL High 74-106 [facility] Comment on above: Result Comment: Gluc ose result greater than or equal to 200 mg/dLsuggests DIABETES MELLITUS per A.D.A. criteria. Performed By: #### L 500.4050, L100.0100 ####[facility] [address] [place], [address] Potassium [Moles/Vol] 4.3 mmol/L Normal 3.5-5.1 [facility] Comment on above: Performed By: #### L 500.4050, L100.0100 ####[facility] [address] [place], [address] Sodium [Moles/Vol] 135 mmol/L Low 136-145 [facility] Comment on above: Performed By: #### L 500.4050, L100.0100 ####[facility] [address] [place], [address] T PROT 6.9 g/dL Normal 6.4-8.2 [facility] Comment on above: Performed By: #### L 500.4050, L100.0100 ####[facility] [address] [place], [address] Urea nitrogen [Mass/Vol] 18 mg/dL Normal 7-18 [facility] Comment on above: Performed By: #### L 500.4050, L100.0100 ####[facility] [address] [place], [address] 12 Lead EKGon 06-29-2024 12 Lead EKG Normal [facility] Basic Metabolic Profile (BMP )on 06-29-2024 BUN/CRE 17.0 RATIO Normal 10-20 [facility] Comment on above: Order Comment: 'TROP ' Serial specimen #1, #2 or #3: 1 Performed By: #### L 501.4020, L500.2500, L500.4050 ####[facility] [address] [place], [address] CA,Total 8.9 mg/dL Normal 8.5-10.1 [facility] Comment on above: Order Comment: 'TROP ' Serial specimen #1, #2 or #3: 1 Performed By: #### L 501.4020, L500.2500, L500.4050 ####[facility] [address] [place], [address] Chloride [Moles/Vol] 98 mmol/L Normal 98-107 [facility] Comment on above: Order Comment: 'TROP ' Serial specimen #1, #2 or #3: 1 Performed By: #### L 501.4020, L500.2500, L500.4050 ####[facility] [address] [place], [address] CO2 [Moles/Vol] 28.0 mmol/L Normal 21.0-32.0 [facility] Comment on above: Order Comment: 'TROP ' Serial specimen #1, #2 or #3: 1 Performed By: #### L 501.4020, L500.2500, L500.4050 ####[facility] [address] [place], [address] Creatinine [Mass/Vol] 1.06 mg/dL High 0.55-1.02 [facility] Comment on above: Order Comment: 'TROP ' Serial specimen #1, #2 or #3: 1 Result Comment: The validity of the calculated GFR GFRAA in patients over70 years has not been determined. Clinical correlation isessential. Performed By: #### L 501.4020, L500.2500, L500.4050 ####[facility] [address] [place], [address] EST GFR - AA 64 mL/min Normal >60 [facility] Comment on above: Order Comment: 'TROP ' Serial specimen #1, #2 or #3: 1 Result Comment: Afri can Eritrean GFR Calc Performed By: #### L 501.4020, L500.2500, L500.4050 ####[facility] [address] [place], [address] GAP 7 Normal 5-15 [facility] Comment on above: Order Comment: 'TROP ' Serial specimen #1, #2 or #3: 1 Performed By: #### L 501.4020, L500.2500, L500.4050 ####[facility] [address] [place], [address] GFR/1.73 sq M.predicted among non-blacks MDRD (S/P/Bld) [Vol rate/Area] 53 mL/min/{1.73_m2} Low >60 [facility] Comment on above: Order Comment: 'TROP ' Serial specimen #1, #2 or #3: 1 Result Comment: Non- GFR Calc Performed By: #### L 501.4020, L500.2500, L500.4050 ####[facility] [address] [place], [address] Glucose [Mass/Vol] 269 mg/dL High 74-106 [facility] Comment on above: Order Comment: 'TROP ' Serial specimen #1, #2 or #3: 1 Result Comment: Gluc ose result greater than or equal to 200 mg/dLsuggests DIABETES MELLITUS per A.D.A. criteria. Performed By: #### L 501.4020, L500.2500, L500.4050 ####[facility] [address] [place], [address] Potassium [Moles/Vol] 4.3 mmol/L Normal 3.5-5.1 [facility] Comment on above: Order Comment: 'TROP ' Serial specimen #1, #2 or #3: 1 Performed By: #### L 501.4020, L500.2500, L500.4050 ####[facility] [address] [place], [address] Sodium [Moles/Vol] 133 mmol/L Low 136-145 [facility] Comment on above: Order Comment: 'TROP ' Serial specimen #1, #2 or #3: 1 Performed By: #### L 501.4020, L500.2500, L500.4050 ####[facility] [address] [place], [address] Urea nitrogen [Mass/Vol] 18 mg/dL Normal 7-18 [facility] Comment on above: Order Comment: 'TROP ' Serial specimen #1, #2 or #3: 1 Performed By: #### L 501.4020, L500.2500, L500.4050 ####[facility] [address] [place], [address] CBC W/Diff, Automatedon 09-0 DIFF INDICATED? SCAN CRITERIA MET Normal [facility] Comment on above: Result Comment: DUPL ICATE ORDER Performed By: #### L 100.0100 ####[facility] [address] [place], [address] Anisocytosis Ql (Bld) 2+ Normal [facility] Comment on above: Result Comment: DUPL ICATE ORDER Performed By: #### L 100.0100 ####[facility] [address] [place], [address] HYPOCHROMASIA 1+ Normal [facility] Comment on above: Result Comment: DUPL ICATE ORDER Performed By: #### L 100.0100 ####[facility] [address] [place], [address] Absolute Lymph 1.31 X10 3/uL Normal 0.83-4.51 [facility] Comment on above: Performed By: #### L 100.0100 ####[facility] [address] [place], [address] Absolute Neut 4.1 X10 3/uL Normal 2.0-7.7 [facility] Comment on above: Performed By: #### L 100.0100 ####[facility] [address] [place], [address] Basophils/100 WBC (Bld) 1.2 % High 0-1 [facility] Comment on above: Performed By: #### L 100.0100 ####[facility] [address] [place], [address] Eosinophils/100 WBC (Bld) 0.1 % Normal 0-5 [facility] Comment on above: Performed By: #### L 100.0100 ####[facility] [address] [place], [address] Erythrocyte distribution width (RBC) [Ratio] 27.1 % High 11.6-14.6 [facility] Comment on above: Performed By: #### L 100.0100 ####[facility] [address] [place], [address] Hematocrit (Bld) [Volume fraction] 35.6 % Low 37-47 [facility] Comment on above: Performed By: #### L 100.0100 ####[facility] [address] [place], [address] Hemoglobin (Bld) [Mass/Vol] 10.2 g/dL Low 12.0-15.0 [facility] Comment on above: Performed By: #### L 100.0100 ####[facility] [address] [place], [address] IG% 0.700 Normal 0.0-0.9 [facility] Comment on above: Result Comment: IG% - Immature Granulocytes (promyelocytes, myelocytes andmetamyelocytes) > 1% indicates that a LEFT SHIFT is Present. Performed By: #### L 100.0100 ####[facility] [address] [place], [address] Lymphocytes/100 WBC (Bld) 18.9 % Low 19-41 [facility] Comment on above: Performed By: #### L 100.0100 ####[facility] [address] [place], [address] MCH (RBC) [Entitic mass] 22.9 pg Low 27.0-32.0 [facility] Comment on above: Performed By: #### L 100.0100 ####[facility] [address] [place], [address] MCHC (RBC) [Mass/Vol] 28.7 g/dL Low 32-36 [facility] Comment on above: Performed By: #### L 100.0100 ####[facility] [address] [place], [address] MCV (RBC) [Entitic vol] 79.8 fL Low 81-99 [facility] Comment on above: Performed By: #### L 100.0100 ####[facility] [address] [place], [address] Monocytes/100 WBC (Bld) 19.6 % High 0-10 [facility] Comment on above: Performed By: #### L 100.0100 ####[facility] [address] [place], [address] Neutrophils/100 WBC (Bld) 59.5 % Normal 47-70 [facility] Comment on above: Performed By: #### L 100.0100 ####[facility] [address] [place], [address] Nucleated RBC (Bld) [#/Vol] 0 10*3/uL Normal 0-5 [facility] Comment on above: Performed By: #### L 100.0100 ####[facility] [address] [place], [address] Platelet mean volume (Bld) [Entitic vol] 10.2 fL Normal 6.2-12.0 [facility] Comment on above: Performed By: #### L 100.0100 ####[facility] [address] [place], [address] Platelets (Bld) [#/Vol] 397 10*3/uL Normal 150-450 [facility] Comment on above: Performed By: #### L 100.0100 ####[facility] [address] [place], [address] RBC (Bld) [#/Vol] 4.46 10*6/uL Normal 4.2-5.4 [facility] Comment on above: Performed By: #### L 100.0100 ####[facility] [address] [place], [address] RDW SD 75.0 fl High 35.1-43.9 [facility] Comment on above: Performed By: #### L 100.0100 ####[facility] [address] [place], [address] WBC (Bld) [#/Vol] 6.9 10*3/uL Normal 4.4-11.0 [facility] Comment on above: Performed By: #### L 100.0100 ####[facility] [address] [place], [address] Absolute Neut Normal 2.0-7.7 [facility] Comment on above: Result Comment: DUPL ICATE ORDER Performed By: #### L 100.0100 ####[facility] [address] [place], [address] HCT Normal 37-47 [facility] Comment on above: Result Comment: DUPL ICATE ORDER Performed By: #### L 100.0100 ####[facility] [address] [place], [address] HGB Normal 12.0-15.0 [facility] Comment on above: Result Comment: DUPL ICATE ORDER Performed By: #### L 100.0100 ####[facility] [address] [place], [address] MCH Normal 27.0-32.0 [facility] Comment on above: Result Comment: DUPL ICATE ORDER Performed By: #### L 100.0100 ####[facility] [address] [place], [address] MCHC Normal 32-36 [facility] Comment on above: Result Comment: DUPL ICATE ORDER Performed By: #### L 100.0100 ####[facility] [address] [place], [address] MCV Normal 81-99 [facility] Comment on above: Result Comment: DUPL ICATE ORDER Performed By: #### L 100.0100 ####[facility] [address] [place], [address] NEUT% Normal 47-70 [facility] Comment on above: Result Comment: DUPL ICATE ORDER Performed By: #### L 100.0100 ####[facility] [address] [place], [address] PLT Normal 150-450 [facility] Comment on above: Result Comment: DUPL ICATE ORDER Performed By: #### L 100.0100 ####[facility] [address] [place], [address] RBC Normal 4.2-5.4 [facility] Comment on above: Result Comment: DUPL ICATE ORDER Performed By: #### L 100.0100 ####[facility] [address] [place], [address] RDW CV Normal 11.6-14.6 [facility] Comment on above: Result Comment: DUPL ICATE ORDER Performed By: #### L 100.0100 ####[facility] [address] [place], [address] RDW SD Normal 35.1-43.9 [facility] Comment on above: Result Comment: DUPL ICATE ORDER Performed By: #### L 100.0100 ####[facility] [address] [place], [address] WBC Normal 4.4-11.0 [facility] Comment on above: Result Comment: DUPL ICATE ORDER Performed By: #### L 100.0100 ####[facility] [address] [place], [address] Chest 1 View (Portable)on Chest 1 View (Portable) Normal [facility] Comprehensive Metabolic Prof ilon 06-29-2024 Albumin [Mass/Vol] 2.8 g/dL Low 3.2-5.0 [facility] Comment on above: Order Comment: 'TROP ' Serial specimen #1, #2 or #3: 1 Performed By: #### L 501.4020, L500.2500, L500.4050 ####[facility] [address] [place], [address] Albumin/Globulin [Mass ratio] 0.6 {ratio} Low 0.9-2.4 [facility] Comment on above: Order Comment: 'TROP ' Serial specimen #1, #2 or #3: 1 Performed By: #### L 501.4020, L500.2500, L500.4050 ####[facility] [address] [place], [address] ALK P 87 U/L Normal 45-117 [facility] Comment on above: Order Comment: 'TROP ' Serial specimen #1, #2 or #3: 1 Performed By: #### L 501.4020, L500.2500, L500.4050 ####[facility] [address] [place], [address] ALT [Catalytic activity/Vol] 19 U/L Normal 13-56 [facility] Comment on above: Order Comment: 'TROP ' Serial specimen #1, #2 or #3: 1 Performed By: #### L 501.4020, L500.2500, L500.4050 ####[facility] [address] [place], [address] AST [Catalytic activity/Vol] 23 U/L Normal 15-37 [facility] Comment on above: Order Comment: 'TROP ' Serial specimen #1, #2 or #3: 1 Performed By: #### L 501.4020, L500.2500, L500.4050 ####[facility] [address] [place], [address] Bilirubin [Mass/Vol] 0.30 mg/dL Normal 0.20-1.00 [facility] Comment on above: Order Comment: 'TROP ' Serial specimen #1, #2 or #3: 1 Result Comment: For patients on eltrombopag therapy, use of Dimension Kirksey TBIL is not recommended. Performed By: #### L 501.4020, L500.2500, L500.4050 ####[facility] [address] [place], [address] Globulin (S) [Mass/Vol] 4.6 g/dL High 2.2-4.2 [facility] Comment on above: Order Comment: 'TROP ' Serial specimen #1, #2 or #3: 1 Performed By: #### L 501.4020, L500.2500, L500.4050 ####[facility] [address] [place], [address] T PROT 7.4 g/dL Normal 6.4-8.2 [facility] Comment on above: Order Comment: 'TROP ' Serial specimen #1, #2 or #3: 1 Performed By: #### L 501.4020, L500.2500, L500.4050 ####[facility] [address] [place], [address] Emergency Department Summary on 06-29-2024 Emergency Department Summary Normal [facility] H AND P Exam - Hospitaliston 06-29-2024 H&P Exam - Hospitalist Normal [facility] L501.4020on 06-29-2024 TROPONIN-I HS 35 pg/mL Normal 3.0-54.0 [facility] Comment on above: Order Comment: 'TROP ' Serial specimen #1, #2 or #3: 1 Result Comment: Frances rivera Note: New Test Units and Gender Specific Reference Ranges. For more information see Policy Stat Procedure Kirksey High Sensitivity Troponin (TNIH) and attachments. Performed By: #### L 501.4020, L500.2500, L500.4050 ####[facility] [address] [place], [address] Urinalysis, Completeon 06-29 CAST,HYALINE 0-5 SEEN Normal 0-5 [facility] Comment on above: Order Comment: CLEAN CATCH Performed By: #### L 400.0001 ####[facility] [address] [place], [address] EPI,SQUAMOUS 0-5 SEEN Normal 5-10 [facility] Comment on above: Order Comment: CLEAN CATCH Performed By: #### L 400.0001 ####[facility] [address] [place], [address] RBC 0-5 SEEN Normal 0-5 [facility] Comment on above: Order Comment: CLEAN CATCH Performed By: #### L 400.0001 ####[facility] [address] [place], [address] BACTERIA 0 SEEN Normal None Seen [facility] Comment on above: Order Comment: CLEAN CATCH Performed By: #### L 400.0001 ####[facility] [address] [place], [address] Mucus Ql (Urine sed) 0 SEEN Normal [facility] Comment on above: Order Comment: CLEAN CATCH Performed By: #### L 400.0001 ####[facility] [address] [place], [address] WBC 0 SEEN Normal 0-5 [facility] Comment on above: Order Comment: CLEAN CATCH Performed By: #### L 400.0001 ####[facility] [address] [place], [address] Endocrinology Visit Reporton 06-27-2024 Endocrinology Visit Report Normal [facility] Urine Cultureon 06-26-2024 URC Normal [facility] Comment on above: Performed By: #### M 100.2200 ####[facility] [address] [place], [address] Basic Metabolic Profile (BMP )on 06-24-2024 BUN/CRE 20.3 RATIO High 10-20 [facility] Comment on above: Performed By: #### L 500.2500, L100.0100 ####[facility] [address] [place], [address] CA,Total 8.8 mg/dL Normal 8.5-10.1 [facility] Comment on above: Performed By: #### L 500.2500, L100.0100 ####[facility] [address] [place], [address] Chloride [Moles/Vol] 103 mmol/L Normal 98-107 [facility] Comment on above: Performed By: #### L 500.2500, L100.0100 ####[facility] [address] [place], [address] CO2 [Moles/Vol] 28.0 mmol/L Normal 21.0-32.0 [facility] Comment on above: Performed By: #### L 500.2500, L100.0100 ####[facility] [address] [place], [address] Creatinine [Mass/Vol] 1.18 mg/dL High 0.55-1.02 [facility] Comment on above: Result Comment: The validity of the calculated GFR GFRAA in patients over70 years has not been determined. Clinical correlation isessential. Performed By: #### L 500.2500, L100.0100 ####[facility] [address] [place], [address] EST GFR - AA 57 mL/min Low >60 [facility] Comment on above: Result Comment: Afri can Eritrean GFR Calc Performed By: #### L 500.2500, L100.0100 ####[facility] [address] [place], [address] GAP 5 Normal 5-15 [facility] Comment on above: Performed By: #### L 500.2500, L100.0100 ####[facility] [address] [place], [address] GFR/1.73 sq M.predicted among non-blacks MDRD (S/P/Bld) [Vol rate/Area] 47 mL/min/{1.73_m2} Low >60 [facility] Comment on above: Result Comment: Non- GFR Calc Performed By: #### L 500.2500, L100.0100 ####[facility] [address] [place], [address] Glucose [Mass/Vol] 139 mg/dL High 74-106 [facility] Comment on above: Result Comment: Fast ing Glucose result greater than or equal to 126 mg/dLsuggests DIABETES MELLITUS per A.D.A. criteria. Performed By: #### L 500.2500, L100.0100 ####[facility] [address] [place], [address] Potassium [Moles/Vol] 4.4 mmol/L Normal 3.5-5.1 [facility] Comment on above: Performed By: #### L 500.2500, L100.0100 ####[facility] [address] [place], [address] Sodium [Moles/Vol] 136 mmol/L Normal 136-145 [facility] Comment on above: Performed By: #### L 500.2500, L100.0100 ####[facility] [address] [place], [address] Urea nitrogen [Mass/Vol] 24 mg/dL High 7-18 [facility] Comment on above: Performed By: #### L 500.2500, L100.0100 ####[facility] [address] [place], [address] CBC W/Diff, Automatedon 09-0 Anisocytosis Ql (Bld) 2+ Normal [facility] Comment on above: Performed By: #### L 500.2500, L100.0100 ####[facility] [address] [place], [address] HYPOCHROMASIA 2+ Normal [facility] Comment on above: Performed By: #### L 500.2500, L100.0100 ####[facility] [address] [place], [address] TARGET CELLS RARE Normal [facility] Comment on above: Performed By: #### L 500.2500, L100.0100 ####[facility] [address] [place], [address] SMEAR COMMENT SCANNED Normal [facility] Comment on above: Performed By: #### L 500.2500, L100.0100 ####[facility] [address] [place], [address] Emergency Department Summary on 06-24-2024 Emergency Department Summary Normal [facility] Urinalysis, Completeon 06-24 BACTERIA 3+ /hpf Normal None Seen [facility] Comment on above: Order Comment: CLEAN CATCH Performed By: #### L 400.0001 ####[facility] [address] [place], [address] CAST,HYALINE 0-5 SEEN Normal 0-5 [facility] Comment on above: Order Comment: CLEAN CATCH Performed By: #### L 400.0001 ####[facility] [address] [place], [address] EPI,SQUAMOUS 0-5 SEEN Normal 5-10 [facility] Comment on above: Order Comment: CLEAN CATCH Performed By: #### L 400.0001 ####[facility] [address] [place], [address] RBC 0-5 SEEN Normal 0-5 [facility] Comment on above: Order Comment: CLEAN CATCH Performed By: #### L 400.0001 ####[facility] [address] [place], [address] WBC 10-25 SEEN Normal 0-5 [facility] Comment on above: Order Comment: CLEAN CATCH Performed By: #### L 400.0001 ####[facility] [address] [place], [address] Mucus Ql (Urine sed) 0 SEEN Normal [facility] Comment on above: Order Comment: CLEAN CATCH Performed By: #### L 400.0001 ####[facility] [address] [place], [address] Basic Metabolic Profile (BMP )on 06-16-2024 BUN/CRE 20.8 RATIO High 10-20 [facility] Comment on above: Performed By: #### L 100.0100, L501.2300, L501.5200, L500.2500 ####[facility] [address] [place], [address] CA,Total 8.7 mg/dL Normal 8.5-10.1 [facility] Comment on above: Performed By: #### L 100.0100, L501.2300, L501.5200, L500.2500 ####[facility] [address] [place], [address] Chloride [Moles/Vol] 107 mmol/L Normal 98-107 [facility] Comment on above: Performed By: #### L 100.0100, L501.2300, L501.5200, L500.2500 ####[facility] [address] [place], [address] CO2 [Moles/Vol] 27.0 mmol/L Normal 21.0-32.0 [facility] Comment on above: Performed By: #### L 100.0100, L501.2300, L501.5200, L500.2500 ####[facility] [address] [place], [address] Creatinine [Mass/Vol] 1.06 mg/dL High 0.55-1.02 [facility] Comment on above: Result Comment: The validity of the calculated GFR GFRAA in patients over70 years has not been determined. Clinical correlation isessential. Performed By: #### L 100.0100, L501.2300, L501.5200, L500.2500 ####[facility] [address] [place], [address] ECRCL 44.40 ml/min Normal [facility] Comment on above: Performed By: #### L 100.0100, L501.2300, L501.5200, L500.2500 ####[facility] [address] [place], [address] EST GFR - AA 64 mL/min Normal >60 [facility] Comment on above: Result Comment: Afri can Eritrean GFR Calc Performed By: #### L 100.0100, L501.2300, L501.5200, L500.2500 ####[facility] [address] [place], [address] GAP 6 Normal 5-15 [facility] Comment on above: Performed By: #### L 100.0100, L501.2300, L501.5200, L500.2500 ####[facility] [address] [place], [address] GFR/1.73 sq M.predicted among non-blacks MDRD (S/P/Bld) [Vol rate/Area] 53 mL/min/{1.73_m2} Low >60 [facility] Comment on above: Result Comment: Non- GFR Calc Performed By: #### L 100.0100, L501.2300, L501.5200, L500.2500 ####[facility] [address] [place], [address] Glucose [Mass/Vol] 214 mg/dL High 74-106 [facility] Comment on above: Result Comment: Gluc ose result greater than or equal to 200 mg/dLsuggests DIABETES MELLITUS per A.D.A. criteria. Performed By: #### L 100.0100, L501.2300, L501.5200, L500.2500 ####[facility] [address] [place], [address] Potassium [Moles/Vol] 4.4 mmol/L Normal 3.5-5.1 [facility] Comment on above: Performed By: #### L 100.0100, L501.2300, L501.5200, L500.2500 ####[facility] [address] [place], [address] Sodium [Moles/Vol] 140 mmol/L Normal 136-145 [facility] Comment on above: Performed By: #### L 100.0100, L501.2300, L501.5200, L500.2500 ####[facility] [address] [place], [address] Urea nitrogen [Mass/Vol] 22 mg/dL High 7-18 [facility] Comment on above: Performed By: #### L 100.0100, L501.2300, L501.5200, L500.2500 ####[facility] [address] [place], [address] Bedside Glucoseon 06-16-2024 FINGERSTICK GLU 334 mg/dL High 74-106 [facility] Comment on above: Result Comment: RAJIV GEMENT OF PATIENT CARE PER NURSING PROTOCOL Performed By: #### L 501.080 ####[facility] [address] [place], [address] FINGERSTICK GLU 358 mg/dL High 74-106 [facility] Comment on above: Result Comment: RAJIV GEMENT OF PATIENT CARE PER NURSING PROTOCOL Performed By: #### L 501.080 ####[facility] [address] [place], [address] FINGERSTICK GLU 394 mg/dL High 74-106 [facility] Comment on above: Result Comment: RAJIV GEMENT OF PATIENT CARE PER NURSING PROTOCOL Performed By: #### L 501.080 ####[facility] [address] [place], [address] CBC W/Diff, Automatedon 05-25 TARGET CELLS 1+ Normal [facility] Comment on above: Performed By: #### L 100.0100, L501.2300, L501.5200, L500.2500 ####[facility] [address] [place], [address] MICROCYTIC 1+ Normal [facility] Comment on above: Performed By: #### L 100.0100, L501.2300, L501.5200, L500.2500 ####[facility] [address] [place], [address] Anisocytosis Ql (Bld) 3+ Normal [facility] Comment on above: Performed By: #### L 100.0100, L501.2300, L501.5200, L500.2500 ####[facility] [address] [place], [address] POLYCHROMASIA 2+ Normal [facility] Comment on above: Performed By: #### L 100.0100, L501.2300, L501.5200, L500.2500 ####[facility] [address] [place], [address] SMEAR COMMENT SCANNED Normal [facility] Comment on above: Performed By: #### L 100.0100, L501.2300, L501.5200, L500.2500 ####[facility] [address] [place], [address] MR/PN.GIon 06-16-2024 MR/PN.GI Normal [facility] Magnesiumon 06-16-2024 Magnesium [Mass/Vol] 2.5 mg/dL Normal 1.6-2.6 [facility] Comment on above: Performed By: #### L 100.0100, L501.2300, L501.5200, L500.2500 ####[facility] [address] [place], [address] Phosphoruson 06-16-2024 Phosphate [Mass/Vol] 2.0 mg/dL Low 2.5-4.9 [facility] Comment on above: Performed By: #### L 100.0100, L501.2300, L501.5200, L500.2500 ####[facility] [address] [place], [address] BNP,B-Type NATRIURETIC PEPTI Mandy 06-15-2024 Natriuretic peptide B (Bld) [Mass/Vol] 148.9 pg/mL High 0-100 [facility] Comment on above: Performed By: #### L 503.6620 ####[facility] [address] [place], [address] Bedside Glucoseon 06-15-2024 FINGERSTICK GLU 366 mg/dL High 74-106 [facility] Comment on above: Result Comment: RAJIV GEMENT OF PATIENT CARE PER NURSING PROTOCOL Performed By: #### L 501.080 ####[facility] [address] [place], [address] FINGERSTICK GLU 408 mg/dL High -106 [facility] Comment on above: Result Comment: RAJIV GEMENT OF PATIENT CARE PER NURSING PROTOCOL Performed By: #### L 501.080 ####[facility] [address] [place], [address] FINGERSTICK GLU 337 mg/dL High [address] [place] [address] Comment on above: Result Comment: RAJIV GEMENT OF PATIENT CARE PER NURSING PROTOCOL Performed By: #### L 501.080 ####[facility] [address] [place], [address] FINGERSTICK GLU 479 mg/dL Invalid Interpretation Code 74-106 [facility] Comment on above: Result Comment: Dr Luis Angel hernandez FollowedMANAGEMENT OF PATIENT CARE PER NURSING PROTOCOL Performed By: #### L 501.080 ####[facility] [address] [place], [address] FINGERSTICK GLU 391 mg/dL High [address] [place] [address] Comment on above: Result Comment: RAJIV GEMENT OF PATIENT CARE PER NURSING PROTOCOL Performed By: #### L 501.080 ####[facility] [address] [place], [address] FINGERSTICK GLU 446 mg/dL High 74-106 [facility] Comment on above: Result Comment: RAJIV GEMENT OF PATIENT CARE PER NURSING PROTOCOL Performed By: #### L 501.080 ####[facility] [address] [place], [address] FINGERSTICK GLU 118 mg/dL High 74-106 [facility] Comment on above: Result Comment: RAJIV GEMENT OF PATIENT CARE PER NURSING PROTOCOL Performed By: #### L 501.080 ####[facility] [address] [place], [address] Blood Gases by [facility] 024 LILLY TEST Positive Normal [facility] Comment on above: Performed By: #### L 9000.0800 ####[facility] [address] [place], [address] Base excess Calc (Bld) [Moles/Vol] -6 mmol/L Low -2 to +2 [facility] Comment on above: Performed By: #### L 9000.0800 ####[facility] [address] [place], [address] Blood Gas Type ART Normal [facility] Comment on above: Performed By: #### L 9000.0800 ####[facility] [address] [place], [address] CO2 [Moles/Vol] 21 mmol/L Normal [facility] Comment on above: Performed By: #### L 9000.0800 ####[facility] [address] [place], [address] FI02 4.0 Normal [facility] Comment on above: Performed By: #### L 9000.0800 ####[facility] [address] [place], [address] HCO3 (Bld) [Moles/Vol] 19.9 mmol/L Low 22-26 [facility] Comment on above: Performed By: #### L 9000.0800 ####[facility] [address] [place], [address] Mode Not entered Normal [facility] Comment on above: Performed By: #### L 9000.0800 ####[facility] [address] [place], [address] O2 Delivery Dev Cannula Normal [facility] Comment on above: Performed By: #### L 9000.0800 ####[facility] [address] [place], [address] pCO2 37.8 mmHg Normal 35-45 [facility] Comment on above: Performed By: #### L 9000.0800 ####[facility] [address] [place], [address] pH (Bld) 7.33 [pH] Low 7.35-7.45 [facility] Comment on above: Performed By: #### L 9000.0800 ####[facility] [address] [place], [address] PO2 67 mmHG Low 75-100 [facility] Comment on above: Performed By: #### L 9000.0800 ####[facility] [address] [place], [address] SITE L Radial Normal [facility] Comment on above: Performed By: #### L 9000.0800 ####[facility] [address] [place], [address] SO2 92 Low 95-99 [facility] Comment on above: Performed By: #### L 9000.0800 ####[facility] [address] [place], [address] CBC W/Diff, Automatedon 08-2 PATH REV Reviewed Normal [facility] [facility] Comment on above: Result Comment: ELIJAH RE Microcytic anemia.Thrombocytosis.Clinical correlation necessary.Arun Kilgore M.D. 06/15/24 AMENDED REPORT 06/15/24 1210 PATH REV previously reported as: February Performed By: #### L 100.0100 ####[facility] [address] [place], [address] Anisocytosis Ql (Bld) 2+ Normal [facility] Comment on above: Performed By: #### L 501.2300, L501.5200, L100.0100, L500.4050 ####[facility] [address] [place], [address] HYPOCHROMASIA 1+ Normal [facility] Comment on above: Performed By: #### L 501.2300, L501.5200, L100.0100, L500.4050 ####[facility] [address] [place], [address] Chest 1 View (Portable)on Chest 1 View (Portable) Normal [facility] Comprehensive Metabolic Prof ilon 06-15-2024 Albumin [Mass/Vol] 2.7 g/dL Low 3.2-5.0 [facility] Comment on above: Performed By: #### L 501.2300, L501.5200, L100.0100, L500.4050 ####[facility] [address] [place], [address] Albumin/Globulin [Mass ratio] 0.6 {ratio} Low 0.9-2.4 [facility] Comment on above: Performed By: #### L 501.2300, L501.5200, L100.0100, L500.4050 ####[facility] [address] [place], [address] ALK P 95 U/L Normal 45-117 [facility] Comment on above: Performed By: #### L 501.2300, L501.5200, L100.0100, L500.4050 ####[facility] [address] [place], [address] ALT [Catalytic activity/Vol] 18 U/L Normal 13-56 [facility] Comment on above: Performed By: #### L 501.2300, L501.5200, L100.0100, L500.4050 ####[facility] [address] [place], [address] AST [Catalytic activity/Vol] 14 U/L Low 15-37 [facility] Comment on above: Performed By: #### L 501.2300, L501.5200, L100.0100, L500.4050 ####[facility] [address] [place], [address] Bilirubin [Mass/Vol] 0.70 mg/dL Normal 0.20-1.00 [facility] Comment on above: Result Comment: For patients on eltrombopag therapy, use of Dimension Kirksey TBIL is not recommended. Performed By: #### L 501.2300, L501.5200, L100.0100, L500.4050 ####[facility] [address] [place], [address] BUN/CRE 26.2 RATIO High 10-20 [facility] Comment on above: Performed By: #### L 501.2300, L501.5200, L100.0100, L500.4050 ####[facility] [address] [place], [address] CA,Total 8.1 mg/dL Low 8.5-10.1 [facility] Comment on above: Performed By: #### L 501.2300, L501.5200, L100.0100, L500.4050 ####[facility] [address] [place], [address] Chloride [Moles/Vol] 101 mmol/L Normal 98-107 [facility] Comment on above: Performed By: #### L 501.2300, L501.5200, L100.0100, L500.4050 ####[facility] [address] [place], [address] CO2 [Moles/Vol] 21.0 mmol/L Normal 21.0-32.0 [facility] Comment on above: Performed By: #### L 501.2300, L501.5200, L100.0100, L500.4050 ####[facility] [address] [place], [address] Creatinine [Mass/Vol] 0.99 mg/dL Normal 0.55-1.02 [facility] Comment on above: Result Comment: The validity of the calculated GFR GFRAA in patients over70 years has not been determined. Clinical correlation isessential. Performed By: #### L 501.2300, L501.5200, L100.0100, L500.4050 ####[facility] [address] [place], [address] ECRCL 47.54 ml/min Normal [facility] Comment on above: Performed By: #### L 501.2300, L501.5200, L100.0100, L500.4050 ####[facility] [address] [place], [address] EST GFR - AA 69 mL/min Normal >60 [facility] Comment on above: Result Comment: Afri can Eritrean GFR Calc Performed By: #### L 501.2300, L501.5200, L100.0100, L500.4050 ####[facility] [address] [place], [address] GAP 11 Normal 5-15 [facility] Comment on above: Performed By: #### L 501.2300, L501.5200, L100.0100, L500.4050 ####[facility] [address] [place], [address] GFR/1.73 sq M.predicted among non-blacks MDRD (S/P/Bld) [Vol rate/Area] 57 mL/min/{1.73_m2} Low >60 [facility] Comment on above: Result Comment: Non- GFR Calc Performed By: #### L 501.2300, L501.5200, L100.0100, L500.4050 ####[facility] [address] [place], [address] Globulin (S) [Mass/Vol] 4.6 g/dL High 2.2-4.2 [facility] Comment on above: Performed By: #### L 501.2300, L501.5200, L100.0100, L500.4050 ####[facility] [address] [place], [address] Glucose [Mass/Vol] 422 mg/dL High 74-106 [facility] Comment on above: Result Comment: Gluc ose result greater than or equal to 200 mg/dLsuggests DIABETES MELLITUS per A.D.A. criteria. Performed By: #### L 501.2300, L501.5200, L100.0100, L500.4050 ####[facility] [address] [place], [address] Potassium [Moles/Vol] 4.8 mmol/L Normal 3.5-5.1 [facility] Comment on above: Performed By: #### L 501.2300, L501.5200, L100.0100, L500.4050 ####[facility] [address] [place], [address] Sodium [Moles/Vol] 133 mmol/L Low 136-145 [facility] Comment on above: Performed By: #### L 501.2300, L501.5200, L100.0100, L500.4050 ####[facility] [address] [place], [address] T PROT 7.3 g/dL Normal 6.4-8.2 [facility] Comment on above: Performed By: #### L 501.2300, L501.5200, L100.0100, L500.4050 ####[facility] [address] [place], [address] Urea nitrogen [Mass/Vol] 26 mg/dL High 7-18 [facility] Comment on above: Performed By: #### L 501.2300, L501.5200, L100.0100, L500.4050 ####[facility] [address] [place], [address] EGD Reporton 06-15-2024 EGD Report Normal [facility] HH, Hemoglobin AND Hematocri ton 06-15-2024 Hematocrit (Bld) [Volume fraction] 29.7 % Low 37-47 [facility] Comment on above: Performed By: #### L 100.0600 ####[facility] [address] [place], [address] Hemoglobin (Bld) [Mass/Vol] 8.9 g/dL Low 12.0-15.0 [facility] Comment on above: Performed By: #### L 100.0600 ####[facility] [address] [place], [address] Hematocrit (Bld) [Volume fraction] 29.3 % Low 37-47 [facility] Comment on above: Performed By: #### L 100.0600 ####[facility] [address] [place], [address] Hemoglobin (Bld) [Mass/Vol] 8.8 g/dL Low 12.0-15.0 [facility] Comment on above: Performed By: #### L 100.0600 ####[facility] [address] [place], [address] Hematocrit (Bld) [Volume fraction] 22.6 % Low 37-47 [facility] Comment on above: Performed By: #### L 100.0600 ####[facility] [address] [place], [address] Hemoglobin (Bld) [Mass/Vol] 6.7 g/dL Low 12.0-15.0 [facility] Comment on above: Performed By: #### L 100.0600 ####[facility] [address] [place], [address] MR/CON.PCM.GIon 06-15-2024 MR/CON.PCM.GI Normal [facility] MR/POSTOP.ANEon 06-15-2024 MR/POSTOP.ANE Normal [facility] MR/[id number] 06-15-2024 MR/POSTOPAN2 Normal [facility] Magnesiumon 06-15-2024 Magnesium [Mass/Vol] 2.6 mg/dL Normal 1.6-2.6 [facility] Comment on above: Performed By: #### L 501.2300, L501.5200, L100.0100, L500.4050 ####[facility] [address] [place], [address] Phosphoruson 06-15-2024 Phosphate [Mass/Vol] 2.6 mg/dL Normal 2.5-4.9 [facility] Comment on above: Performed By: #### L 501.2300, L501.5200, L100.0100, L500.4050 ####[facility] [address] [place], [address] Abdomen/Pelvis without Conto n 06-14-2024 Abdomen/Pelvis without Cont Normal [facility] BRCon 06-14-2024 RC Normal [facility] Comment on above: Result Comment: [id number] AP RC TRANSFUSED 06/15/24 [id number] AP RC TRANSFUSED 06/14/242213 Performed By: #### B RC, BTS ####[facility] [address] [place], [address] Basic Metabolic Profile (BMP )on 06-14-2024 BUN/CRE 28.1 RATIO High 10-20 [facility] Comment on above: Order Comment: 'TROP ' Serial specimen #1, #2 or #3: 1 Performed By: #### L 100.0100, L500.2500, L501.4020 ####[facility] [address] [place], [address] CA,Total 8.6 mg/dL Normal 8.5-10.1 [facility] Comment on above: Order Comment: 'TROP ' Serial specimen #1, #2 or #3: 1 Performed By: #### L 100.0100, L500.2500, L501.4020 ####[facility] [address] [place], [address] Chloride [Moles/Vol] 103 mmol/L Normal 98-107 [facility] Comment on above: Order Comment: 'TROP ' Serial specimen #1, #2 or #3: 1 Performed By: #### L 100.0100, L500.2500, L501.4020 ####[facility] [address] [place], [address] CO2 [Moles/Vol] 28.0 mmol/L Normal 21.0-32.0 [facility] Comment on above: Order Comment: 'TROP ' Serial specimen #1, #2 or #3: 1 Performed By: #### L 100.0100, L500.2500, L501.4020 ####[facility] [address] [place], [address] Creatinine [Mass/Vol] 1.14 mg/dL High 0.55-1.02 [facility] Comment on above: Order Comment: 'TROP ' Serial specimen #1, #2 or #3: 1 Result Comment: The validity of the calculated GFR GFRAA in patients over70 years has not been determined. Clinical correlation isessential. Performed By: #### L 100.0100, L500.2500, L501.4020 ####[facility] [address] [place], [address] EST GFR - AA 59 mL/min Low >60 [facility] Comment on above: Order Comment: 'TROP ' Serial specimen #1, #2 or #3: 1 Result Comment: Afri can Eritrean GFR Calc Performed By: #### L 100.0100, L500.2500, L501.4020 ####[facility] [address] [place], [address] GAP 4 Low 5-15 [facility] Comment on above: Order Comment: 'TROP ' Serial specimen #1, #2 or #3: 1 Performed By: #### L 100.0100, L500.2500, L501.4020 ####[facility] [address] [place], [address] GFR/1.73 sq M.predicted among non-blacks MDRD (S/P/Bld) [Vol rate/Area] 49 mL/min/{1.73_m2} Low >60 [facility] Comment on above: Order Comment: 'TROP ' Serial specimen #1, #2 or #3: 1 Result Comment: Non- GFR Calc Performed By: #### L 100.0100, L500.2500, L501.4020 ####[facility] [address] [place], [address] Glucose [Mass/Vol] 203 mg/dL High 74-106 [facility] Comment on above: Order Comment: 'TROP ' Serial specimen #1, #2 or #3: 1 Result Comment: Gluc ose result greater than or equal to 200 mg/dLsuggests DIABETES MELLITUS per A.D.A. criteria. Performed By: #### L 100.0100, L500.2500, L501.4020 ####[facility] [address] [place], [address] Potassium [Moles/Vol] 5.0 mmol/L Normal 3.5-5.1 [facility] Comment on above: Order Comment: 'TROP ' Serial specimen #1, #2 or #3: 1 Performed By: #### L 100.0100, L500.2500, L501.4020 ####[facility] [address] [place], [address] Sodium [Moles/Vol] 135 mmol/L Low 136-145 [facility] Comment on above: Order Comment: 'TROP ' Serial specimen #1, #2 or #3: 1 Performed By: #### L 100.0100, L500.2500, L501.4020 ####[facility] [address] [place], [address] Urea nitrogen [Mass/Vol] 32 mg/dL High 7-18 [facility] Comment on above: Order Comment: 'TROP ' Serial specimen #1, #2 or #3: 1 Performed By: #### L 100.0100, L500.2500, L501.4020 ####[facility] [address] [place], [address] CBC W/Diff, Automatedon 05-25-2023 Absolute Lymph 2.08 X10 3/uL Normal 0.83-4.51 [facility] Comment on above: Performed By: #### L 100.0100, L500.2500, L501.4020 ####[facility] [address] [place], [address] Absolute Neut 6.2 X10 3/uL Normal 2.0-7.7 [facility] Comment on above: Performed By: #### L 100.0100, L500.2500, L501.4020 ####[facility] [address] [place], [address] Basophils/100 WBC (Bld) 1.0 % Normal 0-1 [facility] Comment on above: Performed By: #### L 100.0100, L500.2500, L501.4020 ####[facility] [address] [place], [address] Eosinophils/100 WBC (Bld) 2.7 % Normal 0-5 [facility] Comment on above: Performed By: #### L 100.0100, L500.2500, L501.4020 ####[facility] [address] [place], [address] Erythrocyte distribution width (RBC) [Ratio] 18.6 % High 11.6-14.6 [facility] Comment on above: Performed By: #### L 100.0100, L500.2500, L501.4020 ####[facility] [address] [place], [address] Hematocrit (Bld) [Volume fraction] 22.0 % Low 37-47 [facility] Comment on above: Performed By: #### L 100.0100, L500.2500, L501.4020 ####[facility] [address] [place], [address] Hemoglobin (Bld) [Mass/Vol] 6.1 g/dL Low 12.0-15.0 [facility] Comment on above: Performed By: #### L 100.0100, L500.2500, L501.4020 ####[facility] [address] [place], [address] IG% 0.400 Normal 0.0-0.9 [facility] Comment on above: Result Comment: IG% - Immature Granulocytes (promyelocytes, myelocytes andmetamyelocytes) > 1% indicates that a LEFT SHIFT is Present. Performed By: #### L 100.0100, L500.2500, L501.4020 ####[facility] [address] [place], [address] Lymphocytes/100 WBC (Bld) 21.6 % Normal 19-41 [facility] Comment on above: Performed By: #### L 100.0100, L500.2500, L501.4020 ####[facility] [address] [place], [address] MCH (RBC) [Entitic mass] 19.4 pg Low 27.0-32.0 [facility] Comment on above: Performed By: #### L 100.0100, L500.2500, L501.4020 ####[facility] [address] [place], [address] MCHC (RBC) [Mass/Vol] 27.7 g/dL Low 32-36 [facility] Comment on above: Performed By: #### L 100.0100, L500.2500, L501.4020 ####[facility] [address] [place], [address] MCV (RBC) [Entitic vol] 69.8 fL Low 81-99 [facility] Comment on above: Performed By: #### L 100.0100, L500.2500, L501.4020 ####[facility] [address] [place], [address] Monocytes/100 WBC (Bld) 10.2 % High 0-10 [facility] Comment on above: Performed By: #### L 100.0100, L500.2500, L501.4020 ####[facility] [address] [place], [address] Neutrophils/100 WBC (Bld) 64.1 % Normal 47-70 [facility] Comment on above: Performed By: #### L 100.0100, L500.2500, L501.4020 ####[facility] [address] [place], [address] Nucleated RBC (Bld) [#/Vol] 0.3 10*3/uL Normal 0-5 [facility] Comment on above: Performed By: #### L 100.0100, L500.2500, L501.4020 ####[facility] [address] [place], [address] Platelet mean volume (Bld) [Entitic vol] 9.4 fL Normal 6.2-12.0 [facility] Comment on above: Performed By: #### L 100.0100, L500.2500, L501.4020 ####[facility] [address] [place], [address] Platelets (Bld) [#/Vol] 730 10*3/uL High 150-450 [facility] Comment on above: Performed By: #### L 100.0100, L500.2500, L501.4020 ####[facility] [address] [place], [address] RBC (Bld) [#/Vol] 3.15 10*6/uL Low 4.2-5.4 [facility] Comment on above: Performed By: #### L 100.0100, L500.2500, L501.4020 ####[facility] [address] [place], [address] RDW SD 46.5 fl High 35.1-43.9 [facility] Comment on above: Performed By: #### L 100.0100, L500.2500, L501.4020 ####[facility] [address] [place], [address] WBC (Bld) [#/Vol] 9.6 10*3/uL Normal 4.4-11.0 [facility] Comment on above: Performed By: #### L 100.0100, L500.2500, L501.4020 ####[facility] [address] [place], [address] Emergency Department Summary on 06-14-2024 Emergency Department Summary Normal [facility] Ferritinon 06-14-2024 Ferritin [Mass/Vol] 5 ng/mL Low 8-252 [facility] Comment on above: Performed By: #### L 503.6030, L500.3400, L503.6550 ####[facility] [address] [place], [address] Free T3on 06-14-2024 Free T3 [Mass/Vol] 1.8 pg/mL Low 2.18-3.98 [facility] Comment on above: Performed By: #### L 501.40992, L506.0400 ####[facility] [address] [place], [address] H AND P Exam - Hospitaliston 06-14-2024 H&P Exam - Hospitalist Normal [facility] Iron+Iron Binding Capacityon 06-14-2024 Iron [Mass/Vol] 13 ug/dL Low 50-170 [facility] Comment on above: Performed By: #### L 503.6030, L500.3400, L503.6550 ####[facility] [address] [place], [address] IRON SATURATION 3.0 Low 15.0-55.0 [facility] Comment on above: Performed By: #### L 503.6030, L500.3400, L503.6550 ####[facility] [address] [place], [address] TIBC 428 ug/dL Normal 250-450 [facility] Comment on above: Performed By: #### L 503.6030, L500.3400, L503.6550 ####[facility] [address] [place], [address] L501.4020on 06-14-2024 TROPONIN-I HS 12 pg/mL Normal 3.0-54.0 [facility] Comment on above: Order Comment: 'TROP ' Serial specimen #1, #2 or #3: 1 Result Comment: Plea se Note: New Test Units and Gender Specific Reference Ranges. For more information see Policy Stat Procedure [facility] High Sensitivity Troponin (TNIH) and attachments. Performed By: #### L 100.0100, L500.2500, L501.4020 ####[facility] [address] [place], [address] Liver Profileon 06-14-2024 Albumin [Mass/Vol] 2.9 g/dL Low 3.2-5.0 [facility] Comment on above: Performed By: #### L 503.6030, L500.3400, L503.6550 ####[facility] [address] [place], [address] ALK P 91 U/L Normal 45-117 [facility] Comment on above: Performed By: #### L 503.6030, L500.3400, L503.6550 ####[facility] [address] [place], [address] ALT [Catalytic activity/Vol] 17 U/L Normal 13-56 [facility] Comment on above: Performed By: #### L 503.6030, L500.3400, L503.6550 ####[facility] [address] [place], [address] AST [Catalytic activity/Vol] 13 U/L Low 15-37 [facility] Comment on above: Performed By: #### L 503.6030, L500.3400, L503.6550 ####[facility] [address] [place], [address] Bilirubin [Mass/Vol] 0.30 mg/dL Normal 0.20-1.00 [facility] Comment on above: Result Comment: For patients on eltrombopag therapy, use of Dimension Kirksey TBIL is not recommended. Performed By: #### L 503.6030, L500.3400, L503.6550 ####[facility] [address] [place], [address] Bilirubin.direct [Mass/Vol] 0.12 mg/dL Normal 0.00-0.30 [facility] Comment on above: Performed By: #### L 503.6030, L500.3400, L503.6550 ####[facility] [address] [place], [address] Globulin (S) [Mass/Vol] 3.9 g/dL Normal 2.2-4.2 [facility] Comment on above: Performed By: #### L 503.6030, L500.3400, L503.6550 ####[facility] [address] [place], [address] T PROT 6.8 g/dL Normal 6.4-8.2 [facility] Comment on above: Performed By: #### L 503.6030, L500.3400, L503.6550 ####[facility] [address] [place], [address] M100.678on 06-14-2024 M100.678 Pending SARS-CoV-2 (COVID 19) Negative INFLUENZA A Negative INFLUENZA B Negative RSV PCR Negative Normal [facility] Comment on above: Performed By: #### M 100.678 ####[facility] [address] [place], [address] Retic Panelon 06-14-2024 IM RET FRACTION 38.60 High 3.00-15.90 [facility] Comment on above: Performed By: #### L 100.9950 ####[facility] [address] [place], [address] IPF 2.0 Normal 1.0-7.9 [facility] Comment on above: Result Comment: Low PLT + Low IPF suggest a bone marrow production disorderLow PLT + high IPF suggests peripheral destruction(e.g.ITP, TTP, HIT, DIC, autoimmune) or bone marrow recoveryTrending of serial IPF measurements is recommended whenevaluating for bone marrow responesValue above normal range indicates an increase in RBCcellular response from bone marrow. Performed By: #### L 100.9950 ####[facility] [address] [place], [address] RET-HE 16.7 pg Low 30-35 [facility] Comment on above: Performed By: #### L 100.9950 ####[facility] [address] [place], [address] Retic Count 3.79 High 0.5-1.5 [facility] Comment on above: Performed By: #### L 100.9950 ####[facility] [address] [place], [address] Stool Occult Blood iFOBon STOB Negative Normal [facility] Comment on above: Performed By: #### M 100.7900 ####[facility] [address] [place], [address] T4 Free Directon 06-14-2024 T4 FREE DIRECT 1.15 ng/dL Normal 0.76-1.46 [facility] Comment on above: Performed By: #### L 501.35863, L506.0400 ####[facility] [address] [place], [address] Thyroid Stim Hormone (TSH)on 06-14-2024 TSH 5.790 uIU/mL High 0.358-3.74 0 [facility] Comment on above: Performed By: #### L 501.9520 ####[facility] [address] [place], [address] Type AND Screenon 06-14-2024 Ab SCREEN GEL Negative Normal [facility] Comment on above: Order Comment: CMV N EG? NNumber of units to transfuse: 2Reason for Ordering Blood: AcuteAre the blood/blood products to be transfused? YIs the patient having/had surgery? NWhen Maura Performed By: #### B RC, BTS ####[facility] [address] [place], [address] Absolute lymphocyte countOrd ered By: Esequielluis angel Harris on 01-11-2024 Lymphocytes Auto (Unsp spec) [#/Vol] 1.77 10*3/uL 0.83-4.51 [facility] Automated lymphocyte count a s percentage of total leukocytesOrdered By: Esequielluis angel Harris on 01-11-2024 Lymphocytes/100 WBC Auto (Unsp spec) 13.2 % 19-41 [facility] Basophil percentageOrdered B y: Esequielluis angel Harris on 01-11-2024 Basophil percentage 5-10 SEEN /hpf 0-5 [facility] Basophils/100 WBC (Bld) 0.8 % 0-1 [facility] Bilirubin [Mass/Vol] 0.50 mg/dL 0.20-1.00 [facility] Comment on above: For patients on eltr ombopag therapy, use of Dimension Kirksey TBIL is not recommended. Chloride [Moles/Vol] 103 mmol/L 98-107 [facility] Eosinophils/100 WBC (Bld) 0.4 % 0-5 [facility] Glucose [Mass/Vol] 213 mg/dL 74-106 [facility] Comment on above: Glucose result great er than or equal to 200 mg/dLsuggests DIABETES MELLITUS per A.D.A. criteria. Hemoglobin (Bld) [Mass/Vol] 11.1 g/dL 12.0-15.0 [facility] Lactate [Moles/Vol] 0.9 mmol/L 0.4-2.0 [facility] Monocytes/100 WBC (Bld) 9.6 % 0-10 [facility] Neutrophils (Bld) [#/Vol] 10.1 10*3/uL 2.0-7.7 [facility] Neutrophils/100 WBC (Bld) 75.6 % 47-70 [facility] Potassium [Moles/Vol] 5.0 mmol/L 3.5-5.1 [facility] Comment on above: Moderate Hemolysis, Result may be falsely increased. Protein [Mass/Vol] 7.7 g/dL 6.4-8.2 [facility] Sodium [Moles/Vol] 134 mmol/L 136-145 [facility] WBC (Bld) [#/Vol] 13.4 10*3/uL 4.4-11.0 [facility] Bilirubin Test strip Ql (U)O rdered By: Esequiel Harris on 01-11-2024 Bilirubin Ql (U) Negative Negative [facility] Determination of erythrocyte mean corpuscular volume (MCV)Ordered By: Esequielluis angel Harris on 01-11-2024 MCV (RBC) [Entitic vol] 82.5 fL 81-99 [facility] Erythrocyte distribution wid th ratioOrdered By: Esequielluis angel Harris on 01-11-2024 Erythrocyte distribution width (RBC) [Ratio] 15.3 % 11.6-14.6 [facility] Erythrocyte distribution wid th standard deviationOrdered By: Esequiel Harris on 01-11-2024 Erythrocyte distribution width (RBC) [Entitic vol] 45.8 fL 35.1-43.9 [facility] Hematocrit Auto (Bld) [Volum e fraction]Ordered By: Esequielluis angel Harris on 01-11-2024 Hematocrit (Bld) [Volume fraction] 35.4 % 37-47 [facility] Immature granulocytes/100 WB C Auto (Bld)Ordered By: Esequielluis angel Harris on 01-11-2024 Immature granulocytes/100 WBC (Bld) 0.400 % 0.0-0.9 [facility] Comment on above: IG% - Immature Granu locytes (promyelocytes, myelocytes and metamyelocytes) > 1% indicates that a LEFT SHIFT is Present. Ketones Test strip Ql (U)Ord ered By: Esequiel Harris on 01-11-2024 Ketones Ql (U) Negative Negative [facility] Laboratory - Chemistry and C hemistry - challengeOrdered By: Esequielluis angel Harris on 01-11-2024 Albumin/Globulin [Mass ratio] 0.7 {ratio} 0.9-2.4 [facility] ALP [Catalytic activity/Vol] 94 U/L 45-117 [facility] ALT [Catalytic activity/Vol] 17 U/L 13-56 [facility] CO2 [Moles/Vol] 25.0 mmol/L 21.0-32.0 [facility] Globulin (S) [Mass/Vol] 4.6 g/dL 2.2-4.2 [facility] Urea nitrogen/Creatinine [Mass ratio] 25.2 mg/mg 10- [facility] - Hematology and Cell countsOrdered By: Esequiel Harris on 01-11-2024 MCH (RBC) [Entitic mass] 25.9 pg 27.0-32.0 [facility] MCHC (RBC) [Mass/Vol] 31.4 g/dL 32-36 [facility] Nucleated RBC/100 WBC (Bld) [Ratio] 0 % 0-5 [facility] Platelet mean volume (Bld) [Entitic vol] 11.1 fL 6.2-12.0 [facility] Platelets (Bld) [#/Vol] 406 10*3/uL 150-450 [facility] Mucus LM Ql (Urine sed)Order ed By: Esequiel Harris on 01-11-2024 Mucus Ql (Urine sed) 0 SEEN /hpf [facility] Nitrite Test strip Ql (U)Ord ered By: Esequiel Harris on 01-11-2024 Nitrite Ql (U) Positive Negative [facility] No Panel InformationOrdered By: Esequiel Harris on 01-11-2024 Estimated Creatinine Clearance Calc 44.88 ml/min [facility] Estimated GFR (MDRD) Amer 66 mL/min >60 [facility] Comment on above: GFR Calc Estimated GFR (MDRD) Non-Af Amer 55 mL/min >60 [facility] Comment on above: Non- GFR Calc Urine RBC 0 SEEN /hpf 0-5 [facility] Protein Test strip Ql (U)Ord ered By: Esequiel Harris on 01-11-2024 Protein Ql (U) 30 mg/dl Negative [facility] RBC Auto (Bld) [#/Vol]Ordere d By: Esequiel Harris on 01-11-2024 RBC (Bld) [#/Vol] 4.29 10*6/uL 4.2-5.[address] [facility] er [facility] Serum or plasma calcium jaylen urement (mass/volume)Ordered By: Esequiel Harris on 01-11-2024 Calcium [Mass/Vol] 9.3 mg/dL 8.5-10.1 [facility] Serum or plasma creatinine m easurement (mass/volume)Ordered By: Esequiel Harris on 01-11-2024 Creatinine [Mass/Vol] 1.03 mg/dL 0.55-1.02 [facility] Comment on above: The validity of the calculated GFR & GFRAA in patients over 70 years has not been determined. Clinical correlation is essential. Serum or plasma urea nitroge n measurement (mass/volume)Ordered By: Esequiel Harris on 01-11-2024 Urea nitrogen [Mass/Vol] 26 mg/dL 7-18 [facility] Squamous epithelial cells de tection in urine sediment by light microscopyOrdered By: Esequiel Harris on 01-11-2024 Epithelial cells.squamous LM Ql (Urine sed) 0-5 SEEN /hpf 5-10 [facility] Thin prep Papanicolaou smear with manual screeningOrdered By: Esequiel Harris on 01-11-2024 Thin prep Papanicolaou smear with manual screening 3.1 g/dL 3.2-5.0 [facility] Thin prep Papanicolaou smear with manual screening 27 U/L 15-37 [facility] Comment on above: Moderate Hemolysis, Result may be falsely increased. Thin prep Papanicolaou smear with manual screening 6 5-15 [facility] Urine blood detectionOrdered By: Esequiel Harris on 01-11-2024 RBC Ql (U) 25 /ul Negative [facility] Urine clarityOrdered By: Esequiel Harris on 01-11-2024 Clarity (U) Clear Clear [facility] Urine color determinationOrd ered By: Esequiel Harris on 01-11-2024 Color (U) Yellow Yellow [facility] Urine glucose detectionOrder ed By: Esequiel Harris on 01-11-2024 Glucose Ql (U) 1000 mg/dl Normal [facility] Urine leukocyte esterase det ection by dipstickOrdered By: Esequiel Harris on 01-11-2024 Leukocyte esterase Test strip Ql (U) 100 /ul Negative [facility] Urine pHOrdered By: Esequiel cleaning on 01-11-2024 pH (U) 6.0 [pH] 5.0 - 8.0 [facility] Urine sediment bacteria coun t by microscopy (number/high power field)Ordered By: Esequiel Harris on 01-11-2024 Bacteria LM.HPF (Urine sed) [#/Area] 2 /[HPF] None Seen [facility] Urine specific gravity measu rementOrdered By: Esequiel Harris on 01-11-2024 Specific gravity (U) [Rel density] 1.015 1.002-1.03 0 [facility] Urine urobilinogen measureme ntOrdered By: Esequiel Harris on 01-11-2024 Urobilinogen Ql (U) Normal mg/dl Normal [facility] Laboratory - Hematology and Cell countson 12-28-2023 HbA1c (Bld) [Mass fraction] 8.2 % [facility] - Hematology and Cell countson 09-28-2023 HbA1c (Bld) [Mass fraction] 8.1 % 4.2-6.3 [facility] - Chemistry and C hemistry - challengeOrdered By: Delfina Velasquez on 09-12-2023 Free T4 [Mass/Vol] 0.79 ng/dL 0.76-1.46 [facility] No Panel InformationOrdered By: Delfina Velasquez on 09-12-2023 Thyroid Stimulating Hormone (TSH) 5.11 uIU/mL 0.358-3.74 [facility] Culture, urineOrdered By: Marin Jeffers on 08-03-2023 Bacteria identified Cx Nom (U) Positive [facility] Bilirubin Test strip Ql (U)O rdered By: Shena Jeffers on 08-02-2023 Bilirubin Ql (U) Negative Negative [facility] Culture, urineOrdered By: Marin Jeffers on 08-02-2023 Bacteria identified Cx Nom (U) Positive [facility] Ketones Test strip Ql (U)Ord ered By: Shena Jeffers on 08-02-2023 Ketones Ql (U) Negative Negative [facility] Nitrite Test strip Ql (U)Ord ered By: Shena Jeffers on 08-02-2023 Nitrite Ql (U) Negative Negative [facility] Protein Test strip Ql (U)Ord ered By: Shena Jeffers on 08-02-2023 Protein Ql (U) Negative Negative [facility] Urine blood detectionOrdered By: Shena Jeffers on 08-02-2023 RBC Ql (U) Negative Negative [facility] Urine clarityOrdered By: Shara Jeffers on 08-02-2023 Clarity (U) Clear Clear [facility] Urine color determinationOrd ered By: Shena Jeffers on 08-02-2023 Color (U) Yellow Yellow [facility] Urine glucose detectionOrder ed By: Shena Jeffers on 08-02-2023 Glucose Ql (U) 1000 mg/dl Normal [facility] Urine leukocyte esterase det ection by dipstickOrdered By: Shena Jeffers on 08-02-2023 Leukocyte esterase Test strip Ql (U) Negative Negative [facility] Urine pHOrdered By: Shena Jeffers on 08-02-2023 pH (U) 7.0 [pH] 5.0 - 8.0 [facility] Urine specific gravity measu rementOrdered By: Shena Jeffers on 08-02-2023 Specific gravity (U) [Rel density] 1.010 1.002-1.03 0 [facility] Urobilinogen Auto test strip Ql (U)Ordered By: Shena Jeffers on 08-02-2023 Urobilinogen Ql (U) Normal mg/dl Normal [facility] Absolute lymphocyte countOrd ered By: Meme Potter on 07-20-2023 Lymphocytes Auto (Unsp spec) [#/Vol] 1.91 10*3/uL 0.83-4.51 [facility] Basophil percentageOrdered B y: Meme Kaiseram on 07-20-2023 Basophil percentage 3.3 mg/dL 2.5-4.9 [facility] Basophils/100 WBC (Bld) 1.2 % 0-1 [facility] Chloride [Moles/Vol] 103 mmol/L 98-107 [facility] Eosinophils/100 WBC (Bld) 1.5 % 0-5 [facility] Glucose [Mass/Vol] 215 mg/dL 74-106 [facility] Comment on above: Glucose result great er than or equal to 200 mg/dLsuggests DIABETES MELLITUS per A.D.A. criteria. Neutrophils (Bld) [#/Vol] 7.2 10*3/uL 2.0-7.7 [facility] Neutrophils/100 WBC (Bld) 70.4 % 47-70 [facility] Potassium [Moles/Vol] 4.8 mmol/L 3.5-5.1 [facility] Sodium [Moles/Vol] 139 mmol/L 136-145 [facility] WBC (Bld) [#/Vol] 10.3 10*3/uL 4.4-11.0 [facility] Blood erythrocytes count (nu mber/volume)Ordered By: Meme Potter on 07-20-2023 RBC (Bld) [#/Vol] 4.60 10*6/uL 4.2-5.4 [facility] Blood hemoglobin measurement (mass/volume)Ordered By: Meme Potter on 07-20-2023 Hemoglobin (Bld) [Mass/Vol] 11.7 g/dL 12.0-15.0 [facility] Blood lymphocytes/100 leukoc ytesOrdered By: Meme Potter on 07-20-2023 Lymphocytes/100 WBC (Bld) 18.6 % 19-41 [facility] Blood monocytes/100 leukocyt esOrdered By: Meme Potter on 07-20-2023 Monocytes/100 WBC (Bld) 7.9 % 0-10 [facility] Blood platelet mean volumeOr dered By: Meme Potter on 07-20-2023 Platelet mean volume (Bld) [Entitic vol] 11.5 fL 6.2-12.0 [facility] Culture, urineOrdered By: Letty Potter on 07-20-2023 Bacteria identified Cx Nom (U) Escherichia coli [facility] Bacteria identified Cx Nom (U) Escherichia coli [facility] Determination of erythrocyte mean corpuscular volume (MCV)Ordered By: Meme Potter on 07-20-2023 MCV (RBC) [Entitic vol] 84.6 fL 81-99 [facility] Hematocrit Auto (Bld) [Volum e fraction]Ordered By: Meme Potter on 07-20-2023 Hematocrit (Bld) [Volume fraction] 38.9 % 37-47 [facility] - Chemistry and C hemistry - challengeOrdered By: Meme Potter on 07-20-2023 CO2 [Moles/Vol] 32.0 mmol/L 21.0-32.0 [facility] Urea nitrogen/Creatinine [Mass ratio] 17.9 mg/mg 10-20 [facility] - Hematology and Cell countsOrdered By: Meme Potter on 07-20-2023 Erythrocyte distribution width (RBC) [Entitic vol] 50.2 fL 35.1-43.9 [facility] Erythrocyte distribution width (RBC) [Ratio] 16.2 % 11.6-14.6 [facility] Immature granulocytes/100 WBC (Bld) 0.400 % 0.0-0.9 [facility] Comment on above: IG% - Immature Granu locytes (promyelocytes, myelocytes and metamyelocytes) > 1% indicates that a LEFT SHIFT is Present. MCH (RBC) [Entitic mass] 25.4 pg 27.0-32.0 [facility] Nucleated RBC/100 WBC (Bld) [Ratio] 0 % 0-5 [facility] MCHC Auto (RBC) [Mass/Vol]Or dered By: Meme Potter on 07-20-2023 MCHC (RBC) [Mass/Vol] 30.1 g/dL 32-36 [facility] No Panel InformationOrdered By: Meme Potter on 07-20-2023 Estimated GFR (MDRD) Amer 43 mL/min >60 [facility] Comment on above: GFR Calc Estimated GFR (MDRD) Non-Af Amer 35 mL/min >60 [facility] Comment on above: Non- GFR Calc Platelets bldOrdered By: Terell Potter on 07-20-2023 Platelets (Bld) [#/Vol] 500 10*3/uL 150-450 [facility] Serum or plasma albumin jaylen urement (mass/volume)Ordered By: Meme Potter on 07-20-2023 Albumin [Mass/Vol] 3.1 g/dL 3.2-5.0 [facility] Serum or plasma calcium jaylen urement (mass/volume)Ordered By: Meme Potter on 07-20-2023 Calcium [Mass/Vol] 8.8 mg/dL 8.5-10.1 [facility] Serum or plasma creatinine m easurement (mass/volume)Ordered By: Meme Potter on 07-20-2023 Creatinine [Mass/Vol] 1.51 mg/dL 0.55-1.02 [facility] Comment on above: The validity of the calculated GFR & GFRAA in patients over 70 years has not been determined. Clinical correlation is essential. Serum or plasma urea nitroge n measurement (mass/volume)Ordered By: Meme Potter on 07-20-2023 Urea nitrogen [Mass/Vol] 27 mg/dL 7-18 [facility] Urinalysis, Office ([id number])Or dered By: Patti Mckeon on 07-20-2023 Bilirubin Ql (U) Negative Normal [facility] Work Phone: Glucose Test strip (U) [Mass/Vol] Small Normal [facility]; [facility] Work Phone: Hemoglobin Ql (U) + Abnormal [facility]; [facility] Work Phone: Ketones Ql (U) Negative Normal [facility]; [facility] Work Phone: Leukocyte esterase Test strip Ql (U) Large Normal [facility]; [facility] Work Phone: Nitrite Ql (U) Negative Normal [facility]; [facility] Work Phone: pH (U) 7.0 [pH] Normal [facility]; [facility] Work Phone: Protein Ql (U) + Abnormal [facility] Work Phone: Specific gravity (U) [Rel density] 1.015 1 Normal [facility]; [facility] Work Phone: Urobilinogen (24H U) [Mass/Time] Normal Normal [facility]; [facility] Work Phone: Absolute lymphocyte countOrd ered By: Hosea Smith on 07-01-2023 Lymphocytes Auto (Unsp spec) [#/Vol] 1.58 10*3/uL 0.83-4.51 [facility] Basophil percentageOrdered B y: Hosea Smith on 07-01-2023 Basophils/100 WBC (Bld) 0.6 % 0-1 [facility] Chloride [Moles/Vol] 109 mmol/L 98-107 [facility] Eosinophils/100 WBC (Bld) 0.3 % 0-5 [facility] Glucose [Mass/Vol] 220 mg/dL 74-106 [facility] Comment on above: Glucose result great er than or equal to 200 mg/dLsuggests DIABETES MELLITUS per A.D.A. criteria. Neutrophils (Bld) [#/Vol] 8.4 10*3/uL 2.0-7.7 [facility] Neutrophils/100 WBC (Bld) 71.2 % 47-70 [facility] Potassium [Moles/Vol] 3.9 mmol/L 3.5-5.1 [facility] Sodium [Moles/Vol] 138 mmol/L 136-145 [facility] WBC (Bld) [#/Vol] 11.7 10*3/uL 4.4-11.0 [facility] Blood erythrocytes count (nu mber/volume)Ordered By: Hosea Smith on 07-01-2023 RBC (Bld) [#/Vol] 3.72 10*6/uL 4.2-5.4 [facility] Blood hemoglobin measurement (mass/volume)Ordered By: Hosea Smith on 07-01-2023 Hemoglobin (Bld) [Mass/Vol] 9.8 g/dL 12.0-15.0 [facility] Blood lymphocytes/100 leukoc ytesOrdered By: Hosea Smith on 07-01-2023 Lymphocytes/100 WBC (Bld) 13.5 % 19-41 [facility] Blood manual differential co mment interpretation (narrative result)Ordered By: Hosea Smith on 07-01-2023 Manual differential comment Duglas (Bld) [Interp] SCANNED [facility] Comment on above: MONOCYTOSIS PRESENT Blood monocytes/100 leukocyt esOrdered By: Hosea Smith on 07-01-2023 Monocytes/100 WBC (Bld) 13.9 % 0-10 [facility] Blood platelet mean volumeOr dered By: Hosea Smith on 07-01-2023 Platelet mean volume (Bld) [Entitic vol] 10.5 fL 6.2-12.0 [facility] Determination of erythrocyte mean corpuscular volume (MCV)Ordered By: Hosea Smith on 07-01-2023 MCV (RBC) [Entitic vol] 83.3 fL 81-99 [facility] Glucose Glucometer (BldC) [M ass/Vol]Ordered By: Shanita Lagos on 07-01-2023 Glucose [Mass/Vol] 211 mg/dL 74-106 [facility] Comment on above: MANAGEMENT OF PATIEN T CARE PER NURSING PROTOCOL Hematocrit Auto (Bld) [Volum e fraction]Ordered By: Hosea Smith on 07-01-2023 Hematocrit (Bld) [Volume fraction] 31.0 % 37-47 [facility] - Chemistry and C hemistry - challengeOrdered By: Hosea Smith on 07-01-2023 CO2 [Moles/Vol] 24.0 mmol/L 21.0-32.0 [facility] Urea nitrogen/Creatinine [Mass ratio] 27.2 mg/mg 10-20 [facility] - Hematology and Cell countsOrdered By: Hosea Smith on 07-01-2023 Erythrocyte distribution width (RBC) [Entitic vol] 48.3 fL 35.1-43.9 [facility] Erythrocyte distribution width (RBC) [Ratio] 15.9 % 11.6-14.6 [facility] Immature granulocytes/100 WBC (Bld) 0.500 % 0.0-0.9 [facility] Comment on above: IG% - Immature Granu locytes (promyelocytes, myelocytes and metamyelocytes) > 1% indicates that a LEFT SHIFT is Present. MCH (RBC) [Entitic mass] 26.3 pg 27.0-32.0 [facility] Nucleated RBC/100 WBC (Bld) [Ratio] 0 % 0-5 [facility] MCHC Auto (RBC) [Mass/Vol]Or dered By: Hosea Smith on 07-01-2023 MCHC (RBC) [Mass/Vol] 31.6 g/dL 32-36 [facility] No Panel InformationOrdered By: Hosea Smith on 07-01-2023 Estimated Creatinine Clearance Calc 46.34 ml/min [facility] Estimated GFR (MDRD) Amer 83 mL/min >60 [facility] Comment on above: GFR Calc Estimated GFR (MDRD) Non-Af Amer 69 mL/min >60 [facility] Comment on above: Non- GFR Calc Platelets bldOrdered By: Linus Smith on 07-01-2023 Platelets (Bld) [#/Vol] 290 10*3/uL 150-450 [facility] Review by pathologistOrdered By: Hosea Smith on 07-01-2023 Pathologist review Duglas (Unsp spec) [Interp] Diana madrid [facility] Pathologist review Duglas (Unsp spec) [Interp] Reviewed [facility] Comment on above: Previous reported re sult: Diana madrid Edited by: RGOLEILA on 07/04/23:1253Neutrophilic leukocytosis.Normocytic anemia.Clinical correlation necessary.Arun Kilgore M.D. 07/04/23 AMENDED REPORT 07/04/23 1253 PATH REV previously reported as: Diana madrid Serum or plasma calcium jaylen urement (mass/volume)Ordered By: Hosea Smith on 07-01-2023 Calcium [Mass/Vol] 8.0 mg/dL 8.5-10.1 [facility] Serum or plasma creatinine m easurement (mass/volume)Ordered By: Hosea Smith on 07-01-2023 Creatinine [Mass/Vol] 0.85 mg/dL 0.55-1.02 [facility] Comment on above: The validity of the calculated GFR & GFRAA in patients over 70 years has not been determined. Clinical correlation is essential. Serum or plasma urea nitroge n measurement (mass/volume)Ordered By: Hosea Smith on 07-01-2023 Urea nitrogen [Mass/Vol] 23 mg/dL 7-18 [facility] Thin prep Papanicolaou smear with manual screeningOrdered By: Hosea Smith on 07-01-2023 Thin prep Papanicolaou smear with manual screening 5 5-15 [facility] Basophil percentageOrdered B y: Roxanne White on 06-30-2023 Bilirubin [Mass/Vol] 0.50 mg/dL 0.20-1.00 [facility] Comment on above: For patients on eltr ombopag therapy, use of Dimension Kirksey TBIL is not recommended. Protein [Mass/Vol] 6.9 g/dL 6.4-8.2 [facility] - Chemistry and C hemistry - challengeOrdered By: Roxanne Saxena on 06-30-2023 ALP [Catalytic activity/Vol] 95 U/L 45-117 [facility] ALT [Catalytic activity/Vol] 14 U/L 13-56 [facility] Globulin (S) [Mass/Vol] 4.3 g/dL 2.2-4.2 [facility] Serum or plasma albumin jaylen urement (mass/volume)Ordered By: Roxanne Saxena on 06-30-2023 Albumin [Mass/Vol] 2.6 g/dL 3.2-5.0 [facility] Serum or plasma albumin/glob ulin mass ratioOrdered By: [facility] on 06-30-2023 Albumin/Globulin [Mass ratio] 0.6 {ratio} 0.9-2.4 [facility] Thin prep Papanicolaou smear with manual screeningOrdered By: Roxanne Saxena on 06-30-2023 Thin prep Papanicolaou smear with manual screening 12 U/L 15-37 [facility] Absolute lymphocyte countOrd ered By: Lb Serna on 06-29-2023 Lymphocytes Auto (Unsp spec) [#/Vol] 1.08 10*3/uL 0.83-4.51 [facility] Basophil percentageOrdered B y: Lb Serna on 06-29-2023 Basophil percentage 5-10 SEEN /hpf 0-5 [facility] Basophils/100 WBC (Bld) 0.7 % 0-1 [facility] Bilirubin [Mass/Vol] 0.50 mg/dL 0.20-1.00 [facility] Comment on above: For patients on eltr ombopag therapy, use of Dimension [place] TBIL is not recommended. Chloride [Moles/Vol] 99 mmol/L 98-107 [facility] Eosinophils/100 WBC (Bld) 0.1 % 0-5 [facility] Glucose [Mass/Vol] 312 mg/dL 74-106 [facility] Comment on above: Glucose result great er than or equal to 200 mg/dLsuggests DIABETES MELLITUS per A.D.A. criteria. Lactate [Moles/Vol] 1.1 mmol/L 0.4-2.0 [facility] Neutrophils (Bld) [#/Vol] 8.9 10*3/uL 2.0-7.7 [facility] Neutrophils/100 WBC (Bld) 79.6 % 47-70 [facility] Potassium [Moles/Vol] 4.2 mmol/L 3.5-5.1 [facility] Protein [Mass/Vol] 7.6 g/dL 6.4-8.2 [facility] Sodium [Moles/Vol] 133 mmol/L 136-145 [facility] WBC (Bld) [#/Vol] 11.2 10*3/uL 4.4-11.0 [facility] Blood erythrocytes count (nu mber/volume)Ordered By: Lb Serna on 06-29-2023 RBC (Bld) [#/Vol] 4.40 10*6/uL 4.2-5.4 [facility] Blood hemoglobin measurement (mass/volume)Ordered By: Lb Serna on 06-29-2023 Hemoglobin (Bld) [Mass/Vol] 11.3 g/dL 12.0-15.0 [facility] Blood lymphocytes/100 leukoc ytesOrdered By: Lb Serna on 06-29-2023 Lymphocytes/100 WBC (Bld) 9.7 % 19-41 [facility] Blood monocytes/100 leukocyt esOrdered By: Lb Serna on 06-29-2023 Monocytes/100 WBC (Bld) 9.5 % 0-10 [facility] Blood platelet mean volumeOr dered By: Lb Serna on 06-29-2023 Platelet mean volume (Bld) [Entitic vol] 11.4 fL 6.2-12.0 [facility] COVID-19 virus antigen assay Ordered By: Lb Serna on 06-29-2023 SARS-CoV-2 (COVID-19) Ag IA.rapid Ql (Resp) [facility] SARS-CoV-2 (COVID-19) Ag IA.rapid Ql (Resp) [facility] Culture, urineOrdered By: Denis Salazar on 06-29-2023 Bacteria identified Cx Nom (U) 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 [facility] Bacteria identified Cx Nom (U) 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 [facility] Determination of erythrocyte mean corpuscular volume (MCV)Ordered By: Lb Serna on 06-29-2023 MCV (RBC) [Entitic vol] 83.4 fL 81-99 [facility] Hematocrit Auto (Bld) [Volum e fraction]Ordered By: Lb Serna on 06-29-2023 Hematocrit (Bld) [Volume fraction] 36.7 % 37-47 [facility] Ketones Test strip Ql (U)Ord ered By: Lb Serna on 06-29-2023 Ketones Ql (U) 50 mg/dl Negative [facility] Laboratory - Chemistry and C hemistry - challengeOrdered By: Lb Serna on 06-29-2023 ALP [Catalytic activity/Vol] 107 U/L 45-117 [facility] ALT [Catalytic activity/Vol] 16 U/L 13-56 [facility] CO2 [Moles/Vol] 26.0 mmol/L 21.0-32.0 [facility] Globulin (S) [Mass/Vol] 4.5 g/dL 2.2-4.2 [facility] Magnesium [Mass/Vol] 2.4 mg/dL 1.6-2.6 [facility] Urea nitrogen/Creatinine [Mass ratio] 19.4 mg/mg 10-20 [facility] Laboratory - Hematology and Cell countsOrdered By: Lb Serna on 06-29-2023 Erythrocyte distribution width (RBC) [Entitic vol] 47.3 fL 35.1-43.9 [facility] Erythrocyte distribution width (RBC) [Ratio] 15.5 % 11.6-14.6 [facility] Immature granulocytes/100 WBC (Bld) 0.400 % 0.0-0.9 [facility] Comment on above: IG% - Immature Granu locytes (promyelocytes, myelocytes and metamyelocytes) > 1% indicates that a LEFT SHIFT is Present. MCH (RBC) [Entitic mass] 25.7 pg 27.0-32.0 [facility] Nucleated RBC/100 WBC (Bld) [Ratio] 0 % 0-5 [facility] Laboratory - Microbiology an d Antimicrobial susceptibilityOrdered By: Lb Serna on 06-29-2023 Bacteria identified Cx Nom (Bld) No growth in 5 days. [facility] Bacteria identified Cx Nom (Bld) No growth in 5 days. [facility] MCHC Auto (RBC) [Mass/Vol]Or dered By: Lb Serna on 06-29-2023 MCHC (RBC) [Mass/Vol] 30.8 g/dL 32-36 [facility] Mucus LM Ql (Urine sed)Order ed By: Lb Serna on 06-29-2023 Mucus Ql (Urine sed) 0 SEEN /hpf [facility] Nitrite Test strip Ql (U)Ord ered By: Lb Serna on 06-29-2023 Nitrite Ql (U) Positive Negative [facility] No Panel InformationOrdered By: Lb Serna on 06-29-2023 Estimated GFR (MDRD) Amer 51 mL/min >60 [facility] Comment on above: GFR Calc Estimated GFR (MDRD) Non-Af Amer 42 mL/min >60 [facility] Comment on above: Non- GFR Calc Platelets bldOrdered By: Lula Serna on 06-29-2023 Platelets (Bld) [#/Vol] 357 10*3/uL 150-450 [facility] Protein Test strip Ql (U)Ord ered By: Lb Serna on 06-29-2023 Protein Ql (U) 30 mg/dl Negative [facility] Serum or plasma acetone jaylen urement (mass/volume)Ordered By: Roxanne Saxena on 06-29-2023 Acetone [Mass/Vol] SMALL NEG [facility] Serum or plasma albumin jaylen urement (mass/volume)Ordered By: Lb Serna on 06-29-2023 Albumin [Mass/Vol] 3.1 g/dL 3.2-5.0 [facility] Serum or plasma albumin/glob ulin mass ratioOrdered By: Lb Serna on 06-29-2023 Albumin/Globulin [Mass ratio] 0.7 {ratio} 0.9-2.4 [facility] Serum or plasma calcium jaylen urement (mass/volume)Ordered By: Lb Serna on 06-29-2023 Calcium [Mass/Vol] 8.9 mg/dL 8.5-10.1 [facility] Serum or plasma creatinine m easurement (mass/volume)Ordered By: Lb Serna on 06-29-2023 Creatinine [Mass/Vol] 1.29 mg/dL 0.55-1.02 [facility] Comment on above: The validity of the calculated GFR & GFRAA in patients over 70 years has not been determined. Clinical correlation is essential. Serum or plasma urea nitroge n measurement (mass/volume)Ordered By: Lb Serna on 06-29-2023 Urea nitrogen [Mass/Vol] 25 mg/dL 7-18 [facility] Squamous epithelial cells de tection in urine sediment by light microscopyOrdered By: Lb Serna on 06-29-2023 Epithelial cells.squamous LM Ql (Urine sed) 0 SEEN /hpf 5-10 [facility] Thin prep Papanicolaou smear with manual screeningOrdered By: Lb Serna on 06-29-2023 Thin prep Papanicolaou smear with manual screening 10 U/L 15-37 [facility] Thin prep Papanicolaou smear with manual screening 8 5-15 [facility] Urinalysis, Complete W/ Micr oscopic Examination with reflex to urine culture, routine (42994)Ordered By: Turner Off on 06-29-2023 Appearance (U) Clear Normal [facility] Work Phone: Comment on above: PERFORMED BY: [employer] [place] [id number] Glucose Ql (U) 3+ Abnormal [facility]; [facility] Work Phone: Comment on above: PERFORMED BY: [employer] [place] [id number] Ketones Ql (U) 1+ Abnormal [facility]; [facility] Work Phone: Comment on above: PERFORMED BY: [employer] [place] [id number] Protein Ql (U) Trace Normal [facility]; [facility] Work Phone: Comment on above: PERFORMED BY: [employer] [place] [id number] Specific gravity (U) [Rel density] 1.021 1 Normal 1.005-1.03 0 [facility] Work Phone: Comment on above: PERFORMED BY: [employer] [place] [id number] Urinalysis, Complete W/ Microscopic Examination with reflex to urine culture, routine (32448) 2+ Abnormal [facility]; [facility] Work Phone: Comment on above: PERFORMED BY: [place] [id number] Urinalysis, Complete W/ Microscopic Examination with reflex to urine culture, routine (82514) 1+ Abnormal [facility]; [facility] Work Phone: Comment on above: PERFORMED BY: [place] [id number] Urinalysis, Complete W/ Microscopic Examination with reflex to urine culture, routine (02506) 0.2 mg/dL Normal 0.2-1.0 [facility]; [facility] Work Phone: Comment on above: PERFORMED BY: [employer] [place] [id number] Urinalysis, Complete W/ Microscopic Examination with reflex to urine culture, routine (06877) Negative Normal [facility]; [facility] Work Phone: Comment on above: PERFORMED BY: [place] [id number] Urinalysis, Complete W/ Microscopic Examination with reflex to urine culture, routine (59162) See below: Normal [facility]; [facility] Work Phone: Comment on above: Microscopic was yoanna cated and was performed. PERFORMED BY: [employer] [id number] Urinalysis, Complete W/ Microscopic Examination with reflex to urine culture, routine (40006) FLEX Normal [facility]; [facility] Work Phone: Comment on above: This specimen has re flexed to a Urine Culture. PERFORMED BY: [employer] [place] [id number] Urinalysis, Office (78584)Or dered By: Patti Mckeon on 06-29-2023 Bilirubin Ql (U) Negative Negative Comprehe [facility]; [facility] Work Phone: Comment on above: PERFORMED BY: [employer] [place] [id number] pH (U) 6.0 [pH] 5.0 - 8.0 [facility] Work Phone: Comment on above: PERFORMED BY: [facility] [id number] Glucose Test strip (U) [Mass/Vol] Large Normal [facility]; [facility] Work Phone: Hemoglobin Ql (U) ++ Abnormal Compreh [facility]; [facility] Work Phone: Ketones Ql (U) Small Normal [facility]; [facility] Work Phone: Leukocyte esterase Test strip Ql (U) Small Normal [facility]; [facility] Work Phone: Nitrite Ql (U) + Abnormal [facility]; [facility] Work Phone: Protein Ql (U) Negative Normal [facility]; [facility] Work Phone: Specific gravity (U) [Rel density] 1.015 1 Normal [facility]; [facility] Work Phone: Urobilinogen (24H U) [Mass/Time] Normal Normal [facility]; [facility] Work Phone: Urine blood detectionOrdered By: Lb Serna on 06-29-2023 RBC Ql (U) 25 /ul Negative [facility] RBC Ql (U) 0-5 SEEN /hpf 0-5 [facility] Urine clarityOrdered By: Lula Serna on 06-29-2023 Clarity (U) Clear Clear [facility] Urine color determinationOrd ered By: Lb Serna on 06-29-2023 Color (U) Yellow Yellow [facility] Comment on above: PERFORMED BY: [employer] [id number] Urine glucose detectionOrder ed By: Lb Serna on 06-29-2023 Glucose Ql (U) 1000 mg/dl Normal [facility] Urine leukocyte esterase det ection by dipstickOrdered By: Lb Serna on 06-29-2023 Leukocyte esterase Test strip Ql (U) 25 /ul Negative [facility] Urine sediment bacteria coun t by microscopy (number/high power field)Ordered By: Lb Serna on 06-29-2023 Bacteria LM.HPF (Urine sed) [#/Area] RARE /hpf None Seen [facility] Urine specific gravity measu rementOrdered By: Lb Serna on 06-29-2023 Specific gravity (U) [Rel density] 1.010 1.002-1.03 0 [facility] Urobilinogen Auto test strip Ql (U)Ordered By: Lb Serna on 06-29-2023 Urobilinogen Ql (U) Normal mg/dl Normal [facility] Laboratory - Hematology and Cell countson 06-15-2023 HbA1c (Bld) [Mass fraction] 8.1 % 4.2-6.3 [facility] CALCIFIDIOL (64837) VIT D 25 Ordered By: Turner Off on 06-10-2023 25-hydroxyvitamin D [Mass/Vol] 62.7 ng/mL Normal 30.0-100.0 [facility]; [facility] Work Phone: Comment on above: Vitamin D deficiency has been defined by the [place] ofMedicine and an Endocrine Society practice guideline as alevel of serum 25-OH vitamin D less than 20 ng/mL (1,2).The Endocrine Society went on to further define vitamin Dinsufficiency as a level between 21 and 29 ng/mL (2).1. IOM ([place] of Medicine). 2010. Dietary reference intakes for calcium and D. [place]: The National Academies Press.2. Justin MF, Oli DURON, Gabe WAITE, et al. Evaluation, treatment, and prevention of vitamin D deficiency: an Endocrine Society clinical practice guideline. JCEM. 2010; 96(7):1911-30. PATIENT WAS FASTINGP ERFORMED BY: [facility] CenterBzemfk6201 [facility] [id number] CBC W/AUTO DIFF WBC (74349)O rdered By: Turner Off on 06-10-2023 Basophils (Bld) [#/Vol] 0.1 10*3/uL Normal 0.0-0.2 [facility]; [facility] Work Phone: Comment on above: PATIENT WAS FASTINGP ERFORMED BY: [facility] [id number] Basophils/100 WBC (Bld) 1 % Normal [facility]; [facility] Work Phone: Comment on above: PATIENT WAS FASTINGP ERFORMED BY: [facility] [id number] Eosinophils (Bld) [#/Vol] 0.2 10*3/uL Normal 0.0-0.4 [facility]; [facility] Work Phone: Comment on above: PATIENT WAS FASTINGP ERFORMED BY: [facility] [id number] Eosinophils/100 WBC (Bld) 2 % Normal [facility]; [facility] Work Phone: Comment on above: PATIENT WAS FASTINGP ERFORMED BY: [facility] [id number] Erythrocyte distribution width (RBC) [Ratio] 14.2 % Normal 11.7-15.4 [facility]; [facility] Work Phone: Comment on above: PATIENT WAS FASTINGP ERFORMED BY: [facility] [id number] Hematocrit (Bld) [Volume fraction] 37.7 % Normal 34.0-46.6 [facility]; [facility] Work Phone: Comment on above: PATIENT WAS FASTINGP ERFORMED BY: [facility] [id number] Hemoglobin (Bld) [Mass/Vol] 11.6 g/dL Normal 11.1-15.9 [facility]; [facility] Work Phone: Comment on above: PATIENT WAS FASTINGP ERFORMED BY: [facility] Mumycg9956 [address] Roadblin [place] [id number] Immature granulocytes (Bld) [#/Vol] 0.0 10*3/uL Normal 0.0-0.1 [facility]; [facility] Work Phone: Comment on above: PATIENT WAS FASTINGP ERFORMED BY: [facility] [facility] Center[facility] [place] [id number] Immature granulocytes/100 WBC (Bld) 0 % Normal [facility]; [facility] Work Phone: Comment on above: PATIENT WAS FASTINGP ERFORMED BY: Lab[facility] [place] 9[address] [facility] [place] [id number] Lymphocytes (Bld) [#/Vol] 1.8 10*3/uL Normal 0.7-3.1 [facility]; [facility] Work Phone: Comment on above: PATIENT WAS FASTINGP ERFORMED BY: [facility] [facility] [place] [id number] Lymphocytes/100 WBC (Bld) 20 % Normal [facility]; [facility] Work Phone: Comment on above: PATIENT WAS FASTINGP ERFORMED BY: [facility]6370 [facility] [id number] MCH (RBC) [Entitic mass] 25.6 pg Abnormal 26.6-33.0 [facility]; [facility] Work Phone: Comment on above: PATIENT WAS FASTINGP ERFORMED BY: [facility] [facility] [place] [id number] MCHC (RBC) [Mass/Vol] 30.8 g/dL Abnormal 31.5-35.7 [facility] prehensive Internal Medicine; [facility] Work Phone: Comment on above: PATIENT WAS FASTINGP ERFORMED BY: [facility] [facility] Center[facility] [place] [id number] MCV (RBC) [Entitic vol] 83 fL Normal 79-97 [facility]; [facility] Work Phone: Comment on above: PATIENT WAS FASTINGP ERFORMED BY: CB [facility] Blizgr1442 [address]Dublin [place] [id number] Monocytes (Bld) [#/Vol] 0.7 10*3/uL Normal 0.1-0.9 [facility]; [facility] Work Phone: Comment on above: PATIENT WAS FASTINGP ERFORMED BY: CB [facility] Kwqnsb4145 [address]Dublin [place] [id number] Monocytes/100 WBC (Bld) 8 % Normal [facility]; [facility] Work Phone: Comment on above: PATIENT WAS FASTINGP ERFORMED BY: CB [facility] Nigvtt4734 [address] RoadDublin [place] [id number] Neutrophils (Bld) [#/Vol] 6.2 10*3/uL Normal 1.4-7.0 [facility]; [facility] Work Phone: Comment on above: PATIENT WAS FASTINGP ERFORMED BY: CB [facility] Limpkx4226 [address] RoadDublin [place] [id number] Neutrophils/100 WBC (Bld) 69 % Normal [facility]; [facility] Work Phone: Comment on above: PATIENT WAS FASTINGP ERFORMED BY: CB [facility] Spksom7827 [address]Dublin [place] [id number] Platelets (Bld) [#/Vol] 384 10*3/uL Normal 150-450 [facility]; [facility] Work Phone: Comment on above: PATIENT WAS FASTINGP ERFORMED BY: CB [facility] Pxsqcp2553 [address]Dublin [place] [id number] RBC (Bld) [#/Vol] 4.53 10*6/uL Normal 3.77-5.28 [facility]; [facility] Work Phone: Comment on above: PATIENT WAS FASTINGP ERFORMED BY: CB [facility] Spwrvc6[address] [place] [id number] WBC (Bld) [#/Vol] 9.1 10*3/uL Normal 3.4-10.8 [facility]; [facility] Work Phone: Comment on above: PATIENT WAS FASTINGP ERFORMED BY: PALOMO Lab[facility] Mfyxzs9[address]bl[address] [place] [id number] METABOLIC PANEL, COMPREHENSI VE ([id number])Ordered By: Turner Off on 06-10-2023 Albumin [Mass/Vol] 3.8 g/dL Normal 3.8-4.8 [facility]; [facility] Work Phone: Comment on above: PATIENT WAS FASTINGP ERFORMED BY: PALOMO Labcogra[facility] Aoupap8800 [address] RoadUnc Health Chathamin [place] [id number] Albumin/Globulin [Mass ratio] 1.4 {ratio} Normal 1.2-2.2 [facility]; [facility] Work Phone: Comment on above: PATIENT WAS FASTINGP ERFORMED BY: PALOMO Ezamairani Dtgujs[address] [facility] [id number] ALP [Catalytic activity/Vol] 85 U/L Normal 44-121 [facility]; [facility] Work Phone: Comment on above: PATIENT WAS FASTINGP ERFORMED BY: PALOMO Labamairani Aujjwk[address] [facility] [id number] ALT [Catalytic activity/Vol] 14 U/L Normal 0-32 [facility]; [facility] Work Phone: Comment on above: PATIENT WAS FASTINGP ERFORMED BY: PALOMO Labamairani Argkxf[address] [facility] [id number] AST [Catalytic activity/Vol] 20 U/L Normal 0-40 [facility]; [facility] Work Phone: Comment on above: PATIENT WAS FASTINGP ERFORMED BY: PALOMO Labcograham Fzrxvu[address] [facility]in [place] [id number] Bilirubin [Mass/Vol] 0.4 mg/dL Normal 0.0-1.2 [facility]; [facility] Work Phone: Comment on above: PATIENT WAS FASTINGP ERFORMED BY: PALOMO [facility] Rhcvfz6991 [address] RoadDublin [place] [id number] Calcium [Mass/Vol] 9.2 mg/dL Normal 8.7-10.3 [facility]; [facility] Work Phone: Comment on above: PATIENT WAS FASTINGP ERFORMED BY: [facility] Jjbgsu5743 [address]Dublin [place] [id number] Chloride [Moles/Vol] 100 mmol/L Normal 96-[address] [facility] rehensive Internal Medicine; [facility] Work Phone: Comment on above: PATIENT WAS FASTINGP ERFORMED BY: [facility] Ydcbal1733 [address]Dublin [place] [id number] CO2 [Moles/Vol] 25 mmol/L Normal 20-29 [facility]; [facility] Work Phone: Comment on above: PATIENT WAS FASTINGP ERFORMED BY: [facility] Mzicpm0260 [address]Dublin [place] [id number] Creatinine [Mass/Vol] 0.97 mg/dL Normal 0.57-1.00 [facility]; [facility] Work Phone: Comment on above: PATIENT WAS FASTINGP ERFORMED BY: [facility] Diboin2379 [address] RoadDublin [place] [id number] GFR/1.73 sq M.predicted among non-blacks MDRD (S/P/Bld) [Vol rate/Area] 59 mL/min/{1.73_m2} Abnormal Comprehens e [facility]; [facility] Work Phone: Comment on above: PATIENT WAS FASTINGP ERFORMED BY: [facility] Yskxuo8910 [address]Dublin [place] [id number] Globulin (S) [Mass/Vol] 2.8 g/dL Normal 1.5-4.5 [facility]; [facility] Work Phone: Comment on above: PATIENT WAS FASTINGP ERFORMED BY: [facility] Tgsjxc8186 [address]Dublin [place] [id number] Glucose [Mass/Vol] 164 mg/dL Abnormal 70-99 [facility]; [facility] Work Phone: Comment on above: PATIENT WAS FASTINGP ERFORMED BY: PALOMO [facility] Pwtpkf4925 [address]Dublin [place] [id number] Potassium [Moles/Vol] 4.2 mmol/L Normal 3.5-5.2 [facility]; [facility] Work Phone: Comment on above: PATIENT WAS FASTINGP ERFORMED BY: CB [facility] Tsdbzz0276 [address]Dublin [place] [id number] Protein [Mass/Vol] 6.6 g/dL Normal 6.0-8.5 [facility]; [facility] Work Phone: Comment on above: PATIENT WAS FASTINGP ERFORMED BY: PALOMO [facility] Gabbou7185 [address]Dublin [place] [id number] Sodium [Moles/Vol] 139 mmol/L Normal 134-144 [facility]; [facility] Work Phone: Comment on above: PATIENT WAS FASTINGP ERFORMED BY: PALOMO [facility] Xyinad6526 [address]Dublin [place] [id number] Urea nitrogen [Mass/Vol] 25 mg/dL Normal 8-27 [facility]; [facility] Work Phone: Comment on above: PATIENT WAS FASTINGP ERFORMED BY: PALOMO [facility] Fwkpqw7863 [address]Dublin [place] [id number] Urea nitrogen/Creatinine [Mass ratio] 26 mg/mg Normal 12-28 [facility]; [facility] Work Phone: Comment on above: PATIENT WAS FASTINGP ERFORMED BY: PALOMO [facility] Xecaex3903 [address]Dublin [place] [id number] MICROALBUMINOrdered By: Syst em Bottle Inspector on 06-10-2023 Albumin DL <= 20 mg/L (U) [Mass/Vol] 6.3 ug/mL Normal [facility]; [facility] Work Phone: Comment on above: PATIENT WAS FASTINGP ERFORMED BY: PALOMO [facility] Keuedt9296 [address] [place] [id number] Albumin/Creatinine (U) [Mass ratio] 16 {mg/g_creat} Normal 0-29 [facility]; [facility] Work Phone: Comment on above: Normal: 0 - 29 Moder ately increased: 30 - 300 Severely increased: >300 PATIENT WAS FASTINGP ERFORMED BY: PALOMO [facility] Xgloqy7812 [address] [place] [id number] Creatinine (U) [Mass/Vol] 38.7 mg/dL Normal [facility]; [facility] Work Phone: Comment on above: PATIENT WAS FASTINGP ERFORMED BY: PALOMO [facility] Kskffc1335 [address]Dublin [place] [id number] TSH ([id number])Ordered By: [email or web address] m Bottle Inspector on 06-10-2023 TSH Qn 0.871 {uIU/mL} Normal 0.450-4.50 0 [facility]; [facility] Work Phone: Comment on above: PATIENT WAS FASTINGP ERFORMED BY: PALOMO [facility] Wrdoxt0622 [address] [place] [id number] URINALYSIS, W/ MICRO ([id number]) Ordered By: Turner Off on 06-10-2023 Appearance (U) Clear Normal Comprehens [facility]; [facility] Work Phone: Comment on above: PATIENT WAS FASTINGP ERFORMED BY: PALOMO [facility] Jxlfri7827 [address]Dublin [place] [id number] Bilirubin Ql (U) Negative Normal Comprehe nsive [facility] Medicine; [facility] Work Phone: Comment on above: PATIENT WAS FASTINGP ERFORMED BY: PALOMO [facility] Hipfsi4223 [address] [place] [id number] Color (U) Yellow Normal [facility]; [facility] Work Phone: Comment on above: PATIENT WAS FASTINGP ERFORMED BY: PALOMO [facility] Xpbqcv3462 [address]Dublin [place] [id number] Glucose Ql (U) 2+ Abnormal Comprehens [facility]; [facility] Work Phone: Comment on above: PATIENT WAS FASTINGP ERFORMED BY: PALOMO Labam[facility]ani JarquinQxfjgn3471 [address]Dublin [place] [id number] Hemoglobin Ql (U) Negative Normal Compreh ensive [facility]; [facility] Work Phone: Comment on above: PATIENT WAS FASTINGP ERFORMED BY: PALOMO Labam[facility] JarquinWhicwq02[address] [place] [id number] Ketones Ql (U) Negative Normal Comprehens [facility]; [facility] Work Phone: Comment on above: PATIENT WAS FASTINGP ERFORMED BY: PALOMO Labamairani JarquinSpfdta32[address] [place] [id number] Leukocyte esterase Test strip Ql (U) Negative Normal [facility]; [facility] Work Phone: Comment on above: PATIENT WAS FASTINGP ERFORMED BY: PALOMO Jarquinlin[address]Dublin [place] [id number] Microscopic observation LM Nom (Urine sed) MICRON Normal [facility]; [facility] Work Phone: Comment on above: Microscopic follows if indicated. PATIENT WAS FASTINGP ERFORMED BY: PALOMO Labamairani JarquinPggowt7[address]Dublin [place] [id number] Microscopic observation LM Nom (Urine sed) See below: Normal [facility]; [facility] Work Phone: Comment on above: Microscopic was yoanna cated and was performed. PATIENT WAS FASTINGP ERFORMED BY: PALOMO [facility] Oprcoc1961 [address]Dublin [place] [id number] Nitrite Ql (U) Negative Normal [facility]; [facility] Work Phone: Comment on above: PATIENT WAS FASTINGP ERFORMED BY: PALOMO [facility] Acpuds[address]Dublin [place] [id number] pH (U) 7.0 [pH] Normal 5.0-7.5 [facility]; [facility] Work Phone: Comment on above: PATIENT WAS FASTINGP ERFORMED BY: PALOMO [facility] [id number]Dublin [place] [id number] Protein Ql (U) Negative Normal [facility]; [facility] Work Phone: Comment on above: PATIENT WAS FASTINGP ERFORMED BY: [facility] [facility] [id number] Specific gravity (U) [Rel density] 1.016 1 Normal 1.005-1.03 0 [facility]; [facility] Work Phone: Comment on above: PATIENT WAS FASTINGP ERFORMED BY: [facility] [facility] [id number] Urobilinogen (U) [Mass/Vol] 0.2 mg/dL Normal 0.2-1.0 [facility]; [facility] Work Phone: Comment on above: PATIENT WAS FASTINGP ERFORMED BY: [facility] [facility] [id number] Basophil percentageOrdered B y: Delifna Velasquez on 03-02-2023 Bilirubin [Mass/Vol] 0.50 mg/dL 0.20-1.00 [facility] Comment on above: For patients on eltr ombopag therapy, use of Dimension Kirksey TBIL is not recommended. Chloride [Moles/Vol] 106 mmol/L 98-107 [facility] Glucose [Mass/Vol] 90 mg/dL 74-106 [facility] Potassium [Moles/Vol] 4.3 mmol/L 3.5-5.1 [facility] Protein [Mass/Vol] 7.2 g/dL 6.4-8.2 [facility] Sodium [Moles/Vol] 139 mmol/L 136-145 [facility] Laboratory - Chemistry and C hemistry - challengeOrdered By: Delfina Velasquez on 03-02-2023 ALP [Catalytic activity/Vol] 102 U/L 45-117 [facility] ALT [Catalytic activity/Vol] 21 U/L 13-56 [facility] CO2 [Moles/Vol] 26.0 mmol/L 21.0-32.0 [facility] Free T4 [Mass/Vol] 1.54 ng/dL 0.76-1.46 [facility] Globulin (S) [Mass/Vol] 4.1 g/dL 2.2-4.2 [facility] Urea nitrogen/Creatinine [Mass ratio] 28.1 mg/mg 10- [facility] No Panel InformationOrdered By: Delfina Velasquez on 03-02-2023 Estimated GFR (MDRD) Amer 59 mL/min >60 [facility] Comment on above: GFR Calc Estimated GFR (MDRD) Non-Af Amer 49 mL/min >60 [facility] Comment on above: Non- GFR Calc Thyroid Stimulating Hormone (TSH) 0.05 uIU/mL 0.358-3.74 [facility] Vitamin D 25-Hydroxy 86.2 ng/mL [facility] Comment on above: Vitamin D 25(OH) Sta tus Range Deficiency <20 ng/mL (50nmol/L) Insufficiency 20 - 30 ng/mL (50 - 75 nmol/L) Sufficiency 30 - 100 ng/mL (75 - 250 nmol/L) Toxicity >100 ng/mL (>250 nmol/L) Serum or plasma albumin jaylen urement (mass/volume)Ordered By: Delfina Velasquez on 03-02-2023 Albumin [Mass/Vol] 3.1 g/dL 3.2-5.0 [facility] Serum or plasma albumin/glob ulin mass ratioOrdered By: Delfina Velasquez on 03-02-2023 Albumin/Globulin [Mass ratio] 0.8 {ratio} 0.9-2.4 [facility] Serum or plasma calcium jaylen urement (mass/volume)Ordered By: Delfina Velasquez on 03-02-2023 Calcium [Mass/Vol] 9.1 mg/dL 8.5-10.1 [facility] Serum or plasma creatinine m easurement (mass/volume)Ordered By: Delfina Velasquez on 03-02-2023 Creatinine [Mass/Vol] 1.14 mg/dL 0.55-1.02 [facility] Comment on above: The validity of the calculated GFR & GFRAA in patients over 70 years has not been determined. Clinical correlation is essential. Serum or plasma urea nitroge n measurement (mass/volume)Ordered By: Delfina Velasquez on 03-02-2023 Urea nitrogen [Mass/Vol] 32 mg/dL 7-18 [facility] Thin prep Papanicolaou smear with manual screeningOrdered By: Delfina Velasquez on 03-02-2023 Thin prep Papanicolaou smear with manual screening 16 U/L 15-37 [facility] Thin prep Papanicolaou smear with manual screening 7 5-15 [facility] Whole blood hemoglobin A1c/t otal hemoglobin ratio (mass fraction)Ordered By: Delfina Velasquez on 03-02-2023 HbA1c (Bld) [Mass fraction] 7.7 % 3.8-5.6 [facility] Comment on above: Normal < 5.7 % Predi abetic 5.7 - 6.4 % Diabetic >or= 6.5 % Please note range changes. Laboratory - Microbiology an d Antimicrobial susceptibilityOrdered By: Dr. Johnston on 11-28-2022 Bacteria identified Cx Nom (Bld) No growth in 5 days. [facility] Absolute lymphocyte countOrd ered By: Dr. Maravilla on 11-26-2022 Lymphocytes Auto (Unsp spec) [#/Vol] 1.63 10*3/uL 0.83-4.51 [facility] Basophil percentageOrdered B y: Dr. Maravilla on 11-26-2022 Basophils/100 WBC (Bld) 0.9 % 0-1 [facility] Chloride [Moles/Vol] 106 mmol/L 98-107 [facility] Eosinophils/100 WBC (Bld) 6.7 % 0-5 [facility] Glucose [Mass/Vol] 115 mg/dL 74-106 [facility] Comment on above: Fasting Glucose resu lt from 100 to 125 mg/dL suggests IMPAIRED HOMEOSTASIS per A.D.A. criteria. Neutrophils (Bld) [#/Vol] 4.1 10*3/uL 2.0-7.7 [facility] Neutrophils/100 WBC (Bld) 58.4 % 47-70 [facility] Potassium [Moles/Vol] 3.8 mmol/L 3.5-5.1 [facility] Sodium [Moles/Vol] 139 mmol/L 136-145 [facility] WBC (Bld) [#/Vol] 7.0 10*3/uL 4.4-11.0 [facility] Blood erythrocytes count (nu mber/volume)Ordered By: Dr. Maravilla on 11-26-2022 RBC (Bld) [#/Vol] 3.53 10*6/uL 4.2-5.4 [facility] Blood hemoglobin measurement (mass/volume)Ordered By: Dr. Maravilla on 11-26-2022 Hemoglobin (Bld) [Mass/Vol] 9.5 g/dL 12.0-15.0 [facility] Blood lymphocytes/100 leukoc ytesOrdered By: Dr. Maravilla on 11-26-2022 Lymphocytes/100 WBC (Bld) 23.2 % 19-41 [facility] Blood manual differential co mment interpretation (narrative result)Ordered By: Dr. Maravilla on 11-26-2022 Manual differential comment Duglas (Bld) [Interp] SCANNED [facility] Blood monocytes/100 leukocyt esOrdered By: Dr. Maravilla on 11-26-2022 Monocytes/100 WBC (Bld) 10.2 % 0-10 [facility] Blood platelet mean volumeOr dered By: Dr. Maravilla on 11-26-2022 Platelet mean volume (Bld) [Entitic vol] 11.4 fL 6.2-12.0 [facility] Determination of erythrocyte mean corpuscular volume (MCV)Ordered By: Dr. Maravilla on 11-26-2022 MCV (RBC) [Entitic vol] 87.0 fL 81-99 [facility] Glucose Glucometer (BldC) [M ass/Vol]Ordered By: Dr. Maravilla on 11-26-2022 Glucose [Mass/Vol] 319 mg/dL 74-106 [facility] Comment on above: MANAGEMENT OF PATIEN T CARE PER NURSING PROTOCOL Hematocrit Auto (Bld) [Volum e fraction]Ordered By: Dr. Maravilla on 11-26-2022 Hematocrit (Bld) [Volume fraction] 30.7 % 37-47 [facility] Hypochromatic red blood cell detectionOrdered By: Dr. Maravilla on 11-26-2022 Hypochromia Ql (Bld) RARE [facility] Laboratory - Chemistry and C hemistry - challengeOrdered By: Dr. Maravilla on 11-26-2022 CO2 [Moles/Vol] 27.0 mmol/L 21.0-32.0 [facility] Urea nitrogen/Creatinine [Mass ratio] 33.3 mg/mg 10-20 [facility] Laboratory - Hematology and Cell countsOrdered By: Dr. Maravilla on 11-26-2022 Erythrocyte distribution width (RBC) [Entitic vol] 48.0 fL 35.1-43.9 [facility] Erythrocyte distribution width (RBC) [Ratio] 15.1 % 11.6-14.6 [facility] Immature granulocytes/100 WBC (Bld) 0.600 % 0.0-0.9 [facility] Comment on above: IG% - Immature Granu locytes (promyelocytes, myelocytes and metamyelocytes) > 1% indicates that a LEFT SHIFT is Present. MCH (RBC) [Entitic mass] 26.9 pg 27.0-32.0 [facility] Nucleated RBC/100 WBC (Bld) [Ratio] 0 % 0-5 [facility] MCHC Auto (RBC) [Mass/Vol]Or dered By: Dr. Maravilla on 11-26-2022 MCHC (RBC) [Mass/Vol] 30.9 g/dL 32-36 [facility] No Panel InformationOrdered By: Dr. Maravilla on 11-26-2022 Atypical Lymphocytes 1+ % [facility] Estimated Creatinine Clearance Calc 39.39 ml/min [facility] Estimated GFR (MDRD) Amer 105 mL/min >60 [facility] Comment on above: GFR Calc Estimated GFR (MDRD) Non-Af Amer 87 mL/min >60 [facility] Comment on above: Non- GFR Calc Platelets bldOrdered By: Dr. Maravilla on 11-26-2022 Platelets (Bld) [#/Vol] 336 10*3/uL 150-450 [facility] Serum or plasma calcium jaylen urement (mass/volume)Ordered By: Dr. Maravilla on 11-26-2022 Calcium [Mass/Vol] 8.9 mg/dL 8.5-10.1 [facility] Serum or plasma creatinine m easurement (mass/volume)Ordered By: Dr. Maravilla on 11-26-2022 Creatinine [Mass/Vol] 0.69 mg/dL 0.55-1.02 [facility] Comment on above: The validity of the calculated GFR & GFRAA in patients over 70 years has not been determined. Clinical correlation is essential. Serum or plasma urea nitroge n measurement (mass/volume)Ordered By: Dr. Maravilla on 11-26-2022 Urea nitrogen [Mass/Vol] 23 mg/dL 7-18 [facility] Thin prep Papanicolaou smear with manual screeningOrdered By: Dr. Maravilla on 11-26-2022 Thin prep Papanicolaou smear with manual screening 6 5-15 [facility] Laboratory - Chemistry and C hemistry - challengeOrdered By: Dr. Maravilla on 11-25-2022 Free T4 [Mass/Vol] 1.45 ng/dL 0.76-1.46 [facility] Laboratory - Microbiology an d Antimicrobial susceptibilityOrdered By: Dr. Johnston on 11-25-2022 Bacteria identified Cx Nom (Bld) Klebsiella pneumoniae sp pneum [facility] Basophil percentageOrdered B y: Dr. Maravilla on 11-24-2022 Lactate [Moles/Vol] 0.9 mmol/L 0.4-2.0 [facility] HCO3 (BldA) [Moles/Vol]Order ed By: Dr. Maravilla on 11-24-2022 HCO3 (Bld) [Moles/Vol] 20 mmol/L 22-26 [facility] Laboratory - Chemistry and C hemistry - challengeOrdered By: Dr. Maravilla on 11-24-2022 CO2 [Moles/Vol] 21 mmol/L 23-33 [facility] Laboratory - Chemistry and C hemistry - challengeOrdered By: Dr. Lucero on 11-24-2022 Magnesium [Mass/Vol] 2.0 mg/dL 1.6-2.6 [facility] No Panel InformationOrdered By: Dr. Maravilla on 11-24-2022 Bed Mix Venous Bld PCO2 at Pat Temp 36.6 mmHg 41-51 [facility] Blood Gas Liter Flow 2.0 /min [facility] Blood Gas Specimen Type TRAMAINE [facility] Oxygen Delivery Device Cannula [facility] Venous Blood Base Excess -6 mmol/L -1.0-3.5 [facility] No Panel InformationOrdered By: Dr. Lucero on 11-24-2022 Thyroid Stimulating Hormone (TSH) 0.02 uIU/mL 0.358-3.74 [facility] No Panel InformationOrdered By: Dr. Paulson on 11-24-2022 Streptococcus pneumoniae Antigen (M [facility] PO2 venousOrdered By: Dr. Douglas perkins on 11-24-2022 Oxygen (BldV) [Partial pressure] 90 mm[Hg] 25-40 [facility] Urine Legionella pneumophila antigen detectionOrdered By: Dr. Paulson on 11-24-2022 L. pneumophila Ag Ql (U) [facility] Vital signsOrdered By: Dr. Shantel mai on 11-24-2022 Oxygen saturation in Blood 97 % 50-70 [facility] pH measurementOrdered By: Dr Gian Maravilla on 11-24-2022 pH (Unsp spec) 7.35 [pH] 7.32-7.42 [facility] Basophil percentageOrdered B y: Dr. Paulson on 11-23-2022 Bilirubin [Mass/Vol] 0.30 mg/dL 0.20-1.00 [facility] Comment on above: For patients on eltr ombopag therapy, use of Dimension [place]sey TBIL is not recommended. Protein [Mass/Vol] 6.2 g/dL 6.4-8.2 [facility] Laboratory - Chemistry and C hemistry - challengeOrdered By: Dr. Paulson on 11-23-2022 ALP [Catalytic activity/Vol] 129 U/L 45-117 [facility] ALT [Catalytic activity/Vol] 27 U/L 13-56 [facility] Globulin (S) [Mass/Vol] 3.9 g/dL 2.2-4.2 [facility] Serum or plasma albumin jaylen urement (mass/volume)Ordered By: Dr. Paulson on 11-23-2022 Albumin [Mass/Vol] 2.3 g/dL 3.2-5.0 [facility] Serum or plasma albumin/glob ulin mass ratioOrdered By: Dr. Paulson on 11-23-2022 Albumin/Globulin [Mass ratio] 0.6 {ratio} 0.9-2.4 [facility] Thin prep Papanicolaou smear with manual screeningOrdered By: Dr. Paulson on 11-23-2022 Thin prep Papanicolaou smear with manual screening 42 U/L 15-37 [facility] Whole blood hemoglobin A1c/t otal hemoglobin ratio (mass fraction)Ordered By: Dr. Paulson on 11-23-2022 HbA1c (Bld) [Mass fraction] 7.9 % 3.8-5.6 [facility] Comment on above: Normal < 5.7 % Predi abetic 5.7 - 6.4 % Diabetic >or= 6.5 % Please note range changes. Basophil percentageOrdered B y: Dr. Johnston on 11-22-2022 Basophil percentage 25-50 SEEN /hpf 0-5 [facility] Bilirubin Test strip Ql (U)O rdered By: Dr. Johnston on 11-22-2022 Bilirubin Ql (U) Negative Negative [facility] INR in Blood by Coagulation assayOrdered By: Dr. Johnston on 11-22-2022 INR Coag (Bld) [Relative time] 1.3 {INR} [facility] Influenza virus A and B and SARS-CoV-2 (COVID-19) Ag panel - Upper respiratory specimOrdered By: Dr. Johnston on 11-22-2022 SARS-CoV-2 (COVID-19) RNA MYRIAM+probe Ql (Resp) [facility] Ketones Test strip Ql (U)Ord ered By: Dr. Johnston on 11-22-2022 Ketones Ql (U) 15 mg/dl Negative [facility] Laboratory - CoagulationOrde red By: Dr. Johnston on 11-22-2022 aPTT Coag (Bld) [Time] 36.3 s 24.1-36.2 [facility] PT Coag (PPP) [Time] 16.0 s 11.7-14.9 [facility] Mucus LM Ql (Urine sed)Order ed By: Dr. Johnston on 11-22-2022 Mucus Ql (Urine sed) 0 SEEN /hpf [facility] Nitrite Test strip Ql (U)Ord ered By: Dr. Johnston on 11-22-2022 Nitrite Ql (U) Positive Negative [facility] No Panel InformationOrdered By: Dr. Johnston on 11-22-2022 Troponin I High Sensitivity 20 pg/mL 3.0-54.0 [facility] Comment on above: Please Note: New Patsy t Units and Gender Specific Reference Ranges. For more information see Policy Stat Procedure Kirksey High Sensitivity Troponin (TNIH) and attachments. Protein Test strip Ql (U)Ord ered By: Dr. Johnston on 11-22-2022 Protein Ql (U) 30 mg/dl Negative [facility] Squamous epithelial cells de tection in urine sediment by light microscopyOrdered By: Dr. Johnston on 11-22-2022 Epithelial cells.squamous LM Ql (Urine sed) 0 SEEN /hpf 5-10 [facility] Urine blood detectionOrdered By: Dr. Johnston on 11-22-2022 RBC Ql (U) 50 /ul Negative [facility] RBC Ql (U) 0 SEEN /hpf 0-5 [facility] Urine clarityOrdered By: Dr. Johnston on 11-22-2022 Clarity (U) Clear Clear [facility] Urine color determinationOrd ered By: Dr. Johnston on 11-22-2022 Color (U) Yellow Yellow [facility] Urine glucose detectionOrder ed By: Dr. Johnston on 11-22-2022 Glucose Ql (U) 1000 mg/dl Normal [facility] Urine leukocyte esterase det ection by dipstickOrdered By: Dr. Johnston on 11-22-2022 Leukocyte esterase Test strip Ql (U) 500 /ul Negative [facility] Urine pHOrdered By: Dr. Norman stevens on 11-22-2022 pH (U) 6.0 [pH] 5.0 - 8.0 [facility] Urine sediment bacteria coun t by microscopy (number/high power field)Ordered By: Dr. Johnston on 11-22-2022 Bacteria LM.HPF (Urine sed) [#/Area] 2 /[HPF] None Seen [facility] Urine specific gravity measu rementOrdered By: Dr. Johnston on 11-22-2022 Specific gravity (U) [Rel density] 1.020 1.002-1.03 0 [facility] Urobilinogen Auto test strip Ql (U)Ordered By: Dr. Johnston on 11-22-2022 Urobilinogen Ql (U) Normal mg/dl Normal [facility] Laboratory - Hematology and Cell countson 10-06-2022 HbA1c (Bld) [Mass fraction] 8.9 % [facility] Absolute lymphocyte countOrd ered By: Dr. Stovall on 09-10-2022 Lymphocytes Auto (Unsp spec) [#/Vol] 1.73 10*3/uL 0.83-4.51 [facility] Basophil percentageOrdered B y: Dr. Stovall on 09-10-2022 Basophils/100 WBC (Bld) 1.0 % 0-1 [facility] Chloride [Moles/Vol] 108 mmol/L 98-107 [facility] Eosinophils/100 WBC (Bld) 4.8 % 0-5 [facility] Glucose [Mass/Vol] 306 mg/dL 74-106 [facility] Comment on above: Glucose result great er than or equal to 200 mg/dLsuggests DIABETES MELLITUS per A.D.A. criteria. Neutrophils (Bld) [#/Vol] 5.8 10*3/uL 2.0-7.7 [facility] Neutrophils/100 WBC (Bld) 67.2 % 47-70 [facility] Potassium [Moles/Vol] 3.8 mmol/L 3.5-5.1 [facility] Sodium [Moles/Vol] 140 mmol/L 136-145 [facility] WBC (Bld) [#/Vol] 8.7 10*3/uL 4.4-11.0 [facility] Blood erythrocytes count (nu mber/volume)Ordered By: Dr. Stovall on 09-10-2022 RBC (Bld) [#/Vol] 3.57 10*6/uL 4.2-5.4 [facility] Blood hemoglobin measurement (mass/volume)Ordered By: Dr. Stovall on 09-10-2022 Hemoglobin (Bld) [Mass/Vol] 9.6 g/dL 12.0-15.0 [facility] Blood lymphocytes/100 leukoc ytesOrdered By: Dr. Stovall on 09-10-2022 Lymphocytes/100 WBC (Bld) 19.9 % 19-41 [facility] Blood monocytes/100 leukocyt esOrdered By: Dr. Stovall on 09-10-2022 Monocytes/100 WBC (Bld) 6.8 % 0-10 [facility] Blood platelet mean volumeOr dered By: Dr. Stovall on 09-10-2022 Platelet mean volume (Bld) [Entitic vol] 11.0 fL 6.2-12.0 [facility] Determination of erythrocyte mean corpuscular volume (MCV)Ordered By: Dr. Stovall on 09-10-2022 MCV (RBC) [Entitic vol] 86.3 fL 81-99 [facility] Glucose Glucometer (BldC) [M ass/Vol]Ordered By: Dr. Stovall on 09-10-2022 Glucose [Mass/Vol] 279 mg/dL 74-106 [facility] Comment on above: MANAGEMENT OF PATIEN T CARE PER NURSING PROTOCOL Hematocrit Auto (Bld) [Volum e fraction]Ordered By: Dr. Stovall on 09-10-2022 Hematocrit (Bld) [Volume fraction] 30.8 % 37-47 [facility] Laboratory - Chemistry and C hemistry - challengeOrdered By: Dr. Stovall on 09-10-2022 CO2 [Moles/Vol] 26.0 mmol/L 21.0-32.0 [facility] Urea nitrogen/Creatinine [Mass ratio] 21.3 mg/mg 10-20 [facility] Laboratory - Hematology and Cell countsOrdered By: Dr. Stovall on 09-10-2022 Erythrocyte distribution width (RBC) [Entitic vol] 54.3 fL 35.1-43.9 [facility] Erythrocyte distribution width (RBC) [Ratio] 17.1 % 11.6-14.6 [facility] Immature granulocytes/100 WBC (Bld) 0.300 % 0.0-0.9 [facility] Comment on above: IG% - Immature Granu locytes (promyelocytes, myelocytes and metamyelocytes) > 1% indicates that a LEFT SHIFT is Present. MCH (RBC) [Entitic mass] 26.9 pg 27.0-32.0 [facility] Nucleated RBC/100 WBC (Bld) [Ratio] 0 % 0-5 [facility] MCHC Auto (RBC) [Mass/Vol]Or dered By: Dr. Stovall on 09-10-2022 MCHC (RBC) [Mass/Vol] 31.2 g/dL 32-36 [facility] No Panel InformationOrdered By: Dr. Stovall on 09-10-2022 Estimated Creatinine Clearance Calc 44.26 ml/min [facility] Estimated GFR (MDRD) Amer 78 mL/min >60 [facility] Comment on above: GFR Calc Estimated GFR (MDRD) Non-Af Amer 65 mL/min >60 [facility] Comment on above: Non- GFR Calc Platelets bldOrdered By: Dr. Stovall on 09-10-2022 Platelets (Bld) [#/Vol] 317 10*3/uL 150-450 [facility] Serum or plasma calcium jaylen urement (mass/volume)Ordered By: Dr. Stovall on 09-10-2022 Calcium [Mass/Vol] 8.7 mg/dL 8.5-10.1 [facility] Serum or plasma creatinine m easurement (mass/volume)Ordered By: Dr. Stovall on 09-10-2022 Creatinine [Mass/Vol] 0.89 mg/dL 0.55-1.02 [facility] Comment on above: The validity of the calculated GFR & GFRAA in patients over 70 years has not been determined. Clinical correlation is essential. Serum or plasma urea nitroge n measurement (mass/volume)Ordered By: Dr. Stovall on 09-10-2022 Urea nitrogen [Mass/Vol] 19 mg/dL - [facility] Thin prep Papanicolaou smear with manual screeningOrdered By: Dr. Stovall on 09-10-2022 Thin prep Papanicolaou smear with manual screening 6 5-15 [facility] Basophil percentageOrdered B y: Dr. Stovall on 09-09-2022 Basophil percentage 4.1 mg/dL 2.5-4.9 [facility] Culture, urineOrdered By: Dr Gian Ponce on 09-09-2022 Bacteria identified Cx Nom (U) Positive [facility] Laboratory - Chemistry and C hemistry - challengeOrdered By: Dr. Stovall on 09-09-2022 Magnesium [Mass/Vol] 2.4 mg/dL 1.6-2.6 [facility] Absolute lymphocyte counton 09-08-2022 Lymphocytes Auto (Unsp spec) [#/Vol] 1.00 10*3/uL 0.83-4.51 [facility] Work Phone: Basophil percentageOrdered B y: Dr. Ponce on 09-08-2022 Basophil percentage 10-25 SEEN /hpf 0-5 [facility] Basophil percentageon 2021 Basophils/100 WBC (Bld) 0.6 % 0-1 [facility] Work Phone: Chloride [Moles/Vol] 98 mmol/L 98-107 [facility] Work Phone: Eosinophils/100 WBC (Bld) 0.3 % 0-5 [facility] Work Phone: Glucose [Mass/Vol] 643 mg/dL 74-106 [facility] Work Phone: Comment on above: Critical Result(s) C alled at: 09:06:14 09/08/2022 by: Marleen Murguia. Results read back by same.Glucose result greater than or equal to 200 mg/dLsuggests DIABETES MELLITUS per A.D.A. criteria. Neutrophils (Bld) [#/Vol] 14.6 10*3/uL 2.0-7.7 [facility] Work Phone: Neutrophils/100 WBC (Bld) 90.2 % 47-70 [facility] Work Phone: Potassium [Moles/Vol] 4.7 mmol/L 3.5-5.1 [facility] Work Phone: Sodium [Moles/Vol] 135 mmol/L 136-145 [facility] Work Phone: WBC (Bld) [#/Vol] 16.2 10*3/uL 4.4-11.0 [facility] Work Phone: Bilirubin Test strip Ql (U)O rdered By: Dr. Ponce on 09-08-2022 Bilirubin Ql (U) Negative Negative [facility] Blood erythrocytes count (nu mber/volume)on 09-08-2022 RBC (Bld) [#/Vol] 4.20 10*6/uL 4.2-5.4 [facility] Work Phone: Blood hemoglobin measurement (mass/volume)on 09-08-2022 Hemoglobin (Bld) [Mass/Vol] 11.3 g/dL 12.0-15.0 [facility] Work Phone: Blood lymphocytes/100 leukoc yteson 09-08-2022 Lymphocytes/100 WBC (Bld) 6.2 % 19-41 [facility] Work Phone: Blood monocytes/100 leukocyt eson 09-08-2022 Monocytes/100 WBC (Bld) 2.2 % 0-10 [facility] Work Phone: Blood platelet mean volumeon 09-08-2022 Platelet mean volume (Bld) [Entitic vol] 11.6 fL 6.2-12.0 [facility] Work Phone: Determination of erythrocyte mean corpuscular volume (MCV)on 09-08-2022 MCV (RBC) [Entitic vol] 86.9 fL 81-99 [facility] Work Phone: Glucose Glucometer (BldC) [M ass/Vol]on 09-08-2022 Glucose [Mass/Vol] mg/dL 74-106 [facility] Work Phone: Comment on above: MANAGEMENT OF PATIEN T CARE PER NURSING PROTOCOL Hematocrit Auto (Bld) [Volum e fraction]on 09-08-2022 Hematocrit (Bld) [Volume fraction] 36.5 % 37-47 [facility] Work Phone: Ketones Test strip Ql (U)Ord ered By: Dr. Ponce on 09-08-2022 Ketones Ql (U) 50 mg/dl Negative [facility] Laboratory - Chemistry and C hemistry - challengeon 09-08-2022 CO2 [Moles/Vol] 22.0 mmol/L 21.0-32.0 [facility] Work Phone: Urea nitrogen/Creatinine [Mass ratio] 25.6 mg/mg 10-20 [facility] Work Phone: Laboratory - Hematology and Cell countson 09-08-2022 Erythrocyte distribution width (RBC) [Entitic vol] 54.6 fL 35.1-43.9 [facility] Work Phone: Erythrocyte distribution width (RBC) [Ratio] 17.2 % 11.6-14.6 [facility] Work Phone: Immature granulocytes/100 WBC (Bld) 0.500 % 0.0-0.9 [facility] Work Phone: Comment on above: IG% - Immature Granu locytes (promyelocytes, myelocytes and metamyelocytes) > 1% indicates that a LEFT SHIFT is Present. MCH (RBC) [Entitic mass] 26.9 pg 27.0-32.0 [facility] Work Phone: Nucleated RBC/100 WBC (Bld) [Ratio] 0 % 0-5 [facility] Work Phone: MCHC Auto (RBC) [Mass/Vol]on 09-08-2022 MCHC (RBC) [Mass/Vol] 31.0 g/dL 32-36 [facility] Work Phone: Mucus LM Ql (Urine sed)Order ed By: Dr. Ponce on 09-08-2022 Mucus Ql (Urine sed) 0 SEEN /hpf [facility] Nitrite Test strip Ql (U)Ord ered By: Dr. Ponce on 09-08-2022 Nitrite Ql (U) Negative Negative [facility] No Panel Informationon 09-08 Estimated Creatinine Clearance Calc 30.54 ml/min [facility] Work Phone: Estimated GFR (MDRD) Amer 51 mL/min >60 [facility] Work Phone: Comment on above: GFR Calc Estimated GFR (MDRD) Non-Af Amer 42 mL/min >60 [facility] Work Phone: Comment on above: Non- GFR Calc No Panel InformationOrdered By: Dr. Ponce on 09-08-2022 Troponin I High Sensitivity 16 pg/mL 3.0-54.0 [facility] Comment on above: Please Note: New Patsy t Units and Gender Specific Reference Ranges. For more information see Policy Stat Procedure [facility] High Sensitivity Troponin (TNIH) and attachments. Platelets bldon 09-08-2022 Platelets (Bld) [#/Vol] 374 10*3/uL 150-450 [facility] Work Phone: Protein Test strip Ql (U)Ord ered By: Dr. Ponce on 09-08-2022 Protein Ql (U) Negative Negative [facility] Serum or plasma acetone jaylen urement (mass/volume)Ordered By: Dr. Ponce on 09-08-2022 Acetone [Mass/Vol] SMALL NEG [facility] Serum or plasma calcium jaylen urement (mass/volume)on 09-08-2022 Calcium [Mass/Vol] 9.5 mg/dL 8.5-10.1 [facility] Work Phone: Serum or plasma creatinine m easurement (mass/volume)on 09-08-2022 Creatinine [Mass/Vol] 1.29 mg/dL 0.55-1.02 [facility] Work Phone: Comment on above: The validity of the calculated GFR & GFRAA in patients over 70 years has not been determined. Clinical correlation is essential. Serum or plasma urea nitroge n measurement (mass/volume)on 09-08-2022 Urea nitrogen [Mass/Vol] 33 mg/dL 7-18 [facility] Work Phone: Squamous epithelial cells de tection in urine sediment by light microscopyOrdered By: Dr. Ponce on 09-08-2022 Epithelial cells.squamous LM Ql (Urine sed) 0-5 SEEN /hpf 5-10 [facility] Thin prep Papanicolaou smear with manual screeningon 09-08-2022 Thin prep Papanicolaou smear with manual screening 15 5-15 [facility] Work Phone: Urine blood detectionOrdered By: Dr. Ponce on 09-08-2022 RBC Ql (U) Negative Negative [facility] RBC Ql (U) 0 SEEN /hpf 0-5 [facility] Urine clarityOrdered By: Dr. Ponce on 09-08-2022 Clarity (U) Sl. Cloudy Clear [facility] Urine color determinationOrd ered By: Dr. Ponce on 09-08-2022 Color (U) Yellow Yellow [facility] Urine glucose detectionOrder ed By: Dr. Ponce on 09-08-2022 Glucose Ql (U) 1000 mg/dl Normal [facility] Urine leukocyte esterase det ection by dipstickOrdered By: Dr. Ponce on 09-08-2022 Leukocyte esterase Test strip Ql (U) 100 /ul Negative [facility] Urine pHOrdered By: Dr. Jorge marcus on 09-08-2022 pH (U) 6.0 [pH] 5.0 - 8.0 [facility] Urine sediment bacteria coun t by microscopy (number/high power field)Ordered By: Dr. Ponce on 09-08-2022 Bacteria LM.HPF (Urine sed) [#/Area] 0 /[HPF] None Seen [facility] Urine specific gravity measu rementOrdered By: Dr. Ponce on 09-08-2022 Specific gravity (U) [Rel density] 1.015 1.002-1.03 0 [facility] Urobilinogen Auto test strip Ql (U)Ordered By: Dr. Ponce on 09-08-2022 Urobilinogen Ql (U) Normal mg/dl Normal [facility] Laboratory - Chemistry and C hemistry - challengeOrdered By: Delfina Velasquez on 08-11-2022 Free T4 [Mass/Vol] 1.45 ng/dL 0.76-1.46 [facility] No Panel InformationOrdered By: Delfina Velasquez on 08-11-2022 Thyroid Stimulating Hormone (TSH) 0.23 uIU/mL 0.358-3.74 [facility] Absolute lymphocyte counton 06-07-2022 Lymphocytes Auto (Unsp spec) [#/Vol] 2.01 10*3/uL 0.83-4.51 [facility] Work Phone: Basophil percentageon 2021 Basophils/100 WBC (Bld) 0.3 % 0-1 [facility] Work Phone: Eosinophils/100 WBC (Bld) 0.3 % 0-5 [facility] Work Phone: Neutrophils (Bld) [#/Vol] 8.9 10*3/uL 2.0-7.7 [facility] Work Phone: Neutrophils/100 WBC (Bld) 75.1 % 47-70 [facility] Work Phone: WBC (Bld) [#/Vol] 11.8 10*3/uL 4.4-11.0 [facility] Work Phone: Blood erythrocytes count (nu mber/volume)on 06-07-2022 RBC (Bld) [#/Vol] 3.58 10*6/uL 4.2-5.4 [facility] Work Phone: Blood hemoglobin measurement (mass/volume)on 06-07-2022 Hemoglobin (Bld) [Mass/Vol] 9.7 g/dL 12.0-15.0 [facility] Work Phone: Blood lymphocytes/100 leukoc yteson 06-07-2022 Lymphocytes/100 WBC (Bld) 17.0 % 19-41 [facility] Work Phone: Blood monocytes/100 leukocyt eson 06-07-2022 Monocytes/100 WBC (Bld) 6.8 % 0-10 [facility] Work Phone: Blood platelet mean volumeon 06-07-2022 Platelet mean volume (Bld) [Entitic vol] 10.5 fL 6.2-12.0 [facility] Work Phone: Determination of erythrocyte mean corpuscular volume (MCV)on 06-07-2022 MCV (RBC) [Entitic vol] 83.8 fL 81-99 [facility] Work Phone: Glucose Glucometer (BldC) [M ass/Vol]on 06-07-2022 Glucose [Mass/Vol] 115 mg/dL 74-106 [facility] Work Phone: Comment on above: MANAGEMENT OF PATIEN T CARE PER NURSING PROTOCOL Hematocrit Auto (Bld) [Volum e fraction]on 06-07-2022 Hematocrit (Bld) [Volume fraction] 30.0 % 37-47 [facility] Work Phone: Laboratory - Hematology and Cell countson 06-07-2022 Erythrocyte distribution width (RBC) [Entitic vol] 46.2 fL 35.1-43.9 [facility] Work Phone: Erythrocyte distribution width (RBC) [Ratio] 15.0 % 11.6-14.6 [facility] Work Phone: Immature granulocytes/100 WBC (Bld) 0.500 % 0.0-0.9 [facility] Work Phone: Comment on above: IG% - Immature Granu locytes (promyelocytes, myelocytes and metamyelocytes) > 1% indicates that a LEFT SHIFT is Present. MCH (RBC) [Entitic mass] 27.1 pg 27.0-32.0 [facility] Work Phone: Nucleated RBC/100 WBC (Bld) [Ratio] 0 % 0-5 [facility] Work Phone: MCHC Auto (RBC) [Mass/Vol]on 06-07-2022 MCHC (RBC) [Mass/Vol] 32.3 g/dL 32-36 [facility] Work Phone: Platelets bldon 06-07-2022 Platelets (Bld) [#/Vol] 483 10*3/uL 150-450 [facility] Work Phone: Basophil percentageon 2021 Chloride [Moles/Vol] 104 mmol/L 98-107 [facility] Work Phone: Glucose [Mass/Vol] 380 mg/dL 74-106 [facility] Work Phone: Comment on above: Glucose result great er than or equal to 200 mg/dLsuggests DIABETES MELLITUS per A.D.A. criteria. Potassium [Moles/Vol] 5.0 mmol/L 3.5-5.1 [facility] Work Phone: Sodium [Moles/Vol] 134 mmol/L 136-145 [facility] Work Phone: Blood platelet adequacy dete ction by light microscopyon 06-05-2022 Platelets LM Ql (Bld) SLT INC ADEQ [facility] Work Phone: Laboratory - Chemistry and C hemistry - challengeon 06-05-2022 CO2 [Moles/Vol] 22.0 mmol/L 21.0-32.0 [facility] Work Phone: Free T4 [Mass/Vol] 1.68 ng/dL 0.76-1.46 [facility] Work Phone: Urea nitrogen/Creatinine [Mass ratio] 26.8 mg/mg 10-20 [facility] Work Phone: Laboratory - Microbiology an d Antimicrobial susceptibilityon 06-05-2022 SARS-CoV-2 (COVID-19) RNA MYRIAM+probe Ql (Unsp spec) Not detected Not Detect [facility] Work Phone: Comment on above: Normal Reference Ran ge: Not DetectedMethod:(RT-PCR) real-time reverse transcriptase PCRLuminex Party Earth Instrument*The Food and Drug Administration (FDA) has issued an Emergency Use Authorization (EAU) for the [place] SARS-CoV-2 Assay for the rapid detection of the virus that causes COVID-19. This test has been validated, but the FDAs independent review of this validation is pending.*Negative results do not preclude infection and should not be used as the sole basis for treatment or patient management. Optimum specimen types and timing for peak viral levels during infections caused by SARS-CoV-2 have not been determined. Collection of multiple specimens from the same patient may be necessary to detect the virus. The possibility of a false negative result should be considered if the patient has clinical presentation or has had recent exposure. No Panel Informationon 06-05 Estimated Creatinine Clearance Calc 43.05 ml/min [facility] Work Phone: Estimated GFR (MDRD) Amer 75 mL/min >60 [facility] Work Phone: Comment on above: GFR Calc Estimated GFR (MDRD) Non-Af Amer 62 mL/min >60 [facility] Work Phone: Comment on above: Non- GFR Calc Thyroid Stimulating Hormone (TSH) 0.04 uIU/mL 0.358-3.74 [facility] Work Phone: Methicillin-Resist S.aureus DNA PCR Negative Negative [facility] Work Phone: RBC morphologyon 08-13-2022 RBC morphology finding Nom (Bld) NORM C+C NORMAL NORM C&C [facility] Work Phone: Serum or plasma calcium jaylen urement (mass/volume)on 06-05-2022 Calcium [Mass/Vol] 8.7 mg/dL 8.5-10.1 [facility] Work Phone: Serum or plasma creatinine m easurement (mass/volume)on 06-05-2022 Creatinine [Mass/Vol] 0.93 mg/dL 0.55-1.02 [facility] Work Phone: Comment on above: The validity of the calculated GFR & GFRAA in patients over 70 years has not been determined. Clinical correlation is essential. Serum or plasma urea nitroge n measurement (mass/volume)on 06-05-2022 Urea nitrogen [Mass/Vol] 25 mg/dL 7-18 [facility] Work Phone: Thin prep Papanicolaou smear with manual screeningon 06-05-2022 Thin prep Papanicolaou smear with manual screening 8 5-15 [facility] Work Phone: Absolute lymphocyte counton 06-04-2022 Lymphocytes Auto (Unsp spec) [#/Vol] 0.49 10*3/uL 0.83-4.51 [facility] Work Phone: Assessment of wrist artery p atency prior to arterial punctureon 06-04-2022 Arterial patency Wrist artery --pre arterial puncture Positive [facility] Work Phone: Base excesson 06-04-2022 Base excess Calc (BldV) [Moles/Vol] -1 mmol/L -2-2 [facility] Work Phone: Basophil percentageon 2021 Basophil percentage 24.9 mmol/L 22-26 [facility] Work Phone: Basophils/100 WBC (Bld) 96 % 95-99 [facility] Work Phone: Basophil percentage 4.1 mg/dL 2.5-4.9 [facility]: Basophils/100 WBC (Bld) 0.4 % 0-1 [facility] Work Phone: Bilirubin [Mass/Vol] 0.40 mg/dL 0.20-1.00 [facility] Work Phone: Comment on above: For patients on eltr ombopag therapy, use of Dimension [place] TBIL is not recommended. Chloride [Moles/Vol] 104 mmol/L 98-107 [facility] Work Phone: Eosinophils/100 WBC (Bld) 1.5 % 0-5 [facility] Work Phone: Glucose [Mass/Vol] 171 mg/dL 74-106 [facility] Work Phone: Comment on above: Fasting Glucose resu lt greater than or equal to 126 mg/dL suggests DIABETES MELLITUS per A.D.A. criteria. Lactate [Moles/Vol] 0.8 mmol/L 0.4-2.0 [facility] Work Phone: Neutrophils (Bld) [#/Vol] 15.0 10*3/uL 2.0-7.7 [facility] Work Phone: Neutrophils/100 WBC (Bld) 90.9 % 47-70 [facility] Work Phone: Potassium [Moles/Vol] 4.2 mmol/L 3.5-5.1 [facility] Work Phone: Protein [Mass/Vol] 7.1 g/dL 6.4-8.2 [facility] Work Phone: Sodium [Moles/Vol] 137 mmol/L 136-145 [facility] Work Phone: WBC (Bld) [#/Vol] 16.4 10*3/uL 4.4-11.0 [facility] Work Phone: Basophil percentage 0 SEEN /hpf 0-5 [facility] Work Phone: Bilirubin Test strip Ql (U)o n 08-12-2022 Bilirubin Ql (U) Negative Negative [facility] Work Phone: Blood erythrocytes count (nu mber/volume)on 06-04-2022 RBC (Bld) [#/Vol] 4.21 10*6/uL 4.2-5.4 [facility] Work Phone: Blood hemoglobin measurement (mass/volume)on 06-04-2022 Hemoglobin (Bld) [Mass/Vol] 11.3 g/dL 12.0-15.0 [facility] Work Phone: Blood lymphocytes/100 leukoc yteson 06-04-2022 Lymphocytes/100 WBC (Bld) 3.0 % 19-41 [facility] Work Phone: Blood manual differential co mment interpretation (narrative result)on 06-04-2022 Manual differential comment Duglas (Bld) [Interp] SCANNED [facility] Work Phone: Blood monocytes/100 leukocyt eson 06-04-2022 Monocytes/100 WBC (Bld) 4.0 % 0-10 [facility] Work Phone: Blood platelet mean volumeon 06-04-2022 Platelet mean volume (Bld) [Entitic vol] 9.9 fL 6.2-12.0 [facility] Work Phone: CO2 (BldA) [Partial pressure ]on 06-04-2022 CO2 (Bld) [Partial pressure] 45.6 mm[Hg] 35-45 [facility] Work Phone: Determination of erythrocyte mean corpuscular volume (MCV)on 06-04-2022 MCV (RBC) [Entitic vol] 85.5 fL 81-99 [facility] Work Phone: Hematocrit Auto (Bld) [Volum e fraction]on 06-04-2022 Hematocrit (Bld) [Volume fraction] 36.0 % 37-47 [facility] Work Phone: Ketones Test strip Ql (U)on 06-04-2022 Ketones Ql (U) 50 mg/dl Negative [facility] Work Phone: Laboratory - Chemistry and C hemistry - challengeon 06-04-2022 ALP [Catalytic activity/Vol] 126 U/L 45-117 [facility] Work Phone: ALT [Catalytic activity/Vol] 18 U/L 13-56 [facility] Work Phone: CO2 [Moles/Vol] 27.0 mmol/L 21.0-32.0 [facility] Work Phone: Globulin (S) [Mass/Vol] 4.6 g/dL 2.2-4.2 [facility] Work Phone: Magnesium [Mass/Vol] 2.4 mg/dL 1.6-2.6 [facility] Work Phone: Urea nitrogen/Creatinine [Mass ratio] 22.9 mg/mg 10-20 [facility] Work Phone: Laboratory - Hematology and Cell countson 06-04-2022 Erythrocyte distribution width (RBC) [Entitic vol] 46.4 fL 35.1-43.9 [facility] Work Phone: Erythrocyte distribution width (RBC) [Ratio] 14.9 % 11.6-14.6 [facility] Work Phone: Immature granulocytes/100 WBC (Bld) 0.200 % 0.0-0.9 [facility] Work Phone: Comment on above: IG% - Immature Granu locytes (promyelocytes, myelocytes and metamyelocytes) > 1% indicates that a LEFT SHIFT is Present. MCH (RBC) [Entitic mass] 26.8 pg 27.0-32.0 [facility] Work Phone: Nucleated RBC/100 WBC (Bld) [Ratio] 0 % 0-5 [facility] Work Phone: MCHC Auto (RBC) [Mass/Vol]on 06-04-2022 MCHC (RBC) [Mass/Vol] 31.4 g/dL 32-36 [facility] Work Phone: Mucus LM Ql (Urine sed)on Mucus Ql (Urine sed) 0 SEEN /hpf [facility] Work Phone: Nitrite Test strip Ql (U)on 06-04-2022 Nitrite Ql (U) Negative Negative [facility] Work Phone: No Panel Informationon 06-04 Blood Gas Liter Flow 3.0 /min [facility] Work Phone: Blood Gas Sample Site L Radial [facility] Work Phone: Blood Gas Specimen Type ART [facility] Work Phone: Blood Gas Total CO2 26 mmol/L [facility] Work Phone: Oxygen Delivery Device Cannula [facility] Work Phone: Estimated Creatinine Clearance Calc 44.18 ml/min [facility] Work Phone: Estimated GFR (MDRD) Amer 86 mL/min >60 [facility] Work Phone: Comment on above: GFR Calc Estimated GFR (MDRD) Non-Af Amer 71 mL/min >60 [facility] Work Phone: Comment on above: Non- GFR Calc Troponin I High Sensitivity 11 pg/mL 3.0-54.0 [facility] Work Phone: Comment on above: Please Note: New Patsy t Units and Gender Specific Reference Ranges. For more information see Policy Stat Procedure [facility] High Sensitivity Troponin (TNIH) and attachments. Oxygen (BldA) [Partial press ure]on 06-04-2022 Oxygen (Bld) [Partial pressure] 83 mmHG 75-100 [facility] Work Phone: Platelets bldon 06-04-2022 Platelets (Bld) [#/Vol] 519 10*3/uL 150-450 [facility] Work Phone: Protein Test strip Ql (U)on 06-04-2022 Protein Ql (U) Negative Negative [facility] Work Phone: Serum or plasma albumin jaylen urement (mass/volume)on 06-04-2022 Albumin [Mass/Vol] 2.5 g/dL 3.2-5.0 [facility] Work Phone: Serum or plasma albumin/glob ulin mass ratioon 06-04-2022 Albumin/Globulin [Mass ratio] 0.5 {ratio} 0.9-2.4 [facility] Work Phone: Serum or plasma calcium jaylen urement (mass/volume)on 06-04-2022 Calcium [Mass/Vol] 8.9 mg/dL 8.5-10.1 [facility] Work Phone: Serum or plasma creatinine m easurement (mass/volume)on 06-04-2022 Creatinine [Mass/Vol] 0.83 mg/dL 0.55-1.02 [facility] Work Phone: Comment on above: The validity of the calculated GFR & GFRAA in patients over 70 years has not been determined. Clinical correlation is essential. Serum or plasma urea nitroge n measurement (mass/volume)on 06-04-2022 Urea nitrogen [Mass/Vol] 19 mg/dL 7-18 [facility] Work Phone: Squamous epithelial cells de tection in urine sediment by light microscopyon 06-04-2022 Epithelial cells.squamous LM Ql (Urine sed) 0-5 SEEN /hpf 5-10 [facility] Work Phone: Thin prep Papanicolaou smear with manual screeningon 06-04-2022 Thin prep Papanicolaou smear with manual screening 17 U/L 15-37 [facility] Work Phone: Thin prep Papanicolaou smear with manual screening 6 5-15 [facility] Work Phone: Urine blood detectionon 05-24 RBC Ql (U) Negative Negative [facility] Work Phone: RBC Ql (U) 0 SEEN /hpf 0-5 [facility] Work Phone: Urine clarityon 06-04-2022 Clarity (U) Clear Clear [facility] Work Phone: Urine color determinationon 06-04-2022 Color (U) Yellow Yellow [facility] Work Phone: Urine glucose detectionon Glucose Ql (U) 1000 mg/dl Normal [facility] Work Phone: Urine leukocyte esterase det ection by dipstickon 06-04-2022 Leukocyte esterase Test strip Ql (U) Negative Negative [facility] Work Phone: Urine pHon 06-04-2022 pH (U) 5.0 [pH] 5.0 - 8.0 [facility] Work Phone: Urine sediment bacteria coun t by microscopy (number/high power field)on 06-04-2022 Bacteria LM.HPF (Urine sed) [#/Area] 0 /[HPF] None Seen [facility] Work Phone: Urine specific gravity measu rementon 06-04-2022 Specific gravity (U) [Rel density] 1.015 1.002-1.03 0 [facility] Work Phone: Urobilinogen Auto test strip Ql (U)on 06-04-2022 Urobilinogen Ql (U) Normal mg/dl Normal [facility] Work Phone: pH measurementon 06-04-2022 pH (Unsp spec) 7.35 [pH] 7.35-7.45 [facility] Work Phone: Basophil percentageon 2021 Bilirubin [Mass/Vol] 0.30 mg/dL 0.20-1.00 [facility] Work Phone: Comment on above: For patients on eltr ombopag therapy, use of Dimension [place] TBIL is not recommended. Chloride [Moles/Vol] 102 mmol/L 98-107 [facility] Work Phone: Glucose [Mass/Vol] 124 mg/dL 74-106 [facility] Work Phone: Comment on above: Fasting Glucose resu lt from 100 to 125 mg/dL suggests IMPAIRED HOMEOSTASIS per A.D.A. criteria. Potassium [Moles/Vol] 4.3 mmol/L 3.5-5.1 [facility] Work Phone: Protein [Mass/Vol] 6.7 g/dL 6.4-8.2 [facility] Work Phone: Sodium [Moles/Vol] 139 mmol/L 136-145 [facility] Work Phone: WBC (Bld) [#/Vol] 10.6 10*3/uL 4.4-11.0 [facility] Work Phone: Blood erythrocytes count (nu mber/volume)on 06-03-2022 RBC (Bld) [#/Vol] 4.41 10*6/uL 4.2-5.4 [facility] Work Phone: Blood hemoglobin measurement (mass/volume)on 06-03-2022 Hemoglobin (Bld) [Mass/Vol] 11.9 g/dL 12.0-15.0 [facility] Work Phone: Blood platelet mean volumeon 06-03-2022 Platelet mean volume (Bld) [Entitic vol] 10.3 fL 6.2-12.0 [facility] Work Phone: Determination of erythrocyte mean corpuscular volume (MCV)on 06-03-2022 MCV (RBC) [Entitic vol] 83.0 fL 81-99 [facility] Work Phone: Hematocrit Auto (Bld) [Volum e fraction]on 06-03-2022 Hematocrit (Bld) [Volume fraction] 36.6 % 37-47 [facility] Work Phone: Laboratory - Chemistry and C hemistry - challengeon 06-03-2022 Natriuretic peptide B (Bld) [Mass/Vol] 157.7 pg/mL 0-100 [facility] Work Phone: ALP [Catalytic activity/Vol] 137 U/L 45-117 [facility] Work Phone: ALT [Catalytic activity/Vol] 22 U/L 13-56 [facility] Work Phone: CO2 [Moles/Vol] 29.0 mmol/L 21.0-32.0 [facility] Work Phone: Globulin (S) [Mass/Vol] 4.1 g/dL 2.2-4.2 [facility] Work Phone: Urea nitrogen/Creatinine [Mass ratio] 17.8 mg/mg 10-20 [facility] Work Phone: Laboratory - Hematology and Cell countson 06-03-2022 Erythrocyte distribution width (RBC) [Entitic vol] 44.4 fL 35.1-43.9 [facility] Work Phone: Erythrocyte distribution width (RBC) [Ratio] 14.7 % 11.6-14.6 [facility] Work Phone: MCH (RBC) [Entitic mass] 27.0 pg 27.0-32.0 [facility] Work Phone: MCHC Auto (RBC) [Mass/Vol]on 06-03-2022 MCHC (RBC) [Mass/Vol] 32.5 g/dL 32-36 [facility] Work Phone: No Panel Informationon 06-03 Estimated GFR (MDRD) Amer 64 mL/min >60 [facility] Work Phone: Comment on above: GFR Calc Estimated GFR (MDRD) Non-Af Amer 53 mL/min >60 [facility] Work Phone: Comment on above: Non- GFR Calc Platelets bldon 06-03-2022 Platelets (Bld) [#/Vol] 543 10*3/uL 150-450 [facility] Work Phone: Serum or plasma albumin jaylen urement (mass/volume)on 06-03-2022 Albumin [Mass/Vol] 2.6 g/dL 3.2-5.0 [facility] Work Phone: Serum or plasma albumin/glob ulin mass ratioon 06-03-2022 Albumin/Globulin [Mass ratio] 0.6 {ratio} 0.9-2.4 [facility] Work Phone: Serum or plasma calcium jaylen urement (mass/volume)on 06-03-2022 Calcium [Mass/Vol] 9.5 mg/dL 8.5-10.1 [facility] Work Phone: Serum or plasma creatinine m easurement (mass/volume)on 06-03-2022 Creatinine [Mass/Vol] 1.07 mg/dL 0.55-1.02 [facility] [facility] Work Phone: Comment on above: The validity of the calculated GFR & GFRAA in patients over 70 years has not been determined. Clinical correlation is essential. Serum or plasma urea nitroge n measurement (mass/volume)on 06-03-2022 Urea nitrogen [Mass/Vol] 19 mg/dL 7-18 [facility] Work Phone: Thin prep Papanicolaou smear with manual screeningon 06-03-2022 Thin prep Papanicolaou smear with manual screening 19 U/L 15-37 [facility] Work Phone: Thin prep Papanicolaou smear with manual screening 8 5-15 [facility] Work Phone: Laboratory - Hematology and Cell countson 05-26-2022 HbA1c (Bld) [Mass fraction] 8.1 % [facility] Work Phone: Basophil percentageon 2021 Bilirubin [Mass/Vol] 0.40 mg/dL 0.20-1.00 [facility] Work Phone: Comment on above: For patients on eltr ombopag therapy, use of Dimension Kirksey TBIL is not recommended. Chloride [Moles/Vol] 100 mmol/L 98-107 [facility] Work Phone: Glucose [Mass/Vol] 432 mg/dL 74-106 [facility] Work Phone: Comment on above: Glucose result great er than or equal to 200 mg/dLsuggests DIABETES MELLITUS per A.D.A. criteria. Potassium [Moles/Vol] 5.2 mmol/L 3.5-5.1 [facility] Work Phone: Protein [Mass/Vol] 6.8 g/dL 6.4-8.2 [facility] Work Phone: Sodium [Moles/Vol] 136 mmol/L 136-145 [facility] Work Phone: Laboratory - Chemistry and C hemistry - challengeon 04-23-2022 ALP [Catalytic activity/Vol] 109 U/L 45-117 [facility] Work Phone: ALT [Catalytic activity/Vol] 20 U/L 13-56 [facility] Work Phone: CO2 [Moles/Vol] 27.0 mmol/L 21.0-32.0 [facility] Work Phone: Free T4 [Mass/Vol] 2.03 ng/dL 0.76-1.46 [facility] Work Phone: Globulin (S) [Mass/Vol] 3.9 g/dL 2.2-4.2 [facility] Work Phone: Urea nitrogen/Creatinine [Mass ratio] 25.2 mg/mg 10-20 [facility] Work Phone: Laboratory - Hematology and Cell countson 04-23-2022 HbA1c (Bld) [Mass fraction] 8.2 % [facility] Work Phone: No Panel Informationon 04-23 Estimated GFR (MDRD) Amer 56 mL/min >60 [facility] Work Phone: Comment on above: GFR Calc Estimated GFR (MDRD) Non-Af Amer 47 mL/min >60 [facility] Work Phone: Comment on above: Non- GFR Calc Thyroid Stimulating Hormone (TSH) 0.01 uIU/mL 0.358-3.74 [facility] Work Phone: Vitamin D 25-Hydroxy 21.1 ng/mL [facility] Work Phone: Comment on above: Vitamin D 25(OH) Sta tus Range Deficiency <20 ng/mL (50nmol/L) Insufficiency 20 - 30 ng/mL (50 - 75 nmol/L) Sufficiency 30 - 100 ng/mL (75 - 250 nmol/L) Toxicity >100 ng/mL (>250 nmol/L) Serum or plasma albumin jaylen urement (mass/volume)on 04-23-2022 Albumin [Mass/Vol] 2.9 g/dL 3.2-5.0 [facility] Work Phone: Serum or plasma albumin/glob ulin mass ratioon 04-23-2022 Albumin/Globulin [Mass ratio] 0.7 {ratio} 0.9-2.4 [facility] Work Phone: Serum or plasma calcium jaylen urement (mass/volume)on 04-23-2022 Calcium [Mass/Vol] 8.8 mg/dL 8.5-10.1 [facility] Work Phone: Serum or plasma creatinine m easurement (mass/volume)on 04-23-2022 Creatinine [Mass/Vol] 1.19 mg/dL 0.55-1.02 [facility] Work Phone: Comment on above: The validity of the calculated GFR & GFRAA in patients over 70 years has not been determined. Clinical correlation is essential. Serum or plasma urea nitroge n measurement (mass/volume)on 04-23-2022 Urea nitrogen [Mass/Vol] 30 mg/dL 7-18 [facility] Work Phone: Thin prep Papanicolaou smear with manual screeningon 04-23-2022 Thin prep Papanicolaou smear with manual screening 15 U/L 15-37 [facility] Work Phone: Thin prep Papanicolaou smear with manual screening 9 5-15 [facility] Work Phone: Blood Glucose , Office [phone])Ordered By: Taylor Thrasher on 02-11-2022 Glucose Glucometer (BldC) [Moles/Vol] 239 1 Normal [facility] Work Phone: HgA1C , Office ([phone])Ordere d By: Taylor Thrasher on 02-11-2022 HbA1c (Bld) [Mass fraction] 10.9 % Abnormal 4.6 - 7.1 [facility] Work Phone: Absolute lymphocyte counton 02-10-2022 Lymphocytes Auto (Unsp spec) [#/Vol] 2.06 10*3/uL 0.83-4.51 [facility] Work Phone: Basophil percentageon 2021 Basophils/100 WBC (Bld) 0.9 % 0-1 [facility] Work Phone: Chloride [Moles/Vol] 97 mmol/L 98-107 [facility] Work Phone: Eosinophils/100 WBC (Bld) 1.3 % 0-5 [facility] Work Phone: Glucose [Mass/Vol] 439 mg/dL 74-106 [facility] Work Phone: Comment on above: Glucose result great er than or equal to 200 mg/dLsuggests DIABETES MELLITUS per A.D.A. criteria. Neutrophils (Bld) [#/Vol] 7.5 10*3/uL 2.0-7.7 [facility] Work Phone: Neutrophils/100 WBC (Bld) 71.2 % 47-70 [facility] Work Phone: Potassium [Moles/Vol] 4.6 mmol/L 3.5-5.1 [facility] Work Phone: Sodium [Moles/Vol] 131 mmol/L 136-145 [facility] Work Phone: WBC (Bld) [#/Vol] 10.6 10*3/uL 4.4-11.0 [facility] Work Phone: Blood erythrocytes count (nu mber/volume)on 02-10-2022 RBC (Bld) [#/Vol] 4.48 10*6/uL 4.2-5.4 [facility] Work Phone: Blood hemoglobin measurement (mass/volume)on 02-10-2022 Hemoglobin (Bld) [Mass/Vol] 12.8 g/dL 12.0-15.0 [facility] Work Phone: Blood lymphocytes/100 leukoc yteson 02-10-2022 Lymphocytes/100 WBC (Bld) 19.5 % 19-41 [facility] Work Phone: Blood monocytes/100 leukocyt eson 02-10-2022 Monocytes/100 WBC (Bld) 6.4 % 0-10 [facility] Work Phone: Blood platelet mean volumeon 02-10-2022 Platelet mean volume (Bld) [Entitic vol] 11.8 fL 6.2-12.0 [facility] Work Phone: Determination of erythrocyte mean corpuscular volume (MCV)on 02-10-2022 MCV (RBC) [Entitic vol] 88.6 fL 81-99 [facility] Work Phone: Glucose Glucometer (BldC) [M ass/Vol]on 02-10-2022 Glucose [Mass/Vol] 311 mg/dL 74-106 [facility] Work Phone: Comment on above: MANAGEMENT OF PATIEN T CARE PER NURSING PROTOCOL Hematocrit Auto (Bld) [Volum e fraction]on 02-10-2022 Hematocrit (Bld) [Volume fraction] 39.7 % 37-47 [facility] Work Phone: Laboratory - Chemistry and C hemistry - challengeon 02-10-2022 CO2 [Moles/Vol] 24.0 mmol/L 21.0-32.0 [facility] Work Phone: Urea nitrogen/Creatinine [Mass ratio] 28.6 mg/mg 08-12 [facility] Work Phone: Laboratory - Hematology and Cell countson 02-10-2022 Erythrocyte distribution width (RBC) [Entitic vol] 52.5 fL 35.1-43.9 [facility] Work Phone: Erythrocyte distribution width (RBC) [Ratio] 16.1 % 11.6-14.6 [facility] Work Phone: Immature granulocytes/100 WBC (Bld) 0.700 % 0.0-0.9 [facility] Work Phone: Comment on above: IG% - Immature Granu locytes (promyelocytes, myelocytes and metamyelocytes) > 1% indicates that a LEFT SHIFT is Present. MCH (RBC) [Entitic mass] 28.6 pg 27.0-32.0 [facility] Work Phone: Nucleated RBC/100 WBC (Bld) [Ratio] 0 % 0-5 [facility] Work Phone: MCHC Auto (RBC) [Mass/Vol]on 02-10-2022 MCHC (RBC) [Mass/Vol] 32.2 g/dL 32-36 [facility] Work Phone: No Panel Informationon 02-10 Estimated Creatinine Clearance Calc 35.75 ml/min [facility] Work Phone: Estimated GFR (MDRD) Amer 60 mL/min >60 [facility] Work Phone: Comment on above: GFR Calc Estimated GFR (MDRD) Non-Af Amer 50 mL/min >60 [facility] Work Phone: Comment on above: Non- GFR Calc Platelets bldon 02-10-2022 Platelets (Bld) [#/Vol] 355 10*3/uL 150-450 [facility] Work Phone: Serum or plasma calcium jaylen urement (mass/volume)on 02-10-2022 Calcium [Mass/Vol] 8.6 mg/dL 8.5-10.1 [facility] Work Phone: Serum or plasma creatinine m easurement (mass/volume)on 02-10-2022 Creatinine [Mass/Vol] 1.12 mg/dL 0.55-1.02 [facility] Work Phone: Comment on above: The validity of the calculated GFR & GFRAA in patients over 70 years has not been determined. Clinical correlation is essential. Serum or plasma urea nitroge n measurement (mass/volume)on 02-10-2022 Urea nitrogen [Mass/Vol] 32 mg/dL 7-18 [facility] Work Phone: Thin prep Papanicolaou smear with manual screeningon 02-10-2022 Thin prep Papanicolaou smear with manual screening 10 5-15 [facility] Work Phone: Basophil percentageon 2021 Cholesterol [Mass/Vol] 179 mg/dL <200 [facility] Work Phone: Comment on above: <200 mg/dL Desirable 200-240 mg/dL Borderline >240 mg/dL High Risk Triglyceride [Mass/Vol] 82 mg/dL <199 [facility] Work Phone: Comment on above: The drugs N-Acetylcy steine and Metamizole may falsely depress this assay.Serum Triglycerides Reference Interval Normal <150 mg/dL Borderline high 150 - 199 mg/dL High 200 - 499 mg/dL Very High > or = 500 mg/dL No Panel Informationon 02-08 Free Triiodothyronine (T3) pg/dL 1.4 pg/mL 2.18-3.98 [facility] Work Phone: Serum or plasma cholesterol in HDL measurement (mass/volume)on 02-08-2022 Cholesterol in HDL [Mass/Vol] 58 mg/dL >40 [facility] Work Phone: Comment on above: The drugs N-Acetylcy steine and Metamizole may falsely depress this assay. Reference Range HDL <40 mg/dL Low HDL Cholesterol HDL >or= 60 mg/dL High HDL Cholesterol Serum or plasma cholesterol in VLDL measurement (mass/volume)on 02-08-2022 Cholesterol in VLDL [Mass/Vol] 16 mg/dL 5-40 [facility] Work Phone: Serum or plasma low density lipoprotein (LDL) cholesterol measurement (mass/volume)on 02-08-2022 Cholesterol in LDL [Mass/Vol] 105 mg/dL 0-130 [facility] Work Phone: Basophil percentageon 2021 Basophil percentage 2.9 mg/dL 2.5-4.9 [facility] Work Phone: Bilirubin [Mass/Vol] 0.60 mg/dL 0.20-1.00 [facility] Work Phone: Comment on above: For patients on eltr ombopag therapy, use of Dimension Kirksey TBIL is not recommended. Protein [Mass/Vol] 5.2 g/dL 6.4-8.2 [facility] Work Phone: Laboratory - Chemistry and C hemistry - challengeon 02-07-2022 ALP [Catalytic activity/Vol] 87 U/L 45-117 [facility] Work Phone: ALT [Catalytic activity/Vol] 22 U/L 13-56 [facility] Work Phone: Globulin (S) [Mass/Vol] 2.9 g/dL 2.2-4.2 [facility] Work Phone: Magnesium [Mass/Vol] 1.9 mg/dL 1.6-2.6 [facility] Work Phone: Serum or plasma albumin jaylen urement (mass/volume)on 02-07-2022 Albumin [Mass/Vol] 2.3 g/dL 3.2-5.0 [facility] Work Phone: Serum or plasma albumin/glob ulin mass ratioon 02-07-2022 Albumin/Globulin [Mass ratio] 0.8 {ratio} 0.9-2.4 [facility] Work Phone: Thin prep Papanicolaou smear with manual screeningon 02-07-2022 Thin prep Papanicolaou smear with manual screening 13 U/L 15-37 [facility] Work Phone: Absolute lymphocyte counton 02-06-2022 Lymphocytes Auto (Unsp spec) [#/Vol] 0.40 10*3/uL 0.83-4.51 [facility] Work Phone: Basophil percentageon 2021 Chloride [Moles/Vol] 102 mmol/L 98-107 [facility] Work Phone: Glucose [Mass/Vol] 401 mg/dL 74-106 [facility] Work Phone: Comment on above: Glucose result great er than or equal to 200 mg/dLsuggests DIABETES MELLITUS per A.D.A. criteria. Potassium [Moles/Vol] 4.1 mmol/L 3.5-5.1 [facility] Work Phone: Sodium [Moles/Vol] 135 mmol/L 136-145 [facility] Work Phone: Basophil percentage 0 SEEN /hpf 0-5 [facility] Work Phone: Basophils/100 WBC (Bld) 0.4 % 0-1 [facility] Work Phone: Bilirubin [Mass/Vol] 0.50 mg/dL 0.20-1.00 [facility] Work Phone: Comment on above: For patients on eltr ombopag therapy, use of Dimension Kirksey TBIL is not recommended. Eosinophils/100 WBC (Bld) 0.1 % 0-5 [facility] Work Phone: Neutrophils (Bld) [#/Vol] 8.7 10*3/uL 2.0-7.7 [facility] Work Phone: Neutrophils/100 WBC (Bld) 87.3 % 47-70 [facility] Work Phone: Protein [Mass/Vol] 5.6 g/dL 6.4-8.2 [facility] Work Phone: WBC (Bld) [#/Vol] 9.9 10*3/uL 4.4-11.0 [facility] Work Phone: Bilirubin Test strip Ql (U)o n 02-06-2022 Bilirubin Ql (U) Negative Negative [facility] Work Phone: Blood erythrocytes count (nu mber/volume)on 02-06-2022 RBC (Bld) [#/Vol] 4.34 10*6/uL 4.2-5.4 [facility] Work Phone: Blood hemoglobin measurement (mass/volume)on 02-06-2022 Hemoglobin (Bld) [Mass/Vol] 12.2 g/dL 12.0-15.0 [facility] Work Phone: Blood lymphocytes/100 leukoc yteson 02-06-2022 Lymphocytes/100 WBC (Bld) 4.0 % 19-41 [facility] Work Phone: Blood manual differential co mment interpretation (narrative result)on 02-06-2022 Manual differential comment Duglas (Bld) [Interp] SCANNED [facility] Work Phone: Blood monocytes/100 leukocyt eson 02-06-2022 Monocytes/100 WBC (Bld) 7.4 % 0-10 [facility] Work Phone: Blood platelet mean volumeon 02-06-2022 Platelet mean volume (Bld) [Entitic vol] 11.4 fL 6.2-12.0 [facility] Work Phone: Determination of erythrocyte mean corpuscular volume (MCV)on 02-06-2022 MCV (RBC) [Entitic vol] 88.5 fL 81-99 [facility] Work Phone: Glucose Glucometer (BldC) [M ass/Vol]on 02-06-2022 Glucose [Mass/Vol] 446 mg/dL 74-106 [facility] Work Phone: Comment on above: Dr Delma Barraza NAGEMENT OF PATIENT CARE PER NURSING PROTOCOL Hematocrit Auto (Bld) [Volum e fraction]on 02-06-2022 Hematocrit (Bld) [Volume fraction] 38.4 % 37-47 [facility] Work Phone: Ketones Test strip Ql (U)on 02-06-2022 Ketones Ql (U) 50 mg/dl Negative [facility] Work Phone: Laboratory - Chemistry and C hemistry - challengeon 02-06-2022 CO2 [Moles/Vol] 25.0 mmol/L 21.0-32.0 [facility] Work Phone: Urea nitrogen/Creatinine [Mass ratio] 25.2 mg/mg 10-20 [facility] Work Phone: ALP [Catalytic activity/Vol] 99 U/L 45-117 [facility] Work Phone: ALT [Catalytic activity/Vol] 25 U/L 13-56 [facility] Work Phone: Globulin (S) [Mass/Vol] 3.0 g/dL 2.2-4.2 [facility] Work Phone: Magnesium [Mass/Vol] 2.3 mg/dL 1.6-2.6 [facility] Work Phone: Laboratory - Hematology and Cell countson 02-06-2022 Erythrocyte distribution width (RBC) [Entitic vol] 51.8 fL 35.1-43.9 [facility] Work Phone: Erythrocyte distribution width (RBC) [Ratio] 15.8 % 11.6-14.6 [facility] Work Phone: Immature granulocytes/100 WBC (Bld) 0.800 % 0.0-0.9 [facility] Work Phone: Comment on above: IG% - Immature Granu locytes (promyelocytes, myelocytes and metamyelocytes) > 1% indicates that a LEFT SHIFT is Present. MCH (RBC) [Entitic mass] 28.1 pg 27.0-32.0 [facility] Work Phone: Nucleated RBC/100 WBC (Bld) [Ratio] 0 % 0-5 [facility] Work Phone: MCHC Auto (RBC) [Mass/Vol]on 02-06-2022 MCHC (RBC) [Mass/Vol] 31.8 g/dL 32-36 [facility] Work Phone: Mucus LM Ql (Urine sed)on Mucus Ql (Urine sed) 0 SEEN /hpf [facility] Work Phone: Nitrite Test strip Ql (U)on 02-06-2022 Nitrite Ql (U) Positive Negative [facility] Work Phone: No Panel Informationon 02-06 Estimated Creatinine Clearance Calc 26.51 ml/min [facility] Work Phone: Estimated GFR (MDRD) Amer 43 mL/min >60 [facility] Work Phone: Comment on above: GFR Calc Estimated GFR (MDRD) Non-Af Amer 35 mL/min >60 [facility] Work Phone: Comment on above: Non- GFR Calc Platelets bldon 02-06-2022 Platelets (Bld) [#/Vol] 294 10*3/uL 150-450 [facility] Work Phone: Protein Test strip Ql (U)on 02-06-2022 Protein Ql (U) Negative Negative [facility] Work Phone: Serum or plasma acetone jaylen urement (mass/volume)on 02-06-2022 Acetone [Mass/Vol] SMALL NEG [facility] Work Phone: Serum or plasma albumin jaylen urement (mass/volume)on 02-06-2022 Albumin [Mass/Vol] 2.6 g/dL 3.2-5.0 [facility] Work Phone: Serum or plasma albumin/glob ulin mass ratioon 02-06-2022 Albumin/Globulin [Mass ratio] 0.9 {ratio} 0.9-2.4 [facility] Work Phone: Serum or plasma calcium jaylen urement (mass/volume)on 02-06-2022 Calcium [Mass/Vol] 8.7 mg/dL 8.5-10.1 [facility] Work Phone: Serum or plasma creatinine m easurement (mass/volume)on 02-06-2022 Creatinine [Mass/Vol] 1.51 mg/dL 0.55-1.02 [facility] Work Phone: Comment on above: The validity of the calculated GFR & GFRAA in patients over 70 years has not been determined. Clinical correlation is essential. Serum or plasma urea nitroge n measurement (mass/volume)on 02-06-2022 Urea nitrogen [Mass/Vol] 38 mg/dL 7-18 [facility] Work Phone: Squamous epithelial cells de tection in urine sediment by light microscopyon 02-06-2022 Epithelial cells.squamous LM Ql (Urine sed) 0-5 SEEN /hpf 5-10 [facility] Work Phone: Thin prep Papanicolaou smear with manual screeningon 02-06-2022 Thin prep Papanicolaou smear with manual screening 8 5-15 [facility] Work Phone: Thin prep Papanicolaou smear with manual screening 15 U/L 15-37 [facility] Work Phone: Urine blood detectionon 01-22 RBC Ql (U) Negative Negative [facility] Work Phone: RBC Ql (U) 0 SEEN /hpf 0-5 [facility] Work Phone: Urine clarityon 02-06-2022 Clarity (U) Clear Clear [facility] Work Phone: Urine color determinationon 02-06-2022 Color (U) Yellow Yellow [facility] Work Phone: Urine glucose detectionon Glucose Ql (U) 1000 mg/dl Normal [facility] Work Phone: Urine leukocyte esterase det ection by dipstickon 02-06-2022 Leukocyte esterase Test strip Ql (U) Negative Negative [facility] Work Phone: Urine pHon 02-06-2022 pH (U) 5.0 [pH] 5.0 - 8.0 [facility] Work Phone: Urine sediment bacteria coun t by microscopy (number/high power field)on 02-06-2022 Bacteria LM.HPF (Urine sed) [#/Area] 2 /[HPF] None Seen [facility] Work Phone: Urine specific gravity measu rementon 02-06-2022 Specific gravity (U) [Rel density] 1.015 1.002-1.03 0 [facility] Work Phone: Urobilinogen Auto test strip Ql (U)on 02-06-2022 Urobilinogen Ql (U) Normal mg/dl Normal [facility] Work Phone: Absolute lymphocyte counton 01-30-2022 Lymphocytes Auto (Unsp spec) [#/Vol] 1.82 10*3/uL 0.83-4.51 [facility] Work Phone: Basophil percentageon 2021 Basophils/100 WBC (Bld) 0.4 % 0-1 [facility] Work Phone: Bilirubin [Mass/Vol] 0.70 mg/dL 0.20-1.00 [facility] Work Phone: Comment on above: For patients on eltr ombopag therapy, use of Dimension Kirksey TBIL is not recommended. Chloride [Moles/Vol] 104 mmol/L 98-107 [facility] Work Phone: Eosinophils/100 WBC (Bld) 0.9 % 0-5 [facility] Work Phone: Glucose [Mass/Vol] 225 mg/dL 74-106 [facility] Work Phone: Comment on above: Glucose result great er than or equal to 200 mg/dLsuggests DIABETES MELLITUS per A.D.A. criteria. Neutrophils (Bld) [#/Vol] 7.3 10*3/uL 2.0-7.7 [facility] Work Phone: Neutrophils/100 WBC (Bld) 72.9 % 47-70 [facility] Work Phone: Potassium [Moles/Vol] 3.6 mmol/L 3.5-5.1 [facility] Work Phone: Protein [Mass/Vol] 5.3 g/dL 6.4-8.2 [facility] Work Phone: Sodium [Moles/Vol] 136 mmol/L 136-145 [facility] Work Phone: WBC (Bld) [#/Vol] 10.0 10*3/uL 4.4-11.0 [facility] Work Phone: Blood erythrocytes count (nu mber/volume)on 01-30-2022 RBC (Bld) [#/Vol] 4.15 10*6/uL 4.2-5.4 [facility] Work Phone: Blood hemoglobin measurement (mass/volume)on 01-30-2022 Hemoglobin (Bld) [Mass/Vol] 11.7 g/dL 12.0-15.0 [facility] Work Phone: Blood lymphocytes/100 leukoc yteson 01-30-2022 Lymphocytes/100 WBC (Bld) 18.2 % 19-41 [facility] Work Phone: Blood monocytes/100 leukocyt eson 01-30-2022 Monocytes/100 WBC (Bld) 7.3 % 0-10 [facility] Work Phone: Blood platelet mean volumeon 01-30-2022 Platelet mean volume (Bld) [Entitic vol] 12.0 fL 6.2-12.0 [facility] Work Phone: Determination of erythrocyte mean corpuscular volume (MCV)on 01-30-2022 MCV (RBC) [Entitic vol] 86.3 fL 81-99 [facility] Work Phone: Glucose Glucometer (BldC) [M ass/Vol]on 01-30-2022 Glucose [Mass/Vol] 254 mg/dL 74-106 [facility] Work Phone: Comment on above: MANAGEMENT OF PATIEN T CARE PER NURSING PROTOCOL Hematocrit Auto (Bld) [Volum e fraction]on 01-30-2022 Hematocrit (Bld) [Volume fraction] 35.8 % 37-47 [facility] Work Phone: Laboratory - Chemistry and C hemistry - challengeon 01-30-2022 ALP [Catalytic activity/Vol] 88 U/L 45-117 [facility] Work Phone: ALT [Catalytic activity/Vol] 16 U/L 13-56 [facility] Work Phone: CO2 [Moles/Vol] 25.0 mmol/L 21.0-32.0 [facility] Work Phone: Globulin (S) [Mass/Vol] 2.8 g/dL 2.2-4.2 [facility] Work Phone: Urea nitrogen/Creatinine [Mass ratio] 21.9 mg/mg 10-20 [facility] Work Phone: Laboratory - Hematology and Cell countson 01-30-2022 Erythrocyte distribution width (RBC) [Entitic vol] 52.7 fL 35.1-43.9 [facility] Work Phone: Erythrocyte distribution width (RBC) [Ratio] 16.8 % 11.6-14.6 [facility] Work Phone: Immature granulocytes/100 WBC (Bld) 0.300 % 0.0-0.9 [facility] Work Phone: Comment on above: IG% - Immature Granu locytes (promyelocytes, myelocytes and metamyelocytes) > 1% indicates that a LEFT SHIFT is Present. MCH (RBC) [Entitic mass] 28.2 pg 27.0-32.0 [facility] Work Phone: Nucleated RBC/100 WBC (Bld) [Ratio] 0 % 0-5 [facility] Work Phone: MCHC Auto (RBC) [Mass/Vol]on 01-30-2022 MCHC (RBC) [Mass/Vol] 32.7 g/dL 32-36 [facility] Work Phone: No Panel Informationon 01-30 Estimated Creatinine Clearance Calc 48.83 ml/min [facility] Work Phone: Estimated GFR (MDRD) Amer 86 mL/min >60 [facility] Work Phone: Comment on above: GFR Calc Estimated GFR (MDRD) Non-Af Amer 71 mL/min >60 [facility] Work Phone: Comment on above: Non- GFR Calc Platelets bldon 01-30-2022 Platelets (Bld) [#/Vol] 255 10*3/uL 150-450 [facility] Work Phone: Serum or plasma albumin jaylen urement (mass/volume)on 01-30-2022 Albumin [Mass/Vol] 2.5 g/dL 3.2-5.0 [facility] Work Phone: Serum or plasma albumin/glob ulin mass ratioon 01-30-2022 Albumin/Globulin [Mass ratio] 0.9 {ratio} 0.9-2.4 [facility] Work Phone: Serum or plasma calcium jaylen urement (mass/volume)on 01-30-2022 Calcium [Mass/Vol] 8.1 mg/dL 8.5-10.1 [facility] Work Phone: Serum or plasma creatinine m easurement (mass/volume)on 01-30-2022 Creatinine [Mass/Vol] 0.82 mg/dL 0.55-1.02 [facility] Work Phone: Comment on above: The validity of the calculated GFR & GFRAA in patients over 70 years has not been determined. Clinical correlation is essential. Serum or plasma urea nitroge n measurement (mass/volume)on 01-30-2022 Urea nitrogen [Mass/Vol] 18 mg/dL 7-18 [facility] Work Phone: Thin prep Papanicolaou smear with manual screeningon 01-30-2022 Thin prep Papanicolaou smear with manual screening 9 U/L 15-37 [facility] Work Phone: Thin prep Papanicolaou smear with manual screening 7 5-15 [facility] Work Phone: Absolute lymphocyte counton 01-29-2022 Lymphocytes Auto (Unsp spec) [#/Vol] 1.96 10*3/uL 0.83-4.51 [facility] Work Phone: Basophil percentageon 2021 Basophil percentage 2.3 mg/dL 2.5-4.9 [facility] Work Phone: Basophils/100 WBC (Bld) 0.4 % 0-1 [facility] Work Phone: Bilirubin [Mass/Vol] 0.60 mg/dL 0.20-1.00 [facility] Work Phone: Comment on above: For patients on eltr ombopag therapy, use of Dimension [place] TBIL is not recommended. Chloride [Moles/Vol] 110 mmol/L 98-107 [facility] Work Phone: Eosinophils/100 WBC (Bld) 0.2 % 0-5 [facility] Work Phone: Glucose [Mass/Vol] 148 mg/dL 74-106 [facility] Work Phone: Comment on above: Fasting Glucose resu lt greater than or equal to 126 mg/dL suggests DIABETES MELLITUS per A.D.A. criteria. Neutrophils (Bld) [#/Vol] 13.9 10*3/uL 2.0-7.7 [facility] Work Phone: Neutrophils/100 WBC (Bld) 82.3 % 47-70 [facility] Work Phone: Potassium [Moles/Vol] 3.4 mmol/L 3.5-5.1 [facility] Work Phone: Protein [Mass/Vol] 5.1 g/dL 6.4-8.2 [facility] Work Phone: Sodium [Moles/Vol] 140 mmol/L 136-145 [facility] Work Phone: WBC (Bld) [#/Vol] 16.9 10*3/uL 4.4-11.0 [facility] Work Phone: Blood erythrocytes count (nu mber/volume)on 01-29-2022 RBC (Bld) [#/Vol] 3.98 10*6/uL 4.2-5.4 [facility] Work Phone: Blood hemoglobin measurement (mass/volume)on 01-29-2022 Hemoglobin (Bld) [Mass/Vol] 11.3 g/dL 12.0-15.0 [facility] Work Phone: Blood lymphocytes/100 leukoc yteson 01-29-2022 Lymphocytes/100 WBC (Bld) 11.6 % 19-41 [facility] Work Phone: Blood monocytes/100 leukocyt eson 01-29-2022 Monocytes/100 WBC (Bld) 5.1 % 0-10 [facility] Work Phone: Blood platelet mean volumeon 01-29-2022 Platelet mean volume (Bld) [Entitic vol] 11.5 fL 6.2-12.0 [facility] Work Phone: Determination of erythrocyte mean corpuscular volume (MCV)on 01-29-2022 MCV (RBC) [Entitic vol] 85.4 fL 81-99 [facility] Work Phone: Glucose Glucometer (dC) [M ass/Vol]on 01-29-2022 Glucose [Mass/Vol] 384 mg/dL 74-106 [facility] Work Phone: Comment on above: MANAGEMENT OF PATIEN T CARE PER NURSING PROTOCOL Glucose [Mass/Vol] 162 mg/dL 74-106 [facility] Work Phone: Comment on above: MANAGEMENT OF PATIEN T CARE PER NURSING PROTOCOL Hematocrit Auto (Bld) [Volum e fraction]on 01-29-2022 Hematocrit (Bld) [Volume fraction] 34.0 % 37-47 [facility] Work Phone: Laboratory - Chemistry and C hemistry - challengeon 01-29-2022 ALP [Catalytic activity/Vol] 88 U/L 45-117 [facility] Work Phone: ALT [Catalytic activity/Vol] 17 U/L 13-56 [facility] Work Phone: CO2 [Moles/Vol] 24.0 mmol/L 21.0-32.0 [facility] Work Phone: Free T4 [Mass/Vol] 0.76 ng/dL 0.76-1.46 [facility] Work Phone: Globulin (S) [Mass/Vol] 2.7 g/dL 2.2-4.2 [facility] Work Phone: Magnesium [Mass/Vol] 1.8 mg/dL 1.6-2.6 [facility] Work Phone: Urea nitrogen/Creatinine [Mass ratio] 26.6 mg/mg 10-20 [facility] Work Phone: Laboratory - Hematology and Cell countson 01-29-2022 Erythrocyte distribution width (RBC) [Entitic vol] 51.6 fL 35.1-43.9 [facility] Work Phone: Erythrocyte distribution width (RBC) [Ratio] 16.5 % 11.6-14.6 [facility] Work Phone: Immature granulocytes/100 WBC (Bld) 0.400 % 0.0-0.9 [facility] Work Phone: Comment on above: IG% - Immature Granu locytes (promyelocytes, myelocytes and metamyelocytes) > 1% indicates that a LEFT SHIFT is Present. MCH (RBC) [Entitic mass] 28.4 pg 27.0-32.0 [facility] Work Phone: Nucleated RBC/100 WBC (Bld) [Ratio] 0 % 0-5 [facility] Work Phone: MCHC Auto (RBC) [Mass/Vol]on 01-29-2022 MCHC (RBC) [Mass/Vol] 33.2 g/dL 32-36 [facility] Work Phone: No Panel Informationon 01-29 Estimated Creatinine Clearance Calc 40.85 ml/min [facility] Work Phone: Estimated GFR (MDRD) Amer 71 mL/min >60 [facility] Work Phone: Comment on above: GFR Calc Estimated GFR (MDRD) Non-Af Amer 58 mL/min >60 [facility] Work Phone: Comment on above: Non- GFR Calc Thyroid Stimulating Hormone (TSH) 57.30 uIU/mL 0.358-3.74 [facility] Work Phone: Platelets bldon 01-29-2022 Platelets (Bld) [#/Vol] 267 10*3/uL 150-450 [facility] Work Phone: Serum or plasma albumin jaylen urement (mass/volume)on 01-29-2022 Albumin [Mass/Vol] 2.4 g/dL 3.2-5.0 [facility] Work Phone: Serum or plasma albumin/glob ulin mass ratioon 01-29-2022 Albumin/Globulin [Mass ratio] 0.9 {ratio} 0.9-2.4 [facility] Work Phone: Serum or plasma calcium jaylen urement (mass/volume)on 01-29-2022 Calcium [Mass/Vol] 7.7 mg/dL 8.5-10.1 [facility] Work Phone: Serum or plasma creatinine m easurement (mass/volume)on 01-29-2022 Creatinine [Mass/Vol] 0.98 mg/dL 0.55-1.02 [facility] Work Phone: Comment on above: The validity of the calculated GFR & GFRAA in patients over 70 years has not been determined. Clinical correlation is essential. Serum or plasma urea nitroge n measurement (mass/volume)on 01-29-2022 Urea nitrogen [Mass/Vol] 26 mg/dL 7-18 [facility] Work Phone: Thin prep Papanicolaou smear with manual screeningon 01-29-2022 Thin prep Papanicolaou smear with manual screening 11 U/L 15-37 [facility] Work Phone: Thin prep Papanicolaou smear with manual screening 6 5-15 [facility] Work Phone: Basophil percentageon 2021 Basophil percentage 0-5 SEEN /hpf 0-5 [facility] Work Phone: Bilirubin Test strip Ql (U)o n 01-28-2022 Bilirubin Ql (U) Negative Negative [facility] Work Phone: Blood band neutrophil count as percentage of total leukocyteson 01-28-2022 Band form neutrophils/100 WBC (Bld) 2 % 0-5 [facility] Work Phone: Blood lymphocytes/100 leukoc yteson 01-28-2022 Lymphocytes/100 WBC (Bld) 6 % 19-41 [facility] Work Phone: Blood monocytes/100 leukocyt eson 01-28-2022 Monocytes/100 WBC (Bld) 2 % 0-10 [facility] Work Phone: Blood platelet adequacy dete ction by light microscopyon 01-28-2022 Platelets LM Ql (Bld) ADEQUATE ADEQ [facility] Work Phone: Blood segmented neutrophils/ 100 leukocyteson 01-28-2022 Segmented neutrophils/100 WBC (Bld) 90 % 47-70 [facility] Work Phone: Ketones Test strip Ql (U)on 01-28-2022 Ketones Ql (U) 50 mg/dl Negative [facility] Work Phone: Laboratory - Hematology and Cell countson 01-28-2022 Anisocytosis Ql (Bld) 1+ [facility] Work Phone: Laboratory - Microbiology an d Antimicrobial susceptibilityon 01-28-2022 Bacteria identified Cx Nom (Bld) No growth in 5 days. [facility] Work Phone: Mucus LM Ql (Urine sed)on Mucus Ql (Urine sed) 0 SEEN /hpf [facility] Work Phone: Nitrite Test strip Ql (U)on 01-28-2022 Nitrite Ql (U) Negative Negative [facility] Work Phone: Protein Test strip Ql (U)on 01-28-2022 Protein Ql (U) 15 mg/dl Negative [facility] Work Phone: Review by pathologiston Pathologist review Duglas (Unsp spec) [Interp] Reviewed [facility] Work Phone: Comment on above: Previous reported re sult: Diana madrid Edited by: RGOLEILA on 01/28/22:1131Neutrophilic leukocytosis.Clinical correlation necessary.Arun Kilgore M.D. 01/28/22 AMENDED REPORT 01/28/22 1131 PATH REV previously reported as: Diana madrid Squamous epithelial cells de tection in urine sediment by light microscopyon 01-28-2022 Epithelial cells.squamous LM Ql (Urine sed) 0-5 SEEN /hpf 5-10 [facility] Work Phone: Total cell counton 2 Cells counted Molgen (Bld/Tiss) [#] 100 MANUAL DIFF [facility] Work Phone: Urine blood detectionon RBC Ql (U) 10 /ul Negative [facility] Work Phone: RBC Ql (U) 0 SEEN /hpf 0-5 [facility] Work Phone: Urine clarityon 01-28-2022 Clarity (U) Clear Clear [facility] Work Phone: Urine color determinationon 01-28-2022 Color (U) Yellow Yellow [facility] Work Phone: Urine glucose detectionon Glucose Ql (U) 1000 mg/dl Normal [facility] Work Phone: Urine leukocyte esterase det ection by dipstickon 01-28-2022 Leukocyte esterase Test strip Ql (U) 25 /ul Negative [facility] Work Phone: Urine pHon 01-28-2022 pH (U) 5.0 [pH] 5.0 - 8.0 [facility] Work Phone: Urine sediment bacteria coun t by microscopy (number/high power field)on 01-28-2022 Bacteria LM.HPF (Urine sed) [#/Area] 1 /[HPF] None Seen [facility] Work Phone: Urine specific gravity measu rementon 01-28-2022 Specific gravity (U) [Rel density] 1.025 1.002-1.03 0 [facility] Work Phone: Urobilinogen Auto test strip Ql (U)on 01-28-2022 Urobilinogen Ql (U) Normal mg/dl Normal [facility] Work Phone: Whole blood hemoglobin A1c/t otal hemoglobin ratio (mass fraction)on 01-28-2022 HbA1c (Bld) [Mass fraction] 11.7 % 3.8-5.6 [facility] Work Phone: Comment on above: Normal < 5.7 % Predi abetic 5.7 - 6.4 % Diabetic >or= 6.5 % Please note range changes. Absolute lymphocyte counton 01-27-2022 Lymphocytes Auto (Unsp spec) [#/Vol] 0.82 10*3/uL 0.83-4.51 [facility] Work Phone: Basophil percentageon 2021 Chloride [Moles/Vol] 94 mmol/L 98-107 [facility] Work Phone: Glucose [Mass/Vol] 842 mg/dL 74-106 [facility] Work Phone: Comment on above: Critical Result(s) C alled at: 23:58:30 01/27/2022 by: NAGA Doss RN ER. Results read back by same.Glucose result greater than or equal to 200 mg/dLsuggests DIABETES MELLITUS per A.D.A. criteria. Potassium [Moles/Vol] 6.4 mmol/L 3.5-5.1 [facility] Work Phone: Comment on above: Moderate Hemolysis, Result may be falsely increased. Critical Result(s) Called at: 23:58:14 01/27/2022 by: NAGA GARAY to Richard Doss RN ER. Results read back by same. Sodium [Moles/Vol] 128 mmol/L 136-145 [facility] Work Phone: Basophil percentage 7.0 mg/dL 2.5-4.9 [facility] Work Phone: Basophils/100 WBC (Bld) 0.9 % 0-1 [facility] Work Phone: Eosinophils/100 WBC (Bld) 0.0 % 0-5 [facility] Work Phone: Neutrophils (Bld) [#/Vol] 11.5 10*3/uL 2.0-7.7 [facility] Work Phone: Neutrophils/100 WBC (Bld) 89.7 % 47-70 [facility] Work Phone: WBC (Bld) [#/Vol] 12.8 10*3/uL 4.4-11.0 [facility] Work Phone: Blood erythrocytes count (nu mber/volume)on 01-27-2022 RBC (Bld) [#/Vol] 5.01 10*6/uL 4.2-5.4 [facility] Work Phone: Blood hemoglobin measurement (mass/volume)on 01-27-2022 Hemoglobin (Bld) [Mass/Vol] 14.4 g/dL 12.0-15.0 [facility] Work Phone: Blood lymphocytes/100 leukoc yteson 01-27-2022 Lymphocytes/100 WBC (Bld) 6.4 % 19-41 [facility] Work Phone: Blood monocytes/100 leukocyt eson 01-27-2022 Monocytes/100 WBC (Bld) 1.9 % 0-10 [facility] Work Phone: Blood platelet mean volumeon 01-27-2022 Platelet mean volume (Bld) [Entitic vol] 11.9 fL 6.2-12.0 [facility] Work Phone: Determination of erythrocyte mean corpuscular volume (MCV)on 01-27-2022 MCV (RBC) [Entitic vol] 89.6 fL 81-99 [facility] Work Phone: Glucose Glucometer (BldC) [M ass/Vol]on 01-27-2022 Glucose [Mass/Vol] mg/dL 74-106 [facility] Work Phone: Comment on above: Dr Delma LEVIEMENT OF PATIENT CARE PER NURSING PROTOCOL HCO3 (BldA) [Moles/Vol]on HCO3 (Bld) [Moles/Vol] 15 mmol/L 22-26 [facility] Work Phone: Hematocrit Auto (Bld) [Volum e fraction]on 01-27-2022 Hematocrit (Bld) [Volume fraction] 44.9 % 37-47 [facility] Work Phone: Laboratory - Chemistry and C hemistry - challengeon 01-27-2022 CO2 [Moles/Vol] 13.0 mmol/L 21.0-32.0 [facility] Work Phone: Urea nitrogen/Creatinine [Mass ratio] 21.2 mg/mg 10-20 [facility] Work Phone: CO2 [Moles/Vol] 16 mmol/L 23-33 [facility] Work Phone: Magnesium [Mass/Vol] 2.6 mg/dL 1.6-2.6 [facility] Work Phone: Laboratory - Hematology and Cell countson 01-27-2022 Erythrocyte distribution width (RBC) [Entitic vol] 54.0 fL 35.1-43.9 [facility] Work Phone: Erythrocyte distribution width (RBC) [Ratio] 16.4 % 11.6-14.6 [facility] Work Phone: Immature granulocytes/100 WBC (Bld) 1.100 % 0.0-0.9 [facility] Work Phone: Comment on above: IG% - Immature Granu locytes (promyelocytes, myelocytes and metamyelocytes) > 1% indicates that a LEFT SHIFT is Present. MCH (RBC) [Entitic mass] 28.7 pg 27.0-32.0 [facility] Work Phone: Nucleated RBC/100 WBC (Bld) [Ratio] 0 % 0-5 [facility] Work Phone: MCHC Auto (RBC) [Mass/Vol]on 01-27-2022 MCHC (RBC) [Mass/Vol] 32.1 g/dL 32-36 [facility] Work Phone: No Panel Informationon 01-27 Estimated Creatinine Clearance Calc 21.62 ml/min [facility] Work Phone: Estimated GFR (MDRD) Amer 32 mL/min >60 [facility] Work Phone: Comment on above: GFR Calc Estimated GFR (MDRD) Non-Af Amer 27 mL/min >60 [facility] Work Phone: Comment on above: Non- GFR Calc Bed Mix Venous Bld PCO2 at Pat Temp 31.3 mmHg 41-51 [facility] Work Phone: Blood Gas Specimen Type TRAMAINE [facility] Work Phone: Venous Blood Base Excess -12 mmol/L -1.0-3.5 [facility] Work Phone: Troponin I High Sensitivity 19 pg/mL 3.0-54.0 [facility] Work Phone: Comment on above: Please Note: New Patsy t Units and Gender Specific Reference Ranges. For more information see Policy Stat Procedure [facility] High Sensitivity Troponin (TNIH) and attachments. PO2 venouson 01-27-2022 Oxygen (BldV) [Partial pressure] 66 mm[Hg] 25-40 [facility] Work Phone: Platelets bldon 01-27-2022 Platelets (Bld) [#/Vol] 334 10*3/uL 150-450 [facility] Work Phone: Serum or plasma acetone jaylen urement (mass/volume)on 01-27-2022 Acetone [Mass/Vol] SMALL NEG [facility] Work Phone: Serum or plasma calcium jaylen urement (mass/volume)on 01-27-2022 Calcium [Mass/Vol] 9.2 mg/dL 8.5-10.1 [facility] Work Phone: Serum or plasma creatinine m easurement (mass/volume)on 01-27-2022 Creatinine [Mass/Vol] 1.93 mg/dL 0.55-1.02 [facility] Work Phone: Comment on above: The validity of the calculated GFR & GFRAA in patients over 70 years has not been determined. Clinical correlation is essential. Serum or plasma urea nitroge n measurement (mass/volume)on 01-27-2022 Urea nitrogen [Mass/Vol] 41 mg/dL 7-18 [facility] Work Phone: Thin prep Papanicolaou smear with manual screeningon 01-27-2022 Thin prep Papanicolaou smear with manual screening 21 5-15 [facility] Work Phone: Vital signson 01-27-2022 Oxygen saturation in Blood 90 % 50-70 [facility] Work Phone: pH measurementon 01-27-2022 pH (Unsp spec) 7.28 [pH] 7.32-7.42 [facility] Work Phone: Basophil percentageon 2021 Basophil percentage 3.8 mg/dL 2.5-4.9 [facility] Work Phone: Chloride [Moles/Vol] 95 mmol/L 98-[address] [facility] Work Phone: Glucose [Mass/Vol] 388 mg/dL 74-106 [facility] Work Phone: Comment on above: Glucose result great er than or equal to 200 mg/dLsuggests DIABETES MELLITUS per A.D.A. criteria. Potassium [Moles/Vol] 4.6 mmol/L 3.5-5.1 [facility] Work Phone: Sodium [Moles/Vol] 134 mmol/L 136-145 [facility] Work Phone: WBC (Bld) [#/Vol] 8.7 10*3/uL 4.4-11.0 [facility] Work Phone: Blood erythrocytes count (nu mber/volume)on 01-20-2022 RBC (Bld) [#/Vol] 5.03 10*6/uL 4.2-5.4 [facility] Work Phone: Blood hemoglobin measurement (mass/volume)on 01-20-2022 Hemoglobin (Bld) [Mass/Vol] 14.6 g/dL 12.0-15.0 [facility] Work Phone: Blood platelet mean volumeon 01-20-2022 Platelet mean volume (Bld) [Entitic vol] 11.3 fL 6.2-12.0 [facility] Work Phone: Determination of erythrocyte mean corpuscular volume (MCV)on 01-20-2022 MCV (RBC) [Entitic vol] 87.9 fL 81-99 [facility] Work Phone: Hematocrit Auto (Bld) [Volum e fraction]on 01-20-2022 Hematocrit (Bld) [Volume fraction] 44.2 % 37-47 [facility] Work Phone: Laboratory - Chemistry and C hemistry - challengeon 01-20-2022 CO2 [Moles/Vol] 29.0 mmol/L 21.0-32.0 [facility] Work Phone: Natriuretic peptide B (Bld) [Mass/Vol] 68.2 pg/mL 0-100 [facility] Work Phone: Urea nitrogen/Creatinine [Mass ratio] 21.6 mg/mg 10-20 [facility] Work Phone: Laboratory - Hematology and Cell countson 01-20-2022 Erythrocyte distribution width (RBC) [Entitic vol] 54.7 fL 35.1-43.9 [facility] Work Phone: Erythrocyte distribution width (RBC) [Ratio] 16.9 % 11.6-14.6 [facility] Work Phone: MCH (RBC) [Entitic mass] 29.0 pg 27.0-32.0 [facility] Work Phone: MCHC Auto (RBC) [Mass/Vol]on 01-20-2022 MCHC (RBC) [Mass/Vol] 33.0 g/dL 32-36 [facility] Work Phone: No Panel Informationon 01-20 D-Dimer Quantitative (PE/DVT) 0.77 FEU/ug/m 0.27-0.49 [facility] Work Phone: Comment on above: D-Dimer ELEVATED (>0 .49): Additional studies and clinicalassessments are indicated to conclude diagnosis of:Deep Vein Thrombosis (DVT) or Pulmonary Embolism (PE)CRITICAL VALUE VERIFIED. CALLED TO RUTH CASTELLANO01/20/22 1540 Pam Carreno.RESULTS READ BACK BY SAME . Estimated GFR (MDRD) Amer 53 mL/min >60 [facility] Work Phone: Comment on above: GFR Calc Estimated GFR (MDRD) Non-Af Amer 44 mL/min >60 [facility] Work Phone: Comment on above: Non- GFR Calc Platelets bldon 01-20-2022 Platelets (Bld) [#/Vol] 340 10*3/uL 150-450 [facility] Work Phone: Serum or plasma albumin jaylen urement (mass/volume)on 01-20-2022 Albumin [Mass/Vol] 3.4 g/dL 3.2-5.0 [facility] Work Phone: Serum or plasma calcium jaylen urement (mass/volume)on 01-20-2022 Calcium [Mass/Vol] 9.2 mg/dL 8.5-10.1 [facility] Work Phone: Serum or plasma creatinine m easurement (mass/volume)on 01-20-2022 Creatinine [Mass/Vol] 1.25 mg/dL 0.55-1.02 [facility] Work Phone: Comment on above: The validity of the calculated GFR & GFRAA in patients over 70 years has not been determined. Clinical correlation is essential. Serum or plasma urea nitroge n measurement (mass/volume)on 01-20-2022 Urea nitrogen [Mass/Vol] 27 mg/dL 7-18 [facility] Work Phone: Basophil percentageon 2021 Chloride [Moles/Vol] 101 mmol/L 98-107 [facility] Work Phone: Glucose [Mass/Vol] 199 mg/dL 74-106 [facility] Work Phone: Comment on above: Fasting Glucose resu lt greater than or equal to 126 mg/dL suggests DIABETES MELLITUS per A.D.A. criteria. Potassium [Moles/Vol] 3.7 mmol/L 3.5-5.1 [facility] Work Phone: Sodium [Moles/Vol] 135 mmol/L 136-145 [facility] Work Phone: Glucose Glucometer (BldC) [M ass/Vol]on 11-22-2021 Glucose [Mass/Vol] 207 mg/dL 70-110 [facility] Work Phone: Comment on above: MANAGEMENT OF PATIEN T CARE PER NURSING PROTOCOL Laboratory - Chemistry and C hemistry - challengeon 11-22-2021 CO2 [Moles/Vol] 29.0 mmol/L 21.0-32.0 [facility] Work Phone: Urea nitrogen/Creatinine [Mass ratio] 14.3 mg/mg 10-20 [facility] Work Phone: No Panel Informationon 11-22 Estimated Creatinine Clearance Calc 43.66 ml/min [facility] Work Phone: Estimated GFR (MDRD) Amer 84 mL/min >60 [facility] Work Phone: Comment on above: GFR Calc Estimated GFR (MDRD) Non-Af Amer 70 mL/min >60 [facility] Work Phone: Comment on above: Non- GFR Calc Serum or plasma calcium jaylen urement (mass/volume)on 11-22-2021 Calcium [Mass/Vol] 8.6 mg/dL 8.5-10.1 [facility] Work Phone: Serum or plasma creatinine m easurement (mass/volume)on 11-22-2021 Creatinine [Mass/Vol] 0.84 mg/dL 0.55-1.02 [facility] Work Phone: Comment on above: The validity of the calculated GFR & GFRAA in patients over 70 years has not been determined. Clinical correlation is essential. Serum or plasma urea nitroge n measurement (mass/volume)on 11-22-2021 Urea nitrogen [Mass/Vol] 12 mg/dL 7-18 [facility] Work Phone: Thin prep Papanicolaou smear with manual screeningon 11-22-2021 Thin prep Papanicolaou smear with manual screening 5 5-15 [facility] Work Phone: Basophil percentageon 2021 Basophil percentage 2.6 mg/dL 2.5-4.9 [facility] Work Phone: Laboratory - Chemistry and C hemistry - challengeon 11-21-2021 Magnesium [Mass/Vol] 2.0 mg/dL 1.6-2.6 [facility] Work Phone: Absolute lymphocyte counton 11-20-2021 Lymphocytes Auto (Unsp spec) [#/Vol] 1.28 10*3/uL 0.83-4.51 [facility] Work Phone: Basophil percentageon 2021 Basophils/100 WBC (Bld) 0.2 % 0-1 [facility] Work Phone: Eosinophils/100 WBC (Bld) 0.1 % 0-5 [facility] Work Phone: Neutrophils (Bld) [#/Vol] 8.9 10*3/uL 2.0-7.7 [facility] Work Phone: Neutrophils/100 WBC (Bld) 81.6 % 47-70 [facility] Work Phone: WBC (Bld) [#/Vol] 10.9 10*3/uL 4.4-11.0 [facility] Work Phone: Blood erythrocytes count (nu mber/volume)on 11-20-2021 RBC (Bld) [#/Vol] 4.04 10*6/uL 4.2-5.4 [facility] Work Phone: Blood hemoglobin measurement (mass/volume)on 11-20-2021 Hemoglobin (Bld) [Mass/Vol] 11.5 g/dL 12.0-15.0 [facility] Work Phone: Blood lymphocytes/100 leukoc yteson 11-20-2021 Lymphocytes/100 WBC (Bld) 11.7 % 19-41 [facility] Work Phone: Blood monocytes/100 leukocyt eson 11-20-2021 Monocytes/100 WBC (Bld) 6.0 % 0-10 [facility] Work Phone: Blood platelet mean volumeon 11-20-2021 Platelet mean volume (Bld) [Entitic vol] 11.0 fL 6.2-12.0 [facility] Work Phone: Determination of erythrocyte mean corpuscular volume (MCV)on 11-20-2021 MCV (RBC) [Entitic vol] 85.9 fL 81-99 [facility] Work Phone: Hematocrit Auto (Bld) [Volum e fraction]on 11-20-2021 Hematocrit (Bld) [Volume fraction] 34.7 % 37-47 [facility] Work Phone: Laboratory - Hematology and Cell countson 11-20-2021 Erythrocyte distribution width (RBC) [Entitic vol] 49.1 fL 35.1-43.9 [facility] Work Phone: Erythrocyte distribution width (RBC) [Ratio] 15.6 % 11.6-14.6 [facility] Work Phone: Immature granulocytes/100 WBC (Bld) 0.400 % 0.0-0.9 [facility] Work Phone: Comment on above: IG% - Immature Granu locytes (promyelocytes, myelocytes and metamyelocytes) > 1% indicates that a LEFT SHIFT is Present. MCH (RBC) [Entitic mass] 28.5 pg 27.0-32.0 [facility] Work Phone: Nucleated RBC/100 WBC (Bld) [Ratio] 0 % 0-5 [facility] Work Phone: MCHC Auto (RBC) [Mass/Vol]on 11-20-2021 MCHC (RBC) [Mass/Vol] 33.1 g/dL 32-36 [facility] Work Phone: Platelets bldon 11-20-2021 Platelets (Bld) [#/Vol] 219 10*3/uL 150-450 [facility] Work Phone: Laboratory - Coagulationon 0 11-19-2021 aPTT Coag (Bld) [Time] 107.6 s 24.1-36.2 [facility] Work Phone: Serum or plasma vancomycin m easurement (mass/volume)on 11-19-2021 Vancomycin [Mass/Vol] 6.3 ug/mL 0.0-15.0 [facility] Work Phone: Comment on above: VANCOMYCIN STANDARD DRUG THERAPY: CRITICAL VALUE IS > 15.0 mg/L VANCOMYCIN HIGH INTENSITY THERAPY: CRITICAL VALUE IS > 20.0 mg/L PLEASE CONTACT PHARMACY SERVICES (#[id number]) FOR INTERPRETATIONOF RESULTS. THIS RESULT DOES NOT REPRESENT A PEAK OR TROUGHLEVEL FOR THIS DRUG. Basophil percentageon 2021 Lactate [Moles/Vol] 2.4 mmol/L 0.4-2.0 [facility] Work Phone: Comment on above: Critical Result(s) C alled at: 05:01:13 11/18/2021 by: NAGA BURLEY to T Cassidy SPA CONSULTANT. Results read back by same. Basophil percentage 0-5 SEEN /hpf [facility] Work Phone: Bilirubin Test strip Ql (U)o n 11-18-2021 Bilirubin Ql (U) Negative Negative [facility] Work Phone: Blood lymphocytes/100 leukoc yteson 11-18-2021 Lymphocytes/100 WBC (Bld) 2 % 19-41 [facility] Work Phone: Blood monocytes/100 leukocyt eson 11-18-2021 Monocytes/100 WBC (Bld) 7 % 0-10 [facility] Work Phone: Blood platelet adequacy dete ction by light microscopyon 11-18-2021 Platelets LM Ql (Bld) ADEQUATE ADEQ [facility] Work Phone: Blood segmented neutrophils/ 100 leukocyteson 11-18-2021 Segmented neutrophils/100 WBC (Bld) 91 % 47-70 [facility] Work Phone: Ketones Test strip Ql (U)on 11-18-2021 Ketones Ql (U) 50 mg/dl Negative [facility] Work Phone: Laboratory - Chemistry and C hemistry - challengeon 11-18-2021 Free T4 [Mass/Vol] 1.15 ng/dL 0.76-1.46 [facility] Work Phone: Laboratory - Hematology and Cell countson 11-18-2021 Anisocytosis Ql (Bld) 1+ [facility] Work Phone: Mucus LM Ql (Urine sed)on Mucus Ql (Urine sed) 0 SEEN /hpf [facility] Work Phone: Nitrite Test strip Ql (U)on 11-18-2021 Nitrite Ql (U) Negative Negative [facility] Work Phone: No Panel Informationon 11-18 Methicillin-Resist S.aureus DNA PCR Negative Negative [facility] Work Phone: Protein Test strip Ql (U)on 11-18-2021 Protein Ql (U) 30 mg/dl Negative [facility] Work Phone: RBC morphologyon 11-18-2021 RBC morphology finding Nom (Bld) NORM C+C NORMAL NORM C&C [facility] Work Phone: Review by pathologiston 10-25 Pathologist review Duglas (Unsp spec) [Interp] Reviewed [facility] Work Phone: Comment on above: Previous reported re sult: Diana madrid Edited by: RGOLEILA on 11/18/21:1402Neutrophilic leukocytosis.Clinical correlation necessary.Arun Kilgore M.D. 11/18/21 AMENDED REPORT 11/18/21 1402 PATH REV previously reported as: Diana madrid Squamous epithelial cells de tection in urine sediment by light microscopyon 11-18-2021 Epithelial cells.squamous LM Ql (Urine sed) 0 SEEN /hpf [facility] Work Phone: Total cell counton 2 Cells counted Molgen (Bld/Tiss) [#] 100 MANUAL DIFF [facility] Work Phone: Urine blood detectionon 10-25 RBC Ql (U) 25 /ul Negative [facility] Work Phone: RBC Ql (U) 0 SEEN /hpf [facility] Work Phone: Urine clarityon 11-18-2021 Clarity (U) Clear Clear [facility] Work Phone: Urine color determinationon 11-18-2021 Color (U) Yellow Yellow [facility] Work Phone: Urine glucose detectionon Glucose Ql (U) 1000 mg/dl Normal [facility] Work Phone: Urine leukocyte esterase det ection by dipstickon 11-18-2021 Leukocyte esterase Test strip Ql (U) Negative Negative [facility] Work Phone: Urine pHon 11-18-2021 pH (U) 5.0 [pH] [facility] Work Phone: Urine sediment bacteria coun t by microscopy (number/high power field)on 11-18-2021 Bacteria LM.HPF (Urine sed) [#/Area] RARE /hpf None Seen [facility] Work Phone: Urine specific gravity measu rementon 11-18-2021 Specific gravity (U) [Rel density] 1.020 [facility] Work Phone: Urobilinogen Auto test strip Ql (U)on 11-18-2021 Urobilinogen Ql (U) Normal mg/dl Normal [facility] Work Phone: Whole blood hemoglobin A1c/t otal hemoglobin ratio (mass fraction)on 11-18-2021 HbA1c (Bld) [Mass fraction] 9.3 % 3.8-5.6 [facility] Work Phone: Comment on above: Normal < 5.7 % Predi abetic 5.7 - 6.4 % Diabetic >or= 6.5 % Please note range changes. Assessment of wrist artery p atency prior to arterial punctureon 11-17-2021 Arterial patency Wrist artery --pre arterial puncture Positive [facility] Work Phone: Base excesson 11-17-2021 Base excess Calc (BldV) [Moles/Vol] -15 mmol/L -2-2 [facility] Work Phone: Basophil percentageon 2021 Ammonia (P) [Moles/Vol] 15.0 umol/L 11-32 [facility] Work Phone: Basophil percentage 12.0 mmol/L - [facility] Work Phone: Basophils/100 WBC (Bld) 95 % 95-99 [facility] Work Phone: Blood manual differential co mment interpretation (narrative result)on 11-17-2021 Manual differential comment Duglas (Bld) [Interp] SCANNED [facility] Work Phone: Comment on above: NEUTROPHILIA NOTED CO2 (BldA) [Partial pressure ]on 11-17-2021 CO2 (Bld) [Partial pressure] 24.4 mm[Hg] 35-45 [facility] Work Phone: INR in Blood by Coagulation assayon 11-17-2021 INR Coag (Bld) [Relative time] 1.0 {INR} [facility] Work Phone: Laboratory - Coagulationon 0 11-17-2021 PT Coag (PPP) [Time] 12.4 s 11.7-14.9 [facility] Work Phone: Laboratory - Drug toxicology on 11-17-2021 Amphetamines Ql (U) Negative [facility] Work Phone: Benzodiazepines Ql (U) Negative [facility] Work Phone: Cannabinoids Screen Ql (U) Negative [facility] Work Phone: Cocaine Ql (U) Negative [facility] Work Phone: Opiates Ql (U) Positive [facility] Work Phone: Laboratory - Microbiology an d Antimicrobial susceptibilityon 11-17-2021 Bacteria identified Cx Nom (Bld) No growth in 5 days. [facility] Work Phone: No Panel Informationon 11-17 Blood Gas Liter Flow 2.0 /min [facility] Work Phone: Blood Gas Sample Site R Radial [facility] Work Phone: Blood Gas Specimen Type ART [facility] Work Phone: Blood Gas Total CO2 13 mmol/L [facility] Work Phone: Oxygen Delivery Device Cannula [facility] Work Phone: Thyroid Stimulating Hormone (TSH) 20.80 uIU/mL 0.358-3.74 [facility] Work Phone: Troponin I High Sensitivity 23 pg/mL 3.0-54.0 [facility] Work Phone: Comment on above: Please Note: New Patsy t Units and Gender Specific Reference Ranges. For more information see Policy Stat Procedure [place] High Sensitivity Troponin (TNIH) and attachments. Urine Barbiturates Screen Negative [facility] Work Phone: Urine Drug Screen Comment [facility] Work Phone: Comment on above: CONFIRMATORY TESTING FOR ALL POSITIVE URINE DRUG SCREENRESULTS WILL ONLY BE SENT OUT UPON PHYSICIAN ORDER. VISTA Urine Drug Screen methods provide only preliminaryanalytical test results. A more specific alternate chemicalmethod must be used in order to obtain a confirmedanalytical result. Gas chromatography/mass spectrometery(GC/MS) is the preferred confirmatory method. Clinicalconsideration and professional judgement should be appliedto any drug of abuse test result, particularly whenpreliminary positive results are used. URINE TCA TESTING MUST BE ORDERED SEPARATELY. USE TESTMNEMONIC: [facility] Urine Methadone Screen Negative [facility] Work Phone: Urine Methamphetamine-MDMA Screen Negative [facility] Work Phone: SARS-CoV-2 Antigen (Rapid) [facility] Work Phone: Oxygen (BldA) [Partial press ure]on 11-17-2021 Oxygen (Bld) [Partial pressure] 80 mmHG 75-100 [facility] Work Phone: Serum or plasma acetone jaylen urement (mass/volume)on 11-17-2021 Acetone [Mass/Vol] SMALL NEG [facility] Work Phone: Serum procalcitonin measurem enton 11-17-2021 Procalcitonin [Mass/Vol] 2.82 ng/mL 0.00-0.09 [facility] Work Phone: Comment on above: A procalcitonin (PCT ) level above 2.0 ng/mL on the first day of ICU admission is associated with a high risk for progression to severe sepsis and/or septic shock. A PCT level below 0.5 ng/mL on the first day of ICU admission is associated with a low risk for progression to severe and/or septic shock. Note: Concentrations <0.5 ng/mL do not exclude an infection on account of localized infections (without systemic signs) which can be associated with such low concentrations, or a systemic infection in its initial stages (<6 hours). Furthermore, increased procalcitonin can occur without infection. PCT concentrations between 0.5 and 2.0 ng/mL should be interpreted taking into account the patient's history. It is recommended to retest PCT within 6-24 hours if any concentrations <2 ng/mL are obtained. Urine phencyclidine (PCP) de tectionon 11-17-2021 Phencyclidine Ql (U) Negative [facility] Work Phone: pH measurementon 11-17-2021 pH (Unsp spec) 7.30 [pH] 7.35-7.45 [facility] Work Phone: Absolute lymphocyte counton 10-07-2021 Lymphocytes Auto (Unsp spec) [#/Vol] 1.16 10*3/uL 0.83-4.51 [facility] Work Phone: Basophil percentageon 2020 Basophil percentage 4.0 mg/dL 2.5-4.9 [facility] Work Phone: Bilirubin [Mass/Vol] 0.50 mg/dL 0.20-1.00 [facility] Work Phone: Comment on above: For patients on eltr ombopag therapy, use of Dimension [place] TBIL is not recommended. Chloride [Moles/Vol] 101 mmol/L 98-107 [facility] Work Phone: Eosinophils/100 WBC (Bld) 0.0 % 0-5 [facility] Work Phone: Glucose [Mass/Vol] 210 mg/dL 74-106 [facility] Work Phone: Comment on above: Glucose result great er than or equal to 200 mg/dLsuggests DIABETES MELLITUS per A.D.A. criteria.Please note revised GLUCOSE reference range effective 2017. Neutrophils (Bld) [#/Vol] 7.4 10*3/uL 2.0-7.7 [facility] Work Phone: Potassium [Moles/Vol] 3.8 mmol/L 3.5-5.1 [facility] Work Phone: Protein [Mass/Vol] 6.4 g/dL 6.4-8.2 [facility] Work Phone: Sodium [Moles/Vol] 137 mmol/L 136-145 [facility] Work Phone: WBC (Bld) [#/Vol] 9.4 10*3/uL 4.4-11.0 [facility] Work Phone: Blood erythrocytes count (nu mber/volume)on 10-07-2021 RBC (Bld) [#/Vol] 4.40 10*6/uL 4.2-5.4 [facility] Work Phone: Blood hemoglobin measurement (mass/volume)on 10-07-2021 Hemoglobin (Bld) [Mass/Vol] 12.3 g/dL 12.0-15.0 [facility] Work Phone: Blood lymphocytes/100 leukoc yteson 10-07-2021 Lymphocytes/100 WBC (Bld) 12.4 % 19-41 [facility] Work Phone: Blood monocytes/100 leukocyt eson 10-07-2021 Monocytes/100 WBC (Bld) 8.4 % 0-10 [facility] Work Phone: Blood platelet mean volumeon 10-07-2021 Platelet mean volume (Bld) [Entitic vol] 11.5 fL 6.2-12.0 [facility] Work Phone: Determination of erythrocyte mean corpuscular volume (MCV)on 10-07-2021 MCV (RBC) [Entitic vol] 86.1 fL 81-99 [facility] Work Phone: Hematocrit Auto (Bld) [Volum e fraction]on 10-07-2021 Hematocrit (Bld) [Volume fraction] 37.9 % 37-47 [facility] Work Phone: Laboratory - Chemistry and C hemistry - challengeon 10-07-2021 ALP [Catalytic activity/Vol] 87 U/L 45-117 [facility] Work Phone: ALT [Catalytic activity/Vol] 20 U/L 13-56 [facility] Work Phone: CO2 [Moles/Vol] 26.0 mmol/L 21.0-32.0 [facility] Work Phone: Globulin (S) [Mass/Vol] 3.9 g/dL 2.2-4.2 [facility] Work Phone: Magnesium [Mass/Vol] 2.1 mg/dL 1.6-2.6 [facility] Work Phone: Urea nitrogen/Creatinine [Mass ratio] 25.1 mg/mg 10-20 [facility] Work Phone: Laboratory - Hematology and Cell countson 10-07-2021 Basophils/100 WBC (Unsp spec) 0.2 % 0-1 [facility] Work Phone: Erythrocyte distribution width (RBC) [Entitic vol] 44.7 fL 35.1-43.9 [facility] Work Phone: Erythrocyte distribution width (RBC) [Ratio] 14.3 % 11.6-14.6 [facility] Work Phone: Immature granulocytes/100 WBC (Bld) 0.300 % 0.0-0.9 [facility] Work Phone: Comment on above: IG% - Immature Granu locytes (promyelocytes, myelocytes and metamyelocytes) > 1% indicates that a LEFT SHIFT is Present. MCH (RBC) [Entitic mass] 28.0 pg 27.0-32.0 [facility] Work Phone: Neutrophils/100 WBC (Bld) 78.7 % 47-70 [facility] Work Phone: Nucleated RBC/100 WBC (Bld) [Ratio] 0 % 0-5 [facility] Work Phone: MCHC Auto (RBC) [Mass/Vol]on 10-07-2021 MCHC (RBC) [Mass/Vol] 32.5 g/dL 32-36 [facility] Work [facility]: No Panel Informationon 10-07 Estimated Creatinine Clearance Calc 47.66 ml/min [facility] Work Phone: Estimated GFR (MDRD) Amer 85 mL/min >60 [facility] Work Phone: Comment on above: GFR Calc Estimated GFR (MDRD) Non-Af Amer 70 mL/min >60 [facility] Work Phone: Comment on above: Non- GFR Calc Platelets bldon 10-07-2021 Platelets (Bld) [#/Vol] 297 10*3/uL 150-450 [facility] Work Phone: Serum or plasma albumin jaylen urement (mass/volume)on 10-07-2021 Albumin [Mass/Vol] 2.5 g/dL 3.2-5.0 [facility] Work Phone: Serum or plasma albumin/glob ulin mass ratioon 10-07-2021 Albumin/Globulin [Mass ratio] 0.6 {ratio} 0.9-2.4 [facility] Work Phone: Serum or plasma calcium jaylen urement (mass/volume)on 10-07-2021 Calcium [Mass/Vol] 9.3 mg/dL 8.5-10.1 [facility] Work Phone: Serum or plasma creatinine m easurement (mass/volume)on 10-07-2021 Creatinine [Mass/Vol] 0.84 mg/dL 0.55-1.02 [facility] Work Phone: Comment on above: The validity of the calculated GFR & GFRAA in patients over 70 years has not been determined. Clinical correlation is essential. Serum or plasma urea nitroge n measurement (mass/volume)on 10-07-2021 Urea nitrogen [Mass/Vol] 21 mg/dL 7-18 [facility] Work Phone: Thin prep Papanicolaou smear with manual screeningon 10-07-2021 Thin prep Papanicolaou smear with manual screening 5 U/L 15-37 [facility] Work Phone: Thin prep Papanicolaou smear with manual screening 10 5-15 [facility] Work Phone: Laboratory - Chemistry and C hemistry - challengeon 10-06-2021 Natriuretic peptide B (Bld) [Mass/Vol] 158.9 pg/mL 0-100 [facility] Work Phone: Laboratory - Microbiology an d Antimicrobial susceptibilityon 10-06-2021 SARS-CoV-2 (COVID-19) RNA MYRIAM+probe Ql (Unsp spec) Not detected Not Detect [facility] Work Phone: Comment on above: Normal Reference Ran ge: Not DetectedMethod:(RT-PCR) real-time reverse transcriptase PCRLuminex Party Earth Instrument*The Food and Drug Administration (FDA) has issued an Emergency Use Authorization (EAU) for the Party Earth SARS-CoV-2 Assay for the rapid detection of the virus that causes COVID-19. This test has been validated, but the FDAs independent review of this validation is pending.*Negative results do not preclude infection and should not be used as the sole basis for treatment or patient management. Optimum specimen types and timing for peak viral levels during infections caused by SARS-CoV-2 have not been determined. Collection of multiple specimens from the same patient may be necessary to detect the virus. The possibility of a false negative result should be considered if the patient has clinical presentation or has had recent exposure. No Panel Informationon 10-06 D-Dimer Quantitative (PE/DVT) 1.24 FEU/ug/m 0.27-0.49 [facility] Work Phone: Comment on above: D-Dimer ELEVATED (>0 .49): Additional studies and clinicalassessments are indicated to conclude diagnosis of:Deep Vein Thrombosis (DVT) or Pulmonary Embolism (PE)CRITICAL VALUE VERIFIED. [facility] [place] Diana2 Lyndsey Pinto.RESULTS READ BACK BY SAME . Respiratory Panel (PCR) [facility] Work Phone: Troponin I High Sensitivity 14 pg/mL 3.0-54.0 [facility] Work Phone: Comment on above: Please Note: New Patsy t Units and Gender Specific Reference Ranges. For more information see Policy Stat Procedure [facility] High Sensitivity Troponin (TNIH) and attachments. Basophil percentageon 2020 Creatinine [Mass/Vol] 0.7 mg/dL 0.55-1.02 [facility] Work Phone: Erythrocyte sedimentation ra alexa 09-30-2021 ESR (Bld) [Velocity] 41 mm/h 0-30 [facility] Work Phone: No Panel Informationon 09-30 Bedside Estimated GFR (eGFR) > 60.0000 mL/min >60 [facility] Work Phone: C-Reactive Protein High Sensitivity 15.30 mg/L [facility] Work Phone: Comment on above: Low Relative Risk of CVD <1.0 mg/L Average Relative Risk of CVD 1.0 - 3.0 mg/L High Relative Risk of CVD >3.0 mg/L D-Dimer Quantitative (PE/DVT) 0.84 FEU/ug/m 0.27-0.49 [facility] Work Phone: Comment on above: D-Dimer ELEVATED (>0 .49): Additional studies and clinicalassessments are indicated to conclude diagnosis of:Deep Vein Thrombosis (DVT) or Pulmonary Embolism (PE)CRITICAL VALUE VERIFIED. CALLED TO RUTH CASTELLANO RN ([facility])09/30/21 1123 Logan Sepulveda.RESULTS READ BACK BY SAME. TSH ([id number])Ordered By: Syste m Bottle Inspector on 09-16-2021 TSH Qn 0.831 {uIU/mL} Normal 0.450-4.50 0 [facility] Work Phone: Comment on above: PATIENT NOT FASTINGP ERFORMED BY: [facility]6[address] [facility] [id number] 2018 Novel Coronavirus (COVI D-19), MYRIAM ([id number])Ordered By: Turner Off on 07-15-20212018 Novel Coronavirus (COVID-19), MYRIAM ([id number]) Not detected Normal [facility]; [facility] Work Phone: Comment on above: This nucleic acid am plification test was developed and its performancecharacteristics determined by [employer]. Nucleic acidamplification tests include RT-PCR and TMA. This test has not beenFDA cleared or approved. This test has been authorized by FDA underan Emergency Use Authorization (EUA). This test is only authorizedfor the duration of time the declaration that circumstances existjustifying the authorization of the emergency use of in vitrodiagnostic tests for detection of SARS-CoV-2 virus and/or diagnosisof COVID-19 infection under section 564(b)(1) of the Act, 21 U.S.C.360bbb-3(b) (1), unless the authorization is terminated or revokedsooner.When diagnostic testing is negative, the possibility of a falsenegative result should be considered in the context of a patient'srecent exposures and the presence of clinical signs and symptomsconsistent with COVID-19. An individual without symptoms of COVID-19and who is not shedding SARS-CoV-2 virus would expect to have anegative (not detected) result in this assay. PATIENT NOT FASTINGP ERFORMED BY: [employer] [place] [facility] [id number] CBC W/AUTO DIFF WBC ([id number])O rdered By: Turner Off on 07-03-2021 Basophils (Bld) [#/Vol] 0.1 10*3/uL Normal 0.0-0.2 [facility] Work Phone: Comment on above: PATIENT WAS FASTINGP ERFORMED BY: [employer] [place] [facility] [id number] Basophils/100 WBC (Bld) 1 % Normal [facility] Work Phone: Comment on above: PATIENT WAS FASTINGP ERFORMED BY: [employer] [place] [id number] Eosinophils (Bld) [#/Vol] 0.4 10*3/uL Normal 0.0-0.4 [facility] Work Phone: Comment on above: PATIENT WAS FASTINGP ERFORMED BY: [facility] [id number] Eosinophils/100 WBC (Bld) 4 % Normal [facility]; [facility] Work Phone: Comment on above: PATIENT WAS FASTINGP ERFORMED BY: PALOMO Nabil Andrade6370 [facility] [id number] Erythrocyte distribution width (RBC) [Ratio] 14.0 % Normal 11.7-15.4 [facility]; [facility] Work Phone: Comment on above: PATIENT WAS FASTINGP ERFORMED BY: [facility] [id number] [facility] [id number] Hematocrit (Bld) [Volume fraction] 43.3 % Normal 34.0-46.6 [facility] Work Phone: Comment on above: PATIENT WAS FASTINGP ERFORMED BY: [facility] [id number] [facility] [id number] Hemoglobin (Bld) [Mass/Vol] 13.8 g/dL Normal 11.1-15.9 [facility]; [facility] Work Phone: Comment on above: PATIENT WAS FASTINGP ERFORMED BY: PALOMO Armaan Duiiqf9175 [facility] [id number] Immature granulocytes (Bld) [#/Vol] 0.0 10*3/uL Normal 0.0-0.1 [facility]; [facility] Work Phone: Comment on above: PATIENT WAS FASTINGP ERFORMED BY: [facility] [id number] [facility] [id number] Immature granulocytes/100 WBC (Bld) 0 % Normal [facility]; [facility] Work Phone: Comment on above: PATIENT WAS FASTINGP ERFORMED BY: [facility] [id number] [facility] [id number] Lymphocytes (Bld) [#/Vol] 2.2 10*3/uL Normal 0.7-3.1 [facility] Work Phone: Comment on above: PATIENT WAS FASTINGP ERFORMED BY: PAL[facility] [id number] [facility] [id number] Lymphocytes/100 WBC (Bld) 23 % Normal [facility]; [facility] Work Phone: Comment on above: PATIENT WAS FASTINGP ERFORMED BY: [facility] [id number] [facility] [id number] MCH (RBC) [Entitic mass] 27.9 pg Normal 26.6-33.0 [facility]; [facility] Work Phone: Comment on above: PATIENT WAS FASTINGP ERFORMED BY: [place] [id number] [facility] [id number] MCHC (RBC) [Mass/Vol] 31.9 g/dL Normal 31.5-35.7 [facility]; [facility] Work Phone: Comment on above: PATIENT WAS FASTINGP ERFORMED BY: EzDaniel [place]ille [id number] [facility] [id number] MCV (RBC) [Entitic vol] 88 fL Normal 79-97 [facility]; [facility] Work Phone: Comment on above: PATIENT WAS FASTINGP ERFORMED BY: [facility] [id number] [facility] [id number] Monocytes (Bld) [#/Vol] 0.8 10*3/uL Normal 0.1-0.9 [facility]; [facility] Work Phone: Comment on above: PATIENT WAS FASTINGP ERFORMED BY: [facility]6370 [facility] [facility] [id number] Monocytes/100 WBC (Bld) 8 % Normal [facility]; [facility] Work Phone: Comment on above: PATIENT WAS FASTINGP ERFORMED BY: [facility] [id number] Neutrophils (Bld) [#/Vol] 6.2 10*3/uL Normal 1.4-7.0 [facility]; [facility] Work Phone: Comment on above: PATIENT WAS FASTINGP ERFORMED BY: PALOMO [facility] Mmtrxl5793 [address] RoadDublin [place] [id number] Neutrophils/100 WBC (Bld) 64 % Normal [facility]; [facility] Work Phone: Comment on above: PATIENT WAS FASTINGP ERFORMED BY: [facility] Edefzn7844 [address] RoadDublin [place] [id number] Platelets (Bld) [#/Vol] 327 10*3/uL Normal 150-450 [facility]; [facility] Work Phone: Comment on above: PATIENT WAS FASTINGP ERFORMED BY: CB [facility] Dssyze2470 [address] RoadDublin [place] [id number] RBC (Bld) [#/Vol] 4.94 10*6/uL Normal 3.77-5.28 [facility]pr [facility] Internal Medicine; [facility] Internal Medicine Work Phone: Comment on above: PATIENT WAS FASTINGP ERFORMED BY: [facility] Ehkuna2697 [address] RoadDublin [place] [id number] WBC (Bld) [#/Vol] 9.7 10*3/uL Normal 3.4-10.8 [facility] Internal Medicine; [facility] Internal Medicine Work Phone: Comment on above: PATIENT WAS FASTINGP ERFORMED BY: [facility] Noacvo2583 [address] RoadDublin [place] [id number] HGB A1C ([id number])Ordered By: S ystem Bottle Inspector on 07-03-2021 HbA1c (Bld) [Mass fraction] 7.9 % Abnormal 4.8-5.6 [facility] Internal Medicine; [facility] Internal Medicine Work Phone: Comment on above: . Prediabetes: 5.7 - 6.4 Diabetes: >6.4 Glycemic control for adults with diabetes: <7.0 PATIENT WAS FASTINGP ERFORMED BY: CB [facility] Qynwnb5372 [address] RoadDublin [place] [id number] METABOLIC PANEL, COMPREHENSI VE ([id number])Ordered By: Turner Off on 07-03-2021 Albumin [Mass/Vol] 4.1 g/dL Normal 3.7-4.7 [facility]; [facility] Work Phone: Comment on above: PATIENT WAS FASTINGP ERFORMED BY: PALOMO Armaangraham Whnodl9299 [facility] [id number] Albumin/Globulin [Mass ratio] 1.6 {ratio} Normal 1.2-2.2 [facility]; [facility] Work Phone: Comment on above: PATIENT WAS FASTINGP ERFORMED BY: PALOMO EzAmairani JarquinUhgkni4611 [facility] [id number] ALP [Catalytic activity/Vol] 67 U/L Normal 48-121 [facility]; [facility] Work Phone: Comment on above: Effective [facility]athol hospit[facility] r 2020 Alkaline Phosphatase reference interval will be changing to: Age Male Female 0 - 5 days 47 - 127 47 - 127 6 - 10 days 29 - 242 29 - 242 11 - 20 days 109 - 357 109 - 357 21 - 30 days 94 - 494 94 - 494 1 - 2 months 149 - 539 149 - 539 3 - 6 months 131 - 452 131 - 452 7 - 11 months 117 - 401 117 - 401 12 months - 6 years 158 - 369 158 - 369 7 - 12 years 150 - 409 150 - 409 13 years 156 - 435 78 - 227 14 years 114 - 375 64 - 161 15 years 88 - 279 56 - 134 16 years 74 - 207 51 - 121 17 years 63 - 161 47 - 113 18 - 20 years 51 - 125 42 - 106 >20 years 44 - 121 44 - 121 PATIENT WAS FASTINGP ERFORMED BY: PALOMO Jarquinlin6370 [facility] [id number] ALT [Catalytic activity/Vol] 11 U/L Normal 0-32 [facility]; [facility] Work Phone: Comment on above: PATIENT WAS FASTINGP ERFORMED BY: PALOMO Armaangraham Svohqa4239 [facility] [id number] AST [Catalytic activity/Vol] 16 U/L Normal 0-40 [facility]; [facility] Work Phone: Comment on above: PATIENT WAS FASTINGP ERFORMED BY: PALOMO EzCoCare [facility] CenterNcgcki6884 [facility] [id number] Bilirubin [Mass/Vol] 0.5 mg/dL Normal 0.0-1.[address] [facility] rehensive Internal Medicine; [facility] Work Phone: Comment on above: PATIENT WAS FASTINGP ERFORMED BY: [facility] [facility] [id number] Calcium [Mass/Vol] 9.2 mg/dL Normal 8.7-10.3 [facility] Internal Medicine; [facility] Work Phone: Comment on above: PATIENT WAS FASTINGP ERFORMED BY: [facility] [facility] [id number] Chloride [Moles/Vol] 101 mmol/L Normal 96-106 Comp rehensive Internal Medicine; [facility] Work Phone: Comment on above: PATIENT WAS FASTINGP ERFORMED BY: [facility]6370 [facility] [id number] CO2 [Moles/Vol] 27 mmol/L Normal 20-29 [facility] Internal Medicine; [facility] Work Phone: Comment on above: PATIENT WAS FASTINGP ERFORMED BY: [facility]6370 [facility] [id number] Creatinine [Mass/Vol] 1.09 mg/dL Abnormal 0.57-1.00 [facility] prehensive Internal Medicine; [facility] Work Phone: Comment on above: PATIENT WAS FASTINGP ERFORMED BY: [facility]6370 [facility] [id number] GFR/1.73 sq M.predicted among blacks CKD-EPI (S/P/Bld) [Vol rate/Area] 57 mL/min/1.73 Abnormal [facility]; [facility] Work Phone: Comment on above: [facility] currently reports eGFR in compliance with the current recommendations of the [employer]. [facility] will update reporting as new guidelines are published from the NKF-ASN Task force. PATIENT WAS FASTINGP ERFORMED BY: [facility]6370 [facility] [id number] GFR/1.73 sq M.predicted among non-blacks CKD-EPI (S/P/Bld) [Vol rate/Area] 49 mL/min/1.73 Abnormal [facility]; [facility] Work Phone: Comment on above: PATIENT WAS FASTINGP ERFORMED BY: [facility] Ymjcjl[address] [facility] [place] [id number] Globulin (S) [Mass/Vol] 2.5 g/dL Normal 1.5-4.5 [facility] Internal Medicine; [facility] Work Phone: Comment on above: PATIENT WAS FASTINGP ERFORMED BY: [facility] Biwsxx76[address] [facility]in [place] [id number] Glucose [Mass/Vol] 121 mg/dL Abnormal 65-99 [facility] Internal Medicine; [facility] Work Phone: Comment on above: PATIENT WAS FASTINGP ERFORMED BY: [facility] Rltxeu[address] [facility] [id number] Potassium [Moles/Vol] 4.6 mmol/L Normal 3.5-5.2 [facility] prehensive Internal Medicine; [facility] Work Phone: Comment on above: PATIENT WAS FASTINGP ERFORMED BY: [facility] Mvvawq8553 [facility]in [place] [id number] Protein [Mass/Vol] 6.6 g/dL Normal 6.0-8.5 [facility] Internal Medicine; [facility] Work Phone: Comment on above: PATIENT WAS FASTINGP ERFORMED BY: [facility] Rrvrep23[address] [facility] [place] [id number] Sodium [Moles/Vol] 139 mmol/L Normal 134-144 [facility] Internal Medicine; [facility] Work Phone: Comment on above: PATIENT WAS FASTINGP ERFORMED BY: [facility] Nypujp[address] [facility] [place] [id number] Urea nitrogen [Mass/Vol] 23 mg/dL Normal 8-27 [facility] Internal Medicine; [facility] Work Phone: Comment on above: PATIENT WAS FASTINGP ERFORMED BY: PALOMO LabChristine Zkbzde97[address] [place] [id number] Urea nitrogen/Creatinine [Mass ratio] 21 mg/mg Normal 12-28 [facility]; [facility] Work Phone: Comment on above: PATIENT WAS FASTINGP ERFORMED BY: PALOMO [facility] Itovqy80[address] [place] [id number] MICROALBUMINOrdered By: [employer] em Bottle Inspector on 07-03-2021 Albumin DL <= 20 mg/L (U) [Mass/Vol] 6.2 ug/mL Normal [facility]; [facility] Work Phone: Comment on above: PATIENT WAS FASTINGP ERFORMED BY: PALOMO Nabil Jarquinlin[address] [facility] [place] [id number] Albumin/Creatinine (U) [Mass ratio] 10 {mg/g_creat} Normal 0-29 [facility]; [facility] Work Phone: Comment on above: Normal: 0 - 29 Moder ately increased: 30 - 300 Severely increased: >300 PATIENT WAS FASTINGP ERFORMED BY: PALOMO LabChristine Vhglua[address] [facility] [place] [id number] Creatinine (U) [Mass/Vol] 61.4 mg/dL Normal [facility]; [facility] Work Phone: Comment on above: PATIENT WAS FASTINGP ERFORMED BY: PALOMO [facility] Ivgytg0217 [facility] [id number] TSH ([id number])Ordered By: [employer]e m Bottle Inspector on 07-03-2021 TSH Qn 9.970 {uIU/mL} Abnormal 0.450-4.50 0 [facility]; [facility] Work Phone: Comment on above: PATIENT WAS FASTINGP ERFORMED BY: PALOMO [facility] Bhdzih[address] [facility] [place] [id number] URINALYSIS, W/ MICRO ([id number]) Ordered By: Turner Off on 07-03-2021 Appearance (U) Clear Normal Comprehens asha Internal Medicine; [facility] Work Phone: Comment on above: PATIENT WAS FASTINGP ERFORMED BY: PALOMO [facility] Exnijz2530 [address] RoadDublin [place] [id number] Bilirubin Ql (U) Negative Normal Comprehe nsive Internal Medicine; [facility] Work Phone: Comment on above: PATIENT WAS FASTINGP ERFORMED BY: PALOMO [facility] Ifuacm1104 [address] RoadDublin [place] [id number] Color (U) Yellow Normal [facility]; [facility] Work Phone: Comment on above: PATIENT WAS FASTINGP ERFORMED BY: PALOMO [facility] Zzvcld3867 [address] RoadDublin [place] [id number] Glucose Ql (U) Negative Normal Comprehens asha [facility]; [facility] Work Phone: Comment on above: PATIENT WAS FASTINGP ERFORMED BY: PALOMO LabAmairani JarquinTnlcte6022 [address] RoadDublin [place] [id number] Hemoglobin Ql (U) Negative Normal Compreh ensive Internal Medicine; [facility] Work Phone: Comment on above: PATIENT WAS FASTINGP ERFORMED BY: PALOMO [facility] Czzuuo6645 [address] RoadDublin [place] [id number] Ketones Ql (U) Negative Normal Comprehens asha [facility]; [facility] Work Phone: Comment on above: PATIENT WAS FASTINGP ERFORMED BY: PALOMO LabAmairani JarquinSndkdt8894 [address] RoadDublin [place] [id number] Leukocyte esterase Test strip Ql (U) 2+ Abnormal [facility]; [facility] Work Phone: Comment on above: PATIENT WAS FASTINGP ERFORMED BY: PALOMO [facility] Oeinzt2181 [address] RoadDublin [place] [id number] Microscopic observation LM Nom (Urine sed) See below: Normal [facility]; [facility] Work Phone: Comment on above: Microscopic was yoanna cated and was performed. PATIENT WAS FASTINGP ERFORMED BY: PALOMO [facility] Xjdulh2431 [address] RoadDublin [place] [id number] Nitrite Ql (U) Negative Normal Comprehens asha Internal Medicine; [facility] Work Phone: Comment on above: PATIENT WAS FASTINGP ERFORMED BY: [facility] Qjeoqu0292 [facility] [id number] pH (U) 7.0 [pH] Normal 5.0-7.5 [facility]; [facility] Work Phone: Comment on above: PATIENT WAS FASTINGP ERFORMED BY: [facility] Ntzqob2307 [facility] [id number] Protein Ql (U) Negative Normal Comprehens asha [facility] Medicine; [facility] Work Phone: Comment on above: PATIENT WAS FASTINGP ERFORMED BY: [facility]6370 [facility] [id number] Specific gravity (U) [Rel density] 1.012 1 Normal 1.005-1.03 0 [facility]; [facility] Work Phone: Comment on above: PATIENT WAS FASTINGP ERFORMED BY: [facility]6370 [facility] [id number] Urobilinogen (U) [Mass/Vol] 0.2 mg/dL Normal 0.2-1.0 [facility]; [facility] Work Phone: Comment on above: PATIENT WAS FASTINGP ERFORMED BY: [facility]6370 [facility] [id number] Culture, urine Bacteria identified Cx Nom (U) Culture exhibits no growth. [facility] Work Phone: Bacteria identified Cx Nom (U) Positive [facility] Work Phone: Laboratory - Microbiology an d Antimicrobial susceptibility Bacteria identified Cx Nom (Bld) No growth in 5 days. [facility] Work Phone: No Panel Information Respiratory Panel (PCR) [facility] Work Phone: SARS-CoV-2 & FLU Antigen (Rapid) [facility] Work Phone: Vital Signs Date Time Vital Sign Value Performing Clinician Facility 04-22-2025 13:21-0400 Diastolic blood pressure 46 mm[Hg] Dr. Shena Jeffers DO Work Phone: [facility] 04-22-2025 13:21-0400 Heart rate 86 /min Dr. Shena Jeffers DO Work Phone: [facility] 04-22-2025 13:21-0400 Respiratory rate 16 /min Dr. Shena Jeffers DO Work Phone: [facility] 04-22-2025 13:21-0400 Systolic blood pressure 114 mm[Hg] Dr. Shena Jeffers DO Work Phone: [facility] 04-22-2025 12:45-0400 Body height 165.[address] Shena Jeffers DO Work Phone: [facility] 04-22-2025 12:45-0400 Body mass index (BMI) [Ratio] 28.8 kg/m2 Dr. Shena Jeffers DO Work Phone: [facility] 04-22-2025 12:45-0400 Body temperature 98.2 [degF] Dr. Shena Jeffers DO Work Phone: [facility] 04-22-2025 12:45-0400 Body weight 78.[address] Shena Jeffers DO Work Phone: [facility] 04-22-2025 12:45-0400 SaO2% (BldA) [Mass fraction] 92 % Dr. Shena Jeffers DO Work Phone: [facility] 03-06-2025 14:12-0400 Body height 165.[address] Shena Jeffers DO Work Phone: [facility] 03-06-2025 14:12-0400 Body mass index (BMI) [Ratio] 27.8 kg/m2 Dr. Shena Jeffers DO Work Phone: [facility] 03-06-2025 14:12-0400 Body weight 75.[address] Shena Jeffers DO Work Phone: [facility] 03-06-2025 14:12-0400 Diastolic blood pressure 74 mm[Hg] Dr. Shena Jeffers DO Work Phone: [facility] 03-06-2025 14:12-0400 Heart rate 81 /min Dr. Shena Jeffers DO Work Phone: [facility] 03-06-2025 14:12-0400 SaO2% (BldA) [Mass fraction] 92 % Dr. Shena Jeffers DO Work Phone: [facility] 03-06-2025 14:12-0400 Systolic blood pressure 137 mm[Hg] Dr. Shena Jeffers DO Work Phone: [facility] 02-19-2025 13:05-0400 Body mass index (BMI) [Ratio] 26.9 kg/m2 Dr. Shena Jeffers DO Work Phone: [facility] 02-19-2025 13:05-0400 Body temperature 98.4 [degF] Dr. Shena Jeffers DO Work Phone: [facility] 02-19-2025 13:05-0400 Body weight 73.[address] Shena Jeffers DO Work Phone: [facility] 02-19-2025 13:05-0400 Diastolic blood pressure 70 mm[Hg] Dr. Shena Jeffers DO Work Phone: [facility] 02-19-2025 13:05-0400 Heart rate 70 /min Dr. Shena Jeffers DO Work Phone: [facility] 02-19-2025 13:05-0400 Respiratory rate 18 /min Dr. Shena Jeffers DO Work Phone: [facility] 02-19-2025 13:05-0400 SaO2% (BldA) [Mass fraction] 94 % Dr. Shena Jeffers DO Work Phone: [facility] 02-19-2025 13:05-0400 Systolic blood pressure 129 mm[Hg] Dr. Shena Jeffers DO Work Phone: [facility] 02-13-2025 15:19-0400 Body mass index (BMI) [Ratio] 27.3 kg/m2 Dr. Shena Jeffers DO Work Phone: [facility] 02-13-2025 15:19-0400 Body temperature 98.5 [degF] Dr. Shena Jeffers DO Work Phone: [facility] 02-13-2025 15:19-0400 Body weight 74.[address] Shena Jeffers DO Work Phone: [facility] 02-13-2025 15:19-0400 Diastolic blood pressure 82 mm[Hg] Dr. Shena Jeffers DO Work Phone: [facility] 02-13-2025 15:19-0400 Heart rate 71 /min Dr. Shena Jeffers DO Work Phone: [facility] 02-13-2025 15:19-0400 Respiratory rate 18 /min Dr. Shena Jeffers DO Work Phone: [facility] 02-13-2025 15:19-0400 SaO2% (BldA) [Mass fraction] 93 % Dr. Shena Jeffers DO Work Phone: [facility] 02-13-2025 15:19-0400 Systolic blood pressure 146 mm[Hg] Dr. Shena Jeffers DO Work Phone: [facility] 12-05-2024 14:14-0500 Body height 165.[address] Shena Jeffers DO Work Phone: [facility] 12-05-2024 14:14-0500 Body mass index (BMI) [Ratio] 28.3 kg/m2 Dr. Shena Jeffers DO Work Phone: [facility] 12-05-2024 14:14-0500 Body weight 77.[address] Shena Jeffers DO Work Phone: [facility] 12-05-2024 14:14-0500 Diastolic blood pressure 56 mm[Hg] Dr. Shena Jeffers DO Work Phone: [facility] 12-05-2024 14:14-0500 Heart rate 89 /min Dr. Shena Jeffers DO Work Phone: [facility] 12-05-2024 14:14-0500 SaO2% (BldA) [Mass fraction] 90 % Dr. Shena Jeffers DO Work Phone: [facility] 12-05-2024 14:14-0500 Systolic blood pressure 116 mm[Hg] Dr. Shena Jeffers DO Work Phone: [facility] 10-09-2024 10:00-0500 Body temperature 98.3 [degF] Dr. Shena Jeffers DO Work Phone: [facility] 10-09-2024 10:00-0500 Diastolic blood pressure 59 mm[Hg] Dr. Shena Jeffers DO Work Phone: [facility] 10-09-2024 10:00-0500 Heart rate 88 /min Dr. Shena Jeffers DO Work Phone: [facility] 10-09-2024 10:00-0500 Inhaled oxygen flow rate 2 L/min Dr. Shena Jeffers DO Work Phone: [facility] 10-09-2024 10:00-0500 Respiratory rate 18 /min Dr. Shena Jeffers DO Work Phone: [facility] 10-09-2024 10:00-0500 SaO2% (BldA) [Mass fraction] 95 % Dr. Shena Jeffers DO Work Phone: [facility] 10-09-2024 10:00-0500 Systolic blood pressure 109 mm[Hg] Dr. Shena Jeffers DO Work Phone: [facility] 10-03-2024 12:16-0500 Body weight 75.[address] Shena Jeffers DO Work Phone: [facility] 10-02-2024 16:38-0500 Body mass index (BMI) [Ratio] 27.8 kg/m2 Dr. Shena Jeffers DO Work Phone: [facility] 09-18-2024 17:15-0500 Body temperature 97 [degF] Dr. Shena Jeffers DO Work Phone: [facility] 09-18-2024 17:15-0500 Diastolic blood pressure 58 mm[Hg] Dr. Shena Jeffers DO Work Phone: [facility] 09-18-2024 17:15-0500 Heart rate 76 /min Dr. Shena Jeffers DO Work Phone: [facility] 09-18-2024 17:15-0500 Inhaled oxygen flow rate 3 L/min Dr. Shena Jeffers DO Work Phone: [facility] 09-18-2024 17:15-0500 Respiratory rate 16 /min Dr. Shena Jeffers DO Work Phone: [facility] 09-18-2024 17:15-0500 SaO2% (BldA) [Mass fraction] 94 % Dr. Shena Jeffers DO Work Phone: [facility] 09-18-2024 17:15-0500 Systolic blood pressure 116 mm[Hg] Dr. Shena Jeffers DO Work Phone: [facility] 09-18-2024 15:00-0500 Body mass index (BMI) [Ratio] 25 kg/m2 Dr. Shena Jeffers DO Work Phone: [facility] 09-18-2024 15:00-0500 Body weight 68.[address] Shena Jeffers DO Work Phone: [facility] 09-17-2024 07:09-0500 Body temperature 98 [degF] Dr. Shena Jeffers DO Work Phone: [facility] 09-17-2024 07:09-0500 Diastolic blood pressure 74 mm[Hg] Dr. Shena Jeffers DO Work Phone: [facility] 09-17-2024 07:09-0500 Heart rate 82 /min Dr. Shena Jeffers DO Work Phone: [facility] 09-17-2024 07:09-0500 Respiratory rate 16 /min Dr. Shena Jeffers DO Work Phone: [facility] 09-17-2024 07:09-0500 SaO2% (BldA) [Mass fraction] 92 % Dr. Shena Jeffers DO Work Phone: [facility] 09-17-2024 07:09-0500 Systolic blood pressure 145 mm[Hg] Dr. Shena Jeffers DO Work Phone: [facility] 09-17-2024 04:48-0500 Inhaled oxygen flow rate 2 L/min Dr. Shena Jeffers DO Work Phone: [facility] 09-17-2024 04:38-0500 Body mass index (BMI) [Ratio] 29 kg/m2 Dr. Shena Jeffers DO Work Phone: [facility] 09-17-2024 04:38-0500 Body weight 79.[address] Shena Jeffers DO Work Phone: [facility] 09-13-2024 17:10-0500 Body temperature 97 [degF] Dr. Shena Jeffers DO Work Phone: [facility] 09-13-2024 17:10-0500 Diastolic blood pressure 69 mm[Hg] Dr. Shena Jeffers DO Work Phone: [facility] 09-13-2024 17:10-0500 Heart rate 82 /min Dr. Shena Jeffers DO Work Phone: [facility] 09-13-2024 17:10-0500 Inhaled oxygen flow rate 2 L/min Dr. Shena Jeffers DO Work Phone: [facility] 09-13-2024 17:10-0500 Respiratory rate 16 /min Dr. Shena Jeffers DO Work Phone: [facility] 09-13-2024 17:10-0500 SaO2% (BldA) [Mass fraction] 95 % Dr. hSena Jeffers DO Work Phone: [facility] 09-13-2024 17:10-0500 Systolic blood pressure 146 mm[Hg] Dr. Shena Jeffers DO Work Phone: [facility] 09-13-2024 02:30-0500 Body mass index (BMI) [Ratio] 29.7 kg/m2 Dr. Shena Jeffers DO Work Phone: [facility] 09-13-2024 02:30-0500 Body weight 81.[address] Shena Jeffers DO Work Phone: [facility] 09-05-2024 14:19-0500 Body mass index (BMI) [Ratio] 28.9 kg/m2 Dr. Shena Jeffers DO Work Phone: [facility] 09-05-2024 14:19-0500 Body weight 78.[address] Shena Jeffers DO Work Phone: [facility] 09-05-2024 14:19-0500 Diastolic blood pressure 72 mm[Hg] Dr. Shena Jeffers DO Work Phone: [facility] 09-05-2024 14:19-0500 Heart rate 79 /min Dr. Shena Jeffers DO Work Phone: [facility] 09-05-2024 14:19-0500 SaO2% (BldA) [Mass fraction] 98 % Dr. Shena Jeffers DO Work Phone: [facility] 09-05-2024 14:19-0500 Systolic blood pressure 117 mm[Hg] Dr. Shena Jeffers DO Work Phone: [facility] 01-11-2024 23:46-0400 Body temperature 100 [degF] Dr. Shena Jeffers Work Phone: [facility] 01-11-2024 23:46-0400 Diastolic blood pressure 87 mm[Hg] Dr. Shena Jeffers Work Phone: [facility] 01-11-2024 23:46-0400 Heart rate 114 /min Dr. Shena Jeffers Work Phone: [facility] 01-11-2024 23:46-0400 Respiratory rate 18 /min Dr. Shena Jeffers Work Phone: [facility] 01-11-2024 23:46-0400 SaO2% (BldA) [Mass fraction] 94 % Dr. Shena Jeffers Work Phone: [facility] 01-11-2024 23:46-0400 Systolic blood pressure 181 mm[Hg] Dr. Shena Jeffers Work Phone: [facility] 01-11-2024 23:00-0400 Inhaled oxygen flow rate 2 L/min Dr. Shena Jeffers Work Phone: [facility] 01-11-2024 21:44-0400 Body height 162.[address] Shena Jeffers Work Phone: [facility] 01-11-2024 21:44-0400 Body mass index (BMI) [Ratio] 30.7 kg/m2 Dr. Shena Jeffers Work Phone: [facility] 01-11-2024 21:44-0400 Body weight 81.[address] Shena Jeffers Work Phone: [facility] 12-28-2023 10:58-0500 Body mass index (BMI) [Ratio] 29.8 kg/m2 Dr. Shena Jeffers Work Phone: [facility] 12-28-2023 10:58-0500 Body temperature 98 [degF] Dr. Shena Jeffers Work Phone: [facility] 12-28-2023 10:58-0500 Body weight 78.[address] Shena Jeffers Work Phone: [facility] 12-28-2023 10:58-0500 Diastolic blood pressure 80 mm[Hg] Dr. Shena Jeffers Work Phone: [facility] 12-28-2023 10:58-0500 Heart rate 81 /min Dr. Shena Jeffers Work Phone: [facility] 12-28-2023 10:58-0500 Respiratory rate 15 /min Dr. Shena Jeffers Work Phone: [facility] 12-28-2023 10:58-0500 SaO2% (BldA) [Mass fraction] 95 % Dr. Shena Jeffers Work Phone: [facility] 12-28-2023 10:58-0500 Systolic blood pressure 124 mm[Hg] Dr. Shena Jeffers Work Phone: [facility] 09-28-2023 09:44-0500 Body mass index (BMI) [Ratio] 29.5 kg/m2 Dr. Shena Jeffers Work Phone: [facility] 09-28-2023 09:44-0500 Body temperature 98.6 [degF] Dr. Shena Jeffers Work Phone: [facility] 09-28-2023 09:44-0500 Body weight 78.[address] Shena Jeffers Work Phone: [facility] 09-28-2023 09:44-0500 Diastolic blood pressure 74 mm[Hg] Dr. Shena Jeffers Work Phone: [facility] 09-28-2023 09:44-0500 Heart rate 70 /min Dr. Shena Jeffers Work Phone: [facility] 09-28-2023 09:44-0500 Respiratory rate 16 /min Dr. Shena Jeffers Work Phone: [facility] 09-28-2023 09:44-0500 SaO2% (BldA) [Mass fraction] 97 % Dr. Shena Jeffers Work Phone: [facility] 09-28-2023 09:44-0500 Systolic blood pressure 136 mm[Hg] Dr. Shena Jeffers Work Phone: [facility] 08-04-2023 08:30-0400 Body height 162.56 cm MU William LPN [facility]; [facility] Work Phone: 08-04-2023 08:30-0400 Body mass index (BMI) [Ratio] 27.81 kg/m2 MU William LPN [facility]; [facility] Work Phone: 08-04-2023 08:30-0400 Body surface area Derived from formula 1.79 m2 MU William LPN [facility]; [facility] Work Phone: 08-04-2023 08:30-0400 Body temperature 97.9 [degF] MU William LPN [facility]; [facility] Work Phone: Comment on above: Method: Temporal 08-04-2023 08:30-0400 Body weight 73.48 kg MU William LPN [facility]; [facility] Work Phone: 08-04-2023 08:30-0400 Diastolic blood pressure 80 mm[Hg] MU William LPN [facility]; [facility] Work Phone: Comment on above: Patient Position: Sitting; Cuff Location : Left Arm; Cuff Size: Standard 08-04-2023 08:30-0400 Heart rate 82 /min MU William LPN [facility]; [facility] Work Phone: Comment on above: Pattern: Regular 08-04-2023 08:30-0400 Respiratory rate 24 /min MU Willima LPN [facility]; [facility] Work Phone: Comment on above: Pattern: Unlabored 08-04-2023 08:30-0400 SaO2% (BldA) [Mass fraction] 93 % MU William LPN [facility]; [facility] Work Phone: Comment on above: Room air 08-04-2023 08:30-0400 Systolic blood pressure 124 mm[Hg] MU William LPN [facility]; [facility] Work Phone: Comment on above: Patient Position: Sitting; Cuff Location : Left Arm; Cuff Size: Standard 07-20-2023 11:01-0400 Body height 162.56 cm Patti Mckeon LPN [facility]; [facility] Work Phone: 07-20-2023 11:01-0400 Body mass index (BMI) [Ratio] 27.87 kg/m2 Patti Mckeon LPN [facility]; [facility] Work Phone: 07-20-2023 11:01-0400 Body surface area Derived from formula 1.79 m2 Patti Mckeon LPN [facility]; [facility] Work Phone: 07-20-2023 11:01-0400 Body temperature 97.6 [degF] Patti Mckeon LPN [facility]; [facility] Work Phone: 07-20-2023 11:01-0400 Body weight 73.65 kg Patti Mckeon LPN [facility]; [facility] Work Phone: 07-20-2023 11:01-0400 Diastolic blood pressure 58 mm[Hg] Patti Mckeon LPN [facility]; [facility] Work Phone: Comment on above: Patient Position: Sitting; Cuff Location : Left Arm; Cuff Size: Standard 07-20-2023 11:01-0400 Heart rate 90 /min Patti Mckeon LPN [facility]; [facility] Work Phone: Comment on above: Pattern: Regular 07-20-2023 11:01-0400 Respiratory rate 16 /min Patti Mckeon LPN [facility]; [facility] Work Phone: Comment on above: Pattern: Unlabored 07-20-2023 11:01-0400 SaO2% (BldA) [Mass fraction] 93 % Patti Mike WEBB [facility]; [facility] Work Phone: Comment on above: Room air 07-20-2023 11:01-0400 Systolic blood pressure 138 mm[Hg] Patti Mike WEBB [facility]; [facility] Work Phone: Comment on above: Patient Position: Sitting; Cuff Location : Left Arm; Cuff Size: Standard 07-01-2023 12:10-0400 Body temperature 98.9 [degF] Dr. Shena Jeffers Work Phone: [facility] 07-01-2023 12:10-0400 Diastolic blood pressure 70 mm[Hg] Dr. Shena Jeffers Work Phone: [facility] 07-01-2023 12:10-0400 Heart rate 78 /min Dr. Shena Jeffers Work Phone: [facility] 07-01-2023 12:10-0400 Inhaled oxygen flow rate 2 L/min Dr. Shena Jeffers Work Phone: [facility] 07-01-2023 12:10-0400 Respiratory rate 18 /min Dr. Shena Jeffers Work Phone: [facility] 07-01-2023 12:10-0400 SaO2% (BldA) [Mass fraction] 99 % Dr. Shena Jeffers Work Phone: [facility] 07-01-2023 12:10-0400 Systolic blood pressure 144 mm[Hg] Dr. Shena Jeffers Work Phone: [facility] 07-01-2023 05:21-0400 Body mass index (BMI) [Ratio] 28.3 kg/m2 Dr. Shena Jeffers Work Phone: [facility] 07-01-2023 05:21-0400 Body weight 74.[address] Shena Jeffers Work Phone: [facility] 06-29-2023 23:21-0400 Body height 162.[address] Shena Jeffers Work Phone: [facility] 06-29-2023 21:50-0400 Body temperature 98.9 [degF] Dr. Shena Jeffers Work Phone: [facility] 06-29-2023 21:50-0400 Diastolic blood pressure 58 mm[Hg] Dr. Shena Jeffers Work Phone: [facility] 06-29-2023 21:50-0400 Heart rate 95 /min Dr. Shena Jeffers Work Phone: [facility] 06-29-2023 21:50-0400 Inhaled oxygen flow rate 2 L/min Dr. Shena Jeffers Work Phone: [facility] 06-29-2023 21:50-0400 Respiratory rate 18 /min Dr. Shena Jeffers Work Phone: [facility] 06-29-2023 21:50-0400 SaO2% (BldA) [Mass fraction] 95 % Dr. Shena Jeffers Work Phone: [facility] 06-29-2023 21:50-0400 Systolic blood pressure 150 mm[Hg] Dr. Shena Jeffers Work Phone: [facility] 06-29-2023 19:01-0400 Body mass index (BMI) [Ratio] 25.2 kg/m2 Dr. Shena Jeffers Work Phone: [facility] 06-29-2023 19:01-0400 Body weight 66.[address] Shena Jeffers Work Phone: [facility] 06-29-2023 18:58-0400 Body height 162.[address] Shena Jeffers Work Phone: [facility] 06-29-2023 10:07-0400 Body height 162.56 cm Amanda Slarb [employer]ELING STRATE[employer]IST [facility]; [facility] Work Phone: 06-29-2023 10:07-0400 Body mass index (BMI) [Ratio] 27.87 kg/m2 Amanda Slarb LABELING STRATEGIST [facility]; [facility] Work Phone: 06-29-2023 10:07-0400 Body surface area Derived from formula 1.79 m2 Amanda Slarb LABELING STRATEGIST [facility]; [facility] Work Phone: 06-29-2023 10:07-0400 Body temperature 97.5 [degF] Amanda Slarb LABELING STRATEGIST [facility]; [facility] Work Phone: Comment on above: Method: Temporal 06-29-2023 10:07-0400 Body weight 73.65 kg Amanda Olivasrb LABELING STRATEGIST [facility]; [facility] Work Phone: 06-29-2023 10:07-0400 Diastolic blood pressure 82 mm[Hg] Amanda Slarb LABELING STRATEGIST [facility]; [facility] Work Phone: Comment on above: Patient Position: Sitting; Cuff Location : Left Arm; Cuff Size: Standard 06-29-2023 10:07-0400 Heart rate 94 /min Amanda Brendonrb LABELING STRATEGIST [facility]; [facility] Work Phone: Comment on above: Pattern: Regular 06-29-2023 10:07-0400 Respiratory rate 15 /min Amanda Slarb LABELING STRATEGIST [facility]; [facility] Work Phone: Comment on above: Pattern: Unlabored 06-29-2023 10:07-0400 SaO2% (BldA) [Mass fraction] 95 % Amanda Slarb LABELING STRATEGIST [facility]; [facility] Work Phone: Comment on above: Room air 06-29-2023 10:07-0400 Systolic blood pressure 126 mm[Hg] Amanda Slarb LABELING STRATEGIST [facility]; [facility] Work Phone: Comment on above: Patient Position: Sitting; Cuff Location : Left Arm; Cuff Size: Standard 06-15-2023 09:43-0400 Body mass index (BMI) [Ratio] 28 kg/m2 Dr. Shena Jeffers Work Phone: [facility] 06-15-2023 09:43-0400 Body temperature 98 [degF] Dr. Shena Jeffers Work Phone: [facility] 06-15-2023 09:43-0400 Body weight 74.[address] Shena Jeffers Work Phone: [facility] 06-15-2023 09:43-0400 Diastolic blood pressure 74 mm[Hg] Dr. Shena Jeffers Work Phone: [facility] 06-15-2023 09:43-0400 Heart rate 70 /min Dr. Shena Jeffers Work Phone: [facility] 06-15-2023 09:43-0400 Respiratory rate 18 /min Dr. Shena Jeffers Work Phone: [facility] 06-15-2023 09:43-0400 SaO2% (BldA) [Mass fraction] 97 % Dr. Shena Jeffers Work Phone: [facility] 06-15-2023 09:43-0400 Systolic blood pressure 138 mm[Hg] Dr. Shena Jeffers Work Phone: [facility] 06-10-2023 08:57-0400 Body height 162.56 cm [facility]; [facility] Work Phone: 06-10-2023 08:57-0400 Body mass index (BMI) [Ratio] 27.87 kg/m2 [facility]; [facility] Work Phone: 06-10-2023 08:57-0400 Body surface area Derived from formula 1.79 m2 [facility]; [facility] Work Phone: 06-10-2023 08:57-0400 Body temperature 96 [degF] [facility]; [facility] Work Phone: 06-10-2023 08:57-0400 Body weight 73.65 kg [facility]; [facility] Work Phone: 06-10-2023 08:57-0400 Diastolic blood pressure 76 mm[Hg] [facility]; [facility] Work Phone: Comment on above: Patient Position: Sitting; Cuff Location : Left Arm; Cuff Size: Standard 06-10-2023 08:57-0400 Heart rate 78 /min [facility]; [facility] Work Phone: Comment on above: Pattern: Regular 06-10-2023 08:57-0400 Respiratory rate 18 /min [facility]; [facility] Work Phone: Comment on above: Pattern: Unlabored 06-10-2023 08:57-0400 SaO2% (BldA) [Mass fraction] 97 % [facility]; [facility] Work Phone: Comment on above: Room air 06-10-2023 08:57-0400 Systolic blood pressure 120 mm[Hg] [facility]; [facility] Work Phone: Comment on above: Patient Position: Sitting; Cuff Location : Left Arm; Cuff Size: Standard 04-08-2023 10:02-0400 Body height 162.56 cm Taylor Thrasher MA [facility]; [facility] Work Phone: 04-08-2023 10:02-0400 Body mass index (BMI) [Ratio] 26.69 kg/m2 Taylor Thrasher MA [facility]; [facility] Work Phone: 04-08-2023 10:02-0400 Body surface area Derived from formula 1.76 m2 Taylor Thrasher MA [facility]; [facility] Work Phone: 04-08-2023 10:02-0400 Body temperature 97.1 [degF] Taylor Thrasher MA [facility]; [facility] Work Phone: Comment on above: Method: Infrared 04-08-2023 10:02-0400 Body weight 70.53 kg Taylor Thrasher MA [facility]; [facility] Work Phone: 04-08-2023 10:02-0400 Diastolic blood pressure 64 mm[Hg] Taylor Thrasher MA [facility]; [facility] Work Phone: Comment on above: Patient Position: Sitting; Cuff Location : Left Arm; Cuff Size: Standard 04-08-2023 10:02-0400 Heart rate 76 /min Taylor Thrasher MA [facility]; [facility] Work Phone: Comment on above: Pattern: Regular 04-08-2023 10:02-0400 Respiratory rate 16 /min Taylor Thrasher MA [facility]; [facility] Work Phone: Comment on above: Pattern: Unlabored 04-08-2023 10:02-0400 SaO2% (BldA) [Mass fraction] 91 % Taylor Thrasher MA [facility]; [facility] Work Phone: Comment on above: Room air 04-08-2023 10:02-0400 Systolic blood pressure 125 mm[Hg] Taylor Thrasher MA [facility]; [facility] Work Phone: Comment on above: Patient Position: Sitting; Cuff Location : Left Arm; Cuff Size: Standard 03-28-2023 14:38-0400 Body temperature 96.7 [degF] Dr. Shena Jeffers Work Phone: [facility] 03-28-2023 14:38-0400 Diastolic blood pressure 59 mm[Hg] Dr. Shena Jeffers Work Phone: [facility] 03-28-2023 14:38-0400 Heart rate 78 /min Dr. Shena Jeffers Work Phone: [facility] 03-28-2023 14:38-0400 Respiratory rate 16 /min Dr. Shena Jeffers Work Phone: [facility] 03-28-2023 14:38-0400 SaO2% (BldA) [Mass fraction] 96 % Dr. Shena Jeffers Work Phone: [facility] 03-28-2023 14:38-0400 Systolic blood pressure 139 mm[Hg] Dr. Shena Jeffers Work Phone: [facility] 03-28-2023 14:05-0400 Body height 162.[address] Shena Jeffers Work Phone: [facility] 03-28-2023 14:05-0400 Body mass index (BMI) [Ratio] 24 kg/m2 Dr. Shena Jeffers Work Phone: [facility] 03-28-2023 14:05-0400 Body weight 63.[address] Shena Jeffers Work Phone: [facility] 03-10-2023 09:30-0400 Body height 162.56 cm [facility]; [facility] Work Phone: 03-10-2023 09:30-0400 Body mass index (BMI) [Ratio] 26.18 kg/m2 [facility]; [facility] Work Phone: 03-10-2023 09:30-0400 Body surface area Derived from formula 1.74 m2 [facility]; [facility] Work Phone: 03-10-2023 09:30-0400 Body temperature 97.5 [degF] [facility]; [facility] Work Phone: 03-10-2023 09:30-0400 Body weight 69.17 kg [facility]; [facility] Work Phone: 03-10-2023 09:30-0400 Diastolic blood pressure 60 mm[Hg] [facility]; [facility] Work Phone: Comment on above: Patient Position: Sitting; Cuff Location : Left Arm; Cuff Size: Standard 03-10-2023 09:30-0400 Heart rate 69 /min [facility]; [facility] Work Phone: Comment on above: Pattern: Regular 03-10-2023 09:30-0400 Respiratory rate 16 /min [facility]; [facility] Work Phone: Comment on above: Pattern: Unlabored 03-10-2023 09:30-0400 SaO2% (BldA) [Mass fraction] 95 % [facility]; [facility] Work Phone: Comment on above: Room air 03-10-2023 09:30-0400 Systolic blood pressure 120 mm[Hg] [facility]; [facility] Work Phone: Comment on above: Patient Position: Sitting; Cuff Location : Left Arm; Cuff Size: Standard 03-02-2023 10:23-0400 Body height 162.[address] Shena Jeffers Work Phone: [facility] 03-02-2023 10:23-0400 Body mass index (BMI) [Ratio] 26.4 kg/m2 Dr. Shena Jeffers Work Phone: [facility] 03-02-2023 10:23-0400 Body temperature 98.9 [degF] Dr. Shena Jeffers Work Phone: [facility] 03-02-2023 10:23-0400 Body weight 69.[address] Shena Jeffers Work Phone: [facility] 03-02-2023 10:23-0400 Diastolic blood pressure 60 mm[Hg] Dr. Shena Jeffers Work Phone: [facility] 03-02-2023 10:23-0400 Heart rate 91 /min Dr. Shena Jeffers Work Phone: [facility] 03-02-2023 10:23-0400 Respiratory rate 16 /min Dr. Shena Jeffers Work Phone: [facility] 03-02-2023 10:23-0400 SaO2% (BldA) [Mass fraction] 92 % Dr. Shena Jeffers Work Phone: [facility] 03-02-2023 10:23-0400 Systolic blood pressure 111 mm[Hg] Dr. Shena Jeffers Work Phone: [facility] 02-10-2023 08:56-0400 Body height 162.56 cm Haydee Sullivan MA [facility]; [facility] Work Phone: 02-10-2023 08:56-0400 Body mass index (BMI) [Ratio] 25.47 kg/m2 Haydee Sullivan MA [facility]; [facility] Work Phone: 02-10-2023 08:56-0400 Body surface area Derived from formula 1.72 m2 Haydee Sullivan MA [facility]; [facility] Work Phone: 02-10-2023 08:56-0400 Body temperature 95.5 [degF] Haydee Sullivan MA [facility]; [facility] Work Phone: 02-10-2023 08:56-0400 Body weight 67.3 kg Haydee Sullivan MA [facility]; [facility] Work Phone: 02-10-2023 08:56-0400 Diastolic blood pressure 60 mm[Hg] Haydee Sullivan MA [facility]; [facility] Work Phone: Comment on above: Patient Position: Sitting; Cuff Location : Left Arm; Cuff Size: Standard 02-10-2023 08:56-0400 Heart rate 78 /min Haydee Sullivan MA [facility]; [facility] Work Phone: Comment on above: Pattern: Regular 02-10-2023 08:56-0400 SaO2% (BldA) [Mass fraction] 94 % Haydee Sullivan MA [facility]; [facility] Work Phone: Comment on above: Room air 02-10-2023 08:56-0400 Systolic blood pressure 110 mm[Hg] Haydee Sullivan MA [facility]; [facility] Work Phone: Comment on above: Patient Position: Sitting; Cuff Location : Left Arm; Cuff Size: Standard 01-13-2023 11:43-0400 Body height 162.56 cm [facility]; [facility] Work Phone: 01-13-2023 11:43-0400 Body mass index (BMI) [Ratio] 25.47 kg/m2 [facility]; [facility] Work Phone: 01-13-2023 11:43-0400 Body surface area Derived from formula 1.72 m2 [facility]; [facility] Work Phone: 01-13-2023 11:43-0400 Body temperature 97.3 [degF] [facility]; [facility] Work Phone: 01-13-2023 11:43-0400 Body weight 67.3 kg [facility]; [facility] Work Phone: 01-13-2023 11:43-0400 Diastolic blood pressure 80 mm[Hg] [facility]; [facility] Work Phone: Comment on above: Patient Position: Sitting; Cuff Location : Left Arm; Cuff Size: Standard 01-13-2023 11:43-0400 Heart rate 73 /min [facility]; [facility] Work Phone: Comment on above: Pattern: Regular 01-13-2023 11:43-0400 Respiratory rate 16 /min [facility]; [facility] Work Phone: Comment on above: Pattern: Unlabored 01-13-2023 11:43-0400 SaO2% (BldA) [Mass fraction] 93 % [facility]; [facility] Work Phone: Comment on above: Room air 03-23-2023 11:43-0400 Systolic blood pressure 120 mm[Hg] [facility]; [facility] Work Phone: Comment on above: Patient Position: Sitting; Cuff Location : Left Arm; Cuff Size: Standard 12-02-2022 10:49-0500 Body height 162.56 cm [facility]; [facility] Work Phone: 12-02-2022 10:49-0500 Body mass index (BMI) [Ratio] 24.55 kg/m2 [facility]; [facility] Work Phone: 12-02-2022 10:49-0500 Body surface area Derived from formula 1.7 m2 [facility]; [facility] Work Phone: 12-02-2022 10:49-0500 Body temperature 98 [degF] [facility]; [facility] Work Phone: 12-02-2022 10:49-0500 Body weight 64.86 kg [facility]; [facility] Work Phone: 12-02-2022 10:49-0500 Diastolic blood pressure 82 mm[Hg] [facility]; [facility] Work Phone: Comment on above: Patient Position: Sitting; Cuff Location : Left Arm; Cuff Size: Standard 12-02-2022 10:49-0500 Heart rate 76 /min [facility]; [facility] Work Phone: Comment on above: Pattern: Regular 12-02-2022 10:49-0500 Respiratory rate 18 /min [facility]; [facility] Work Phone: Comment on above: Pattern: Unlabored 12-02-2022 10:49-0500 SaO2% (BldA) [Mass fraction] 93 % [facility]; [facility] Work Phone: Comment on above: Room air 12-02-2022 10:49-0500 Systolic blood pressure 126 mm[Hg] Marincecilia Cavanaugh CMA [facility]; [facility] Work Phone: Comment on above: Patient Position: Sitting; Cuff Location : Left Arm; Cuff Size: Standard 11-26-2022 15:43-0500 Body temperature 97.6 [degF] Dr. Shena Jeffers Work Phone: [facility] 11-26-2022 15:43-0500 Diastolic blood pressure 59 mm[Hg] Dr. Shena Jeffers Work Phone: [facility] 11-26-2022 15:43-0500 Heart rate 84 /min Dr. Shena Jeffers Work Phone: [facility] 11-26-2022 15:43-0500 Respiratory rate 18 /min Dr. Shena Jeffers Work Phone: [facility] 11-26-2022 15:43-0500 SaO2% (BldA) [Mass fraction] 93 % Dr. Shena Jeffers Work Phone: [facility] 11-26-2022 15:43-0500 Systolic blood pressure 154 mm[Hg] Dr. Shena Jeffers Work Phone: [facility] 11-26-2022 13:45-0500 Inhaled oxygen flow rate 2 L/min Dr. Shena Jeffers Work Phone: [facility] 11-26-2022 12:00-0500 Body height 162.56 cm Shena Jeffers DO Work Phone: [facility]; [facility] Work Phone: 11-26-2022 12:00-0500 Body mass index (BMI) [Ratio] 24.55 kg/m2 Shena Jeffers DO Work Phone: [facility]; [facility] Work Phone: 11-26-2022 12:00-0500 Body surface area Derived from formula 1.7 m2 Shena Jeffers DO Work Phone: [facility]; [facility] Work Phone: 11-26-2022 12:00-0500 Body temperature 97.8 [degF] Shena Jeffers DO Work Phone: [facility]; [facility] Work Phone: Comment on above: Method: Oral 11-26-2022 12:00-0500 Body weight 64.86 kg Shena Jeffers DO Work Phone: [facility]; [facility] Work Phone: 11-26-2022 12:00-0500 Diastolic blood pressure 70 mm[Hg] Shena Jeffers DO Work Phone: [facility]; [facility] Work Phone: Comment on above: Patient Position: Sitting 11-26-2022 12:00-0500 Heart rate 88 /min Shena Jeffers DO Work Phone: [facility]; [facility] Work Phone: Comment on above: Pattern: Regular 11-26-2022 12:00-0500 Systolic blood pressure 136 mm[Hg] Shena Jeffers DO Work Phone: [facility]; [facility] Work Phone: Comment on above: Patient Position: Sitting 11-23-2022 14:24-0500 Body height 162.[address] Shena Jeffers Work Phone: [facility] 11-23-2022 14:24-0500 Body weight 66.[address] Shena Jeffers Work Phone: [facility] 11-22-2022 18:04-0500 Body mass index (BMI) [Ratio] 25.2 kg/m2 Dr. Shena Jeffers Work Phone: [facility] 11-18-2022 11:25-0500 Body mass index (BMI) [Ratio] 25.2 kg/m2 Dr. Shena Jeffers Work Phone: [facility] 11-18-2022 11:25-0500 Body temperature 97 [degF] Dr. Shena Jeffers Work Phone: [facility] 11-18-2022 11:25-0500 Body weight 66.[address] Shena Jeffers Work Phone: [facility] 11-18-2022 11:25-0500 Diastolic blood pressure 79 mm[Hg] Dr. Shena Jeffers Work Phone: [facility] 11-18-2022 11:25-0500 Heart rate 94 /min Dr. Shena Jeffers Work Phone: [facility] 11-18-2022 11:25-0500 Respiratory rate 20 /min Dr. Shena Jeffers Work Phone: [facility] 11-18-2022 11:25-0500 SaO2% (BldA) [Mass fraction] 90 % Dr. Shena Jeffers Work Phone: [facility] 11-18-2022 11:25-0500 Systolic blood pressure 143 mm[Hg] Dr. Shena Jeffers Work Phone: [facility] 10-28-2022 10:32-0500 Body height 162.56 cm [facility]; [facility] Work Phone: 10-28-2022 10:32-0500 Body mass index (BMI) [Ratio] 24.61 kg/m2 [facility]; [facility] Work Phone: 10-28-2022 10:32-0500 Body surface area [facility] from [facility] 1.[facility]; [facility] Work Phone: 10-28-2022 10:32-0500 Body temperature 98.5 [degF] [facility]; [facility] Work Phone: 10-28-2022 10:32-0500 Body weight 65.03 kg [facility]; [facility] Work Phone: 10-28-2022 10:32-0500 Diastolic blood pressure 68 mm[Hg] [facility]; [facility] Work Phone: Comment on above: Patient Position: Sitting; Cuff Location : Left Arm; Cuff Size: Standard 10-28-2022 10:32-0500 Heart rate 90 /min [facility]; [facility] Work Phone: Comment on above: Pattern: Regular 10-28-2022 10:32-0500 Respiratory rate 18 /min [facility]; [facility] Work Phone: Comment on above: Pattern: Unlabored 10-28-2022 10:32-0500 SaO2% (BldA) [Mass fraction] 97 % [facility]; [facility] Work Phone: Comment on above: Room air 10-28-2022 10:32-0500 Systolic blood pressure 138 mm[Hg] [facility]; [facility] Work Phone: Comment on above: Patient Position: Sitting; Cuff Location : Left Arm; Cuff Size: Standard 10-06-2022 10:49-0500 Body mass index (BMI) [Ratio] 24.5 kg/m2 Dr. Shena Jeffers Work Phone: [facility] 10-06-2022 10:49-0500 Body temperature 97.6 [degF] Dr. Shena Jeffers Work Phone: [facility] 10-06-2022 10:49-0500 Body weight 64.[address] Shena Jeffers Work Phone: [facility] 10-06-2022 10:49-0500 Diastolic blood pressure 66 mm[Hg] Dr. Shena Jeffers Work Phone: [facility] 10-06-2022 10:49-0500 Heart rate 90 /min Dr. Shena Jeffers Work Phone: [facility] 10-06-2022 10:49-0500 Respiratory rate 18 /min Dr. Shena Jeffers Work Phone: [facility] 10-06-2022 10:49-0500 SaO2% (BldA) [Mass fraction] 93 % Dr. Shena Jeffers Work Phone: [facility] 10-06-2022 10:49-0500 Systolic blood pressure 115 mm[Hg] Dr. Shena Jeffers Work Phone: [facility] 09-10-2022 11:59-0500 Body temperature 98.3 [degF] Dr. Shena Jeffers Work Phone: [facility] 09-10-2022 11:59-0500 Diastolic blood pressure 65 mm[Hg] Dr. Shena Jeffers Work Phone: [facility] 09-10-2022 11:59-0500 Heart rate 80 /min Dr. Shena Jeffers Work Phone: [facility] 09-10-2022 11:59-0500 Respiratory rate 18 /min Dr. Shena Jeffers Work Phone: [facility] 09-10-2022 11:59-0500 SaO2% (BldA) [Mass fraction] 93 % Dr. Shena Jeffers Work Phone: [facility] 09-10-2022 11:59-0500 Systolic blood pressure 160 mm[Hg] Dr. Shena Jeffers Work Phone: [facility] 09-10-2022 09:52-0500 Inhaled oxygen flow rate 2 L/min Dr. Shena Jeffers Work Phone: [facility] 09-10-2022 04:24-0500 Body weight 69.[address] Shena Jeffers Work Phone: [facility] 09-08-2022 16:24-0500 Body height 162.[address] Shena Jeffers Work Phone: [facility] Work Phone: 09-08-2022 10:57-0500 Body mass index (BMI) [Ratio] 24.7 kg/m2 Dr. Shena Jeffers Work Phone: [facility] 09-08-2022 10:00-0500 Body temperature 98 [degF] Dr. Shena Jeffers Work Phone: [facility] Work Phone: 09-08-2022 10:00-0500 Diastolic blood pressure 44 mm[Hg] Dr. Shena Jeffers Work Phone: [facility] Work Phone: 09-08-2022 10:00-0500 Heart rate 109 /min Dr. Shena Jefefrs Work Phone: [facility] Work Phone: 09-08-2022 10:00-0500 Respiratory rate 20 /min Dr. Shena Jeffers Work Phone: [facility] Work Phone: 09-08-2022 10:00-0500 SaO2% (BldA) [Mass fraction] 96 % Dr. Shena Jeffers Work Phone: [facility] Work Phone: 09-08-2022 10:00-0500 Systolic blood pressure 129 mm[Hg] Dr. Shena Jeffers Work Phone: [facility] Work Phone: 09-08-2022 07:50-0500 Body height 162.[address] Shena Jeffers Work Phone: [facility] Work Phone: 09-08-2022 07:50-0500 Body mass index (BMI) [Ratio] 26 kg/m2 Dr. Shena Jeffers Work Phone: [facility] Work Phone: 09-08-2022 07:50-0500 Body weight 68.[address] Shena Jeffers Work Phone: [facility] Work Phone: 08-11-2022 09:13-0400 Body height 162.[address] Shena Jeffers Work Phone: [facility] Work Phone: 08-11-2022 09:13-0400 Body mass index (BMI) [Ratio] 24.4 kg/m2 Dr. Shena Jeffers Work Phone: [facility] 08-11-2022 09:13-0400 Body temperature 95.8 [degF] Dr. Shena Jeffers Work Phone: [facility] 08-11-2022 09:13-0400 Body weight 64.[address] Shena Jeffers Work Phone: [facility] 08-11-2022 09:13-0400 Diastolic blood pressure 76 mm[Hg] Dr. Shena Jeffers Work Phone: [facility] 08-11-2022 09:13-0400 Heart rate 91 /min Dr. Shena Jeffers Work Phone: [facility] 08-11-2022 09:13-0400 Respiratory rate 18 /min Dr. Shena Jeffers Work Phone: [facility] 08-11-2022 09:13-0400 SaO2% (BldA) [Mass fraction] 91 % Dr. Shena Jeffers Work Phone: [facility] 08-11-2022 09:13-0400 Systolic blood pressure 174 mm[Hg] Dr. Shena Jeffers Work Phone: [facility] 06-07-2022 12:00-0400 Inhaled oxygen flow rate 2 L/min Dr. Shena Jeffers Work Phone: [facility] Work Phone: 06-07-2022 12:00-0400 SaO2% (BldA) [Mass fraction] 90 % Dr. Shena Jeffers Work Phone: [facility] Work Phone: 06-07-2022 10:47-0400 Heart rate 79 /min Dr. Shena Jeffers Work Phone: [facility] Work Phone: 06-07-2022 10:47-0400 Respiratory rate 14 /min Dr. Shena Jeffers Work Phone: [facility] Work Phone: 06-07-2022 10:26-0400 Diastolic blood pressure 46 mm[Hg] Dr. Shena Jeffers Work Phone: [facility] Work Phone: 06-07-2022 10:26-0400 Systolic blood pressure 113 mm[Hg] Dr. Shena Jeffers Work Phone: [facility] Work Phone: 06-07-2022 09:51-0400 Body temperature 96.7 [degF] Dr. Shena Jeffers Work Phone: [facility] Work Phone: 06-07-2022 06:00-0400 Body weight [address] Shena Jeffers Work Phone: [facility] Work Phone: 06-05-2022 15:10-0400 Body height 162.[address] Shena Jeffers Work Phone: [facility] Work Phone: 06-05-2022 03:10-0400 Body mass index (BMI) [Ratio] 24.5 kg/m2 Dr. Shena Jeffers Work Phone: [facility] Work Phone: 06-05-2022 02:27-0400 Body temperature 98.5 [degF] Dr. Shena Jeffers Work Phone: [facility] Work Phone: 06-05-2022 02:27-0400 Diastolic blood pressure 55 mm[Hg] Dr. Shena Jeffers Work Phone: [facility] Work Phone: 06-05-2022 02:27-0400 Heart rate 112 /min Dr. Shena Jeffers Work Phone: [facility] Work Phone: 06-05-2022 02:27-0400 Inhaled oxygen flow rate 4 L/min Dr. Shena Jeffers Work Phone: [facility] Work Phone: 06-05-2022 02:27-0400 Respiratory rate 20 /min Dr. Shena Jeffers Work Phone: [facility] Work Phone: 06-05-2022 02:27-0400 SaO2% (BldA) [Mass fraction] 95 % Dr. Shena Jeffers Work Phone: [facility] Work Phone: 06-05-2022 02:27-0400 Systolic blood pressure 121 mm[Hg] Dr. Shena Jeffers Work Phone: [facility] Work Phone: 06-04-2022 23:01-0400 Body height 157.[address] Shena Jeffers Work Phone: [facility] Work Phone: 06-04-2022 23:01-0400 Body mass index (BMI) [Ratio] 27.6 kg/m2 Dr. Shena Jeffers Work Phone: [facility] Work Phone: 06-04-2022 23:01-0400 Body weight 68.[address] Shena Jeffers Work Phone: [facility] Work Phone: 06-03-2022 08:44-0400 Body height 162.56 cm Saray Huber [facility]; [facility] Work Phone: Comment on above: 97% on 06-03-2022 08:44-0400 Body mass index (BMI) [Ratio] 24.74 kg/m2 Saray Kolbius [facility]; [facility] Work Phone: Comment on above: 97% on 06-03-2022 08:44-0400 Body surface area Derived from formula 1.7 m2 Saray Kolbius [facility]; [facility] Work Phone: Comment on above: 97% on 06-03-2022 08:44-0400 Body temperature 96.9 [degF] Saray Huber [employer] [facility]; [facility] Work Phone: Comment on above: Method: Oral 97% on 06-03-2022 08:44-0400 Body weight 65.38 kg Saray Huber [facility]; [facility] Work Phone: Comment on above: 97% on 06-03-2022 08:44-0400 Diastolic blood pressure 70 mm[Hg] Saray Kolbius [employer] [facility]; [facility] Work Phone: Comment on above: Patient Position: Sitting; Cuff Location : Left Arm; Cuff Size: Standard 97% on 06-03-2022 08:44-0400 Heart rate 101 /min Saray Huber [facility]; [facility] Work Phone: Comment on above: Pattern: Regular 97% on 06-03-2022 08:44-0400 Respiratory rate 22 /min Saray Kolbius [employer] [facility]; [facility] Work Phone: Comment on above: Pattern: Labored 97% on 06-03-2022 08:44-0400 SaO2% (BldA) [Mass fraction] 97 % Saray Huber [facility]; [facility] Work Phone: Comment on above: 3L O2 06-03-2022 08:44-0400 SaO2% (BldA) [Mass fraction] 83 % Shena Jeffers DO Work Phone: [facility]; [facility] Work Phone: Comment on above: Room air 97% on 3L 06-03-2022 08:44-0400 Systolic blood pressure 132 mm[Hg] Saray Huber [facility]; [facility] Work Phone: Comment on above: Patient Position: Sitting; Cuff Location : Left Arm; Cuff Size: Standard 97% on L 05-26-2022 14:13-0400 Body mass index (BMI) [Ratio] 25.6 kg/m2 Dr. Shena Jeffers Work Phone: [facility] Work Phone: 05-26-2022 14:13-0400 Body temperature 97 [degF] Dr. Shena Jeffers Work Phone: [facility] Work Phone: 05-26-2022 14:13-0400 Body weight 64.[address] Shena Jeffers Work Phone: [facility] Work Phone: 05-26-2022 14:13-0400 Diastolic blood pressure 70 mm[Hg] Dr. Shena Jeffers Work Phone: [facility] Work Phone: 05-26-2022 14:13-0400 Heart rate 96 /min Dr. Shena Jeffers Work Phone: [facility] Work Phone: 05-26-2022 14:13-0400 Respiratory rate 18 /min Dr. Shena Jeffers Work Phone: [facility] Work Phone: 05-26-2022 14:13-0400 SaO2% (BldA) [Mass fraction] 93 % Dr. Shena Jeffers Work Phone: [facility] Work Phone: 05-26-2022 14:13-0400 Systolic blood pressure 142 mm[Hg] Dr. Shena Jeffers Work Phone: [facility] Work Phone: 04-23-2022 14:29-0400 Body height 158.[address] Shena Jeffers Work Phone: [facility] Work Phone: 04-23-2022 14:29-0400 Body mass index (BMI) [Ratio] 26.4 kg/m2 Dr. Shena Jeffers Work Phone: [facility] Work Phone: 04-23-2022 14:29-0400 Body temperature 96.4 [degF] Dr. Shena Jeffers Work Phone: [facility] Work Phone: 04-23-2022 14:29-0400 Body weight 66.[address] Shena Jeffers Work Phone: [facility] Work Phone: 04-23-2022 14:29-0400 Diastolic blood pressure 70 mm[Hg] Dr. Shena Jeffers Work Phone: [facility] Work Phone: 04-23-2022 14:29-0400 Heart rate 110 /min Dr. Shena Jeffers Work Phone: [facility] Work Phone: 04-23-2022 14:29-0400 Respiratory rate 20 /min Dr. Shena Jeffers Work Phone: [facility] Work Phone: 04-23-2022 14:29-0400 SaO2% (BldA) [Mass fraction] 98 % Dr. Shena Jeffers Work Phone: [facility] Work Phone: 04-23-2022 14:29-0400 Systolic blood pressure 140 mm[Hg] Dr. Shena Jeffers Work Phone: [facility] Work Phone: 03-01-2022 08:39-0400 Body height 162.56 cm Saray Huber [employer] [facility]; [facility] Work Phone: 03-01-2022 08:39-0400 Body mass index (BMI) [Ratio] 26.09 kg/m2 Saray Huber [facility]; [facility] Work Phone: 03-01-2022 08:39-0400 Body surface area Derived from formula 1.74 m2 Saray Huber [employer] [facility]; [facility] Work Phone: 03-01-2022 08:39-0400 Body temperature 97.3 [degF] Saray Huber [employer] [facility]; [facility] Work Phone: Comment on above: Method: Infrared 03-01-2022 08:39-0400 Body weight 68.95 kg Saray Huber [employer] [facility]; [facility] Work Phone: 03-01-2022 08:39-0400 Heart rate 90 /min Saray Huber [facility]; [facility] Work Phone: Comment on above: Pattern: Regular 03-01-2022 08:39-0400 Respiratory rate 16 /min Saray Huber CMA [facility]; [facility] Work Phone: Comment on above: Pattern: Unlabored 03-01-2022 08:39-0400 SaO2% (BldA) [Mass fraction] 94 % Saray Huber [facility]; [facility] Work Phone: Comment on above: Room air 02-24-2022 16:14-0400 Heart rate 92 /min Dr. Shena Jeffers Work Phone: [facility] Work Phone: 02-24-2022 16:14-0400 Respiratory rate 25 /min Dr. Shena Jeffers Work Phone: [facility] Work Phone: 02-24-2022 16:14-0400 SaO2% (BldA) [Mass fraction] 94 % Dr. Shena Jeffers Work Phone: [facility] Work Phone: 02-24-2022 14:24-0400 Body height 162.[address] Shena Jeffers Work Phone: [facility] Work Phone: 02-24-2022 14:24-0400 Body mass index (BMI) [Ratio] 25.5 kg/m2 Dr. Shena Jeffers Work Phone: [facility] Work Phone: 02-24-2022 14:24-0400 Body temperature 98 [degF] Dr. Shena Jeffers Work Phone: [facility] Work Phone: 02-24-2022 14:24-0400 Body weight 67.[address] Shena Jeffers Work Phone: [facility] Work Phone: 02-24-2022 14:24-0400 Diastolic blood pressure 57 mm[Hg] Dr. Shena Jeffers Work Phone: [facility] Work Phone: 02-24-2022 14:24-0400 Systolic blood pressure 124 mm[Hg] Dr. Shena Jeffers Work Phone: [facility] Work Phone: 02-11-2022 07:17-0400 Body height 162.56 cm Taylor Thrasher MA [facility]; [facility] Work Phone: 02-11-2022 07:17-0400 Body mass index (BMI) [Ratio] 26.09 kg/m2 Taylor Thrasher MA [facility]; [facility] Work Phone: 02-11-2022 07:17-0400 Body surface area Derived from formula 1.74 m2 Taylor Thrasher MA [facility]; [facility] Work Phone: 02-11-2022 07:17-0400 Body temperature 97.1 [degF] Taylor Thrasher MA [facility]; [facility] Work Phone: Comment on above: Method: Infrared 02-11-2022 07:17-0400 Body weight 68.95 kg Taylor Thrasher MA [facility]; [facility] Work Phone: 02-11-2022 07:17-0400 Diastolic blood pressure 64 mm[Hg] Taylor Thrasher MA [facility]; [facility] Work Phone: Comment on above: Patient Position: Sitting; Cuff Location : Left Arm; Cuff Size: Standard 02-11-2022 07:17-0400 Heart rate 88 /min Taylor Thrasher MA [facility]; [facility] Work Phone: Comment on above: Pattern: Regular 02-11-2022 07:17-0400 Respiratory rate 16 /min Taylor Thrasher MA [facility]; [facility] Work Phone: Comment on above: Pattern: Unlabored 02-11-2022 07:17-0400 SaO2% (BldA) [Mass fraction] 89 % Taylor Thrasher MA [facility]; [facility] Work Phone: Comment on above: Room air 02-11-2022 07:17-0400 Systolic blood pressure 116 mm[Hg] Taylor Thrasher MA [facility]; [facility] Work Phone: Comment on above: Patient Position: Sitting; Cuff Location : Left Arm; Cuff Size: Standard 02-10-2022 14:43-0400 SaO2% (BldA) [Mass fraction] 95 % Dr. Shena Jeffers Work Phone: [facility] Work Phone: 02-10-2022 14:36-0400 Body temperature 98.3 [degF] Dr. Shena Jeffers Work Phone: [facility] Work Phone: 02-10-2022 14:36-0400 Diastolic blood pressure 70 mm[Hg] Dr. Shena Jeffers Work Phone: [facility] Work Phone: 02-10-2022 14:36-0400 Heart rate 74 /min Dr. Shena Jeffers Work Phone: [facility] Work Phone: 02-10-2022 14:36-0400 Respiratory rate 18 /min Dr. Shena Jeffers Work Phone: [facility] Work Phone: 02-10-2022 14:36-0400 Systolic blood pressure 118 mm[Hg] Dr. Shena Jeffers Work Phone: [facility] Work Phone: 02-10-2022 07:33-0400 Inhaled oxygen flow rate 2 L/min Dr. Shena Jeffers Work Phone: [facility] Work Phone: 02-07-2022 12:46-0400 Body weight 67.[address] Shena Jeffers Work Phone: [facility] Work Phone: 02-06-2022 12:54-0400 Body mass index (BMI) [Ratio] 25 kg/m2 Dr. Shena Jeffers Work Phone: [facility] Work Phone: 02-06-2022 12:17-0400 Body temperature 97.9 [degF] Dr. Shena Jeffers Work Phone: [facility] Work Phone: 02-06-2022 12:17-0400 Diastolic blood pressure 59 mm[Hg] Dr. Shena Jeffers Work Phone: [facility] Work Phone: 02-06-2022 12:17-0400 Heart rate 102 /min Dr. Shena Jeffers Work Phone: [facility] Work Phone: 02-06-2022 12:17-0400 Respiratory rate 17 /min Dr. Shena Jeffers Work Phone: [facility] Work Phone: 02-06-2022 12:17-0400 SaO2% (BldA) [Mass fraction] 93 % Dr. Shena Jeffers Work Phone: [facility] Work Phone: 02-06-2022 12:17-0400 Systolic blood pressure 118 mm[Hg] Dr. Shena Jeffers Work Phone: [facility] Work Phone: 02-06-2022 09:12-0400 Body height 162.[address] Shena Jeffers Work Phone: [facility] Work Phone: 02-06-2022 09:12-0400 Body mass index (BMI) [Ratio] 25.1 kg/m2 Dr. Shena Jeffers Work Phone: [facility] Work Phone: 02-06-2022 09:12-0400 Body weight 66.[address] Shena Jeffers Work Phone: [facility] Work Phone: 01-30-2022 15:00-0400 Heart rate 90 /min Dr. Shena Jeffers Work Phone: [facility] Work Phone: 01-30-2022 14:30-0400 Body temperature 98.4 [degF] Dr. Shena Jeffers Work Phone: [facility] Work Phone: 04-09-2022 14:30-0400 Diastolic blood pressure 67 mm[Hg] Dr. Shena Jeffers Work Phone: [facility] Work Phone: 01-30-2022 14:30-0400 Respiratory rate 16 /min Dr. Shena Jeffers Work Phone: [facility] Work Phone: 01-30-2022 14:30-0400 SaO2% (BldA) [Mass fraction] 93 % Dr. Shena Jeffers Work Phone: [facility] Work Phone: 01-30-2022 14:30-0400 Systolic blood pressure 137 mm[Hg] Dr. Shena Jeffers Work Phone: [facility] Work Phone: 01-30-2022 09:27-0400 Inhaled oxygen flow rate 2 L/min Dr. Shena Jeffers Work Phone: [facility] Work Phone: 01-30-2022 06:00-0400 Body weight 70.[address] Shena Jeffers Work Phone: [facility] Work Phone: 01-29-2022 11:00-0400 Heart rate 88 /min Dr. Shena Jeffers Work Phone: [facility] Work Phone: 01-29-2022 10:43-0400 Diastolic blood pressure 109 mm[Hg] Dr. Shena Jeffers Work Phone: [facility] Work Phone: 01-29-2022 10:43-0400 Systolic blood pressure 147 mm[Hg] Dr. Shena Jeffers Work Phone: [facility] Work Phone: 01-29-2022 09:27-0400 Body height [address] Shena Jeffers Work Phone: [facility] Work Phone: 01-29-2022 09:27-0400 Body weight [address] Shena Jeffers Work Phone: [facility] Work Phone: 01-29-2022 09:00-0400 Body temperature 98.6 [degF] Dr. Shena Jeffers Work Phone: [facility] Work Phone: 01-29-2022 09:00-0400 Diastolic blood pressure 64 mm[Hg] Dr. Shena Jeffers Work Phone: [facility] Work Phone: 01-29-2022 09:00-0400 Heart rate 95 /min Dr. Shena Jeffers Work Phone: [facility] Work Phone: 01-29-2022 09:00-0400 Respiratory rate 16 /min Dr. Shena Jeffers Work Phone: [facility] Work Phone: 01-29-2022 09:00-0400 SaO2% (BldA) [Mass fraction] 96 % Dr. Shena Jeffers Work Phone: [facility] Work Phone: 01-29-2022 09:00-0400 Systolic blood pressure 138 mm[Hg] Dr. Shena Jeffers Work Phone: [facility] Work Phone: 01-28-2022 00:05-0400 Body mass index (BMI) [Ratio] 23.8 kg/m2 Dr. Shena Jeffers Work Phone: [facility] Work Phone: 01-27-2022 22:48-0400 Body temperature 98 [degF] Dr. Shena Jeffers Work Phone: [facility] Work Phone: 01-27-2022 22:48-0400 Diastolic blood pressure 35 mm[Hg] Dr. Shena Jeffers Work Phone: [facility] Work Phone: 01-27-2022 22:48-0400 Heart rate 126 /min Dr. Shena Jeffers Work Phone: [facility] Work Phone: 01-27-2022 22:48-0400 Respiratory rate 27 /min Dr. Shena Jeffers Work Phone: [facility] Work Phone: 01-27-2022 22:48-0400 SaO2% (BldA) [Mass fraction] 98 % Dr. Shena Jeffers Work Phone: [facility] Work Phone: 01-27-2022 22:48-0400 Systolic blood pressure 118 mm[Hg] Dr. Shena Jeffers Work Phone: [facility] Work Phone: 01-27-2022 21:02-0400 Body height 165.[address] Shena Jeffers Work Phone: [facility] Work Phone: 01-27-2022 21:02-0400 Body mass index (BMI) [Ratio] 23.4 kg/m2 Dr. Shena Jeffers Work Phone: [facility] Work Phone: 01-27-2022 21:02-0400 Body weight [address] Shena Jeffers Work Phone: [facility] Work Phone: 01-22-2022 12:32-0400 Body height 162.56 cm [facility]; [facility] Work Phone: 01-22-2022 12:32-0400 Body mass index (BMI) [Ratio] 27.46 kg/m2 [facility]; [facility] Work Phone: 01-22-2022 12:32-0400 Body surface area Derived from formula 1.78 m2 Krystal Cm [facility]; [facility] Work Phone: 01-22-2022 12:32-0400 Body temperature 97.1 [degF] Krystal Cm [facility]; [facility] Work Phone: Comment on above: Method: Thermal Scan 01-22-2022 12:32-0400 Body weight 72.58 kg Krystal Cm [facility]; [facility] Work Phone: 01-22-2022 12:32-0400 Diastolic blood pressure 70 mm[Hg] Krystal Cm [facility]; [facility] Work Phone: Comment on above: Patient Position: Sitting; Cuff Location : Left Arm; Cuff Size: Standard 01-22-2022 12:32-0400 Heart rate 80 /min Krystal Cm [facility]; [facility] Work Phone: Comment on above: Pattern: Regular 01-22-2022 12:32-0400 Respiratory rate 16 /min Krystal Cm [facility]; [facility] Work Phone: Comment on above: Pattern: Unlabored 01-22-2022 12:32-0400 SaO2% (BldA) [Mass fraction] 95 % Krystal Cm [facility]; [facility] Work Phone: Comment on above: 2L O2 01-22-2022 12:32-0400 Systolic blood pressure 118 mm[Hg] Krystal Cm [facility]; [facility] Work Phone: Comment on above: Patient Position: Sitting; Cuff Location : Left Arm; Cuff Size: Standard 01-20-2022 12:16-0400 Body height 162.56 cm Ruth Castellano LPN [facility]; [facility] Work Phone: 01-20-2022 12:16-0400 Body mass index (BMI) [Ratio] 27.46 kg/m2 Ruth Castellano LPN [facility]; [facility] Work Phone: 01-20-2022 12:16-0400 Body surface area Derived from formula 1.78 m2 Ruth Castellano LPN [facility]; [facility] Work Phone: 01-20-2022 12:16-0400 Body temperature 97.8 [degF] Ruth Castellano LPN [facility]; [facility] Work Phone: Comment on above: Method: Infrared 01-20-2022 12:16-0400 Body weight 72.58 kg Ruth Castellano LPN [facility]; [facility] Work Phone: 01-20-2022 12:16-0400 Diastolic blood pressure 64 mm[Hg] Ruth Castellano LPN [facility]; [facility] Work Phone: Comment on above: Patient Position: Sitting; Cuff Location : Left Arm; Cuff Size: Standard 01-20-2022 12:16-0400 Heart rate 94 /min Ruth Castellano LPN [facility]; [facility] Work Phone: Comment on above: Pattern: Regular 01-20-2022 12:16-0400 Respiratory rate 16 /min Ruth Castellano LPN [facility]; [facility] Work Phone: Comment on above: Pattern: Unlabored 01-20-2022 12:16-0400 SaO2% (BldA) [Mass fraction] 91 % Ruth Castellano LPN [facility]; [facility] Work Phone: Comment on above: 2L O2 01-20-2022 12:16-0400 Systolic blood pressure 102 mm[Hg] Ruth Castellano LPN [facility]; [facility] Work Phone: Comment on above: Patient Position: Sitting; Cuff Location : Left Arm; Cuff Size: Standard 12-21-2021 10:33-0500 Body height 162.56 cm Saray Huber [facility]; [facility] Work Phone: Comment on above: no vs taken as this is phone encounter d ue to covid 12-21-2021 10:33-0500 Body mass index (BMI) [Ratio] 27.46 kg/m2 Saray Huber [facility]; [facility] Work Phone: Comment on above: no vs taken as this is phone encounter d ue to covid 12-21-2021 10:33-0500 Body surface area Derived from formula 1.78 m2 Saray Kolbius [facility]; [facility] Work Phone: Comment on above: no vs taken as this is phone encounter d ue to covid 12-21-2021 10:33-0500 Body weight 72.58 kg Saray Huber [facility]; [facility] Work Phone: Comment on above: no vs taken as this is phone encounter d ue to covid 12-08-2021 13:04-0500 Body height 162.56 cm Krystal Cm [facility]; [facility] Work Phone: 12-08-2021 13:04-0500 Body mass index (BMI) [Ratio] 27.46 kg/m2 [facility]; [facility] Work Phone: 12-08-2021 13:04-0500 Body surface area Derived from formula 1.78 m2 [facility]; [facility] Work Phone: 12-08-2021 13:04-0500 Body temperature 97.3 [degF] [facility]; [facility] Work Phone: Comment on above: Method: Thermal Scan 12-08-2021 13:04-0500 Body weight 72.58 kg [facility]; [facility] Work Phone: 12-08-2021 13:04-0500 Diastolic blood pressure 62 mm[Hg] Krystal Cm [facility]; [facility] Work Phone: Comment on above: Patient Position: Sitting; Cuff Location : Left Arm; Cuff Size: Standard 12-08-2021 13:04-0500 Heart rate 72 /min Krystal Cm [facility]; [facility] Work Phone: Comment on above: Pattern: Regular 12-08-2021 13:04-0500 Respiratory rate 16 /min Krystal Cm [facility]; [facility] Work Phone: Comment on above: Pattern: Unlabored 12-08-2021 13:04-0500 Systolic blood pressure 140 mm[Hg] Krystal Cm [facility]; [facility] Work Phone: Comment on above: Patient Position: Sitting; Cuff Location : Left Arm; Cuff Size: Standard 12-01-2021 09:27-0500 Body mass index (BMI) [Ratio] 25 kg/m2 Dr. Shena Jeffers Work Phone: [facility] Work Phone: 12-01-2021 09:27-0500 Body temperature 96.7 [degF] Dr. Shena Jeffers Work Phone: [facility] Work Phone: 12-01-2021 09:27-0500 Body weight 68.[address] Shena Jeffers Work Phone: [facility] Work Phone: 12-01-2021 09:27-0500 Diastolic blood pressure 86 mm[Hg] Dr. Shena Jeffers Work Phone: [facility] Work Phone: 12-01-2021 09:27-0500 Heart rate 96 /min Dr. Shena Jeffers Work Phone: [facility] Work Phone: 12-01-2021 09:27-0500 Respiratory rate 18 /min Dr. Shena Jeffers Work Phone: [facility] Work Phone: 12-01-2021 09:27-0500 SaO2% (BldA) [Mass fraction] 94 % Dr. Shena Jeffers Work Phone: [facility] Work Phone: 12-01-2021 09:27-0500 Systolic blood pressure 128 mm[Hg] Dr. Shena Jeffers Work Phone: [facility] Work Phone: 11-27-2021 08:57-0500 Body height 162.56 cm Ruth Castellano LPN [facility]; [facility] Work Phone: Comment on above: will try to check and report to [facility] 11-27-2021 08:57-0500 Body mass index (BMI) [Ratio] 27.46 kg/m2 Ruth Castellano LPN [facility]; [facility] Work Phone: Comment on above: will try to check and report to [facility] 11-27-2021 08:57-0500 Body surface area Derived from formula 1.78 m2 Ruth Castellano LPN [facility]; [facility] Work Phone: Comment on above: will try to check and report to [facility] 11-27-2021 08:57-0500 Body weight 72.58 kg Ruth Castellano LPN [facility]; [facility] Work Phone: Comment on above: will try to check and report to [facility] 11-22-2021 08:25-0500 Heart rate 90 /min Dr. Shena Jeffers Work Phone: [facility] Work Phone: 11-22-2021 08:15-0500 Body temperature 98.6 [degF] Dr. Shena Jeffers Work Phone: [facility] Work Phone: 11-22-2021 08:15-0500 Diastolic blood pressure 62 mm[Hg] Dr. Shena Jeffers Work Phone: [facility] Work Phone: 11-22-2021 08:15-0500 Respiratory rate 16 /min Dr. Shena Jeffers Work Phone: [facility] Work Phone: 11-22-2021 08:15-0500 SaO2% (BldA) [Mass fraction] 94 % Dr. Shena Jeffers Work Phone: [facility] Work Phone: 11-22-2021 08:15-0500 Systolic blood pressure 119 mm[Hg] Dr. Shena Jeffers Work Phone: [facility] Work Phone: 11-22-2021 04:38-0500 Body weight 71.[address] Shena Jeffers Work Phone: [facility] Work Phone: 11-18-2021 00:36-0500 Body mass index (BMI) [Ratio] 27.8 kg/m2 Dr. Shena Jeffers Work Phone: [facility] Work Phone: 10-30-2021 08:23-0500 Body height 162.56 cm Saray Kolbius [facility]; [facility] Work Phone: 10-30-2021 08:23-0500 Body mass index (BMI) [Ratio] 27.46 kg/m2 Saray Gravius [facility]; [facility] Work Phone: 10-30-2021 08:23-0500 Body surface area Derived from formula 1.78 m2 Saray Gravius [facility]; [facility] Work Phone: 10-30-2021 08:23-0500 Body weight 72.58 kg Saray Kolbius [facility]; [facility] Work Phone: 10-14-2021 11:55-0500 Body height 162.56 cm Ruth Castellano LPN [facility]; [facility] Work Phone: 10-14-2021 11:55-0500 Body mass index (BMI) [Ratio] 27.46 kg/m2 Ruth Castellano LPN [facility]; [facility] Work Phone: 10-14-2021 11:55-0500 Body surface area Derived from formula 1.78 m2 Ruth Castellano LPN [facility]; [facility] Work Phone: 10-14-2021 11:55-0500 Body temperature 97.4 [degF] Ruth Castellano LPN [facility]; [facility] Work Phone: Comment on above: Method: Infrared 10-14-2021 11:55-0500 Body weight 72.58 kg Ruth Castellano LPN [facility]; [facility] Work Phone: 10-14-2021 11:55-0500 Diastolic blood pressure 78 mm[Hg] Ruth Castellano LPN [facility]; [facility] Work Phone: Comment on above: Patient Position: Sitting; Cuff Location : Left Arm; Cuff Size: Standard 10-14-2021 11:55-0500 Heart rate 71 /min Ruth Castellano LPN [facility]; [facility] Work Phone: Comment on above: Pattern: Regular 10-14-2021 11:55-0500 Respiratory rate 16 /min Ruth Castellano LPN [facility]; [facility] Work Phone: Comment on above: Pattern: Unlabored 10-14-2021 11:55-0500 SaO2% (BldA) [Mass fraction] 98 % Ruth Castellano LPN [facility]; [facility] Work Phone: Comment on above: 2L O2 10-14-2021 11:55-0500 Systolic blood pressure 130 mm[Hg] Ruth Castellano LPN [facility]; [facility] Work Phone: Comment on above: Patient Position: Sitting; Cuff Location : Left Arm; Cuff Size: Standard 10-07-2021 15:03-0500 Body temperature 98 [degF] Dr. Shena Jeffers Work Phone: [facility] Work Phone: 10-07-2021 15:03-0500 Diastolic blood pressure 53 mm[Hg] Dr. Shena Jeffers Work Phone: [facility] Work Phone: 10-07-2021 15:03-0500 Heart rate 81 /min Dr. Shena Jeffers Work Phone: [facility] Work Phone: 10-07-2021 15:03-0500 Respiratory rate 18 /min Dr. Shena Jeffers Work Phone: [facility] Work Phone: 10-07-2021 15:03-0500 Systolic blood pressure 149 mm[Hg] Dr. Shena Jeffers Work Phone: [facility] Work Phone: 10-07-2021 12:25-0500 SaO2% (BldA) [Mass fraction] 90 % Dr. Shena Jeffers Work Phone: [facility] Work Phone: 10-07-2021 04:16-0500 Body weight 74.[address] hSena Jeffers Work Phone: [facility] Work Phone: 10-06-2021 15:28-0500 Body mass index (BMI) [Ratio] 27.9 kg/m2 Dr. Shena Jeffers Work Phone: [facility] Work Phone: 10-05-2021 10:46-0500 Body height 162.56 cm Patti Mckeon [employer]ELING STRATEGIST [facility]; [facility] Work Phone: Comment on above: virtual, none reported 10-05-2021 10:46-0500 Body mass index (BMI) [Ratio] 27.46 kg/m2 Patti Mckeon [employer]ELING STRATEGIST [facility]; [facility] Work Phone: Comment on above: virtual, none reported 10-05-2021 10:46-0500 Body surface area Derived from formula 1.78 m2 Patti Mckeon LABELING STRATEGIST [facility]; [facility] Work Phone: Comment on above: virtual, none reported 10-05-2021 10:46-0500 Body weight 72.58 kg Patti Mckeon LABELING STRATEGIST [facility]; [facility] Work Phone: Comment on above: virtual, none reported 09-30-2021 08:21-0500 Body height 162.56 cm Ruth Castellano LPN [facility]; [facility] Work Phone: 09-30-2021 08:21-0500 Body mass index (BMI) [Ratio] 27.46 kg/m2 Ruth Castellano LPN [facility]; [facility] Work Phone: 09-30-2021 08:21-0500 Body surface area Derived from formula 1.78 m2 Ruth Castellano LPN [facility]; [facility] Work Phone: 09-30-2021 08:21-0500 Body temperature 97.8 [degF] Ruth Castellano LPN [facility]; [facility] Work Phone: Comment on above: Method: Infrared 09-30-2021 08:21-0500 Body weight 72.58 kg Ruth Castellano LPN [facility]; [facility] Work Phone: 09-30-2021 08:21-0500 Diastolic blood pressure 62 mm[Hg] Ruth Castellano LPN [facility]; [facility] Work Phone: Comment on above: Patient Position: Sitting; Cuff Location : Left Arm; Cuff Size: Standard 09-30-2021 08:21-0500 Heart rate 94 /min Ruth Castellano LPN [facility]; [facility] Work Phone: Comment on above: Pattern: Regular 09-30-2021 08:21-0500 Respiratory rate 18 /min Ruth Castellano LPN [facility]; [facility] Work Phone: Comment on above: Pattern: Unlabored 09-30-2021 08:21-0500 SaO2% (BldA) [Mass fraction] 92 % Ruth Castellano LPN [facility]; [facility] Work Phone: Comment on above: Room air 09-30-2021 08:21-0500 Systolic blood pressure 118 mm[Hg] Ruth Castellano LPN [facility]; [facility] Work Phone: Comment on above: Patient Position: Sitting; Cuff Location : Left Arm; Cuff Size: Standard 08-19-2021 07:47-0400 Body height 162.56 cm Patti Mckeon LPN [facility]; [facility] Work Phone: 08-19-2021 07:47-0400 Body mass index (BMI) [Ratio] 27.46 kg/m2 Patti Mckeon LABELING STRATEGIST [facility]; [facility] Work Phone: 08-19-2021 07:47-0400 Body surface area Derived from formula 1.78 m2 Patti Mckeon JON [facility]; [facility] Work Phone: 08-19-2021 07:47-0400 Body temperature 97.8 [degF] Patti Mckeon LABELING STRATEGIST [facility]; [facility] Work Phone: Comment on above: Method: Temporal 08-19-2021 07:47-0400 Body weight 72.58 kg Patti Mckeon JON [facility]; [facility] Work Phone: 08-19-2021 07:47-0400 Diastolic blood pressure 58 mm[Hg] Patti Mckeon JON [facility]; [facility] Work Phone: Comment on above: Patient Position: Sitting; Cuff Location : Left Arm; Cuff Size: Standard 08-19-2021 07:47-0400 Heart rate 73 /min Patti Mckeon JON [facility]; [facility] Work Phone: Comment on above: Pattern: Regular 08-19-2021 07:47-0400 Respiratory rate 16 /min Patti Mckeon LABELING STRATEGIST [facility]; [facility] Work Phone: Comment on above: Pattern: Unlabored 08-19-2021 07:47-0400 SaO2% (BldA) [Mass fraction] 94 % Patti Mckeon JON [facility]; [facility] Work Phone: Comment on above: Room air 08-19-2021 07:47-0400 Systolic blood pressure 130 mm[Hg] Pattibrooke Mckeon LABELING STRATEGIST [facility]; [facility] Work Phone: Comment on above: Patient Position: Sitting; Cuff Location : Left Arm; Cuff Size: Standard 07-22-2021 08:28-0400 Body height 162.56 cm Saray Huber CMA [facility]; [facility] Work Phone: 07-22-2021 08:28-0400 Body mass index (BMI) [Ratio] 27.81 kg/m2 Saray Huber CMA [facility]; [facility] Work Phone: 07-22-2021 08:28-0400 Body surface area Derived from formula 1.79 m2 Saray Huber [facility]; [facility] Work Phone: 07-22-2021 08:28-0400 Body temperature 97.1 [degF] Saray Huber C[facility]; [facility] Work Phone: Comment on above: Method: Infrared 07-22-2021 08:28-0400 Body weight 73.48 kg Saray Huber ESCALATOR ATTEND[employer] [facility]; [facility] Work Phone: 07-22-2021 08:28-0400 Diastolic blood pressure 78 mm[Hg] Saray Huber ESCALATOR ATTEND[employer] [facility]; [facility] Work Phone: Comment on above: Patient Position: Sitting; Cuff Location : Left Arm; Cuff Size: Standard 07-22-2021 08:28-0400 Heart rate 89 /min Saray Huber [facility]; [facility] Work Phone: Comment on above: Pattern: Regular 07-22-2021 08:28-0400 Respiratory rate 18 /min Saray Huber CMA [facility]; [facility] Work Phone: Comment on above: Pattern: Unlabored 07-22-2021 08:28-0400 SaO2% (BldA) [Mass fraction] 96 % Saray Huber [facility]; [facility] Work Phone: Comment on above: Room air 07-22-2021 08:28-0400 Systolic blood pressure 122 mm[Hg] Saray Huber [facility]; [facility] Work Phone: Comment on above: Patient Position: Sitting; Cuff Location : Left Arm; Cuff Size: Standard 07-15-2021 09:12-0400 Body height 162.56 cm Patti Mckeon LABELING STRATEGIST [facility]; [facility] Work Phone: Comment on above: reported by pt 07-15-2021 09:12-0400 Body mass index (BMI) [Ratio] 27.81 kg/m2 Patti Mckeon [facility]; [facility] Work Phone: Comment on above: reported by pt 07-15-2021 09:12-0400 Body surface area Derived from formula 1.79 m[address] [facility]; [facility] Work Phone: Comment on above: reported by pt 07-15-2021 09:12-0400 Body temperature 97.5 [degF] Patt[place] Mckeon [facility]; [facility] Work Phone: Comment on above: Method: Temporal reported by pt 07-15-2021 09:12-0400 Body weight 73.[address] [facility]; [facility] Work Phone: Comment on above: reported by pt 07-15-2021 09:12-0400 SaO2% (BldA) [Mass fraction] 92 % [place] Mckeon [facility]; [facility] Work Phone: Comment on above: Room air reported by pt 07-10-2021 13:38-0400 Body height 162.56 cm Saray Huber [facility]; [facility] Work Phone: Comment on above: no vs taken as this is phone encounter d ue to covid 07-10-2021 13:38-0400 Body mass index (BMI) [Ratio] 27.81 kg/m2 Saray Huber [facility]; [facility] Work Phone: Comment on above: no vs taken as this is phone encounter d ue to covid 07-10-2021 13:38-0400 Body surface area Derived from formula 1.79 m2 Saray Huber CMA [facility]; [facility] Work Phone: Comment on above: no vs taken as this is phone encounter d ue to covid 07-10-2021 13:38-0400 Body weight 73.48 kg Saray Huber CMA [facility]; [facility] Work Phone: Comment on above: no vs taken as this is phone encounter d ue to covid 05-27-2021 09:35-0400 Body height 162.56 cm Saray Huber CMA [facility]; [facility] Work Phone: 05-27-2021 09:35-0400 Body mass index (BMI) [Ratio] 27.81 kg/m2 Saray Huber ESCALATOR ATTENDANT [facility]; [facility] Work Phone: 05-27-2021 09:35-0400 Body surface area Derived from formula 1.79 m2 Saray Huber [facility]; [facility] Work Phone: 05-27-2021 09:35-0400 Body temperature 97.3 [degF] Saray Huber CMA [facility]; [facility] Work Phone: Comment on above: Method: Infrared 05-27-2021 09:35-0400 Body weight 73.48 kg Saray Huber CMA [facility]; [facility] Work Phone: 05-27-2021 09:35-0400 Diastolic blood pressure 78 mm[Hg] Saray Huber CMA [facility]; [facility] Work Phone: Comment on above: Patient Position: Sitting; Cuff Location : Left Arm; Cuff Size: Standard 05-27-2021 09:35-0400 Heart rate 67 /min Saray Huber [facility]; [facility] Work Phone: Comment on above: Pattern: Regular 05-27-2021 09:35-0400 Respiratory rate 18 /min Saray Huber ESCALATOR ATTENDANT [facility]; [facility] Work Phone: Comment on above: Pattern: Unlabored 05-27-2021 09:35-0400 SaO2% (BldA) [Mass fraction] 97 % Saray Huber [facility]; [facility] Work Phone: Comment on above: Room air 05-27-2021 09:35-0400 Systolic blood pressure 120 mm[Hg] Saray Huber [facility]; [facility] Work Phone: Comment on above: Patient Position: Sitting; Cuff Location : Left Arm; Cuff Size: Standard Encounters Encounter Date Encounter Type Care Provider Facility Start: 04-22-2025 End: 04-22-[address] Haresh Ceja MD -[facility] Work Phone: Start: 04-22-2025 End: 04-22-[address] Shena Jeffers DO Work Phone: -[facility] Start: 03-06-2025 End: 03-06-2025 Patient encounter procedure Delfina MORGAN -[facility] Work Phone: Start: 03-06-2025 End: 03-06-[address] Shena Jeffers DO Work Phone: [facility] Work Phone: Start: 02-19-2025 End: 02-19-[address] Silvestre Rossi MD -[facility] Work Phone: Start: 02-19-2025 End: 02-19-2025 ambulatory Shena Jeffers Facility:[facility] Start: 02-13-[address] Silvestre Rossi MD -[facility] Start: 02-13-2025 End: 02-13-[address] Silvestre Rossi MD -[facility] Work Phone: Start: 02-13-2025 End: 02-13-2025 ambulatory Silvestre Rossi Facility:[facility] Start: 12-18-2024 End: 12-18-[address] Shena Jeffers DO Work Phone: [facility] Work Phone: Start: 12-18-2024 End: 12-18-2024 Patient encounter procedure Delfina Velasquez SECURITY RISK ANALYST-C -[facility] [place] Work Phone: Start: 12-18-2024 End: 12-18-2024 Delfina Velasquez SECURITY RISK ANALYST-C -[facility] [place] [facility] Work Phone: Start: 12-18-2024 End: 12-18-2024 ambulatory Delfina Velasquez Facility:[facility] Start: 12-05-2024 End: 12-05-2024 Patient encounter procedure Delfina Velasquez SECURITY RISK ANALYST-C -[facility] Work Phone: Start: 12-05-2024 End: 12-05-2024 Delfina Velasquez SECURITY RISK ANALYST-C -[facility] Work Phone: Start: 12-05-2024 End: 12-05-2024 ambulatory Delfina Velasquez [place] [place]: 10-19-2024 ambulatory Jm Denise [facility] ity:[facility] Start: 10-19-2024 Jm Denise MD -[facility] Start: 09-19-2024 Dr. Maritza Urrutia DO [facility] Work Phone: Start: 09-18-2024 End: 09-18-2024 Dr. Camilo Barrett MD -[facility] Work Phone: Start: 09-18-2024 End: 09-18-2024 Wang Valentin DO -Endoscopy Work Phone: Start: 09-18-2024 End: 09-18-2024 ambulatory Wang Valentin Facility:[facility] Start: 09-17-2024 End: 09-18-2024 ambulatory Camilo Barrett Facility:[facility] Start: 09-17-2024 Dr. Eder Amezquita DO -[facility] Work Phone: Start: 09-17-2024 End: 09-17-2024 Dr. Esequiel Harris MD -[facility]gency [facility] t Work Phone: Start: 09-17-2024 End: 09-17-2024 Emergency department patient visit Shena Zeyad Facility:[facility] Start: 09-13-2024 End: 10-09-2024 Dr. Camilo Barrett MD -[facility] Start: 09-13-2024 ambulatory Fracisco Barriosi ty:[facility] Start: 09-13-2024 End: 10-09-2024 Evaluation and management of inpatient Shena Zeyad Facility:[facility] Start: 09-13-2024 Dr. Ronaldo Hickey MD -[facility] Work Phone: Start: 09-12-2024 Dr. Ronaldo Hickey MD -[facility] Work Phone: Start: 09-11-2024 Dr. Dominic Smith DO -[facility] Start: 09-11-2024 Dr. Ronaldo Hickey MD -[facility] Work Phone: Start: 09-10-2024 ambulatory David Barrios ity:[facility] Start: 09-10-2024 End: 09-13-2024 Evaluation and management of inpatient Shena Zeyad Facility:[facility] Start: 09-10-2024 End: 09-13-2024 Dr. Ronaldo Hickey MD -[facility] Work Phone: Start: 09-05-2024 End: 09-05-2024 Delfina Velasquez SECURITY RISK ANALYST-C -[facility] Work Phone: Start: 09-05-2024 End: 09-05-2024 ambulatory Delfina Velasquez [place] [place] Start: 08-21-2024 ambulatory Shena Zeyad Facilit y:[facility] Start: 08-20-2024 ambulatory Shena Zeyad Facilit y:[facility] Start: 08-13-2024 ambulatory Shena Zeyad Facilit y:[facility] Start: 08-06-2024 ambulatory Shyla Donovanalphonsomirlande [place]E Fa cility:[facility] Start: 07-30-2024 ambulatory Shena Zeyad Facilit y:[facility] Start: 07-24-2024 ambulatory Shena Zeyad Facilit y:[facility] Start: 07-16-2024 ambulatory Shena Zeyad Facilit y:[facility] Start: 07-04-2024 End: 07-04-2024 ambulatory Shena Zeyad [place] [place] Start: 07-03-2024 End: 07-03-2024 ambulatory Shena Zeyad [facility] Start: 06-29-2024 End: 07-02-2024 Evaluation and management of inpatient Shena Zeyad Facility:[facility] Start: 06-29-2024 ambulatory Shena Zeyad Facilit y:[facility] Start: 06-27-2024 End: 06-27-2024 ambulatory Delfina Ron Facility:[facility] Start: 06-24-2024 End: 06-24-2024 Emergency department patient visit Esequiel Harris Facility:[facility] Start: 06-15-2024 ambulatory Shena Zeyad Facilit y:[facility] Start: 06-14-2024 End: 06-16-2024 Evaluation and management of inpatient Roxi Eber Facility:[facility] Start: 06-14-2024 ambulatory Roxi Eber [facility] Start: 06-14-2024 End: 06-14-2024 ambulatory Shena Zeyad Facility:[facility] Start: 01-11-2024 End: 01-11-2024 Emergency department patient visit Dr. Shena Jeffers Work Phone: [facility]-Emergency Department Work Phone: Start: 12-28-2023 End: 12-28-[address] Shena Jeffers Work Phone: [facility] Work Phone: Start: 09-28-2023 End: 09-28-[address] Shena Jeffers Work Phone: [facility] Work Phone: Start: 09-12-2023 End: 09-12-[address] Shena Jeffers Work Phone: [facility] Work Phone: Start: 09-12-2023 End: 09-12-[address] Shena Jeffers Work Phone: [facility]-Laboratory Work Phone: Start: 08-04-2023 End: 08-04-2023 Office outpatient visit 15 minutes Shena Jeffers DO Work Phone: [facility] Start: 08-02-2023 End: 08-23-[address] Shena Jeffers Work Phone: [facility] Work Phone: Start: 08-02-2023 End: 08-23-[address] Shena Jeffers Work Phone: [facility]-Laboratory, Specimen Work Phone: Start: 07-20-2023 End: 07-20-2023 Annotation/Addendum Shena Jeffers DO Work Phone: [facility] Internal Medicine Start: 07-20-2023 End: 07-20-[address] Shena Jeffers Work Phone: [facility] Work Phone: Start: 07-20-2023 End: 07-20-[address] Shena Jeffers Work Phone: [facility]-Laboratory, Specimen Work Phone: Start: 07-20-2023 Review Shena victor DO Work Phone: [facility] Start: 07-20-2023 End: 07-20-2023 Office outpatient visit 15 minutes Shena Jeffers DO Work Phone: [facility] Internal Medicine Start: 07-01-2023 Non-patient / Non-visit Dr. Marin Jeffers Work Phone: [facility] Work Phone: Start: 06-30-2023 Non-patient / Non-visit Dr. Marin Jeffers Work Phone: [facility] Work Phone: Start: 06-29-2023 End: 07-01-2023 Evaluation and management of inpatient Dr. Shena Jeffers Work Phone: [facility]-Medical Surgical 3 Work Phone: Start: 06-29-2023 End: 06-29-2023 Office outpatient visit 15 minutes Shena Jeffers DO Work Phone: [facility] Start: 06-15-2023 End: 06-15-[address] Shena Jeffers Work Phone: [facility] Work Phone: Start: 06-10-2023 End: 06-10-2023 Office outpatient visit 25 minutes Shena Jeffers DO Work Phone: [facility] Start: 06-10-2023 Review Shena victor DO Work Phone: [facility] Start: 04-08-2023 End: 04-08-2023 Office outpatient visit 25 minutes Shena Jeffers DO Work Phone: [facility] Start: 04-07-2023 End: 04-07-[address] Shena Jeffers Work Phone: [facility] Work Phone: Start: 04-07-2023 End: 04-07-[address] Shena Jeffers Work Phone: [facility]-Outpatient Breast Imaging Start: 03-28-2023 End: 03-28-[address] Shena Jeffers Work Phone: [facility] Work Phone: Start: 03-28-2023 End: 03-28-[address] Shena Jeffers Work Phone: [facility]-Medical Out Start: 03-10-2023 End: 03-16-2023 Patient encounter procedure J Luis Quiñones LPN [facility] Start: 03-02-2023 End: 03-02-[address] Shena Jeffers Work Phone: [facility] Work Phone: Start: 03-02-2023 End: 03-02-[address] Shena Jeffers Work Phone: [facility]-Laboratory Start: 03-02-2023 End: 03-02-[address] Shena Jeffers Work Phone: [facility] Endocrinology Start: 02-24-2023 ambulatory Shena Jeffers DO [facility] Start: 02-10-2023 End: 02-10-2023 Office outpatient visit 10 minutes Shenarivera Jeffers DO Work Phone: [facility] Start: 01-13-2023 End: 01-13-2023 Patient encounter procedure Yonis Cavanaugh CMA [facility] Start: 01-13-2023 Review Shena Brookso n DO Work Phone: [facility] Start: 12-08-2022 End: 12-08-2022 Phone Encounter Shena Jeffers DO Work Phone: [facility] Start: 12-07-2022 End: 12-07-[address] Shena Jeffers Work Phone: [facility] Radiology Start: 12-02-2022 End: 12-02-2022 Office outpatient visit 40 minutes Shena Zeyad DO Work Phone: [facility] Start: 12-02-2022 Review Shena Brookso n DO Work Phone: [facility] Start: 11-26-2022 Non-patient / Non-visit Dr. Marin Jeffers Work Phone: [facility] Start: 11-26-2022 End: 11-26-2022 Office outpatient visit 10 minutes Shenanupur Jeffers DO Work Phone: [facility] Start: 11-25-2022 Non-patient / Non-visit Dr. Marin Jeffers Work Phone: [facility] Start: 11-25-2022 Non-patient / Non-visit Dr. Marni Jeffers Work Phone: [facility] Start: 11-24-2022 End: 11-24-2022 Non-patient / Non-visit Dr. Shena Jeffers Work Phone: [facility] Start: 11-24-2022 Non-patient / Non-visit Dr. Marin Jeffers Work Phone: [facility] Start: 11-23-2022 Non-patient / Non-visit Dr. Marin Jeffers Work Phone: [facility] Start: 11-22-2022 Non-patient / Non-visit Dr. Marin Jeffers Work Phone: [facility] Start: 11-22-2022 End: 11-26-2022 Evaluation and management of inpatient [facility] Start: 11-18-2022 End: 11-18-[address] Shena Jeffers Work Phone: [facility] Endocrinology Start: 11-09-2022 Non-patient / Non-visit Dr. Marin Jeffers Work Phone: [facility] Start: 11-09-2022 End: 11-09-[address] Shena Jeffers Work Phone: [facility]-Cardiovascular Services Start: 10-28-2022 End: 10-30-2022 Office outpatient visit 10 minutes Shena Jeffers DO Work Phone: [facility] Start: 10-06-2022 End: 10-06-[address] Shena Jeffers Work Phone: [facility]inology Start: 09-10-2022 Non-patient / Non-visit Dr. Marin Jeffers Work Phone: [facility] Start: 09-09-2022 Non-patient / Non-visit Dr. Marin Jeffers Work Phone: [facility] Start: 09-08-2022 Non-patient / Non-visit Dr. Marin Jeffers Work Phone: [facility] Start: 09-08-2022 End: 09-10-2022 Evaluation and management of inpatient Dr. Shena Jeffers Work Phone: [facility]-Medical Surgical 3 Start: 09-01-2022 End: 09-01-2022 Office outpatient visit 5 minutes Shena Jeffers DO Work Phone: [facility] Start: 08-11-2022 End: 08-11-[address] Shena Jeffers Work Phone: [facility] Work Phone: Start: 08-11-2022 End: 08-11-[address] Shena Jeffers Work Phone: [facility]-Laboratory Start: 08-11-2022 End: 08-11-[address] Shena Jeffers Work Phone: [facility] Endocrinology Start: 06-07-2022 Non-patient / Non-visit Dr. Marin Jeffers Work Phone: [facility] Start: 06-06-2022 Non-patient / Non-visit Dr. Marin Jeffers Work Phone: [facility] Start: 06-05-2022 Non-patient / Non-visit Dr. Marin Jeffers Work Phone: [facility] Start: 06-05-2022 End: 06-07-2022 Evaluation and management of inpatient Dr. Shena Jeffers Work Phone: [facility]-Progressive Care Unit Start: 06-04-2022 End: 06-04-2022 Phone Encounter Shena Jeffers DO Work Phone: [facility] Start: 06-04-2022 End: 06-04-[address] Shena Jeffers Work Phone: [facility] Start: 06-04-2022 End: 06-04-2022 Phone Encounter Shena Jeffers DO Work Phone: [facility] Start: 06-03-2022 Non-patient / Non-visit Dr. Marin Jeffers Work Phone: [facility] Start: 06-03-2022 End: 06-03-[address] Shena Jeffers Work Phone: [facility]-Cardiovascular Services Start: 06-03-2022 End: 06-03-2022 Office outpatient visit 40 minutes Shena Jeffers DO Work Phone: [facility] Start: 06-03-2022 Review Shena victor DO Work Phone: [facility] Start: 05-26-2022 End: 05-26-[address] Shena Jeffers Work Phone: [facility] Endocrinology Start: 04-23-2022 End: 04-23-[address] Shena Jeffers Work Phone: [facility] [place] Start: 04-23-2022 End: 04-23-[address] Shena Jeffers Work Phone: [facility] Endocrinology Start: 03-31-2022 End: 03-31-2022 Phone Encounter Shena Jeffers DO Work Phone: [facility] Start: 03-15-2022 End: 03-15-2022 Annotation/Addendum Shena Jeffers DO Work Phone: [facility] Start: 03-01-2022 End: 03-01-2022 Office outpatient visit 25 minutes Shena Brookson DO Work Phone: [facility] Start: 02-25-2022 End: 02-25-2022 Phone Encounter Shena Jeffers DO Work Phone: [facility] Start: 02-24-2022 Non-patient / Non-visit Dr. Marin Jeffers Work Phone: [facility] Start: 02-24-2022 End: 02-24-2022 Emergency department patient visit Dr. Shena Jeffers Work Phone: [facility]-Emergency Department Start: 02-18-2022 End: 02-18-2022 Phone Encounter Shena Jeffers DO Work Phone: [facility] Start: 02-11-2022 End: 02-11-2022 Annotation/Addendum Shena Jeffers DO Work Phone: [facility] Start: 02-11-2022 End: 02-11-2022 Office outpatient visit 25 minutes Shena Jeffers DO Work Phone: [facility] Start: 02-10-2022 Non-patient / Non-visit Dr. Marin Jeffers Work Phone: [facility] Start: 02-09-2022 Non-patient / Non-visit Dr. Marin Jeffers Work Phone: [facility] Start: 02-08-2022 Non-patient / Non-visit Dr. Marin Jeffers Work Phone: [facility] Start: 02-07-2022 Non-patient / Non-visit Dr. Marin Jeffers Work Phone: [facility] Start: 02-06-2022 Non-patient / Non-visit Dr. Marin Jeffers Work Phone: [facility] Start: 02-06-2022 End: 02-10-2022 Evaluation and management of inpatient Dr. Shena Jeffers Work Phone: [facility]-Medical Surgical 3 Start: 01-30-2022 Non-patient / Non-visit Dr. Marin Jeffers Work Phone: [facility] Start: 01-30-2022 Non-patient / Non-visit Dr. Marin Jeffers Work Phone: [facility] Start: 01-29-2022 Non-patient / Non-visit Dr. Marin Jeffers Work Phone: [facility] Start: 01-29-2022 Non-patient / Non-visit Dr. Marin Jeffers Work Phone: [facility] Start: 01-28-2022 Non-patient / Non-visit Dr. Marin Jeffers Work Phone: [facility] Start: 01-28-2022 Non-patient / Non-visit Dr. Marin Jeffers Work Phone: [facility] Start: 01-27-2022 Non-patient / Non-visit Dr. Marin Jeffers Work Phone: [facility] Start: 01-27-2022 End: 01-30-2022 Evaluation and management of inpatient Dr. Shena Jeffers Work Phone: [facility]-Intensive Care Unit Start: 01-22-2022 End: 01-22-2022 Office outpatient visit 25 minutes Shena Jeffers DO Work Phone: [facility] Start: 01-21-2022 End: 01-21-[address] Shena Jeffers Work Phone: [facility]-Cat Scan, [facility] Start: 01-20-2022 End: 01-20-2022 Annotation/Addendum Shena Zeyad DO Work Phone: [facility] Start: 01-20-2022 End: 01-20-[address] Shena Jeffers Work Phone: [facility]-Laboratory, Specimen Start: 01-20-2022 End: 01-20-2022 Office outpatient visit 15 minutes Shena Zeyad DO Work Phone: [facility] Start: 12-21-2021 End: 12-21-2021 Office outpatient visit 10 minutes Shena Zeyad DO Work Phone: [facility] Start: 12-08-2021 End: 12-08-2021 Office outpatient visit 25 minutes Shena Zeyad DO Work Phone: [facility] Start: 12-04-2021 End: 12-04-2021 Annotation/Addendum Shena Zeyad DO Work Phone: [facility] Start: 12-01-2021 End: 12-01-2021 Emergency department patient visit Dr. Shena Jeffers Work Phone: [facility]-Emergency Department Start: 11-27-2021 End: 11-27-2021 Office outpatient visit 25 minutes Shena Zeyad DO Work Phone: [facility] Start: 11-27-2021 Review Shena Brookso n DO Work Phone: [facility] Start: 11-22-2021 Non-patient / Non-visit Dr. Marin Jeffers Work Phone: [facility] Start: 11-20-2021 Non-patient / Non-visit Dr. Marin Jeffers Work Phone: [facility] Start: 11-19-2021 Non-patient / Non-visit Dr. Marin Jeffers Work Phone: [facility] Start: 11-19-2021 Non-patient / Non-visit Dr. Marin Jeffers Work Phone: [facility] Start: 11-18-2021 Non-patient / Non-visit Dr. Marin Jeffers Work Phone: [facility] Start: 11-17-2021 End: 11-22-2021 Evaluation and management of inpatient Dr. Shena Jeffers Work Phone: [facility]-Progressive Care Unit Start: 11-17-2021 Non-patient / Non-visit Dr. Marin Jeffers Work Phone: [facility] Start: 11-06-2021 Jurgen victor DO Work Phone: [facility] Start: 10-30-2021 End: 10-30-2021 Office outpatient visit 15 minutes Shena Jeffers DO Work Phone: [facility] Start: 10-28-2021 End: 10-28-[address] Shena Jeffers Work Phone: [facility] Start: 10-14-2021 End: 10-14-2021 Office outpatient visit 25 minutes Shena Jeffers DO Work Phone: [facility] Start: 10-07-2021 Non-patient / Non-visit Dr. Marin Jeffers Work Phone: [facility] Start: 10-07-2021 Non-patient / Non-visit Dr. Marin Jeffers Work Phone: [facility] Start: 10-06-2021 Non-patient / Non-visit Dr. Marin Jeffers Work Phone: [facility] Start: 10-06-2021 End: 10-07-2021 Evaluation and management of inpatient Dr. Shena Jeffers Work Phone: [facility]-Medical Surgical 2 Start: 10-05-2021 End: 10-05-2021 Office outpatient visit 15 minutes Shena Zeyad DO Work Phone: [facility] Start: 09-30-2021 End: 09-30-2021 Annotation/Addendum Shena Brookson DO Work Phone: [facility] Start: 09-30-[address] Shena Jeffers Work Phone: [facility] Start: 09-30-2021 End: 09-30-2021 Annotation/Addendum Shena Jeffers DO Work Phone: [facility] Start: 09-30-2021 End: 09-30-[address] Shena Jeffers Work Phone: [facility] Radiology Start: 09-30-2021 End: 09-30-2021 Office outpatient visit 25 minutes Shena Zeyad DO Work Phone: [facility] Start: 09-14-2021 End: 09-14-2021 Phone Encounter Shena Zeyad DO Work Phone: [facility] Start: 09-02-2021 End: 09-02-2021 Prescription Refill Shena Jeffers DO Work Phone: [facility] Start: 08-19-2021 End: 08-19-2021 Patient encounter procedure Shena Brookson DO Work Phone: [facility] Start: 08-19-2021 End: 08-19-2021 Periodic preventive med est patient 65yrs& older Shena Brookson DO Work Phone: [facility] Start: 08-10-2021 End: 08-12-2021 Office outpatient visit 5 minutes Shena Zeyad DO Work Phone: [facility] Start: 07-22-2021 End: 07-22-2021 Office outpatient visit 15 minutes Shena Zeyad DO Work Phone: [facility] Start: 07-15-2021 End: 07-15-2021 Lab Order Shena Zeyad DO Work Phone: [facility] Start: 07-15-2021 End: 07-15-2021 Office outpatient visit 15 minutes Shena Zeyad DO Work Phone: [facility] Start: 07-10-2021 End: 07-10-2021 Office outpatient visit 15 minutes Shena Zeyad DO Work Phone: [facility] Start: 05-27-2021 End: 05-27-2021 Office outpatient visit 25 minutes Sehna Zeyad DO Work Phone: [facility] Patient encounter procedure Ruth Castellano [facility] Work Phone: Patient encounter procedure Saray Huber [facility]; [facility] Work Phone: Patient encounter procedure Ruth Castellano [facility]; [facility] Work Phone: Patient encounter procedure Krystal Cm [facility]; [facility] Work Phone: Patient encounter procedure Saray Kolbomer [facility]; [facility] Work Phone: Patient encounter procedure Taylor Thrasher MA [facility]; [facility] Work Phone: Patient encounter procedure Saray Kolbomer [facility]; [facility] Work Phone: Patient encounter procedure Marincecilia Cavanaugh [facility]; [facility] Work Phone: Patient encounter procedure Yonis Cavanaugh [facility]; [facility] Work Phone: Patient encounter procedure Yonis Cavanaugh [facility]; [facility] Work Phone: Patient encounter procedure Yonis Cavanaugh [facility]; [facility] Work Phone: Patient encounter procedure J Luis Quñiones [facility]; [facility] Work Phone: Patient encounter procedure J Luis Quiñones LABELING STRATEGIST [facility]; [facility] Work Phone: Patient encounter procedure Amanda Caruso LABELING STRATEGIST [facility]; [facility] Work Phone: Patient encounter procedure Patti Mckeon LABELING STRATEGIST [facility]; [facility] Work Phone: Procedures Date Procedure Procedure Detail Performing Clinician Start: 02-13-[address] Shena Jeffers DO Work Phone: Start: 02-13-[address] e fraction Dr. Shena Jeffers DO Work Phone: Start: 02-13-2025 Serum inorganic phosphate measurement Dr. Shena Jeffers DO Work Phone: Start: 02-13-2025 Total iron binding capacity measurement Dr. Shena Jeffers DO Work Phone: Start: 10-08-[address] Shena Jeffers DO Work Phone: Start: 10-01-[address] Shena Jeffers DO Work Phone: Start: 09-24-[address] Shena Jeffers DO Work Phone: Start: 09-20-2024 X-ray of chest, PA a nd lateral views Dr. Shena Jeffers DO Work Phone: Start: 09-18-2024 CT of head without contrast Dr. Shena Jeffers DO Work Phone: Start: 09-17-[address] Jackie Jeffers DO Work Phone: Start: 09-17-2024 CT of head without contrast Dr. Shena Jeffers DO Work Phone: Start: 09-14-2024 Measurement of occul t blood in stool specimen using immunoassay Dr. Shena Jeffers DO Work Phone: Start: 09-14-[address] Shena Jeffers DO Work Phone: Start: 09-10-2024 Computed tomography of abdomen and pelvis with intravenous contrast Dr. Shena Jeffers DO Work Phone: Start: 09-10-[address] Jackie Jeffers DO Work Phone: Start: 09-10-2024 Influenza virus A an d B and SARS-CoV-2 (COVID-19) and Respiratory syncytial virus RNA Dr. Shena Jeffers DO Work Phone: Start: 09-10-[address] Jackie Jeffers DO Work Phone: Start: 08-02-[address] Jackie Jeffers Work Phone: Start: 07-20-[address] Jackie Jeffers Work Phone: Start: 06-29-2023 End: 06-29-2023 Chest 1 View (Portable) Procedure Note: See Note; NOTES: [facility] Imaging Services [address] [place] [id number] Chest 1 View (Portable) MR#: [id number] Acct: [id number] Name: LIVIER SMALLS Rep #: [id number] : 1945 F 77 From: Bernardo Cavazos DO PCP: Dr. Shena Jeffers, DO Status: REG ER Study: Chest 1 View (Portable) Date of Exam: 06/29/23 Exam# [id number] Ordering Dr: Lb Serna MD INDICATION: fever, ?pneumonia EXAMINATION/TECHNIQUE: X-RAY - XR Chest 1 View COMPARISON: December 07, 2022 chest x-ray FINDINGS: LINES/DEVICES: PA and lateral views of the chest December 07, 2022. LUNGS: Symmetric normal lung volumes. Subtle increased attenuation left greater than right lung bases with mild reticulations, improved compared to prior exam December 07, 2022. No nodule or mass. No pleural effusion or pneumothorax. MEDIASTINUM AND CARDIOVASCULAR STRUCTURES: Normal size and contour of the cardiomediastinal silhouette. No evidence of pulmonary vascular congestion. BONES AND SOFT TISSUES: Which compression fracture midthoracic spine seen on prior comparison exam not visible on frontal view multilevel degenerative endplate changes are noted. No visible fracture. Calcified breast implants complicating interpretation of the lung bases. RAD/Chest 1 View (Portable) IMPRESSION: 1. There is overall improved appearance compared to prior comparison exam but still with increased attenuation and reticulations lung bases suboptimally evaluated due to overlying calcified breast implants. Consider lateral views for increased sensitivity and specificity. Electronically Signed: Bernardo Cavazos DO at 20:32 EDT , CC: Dr. Shena Jeffers DO; Dr. Lb Serna MD Retail Pharmacy Technician: Signed Shena Jeffers DO Work Phone: Start: 06-29-2023 Plain chest X-ray Dr. Millicent Jeffers Work Phone: Start: 06-29-2023 End: 06-29-2023 Emergency Department Summary Procedure Note: See Note; NOTES: [facility] Medical Records Department [address] [place] [address] Emergency Department Summary 06/29/23 MR#: [id number] Acct: [id number] Name: LIVIER SMALLS Rep #: [id number] : 1945 77 From: Lb Serna MD PCP: Dr. Shena Jeffers DO Status:REG ER Location: ED HPI History of Present Illness Chief Complaint: Weakness Informant: patient and spouse/S.O. Narrative Narrative: This with generalized weakness and fevers. Patient and her states she has not felt well for 3 maybe 4 days. She has been sleeping more. She has had a lot less energy. She has had decreased appetite. states that he barely got her out of a restaurant last night. He had trouble getting her in the car because she was so weak generally. He was able to get her home. She is was evidently very warm and had rigors at dinner. But her temperature was not checked then. She denies any specific symptoms. However, she was seen in her private physician's office today. A urinalysis was evidently positive for UTI and she was given Macrobid. She has taken 1 dose. She seems to be just weaker tonight. The could not get her off the toilet. He could barely get her from dinner table over to the bathroom. He had to put her on a wheelchair and then get her onto the toilet but just was not able to get her off because she was so weak. This was not lateralizing weakness it was generalized weakness. 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 Memory loss On home oxygen therapy Osteoporosis Pulmonary embolism, bilateral Smoker Home Medications amlodipine 5 mg-benazepril 10 mg capsule 1 cap PO DAILY blood pressure 09/08/21 [History Last Taken 09/07/22] rivaroxaban 20 mg tablet (Xarelto) 20 mg PO DAILY blood thinner 04/23/22 [History Last Taken 09/08/22] oxybutynin chloride 10 mg tablet,extended release 24 hr 10 mg PO DAILY bladder 09/08/22 [History Last Taken 09/07/22] simvastatin 10 mg tablet 10 mg PO DAILY cholesterol 09/08/22 [History Last Taken 09/07/22] levothyroxine 100 mcg tablet 100 mcg PO DAILY #30 tabs 03/02/23 [Rx Last Taken Unknown] cholecalciferol (vitamin D3) 50 mcg (2,000 unit) tablet (D3 DOTS) 125 mcg PO DAILY 06/29/23 [History Last Taken Unknown] magnesium 200 mg tablet 400 mg PO DAILY 06/29/23 [History Last Taken Unknown] nitrofurantoin monohydrate/macrocrystals 100 mg capsule 100 mg PO Q12H 06/29/23 [History Last Taken Unknown] Allergy/AdvReac Type Severity Reaction Status Date / Time ciprofloxacin [From Cipro] Allergy Intermediate hives Verified 06/29/23 18:55 Sulfa (Sulfonamide Allergy Intermediate hives Verified 06/29/23 18:55 Antibiotics) Family History Father Diabetes Respiratory disease Surgical History S/P insertion of insulin pump Social History household members: significant other and none number of children: 2 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 Smoking Status: Former smoker alcohol intake: current alcohol intake frequency: a few times a month substance use type: does not use ROS ROS ED Constitutional Constitutional ED: Reports chills, fever(s) and subjective Eyes Eyes: Denies blurry vision ENT ENT ED: Denies rhinorrhea or sore throat Cardiovascular Cardiovascular: Denies chest pain, palpitations or racing heartbeat Respiratory/Chest Respiratory/Chest: Denies cough or dyspnea Gastrointestinal Gastrointestinal: Denies abdominal pain, diarrhea, nausea or vomiting Genitourinary Genitourinary ED: Denies dysuria Musculoskeletal Musculoskeletal: Denies myalgias Integumentary Denies rash Neurologic Neurologic: Denies headache(s) or paresthesias Endocrine Endocrinology: Denies polydipsia or polyuria Hematologic/Lymphatic Hematologic/Lymphatic: Reports easy bleeding and easy bruising; Denies lymphadenopathy Allergic/Immunologic Allergic/Immunologic ED: Denies urticaria EXAM Physical Exam Narrative Exam Narrative: Patient is awake. She is alert. She is not the best informant. She evidently is a little bit more confused than would be her baseline. She is mostly tired. HEENT shows minimally dry mucous membranes. No sinus tenderness. Neck is supple Heart is regular with a rate of about 105 showing mild tachycardia. But it appears to be a sinus rhythm on the monitor without ectopy. Lungs are actually clear on exam. She may have some history of COPD but I do not hear wheezing now. Her oxygen level are normal at 95% on her 2 L showing no hypoxia at that level. Abdomen is soft it is not tender. I do not get any CVA or suprapubic area tenderness. Extremities show no rash or swelling. Skin shows no rash. It may be slightly warm. Const Vital Signs: 06/29/23 18:58 06/29/23 19:01 06/29/23 19:46 Temperature 99.3 F H Temperature Source Oral Pulse Rate 115 H 100 Respiratory Rate 19 H 19 H Respiratory Effort Normal Non-Labored Respiratory Pattern Normal Blood Pressure 137/101 H 153/64 H Blood Pressure Mean 113 93 Pulse Ox 90 95 Oxygen Delivery Method Room Air Nasal Cannula Oxygen Flow Rate (L/min) 2 MDM MDM MDM Narrative Medical decision making narrative: Patient CBC shows mild elevation of her white count above her baseline at 11.2. Mild anemia. Platelets are relatively normal. Patient's electrolytes showed just a slight rise of her creatinine to 1.29. But she is given IV fluids here. Sodium was 133. Her glucose was high at 312. But then I talked with her and her . Her just not long ago given her 4 units of insulin. He watches her blood sugar on a ULTRA Testing alivia. We checked it in the room and she is now coming down to 241. His level did show about 315 also. Therefore she was not acutely treated for this hyperglycemia here as she is already received treatment. Liver for test showed normal acute abnormality. Urine was positive nitrites positive leukocyte Estrace 5-10 white cells with rare bacteria. Has had prior UTIs without symptoms. Her last UTI showed Klebsiella. I have initiated Rocephin. Patient is still weak. She is not safe to get up and walk. Normally she will walk by herself or just with her . She does not use a walker or cane. This is a significant reduction in her strength and function. Her has been trying to carry her from point a to point B but he is just too weak to do this also. They do not feel she is safe to go home which I understand. With her age, fever this I think she needs to come in. She is not coughing. Although her urine does show some signs of urine infection is not the most markedly abnormal 1. She already did have a dose biotics prior to arrival though. I will also send a COVID off just to make sure. Lab Data Attestation: I reviewed the patient's lab results. Labs: Laboratory Results - last 24 hr 06/29/23 06/29/23 19:30 20:25 WBC 11.2 H RBC 4.40 Hgb 11.3 L Hct 36.7 L MCV 83.4 MCH 25.7 L MCHC 30.8 L RDW Std Deviation 47.3 H RDW Coeff of Kristyn 15.5 H Plt Count 357 MPV 11.4 Immature Gran % (Auto) 0.400 Neut % (Auto) 79.6 H Lymph % (Auto) 9.7 L [place] % (Auto) 9.5 Eos % (Auto) 0.1 Baso % (Auto) 0.7 Absolute Neuts (auto) 8.9 H Absolute Lymphs (auto) 1.08 Nucleated RBC % 0 Sodium 133 L Potassium 4.2 Chloride 99 Carbon Dioxide 26.0 Anion Gap 8 BUN 25 H Creatinine 1.29 H Est GFR (MDRD) Af Amer 51 L Est GFR (MDRD) Non-Af 42 L BUN/Creatinine Ratio 19.4 Glucose 312 H Lactic Acid 1.1 Calcium 8.9 Magnesium 2.4 Total Bilirubin 0.50 AST 10 L ALT 16 Alkaline Phosphatase 107 Total Protein 7.6 Albumin 3.1 L Globulin 4.5 H Albumin/Globulin Ratio 0.7 L Urine Color Yellow Urine Clarity Clear Urine pH 6.0 Ur Specific Lee 1.010 Urine Protein 30 H Urine Glucose (UA) 1000 H Urine Ketones 50 H Urine Occult Blood 25 H Urine Nitrite Positive H Urine Bilirubin Negative Urine Urobilinogen Normal Ur Leukocyte Esterase 25 H Urine RBC 0-5 SEEN Urine WBC 5-10 SEEN Ur Squamous Epith Cells 0 SEEN Urine Bacteria RARE Urine Mucus 0 SEEN Radiography Diagnostic Testing: Clinical Impression(s) from Imaging Studies Chest X-Ray 06/29/23 20:10 IMPRESSION: 1. There is overall improved appearance compared to prior comparison exam but still with increased attenuation and reticulations lung bases suboptimally evaluated due to overlying calcified breast implants. Consider lateral views for increased sensitivity and specificity. Electronically Signed: Bernardo Cavazos DO at 20:32 EDT Reading Location ID and State: [facility] / [place] Tel , Service support , Management Discussion w/another healthcare provider: Hospitalist Discharge Plan Dx/Rx/DC Orders Clinical Impression: Creatinine elevation, Generalized weakness, Acute UTI, Inability to walk, Dehydration Disposition Disposition: Acute Care Hospital [facility] What to do if you have Problems For any increased pain, shortness of breath, bleeding, nausea or vomiting, chest pain, or any unexpected problems, contact your Primary Care Provider. Call [facility] ([phone]) or report to the closest Emergency Room. Call 911 if necessary. 06/29/232150 <Electronically signed by Lb Serna MD> Cosigner Signature (if applicable): CC: Dr. Shena Jeffers, DO Signed Shena Jeffers DO Work Phone: Start: 06-29-2023 Bacteria identified in Blood by Culture Dr. Shena Jeffers Work Phone: Start: 06-29-[address] Jackie Jeffers Work Phone: Start: 06-29-[address] Shena Jeffers Work Phone: Start: 06-15-2023 End: 06-15-2023 Endocrinology Visit Report Procedure Note: See Note; NOTES: [facility] [address] [place] [address]. [address] [place], [place] [address] OFFICE VISIT Date of Service: 06/15/23 MR#: [id number] Acct: [id number] Name: LIVIER SMALLS Rep #: [id number] : 1945 Provider: EDDIE handy Age/Sex: 77/F [place] [facility] [place]: Signed Intake Vital Signs 03/02/23 10:23 03/28/23 14:05 06/15/23 09:43 Height 5 ft 4 in 5 ft 4 in 5 ft 4 in Weight: 163 lb 4 oz BMI 28.0 BP 138/74 H Blood Pressure Location Lt brachial Position Sitting Respiration 18 Pulse 70 Pulse Source Monitor Temp 98.0 F Temp Source Temporal Pulse Oximetry (%) 97 Oxygen Delivery Method room air Intake Visit Reasons: 3 M FU Chief Complaint: f/u diabetes/hypothyroidism Attendant Campground Required: No Accompanied by: Self Is patient in pain?: No Allergies ciprofloxacin [From Cipro] Allergy (Intermediate, Verified 06/15/23 09:50) hives Sulfa (Sulfonamide Antibiotics) Allergy (Intermediate, Verified 06/15/23 09:50) hives Nurse's Note: Room 3 PFS Medical History Acute UTI COPD (chronic obstructive pulmonary disease) COPD exacerbation Diabetes mellitus type 1 Emphysema lung HLD (hyperlipidemia) HTN (hypertension) Hypothyroidism Hypothyroidism 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 Memory loss On home oxygen therapy Osteoporosis Pulmonary embolism, bilateral Smoker Surgical History S/P insertion of insulin pump Family History Father Diabetes Respiratory disease Social History household members: significant other and none number of children: 2 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 100% of history provided by senior product integrity engineer-Zofia. A1C today is 8.1%, increased from 03/02/23 GMI of 7.5%. She has gained 9 lbs. She is not a candidate for tight control. Currently taking Lantus 4 u once daily and lispro 8-10 u TIDCM. CGM downloaded and reviewed- she is having occasional lows that seem to be primarily following correcting for elevation. Health Equipment Servicer-Zofia- doesn't have a method for how he decides to correct for highs. He admits that they both forget to take her lispro prior to eating. She commonly gets mealtime insulin during meals or after eating. Reports she eats whatever she wants and she goes to town. Regarding hypothyroidism- Currently taking levothyroxine 100 mcg once daily. Reports compliance with medication regimen. Regarding osteoporosis- she received first Reclast infusion in March of this year, tolerated well. Denies any recent fx's or kidney stones. Denies any acute concerns. Exam Const General: cooperative, healthy appearing, comfortable and no acute distress Nutritional Appearance: overweight Orientation: alert, awake and oriented x3 HENMT Head: normal to inspection Ears: hearing grossly normal bilaterally Nose: external nose normal Face and sinus: normal facial exam Eyes General: appearance normal, both eyes and all related structures Alignment and Position: alignment normal Sclera: sclerae normal Neck Neck: normal visual inspection Carotids: normal carotid upstroke Chest Chest palpation inspection: normal inspection of the chest Resp Effort Inspection: normal respiratory effort, able to speak in complete sentences, symmetric chest movement, normal respiratory pattern, no audible wheezes and no cough Auscultation: Bilateral: Clear to Auscultation Cardio Rate: regular rate Rhythm: regular rhythm Heart Sounds: S1 normal and S2 normal Bruits: no carotid bruits GI Inspection: normal to inspection Musc Cervical Spine: normal cervical lordosis Thoracic/Lumbar Spine: thoracic and lumbar spine normal to inspection Skin General: no rashes or lesions noted Lesions: no lesions Rashes: no rashes Trauma: no lacerations or abrasions Wounds: no wounds Neuro General: patient alert, patient awake and patient oriented x3 Cognition: abnormal cognition (hx of dementia) Speech: speech normal Gait: normal gait Extrem General: normal to inspection and no pedal edema Psych Appearance: grossly normal Mental Status: other Mood: other Affect: normal affect Speech and Movement: speech and movement normal Attitude: cooperative Thought Process: normal Thought Content: normal Judgment: limited Results POC A1C POC A1C 8.1 % Last Edit by Nicky Perry LPN on 06/15/23 09:57 Coding Level of Care Code Off vis,est,level 4 Diagnoses Type 1 diabetes mellitus with hyperglycemia E10.65 Diabetes mellitus complication status: with hyperglycemia 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 I reviewed with the patient the risk of developing and worsening of diabetes complications including retinopathy, neuropathy, nephropathy, heart attack, stroke, ampuation, and sudden . Diabetes education provided. She is not a candidate for tight control. A1C goal is 8.0%. Goals: avoid hospital admissions d/t hypoglycemia/DKA. Continue Lantus 4 u once daily. Emphasized importance of taking lispro prior to meals to avoid having to correct for elevations. Continue lispro 8-10 u TIDCM. Notify office of persistent lows. CGM tracings reviewed in detail with patient/caregiver. CGM: she is checking blood sugar 4x/day, she is taking 4 injections of subq insulin/day, she is using blood sugar reading to titrate insulin dose, she is at risk of hypoglycemia. The patient was counseled regarding the importance of foot care including daily visual and tactile inspection. The patient was instructed not to go barefoot and to always wear socks with their shoes. Follow up in 3 months. 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 Check TSH/T4. I will interpret and communicate results with caregiver. Continue levothyroxine 100 mcg once daily. Will titrate dose as indicated by labs. Take levothyroxine on an empty stomach with water at least four hours after eating. Then wait 30-60 minutes before consuming any other food or beverage, especially coffee. Separate levothyroxine from vitamins by at least 4 hours. Stop taking any biotin supplement 4 days prior to having labs drawn. (3) Osteoporosis: Status: Chronic Qualifiers: Osteoporosis type: unspecified Presence of current pathological fracture: without current pathological fracture Qualified Code(s): M81.0 - Age-related osteoporosis without current pathological fracture Plan: Chronic- stable. Reclast infusion March of 2024. Continue vitamin D3 2,000 iu once daily. Report fx's or kidney stones to office. I have spent [33] minutes today reviewing labs, records and history. Time includes coordinating care, interpretation of tests, discussion with patient's other health care providers via telephone. This also includes time I spent with the patient for exam, treatment plan and education as well as documenting clinical information. Orders: Orders POC A1C Today E10.9 - Type 1 diabetes mellitus without complications Thyroid Stim Hormone (TSH) Today E03.8 - Other specified hypothyroidism, E06.3 - Autoimmune thyroiditis T4 Free Direct Today E03.8 - Other specified hypothyroidism, E06.3 - Autoimmune thyroiditis Plan Details Follow Up: 3 Months 06/15/23 [id number] <Electronically signed by Delfina IVROYC> Date Delfina MORGAN Cosigner Signature: Date (if applicable) CC: DO Shena Bowden DO Work Phone: Start: 04-07-2023 Screening mammography D sheldon Shena Jeffers Work Phone: Start: 04-07-2023 End: 04-18-2023 SCRN MAMM (CAD)W/SESAR BILAT Procedure Note: See Note; NOTES: [facility] Imaging Services [address] [place] [address] SCRN MAMM (CAD)W/SESAR BILAT MR#: [id number] Acct: [id number] Name: LIVIER SMALLS Rep #: [id number] : 1945 F 77 From: Ayden urbina MD PCP: Dr. Shena Jeffers DO Status: [facility] Study: SCRN MAMM (CAD)W/SESAR BILAT Date of Exam: 03/24 03/15 Exam# [id number] Ordering Dr: Shena Jeffers DO MAMMOGRAPHY - BILATERAL SCREENING REASON FOR EXAM: Female, 77 years old. Routine annual screening examination. PERTINENT HISTORY: Non-contributory. Bilateral breast implants. TECHNIQUE: Digital bilateral breast sesar (3D mammographic acquisition) in the CC and MLO projections. 2-D mediolateral oblique (MLO) and craniocaudad (CC) views of both breasts were obtained. CAD: Full Field Digital Mammography with Computer Added Detection was performed. COMPARISON: Comparison is made with prior outside examination if every 2019. FINDINGS: Breast Composition: There are scattered areas of fibroglandular density. There are no dominant masses or suspicious calcifications. Bilateral breast implants are seen. Dense calcifications are seen along the anterior aspects of both breast implants. No other significant abnormalities are identified. There has been no significant change since the prior study. BI/SCRN MAMM (CAD)W/SESAR BILAT IMPRESSION: Stable bilateral screening mammogram. Dense calcifications along the anterior aspects of both breast implants. Yearly follow-up mammogram recommended. (A) ASSESSMENT CATEGORY: BIRADS Category 2: Benign. A letter regarding these results will be sent to the patient by the facility within 30 days. Approximately 10% of breast cancers are not detected by mammography. A normal mammogram should not delay biopsy of a clinically suspicious abnormality. [id number] Electronically Signed: Ayden Sifuentes MD at 14:15 EDT , CC: Dr. Shena Jeffers DO Retail Pharmacy Technician: Signed Shena Jeffers DO Work Phone: Start: 03-02-2023 End: 03-02-2023 Endocrinology Visit Report Procedure Note: See Note; NOTES: [facility] [address] [place] [address] OFFICE VISIT Date of Service: 03/02/23 MR#: [id number] Acct: [id number] Name: LIVIER SMALLS Rep #: [id number] : 1945 Provider: EDDIE handy Age/Sex: 77/F [place] [facility] [place]: Signed Intake Vital Signs 11/18/22 11:25 11/23/22 14:24 03/02/23 10:23 Height 5 ft 4 in 5 ft 4 in 5 ft 4 in Weight: 154 lb 0.2 oz BMI 26.4 BP 111/60 Blood Pressure Location Lt brachial Position Sitting Respiration 16 Pulse 91 Pulse Source Monitor Temp 98.9 F Temp Source Temporal Pulse Oximetry (%) 92 Oxygen Delivery Method room air Intake Visit Reasons: 4 M FU Chief Complaint: f/u diabetes, hypothryoidism, osteoporosois. Attendant [employer] Required: No Accompanied by: Self Is patient in pain?: No Allergies ciprofloxacin [From Cipro] Allergy (Intermediate, Verified 03/02/23 10:25) hives Sulfa (Sulfonamide Antibiotics) Allergy (Intermediate, Verified 03/02/23 10:25) hives Medications amlodipine 5 mg-benazepril 10 mg capsule 1 cap PO DAILY blood pressure 09/08/21 [History Confirmed 03/02/23] rivaroxaban 20 mg tablet (Xarelto) 20 mg PO DAILY blood thinner 04/23/22 [History Confirmed 03/02/23] oxybutynin chloride 10 mg tablet,extended release 24 hr 10 mg PO DAILY bladder 09/08/22 [History Confirmed 03/02/23] simvastatin 10 mg tablet 10 mg PO DAILY cholesterol 09/08/22 [History Confirmed 03/02/23] zoledronic acid 5 mg/100 mL in mannitol 5 %-water intravenous piggybck 1 ea .Route ONCE #100 mL 11/18/22 [Rx Confirmed 03/02/23] insulin glargine 100 unit/mL subcutaneous cartridge 5 unit subcut DAILY dm 11/22/22 [History Confirmed 03/02/23] insulin lispro 100 unit/mL subcutaneous pen unit subcut ACHS dm 11/22/22 [History Confirmed 03/02/23] levothyroxine 150 mcg tablet 150 mcg PO .6 days per week thyroid #30 tabs 11/26/22 [Rx Confirmed 03/02/23] metoprolol tartrate 50 mg tablet 50 mg PO BID 30 days #60 tabs 11/26/22 [Rx Confirmed 03/02/23] PFSH Medical History Acute UTI COPD (chronic obstructive pulmonary disease) COPD exacerbation Diabetes mellitus type 1 Emphysema lung HLD (hyperlipidemia) HTN (hypertension) Hypothyroidism Hypothyroidism 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 Details: LIVIER SMALLS, is a 77 F who presents to the office today for evaluation and management of chronic conditions. 100% of history provided by pool table operator- Don- he manages her medications and injections. Pt suffers from dementia. Regarding her diabetes- GMI 7.5%. Consistent with A1C on 11/22/22 at 7.9%. Freestyle alivia downloaded and reviewed- She is low 4% of the time- these are occurring during sleeping hours and after correcting for elevations. Currently taking Lantus 5 u once daily and lispro 6- 10 u TIDCM. He will bolus after eating and addressing an elevation resulted in hypoglycemia. Sometimes if her blood sugar is low before a meal, he will not give rapid acting insulin. Regarding her hypothyroidism- 11/24/22 TSH 0.02, T4 1.45. At that time she was instructed to reduce levothyroxine 150 mcg to 6 days a week from 7. Labs have not been rechecked since reduction in medication. Don reports occasionally he will forget to skip Tuesday dose. Regarding osteoporosis- at previous appointment with Dr. Ceja, bone density results were discussed and decided to pursue zoledronic acid x5 years. She has not received infusion yet. She is currently taking vitamin D3 supplementation. Denies any recent fractures. Denies any acute concerns. Exam Const General: cooperative, healthy appearing, comfortable and no acute distress Nutritional Appearance: average body habitus Orientation: alert, awake and oriented x3 HENMT Head: normal to inspection Ears: hearing grossly normal bilaterally Nose: external nose normal Face and sinus: normal facial exam Mouth: oral mucosae normal Eyes General: appearance normal, both eyes and all related structures Alignment and Position: alignment normal Sclera: sclerae normal Neck Neck: normal visual inspection Carotids: normal carotid upstroke Chest Chest palpation inspection: normal inspection of the chest Resp Effort Inspection: normal respiratory effort, able to speak in complete sentences, symmetric chest movement, normal respiratory pattern, no audible wheezes and no cough Auscultation: Bilateral: Clear to Auscultation Cardio Rate: regular rate Rhythm: regular rhythm Heart Sounds: S1 normal and S2 normal Bruits: no carotid bruits GI Inspection: normal to inspection Musc Cervical Spine: normal cervical lordosis Thoracic/Lumbar Spine: thoracic and lumbar spine normal to inspection Skin General: no rashes or lesions noted Lesions: no lesions Rashes: no rashes Trauma: no lacerations or abrasions Wounds: no wounds Neuro General: patient alert, patient awake and patient oriented x3 Cognition: normal cognition Speech: speech normal Gait: normal gait Extrem General: normal to inspection and no pedal edema Psych Appearance: grossly normal Mental Status: mental status grossly normal Mood: congruent mood Affect: normal affect Speech and Movement: speech and movement normal Attitude: cooperative Thought Process: normal Thought Content: normal Judgment: judgment good Coding Level of Care Code Off vis,est,level 4 Diagnoses Diabetes mellitus type 1 E10.65 Diabetes mellitus complication status: with hyperglycemia 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 I reviewed with the patient the risk of developing and worsening of diabetes complications including retinopathy, neuropathy, nephropathy, heart attack, stroke, amputation, and sudden . Diabetes education provided. Decrease Lantus to 4 u once daily. Emphasized importance of bolusing for food PRIOR TO MEALS. Goals: Decrease likelihood of hospital admissions. Decrease instances of hypoglycemia. A1C goal 8%. CGM: she is checking blood sugar 4x/day, she is taking 4+ injections of subq insulinl/day, she uses bgl to titrate insulin dose, she is at risk of hypoglycemia. Notify office of persistent lows. Check CMP- I will interpret and communicate labs with senior product integrity engineer. Follow up in 3 months. 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 Check TSH/T4- I will interpret and communicate labs with senior product integrity engineer. Will titrate dose based on labs results. Take levothyroxine on an empty stomach with water at least four hours after eating. Then wait 30-60 minutes before consuming any other food or beverage, especially coffee. Separate levothyroxine from vitamins by at least 4 hours. Stop taking any biotin supplement 4 days prior to having labs drawn. (3) Osteoporosis: Status: Chronic Plan: Chronic- uncontrolled. Check GFR, calcium, and Vitamin D level- I will interpret and communicate results to senior product integrity engineer. Gave senior product integrity engineer [facility] number to schedule zoledronic acid infusion. Continue vitamin D3 supplementation. Report any fractures/kidney stones to office. I have spent [38] minutes today reviewing labs, records and history. Time includes coordinating care, interpretation of tests, discussion with patient's other health care providers via telephone. This also includes time I spent with the patient for exam, treatment plan and education as well as documenting clinical information. Orders: Orders Thyroid Stim Hormone (TSH) Today E03.8 - Other specified hypothyroidism, E06.3 - Autoimmune thyroiditis T4 Free Direct Today E03.8 - Other specified hypothyroidism, E06.3 - Autoimmune thyroiditis Comprehensive Metabolic Profil Today E10.9 - Type 1 diabetes mellitus without complications Vitamin D,25 Hydroxy Today M81.0 - Age-related osteoporosis without current pathological fracture Hemoglobin A1c Today E10.65 - Type 1 diabetes mellitus with hyperglycemia Plan Details Follow Up: 3 Months 03/02/23 1318 <Electronically signed by Delfina MORGAN> Date Delfina MORGAN Cosigner Signature: Date (if applicable) CC: DO Shena Bowden DO Work Phone: Start: 12-07-2022 End: 12-08-2022 Chest Min 4 Views Procedure Note: See Note; NOTES: [facility] [address] [place] [address] Chest Min 4 Views MR#: [id number] Acct: [id number] Name: LIVIER SMALLS Rep #: [id number] : 1945 F 77 From: Anders Quintanilla DO PCP: Dr. Shena Jeffers DO Status: DEP AMB Study: Chest Min 4 Views Date of Exam: 12/07/22 Exam# [id number] Ordering Dr: Shena Jeffers DO INDICATION: COUGH/PLEURAL EFFUSIONS BILATRAL EXAMINATION/TECHNIQUE: X-RAY - XR Chest Min 4 Views COMPARISON: November 22, 2022. FINDINGS: LINES/DEVICES: None. LUNGS: Possible mild right basilar infiltrate.. No pneumothorax. MEDIASTINUM AND CARDIOVASCULAR STRUCTURES: Cardiac silhouette not enlarged. Calcified aortic arch. Central airways and mediastinal contour are unremarkable. BONES AND SOFT TISSUES: Compression of midthoracic vertebral bodies. RAD/Chest Min 4 Views IMPRESSION: Possible right basilar infiltrate. Electronically Signed: Anders Quintanilla DO at 23:58 EST Reading Location ID and State: [facility] / [place] Tel [phone], Service support , CC: Dr. Shena Jeffers DO Retail Pharmacy Technician: Signed Shena Jeffers DO Work Phone: Start: 12-07-2022 Plain chest X-ray Dr. Millicent Jeffers Work Phone: Start: 11-24-2022 CT of chest without contrast Dr. Shena Jeffers Work Phone: Start: 11-22-2022 End: 11-22-2022 H AND P Exam - Hospitalist Procedure Note: See Note; NOTES: [facility] Medical Records Department [address] [place] [address] H P Exam - Hospitalist 11/22/22 1616 MR#: [id number] Acct: [id number] Name: LIVIER SMALLS Rep #: [id number] : 1945 77 From: Dallas Paulson DO PCP: Dr. Shena Jeffers DO Status:REG ER Location: ED HPI - General General Date of Service: 11/22/22 Chief Complaint: confusion HPI Narrative LIVIER SMALLS, is a 77 F who presents with confusion. History is obtained through the emergency room physician who spoke with the patient's . is not present on my evaluation and the patient is too confused to provide any history. But the patient apparently was doing well yesterday, they went to a restaurant with no difficulties and patient was able to go up the hill apparently. Today, patient noted to be confused and incontinent. Sent to the emergency room and wa s noted to be tachycardic, confused. Patient did receive IV fluids as patient's lactic acid was 3.5 . Patient had a urinalysis as concerning for UTI as well as infiltrate on chest x-ray so patient di d receive ceftriaxone and azithromycin. 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 Memory loss On home oxygen therapy Osteoporosis Pulmonary embolism, bilateral Smoker Home Medications amlodipine 5 mg-benazepril 10 mg capsule (Lotrel) 1 cap PO DAILY blood pressure 09/08/21 [History Last Taken 09/07/22] rivaroxaban 20 mg tablet (Xarelto) 20 mg PO DAILY blood thinner 04/23/22 [History Last Taken 09/08/22] oxybutynin chloride 10 mg tablet,extended release 24 hr 10 mg PO DAILY bladder 09/08/22 [History Last Taken 09/07/22] simvastatin 10 mg tablet 10 mg PO DAILY cholesterol 09/08/22 [History Last Taken 09/07/22] insulin aspart U-100 100 unit/mL subcutaneous solution (Novolog U-100 Insulin aspart) 20 unit (0.2 mL) subcut TID #20 mL 10/06/22 [Rx Last Taken Unknown] insulin glargine 100 unit/mL subcutaneous solution (Lantus U-100 Insulin) 10 unit (0.1 mL) subcut QPM #10 mL 10/06/22 [Rx Last Taken Unknown] levothyroxine 150 mcg tablet 150 mcg PO DAILY thyroid #30 tabs 11/11/22 [Rx Last Taken Unknown] zoledronic acid 5 mg/100 mL in mannitol 5 %-water intravenous piggybck 1 ea .Route ONCE #100 mL 10/25 04/15 [Rx Last Taken Unknown] Allergy/AdvReac Type Severity Reaction Status Date / Time ciprofloxacin [From Cipro] Allergy Intermediate hives Verified 11/22/22 14:44 Sulfa (Sulfonamide Allergy Intermediate hives Verified 11/22/22 14:44 Antibiotics) Family History Father Diabetes Respiratory disease Surgical History S/P insertion of insulin pump Social History household members: significant other and none number of children: 2 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 Smoking Status: Former smoker alcohol intake: current alcohol intake frequency: a few times a month substance use type: does not use ROS Review of Systems ROS Unobtainable: due to encephalopathy Vital Signs Vital Signs Vital Signs: 11/22/22 14:39 11/22/22 15:21 11/22/22 16:08 Temperature 38.2 C H 39.2 C H Temperature Source Temporal Core Pulse Rate 122 H 114 H Respiratory Rate 24 H 30 H Blood Pressure 142/115 H 142/60 H Blood Pressure Mean 124 87 Pulse Ox 93 91 96 Oxygen Delivery Method Room Air Nasal Cannula Nasal Cannula Oxygen Flow Rate (L/min) 2 2 Weight Weight: 68.2 kg Body Mass Index (BMI) 25.8 Physical Exam Const alert and no apparent distress Constitutional Narrative: Confused HEENT normocephalic and head/scalp atraumatic HEENT Narrative: Mucous membranes dry Eyes Eyes Narrative: No icterus Neck no lymphadenopathy Neck Narrative: No thyromegaly Resp normal respiratory effort and no retractions Cardio Cardio Narrative: Tachycardic but regular GI normal to inspection, nondistended, normoactive bowel sounds, soft to palpation, non-tender and non- distended Extremity normal to inspection and full ROM Neuro moves all extremities and no focal motor deficits Results Lab / Micro Data Result Diagrams: 11/22/22 14:50 11/22/22 14:50 Labs: Laboratory Results - last 24 hr 11/22/22 14:50: WBC 14.8 H, RBC 4.39, Hgb 11.9 L, Hct 37.4, MCV 85.2, MCH 27.1, MCHC 31.8 L, RDW Std Deviation 48.1 H, RDW Coeff of Kristyn 15.3 H, Plt Count 328, MPV 10.8, Immature Gran % (Auto) 0.400, Neut % (Auto) 85.9 H, Lymph % (Auto) 6.9 L, [place] % (Auto) 6.3, Eos % (Auto) 0.0, Baso % (Auto) 0.5, Absolute Neuts (auto) 12.7 H, Absolute Lymphs (auto) 1.02, Nucleated RBC % 0 11/22/22 14:50: PT 16.0 H, INR 1.3, APTT 36.3 H 11/22/22 14:50: Sodium 138, Potassium 4.2, Chloride 103, Carbon Dioxide 24.0, Anion Gap 11, BUN 23 H , Creatinine 1.19 H, Estim Creat Clear Calc 33.10, Est GFR (MDRD) Af Amer 56 L, Est GFR (MDRD) Non- Af 47 L, BUN/Creatinine Ratio 19.3, Glucose 265 H, Calcium 9.3, Total Bilirubin 0.40, AST 13 L, ALT 15, Alkaline Phosphatase 138 H, Troponin I High Sens 20, Total Protein 7.1, Albumin 2.6 L, Globulin 4.5 H, Albumin/Globulin Ratio 0.6 L 11/22/22 14:50: Lactic Acid 3.5 H* 11/22/22 15:15: Urine Color Yellow, Urine Clarity Clear, Urine pH 6.0, Ur Specific Lee 1.020, Urine Protein 30 H, Urine Glucose (UA) 1000 H, Urine Ketones 15 H, Urine Occult Blood 50 H, Urine Nitrite Positive H, Urine Bilirubin Negative, Urine Urobilinogen Normal, Ur Leukocyte Esterase 500 H , Urine RBC 0 SEEN, Urine WBC 25-50 SEEN, Ur Squamous Epith Cells 0 SEEN, Urine Bacteria 2+, Urine Mucus 0 SEEN Micro: Microbiology 11/22/22 15:06 Nasal Secretion SARS-CoV-2 FLU Antigen (Rapid) - Final Rhythm Strip Rhythm Strip: Sinus Tach Rate: 120 Ectopy: None Radiology Impression Chest X-Ray 11/22/22 15:35 IMPRESSION: Increased markings at the lung bases suggestive of scarring with superimposed atelectasis and/or early infiltrates worse on the right side. Electronically Signed: Ayden Sifuentes MD at 15:48 EST , Assessment Plan Assessment/Plan (1) Sepsis: PLAN: qSOFA score of 2 with tachypnea and change in mental status Suspected urinary or pulmonary source. Continue with antibiotics with ceftriaxone and azithromycin Follow-up cultures and adjust antibiotics accordingly COVID-19 and influenza were negative Patient did receive IV fluids emergency room and we will administer another liter of IV fluids. (2) Acute metabolic encephalopathy: PLAN: Secondary to sepsis and underlying infection and dementia Avoid potentiating medications (3) Acute UTI: PLAN: Continue with antibiotics Follow-up culture (4) Pneumonia: PLAN: Continue with antibiotics as above Check urinary engines for Streptococcus Legionella PLAN: Plan Chronic conditions * Diabetes mellitus type 1: Continue with glargine as well as prandial insulin. We will also add sliding scale insulin * Osteoporosis: Hold her zoledronic acid for now * Hypothyroidism: Continue with levothyroxine * COPD: Appears compensated this time. * History VTE: Continue with apixaban PT prophylaxis: Not indicated as patient is already anticoagulated. Charges/Coding Visit Charges Inpatient E M: 02274 Init Hosp L3 11/22/22 1622 <Electronically signed by Dallas Paulson DO> Cosigner Signature (if applicable): CC: Dr. Dallas Paulson DO; Dr. Shena Jeffers DO Signed Shena Jeffers DO Work Phone: Start: 11-22-2022 End: 11-22-2022 Chest 1 View (Portable) Procedure Note: See Note; NOTES: [facility] Imaging Services [address] [place] [id number] Chest 1 View (Portable) MR#: [id number] Acct: [id number] Name: LIVEIR SMALLS Rep #: [id number] : 1945 F 77 From: Ayden urbina MD PCP: Dr. Shena Jeffers DO Status: REG ER Study: Chest 1 View (Portable) Date of Exam: 11/22/22 Exam# [id number] Ordering Dr: Osiel Johnston MD STUDY: X-RAY CHEST REASON FOR EXAM: Female, 77 years old. Fever TECHNIQUE: Single AP portable view of the chest. COMPARISON: Comparison is made with prior study dated 09/08/2022. FINDINGS: EKG electrodes are seen. Bilateral breast prostheses. Increased markings at both lung bases likely worse on the right side. This is suggestive of bibasilar scarring and possible superimposed infiltrates. There is no demonstrated pleural abnormality. Normal size heart. Normal mediastinum and uli. Normal visualized pulmonary arteries. There is atherosclerotic calcification of the aortic arch with tortuosity. Normal visualized thoracic spine. Calcific tendinitis of the right shoulder. There is no demonstrated abnormality of the visualized soft tissue structures of the upper abdomen. RAD/Chest 1 View (Portable) IMPRESSION: Increased markings at the lung bases suggestive of scarring with superimposed atelectasis and/or early infiltrates worse on the right side. Electronically Signed: Ayden Sifuentes MD at 15:48 EST Reading Location ID and State: [facility] / [place] , Service support , CC: Dr. Osiel Johnston MD; Dr. Shena Jeffers DO Retail Pharmacy Technician: Signed Shena Jeffers DO Work Phone: Start: 11-22-2022 Plain chest X-ray Dr. Millicent Jeffers Work Phone: Start: 11-22-2022 End: 11-22-2022 Emergency Department Summary Procedure Note: See Note; NOTES: [facility] Medical Records Department [address] [place] [address] Emergency Department Summary 11/22/22 MR#: [id number] Acct: [id number] Name: LIVIER SMALLS Rep #: [id number] : 1945 77 From: Osiel Johnston MD PCP: Dr. Shena Jeffers DO Status:REG ER Location: ED HPI History of Present Illness Chief Complaint: General Illness Informant: patient and spouse/S.O. Onset/Context/Timing Onset: Yesterday Context: Gradual Onset Timing: Continuous Quality: confused, febrile, malaised Location: generally Current Severity: Severe Maximum Severity: Severe Worsened by: nothing Relieved by: nothing Narrative Narrative: Patient started getting generally weak and confused yesterday, much worse today with inability to stand or walk as a result. Running a fever up to 103 according to the who provides most of the history. Patient is confused, we attempt to get some history from her, but it is very limited because she is confused. She tells nursing initially that she has no pain, then she tells me that her chest is hurting and that it is a 9, but then she reverts back and states that she does not have any chest pain and has no pain anywhere or headache. states she has COPD, she was on oxygen but was doing well with the last couple weeks and decided to go off of her oxygen as they were watching her pulse oximetry and it was in the 92-94 range. This includes yesterday before she was feeling poorly where she walked up a hill without any dyspnea or issues. has not noticed any coughing or shortness of breath recently. She is chronically incontinent of urine. She has had no falls or injuries today. She is not vaccinated against COVID or influenza. She is a type I diabetic and he has been checking her blood sugars and they have been in the 200s. She has also had a couple of minor episodes of emesis. 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 Memory loss On home oxygen therapy Osteoporosis Pulmonary embolism, bilateral Smoker Home Medications amlodipine 5 mg-benazepril 10 mg capsule (Lotrel) 1 cap PO DAILY blood pressure 09/08/21 [History Last Taken 09/07/22] rivaroxaban 20 mg tablet (Xarelto) 20 mg PO DAILY blood thinner 04/23/22 [History Last Taken 09/08/22] oxybutynin chloride 10 mg tablet,extended release 24 hr 10 mg PO DAILY bladder 09/08/22 [History Last Taken 09/07/22] simvastatin 10 mg tablet 10 mg PO DAILY cholesterol 09/08/22 [History Last Taken 09/07/22] insulin aspart U-100 100 unit/mL subcutaneous solution (Novolog U-100 Insulin aspart) 20 unit (0.2 mL) subcut TID #20 mL 10/06/22 [Rx Last Taken Unknown] insulin glargine 100 unit/mL subcutaneous solution (Lantus U-100 Insulin) 10 unit (0.1 mL) subcut QPM #10 mL 10/06/22 [Rx Last Taken Unknown] levothyroxine 150 mcg tablet 150 mcg PO DAILY thyroid #30 tabs 11/11/22 [Rx Last Taken Unknown] zoledronic acid 5 mg/100 mL in mannitol 5 %-water intravenous piggybck 1 ea .Route ONCE #100 mL 11/18/22 [Rx Last Taken Unknown] Allergy/AdvReac Type Severity Reaction Status Date / Time ciprofloxacin [From Cipro] Allergy Intermediate hives Verified 11/22/22 14:44 Sulfa (Sulfonamide Allergy Intermediate hives Verified 11/22/22 14:44 Antibiotics) Family History Father Diabetes Respiratory disease Surgical History S/P insertion of insulin pump Social History household members: significant other and none number of children: 2 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 Smoking Status: Former smoker alcohol intake: current alcohol intake frequency: a few times a month substance use type: does not use ROS ROS ED Review of Systems ROS Unobtainable: due to mental status Constitutional Constitutional ED: Reports fatigue, fever(s), malaise and weakness Gastrointestinal Gastrointestinal: Reports nausea and vomiting Genitourinary Genitourinary ED: Reports urinary incontinence Neurologic Neurologic: Reports confusion; Denies headache(s) EXAM Physical Exam Const Vital Signs: 11/22/22 14:39 11/22/22 15:21 Temperature 100.8 F H Temperature Source Temporal Pulse Rate 122 H Respiratory Rate 24 H Blood Pressure 142/115 H Blood Pressure Mean 124 Pulse Ox 93 91 Oxygen Delivery Method Room Air Nasal Cannula Oxygen Flow Rate (L/min) 2 Positive well nourished and well developed Constitutional Narrative: lethargic General Appearance ED: well developed HEENT Reports moist mucous membranes normocephalic and atraumatic Eyes PERRL and EOMs intact bilaterally Neck full ROM, no lymphadenopathy and supple Neck Narrative: No meningismus. Chest Wall inspection of chest normal and palpation of chest normal Resp normal respiratory effort Resp Narrative: Rales right base, otherwise diminished/clear, trachea midline, no respiratory distress. Cardio regular rate, regular rhythm and no murmurs Rate: tachycardic GI non-tender and non-distended Auscultation: normoactive bowel sounds Palpation: soft Back/Spine no CVA tenderness General Back: other FROM Extremity normal to inspection General Extremety ED: Negative for edema, pulses abnormal or tenderness General Extremity: Negative for edema or pulses abnormal Neuro CN's II-XII intact bilaterally and no sensory deficits noted Neuro Narrative: Lethargic, eyes open, confused. Is able to answer questions. Oriented to person, her , place, but not time/month/year. Moving all 4 extremities equally, weak. [place] Coma Scale: document GCS findings Spontaneous Obeys Commands Confused 14 Sensorium / Orientation: awake and alert Motor Exam: general weakness Skin no rashes or lesions noted and no wounds Sepsis Attestation Sepsis Alert: Yes Sepsis Attestation: Agree w/Sepsis Date exam was performed: 11/22/22 Time exam was performed: 14:50 Possible Source of Sepsis: Pulmonary, Genitourinary and Unknown Sepsis Organ Dysfunction Criteria Present: Lactic Acid > 2 mmol/L and New/Unexplained change in mental status Supportive Findings: qSOFA (Quick SOFA) Score for Sepsis from [employer] on 11/22/2022 All calculations should be rechecked by clinician prior to use RESULT SUMMARY: 2 points qSOFA Score High Risk qSOFA Scores 2-3 are associated with a 3- to 14-fold increase in in-hospital mortality. Assess for evidence of organ dysfunction with blood testing including serum lactate and calculation of the full SOFA Score. Patients meeting these qSOFA criteria should have infection considered even if it was previously not. INPUTS: Altered mental status ???> 1 = Yes Respiratory rate ge;22 ???> 1 = Yes Systolic BP le;100 ???> 0 = No Fluid Resuscitation Fluid resuscitation indicated?: Yes Fluid Resuscitation ordered: 30 ml/kg fluid bolus ordered Sepsis Note Date exam was performed: 11/22/22 Time exam was performed: 16:00 Sepsis Attestation: Sepsis re-evaluation was performed MDM MDM MDM Narrative Medical decision making narrative: Patient was recently seen by her tapper helper as an outpatient, 11/18 which was 4 days ago. I reviewed that note. Other than having some memory issues and being unreliable with regards to taking her osteoporosis pill, the encounter seemed relatively unremarkable. Concern today is that she has an acute infection causing her fever and delirium. Septic work-up obtained, she was given IV fluids, Zofran, and Tylenol. Nursing felt like the patient was unable to swallow pills or liquid safely, so we canceled the oral Tylenol and replaced it with a suppository. 1 view chest x-ray my interpretation shows some chronic abnormalities in the bases that may represent early pneumonia in right base. Radiology in agreement. Her urine, however, appears to be lighting up several infectious indicators suggesting that is the source. She was pancultured and started on Rocephin and Zithromax. Blood pressure remained stable. Her pulse oximetry was borderline at 90%, so we placed 2 L on her, making her 91-93%. Discussed w/ hospitalist Dr. Paulson. Lab Data Attestation: I reviewed the patient's lab results. Labs: Laboratory Results - last 24 hr 11/22/22 11/22/22 11/22/22 14:50 14:50 14:50 WBC 14.8 H RBC 4.39 Hgb 11.9 L Hct 37.4 MCV 85.2 MCH 27.1 MCHC 31.8 L RDW Std Deviation 48.1 H RDW Coeff of Kristyn 15.3 H Plt Count 328 MPV 10.8 Immature Gran % (Auto) 0.400 Neut % (Auto) 85.9 H Lymph % (Auto) 6.9 L [place] % (Auto) 6.3 Eos % (Auto) 0.0 Baso % (Auto) 0.5 Absolute Neuts (auto) 12.7 H Absolute Lymphs (auto) 1.02 Nucleated RBC % 0 PT 16.0 H INR 1.3 APTT 36.3 H Sodium 138 Potassium 4.2 Chloride 103 Carbon Dioxide 24.0 Anion Gap 11 BUN 23 H Creatinine 1.19 H Estim Creat Clear Calc 33.10 Est GFR (MDRD) Af Amer 56 L Est GFR (MDRD) Non-Af 47 L BUN/Creatinine Ratio 19.3 Glucose 265 H Lactic Acid Calcium 9.3 Total Bilirubin 0.40 AST 13 L ALT 15 Alkaline Phosphatase 138 H Troponin I High Sens 20 Total Protein 7.1 Albumin 2.6 L Globulin 4.5 H Albumin/Globulin Ratio 0.6 L Urine Color Urine Clarity Urine pH Ur Specific Lee Urine Protein Urine Glucose (UA) Urine Ketones Urine Occult Blood Urine Nitrite Urine Bilirubin Urine Urobilinogen Ur Leukocyte Esterase Urine RBC Urine WBC Ur Squamous Epith Cells Urine Bacteria Urine Mucus 11/22/22 11/22/22 14:50 15:15 WBC RBC Hgb Hct MCV MCH MCHC RDW Std Deviation RDW Coeff of Kristyn Plt Count MPV Immature Gran % (Auto) Neut % (Auto) Lymph % (Auto) [place] % (Auto) Eos % (Auto) Baso % (Auto) Absolute Neuts (auto) Absolute Lymphs (auto) Nucleated RBC % PT INR APTT Sodium Potassium Chloride Carbon Dioxide Anion Gap BUN Creatinine Estim Creat Clear Calc Est GFR (MDRD) Af Amer Est GFR (MDRD) Non-Af BUN/Creatinine Ratio Glucose Lactic Acid 3.5 H* Calcium Total Bilirubin AST ALT Alkaline Phosphatase Troponin I High Sens Total Protein Albumin Globulin Albumin/Globulin Ratio Urine Color Yellow Urine Clarity Clear Urine pH 6.0 Ur Specific Lee 1.020 Urine Protein 30 H Urine Glucose (UA) 1000 H Urine Ketones 15 H Urine Occult Blood 50 H Urine Nitrite Positive H Urine Bilirubin Negative Urine Urobilinogen Normal Ur Leukocyte Esterase 500 H Urine RBC 0 SEEN Urine WBC 25-50 SEEN Ur Squamous Epith Cells 0 SEEN Urine Bacteria 2+ Urine Mucus 0 SEEN Radiography Diagnostic Testing: Clinical Impression(s) from Imaging Studies Chest X-Ray 11/22/22 15:35 IMPRESSION: Increased markings at the lung bases suggestive of scarring with superimposed atelectasis and/or early infiltrates worse on the right side. Electronically Signed: Ayden Sifuentes MD at 15:48 EST , Rhythm Strip Rhythm Strip: Sinus Tach Rate: 120 Ectopy: None EKG Initial EKG: Attestation: I personally reviewed and interpreted this EKG as follows: Interpretation: No Acute Injury Pattern and Sinus Tachycardia Prior EKG tracings: available for review Prior: Unchanged Discharge Plan Dx/Rx/DC Orders Clinical Impression: Acute UTI, Acute metabolic encephalopathy, Sepsis Disposition Disposition: Acute Care Hospital [facility] What to do if you have Problems For any increased pain, shortness of breath, bleeding, nausea or vomiting, chest pain, or any unexpected problems, contact your Primary Care Provider. Call [facility] ([phone]) or report to the closest Emergency Room. Call 911 if necessary. 11/22/22 1609 <Electronically signed by Oseil Johnston MD> Cosigner Signature (if applicable): CC: Dr. Shena Jeffers, DO Signed Shena Jeffers DO Work Phone: Start: 11-18-2022 End: 11-19-2022 Endocrinology Visit Report Procedure Note: See Note; NOTES: [facility] [address] [place] [address]. [address] [place] [address] OFFICE VISIT Date of Service: 11/18/22 MR#: [id number] Acct: [id number] Name: LIVIER SMALLS Rep #: [id number] : 1945 Provider: Jax Wong Age/Sex: 77/F [place] [facility] [place] Signed Intake Vital Signs 11/18/22 11:25 Height 5 ft 4 in Weight: 147 lb 6 oz BMI 25.2 BP 143/79 H Blood Pressure Location Rt brachial Position Sitting Respiration 20 H Pulse 94 Pulse Source Monitor Temp 97.0 F L Temp Source Temporal Pulse Oximetry (%) 90 Oxygen Delivery Method room air Intake Visit Reasons: 6 wk FU Chief Complaint: f/u diabetes/osteoporosis Attendant Campground Required: No Accompanied by: Significant Other Is patient in pain?: No Allergies ciprofloxacin [From Cipro] Allergy (Intermediate, Verified 11/18/22 11:36) hives Sulfa (Sulfonamide Antibiotics) Allergy (Intermediate, Verified 11/18/22 11:36) hives Nurse's Note: 10/06/22 8.9% [facility] Medical History COPD (chronic obstructive pulmonary disease) COPD exacerbation Diabetes mellitus type 1 Emphysema lung HLD (hyperlipidemia) HTN (hypertension) Hypothyroidism Hypothyroidism 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 Memory loss On home oxygen therapy Osteoporosis Pulmonary embolism, bilateral Smoker Surgical History S/P insertion of insulin pump Family History Father Diabetes Respiratory disease Social History household members: significant other and none number of children: 2 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 Her diabetes is fairly stable. Her friend Zofia is managing for due to her her memory loss. She is taking basal bolus and is using Alivia 2 CGM. The patient is checking their blood sugar 4 times per day. The patient is taking insulin 3 or more times per day. The patient is using the CGM blood sugars to adjust their meal time insulin dosing. The patient is at risk for hypoglycemia. I reviewed the CGM and blood sugars have highs and lows, but looks pretty good for her. Last A1C was one month ago and was 8.9% She now has been diagnosed with osteoporosis. Lumbar Spine (L1-L4):??? g/cm2 (0.886)??? /??? T-score (-1.5)??? /??? Z-score (1.2) Findings are suggestive of osteopenia with a low fracture risk. Left Femur Total:??? g/cm2 (0.661)??? /??? T-score (-2.3)??? /??? Z-score (-0.3) Left Femoral Neck:??? g/cm2 (0.568)??? /??? T-score (-2.5)??? /??? Z-score (-0.3) Right Femur Total:??? g/cm2 (0.657)??? /??? T-score (-2.3)??? /??? Z-score (-0.3) Right Femoral Neck:??? g/cm2 (0.575)??? /??? T-score (-2.5)??? /??? Z-score (-0.2) She denies history of fracture, she denies taking osteoporosis medications in the past. Exam Const General: cooperative, healthy appearing, comfortable, no acute distress, well developed and not cushingoid Nutritional Appearance: well nourished Orientation: alert, awake and oriented x3 HENFL Head: normal to inspection Ears: hearing grossly normal bilaterally Nose: external nose normal Mouth: oral mucosae normal Eyes General: appearance normal, both eyes and all related structures Alignment and Position: alignment normal Periorbital: periorbital findings normal Eyelids: eyelids normal Conjunctivae: conjunctivae normal Neck Neck: normal visual inspection Neck mass: No Thyroid: thyroid normal Chest Chest palpation inspection: normal inspection of the chest Resp Effort Inspection: normal respiratory effort, able to speak in complete sentences, symmetric chest movement, no audible wheezes and no cough Cardio Rate: regular rate Rhythm: regular rhythm GI Inspection: normal to inspection Skin General: no rashes or lesions noted Neuro General: patient alert, patient awake and patient oriented x3 Cranial Nerves: CN's II-XI intact bilaterally Cognition: abnormal cognition (short term memory loss) Speech: speech normal Gait: normal gait Motor: muscle tone normal throughout Extrem General: no edema Psych Appearance: grossly normal Mental Status: mental status grossly normal Mood: congruent mood Affect: normal affect Speech and Movement: speech and movement normal Attitude: cooperative Thought Process: normal Thought Content: normal Judgment: fair Coding Level of Care Code Off vis,est,level 4 Diagnoses Osteoporosis M81.0 Diabetes mellitus type 1 E10.65 Diabetes mellitus complication status: with hyperglycemia 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 Will order Zoledronic acid IV yearly for 5 years. Discussed with patient in detail. (2) Diabetes mellitus type 1: Status: Acute Qualifiers: Diabetes mellitus complication status: with hyperglycemia Qualified Code(s): E10.65 - Type 1 diabetes mellitus with hyperglycemia Plan: Diabetes education provided. I reviewed her CGM with patient and friend. 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 Then wait 30-60 minutes before consuming any other food or beverage, especially coffee. Separate levothyroxine from vitamins by at least 4 hours. Stop taking any biotin supplement 4 days prior to having labs drawn. I have spent [32] minutes today reviewing labs, records and history. Time includes coordinating care, interpretation of tests, discussion with patient's other health care providers via telephone. This also includes time I spent with the patient for exam, treatment plan and education as well as documenting clinical information. Medications: New zoledronic mzwt-jqjgvail-siyae 5 mg/100 mL infuse over 20 minutes 100 mL 0RF 11/19/22 0745 <Electronically signed by Haresh Ceja MD> Date Haresh Ceja MD Cosigner Signature: Date (if applicable) CC: DO Shena Bowden DO Work Phone: Start: 11-09-2022 End: 11-10-2022 Dexa Bone Density Study Procedure Note: See Note; NOTES: [facility] Imaging Services [address] [place] [id number] Dexa Bone Density Study MR#: [id number] Acct: [id number] Name: LIVIER SMALLS Rep #: [id number] : 1945 F 77 From: Ayden urbina MD PCP: Dr. Shena Jeffers, Status: [facility] Study: Dexa Bone Density Study Date of Exam: 11/09/22 Exam# [id number] Ordering Dr: Delfina Velasquez SECURITY RISK ANALYST-C STUDY: DUAL ENERGY X-RAY ABSORPTIOMETRY / DXA REASON FOR EXAM: Female, 77 years old. M85.80 - Other specified disorders of bone density and structu... TECHNIQUE: Bone Mineral Density (BMD) measurements of lumbar spine and bilateral hips were obtained. COMPARISON: None. FINDINGS: Lumbar Spine (L1-L4): g/cm2 (0.886) / T-score (-1.5) / Z-score (1.2) Findings are suggestive of osteopenia with a low fracture risk. Left Femur Total: g/cm2 (0.661) / T-score (-2.3) / Z-score (-0.3) Left Femoral Neck: g/cm2 (0.568) / T-score (-2.5) / Z-score (-0.3) Right Femur Total: g/cm2 (0.657) / T-score (-2.3) / Z-score (-0.3) Right Femoral Neck: g/cm2 (0.575) / T-score (-2.5) / Z-score (-0.2) BD/Dexa Bone Density Study IMPRESSION: The patient is considered osteopenic as outlined below according to World [place] Organization (WHO) criteria with a high fracture risk. Reference Information: The T-score is the number of standard deviations above or below the standard which is normal for young adults at their peak bone mineral density. The World Health Organization (WHO) interprets the T-scores as follows: Above -1 Normal bone density Between -1 and -2.5 Osteopenia Equal to / or below -2.5 Osteoporosis As a practical clinical guideline, osteopenia may be graded as follows: Mild -1 through -1.5 Moderate -1.6 through -2.0 Severe -2.1 through -2.4 The Z-score is the number of standard deviations above or below age-matched controls. A Z-score of less than -1.5 would be considered abnormal. References: 1. NIH Osteoporosis and Related Bone Diseases www osteo.org 2. International Society for Clinical Densitometry www iscd.org 3. National Osteoporosis Foundation www nof.org Electronically Signed: Ayden Sifuentes MD at 13:38 EST , CC: EDDIE Velasquez; Dr. Shena Jeffers DO Retail Pharmacy Technician: Signed Shena Jeffers DO Work Phone: Start: 11-09-2022 Dual energy X-ray absorptiometry Dr. Shena Jeffers Work Phone: Start: 11-09-2022 End: 11-09-2022 Venous Duplex US, Unilateral Procedure Note: See Note; NOTES: [facility] [address] [place] [address] Venous Duplex US, Unilateral 11/09/22 1343 MR#: [id number] Acct: [id number] Name: LIVIER SMALLS Rep #: [id number] : 1945 77 From: Dallas Chong MD Attending Dr: Dr. Shena Jeffers DO Status: R EG CLI Ordering Dr: Shena Jeffers DO Date: 11/09/22 Location: [facility] Sex: F C Admitted: Reason For Study: DVT Procedure LEFT This is a venous duplex using B-mode, color GSV is normal. flow and spectral Doppler. EIV is partially compressible with decreased Exam performed in department. pulsatile flow noted. Compared to 06/03/2022. CFV is partially compressible with bright intraluminal echoes consistent with Chronic DVT. Pulsatile flow noted. FV is compressible, continuous flow, competent and demonstrates normal augmentation. POP V is compressible, continuous flow, competent and demonstrates normal augmentation. T/P Trunk is compressible. PTV is compressible. LT PerV is compressible. VL/Venous Duplex US, Unilateral Interpretation Summary Acute deep vein thrombosis is noted in the left external iliac vein. Chronic deep venous thrombosis noted in the left common femoral vein. Abnormal flow pattern demonstrated throughout left lower extremity. Vascular surgery consult may be beneficial. Ordering Physician: Shena Jeffers Referring Physician: Shena Jeffers Performed By: Jeanine Lockhart RVT 11/09/22 1645 Date Dallas Chong MD CC: Dr. Shena Jeffers DO Date Dictated: 11/09/22 1343 Date Transcribed: 11/09/22 164 Retail Pharmacy Technician: Albert Jeffers DO Work Phone: Start: 10-06-2022 End: 10-06-2022 Endocrinology Visit Report Procedure Note: See Note; NOTES: [facility] [address] [place], [place] [address] OFFICE VISIT Date of Service: 10/06/22 MR#: [id number] Acct: [id number] Name: LIVIER SMALLS Rep #: [id number] : 1945 Provider: EDDIE handy Age/Sex: 77/F [place] [facility] [place]: Signed Intake Vital Signs 08/11/22 09:13 09/08/22 16:24 10/06/22 10:49 Height 5 ft 4 in 5 ft 4 in 5 ft 4 in Weight: 143 lb BMI 24.5 BP 115/66 Blood Pressure Location Lt brachial Position Sitting Respiration 18 Pulse 90 Pulse Source Monitor Temp 97.6 F L Temp Source Temporal Pulse Oximetry (%) 93 Oxygen Delivery Method room air Intake Visit Reasons: 2 M FU Chief Complaint: f/u diabetes Attendant Campground Required: No Accompanied by: Significant Other Is patient in pain?: No Allergies ciprofloxacin [From Cipro] Allergy (Intermediate, Verified 10/06/22 10:55) hives Sulfa (Sulfonamide Antibiotics) Allergy (Intermediate, Verified 10/06/22 10:55) hives [facility] Medical History COPD (chronic obstructive pulmonary disease) COPD exacerbation Diabetes Emphysema lung HLD (hyperlipidemia) HTN (hypertension) Hypothyroidism Hypothyroidism 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 Memory loss On home oxygen therapy Osteopenia Pulmonary embolism, bilateral Smoker Surgical History S/P insertion of insulin pump Family History Father Diabetes Respiratory disease Social History household members: significant other and none number of children: 2 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 Majority of information is provided by patient's pool table operator- Zofia. A1C today is 8.9%, increased from 08/11/22 at 8.1%. She was admitted to the hospital mid August for DKA. Don states that they ran out of meal time insulin, when they were able to obtain prescription the pharmacy was out stock, during that time her blood sugars became elevated and she developed nausea/vomiting. She was admitted to [facility] for 2 days for blood sugar control. They did not bring any blood sugars or her CGM for review. Reports continued lows- she will treat by drinking a bottle of Ck D. Patient continues to forget to bolus for meals, she will occasionally bolus after a meal. Reports diet continues to contain a large amount of desserts. Currently taking Lantus 4 u once daily. At last appointment we discussed carb counting, however, Zofia states that she continues to dose as she wishes- Novolog 6-10 u with meals. She has not gotten DEXA scan completed yet. Zofia states that he screens phone calls. Reports compliance with vitamin D3 2,000 iu once daily. Denies any recent fractures. Regarding hypothyroidism- Currently taking levothyroxine 150 mcg once daily. Reports that she no longer takes after breakfast, she now has pills on bedside table to take as soon as she wakes in AM. 08/11/22 TSH 0.23 T4 1.45. She will get repeat labs done in 4 weeks. Denies any signs/symptoms of hypo/hyperthyroidism. Denies any acute concerns. Exam Const General: cooperative, healthy appearing, comfortable and no acute distress Nutritional Appearance: average body habitus Orientation: alert, awake and oriented x3 HENMT Head: normal to inspection Ears: hearing grossly normal bilaterally Nose: external nose normal Face and sinus: normal facial exam Eyes General: appearance normal, both eyes and all related structures Alignment and Position: alignment normal Sclera: sclerae normal Neck Neck: normal visual inspection and full ROM Carotids: normal carotid upstroke Chest Chest palpation inspection: normal inspection of the chest Resp Effort Inspection: normal respiratory effort, able to speak in complete sentences, symmetric chest movement, normal respiratory pattern, no audible wheezes and no cough Auscultation: Bilateral: Clear to Auscultation Cardio Rate: regular rate Rhythm: regular rhythm Heart Sounds: S1 normal and S2 normal Bruits: no carotid bruits GI Inspection: normal to inspection Musc Cervical Spine: normal cervical lordosis Thoracic/Lumbar Spine: thoracic and lumbar spine normal to inspection Skin General: no rashes or lesions noted Lesions: no lesions Rashes: no rashes Trauma: no lacerations or abrasions Wounds: no wounds Neuro General: patient alert, patient awake and patient oriented x3 Cognition: normal cognition Speech: speech normal Gait: normal gait Extrem General: normal to inspection, full ROM and no pedal edema Psych Appearance: grossly normal Mental Status: mental status grossly normal Mood: congruent mood Affect: normal affect Speech and Movement: speech and movement normal Attitude: cooperative Thought Process: normal Thought Content: normal Judgment: judgment good Results POC A1C POC A1C 8.9 % Last Edit by Carolyn Hall on 10/06/22 11:07 Coding Level of Care Code Off vis,est,level 5 Diagnoses Diabetes E11.9 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 I personally reviewed notes of recent hospitalization/admission. I reviewed with the patient the risk of developing and worsening of diabetes complications including retinopathy, neuropathy, nephropathy, heart attack, stroke, amputation, and sudden . Diabetes education provided. Continue Lantus 4 u once daily. Continue Novolog 6-10 units TIDCM based on amount of carbs consuming. I did give a sample of Lyumjev to be taken with them when they go out to eat. Emphasized importance of taking meal time insulin before meals. Call office with persistent lows. A1C not at goal: <7.5%, however, given memory impairment and Don's limited knowledge of diabetes, A1C may be as well as she can do. Goal moving forward is to decrease hospitalizations d/t poor blood sugar control. Emotional support given. Follow up in 1 month per Don's request. 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 Continue levothyroxine 150 mcg once daily. Check TSH/T4 in 4 weeks. Dose may need to be adjusted as this is a high dose for her weight and she is now taking properly. Take levothyroxine on an empty stomach with water at least four hours after eating. Then wait 30-60 minutes before consuming any other food or beverage, especially coffee. Separate levothyroxine from vitamins by at least 4 hours. Stop taking any biotin supplement 4 days prior to having labs drawn. (3) Osteopenia: Status: Chronic Plan: Chronic- stability unknown. Continue vitamin D3 2,000 iu once daily. Gave [facility] scheduling number so that he can call to schedule imaging. I have spent [42] minutes today reviewing labs, records and history. Time includes coordinating care, interpretation of tests, discussion with patient's other health care providers via telephone. This also includes time I spent with the patient for exam, treatment plan and education as well as documenting clinical information. Orders: Orders POC A1C Today E11.9 - Type 2 diabetes mellitus without complications Medications: New insulin aspart U-100 (Novolog U-100 Insulin aspart) 20 units (0.2 mL) subcut TID 20 mL 5RF E11.9 - Type 2 diabetes mellitus without complications insulin glargine (Lantus U-100 Insulin) 10 units (0.1 mL) subcut QPM 10 mL 1RF E11.9 - Type 2 diabetes mellitus without complications Discontinued insulin glargine (Lantus U-100 Insulin) Discontinued Reason: Order Changed 20 units (0.2 mL) subcut QHS 10 mL 0RF diabetes Plan Details Follow Up: 1 Month 10/06/22 1327 <Electronically signed by Delfina MORGAN> Date Delfina MORGAN Cosigner Signature: Date (if applicable) CC: DO Shena Bowden DO Work Phone: Start: 09-08-2022 End: 09-08-2022 Chest 1 View (Portable) Procedure Note: See Note; NOTES: [facility] Imaging Services [address] [place] [id number] Chest 1 View (Portable) MR#: [id number] Acct: [id number] Name: LIVIER SMALLS Rep #: [id number] : 1945 F 77 From: Ayden urbina MD PCP: Dr. Shena Jeffers DO Status: REG ER Study: Chest 1 View (Portable) Date of Exam: 09/08/22 Exam# [id number] Ordering Dr: Manjeet Ponce DO STUDY: X-RAY CHEST REASON FOR EXAM: Female, 77 years old. Weakness. Hyperglycemia. TECHNIQUE: Single AP portable view of the chest. COMPARISON: Comparison is made with prior study dated 01/27/2022. FINDINGS: EKG electrode are seen. Stable rim calcification of the bilateral breast implants. Stable mild increased markings at the lung bases suggestive scarring. There is no demonstrated pleural abnormality. Normal size heart. Normal mediastinum and uli. Normal visualized pulmonary arteries. There is atherosclerotic calcification of the aortic arch with tortuosity. There are degenerative changes of the visualized thoracic spine. Normal visualized ribs, clavicles, and shoulders. There is no demonstrated abnormality of the visualized soft tissue structures of the upper abdomen. RAD/Chest 1 View (Portable) IMPRESSION: Findings suggestive of stable scarring at the lung bases. Stable appearance of the bilateral breast implants. Electronically Signed: Ayden Sifuentes MD at 8:54 EST , CC: Dr. Manjeet Ponce DO; Dr. Shena Jeffers DO Retail Pharmacy Technician: Signed Shena Jeffers DO Work Phone: Start: 09-08-2022 Plain chest X-ray Dr. Millicent Jeffers Work Phone: Start: 08-11-2022 End: 08-11-2022 Endocrinology Visit Report Procedure Note: See Note; NOTES: [facility] [address] [place] [address] OFFICE VISIT Date of Service: 08/11/22 MR#: [id number] Acct: [id number] Name: LIVIER SMALLS Rep #: [id number] : 1945 Provider: EDDIE handy Age/Sex: 77/F [place] [facility] [place]: Signed Intake Vital Signs 05/26/22 14:13 06/05/22 15:10 08/11/22 09:13 Height 5 ft 2.5 in 5 ft 4 in 5 ft 4 in Weight: 142 lb 6 oz BMI 24.4 BP 174/76 H Blood Pressure Location Lt brachial Position Sitting Respiration 18 Pulse 91 Pulse Source Monitor Temp 95.8 F L Temp Source Temporal Pulse Oximetry (%) 91 Oxygen Delivery Method room air Intake Visit Reasons: 2 M FU Chief Complaint: f/u diabetes Attendant [employer] Required: No Accompanied by: Significant Other Is patient in pain?: No Allergies ciprofloxacin [From Cipro] Allergy (Intermediate, Verified 08/11/22 09:29) hives Sulfa (Sulfonamide Antibiotics) Allergy (Intermediate, Verified 08/11/22 09:29) hives Nurse's Note: Pt had A1C 05/26/22 8.1% PFSH Medical History COPD (chronic obstructive pulmonary disease) COPD exacerbation Diabetes Emphysema lung HLD (hyperlipidemia) HTN (hypertension) Hypothyroidism Hypothyroidism 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 Large majority of information provided by pool table operator/caregiver Don as patient has significant dementia. A1C today is 8.1%, improved slightly from April at 8.2%. [employer] downloaded and reviewed- she is having lows during sleeping hours and between meals- once episode required assistance from EMS- pool table operator states bgl was 30's. She was given IV Dextrose and signed off on scene. Currently taking Lantus 6 u once daily and Novolog 10 u TIDCM, 4 u with snacks +SSI. Don states that she usually does not take insulin until after meals. He is unsure of how much insulin to give her based on what she is eating. Her diet consists of large amounts of unmatched, low fiber carbohydrates. She drinks Ck-D daily. She has not had her DEXA scan completed yet. Don states that she is taking vitamin D3 daily, however, he is unsure of dosage. Currently taking levothyroxine 150 mcg once daily- however, Don admits that she forgets doses, and usually takes after breakfast. TSH on 06/05 was 0.04, T4 1.68. Dose was not adjusted at that time. She denies symptoms of hyper/hypothyroidism. Denies any acute concerns. Exam Const General: cooperative, healthy appearing, comfortable and no acute distress Nutritional Appearance: obese Orientation: alert, awake and oriented x3 HENMT Head: normal to inspection Ears: hearing grossly normal bilaterally Eyes General: appearance normal, both eyes and all related structures Alignment and Position: alignment normal Sclera: sclerae normal Neck Neck: normal visual inspection and full ROM Neck mass: No Carotids: normal carotid upstroke Chest Chest palpation inspection: normal inspection of the chest Resp Effort Inspection: normal respiratory effort, able to speak in complete sentences, symmetric chest movement, normal respiratory pattern, no audible wheezes and no cough Auscultation: Bilateral: Clear to Auscultation Cardio Rate: regular rate Rhythm: regular rhythm Heart Sounds: S1 normal and S2 normal GI Inspection: normal to inspection Musc Cervical Spine: normal cervical lordosis Thoracic/Lumbar Spine: thoracic and lumbar spine normal to inspection Skin General: no rashes or lesions noted Lesions: no lesions Rashes: no rashes Trauma: no lacerations or abrasions Wounds: no wounds Neuro General: patient alert, patient awake and patient oriented x3 Cognition: normal cognition Speech: speech normal Gait: normal gait Extrem General: normal to inspection, full ROM and no pedal edema Psych Appearance: grossly normal Mental Status: mental status grossly normal Mood: congruent mood Affect: normal affect Speech and Movement: speech and movement normal Thought Process: normal Thought Content: normal Judgment: limited Coding Level of Care Code Off vis,est,level 5 Diagnoses Diabetes E11.9 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 I reviewed with the patient the risk of developing and worsening of diabetes complications including retinopathy, neuropathy, nephropathy, heart attack, stroke, ampuation, and sudden . Extensive diabetes education provided. She is not a candidate for tight control. Decrease Lantus to 4 u once daily to alleviate lows between meals and during sleeping hours. Switch to carb counting to better cover what patient is eating- 1:10, continue sliding scale. Reviewed examples with patient and caregiver. Discussed using [employer]- reached out to Shara from [employer] to discuss with patient further. Call office with consistent lows. Emphasized importance of taking insulin BEFORE meals. STOP DRINKING SUGARY BEVERAGES. Reviewed plate method and importance of pairing insulin requiring foods with non-insulin requiring foods. Follow up in 2 months. 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 Check TSH/T4 today. Continue levothyroxine 150 mcg once daily. Handwritten instructions for levothyroxine administration given: Take levothyroxine on an empty stomach with water at least four hours after eating. Then wait 30-60 minutes before consuming any other food or beverage, especially coffee. Separate levothyroxine from vitamins by at least 4 hours. Stop taking any biotin supplement 4 days prior to having labs drawn. Will recheck thyroid studies in 12 weeks after patient takes levothyroxine properly. Levothyroxine dose is high for her weight- this will likely be difficult to regulate given her significant dementia. (3) Osteopenia: Status: Chronic Plan: Chronic- stability unknown. Get DEXA scan done SATYA. I will interpret and communicate results with Dr. Ceja and patient- consider bisphosphonate use. Take vitamin D3 2,000 iu once daily. I have spent [60] minutes today reviewing labs, records and history. Time includes coordinating care, interpretation of tests, discussion with patient's other health care providers via telephone. This also includes time I spent with the patient for exam, treatment plan and education as well as documenting clinical information. Orders: Orders T4 Free Direct Today E03.8 - Other specified hypothyroidism, E06.3 - Autoimmune thyroiditis Thyroid Stim Hormone (TSH) Today E03.8 - Other specified hypothyroidism, E06.3 - Autoimmune thyroiditis Plan Details Follow Up: 2 Months 08/11/22 4302 <Electronically signed by Delfina Velasquez NP-C> Date Delfina MORGAN Cosigner Signature: Date (if applicable) CC: Dr. Shena Jeffers, DO Shena Jeffers DO Work Phone: Start: 06-07-2022 Plain chest X-ray Dr. Millicent Jeffers Work Phone: Start: 06-04-2022 End: 06-05-2022 Emergency Department Summary Comments: See Note; NOTES: [facility] Records Department [address] [place] [address] Emergency Department Summary 06/04/22 MR#: [id number] Acct: [id number] Name: LIVIER SMALLS Rep #: [id number] : 1945 76 From: Osiel Johnston MD PCP: Dr. Shena Jeffers, DO Status:REG ER Location: ED HPI History of Present Illness Chief Complaint: Cold Sx Narrative Narrative: Patient has been sick for several days with respiratory symptoms. Has a history of COPD on 2 L of oxygen at home. States she had a CT as an outpatient showing pneumonia and she was prescribed antibiotics just today. She presents to the ER because she has been vomiting for several hours, trouble keeping anything down, and starting to feel disoriented and tired. She has been a little short of breath but not severely. She denies any chest pain, abdominal pain, hematemesis, diarrhea, fevers or chills. She has not been tested for COVID or other viral swabs. She is unvaccinated against COVID. History is somewhat limited because she is a little disoriented. 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 Memory loss Osteopenia Pulmonary embolism, bilateral Smoker Home Medications albuterol sulfate 90 mcg/actuation aerosol inhaler (Proventil HFA) 1 puff inhalation ONCE PRN shortness of breath or wheezing 09/08/21 [History Last Taken 10/05/21] amlodipine 5 mg-benazepril 10 mg capsule (Lotrel) 1 cap PO DAILY bp 09/08/21 [History Last Taken 02/06/22] metoprolol succinate 50 mg tablet,extended release 24 hr (Toprol XL) 50 mg PO DAILY heartrate 09/08/21 [History Last Taken 02/06/22] oxybutynin chloride 5 mg tablet 10 mg PO DAILY bladder 09/08/21 [History Last Taken 02/06/22] insulin lispro 100 unit/mL subcutaneous pen (Humalog KwikPen (U-100) Insulin) 13 unit (0.13 mL) subcut TIDAC #1 mL 01/30/22 [Rx Last Taken 02/05/22] insulin lispro 100 unit/mL subcutaneous pen (Humalog KwikPen (U-100) Insulin) See Protocol subcut ACHS #0 mL 01/30/22 [Rx Last Taken Unknown] simvastatin 10 mg tablet 10 mg PO DAILY #30 tabs 01/31/22 [Rx Last Taken 02/06/22] insulin glargine 100 unit/mL subcutaneous solution (Lantus U-100 Insulin) 25 unit (0.25 mL) subcut QPM 30 days #3 mL 02/10/22 [Rx Last Taken 02/05/22] apixaban 5 mg (74 tabs) tablets in a dose pack (Eliquis DVT-PE Treat 30D Start) 5 mg PO BID #74 tabs 02/24/22 [Rx Last Taken Unknown] rivaroxaban 20 mg tablet (Xarelto) 20 mg PO 04/23/22 [History Last Taken Unknown] levothyroxine 150 mcg tablet 150 mcg PO DAILY #30 tabs 04/28/22 [Rx Last Taken Unknown] Allergy/AdvReac Type Severity Reaction Status Date / Time ciprofloxacin [From Cipro] Allergy Intermediate hives Verified 04/23/22 14:35 Sulfa (Sulfonamide Allergy Intermediate hives Verified 04/23/22 14:35 Antibiotics) Family History Father Diabetes Respiratory disease Surgical History S/P insertion of insulin pump Social History household members: significant other and none number of children: 2 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 Smoking Status: Former smoker alcohol intake: current alcohol intake frequency: a few times a month substance use type: does not use ROS ROS ED Constitutional Constitutional ED: Reports fatigue and malaise; Denies chills, fever(s) or headache(s) Eyes Eyes: Denies change in vision or diplopia ENT ENT ED: Denies rhinorrhea or sore throat Cardiovascular Cardiovascular: Denies chest pain or palpitations Respiratory/Chest Respiratory/Chest: Reports cough, dyspnea, dyspnea on exertion and wheezing Gastrointestinal Gastrointestinal: Reports nausea and vomiting; Denies abdominal pain or diarrhea Genitourinary Genitourinary ED: Denies dysuria or hematuria Musculoskeletal Musculoskeletal: Denies back pain or neck pain Integumentary Denies abscess or rash Neurologic Neurologic: Reports confusion; Denies headache(s), paresthesias or weakness Psychiatric Psychiatric: Denies anxiety or suicidal thoughts EXAM Physical Exam Const Vital Signs: 06/04/22 23:01 06/04/22 23:06 06/04/22 23:32 Temperature 98.7 F Temperature Source Temporal Pulse Rate 108 H Respiratory Rate 19 H Respiratory Effort Normal Non-Labored Respiratory Depth Shallow Respiratory Pattern Normal Blood Pressure 128/54 H Blood Pressure Mean 78 Pulse Ox 94 97 Oxygen Delivery Method Room Air Nasal Cannula Nasal Cannula Oxygen Flow Rate (L/min) 2 4 06/04/22 23:33 06/04/22 23:36 06/04/22 23:36 Temperature 98.7 F Temperature Source Oral Pulse Rate 107 H Respiratory Rate 28 H 30 H Respiratory Effort Short of Breath Respiratory Depth Shallow Respiratory Pattern Tachypnea Tachypnea Blood Pressure Blood Pressure Mean Pulse Ox 95 Oxygen Delivery Method Nasal Cannula Oxygen Flow Rate (L/min) 3 06/05/22 00:17 06/05/22 00:24 Temperature 98.7 F 98.7 F Temperature Source Oral Oral Pulse Rate 116 H Respiratory Rate 26 H Respiratory Effort Respiratory Depth Respiratory Pattern Blood Pressure 134/50 H Blood Pressure Mean 78 Pulse Ox 93 Oxygen Delivery Method Nasal Cannula Oxygen Flow Rate (L/min) 3 Positive well nourished and well developed Constitutional Narrative: Appears malaised, no distress. Occasionally starts dry heaving. General Appearance ED: well developed and NAD HEENT Reports moist mucous membranes normocephalic and atraumatic Eyes PERRL and EOMs intact bilaterally Neck full ROM and supple Resp Resp Narrative: Mildly tachypneic, no respiratory distress. Rhonchi bibasilar. Equal breath sounds bilaterally. No JVD. Cardio regular rate, regular rhythm and no murmurs Cardio Narrative: Faint heart sounds Rate: tachycardic GI non-tender and non-distended Auscultation: normoactive bowel sounds Palpation: soft Back/Spine no CVA tenderness General Back: other FROM Extremity normal to inspection General Extremety ED: Negative for edema, pulses abnormal or tenderness General Extremity: Negative for edema or pulses abnormal Neuro CN's II-XII intact bilaterally and no sensory deficits noted Neuro Narrative: Occasionally disoriented to time but sometimes reorients herself. [place] Coma Scale: document GCS findings Spontaneous Obeys Commands Confused 14 Sensorium / Orientation: awake and alert Motor Exam: strength 5/5 throughout Psych mental status grossly normal Skin no rashes or lesions noted and no wounds MDM MDM MDM Narrative Medical decision making narrative: With resting and intermittent vomiting, on her home oxygen patient desats to 86%. We bumped her nasal cannula up to 4 L, and she is satting well at 95-97%. She was given some IV fluids and Zofran while we performed more of a work-up, I did review her CTA of the chest which showed no pulmonary embolus, it showed bibasilar and left lingular consolidations, she had venous Dopplers of her legs as well earlier today according to the records, and they were negative for DVT. Patient does have Eliquis on her list of medications. Other than a leukocytosis and mild chronic CO2 retention, the rest of her work-up here is unremarkable. Her lactic acid is within normal limits. In addition to this she has bilateral pneumonia. With her COPD, disorientation, tachypnea despite neb tx, hypoxemia, leukocytosis, and resting tachycardia,and CURB-65 score of 3, she is at risk for decompensation. IV antibiotics ordered, I recommend that she stay. She is amenable. She is not in respiratory distress and does not require mechanical ventilation at this time, nor intensive care admission in my opinion based on her clinical appearance. She is hemodynamically stable. Lab Data Attestation: I reviewed the patient's lab results. Labs: Laboratory Results - last 24 hr 06/04/22 06/04/22 06/04/22 23:15 23:15 23:15 WBC 16.4 H RBC 4.21 Hgb 11.3 L Hct 36.0 L MCV 85.5 MCH 26.8 L MCHC 31.4 L RDW Std Deviation 46.4 H RDW Coeff of Kristyn 14.9 H Plt Count 519 H MPV 9.9 Immature Gran % (Auto) 0.200 Neut % (Auto) 90.9 H Lymph % (Auto) 3.0 L [place] % (Auto) 4.0 Eos % (Auto) 1.5 Baso % (Auto) 0.4 Absolute Neuts (auto) 15.0 H Absolute Lymphs (auto) 0.49 L Nucleated RBC % 0 Differential Comment SCANNED Sodium 137 Potassium 4.2 Chloride 104 Carbon Dioxide 27.0 Anion Gap 6 BUN 19 H Creatinine 0.83 Estim Creat Clear Calc 44.18 Est GFR (MDRD) Af Amer 86 Est GFR (MDRD) Non-Af 71 BUN/Creatinine Ratio 22.9 H Glucose 171 H Lactic Acid 0.8 Calcium 8.9 Total Bilirubin 0.40 AST 17 ALT 18 Alkaline Phosphatase 126 H Troponin I High Sens 11 Total Protein 7.1 Albumin 2.5 L Globulin 4.6 H Albumin/Globulin Ratio 0.5 L ABG Data Attestation: I personally reviewed and interpreted this ABG as follows: Interpretation: Chronic mild CO2 retention without significant acute hypercapnia or hypoxemia while on oxygen 3 L. ABG results: ABG 06/04/22 23:58 Specimen Type ART Sample Site L Radial pH 7.35 Bicarbonate Actual 24.9 Total CO2 26 Base Excess -1 O2 Saturation 96 ABG pCO2 45.6 H ABG pO2 83 Lilly Test Positive O2 Delivery Device Cannula Liter Flow 3.0 Radiography Diagnostic Testing: Clinical Impression(s) from Imaging Studies Brain CT 06/04/22 23:18 IMPRESSION: No significant interval change. Atrophy and chronic small vessel ischemic changes. No acute intracranial abnormality identified. Electronically Signed: Prakash Reyes MD at 0:07 EDT , Rhythm Strip Rhythm Strip: Sinus Tach Rate: 110 Ectopy: None EKG Initial EKG: Attestation: I personally reviewed and interpreted this EKG as follows: Interpretation: No Acute Injury Pattern and Sinus Tachycardia Discharge Plan Dx/Rx/DC Orders Clinical Impression: Bilateral pneumonia, Hypoxemia, Delirium due to another medical condition, Nausea and vomiting, COPD exacerbation Disposition Disposition: [facility] Care [facility] What to do if you have Problems For any increased pain, shortness of breath, bleeding, nausea or vomiting, chest pain, or any unexpected problems, contact your Primary Care Provider. Call [employer] [facility] ([phone]) or report to the closest Emergency Room. Call 911 if necessary. 06/05/22 0202 <Electronically signed by Osiel Johnston MD> Cosigner Signature (if applicable): CC: Dr. Shena Jeffers DO Signed Shena Jeffers DO Work Phone: Start: 06-04-2022 End: 06-05-2022 Brain/Head without Contrast Comments: See Note; NOTES: [facility] Imaging Services [address] [place] [address] Brain/Head without Contrast MR#: [id number] Acct: [id number] Name: LIVIER SMALLS Rep #: [id number] : 1945 F 76 From: Prakash metcalf MD PCP: Dr. Shena Jeffers DO Status: REG ER Study: Brain/Head without Contrast Date of Exam: 05/24 12/15 Exam# [id number] Ordering Dr: Osiel Johnston MD EXAM: CT HEAD WITHOUT INTRAVENOUS CONTRAST CLINICAL INDICATION: altered mental status TECHNIQUE: Multiple axial images were obtained of the head without intravenous contrast. This CT exam was performed using one or more of the following dose reduction techniques: automated exposure control, adjustment of the mA and/or kV according to patient size, and/or use of iterative reconstruction technique. This report was created using [employer] report generation technology. RADIATION DOSE: Total DLP: 812.98 mGy-cm. COMPARISON: CT of 01/27/2022. FINDINGS: BRAIN AND EXTRA-AXIAL SPACES: Findings of mild age-related atrophy are noted with prominence of cortical sulci, basal cisterns and ventricles. Moderate patchy chronic small vessel ischemic changes are noted within the deep white matter tracts. The basal ganglia are symmetric. No intra- or extra-axial hemorrhage. No intracranial mass or mass effect. Posterior fossa structures are unremarkable. 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 VASCULATURE: Atherosclerotic vascular is present. The middle cerebral arteries are not hyperdense. SINUSES: Unremarkable as visualized. Clear. MASTOID AIR CELLS: Unremarkable. Clear. ORBITS: Previous cataract surgery. CT/Brain/Head without Contrast IMPRESSION: No significant interval change. Atrophy and chronic small vessel ischemic changes. No acute intracranial abnormality identified. Electronically Signed: Prakash Reyes MD at 0:07 EDT , CC: Dr. Osiel Johnston MD; Dr. Shena Jeffers DO Retail Pharmacy Technician: Signed Shena Jeffers DO Work Phone: Start: 06-04-2022 CT of head without contrast Dr. Shena Jeffers Work Phone: Start: 06-04-2022 CT angiography of ch est with contrast Dr. Shena Jeffers Work Phone: Start: 06-04-2022 End: 06-04-2022 CTA Chest W/WO Contrast Comments: See Note; NOTES: [facility] Imaging Services [address] [place] [id number] CTA Chest W/WO Contrast MR#: [id number] Acct: [id number] Name: LIVIER SMALLS Rep #: [id number] : 1945 F 76 From: Di Robles MD PCP: Dr. Shena Jeffers DO Status: REG CLI Study: CTA Chest W/WO Contrast Date of Exam: 06/04/22 Exam# [id number] Ordering Dr: Shena Jeffers DO STUDY: CTA CHEST REASON FOR EXAM: Female, 76 years old. Shortness of breath. Assess for a pulmonary embolus. RADIATION DOSAGE (If Supplied By Facility): CTDIvol = ( 11.70 ) mGy, DLP = ( 219.46 ) mGycm TECHNIQUE: The examination was performed with the intravenous administration of IV 75mL Isovue-370. Post-processing of the angiographic images was performed, with multiplanar reformation and 3D reconstruction. Individualized dose optimization techniques were used for this CT. COMPARISON: 01/21/2022 FINDINGS: There are bilateral emphysematous changes. There is consolidation within the lingula and the lower lobes. There is a small subpleural focus of atelectasis and/or scarring within the right upper lobe. Normal enhancement of the main pulmonary artery and right and left pulmonary arteries. Normal enhancement of the bilateral peripheral pulmonary arteries. There is no demonstrated pulmonary embolism. There is atherosclerotic calcification of the aortic arch. There is no demonstrated aortic dissection. There are calcifications of the coronary arteries. Normal mediastinum. Normal hilar regions. Normal visualized trachea and bronchi. There are bilateral breast implants in place. There are degenerative changes of thoracic spine. The bones are diffusely demineralized. There are stable compression deformities of T6 and T7. Normal visualized upper abdomen. CT/CTA Chest W/WO Contrast IMPRESSION: No demonstrated pulmonary embolism or arterial dissection. Consolidation within the lingula and lower lobes. Emphysema. Atherosclerosis. Electronically Signed: Di Robles MD at 12:53 EDT , CC: Dr. Shena Jeffers DO Retail Pharmacy Technician: Signed Shena Jeffers DO Work Phone: Start: 06-03-2022 End: 06-04-2022 Venous Duplex US - Claduy Extrem Comments: See Note; NOTES: [facility] [address] [place] [address] Venous Duplex US - Claudy Extrem 06/03/22 1505 MR#: [id number] Acct: [id number] Name: LIVIER SMALLS Rep #: [id number] : 1945 76 From: Fracisco Zambrano MD Attending Dr: Dr. Shena Jeffers DO Status: R EG CLI Ordering Dr: Shena Jeffers DO Date: 06/03/22 Location: [facility] Sex: F C Admitted: Reason For Study: Shortness of breath RIGHT LEFT GSV is normal. GSV is normal. CFV is compressible, spontaneous, phasic, POP V is compressible, spontaneous, phasic, competent and demonstrates normal competent and demonstrates normal augmentation. augmentation. FV is compressible, spontaneous, phasic, T/P Trunk is compressible. competent and demonstrates normal PTV is compressible. augmentation. LT PerV is compressible. POP V is compressible, spontaneous, phasic, EIV is noncompressible with minimal venous competent and demonstrates normal flow noted. augmentation. CFV and FV prox are partially noncompressible T/P Trunk is compressible. with venous flow ntoed. PTV is compressible. RT PerV is compressible. Nonvascularized structure noted in the right popliteal fossa that measures 1.06 x 3.13 x 4.36 cm. Procedure This is a venous duplex using B-mode, color flow and spectral Doppler. Exam performed in department. Compared to 02/24/2022. A preliminary report was called and/or faxed to [facility]. VL/Venous Duplex US - Claudy Extrem Interpretation Summary There is no evidence of right lower extremity deep vein thrombosis. 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 Clinical correlation would be appropriate. Deep venous thrombosis left external iliac vein with either acute or chronic disease involving the left common femoral and femoral veins. Patent and compressible bilateral great saphenous veins Refer to the previous examination of February 24, 2022 demonstrating extensive deep deep venous thrombosis involving the left lower extremity _ Ordering Physician: Shena Jeffers Referring Physician: Shena Jeffers M.D. Performed By: Jeanine Lockhart RVT 06/04/22 05 Date Fracisco Zambrano MD CC: Dr. Shena Jeffers, DO Date Dictated: 06/03/22 1505 Date Transcribed: 06/04/22 0523 Retail Pharmacy Technician: Signed Shena Jeffers DO Work Phone: Start: 06-03-2022 End: 06-03-2022 Chest PA and Lateral Comments: See Note; NOTES: [facility] [address] [place] [address] Chest PA and Lateral MR#: [id number] Acct: [id number] Name: LIVIER SMALLS Rep #: [id number] : 1945 F 76 From: Ayden urbina MD PCP: Dr. Shena Jeffers DO Status: DEP AMB Study: Chest PA and Lateral Date of Exam: 06/03/22 Exam# [id number] Ordering Dr: Shena Jeffers DO STUDY: X-RAY CHEST REASON FOR EXAM: Female, 76 years old. SOB -- STAT TECHNIQUE: Single AP portable view of the chest. COMPARISON: Comparison is made with prior study 2021. FINDINGS: Hyperinflation. Stable bilateral breast prostheses with calcification of the rim of the prostheses. Increased markings at the lung bases suggestive of bibasilar atelectasis. Stable blunting of both costophrenic angles. Mild degree of vascular congestion. Normal size heart. Normal mediastinum and uli. Normal visualized pulmonary arteries. Normal visualized aortic arch and descending thoracic aorta. Normal visualized thoracic spine. Normal visualized ribs, clavicles, and shoulders. There is no demonstrated abnormality of the visualized soft tissue structures of the upper abdomen. RAD/Chest PA and Lateral IMPRESSION: Hyperinflation with mild increased markings at the lung bases just above the linear atelectasis. Mild degree of vascular congestion. Electronically Signed: Ayden Sifuentes MD at 11:03 EDT , CC: Dr. Shena Jeffers DO Retail Pharmacy Technician: Signed Shena Jeffers DO Work Phone: Start: 06-03-2022 Plain chest X-ray Dr. Millicent Jeffers Work Phone: Start: 05-26-2022 End: 05-26-2022 Endocrinology Visit Report Comments: See Note; NOTES: [facility] [facility] [place], [place] [address] OFFICE VISIT Date of Service: 05/26/22 MR#: [id number] Acct: [id number] Name: LIVIER SMALLS Rep #: [id number] : 1945 Provider: EDDIE handy Age/Sex: 76/F [place] [facility] [place]: Signed Intake Vital Signs 05/26/22 14:13 Height 5 ft 2.5 in Weight: 142 lb 8 oz BMI 25.6 BP 142/70 H Blood Pressure Location Lt brachial Position Sitting Respiration 18 Pulse 96 Pulse Source Monitor Temp 97.0 F L Temp Source Temporal Pulse Oximetry (%) 93 Oxygen Delivery Method room air Intake Visit Reasons: 1 M FU Chief Complaint: f/u diabetes Attendant Campground Required: No Accompanied by: Self Is patient in pain?: No Allergies ciprofloxacin [From Cipro] Allergy (Intermediate, Verified 04/23/22 14:35) hives Sulfa (Sulfonamide Antibiotics) Allergy (Intermediate, Verified 04/23/22 14:35) hives Nurse's Note: Pt had A1C 04/23/22 8.2% 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 Memory loss Osteopenia Pulmonary embolism, bilateral Smoker Surgical History S/P insertion of insulin pump Family History Father Diabetes Respiratory disease Social History household members: significant other and none number of children: 2 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 Pt initially seen one month ago. A1C at that time was 8.2%. Currently taking Lantus 6 u in AM and Humalog 10 u TIDCM 4 u with snacks. Her pool table operator/senior product integrity engineer Zofia states that if her blood sugar is normal, he will not give her her meal time insulin. Blood sugar log brought in for review- He is checking her blood sugar 6+ times per day. He will wake her up in the middle of the night once to check her blood sugar. 50% of the time she will have decent blood sugars at bedtime and in the middle of the night, then wake up 300+. I asked if there was a chance if she was getting up and eating in the middle of the night and she and Don denied. She is checking her blood sugar 6+ times per day. She uses blood sugar reading to adjust insulin doses. She is taking 4+ injections of insulin daily. She is at risk of hypoglycemia. Regarding her hypothyroidism- TSH was suppressed and T4 was elevated on 04/23/22, levothyroxine dose was decreased from 200 mcg once daily to 150 mcg once daily. She started taking this approximately 2 weeks ago. She reports compliance with medication regimen. She denies any signs/symptoms of hyper/hypothyroidism. She has not yet had her repeat DEXA scan. States that no one has called her to schedule, however, Don states that she has a habit of letting her phone . There is a possibility she was called but was unable to be reached. Vitamin D level on 04/23/22/ was 21.1. She is not currently taking any vitamin D supplementation. Denies any acute concerns. Exam Const General: cooperative, healthy appearing, comfortable and no acute distress Nutritional Appearance: overweight Orientation: alert, awake and oriented x3 Limitations: mental status not altered Other: Hx of dementia HENFL Head: normal to inspection Ears: hearing grossly normal bilaterally Eyes General: appearance normal, both eyes and all related structures Alignment and Position: alignment normal Eyelids: eyelids normal Neck Neck: normal visual inspection and full ROM Neck mass: No Carotids: normal carotid upstroke Chest Chest palpation inspection: normal inspection of the chest Resp Effort Inspection: normal respiratory effort, able to speak in complete sentences, symmetric chest movement, no audible wheezes and no cough Auscultation: Bilateral: Clear to Auscultation Cardio Rate: regular rate Rhythm: regular rhythm Heart Sounds: S1 normal and S2 normal Bruits: no carotid bruits GI Inspection: normal to inspection Musc Cervical Spine: loss of normal cervical lordosis Thoracic/Lumbar Spine: thoracic and lumbar spine normal to inspection Skin General: no rashes or lesions noted Lesions: no lesions Rashes: no rashes Trauma: no lacerations or abrasions Wounds: no wounds Neuro General: patient alert, patient awake and patient oriented x3 Cognition: normal cognition Speech: speech normal Gait: normal gait Extrem General: normal to inspection, full ROM and pedal edema on the left (recent hx of DVT) Location: of the leg Psych Appearance: grossly normal Mental Status: mental status grossly normal Mood: congruent mood Affect: normal affect Speech and Movement: speech and movement normal Attitude: cooperative Thought Process: normal Thought Content: normal Judgment: limited Results POC A1C POC A1C 8.1 % Last Edit by Carolyn Hall on 05/26/22 14:36 Coding Level of Care Code Off vis,est,level 4 Diagnoses Diabetes E11.9 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 I reviewed with the patient the risk of developing and worsening of diabetes complications including retinopathy, neuropathy, nephropathy, heart attack, stroke, amputation, and sudden . Diabetes education provided. Continue Lantus 6 u AM. Continue humalog 10 u TIDCM, 4 u with snacks +SSI. Emphsized importance of taking humalog despite good blood sugar reading. Will pursue CGM. This will help to better evaluate if she potentially has Missy Phenomenon. CGM with alarms are important for her safety. Follow up in 2 months. 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 Continue levothyroxine 150 mcg once daily. Will recheck TSH and T4 in 6 weeks. Will continue to titrate dose if indicated. Take levothyroxine on an empty stomach with water at least four hours after eating. Then wait 30-60 minutes before consuming any other food or beverage, especially coffee. Separate levothyroxine from vitamins by at least 4 hours. Stop taking any biotin supplement 4 days prior to having labs drawn. (3) Osteopenia: Status: Chronic Plan: Chronic- stability unknown. Start taking 2,000 iu Vitamin D3 OTC once daily. Will reorder DEXA scan. Will discuss results with Dr. Ceja to decide if intervention is indicated. I have spent [36] minutes today reviewing labs, records and history. Time includes coordinating care, interpretation of tests, discussion with patient's other health care providers via telephone. This also includes time I spent with the patient for exam, treatment plan and education as well as documenting clinical information. Orders: Orders Thyroid Stim Hormone (TSH) Today E03.8 - Other specified hypothyroidism, E06.3 - Autoimmune thyroiditis T4 Free Direct Today E03.8 - Other specified hypothyroidism, E06.3 - Autoimmune thyroiditis Plan Details Follow Up: 2 Months 05/26/22 5377 <Electronically signed by Delfina MORGAN> Date Delfina MORGAN Cosigner Signature: Date (if applicable) CC: Dr. Shena Jeffers, DO Shena Jeffers DO Work Phone: Start: 04-23-2022 End: 04-26-2022 Endocrinology Visit Report Comments: See Note; NOTES: [facility] [address] [place], [place] [address]. [address] [place] [address] OFFICE VISIT Date of Service: 04/23/22 MR#: [id number] Acct: [id number] Name: LIVIER SMALLS Rep #: [id number] : 1945 Provider: Jax Wong Age/Sex: 76/F [place] [facility] [place]: Signed Intake Vital Signs 02/07/22 12:46 02/24/22 14:24 04/23/22 14:29 Height 5 ft 4.5 in 5 ft 4 in 5 ft 2.5 in Weight: 149 lb 147 lb BMI 25.5 26.4 BP 124/57 H 140/70 H Blood Pressure Location Lt brachial Position Sitting Respiration 18 20 H Pulse 110 H 110 H Pulse Source Monitor Temp 98 F 96.4 F L Temp Source Temporal Temporal Pulse Oximetry (%) 99 98 Oxygen Delivery Method room air Intake Visit Reasons: OSTEO/DM/THYROID-NEEDS NPP Chief Complaint: nausea and vomiting Attendant Campground Required: No Accompanied by: Friend Is patient in pain?: No Allergies ciprofloxacin [From Cipro] Allergy (Intermediate, Verified 04/23/22 14:35) hives Sulfa (Sulfonamide Antibiotics) Allergy (Intermediate, Verified 04/23/22 14:35) hives 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 She moved here from [place] about one year ago in order to make contact with a man she met on line. His name is Zofia. She has dementia and this has worsened since her move here. Zofia reports that she had DKA several times due to not being able to use her insulin pump. She has been changed to basal bolus and he is now in charge of her insulin dosing. She has moved in with him because she is no longer able to be independent. She answers no when I ask her if she has any family. Zofia tells me that she has 3 sons. The youngest son has power of assistant prosecuting attorney but he has not made any contact with Livier for over 3 weeks. I ask her if she would like me to contact him and she says no. She states that she would like for me to interact with Zofia regarding her insulin instructions and other health issues. She has type 1 diabetes and was seeing an 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 [place]. She was on an insulin pump. She is currently taking Lantus at , but if her blood sugar is below 150 she doesn't take the insulin. She is taking Novolog 13 units plus an aggressive sliding scale. This frequently causes her to go low. She states a surgeon gave her the sliding scale. A1C is January was 11.7% and today it is 8.2% She has longstanding history of hypothyroidism. She has diagnosis of osteoporosis and was on Prolia in [place]. Last DEXA was July, T-Scores: LS spine -0.9 femoral neck -2.0 total hip -1.5 FRAX 14% and 3.5% She states she has not had any fractures. She is not able to tell me if she was on any other medications. Current Symptoms: denies heartburn or abdominal pain Osteoporosis/Bone Results: Calcium Level 8.8 mg/dL (8.5-10.1) Albumin 2.9 g/dL (3.2-5.0) L Phosphorus Level 2.9 mg/dL (2.5-4.9) Vitamin D 25-Hydroxy 21.1 ng/mL ROS Const Constitutional: No fatigue, fever(s), headache(s), decreased energy, weakness or weight change Eyes Eyes: No blurry vision or change in vision ENT ENT: No abnormal hearing, headache(s), difficulty swallowing or sore throat Cardio Cardiology: No chest pain at rest, chest pain with exertion, leg pain with exertion, irregular heart rhythm or palpitations Musc Musculoskeletal: No abnormal gait, joint pain, back pain or leg pain with exertion Neuro Neurology: Positive for memory loss; No abnormal gait, abnormal hearing, weakness or headache(s) Psych Psychiatric: Positive for memory loss Lawrence/Lymp Hematologic/Lymphatic: No easy bruising Resp Respiratory: No cough or shortness of breath Gastro GI: No abdominal pain, heartburn or difficulty swallowing Genitourinary-Female: No difficulty urinating Endo Endocrine: No fatigue or weight change Exam Const General: cooperative, healthy appearing, comfortable, no acute distress, well developed and not cushingoid Nutritional Appearance: well nourished Orientation: alert and awake [facility] Head: normal to inspection Ears: hearing grossly normal bilaterally Nose: external nose normal Mouth: oral mucosae normal Eyes General: appearance normal, both eyes and all related structures Alignment and Position: alignment normal Periorbital: periorbital findings normal Eyelids: eyelids normal Conjunctivae: conjunctivae normal Neck Neck: normal visual inspection Neck mass: No Thyroid: thyroid normal Lymphatic: no lymphadenopathy noted Chest Chest palpation inspection: normal inspection of the chest Resp Effort Inspection: normal respiratory effort, able to speak in complete sentences, symmetric chest movement, no audible wheezes and no cough Auscultation: Bilateral: Clear to Auscultation Cardio Rate: regular rate Rhythm: regular rhythm GI Inspection: normal to inspection Skin General: no rashes or lesions noted Neuro General: patient alert and patient awake Cranial Nerves: CN's II-XI intact bilaterally Cognition: abnormal cognition (poor short term memory) Speech: speech normal Gait: normal gait Motor: muscle tone normal throughout Extrem General: no edema Psych Appearance: grossly normal Mood: congruent mood Affect: normal affect Speech and Movement: speech and movement normal Attitude: cooperative Thought Process: normal Judgment: poor Assessment and Plan Assessment and Plan (1) Diabetes: Status: Acute Plan: Diabetes education provided. Lantus 6 units sq q am, do not hold or change dose Log 10 units with meals, 4 units with snacks and SSI 200 +1; 230 +2; 260 +3; 300 +4 Don will be in control of her insulin and will send a log in 2 weeks. Follow up in 2 months. (2) Osteopenia: Status: Acute Plan: Repeat DEXA to see where we are. She may have rebound bone loss due to stopping Prolia. 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 Then wait 30-60 minutes before consuming any other food or beverage, especially coffee. Separate levothyroxine from vitamins by at least 4 hours. Stop taking any biotin supplement 4 days prior to having labs drawn. I have spent [65] minutes today reviewing labs, records and history. Time includes coordinating care, interpretation of tests, discussion with patient's other health care providers via telephone. This also includes time I spent with the patient for exam, treatment plan and education as well as documenting clinical information. Orders: Orders Dexa Bone Density Study 04/23/22 E03.8 - Other specified hypothyroidism, E06.3 - Autoimmune thyroiditis, E11.9 - Type 2 diabetes mellitus without complications, M81.0 - Age-related osteoporosis without current pathological fracture, M85.80 - Other specified disorders of bone density and structure, unspecified site Vitamin D,25 Hydroxy 04/23/22 E03.8 - Other specified hypothyroidism, E06.3 - Autoimmune thyroiditis, E11.9 - Type 2 diabetes mellitus without complications, E55.9 - Vitamin D deficiency, unspecified, M85.80 - Other specified disorders of bone density and structure, unspecified site Comprehensive Metabolic Profil 04/23/22 E03.8 - Other specified hypothyroidism, E06.3 - Autoimmune thyroiditis, E11.9 - Type 2 diabetes mellitus without complications, M85.80 - Other specified disorders of bone density and structure, unspecified site T4 Free Direct 04/23/22 E03.8 - Other specified hypothyroidism, E06.3 - Autoimmune thyroiditis, E11.9 - Type 2 diabetes mellitus without complications, M85.80 - Other specified disorders of bone density and structure, unspecified site Thyroid Stim Hormone (TSH) 04/23/22 E03.8 - Other specified hypothyroidism, E06.3 - Autoimmune thyroiditis, E11.9 - Type 2 diabetes mellitus without complications, M85.80 - Other specified disorders of bone density and structure, unspecified site Coding Level of Care Code Off vis,new,level 5 Diagnoses Diabetes E11.9 Osteopenia M85.80 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 [address] [place] [address] Emergency Department Summary 02/24/22 MR#: [id number] Acct: [id number] Name: LIVIER SMALLS Rep #: [id number] : 1945 76 From: Osiel Johnston MD PCP: Dr. Shena Jeffers DO Status:REG ER Location: ED HPI History of Present Illness Chief Complaint: Lower Extremity Injury Informant: patient Onset/Context/Timing Onset: Days (5) Context: Gradual Onset Timing: Continuous Quality of Pain: - (Swollen) Location: Left lower extremity to the thigh Current Severity: Severe Maximum Severity: Severe Worsened by: Nothing Relieved by: Nothing Narrative Narrative: patient presents with her , he states that her leg is usually asymmetrically swollen on the left, but has definitely been worse in the past 5 days or so without any obvious reason. She ran out of her Xarelto months ago, sent a message to her doctor but has not heard back and is not on the medication anymore because of this. She states she was on it because of a pulmonary embolus. She has no idea how long ago she was diagnosed with this, the states that she has some dementia and is forgetful, he provides much of the history, states he met her several years ago and when he met her she was on the medication. No recent long travel or immobilization/hospitaliza tion. She denies any chest pain, shortness of breath, palpitations, syncopal episodes, falls, injuries to the leg, or pain in the leg that is swollen. PFSH PFSH Medical History COPD (chronic obstructive pulmonary disease) Diabetes Emphysema lung HLD (hyperlipidemia) HTN (hypertension) Hypothyroidism Hypothyroidism Memory loss Osteopenia Pulmonary embolism, bilateral Smoker Home Medications albuterol sulfate 90 mcg/actuation aerosol inhaler 1 puff INHALATION ONCE PRN 09/08/21 [History Last Taken 10/05/21] amlodipine 5 mg-benazepril 10 mg capsule 1 cap PO DAILY 09/08/21 [History Last Taken 02/06/22] metoprolol succinate 50 mg tablet,extended release 24 hr 50 mg PO DAILY 09/08/21 [History Last Taken 02/06/22] oxybutynin chloride 5 mg tablet 10 mg PO DAILY tab 09/08/21 [History Last Taken 02/06/22] insulin lispro [Humalog KwikPen Insulin] 13 unit SUBCUT TIDAC #1 ml 01/30/22 [Rx Last Taken 02/05/22] insulin lispro [Humalog KwikPen Insulin] See Protocol SUBCUT ACHS #0 ml 01/30/22 [Rx Last Taken Unknown] paroxetine mesylate 20 mg PO DAILY #30 tab 01/30/22 [Rx Last Taken 02/06/22] potassium chloride [Klor-Con M20] 40 meq PO DAILYCM #6 tab 01/30/22 [Rx Last Taken 02/06/22] potassium, sodium phosphates 1 packet PO TID #6 ea 01/30/22 [Rx Last Taken 02/06/22] simvastatin 10 mg PO DAILY #30 tab 01/31/22 [Rx Last Taken 02/06/22] Lantus U-100 Insulin 25 unit SUBCUT QPM 30 Days #3 ml 02/10/22 [Rx Last Taken 02/05/22] levothyroxine 200 mcg PO DAILY #30 cap 02/10/22 [Rx Last Taken Unknown] apixaban [Eliquis DVT-PE Treat 30D Start] 5 mg PO BID #74 tab 02/24/22 [Rx Last Taken Unknown] Allergy/AdvReac Type Severity Reaction Status Date / Time ciprofloxacin [From Cipro] Allergy Intermediate hives Verified 02/24/22 14:28 Sulfa (Sulfonamide Allergy Intermediate hives Verified 02/24/22 14:28 Antibiotics) Family History Father Diabetes Respiratory disease Surgical History S/P insertion of insulin pump Social History household members: significant other and none number of children: 2 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 Smoking Status: Current every day smoker tobacco type: cigarettes alcohol intake: current alcohol intake frequency: a few times a month substance use type: does not use ROS ROS ED Constitutional Constitutional ED: Denies chills or fever(s) Cardiovascular Cardiovascular: Reports pedal edema; Denies chest pain, chest pain at rest, palpitations, pounding heartbeat or racing heartbeat Respiratory/Chest Respiratory/Chest: Denies cough or dyspnea Musculoskeletal Musculoskeletal: Reports as per HPI; Denies extremity pain or neck pain Integumentary Denies Abrasions, rash or wounds Neurologic Neurologic: Denies paresthesias or weakness EXAM Physical Exam Const Vital Signs: 02/24/22 14:24 Temperature 98 F Temperature Source Temporal Pulse Rate 110 H Respiratory Rate 18 Blood Pressure 124/57 H Blood Pressure Mean 79 Pulse Ox 99 Oxygen Delivery Method Room Air Positive well nourished and well developed General Appearance ED: well developed and NAD Neck full ROM and supple Resp normal respiratory effort and normal air movement Cardio regular rate and regular rhythm Rate: Negative for tachycardic Back/Spine normal ROM and normal to inspection Extremity Extremity Narrative: Edematous nontender left lower extremity. The right is normal. Difficult to feel pulses, but cap refill is 2 seconds or less in all toes bilaterally and symmetrically. Feet are warm. All compartments are soft and nontender, nondistended. No color changes to suggest cellulitis or cyanosis. Neuro oriented x3, no focal motor deficits and no sensory deficits noted Sensorium / Orientation: alert Psych mental status grossly normal and thought process normal Skin no wounds Rashes: no rashes MDM MDM MDM Narrative Medical decision making narrative: Ultrasound of the left lower extremity was obtained, results are as below, there is extensive DVT present. She does not have any symptoms of a pulmonary embolus, she is mildly tachycardic but her vital signs are otherwise stable and she has no dyspnea with exertion or other symptoms with exertion. It would be reasonable to start her on one of the new DOAC such as Eliquis, she has been on this and Xarelto in the past but states they were expensive. We talked about alternatives such as Coumadin, but she needs to be bridged with Lovenox, and levels checked often, after discussing with her significant other she decides to try Eliquis which she did try in the past and she thinks her insurance made her pay less than the Xarelto. Gave her a dose here and a starter prescription advised to follow-up with her doctor for further discussions and reevaluation. We discussed reasons to return she is comfortable with that plan. Radiography Diagnostic Testing: Clinical Impression(s) from Imaging Studies Venous Doppler Study 02/24/22 14:54 Interpretation Summary Extensive deep venous thrombosis noted in the distal left external iliac, common femoral, femoral, popliteal, tibioperoneal trunk, gastrocnemius, posterior tibial, peroneal, and soleus veins Superficial thrombophlebitis left great saphenous vein from the junction to the proximal thigh Patent and compressible right common femoral vein _ Ordering Physician: Osiel Johnston Referring Physician: Shena Jeffers M.D. Performed By: Jeanine Lockhart RVT Discharge Plan Triage Chief Complaint: Lower Extremity Injury ED Provider: Osiel Johnston Dx/Rx/DC Orders Clinical Impression: Acute deep vein thrombosis (DVT) of left lower extremity Instructions: DVT Dc Prescriptions: New Eliquis DVT-PE Treat 30D Start 5 mg (74 tabs) tablets,dose pack 5 mg PO BID Qty: 74 RF: 0 No Action amlodipine-benazepril [Lotrel] 5-10 mg capsule 1 cap PO DAILY RF: 0 oxybutynin chloride 5 mg tablet 10 mg PO DAILY RF: 0 metoprolol succinate [Toprol XL] 50 mg tablet extended release 24 hr 50 mg PO DAILY RF: 0 albuterol sulfate [Proventil HFA] 90 mcg/actuation HFA aerosol inhaler 1 puff inhalation ONCE PRN (Reason: shortness of breath or wheezing) RF: 0 potassium, sodium phosphates 280-160-250 mg Powder In Packet 1 packet PO TID Qty: 6 RF: 0 potassium chloride [Klor-Con M20] 20 mEq Tablet,Er Particles/Crystals 40 meq PO DAILYCM Qty: 6 RF: 0 insulin lispro [Humalog KwikPen Insulin] 100 unit/mL Insulin Pen See Protocol unit subcut ACHS Qty: 0 RF: 0 insulin lispro [Humalog KwikPen Insulin] 100 unit/mL Insulin Pen 13 unit subcut TIDAC Qty: 1 RF: 5 paroxetine mesylate 20 mg tablet 20 mg PO DAILY Qty: 30 RF: 0 simvastatin 10 mg tablet 10 mg PO DAILY Qty: 30 RF: 0 Lantus U-100 Insulin 100 unit/mL solution 25 unit subcut QPM 30 Days Qty: 3 RF: 5 levothyroxine 200 mcg capsule 200 mcg PO DAILY Qty: 30 RF: 3 Primary Care Provider: Shena Jeffers Referrals: Shena Jeffers DO [Primary Care Provider] - (Call for appointment to be seen within the next 1-2 weeks) Disposition Disposition: Home, Self Care What to do if you have Problems For any increased pain, shortness of breath, bleeding, nausea or vomiting, chest pain, or any unexpected problems, contact your Primary Care Provider. Call [facility] ([phone]) or report to the closest Emergency Room. Call 911 if necessary. 02/24/22 1605 <Electronically signed by Osiel Johnston MD> Cosigner Signature (if applicable): CC: Dr. Shena Jeffers DO Signed Shena Jeffers DO Work Phone: Start: 02-24-2022 End: 02-24-2022 Venous Duplex US, Unilateral Comments: See Note; NOTES: [facility] [address] [place] [address] Venous Duplex US, Unilateral 02/24/22 1505 MR#: [id number] Acct: [id number] Name: LIVIER SMALLS Lan Rep #: [id number] : 1945 76 From: Fracisco Zambrano MD Attending Dr: Status: REG ER Ordering Dr: Osiel Johnston MD Date: 02/24/22 Location: ED Sex: F C Admitted: Reason For Study: Swelling RIGHT LEFT CFV is compressible, spontaneous, phasic, Acute deep vein thrombosis is noted in the competent and demonstrates normal left EIV distal, CFV, FV, PopV, T/P Trunk, augmentation. GastrocV, PTV, PeroV, and SoleusV. Procedure Acute superficial vein thrombosis is noted This is a venous duplex using B-mode, color in the left GSV from junction to prox thigh. flow and spectral Doppler. Exam performed portable in ED. A preliminary report was called and/or faxed to ED. VL/Venous Duplex US, Unilateral Interpretation Summary Extensive deep venous thrombosis noted in the distal left external iliac, common femoral, femoral, popliteal, tibioperoneal trunk, gastrocnemius, posterior tibial, peroneal, and soleus veins Superficial thrombophlebitis left great saphenous vein from the junction to the proximal thigh Patent and compressible right common femoral vein _ Ordering Physician: Osiel Johnston Referring Physician: Shena Jeffers M.D. Performed By: Jeanine Lockhart RVT 02/24/22 5631 Date Fracisco Zambrano MD CC: Dr. Osiel Johnston MD; Dr. Shena Jeffers DO Date Dictated: 02/24/22 1505 Date Transcribed: 02/24/22 239 Retail Pharmacy Technician: Signed Shena Jeffers DO Work Phone: Start: 02-06-2022 End: 02-06-[address] Shena Jeffers Work Phone: Start: 01-28-2022 Bacteria identified in Blood by Culture Dr. Shena Jeffers Work Phone: Start: 01-27-2022 CT of head without contrast Dr. Shena Jeffers Work Phone: Start: 01-27-2022 End: 01-27-2022 Chest 1 View (Portable) Comments: See Note; NOTES: [facility] [address] [place] [id number] Chest 1 View (Portable) MR#: [id number] Acct: [id number] Name: LIVIER SMALLS Rep #: [id number] : 1945 F 76 From: Sree moraes MD PCP: Dr. Shena Jeffers DO Status: REG ER Study: Chest 1 View (Portable) Date of Exam: 01/27/22 Exam# [id number] Ordering Dr: Katerina Barraza DO INDICATION: weakness EXAMINATION/TECHNIQUE: X-RAY - XR Chest 1 View COMPARISON: 01/20/2022 FINDINGS: LINES/DEVICES: None. LUNGS: No consolidation, edema or effusion. No pneumothorax. MEDIASTINUM AND CARDIOVASCULAR STRUCTURES: Atherosclerotic calcifications and cardiomediastinal contours, similar compared to the prior. BONES AND SOFT TISSUES: Bilateral partially calcified breast prostheses again seen. Degenerative changes visualized spine. No acute osseous abnormality. RAD/Chest 1 View (Portable) IMPRESSION: No acute cardiopulmonary disease. Electronically Signed: Sree Cuellar MD at 22:03 EDT , CC: Dr. Ktaerina Barraza DO; Dr. Shena Jeffers DO Retail Pharmacy Technician: Signed Shena Jeffers DO Work Phone: Start: 01-27-2022 Plain chest X-ray Dr. Millicent Jeffers Work Phone: Start: 01-21-2022 CT angiography of ch est with contrast Dr. Shena Jeffers Work Phone: Start: 01-21-2022 End: 01-21-2022 CTA Chest W/WO Contrast Comments: See Note; NOTES: [facility] [address] [place] [address] CTA Chest W/WO Contrast MR#: [id number] Acct: [id number] Name: LIVIER SMALLS Rep #: [id number] : 1945 F 76 From: Pelon Anthony PCP: Dr. Shena Jeffers DO Status: REG CLI Study: CTA Chest W/WO Contrast Date of Exam: 01/21/22 Exam# [id number] Ordering Dr: Shena Jeffers DO EXAM: CT ANGIOGRAPHY CHEST WITHOUT AND WITH INTRAVENOUS CONTRAST CLINICAL INDICATION: ELEVATED D-DIMER TECHNIQUE: Helically acquired angiography images were obtained of the chest without and with intravenous contrast. This CT exam was performed using one or more of the following dose reduction techniques: automated exposure control, adjustment of the mA and/or kV according to patient size, and/or use of iterative reconstruction technique. This report was created using Zen[employer] report generation technology. MIP reconstructed images were created and reviewed. CONTRAST: IV 100mL Isovue-370 COMPARISON: 10/06/2021 FINDINGS: PULMONARY ARTERIES: No demonstrated pulmonary embolism or arterial dissection. AORTA: There is atherosclerotic calcification of the aortic arch with tortuosity and elongation of the aortic arch and descending thoracic aorta. Normal in caliber. No evidence of dissection. GREAT VESSELS OF AORTIC ARCH: Unremarkable. Normal in caliber. No evidence of dissection. LUNGS AND PLEURAL SPACES: There are scattered blebs and bullae. This can be seen in pulmonary emphysema. Right lower lobe atelectasis. No mass. No pleural effusion or thickening. No pneumothorax. HEART: There are calcifications of the coronary arteries. No pericardial effusion. No signs of right heart strain, ratio of right ventricle to left ventricle measures less than 1. MEDIASTINUM: Unremarkable. No mediastinal or hilar adenopathy. Esophagus is unremarkable. No hiatal hernia. THYROID: Unremarkable. No thyroid lesions. BONES/JOINTS: There are new T5-T6 compression deformities of the thoracic spine. There are compression deformities of the spine. These are age-indeterminate. MRI could further evaluate if of concern. There are degenerative changes of the shoulders. There are multi-level degenerative changes of the thoracic spine. No suspicious lytic or blastic abnormality. SOFT TISSUES: There are bilateral breast implants. CT/CTA Chest W/WO Contrast IMPRESSION: 1. There are new T5-T6 compression deformities of the thoracic spine. There are compression deformities of the spine. These are age-indeterminate. MRI could further evaluate if of concern. 2. No demonstrated pulmonary embolism or arterial dissection. Electronically Signed: Pelon Hebert MD at 17:45 EDT Reading Location ID and State: [address] [place] [address] , Service support , CC: Dr. Shena Jeffers DO Retail Pharmacy Technician: Signed Shena Jeffers DO Work Phone: Start: 01-20-2022 End: 01-20-2022 Chest PA and Lateral Comments: See Note; NOTES: [facility] [address] [place] [address] Chest PA and Lateral MR#: [id number] Acct: [id number] Name: LIVIER SMALLS Rep #: [id number] : 1945 F 76 From: Ayden urbina MD PCP: Dr. Shena Jeffers, Status: DEP AMB Study: Chest PA and Lateral Date of Exam: 01/20/22 Exam# [id number] Ordering Dr: Maritza Levine SECURITY RISK ANALYST SECURITY RISK ANALYST-C STUDY: X-RAY CHEST REASON FOR EXAM: Female, 76 years old. SOB` -- STAT TECHNIQUE: PA and lateral views of the chest. COMPARISON: Comparison is made with prior study dated 11/17/2001. FINDINGS: Rim-like calcification of the bilateral breast implants. There is hyperinflation of the lungs consistent with chronic obstructive lung disease (COPD). There is no demonstrated pleural abnormality. Normal size heart. Normal mediastinum and uli. Normal visualized pulmonary arteries. There is atherosclerotic calcification of the aortic arch with tortuosity. There are diffuse degenerative changes of the visualized thoracic spine. Normal visualized ribs, clavicles, and shoulders. There is no demonstrated abnormality of the visualized soft tissue structures of the upper abdomen. RAD/Chest PA and Lateral IMPRESSION: Hyperinflation. No acute abnormality is seen. Electronically Signed: Ayden Sifuentes MD at 14:50 EDT Reading Location ID and State: [facility] / [place] , Service support , CC: EDDIE Levine; Dr. Shena Jeffers DO Retail Pharmacy Technician: Signed Maritza Levine Work Phone: Start: 01-20-2022 Plain chest X-ray Dr. Millicent Jeffers Work Phone: Start: 12-01-2021 End: 12-01-2021 Brain/Head without Contrast Comments: See Note; NOTES: [facility] [address] [place] [address] Brain/Head without Contrast MR#: [id number] Acct: [id number] Name: LIVIER SMALLS Rep #: [id number] : 1945 F 76 From: Ayden urbina MD PCP: Dr. Shena Jeffers, Status: PRE ER Study: Brain/Head without Contrast Date of Exam: 06/14 Exam# [id number] Ordering Dr: Gaby Saravia MD STUDY: CT BRAIN WITHOUT CONTRAST REASON FOR EXAM: Female, 76 years old. Fall RADIATION DOSAGE (If Supplied By Facility): CTDIvol = ( 44.99 ) mGy, DLP = ( 829.85 ) mGycm TECHNIQUE: Transaxial CT imaging of the brain was performed without administration of intravenous contrast material. Individualized dose optimization techniques were used for this CT. COMPARISON: Comparison is made with prior study dated 11/17/2021. FINDINGS: Normal soft tissue structures. 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 There is mild cerebral atrophy with widening of the extra-axial spaces and ventricular dilatation. There are areas of decreased attenuation within the white matter tracts of the supratentorial brain, consistent with microvascular disease changes. Normal basal ganglia and thalami. Normal brainstem. Normal cerebellum. There is no intracranial hemorrhage. There are no findings of an acute ischemic infarction. Atherosclerotic calcification of the vertebral arteries and cavernous portions of the internal carotid arteries bilaterally. Normal visualized paranasal sinuses. CT/Brain/Head without Contrast IMPRESSION: Chronic involutional changes of the brain. Electronically Signed: Ayden Sifuentes MD at 11:19 EST Reading Location ID and State: [address] [place] [address] , Service support , CC: Dr. Gaby Saravia MD; Dr. Shena Jeffers DO Retail Pharmacy Technician: Signed Shena Jeffers DO Work Phone: Start: 12-01-2021 CT of head without contrast Dr. Shena Jeffers Work Phone: Start: 12-01-2021 End: 12-01-2021 Emergency Department Summary Comments: See Note; NOTES: [facility] [address] [place] [address] Emergency Department Summary 12/01/21 MR#: [id number] Acct: [id number] Name: LIVIER SMALLS Lan Rep #: [id number] : 1945 76 From: Gaby Saravia MD PCP: Dr. Shena Jeffers, DO Status:DEP ER Location: ED HPI History of Present Illness Chief Complaint: Laceration Informant: patient and spouse/S.O. Onset/Context/Timing Onset: Yesterday Mechanism/Context: Fall Narrative Narrative: Patient presents with laceration to left eyebrow after a fall. Patient fell 8:30 PM last evening. She had come back from the store and was getting out of her car in the garage when she fell. She does not remember she slipped on something or her legs just gave out on her. Patient was recently admitted to the hospital for DKA and is currently on Xarelto secondary to pulmonary emboli. Patient denies neck pain. PFSH PFSH Medical History COPD (chronic obstructive pulmonary disease) Diabetes HLD (hyperlipidemia) HTN (hypertension) Hypothyroidism Osteopenia Pulmonary embolism, bilateral Smoker Home Medications albuterol sulfate 90 mcg/actuation aerosol inhaler 1 puff INHALATION ONCE PRN 09/08/21 [History Last Taken 10/05/21] amlodipine 5 mg-benazepril 10 mg capsule 1 cap PO DAILY 09/08/21 [History Last Taken 10/06/21] fluticasone 100 mcg-salmeterol 50 mcg/dose blistr powdr for inhalation 1 inh INHALATION BID PRN 09/08/21 [History Last Taken 10/05/21] insulin aspart U-100 100 unit/mL subcutaneous solution 100 unit CONTINUOUS SUBCUTANEOUS INFUSION .continuous ml 09/08/21 [History Last Taken 10/06/21] levothyroxine 112 mcg tablet 112 mcg PO DAILY 09/08/21 [History Last Taken 10/06/21] metoprolol succinate 50 mg tablet,extended release 24 hr 50 mg PO DAILY 09/08/21 [History Last Taken 10/06/21] oxybutynin chloride 5 mg tablet 10 mg PO DAILY tab 09/08/21 [History Last Taken 10/06/21] simvastatin 10 mg tablet 10 mg PO DAILY 09/08/21 [History Last Taken 10/05/21] insulin glargine [Lantus U-100 Insulin] 10 unit SUBCUT QPM 30 Days #3 ml 11/22/21 [Rx Last Taken Unknown] rivaroxaban [Xarelto] 20 mg PO DAILY #30 tab 11/22/21 [Rx Last Taken Unknown] Allergy/AdvReac Type Severity Reaction Status Date / Time ciprofloxacin [From Cipro] Allergy Intermediate hives Verified 12/01/21 10:27 Sulfa (Sulfonamide Allergy Intermediate hives Verified 12/01/21 10:27 Antibiotics) Family History Father Diabetes Respiratory disease Surgical History S/P insertion of insulin pump Social History household members: none Smoking Status: Current every day smoker tobacco type: cigarettes alcohol intake: current alcohol intake frequency: a few times a month substance use type: does not use ROS ROS ED Constitutional Constitutional ED: Denies chills or fever(s) Eyes Eyes: Denies change in vision ENT ENT ED: Denies sore throat Cardiovascular Cardiovascular: Denies chest pain Respiratory/Chest Respiratory/Chest: Denies cough or dyspnea Gastrointestinal Gastrointestinal: Denies abdominal pain, diarrhea, nausea or vomiting Genitourinary Genitourinary ED: Denies dysuria Musculoskeletal Musculoskeletal: Denies back pain Integumentary Reports other Details: Laceration left eyebrow ; Denies rash Neurologic Neurologic: Reports headache(s); Denies weakness Allergic/Immunologic Allergic/Immunologic ED: Denies urticaria EXAM Physical Exam Const Vital Signs: 12/01/21 10:27 Temperature 96.7 F L Temperature Source Temporal Pulse Rate 96 Respiratory Rate 18 Blood Pressure 128/86 H Blood Pressure Mean 100 Pulse Ox 94 Oxygen Delivery Method Room Air Positive well nourished and well developed General Appearance ED: well developed HEENT HEENT Narrative: 3 cm laceration to the left eyebrow region. Left periorbital ecchymosis noted. Eyes PERRL and EOMs intact bilaterally Neck Neck Narrative: No C-spine tenderness. Chest Wall inspection of chest normal and palpation of chest normal Resp normal respiratory effort and clear to auscultation bilaterally Cardio regular rhythm Rate: regular rate GI non-tender Palpation: soft Back/Spine no thoracic nor lumbar tenderness Extremity full ROM General Extremety ED: Negative for tenderness Neuro oriented x3 Neuro Narrative: No focal neurologic deficits. Sensorium / Orientation: alert Psych mental status grossly normal Skin Skin Narrative: Facial laceration as noted above. PROC Procedures Lacerations Left eyebrow laceration: Length: 1.18 in Depth: Sub Q Prep: Carina-Yaya Laceration repair: Lidocaine and Local Number of Sutures/Lindsay: 6 Suture Information: Ethilon, Simple and 5-0 Comment: Wound anesthetized with 2 cc of 1% lidocaine. Wound cleansed and irrigated. 6 simple interrupted sutures placed with good approximation. MDM MDM MDM Narrative Medical decision making narrative: Patient sent for head CT. Radiography Diagnostic Testing: Clinical Impression(s) from Imaging Studies Brain CT 12/01/21 10:45 IMPRESSION: Chronic involutional changes of the brain. Electronically Signed: Ayden Sifuentes MD at 11:19 EST , Treatment and Re-Evaluation Comments:: CT scan of the head shows chronic changes only. Patient consented for laceration repair. Please see procedure note. Patient have sutures removed in 1 week. Discharge Plan Triage Chief Complaint: Laceration Other Complaint: Fall Head Injury ED Provider: Gaby Saravia Dx/Rx/DC Orders Clinical Impression: Fall, Facial laceration Instructions: ED Mechanical Fall, ED Laceration: All Closures Prescriptions: No Action insulin aspart U-100 [Novolog U-100 Insulin aspart] 100 unit/mL solution 100 unit continuous subcutaneous infusion .continuous RF: 0 levothyroxine 112 mcg tablet 112 mcg PO DAILY RF: 0 amlodipine-benazepril [Lotrel] 5-10 mg capsule 1 cap PO DAILY RF: 0 oxybutynin chloride 5 mg tablet 10 mg PO DAILY RF: 0 metoprolol succinate [Toprol XL] 50 mg tablet extended release 24 hr 50 mg PO DAILY RF: 0 simvastatin 10 mg tablet 10 mg PO DAILY RF: 0 fluticasone propion-salmeterol [Wixela Inhub] 100-50 mcg/dose blister with device 1 inh inhalation BID PRN (Reason: SOB) RF: 0 albuterol sulfate [Proventil HFA] 90 mcg/actuation HFA aerosol inhaler 1 puff inhalation ONCE PRN (Reason: shortness of breath or wheezing) RF: 0 Lantus U-100 Insulin 100 unit/mL solution 10 unit subcut QPM 30 Days Qty: 3 RF: 0 Xarelto 20 mg tablet 20 mg PO DAILY Qty: 30 RF: 0 Primary Care Provider: Shena Jeffers Referrals: Shena Jeffers DO [Primary Care Provider] - 7 Days for suture removal Disposition Disposition: Home, Self Care What to do if you have Problems For any increased pain, shortness of breath, bleeding, nausea or vomiting, chest pain, or any unexpected problems, contact your Primary Care Provider. Call [facility] ([phone]) or report to the closest Emergency Room. Call 911 if necessary. 12/01/21 1646 <Electronically signed by Gaby Saravia MD> Cosigner Signature (if applicable): CC: Dr. Shena Jeffers, Signed Shena Jeffers DO Work Phone: Start: 11-17-2021 End: 11-18-2021 H AND P Exam - Hospitalist Comments: See Note; NOTES: [facility] Medical Records Department [address] [place] [address] H P Exam - Hospitalist 11/17/21 2346 MR#: [id number] Acct: [id number] Name: LIVIER SMALLS Rep #: [id number] : 1945 76 From: Roxanne Saxena MD PCP: Dr. Shena Jeffers DO Status:REG ER Location: ED HPI - General General Date of Admission: 11/17/21 Date of Service: 11/17/21 Chief Complaint: Intractable N/V, unresponsive HPI Narrative The patient is a 76 y/o F w/ PMHx: COPD with Chronic Hypoxic Respiratory Failure (2L NC), Tobacco use, Hypothyroidism, Hx VTE, HTN, HLD, IDDM with insulin pump following w/ Dr. Ceja, vaccinated and boosted against COVID-19 who presents to the [facility] ED on 11/17/21 via EMS secondary to unresponsiveness, found in her chair by her friend noted to be fine in the morning with onset of nausea and emesis throughout the afternoon and evening with blood sugar obtained by EMS noted to be 517 with ongoing confusion and decreased interactiveness prompting transition to the ED for evaluation. Patient's friend who is present states he did not eat the food she did and that she had had a mushroom soup for lunch. Work-up in the ED included T 98.6, heart rate 118, BP 138/42, respiratory rate 19, 97% on 2 L nasal cannula, CBC with WBC 22.4, hemoglobin 13.6, platelet 335 with significant left shift and lymphopenia, coags unremarkable, VBG with pH 7.30, bicarb 12, O2 saturation 95%, PCO2 24.4, PO2 80 on 2 L nasal cannula, BMP with sodium 130, chloride 87, carbon dioxide 14, anion gap 29, BUN/creatinine 50/2.97, glucose 818, lactic acid 5.1, [id number], TSH 20.8, urine drug screen with positive opiates, urinalysis requested but King placed in the ED and patient with no marked urine output therefore awaiting sample, ammonia level 15, acetone level small, chest x-ray with no acute cardiopulmonary findings, CT brain no acute intracranial findings, rapid COVID-19 antigen negative, blood culture x2 pending per ED. In the ED patient administered 2L NS, started on insulin drip and administered BSA vanc and zosyn for leukocytosis for possible infectious etiology. PFSH Medical History COPD (chronic obstructive pulmonary disease) Diabetes HLD (hyperlipidemia) HTN (hypertension) Hypothyroidism Osteopenia Pulmonary embolism, bilateral Smoker Home Medications albuterol sulfate 90 mcg/actuation aerosol inhaler 1 puff INHALATION ONCE PRN 09/08/21 [History Last Taken 10/05/21] amlodipine 5 mg-benazepril 10 mg capsule 1 cap PO DAILY 09/08/21 [History Last Taken 10/06/21] fluticasone 100 mcg-salmeterol 50 mcg/dose blistr powdr for inhalation 1 inh INHALATION BID PRN 09/08/21 [History Last Taken 10/05/21] insulin aspart U-100 100 unit/mL subcutaneous solution 100 unit CONTINUOUS SUBCUTANEOUS INFUSION .continuous ml 09/08/21 [History Last Taken 10/06/21] levothyroxine 112 mcg tablet 112 mcg PO DAILY 09/08/21 [History Last Taken 10/06/21] metoprolol succinate 50 mg tablet,extended release 24 hr 50 mg PO DAILY 09/08/21 [History Last Taken 10/06/21] oxybutynin chloride 5 mg tablet 10 mg PO DAILY tab 09/08/21 [History Last Taken 10/06/21] simvastatin 10 mg tablet 10 mg PO DAILY 09/08/21 [History Last Taken 10/05/21] apixaban [Eliquis DVT-PE Treat 30D Start] 5 mg PO BID #74 tab 10/07/21 [Rx Last Taken Unknown] Allergy/AdvReac Type Severity Reaction Status Date / Time ciprofloxacin [From Cipro] Allergy Intermediate hives Verified 11/17/21 21:43 Sulfa (Sulfonamide Allergy Intermediate hives Verified 11/17/21 21:43 Antibiotics) Family History (Updated 11/18/21 @ 00:[address] Roxanne Saxena MD) Father Diabetes Respiratory disease Surgical History (Updated 11/17/21 @ 22:[address] Roxanne Saxena MD) S/P insertion of insulin pump Social History (Updated 11/17/21 @ 22:[address] Roxanne Saxena MD) household members: none Smoking Status: Current every day smoker tobacco type: cigarettes Smoking packs per day: 0.5 Smoking cigarettes per day: 10.0 alcohol intake: current alcohol intake frequency: a few times a month substance use type: does not use ROS Review of Systems ROS Unobtainable: due to encephalopathy Vital Signs Vital Signs Vital Signs: 11/17/21 21:40 11/17/21 21:42 11/17/21 21:44 Temperature 98.2 F 98.6 F Temperature Source Temporal Temporal Pulse Rate 118 H 118 H Respiratory Rate 18 19 H Respiratory Effort Labored Blood Pressure 138/42 H 138/42 H Blood Pressure Mean 74 74 Pulse Ox 96 97 Oxygen Delivery Method Nasal Cannula Nasal Cannula Oxygen Flow Rate (L/min) 2 2 11/17/21 23:20 Temperature 98.2 F Temperature Source Temporal Pulse Rate 125 H Respiratory Rate 25 H Respiratory Effort Blood Pressure 123/37 H Blood Pressure Mean 65 Pulse Ox 98 Oxygen Delivery Method Nasal Cannula Oxygen Flow Rate (L/min) 2 Weight Weight: 152 lb 5.431 oz Body Mass Index (BMI) 26.9 Physical Exam Narrative Physical Examination: General: Awakens, not alert, not oriented, arouses to stimuli, moving spontaneously in the bed, mildly agitated. Skin: Normal color, normal turgor, no icterus, no cyanosis. HEENT: AT/NC, EOM unable to be assessed well as not following commands, difficult to assess pupils as patient is firmly closing her eyelids, dry MM, no carotid bruits or JVD noted, resists any opening of her eyelids but will do so for her friend who is present. Lungs: Diminished, greater bases, mildly increased respiratory rate with no evidence of distress, no rales, ronchi or wheezing. Heart: Tachycardic with regular rhythm; no gallop, rub audible. Abdomen: Soft, NTTP release no grimacing with palpation, ND, distant hyperactive BS, no HSM. Extremities: No cyanosis, clubbing, or edema. Neurological: Awakens, not alert, not oriented, arouses to stimuli, moving spontaneously in the bed, mildly agitated, cognitive function not baseline intact; difficult to assess pupils as patient is firmly closing her eyelids, difficult to assess cranial nerves as not following exam requests, moving extremities spontaneously. Psychiatric: Affect appears mildly agitated, moving in the bed, no acute evidence of depressive or anxiety feelings. Results Lab / Micro Data Result Diagrams: 11/17/21 22:00 11/17/21 22:00 Labs: Laboratory Results - last 24 hr 11/17/21 22:00: WBC 22.4 H, RBC 4.90, Hgb 13.6, Hct 43.2, MCV 88.2, MCH 27.8, MCHC 31.5 L, RDW Std Deviation 50.4 H, RDW Coeff of Kristyn 15.6 H, Plt Count 335, MPV 12.2 H, Immature Gran % (Auto) 1.000 H , Neut % (Auto) 90.3 H, Lymph % (Auto) 3.4 L, [place] % (Auto) 4.8, Eos % (Auto) 0.0, Baso % (Auto) 0.5, Absolute Neuts (auto) 20.2 H, Absolute Lymphs (auto) 0.75 L, Nucleated RBC % 0, Differential Comment SCANNED 11/17/21 22:00: PT 12.4, INR 1.0, APTT 26.1 11/17/21 22:00: Sodium 130 L, Potassium 5.0, Chloride 87 L, Carbon Dioxide 14.0 L, Anion Gap 29 H, BUN 50 H, Creatinine 2.97 H, Estim Creat Clear Calc 12.91, Est GFR (MDRD) Af Amer 20 L, Est GFR (MDRD) Non-Af 16 L, BUN/Creatinine Ratio 16.8, Glucose 818 H*, Calcium 10.0, Troponin I High Sens 23, TSH 20.80 H 11/17/21 22:00: Acetone Level SMALL H 11/17/21 22:00: Lactic Acid 5.1 H* 11/17/21 22:00: Urine Opiates Screen POSITIVE H, Urine Methadone Screen NEGATIVE, Ur Barbiturates Screen NEGATIVE, Ur Phencyclidine Scrn NEGATIVE, Ur Amphetamines Screen NEGATIVE, U Methamphetamin- MDMA NEGATIVE, U Benzodiazepines Scrn NEGATIVE, Urine Cocaine Screen NEGATIVE, U Cannabinoids Screen NEGATIVE, Ur Drug Screen Comment Micro: Microbiology 11/17/21 22:42 Nasal Secretion SARS-CoV-2 Antigen (Rapid) - Final ABG Data ABG results: ABG 11/17/21 23:02 Specimen Type ART Sample Site R Radial pH 7.30 L Bicarbonate Actual 12.0 L Total CO2 13 Base Excess -15 L O2 Saturation 95 ABG pCO2 24.4 L ABG pO2 80 Lilly Test Positive O2 Delivery Device Cannula Liter Flow 2.[address] 11/17/21 22:16 IMPRESSION: No acute findings in the head/brain. Electronically Signed: Jm Brunner MD at 23:12 EST , Chest X-Ray 11/17/21 22:16 IMPRESSION: No acute findings in the chest. Electronically Signed: Jm Brunner MD at 23:13 EST , Assessment Plan Assessment/Plan (1) DKA (diabetic ketoacidoses): QUALIFIERS: Diabetes mellitus complication detail: with coma Diabetes mellitus type: other specified (including YANELIS) Qualified Code(s): E13.11 - Other specified diabetes mellitus with ketoacidosis with coma (2) THANIA (acute kidney injury): PLAN: The patient is a 76 y/o F w/ PMHx: COPD with Chronic Hypoxic Respiratory Failure (2L NC), Tobacco use, Hypothyroidism, Hx VTE, HTN, HLD, IDDM with insulin pump following w/ Dr. Ceja, vaccinated and boosted against COVID-19 who presents to the [facility] ED on 11/17/21 via EMS secondary to unresponsiveness, found in her chair by her friend noted to be fine in the morning with onset of nausea and emesis throughout the afternoon and evening with blood sugar obtained by EMS noted to be 517 with ongoing confusion and decreased interactiveness prompting transition to the ED for evaluation. #1. Acute Encephalopathy secondary to DKA w/ IDDM with insulin pump with associated lactic acidosis: Will admit to the ICU, will hold insulin pump and continue on insulin drip, check serial K+, glucose w/ IVF changes pending these levels, serial chemistry, obtain mag, phos daily w/ repletion as needed, transition to home insulin pump regimen when gap closed, nutrition consultation. Encouraged diet and insulin regimen compliance. #2. Significant leukocytosis with left shift with unclear etiology: CBC with WBC 22.4 with left shift, urinalysis pending for full placed in the ED and not marked urine output, chest x-ray with no acute cardiopulmonary findings, rapid Covid antigen negative, procalcitonin requested. Patient administered Vanc and Zosyn in the ED, will defer further abx therapy given possibly secondary to ac pilot station presentation #1, #3. #3. Acute kidney injury: Secondary to acute presentation #1 with significant GI losses with recent nausea and emesis. Admission BUN/Cr 50/2.97, prior baseline creatinine noted to be 0.8. Will continue to aggressively hydrate, hold nephrotoxic medications and repeat chemistry in AM. If no improvement would plan FeNa and renal ultrasound assessment. Urinalysis pending. #4. Hypothyroidism with elevated TSH: TSH 20.80, will continue levothyroxine once oral intake appropriate with pending free T4 level. #5. History 09/2021 bilateral PE: We will continue patient on apixaban regimen once oral intake appropriate however if necessary may transition to therapeutic Lovenox versus heparin drip in the interim. #6. Chronic COPD with chronic hypoxic respiratory failure: Will maintain on home oxygen supplementation, hold home inhalers, transition in the interim to ATC duonebs, PRN albuterol, HOB, IS parameters. #7. Tobacco Abuse: Encouraged cessation, inpatient consultation per RT, NR if desired. #8. Hypertension: Continue home regimen including amlodipine once oral intake appropriate, hold CAROL inhibitor given acute kidney injury as noted, PRN hydralazine. #9. Hyperlipidemia: We will continue patient on statin therapy once oral intake appropriate. #10. Urinary incontinence: Continue patient home oxybutynin regimen once oral intake appropriate. #11. DVT prophylaxis: SCDs, will continue patient home apixaban regimen once oral intake appropriate however prolonged may need to transition to heparin drip versus therapeutic Lovenox. Charges/Coding Visit Charges Inpatient E M: 91789 Init Hosp L3 11/18/21 0009 <Electronically signed by Roxanne Saxena MD> Cosigner Signature (if applicable): CC: Dr. Roxanne Saxena MD; Dr. Shena Jeffers DO Signed Shena Jeffers DO Work Phone: Start: 11-17-2021 End: 11-17-2021 Brain/Head without Contrast Comments: See Note; NOTES: [facility] Imaging Services [address] [place] [address] Brain/Head without Contrast MR#: [id number] Acct: [id number] Name: LIVIER SMALLS Rep #: [id number] : 1945 F 76 From: Jm Brunner MD PCP: Dr. Shena Jeffers DO Status: REG ER Study: Brain/Head without Contrast Date of Exam: 10/25 03/14 Exam# [id number] Ordering Dr: Jimmie Pinto DO EXAM: CT Head Without Intravenous Contrast CLINICAL INDICATION: 76 years old, Female; altered mental status TECHNIQUE: Multiple axial images were obtained of the head without intravenous contrast. This CT exam was performed using one or more of the following dose reduction techniques: automated exposure control, adjustment of the mA and/or kV according to patient size, and/or use of iterative reconstruction technique. This report was created using [employer] report generation technology. COMPARISON: None. FINDINGS: Brain and extra-axial spaces: There are a few areas of decreased attenuation in the deep cerebral white matter consistent with mild small vessel ischemic/degenerative changes. The cerebral and cerebellar sulci are mildly prominent consistent with mild brain atrophy. No intra- or extra-axial hemorrhage. No intracranial mass or mass effect. Basal cisterns are patent. 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 No discrete lytic or blastic abnormalities. Vasculature: Atherosclerotic disease. Sinuses: Unremarkable as visualized. Clear. Mastoid air cells: Unremarkable. Clear. Orbits: Visualized globes, extraocular muscles, optic nerves and retrobulbar fat appear unremarkable. CT/Brain/Head without Contrast IMPRESSION: No acute findings in the head/brain. Electronically Signed: Jm Brunner MD at 23:12 EST , CC: Dr. Shena Jeffers DO; Jimmie Pinto DO Retail Pharmacy Technician: Signed Shena Jeffers DO Work Phone: Start: 11-17-2021 End: 11-17-2021 Chest 1 View (Portable) Comments: See Note; NOTES: [facility] Imaging Services [address] [place] [address] Chest 1 View (Portable) MR#: [id number] Acct: [id number] Name: LIVIER SMALLS Rep #: [id number] : 1945 F 76 From: Jm Brunner MD PCP: Dr. Shena Jeffers DO Status: REG ER Study: Chest 1 View (Portable) Date of Exam: 11/17/21 Exam# [id number] Ordering Dr: Jimmie Pinto DO EXAM: XR Chest, 1 View CLINICAL INDICATION: 76 years old, Female; altered mental status TECHNIQUE: Frontal view of the chest. This report was created using [employer] report generation technology. COMPARISON: None. FINDINGS: Lungs and pleural spaces: Unremarkable. No consolidation or edema. No pneumothorax. No effusion. Heart: Unremarkable. Cardiac silhouette not enlarged. Mediastinum: Central airways and mediastinal contour are unremarkable. Bones/joints: Unremarkable. Soft tissues: Calcified breast implants. Vasculature: Calcified aorta. RAD/Chest 1 View (Portable) IMPRESSION: No acute findings in the chest. Electronically Signed: Jm Brunner MD at 23:13 EST , CC: Dr. Shena Jeffers DO; Jimmie Pinto DO Retail Pharmacy Technician: Signed Shena Jeffers DO Work Phone: Start: 11-17-2021 CT of head without contrast Dr. Shena Jeffers Work Phone: Start: 11-17-2021 Plain chest X-ray Dr. Millicent Jeffers Work Phone: Start: 11-17-2021 Bacteria identified in Blood by Culture Dr. Shena Jeffers Work Phone: Start: 11-17-2021 SARS-CoV-2 Antigen (Rapid) Dr. Shena Jeffers Work Phone: Start: 10-28-2021 End: 10-28-2021 Chest PA and Lateral Comments: See Note; NOTES: [facility] Imaging Services [address] [place] [address] Chest PA and Lateral MR#: [id number] Acct: [id number] Name: LIVIER SMALLS Rep #: [id number] : 1945 F 76 From: Cecilio Pelaez MD PCP: Dr. Shena Jeffers DO Status: REG CLI Study: Chest PA and Lateral Date of Exam: 10/28/21 Exam# [id number] Ordering Dr: Maritza Levine SECURITY RISK ANALYST SECURITY RISK ANALYST-C STUDY: X-RAY CHEST REASON FOR EXAM: Female, 76 years old. SOB TECHNIQUE: PA and lateral views of the chest. COMPARISON: 10/06/2021 FINDINGS: No change in the alveolar opacity in the lower right lung consistent with right lower lobe pneumonia or atelectasis. There is no demonstrated pleural abnormality. There is moderate cardiac enlargement. Normal mediastinum and uli. Normal visualized pulmonary arteries. Normal visualized aortic arch and descending thoracic aorta. Normal visualized thoracic spine. Normal visualized ribs, clavicles, and shoulders. There is no demonstrated abnormality of the visualized soft tissue structures of the upper abdomen. RAD/Chest PA and Lateral IMPRESSION: No change in right lower lobe pneumonia or atelectasis Electronically Signed: Cecilio Pelaez MD at 9:45 EST Tel , Service support , CC: SECURITY RISK ANALYSTJorje Levine; Dr. Shena Jeffers DO Retail Pharmacy Technician: Signed Maritza Levine CNP Work Phone: Start: 10-28-2021 Plain chest X-ray Dr. Millicent Jeffers Work Phone: Start: 10-28-2021 Radiography of thora cic spine Dr. Shena Jeffers Work Phone: Start: 10-28-2021 End: 10-28-2021 Thoracic Spine 3 Views Comments: See Note; NOTES: [facility] Imaging Services [address] [place] [address] Thoracic Spine 3 Views MR#: [id number] Acct: [id number] Name: LIVIER SMALLS Rep #: [id number] : 1945 F 76 From: Kt Pimentel MD PCP: Dr. Shena Jeffers DO Status: REG CLI Study: Thoracic Spine 3 Views Date of Exam: 10/28/21 Exam# [id number] Ordering Dr: Maritza Levine NP SECURITY RISK ANALYST-C STUDY: X-RAY - THORACIC SPINE REASON FOR EXAM: Female, 76 years old. BACK PAIN TECHNIQUE: 2 view(s) of the thoracic spine were obtained. COMPARISON: MRI of the thoracic spine 10/28/2021 and x-ray dated 09/30/2021. FINDINGS: There is an increase in the normal thoracic kyphosis. There is no substantial scoliosis. There is multilevel endplate spondylosis of the thoracic vertebrae. There is multilevel disc space narrowing of the thoracic spine. There is greater than 40% compression at T6. This demonstrated edema on the concurrent MRI which is consistent with acute fracture. Compression has increased since the prior x-ray examination of 09/30/2021. There is no demonstrated retropulsion. Please see dedicated MRI examination. RAD/Thoracic Spine 3 Views IMPRESSION: Increased T6 fracture. Electronically Signed: Kt Pimentel MD at 9:32 EST Tel , Service support , CC: EDDIE Levine; Dr. Shena Jeffers DO Retail Pharmacy Technician: Signed Maritza Levine CNP Work Phone: Start: 10-28-2021 MRI of thoracic spine Raj Jeffers Work Phone: Start: 10-28-2021 End: 10-28-2021 Spine Thoracic (Routine) Comments: See Note; NOTES: [facility] Imaging Services [address] [place] [id number] Spine Thoracic (Routine) MR#: [id number] Acct: [id number] Name: LIVIER SMALLS Rep #: [id number] : 1945 F 76 From: Kt Pimentel MD PCP: Dr. Shena Jeffers DO Status: REG CLI Study: Spine Thoracic (Routine) Date of Exam: Exam# [id number] Ordering Dr: Shena Jeffers DO STUDY: MRI THORACIC SPINE WITHOUT CONTRAST REASON FOR EXAM: Female, 76 years old. COMPRESSION FX TECHNIQUE: Standardized fat and water weighted pulse sequences were obtained in the sagittal and axial planes. COMPARISON: X-ray dated 10/28/2021 and 09/30/2021 FINDINGS: Normal kyphosis of the thoracic spine. There is no substantial scoliosis. T1-2, T2-3, T3-4, T4-5, T5-6, T6-7, T7-8, T8-9, T9-10, T10-11, T11-12: There are multilevel disc space narrowing and spondylosis. At T6/T7 is moderate disc space narrowing and endplate spondylosis with small disc herniation without significant central canal or foraminal stenosis. At T6 there is greater than 40% depression at the inferior endplate with edema, consistent with acute fracture. Compression has increased since the prior x-ray examination of 09/30/2021. There is no retropulsion. There is no demonstrated ligamentous injury. Additionally there is minimal (less than 5%) depression superior endplate of T7 with edema which may represent minimal superior endplate fracture as well. Normal visualized thoracic cord. MRI/Spine Thoracic (Routine) IMPRESSION: Acute T6 and T7 fractures Electronically Signed: Kt Pimentel MD at 9:31 EST Tel , Service support , CC: Dr. Shena Jeffers DO Retail Pharmacy Technician: Albert Jeffers DO Work Phone: Start: 10-06-2021 CT angiography of est with contrast Dr. Shena Jeffers Work Phone: Start: 10-06-2021 End: 10-06-2021 H AND P Exam - Hospitalist Comments: See Note; NOTES: [facility] Medical Records Department [address] [place] [address] H P Exam - Hospitalist 10/06/21 1509 MR#: [id number] Acct: [id number] Name: LIVIER SMALLS Rep #: [id number] : 1945 76 From: Roxi Velázquez DO PCP: Dr. Shena Jeffers DO Status:REG ER Location: ED HPI - General General Date of Admission: 10/06/21 Date of Service: 10/06/21 Chief Complaint: Shortness of breath HPI Narrative LIVIER SMALLS, is a 76 F who presented to the emergency department with spouse fell on 10/06/2021 the chief complaint of shortness of breath. She states that she started experiencing some fatigue over the weekend. She had a thoracic spine fracture and a CTA of her chest was done last week for her pain to rule out pulmonary embolism. This was negative for PE. It also appears that she had an elevated ESR and CRP at that time indicating some inflammatory process was going on although nonspecific. She states that the fatigue definitely sudden after she was evaluated by her doctor on 09/30/2021 and starting this morning she developed some shortness of breath. She denies any anosmia or dysgeusia, nausea or vomiting, diarrhea, cough, fever or chills and she has been vaccinated and boosted for COVID-19. She is afebrile with normal blood pressure, respiratory rate but her pulse ox in the emergency department upon presentation was 84% on room air and improved to 91-97 on 3 L nasal cannula. Her CBC shows a mildly elevated white count at 12.2 with a left shift. Her BMP is overall unremarkable. Her serum glucose was 125. Her serum troponin was 14. A rapid Covid was negative and a PCR is pending at this time. Her chest x-ray showed bibasilar haziness but no focal infiltrate. She was treated with prednisone 60 mg p.o. x1 dose and given a DuoNeb nebulizer treatment and request for admission was made. [facility] Medical History COPD (chronic obstructive pulmonary disease) Diabetes Osteopenia Respiratory failure Home Medications albuterol sulfate 90 mcg/actuation aerosol inhaler 1 puff INHALATION ONCE PRN 09/08/21 [History Last Taken 10/05/21] amlodipine 5 mg-benazepril 10 mg capsule 1 cap PO DAILY 09/08/21 [History Last Taken 10/06/21] fluticasone 100 mcg-salmeterol 50 mcg/dose blistr powdr for inhalation 1 inh INHALATION BID PRN 09/08/21 [History Last Taken 10/05/21] insulin aspart U-100 100 unit/mL subcutaneous solution 100 unit CONTINUOUS SUBCUTANEOUS INFUSION .continuous ml 09/08/21 [History Last Taken 10/06/21] levothyroxine 112 mcg tablet 112 mcg PO DAILY 09/08/21 [History Last Taken 10/06/21] metoprolol succinate 50 mg tablet,extended release 24 hr 50 mg PO DAILY 09/08/21 [History Last Taken 10/06/21] oxybutynin chloride 5 mg tablet 10 mg PO DAILY tab 09/08/21 [History Last Taken 10/06/21] simvastatin 10 mg tablet 10 mg PO DAILY 09/08/21 [History Last Taken 10/05/21] Allergy/AdvReac Type Severity Reaction Status Date / Time ciprofloxacin [From Cipro] Allergy Intermediate hives Verified 10/06/21 11:17 Sulfa (Sulfonamide Allergy Intermediate hives Verified 10/06/21 11:17 Antibiotics) Family History Father Diabetes Other Respiratory disease no surgical history Social History (Updated 10/06/21 @ 15:[address] Roxi Velázquez DO) Smoking Status: Current every day smoker tobacco type: cigarettes Smoking packs per day: 0.5 Smoking cigarettes per day: 10.0 alcohol intake: current alcohol intake frequency: a few times a month substance use type: does not use ROS Constitutional Constitutional: Reports weakness; Denies anorexia, change in weight, chills, fatigue, fever(s), malaise, night sweats or other Eyes Eyes: Denies blurry vision, change in eye color, change in vision, discharge from eye(s), double vision, erythema, eye pain, loss of vision or other ENT HEENT: Denies abnormal hearing, dysphagia, ear pain, epistaxis, headache(s), hearing loss, nasal congestion, nasal discharge, post nasal drip, sinus pressure, sore throat or other Cardiovascular Cardiovascular: Denies chest pain, claudication, dyspnea on exertion, edema, lightheadedness, orthopnea, palpitations, paroxysmal nocturnal dyspnea, rapid heart rate, syncope or other Respiratory/Chest Respiratory/Chest: Reports dyspnea, shortness of breath at rest and shortness of breath with exertion; Denies cough, excessive phlegm production, hemoptysis, productive cough, wheezing or other Gastrointestinal Gastrointestinal: Denies abdominal pain, coffee ground emesis, constipation, diarrhea, dyspepsia, hematemesis, hematochezia, loose stools, melena, nausea, vomiting or other Genitourinary Genitourinary: Reports urinary incontinence; Denies burning urination, difficulty urinating, dysuria, hematuria, nocturia, urinary frequency, urinary hesitancy, urinary urgency or other Musculoskeletal Musculoskeletal: Reports back pain; Denies arthralgias, joint pain, joint stiffness, joint swelling, myalgias, neck pain or other Neurologic Neurologic: Denies abnormal gait, abnormal speech, confusion, disequilibrium, dizziness, focal weakness, headache(s), numbness, paresthesias, seizure-like activity, seizures, syncope, tingling, tremor(s) or other Psychiatric Psychiatric: Denies anxiety, depression, homicidal ideation, suicidal ideation or other Endocrine Endocrinology: Denies change in body appearance, cold intolerance, excessive sweating, heat intolerance, polydipsia, polyuria or other Hematologic/Lymphatic Hematologic/Lymphatic: Denies anemia, easy bleeding, easy bruising, lymphadenopathy or other Allergic/Immunologic Allergic/Immunologic: Denies rhinitis, hives, eczemia, asthma or other Vital Signs Vital Signs Vital Signs: 10/06/21 11:26 10/06/21 11:28 10/06/21 11:50 Temperature 98.6 F Temperature Source Temporal Pulse Rate 94 Respiratory Rate 18 Respiratory Effort Short of Breath Respiratory Depth Deep Respiratory Pattern Tachypnea Blood Pressure 146/72 H Blood Pressure Mean 96 Pulse Ox 84 97 Oxygen Delivery Method Room Air Nasal Cannula Nasal Cannula Oxygen Flow Rate (L/min) 3 3 10/06/21 11:52 10/06/21 12:15 10/06/21 12:18 Temperature Temperature Source Pulse Rate 76 Respiratory Rate 18 Respiratory Effort Respiratory Depth Respiratory Pattern Blood Pressure Blood Pressure Mean Pulse Ox 91 92 Oxygen Delivery Method Nasal Cannula Nasal Cannula Oxygen Flow Rate (L/min) 3 3 10/06/21 13:28 10/06/21 14:50 Temperature 98.6 F Temperature Source Temporal Pulse Rate 94 84 Respiratory Rate 15 17 Respiratory Effort Respiratory Depth Respiratory Pattern Blood Pressure 145/55 H 145/55 H Blood Pressure Mean 85 85 Pulse Ox 91 91 Oxygen Delivery Method Nasal Cannula Oxygen Flow Rate (L/min) 3 3 Weight Weight: 72.575 kg Body Mass Index (BMI) 27.4 Physical Exam Const alert, oriented x3 and no apparent distress Constitutional Narrative: Older white female sitting up in bed, appears comfortable, nontoxic, currently on 3 L nasal cannula with oxygen saturation of 91 to 92% no signs of respiratory distress General Appearance: cooperative HEENT normocephalic, head/scalp atraumatic, hearing grossly normal bilaterally and moist oral mucous membranes HEENT Narrative: Dentition is good, Mallampati is 2, no thrush Eyes PERRL, EOMs intact bilaterally and conjunctivae normal Eyes Narrative: No scleral icterus Neck no lymphadenopathy, supple, no JVD and no carotid bruits Neck Narrative: Trachea midline, no thyroid enlargement Resp normal respiratory effort, no retractions and no use of accessory muscles Resp Narrative: Few scattered end expiratory wheeze and overall diminished but no rales or rhonchi Auscultation: Negative for crackles, rales, rhonchi or wheezes Cardio regular rate, regular rhythm, S1 normal heart sound, S2 normal heart sound, no murmurs, no rub, no gallops, no clicks and no JVD GI normal to inspection, nondistended, normoactive bowel sounds, soft to palpation, non-tender and non- distended Extremity no clubbing, cyanosis or edema Peripheral Pulses: Yes pulses 2+ throughout Skin no rashes or lesions noted, no wounds, skin turgor normal, no jaundice, no petechiae and no mottling Neuro oriented x3, CN's II-XII intact bilaterally, moves all extremities and no focal motor deficits Sensorium / Orientation: awake and alert Speech: speech normal Motor Exam: strength 5/5 throughout Psych affect normal Results Lab / Micro Data Result Diagrams: 10/06/21 12:11 10/06/21 12:11 Labs: Laboratory Results - last 24 hr 10/06/21 12:11: WBC 12.2 H, RBC 4.58, Hgb 13.1, Hct 40.3, MCV 88.0, MCH 28.6, MCHC 32.5, RDW Std Deviation 46.7 H, RDW Coeff of Kristyn 14.7 H, Plt Count 302, MPV 10.8, Immature Gran % (Auto) 0.600, Neut % (Auto) 77.5 H, Lymph % (Auto) 10.1 L, [place] % (Auto) 9.9, Eos % (Auto) 1.3, Baso % (Auto) 0.6, Absolute Neuts (auto) 9.5 H, Absolute Lymphs (auto) 1.23, Nucleated RBC % 0 10/06/21 12:11: Sodium 138, Potassium 4.0, Chloride 102, Carbon Dioxide 32.0, Anion Gap 4 L, BUN 18, Creatinine 0.96, Estim Creat Clear Calc 41.71, Est GFR (MDRD) Af Amer 73, Est GFR (MDRD) Non-Af 60, BUN/Creatinine Ratio 18.8, Glucose 125 H, Calcium 9.3, Troponin I High Sens 14 Micro: Microbiology 10/06/21 12:35 Nasal Secretion SARS-CoV-2 Antigen (Rapid) - Final Rhythm Strip Rhythm Strip: Sinus Rhythm Rate: 76 Ectopy: None Assessment Plan Assessment/Plan (1) Acute respiratory failure with hypoxia: (2) COPD with acute exacerbation: (3) Leukocytosis: PLAN: Acute hypoxic respiratory failure -Etiology is unclear at this time although suspect acute exacerbation of COPD -CTA of her chest was performed on 09/30/2021 secondary to an elevated D-dimer of 0.84 and showed no acute abnormality but centrilobular emphysema in the apices -Check respiratory PCR -Rapid Covid is negative we will check Covid PCR -Patient has been vaccinated and boosted for Covid -Chest x-ray is overall unimpressive -Check BNP and if elevated will obtain an echocardiogram although clinically patient appears to be euvolemic -Check D-dimer and if elevated greater than 0.84 we will repeat CTA of her chest to rule out PE given the fact that she is now hypoxic -Solu-Medrol 40 every 8 -As needed and scheduled pulmonary toilet -Incentive spirometer -Sputum culture if able -Check urine Legionella and strep pneumo antigens -With mild leukocytosis and acute hypoxia will start ceftriaxone and azithromycin empirically -Patient did have ESR and CRP performed Leukocytosis -Infectious work-up as noted above -We will start antibiotics empirically at this time COPD with current tobacco abuse -Recommend tobacco cessation -Patient denies any need for nicotine patch at this time -Hold home inhalers Hypothyroidism -We will check TSH -Continue levothyroxine Hypertension -Continue metoprolol -Continue motor pain/Benzepril Hyperlipidemia -Continue simvastatin DM-1 -Patient has insulin pump -We will continue at this time but if mental status changes or any other factors change may need to convert to subcu insulin and remove pump -Patient has appointment to follow-up with Dr. Ceja as an outpatient soon -Accu-Cheks before meals and at bedtime Urinary incontinence -Continue oxybutynin DVT prophylaxis -Lovenox 40 mg subcu daily -SCDs CODE STATUS -DNR CCA without intubation as per discussed with the patient the emergency department Charges/Coding Visit Charges Inpatient E M: 16190 Init Hosp L3 10/06/21 1523 <Electronically signed by Roxi Velázquez DO> Cosigner Signature (if applicable): CC: Dr. Shena Jeffers DO; Dr. Roxi Velázquez DO Signed Shena Jeffers DO Work Phone: Start: 10-06-2021 Respiratory Panel (PCR) Dr. Shena Jeffers Work Phone: Start: 10-06-2021 Plain chest X-ray Dr. Millicent Jeffers Work Phone: Start: 09-30-2021 CT angiography of ch est with contrast Dr. Shena Jeffers Work Phone: Start: 09-30-2021 End: 09-30-2021 CTA Chest W/WO Contrast Comments: See Note; NOTES: [facility] Imaging Services [address] [place] [id number] CTA Chest W/WO Contrast MR#: [id number] Acct: [id number] Name: LIVIER SMALLS Rep #: [id number] : 1945 F 76 From: Mamadou Avitia MD PCP: Dr. Shena Jeffers DO Status: REG CLI Study: CTA Chest W/WO Contrast Date of Exam: 09/30/21 Exam# [id number] Ordering Dr: Maritza Levine NP SECURITY RISK ANALYST-C STUDY: CTA CHEST REASON FOR EXAM: Female, 76 years old. R/O PE RADIATION DOSAGE (If Supplied By Facility): CTDIvol = ( 6.88 ) mGy, DLP = ( 216.80 ) mGycm TECHNIQUE: The examination was performed with the intravenous administration of IV 100mL [id number]-370. Post-processing of the angiographic images was performed, with multiplanar reformation and 3D reconstruction. Individualized dose optimization techniques were used for this CT. COMPARISON: 08/17/2021 FINDINGS: Normal enhancement of the main pulmonary artery and right and left pulmonary arteries. Normal enhancement of the bilateral peripheral pulmonary arteries. There is no demonstrated pulmonary embolism. There is atherosclerotic calcification of the aortic arch with tortuosity. There is no demonstrated aortic dissection. Normal heart and pericardium. There are calcifications of the coronary arteries. Normal mediastinum. Normal hilar regions. Normal visualized trachea and bronchi. The lungs are hyper expanded, with flattening of the hemidiaphragms. Centrilobular emphysema predominantly in the upper lung zones. Scattered lower lobe fibrotic bands and not significantly changed since the prior study. Normal pleura. Bilateral breast implants with capsular calcifications. There are degenerative changes of thoracic spine. Mild T5 compression fracture stable since prior chest CT. 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 Gallstones are present. CT/CTA Chest W/WO Contrast IMPRESSION: 1. No central or segmental pulmonary embolism. 2. Chronic changes, as above. Electronically Signed: Mamadou Avitia MD ([place]) at 15:18 EST , Service support , CC: EDDIE Levine; Dr. Shena Jeffers DO Retail Pharmacy Technician: Signed Maritza Levine VICE PRESIDENT MARKETING [employer] DEVELOPMENT Work Phone: Start: 09-30-2021 End: 09-30-2021 Nonphysician telephone assessment 5-10 min Compression fracture of T5 vertebra Shena Jeffers DO Work Phone: Start: 09-30-2021 End: 09-30-2021 Chest PA and Lateral Comments: See Note; NOTES: [facility] [address] [place] [address] Chest PA and Lateral MR#: [id number] Acct: [id number] Name: LIVIER SMALLS Rep #: [id number] : 1945 F 76 From: Mamadou Avitia MD PCP: Dr. Shena Jeffers DO Status: DEP AMB Study: Chest PA and Lateral Date of Exam: 09/30/21 Exam# [id number] Ordering Dr: Maritza Levine NP SECURITY RISK ANALYST-C STUDY: X-RAY CHEST REASON FOR EXAM: Female, 76 years old. SOB -- STAT TECHNIQUE: PA and lateral views of the chest. COMPARISON: None. FINDINGS: Bilateral breast implants with capsular calcifications. Coarsened interstitial lung markings but no airspace consolidation. There is no demonstrated pleural abnormality. Normal size heart. Normal mediastinum and uli. Normal visualized pulmonary arteries. There is atherosclerotic calcification of the aortic arch with tortuosity. There is demineralization of the osseous structures. Normal visualized ribs, clavicles, and shoulders. There is no demonstrated abnormality of the visualized soft tissue structures of the upper abdomen. RAD/Chest PA and Lateral IMPRESSION: No acute cardiopulmonary process. Electronically Signed: Mamadou Avitia MD ([place]) at 11:42 EST , Service support , CC: SECURITY RISK ANALYST-C Maritza Levine; Dr. Shena Jeffers DO Retail Pharmacy Technician: Signed Maritza Levine CNP Work Phone: Start: 09-30-2021 Plain chest X-ray Dr. Millicent Jeffers Work Phone: Start: 09-30-2021 Radiography of thora cic spine Dr. Shena Jeffers Work Phone: Start: 09-30-2021 End: 09-30-2021 Thoracic Spine 3 Views Comments: See Note; NOTES: [facility] [address] [place] [address] Thoracic Spine 3 Views MR#: [id number] Acct: [id number] Name: LIVIER SMALLS Rep #: [id number] : 1945 F 76 From: Mamadou Avitia MD PCP: Dr. Shena Jeffers DO Status: DEP AMB Study: Thoracic Spine 3 Views Date of Exam: 09/30/21 Exam# [id number] Ordering Dr: Maritza Levine NP SECURITY RISK ANALYST-C STUDY: X-RAY - THORACIC SPINE REASON FOR EXAM: Female, 76 years old. BACK PAIN TECHNIQUE: 3 view(s) of the thoracic spine were obtained. COMPARISON: Chest CT 08/17/2021. FINDINGS: Normal kyphosis of the thoracic spine. There is no substantial scoliosis. There is demineralization of the thoracic spine with endplate spondylosis. There is multilevel disc space narrowing of the thoracic spine. Slight anterior compression deformity of T5 involving the inferior endplate, similar since prior CT 08/17/2021. The soft tissue structures are unremarkable. RAD/Thoracic Spine 3 Views IMPRESSION: Multilevel degenerative changes. Mild T5 compression deformity similar since prior CT. Electronically Signed: Mamadou Avitia MD ([place]) at 11:44 EST , Service support , CC: SECURITY RISK ANALYST-C Maritza Levine; Dr. Shena Jeffers DO Retail Pharmacy Technician: Signed Maritza Levine CNP Work Phone: Start: 08-17-2021 End: 08-17-[address] Lung Screening Comments: See Note; NOTES: [facility] Imaging Services [address] [place] [address] Lung Screening MR#: [id number] Acct: [id number] Name: LIVIER SMALLS Rep #: [id number] : 1945 F 76 From: Ayden urbina MD PCP: Dr. Shena Jeffers, Status: REG CLI Study: Low Dose CT Lung Screening Date of Exam: 08/17 Exam# [id number] Ordering Dr: Shena Jeffers DO STUDY: LOW DOSE CT LUNG CANCER SCREENING REASON FOR EXAM: Female, 76 years old. COPD. Longtime smoker. RADIATION DOSAGE (If Supplied By Facility): CTDIvol = ( 3.02 ) mGy, DLP = ( 110.23 ) mGycm TECHNIQUE: No contrast was administered. Low dose technique was utilized (average mAS-38 and kVp 120). 1.25 mm axial source images with a slice interval of 1.25-mm were reconstructed in lung windows. 2.5 mm axial source images with a slice interval of 2.5-mm were reconstructed in lung windows. 5.0 mm axial source images with a slice interval of 5.0-mm were reconstructed in soft tissue windows. Nodule measured using lung windows on PACS and/or independent workstation with automated measurement of minimum and maximum diameter. Nodule measurement reported as average diameter rounded to the nearest whole number. Growth is defined as an increase ins size of greater than 1.5 mm. COMPARISON: None. NODULES: No suspicious nodules are seen. Emphysema: Hyperinflation. Emphysematous changes more prominent in the upper lobes. Focal increased markings in the posterior aspect of the lingular segment of the left upper lobe abutting the left major fissure most likely secondary to scarring. There is evidence of a linear scarring at the lung bases. Endobronchial lesion: None Aorta: Atherosclerotic plaque formation. Coronary arteries: Coronary artery calcification. Heart: Unremarkable. Pulmonary artery: Mediastinal nodes: Other chest and abdominal findings: Calcification of the margins of both breast prostheses. CT/Low Dose CT Lung Screening IMPRESSION: Lung-RADS category 2 - Continue annual screening with LDCT in 12 months. IMPORTANT NOTES FOR USE: ACR Lung-RADS Version 1.1 Assessment Categories Release Date: 2018 Category: Coded 0-4 bases on nodule(s) with highest degree of suspicion. Negative screen is defined as categories 1 and 2; a positive screen is defined as categories 3 and 4. Category 3 and 4A nodules that are unchanged on interval CT should be coded as category 2, and individuals returned to screening in 12 months. Category 4X: Category 3 or 4 nodules with additional imaging findings that increase the suspicion of lung cancer, such as spiculation, GGN that doubles in size in 1 year, enlarged lymph notes, etc. Category Modifiers: S (significant finding unrelated to lung cancer) Electronically Signed: Ayden Sifuentes MD at 15:17 EDT , Service support , CC: Dr. Shena Jeffers DO Retail Pharmacy Technician: Signed Shena Jeffers DO Work Phone: Augmentation mammoplasty Ruth Castellano LABELING STRATEGIST Augmentation mammoplasty Saray Gravius ESCALATOR ATTENDANT Augmentation mammoplasty Ruth Gray LABELING STRATEGIST Augmentation mammoplasty Krystal Manchak ESCALATOR ATTENDANT Augmentation mammoplasty Saray Gravius ESCALATOR ATTENDANT Augmentation mammoplasty Taylor Thrasher MA Augmentation mammoplasty Saray Gravius ESCALATOR ATTENDANT Augmentation mammoplasty Kayela Afshan ESCALATOR ATTENDANT Augmentation mammoplasty Kayela [place] ESCALATOR ATTENDANT Augmentation mammoplasty Kayela Afshan ESCALATOR ATTENDANT Augmentation mammoplasty Kayela Afshan ESCALATOR ATTENDANT Augmentation mammoplasty Kayela [place] ESCALATOR ATTENDANT Augmentation mammoplasty J Luis Raleigh LABELING STRATEGIST Augmentation mammoplasty J Luis Raleigh LABELING STRATEGIST Augmentation mammoplasty J Luis Raleigh LABELING STRATEGIST Augmentation mammoplasty Amanda Slarb LABELING STRATEGIST Augmentation mammoplasty Patti Mike LABELING STRATEGIST Bacteria identified in Blood by Culture Dr. Shena Jeffers Work Phone: Bacteria identified in Blood by Culture Dr. Shena Jeffers Work Phone: Bacteria identified in Blood by Culture Dr. Shena Jeffers Work Phone: Cataract surgery Ruth Washingtoni s LABELING STRATEGIST Comment on above: bilateral Cataract surgery Saray Grav ius ESCALATOR ATTENDANT Comment on above: bilateral Cataract surgery Ruth William s LABELING STRATEGIST Comment on above: bilateral Cataract surgery Krystal Man chak ESCALATOR ATTENDANT Comment on above: bilateral Cataract surgery Saray Grav ius ESCALATOR ATTENDANT Comment on above: bilateral Cataract surgery Taylor varela MA Comment on above: bilateral Cataract surgery Saray Grav ius ESCALATOR ATTENDANT Comment on above: bilateral Cataract surgery Kayela Radf ord ESCALATOR ATTENDANT Comment on above: bilateral Cataract surgery Kayela Radf ord ESCALATOR ATTENDANT Comment on above: bilateral Cataract surgery Kayela Radf ord ESCALATOR ATTENDANT Comment on above: bilateral Cataract surgery Kayela Radf ord ESCALATOR ATTENDANT Comment on above: bilateral Cataract surgery Kayela Radf ord ESCALATOR ATTENDANT Comment on above: bilateral Cataract surgery J Luis Pryo r LABELING STRATEGIST Comment on above: bilateral Cataract surgery J Luis Pryo r LABELING STRATEGIST Comment on above: bilateral Cataract surgery J Luis Pryo r LABELING STRATEGIST Comment on above: bilateral Cataract surgery Amanda Slar b LABELING STRATEGIST Comment on above: bilateral Cataract surgery Patti Coffm an LABELING STRATEGIST Comment on above: bilateral Decompression of med kaya nerve Ruth Castellano LABELING STRATEGIST Decompression of med kaya nerve Saray Gravius ESCALATOR ATTENDANT Decompression of med kaya nerve Ruth Castellano LABELING STRATEGIST Decompression of med kaya nerve Krystal Manchak ESCALATOR ATTENDANT Decompression of med kaya nerve Saray Gravius ESCALATOR ATTENDANT Decompression of med kaay nerve Taylor Thrasher MA Decompression of med kaya nerve Saray Gravius ESCALATOR ATTENDANT Decompression of med kaya nerve Kayela [place] ESCALATOR ATTENDANT Decompression of med kaya nerve Kayela [place] ESCALATOR ATTENDANT Decompression of med kaya nerve Kayela [place] ESCALATOR ATTENDANT Decompression of med kaya nerve Kayela [place] ESCALATOR ATTENDANT Decompression of med kaya nerve Kayela [place] ESCALATOR ATTENDANT Decompression of med kaya nerve J Luis Ishmael LABELING STRATEGIST Decompression of med kaya nerve J Luis Ishmael LABELING STRATEGIST Decompression of med kaya nerve J Luis Ishmael LABELING STRATEGIST Decompression of med kaya nerve Amanda Slarb LABELING STRATEGIST Decompression of med kaya nerve Patti Mike LABELING STRATEGIST Legionella pneumophi la antigen assay Dr. Shena Jeffers Work Phone: Legionella pneumophi la antigen assay Dr. Shena Jeffers Work Phone: Ligation of fallopia n tube Ruth Castellano LABELING STRATEGIST Comment on above: 2017 Ligation of fallopia n tube Saray Gravius ESCALATOR ATTENDANT Comment on above: 2017 Ligation of fallopia n tube Ruth Castellano LABELING STRATEGIST Comment on above: 2017 Ligation of fallopia n tube Krystal Manchak ESCALATOR ATTENDANT Comment on above: 2017 Ligation of fallopia n tube Saray Gravius ESCALATOR ATTENDANT Comment on above: 2017 Ligation of fallopia n tube Taylor Thrasher MA Comment on above: 2017 Ligation of fallopia n tube Saray Gravius ESCALATOR ATTENDANT Comment on above: 2017 Ligation of fallopia n tube Atifa Afshan ESCALATOR ATTENDANT Comment on above: 2017 Ligation of fallopia n tube Atifa Afshan ESCALATOR ATTENDANT Comment on above: 2017 Ligation of fallopia n tube Kayela Afshan ESCALATOR ATTENDANT Comment on above: 2017 Ligation of fallopia n tube Kakayleena Afshan ESCALATOR ATTENDANT Comment on above: 2017 Ligation of fallopia n tube Atifa Afshan ESCALATOR ATTENDANT Comment on above: 2017 Ligation of fallopia n tube J Luis Raleigh LABELING STRATEGIST Comment on above: 2017 Ligation of fallopia n tube J Luis Ishmael LABELING STRATEGIST Comment on above: 2017 Ligation of fallopia n tube J Luis Raleigh LABELING STRATEGIST Comment on above: 2017 Ligation of fallopia n tube Amanda Slarb LABELING STRATEGIST Comment on above: 2017 Ligation of fallopia n tube Patti Mike LABELING STRATEGIST Comment on above: 2017 Respiratory Panel (PCR) Dr. Shena Jeffers Work Phone: SARS-CoV-2 & FLU Antigen (Rapid) Dr. Shena Jeffers Work Phone: SARS-CoV-2 & FLU Antigen (Rapid) Dr. Shena Jeffers Work Phone: Streptococcus pneumoniae Antigen (M Dr. Shena Jeffers Work Phone: Urine culture Dr. Shena amaya Work Phone: Urine culture Dr. Shena amaya Work Phone: Viral antigen assay Dr. Liliana Jeffers Work Phone: Plan of Treatment Date Care Activity Detail Author Start: 10-09-2024 Development of care plan [facility] Start: 10-09-2024 Patient discharge [facility] Start: 10-07-2024 [facility] Start: 10-01-2024 [facility] Start: 09-28-2024 [facility] Start: 09-19-2024 Urinary bladder residual urine study [facility] Start: 09-18-2024 Esophagogastroduodenoscopy transoral diagnostic [facility] Start: 09-18-2024 Patient discharge [facility] Start: 09-17-2024 Simple repair f/e/e/n[facility] Start: 09-17-[facility]24 End: 09-17-2024 [facility] Start: 09-17-2024 End: 09-17-2024 Referral to service [facility] Start: 09-17-2024 [facility] Start: 09-14-2024 Referral to gastroenterology service [facility] Start: 09-14-2024 Speech therapy management [facility] Start: 09-14-2024 Development of care plan [facility] Start: 09-14-2024 Developing a treatment plan [facility] Start: 09-14-2024 Oxygen therapy [facility] Start: 09-14-2024 Speech therapy assessment [facility] Start: 09-13-2024 Following clinical pathway protocol [facility] Start: 09-13-2024 Consultation [facility] Start: 09-13-2024 Admission procedure [facility] Start: 09-13-2024 Introduction of urinary catheter [facility] Start: 09-13-2024 Measuring intake and output [facility] Start: 09-13-2024 Patient referral to dietitian [facility] Start: 09-13-2024 Referral to occupational therapist [facility] Start: 09-13-2024 Referral to service [facility] Start: 09-13-2024 Vital signs measurements [facility] Start: 09-13-2024 [facility] Start: 09-13-2024 Patient discharge [facility] Start: 09-12-2024 Referral to service [facility] Start: 09-12-2024 Consultation [facility] Start: 09-11-2024 [facility] Start: 09-11-2024 Care planning and problem solving actions [facility] Start: 09-11-2024 Providing care according to standard [facility] Start: 09-10-2024 Assessment of risk of venous thromboembolism [facility] Start: 09-10-2024 Cardiac monitoring [facility] Start: 09-10-2024 Care regimes management [facility] Start: 09-10-2024 Catheterization of vein [facility] Start: 09-10-2024 Inhalation therapy procedure [facility] Start: 09-10-2024 Insertion of catheter into peripheral vein [facility] Start: 09-10-2024 Measuring intake and output [facility] Start: 09-10-2024 Notification of physician [facility] Start: 09-10-2024 Oxygen therapy [facility] Start: 09-10-2024 Patient referral to dietitian [facility] Start: 09-10-2024 Providing care according to standard [facility] Start: 09-10-2024 Referral to occupational therapist [facility] Start: 09-10-2024 Referral to service [facility] Start: 09-10-2024 Removal of urinary catheter [facility] Start: 09-10-2024 Vital signs measurements [facility] Start: 09-10-2024 End: 09-10-2024 [facility] Start: 09-10-2024 Admission procedure [facility] Start: 01-11-2024 End: 01-11-2024 [facility] Start: 08-04-2023 Procedure Education Eprescribed prescriptions (G8553) [facility] Work Phone: Start: 08-04-2023 Provider Instructions for Treatment Reviewed Lab [facility]; [facility] Work Phone: Start: 07-20-2023 Blood count complete auto&auto difrntl wbc CBC, PLATELETS & AUT DIFF (40907) [facility]; [facility] Work Phone: Start: 07-20-2023 Comprehensive metabolic panel METABOLIC PANEL, COMPREHENSIVE (74027) : 1 week [facility]; [facility] Work Phone: Start: 07-20-2023 Culture bacterial quanttative colony count urine URINE BRONWYN CULTURE (PANCHO COL COUNT) (29655) [facility]; [facility] Work Phone: Start: 07-20-2023 Procedure Education Eprescribed prescriptions (G8553) [facility]; [facility] Work Phone: Start: 07-20-2023 Renal function panel RENAL FUNCTION PANEL (73309) [facility]; [facility] Work Phone: Start: 07-01-2023 Patient discharge [facility] Start: 06-30-2023 Referral to service [facility] Start: 06-29-2023 Following clinical pathway protocol [facility] Start: 06-29-2023 Aspiration precautions [facility] Start: 06-29-2023 Assessment of risk of venous thromboembolism [facility] Start: 06-29-2023 Care regimes management [facility] Start: 06-29-2023 Fall prevention [facility] Start: 06-29-2023 Inhalation therapy procedure [facility] Start: 06-29-2023 Insertion of catheter into peripheral vein [facility] Start: 06-29-2023 Introduction of urinary catheter [facility] Start: 06-29-2023 Measuring intake and output [facility] Start: 06-29-2023 Notification of physician [facility] Start: 06-29-2023 Oxygen therapy [facility] Start: 06-29-2023 Providing care according to standard [facility] Start: 06-29-2023 Provision of activity privileges [facility] Start: 06-29-2023 Referral to occupational therapist [facility] Start: 06-29-2023 Referral to service [facility] Start: 06-29-2023 [facility] Start: 06-29-2023 Verification routine [facility] Start: 06-29-2023 Admission procedure [facility] Start: 06-29-2023 [facility] Start: 06-29-2023 End: 06-29-2023 Blood culture [facility] Start: 06-29-2023 Bacteria identified in Blood by Culture Blood Culture [facility] Start: 06-29-2023 Bacteria identified in Urine by Culture Urine Culture [facility] Start: 06-29-2023 Patient Education UTI, Female Adult [facility]; [facility] Work Phone: Start: 06-29-2023 Procedure Education Eprescribed prescriptions (G8553) [facility]; [facility] Work Phone: Start: 06-29-2023 Provider Instructions for Treatment [facility]; [facility] Work Phone: Start: 06-29-2023 Urine culture Urine Culture [facility] Start: 06-29-2023 Urnls dip stick/tablet reagent auto microscopy Urinalysis, Complete W/ Microscopic Examination with reflex to urine culture, routine (82315) [facility]; [facility] Work Phone: Start: 06-10-2023 Procedure Education Eprescribed prescriptions (G8553) [facility]; [facility] Work Phone: Start: 06-10-2023 Provider Instructions for Treatment [facility]; [facility] Work Phone: Start: 04-08-2023 Procedure Education Eprescribed prescriptions (G8553) [facility]; [facility] Work Phone: Start: 04-08-2023 Provider Instructions for Treatment [facility]; [facility] Work Phone: Start: 04-08-2023 25 hydroxy includes fractions if performed CALCIFIDIOL (64169) VIT D 25 [facility]; [facility] Work Phone: Start: 04-08-2023 Assay of thyroid stimulating hormone tsh TSH (70811) [facility]; [facility] Work Phone: Start: 04-08-2023 Blood count complete auto&auto difrntl wbc CBC W/AUTO DIFF WBC (34334) [facility]; [facility] Work Phone: Start: 04-08-2023 Urnls dip stick/tablet reagent auto microscopy URINALYSIS, W/ MICRO (07065) [facility]; [facility] Work Phone: Start: 04-08-2023 Urine albumin quantitative MICROALBUMIN: CREATININE RATIO (45091) AND (78505) [facility]; [facility] Work Phone: Start: 04-08-2023 Comprehensive metabolic panel METABOLIC PANEL, COMPREHENSIVE (28764) [facility]; [facility] Work Phone: Start: 04-07-2023 Screening mammography SCRN MAMM (CAD)W/SESAR BILAT [facility] Start: 03-28-2023 Iv infusion therapy/prophylaxis /dx 1st to 1 hr [facility] Start: 03-10-[facility]23 Procedure Education Eprescribed prescriptions (G8553) [facility]; [facility] Work Phone: Start: 03-10-2023 Provider Instructions for Treatment [facility]; [facility] Work Phone: Start: 02-10-2023 Procedure Education Eprescribed prescriptions (G8553) [facility]; [facility] Work Phone: Start: 02-10-2023 Provider Instructions for Treatment Continue Current Prescription(s) [facility]; [facility] Work Phone: Start: 01-13-2023 Procedure Education Eprescribed prescriptions (G8553) [facility]; [facility] Work Phone: Start: 12-02-2022 Assay of thyroid stimulating hormone tsh TSH (49103) [facility]; [facility] Work Phone: Comment on above: do in january Start: 12-02-2022 Procedure Education Eprescribed prescriptions (G8553) [facility]; [facility] Work Phone: Start: 12-02-2022 Provider Instructions for Treatment [facility]; [facility] Work Phone: Start: 12-02-2022 Assay of free thyroxine T4, FREE (THYROXINE) (46204) [facility]; [facility] Work Phone: Start: 12-02-2022 Assay of triiodothyronine t3 free T3, FREE (TRIDOTHYRONINE) (98881) [facility]; [facility] Work Phone: Start: 11-26-2022 Patient discharge [facility] Start: 11-26-2022 Procedure Education Eprescribed prescriptions (G8553) [facility]; [facility] Work Phone: Start: 11-26-2022 Provider Instructions for Treatment Reviewed Diagnostic Tests [facility]; [facility] Work Phone: Start: 11-26-2022 Referral to service [facility] Start: 11-24-2022 Following clinical pathway protocol [facility] Start: 11-23-2022 Oxygen therapy [facility] Start: 11-23-2022 Following clinical pathway protocol [facility] Start: 11-23-2022 Removal of urinary catheter [facility] Start: 11-22-2022 Following clinical pathway protocol [facility] Start: 11-22-2022 Assessment of risk of venous thromboembolism [facility] Start: 11-22-2022 Care regimes management [facility] Start: 11-22-2022 Elevation of head of bed [facility] Start: 11-22-2022 Insertion of catheter into peripheral vein [facility] Start: 11-22-2022 Patient education [facility] Start: 11-22-2022 Providing care according to standard [facility] Start: 11-22-2022 Provision of activity privileges [facility] Start: 11-22-2022 Referral to occupational therapist [facility] Start: 11-22-2022 Referral to service [facility] Start: 11-22-2022 [facility] Start: 11-22-2022 [facility] Start: 11-22-2022 Admission procedure [facility] Start: 11-22-2022 Blood culture [facility] Start: 10-28-2022 Procedure Education Eprescribed prescriptions (G8553) [facility]; [facility] Work Phone: Start: 09-11-2022 Blood chemistry [facility] Work Phone: Start: 09-10-2022 Patient discharge [facility] Start: 09-09-2022 Oxygen therapy [facility] Start: 09-09-2022 Referral to occupational therapist [facility] Start: 09-09-2022 Referral to service [facility] Start: 09-08-2022 Notification of physician [facility] Start: 09-08-2022 Following clinical pathway protocol [facility] Start: 09-08-[address] [facility] Start: 09-08-2022 Assessment of risk of venous thromboembolism [facility] Start: 09-08-2022 Care regimes management [facility] Start: 09-08-2022 Incentive spirometry [facility] Start: 09-08-2022 Insertion of catheter into peripheral vein [facility] Start: 09-08-2022 Measuring intake and output [facility] Start: 09-08-2022 Providing care according to standard [facility] Start: 09-08-2022 [facility] Start: 09-08-2022 Verification routine [facility] Work Phone: Start: 09-08-2022 Admission procedure [facility] Start: 09-08-2022 [facility] Work Phone: Start: 09-08-2022 Care regimes management [facility] Start: 09-08-2022 [facility] Start: 06-07-2022 Patient discharge [facility] Work Phone: Start: 06-07-2022 Referral to service [facility] Work Phone: Start: 06-05-2022 Referral to service [facility] Work Phone: Start: 06-05-2022 Oxygen therapy [facility] Work Phone: Start: 06-05-[address] [facility] Work Phone: Start: 06-05-2022 Assessment of risk of venous thromboembolism [facility] Work Phone: Start: 06-05-2022 Care regimes management [facility] Work Phone: Start: 06-05-2022 Elevation of head of bed [facility] Work Phone: Start: 06-05-2022 Incentive spirometry [facility] Work Phone: Start: 06-05-2022 Inhalation therapy procedure [facility] Work Phone: Start: 06-05-2022 Insertion of catheter into peripheral vein [facility] Work Phone: Start: 06-05-2022 Measuring intake and output [facility] Work Phone: Start: 06-05-2022 Notification of physician [facility] Work Phone: Start: 06-05-2022 Patient education [facility] Work Phone: Start: 06-05-2022 Providing care according to standard [facility] Work Phone: Start: 06-05-2022 Referral to occupational therapist [facility] Work Phone: Start: 06-05-2022 Referral to service [facility] Work Phone: Start: 06-05-2022 Bacteria identified in Sputum by Culture [facility] Work Phone: Start: 06-05-2022 Legionella pneumophila Ag [Presence] in Urine [facility] Work Phone: Start: 06-05-2022 Streptococcus pneumoniae antigen assay [facility] Work Phone: Start: 06-05-2022 Viral nucleic acid assay [facility] Work Phone: Start: 06-05-2022 End: 06-05-2022 [facility] Work Phone: Start: 06-05-2022 Verification routine [facility] Work Phone: Start: 06-05-2022 Following clinical pathway protocol [facility] Work Phone: Start: 06-05-2022 Admission procedure [facility] Work Phone: Start: 06-05-2022 Patient referral to dietitian [facility] Work Phone: Start: 06-05-2022 [facility] Work Phone: Start: 06-04-2022 End: 06-04-2022 [facility] Work Phone: Start: 06-04-2022 End: 06-04-2022 Blood culture [facility] Work Phone: Start: 06-03-2022 Procedure Education Eprescribed prescriptions (G8553) [facility]; [facility] Work Phone: Start: 06-03-2022 Natriuretic peptide BNTP (65693) [facility]; [facility] Work Phone: Start: 06-03-2022 Comprehensive metabolic panel METABOLIC PANEL, COMPREHENSIVE (68322) [facility]; [facility] Work Phone: Start: 06-03-2022 Blood count complete automated CBC (AUTO) (39800) [facility] Work Phone: Start: 03-01-2022 Procedure Education Eprescribed prescriptions (G8553) [facility]; [facility] Work Phone: Start: 02-11-2022 Procedure Education Eprescribed prescriptions (G8553) [facility]; [facility] Work Phone: Start: 02-11-2022 Provider Instructions for Treatment [facility]; [facility] Work Phone: Start: 02-10-2022 Patient discharge [facility] Work Phone: Start: 02-09-2022 [facility] Work Phone: Start: 02-09-2022 Inhalation therapy procedure [facility] Work Phone: Start: 02-08-2022 Referral to service [facility] Work Phone: Start: 02-07-2022 Notification of physician [facility] Work Phone: Start: 02-07-2022 Patient referral to dietitian [facility] Work Phone: Start: 02-07-2022 Care regimes management [facility] Work Phone: Start: 02-06-2022 [facility] Work Phone: Start: 02-06-2022 Following clinical pathway protocol [facility] Work Phone: Start: 02-06-2022 Assessment of risk of venous thromboembolism [facility] Work Phone: Start: 02-06-2022 Insertion of catheter into peripheral vein [facility] Work Phone: Start: 02-06-2022 Oxygen therapy [facility] Work Phone: Start: 02-06-2022 Providing care according to standard [facility] Work Phone: Start: 02-06-2022 Referral to occupational therapist [facility] Work Phone: Start: 02-06-2022 Referral to service [facility] Work Phone: Start: 02-06-2022 [facility] Work Phone: Start: 02-06-2022 Admission procedure [facility] Work Phone: Start: 01-30-2022 Referral to service [facility] Work Phone: Start: 01-30-2022 Patient discharge [facility] Work Phone: Start: 01-30-2022 [facility] Work Phone: Start: 01-29-2022 Referral to occupational therapist [facility] Work Phone: Start: 01-29-2022 Referral to service [facility] Work Phone: Start: 01-29-2022 Care planning and problem solving actions [facility] Work Phone: Start: 01-28-2022 [facility] Work Phone: Start: 01-28-2022 Bacteria identified in Blood by Culture Blood Culture [facility] Work Phone: Start: 01-28-2022 Application of intermittent pneumatic compression device [facility] Work Phone: Start: 01-28-2022 Aspiration precautions [facility] Work Phone: Start: 01-28-2022 Assessment of risk of venous thromboembolism [facility] Work Phone: Start: 01-28-2022 Consultation [facility] Work Phone: Start: 01-28-2022 Elevation of head of bed [facility] Work Phone: Start: 01-28-2022 Fall prevention [facility] Work Phone: Start: 01-28-2022 End: 01-28-2022 Following clinical pathway protocol [facility] Work Phone: Start: 01-28-2022 Incentive spirometry [facility] Work Phone: Start: 01-28-2022 Inhalation therapy procedure [facility] Work Phone: Start: 01-28-2022 Insertion of catheter into peripheral vein [facility] Work Phone: Start: 01-28-2022 Introduction of urinary catheter [facility] Work Phone: Start: 01-28-2022 Lab findings surveillance [facility] Work Phone: Start: 01-28-2022 Measuring intake and output [facility] Work Phone: Start: 01-28-2022 Notification of physician [facility] Work Phone: Start: 01-28-2022 Oxygen therapy [facility] Work Phone: Start: 01-28-2022 Patient education [facility] Work Phone: Start: 01-28-2022 End: 01-28-2022 Patient referral to dietitian [facility] Work Phone: Start: 01-28-2022 Providing care according to standard [facility] Work Phone: Start: 01-28-2022 Provision of activity privileges [facility] Work Phone: Start: 01-28-2022 Referral to service [facility] Work Phone: Start: 01-28-2022 Vital signs measurements [facility] Work Phone: Start: 01-28-2022 [facility] Work Phone: Start: 01-27-2022 Admission procedure [facility] Work Phone: Start: 01-20-2022 Procedure Education Eprescribed prescriptions (G8553) [facility]; [facility] Work Phone: Start: 01-20-2022 Provider Instructions for Treatment Follow up in 2 days [facility]; [facility] Work Phone: Start: 01-20-2022 Natriuretic peptide BNTP (17314) [facility]; [facility] Work Phone: Start: 01-20-2022 Fibrin dgradj products d-dimer quantitative D-Dimer (99080) [facility]; [facility] Work Phone: Start: 01-20-2022 Blood count complete automated CBC & PLATELETS (AUTO) (10343) [facility]; [facility] Work Phone: Start: 01-20-2022 Renal function panel RENAL FUNCTION PANEL (64042) [facility]; [facility] Work Phone: Start: 12-21-2021 Procedure Education Eprescribed prescriptions (G8553) [facility]; [facility] Work Phone: Start: 12-08-2021 Procedure Education Eprescribed prescriptions (G8553) [facility]; [facility] Work Phone: Start: 12-01-2021 Simple repair f/e/e/n/l/m 2.6cm-5.0 cm RPR F/E/E/N/L/M 2.6-5.0 CM [facility] Work Phone: Start: 11-27-2021 Procedure Education Eprescribed prescriptions (G8553) [facility]; [facility] Work Phone: Start: 11-27-2021 Provider Instructions for Treatment 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 [facility]; [facility] Work Phone: Start: 11-27-2021 Assay of thyroid stimulating hormone tsh TSH (THYROID STIMULATING HORMONE) (45454) [facility]; [facility] Work Phone: Start: 11-27-2021 Blood count complete auto&auto difrntl wbc CBC, Platelets & Auto Diff (00986) [facility]; [facility] Work Phone: Start: 11-27-2021 Comprehensive metabolic panel Metabolic Panel, Comprehensive (22666) [facility]; [facility] Work Phone: Start: 10-30-2021 Procedure Education Eprescribed prescriptions (G8553) [facility]; [facility] Work Phone: Start: 10-30-2021 Provider Instructions for Treatment Reviewed Diagnostic Tests [facility]; [facility] Work Phone: Start: 10-14-2021 Procedure Education Eprescribed prescriptions (G8553) [facility]; [facility] Work Phone: Start: 10-14-2021 Provider Instructions for Treatment [facility]; [facility] Work Phone: Start: 10-05-2021 Procedure Education Eprescribed prescriptions (G8553) [facility]; [facility] Work Phone: Start: 09-30-2021 Procedure Education Eprescribed prescriptions (G8553) [facility]; [facility] Work Phone: Start: 09-30-2021 Sedimentation rate rbc non-automated [facility]; [facility] Work Phone: Start: 09-30-2021 Fibrin dgradj products d-dimer quantitative D-Dimer (64503) [facility]; [facility] Work Phone: Start: 09-30-2021 C-reactive protein high sensitivity C-REACT PROT HIGH SENS(hsCRP) (42208) [facility]; [facility] Work Phone: Start: 08-19-2021 Procedure Education Eprescribed prescriptions (G8553) [facility]; [facility] Work Phone: Start: 08-19-2021 Provider Instructions for Treatment [facility]; [facility] Work Phone: Start: 07-22-2021 Procedure Education Eprescribed prescriptions (G8553) [facility]; [facility] Work Phone: Start: 07-22-2021 [place] Rapid Covid/ Flu A/ Flu B (78745) [facility]; [facility] Work Phone: Start: 07-15-2021 Procedure Education Eprescribed prescriptions (G8553) [facility]; [facility] Work Phone: Start: 07-15-2021 Provider Instructions for Treatment Follow up if no improvement or if symptoms worsen [facility]; [facility] Work Phone: Start: 07-15-2021 [place] Rapid Covid/ Flu A/ Flu B [facility]; [facility] Work Phone: Start: 07-10-2021 Procedure Education Eprescribed prescriptions (G8553) [facility]; [facility] Work Phone: Start: 07-10-2021 Provider Instructions for Treatment Reviewed [facility] Work Phone: Start: 05-27-2021 Procedure Education Eprescribed prescriptions (G8553) [facility] Work Phone: Start: 05-27-2021 Provider Instructions for Treatment [facility] Work Phone: Bacteria identified in Blood by Culture Blood Culture [facility] Work Phone: Bacteria identified in Blood by Culture Blood Culture [facility] Bacteria identified in Urine by Culture Urine Culture [facility] Work Phone: Bacteria identified in Urine by Culture [facility] Bilirubin measurement, urine [facility] Work Phone: Blood culture [facility] Work Phone: CBC W Auto Different ial panel - Blood [facility] Comprehensive metabo lic 2000 panel - Serum or Plasma [facility] DXA Bone [Mass/Area] Bone density [facility] Work Phone: Ferritin [Mass/volum e] in Serum or Plasma [facility] Folate [Moles/volume ] in Serum or Plasma [facility] Hemoglobin [Presence] in Urine [facility] Work Phone: Iron and Iron bindin g capacity panel - Serum or Plasma [facility] Lactate dehydrogenase measurement [facility] Measurement of keton es in urine using dipstick [facility] Work Phone: Microscopic urinalysis [facility] Work Phone: Patient Education [facility] Work Phone: Patient referral [facility] Work Phone: pH of Urine [facility] Work Phone: Specific gravity of Urine [facility] Work Phone: T4 free measurement [facility] Work Phone: T4 free measurement [facility] Thyroid stimulating hormone measurement [facility] Work Phone: Thyroid stimulating hormone measurement [facility] Urinalysis, blood, qualitative [facility] Work Phone: Urine dipstick for glucose [facility] Work Phone: Urine dipstick for l eukocyte esterase [facility] Work Phone: Urine dipstick for nitrite [facility] Work Phone: Urine dipstick for protein [facility] Work Phone: Urine examination [facility] Work Phone: Urine microscopy: ep ithelial cells [facility] Work Phone: Urine Microscopy: white cells [facility] Work Phone: Urobilinogen [Presence] in Urine [facility] Work Phone: [facility] Work Phone: [facility] Work Phone[facility] Work Phone: [facility] Work Phone: [facility] Work Phone: [facility] Work Phone: [facility] Work Phone[facility] Work Phone[facility] Work Phone: [facility] Work Phone: [facility] Work Phone[facility] Work Phone: [facility] Work Phone: [facility] Work Phone: [facility] Work Phone: [facility] Work Phone: [facility] Work Phone: [facility] Work Phone: [facility] Work Phone[facility] Work Phone: [facility] Work Phone: [facility] Work Phone: Immunizations Immunization Date Immunization Notes Care Provider [facility] 08-07-2022 influenza, injectabl e, quadrivalent, preservative free Dr. Shena Jeffers Work Phone: [facility] 08-07-2022 influenza, seasonal, injectable Dr. Shena Jeffers Work Phone: [facility] 09-29-2021 Covid (Moderna) Dr. Shena Jeffers Work Phone: [facility] 09-14-2021 Covid (Moderna) Dr. Shena Jeffers Work Phone: [facility] 08-20-[address] Shena Jeffers Work Phone: [facility] 02-11-2021 Covid (Moderna) Dr. Shena Jeffers Work Phone: [facility] 01-21-2021 Rigobertoid (Moderna) Dr. Shena Jeffers Work Phone: [facility] 12-22-2020 COVID-Moderna (100 MCG/0.5 ML) Shena Jeffers DO Work Phone: [facility] Work Phone: 10-24-2019 tetanus toxoid, redu andrés diphtheria toxoid, and acellular pertussis vaccine, adsorbed Shena Jeffers DO Work Phone: [facility] Work Phone: 10-24-2017 pneumococcal polysaccharide vaccine, 23 valent Shena Jeffers DO Work Phone: [facility] Work Phone: 10-24-2017 zoster vaccine, live Yoshi Jeffers DO Work Phone: [facility] Work Phone: Payers Date Payer Category Payer Self-pay [id number] 2021 Medicare [id number] 2021 Unknown [id number] 1945 Unknown [id number] 2.16.84 0.1.289643.3.579.2.716 Unknown Unknown [id number] 2.16.8 40.1.885990.3.579.2.462 Unknown [id number] 2.16.8 40.1.262531.3.579.2.462 Unknown [id number] 2.16.8 40.1.702542.3.579.2.462 Unknown [id number] 2.16.8 40.1.598063.3.579.2.462 Unknown [id number] 2.16.8 40.1.031798.3.579.2.462 Unknown [id number] 2.16.8 40.1.791016.3.579.2.462 Unknown [id number] 2.16.8 40.1.625770.3.579.2.462 Unknown [id number] 2.16.8 40.1.462813.3.579.2.462 Unknown [id number] 2.16.8 40.1.849877.3.579.2.462 Unknown [id number] 2.16.8 40.1.692839.3.579.2.462 Unknown [id number] 2.16.8 40.1.151478.3.579.2.462 Unknown [id number] 2.16.8 40.1.193646.3.579.2.462 Unknown [id number] 2.16.8 40.1.620688.3.579.2.462 Unknown [id number] 2.16.8 40.1.680086.3.579.2.462 Unknown [id number] 2.16.8 40.1.773352.3.579.2.462 Unknown [id number] 2.16.8 40.1.141765.3.579.2.462 Unknown [id number] 2.16.8 40.1.731149.3.579.2.462 Unknown [id number] 2.16.8 40.1.958042.3.579.2.462 Unknown [id number] 2.16.8 40.1.958619.3.579.2.462 Unknown [id number] 2.16.8 40.1.938344.3.579.2.462 Unknown [id number] 2.16.8 40.1.185248.3.579.2.462 Unknown [id number] 2.16.8 40.1.172495.3.579.2.462 Unknown [id number] 2.16.8 40.1.062311.3.579.2.462 Unknown [id number] 2.16.8 40.1.417005.3.579.2.462 Unknown [id number] 2.16.8 40.1.540594.3.579.2.462 Unknown [id number] 2.16.8 40.1.523707.3.579.2.462 Unknown [id number] 2.16.8 40.1.170875.3.579.2.462 Unknown [id number] 2.16.8 40.1.760416.3.579.2.462 Unknown [id number] 2.16.8 40.1.323524.3.579.2.462 Unknown [id number] 2.16.8 40.1.517100.3.579.2.462 Unknown [id number] 2.16.8 40.1.041457.3.579.2.462 Unknown [id number] 2.16.8 40.1.620561.3.579.2.462 Unknown [id number] 2.16.8 40.1.158679.3.579.2.462 Unknown [id number] 2.16.8 40.1.466975.3.579.2.462 Unknown [id number] 2.16.8 40.1.220715.3.579.2.462 Unknown [id number] 2.16.8 40.1.587730.3.579.2.462 Unknown [id number] 2.16.8 40.1.381437.3.579.2.462 Unknown [id number] 2.16.8 40.1.973211.3.579.2.462 Social History Date Type Detail Facility Living Situation: Living Situation: [facility] Work Phone: No Drug Use No Drug Use [facility] Work Phone: Comment on above: currently--1/2 ppd f or 38 yrs Start: 01-27-2022 End: 01-11-2024 Tobacco smoking status NHIS Unknown if ever smoked [facility] Start: 1945 Sex Assigned At Female [facility] Start: 09-17-2024 End: 02-13-2025 Tobacco smoking status NHIS Ex-smoker (finding) [facility] Start: 01-01-2025 Sex Female (finding) [facility] Medical Equipment Procedure Code Equipment Code Equipment Origin al Text Equipment Identifier Dates Accu-Chek Katie Plus In Vitro Strip 1 (one) Each checks daily for 0 days Quantity: 100 {Each} Refills: 0 Ordered: 30-Sep-2021 Patti Mckeon LPN Start : 30-Sep-2021 Active Comments: E11.65checks daily along with pump Start: 09-30-2021 Comment on above: E11.65checks daily a long with pump Contour Next Patsy t In Vitro Strip 1 (one) Each use as directed for 0 days Quantity: 100 {Strip} Refills: 3 Ordered: 30-Sep-2021 Ruth Castellano LPN Start : 30-Sep-2021 End : 30-Sep-2021 Inactive Comments: E11.65checks PRN along with insulin pump Start: 09-30-2021 End: 09-30-2021 Comment on above: E11.65checks PRN tha ng with insulin pump Accu-Chek Katie Plus In Vitro Strip 1 (one) Each checks daily for 0 days Quantity: 100 {Each} Refills: 0 Ordered: 30-Sep-2021 Patti Mckeon LPN Start : 30-Sep-2021 Active Comments: E11.65checks daily along with pump Start: 09-30-2021 Comment on above: E11.65checks daily a long with pump Contour Next Patsy t In Vitro Strip 1 (one) Each use as directed for 0 days Quantity: 100 {Strip} Refills: 3 Ordered: 30-Sep-2021 Ruth Castellano LPN Start : 30-Sep-2021 End : 30-Sep-2021 Inactive Comments: E11.65checks PRN along with insulin pump Start: 09-30-2021 End: 09-30-2021 Comment on above: E11.65checks PRN tha ng with insulin pump Accu-Chek Katie Plus In Vitro Strip 1 (one) Each checks daily for 0 days Quantity: 100 {Each} Refills: 0 Ordered: 30-Sep-2021 Mike WEBB Patti Start : 30-Sep-2021 Active Comments: E11.65checks daily along with pump Start: 09-30-2021 Comment on above: E11.65checks daily a long with pump Contour Next Patsy t In Vitro Strip 1 (one) Each use as directed for 0 days Quantity: 100 {Strip} Refills: 3 Ordered: 30-Sep-2021 Ruth Castellano LPN Start : 30-Sep-2021 End : 30-Sep-2021 Inactive Comments: E11.65checks PRN along with insulin pump Start: 09-30-2021 End: 09-30-2021 Comment on above: E11.65checks PRN tha ng with insulin pump Accu-Chek Katie Plus In Vitro Strip 1 (one) Each checks daily for 0 days Quantity: 100 {Each} Refills: 0 Ordered: 30-Sep-2021 Jonny Mckeon LPNcy Start : 30-Sep-2021 Active Comments: E11.65checks daily along with pump Start: 09-30-2021 Comment on above: E11.65checks daily a long with pump Contour Next Patsy t In Vitro Strip 1 (one) Each use as directed for 0 days Quantity: 100 {Strip} Refills: 3 Ordered: 30-Sep-2021 Ruth Castellano LPN Start : 30-Sep-2021 End : 30-Sep-2021 Inactive Comments: E11.65checks PRN along with insulin pump Start: 09-30-2021 End: 09-30-2021 Comment on above: E11.65checks PRN tha ng with insulin pump Accu-Chek Katie Plus In Vitro Strip 1 (one) Each checks daily for 0 days Quantity: 100 {Each} Refills: 0 Ordered: 30-Sep-2021 Mike WEBB Patti Start : 30-Sep-2021 Active Comments: E11.65checks daily along with pump Start: 09-30-2021 Comment on above: E11.65checks daily a long with pump Contour Next Patsy t In Vitro Strip 1 (one) Each use as directed for 0 days Quantity: 100 {Strip} Refills: 3 Ordered: 30-Sep-2021 Ruth Castellano LPN Start : 30-Sep-2021 End : 30-Sep-2021 Inactive Comments: E11.65checks PRN along with insulin pump Start: 09-30-2021 End: 09-30-2021 Comment on above: E11.65checks PRN tha ng with insulin pump Accu-Chek Katie Plus In Vitro Strip 1 (one) Each checks daily for 0 days Quantity: 100 {Each} Refills: 0 Ordered: 30-Sep-2021 Patti Mckeon LPN Start : 30-Sep-2021 Active Comments: E11.65checks daily along with pump Start: 09-30-2021 Comment on above: E11.65checks daily a long with pump Contour Next Patsy t In Vitro Strip 1 (one) Each use as directed for 0 days Quantity: 100 {Strip} Refills: 3 Ordered: 30-Sep-2021 Ruth Castellano LPN Start : 30-Sep-2021 End : 30-Sep-2021 Inactive Comments: E11.65checks PRN along with insulin pump Start: 09-30-2021 End: 09-30-2021 Comment on above: E11.65checks PRN tha ng with insulin pump Accu-Chek Katie Plus In Vitro Strip 1 (one) Each checks daily for 0 days Quantity: 100 {Each} Refills: 0 Ordered: 30-Sep-2021 Patti Mckeon LPN Start : 30-Sep-2021 Active Comments: E11.65checks daily along with pump Start: 09-30-2021 Comment on above: E11.65checks daily a long with pump Contour Next Patsy t In Vitro Strip 1 (one) Each use as directed for 0 days Quantity: 100 {Strip} Refills: 3 Ordered: 30-Sep-2021 Ruth Castellano LPN Start : 30-Sep-2021 End : 30-Sep-2021 Inactive Comments: E11.65checks PRN along with insulin pump Start: 09-30-2021 End: 09-30-2021 Comment on above: E11.65checks PRN tha ng with insulin pump Accu-Chek Katie Plus In Vitro Strip 1 (one) Each checks daily for 0 days Quantity: 100 {Each} Refills: 0 Ordered: 30-Sep-2021 Patti Mckeon LPN Start : 30-Sep-2021 Active Comments: E11.65checks daily along with pump Start: 09-30-2021 Comment on above: E11.65checks daily a long with pump Contour Next Patsy t In Vitro Strip 1 (one) Each use as directed for 0 days Quantity: 100 {Strip} Refills: 3 Ordered: 30-Sep-2021 Ruth Castellano LPN Start : 30-Sep-2021 End : 30-Sep-2021 Inactive Comments: E11.65checks PRN along with insulin pump Start: 09-30-2021 End: 09-30-2021 Comment on above: E11.65checks PRN tha ng with insulin pump Accu-Chek Katie Plus In Vitro Strip 1 (one) Each checks daily for 0 days Quantity: 100 {Each} Refills: 0 Ordered: 30-Sep-2021 Patti Mckeon LPN Start : 30-Sep-2021 Active Comments: E11.65checks daily along with pump Start: 09-30-2021 Comment on above: E11.65checks daily a long with pump Contour Next Patsy t In Vitro Strip 1 (one) Each use as directed for 0 days Quantity: 100 {Strip} Refills: 3 Ordered: 30-Sep-2021 Ruth Castellano LPN Start : 30-Sep-2021 End : 30-Sep-2021 Inactive Comments: E11.65checks PRN along with insulin pump Start: 09-30-2021 End: 09-30-2021 Comment on above: E11.65checks PRN tha ng with insulin pump Accu-Chek Katie Plus In Vitro Strip 1 (one) Each checks daily for 0 days Quantity: 100 {Each} Refills: 0 Ordered: 30-Sep-2021 Patti Mckeon LPN Start : 30-Sep-2021 Active Comments: E11.65checks daily along with pump Start: 09-30-2021 Comment on above: E11.65checks daily a long with pump Contour Next Patsy t In Vitro Strip 1 (one) Each use as directed for 0 days Quantity: 100 {Strip} Refills: 3 Ordered: 30-Sep-2021 Ruth Castellano LPN Start : 30-Sep-2021 End : 30-Sep-2021 Inactive Comments: E11.65checks PRN along with insulin pump Start: 09-30-2021 End: 09-30-2021 Comment on above: E11.65checks PRN tha ng with insulin pump Accu-Chek Katie Plus In Vitro Strip 1 (one) Each checks daily for 0 days Quantity: 100 {Each} Refills: 0 Ordered: 30-Sep-2021 Patti Mckeon LPN Start : 30-Sep-2021 Active Comments: E11.65checks daily along with pump Start: 09-30-2021 Comment on above: E11.65checks daily a long with pump Contour Next Patsy t In Vitro Strip 1 (one) Each use as directed for 0 days Quantity: 100 {Strip} Refills: 3 Ordered: 30-Sep-2021 Ruth Castellano LPN Start : 30-Sep-2021 End : 30-Sep-2021 Inactive Comments: E11.65checks PRN along with insulin pump Start: 09-30-2021 End: 09-30-2021 Comment on above: E11.65checks PRN tha ng with insulin pump Accu-Chek Katie Plus In Vitro Strip 1 (one) Each checks daily for 0 days Quantity: 100 {Each} Refills: 0 Ordered: 30-Sep-2021 Patti Mckeon LPN Start : 30-Sep-2021 Active Comments: E11.65checks daily along with pump Start: 09-30-2021 Comment on above: E11.65checks daily a long with pump Contour Next Patsy t In Vitro Strip 1 (one) Each use as directed for 0 days Quantity: 100 {Strip} Refills: 3 Ordered: 30-Sep-2021 Ruth Castellano LPN Start : 30-Sep-2021 End : 30-Sep-2021 Inactive Comments: E11.65checks PRN along with insulin pump Start: 09-30-2021 End: 09-30-2021 Comment on above: E11.65checks PRN tha ng with insulin pump Accu-Chek Katie Plus In Vitro Strip 1 (one) Each checks daily for 0 days Quantity: 100 {Each} Refills: 0 Ordered: 30-Sep-2021 Patti Mckeon LPN Start : 30-Sep-2021 Active Comments: E11.65checks daily along with pump Start: 09-30-2021 Comment on above: E11.65checks daily a long with pump Contour Next Patsy t In Vitro Strip 1 (one) Each use as directed for 0 days Quantity: 100 {Strip} Refills: 3 Ordered: 30-Sep-2021 Ruth Castellano LPN Start : 30-Sep-2021 End : 30-Sep-2021 Inactive Comments: E11.65checks PRN along with insulin pump Start: 09-30-2021 End: 09-30-2021 Comment on above: E11.65checks PRN tha ng with insulin pump Accu-Chek Katie Plus In Vitro Strip 1 (one) Each checks daily for 0 days Quantity: 100 {Each} Refills: 0 Ordered: 30-Sep-2021 Patti Mckeon LPN Start : 30-Sep-2021 Active Comments: E11.65checks daily along with pump Start: 09-30-2021 Comment on above: E11.65checks daily a long with pump Contour Next Patsy t In Vitro Strip 1 (one) Each use as directed for 0 days Quantity: 100 {Strip} Refills: 3 Ordered: 30-Sep-2021 Ruth Castellano LPN Start : 30-Sep-2021 End : 30-Sep-2021 Inactive Comments: E11.65checks PRN along with insulin pump Start: 09-30-2021 End: 09-30-2021 Comment on above: E11.65checks PRN tha ng with insulin pump Accu-Chek Katie Plus In Vitro Strip 1 (one) Each checks daily for 0 days Quantity: 100 {Each} Refills: 0 Ordered: 30-Sep-2021 Patti Mckeon LPN Start : 30-Sep-2021 Active Comments: E11.65checks daily along with pump Start: 09-30-2021 Comment on above: E11.65checks daily a long with pump Contour Next Patsy t In Vitro Strip 1 (one) Each use as directed for 0 days Quantity: 100 {Strip} Refills: 3 Ordered: 30-Sep-2021 Ruth Castellano LPN Start : 30-Sep-2021 End : 30-Sep-2021 Inactive Comments: E11.65checks PRN along with insulin pump Start: 09-30-2021 End: 09-30-2021 Comment on above: E11.65checks PRN tha ng with insulin pump Accu-Chek Katie Plus In Vitro Strip 1 (one) Each checks daily for 0 days Quantity: 100 {Each} Refills: 0 Ordered: 30-Sep-2021 Patti Mckeon LPN Start : 30-Sep-2021 Active Comments: E11.65checks daily along with pump Start: 09-30-2021 Comment on above: E11.65checks daily a long with pump Contour Next Patsy t In Vitro Strip 1 (one) Each use as directed for 0 days Quantity: 100 {Strip} Refills: 3 Ordered: 30-Sep-2021 Ruth Castellano LPN Start : 30-Sep-2021 End : 30-Sep-2021 Inactive Comments: E11.65checks PRN along with insulin pump Start: 09-30-2021 End: 09-30-2021 Comment on above: E11.65checks PRN tha ng with insulin pump Accu-Chek Katie Plus In Vitro Strip 1 (one) Each checks daily for 0 days Quantity: 100 {Each} Refills: 0 Ordered: 30-Sep-2021 Patti Mckeon LPN Start : 30-Sep-2021 Active Comments: E11.65checks daily along with pump Start: 09-30-2021 Comment on above: E11.65checks daily a long with pump Contour Next Patsy t In Vitro Strip 1 (one) Each use as directed for 0 days Quantity: 100 {Strip} Refills: 3 Ordered: 30-Sep-2021 Ruth Castellano LPN Start : 30-Sep-2021 End : 30-Sep-2021 Inactive Comments: E11.65checks PRN along with insulin pump Start: 09-30-2021 End: 09-30-2021 Comment on above: E11.65checks PRN tha ng with insulin pump Accu-Chek Katie Plus In Vitro Strip 1 (one) Each checks daily for 0 days Quantity: 100 {Each} Refills: 0 Ordered: 30-Sep-2021 Patti Mckeon LPN Start : 30-Sep-2021 Active Comments: E11.65checks daily along with pump Start: 09-30-2021 Comment on above: E11.65checks daily a long with pump Contour Next Patsy t In Vitro Strip 1 (one) Each use as directed for 0 days Quantity: 100 {Strip} Refills: 3 Ordered: 30-Sep-2021 Ruth Castellano LPN Start : 30-Sep-2021 End : 30-Sep-2021 Inactive Comments: E11.65checks PRN along with insulin pump Start: 09-30-2021 End: 09-30-2021 Comment on above: E11.65checks PRN tha ng with insulin pump Accu-Chek Katie Plus In Vitro Strip 1 (one) Each checks daily for 0 days Quantity: 100 {Each} Refills: 0 Ordered: 30-Sep-2021 Patti Mckeon LPN Start : 30-Sep-2021 Active Comments: E11.65checks daily along with pump Start: 09-30-2021 Comment on above: E11.65checks daily a long with pump Contour Next Patsy t In Vitro Strip 1 (one) Each use as directed for 0 days Quantity: 100 {Strip} Refills: 3 Ordered: 30-Sep-2021 Ruth Castellano LPN Start : 30-Sep-2021 End : 30-Sep-2021 Inactive Comments: E11.65checks PRN along with insulin pump Start: 09-30-2021 End: 09-30-2021 Comment on above: E11.65checks PRN tha ng with insulin pump Accu-Chek Katie Plus In Vitro Strip 1 (one) Each checks daily for 0 days Quantity: 100 {Each} Refills: 0 Ordered: 30-Sep-2021 Patti Mckeon LPN Start : 30-Sep-2021 Active Comments: E11.65checks daily along with pump Start: 09-30-2021 Comment on above: E11.65checks daily a long with pump Contour Next Patsy t In Vitro Strip 1 (one) Each use as directed for 0 days Quantity: 100 {Strip} Refills: 3 Ordered: 30-Sep-2021 Ruth Castellano LPN Start : 30-Sep-2021 End : 30-Sep-2021 Inactive Comments: E11.65yovanys PRN along with insulin pump Start: 09-30-2021 End: 09-30-2021 Comment on above: E11.65magdycks PRN tha ng with insulin pump Accu-Chek Katie Plus In Vitro Strip 1 (one) Each checks daily for 0 days Quantity: 100 {Each} Refills: 0 Ordered: 30-Sep-2021 Patti Mckeon LPN Start : 30-Sep-2021 Active Comments: E11.65checks daily along with pump Start: 09-30-2021 Comment on above: E11.65checks daily a long with pump Contour Next Patsy t In Vitro Strip 1 (one) Each use as directed for 0 days Quantity: 100 {Strip} Refills: 3 Ordered: 30-Sep-2021 Ruth Castellano LPN Start : 30-Sep-2021 End : 30-Sep-2021 Inactive Comments: E11.65magdycks PRN along with insulin pump Start: 09-30-2021 End: 09-30-2021 Comment on above: E11.65yovanys PRN tha ng with insulin pump Accu-Chek Katie Plus In Vitro Strip 1 (one) Each checks daily for 0 days Quantity: 100 {Each} Refills: 0 Ordered: 30-Sep-2021 Patti Mckeon LPN Start : 30-Sep-2021 Active Comments: E11.65checks daily along with pump Start: 09-30-2021 Comment on above: E11.65checks daily a long with pump Contour Next Patsy t In Vitro Strip 1 (one) Each use as directed for 0 days Quantity: 100 {Strip} Refills: 3 Ordered: 30-Sep-2021 Ruth Castellano LPN Start : 30-Sep-2021 End : 30-Sep-2021 Inactive Comments: E11.65magdycks PRN along with insulin pump Start: 09-30-2021 End: 09-30-2021 Comment on above: E11.65magdycks PRN tha ng with insulin pump Accu-Chek Katie Plus In Vitro Strip 1 (one) Each checks daily for 0 days Quantity: 100 {Each} Refills: 0 Ordered: 30-Sep-2021 Patti Mckeon LPN Start : 30-Sep-2021 Active Comments: E11.65checks daily along with pump Start: 09-30-2021 Comment on above: E11.65checks daily a long with pump Contour Next Patsy t In Vitro Strip 1 (one) Each use as directed for 0 days Quantity: 100 {Strip} Refills: 3 Ordered: 30-Sep-2021 Ruth Castellano LPN Start : 30-Sep-2021 End : 30-Sep-2021 Inactive Comments: E11.65checks PRN along with insulin pump Start: 09-30-2021 End: 09-30-2021 Comment on above: E11.65checks PRN tha ng with insulin pump Accu-Chek Katie Plus In Vitro Strip 1 (one) Each checks daily for 0 days Quantity: 100 {Each} Refills: 0 Ordered: 30-Sep-2021 Patti Mckeon LPN Start : 30-Sep-2021 Active Comments: E11.65checks daily along with pump Start: 09-30-2021 Comment on above: E11.65checks daily a long with pump Contour Next Patsy t In Vitro Strip 1 (one) Each use as directed for 0 days Quantity: 100 {Strip} Refills: 3 Ordered: 30-Sep-2021 Ruth Castellano LPN Start : 30-Sep-2021 End : 30-Sep-2021 Inactive Comments: E11.65checks PRN along with insulin pump Start: 09-30-2021 End: 09-30-2021 Comment on above: E11.65checks PRN tha ng with insulin pump Accu-Chek Katie Plus In Vitro Strip 1 (one) Each checks daily for 0 days Quantity: 100 {Each} Refills: 0 Ordered: 30-Sep-2021 Patti Mckeon LPN Start : 30-Sep-2021 Active Comments: E11.65checks daily along with pump Start: 09-30-2021 Comment on above: E11.65checks daily a long with pump Contour Next Patsy t In Vitro Strip 1 (one) Each use as directed for 0 days Quantity: 100 {Strip} Refills: 3 Ordered: 30-Sep-2021 Ruth Castellano LPN Start : 30-Sep-2021 End : 30-Sep-2021 Inactive Comments: E11.65checks PRN along with insulin pump Start: 09-30-2021 End: 09-30-2021 Comment on above: E11.65checks PRN tha ng with insulin pump Accu-Chek Katie Plus In Vitro Strip 1 (one) Each checks daily for 0 days Quantity: 100 {Each} Refills: 0 Ordered: 30-Sep-2021 Patti Mckeon LPN Start : 30-Sep-2021 Active Comments: E11.65checks daily along with pump Start: 09-30-2021 Comment on above: E11.65checks daily a long with pump Contour Next Patsy t In Vitro Strip 1 (one) Each use as directed for 0 days Quantity: 100 {Strip} Refills: 3 Ordered: 30-Sep-2021 Ruth Castellano LPN Start : 30-Sep-2021 End : 30-Sep-2021 Inactive Comments: E11.65checks PRN along with insulin pump Start: 09-30-2021 End: 09-30-2021 Comment on above: E11.65checks PRN tha ng with insulin pump Accu-Chek Katie Plus In Vitro Strip 1 (one) Each checks daily for 0 days Quantity: 100 {Each} Refills: 0 Ordered: 30-Sep-2021 Patti Mckeon LPN Start : 30-Sep-2021 Active Comments: E11.65checks daily along with pump Start: 09-30-2021 Comment on above: E11.65checks daily a long with pump Contour Next Patsy t In Vitro Strip 1 (one) Each use as directed for 0 days Quantity: 100 {Strip} Refills: 3 Ordered: 30-Sep-2021 Ruth Castellano LPN Start : 30-Sep-2021 End : 30-Sep-2021 Inactive Comments: E11.65checks PRN along with insulin pump Start: 09-30-2021 End: 09-30-2021 Comment on above: E11.65checks PRN tha ng with insulin pump Accu-Chek Katie Plus In Vitro Strip 1 (one) Each checks daily for 0 days Quantity: 100 {Each} Refills: 0 Ordered: 30-Sep-2021 Patti Mckeon LPN Start : 30-Sep-2021 Active Comments: E11.65checks daily along with pump Start: 09-30-2021 Comment on above: E11.65checks daily a long with pump Contour Next Patsy t In Vitro Strip 1 (one) Each use as directed for 0 days Quantity: 100 {Strip} Refills: 3 Ordered: 30-Sep-2021 Ruth Castellano LPN Start : 30-Sep-2021 End : 30-Sep-2021 Inactive Comments: E11.65checks PRN along with insulin pump Start: 09-30-2021 End: 09-30-2021 Comment on above: E11.65checks PRN tha ng with insulin pump Accu-Chek Katie Plus In Vitro Strip 1 (one) Each checks daily for 0 days Quantity: 100 {Each} Refills: 0 Ordered: 30-Sep-2021 Patti Mckeon LPN Start : 30-Sep-2021 Active Comments: E11.65checks daily along with pump Start: 09-30-2021 Comment on above: E11.65checks daily a long with pump Contour Next Patsy t In Vitro Strip 1 (one) Each use as directed for 0 days Quantity: 100 {Strip} Refills: 3 Ordered: 30-Sep-2021 Ruth Castellano LPN Start : 30-Sep-2021 End : 30-Sep-2021 Inactive Comments: E11.65checks PRN along with insulin pump Start: 09-30-2021 End: 09-30-2021 Comment on above: E11.65checks PRN tha ng with insulin pump Accu-Chek Katie Plus In Vitro Strip 1 (one) Each checks daily for 0 days Quantity: 100 {Each} Refills: 0 Ordered: 30-Sep-2021 Patti Mckeon LPN Start : 30-Sep-2021 Active Comments: E11.65checks daily along with pump Start: 09-30-2021 Comment on above: E11.65checks daily a long with pump Contour Next Patsy t In Vitro Strip 1 (one) Each use as directed for 0 days Quantity: 100 {Strip} Refills: 3 Ordered: 30-Sep-2021 Ruth Castellano LPN Start : 30-Sep-2021 End : 30-Sep-2021 Inactive Comments: E11.65checks PRN along with insulin pump Start: 09-30-2021 End: 09-30-2021 Comment on above: E11.65checks PRN tha ng with insulin pump Accu-Chek Katie Plus In Vitro Strip 1 (one) Each checks daily for 0 days Quantity: 100 {Each} Refills: 0 Ordered: 30-Sep-2021 Patti Mckeon LPN Start : 30-Sep-2021 Active Comments: E11.65checks daily along with pump Start: 09-30-2021 Comment on above: E11.65checks daily a long with pump Contour Next Patsy t In Vitro Strip 1 (one) Each use as directed for 0 days Quantity: 100 {Strip} Refills: 3 Ordered: 30-Sep-2021 Ruth aCstellano LPN Start : 30-Sep-2021 End : 30-Sep-2021 Inactive Comments: E11.65checks PRN along with insulin pump Start: 09-30-2021 End: 09-30-2021 Comment on above: E11.65checks PRN tha ng with insulin pump Accu-Chek Katie Plus In Vitro Strip 1 (one) Each checks daily for 0 days Quantity: 100 {Each} Refills: 0 Ordered: 30-Sep-2021 Patti Mckeon LPN Start : 30-Sep-2021 Active Comments: E11.65checks daily along with pump Start: 09-30-2021 Comment on above: E11.65checks daily a long with pump Contour Next Patsy t In Vitro Strip 1 (one) Each use as directed for 0 days Quantity: 100 {Strip} Refills: 3 Ordered: 30-Sep-2021 Ruth Castellano LPN Start : 30-Sep-2021 End : 30-Sep-2021 Inactive Comments: E11.65checks PRN along with insulin pump Start: 09-30-2021 End: 09-30-2021 Comment on above: E11.65checks PRN tha ng with insulin pump Accu-Chek Katie Plus In Vitro Strip 1 (one) Each checks daily for 0 days Quantity: 100 {Each} Refills: 0 Ordered: 30-Sep-2021 Patti Mckeon LPN Start : 30-Sep-2021 Active Comments: E11.65checks daily along with pump Start: 09-30-2021 Comment on above: E11.65checks daily a long with pump Contour Next Patsy t In Vitro Strip 1 (one) Each use as directed for 0 days Quantity: 100 {Strip} Refills: 3 Ordered: 30-Sep-2021 Ruth Castellano LPN Start : 30-Sep-2021 End : 30-Sep-2021 Inactive Comments: E11.65checks PRN along with insulin pump Start: 09-30-2021 End: 09-30-2021 Comment on above: E11.65checks PRN tha ng with insulin pump Accu-Chek Katie Plus In Vitro Strip 1 (one) Each checks daily for 0 days Quantity: 100 {Each} Refills: 0 Ordered: 30-Sep-2021 Patti Mckeon LPN Start : 30-Sep-2021 Active Comments: E11.65checks daily along with pump Start: 09-30-2021 Comment on above: E11.65checks daily a long with pump Contour Next Patsy t In Vitro Strip 1 (one) Each use as directed for 0 days Quantity: 100 {Strip} Refills: 3 Ordered: 30-Sep-2021 Ruth Castellano LPN Start : 30-Sep-2021 End : 30-Sep-2021 Inactive Comments: E11.65checks PRN along with insulin pump Start: 09-30-2021 End: 09-30-2021 Comment on above: E11.65checks PRN tha ng with insulin pump Accu-Chek Katie Plus In Vitro Strip 1 (one) Each checks daily for 0 days Quantity: 100 {Each} Refills: 0 Ordered: 30-Sep-2021 Patti Mckeon LPN Start : 30-Sep-2021 Active Comments: E11.65checks daily along with pump Start: 09-30-2021 Comment on above: E11.65checks daily a long with pump Contour Next Patsy t In Vitro Strip 1 (one) Each use as directed for 0 days Quantity: 100 {Strip} Refills: 3 Ordered: 30-Sep-2021 Ruth Castellano LPN Start : 30-Sep-2021 End : 30-Sep-2021 Inactive Comments: E11.65checks PRN along with insulin pump Start: 09-30-2021 End: 09-30-2021 Comment on above: E11.65checks PRN tha ng with insulin pump Accu-Chek Katie Plus In Vitro Strip 1 (one) Each checks daily for 0 days Quantity: 100 {Each} Refills: 0 Ordered: 30-Sep-2021 Patti Mckeon LPN Start : 30-Sep-2021 Active Comments: E11.65checks daily along with pump Start: 09-30-2021 Comment on above: E11.65checks daily a long with pump Contour Next Patsy t In Vitro Strip 1 (one) Each use as directed for 0 days Quantity: 100 {Strip} Refills: 3 Ordered: 30-Sep-2021 Ruth Castellano LPN Start : 30-Sep-2021 End : 30-Sep-2021 Inactive Comments: E11.65checks PRN along with insulin pump Start: 09-30-2021 End: 09-30-2021 Comment on above: E11.65checks PRN tha ng with insulin pump Accu-Chek Katie Plus In Vitro Strip 1 (one) Each checks daily for 0 days Quantity: 100 {Each} Refills: 0 Ordered: 30-Sep-2021 Patti Mckeon LPN Start : 30-Sep-2021 Active Comments: E11.65checks daily along with pump Start: 09-30-2021 Comment on above: E11.65checks daily a long with pump Contour Next Patsy t In Vitro Strip 1 (one) Each use as directed for 0 days Quantity: 100 {Strip} Refills: 3 Ordered: 30-Sep-2021 Ruth Castellano LPN Start : 30-Sep-2021 End : 30-Sep-2021 Inactive Comments: E11.65checks PRN along with insulin pump Start: 09-30-2021 End: 09-30-2021 Comment on above: E11.65checks PRN tha ng with insulin pump Accu-Chek Katie Plus In Vitro Strip 1 (one) Each checks daily for 0 days Quantity: 100 {Each} Refills: 0 Ordered: 30-Sep-2021 Patti Mckeon LPN Start : 30-Sep-2021 Active Comments: E11.65checks daily along with pump Start: 09-30-2021 Comment on above: E11.65checks daily a long with pump Contour Next Patsy t In Vitro Strip 1 (one) Each use as directed for 0 days Quantity: 100 {Strip} Refills: 3 Ordered: 30-Sep-2021 Ruth Castellano LPN Start : 30-Sep-2021 End : 30-Sep-2021 Inactive Comments: E11.65checks PRN along with insulin pump Start: 09-30-2021 End: 09-30-2021 Comment on above: E11.65checks PRN tha ng with insulin pump Accu-Chek Katie Plus In Vitro Strip 1 (one) Each checks daily for 0 days Quantity: 100 {Each} Refills: 0 Ordered: 30-Sep-2021 Patti Mckeon LPN Start : 30-Sep-2021 Active Comments: E11.65checks daily along with pump Start: 09-30-2021 Comment on above: E11.65checks daily a long with pump Contour Next Patsy t In Vitro Strip 1 (one) Each use as directed for 0 days Quantity: 100 {Strip} Refills: 3 Ordered: 30-Sep-2021 Ruth Castellano LPN Start : 30-Sep-2021 End : 30-Sep-2021 Inactive Comments: E11.65checks PRN along with insulin pump Start: 09-30-2021 End: 09-30-2021 Comment on above: E11.65checks PRN tha ng with insulin pump Accu-Chek Katie Plus In Vitro Strip 1 (one) Each checks daily for 0 days Quantity: 100 {Each} Refills: 0 Ordered: 30-Sep-2021 Patti Mckeon LPN Start : 30-Sep-2021 Active Comments: E11.65checks daily along with pump Start: 09-30-2021 Comment on above: E11.65checks daily a long with pump Contour Next Patsy t In Vitro Strip 1 (one) Each use as directed for 0 days Quantity: 100 {Strip} Refills: 3 Ordered: 30-Sep-2021 Ruth Castellano LPN Start : 30-Sep-2021 End : 30-Sep-2021 Inactive Comments: E11.65checks PRN along with insulin pump Start: 09-30-2021 End: 09-30-2021 Comment on above: E11.65checks PRN tha ng with insulin pump Accu-Chek Katie Plus In Vitro Strip 1 (one) Each checks daily for 0 days Quantity: 100 {Each} Refills: 0 Ordered: 30-Sep-2021 Patti Mckeon LPN Start : 30-Sep-2021 Active Comments: E11.65checks daily along with pump Start: 09-30-2021 Comment on above: E11.65checks daily a long with pump Contour Next Patsy t In Vitro Strip 1 (one) Each use as directed for 0 days Quantity: 100 {Strip} Refills: 3 Ordered: 30-Sep-2021 Ruth Castellano LPN Start : 30-Sep-2021 End : 30-Sep-2021 Inactive Comments: E11.65checks PRN along with insulin pump Start: 09-30-2021 End: 09-30-2021 Comment on above: E11.65checks PRN tha ng with insulin pump Accu-Chek Katie Plus In Vitro Strip 1 (one) Each checks daily for 0 days Quantity: 100 {Each} Refills: 0 Ordered: 30-Sep-2021 Patti Mckeon LPN Start : 30-Sep-2021 Active Comments: E11.65checks daily along with pump Start: 09-30-2021 Comment on above: E11.65checks daily a long with pump Contour Next Patsy t In Vitro Strip 1 (one) Each use as directed for 0 days Quantity: 100 {Strip} Refills: 3 Ordered: 30-Sep-2021 Ruth Castellano LPN Start : 30-Sep-2021 End : 30-Sep-2021 Inactive Comments: E11.65checks PRN along with insulin pump Start: 09-30-2021 End: 09-30-2021 Comment on above: E11.65checks PRN tha ng with insulin pump Accu-Chek Katie Plus In Vitro Strip 1 (one) Each checks daily for 0 days Quantity: 100 {Each} Refills: 0 Ordered: 30-Sep-2021 Patti Mckeon LPN Start : 30-Sep-2021 Active Comments: E11.65checks daily along with pump Start: 09-30-2021 Comment on above: E11.65checks daily a long with pump Contour Next Patsy t In Vitro Strip 1 (one) Each use as directed for 0 days Quantity: 100 {Strip} Refills: 3 Ordered: 30-Sep-2021 Ruth Castellano LPN Start : 30-Sep-2021 End : 30-Sep-2021 Inactive Comments: E11.65magdycks PRN along with insulin pump Start: 09-30-2021 End: 09-30-2021 Comment on above: E11.65checks PRN tha ng with insulin pump Accu-Chek Katie Plus In Vitro Strip 1 (one) Each checks daily for 0 days Quantity: 100 {Each} Refills: 0 Ordered: 30-Sep-2021 Patti Mckeon LPN Start : 30-Sep-2021 Active Comments: E11.65checks daily along with pump Start: 09-30-2021 Comment on above: E11.65checks daily a long with pump Contour Next Patsy t In Vitro Strip 1 (one) Each use as directed for 0 days Quantity: 100 {Strip} Refills: 3 Ordered: 30-Sep-2021 Ruth Castellano LPN Start : 30-Sep-2021 End : 30-Sep-2021 Inactive Comments: [email or web address] PRN along with insulin pump Start: 09-30-2021 End: 09-30-2021 Comment on above: E11.65magdycks PRN tha ng with insulin pump Accu-Chek Katie Plus In Vitro Strip 1 (one) Each checks daily for 0 days Quantity: 100 {Each} Refills: 0 Ordered: 30-Sep-2021 Patti Mckeon LPN Start : 30-Sep-2021 Active Comments: E11.65checks daily along with pump Start: 09-30-2021 Comment on above: E11.65checks daily a long with pump Contour Next Patsy t In Vitro Strip 1 (one) Each use as directed for 0 days Quantity: 100 {Strip} Refills: 3 Ordered: 30-Sep-2021 Ruth Castellano LPN Start : 30-Sep-2021 End : 30-Sep-2021 Inactive Comments: [email or web address] PRN along with insulin pump Start: 09-30-2021 End: 09-30-2021 Comment on above: E11.65checks PRN tha ng with insulin pump Accu-Chek Katie Plus In Vitro Strip 1 (one) Each checks daily for 0 days Quantity: 100 {Each} Refills: 0 Ordered: 30-Sep-2021 Patti Mckeon LPN Start : 30-Sep-2021 Active Comments: E11.65checks daily along with pump Start: 09-30-2021 Comment on above: E11.65checks daily a long with pump Contour Next Patsy t In Vitro Strip 1 (one) Each use as directed for 0 days Quantity: 100 {Strip} Refills: 3 Ordered: 30-Sep-2021 Ruth Castellano LPN Start : 30-Sep-2021 End : 30-Sep-2021 Inactive Comments: E11.65checks PRN along with insulin pump Start: 09-30-2021 End: 09-30-2021 Comment on above: E11.65checks PRN tha ng with insulin pump Accu-Chek Katie Plus In Vitro Strip 1 (one) Each checks daily for 0 days Quantity: 100 {Each} Refills: 0 Ordered: 30-Sep-2021 Patti Mckeon LPN Start : 30-Sep-2021 Active Comments: E11.65checks daily along with pump Start: 09-30-2021 Comment on above: E11.65checks daily a long with pump Contour Next Patsy t In Vitro Strip 1 (one) Each use as directed for 0 days Quantity: 100 {Strip} Refills: 3 Ordered: 30-Sep-2021 Ruth Castellano LPN Start : 30-Sep-2021 End : 30-Sep-2021 Inactive Comments: E11.65checks PRN along with insulin pump Start: 09-30-2021 End: 09-30-2021 Comment on above: E11.65checks PRN tha ng with insulin pump Accu-Chek Katie Plus In Vitro Strip 1 (one) Each checks daily for 0 days Quantity: 100 {Each} Refills: 0 Ordered: 30-Sep-2021 Patti Mckeon LPN Start : 30-Sep-2021 Active Comments: E11.65checks daily along with pump Start: 09-30-2021 Comment on above: E11.65checks daily a long with pump Contour Next Patsy t In Vitro Strip 1 (one) Each use as directed for 0 days Quantity: 100 {Strip} Refills: 3 Ordered: 30-Sep-2021 Ruth Castellano LPN Start : 30-Sep-2021 End : 30-Sep-2021 Inactive Comments: E11.65checks PRN along with insulin pump Start: 09-30-2021 End: 09-30-2021 Comment on above: E11.65checks PRN tha ng with insulin pump Accu-Chek Katie Plus In Vitro Strip 1 (one) Each checks daily for 0 days Quantity: 100 {Each} Refills: 0 Ordered: 30-Sep-2021 Patti Mckeon LPN Start : 30-Sep-2021 Active Comments: E11.65checks daily along with pump Start: 09-30-2021 Comment on above: E11.65checks daily a long with pump Contour Next Patsy t In Vitro Strip 1 (one) Each use as directed for 0 days Quantity: 100 {Strip} Refills: 3 Ordered: 30-Sep-2021 Ruth Castellano LPN Start : 30-Sep-2021 End : 30-Sep-2021 Inactive Comments: E11.65checks PRN along with insulin pump Start: 09-30-2021 End: 09-30-2021 Comment on above: E11.65checks PRN tha ng with insulin pump Accu-Chek Katie Plus In Vitro Strip 1 (one) Each checks daily for 0 days Quantity: 100 {Each} Refills: 0 Ordered: 30-Sep-2021 Patti Mckeon LPN Start : 30-Sep-2021 Active Comments: E11.65checks daily along with pump Start: 09-30-2021 Comment on above: E11.65checks daily a long with pump Contour Next Patsy t In Vitro Strip 1 (one) Each use as directed for 0 days Quantity: 100 {Strip} Refills: 3 Ordered: 30-Sep-2021 Ruth Castellano LPN Start : 30-Sep-2021 End : 30-Sep-2021 Inactive Comments: E11.65checks PRN along with insulin pump Start: 09-30-2021 End: 09-30-2021 Comment on above: E11.65checks PRN tha ng with insulin pump Accu-Chek Katie Plus In Vitro Strip 1 (one) Each checks daily for 0 days Quantity: 100 {Each} Refills: 0 Ordered: 30-Sep-2021 Patti Mckeon LPN Start : 30-Sep-2021 Active Comments: E11.65checks daily along with pump Start: 09-30-2021 Comment on above: E11.65checks daily a long with pump Contour Next Patsy t In Vitro Strip 1 (one) Each use as directed for 0 days Quantity: 100 {Strip} Refills: 3 Ordered: 30-Sep-2021 Ruth Castellano LPN Start : 30-Sep-2021 End : 30-Sep-2021 Inactive Comments: E11.65checks PRN along with insulin pump Start: 09-30-2021 End: 09-30-2021 Comment on above: E11.65checks PRN tha ng with insulin pump Accu-Chek Katie Plus In Vitro Strip 1 (one) Each checks daily for 0 days Quantity: 100 {Each} Refills: 0 Ordered: 30-Sep-2021 Patti Mckeon LPN Start : 30-Sep-2021 Active Comments: E11.65checks daily along with pump Start: 09-30-2021 Comment on above: E11.65checks daily a long with pump Contour Next Patsy t In Vitro Strip 1 (one) Each use as directed for 0 days Quantity: 100 {Strip} Refills: 3 Ordered: 30-Sep-2021 Ruth Castellano LPN Start : 30-Sep-2021 End : 30-Sep-2021 Inactive Comments: E11.65checks PRN along with insulin pump Start: 09-30-2021 End: 09-30-2021 Comment on above: E11.65checks PRN tha ng with insulin pump Accu-Chek Katie Plus In Vitro Strip 1 (one) Each checks daily for 0 days Quantity: 100 {Each} Refills: 0 Ordered: 30-Sep-2021 Patti Mckeon LPN Start : 30-Sep-2021 Active Comments: E11.65checks daily along with pump Start: 09-30-2021 Comment on above: E11.65checks daily a long with pump Contour Next Patsy t In Vitro Strip 1 (one) Each use as directed for 0 days Quantity: 100 {Strip} Refills: 3 Ordered: 30-Sep-2021 Ruth Castellano LPN Start : 30-Sep-2021 End : 30-Sep-2021 Inactive Comments: E11.65checks PRN along with insulin pump Start: 09-30-2021 End: 09-30-2021 Comment on above: E11.65checks PRN tha ng with insulin pump Accu-Chek Katie Plus In Vitro Strip 1 (one) Each checks daily for 0 days Quantity: 100 {Each} Refills: 0 Ordered: 30-Sep-2021 Patti Mckeon LPN Start : 30-Sep-2021 Active Comments: E11.65checks daily along with pump Start: 09-30-2021 Comment on above: E11.65checks daily a long with pump Contour Next Patsy t In Vitro Strip 1 (one) Each use as directed for 0 days Quantity: 100 {Strip} Refills: 3 Ordered: 30-Sep-2021 Ruth Castellano LPN Start : 30-Sep-2021 End : 30-Sep-2021 Inactive Comments: E11.65checks PRN along with insulin pump Start: 09-30-2021 End: 09-30-2021 Comment on above: E11.65checks PRN tha ng with insulin pump Accu-Chek Katie Plus In Vitro Strip 1 (one) Each checks daily for 0 days Quantity: 100 {Each} Refills: 0 Ordered: 30-Sep-2021 Patti Mckeon LPN Start : 30-Sep-2021 Active Comments: E11.65checks daily along with pump Start: 09-30-2021 Comment on above: E11.65checks daily a long with pump Contour Next Patsy t In Vitro Strip 1 (one) Each use as directed for 0 days Quantity: 100 {Strip} Refills: 3 Ordered: 30-Sep-2021 Ruth Castellano LPN Start : 30-Sep-2021 End : 30-Sep-2021 Inactive Comments: E11.65checks PRN along with insulin pump Start: 09-30-2021 End: 09-30-2021 Comment on above: E11.65checks PRN tha ng with insulin pump Accu-Chek Katie Plus In Vitro Strip 1 (one) Each checks daily for 0 days Quantity: 100 {Each} Refills: 0 Ordered: 30-Sep-2021 Patti Mckeon LPN Start : 30-Sep-2021 Active Comments: E11.65checks daily along with pump Start: 09-30-2021 Comment on above: E11.65checks daily a long with pump Contour Next Patsy t In Vitro Strip 1 (one) Each use as directed for 0 days Quantity: 100 {Strip} Refills: 3 Ordered: 30-Sep-2021 Ruth Castellano LPN Start : 30-Sep-2021 End : 30-Sep-2021 Inactive Comments: E11.65checks PRN along with insulin pump Start: 09-30-2021 End: 09-30-2021 Comment on above: E11.65checks PRN tha ng with insulin pump Accu-Chek Katie Plus In Vitro Strip 1 (one) Each checks daily for 0 days Quantity: 100 {Each} Refills: 0 Ordered: 30-Sep-2021 Patti Mckeon LPN Start : 30-Sep-2021 Active Comments: E11.65checks daily along with pump Start: 09-30-2021 Comment on above: E11.65checks daily a long with pump Contour Next Patsy t In Vitro Strip 1 (one) Each use as directed for 0 days Quantity: 100 {Strip} Refills: 3 Ordered: 30-Sep-2021 Ruth Castellano LPN Start : 30-Sep-2021 End : 30-Sep-2021 Inactive Comments: E11.65checks PRN along with insulin pump Start: 09-30-2021 End: 09-30-2021 Comment on above: E11.65checks PRN tha ng with insulin pump Accu-Chek Katie Plus In Vitro Strip 1 (one) Each checks daily for 0 days Quantity: 100 {Each} Refills: 0 Ordered: 30-Sep-2021 Patti Mckeon LPN Start : 30-Sep-2021 Active Comments: E11.65checks daily along with pump Start: 09-30-2021 Comment on above: E11.65checks daily a long with pump Contour Next Patsy t In Vitro Strip 1 (one) Each use as directed for 0 days Quantity: 100 {Strip} Refills: 3 Ordered: 30-Sep-2021 Ruth Castellano LPN Start : 30-Sep-2021 End : 30-Sep-2021 Inactive Comments: E11.65checks PRN along with insulin pump Start: 09-30-2021 End: 09-30-2021 Comment on above: E11.65checks PRN tha ng with insulin pump Accu-Chek Katie Plus In Vitro Strip 1 (one) Each checks daily for 0 days Quantity: 100 {Each} Refills: 0 Ordered: 30-Sep-2021 Patti Mckeon LPN Start : 30-Sep-2021 Active Comments: E11.65checks daily along with pump Start: 09-30-2021 Comment on above: E11.65checks daily a long with pump Contour Next Patsy t In Vitro Strip 1 (one) Each use as directed for 0 days Quantity: 100 {Strip} Refills: 3 Ordered: 30-Sep-2021 Ruth Castellano LPN Start : 30-Sep-2021 End : 30-Sep-2021 Inactive Comments: E11.65checks PRN along with insulin pump Start: 09-30-2021 End: 09-30-2021 Comment on above: [email or web address] PRN tha ng with insulin pump Accu-Chek Katie Plus In Vitro Strip 1 (one) Each checks daily for 0 days Quantity: 100 {Each} Refills: 0 Ordered: 30-Sep-2021 Patti Mckeon LPN Start : 30-Sep-2021 Active Comments: E11.65checks daily along with pump Start: 09-30-2021 Comment on above: E11.65checks daily a long with pump Contour Next Patsy t In Vitro Strip 1 (one) Each use as directed for 0 days Quantity: 100 {Strip} Refills: 3 Ordered: 30-Sep-2021 Ruth Castellano LPN Start : 30-Sep-2021 End : 30-Sep-2021 Inactive Comments: E11.65checks PRN along with insulin pump Start: 09-30-2021 End: 09-30-2021 Comment on above: [email or web address] PRN tha ng with insulin pump Accu-Chek Katie Plus In Vitro Strip 1 (one) Each checks daily for 0 days Quantity: 100 {Each} Refills: 0 Ordered: 30-Sep-2021 Patti Mckeon LPN Start : 30-Sep-2021 Active Comments: E11.65checks daily along with pump Start: 09-30-2021 Comment on above: E11.65checks daily a long with pump Contour Next Patsy t In Vitro Strip 1 (one) Each use as directed for 0 days Quantity: 100 {Strip} Refills: 3 Ordered: 30-Sep-2021 Ruth Castellano LPN Start : 30-Sep-2021 End : 30-Sep-2021 Inactive Comments: E11.65checks PRN along with insulin pump Start: 09-30-2021 End: 09-30-2021 Comment on above: [email or web address] PRN tha ng with insulin pump Accu-Chek Katie Plus In Vitro Strip 1 (one) Each checks daily for 0 days Quantity: 100 {Each} Refills: 0 Ordered: 30-Sep-2021 Patti Mckeon LPN Start : 30-Sep-2021 Active Comments: E11.65checks daily along with pump Start: 09-30-2021 Comment on above: E11.65checks daily a long with pump Contour Next Patsy t In Vitro Strip 1 (one) Each use as directed for 0 days Quantity: 100 {Strip} Refills: 3 Ordered: 30-Sep-2021 Ruth Castellano LPN Start : 30-Sep-2021 End : 30-Sep-2021 Inactive Comments: E11.65checks PRN along with insulin pump Start: 09-30-2021 End: 09-30-2021 Comment on above: [email or web address] PRN tha ng with insulin pump Accu-Chek Katie Plus In Vitro Strip 1 (one) Each checks daily for 0 days Quantity: 100 {Each} Refills: 0 Ordered: 30-Sep-2021 Patti Mckeon LPN Start : 30-Sep-2021 Active Comments: E11.65checks daily along with pump Start: 09-30-2021 Comment on above: E11.65checks daily a long with pump Contour Next Patsy t In Vitro Strip 1 (one) Each use as directed for 0 days Quantity: 100 {Strip} Refills: 3 Ordered: 30-Sep-2021 Ruth Castellano LPN Start : 30-Sep-2021 End : 30-Sep-2021 Inactive Comments: E11.65checks PRN along with insulin pump Start: 09-30-2021 End: 09-30-2021 Comment on above: E11.65checks PRN tha ng with insulin pump Accu-Chek Katie Plus In Vitro Strip 1 (one) Each checks daily for 0 days Quantity: 100 {Each} Refills: 0 Ordered: 30-Sep-2021 Patti Mckeon LPN Start : 30-Sep-2021 Active Comments: E11.65checks daily along with pump Start: 09-30-2021 Comment on above: E11.65checks daily a long with pump Contour Next Patsy t In Vitro Strip 1 (one) Each use as directed for 0 days Quantity: 100 {Strip} Refills: 3 Ordered: 30-Sep-2021 Ruth Castellano LPN Start : 30-Sep-2021 End : 30-Sep-2021 Inactive Comments: E11.65checks PRN along with insulin pump Start: 09-30-2021 End: 09-30-2021 Comment on above: E11.65checks PRN tha ng with insulin pump Accu-Chek Katie Plus In Vitro Strip 1 (one) Each checks daily for 0 days Quantity: 100 {Each} Refills: 0 Ordered: 30-Sep-2021 Patti Mckeon LPN Start : 30-Sep-2021 Active Comments: E11.65checks daily along with pump Start: 09-30-2021 Comment on above: E11.65checks daily a long with pump Contour Next Patsy t In Vitro Strip 1 (one) Each use as directed for 0 days Quantity: 100 {Strip} Refills: 3 Ordered: 30-Sep-2021 Ruth Castellano LPN Start : 30-Sep-2021 End : 30-Sep-2021 Inactive Comments: E11.65checks PRN along with insulin pump Start: 09-30-2021 End: 09-30-2021 Comment on above: E11.65checks PRN tha ng with insulin pump Accu-Chek Katie Plus In Vitro Strip 1 (one) Each checks daily for 0 days Quantity: 100 {Each} Refills: 0 Ordered: 30-Sep-2021 Patti Mckeon LPN Start : 30-Sep-2021 Active Comments: E11.65checks daily along with pump Start: 09-30-2021 Comment on above: E11.65checks daily a long with pump Contour Next Patsy t In Vitro Strip 1 (one) Each use as directed for 0 days Quantity: 100 {Strip} Refills: 3 Ordered: 30-Sep-2021 Ruth Castellano LPN Start : 30-Sep-2021 End : 30-Sep-2021 Inactive Comments: E11.65checks PRN along with insulin pump Start: 09-30-2021 End: 09-30-2021 Comment on above: E11.65checks PRN tha ng with insulin pump Accu-Chek Katie Plus In Vitro Strip 1 (one) Each checks daily for 0 days Quantity: 100 {Each} Refills: 0 Ordered: 30-Sep-2021 Patti Mckeon LPN Start : 30-Sep-2021 Active Comments: E11.65checks daily along with pump Start: 09-30-2021 Comment on above: E11.65checks daily a long with pump Contour Next Patsy t In Vitro Strip 1 (one) Each use as directed for 0 days Quantity: 100 {Strip} Refills: 3 Ordered: 30-Sep-2021 Ruth Castellano LPN Start : 30-Sep-2021 End : 30-Sep-2021 Inactive Comments: E11.65checks PRN along with insulin pump Start: 09-30-2021 End: 09-30-2021 Comment on above: E11.65checks PRN tha ng with insulin pump Accu-Chek Katie Plus In Vitro Strip 1 (one) Each checks daily for 0 days Quantity: 100 {Each} Refills: 0 Ordered: 30-Sep-2021 Patti Mckeon LPN Start : 30-Sep-2021 Active Comments: E11.65checks daily along with pump Start: 09-30-2021 Comment on above: E11.65checks daily a long with pump Contour Next Patsy t In Vitro Strip 1 (one) Each use as directed for 0 days Quantity: 100 {Strip} Refills: 3 Ordered: 30-Sep-2021 Ruth Castellano LPN Start : 30-Sep-2021 End : 30-Sep-2021 Inactive Comments: E11.65checks PRN along with insulin pump Start: 09-30-2021 End: 09-30-2021 Comment on above: E11.65checks PRN tha ng with insulin pump Accu-Chek Katie Plus In Vitro Strip 1 (one) Each checks daily for 0 days Quantity: 100 {Each} Refills: 0 Ordered: 30-Sep-2021 Patti Mckeon LPN Start : 30-Sep-2021 Active Comments: E11.65checks daily along with pump Start: 09-30-2021 Comment on above: E11.65checks daily a long with pump Contour Next Patsy t In Vitro Strip 1 (one) Each use as directed for 0 days Quantity: 100 {Strip} Refills: 3 Ordered: 30-Sep-2021 Ruth Castellano LPN Start : 30-Sep-2021 End : 30-Sep-2021 Inactive Comments: E11.65checks PRN along with insulin pump Start: 09-30-2021 End: 09-30-2021 Comment on above: E11.65checks PRN tha ng with insulin pump Accu-Chek Katie Plus In Vitro Strip 1 (one) Each checks daily for 0 days Quantity: 100 {Each} Refills: 0 Ordered: 30-Sep-2021 Patti Mckeon LPN Start : 30-Sep-2021 Active Comments: E11.65checks daily along with pump Start: 09-30-2021 Comment on above: E11.65checks daily a long with pump Contour Next Patsy t In Vitro Strip 1 (one) Each use as directed for 0 days Quantity: 100 {Strip} Refills: 3 Ordered: 30-Sep-2021 Ruth Castellano LPN Start : 30-Sep-2021 End : 30-Sep-2021 Inactive Comments: E11.65checks PRN along with insulin pump Start: 09-30-2021 End: 09-30-2021 Comment on above: E11.65checks PRN tha ng with insulin pump Accu-Chek Katie Plus In Vitro Strip 1 (one) Each checks daily for 0 days Quantity: 100 {Each} Refills: 0 Ordered: 30-Sep-2021 Patti Mckeon LPN Start : 30-Sep-2021 Active Comments: E11.65checks daily along with pump Start: 09-30-2021 Comment on above: E11.65checks daily a long with pump Contour Next Patsy t In Vitro Strip 1 (one) Each use as directed for 0 days Quantity: 100 {Strip} Refills: 3 Ordered: 30-Sep-2021 Ruth Castellano LPN Start : 30-Sep-2021 End : 30-Sep-2021 Inactive Comments: E11.65checks PRN along with insulin pump Start: 09-30-2021 End: 09-30-2021 Comment on above: E11.65checks PRN tha ng with insulin pump Accu-Chek Katie Plus In Vitro Strip 1 (one) Each checks daily for 0 days Quantity: 100 {Each} Refills: 0 Ordered: 30-Sep-2021 Patti Mckeon LPN Start : 30-Sep-2021 Active Comments: E11.65checks daily along with pump Start: 09-30-2021 Comment on above: E11.65checks daily a long with pump Contour Next Patsy t In Vitro Strip 1 (one) Each use as directed for 0 days Quantity: 100 {Strip} Refills: 3 Ordered: 30-Sep-2021 Ruth Castellano LPN Start : 30-Sep-2021 End : 30-Sep-2021 Inactive Comments: E11.65magdycks PRN along with insulin pump Start: 09-30-2021 End: 09-30-2021 Comment on above: E11.65magdycks PRN tha ng with insulin pump Accu-Chek Katie Plus In Vitro Strip 1 (one) Each checks daily for 0 days Quantity: 100 {Each} Refills: 0 Ordered: 30-Sep-2021 Patti Mckeon LPN Start : 30-Sep-2021 Active Comments: E11.65checks daily along with pump Start: 09-30-2021 Comment on above: E11.65checks daily a long with pump Contour Next Patsy t In Vitro Strip 1 (one) Each use as directed for 0 days Quantity: 100 {Strip} Refills: 3 Ordered: 30-Sep-2021 Ruth Castellano LPN Start : 30-Sep-2021 End : 30-Sep-2021 Inactive Comments: E11.65magdycks PRN along with insulin pump Start: 09-30-2021 End: 09-30-2021 Comment on above: E11.65checks PRN tha ng with insulin pump Accu-Chek Katie Plus In Vitro Strip 1 (one) Each checks daily for 0 days Quantity: 100 {Each} Refills: 0 Ordered: 30-Sep-2021 Patti Mckeon LPN Start : 30-Sep-2021 Active Comments: E11.65checks daily along with pump Start: 09-30-2021 Comment on above: E11.65checks daily a long with pump Contour Next Patsy t In Vitro Strip 1 (one) Each use as directed for 0 days Quantity: 100 {Strip} Refills: 3 Ordered: 30-Sep-2021 Ruth Castellano LPN Start : 30-Sep-2021 End : 30-Sep-2021 Inactive Comments: E11.65checks PRN along with insulin pump Start: 09-30-2021 End: 09-30-2021 Comment on above: E11.65checks PRN tha ng with insulin pump Accu-Chek Katie Plus In Vitro Strip 1 (one) Each checks daily for 0 days Quantity: 100 {Each} Refills: 0 Ordered: 30-Sep-2021 Patti Mckeon LPN Start : 30-Sep-2021 Active Comments: E11.65checks daily along with pump Start: 09-30-2021 Comment on above: E11.65checks daily a long with pump Contour Next Patsy t In Vitro Strip 1 (one) Each use as directed for 0 days Quantity: 100 {Strip} Refills: 3 Ordered: 30-Sep-2021 Ruth Castellano LPN Start : 30-Sep-2021 End : 30-Sep-2021 Inactive Comments: E11.65checks PRN along with insulin pump Start: 09-30-2021 End: 09-30-2021 Comment on above: E11.65checks PRN tha ng with insulin pump Accu-Chek Katie Plus In Vitro Strip 1 (one) Each checks daily for 0 days Quantity: 100 {Each} Refills: 0 Ordered: 30-Sep-2021 Patti Mckeon LPN Start : 30-Sep-2021 Active Comments: E11.65checks daily along with pump Start: 09-30-2021 Comment on above: E11.65checks daily a long with pump Contour Next Patsy t In Vitro Strip 1 (one) Each use as directed for 0 days Quantity: 100 {Strip} Refills: 3 Ordered: 30-Sep-2021 Ruth Castellano LPN Start : 30-Sep-2021 End : 30-Sep-2021 Inactive Comments: E11.65checks PRN along with insulin pump Start: 09-30-2021 End: 09-30-2021 Comment on above: E11.65checks PRN tha ng with insulin pump Accu-Chek Katie Plus In Vitro Strip 1 (one) Each checks daily for 0 days Quantity: 100 {Each} Refills: 0 Ordered: 30-Sep-2021 Patti Mckeon LPN Start : 30-Sep-2021 Active Comments: E11.65checks daily along with pump Start: 09-30-2021 Comment on above: E11.65checks daily a long with pump Contour Next Patsy t In Vitro Strip 1 (one) Each use as directed for 0 days Quantity: 100 {Strip} Refills: 3 Ordered: 30-Sep-2021 Ruth Castellano LPN Start : 30-Sep-2021 End : 30-Sep-2021 Inactive Comments: E11.65checks PRN along with insulin pump Start: 09-30-2021 End: 09-30-2021 Comment on above: E11.65checks PRN tha ng with insulin pump Accu-Chek Katie Plus In Vitro Strip 1 (one) Each checks daily for 0 days Quantity: 100 {Each} Refills: 0 Ordered: 30-Sep-2021 Patti Mckeon LPN Start : 30-Sep-2021 Active Comments: E11.65checks daily along with pump Start: 09-30-2021 Comment on above: E11.65checks daily a long with pump Contour Next Patsy t In Vitro Strip 1 (one) Each use as directed for 0 days Quantity: 100 {Strip} Refills: 3 Ordered: 30-Sep-2021 Ruth Castellano LPN Start : 30-Sep-2021 End : 30-Sep-2021 Inactive Comments: E11.65checks PRN along with insulin pump Start: 09-30-2021 End: 09-30-2021 Comment on above: E11.65checks PRN tha ng with insulin pump Accu-Chek Katie Plus In Vitro Strip 1 (one) Each checks daily for 0 days Quantity: 100 {Each} Refills: 0 Ordered: 30-Sep-2021 Patti Mckeon LPN Start : 30-Sep-2021 Active Comments: E11.65checks daily along with pump Start: 09-30-2021 Comment on above: E11.65checks daily a long with pump Contour Next Patsy t In Vitro Strip 1 (one) Each use as directed for 0 days Quantity: 100 {Strip} Refills: 3 Ordered: 30-Sep-2021 Ruth Castellano LPN Start : 30-Sep-2021 End : 30-Sep-2021 Inactive Comments: E11.65checks PRN along with insulin pump Start: 09-30-2021 End: 09-30-2021 Comment on above: E11.65checks PRN tha ng with insulin pump Accu-Chek Katie Plus In Vitro Strip 1 (one) Each checks daily for 0 days Quantity: 100 {Each} Refills: 0 Ordered: 30-Sep-2021 Patti Mckeon LPN Start : 30-Sep-2021 Active Comments: E11.65checks daily along with pump Start: 09-30-2021 Comment on above: E11.65checks daily a long with pump Contour Next Patsy t In Vitro Strip 1 (one) Each use as directed for 0 days Quantity: 100 {Strip} Refills: 3 Ordered: 30-Sep-2021 Ruth Castellano LPN Start : 30-Sep-2021 End : 30-Sep-2021 Inactive Comments: E11.65checks PRN along with insulin pump Start: 09-30-2021 End: 09-30-2021 Comment on above: E11.65checks PRN tha ng with insulin pump Accu-Chek Katie Plus In Vitro Strip 1 (one) Each checks daily for 0 days Quantity: 100 {Each} Refills: 0 Ordered: 30-Sep-2021 Patti Mckeon LPN Start : 30-Sep-2021 Active Comments: E11.65checks daily along with pump Start: 09-30-2021 Comment on above: E11.65checks daily a long with pump Contour Next Patsy t In Vitro Strip 1 (one) Each use as directed for 0 days Quantity: 100 {Strip} Refills: 3 Ordered: 30-Sep-2021 Ruth Castellano LPN Start : 30-Sep-2021 End : 30-Sep-2021 Inactive Comments: E11.65checks PRN along with insulin pump Start: 09-30-2021 End: 09-30-2021 Comment on above: E11.65checks PRN tha ng with insulin pump Accu-Chek Katie Plus In Vitro Strip 1 (one) Each checks daily for 0 days Quantity: 100 {Each} Refills: 0 Ordered: 30-Sep-2021 Patti Mckeon LPN Start : 30-Sep-2021 Active Comments: E11.65checks daily along with pump Start: 09-30-2021 Comment on above: E11.65checks daily a long with pump Contour Next Patsy t In Vitro Strip 1 (one) Each use as directed for 0 days Quantity: 100 {Strip} Refills: 3 Ordered: 30-Sep-2021 Ruth Castellano LPN Start : 30-Sep-2021 End : 30-Sep-2021 Inactive Comments: E11.65checks PRN along with insulin pump Start: 09-30-2021 End: 09-30-2021 Comment on above: E11.65checks PRN tha ng with insulin pump Accu-Chek Katie Plus In Vitro Strip 1 (one) Each checks daily for 0 days Quantity: 100 {Each} Refills: 0 Ordered: 30-Sep-2021 Patti Mckeon LPN Start : 30-Sep-2021 Active Comments: E11.65checks daily along with pump Start: 09-30-2021 Comment on above: E11.65checks daily a long with pump Contour Next Patsy t In Vitro Strip 1 (one) Each use as directed for 0 days Quantity: 100 {Strip} Refills: 3 Ordered: 30-Sep-2021 Ruth Castellano LPN Start : 30-Sep-2021 End : 30-Sep-2021 Inactive Comments: E11.65checks PRN along with insulin pump Start: 09-30-2021 End: 09-30-2021 Comment on above: E11.65checks PRN tha ng with insulin pump Accu-Chek Katie Plus In Vitro Strip 1 (one) Each checks daily for 0 days Quantity: 100 {Each} Refills: 0 Ordered: 30-Sep-2021 Patti Mckeon LPN Start : 30-Sep-2021 Active Comments: E11.65checks daily along with pump Start: 09-30-2021 Comment on above: E11.65checks daily a long with pump Contour Next Patsy t In Vitro Strip 1 (one) Each use as directed for 0 days Quantity: 100 {Strip} Refills: 3 Ordered: 30-Sep-2021 Ruth Castellano LPN Start : 30-Sep-2021 End : 30-Sep-2021 Inactive Comments: E11.65checks PRN along with insulin pump Start: 09-30-2021 End: 09-30-2021 Comment on above: E11.65checks PRN tha ng with insulin pump Accu-Chek Katie Plus In Vitro Strip 1 (one) Each checks daily for 0 days Quantity: 100 {Each} Refills: 0 Ordered: 30-Sep-2021 Patti Mckeon LPN Start : 30-Sep-2021 Active Comments: E11.65checks daily along with pump Start: 09-30-2021 Comment on above: E11.65checks daily a long with pump Contour Next Patsy t In Vitro Strip 1 (one) Each use as directed for 0 days Quantity: 100 {Strip} Refills: 3 Ordered: 30-Sep-2021 Ruth Castellano LPN Start : 30-Sep-2021 End : 30-Sep-2021 Inactive Comments: E11.65checks PRN along with insulin pump Start: 09-30-2021 End: 09-30-2021 Comment on above: E11.65checks PRN tha ng with insulin pump Accu-Chek Katie Plus In Vitro Strip 1 (one) Each checks daily for 0 days Quantity: 100 {Each} Refills: 0 Ordered: 30-Sep-2021 Patti Mckeon LPN Start : 30-Sep-2021 Active Comments: E11.65checks daily along with pump Start: 09-30-2021 Comment on above: E11.65checks daily a long with pump Contour Next Patsy t In Vitro Strip 1 (one) Each use as directed for 0 days Quantity: 100 {Strip} Refills: 3 Ordered: 30-Sep-2021 Ruth Castellano LPN Start : 30-Sep-2021 End : 30-Sep-2021 Inactive Comments: E11.65checks PRN along with insulin pump Start: 09-30-2021 End: 09-30-2021 Comment on above: E11.65checks PRN tha ng with insulin pump Goals Date Patient Goal Desired Activity /State Functional Status Date Assessment Result Facility 10-09-[address] [facility] Work Phone: 09-13-2024 Functional status Ambulates;Calvin r;Bathroom Privilege [facility] Work Phone: 07-01-[address] [facility] Work Phone: 11-26-[address] [facility] Work Phone: 09-10-[address] [facility] Work Phone: 06-07-[address] [facility] Work Phone: 02-10-[address] [facility] Work Phone: 01-30-2022 Functional status Activity Abili ty Standby Assist [facility] Work Phone: 01-29-[address] [facility] Work Phone: 11-22-2021 Functional status Ambulates;Up a d rafa;Bathroom Privilege [facility] Work Phone: 10-07-[address] [facility] Work Phone: 10-07-2021 Functional status Tolerates Activity Well [facility] Work Phone: Mental Status Date Assessment Result Facility 04-22-2025 Cognitive function Voice/Name [facility] Work Phone: 10-09-2024 Cognitive function Voice/Name;Touch/Shaki ng [facility] Work Phone: 10-01-2024 Cognitive function Cooperative [facility] Work Phone: 09-18-2024 Cognitive function Voice/Name [facility] Work Phone: 09-13-2024 Cognitive function Voice/Name [facility] Work Phone: 07-01-2023 Cognitive function Voice/Name [facility] Work Phone: 06-29-2023 Cognitive function Level Of Cons ciousness Alert;Appropriate;Drowsy [facility] Work Phone: 03-28-2023 Cognitive function Voice/Name [facility] Work Phone: 11-26-2022 Cognitive function Voice/Name [facility] Work Phone: 09-10-2022 Cognitive function Appropriate;Cooperativ e [facility] Work Phone: 09-08-2022 Cognitive function Level Of Cons ciousness Awake;Alert;Appropriate;Follow s Commands [facility] Work Phone: 06-07-2022 Cognitive function Voice/Name [facility] Work Phone: 02-10-2022 Cognitive function Voice/Name [facility] Work Phone: 02-06-2022 Cognitive function Level Of Cons ciousness Alert;Appropriate;Follows Commands;Drowsy;Responds to vocal stimuli [facility] Work Phone: 01-30-2022 Cognitive function Voice/Name [facility] Work Phone: 01-29-2022 Cognitive function Voice/Name [facility] Work Phone: 01-27-2022 Cognitive function Level Of Cons ciousness Alert;Drowsy [facility] Work Phone: 11-22-2021 Cognitive function Voice/Name [facility] Work Phone: 10-07-2021 Cognitive function Voice/Name [facility] Work Phone: Clinical Notes 11-22-2022 to 02-13-2025 Note Date & Type Note Facility 02-13-2025 Evaluation note Diagnosis Onset Date Resolution Anemia chronic February 13 3:10pm Anemia chronic February 19 12:50pm Diabetes mellitus type 1 chronic March 06, 2025 2:12pm Hypertension chronic March 06 2:12pm Hypothyroidism chronic March 06, 2025 2:12pm Osteoporosis chronic March 06 2:12pm Overweight chronic March 06, 2025 2:12pm [facility] Work Phone: 1(530) 104-339402-12-2025 Evaluation note* Diagnosis Onset Date Resolution Status Admit Date Diabetes mellitus type 1 chronic December 05, 2024 2:13pm Hypertension chronic November 2:13pm Hypothyroidism chronic November 242024 2:13pm Osteoporosis chronic November 2:13pm Overweight chronic December 05, 2024 2:13pm Anemia chronic February 13 3:10pm Anemia chronic February 19 12:50pm [facility] Work Phone: 1(660) 323-323712-12-2024 [facility]11-26-2024 [facility]11-21-2024 [facility] 09-13-2024 [facility]11-13-2024 Evaluation note* Diagnosis Onset Date Resolution Status Admit Date Diabetes mellitus type 1 chronic September 05, 2024 2:21pm Hypertension chronic August 2:21pm Hypothyroidism chronic August 242023 2:21pm Overweight chronic September 05, 2024 2:21pm Risk for falls chronic August 242023 2:21pm Debility acute September 10, 2024 6:50pm Leukocytosis acute August 6:50pm UTI (urinary tract infection) inacti ve September 10, 2024 6:50pm THANIA (acute kidney injury) resolved September 10, 2024 6:50pm Sepsis resolved September 10, 2024 6:50pm Bacteremia due to Gram-negative bacteria inactive September 10, 2024 6:50pm Alzheimer disease acute 2023 6:40pm Atrial fibrillation acute 2023 6:40pm Debility acute September 13, 2024 6:40pm GERD (gastroesophageal reflu x disease) acute September 13, 6:40pm HLD (hyperlipidemia) acute 2023 6:40pm Hx of iron deficiency acute Aug 6:40pm Iron deficiency anemia acute No vem2023 6:40pm Overactive bladder acute Novemb er 2023 6:40pm Vitamin D deficiency acute 2023 6:40pm Weakness acute September 13, 2024 6:40pm COPD (chronic obstructive pulmonary disease) chronic August 6:40pm Diabetes mellitus type 1 chronic September 13, 2024 6:40pm Hypertension chronic August 6:40pm Hypothyroidism chronic August 252023 6:40pm Acute renal failure resolved 2023 6:40pm THANIA (acute kidney injury) resolved September 13, 2024 6:40pm Hyponatremia resolved August 6:40pm Sepsis resolved September 13, 2024 6:40pm Vulvovaginitis due to Evette resolv ed September 13, 2024 6:40pm Bacteremia due to Gram-negative bacteria inactive September 13, 2024 6:40pm UTI (urinary tract infection) inacti ve September 13, 2024 6:40pm Atrial fibrillation acute Novem brock 2023 4:10pm Iron deficiency anemia acute No vember 2023 4:10pm Diabetes mellitus type 1 chronic December 05, 2024 2:13pm Hypertension chronic November 2:13pm Hypothyroidism chronic November 242024 2:13pm Osteoporosis chronic November 2:13pm Overweight chronic December 05, 2024 2:13pm [facility] Work Phone: 1(151) 440-675109-09-2024 [facility]08-24-2024 [facility]03-20-2024 Discharge summary Author Esequiel Harris [facility] January 11, 2024 11:41pm Note Date/Time January 11, 2024 10: 00pm [facility] Medical Records Department [address] [place] [address] Emergency Department Summary 01/11/24 MR#: [id number] Acct: [id number] Name: LIVIER SMALLS Rep #:[id number] : 1945 78 From: Esequiel Harris MD PCP: Dr. Shena Jeffers, DO Status:RE G ER Location: ED HPI History of Present Illness Chief Complaint: Complaint Detail of Chief Complaint: Diagnosed with UTI at PCPs office. Informant: spouse/S.O. Onset/Context/Timing Onset: Yesterday Quality: Presents because of shakes, decreased p.o. intake Location: Not applicable Current Severity: Unable to determine Maximum Severity: Unable to determine Worsened by: Unknown Relieved by: Unknown u Associated Symptoms Associated Symptoms: Patient with cognitive impairment. had the supplement. Narrative Narrative: Patient 78-year-old woman. She has history of recurrent urinary tract infections. She is not a good informant. at the supplement. She does have memory impairment. She does not know the month. states that is not abnormal. She has had chills. No documented fever. She was diagnosed witha urinary tract infection yesterday. She was placed on antibiotic. It was not cephalexin. Patient had decreased p.o. intake. There is been no vomiting or diarrhea. She denies headache, visual, ocular auditory symptoms. She denies rhinorrhea, congestion or postnasal drainage. She denies sore throat. She denies cough or shortness of breath. Denies chest discomfort. She denies abdominal pain, nausea, vomiting or diarrhea. She denies dysuria, frequency, urgency or hematuria. 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 Inability to walk Memory loss On home oxygen therapy On home oxygen therapy Osteoporosis Pulmonary embolism, bilateral Smoker Home Medications amlodipine 5 mg-benazepril 10 mg capsule 1 cap PO DAILY blood pressure 09/08/21 [History Last Taken 09/07/22] rivaroxaban 20 mg tablet (Xarelto) 20 mg PO DAILY blood thinner 04/23/22 [History Last Taken 09/08/22] oxybutynin chloride 10 mg tablet,extended release 24 hr 10 mg PO DAILY bladder 09/08/22 [History Last Taken 09/07/22] simvastatin 10 mg tablet 10 mg PO DAILY cholesterol 09/08/22 [History Last Taken 09/07/22] cholecalciferol (vitamin D3) 50 mcg (2,000 unit) tablet (D3 DOTS) 4,000 unit PO .COMPLEX 06/29/23 [History Last Taken 01/11/24] insulin aspart U-100 100 unit/mL subcutaneous solution (Novolog U-100 Insulin aspart) subcut DIABETES 06/29/23 [History Last Taken Unknown] magnesium 200 mg tablet 400 mg PO DAILY 06/29/23 [History Last Taken Unknown] insulin degludec 100 unit/mL subcutaneous solution (Tresiba U-100 Insulin) 7 unit subcut QHS 12/28/23 [History Last Taken Unknown] cefuroxime axetil 500 mg tablet 500 mg PO BID #14 tabs 01/11/24 [Rx Last Taken Unknown] levothyroxine 100 mcg tablet 100 mcg PO .qd, 1 1/2 every 01/11/24 [History Last Taken Unknown] Allergy/AdvReac Type Severity Reaction Status Date / Time ciprofloxacin [From Cipro] Allergy Intermediate hives Verified 01/11/24 21:44 Sulfa (Sulfonamide Allergy Intermediate hives Verified 01/11/24 21:44 Antibiotics) Family History Father Diabetes Respiratory disease Mother No problems noted. 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 alcohol intake: current alcohol intake frequency: a few times a month substance use type: does not use ROS ROS ED Review of Systems ROS Unobtainable: due to mental status Constitutional Constitutional ED: Reports chills; Denies fever(s) or subjective Eyes Eyes: Denies blurry vision, change in vision or diplopia ENT ENT ED: Denies ear pain, rhinorrhea or sore throat Cardiovascular Cardiovascular: Denies chest pain or palpitations Respiratory/Chest Respiratory/Chest: Denies cough, dyspnea or dyspnea on exertion Gastrointestinal Gastrointestinal: Denies abdominal pain, diarrhea or vomiting Genitourinary Genitourinary ED: Denies dysuria, hematuria or urinary frequency Musculoskeletal Musculoskeletal: Denies back pain Integumentary Denies rash Neurologic Neurologic: Reports weakness; Denies headache(s) Hematologic/Lymphatic Hematologic/Lymphatic: Reports systems reviewed and no addt'l complaints, exceptas documented EXAM Physical Exam Const Vital Signs: 01/11/24 21:44 01/11/24 21:45 01/11/24 21:45 Temperature 98.7 F 98.7 F Temperature Source Oral Oral Pulse Rate 95 102 H Respiratory Rate 20 H 20 H Blood Pressure 179/119 H Blood Pressure Mean 139 Pulse Ox 90 92 Oxygen Delivery Method Nasal Cannula Oxygen Flow Rate (L/min) 2 2 01/11/24 22:45 01/11/24 23:00 01/11/24 23:00 Temperature 98 F 97.9 F 98.4 F Temperature Source Oral Temporal Oral Pulse Rate 108 H 78 95 Respiratory Rate 18 20 H 17 Blood Pressure 170/75 H 172/94 H 174/75 H Blood Pressure Mean 106 120 108 Pulse Ox 96 97 96 Oxygen Delivery Method Nasal Cannula Nasal Cannula Room Air Oxygen Flow Rate (L/min) 2 2 Positive well nourished and well developed Constitutional Narrative: Pleasant elderly woman who appears in no distress. Vital signs remarkable for tachycardia. She is not febrile. She is on chronic oxygen. General Appearance ED: well developed and NAD; Negative for pallor HEENT Reports moist mucous membranes HEENT Narrative: Head is atraumatic and normocephalic. Ears normal. Nares patent. Posterior pharynx is normal. Eyes PERRL and EOMs intact bilaterally General Eye ED: Negative for pale conjunctiva or scleral icterus Neck no lymphadenopathy and no JVD Resp normal respiratory effort and clear to auscultation bilaterally Cardio regular rate, regular rhythm, S1 normal heart sound, S2 normal heart sound and no murmurs GI normal to inspection, nondistended, normoactive bowel sounds, non-tender, non-distended and no masses; Negative for hepatosplenomegaly Back/Spine no CVA tenderness Extremity normal to inspection General Extremety ED: Negative for tenderness Neuro No oriented x3, CN's II-XII intact bilaterally and no sensory deficits noted Motor Exam: strength 5/5 throughout Psych mental status grossly normal Skin no rashes or lesions noted, no wounds and No skin turgor normal General Skin Exam: Negative for elasticity normal, jaundice or pallor MDM MDM MDM Narrative Medical decision making narrative: Since patient is incontinence will have nurse straight catheter urine specimen to determine if she has a urinary tract infection since she is asymptomatic. She is not febrile. CBC was obtained assess white count differential. Electrolyte panel to assess renal function, glucose since she has history of diabetes and sodium. Since she has no respiratory symptoms and auscultation of lungs is unremarkable x-ray was not obtained. Furthermore she is not tachypneic. Awaiting patient's renal function to determine if her dose of antibiotic needs to be adjusted. There are no prior labs available for review. History & Record Review Additional record(s) reviewed:: Prior inpatient record (Admitted June 2023 for UTI.), Prior outpatient record (Endocrine office note was reviewed.), Prior ED visit and Prior labs Lab Data Attestation: I reviewed the patient's lab results. Lab results narrative: White count is elevated with mild shift. There is no bandemia. Patient is anemic. Lactate is normal at 0.9. Urine is suggestive of infection. Uncertainwhether she has symptoms or not because she has dementia. states she has incontinence as well. Will send a urine culture. Patient received a dose of Rocephin in the emergency department. Based on her allergies and prior culture and sensitivities we will treat with cefuroxime. Labs: Laboratory Results - last 24 hr 01/11/24 22:10 WBC 13.4 H RBC 4.29 Hgb 11.1 L Hct 35.4 L MCV 82.5 MCH 25.9 L MCHC 31.4 L RDW Std Deviation 45.8 H RDW Coeff of Kristyn 15.3 H Plt Count 406 MPV 11.1 Immature Gran % (Auto) 0.400 Neut % (Auto) 75.6 H Lymph % (Auto) 13.2 L [place] % (Auto) 9.6 Eos % (Auto) 0.4 Baso % (Auto) 0.8 Absolute Neuts (auto) 10.1 H Absolute Lymphs (auto) 1.77 Nucleated RBC % 0 Sodium 134 L Potassium 5.0 Chloride 103 Carbon Dioxide 25.0 Anion Gap 6 BUN 26 H Creatinine 1.03 H Estim Creat Clear Calc 44.88 Est GFR (MDRD) Af Amer 66 Est GFR (MDRD) Non-Af 55 L BUN/Creatinine Ratio 25.2 H Glucose 213 H Lactic Acid 0.9 Calcium 9.3 Total Bilirubin 0.50 AST 27 ALT 17 Alkaline Phosphatase 94 Total Protein 7.7 Albumin 3.1 L Globulin 4.6 H Albumin/Globulin Ratio 0.7 L Urine Color Yellow Urine Clarity Clear Urine pH 6.0 Ur Specific Lee 1.015 Urine Protein 30 H Urine Glucose (UA) 1000 H Urine Ketones Negative Urine Occult Blood 25 H Urine Nitrite Positive H Urine Bilirubin Negative Urine Urobilinogen Normal Ur Leukocyte Esterase 100 H Urine RBC 0 SEEN Urine WBC 5-10 SEEN Ur Squamous Epith Cells 0-5 SEEN Urine Bacteria 2+ Urine Mucus 0 SEEN Estimated GFR is 55. She will receive 500 mg of cefuroxime twice daily for 7 days. Treatment and Re-Evaluation :: was made aware of results. He feels comfortable taking her home. Discharge Plan Triage Chief Complaint: Complaint ED Provider: Esequiel Harris Dx/Rx/DC Orders Clinical Impression: Urinary tract infection, Diabetes mellitus type 1, Dementia, Hypothyroidism dueto Pepe's thyroiditis, Hypertension Instructions: ED Cystitis Female Adult Prescriptions: New cefuroxime axetil 500 mg tablet 500 mg PO BID Qty: 14 0RF No Action amlodipine-benazepril 5-10 mg capsule 1 cap PO DAILY Xarelto 20 mg tablet 20 mg PO DAILY insulin degludec [Tresiba U-100 Insulin] 100 unit/mL solution 7 unit subcut QHS oxybutynin chloride 10 mg tablet extended release 24hr 10 mg PO DAILY Patient Comments: take 1 tablet by mouth once daily simvastatin 10 mg tablet 10 mg PO DAILY magnesium 200 mg tablet 400 mg PO DAILY cholecalciferol (vitamin D3) [D3 DOTS] 50 mcg (2,000 unit) tablet 4,000 unit PO .COMPLEX Rx Instructions: 4,000 units orally every other day; insulin aspart U-100 [Novolog U-100 Insulin aspart] 100 unit/mL solution subcut Patient Comments: use as directed ACCORDING TO SLIDING SCALE - MAX OF 100 UNITS PER DAY HAS IT WRITTEN DOWN WILL NEED TO GET BOYFRIEND TO BRING IT IN levothyroxine 100 mcg tablet 100 mcg PO .qd, 1 1/2 every Rx Instructions: @0200 Primary Care Provider: Shena Jeffers Referrals: Shena Jeffers, [Primary Care Provider] - Disposition Disposition: Home, Self Care What to do if you have Problems For any increased pain, shortness of breath, bleeding, nausea or vomiting, chestpain, or any unexpected problems, contact your Primary Care Provider. Call [facility] ([phone]) or report to the closest Emergency Room. Call 911 if necessary. 01/11/24 2341 <Electronically signed by Esequiel Harris MD> Cosigner Signature (if applicable): CC: Dr. Shena Jeffers, DO ~ Signed [facility] Work Phone: 1(267) 259-715409-07-2023 Progress note Author Hosea Smith [facility] June 30, 2023 8:38am Note Date/Time June 30, 2023 8:38am [facility] Medical Records Department [address] [place] [address] Progress Note - Hospitalist 06/30/23832 MR#: [id number] Acct: [id number] Name: LIVIER SMALLS Rep #:[id number] : 1945 77 From: Hosea haji MD PCP: Dr. Shena Jeffers, Status:AD M [place] [facility] [id number] Subjective Subjective Doing well, feels better today. No issues overnight Objective Data Objective Data Vital Signs: Vital Signs Temp Pulse Resp BP Pulse Ox O2 Del Method O2 Flow Rate 99.2 F H 92 22 H 147/69 H 95 Nasal Cannula 2 06/30/23 05:45 06/30/23 06:38 06/30/23 06:38 06/30/23 05:45 06/30/23 06:38 06/30/23 06:38 06/30/23 06:38 Oxygen Flow Rate (L/min) 2 Oxygen Delivery Method Nasal Cannula Weight: 164 lb 3.91 oz Body Mass Index (BMI) 28.1 Intake & Output: Intake and Output for Last 24 Hours 06/29/23 06/30/23 07/01/23 03:59 03:59 03:59 Intake Total 1050 / 1050 Balance 1050 / 1050 Lab / Micro Data 06/30/23 06:16 06/30/23 06:16 Labs: Laboratory Results - last 24 hr 06/29/23 19:30: WBC 11.2 H, RBC 4.40, Hgb 11.3 L, Hct 36.7 L, MCV 83.4, MCH 25.7L, MCHC 30.8 L, RDW Std Deviation 47.3 H, RDW Coeff of Kristyn 15.5 H, Plt Count 357, MPV 11.4, Immature Gran % (Auto) 0.400, Neut % (Auto) 79.6 H, Lymph % (Auto) 9.7 L, [place] % (Auto) 9.5, Eos % (Auto) 0.1, Baso % (Auto) 0.7, Absolute Neuts (auto) 8.9 H, Absolute Lymphs (auto) 1.08, Nucleated RBC % 0, Sodium 133 L, Potassium 4.2, Chloride 99, Carbon Dioxide 26.0, Anion Gap 8, BUN 25 H, Creatinine 1.29 H, Est GFR (MDRD) Af Amer 51 L, Est GFR (MDRD) Non-Af 42 L, BUN/Creatinine Ratio 19.4, Glucose 312 H, Lactic Acid 1.1, Calcium 8.9, Magnesium 2.4, Total Bilirubin 0.50, AST 10 L, ALT 16, Alkaline Phosphatase 107,Total Protein 7.6, Albumin 3.1 L, Globulin 4.5 H, Albumin/Globulin Ratio 0.7 L 06/29/23 20:25: Urine Color Yellow, Urine Clarity Clear, Urine pH 6.0, Ur Specific Lee 1.010, Urine Protein 30 H, Urine Glucose (UA) 1000 H, Urine Ketones 50 H, Urine Occult Blood 25 H, Urine Nitrite Positive H, Urine BilirubinNegative, Urine Urobilinogen Normal, Ur Leukocyte Esterase 25 H, Urine RBC 0-5 SEEN, Urine WBC 5-10 SEEN, Ur Squamous Epith Cells 0 SEEN, Urine Bacteria RARE, Urine Mucus 0 SEEN 06/29/23 22:43: Acetone Level SMALL H 06/30/23 00:13: POC Glucose 319 H 06/30/23 06:05: POC Glucose 353 H 06/30/23 06:16: WBC 11.1 H, RBC 4.19 L, Hgb 11.0 L, Hct 34.6 L, MCV 82.6, MCH 26.3 L, MCHC 31.8 L, RDW Std Deviation 47.2 H, RDW Coeff of Kristyn 15.6 H, Plt Count 309, MPV 10.7, Immature Gran % (Auto) 0.400, Neut % (Auto) 81.5 H, Lymph %(Auto) 7.6 L, [place] % (Auto) 9.6, Eos % (Auto) 0.2, Baso % (Auto) 0.7, Absolute Neuts (auto) 9.0 H, Absolute Lymphs (auto) 0.84, Nucleated RBC % 0, Sodium 137, Potassium 4.0, Chloride 105, Carbon Dioxide 26.0, Anion Gap 6, BUN 17, Creatinine 0.80, Estim Creat Clear Calc 49.24, Est GFR (MDRD) Af Amer 89, Est GFR (MDRD) Non-Af 74, BUN/Creatinine Ratio 21.3 H, Glucose 280 H, Calcium 8.3 L,Total Bilirubin 0.50, AST 12 L, ALT 14, Alkaline Phosphatase 95, Total Protein 6.9, Albumin 2.6 L, Globulin 4.3 H, Albumin/Globulin Ratio 0.6 L Micro: Microbiology 06/29/23 21:59 Nasal Secretion SARS-CoV-2 Antigen (Rapid) - Final Radiography Diagnostic Testing: Radiology Impression Chest X-Ray 06/29/23 20:10 IMPRESSION: 1. There is overall improved appearance compared to prior comparison exam but still with increased attenuation and reticulations lung bases suboptimally evaluated due to overlying calcified breast implants. Consider lateral views for increased sensitivity and specificity. Electronically Signed: Bernardo Cavazos DO at 20:32 EDT , Physical Exam Narrative General: Alert, Oriented x3, Cooperative, No apparent distress HEENT: Atraumatic, PERRLA, EOMI, Normocephalic Oral: Moist Mucosa Neck: Supple, No JVD Lungs: Clear to auscultation, Normal air movement, No rhonchi, No wheeze, No rales Cardiovascular: Regular rate, Regular Rhythm, Normal S1, Normal S2, No murmurs Abdomen: Soft, Non Tender, Non-Distended, No Hepato-splenomegaly Extremities: No edema, Capillary Refill Less than 3 Seconds Skin: No rashes, No breakdown Musculoskeletal: No Tenderness to Palpation of Joints or Extremities Neurological: Cranial nerves II-XII grossly intact, Motor Exam 5/5 strength throughout, Sensory exam intact to light touch and pain Psych/Mental Status: Normal Affect, Appropriate Assessment & Plan Assessment/Plan (1) Acute UTI: PLAN: Plan 1. Acute metabolic encephalopathy secondary to UTI ? Continue with antibiotics ? Encephalopathy has resolved ? PT/OT for with weakness though she states that she feels like she could go home ? Urine cultures pending 2. IDDM type I ? She no longer has an insulin pump ? Continue with her long-acting insulin and will adjust as necessary ? Accu-Cheks ACHS 3. HTN/HLD/paroxysmal A-fib ? Blood pressures are stable ? Can resume her anticoagulation both for her A-fib and her history of PEs ? We will monitor blood pressure and make adjustments as necessary, continue with her home medications 4. Hypothyroidism ? Stable ? Continue with Synthroid 5. COPD with chronic hypoxic respiratory failure/history of PEs ? She is not requiring any more of her baseline oxygen at 2 L nasal cannula ? Not on any inhaler therapy at home but placed on inhaler therapy here ? Continue with anticoagulation DVT: Xarelto Charges/Coding Visit Charges Inpatient E&M: 99880 Subs Hosp L2 06/30/23 0838 <Electronically signed by Hosea Smith MD> Cosigner Signature (if applicable): CC: ~ Signed [facility] Work Phone: [phone]) 320-510809-07-2023 History and physical note Author Roxanne Saxena [facility] June 30, 2023 12:19am Note Date/Time June 29, 2023 9:56pm [facility] Medical Records Department [address] [place] [address] H&P Exam - Hospitalist 06/29/23 2151 MR#: [id number] Acct: [id number] Name: LIVIER SMALLS Rep #:[id number] : 1945 77 From: Roxanne Saxena MD PCP: Dr. Shena Jeffers, DO Status:AD M IN Location: [facility]3 [id number] HPI - General General Date of Admission: 06/29/23 Date of Service: 06/29/23 Chief Complaint: Debility, weakness, recent outpatient UTI diagnosis, worsening. HPI Narrative The patient is a 77 y/o F w/ PMHx: Chronic COPD w/ chronic hypoxic respiratory failure (2L NC), HTN, HLD, Hypothyroidism with history of Pepe's thyroiditis, Hx BL PE on xarelto, Former Tobacco use, IDDM with insulin pump in place, PAF, CKD II versus III unclear subtype, Chronic memory impairment who presents to the [facility] ED on 06/29/23 with history of general malaise and fatigue, sleeping more over the last 3 to 4 days with decreased appetite and onset of subjective fevers as well as chills with rigors at dinner with private physicianevaluation on day of presentation with urinalysis at that time concerning for UTI started on Macrobid with only 1 dose administered but given her debility prompted eventual ED evaluation. Patient per her good friend had barely been able to even get up from the table and when she was in the restroom she could not even get off the toilet requiring wheelchair usage because of the severity of the weakness. She denies any marked discomfort, dysuria, hesitancy or urgencybut this is similar to her past with UTIs she notes. Work-up in the ED [id number], heart rate 115 initially with most recent repeat 100, BP initially 137/101 with most recent repeat 153/64, respiratory rate 19, initially 90% on room air eventually desaturating requiring transition to 2 L nasal cannula now 95%, CBC with WBC 11.2, hemoglobin 11.3, MCV 83.4, platelet 357 with left shift, CMP with sodium 133, BUN/creatinine 25/1.29, anion gap of note 8, glucose 312, lactic acid 1.1, hepatic profile not marked appearing, urinalysis with specific remedy 1.010, protein 30, glucose 1000, ketone 50, occult blood 25, positive nitrite, leukocyte Estrace 25 with urine WBCs 5-10 with no urine bacteria, urineculture pending per ED, blood culture x2 pending per ED, chest x-ray with improved appearance when compared to previous exam however still increased attenuation and reticulations at the lung bases suboptimally evaluated secondaryto overlying calcified breast implants with recommendation for lateral views as well. Patient previous urine cultures with most recently noted 11/22/2022 Klebsiella with near bryant sensitivity except resistance to ampicillin which at that time she also had reported on her blood culture as well. COVID PCR pending upon requested evaluation to be cautious. In the ED patient ministered 1 L normal saline, Tylenol 1000 mg p.o. x1, IV Rocephin 1 g x 1. 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 Memory loss On home oxygen therapy Osteoporosis Pulmonary embolism, bilateral Smoker Home Medications amlodipine 5 mg-benazepril 10 mg capsule 1 cap PO DAILY blood pressure 09/08/21 [History Last Taken 09/07/22] rivaroxaban 20 mg tablet (Xarelto) 20 mg PO DAILY blood thinner 04/23/22 [History Last Taken 09/08/22] oxybutynin chloride 10 mg tablet,extended release 24 hr 10 mg PO DAILY bladder 09/08/22 [History Last Taken 09/07/22] simvastatin 10 mg tablet 10 mg PO DAILY cholesterol 09/08/22 [History Last Taken 09/07/22] levothyroxine 100 mcg tablet 100 mcg PO DAILY #30 tabs 03/02/23 [Rx Last Taken Unknown] cholecalciferol (vitamin D3) 50 mcg (2,000 unit) tablet (D3 DOTS) 125 mcg PO DAILY 06/29/23 [History Last Taken Unknown] magnesium 200 mg tablet 400 mg PO DAILY 06/29/23 [History Last Taken Unknown] nitrofurantoin monohydrate/macrocrystals 100 mg capsule 100 mg PO Q12H 06/29/23 [History Last Taken Unknown] Allergy/AdvReac Type Severity Reaction Status Date / Time ciprofloxacin [From Cipro] Allergy Intermediate hives Verified 06/29/23 18:55 Sulfa (Sulfonamide Allergy Intermediate hives Verified 06/29/23 18:55 Antibiotics) Family History (Updated 06/29/23 @ 22:[address] Roxanne Saxena MD) Father Diabetes Respiratory disease Mother No problems noted. Surgical History (Updated 06/29/23 @ 22:[address] Roxanne Saxena MD) S/P appendectomy S/P cholecystectomy S/P hysterectomy S/P insertion of insulin pump Social History (Updated 06/29/23 @ 22:[address] 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 alcohol intake: current alcohol intake frequency: a few times a month substance use type: does not use ROS ROS Narrative Admission Review of Systems: CONSTITUTIONAL: No weight loss, + fever, chills, weakness or fatigue. HEENT: Eyes: No visual loss, blurred vision, double vision or yellow sclerae. Ears, Nose, Throat: No hearing loss, sneezing, congestion, runny nose or sore throat. SKIN: No rash or itching, lesions, wounds. CARDIOVASCULAR: No chest pain, chest pressure or chest discomfort, palpitations,edema, orthopnea, syncopal events. RESPIRATORY: No shortness of breath, cough or sputum, wheezing, hemoptysis. GASTROINTESTINAL: + anorexia. No nausea, vomiting or diarrhea, abdominal pain, melena, BRBPR. GENITOURINARY: Recent PCP Dx UTI but denies dysuria, frequency, urgency or retention. NEUROLOGICAL: + Severe diffuse weakness, increased lethargy. No headache, dizziness, syncope, paralysis, ataxia, numbness or tingling in the extremities, focal weakness, change in bowel or bladder control, seizure. MUSCULOSKELETAL: + muscle, back pain, joint pain or stiffness. HEMATOLOGIC: No anemia, bleeding or bruising. LYMPHATICS: No enlarged nodes. No history of splenectomy. PSYCHIATRIC: No history of depression or anxiety. ENDOCRINOLOGIC: No reports of sweating, cold or heat intolerance. No polyuria orpolydipsia. ALLERGIES: + history of hives. Vital Signs Vital Signs Vital Signs: 06/29/23 18:58 06/29/23 19:01 06/29/23 19:46 Temperature 99.3 F H Temperature Source Oral Pulse Rate 115 H 100 Respiratory Rate 19 H 19 H Respiratory Effort Normal Non-Labored Respiratory Pattern Normal Blood Pressure 137/101 H 153/64 H Blood Pressure Mean 113 93 Pulse Ox 90 95 Oxygen Delivery Method Room Air Nasal Cannula Oxygen Flow Rate (L/min) 2 Weight Weight: 146 lb 14.4 oz Body Mass Index (BMI) 25.2 Physical Exam Narrative Physical Examination: General: Awake, alert, oriented to place, year, month, improved with less lethargy than initial ED presentation per staff report, remains cooperative, seated upright in the ED bed, fatigued and ill-appearing. Skin: Normal color, normal turgor, no icterus, no cyanosis. HEENT: AT/NC, EOMI, PERRLA, dry MM, no carotid bruits or JVD noted. Lungs: Mildly diminished, greater bases, mildly increased respiratory rate but no distress, no rales, ronchi or wheezing. Heart: Mildly tachycardic with regular rhythm; no gallop, rub audible. Abdomen: Soft, NTTP, no suprapubic discomfort, ND, mildly hyperactive BS, no HSM. Extremities: No cyanosis, clubbing, or edema. Neurological: Patient awake, alert, oriented as noted, cognitive function improving, suspect nearing baseline intact; pupils equally reactive to light andaccommodation, cranial nerves grossly normal, moving all 4 extremities, no focaldeficits, strength severely globally decreased secondary to acute presentation. Psychiatric: Affect appears flat, fatigued, ill-appearing, no acute evidence of depressive or anxiety feelings. Results Lab / Micro Data 06/29/23 19:30 06/29/23 19:30 Labs: Laboratory Results - last 24 hr 06/29/23 19:30: WBC 11.2 H, RBC 4.40, Hgb 11.3 L, Hct 36.7 L, MCV 83.4, MCH 25.7L, MCHC 30.8 L, RDW Std Deviation 47.3 H, RDW Coeff of Kristyn 15.5 H, Plt Count 357, MPV 11.4, Immature Gran % (Auto) 0.400, Neut % (Auto) 79.6 H, Lymph % (Auto) 9.7 L, [place] % (Auto) 9.5, Eos % (Auto) 0.1, Baso % (Auto) 0.7, Absolute Neuts (auto) 8.9 H, Absolute Lymphs (auto) 1.08, Nucleated RBC % 0, Sodium 133 L, Potassium 4.2, Chloride 99, Carbon Dioxide 26.0, Anion Gap 8, BUN 25 H, Creatinine 1.29 H, Est GFR (MDRD) Af Amer 51 L, Est GFR (MDRD) Non-Af 42 L, BUN/Creatinine Ratio 19.4, Glucose 312 H, Lactic Acid 1.1, Calcium 8.9, Magnesium 2.4, Total Bilirubin 0.50, AST 10 L, ALT 16, Alkaline Phosphatase 107,Total Protein 7.6, Albumin 3.1 L, Globulin 4.5 H, Albumin/Globulin Ratio 0.7 L 06/29/23 20:25: Urine Color Yellow, Urine Clarity Clear, Urine pH 6.0, Ur Specific Lee 1.010, Urine Protein 30 H, Urine Glucose (UA) 1000 H, Urine Ketones 50 H, Urine Occult Blood 25 H, Urine Nitrite Positive H, Urine BilirubinNegative, Urine Urobilinogen Normal, Ur Leukocyte Esterase 25 H, Urine RBC 0-5 SEEN, Urine WBC 5-10 SEEN, Ur Squamous Epith Cells 0 SEEN, Urine Bacteria RARE, Urine Mucus 0 SEEN Radiology Impression Chest X-Ray 06/29/23 20:10 IMPRESSION: 1. There is overall improved appearance compared to prior comparison exam but still with increased attenuation and reticulations lung bases suboptimally evaluated due to overlying calcified breast implants. Consider lateral views for increased sensitivity and specificity. Electronically Signed: Bernardo Cavazos, at 20:32 EDT , Assessment & Plan Assessment/Plan (1) Acute UTI: PLAN: Plan The patient is a 77 y/o F w/ PMHx: Chronic COPD w/ chronic hypoxic respiratory failure (2L NC), HTN, HLD, Hypothyroidism with history of Pepe's thyroiditis, Hx BL PE on xarelto, Former Tobacco use, IDDM with insulin pump in place, PAF, CKD II versus III unclear subtype, Chronic memory impairment who presents to the [facility] ED on 06/29/23 with history of general malaise and fatigue, sleeping more over the last 3 to 4 days with decreased appetite and onset of subjective fevers as well as chills with rigors at dinner with private physicianevaluation on day of presentation with urinalysis at that time concerning for UTI started on Macrobid with only 1 dose administered but given her debility prompted eventual ED evaluation. #1. Acute Complicated Urinary Tract Infection: Will admit to [facility], UA upon ED, pending UCx, continue IVFs, monitor I/Os, continue IV Rocephin based on prior sensitivties as noted w/ transition as able pending sensitivities and speciation. Bld cx x 2 obtained in the ED. given severity of debility and weakness associated will have PT/OT/case management consultation for discharge planning. #2. IDDM type I with insulin pump with hyperglycemia: Patient with hyperglycemia upon presentation, likely related with acute infection, anion gap normal despite urine with noted 50 ketone, acetone level will be requested to becautious, will allow ADA diet if no nausea or emesis associate with acute presentation, will continue insulin pump and will allow Accu-Cheks off the device if at least the first 2-3 match with Accu-Cheks, will continue insulin sliding scale overlap per device protocol. Patient following of note with endocrinology outpatient. #3. CKD stage II suspected but labs have vacillated and certainly could be progressive to CKD stage III unclear subtype: Admission BUN/Cr 25/1.29, prior baseline creatinine noted to be primarily 0.6-0.9, most recently 03/02/2023 creatinine 1.14 at that time but has vacillated since 2021 although there have been admissions with acute cystitis and THANIA of note. #4. Chronic normocytic anemia: Admission hemoglobin 11.3, baseline more recently appears primarily 9-11 range, prior to this 11/26/2022 hemoglobin 9.5, continue to trend. #5. Hypertension: Continue home regimen including amlodipine, benazepril which will be continued given renal function is not significantly elevated but low threshold to hold if altered, PRN hydralazine. #6. Hyperlipidemia: We will continue patient on statin therapy. #7. Hypothyroidism: History of Pepe's thyroiditis, will continue patient home levothyroxine regimen. #8. History of bilateral pulmonary emboli: We will continue patient home Xarelto regimen. #9. PAF: Noted previous admission with PAF in the acute setting, not on any rate or rhythm agent, will continue patient home Xarelto regimen. #10. Chronic COPD w/ chronic hypoxic respiratory failure (2L NC): Per current list not on inhaler regimen but clarifying, will maintain on ATC budesonide therapy in the interim, PRN albuterol, continue home oxygen supplementation, HOB, IS parameters. #11. Former Tobacco Abuse: Encouraged continued tobacco cessation. #12. DVT prophylaxis: We will continue patient home Xarelto regimen. #13. CODE status: Patient JOSEFINA is her good friend Don and living will is currently in place. Discussed CODE status at length including difference betweenFULL code, DNR-CCA and DNR-CC status. Following discussions about the differences in these status, requested Full Code status. Advanced Care Planning Face to Face Time: 16 minutes. Charges/Coding Visit Charges Inpatient E&M: 70304 Init Hosp L3 Procedures Hospitalists Procedures: 51075 Advncd Care Plan 30 Min 06/29/232220 <Electronically signed by Roxanne Saxena MD> Cosigner Signature (if applicable): CC: Dr. Roxanne Saxena MD; Dr. Shena Jeffers DO~ Signed ADDENDUM by Dr. Roxanne Saxena MD on 06/30/23 at 0019 Addendum Patient now reporting that she has not been using the insulin pump and is now reviewing endocrinology notes it appears that potentially she had been uncontrolled or noncompliant and is not a candidate for tight control with previous visit reporting Lantus 4 units once daily and lispro 8 to 10 unit 3 times daily CM however it sounds from the notes is if she eats what ever she wants an attempt to correct it with insulin. We will use insulin sliding scale with Accu-Cheks and overlap with her current listed long-acting with dose now. 06/30/2318<Electronically signed by Roxanne Saxena MD> Cosigner Signature (if applicable): cc: Dr. Roxanne Saxena MD; Dr. Shena Jeffers DO ~* Signed [facility] Work Phone: 1(636) 849-416309-06-2023 Discharge summary Author Lb Serna [facility] June 29, 2023 9:51pm Note Date/Time June 29, 2023 7:54pm [facility] Medical Records Department [address] [place] [id number] Emergency Department Summary 06/29/23 MR#: [id number] Acct: [id number] Name: LIVIER SMALLS Rep #:[id number] : 1945 77 From: Lb Serna MD PCP: Dr. Shena Jeffers DO Status:RE G ER Location: ED HPI History of Present Illness Chief Complaint: Weakness Informant: patient and spouse/S.O. Narrative Narrative: This with generalized weakness and fevers. Patient and her states she has not felt well for 3 maybe 4 days. She has been sleeping more. She has had a lot less energy. She has had decreased appetite. states that he barely got her out of a restaurant last night. He had trouble getting her in the car because she was so weak generally. He was able to get her home. She is was evidently very warm and had rigors at dinner. But her temperature was not checked then. She denies any specific symptoms. However, she was seen in her private physician's office today. A urinalysis was evidently positive for UTI and she was given Macrobid. She has taken 1 dose. She seems to be just weaker tonight. The could not get her off the toilet. He could barely get her from dinner table over to the bathroom. He had to put her on a wheelchair and then get her onto the toilet but just was not able to get her off because she was so weak. This was not lateralizing weakness it was generalized weakness. 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 Memory loss On home oxygen therapy Osteoporosis Pulmonary embolism, bilateral Smoker Home Medications amlodipine 5 mg-benazepril 10 mg capsule 1 cap PO DAILY blood pressure 09/08/21 [History Last Taken 09/07/22] rivaroxaban 20 mg tablet (Xarelto) 20 mg PO DAILY blood thinner 04/23/22 [History Last Taken 09/08/22] oxybutynin chloride 10 mg tablet,extended release 24 hr 10 mg PO DAILY bladder 09/08/22 [History Last Taken 09/07/22] simvastatin 10 mg tablet 10 mg PO DAILY cholesterol 09/08/22 [History Last Taken 09/07/22] levothyroxine 100 mcg tablet 100 mcg PO DAILY #30 tabs 03/02/23 [Rx Last Taken Unknown] cholecalciferol (vitamin D3) 50 mcg (2,000 unit) tablet (D3 DOTS) 125 mcg PO DAILY 06/29/23 [History Last Taken Unknown] magnesium 200 mg tablet 400 mg PO DAILY 06/29/23 [History Last Taken Unknown] nitrofurantoin monohydrate/macrocrystals 100 mg capsule 100 mg PO Q12H 06/29/23 [History Last Taken Unknown] Allergy/AdvReac Type Severity Reaction Status Date / Time ciprofloxacin [From Cipro] Allergy Intermediate hives Verified 06/29/23 18:55 Sulfa (Sulfonamide Allergy Intermediate hives Verified 06/29/23 18:55 Antibiotics) Family History Father Diabetes Respiratory disease Surgical History S/P insertion of insulin pump Social History household members: significant other and none number of children: 2 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 Smoking Status: Former smoker alcohol intake: current alcohol intake frequency: a few times a month substance use type: does not use ROS ROS ED Constitutional Constitutional ED: Reports chills, fever(s) and subjective Eyes Eyes: Denies blurry vision ENT ENT ED: Denies rhinorrhea or sore throat Cardiovascular Cardiovascular: Denies chest pain, palpitations or racing heartbeat Respiratory/Chest Respiratory/Chest: Denies cough or dyspnea Gastrointestinal Gastrointestinal: Denies abdominal pain, diarrhea, nausea or vomiting Genitourinary Genitourinary ED: Denies dysuria Musculoskeletal Musculoskeletal: Denies myalgias Integumentary Denies rash Neurologic Neurologic: Denies headache(s) or paresthesias Endocrine Endocrinology: Denies polydipsia or polyuria Hematologic/Lymphatic Hematologic/Lymphatic: Reports easy bleeding and easy bruising; Denies lymphadenopathy Allergic/Immunologic Allergic/Immunologic ED: Denies urticaria EXAM Physical Exam Narrative Exam Narrative: Patient is awake. She is alert. She is not the best informant. She evidently is a little bit more confused than would be her baseline. She is mostly tired. HEENT shows minimally dry mucous membranes. No sinus tenderness. Neck is supple Heart is regular with a rate of about 105 showing mild tachycardia. But it appears to be a sinus rhythm on the monitor without ectopy. Lungs are actually clear on exam. She may have some history of COPD but I do not hear wheezing now. Her oxygen level are normal at 95% on her 2 L showing nohypoxia at that level. Abdomen is soft it is not tender. I do not get any CVA or suprapubic area tenderness. Extremities show no rash or swelling. Skin shows no rash. It may be slightly warm. Const Vital Signs: 06/29/23 18:58 06/29/23 19:01 06/29/23 19:46 Temperature 99.3 F H Temperature Source Oral Pulse Rate 115 H 100 Respiratory Rate 19 H 19 H Respiratory Effort Normal Non-Labored Respiratory Pattern Normal Blood Pressure 137/101 H 153/64 H Blood Pressure Mean 113 93 Pulse Ox 90 95 Oxygen Delivery Method Room Air Nasal Cannula Oxygen Flow Rate (L/min) 2 MDM MDM MDM Narrative Medical decision making narrative: Patient CBC shows mild elevation of her white count above her baseline at 11.2. Mild anemia. Platelets are relatively normal. Patient's electrolytes showed just a slight rise of her creatinine to 1.29. Kulwant is given IV fluids here. Sodium was 133. Her glucose was high at 312. Tanya I talked with her and her . Her just not long ago given her4 units of insulin. He watches her blood sugar on a ULTRA Testing alivia. We checked it in the room and she is now coming down to 241. His level did show about 315 also. Therefore she was not acutely treated for this hyperglycemia here as she is already received treatment. Liver for test showed normal acute abnormality. Urine was positive nitrites positive leukocyte Estrace 5-10 white cells with rare bacteria. Has had prior UTIs without symptoms. Her last UTI showed Klebsiella. I have initiated Rocephin. Patient is still weak. She is not safe to get up and walk. Normally she will walk by herself or just with her . She does not use a walker or cane. This is a significant reduction in her strength and function. Her has been trying to carry her from point a to point B but he is just too weak to do this also. They do not feel she is safe to go home which I understand. With her age, fever this I think she needs to come in. She is not coughing. Although her urine does show some signs of urine infection is not the most markedly abnormal 1. She already did have a dose biotics prior to arrival though. I will also send a COVID off just to make sure. Lab Data Attestation: I reviewed the patient's lab results. Labs: Laboratory Results - last 24 hr 06/29/23 06/29/23 19:30 20:25 WBC 11.2 H RBC 4.40 Hgb 11.3 L Hct 36.7 L MCV 83.4 MCH 25.7 L MCHC 30.8 L RDW Std Deviation 47.3 H RDW Coeff of Kristyn 15.5 H Plt Count 357 MPV 11.4 Immature Gran % (Auto) 0.400 Neut % (Auto) 79.6 H Lymph % (Auto) 9.7 L [place] % (Auto) 9.5 Eos % (Auto) 0.1 Baso % (Auto) 0.7 Absolute Neuts (auto) 8.9 H Absolute Lymphs (auto) 1.08 Nucleated RBC % 0 Sodium 133 L Potassium 4.2 Chloride 99 Carbon Dioxide 26.0 Anion Gap 8 BUN 25 H Creatinine 1.29 H Est GFR (MDRD) Af Amer 51 L Est GFR (MDRD) Non-Af 42 L BUN/Creatinine Ratio 19.4 Glucose 312 H Lactic Acid 1.1 Calcium 8.9 Magnesium 2.4 Total Bilirubin 0.50 AST 10 L ALT 16 Alkaline Phosphatase 107 Total Protein 7.6 Albumin 3.1 L Globulin 4.5 H Albumin/Globulin Ratio 0.7 L Urine Color Yellow Urine Clarity Clear Urine pH 6.0 Ur Specific Lee 1.010 Urine Protein 30 H Urine Glucose (UA) 1000 H Urine Ketones 50 H Urine Occult Blood 25 H Urine Nitrite Positive H Urine Bilirubin Negative Urine Urobilinogen Normal Ur Leukocyte Esterase 25 H Urine RBC 0-5 SEEN Urine WBC 5-10 SEEN Ur Squamous Epith Cells 0 SEEN Urine Bacteria RARE Urine Mucus 0 SEEN Radiography Diagnostic Testing: Clinical Impression(s) from Imaging Studies Chest X-Ray 06/29/23 20:10 IMPRESSION: 1. There is overall improved appearance compared to prior comparison exam but still with increased attenuation and reticulations lung bases suboptimally evaluated due to overlying calcified breast implants. Consider lateral views for increased sensitivity and specificity. Electronically Signed: Bernardo Cavazos DO at 20:32 EDT , Management Discussion w/another healthcare provider: Hospitalist Discharge Plan Dx/Rx/DC Orders Clinical Impression: Creatinine elevation, Generalized weakness, Acute UTI, Inability to walk, Dehydration Disposition Disposition: Acute Care Hospital [facility] What to do if you have Problems For any increased pain, shortness of breath, bleeding, nausea or vomiting, chestpain, or any unexpected problems, contact your Primary Care Provider. Call [employer] [facility] ([phone]) or report to the closest Emergency Room. Call 911 if necessary. 06/29/232150 <Electronically signed by Lb Serna MD> Cosigner Signature (if applicable): CC: Dr. Shena Jeffers, DO ~ Signed [facility] Work Phone: 1(866) 833-104709-06-2023 Discharge summary Author Lb Serna [facility] June 29, 2023 9:51pm Note Date/Time June 29, 2023 7:54pm [facility] Medical Records Department [address] [place] [address] Emergency Department Summary 06/29/23 MR#: [id number] Acct: [id number] Name: LIVIER SMALLS Rep #:[id number] : 1945 77 From: Lb Serna MD PCP: Dr. Shena Jeffers, Status:RE G ER Location: ED HPI History of Present Illness Chief Complaint: Weakness Informant: patient and spouse/S.O. Narrative Narrative: This with generalized weakness and fevers. Patient and her states she has not felt well for 3 maybe 4 days. She has been sleeping more. She has had a lot less energy. She has had decreased appetite. states that he barely got her out of a restaurant last night. He had trouble getting her in the car because she was so weak generally. He was able to get her home. She is was evidently very warm and had rigors at dinner. But her temperature was not checked then. She denies any specific symptoms. However, she was seen in her private physician's office today. A urinalysis was evidently positive for UTI and she was given Macrobid. She has taken 1 dose. She seems to be just weaker tonight. The could not get her off the toilet. He could barely get her from dinner table over to the bathroom. He had to put her on a wheelchair and then get her onto the toilet but just was not able to get her off because she was so weak. This was not lateralizing weakness it was generalized weakness. 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 Memory loss On home oxygen therapy Osteoporosis Pulmonary embolism, bilateral Smoker Home Medications amlodipine 5 mg-benazepril 10 mg capsule 1 cap PO DAILY blood pressure 09/08/21 [History Last Taken 09/07/22] rivaroxaban 20 mg tablet (Xarelto) 20 mg PO DAILY blood thinner 04/23/22 [History Last Taken 09/08/22] oxybutynin chloride 10 mg tablet,extended release 24 hr 10 mg PO DAILY bladder 09/08/22 [History Last Taken 09/07/22] simvastatin 10 mg tablet 10 mg PO DAILY cholesterol 09/08/22 [History Last Taken 09/07/22] levothyroxine 100 mcg tablet 100 mcg PO DAILY #30 tabs 03/02/23 [Rx Last Taken Unknown] cholecalciferol (vitamin D3) 50 mcg (2,000 unit) tablet (D3 DOTS) 125 mcg PO DAILY 06/29/23 [History Last Taken Unknown] magnesium 200 mg tablet 400 mg PO DAILY 06/29/23 [History Last Taken Unknown] nitrofurantoin monohydrate/macrocrystals 100 mg capsule 100 mg PO Q12H 06/29/23 [History Last Taken Unknown] Allergy/AdvReac Type Severity Reaction Status Date / Time ciprofloxacin [From Cipro] Allergy Intermediate hives Verified 06/29/23 18:55 Sulfa (Sulfonamide Allergy Intermediate hives Verified 06/29/23 18:55 Antibiotics) Family History Father Diabetes Respiratory disease Surgical History S/P insertion of insulin pump Social History household members: significant other and none number of children: 2 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 Smoking Status: Former smoker alcohol intake: current alcohol intake frequency: a few times a month substance use type: does not use ROS ROS ED Constitutional Constitutional ED: Reports chills, fever(s) and subjective Eyes Eyes: Denies blurry vision ENT ENT ED: Denies rhinorrhea or sore throat Cardiovascular Cardiovascular: Denies chest pain, palpitations or racing heartbeat Respiratory/Chest Respiratory/Chest: Denies cough or dyspnea Gastrointestinal Gastrointestinal: Denies abdominal pain, diarrhea, nausea or vomiting Genitourinary Genitourinary ED: Denies dysuria Musculoskeletal Musculoskeletal: Denies myalgias Integumentary Denies rash Neurologic Neurologic: Denies headache(s) or paresthesias Endocrine Endocrinology: Denies polydipsia or polyuria Hematologic/Lymphatic Hematologic/Lymphatic: Reports easy bleeding and easy bruising; Denies lymphadenopathy Allergic/Immunologic Allergic/Immunologic ED: Denies urticaria EXAM Physical Exam Narrative Exam Narrative: Patient is awake. She is alert. She is not the best informant. She evidently is a little bit more confused than would be her baseline. She is mostly tired. HEENT shows minimally dry mucous membranes. No sinus tenderness. Neck is supple Heart is regular with a rate of about 105 showing mild tachycardia. But it appears to be a sinus rhythm on the monitor without ectopy. Lungs are actually clear on exam. She may have some history of COPD but I do not hear wheezing now. Her oxygen level are normal at 95% on her 2 L showing nohypoxia at that level. Abdomen is soft it is not tender. I do not get any CVA or suprapubic area tenderness. Extremities show no rash or swelling. Skin shows no rash. It may be slightly warm. Const Vital Signs: 06/29/23 18:58 06/29/23 19:01 06/29/23 19:46 Temperature 99.3 F H Temperature Source Oral Pulse Rate 115 H 100 Respiratory Rate 19 H 19 H Respiratory Effort Normal Non-Labored Respiratory Pattern Normal Blood Pressure 137/101 H 153/64 H Blood Pressure Mean 113 93 Pulse Ox 90 95 Oxygen Delivery Method Room Air Nasal Cannula Oxygen Flow Rate (L/min) 2 MDM MDM MDM Narrative Medical decision making narrative: Patient CBC shows mild elevation of her white count above her baseline at 11.2. Mild anemia. Platelets are relatively normal. Patient's electrolytes showed just a slight rise of her creatinine to 1.29. Butshe is given IV fluids here. Sodium was 133. Her glucose was high at 312. Tanya I talked with her and her . Her just not long ago given her4 units of insulin. He watches her blood sugar on a ULTRA Testing alivia. We checked it in the room and she is now coming down to 241. His level did show about 315 also. Therefore she was not acutely treated for this hyperglycemia here as she is already received treatment. Liver for test showed normal acute abnormality. Urine was positive nitrites positive leukocyte Estrace 5-10 white cells with rare bacteria. Has had prior UTIs without symptoms. Her last UTI showed Klebsiella. I have initiated Rocephin. Patient is still weak. She is not safe to get up and walk. Normally she will walk by herself or just with her . She does not use a walker or cane. This is a significant reduction in her strength and function. Her has been trying to carry her from point a to point B but he is just too weak to do this also. They do not feel she is safe to go home which I understand. With her age, fever this I think she needs to come in. She is not coughing. Although her urine does show some signs of urine infection is not the most markedly abnormal 1. She already did have a dose biotics prior to arrival though. I will also send a COVID off just to make sure. Lab Data Attestation: I reviewed the patient's lab results. Labs: Laboratory Results - last 24 hr 06/29/23 06/29/23 19:30 20:25 WBC 11.2 H RBC 4.40 Hgb 11.3 L Hct 36.7 L MCV 83.4 MCH 25.7 L MCHC 30.8 L RDW Std Deviation 47.3 H RDW Coeff of Kristyn 15.5 H Plt Count 357 MPV 11.4 Immature Gran % (Auto) 0.400 Neut % (Auto) 79.6 H Lymph % (Auto) 9.7 L [place] % (Auto) 9.5 Eos % (Auto) 0.1 Baso % (Auto) 0.7 Absolute Neuts (auto) 8.9 H Absolute Lymphs (auto) 1.08 Nucleated RBC % 0 Sodium 133 L Potassium 4.2 Chloride 99 Carbon Dioxide 26.0 Anion Gap 8 BUN 25 H Creatinine 1.29 H Est GFR (MDRD) Af Amer 51 L Est GFR (MDRD) Non-Af 42 L BUN/Creatinine Ratio 19.4 Glucose 312 H Lactic Acid 1.1 Calcium 8.9 Magnesium 2.4 Total Bilirubin 0.50 AST 10 L ALT 16 Alkaline Phosphatase 107 Total Protein 7.6 Albumin 3.1 L Globulin 4.5 H Albumin/Globulin Ratio 0.7 L Urine Color Yellow Urine Clarity Clear Urine pH 6.0 Ur Specific Lee 1.010 Urine Protein 30 H Urine Glucose (UA) 1000 H Urine Ketones 50 H Urine Occult Blood 25 H Urine Nitrite Positive H Urine Bilirubin Negative Urine Urobilinogen Normal Ur Leukocyte Esterase 25 H Urine RBC 0-5 SEEN Urine WBC 5-10 SEEN Ur Squamous Epith Cells 0 SEEN Urine Bacteria RARE Urine Mucus 0 SEEN Radiography Diagnostic Testing: Clinical Impression(s) from Imaging Studies Chest X-Ray 06/29/23 20:10 IMPRESSION: 1. There is overall improved appearance compared to prior comparison exam but still with increased attenuation and reticulations lung bases suboptimally evaluated due to overlying calcified breast implants. Consider lateral views for increased sensitivity and specificity. Electronically Signed: Bernardo Cavazos DO at 20:32 EDT , Management Discussion w/another healthcare provider: Hospitalist Discharge Plan Dx/Rx/DC Orders Clinical Impression: Creatinine elevation, Generalized weakness, Acute UTI, Inability to walk, Dehydration Disposition Disposition: Acute Care Hospital [facility] What to do if you have Problems For any increased pain, shortness of breath, bleeding, nausea or vomiting, chestpain, or any unexpected problems, contact your Primary Care Provider. Call [facility] ([phone]) or report to the closest Emergency Room. Call 911 if necessary. 06/29/232150 <Electronically signed by Lb Serna MD> Cosigner Signature (if applicable): CC: Dr. Shena Jeffers DO ~ Signed [facility] Work Phone: 1(604) 223-275002-02-[address] Maravilla [facility] November 25, 2022 4:19pm Note Date/Time November 25, 2022 8 :19am [facility] Medical Records Department [address] [place] [address] Progress Note - Hospitalist 11/25/22811 MR#: [id number] Acct: [id number] Name: LIVIER SMALLS Rep #:[id number] : 1945 77 From: Lizz Maravilla MD PCP: Dr. Shena Jeffers DO Status:AD M IN [facility] Subjective Subjective Is beginning to feel better today but still feels generally weak, no other complaints at this time Objective Data Objective Data Vital Signs: Vital Signs Temp Pulse Resp BP Pulse Ox O2 Del Method O2 Flow Rate 97.9 F 99 18 151/55 H 94 Nasal Cannula 2 11/25/22 06:35 11/25/22 06:35 11/25/22 06:35 11/25/22 06:35 11/25/22 06:35 11/25/22 06:35 11/25/22 06:35 Oxygen Flow Rate (L/min) 2 Oxygen Delivery Method Nasal Cannula Weight: 66.7 kg Body Mass Index (BMI) 25.2 Intake & Output: Intake and Output for Last 24 Hours 11/23/22 11/24/22 11/25/22 23:59 23:59 23:59 Intake Total 2755 / 2755 1841.67 / 1841.67 Output Total 1750 / 1750 350 / 350 Balance 1005 / 1005 1491.67 / 1491.67 Lab / Micro Data Result Diagrams: 11/25/22 04:30 11/25/22 04:30 Labs: Laboratory Results - last 24 hr 11/24/22 11:18: POC Glucose 422 H 11/24/22 13:05: Sodium 136, Potassium 4.6, Chloride 103, Carbon Dioxide 23.0, Anion Gap 10, BUN 25 H, Creatinine 1.03 H, Estim Creat Clear Calc 38.24, Est GFR(MDRD) Af Amer 66, Est GFR (MDRD) Non-Af 55 L, BUN/Creatinine Ratio 24.3 H, Glucose 431 H, Calcium 9.0 11/24/22 13:05: Lactic Acid 0.9 11/24/22 13:05: TSH 0.02 L 11/24/22 13:05: Magnesium 2.0 11/24/22 16:40: POC Glucose 413 H 11/24/22 20:46: POC Glucose 303 H 11/25/22 04:30: WBC 9.7, RBC 3.42 L, Hgb 9.0 L, Hct 29.9 L, MCV 87.4, MCH 26.3 L, MCHC 30.1 L D, RDW Std Deviation 49.4 H, RDW Coeff of Kristyn 15.4 H, Plt Count 283, MPV 11.7, Immature Gran % (Auto) 0.600, Neut % (Auto) 72.8 H, Lymph % (Auto) 12.1 L, [place] % (Auto) 11.1 H, Eos % (Auto) 2.9, Baso % (Auto) 0.5, Absolute Neuts (auto) 7.0, Absolute Lymphs (auto) 1.17, Nucleated RBC % 0 11/25/22 04:30: Sodium 138, Potassium 4.2, Chloride 106, Carbon Dioxide 26.0, Anion Gap 6, BUN 19 H, Creatinine 0.80, Estim Creat Clear Calc 49.24, Est GFR (MDRD) Af Amer 89, Est GFR (MDRD) Non-Af 74, BUN/Creatinine Ratio 23.8 H, Glucose 277 H, Calcium 8.8 Micro: Microbiology 11/22/22 14:50 Blood Culture (Wb) - Anticubital Right Blood Culture - Final Klebsiella pneumoniae sp pneum 11/22/22 15:15 Urine Catheter - King Legionella Antigen - Final 11/22/22 15:15 Urine Catheter - King Streptococcus pneumoniae Antigen (M - Final 11/22/22 15:15 Urine Catheter - King Urine Culture - Final Klebsiella pneumoniae sp pneum 11/22/22 15:30 Blood Culture (Wb) - Left Hand Blood Culture - Preliminary No growth in 48 hours. 11/22/22 15:06 Nasal Secretion SARS-CoV-2 & FLU Antigen (Rapid) - Final ABG Data ABG results: ABG 11/24/22 13:48 Specimen Type TRAMAINE VBG pH 7.35 VBG pO2 90 H VBG HCO3 20 L VBG Total CO2 21 L VBG O2 Sat (Calc) 97 H VBG Base Excess -6 L POC Mix VBG pCO2 Pt Tmp 36.6 L O2 Delivery Device Cannula Liter Flow 2.0 Radiography Diagnostic Testing: Radiology Impression Chest CT 11/24/22 15:10 IMPRESSION: Bilateral pleural effusions with basilar consolidation/atelectasis. There is a lingular focal consolidation/atelectasis Left renal calculi and left renal cyst. Electronically Signed: Anders Quintanilla DO at 17:24 EST Reading Location ID and State: [id number] / [place] Tel [phone], Service support , Rhythm Strip Rhythm Strip: Sinus Tach Rate: 120 Ectopy: None Physical Exam Narrative General: Alert, oriented, no apparent distress HEENT: Atraumatic, normocephalic Eyes: Anicteric, normal conjunctiva, extraocular movements grossly intact Neck: Supple Respiratory: Somewhat diminished at the bases, normal respiratory effort Cardiovascular: Regular rate and rhythm GI: Soft, nontender, nondistended Extremities: Left lower extremity with trace to 1+ edema compared to right Musculoskeletal: Moving all extremities Neuro: No overt focal neurological deficits Skin: No rashes appreciated Psych: Cooperative Assessment & Plan Assessment/Plan (1) Sepsis: (2) Acute metabolic encephalopathy: (3) Acute UTI: (4) Pneumonia: PLAN: Plan 77-year-old with history of COPD, diabetes, hypothyroidism, bilateral PEs, hypertension who presented 11/22/2022 with confusion for 1 day. In the ED history obtained from the . In the ED she was noted to be tachycardic and confused and was given IV fluids as her lactic was 3.5. Was noted to have infiltrate on chest x-ray as well as UA concerning for UTI and she was given Rocephin and azithromycin. 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 Was mildly tachycardic overnight but no hypotension continue Rocephin 2/2: Continue Rocephin, slowly improving. Blood and urine growing Klebsiella pneumonia sensitive to everything but ampicillin #New onset A-fib with RVR Responding to metoprolol Increase metoprolol dose Query if this could be due to her thyroid/Synthroid though she has multiple reasons that she could have A-fib Echo with an EF of 70% and diastolic function indeterminant We will give lower dose of Synthroid dose for tomorrow and try to contact her tapper helper Patient is already on Xarelto, continue #Hypothyroidism Levothyroxine 2/2: TSH 0.02. Free T4 on the upper limits of normal, given new onset A-fib concern that this could be due to somewhat hyperthyroid state. We will decreasedose for tomorrow and attempt to contact her tapper helper regarding dosing and if any changes warranted long-term #Type 1 diabetes mellitus Continue glargine, sliding scale insulin was added 11/24: Added back her daytime insulin and added Premeal due to significantly elevated glucose. No gap on BMP this morning 2/2: Continue to adjust insulin. Has started to trend down #Acute metabolic encephalopathy Secondary to sepsis and underlying infection on top of her underlying dementia Treat underlying cause Significantly improved #History of bilateral pulmonary embolism Xarelto #Hypertension Continue amlodipine and lisinopril #COPD Does not appear to be on any underlying medications next and albuterol as needed #DVT ppx: On Xarelto Lizz Maravilla MD Time spent in the patient's overall evaluation,decision-making process, review of diagnostic data, adjustment of management, discussion with other providers, nursing nursing and ancillary staff involved in patient's care documentation, 30minutes Charges/Coding Visit Charges Inpatient E&M: 14456 Subs Hosp L2 11/25/22 1619 <Electronically signed by Lizz Maravilla MD> Cosigner Signature (if applicable): CC: ~ Signed [facility] Work Phone: 1(290) 589-467402-01-[address] Lucero [facility] November 24, 2022 9:31pm Note Date/Time November 24, 2022 9 :31pm [facility] Medical Records Department [address] [place] [address] Progress Note 11/24/222128 MR#: [id number] Acct: [id number] Name: LIVIER SMALLS Rep #:[id number] : 1945 77 From: Janay Lucero MD PCP: Dr. Shena Jeffers, DO Status:AD M IN Location: [address] Progress Note Notified of patient with elevated heart rates 150-160s. EKG shows A. fib with RVR, previous EKG showed sinus tachycardia Patient already on Xarelto Will check TSH and magnesium Start on metoprolol 25 mg p.o. twice daily Transfer to PCU for closer monitoring 11/24/222130 <Electronically signed by Janay Lucero MD> Janay Lucero MD Cosigner Signature (if applicable): CC: ~ Signed [facility] Work Phone: 1(560) 226-778702-01-[address] Maravilla [facility] November 24, 2022 4:08pm Note Date/Time November 24, 2022 7 :14am [facility] Medical Records Department [address] [place] [address] Progress Note - Hospitalist 11/24/22709 MR#: [id number] Acct: [id number] Name: LIVIER SMALLS Rep #:[id number] : 1945 77 From: Lizz Maravilla MD PCP: Dr. Shena Jeffers, DO Status:AD M IN Location: [place] [address]1 Subjective Subjective Feeling somewhat generally weak and unwell today but still better than on presentation. King was removed Objective Data Objective Data Vital Signs: Vital Signs Temp Pulse Resp BP Pulse Ox O2 Del Method O2 Flow Rate 97.9 F 114 H 18 152/51 H 93 Nasal Cannula 2 11/24/22 02:45 11/24/22 02:45 11/24/22 02:45 11/24/22 02:45 11/24/22 06:57 11/24/22 06:57 11/24/22 06:57 Oxygen Flow Rate (L/min) 2 Oxygen Delivery Method Nasal Cannula Weight: 66.7 kg Body Mass Index (BMI) 25.2 Intake & Output: Intake and Output for Last 24 Hours 11/22/22 11/23/22 11/24/22 23:59 23:59 23:59 Intake Total 2545 / 2745 2755 / 2755 200 / 200 Output Total 1750 / 1750 350 / 350 Balance 2545 / 2245 1005 / 1005 -150 / -150 Lab / Micro Data Result Diagrams: 11/24/22 05:27 11/24/22 05:27 Labs: Laboratory Results - last 24 hr 11/23/22 05:34: Sodium 140, Potassium 4.0, Chloride 106, Carbon Dioxide 28.0, Anion Gap 6, BUN 17, Creatinine 0.79, Estim Creat Clear Calc 39.39, Est GFR (MDRD) Af Amer 90, Est GFR (MDRD) Non-Af 75, BUN/Creatinine Ratio 21.5 H, Glucose 233 H, Calcium 8.7, Total Bilirubin 0.30, AST 42 H, ALT 27, Alkaline Phosphatase 129 H, Total Protein 6.2 L, Albumin 2.3 L, Globulin 3.9, Albumin/Globulin Ratio 0.6 L 11/23/22 05:34: Hemoglobin A1c 7.9 H 11/23/22 07:27: POC Glucose 236 H 11/23/22 10:39: POC Glucose 120 H 11/23/22 15:45: POC Glucose 407 H 11/23/22 21:08: POC Glucose > 500 H* 11/23/22 21:22: Glucose 550 H* 11/24/22 05:27: WBC 10.6, RBC 3.59 L, Hgb 9.9 L, Hct 31.0 L, MCV 86.4, MCH 27.6,MCHC 31.9 L, RDW Std Deviation 49.1 H, RDW Coeff of Kristyn 15.5 H, Plt Count 276, MPV 11.4, Immature Gran % (Auto) 0.500, Neut % (Auto) 77.4 H, Lymph % (Auto) 9.5L, [place] % (Auto) 11.8 H, Eos % (Auto) 0.1, Baso % (Auto) 0.7, Absolute Neuts (auto) 8.2 H, Absolute Lymphs (auto) 1.01, Nucleated RBC % 0 11/24/22 05:27: Sodium 138, Potassium 4.9, Chloride 106, Carbon Dioxide 22.0, Anion Gap 10, BUN 26 H, Creatinine 0.98, Estim Creat Clear Calc 40.20, Est GFR (MDRD) Af Amer 70, Est GFR (MDRD) Non-Af 58 L, BUN/Creatinine Ratio 26.5 H, Glucose 428 H, Calcium 8.9 Micro: Microbiology 11/22/22 15:15 Urine Catheter - King Urine Culture - Preliminary 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 11/22/22 14:50 Blood Culture (Wb) - Anticubital Right Blood Culture - Preliminary 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 11/22/22 15:06 Nasal Secretion SARS-CoV-2 & FLU Antigen (Rapid) - Final Rhythm Strip Rhythm Strip: Sinus Tach Rate: 120 Ectopy: None Physical Exam Narrative General: Alert, oriented, no apparent distress HEENT: Atraumatic, normocephalic Eyes: Anicteric, normal conjunctiva, extraocular movements grossly intact Neck: Supple Respiratory: Clear to auscultation bilaterally, normal respiratory effort Cardiovascular: Regular rate and rhythm GI: Soft, nontender, nondistended Extremities: No edema Musculoskeletal: Moving all extremities Neuro: No overt focal neurological deficits Skin: No rashes appreciated Psych: Cooperative Assessment & Plan Assessment/Plan (1) Sepsis: (2) Acute metabolic encephalopathy: (3) Acute UTI: (4) Pneumonia: PLAN: Plan 77-year-old with history of COPD, diabetes, hypothyroidism, bilateral PEs, hypertension who presented 11/22/2022 with confusion for 1 day. In the ED history obtained from the . In the ED she was noted to be tachycardic and confused and was given IV fluids as her lactic was 3.5. Was noted to have infiltrate on chest x-ray as well as UA concerning for UTI and she was given Rocephin and azithromycin. 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 Was mildly tachycardic overnight but no hypotension continue Rocephin #Type 1 diabetes mellitus Continue glargine, sliding scale insulin was added 2/: Added back her daytime insulin and added Premeal due to significantly elevated glucose. No gap on BMP this morning #Acute metabolic encephalopathy Secondary to sepsis and underlying infection on top of her underlying dementia Treat underlying cause Significantly improved #History of bilateral pulmonary embolism Xarelto #Hypothyroidism Levothyroxine #Hypertension Continue amlodipine and lisinopril #COPD Does not appear to be on any underlying medications next and albuterol as needed #DVT ppx: On Xarelto Lizz Maravilla MD Time spent in the patient's overall evaluation,decision-making process, review of diagnostic data, adjustment of management, discussion with other providers, nursing nursing and ancillary staff involved in patient's care documentation, 30minutes Charges/Coding Visit Charges Inpatient E&M: 24046 Subs Hosp L2 11/24/22 0942 <Electronically signed by Lizz Maravilla MD> Cosigner Signature (if applicable): CC: ~ Signed ADDENDUM by Dr. Lizz aMravilla MD on 11/24/22 at 1608 Addendum Means mildly tachycardic and mildly tachypneic, does have history of PE and DVT but reports she has been taking her Xarelto. Has not worsened throughout the day but is not improving significantly either. Remains on the antibiotics. Given the tachycardia and tachypnea will check CT of the chest to evaluate for any underlying pathology and additionally will get an echo. She remains on telemetry and EKG earlier today was sinus tach 11/24/22 1608<Electronically signed by Lizz Maravilla MD> Cosigner Signature (if applicable): cc: ~* Signed [facility] Work Phone: 1([phone]) 580-860501-31-[address] Maravilla [facility] November 23, 2022 2:00pm Note Date/Time November 23, 2022 7 :52am [facility] Medical Records Department [address] [place] [address] Progress Note - Hospitalist 11/23/22 0745 MR#: [id number] Acct: [id number] Name: LIVIER SMALLS Rep #:[id number] : 1945 77 From: Lizz Maravilla MD PCP: Dr. Shena Jeffers, DO Status:AD M IN Location: [place] [address] Subjective Subjective Follow-up sepsis. Feeling significantly better, confusion has resolved Objective Data Objective Data Vital Signs: Vital Signs Temp Pulse Resp BP Pulse Ox O2 Del Method O2 Flow Rate 98.4 F 127 H 18 161/75 H 95 Nasal Cannula 2 11/23/22 05:26 11/23/22 06:32 11/23/22 05:26 11/23/22 05:26 11/23/22 05:26 11/23/22 05:26 11/23/22 05:26 Oxygen Flow Rate (L/min) 2 Oxygen Delivery Method Nasal Cannula Weight: 66.7 kg Body Mass Index (BMI) 25.2 Intake & Output: Intake and Output for Last 24 Hours 11/21/22 11/22/22 11/23/22 23:59 23:59 23:59 Intake Total 2545 / 2745 1200 / 1200 Output Total 1200 / 1200 Balance 2545 / 2245 0 / 0 Lab / Micro Data Result Diagrams: 11/23/22 05:34 11/23/22 05:34 Labs: Laboratory Results - last 24 hr 11/22/22 14:50: WBC 14.8 H, RBC 4.39, Hgb 11.9 L, Hct 37.4, MCV 85.2, MCH 27.1, MCHC 31.8 L, RDW Std Deviation 48.1 H, RDW Coeff of Kristyn 15.3 H, Plt Count 328, MPV 10.8, Immature Gran % (Auto) 0.400, Neut % (Auto) 85.9 H, Lymph % (Auto) 6.9L, [place] % (Auto) 6.3, Eos % (Auto) 0.0, Baso % (Auto) 0.5, Absolute Neuts (auto)12.7 H, Absolute Lymphs (auto) 1.02, Nucleated RBC % 0 11/22/22 14:50: PT 16.0 H, INR 1.3, APTT 36.3 H 11/22/22 14:50: Sodium 138, Potassium 4.2, Chloride 103, Carbon Dioxide 24.0, Anion Gap 11, BUN 23 H, Creatinine 1.19 H, Estim Creat Clear Calc 33.10, Est GFR(MDRD) Af Amer 56 L, Est GFR (MDRD) Non-Af 47 L, BUN/Creatinine Ratio 19.3, Glucose 265 H, Calcium 9.3, Total Bilirubin 0.40, AST 13 L, ALT 15, Alkaline Phosphatase 138 H, Troponin I High Sens 20, Total Protein 7.1, Albumin 2.6 L, Globulin 4.5 H, Albumin/Globulin Ratio 0.6 L 11/22/22 14:50: Lactic Acid 3.5 H* 11/22/22 15:15: Urine Color Yellow, Urine Clarity Clear, Urine pH 6.0, Ur Specific Lee 1.020, Urine Protein 30 H, Urine Glucose (UA) 1000 H, Urine Ketones 15 H, Urine Occult Blood 50 H, Urine Nitrite Positive H, Urine BilirubinNegative, Urine Urobilinogen Normal, Ur Leukocyte Esterase 500 H, Urine RBC 0 SEEN, Urine WBC 25-50 SEEN, Ur Squamous Epith Cells 0 SEEN, Urine Bacteria 2+, Urine Mucus 0 SEEN 11/22/22 19:24: Lactic Acid 0.7 11/22/22 20:32: POC Glucose 311 H 11/23/22 05:34: WBC 12.1 H, RBC 3.85 L, Hgb 10.6 L, Hct 33.0 L, MCV 85.7, MCH 27.5, MCHC 32.1, RDW Std Deviation 48.6 H, RDW Coeff of Kristyn 15.5 H, Plt Count 276, MPV 11.2, Immature Gran % (Auto) 0.400, Neut % (Auto) 81.1 H, Lymph % (Auto) 7.8 L, [place] % (Auto) 9.9, Eos % (Auto) 0.1, Baso % (Auto) 0.7, Absolute Neuts (auto) 9.9 H, Absolute Lymphs (auto) 0.95, Nucleated RBC % 0 11/23/22 05:34: Sodium 140, Potassium 4.0, Chloride 106, Carbon Dioxide 28.0, Anion Gap 6, BUN 17, Creatinine 0.79, Estim Creat Clear Calc 39.39, Est GFR (MDRD) Af Amer 90, Est GFR (MDRD) Non-Af 75, BUN/Creatinine Ratio 21.5 H, Glucose 233 H, Calcium 8.7, Total Bilirubin 0.30, AST 42 H, ALT 27, Alkaline Phosphatase 129 H, Total Protein 6.2 L, Albumin 2.3 L, Globulin 3.9, Albumin/Globulin Ratio 0.6 L Micro: Microbiology 11/22/22 14:50 Blood Culture (Wb) - Anticubital Right Blood Culture - Preliminary 11/22/22 15:06 Nasal Secretion SARS-CoV-2 & FLU Antigen (Rapid) - Final Radiography Diagnostic Testing: Radiology Impression Chest X-Ray 11/22/22 15:35 IMPRESSION: Increased markings at the lung bases suggestive of scarring with superimposed atelectasis and/or early infiltrates worse on the right side. Electronically Signed: Ayden Sifuentes MD at 15:48 EST , Rhythm Strip Rhythm Strip: Sinus Tach Rate: 120 Ectopy: None Physical Exam Narrative General: Alert, oriented, no apparent distress HEENT: Atraumatic, normocephalic Eyes: Anicteric, normal conjunctiva, extraocular movements grossly intact Neck: Supple Respiratory: Clear to auscultation bilaterally, normal respiratory effort Cardiovascular: Regular rate and rhythm GI: Soft, nontender, nondistended Extremities: No edema Musculoskeletal: Moving all extremities Neuro: No overt focal neurological deficits Skin: No rashes appreciated Psych: Cooperative Assessment & Plan Assessment/Plan (1) Sepsis: (2) Acute metabolic encephalopathy: (3) Acute UTI: (4) Pneumonia: PLAN: Plan 77-year-old with history of COPD, diabetes, hypothyroidism, bilateral PEs, hypertension who presented 11/22/2022 with confusion for 1 day. In the ED history obtained from the . In the ED she was noted to be tachycardic and confused and was given IV fluids as her lactic was 3.5. Was noted to have infiltrate on chest x-ray as well as UA concerning for UTI and she was given Rocephin and azithromycin. 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 Received fluids per protocol Significantly improved There was a query if she may have pneumonia but symptoms and x-ray not is convincing, will follow urinary antigens Will likely discontinue azithromycin if urinary antigens are negative #Acute metabolic encephalopathy Secondary to sepsis and underlying infection on top of her underlying dementia Treat underlying cause Significantly improved #History of bilateral pulmonary embolism Xarelto #Hypothyroidism Levothyroxine #Hypertension Continue amlodipine and lisinopril #COPD Does not appear to be on any underlying medications next and albuterol as needed #Type 1 diabetes mellitus Continue glargine, sliding scale insulin was added #DVT ppx: On Brauliorelto Lizz Maravilla MD Time spent in the patient's overall evaluation,decision-making process, review of diagnostic data, adjustment of management, discussion with other providers, nursing nursing and ancillary staff involved in patient's care documentation, 30minutes Charges/Coding Visit Charges Inpatient E&M: 68992 Subs Hosp L2 11/23/22 1400 <Electronically signed by Lizz Maravilla MD> Cosigner Signature (if applicable): CC: ~ Signed [facility] Work Phone: 1(155) 856-944301-30-2023 History and physical note Author Dr. Paulson [facility] November 22, 2022 4:22pm Note Date/Time November 22, 2022 4 :22pm [facility] Medical Records Department [address] [place] [address] H&P Exam - Hospitalist 11/22/22 1616 MR#: [id number] Acct: [id number] Name: LIVIER SMALLS Rep #:[id number] : 1945 77 From: Dallas Paulson DO PCP: Dr. Shena Jeffers DO Status:RE ER Location: ED HPI - General General Date of Service: 11/22/22 Chief Complaint: confusion HPI Narrative LIVIER SMALLS, is a 77 F who presents with confusion. History is obtained through the emergency room physician who spoke with the patient's . is not present on my evaluation and the patient is too confused to provide any history. But the patient apparently was doing well yesterday, they went to a restaurant with no difficulties and [place] Today, patient noted to be confused and incontinent. Sent to the emergency room and was noted to be tachycardic, confused. Patient did receive IV fluids as patient's lactic acid was 3.5. Patient had a urinalysis as concerning for UTI as well as infiltrate on chest x-ray so patient did receive ceftriaxone and azithromycin. 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 Memory loss On home oxygen therapy Osteoporosis Pulmonary embolism, bilateral Smoker Home Medications amlodipine 5 mg-benazepril 10 mg capsule (Lotrel) 1 cap PO DAILY blood pressure 09/08/21 [History Last Taken 09/07/22] rivaroxaban 20 mg tablet (Xarelto) 20 mg PO DAILY blood thinner 04/23/22 [History Last Taken 09/08/22] oxybutynin chloride 10 mg tablet,extended release 24 hr 10 mg PO DAILY bladder 09/08/22 [History Last Taken 09/07/22] simvastatin 10 mg tablet 10 mg PO DAILY cholesterol 09/08/22 [History Last Taken 09/07/22] insulin aspart U-100 100 unit/mL subcutaneous solution (Novolog U-100 Insulin aspart) 20 unit (0.2 mL) subcut TID #20 mL 10/06/22 [Rx Last Taken Unknown] insulin glargine 100 unit/mL subcutaneous solution (Lantus U-100 Insulin) 10 unit (0.1 mL) subcut QPM #10 mL 10/06/22 [Rx Last Taken Unknown] levothyroxine 150 mcg tablet 150 mcg PO DAILY thyroid #30 tabs 11/11/22 [Rx Last Taken Unknown] zoledronic acid 5 mg/100 mL in mannitol 5 %-water intravenous piggybck 1 ea .Route ONCE #100 mL 11/18/22 [Rx Last Taken Unknown] Allergy/AdvReac Type Severity Reaction Status Date / Time ciprofloxacin [From Cipro] Allergy Intermediate hives Verified 11/22/22 14:44 Sulfa (Sulfonamide Allergy Intermediate hives Verified 11/22/22 14:44 Antibiotics) Family History Father Diabetes Respiratory disease Surgical History S/P insertion of insulin pump Social History household members: significant other and none number of children: 2 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 Smoking Status: Former smoker alcohol intake: current alcohol intake frequency: a few times a month substance use type: does not use ROS Review of Systems ROS Unobtainable: due to encephalopathy Vital Signs Vital Signs Vital Signs: 11/22/22 14:39 11/22/22 15:21 11/22/22 16:08 Temperature 38.2 C H 39.2 C H Temperature Source Temporal Core Pulse Rate 122 H 114 H Respiratory Rate 24 H 30 H Blood Pressure 142/115 H 142/60 H Blood Pressure Mean 124 87 Pulse Ox 93 91 96 Oxygen Delivery Method Room Air Nasal Cannula Nasal Cannula Oxygen Flow Rate (L/min) 2 2 Weight Weight: 68.2 kg Body Mass Index (BMI) 25.8 Physical Exam Const alert and no apparent distress Constitutional Narrative: Confused HEENT normocephalic and head/scalp atraumatic HEENT Narrative: Mucous membranes dry Eyes Eyes Narrative: No icterus Neck no lymphadenopathy Neck Narrative: No thyromegaly Resp normal respiratory effort and no retractions Cardio Cardio Narrative: Tachycardic but regular GI normal to inspection, nondistended, normoactive bowel sounds, soft to palpation,non-tender and non-distended Extremity normal to inspection and full ROM Neuro moves all extremities and no focal motor deficits Results Lab / Micro Data Result Diagrams: 11/22/22 14:50 11/22/22 14:50 Labs: Laboratory Results - last 24 hr 11/22/22 14:50: WBC 14.8 H, RBC 4.39, Hgb 11.9 L, Hct 37.4, MCV 85.2, MCH 27.1, MCHC 31.8 L, RDW Std Deviation 48.1 H, RDW Coeff of Kristyn 15.3 H, Plt Count 328, MPV 10.8, Immature Gran % (Auto) 0.400, Neut % (Auto) 85.9 H, Lymph % (Auto) 6.9L, [place] % (Auto) 6.3, Eos % (Auto) 0.0, Baso % (Auto) 0.5, Absolute Neuts (auto)12.7 H, Absolute Lymphs (auto) 1.02, Nucleated RBC % 0 11/22/22 14:50: PT 16.0 H, INR 1.3, APTT 36.3 H 11/22/22 14:50: Sodium 138, Potassium 4.2, Chloride 103, Carbon Dioxide 24.0, Anion Gap 11, BUN 23 H, Creatinine 1.19 H, Estim Creat Clear Calc 33.10, Est GFR(MDRD) Af Amer 56 L, Est GFR (MDRD) Non-Af 47 L, BUN/Creatinine Ratio 19.3, Glucose 265 H, Calcium 9.3, Total Bilirubin 0.40, AST 13 L, ALT 15, Alkaline Phosphatase 138 H, Troponin I High Sens 20, Total Protein 7.1, Albumin 2.6 L, Globulin 4.5 H, Albumin/Globulin Ratio 0.6 L 11/22/22 14:50: Lactic Acid 3.5 H* 11/22/22 15:15: Urine Color Yellow, Urine Clarity Clear, Urine pH 6.0, Ur Specific Lee 1.020, Urine Protein 30 H, Urine Glucose (UA) 1000 H, Urine Ketones 15 H, Urine Occult Blood 50 H, Urine Nitrite Positive H, Urine BilirubinNegative, Urine Urobilinogen Normal, Ur Leukocyte Esterase 500 H, Urine RBC 0 SEEN, Urine WBC 25-50 SEEN, Ur Squamous Epith Cells 0 SEEN, Urine Bacteria 2+, Urine Mucus 0 SEEN Micro: Microbiology 11/22/22 15:06 Nasal Secretion SARS-CoV-2 & FLU Antigen (Rapid) - Final Rhythm Strip Rhythm Strip: Sinus Tach Rate: 120 Ectopy: None Radiology Impression Chest X-Ray 11/22/22 15:35 IMPRESSION: Increased markings at the lung bases suggestive of scarring with superimposed atelectasis and/or early infiltrates worse on the right side. Electronically Signed: Ayden Sifuentes MD at 15:48 EST , Assessment & Plan Assessment/Plan (1) Sepsis: PLAN: qSOFA score of 2 with tachypnea and change in mental status Suspected urinary or pulmonary source. Continue with antibiotics with ceftriaxone and azithromycin Follow-up cultures and adjust antibiotics accordingly COVID-19 and influenza were negative Patient did receive IV fluids emergency room and we will administer another liter of IV fluids. (2) Acute metabolic encephalopathy: PLAN: Secondary to sepsis and underlying infection and dementia Avoid potentiating medications (3) Acute UTI: PLAN: Continue with antibiotics Follow-up culture (4) Pneumonia: PLAN: Continue with antibiotics as above Check urinary engines for Streptococcus Legionella PLAN: Plan Chronic conditions * Diabetes mellitus type 1: Continue with glargine as well as prandial insulin. We will also add sliding scale insulin * Osteoporosis: Hold her zoledronic acid for now * Hypothyroidism: Continue with levothyroxine * COPD: Appears compensated this time. * History VTE: Continue with apixaban PT prophylaxis: Not indicated as patient is already anticoagulated. Charges/Coding Visit Charges Inpatient E&M: 79212 Init Hosp L3 11/22/22 1628 <Electronically signed by Dallas Jopperi DO> Cosigner Signature (if applicable): CC: Dr. Dallas Paulson, DO; Dr. Shena Jeffers DO~ Signed [facility] Work Phone: [phone] 486-665201-30-[address] Johnston [facility] November 22, 2022 4:09pm Note Date/Time November 22, 2022 3 :02pm [facility] Medical Records Department [address] [place] [address] Emergency Department Summary 11/22/22 MR#: [id number] Acct: [id number] Name: LIVIER SMALLS Rep #:[id number] : 1945 77 From: Osiel Johnston MD PCP: Dr. Shena Jeffers DO Status:RE G ER Location: ED HPI History of Present Illness Chief Complaint: General Illness Informant: patient and spouse/S.O. Onset/Context/Timing Onset: Yesterday Context: Gradual Onset Timing: Continuous Quality: confused, febrile, malaised Location: generally Current Severity: Severe Maximum Severity: Severe Worsened by: nothing Relieved by: nothing Narrative Narrative: Patient started getting generally weak and confused yesterday, much worse today with inability to stand or walk as a result. Running a fever up to 103 according to the who provides most of the history. Patient is confused,we attempt to get some history from her, but it is very limited because she is confused. She tells nursing initially that she has no pain, then she tells me that her chest is hurting and that it is a 9, but then she reverts back and states that she does not have any chest pain and has no pain anywhere or headache. states she has COPD, she was on oxygen but was doing well with the last couple weeks and decided to go off of her oxygen as they were watching her pulse oximetry and it was in the 92-94 range. This includes yesterday before she was feeling poorly where she walked up a hill without any dyspnea or issues. has not noticed any coughing or shortness of breath recently. She is chronically incontinent of urine. She has had no falls or injuries today. She is not vaccinated against COVID or influenza. She is a type I diabetic and he has been checking her blood sugars and they have been in the 200s. She has also had a couple of minor episodes of emesis. 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 Memory loss On home oxygen therapy Osteoporosis Pulmonary embolism, bilateral Smoker Home Medications amlodipine 5 mg-benazepril 10 mg capsule (Lotrel) 1 cap PO DAILY blood pressure 09/08/21 [History Last Taken 09/07/22] rivaroxaban 20 mg tablet (Xarelto) 20 mg PO DAILY blood thinner 04/23/22 [History Last Taken 09/08/22] oxybutynin chloride 10 mg tablet,extended release 24 hr 10 mg PO DAILY bladder 09/08/22 [History Last Taken 09/07/22] simvastatin 10 mg tablet 10 mg PO DAILY cholesterol 09/08/22 [History Last Taken 09/07/22] insulin aspart U-100 100 unit/mL subcutaneous solution (Novolog U-100 Insulin aspart) 20 unit (0.2 mL) subcut TID #20 mL 10/06/22 [Rx Last Taken Unknown] insulin glargine 100 unit/mL subcutaneous solution (Lantus U-100 Insulin) 10 unit (0.1 mL) subcut QPM #10 mL 10/06/22 [Rx Last Taken Unknown] levothyroxine 150 mcg tablet 150 mcg PO DAILY thyroid #30 tabs 11/11/22 [Rx Last Taken Unknown] zoledronic acid 5 mg/100 mL in mannitol 5 %-water intravenous piggybck 1 ea .Route ONCE #100 mL 11/18/22 [Rx Last Taken Unknown] Allergy/AdvReac Type Severity Reaction Status Date / Time ciprofloxacin [From Cipro] Allergy Intermediate hives Verified 11/22/22 14:44 Sulfa (Sulfonamide Allergy Intermediate hives Verified 11/22/22 14:44 Antibiotics) Family History Father Diabetes Respiratory disease Surgical History S/P insertion of insulin pump Social History household members: significant other and none number of children: 2 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 Smoking Status: Former smoker alcohol intake: current alcohol intake frequency: a few times a month substance use type: does not use ROS ROS ED Review of Systems ROS Unobtainable: due to mental status Constitutional Constitutional ED: Reports fatigue, fever(s), malaise and weakness Gastrointestinal Gastrointestinal: Reports nausea and vomiting Genitourinary Genitourinary ED: Reports urinary incontinence Neurologic Neurologic: Reports confusion; Denies headache(s) EXAM Physical Exam Const Vital Signs: 11/22/22 14:39 11/22/22 15:21 Temperature 100.8 F H Temperature Source Temporal Pulse Rate 122 H Respiratory Rate 24 H Blood Pressure 142/115 H Blood Pressure Mean 124 Pulse Ox 93 91 Oxygen Delivery Method Room Air Nasal Cannula Oxygen Flow Rate (L/min) 2 Positive well nourished and well developed Constitutional Narrative: lethargic General Appearance ED: well developed HEENT Reports moist mucous membranes normocephalic and atraumatic Eyes PERRL and EOMs intact bilaterally Neck full ROM, no lymphadenopathy and supple Neck Narrative: No meningismus. Chest Wall inspection of chest normal and palpation of chest normal Resp normal respiratory effort Resp Narrative: Rales right base, otherwise diminished/clear, trachea midline, no respiratory distress. Cardio regular rate, regular rhythm and no murmurs Rate: tachycardic GI non-tender and non-distended Auscultation: normoactive bowel sounds Palpation: soft Back/Spine no CVA tenderness General Back: other FROM Extremity normal to inspection General Extremety ED: Negative for edema, pulses abnormal or tenderness General Extremity: Negative for edema or pulses abnormal Neuro CN's II-XII intact bilaterally and no sensory deficits noted Neuro Narrative: Lethargic, eyes open, confused. Is able to answer questions. Oriented to person, her , place, but not time/month/year. Moving all 4 extremities equally, weak. Srini Coma Scale: document GCS findings Spontaneous Obeys Commands Confused 14 Sensorium / Orientation: awake and alert Motor Exam: general weakness Skin no rashes or lesions noted and no wounds Sepsis Attestation Sepsis Alert: Yes Sepsis Attestation: Agree w/Sepsis Date exam was performed: 11/22/22 Time exam was performed: 14:50 Possible Source of Sepsis: Pulmonary, Genitourinary and Unknown Sepsis Organ Dysfunction Criteria Present: Lactic Acid > 2 mmol/L and New/Unexplained change in mental status Supportive Findings: qSOFA (Quick SOFA) Score for Sepsis from [employer] on 11/22/2022 All calculations should be rechecked by clinician prior to use RESULT SUMMARY: 2 points qSOFA Score High Risk qSOFA Scores 2-3 are associated with a 3- to 14-fold increase in in-hospital mortality. Assess for evidence of organ dysfunction with blood testing includingserum lactate and calculation of the full SOFA Score. Patients meeting these qSOFA criteria should have infection considered even if it was previously not. INPUTS: Altered mental status ?> 1 = Yes Respiratory rate &ge;22 ?> 1 = Yes Systolic BP &le;100 ?> 0 = No Fluid Resuscitation Fluid resuscitation indicated?: Yes Fluid Resuscitation ordered: 30 ml/kg fluid bolus ordered Sepsis Note Date exam was performed: 11/22/22 Time exam was performed: 16:00 Sepsis Attestation: Sepsis re-evaluation was performed MDM MDM MDM Narrative Medical decision making narrative: Patient was recently seen by her tapper helper as an outpatient, 11/18 which was 4 days ago. I reviewed that note. Other than having some memory issues andbeing unreliable with regards to taking her osteoporosis pill, the encounter seemed relatively unremarkable. Concern today is that she has an acute infection causing her fever and delirium. Septic work-up obtained, she was given IV fluids, Zofran, and Tylenol. Nursingfelt like the patient was unable to swallow pills or liquid safely, so we canceled the oral Tylenol and replaced it with a suppository. 1 view chest x-ray my interpretation shows some chronic abnormalities in the bases that may represent early pneumonia in right base. Radiology in agreement. Her urine, however, appears to be lighting up several infectious indicators suggesting thatis the source. She was pancultured and started on Rocephin and Zithromax. Blood pressure remained stable. Her pulse oximetry was borderline at 90%, so weplaced 2 L on her, making her 91-93%. Discussed w/ hospitalist Dr. Paulson. Lab Data Attestation: I reviewed the patient's lab results. Labs: Laboratory Results - last 24 hr 11/22/22 11/22/22 11/22/22 14:50 14:50 14:50 WBC 14.8 H RBC 4.39 Hgb 11.9 L Hct 37.4 MCV 85.2 MCH 27.1 MCHC 31.8 L RDW Std Deviation 48.1 H RDW Coeff of Kristyn 15.3 H Plt Count 328 MPV 10.8 Immature Gran % (Auto) 0.400 Neut % (Auto) 85.9 H Lymph % (Auto) 6.9 L [place] % (Auto) 6.3 Eos % (Auto) 0.0 Baso % (Auto) 0.5 Absolute Neuts (auto) 12.7 H Absolute Lymphs (auto) 1.02 Nucleated RBC % 0 PT 16.0 H INR 1.3 APTT 36.3 H Sodium 138 Potassium 4.2 Chloride 103 Carbon Dioxide 24.0 Anion Gap 11 BUN 23 H Creatinine 1.19 H Estim Creat Clear Calc 33.10 Est GFR (MDRD) Af Amer 56 L Est GFR (MDRD) Non-Af 47 L BUN/Creatinine Ratio 19.3 Glucose 265 H Lactic Acid Calcium 9.3 Total Bilirubin 0.40 AST 13 L ALT 15 Alkaline Phosphatase 138 H Troponin I High Sens 20 Total Protein 7.1 Albumin 2.6 L Globulin 4.5 H Albumin/Globulin Ratio 0.6 L Urine Color Urine Clarity Urine pH Ur Specific Lee Urine Protein Urine Glucose (UA) Urine Ketones Urine Occult Blood Urine Nitrite Urine Bilirubin Urine Urobilinogen Ur Leukocyte Esterase Urine RBC Urine WBC Ur Squamous Epith Cells Urine Bacteria Urine Mucus 11/22/22 11/22/22 14:50 15:15 WBC RBC Hgb Hct MCV MCH MCHC RDW Std Deviation RDW Coeff of Kristyn Plt Count MPV Immature Gran % (Auto) Neut % (Auto) Lymph % (Auto) [place] % (Auto) Eos % (Auto) Baso % (Auto) Absolute Neuts (auto) Absolute Lymphs (auto) Nucleated RBC % PT INR APTT Sodium Potassium Chloride Carbon Dioxide Anion Gap BUN Creatinine Estim Creat Clear Calc Est GFR (MDRD) Af Amer Est GFR (MDRD) Non-Af BUN/Creatinine Ratio Glucose Lactic Acid 3.5 H* Calcium Total Bilirubin AST ALT Alkaline Phosphatase Troponin I High Sens Total Protein Albumin Globulin Albumin/Globulin Ratio Urine Color Yellow Urine Clarity Clear Urine pH 6.0 Ur Specific Lee 1.020 Urine Protein 30 H Urine Glucose (UA) 1000 H Urine Ketones 15 H Urine Occult Blood 50 H Urine Nitrite Positive H Urine Bilirubin Negative Urine Urobilinogen Normal Ur Leukocyte Esterase 500 H Urine RBC 0 SEEN Urine WBC 25-50 SEEN Ur Squamous Epith Cells 0 SEEN Urine Bacteria 2+ Urine Mucus 0 SEEN Radiography Diagnostic Testing: Clinical Impression(s) from Imaging Studies Chest X-Ray 11/22/22 15:35 IMPRESSION: Increased markings at the lung bases suggestive of scarring with superimposed atelectasis and/or early infiltrates worse on the right side. Electronically Signed: Ayden Sifuentes MD at 15:48 EST , Rhythm Strip Rhythm Strip: Sinus Tach Rate: 120 Ectopy: None EKG Initial EKG: Attestation: I personally reviewed and interpreted this EKG as follows: Interpretation: No Acute Injury Pattern and Sinus Tachycardia Prior EKG tracings: available for review Prior: Unchanged Discharge Plan Dx/Rx/DC Orders Clinical Impression: Acute UTI, Acute metabolic encephalopathy, Sepsis Disposition Disposition: Acute Care Hospital [facility] What to do if you have Problems For any increased pain, shortness of breath, bleeding, nausea or vomiting, chestpain, or any unexpected problems, contact your Primary Care Provider. Call [facility] ([phone]) or report to the closest Emergency Room. Call 911 if necessary. 11/22/22 1609 <Electronically signed by Osiel Johnston MD> Cosigner Signature (if applicable): CC: Dr. Shena Jeffers DO ~ Signed [facility] Work Phone: Discharge summary Author Dr. Maravilla [facility] November 26, 2022 3:24pm Note Date/Time November 26, 2022 3 :04pm [facility] Medical Records Department [address] [place] [address] Instructions for Home/Discharge Instructions 11/26/22 1500 MR#: [id number] Acct: [id number] Name: LIVIER SMALLS Rep #:[id number] : 1945 77 From: Lizz Maravilla MD PCP: Dr. Shena Jeffers DO Status:AD M IN Discharge Instructions Diet Discharge Diet: - (Calorie controlled and consistent carbohydrate) Activity Discharge Activity: Use Walker Follow Up Care Test Results: Test results from this visit will be discussed in further detail at your follow- up appointment, if applicable. Discharge Plan Admission Admit Date/Time: 11/22/22 16:10 Primary Reason for Your Visit: Confusion Attending Provider: Lizz Maravilla Primary Care Provider: Shena Jeffers Consulting Providers: Dallas Paulson Instructions Patient Instructions: Urinary Tract Infections in Women, ED Fall Prevention Additional Instructions / Restrictions: DISCHARGE INSTRUCTIONS PLEASE READ *Please take this with you to your next doctors appointment* ?You will resume taking your 5 units of long-acting insulin and your sliding scale insulin as prescribed by Dr. Ceja -You will continue to take your levothyroxine 150 mcg however after discussing with Dr. Ceja in looking at your thyroid levels you will take your [id number] mcg every day but Tuesday -During this admission you were noted to have an irregular heartbeat which may have been due to to your thyroid medication which is why you will now only take it 6 days a week. Because of this you have been started on a medication to control your heart rate, metoprolol tartrate 50 mg that you will take twice daily. Over time this may be able to be decreased or discontinued but please continue to take it unless instructed otherwise by your physician -For your infection you have been prescribed cefuroxime 500 mg that you will take twice daily for another 7 days, you will take your first dose tomorrow morning -Any newly prescribed medications have been sent to your preferred pharmacy on file -Please follow-up with your tapper helper, Dr. Ceja as previously scheduled. If you have any questions or concerns prior to your scheduled appointment pleasecall her office -Please call your primary care provider's office upon discharge to schedule a hospital follow up within 1 week. -For any concerning signs or symptoms please call 911 or proceed to the nearest emergency department Discharge Orders/Prescriptions Prescriptions: New metoprolol tartrate 50 mg Tablet 50 mg PO BID 30 Days Qty: 60 0RF cefuroxime axetil 500 mg tablet 500 mg PO Q12H 7 Days Qty: 14 0RF Continued amlodipine-benazepril 5-10 mg capsule 1 cap PO DAILY Xarelto 20 mg tablet 20 mg PO DAILY zoledronic pwuo-smmybbrl-xitqh 5 mg/100 mL piggyback 1 ea .Route ONCE Qty: 100 0RF Rx Instructions: infuse over 20 minutes oxybutynin chloride 10 mg tablet extended release 24hr 10 mg PO DAILY Label Comments: take 1 tablet by mouth once daily simvastatin 10 mg tablet 10 mg PO DAILY insulin lispro 100 unit/mL Insulin Pen SUBCUT ACHS Rx Instructions: 150-199 2 units 200-259 4 units 260-324 6 units 325-374 8 units 375-409 10 units 410-449 11 units insulin glargine 100 unit/mL Cartridge 5 unit SUBCUT DAILY levothyroxine 150 mcg tablet 150 mcg PO .6 days per week Qty: 30 5RF Referrals / Follow Up: Shena Jeffers DO [Primary Care Provider] - Within 1 Week Haresh Ceja MD [Med Staff - Courtesy Staff] - (Please fill with your tapper helper as previously scheduled or if you have any questions or concernsprior to your scheduled appointment please call her office) Disposition Disposition (needs filled in before D/C Order can be placed): Home Health Service 11/26/22 1524<Electronically signed by Lizz Maravilla MD>Lizz Maravilla MD CC: Dr. Dallas Paulson DO; Dr. Shena Jeffers DO ~ Signed [facility] Work Phone: Discharge summary Author Dr. Maravilla [facility] November 26, 2022 4:50pm Note Date/Time November 26, 2022 3 :25pm [facility] Medical Records Department [address] [place] [id number] Discharge Summary 11/26/22 1524 MR#: [id number] Acct: [id number] Name: LIVIER SMALLS Rep #:[id number] : 1945 77 From: Lizz Maravilla MD PCP: Dr. Shena Jeffers DO Status:AD M IN Location: [place] [id number] Providers Date of Admission: 11/22/22 Date of Discharge: 11/26/22 Primary Care Physician: Dr. Shena Jeffers DO Reason For Visit: SEPSIS, UTI, PNEUMONIA Diagnosis Discharge Diagnosis (1) Sepsis: Status: Acute Code(s): A41.9 - Sepsis, unspecified organism (2) Acute metabolic encephalopathy: Status: Acute Code(s): G93.41 - Metabolic encephalopathy (3) Acute UTI: Status: Acute Code(s): N39.0 - Urinary tract infection, site not specified (4) Pneumonia: Status: Acute Code(s): J18.9 - Pneumonia, unspecified organism Plan #Sepsis secondary to acute UTI #New onset A-fib with RVR #Hypothyroidism #Type 1 diabetes mellitus #Acute metabolic encephalopathy #History of bilateral pulmonary embolism #Hypertension #COPD Medications at Discharge Home Medications amlodipine 5 mg-benazepril 10 mg capsule 1 cap PO DAILY blood pressure 09/08/21 rivaroxaban 20 mg tablet (Xarelto) 20 mg PO DAILY blood thinner 04/23/22 oxybutynin chloride 10 mg tablet,extended release 24 hr 10 mg PO DAILY bladder 09/08/22 simvastatin 10 mg tablet 10 mg PO DAILY cholesterol 09/08/22 zoledronic acid 5 mg/100 mL in mannitol 5 %-water intravenous piggybck 1 ea .Route ONCE #100 mL 11/18/22 insulin glargine 100 unit/mL subcutaneous cartridge 5 unit subcut DAILY dm 11/22/22 insulin lispro 100 unit/mL subcutaneous pen unit subcut ACHS dm 11/22/22 cefuroxime axetil 500 mg tablet 500 mg PO Q12H 7 days #14 tabs 11/26/22 levothyroxine 150 mcg tablet 150 mcg PO .6 days per week thyroid #30 tabs 11/26/22 metoprolol tartrate 50 mg tablet 50 mg PO BID 30 days #60 tabs 11/26/22 Hospital Course Procedures - (CT, echocardiogram) Summary of Care Provided Minutes Spent on Discharge: 35 Hospital Course: 77-year-old with history of COPD on home O2, diabetes, hypothyroidism, bilateralPEs, hypertension who presented 11/22/2022 with confusion for 1 day. In the ED history obtained from the . In the ED she was noted to be tachycardic and confused and was given IV fluids as her lactic was 3.5. Was noted to have infiltrate on chest x-ray as well as UA concerning for UTI and she was given Rocephin and azithromycin. She responded well to fluids and antibiotics but hadbeen somewhat tachypneic and tachycardic, got echo and CT, CT did show some bilateral pleural effusions and echo was not overtly remarkable. She did go in A-fib with RVR and TSH was found to be 0.02 and she is on Synthroid 150 mcg daily and free T4 was on the upper end of normal. She started on a beta-gypsy, Synthroid dose decreased, and transferred to PCU and that improved, sheis already on Xarelto. She had echo which was unrevealing and given that thyroid was likely the cause of her A-fib in conjunction with illness do not feel that this needs further work-up at this time. Additionally given low suspicion for pneumonia based on clinical status, cultures, CT azithromycin was discontinued. Urine culture grew Klebsiella as did 1 of 2 blood cultures and sensitivities noted. She was feeling weak initial but did feel her strength is improving, worked with physical therapy. Discussed all options including snf and home with home health and her and partner expressed strong desire for her to return home with home health and his help. Given her A-fib and her TSH as well as her wildly variable glucoses I contacted her tapper helper and decision was made to take Synthroid 6 times weekly and skip Tuesday and to go back to her home regimen of 5 units of insulin glargine dailywith sliding scale insulin. On day of discharge she reports feeling much better, breathing at baseline, no further complaints. Discharge instructions asfollowed: You will resume taking your 5 units of long-acting insulin and your sliding scale insulin as prescribed by Dr. Ceja -You will continue to take your levothyroxine 150 mcg however after discussing with Dr. Ceja in looking at your thyroid levels?you will take your [id number] mcg every day but Tuesday -During this admission you were noted to have an irregular heartbeat which may have been due to to your thyroid medication which is why you will now only take it 6 days a week.? Because of this you have been started on a medication to control your heart rate,?metoprolol tartrate 50 mg that you will take twice daily.? Over time this may be able to be decreased or discontinued but please continue to take it unless instructed otherwise by your physician -For your infection you have been prescribed?cefuroxime 500 mg that you will take twice daily for another 7 days,?you will take your first dose tomorrow morning -Any newly prescribed medications have been sent to your preferred pharmacy on file -Please follow-up with your tapper helper, Dr. Ceja as previously scheduled.? If you have any questions or concerns prior to your scheduled appointment pleasecall her office -Please call your primary care provider's office upon discharge to schedule a hospital follow up within 1 week. -For any concerning signs or symptoms please call 911 or proceed to the nearest emergency department Physical Exam Narrative General: Alert, oriented, no apparent distress HEENT: Atraumatic, normocephalic Eyes: Anicteric, normal conjunctiva, extraocular movements grossly intact Neck: Supple Respiratory: Somewhat diminished at the bases, normal respiratory effort Cardiovascular: Regular rate and rhythm GI: Soft, nontender, nondistended Extremities: Left lower extremity with trace to 1+ edema compared to right Musculoskeletal: Moving all extremities Neuro: No overt focal neurological deficits Skin: No rashes appreciated Psych: Cooperative Weight / BMI Weight Weight: 66.7 kg Body Mass Index (BMI) 25.2 ABG / Lab / Microbiology Data Result Diagrams: 11/26/22 05:23 11/26/22 05:23 Laboratory: Laboratory Results - last 24 hr 11/25/22 16:13: POC Glucose 311 H 11/25/22 21:55: POC Glucose 277 H 11/26/22 05:23: WBC 7.0, RBC 3.53 L, Hgb 9.5 L, Hct 30.7 L, MCV 87.0, MCH 26.9 L, MCHC 30.9 L, RDW Std Deviation 48.0 H, RDW Coeff of Kristyn 15.1 H, Plt Count 336,MPV 11.4, Immature Gran % (Auto) 0.600, Neut % (Auto) 58.4, Lymph % (Auto) 23.2,[place] % (Auto) 10.2 H, Eos % (Auto) 6.7 H, Baso % (Auto) 0.9, Absolute Neuts (auto) 4.1, Absolute Lymphs (auto) 1.63, Nucleated RBC % 0, Differential CommentSCANNED, Atypical Lymphocytes 1+, Hypochromasia RARE 11/26/22 05:23: Sodium 139, Potassium 3.8, Chloride 106, Carbon Dioxide 27.0, Anion Gap 6, BUN 23 H, Creatinine 0.69, Estim Creat Clear Calc 39.39, Est GFR (MDRD) Af Amer 105, Est GFR (MDRD) Non-Af 87, BUN/Creatinine Ratio 33.3 H, Glucose 115 H, Calcium 8.9 11/26/22 08:03: POC Glucose 86 11/26/22 12:01: POC Glucose 63 L Microbiology: Microbiology 11/22/22 14:50 Blood Culture (Wb) - Anticubital Right Blood Culture - Final Klebsiella pneumoniae sp pneum 11/22/22 15:15 Urine Catheter - King Legionella Antigen - Final 11/22/22 15:15 Urine Catheter - King Streptococcus pneumoniae Antigen (M - Final 11/22/22 15:15 Urine Catheter - King Urine Culture - Final Klebsiella pneumoniae sp pneum 11/22/22 15:30 Blood Culture (Wb) - Left Hand Blood Culture - Preliminary No growth in 48 hours. 11/22/22 15:06 Nasal Secretion SARS-CoV-2 & FLU Antigen (Rapid) - Final D/C Instructions Discharge Diet: - (Calorie controlled and consistent carbohydrate) Meaningful Use Info Meaningful Use Diagnoses (Choose all that apply): None applicable Discharge Plan Admission Admit Date/Time: 11/22/22 16:10 Primary Reason for Your Visit: Confusion Attending Provider: Lizz Maravilla Primary Care Provider: Shena Jeffers Consulting Providers: Dallas Paulson Instructions Patient Instructions: Urinary Tract Infections in Women, ED Fall Prevention Additional Instructions / Restrictions: DISCHARGE INSTRUCTIONS PLEASE READ *Please take this with you to your next doctors appointment* ?You will resume taking your 5 units of long-acting insulin and your sliding scale insulin as prescribed by Dr. Ceja -You will continue to take your levothyroxine 150 mcg however after discussing with Dr. Ceja in looking at your thyroid levels you will take your [id number] mcg every day but Tuesday -During this admission you were noted to have an irregular heartbeat which may have been due to to your thyroid medication which is why you will now only take it 6 days a week. Because of this you have been started on a medication to control your heart rate, metoprolol tartrate 50 mg that you will take twice daily. Over time this may be able to be decreased or discontinued but please continue to take it unless instructed otherwise by your physician -For your infection you have been prescribed cefuroxime 500 mg that you will take twice daily for another 7 days, you will take your first dose tomorrow morning -Any newly prescribed medications have been sent to your preferred pharmacy on file -Please follow-up with your tapper helper, Dr. Ceja as previously scheduled. If you have any questions or concerns prior to your scheduled appointment pleasecall her office -Please call your primary care provider's office upon discharge to schedule a hospital follow up within 1 week. -For any concerning signs or symptoms please call 911 or proceed to the nearest emergency department Discharge Orders/Prescriptions Prescriptions: New metoprolol tartrate 50 mg Tablet 50 mg PO BID 30 Days Qty: 60 0RF cefuroxime axetil 500 mg tablet 500 mg PO Q12H 7 Days Qty: 14 0RF Continued amlodipine-benazepril 5-10 mg capsule 1 cap PO DAILY Xarelto 20 mg tablet 20 mg PO DAILY zoledronic [id number] 5 mg/100 mL piggyback 1 ea .Route ONCE Qty: 100 0RF Rx Instructions: infuse over 20 minutes oxybutynin chloride 10 mg tablet extended release 24hr 10 mg PO DAILY Label Comments: take 1 tablet by mouth once daily simvastatin 10 mg tablet 10 mg PO DAILY insulin lispro 100 unit/mL Insulin Pen SUBCUT ACHS Rx Instructions: 150-199 2 units 200-259 4 units 260-324 6 units 325-374 8 units 375-409 10 units 410-449 11 units insulin glargine 100 unit/mL Cartridge 5 unit SUBCUT DAILY levothyroxine 150 mcg tablet 150 mcg PO .6 days per week Qty: 30 5RF Referrals / Follow Up: Shena Jeffers DO [Primary Care Provider] - Within 1 Week (Please call the office on Tuesday to schedule your appt. ) Haresh Ceja MD [Med Staff - Courtesy Staff] - 03/02/23 10:15 am (Please fill withyour tapper helper as previously scheduled or if you have any questions or concerns prior to your scheduled appointment please call her office) Disposition Disposition (needs filled in before D/C Order can be placed): Home Health Service Charges/Coding Visit Charges Inpatient E&M: 34049 Disch Hosp >30min 11/26/22 1650 <Electronically signed by Lizz Maravilla MD> Cosigner Signature (if applicable): CC: Dr. Shena Jeffers DO; Dr. Lizz Maravilla MD~ Signed [facility] Work Phone: Discharge summary Author Shanita Lagos [facility] July 01, 2023 11:29am Note Date/Time July 01, 2023 11:29am [facility] Medical Records Department [address] [place] [address] Instructions for Home/Discharge Instructions 07/01/23 1128 MR#: [id number] Acct: [id number] Name: LIVIRE SMALLS Rep #:[id number] : 1945 77 From: Shanita Lagos MD PCP: Dr. Shena Jeffers, DO Status:AD M IN Discharge Instructions Diet Discharge Diet: Low fat / Low cholesterol Activity Discharge Activity: Return to Normal Activity Weight Bearing Status: Weight bearing as tolerated Dressing / Incision Call your doctor if you observe: Fever of 101 or Higher, Shortness of breath, Dizziness, Swelling in the ankles and Chest pain Follow Up Care Test Results: Test results from this visit will be discussed in further detail at your follow- up appointment, if applicable. Discharge Plan Admission Admit Date/Time: 06/29/23 21:53 Primary Reason for Your Visit: UTI Attending Provider: Shanita Lagos Primary Care Provider: Shena Jeffers Consulting Providers: Roxanne Saxena; Hosea Smith Instructions Patient Instructions: Urinary Tract Infections in Women Discharge Orders/Prescriptions Prescriptions: New cefdinir 300 mg capsule 300 mg PO BID Qty: 10 0RF Continued amlodipine-benazepril 5-10 mg capsule 1 cap PO DAILY Xarelto 20 mg tablet 20 mg PO DAILY oxybutynin chloride 10 mg tablet extended release 24hr 10 mg PO DAILY Patient Comments: take 1 tablet by mouth once daily simvastatin 10 mg tablet 10 mg PO DAILY magnesium 200 mg tablet 400 mg PO DAILY cholecalciferol (vitamin D3) [D3 DOTS] 50 mcg (2,000 unit) tablet 125 mcg PO DAILY insulin glargine [Lantus U-100 Insulin] 100 unit/mL solution 10 unit SUBCUT QHS Patient Comments: inject 10 units subcutaneously at bedtime (DISCARD 28 DAYS AFTER FIRST OPENING) insulin aspart U-100 [Novolog U-100 Insulin aspart] 100 unit/mL solution subcut Patient Comments: use as directed ACCORDING TO SLIDING SCALE - MAX OF 100 UNITS PER DAY HAS IT WRITTEN DOWN WILL NEED TO GET BOYFRIEND TO BRING IT IN levothyroxine 100 mcg tablet 100 mcg PO DAILY Qty: 30 5RF Discontinued nitrofurantoin monohyd/m-cryst 100 mg capsule 100 mg PO Q12H Referrals / Follow Up: Shena Jeffers DO [Primary Care Provider] - Within 1 Week Disposition Disposition (needs filled in before D/C Order can be placed): Home Health Service 07/01/23 1129<Electronically signed by Shanita Lagos MD>Shanita Lagos MD CC: Dr. Roxanne Saxena MD; Dr. Shena Jeffers DO; Dr. Hosea Smith MD ~ Signed [facility] Work Phone: Evaluation note* Diagnosis Onset Date Resolution Status COPD with acute exacerbation resolved Leukocytosis resolved THANIA (acute kidney injury) re solved DKA (diabetic ketoacidoses) resolved Encephalopathy acute resolve d THANIA (acute kidney injury) ac pilot station DKA (diabetic ketoacidoses) acute Encephalopathy acute acute [facility] Work Phone: Evaluation note* Diagnosis Onset Date Resolution Status THANIA (acute kidney injury) re solved DKA (diabetic ketoacidoses) resolved Encephalopathy acute resolve d THANIA (acute kidney injury) ac pilot station DKA (diabetic ketoacidoses) acute Encephalopathy acute acute THANIA (acute kidney injury) ac pilot station DKA (diabetic ketoacidoses) acute Encephalopathy acute acute Hyperglycemia due to diabetes mellitus acute [facility] Work Phone: Evaluation note* Diagnosis Onset Date Resolution Status THANIA (acute kidney injury) re solved DKA (diabetic ketoacidoses) resolved Encephalopathy acute resolve d THANIA (acute kidney injury) re solved DKA (diabetic ketoacidoses) resolved Encephalopathy acute resolve d THANIA (acute kidney injury) re solved Bacteriuria resolved DKA (diabetic ketoacidoses) resolved Encephalopathy acute resolve d Hyperglycemia due to diabetes mellitus resolved Tachycardia resolved [facility] Work Phone: Evaluation note* Diagnosis Onset Date Resolution Status THANIA (acute kidney injury) re solved DKA (diabetic ketoacidoses) resolved Encephalopathy acute resolve d THANIA (acute kidney injury) re solved Bacteriuria resolved DKA (diabetic ketoacidoses) resolved Encephalopathy acute resolve d Hyperglycemia due to diabetes mellitus resolved Tachycardia resolved Diabetes acute 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 acute Osteopenia acute [facility] Work Phone: Evaluation note* Diagnosis Onset Date Resolution Status THANIA (acute kidney injury) re solved Bacteriuria resolved DKA (diabetic ketoacidoses) resolved Encephalopathy acute resolve d Hyperglycemia due to diabetes mellitus resolved Tachycardia resolved Diabetes chronic 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 Osteopenia chronic Diabetes chronic 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 Osteopenia chronic Bilateral pneumonia acute Delirium due to another medical condition acute Hypoxemia acute Nausea and vomiting acute COPD exacerbation chronic [facility] Work Phone: Evaluation note* Diagnosis Onset Date Resolution Status Diabetes chronic 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 Osteopenia chronic Diabetes chronic 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 Osteopenia chronic Bilateral pneumonia acute Hypoxemia acute Delirium due to another medical condition resolved Nausea and vomiting resolved Diabetes chronic 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 Osteopenia chronic [facility] Work Phone: Evaluation note* Diagnosis Onset Date Resolution Status Diabetes chronic 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 Osteopenia chronic Bilateral pneumonia acute Hypoxemia acute Delirium due to another medical condition resolved Nausea and vomiting resolved Diabetes chronic 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 Osteopenia chronic Hyperglycemia acute [facility] Work Phone: Evaluation note* Diagnosis Onset Date Resolution Status 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 Hyperglycemia resolved 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 Diabetes mellitus type 1 acu te Osteoporosis acute 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 Acute metabolic encephalopathy acute Acute UTI acute Pneumonia acute Sepsis acute [facility] Work Phone: Evaluation note* Diagnosis Onset Date Resolution Status Diabetes mellitus type 1 chr onic 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 Osteoporosis chronic Acute metabolic encephalopathy resolved Sepsis resolved Diabetes mellitus type 1 chr onic 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 Osteoporosis [facility] Work Phone: Evaluation note* Diagnosis Onset Date Resolution Status Diabetes mellitus type 1 chr onic 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 Osteoporosis [facility] Work Phone: Evaluation note* Diagnosis Onset Date Resolution Status Diabetes mellitus type 1 chr onic 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 Osteoporosis chronic Diabetes mellitus type 1 chr onic 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 Osteoporosis chronic Acute UTI acute Creatinine elevation acute Dehydration acute Generalized weakness acute Inability to walk acute [facility] Work Phone: Evaluation note* Diagnosis Onset Date Resolution Status Diabetes mellitus type 1 chr onic 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 Osteoporosis chronic Acute UTI acute Creatinine elevation acute Dehydration acute Generalized weakness acute Inability to walk acute [facility] Work Phone: Evaluation note* Diagnosis Onset Date Resolution Status Diabetes mellitus type 1 chr onic 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 Osteoporosis chronic Acute UTI resolved Creatinine elevation resolve d Dehydration resolved [facility] Work Phone: Evaluation note* Diagnosis Onset Date Resolution Status Diabetes mellitus type 1 chr onic Hypertension chronic Hypothyroidism chronic Diabetes mellitus type 1 chr onic Hypertension chronic Hypothyroidism chronic Osteoporosis chronic Overweight chronic [facility] Work Phone: History and physical note Author Roxanne Saxena [facility] June 29, 2023 10:21pm Note Date/Time June 29, 2023 9:56pm [facility] Medical Records Department [address] [place] [id number] H&P Exam - Hospitalist 06/29/23 2151 MR#: [id number] Acct: [id number] Name: LIVIER SMALLS Rep #:[id number] : 1945 77 From: Roxanne Saxena MD PCP: Dr. Shena Jeffers, DO Status:AD IN [place] [facility] [id number] HPI - General General Date of Admission: 06/29/23 Date of Service: 06/29/23 Chief Complaint: Debility, weakness, recent outpatient UTI diagnosis, worsening. HPI Narrative The patient is a 77 y/o F w/ PMHx: Chronic COPD w/ chronic hypoxic respiratory failure (2L NC), HTN, HLD, Hypothyroidism with history of Pepe's thyroiditis, Hx BL PE on xarelto, Former Tobacco use, IDDM with insulin pump in place, PAF, CKD II versus III unclear subtype, Chronic memory impairment who presents to the [facility] ED on 06/29/23 with history of general malaise and fatigue, sleeping more over the last 3 to 4 days with decreased appetite and onset of subjective fevers as well as chills with rigors at dinner with private physicianevaluation on day of presentation with urinalysis at that time concerning for UTI started on Macrobid with only 1 dose administered but given her debility prompted eventual ED evaluation. Patient per her good friend had barely been able to even get up from the table and when she was in the restroom she could not even get off the toilet requiring wheelchair usage because of the severity of the weakness. She denies any marked discomfort, dysuria, hesitancy or urgencybut this is similar to her past with UTIs she notes. Work-up in the ED [id number], heart rate 115 initially with most recent repeat 100, BP initially 137/101 with most recent repeat 153/64, respiratory rate 19, initially 90% on room air eventually desaturating requiring transition to 2 L nasal cannula now 95%, CBC with WBC 11.2, hemoglobin 11.3, MCV 83.4, platelet 357 with left shift, CMP with sodium 133, BUN/creatinine 25/1.29, anion gap of note 8, glucose 312, lactic acid 1.1, hepatic profile not marked appearing, urinalysis with specific remedy 1.010, protein 30, glucose 1000, ketone 50, occult blood 25, positive nitrite, leukocyte Estrace 25 with urine WBCs 5-10 with no urine bacteria, urineculture pending per ED, blood culture x2 pending per ED, chest x-ray with improved appearance when compared to previous exam however still increased attenuation and reticulations at the lung bases suboptimally evaluated secondaryto overlying calcified breast implants with recommendation for lateral views as well. Patient previous urine cultures with most recently noted 11/22/2022 Klebsiella with near bryant sensitivity except resistance to ampicillin which at that time she also had reported on her blood culture as well. COVID PCR pending upon requested evaluation to be cautious. In the ED patient ministered 1 L normal saline, Tylenol 1000 mg p.o. x1, IV Rocephin 1 g x 1. 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 Memory loss On home oxygen therapy Osteoporosis Pulmonary embolism, bilateral Smoker Home Medications amlodipine 5 mg-benazepril 10 mg capsule 1 cap PO DAILY blood pressure 09/08/21 [History Last Taken 09/07/22] rivaroxaban 20 mg tablet (Xarelto) 20 mg PO DAILY blood thinner 04/23/22 [History Last Taken 09/08/22] oxybutynin chloride 10 mg tablet,extended release 24 hr 10 mg PO DAILY bladder 09/08/22 [History Last Taken 09/07/22] simvastatin 10 mg tablet 10 mg PO DAILY cholesterol 09/08/22 [History Last Taken 09/07/22] levothyroxine 100 mcg tablet 100 mcg PO DAILY #30 tabs 03/02/23 [Rx Last Taken Unknown] cholecalciferol (vitamin D3) 50 mcg (2,000 unit) tablet (D3 DOTS) 125 mcg PO DAILY 06/29/23 [History Last Taken Unknown] magnesium 200 mg tablet 400 mg PO DAILY 06/29/23 [History Last Taken Unknown] nitrofurantoin monohydrate/macrocrystals 100 mg capsule 100 mg PO Q12H 06/29/23 [History Last Taken Unknown] Allergy/AdvReac Type Severity Reaction Status Date / Time ciprofloxacin [From Cipro] Allergy Intermediate hives Verified 06/29/23 18:55 Sulfa (Sulfonamide Allergy Intermediate hives Verified 06/29/23 18:55 Antibiotics) Family History (Updated 06/29/23 @ 22:[address] Roxanne Saxena MD) Father Diabetes Respiratory disease Mother No problems noted. Surgical History (Updated 06/29/23 @ 22:[address] Roxanne Saxena MD) S/P appendectomy S/P cholecystectomy S/P hysterectomy S/P insertion of insulin pump Social History (Updated 06/29/23 @ 22:[address] 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 alcohol intake: current alcohol intake frequency: a few times a month substance use type: does not use ROS ROS Narrative Admission Review of Systems: CONSTITUTIONAL: No weight loss, + fever, chills, weakness or fatigue. HEENT: Eyes: No visual loss, blurred vision, double vision or yellow sclerae. Ears, Nose, Throat: No hearing loss, sneezing, congestion, runny nose or sore throat. SKIN: No rash or itching, lesions, wounds. CARDIOVASCULAR: No chest pain, chest pressure or chest discomfort, palpitations,edema, orthopnea, syncopal events. RESPIRATORY: No shortness of breath, cough or sputum, wheezing, hemoptysis. GASTROINTESTINAL: + anorexia. No nausea, vomiting or diarrhea, abdominal pain, melena, BRBPR. GENITOURINARY: Recent PCP Dx UTI but denies dysuria, frequency, urgency or retention. NEUROLOGICAL: + Severe diffuse weakness, increased lethargy. No headache, dizziness, syncope, paralysis, ataxia, numbness or tingling in the extremities, focal weakness, change in bowel or bladder control, seizure. MUSCULOSKELETAL: + muscle, back pain, joint pain or stiffness. HEMATOLOGIC: No anemia, bleeding or bruising. LYMPHATICS: No enlarged nodes. No history of splenectomy. PSYCHIATRIC: No history of depression or anxiety. ENDOCRINOLOGIC: No reports of sweating, cold or heat intolerance. No polyuria orpolydipsia. ALLERGIES: + history of hives. Vital Signs Vital Signs Vital Signs: 06/29/23 18:58 06/29/23 19:01 06/29/23 19:46 Temperature 99.3 F H Temperature Source Oral Pulse Rate 115 H 100 Respiratory Rate 19 H 19 H Respiratory Effort Normal Non-Labored Respiratory Pattern Normal Blood Pressure 137/101 H 153/64 H Blood Pressure Mean 113 93 Pulse Ox 90 95 Oxygen Delivery Method Room Air Nasal Cannula Oxygen Flow Rate (L/min) 2 Weight Weight: 146 lb 14.4 oz Body Mass Index (BMI) 25.2 Physical Exam Narrative Physical Examination: General: Awake, alert, oriented to place, year, month, improved with less lethargy than initial ED presentation per staff report, remains cooperative, seated upright in the ED bed, fatigued and ill-appearing. Skin: Normal color, normal turgor, no icterus, no cyanosis. HEENT: AT/NC, EOMI, PERRLA, dry MM, no carotid bruits or JVD noted. Lungs: Mildly diminished, greater bases, mildly increased respiratory rate but no distress, no rales, ronchi or wheezing. Heart: Mildly tachycardic with regular rhythm; no gallop, rub audible. Abdomen: Soft, NTTP, no suprapubic discomfort, ND, mildly hyperactive BS, no HSM. Extremities: No cyanosis, clubbing, or edema. Neurological: Patient awake, alert, oriented as noted, cognitive function improving, suspect nearing baseline intact; pupils equally reactive to light andaccommodation, cranial nerves grossly normal, moving all 4 extremities, no focaldeficits, strength severely globally decreased secondary to acute presentation. Psychiatric: Affect appears flat, fatigued, ill-appearing, no acute evidence of depressive or anxiety feelings. Results Lab / Micro Data 06/29/23 19:30 06/29/23 19:30 Labs: Laboratory Results - last 24 hr 06/29/23 19:30: WBC 11.2 H, RBC 4.40, Hgb 11.3 L, Hct 36.7 L, MCV 83.4, MCH 25.7L, MCHC 30.8 L, RDW Std Deviation 47.3 H, RDW Coeff of Kristyn 15.5 H, Plt Count 357, MPV 11.4, Immature Gran % (Auto) 0.400, Neut % (Auto) 79.6 H, Lymph % (Auto) 9.7 L, [place] % (Auto) 9.5, Eos % (Auto) 0.1, Baso % (Auto) 0.7, Absolute Neuts (auto) 8.9 H, Absolute Lymphs (auto) 1.08, Nucleated RBC % 0, Sodium 133 L, Potassium 4.2, Chloride 99, Carbon Dioxide 26.0, Anion Gap 8, BUN 25 H, Creatinine 1.29 H, Est GFR (MDRD) Af Amer 51 L, Est GFR (MDRD) Non-Af 42 L, BUN/Creatinine Ratio 19.4, Glucose 312 H, Lactic Acid 1.1, Calcium 8.9, Magnesium 2.4, Total Bilirubin 0.50, AST 10 L, ALT 16, Alkaline Phosphatase 107,Total Protein 7.6, Albumin 3.1 L, Globulin 4.5 H, Albumin/Globulin Ratio 0.7 L 06/29/23 20:25: Urine Color Yellow, Urine Clarity Clear, Urine pH 6.0, Ur Specific Lee 1.010, Urine Protein 30 H, Urine Glucose (UA) 1000 H, Urine Ketones 50 H, Urine Occult Blood 25 H, Urine Nitrite Positive H, Urine BilirubinNegative, Urine Urobilinogen Normal, Ur Leukocyte Esterase 25 H, Urine RBC 0-5 SEEN, Urine WBC 5-10 SEEN, Ur Squamous Epith Cells 0 SEEN, Urine Bacteria RARE, Urine Mucus 0 SEEN Radiology Impression Chest X-Ray 06/29/23 20:10 IMPRESSION: 1. There is overall improved appearance compared to prior comparison exam but still with increased attenuation and reticulations lung bases suboptimally evaluated due to overlying calcified breast implants. Consider lateral views for increased sensitivity and specificity. Electronically Signed: Bernardo Macy, at 20:32 EDT , Assessment & Plan Assessment/Plan (1) Acute UTI: PLAN: Plan The patient is a 77 y/o F w/ PMHx: Chronic COPD w/ chronic hypoxic respiratory failure (2L NC), HTN, HLD, Hypothyroidism with history of Pepe's thyroiditis, Hx BL PE on xarelto, Former Tobacco use, IDDM with insulin pump in place, PAF, CKD II versus III unclear subtype, Chronic memory impairment who presents to the [facility] ED on 06/29/23 with history of general malaise and fatigue, sleeping more over the last 3 to 4 days with decreased appetite and onset of subjective fevers as well as chills with rigors at dinner with private physicianevaluation on day of presentation with urinalysis at that time concerning for UTI started on Macrobid with only 1 dose administered but given her debility prompted eventual ED evaluation. #1. Acute Complicated Urinary Tract Infection: Will admit to [facility] ED, pending UCx, continue IVFs, monitor I/Os, continue IV Rocephin based on prior sensitivties as noted w/ transition as able pending sensitivities and speciation. Bld cx x 2 obtained in the ED. given severity of debility and weakness associated will have PT/OT/case management consultation for discharge planning. #2. IDDM type I with insulin pump with hyperglycemia: Patient with hyperglycemia upon presentation, likely related with acute infection, anion gap normal despite urine with noted 50 ketone, acetone level will be requested to becautious, will allow ADA diet if no nausea or emesis associate with acute presentation, will continue insulin pump and will allow Accu-Cheks off the device if at least the first 2-3 match with Accu-Cheks, will continue insulin sliding scale overlap per device protocol. Patient following of note with endocrinology outpatient. #3. CKD stage II suspected but labs have vacillated and certainly could be progressive to CKD stage III unclear subtype: Admission BUN/Cr 25/1.29, prior baseline creatinine noted to be primarily 0.6-0.9, most recently 03/02/2023 creatinine 1.14 at that time but has vacillated since 2021 although there have been admissions with acute cystitis and THANIA of note. #4. Chronic normocytic anemia: Admission hemoglobin 11.3, baseline more recently appears primarily 9-11 range, prior to this 11/26/2022 hemoglobin 9.5, continue to trend. #5. Hypertension: Continue home regimen including amlodipine, benazepril which will be continued given renal function is not significantly elevated but low threshold to hold if altered, PRN hydralazine. #6. Hyperlipidemia: We will continue patient on statin therapy. #7. Hypothyroidism: History of Pepe's thyroiditis, will continue patient home levothyroxine regimen. #8. History of bilateral pulmonary emboli: We will continue patient home Xarelto regimen. #9. PAF: Noted previous admission with PAF in the acute setting, not on any rate or rhythm agent, will continue patient home Xarelto regimen. #10. Chronic COPD w/ chronic hypoxic respiratory failure (2L NC): Per current list not on inhaler regimen but clarifying, will maintain on ATC budesonide therapy in the interim, PRN albuterol, continue home oxygen supplementation, HOB, IS parameters. #11. Former Tobacco Abuse: Encouraged continued tobacco cessation. #12. DVT prophylaxis: We will continue patient home Xarelto regimen. #13. CODE status: Patient JOSEFINA is her good friend Don and living will is currently in place. Discussed CODE status at length including difference betweenFULL code, DNR-CCA and DNR-CC status. Following discussions about the differences in these status, requested Full Code status. Advanced Care Planning Face to Face Time: 16 minutes. Charges/Coding Visit Charges Inpatient E&M: 08761 Init Hosp L3 Procedures Hospitalists Procedures: 19640 Advncd Care Plan 30 Min 06/29/23 2221 <Electronically signed by Roxanne Saxena MD> Cosigner Signature (if applicable): CC: Dr. Roxanne Saxena MD; Dr. Shena Jeffers, DO~ Signed [facility] Work Phone[facility] Work Phone[facility] Work Phone: Instructions* Name Dates Details Patient Instructions Indication:Smoker Start:14-Oct-2021 Instruction Type:Provider Instructions for Treatment How to Access Health Informa tion Online using Patient Portal and 3rd [employer] Apps Indication:Smoker Start:14-Oct-2021 Instruction Type:Patient Education Patient Instructions Indication:Smoker Start:05-Oct-2021 Instruction Type:Provider Instructions for Treatment How to Access Health Informa tion Online using Patient Portal and [employer]rd [employer] Apps Indication:Smoker Start:05-Oct-2021 Instruction Type:Patient Education Patient Instructions Indication:DM (diabetes mellitus), type 2, uncontrolled Start:30-Sep-2021 Instruction Type:Provider Instructions for Treatment How to Access Health Informa tion Online using Patient Portal and [employer]rd [employer] Apps Indication:Smoker Start:30-Sep-2021 Instruction Type:Patient Education Patient Instructions Indication:Smoker Start:19-Aug-2021 Instruction Type:Provider Instructions for Treatment How to Access Health Informa tion Online using Patient Portal and [employer]rd [employer] Apps Indication:Smoker Start:19-Aug-2021 Instruction Type:Patient Education Patient Instructions Indication:Smoker Start:22-Jul-2021 Instruction Type:Provider Instructions for Treatment How to Access Health Informa tion Online using Patient Portal and [employer]rd [employer] Apps Indication:Smoker Start:22-Jul-2021 Instruction Type:Patient Education Patient Instructions Indication:Smoker Start:15-Jul-2021 Instruction Type:Provider Instructions for Treatment How to Access Health Informa tion Online using Patient Portal and [employer]rd [employer] Apps Indication:Smoker Start:15-Jul-2021 Instruction Type:Patient Education Patient Instructions Indication:Smoker Start:10-Jul-2021 Instruction Type:Provider Instructions for Treatment How to Access Health Informa tion Online using Patient Portal and [employer]rd [employer] Apps Indication:Smoker Start:10-Jul-2021 Instruction Type:Patient Education Patient Instructions Indication:Smoker Start:27-May-2021 Instruction Type:Provider Instructions for Treatment How to Access Health Informa tion Online using Patient Portal and [employer]rd [employer] Apps Indication:Smoker Start:27-May-2021 Instruction Type:Patient Education [facility]; [facility] Work Phone: Instructions* Name Dates Details Patient Instructions Indication:Smoker Start:30-Oct-2021 Instruction Type:Provider Instructions for Treatment How to Access Health Informa tion Online using Patient Portal and [employer]rd [employer] Apps Indication:Smoker Start:30-Oct-2021 Instruction Type:Patient Education Patient Instructions Indication:Smoker Start:14-Oct-2021 Instruction Type:Provider Instructions for Treatment How to Access Health Informa tion Online using Patient Portal and [employer]rd [employer] Apps Indication:Smoker Start:14-Oct-2021 Instruction Type:Patient Education Patient Instructions Indication:Smoker Start:05-Oct-2021 Instruction Type:Provider Instructions for Treatment How to Access Health Informa tion Online using Patient Portal and [employer]rd [employer] Apps Indication:Smoker Start:05-Oct-2021 Instruction Type:Patient Education Patient Instructions Indication:DM (diabetes mellitus), type 2, uncontrolled Start:30-Sep-2021 Instruction Type:Provider Instructions for Treatment How to Access Health Informa tion Online using Patient Portal and [employer]rd [employer] Apps Indication:Smoker Start:30-Sep-2021 Instruction Type:Patient Education Patient Instructions Indication:Smoker Start:19-Aug-2021 Instruction Type:Provider Instructions for Treatment How to Access Health Informa tion Online using Patient Portal and [employer]rd [employer] Apps Indication:Smoker Start:19-Aug-2021 Instruction Type:Patient Education Patient Instructions Indication:Smoker Start:22-Jul-2021 Instruction Type:Provider Instructions for Treatment How to Access Health Informa tion Online using Patient Portal and [employer]rd [employer] Apps Indication:Smoker Start:22-Jul-2021 Instruction Type:Patient Education Patient Instructions Indication:Smoker Start:15-Jul-2021 Instruction Type:Provider Instructions for Treatment How to Access Health Informa tion Online using Patient Portal and [employer]rd [employer] Apps Indication:Smoker Start:15-Jul-2021 Instruction Type:Patient Education Patient Instructions Indication:Smoker Start:10-Jul-2021 Instruction Type:Provider Instructions for Treatment How to Access Health Informa tion Online using Patient Portal and [employer]rd [employer] Apps Indication:Smoker Start:10-Jul-2021 Instruction Type:Patient Education Patient Instructions Indication:Smoker Start:27-May-2021 Instruction Type:Provider Instructions for Treatment How to Access Health Informa tion Online using Patient Portal and [employer]rd [employer] Apps Indication:Smoker Start:27-May-2021 Instruction Type:Patient Education [facility]; [facility] Work Phone: Instructions* Name Dates Details Patient Instructions Indication:Smoker Start:30-Oct-2021 Instruction Type:Provider Instructions for Treatment How to Access Health Informa tion Online using Patient Portal and [employer]rd [employer] Apps Indication:Smoker Start:30-Oct-2021 Instruction Type:Patient Education Patient Instructions Indication:Smoker Start:14-Oct-2021 Instruction Type:Provider Instructions for Treatment How to Access Health Informa tion Online using Patient Portal and [employer]rd [employer] Apps Indication:Smoker Start:14-Oct-2021 Instruction Type:Patient Education Patient Instructions Indication:Smoker Start:05-Oct-2021 Instruction Type:Provider Instructions for Treatment How to Access Health Informa tion Online using Patient Portal and [employer]rd [employer] Apps Indication:Smoker Start:05-Oct-2021 Instruction Type:Patient Education Patient Instructions Indication:DM (diabetes mellitus), type 2, uncontrolled Start:30-Sep-2021 Instruction Type:Provider Instructions for Treatment How to Access Health Informa tion Online using Patient Portal and [employer]rd [employer] Apps Indication:Smoker Start:30-Sep-2021 Instruction Type:Patient Education Patient Instructions Indication:Smoker Start:19-Aug-2021 Instruction Type:Provider Instructions for Treatment How to Access Health Informa tion Online using Patient Portal and [employer]rd [employer] Apps Indication:Smoker Start:19-Aug-2021 Instruction Type:Patient Education Patient Instructions Indication:Smoker Start:22-Jul-2021 Instruction Type:Provider Instructions for Treatment How to Access Health Informa tion Online using Patient Portal and [employer]rd [employer] Apps Indication:Smoker Start:22-Jul-2021 Instruction Type:Patient Education Patient Instructions Indication:Smoker Start:15-Jul-2021 Instruction Type:Provider Instructions for Treatment How to Access Health Informa tion Online using Patient Portal and [employer]rd [employer] Apps Indication:Smoker Start:15-Jul-2021 Instruction Type:Patient Education Patient Instructions Indication:Smoker Start:10-Jul-2021 Instruction Type:Provider Instructions for Treatment How to Access Health Informa tion Online using Patient Portal and [employer]rd [employer] Apps Indication:Smoker Start:10-Jul-2021 Instruction Type:Patient Education Patient Instructions Indication:Smoker Start:27-May-2021 Instruction Type:Provider Instructions for Treatment How to Access Health Informa tion Online using Patient Portal and [employer]rd [employer] Apps Indication:Smoker Start:27-May-2021 Instruction Type:Patient Education [facility]; [facility] Work Phone: Instructions* Name Dates Details Patient Instructions Indication:Smoker Start:30-Oct-2021 Instruction Type:Provider Instructions for Treatment How to Access Health Informa tion Online using Patient Portal and [employer]rd [employer] Apps Indication:Smoker Start:30-Oct-2021 Instruction Type:Patient Education Patient Instructions Indication:Smoker Start:14-Oct-2021 Instruction Type:Provider Instructions for Treatment How to Access Health Informa tion Online using Patient Portal and [employer]rd [employer] Apps Indication:Smoker Start:14-Oct-2021 Instruction Type:Patient Education Patient Instructions Indication:Smoker Start:05-Oct-2021 Instruction Type:Provider Instructions for Treatment How to Access Health Informa tion Online using Patient Portal and [employer]rd [employer] Apps Indication:Smoker Start:05-Oct-2021 Instruction Type:Patient Education Patient Instructions Indication:DM (diabetes mellitus), type 2, uncontrolled Start:30-Sep-2021 Instruction Type:Provider Instructions for Treatment How to Access Health Informa tion Online using Patient Portal and [employer]rd [employer] Apps Indication:Smoker Start:30-Sep-2021 Instruction Type:Patient Education Patient Instructions Indication:Smoker Start:19-Aug-2021 Instruction Type:Provider Instructions for Treatment How to Access Health Informa tion Online using Patient Portal and [employer]rd [employer] Apps Indication:Smoker Start:19-Aug-2021 Instruction Type:Patient Education Patient Instructions Indication:Smoker Start:22-Jul-2021 Instruction Type:Provider Instructions for Treatment How to Access Health Informa tion Online using Patient Portal and [employer]rd [employer] Apps Indication:Smoker Start:22-Jul-2021 Instruction Type:Patient Education Patient Instructions Indication:Smoker Start:15-Jul-2021 Instruction Type:Provider Instructions for Treatment How to Access Health Informa tion Online using Patient Portal and [employer]rd [employer] Apps Indication:Smoker Start:15-Jul-2021 Instruction Type:Patient Education Patient Instructions Indication:Smoker Start:10-Jul-2021 Instruction Type:Provider Instructions for Treatment How to Access Health Informa tion Online using Patient Portal and [employer]rd [employer] Apps Indication:Smoker Start:10-Jul-2021 Instruction Type:Patient Education Patient Instructions Indication:Smoker Start:27-May-2021 Instruction Type:Provider Instructions for Treatment How to Access Health Informa tion Online using Patient Portal and [employer]rd [employer] Apps Indication:Smoker Start:27-May-2021 Instruction Type:Patient Education [facility]; [facility] Work Phone: Instructions* Name Dates Details Patient Instructions Indication:Smoker Start:30-Oct-2021 Instruction Type:Provider Instructions for Treatment How to Access Health Informa tion Online using Patient Portal and [employer]rd [employer] Apps Indication:Smoker Start:30-Oct-2021 Instruction Type:Patient Education Patient Instructions Indication:Smoker Start:14-Oct-2021 Instruction Type:Provider Instructions for Treatment How to Access Health Informa tion Online using Patient Portal and [employer]rd [employer] Apps Indication:Smoker Start:14-Oct-2021 Instruction Type:Patient Education Patient Instructions Indication:Smoker Start:05-Oct-2021 Instruction Type:Provider Instructions for Treatment How to Access Health Informa tion Online using Patient Portal and [employer]rd [employer] Apps Indication:Smoker Start:05-Oct-2021 Instruction Type:Patient Education Patient Instructions Indication:DM (diabetes mellitus), type 2, uncontrolled Start:30-Sep-2021 Instruction Type:Provider Instructions for Treatment How to Access Health Informa tion Online using Patient Portal and [employer]rd [employer] Apps Indication:Smoker Start:30-Sep-2021 Instruction Type:Patient Education Patient Instructions Indication:Smoker Start:19-Aug-2021 Instruction Type:Provider Instructions for Treatment How to Access Health Informa tion Online using Patient Portal and [employer]rd [employer] Apps Indication:Smoker Start:19-Aug-2021 Instruction Type:Patient Education Patient Instructions Indication:Smoker Start:22-Jul-2021 Instruction Type:Provider Instructions for Treatment How to Access Health Informa tion Online using Patient Portal and [employer]rd [employer] Apps Indication:Smoker Start:22-Jul-2021 Instruction Type:Patient Education Patient Instructions Indication:Smoker Start:15-Jul-2021 Instruction Type:Provider Instructions for Treatment How to Access Health Informa tion Online using Patient Portal and [employer]rd [employer] Apps Indication:Smoker Start:15-Jul-2021 Instruction Type:Patient Education Patient Instructions Indication:Smoker Start:10-Jul-2021 Instruction Type:Provider Instructions for Treatment How to Access Health Informa tion Online using Patient Portal and [employer]rd [employer] Apps Indication:Smoker Start:10-Jul-2021 Instruction Type:Patient Education Patient Instructions Indication:Smoker Start:27-May-2021 Instruction Type:Provider Instructions for Treatment How to Access Health Informa tion Online using Patient Portal and [employer]rd [employer] Apps Indication:Smoker Start:27-May-2021 Instruction Type:Patient Education [facility]; [facility] Work Phone: Instructions* Name Dates Details Patient Instructions Indication:DM (diabetes mellitus), type 2, uncontrolled Start:27-Nov-2021 Instruction Type:Provider Instructions for Treatment How to Access Health Informa tion Online using Patient Portal and [employer]rd [employer] Apps Indication:DM (diabetes mellitus), type 2, uncontrolled Start:27-Nov-2021 Instruction Type:Patient Education Patient Instructions Indication:Smoker Start:30-Oct-2021 Instruction Type:Provider Instructions for Treatment How to Access Health Informa tion Online using Patient Portal and [employer]rd [employer] Apps Indication:Smoker Start:30-Oct-2021 Instruction Type:Patient Education Patient Instructions Indication:Smoker Start:14-Oct-2021 Instruction Type:Provider Instructions for Treatment How to Access Health Informa tion Online using Patient Portal and [employer]rd [employer] Apps Indication:Smoker Start:14-Oct-2021 Instruction Type:Patient Education Patient Instructions Indication:Smoker Start:05-Oct-2021 Instruction Type:Provider Instructions for Treatment How to Access Health Informa tion Online using Patient Portal and [employer]rd [employer] Apps Indication:Smoker Start:05-Oct-2021 Instruction Type:Patient Education Patient Instructions Indication:DM (diabetes mellitus), type 2, uncontrolled Start:30-Sep-2021 Instruction Type:Provider Instructions for Treatment How to Access Health Informa tion Online using Patient Portal and [employer]rd [employer] Apps Indication:Smoker Start:30-Sep-2021 Instruction Type:Patient Education Patient Instructions Indication:Smoker Start:19-Aug-2021 Instruction Type:Provider Instructions for Treatment How to Access Health Informa tion Online using Patient Portal and [employer]rd [employer] Apps Indication:Smoker Start:19-Aug-2021 Instruction Type:Patient Education Patient Instructions Indication:Smoker Start:22-Jul-2021 Instruction Type:Provider Instructions for Treatment How to Access Health Informa tion Online using Patient Portal and [employer]rd [employer] Apps Indication:Smoker Start:22-Jul-2021 Instruction Type:Patient Education Patient Instructions Indication:Smoker Start:15-Jul-2021 Instruction Type:Provider Instructions for Treatment How to Access Health Informa tion Online using Patient Portal and [employer]rd [employer] Apps Indication:Smoker Start:15-Jul-2021 Instruction Type:Patient Education Patient Instructions Indication:Smoker Start:10-Jul-2021 Instruction Type:Provider Instructions for Treatment How to Access Health Informa tion Online using Patient Portal and [employer]rd [employer] Apps Indication:Smoker Start:10-Jul-2021 Instruction Type:Patient Education Patient Instructions Indication:Smoker Start:27-May-2021 Instruction Type:Provider Instructions for Treatment How to Access Health Informa tion Online using Patient Portal and [employer]rd [employer] Apps Indication:Smoker Start:27-May-2021 Instruction Type:Patient Education [facility]; [facility] Work Phone: Instructions* Name Dates Details Patient Instructions Indication:DM (diabetes mellitus), type 2, uncontrolled Start:27-Nov-2021 Instruction Type:Provider Instructions for Treatment How to Access Health Informa tion Online using Patient Portal and [employer]rd [employer] Apps Indication:DM (diabetes mellitus), type 2, uncontrolled Start:27-Nov-2021 Instruction Type:Patient Education Patient Instructions Indication:Smoker Start:30-Oct-2021 Instruction Type:Provider Instructions for Treatment How to Access Health Informa tion Online using Patient Portal and [employer]rd [employer] Apps Indication:Smoker Start:30-Oct-2021 Instruction Type:Patient Education Patient Instructions Indication:Smoker Start:14-Oct-2021 Instruction Type:Provider Instructions for Treatment How to Access Health Informa tion Online using Patient Portal and [employer]rd [employer] Apps Indication:Smoker Start:14-Oct-2021 Instruction Type:Patient Education Patient Instructions Indication:Smoker Start:05-Oct-2021 Instruction Type:Provider Instructions for Treatment How to Access Health Informa tion Online using Patient Portal and [employer]rd [employer] Apps Indication:Smoker Start:05-Oct-2021 Instruction Type:Patient Education Patient Instructions Indication:DM (diabetes mellitus), type 2, uncontrolled Start:30-Sep-2021 Instruction Type:Provider Instructions for Treatment How to Access Health Informa tion Online using Patient Portal and [employer]rd [employer] Apps Indication:Smoker Start:30-Sep-2021 Instruction Type:Patient Education Patient Instructions Indication:Smoker Start:19-Aug-2021 Instruction Type:Provider Instructions for Treatment How to Access Health Informa tion Online using Patient Portal and [employer]rd [employer] Apps Indication:Smoker Start:19-Aug-2021 Instruction Type:Patient Education Patient Instructions Indication:Smoker Start:22-Jul-2021 Instruction Type:Provider Instructions for Treatment How to Access Health Informa tion Online using Patient Portal and [employer]rd [employer] Apps Indication:Smoker Start:22-Jul-2021 Instruction Type:Patient Education Patient Instructions Indication:Smoker Start:15-Jul-2021 Instruction Type:Provider Instructions for Treatment How to Access Health Informa tion Online using Patient Portal and [employer]rd [employer] Apps Indication:Smoker Start:15-Jul-2021 Instruction Type:Patient Education Patient Instructions Indication:Smoker Start:10-Jul-2021 Instruction Type:Provider Instructions for Treatment How to Access Health Informa tion Online using Patient Portal and [employer]rd [employer] Apps Indication:Smoker Start:10-Jul-2021 Instruction Type:Patient Education Patient Instructions Indication:Smoker Start:27-May-2021 Instruction Type:Provider Instructions for Treatment How to Access Health Informa tion Online using Patient Portal and [employer]rd [employer] Apps Indication:Smoker Start:27-May-2021 Instruction Type:Patient Education [facility]; [facility] Work Phone: Instructions* Name Dates Details Patient Instructions Indication:DM (diabetes mellitus), type 2, uncontrolled Start:27-Nov-2021 Instruction Type:Provider Instructions for Treatment How to Access Health Informa tion Online using Patient Portal and [employer]rd [employer] Apps Indication:DM (diabetes mellitus), type 2, uncontrolled Start:27-Nov-2021 Instruction Type:Patient Education Patient Instructions Indication:Smoker Start:30-Oct-2021 Instruction Type:Provider Instructions for Treatment How to Access Health Informa tion Online using Patient Portal and [employer]rd [employer] Apps Indication:Smoker Start:30-Oct-2021 Instruction Type:Patient Education Patient Instructions Indication:Smoker Start:14-Oct-2021 Instruction Type:Provider Instructions for Treatment How to Access Health Informa tion Online using Patient Portal and [employer]rd [employer] Apps Indication:Smoker Start:14-Oct-2021 Instruction Type:Patient Education Patient Instructions Indication:Smoker Start:05-Oct-2021 Instruction Type:Provider Instructions for Treatment How to Access Health Informa tion Online using Patient Portal and [employer]rd [employer] Apps Indication:Smoker Start:05-Oct-2021 Instruction Type:Patient Education Patient Instructions Indication:DM (diabetes mellitus), type 2, uncontrolled Start:30-Sep-2021 Instruction Type:Provider Instructions for Treatment How to Access Health Informa tion Online using Patient Portal and [employer]rd [employer] Apps Indication:Smoker Start:30-Sep-2021 Instruction Type:Patient Education Patient Instructions Indication:Smoker Start:19-Aug-2021 Instruction Type:Provider Instructions for Treatment How to Access Health Informa tion Online using Patient Portal and [employer]rd [employer] Apps Indication:Smoker Start:19-Aug-2021 Instruction Type:Patient Education Patient Instructions Indication:Smoker Start:22-Jul-2021 Instruction Type:Provider Instructions for Treatment How to Access Health Informa tion Online using Patient Portal and [employer]rd [employer] Apps Indication:Smoker Start:22-Jul-2021 Instruction Type:Patient Education Patient Instructions Indication:Smoker Start:15-Jul-2021 Instruction Type:Provider Instructions for Treatment How to Access Health Informa tion Online using Patient Portal and [employer]rd [employer] Apps Indication:Smoker Start:15-Jul-2021 Instruction Type:Patient Education Patient Instructions Indication:Smoker Start:10-Jul-2021 Instruction Type:Provider Instructions for Treatment How to Access Health Informa tion Online using Patient Portal and [employer]rd [employer] Apps Indication:Smoker Start:10-Jul-2021 Instruction Type:Patient Education Patient Instructions Indication:Smoker Start:27-May-2021 Instruction Type:Provider Instructions for Treatment How to Access Health Informa tion Online using Patient Portal and [employer]rd [employer] Apps Indication:Smoker Start:27-May-2021 Instruction Type:Patient Education [facility]; [facility] Work Phone: Instructions* Name Dates Details Patient Instructions Indication:DM (diabetes mellitus), type 2, uncontrolled Start:27-Nov-2021 Instruction Type:Provider Instructions for Treatment How to Access Health Informa tion Online using Patient Portal and [employer]rd [employer] Apps Indication:DM (diabetes mellitus), type 2, uncontrolled Start:27-Nov-2021 Instruction Type:Patient Education Patient Instructions Indication:Smoker Start:30-Oct-2021 Instruction Type:Provider Instructions for Treatment How to Access Health Informa tion Online using Patient Portal and [employer]rd [employer] Apps Indication:Smoker Start:30-Oct-2021 Instruction Type:Patient Education Patient Instructions Indication:Smoker Start:14-Oct-2021 Instruction Type:Provider Instructions for Treatment How to Access Health Informa tion Online using Patient Portal and [employer]rd [employer] Apps Indication:Smoker Start:14-Oct-2021 Instruction Type:Patient Education Patient Instructions Indication:Smoker Start:05-Oct-2021 Instruction Type:Provider Instructions for Treatment How to Access Health Informa tion Online using Patient Portal and [employer]rd [employer] Apps Indication:Smoker Start:05-Oct-2021 Instruction Type:Patient Education Patient Instructions Indication:DM (diabetes mellitus), type 2, uncontrolled Start:30-Sep-2021 Instruction Type:Provider Instructions for Treatment How to Access Health Informa tion Online using Patient Portal and [employer]rd [employer] Apps Indication:Smoker Start:30-Sep-2021 Instruction Type:Patient Education Patient Instructions Indication:Smoker Start:19-Aug-2021 Instruction Type:Provider Instructions for Treatment How to Access Health Informa tion Online using Patient Portal and [employer]rd [employer] Apps Indication:Smoker Start:19-Aug-2021 Instruction Type:Patient Education Patient Instructions Indication:Smoker Start:22-Jul-2021 Instruction Type:Provider Instructions for Treatment How to Access Health Informa tion Online using Patient Portal and [employer]rd [employer] Apps Indication:Smoker Start:22-Jul-2021 Instruction Type:Patient Education Patient Instructions Indication:Smoker Start:15-Jul-2021 Instruction Type:Provider Instructions for Treatment How to Access Health Informa tion Online using Patient Portal and [employer]rd [employer] Apps Indication:Smoker Start:15-Jul-2021 Instruction Type:Patient Education Patient Instructions Indication:Smoker Start:10-Jul-2021 Instruction Type:Provider Instructions for Treatment How to Access Health Informa tion Online using Patient Portal and [employer]rd [employer] Apps Indication:Smoker Start:10-Jul-2021 Instruction Type:Patient Education Patient Instructions Indication:Smoker Start:27-May-2021 Instruction Type:Provider Instructions for Treatment How to Access Health Informa tion Online using Patient Portal and [employer]rd [employer] Apps Indication:Smoker Start:27-May-2021 Instruction Type:Patient Education [facility]; [facility] Work Phone: Instructions* Name Dates Details Patient Instructions Indication:DM (diabetes mellitus), type 2, uncontrolled Start:27-Nov-2021 Instruction Type:Provider Instructions for Treatment How to Access Health Informa tion Online using Patient Portal and [employer]rd [employer] Apps Indication:DM (diabetes mellitus), type 2, uncontrolled Start:27-Nov-2021 Instruction Type:Patient Education Patient Instructions Indication:Smoker Start:30-Oct-2021 Instruction Type:Provider Instructions for Treatment How to Access Health Informa tion Online using Patient Portal and [employer]rd [employer] Apps Indication:Smoker Start:30-Oct-2021 Instruction Type:Patient Education Patient Instructions Indication:Smoker Start:14-Oct-2021 Instruction Type:Provider Instructions for Treatment How to Access Health Informa tion Online using Patient Portal and [employer]rd [employer] Apps Indication:Smoker Start:14-Oct-2021 Instruction Type:Patient Education Patient Instructions Indication:Smoker Start:05-Oct-2021 Instruction Type:Provider Instructions for Treatment How to Access Health Informa tion Online using Patient Portal and [employer]rd [employer] Apps Indication:Smoker Start:05-Oct-2021 Instruction Type:Patient Education Patient Instructions Indication:DM (diabetes mellitus), type 2, uncontrolled Start:30-Sep-2021 Instruction Type:Provider Instructions for Treatment How to Access Health Informa tion Online using Patient Portal and [employer]rd [employer] Apps Indication:Smoker Start:30-Sep-2021 Instruction Type:Patient Education Patient Instructions Indication:Smoker Start:19-Aug-2021 Instruction Type:Provider Instructions for Treatment How to Access Health Informa tion Online using Patient Portal and [employer]rd [employer] Apps Indication:Smoker Start:19-Aug-2021 Instruction Type:Patient Education Patient Instructions Indication:Smoker Start:22-Jul-2021 Instruction Type:Provider Instructions for Treatment How to Access Health Informa tion Online using Patient Portal and [employer]rd [employer] Apps Indication:Smoker Start:22-Jul-2021 Instruction Type:Patient Education Patient Instructions Indication:Smoker Start:15-Jul-2021 Instruction Type:Provider Instructions for Treatment How to Access Health Informa tion Online using Patient Portal and [employer]rd [employer] Apps Indication:Smoker Start:15-Jul-2021 Instruction Type:Patient Education Patient Instructions Indication:Smoker Start:10-Jul-2021 Instruction Type:Provider Instructions for Treatment How to Access Health Informa tion Online using Patient Portal and [employer]rd [employer] Apps Indication:Smoker Start:10-Jul-2021 Instruction Type:Patient Education Patient Instructions Indication:Smoker Start:27-May-2021 Instruction Type:Provider Instructions for Treatment How to Access Health Informa tion Online using Patient Portal and [employer]rd [employer] Apps Indication:Smoker Start:27-May-2021 Instruction Type:Patient Education [facility]; [facility] Work Phone: Instructions* Name Dates Details Patient Instructions Indication:Laceration of skin of eyebrow Start:08-Dec-2021 Instruction Type:Provider Instructions for Treatment How to Access Health Informa tion Online using Patient Portal and [employer]rd [employer] Apps Indication:Laceration of skin of eyebrow Start:08-Dec-2021 Instruction Type:Patient Education Patient Instructions Indication:DM (diabetes mellitus), type 2, uncontrolled Start:27-Nov-2021 Instruction Type:Provider Instructions for Treatment How to Access Health Informa tion Online using Patient Portal and [employer]rd [employer] Apps Indication:DM (diabetes mellitus), type 2, uncontrolled Start:27-Nov-2021 Instruction Type:Patient Education Patient Instructions Indication:Smoker Start:30-Oct-2021 Instruction Type:Provider Instructions for Treatment How to Access Health Informa tion Online using Patient Portal and [employer] Apps Indication:Smoker Start:30-Oct-2021 Instruction Type:Patient Education Patient Instructions Indication:Smoker Start:14-Oct-2021 Instruction Type:Provider Instructions for Treatment How to Access Health Informa tion Online using Patient Portal and [employer] Apps Indication:Smoker Start:14-Oct-2021 Instruction Type:Patient Education Patient Instructions Indication:Smoker Start:05-Oct-2021 Instruction Type:Provider Instructions for Treatment How to Access Health Informa tion Online using Patient Portal and [employer] Apps Indication:Smoker Start:05-Oct-2021 Instruction Type:Patient Education Patient Instructions Indication:DM (diabetes mellitus), type 2, uncontrolled Start:30-Sep-2021 Instruction Type:Provider Instructions for Treatment How to Access Health Informa tion Online using Patient Portal and [employer] Apps Indication:Smoker Start:30-Sep-2021 Instruction Type:Patient Education Patient Instructions Indication:Smoker Start:19-Aug-2021 Instruction Type:Provider Instructions for Treatment How to Access Health Informa tion Online using Patient Portal and [employer] Apps Indication:Smoker Start:19-Aug-2021 Instruction Type:Patient Education Patient Instructions Indication:Smoker Start:22-Jul-2021 Instruction Type:Provider Instructions for Treatment How to Access Health Informa tion Online using Patient Portal and [employer] Apps Indication:Smoker Start:22-Jul-2021 Instruction Type:Patient Education Patient Instructions Indication:Smoker Start:15-Jul-2021 Instruction Type:Provider Instructions for Treatment How to Access Health Informa tion Online using Patient Portal and [employer] Apps Indication:Smoker Start:15-Jul-2021 Instruction Type:Patient Education Patient Instructions Indication:Smoker Start:10-Jul-2021 Instruction Type:Provider Instructions for Treatment How to Access Health Informa tion Online using Patient Portal and [employer]rd [employer] Apps Indication:Smoker Start:10-Jul-2021 Instruction Type:Patient Education Patient Instructions Indication:Smoker Start:27-May-2021 Instruction Type:Provider Instructions for Treatment How to Access Health Informa tion Online using Patient Portal and [employer]rd [employer] Apps Indication:Smoker Start:27-May-2021 Instruction Type:Patient Education [facility]; [facility] Work Phone: Instructions* Name Dates Details Patient Instructions Indication:Smoker Start:21-Dec-2021 Instruction Type:Provider Instructions for Treatment How to Access Health Informa tion Online using Patient Portal and [employer] Apps Indication:Smoker Start:21-Dec-2021 Instruction Type:Patient Education Patient Instructions Indication:Laceration of skin of eyebrow Start:08-Dec-2021 Instruction Type:Provider Instructions for Treatment How to Access Health Informa tion Online using Patient Portal and [employer] Apps Indication:Laceration of skin of eyebrow Start:08-Dec-2021 Instruction Type:Patient Education Patient Instructions Indication:DM (diabetes mellitus), type 2, uncontrolled Start:27-Nov-2021 Instruction Type:Provider Instructions for Treatment How to Access Health Informa tion Online using Patient Portal and [employer] Apps Indication:DM (diabetes mellitus), type 2, uncontrolled Start:27-Nov-2021 Instruction Type:Patient Education Patient Instructions Indication:Smoker Start:30-Oct-2021 Instruction Type:Provider Instructions for Treatment How to Access Health Informa tion Online using Patient Portal and [employer] Apps Indication:Smoker Start:30-Oct-2021 Instruction Type:Patient Education Patient Instructions Indication:Smoker Start:14-Oct-2021 Instruction Type:Provider Instructions for Treatment How to Access Health Informa tion Online using Patient Portal and [employer] Apps Indication:Smoker Start:14-Oct-2021 Instruction Type:Patient Education Patient Instructions Indication:Smoker Start:05-Oct-2021 Instruction Type:Provider Instructions for Treatment How to Access Health Informa tion Online using Patient Portal and [employer] Apps Indication:Smoker Start:05-Oct-2021 Instruction Type:Patient Education Patient Instructions Indication:DM (diabetes mellitus), type 2, uncontrolled Start:30-Sep-2021 Instruction Type:Provider Instructions for Treatment How to Access Health Informa tion Online using Patient Portal and [employer] Apps Indication:Smoker Start:30-Sep-2021 Instruction Type:Patient Education Patient Instructions Indication:Smoker Start:19-Aug-2021 Instruction Type:Provider Instructions for Treatment How to Access Health Informa tion Online using Patient Portal and [employer] Apps Indication:Smoker Start:19-Aug-2021 Instruction Type:Patient Education Patient Instructions Indication:Smoker Start:22-Jul-2021 Instruction Type:Provider Instructions for Treatment How to Access Health Informa tion Online using Patient Portal and [employer]rd [employer] Apps Indication:Smoker Start:22-Jul-2021 Instruction Type:Patient Education Patient Instructions Indication:Smoker Start:15-Jul-2021 Instruction Type:Provider Instructions for Treatment How to Access Health Informa tion Online using Patient Portal and [employer] Apps Indication:Smoker Start:15-Jul-2021 Instruction Type:Patient Education Patient Instructions Indication:Smoker Start:10-Jul-2021 Instruction Type:Provider Instructions for Treatment How to Access Health Informa tion Online using Patient Portal and [employer] Apps Indication:Smoker Start:10-Jul-2021 Instruction Type:Patient Education Patient Instructions Indication:Smoker Start:27-May-2021 Instruction Type:Provider Instructions for Treatment How to Access Health Informa tion Online using Patient Portal and [employer] Apps Indication:Smoker Start:27-May-2021 Instruction Type:Patient Education [facility]; [facility] Work Phone: Instructions* Name Dates Details Patient Instructions Indication:Non-smoker Start:11-Feb-2022 Instruction Type:Provider Instructions for Treatment How to Access Health Informa tion Online using Patient Portal and [employer] Apps Indication:Non-smoker Start:11-Feb-2022 Instruction Type:Patient Education How to Access Health Informa tion Online using Patient Portal and [employer]rd [employer] Apps Indication:Non-smoker Start:11-Feb-2022 Instruction Type:Patient Education Patient Instructions Indication:BMI 27.0-27.9,adult Start:20-Jan-2022 Instruction Type:Provider Instructions for Treatment How to Access Health Informa tion Online using Patient Portal and [employer]rd [employer] Apps Indication:BMI 27.0-27.9,adult Start:20-Jan-2022 Instruction Type:Patient Education Patient Instructions Indication:Smoker Start:21-Dec-2021 Instruction Type:Provider Instructions for Treatment How to Access Health Informa tion Online using Patient Portal and [employer]rd [employer] Apps Indication:Smoker Start:21-Dec-2021 Instruction Type:Patient Education Patient Instructions Indication:Laceration of skin of eyebrow Start:08-Dec-2021 Instruction Type:Provider Instructions for Treatment How to Access Health Informa tion Online using Patient Portal and [employer]rd [employer] Apps Indication:Laceration of skin of eyebrow Start:08-Dec-2021 Instruction Type:Patient Education Patient Instructions Indication:DM (diabetes mellitus), type 2, uncontrolled Start:27-Nov-2021 Instruction Type:Provider Instructions for Treatment How to Access Health Informa tion Online using Patient Portal and [employer]rd [employer] Apps Indication:DM (diabetes mellitus), type 2, uncontrolled Start:27-Nov-2021 Instruction Type:Patient Education Patient Instructions Indication:Smoker Start:30-Oct-2021 Instruction Type:Provider Instructions for Treatment How to Access Health Informa tion Online using Patient Portal and [employer]rd [employer] Apps Indication:Smoker Start:30-Oct-2021 Instruction Type:Patient Education Patient Instructions Indication:Smoker Start:14-Oct-2021 Instruction Type:Provider Instructions for Treatment How to Access Health Informa tion Online using Patient Portal and [employer]rd [employer] Apps Indication:Smoker Start:14-Oct-2021 Instruction Type:Patient Education Patient Instructions Indication:Smoker Start:05-Oct-2021 Instruction Type:Provider Instructions for Treatment How to Access Health Informa tion Online using Patient Portal and [employer]rd [employer] Apps Indication:Smoker Start:05-Oct-2021 Instruction Type:Patient Education Patient Instructions Indication:DM (diabetes mellitus), type 2, uncontrolled Start:30-Sep-2021 Instruction Type:Provider Instructions for Treatment How to Access Health Informa tion Online using Patient Portal and [employer]rd [employer] Apps Indication:Smoker Start:30-Sep-2021 Instruction Type:Patient Education Patient Instructions Indication:Smoker Start:19-Aug-2021 Instruction Type:Provider Instructions for Treatment How to Access Health Informa tion Online using Patient Portal and [employer] Apps Indication:Smoker Start:19-Aug-2021 Instruction Type:Patient Education Patient Instructions Indication:Smoker Start:22-Jul-2021 Instruction Type:Provider Instructions for Treatment How to Access Health Informa tion Online using Patient Portal and [employer]rd [employer] Apps Indication:Smoker Start:22-Jul-2021 Instruction Type:Patient Education Patient Instructions Indication:Smoker Start:15-Jul-2021 Instruction Type:Provider Instructions for Treatment How to Access Health Informa tion Online using Patient Portal and [employer]rd [employer] Apps Indication:Smoker Start:15-Jul-2021 Instruction Type:Patient Education Patient Instructions Indication:Smoker Start:10-Jul-2021 Instruction Type:Provider Instructions for Treatment How to Access Health Informa tion Online using Patient Portal and [employer] Apps Indication:Smoker Start:10-Jul-2021 Instruction Type:Patient Education Patient Instructions Indication:Smoker Start:27-May-2021 Instruction Type:Provider Instructions for Treatment How to Access Health Informa tion Online using Patient Portal and [employer]rd [employer] Apps Indication:Smoker Start:27-May-2021 Instruction Type:Patient Education [facility]; [facility] Work Phone: Instructions* Name Dates Details Patient Instructions Indication:Non-smoker Start:01-Mar-2022 Instruction Type:Provider Instructions for Treatment How to Access Health Informa tion Online using Patient Portal and [employer]rd [employer] Apps Indication:Non-smoker Start:01-Mar-2022 Instruction Type:Patient Education Patient Instructions Indication:Non-smoker Start:11-Feb-2022 Instruction Type:Provider Instructions for Treatment How to Access Health Informa tion Online using Patient Portal and [employer]rd [employer] Apps Indication:Non-smoker Start:11-Feb-2022 Instruction Type:Patient Education How to Access Health Informa tion Online using Patient Portal and [employer]rd [employer] Apps Indication:Non-smoker Start:11-Feb-2022 Instruction Type:Patient Education Patient Instructions Indication:BMI 27.0-27.9,adult Start:20-Jan-2022 Instruction Type:Provider Instructions for Treatment How to Access Health Informa tion Online using Patient Portal and [employer]rd [employer] Apps Indication:BMI 27.0-27.9,adult Start:20-Jan-2022 Instruction Type:Patient Education Patient Instructions Indication:Smoker Start:21-Dec-2021 Instruction Type:Provider Instructions for Treatment How to Access Health Informa tion Online using Patient Portal and [employer]rd [employer] Apps Indication:Smoker Start:21-Dec-2021 Instruction Type:Patient Education Patient Instructions Indication:Laceration of skin of eyebrow Start:08-Dec-2021 Instruction Type:Provider Instructions for Treatment How to Access Health Informa tion Online using Patient Portal and [employer]rd [employer] Apps Indication:Laceration of skin of eyebrow Start:08-Dec-2021 Instruction Type:Patient Education Patient Instructions Indication:DM (diabetes mellitus), type 2, uncontrolled Start:27-Nov-2021 Instruction Type:Provider Instructions for Treatment How to Access Health Informa tion Online using Patient Portal and [employer]rd [employer] Apps Indication:DM (diabetes mellitus), type 2, uncontrolled Start:27-Nov-2021 Instruction Type:Patient Education Patient Instructions Indication:Smoker Start:30-Oct-2021 Instruction Type:Provider Instructions for Treatment How to Access Health Informa tion Online using Patient Portal and [employer] Apps Indication:Smoker Start:30-Oct-2021 Instruction Type:Patient Education Patient Instructions Indication:Smoker Start:14-Oct-2021 Instruction Type:Provider Instructions for Treatment How to Access Health Informa tion Online using Patient Portal and [employer]rd [employer] Apps Indication:Smoker Start:14-Oct-2021 Instruction Type:Patient Education Patient Instructions Indication:Smoker Start:05-Oct-2021 Instruction Type:Provider Instructions for Treatment How to Access Health Informa tion Online using Patient Portal and [employer]rd [employer] Apps Indication:Smoker Start:05-Oct-2021 Instruction Type:Patient Education Patient Instructions Indication:DM (diabetes mellitus), type 2, uncontrolled Start:30-Sep-2021 Instruction Type:Provider Instructions for Treatment How to Access Health Informa tion Online using Patient Portal and [employer]rd [employer] Apps Indication:Smoker Start:30-Sep-2021 Instruction Type:Patient Education Patient Instructions Indication:Smoker Start:19-Aug-2021 Instruction Type:Provider Instructions for Treatment How to Access Health Informa tion Online using Patient Portal and [employer]rd [employer] Apps Indication:Smoker Start:19-Aug-2021 Instruction Type:Patient Education Patient Instructions Indication:Smoker Start:22-Jul-2021 Instruction Type:Provider Instructions for Treatment How to Access Health Informa tion Online using Patient Portal and [employer]rd [employer] Apps Indication:Smoker Start:22-Jul-2021 Instruction Type:Patient Education Patient Instructions Indication:Smoker Start:15-Jul-2021 Instruction Type:Provider Instructions for Treatment How to Access Health Informa tion Online using Patient Portal and [employer]rd [employer] Apps Indication:Smoker Start:15-Jul-2021 Instruction Type:Patient Education Patient Instructions Indication:Smoker Start:10-Jul-2021 Instruction Type:Provider Instructions for Treatment How to Access Health Informa tion Online using Patient Portal and [employer] Apps Indication:Smoker Start:10-Jul-2021 Instruction Type:Patient Education Patient Instructions Indication:Smoker Start:27-May-2021 Instruction Type:Provider Instructions for Treatment How to Access Health Informa tion Online using Patient Portal and [employer]rd [employer] Apps Indication:Smoker Start:27-May-2021 Instruction Type:Patient Education [facility]; [facility] Work Phone: Instructions* Name Dates Details Patient Instructions Indication:Non-smoker Start:01-Mar-2022 Instruction Type:Provider Instructions for Treatment How to Access Health Informa tion Online using Patient Portal and [employer]rd [employer] Apps Indication:Non-smoker Start:01-Mar-2022 Instruction Type:Patient Education Patient Instructions Indication:Non-smoker Start:11-Feb-2022 Instruction Type:Provider Instructions for Treatment How to Access Health Informa tion Online using Patient Portal and [employer]rd [employer] Apps Indication:Non-smoker Start:11-Feb-2022 Instruction Type:Patient Education How to Access Health Informa tion Online using Patient Portal and [employer] Apps Indication:Non-smoker Start:11-Feb-2022 Instruction Type:Patient Education Patient Instructions Indication:BMI 27.0-27.9,adult Start:20-Jan-2022 Instruction Type:Provider Instructions for Treatment How to Access Health Informa tion Online using Patient Portal and [employer] Apps Indication:BMI 27.0-27.9,adult Start:20-Jan-2022 Instruction Type:Patient Education Patient Instructions Indication:Smoker Start:21-Dec-2021 Instruction Type:Provider Instructions for Treatment How to Access Health Informa tion Online using Patient Portal and [employer] Apps Indication:Smoker Start:21-Dec-2021 Instruction Type:Patient Education Patient Instructions Indication:Laceration of skin of eyebrow Start:08-Dec-2021 Instruction Type:Provider Instructions for Treatment How to Access Health Informa tion Online using Patient Portal and [employer] Apps Indication:Laceration of skin of eyebrow Start:08-Dec-2021 Instruction Type:Patient Education Patient Instructions Indication:DM (diabetes mellitus), type 2, uncontrolled Start:27-Nov-2021 Instruction Type:Provider Instructions for Treatment How to Access Health Informa tion Online using Patient Portal and [employer] Apps Indication:DM (diabetes mellitus), type 2, uncontrolled Start:27-Nov-2021 Instruction Type:Patient Education Patient Instructions Indication:Smoker Start:30-Oct-2021 Instruction Type:Provider Instructions for Treatment How to Access Health Informa tion Online using Patient Portal and [employer] Apps Indication:Smoker Start:30-Oct-2021 Instruction Type:Patient Education Patient Instructions Indication:Smoker Start:14-Oct-2021 Instruction Type:Provider Instructions for Treatment How to Access Health Informa tion Online using Patient Portal and [employer] Apps Indication:Smoker Start:14-Oct-2021 Instruction Type:Patient Education Patient Instructions Indication:Smoker Start:05-Oct-2021 Instruction Type:Provider Instructions for Treatment How to Access Health Informa tion Online using Patient Portal and [employer] Apps Indication:Smoker Start:05-Oct-2021 Instruction Type:Patient Education Patient Instructions Indication:DM (diabetes mellitus), type 2, uncontrolled Start:30-Sep-2021 Instruction Type:Provider Instructions for Treatment How to Access Health Informa tion Online using Patient Portal and [employer] Apps Indication:Smoker Start:30-Sep-2021 Instruction Type:Patient Education Patient Instructions Indication:Smoker Start:19-Aug-2021 Instruction Type:Provider Instructions for Treatment How to Access Health Informa tion Online using Patient Portal and [employer] Apps Indication:Smoker Start:19-Aug-2021 Instruction Type:Patient Education Patient Instructions Indication:Smoker Start:22-Jul-2021 Instruction Type:Provider Instructions for Treatment How to Access Health Informa tion Online using Patient Portal and [employer] Apps Indication:Smoker Start:22-Jul-2021 Instruction Type:Patient Education Patient Instructions Indication:Smoker Start:15-Jul-2021 Instruction Type:Provider Instructions for Treatment How to Access Health Informa tion Online using Patient Portal and [employer] Apps Indication:Smoker Start:15-Jul-2021 Instruction Type:Patient Education Patient Instructions Indication:Smoker Start:10-Jul-2021 Instruction Type:Provider Instructions for Treatment How to Access Health Informa tion Online using Patient Portal and [employer] Apps Indication:Smoker Start:10-Jul-2021 Instruction Type:Patient Education Patient Instructions Indication:Smoker Start:27-May-2021 Instruction Type:Provider Instructions for Treatment How to Access Health Informa tion Online using Patient Portal and [employer] Apps Indication:Smoker Start:27-May-2021 Instruction Type:Patient Education [facility]; [facility] Work Phone: Instructions* Name Dates Details Patient Instructions Indication:Non-smoker Start:01-Mar-2022 Instruction Type:Provider Instructions for Treatment How to Access Health Informa tion Online using Patient Portal and [employer] Apps Indication:Non-smoker Start:01-Mar-2022 Instruction Type:Patient Education Patient Instructions Indication:Non-smoker Start:11-Feb-2022 Instruction Type:Provider Instructions for Treatment How to Access Health Informa tion Online using Patient Portal and [employer] Apps Indication:Non-smoker Start:11-Feb-2022 Instruction Type:Patient Education How to Access Health Informa tion Online using Patient Portal and [employer] Apps Indication:Non-smoker Start:11-Feb-2022 Instruction Type:Patient Education Patient Instructions Indication:BMI 27.0-27.9,adult Start:20-Jan-2022 Instruction Type:Provider Instructions for Treatment How to Access Health Informa tion Online using Patient Portal and [employer] Apps Indication:BMI 27.0-27.9,adult Start:20-Jan-2022 Instruction Type:Patient Education Patient Instructions Indication:Smoker Start:21-Dec-2021 Instruction Type:Provider Instructions for Treatment How to Access Health Informa tion Online using Patient Portal and [employer] Apps Indication:Smoker Start:21-Dec-2021 Instruction Type:Patient Education Patient Instructions Indication:Laceration of skin of eyebrow Start:08-Dec-2021 Instruction Type:Provider Instructions for Treatment How to Access Health Informa tion Online using Patient Portal and [employer] Apps Indication:Laceration of skin of eyebrow Start:08-Dec-2021 Instruction Type:Patient Education Patient Instructions Indication:DM (diabetes mellitus), type 2, uncontrolled Start:27-Nov-2021 Instruction Type:Provider Instructions for Treatment How to Access Health Informa tion Online using Patient Portal and [employer] Apps Indication:DM (diabetes mellitus), type 2, uncontrolled Start:27-Nov-2021 Instruction Type:Patient Education Patient Instructions Indication:Smoker Start:30-Oct-2021 Instruction Type:Provider Instructions for Treatment How to Access Health Informa tion Online using Patient Portal and [employer] Apps Indication:Smoker Start:30-Oct-2021 Instruction Type:Patient Education Patient Instructions Indication:Smoker Start:14-Oct-2021 Instruction Type:Provider Instructions for Treatment How to Access Health Informa tion Online using Patient Portal and [employer] Apps Indication:Smoker Start:14-Oct-2021 Instruction Type:Patient Education Patient Instructions Indication:Smoker Start:05-Oct-2021 Instruction Type:Provider Instructions for Treatment How to Access Health Informa tion Online using Patient Portal and [employer] Apps Indication:Smoker Start:05-Oct-2021 Instruction Type:Patient Education Patient Instructions Indication:DM (diabetes mellitus), type 2, uncontrolled Start:30-Sep-2021 Instruction Type:Provider Instructions for Treatment How to Access Health Informa tion Online using Patient Portal and [employer] Apps Indication:Smoker Start:30-Sep-2021 Instruction Type:Patient Education Patient Instructions Indication:Smoker Start:19-Aug-2021 Instruction Type:Provider Instructions for Treatment How to Access Health Informa tion Online using Patient Portal and [employer] Apps Indication:Smoker Start:19-Aug-2021 Instruction Type:Patient Education Patient Instructions Indication:Smoker Start:22-Jul-2021 Instruction Type:Provider Instructions for Treatment How to Access Health Informa tion Online using Patient Portal and [employer] Apps Indication:Smoker Start:22-Jul-2021 Instruction Type:Patient Education Patient Instructions Indication:Smoker Start:15-Jul-2021 Instruction Type:Provider Instructions for Treatment How to Access Health Informa tion Online using Patient Portal and [employer] Apps Indication:Smoker Start:15-Jul-2021 Instruction Type:Patient Education Patient Instructions Indication:Smoker Start:10-Jul-2021 Instruction Type:Provider Instructions for Treatment How to Access Health Informa tion Online using Patient Portal and [employer] Apps Indication:Smoker Start:10-Jul-2021 Instruction Type:Patient Education Patient Instructions Indication:Smoker Start:27-May-2021 Instruction Type:Provider Instructions for Treatment How to Access Health Informa tion Online using Patient Portal and [employer] Apps Indication:Smoker Start:27-May-2021 Instruction Type:Patient Education [facility]; [facility] Work Phone: Instructions* Name Dates Details Patient Instructions Indication:Non-smoker Start:01-Mar-2022 Instruction Type:Provider Instructions for Treatment How to Access Health Informa tion Online using Patient Portal and [employer] Apps Indication:Non-smoker Start:01-Mar-2022 Instruction Type:Patient Education Patient Instructions Indication:Non-smoker Start:11-Feb-2022 Instruction Type:Provider Instructions for Treatment How to Access Health Informa tion Online using Patient Portal and [employer] Apps Indication:Non-smoker Start:11-Feb-2022 Instruction Type:Patient Education How to Access Health Informa tion Online using Patient Portal and [employer] Apps Indication:Non-smoker Start:11-Feb-2022 Instruction Type:Patient Education Patient Instructions Indication:BMI 27.0-27.9,adult Start:20-Jan-2022 Instruction Type:Provider Instructions for Treatment How to Access Health Informa tion Online using Patient Portal and [employer] Apps Indication:BMI 27.0-27.9,adult Start:20-Jan-2022 Instruction Type:Patient Education Patient Instructions Indication:Smoker Start:21-Dec-2021 Instruction Type:Provider Instructions for Treatment How to Access Health Informa tion Online using Patient Portal and [employer] Apps Indication:Smoker Start:21-Dec-2021 Instruction Type:Patient Education Patient Instructions Indication:Laceration of skin of eyebrow Start:08-Dec-2021 Instruction Type:Provider Instructions for Treatment How to Access Health Informa tion Online using Patient Portal and [employer] Apps Indication:Laceration of skin of eyebrow Start:08-Dec-2021 Instruction Type:Patient Education Patient Instructions Indication:DM (diabetes mellitus), type 2, uncontrolled Start:27-Nov-2021 Instruction Type:Provider Instructions for Treatment How to Access Health Informa tion Online using Patient Portal and [employer] Apps Indication:DM (diabetes mellitus), type 2, uncontrolled Start:27-Nov-2021 Instruction Type:Patient Education Patient Instructions Indication:Smoker Start:30-Oct-2021 Instruction Type:Provider Instructions for Treatment How to Access Health Informa tion Online using Patient Portal and [employer] Apps Indication:Smoker Start:30-Oct-2021 Instruction Type:Patient Education Patient Instructions Indication:Smoker Start:14-Oct-2021 Instruction Type:Provider Instructions for Treatment How to Access Health Informa tion Online using Patient Portal and [employer] Apps Indication:Smoker Start:14-Oct-2021 Instruction Type:Patient Education Patient Instructions Indication:Smoker Start:05-Oct-2021 Instruction Type:Provider Instructions for Treatment How to Access Health Informa tion Online using Patient Portal and [employer] Apps Indication:Smoker Start:05-Oct-2021 Instruction Type:Patient Education Patient Instructions Indication:DM (diabetes mellitus), type 2, uncontrolled Start:30-Sep-2021 Instruction Type:Provider Instructions for Treatment How to Access Health Informa tion Online using Patient Portal and [employer] Apps Indication:Smoker Start:30-Sep-2021 Instruction Type:Patient Education Patient Instructions Indication:Smoker Start:19-Aug-2021 Instruction Type:Provider Instructions for Treatment How to Access Health Informa tion Online using Patient Portal and [employer] Apps Indication:Smoker Start:19-Aug-2021 Instruction Type:Patient Education Patient Instructions Indication:Smoker Start:22-Jul-2021 Instruction Type:Provider Instructions for Treatment How to Access Health Informa tion Online using Patient Portal and [employer] Apps Indication:Smoker Start:22-Jul-2021 Instruction Type:Patient Education Patient Instructions Indication:Smoker Start:15-Jul-2021 Instruction Type:Provider Instructions for Treatment How to Access Health Informa tion Online using Patient Portal and [employer] Apps Indication:Smoker Start:15-Jul-2021 Instruction Type:Patient Education Patient Instructions Indication:Smoker Start:10-Jul-2021 Instruction Type:Provider Instructions for Treatment How to Access Health Informa tion Online using Patient Portal and [employer] Apps Indication:Smoker Start:10-Jul-2021 Instruction Type:Patient Education Patient Instructions Indication:Smoker Start:27-May-2021 Instruction Type:Provider Instructions for Treatment How to Access Health Informa tion Online using Patient Portal and [employer] Apps Indication:Smoker Start:27-May-2021 Instruction Type:Patient Education [facility]; [facility] Work Phone: Instructions* Name Dates Details Patient Instructions Indication:BMI 24.0-24.9, adult Start:03-Jun-2022 Instruction Type:Provider Instructions for Treatment How to Access Health Informa tion Online using Patient Portal and [employer] Apps Indication:BMI 24.0-24.9, adult Start:03-Jun-2022 Instruction Type:Patient Education Patient Instructions Indication:Non-smoker Start:01-Mar-2022 Instruction Type:Provider Instructions for Treatment How to Access Health Informa tion Online using Patient Portal and [employer] Apps Indication:Non-smoker Start:01-Mar-2022 Instruction Type:Patient Education Patient Instructions Indication:Non-smoker Start:11-Feb-2022 Instruction Type:Provider Instructions for Treatment How to Access Health Informa tion Online using Patient Portal and [employer] Apps Indication:Non-smoker Start:11-Feb-2022 Instruction Type:Patient Education How to Access Health Informa tion Online using Patient Portal and [employer] Apps Indication:Non-smoker Start:11-Feb-2022 Instruction Type:Patient Education Patient Instructions Indication:BMI 27.0-27.9,adult Start:20-Jan-2022 Instruction Type:Provider Instructions for Treatment How to Access Health Informa tion Online using Patient Portal and [employer] Apps Indication:BMI 27.0-27.9,adult Start:20-Jan-2022 Instruction Type:Patient Education Patient Instructions Indication:Smoker Start:21-Dec-2021 Instruction Type:Provider Instructions for Treatment How to Access Health Informa tion Online using Patient Portal and [employer] Apps Indication:Smoker Start:21-Dec-2021 Instruction Type:Patient Education Patient Instructions Indication:Laceration of skin of eyebrow Start:08-Dec-2021 Instruction Type:Provider Instructions for Treatment How to Access Health Informa tion Online using Patient Portal and [employer] Apps Indication:Laceration of skin of eyebrow Start:08-Dec-2021 Instruction Type:Patient Education Patient Instructions Indication:DM (diabetes mellitus), type 2, uncontrolled Start:27-Nov-2021 Instruction Type:Provider Instructions for Treatment How to Access Health Informa tion Online using Patient Portal and [employer] Apps Indication:DM (diabetes mellitus), type 2, uncontrolled Start:27-Nov-2021 Instruction Type:Patient Education Patient Instructions Indication:Smoker Start:30-Oct-2021 Instruction Type:Provider Instructions for Treatment How to Access Health Informa tion Online using Patient Portal and [employer] Apps Indication:Smoker Start:30-Oct-2021 Instruction Type:Patient Education Patient Instructions Indication:Smoker Start:14-Oct-2021 Instruction Type:Provider Instructions for Treatment How to Access Health Informa tion Online using Patient Portal and [employer] Apps Indication:Smoker Start:14-Oct-2021 Instruction Type:Patient Education Patient Instructions Indication:Smoker Start:05-Oct-2021 Instruction Type:Provider Instructions for Treatment How to Access Health Informa tion Online using Patient Portal and [employer] Apps Indication:Smoker Start:05-Oct-2021 Instruction Type:Patient Education Patient Instructions Indication:DM (diabetes mellitus), type 2, uncontrolled Start:30-Sep-2021 Instruction Type:Provider Instructions for Treatment How to Access Health Informa tion Online using Patient Portal and [employer] Apps Indication:Smoker Start:30-Sep-2021 Instruction Type:Patient Education Patient Instructions Indication:Smoker Start:19-Aug-2021 Instruction Type:Provider Instructions for Treatment How to Access Health Informa tion Online using Patient Portal and [employer] Apps Indication:Smoker Start:19-Aug-2021 Instruction Type:Patient Education Patient Instructions Indication:Smoker Start:22-Jul-2021 Instruction Type:Provider Instructions for Treatment How to Access Health Informa tion Online using Patient Portal and [employer] Apps Indication:Smoker Start:22-Jul-2021 Instruction Type:Patient Education Patient Instructions Indication:Smoker Start:15-Jul-2021 Instruction Type:Provider Instructions for Treatment How to Access Health Informa tion Online using Patient Portal and [employer] Apps Indication:Smoker Start:15-Jul-2021 Instruction Type:Patient Education Patient Instructions Indication:Smoker Start:10-Jul-2021 Instruction Type:Provider Instructions for Treatment How to Access Health Informa tion Online using Patient Portal and [employer] Apps Indication:Smoker Start:10-Jul-2021 Instruction Type:Patient Education Patient Instructions Indication:Smoker Start:27-May-2021 Instruction Type:Provider Instructions for Treatment How to Access Health Informa tion Online using Patient Portal and [employer] Apps Indication:Smoker Start:27-May-2021 Instruction Type:Patient Education [facility]; [facility] Work Phone: Instructions* Name Dates Details Patient Instructions Indication:BMI 24.0-24.9, adult Start:03-Jun-2022 Instruction Type:Provider Instructions for Treatment How to Access Health Informa tion Online using Patient Portal and [employer] Apps Indication:BMI 24.0-24.9, adult Start:03-Jun-2022 Instruction Type:Patient Education Patient Instructions Indication:Non-smoker Start:01-Mar-2022 Instruction Type:Provider Instructions for Treatment How to Access Health Informa tion Online using Patient Portal and [employer] Apps Indication:Non-smoker Start:01-Mar-2022 Instruction Type:Patient Education Patient Instructions Indication:Non-smoker Start:11-Feb-2022 Instruction Type:Provider Instructions for Treatment How to Access Health Informa tion Online using Patient Portal and [employer] Apps Indication:Non-smoker Start:11-Feb-2022 Instruction Type:Patient Education How to Access Health Informa tion Online using Patient Portal and [employer] Apps Indication:Non-smoker Start:11-Feb-2022 Instruction Type:Patient Education Patient Instructions Indication:BMI 27.0-27.9,adult Start:20-Jan-2022 Instruction Type:Provider Instructions for Treatment How to Access Health Informa tion Online using Patient Portal and [employer] Apps Indication:BMI 27.0-27.9,adult Start:20-Jan-2022 Instruction Type:Patient Education Patient Instructions Indication:Smoker Start:21-Dec-2021 Instruction Type:Provider Instructions for Treatment How to Access Health Informa tion Online using Patient Portal and [employer] Apps Indication:Smoker Start:21-Dec-2021 Instruction Type:Patient Education Patient Instructions Indication:Laceration of skin of eyebrow Start:08-Dec-2021 Instruction Type:Provider Instructions for Treatment How to Access Health Informa tion Online using Patient Portal and [employer] Apps Indication:Laceration of skin of eyebrow Start:08-Dec-2021 Instruction Type:Patient Education Patient Instructions Indication:DM (diabetes mellitus), type 2, uncontrolled Start:27-Nov-2021 Instruction Type:Provider Instructions for Treatment How to Access Health Informa tion Online using Patient Portal and [employer] Apps Indication:DM (diabetes mellitus), type 2, uncontrolled Start:27-Nov-2021 Instruction Type:Patient Education Patient Instructions Indication:Smoker Start:30-Oct-2021 Instruction Type:Provider Instructions for Treatment How to Access Health Informa tion Online using Patient Portal and [employer] Apps Indication:Smoker Start:30-Oct-2021 Instruction Type:Patient Education Patient Instructions Indication:Smoker Start:14-Oct-2021 Instruction Type:Provider Instructions for Treatment How to Access Health Informa tion Online using Patient Portal and [employer] Apps Indication:Smoker Start:14-Oct-2021 Instruction Type:Patient Education Patient Instructions Indication:Smoker Start:05-Oct-2021 Instruction Type:Provider Instructions for Treatment How to Access Health Informa tion Online using Patient Portal and [employer] Apps Indication:Smoker Start:05-Oct-2021 Instruction Type:Patient Education Patient Instructions Indication:DM (diabetes mellitus), type 2, uncontrolled Start:30-Sep-2021 Instruction Type:Provider Instructions for Treatment How to Access Health Informa tion Online using Patient Portal and [employer] Apps Indication:Smoker Start:30-Sep-2021 Instruction Type:Patient Education Patient Instructions Indication:Smoker Start:19-Aug-2021 Instruction Type:Provider Instructions for Treatment How to Access Health Informa tion Online using Patient Portal and [employer] Apps Indication:Smoker Start:19-Aug-2021 Instruction Type:Patient Education Patient Instructions Indication:Smoker Start:22-Jul-2021 Instruction Type:Provider Instructions for Treatment How to Access Health Informa tion Online using Patient Portal and [employer] Apps Indication:Smoker Start:22-Jul-2021 Instruction Type:Patient Education Patient Instructions Indication:Smoker Start:15-Jul-2021 Instruction Type:Provider Instructions for Treatment How to Access Health Informa tion Online using Patient Portal and [employer] Apps Indication:Smoker Start:15-Jul-2021 Instruction Type:Patient Education Patient Instructions Indication:Smoker Start:10-Jul-2021 Instruction Type:Provider Instructions for Treatment How to Access Health Informa tion Online using Patient Portal and [employer] Apps Indication:Smoker Start:10-Jul-2021 Instruction Type:Patient Education Patient Instructions Indication:Smoker Start:27-May-2021 Instruction Type:Provider Instructions for Treatment How to Access Health Informa tion Online using Patient Portal and [employer] Apps Indication:Smoker Start:27-May-2021 Instruction Type:Patient Education [facility]; [facility] Work Phone: Instructions* Name Dates Details Patient Instructions Indication:BMI 24.0-24.9, adult Start:03-Jun-2022 Instruction Type:Provider Instructions for Treatment How to Access Health Informa tion Online using Patient Portal and [employer] Apps Indication:BMI 24.0-24.9, adult Start:03-Jun-2022 Instruction Type:Patient Education Patient Instructions Indication:Non-smoker Start:01-Mar-2022 Instruction Type:Provider Instructions for Treatment How to Access Health Informa tion Online using Patient Portal and [employer] Apps Indication:Non-smoker Start:01-Mar-2022 Instruction Type:Patient Education Patient Instructions Indication:Non-smoker Start:11-Feb-2022 Instruction Type:Provider Instructions for Treatment How to Access Health Informa tion Online using Patient Portal and [employer] Apps Indication:Non-smoker Start:11-Feb-2022 Instruction Type:Patient Education How to Access Health Informa tion Online using Patient Portal and [employer] Apps Indication:Non-smoker Start:11-Feb-2022 Instruction Type:Patient Education Patient Instructions Indication:BMI 27.0-27.9,adult Start:20-Jan-2022 Instruction Type:Provider Instructions for Treatment How to Access Health Informa tion Online using Patient Portal and [employer] Apps Indication:BMI 27.0-27.9,adult Start:20-Jan-2022 Instruction Type:Patient Education Patient Instructions Indication:Smoker Start:21-Dec-2021 Instruction Type:Provider Instructions for Treatment How to Access Health Informa tion Online using Patient Portal and [employer]rd [employer] Apps Indication:Smoker Start:21-Dec-2021 Instruction Type:Patient Education Patient Instructions Indication:Laceration of skin of eyebrow Start:08-Dec-2021 Instruction Type:Provider Instructions for Treatment How to Access Health Informa tion Online using Patient Portal and [employer]rd [employer] Apps Indication:Laceration of skin of eyebrow Start:08-Dec-2021 Instruction Type:Patient Education Patient Instructions Indication:DM (diabetes mellitus), type 2, uncontrolled Start:27-Nov-2021 Instruction Type:Provider Instructions for Treatment How to Access Health Informa tion Online using Patient Portal and [employer]rd [employer] Apps Indication:DM (diabetes mellitus), type 2, uncontrolled Start:27-Nov-2021 Instruction Type:Patient Education Patient Instructions Indication:Smoker Start:30-Oct-2021 Instruction Type:Provider Instructions for Treatment How to Access Health Informa tion Online using Patient Portal and [employer]rd [employer] Apps Indication:Smoker Start:30-Oct-2021 Instruction Type:Patient Education Patient Instructions Indication:Smoker Start:14-Oct-2021 Instruction Type:Provider Instructions for Treatment How to Access Health Informa tion Online using Patient Portal and [employer]rd [employer] Apps Indication:Smoker Start:14-Oct-2021 Instruction Type:Patient Education Patient Instructions Indication:Smoker Start:05-Oct-2021 Instruction Type:Provider Instructions for Treatment How to Access Health Informa tion Online using Patient Portal and [employer]rd [employer] Apps Indication:Smoker Start:05-Oct-2021 Instruction Type:Patient Education Patient Instructions Indication:DM (diabetes mellitus), type 2, uncontrolled Start:30-Sep-2021 Instruction Type:Provider Instructions for Treatment How to Access Health Informa tion Online using Patient Portal and [employer]rd [employer] Apps Indication:Smoker Start:30-Sep-2021 Instruction Type:Patient Education Patient Instructions Indication:Smoker Start:19-Aug-2021 Instruction Type:Provider Instructions for Treatment How to Access Health Informa tion Online using Patient Portal and [employer]rd [employer] Apps Indication:Smoker Start:19-Aug-2021 Instruction Type:Patient Education Patient Instructions Indication:Smoker Start:22-Jul-2021 Instruction Type:Provider Instructions for Treatment How to Access Health Informa tion Online using Patient Portal and [employer]rd [employer] Apps Indication:Smoker Start:22-Jul-2021 Instruction Type:Patient Education Patient Instructions Indication:Smoker Start:15-Jul-2021 Instruction Type:Provider Instructions for Treatment How to Access Health Informa tion Online using Patient Portal and [employer]rd [employer] Apps Indication:Smoker Start:15-Jul-2021 Instruction Type:Patient Education Patient Instructions Indication:Smoker Start:10-Jul-2021 Instruction Type:Provider Instructions for Treatment How to Access Health Informa tion Online using Patient Portal and [employer]rd [employer] Apps Indication:Smoker Start:10-Jul-2021 Instruction Type:Patient Education Patient Instructions Indication:Smoker Start:27-May-2021 Instruction Type:Provider Instructions for Treatment How to Access Health Informa tion Online using Patient Portal and [employer]rd [employer] Apps Indication:Smoker Start:27-May-2021 Instruction Type:Patient Education [facility]; [facility] Work Phone: Instructions* Name Dates Details Patient Instructions Indication:BMI 24.0-24.9, adult Start:03-Jun-2022 Instruction Type:Provider Instructions for Treatment How to Access Health Informa tion Online using Patient Portal and [employer]rd [employer] Apps Indication:BMI 24.0-24.9, adult Start:03-Jun-2022 Instruction Type:Patient Education Patient Instructions Indication:Non-smoker Start:01-Mar-2022 Instruction Type:Provider Instructions for Treatment How to Access Health Informa tion Online using Patient Portal and [employer]rd [employer] Apps Indication:Non-smoker Start:01-Mar-2022 Instruction Type:Patient Education Patient Instructions Indication:Non-smoker Start:11-Feb-2022 Instruction Type:Provider Instructions for Treatment How to Access Health Informa tion Online using Patient Portal and [employer]rd [employer] Apps Indication:Non-smoker Start:11-Feb-2022 Instruction Type:Patient Education How to Access Health Informa tion Online using Patient Portal and [employer]rd [employer] Apps Indication:Non-smoker Start:11-Feb-2022 Instruction Type:Patient Education Patient Instructions Indication:BMI 27.0-27.9,adult Start:20-Jan-2022 Instruction Type:Provider Instructions for Treatment How to Access Health Informa tion Online using Patient Portal and [employer]rd [employer] Apps Indication:BMI 27.0-27.9,adult Start:20-Jan-2022 Instruction Type:Patient Education Patient Instructions Indication:Smoker Start:21-Dec-2021 Instruction Type:Provider Instructions for Treatment How to Access Health Informa tion Online using Patient Portal and [employer]rd [employer] Apps Indication:Smoker Start:21-Dec-2021 Instruction Type:Patient Education Patient Instructions Indication:Laceration of skin of eyebrow Start:08-Dec-2021 Instruction Type:Provider Instructions for Treatment How to Access Health Informa tion Online using Patient Portal and [employer]rd [employer] Apps Indication:Laceration of skin of eyebrow Start:08-Dec-2021 Instruction Type:Patient Education Patient Instructions Indication:DM (diabetes mellitus), type 2, uncontrolled Start:27-Nov-2021 Instruction Type:Provider Instructions for Treatment How to Access Health Informa tion Online using Patient Portal and [employer]rd [employer] Apps Indication:DM (diabetes mellitus), type 2, uncontrolled Start:27-Nov-2021 Instruction Type:Patient Education Patient Instructions Indication:Smoker Start:30-Oct-2021 Instruction Type:Provider Instructions for Treatment How to Access Health Informa tion Online using Patient Portal and [employer]rd [employer] Apps Indication:Smoker Start:30-Oct-2021 Instruction Type:Patient Education Patient Instructions Indication:Smoker Start:14-Oct-2021 Instruction Type:Provider Instructions for Treatment How to Access Health Informa tion Online using Patient Portal and [employer] Apps Indication:Smoker Start:14-Oct-2021 Instruction Type:Patient Education Patient Instructions Indication:Smoker Start:05-Oct-2021 Instruction Type:Provider Instructions for Treatment How to Access Health Informa tion Online using Patient Portal and [employer] Apps Indication:Smoker Start:05-Oct-2021 Instruction Type:Patient Education Patient Instructions Indication:DM (diabetes mellitus), type 2, uncontrolled Start:30-Sep-2021 Instruction Type:Provider Instructions for Treatment How to Access Health Informa tion Online using Patient Portal and [employer]rd [employer] Apps Indication:Smoker Start:30-Sep-2021 Instruction Type:Patient Education Patient Instructions Indication:Smoker Start:19-Aug-2021 Instruction Type:Provider Instructions for Treatment How to Access Health Informa tion Online using Patient Portal and [employer] Apps Indication:Smoker Start:19-Aug-2021 Instruction Type:Patient Education Patient Instructions Indication:Smoker Start:22-Jul-2021 Instruction Type:Provider Instructions for Treatment How to Access Health Informa tion Online using Patient Portal and [employer] Apps Indication:Smoker Start:22-Jul-2021 Instruction Type:Patient Education Patient Instructions Indication:Smoker Start:15-Jul-2021 Instruction Type:Provider Instructions for Treatment How to Access Health Informa tion Online using Patient Portal and [employer] Apps Indication:Smoker Start:15-Jul-2021 Instruction Type:Patient Education Patient Instructions Indication:Smoker Start:10-Jul-2021 Instruction Type:Provider Instructions for Treatment How to Access Health Informa tion Online using Patient Portal and [employer] Apps Indication:Smoker Start:10-Jul-2021 Instruction Type:Patient Education Patient Instructions Indication:Smoker Start:27-May-2021 Instruction Type:Provider Instructions for Treatment How to Access Health Informa tion Online using Patient Portal and [employer]rd [employer] Apps Indication:Smoker Start:27-May-2021 Instruction Type:Patient Education [facility]; [facility] Work Phone: Instructions* Name Dates Details Patient Instructions Indication:BMI 24.0-24.9, adult Start:03-Jun-2022 Instruction Type:Provider Instructions for Treatment How to Access Health Informa tion Online using Patient Portal and [employer]rd [employer] Apps Indication:BMI 24.0-24.9, adult Start:03-Jun-2022 Instruction Type:Patient Education Patient Instructions Indication:Non-smoker Start:01-Mar-2022 Instruction Type:Provider Instructions for Treatment How to Access Health Informa tion Online using Patient Portal and [employer] Apps Indication:Non-smoker Start:01-Mar-2022 Instruction Type:Patient Education Patient Instructions Indication:Non-smoker Start:11-Feb-2022 Instruction Type:Provider Instructions for Treatment How to Access Health Informa tion Online using Patient Portal and [employer] Apps Indication:Non-smoker Start:11-Feb-2022 Instruction Type:Patient Education How to Access Health Informa tion Online using Patient Portal and [employer]rd [employer] Apps Indication:Non-smoker Start:11-Feb-2022 Instruction Type:Patient Education Patient Instructions Indication:BMI 27.0-27.9,adult Start:20-Jan-2022 Instruction Type:Provider Instructions for Treatment How to Access Health Informa tion Online using Patient Portal and [employer] Apps Indication:BMI 27.0-27.9,adult Start:20-Jan-2022 Instruction Type:Patient Education Patient Instructions Indication:Smoker Start:21-Dec-2021 Instruction Type:Provider Instructions for Treatment How to Access Health Informa tion Online using Patient Portal and [employer]rd [employer] Apps Indication:Smoker Start:21-Dec-2021 Instruction Type:Patient Education Patient Instructions Indication:Laceration of skin of eyebrow Start:08-Dec-2021 Instruction Type:Provider Instructions for Treatment How to Access Health Informa tion Online using Patient Portal and [employer]rd [employer] Apps Indication:Laceration of skin of eyebrow Start:08-Dec-2021 Instruction Type:Patient Education Patient Instructions Indication:DM (diabetes mellitus), type 2, uncontrolled Start:27-Nov-2021 Instruction Type:Provider Instructions for Treatment How to Access Health Informa tion Online using Patient Portal and [employer] Apps Indication:DM (diabetes mellitus), type 2, uncontrolled Start:27-Nov-2021 Instruction Type:Patient Education Patient Instructions Indication:Smoker Start:30-Oct-2021 Instruction Type:Provider Instructions for Treatment How to Access Health Informa tion Online using Patient Portal and [employer] Apps Indication:Smoker Start:30-Oct-2021 Instruction Type:Patient Education Patient Instructions Indication:Smoker Start:14-Oct-2021 Instruction Type:Provider Instructions for Treatment How to Access Health Informa tion Online using Patient Portal and [employer] Apps Indication:Smoker Start:14-Oct-2021 Instruction Type:Patient Education Patient Instructions Indication:Smoker Start:05-Oct-2021 Instruction Type:Provider Instructions for Treatment How to Access Health Informa tion Online using Patient Portal and [employer] Apps Indication:Smoker Start:05-Oct-2021 Instruction Type:Patient Education Patient Instructions Indication:DM (diabetes mellitus), type 2, uncontrolled Start:30-Sep-2021 Instruction Type:Provider Instructions for Treatment How to Access Health Informa tion Online using Patient Portal and [employer]rd [employer] Apps Indication:Smoker Start:30-Sep-2021 Instruction Type:Patient Education Patient Instructions Indication:Smoker Start:19-Aug-2021 Instruction Type:Provider Instructions for Treatment How to Access Health Informa tion Online using Patient Portal and [employer]rd [employer] Apps Indication:Smoker Start:19-Aug-2021 Instruction Type:Patient Education Patient Instructions Indication:Smoker Start:22-Jul-2021 Instruction Type:Provider Instructions for Treatment How to Access Health Informa tion Online using Patient Portal and [employer] Apps Indication:Smoker Start:22-Jul-2021 Instruction Type:Patient Education Patient Instructions Indication:Smoker Start:15-Jul-2021 Instruction Type:Provider Instructions for Treatment How to Access Health Informa tion Online using Patient Portal and [employer]rd [employer] Apps Indication:Smoker Start:15-Jul-2021 Instruction Type:Patient Education Patient Instructions Indication:Smoker Start:10-Jul-2021 Instruction Type:Provider Instructions for Treatment How to Access Health Informa tion Online using Patient Portal and [employer] Apps Indication:Smoker Start:10-Jul-2021 Instruction Type:Patient Education Patient Instructions Indication:Smoker Start:27-May-2021 Instruction Type:Provider Instructions for Treatment How to Access Health Informa tion Online using Patient Portal and [employer]rd [employer] Apps Indication:Smoker Start:27-May-2021 Instruction Type:Patient Education [facility]; [facility] Work Phone: Instructions* Name Dates Details Patient Instructions Indication:BMI 24.0-24.9, adult Start:03-Jun-2022 Instruction Type:Provider Instructions for Treatment How to Access Health Informa tion Online using Patient Portal and [employer]rd [employer] Apps Indication:BMI 24.0-24.9, adult Start:03-Jun-2022 Instruction Type:Patient Education Patient Instructions Indication:Non-smoker Start:01-Mar-2022 Instruction Type:Provider Instructions for Treatment How to Access Health Informa tion Online using Patient Portal and [employer]rd [employer] Apps Indication:Non-smoker Start:01-Mar-2022 Instruction Type:Patient Education Patient Instructions Indication:Non-smoker Start:11-Feb-2022 Instruction Type:Provider Instructions for Treatment How to Access Health Informa tion Online using Patient Portal and [employer]rd [employer] Apps Indication:Non-smoker Start:11-Feb-2022 Instruction Type:Patient Education How to Access Health Informa tion Online using Patient Portal and [employer]rd [employer] Apps Indication:Non-smoker Start:11-Feb-2022 Instruction Type:Patient Education Patient Instructions Indication:BMI 27.0-27.9,adult Start:20-Jan-2022 Instruction Type:Provider Instructions for Treatment How to Access Health Informa tion Online using Patient Portal and [employer]rd [employer] Apps Indication:BMI 27.0-27.9,adult Start:20-Jan-2022 Instruction Type:Patient Education Patient Instructions Indication:Smoker Start:21-Dec-2021 Instruction Type:Provider Instructions for Treatment How to Access Health Informa tion Online using Patient Portal and [employer]rd [employer] Apps Indication:Smoker Start:21-Dec-2021 Instruction Type:Patient Education Patient Instructions Indication:Laceration of skin of eyebrow Start:08-Dec-2021 Instruction Type:Provider Instructions for Treatment How to Access Health Informa tion Online using Patient Portal and [employer]rd [employer] Apps Indication:Laceration of skin of eyebrow Start:08-Dec-2021 Instruction Type:Patient Education Patient Instructions Indication:DM (diabetes mellitus), type 2, uncontrolled Start:27-Nov-2021 Instruction Type:Provider Instructions for Treatment How to Access Health Informa tion Online using Patient Portal and [employer]rd [employer] Apps Indication:DM (diabetes mellitus), type 2, uncontrolled Start:27-Nov-2021 Instruction Type:Patient Education Patient Instructions Indication:Smoker Start:30-Oct-2021 Instruction Type:Provider Instructions for Treatment How to Access Health Informa tion Online using Patient Portal and [employer]rd [employer] Apps Indication:Smoker Start:30-Oct-2021 Instruction Type:Patient Education Patient Instructions Indication:Smoker Start:14-Oct-2021 Instruction Type:Provider Instructions for Treatment How to Access Health Informa tion Online using Patient Portal and [employer]rd [employer] Apps Indication:Smoker Start:14-Oct-2021 Instruction Type:Patient Education Patient Instructions Indication:Smoker Start:05-Oct-2021 Instruction Type:Provider Instructions for Treatment How to Access Health Informa tion Online using Patient Portal and [employer]rd [employer] Apps Indication:Smoker Start:05-Oct-2021 Instruction Type:Patient Education Patient Instructions Indication:DM (diabetes mellitus), type 2, uncontrolled Start:30-Sep-2021 Instruction Type:Provider Instructions for Treatment How to Access Health Informa tion Online using Patient Portal and [employer]rd [employer] Apps Indication:Smoker Start:30-Sep-2021 Instruction Type:Patient Education Patient Instructions Indication:Smoker Start:19-Aug-2021 Instruction Type:Provider Instructions for Treatment How to Access Health Informa tion Online using Patient Portal and [employer]rd [employer] Apps Indication:Smoker Start:19-Aug-2021 Instruction Type:Patient Education Patient Instructions Indication:Smoker Start:22-Jul-2021 Instruction Type:Provider Instructions for Treatment How to Access Health Informa tion Online using Patient Portal and [employer]rd [employer] Apps Indication:Smoker Start:22-Jul-2021 Instruction Type:Patient Education Patient Instructions Indication:Smoker Start:15-Jul-2021 Instruction Type:Provider Instructions for Treatment How to Access Health Informa tion Online using Patient Portal and [employer]rd [employer] Apps Indication:Smoker Start:15-Jul-2021 Instruction Type:Patient Education Patient Instructions Indication:Smoker Start:10-Jul-2021 Instruction Type:Provider Instructions for Treatment How to Access Health Informa tion Online using Patient Portal and [employer]rd [employer] Apps Indication:Smoker Start:10-Jul-2021 Instruction Type:Patient Education Patient Instructions Indication:Smoker Start:27-May-2021 Instruction Type:Provider Instructions for Treatment How to Access Health Informa tion Online using Patient Portal and [employer]rd [employer] Apps Indication:Smoker Start:27-May-2021 Instruction Type:Patient Education [facility]; [facility] Work Phone: Instructions* Name Dates Details Patient Instructions Indication:BMI 24.0-24.9, adult Start:03-Jun-2022 Instruction Type:Provider Instructions for Treatment How to Access Health Informa tion Online using Patient Portal and [employer]rd [employer] Apps Indication:BMI 24.0-24.9, adult Start:03-Jun-2022 Instruction Type:Patient Education Patient Instructions Indication:Non-smoker Start:01-Mar-2022 Instruction Type:Provider Instructions for Treatment How to Access Health Informa tion Online using Patient Portal and [employer]rd [employer] Apps Indication:Non-smoker Start:01-Mar-2022 Instruction Type:Patient Education Patient Instructions Indication:Non-smoker Start:11-Feb-2022 Instruction Type:Provider Instructions for Treatment How to Access Health Informa tion Online using Patient Portal and [employer]rd [employer] Apps Indication:Non-smoker Start:11-Feb-2022 Instruction Type:Patient Education How to Access Health Informa tion Online using Patient Portal and [employer]rd [employer] Apps Indication:Non-smoker Start:11-Feb-2022 Instruction Type:Patient Education Patient Instructions Indication:BMI 27.0-27.9,adult Start:20-Jan-2022 Instruction Type:Provider Instructions for Treatment How to Access Health Informa tion Online using Patient Portal and [employer]rd [employer] Apps Indication:BMI 27.0-27.9,adult Start:20-Jan-2022 Instruction Type:Patient Education Patient Instructions Indication:Smoker Start:21-Dec-2021 Instruction Type:Provider Instructions for Treatment How to Access Health Informa tion Online using Patient Portal and [employer]rd [employer] Apps Indication:Smoker Start:21-Dec-2021 Instruction Type:Patient Education Patient Instructions Indication:Laceration of skin of eyebrow Start:08-Dec-2021 Instruction Type:Provider Instructions for Treatment How to Access Health Informa tion Online using Patient Portal and [employer]rd [employer] Apps Indication:Laceration of skin of eyebrow Start:08-Dec-2021 Instruction Type:Patient Education Patient Instructions Indication:DM (diabetes mellitus), type 2, uncontrolled Start:27-Nov-2021 Instruction Type:Provider Instructions for Treatment How to Access Health Informa tion Online using Patient Portal and [employer]rd [employer] Apps Indication:DM (diabetes mellitus), type 2, uncontrolled Start:27-Nov-2021 Instruction Type:Patient Education Patient Instructions Indication:Smoker Start:30-Oct-2021 Instruction Type:Provider Instructions for Treatment How to Access Health Informa tion Online using Patient Portal and [employer]rd [employer] Apps Indication:Smoker Start:30-Oct-2021 Instruction Type:Patient Education Patient Instructions Indication:Smoker Start:14-Oct-2021 Instruction Type:Provider Instructions for Treatment How to Access Health Informa tion Online using Patient Portal and [employer]rd [employer] Apps Indication:Smoker Start:14-Oct-2021 Instruction Type:Patient Education Patient Instructions Indication:Smoker Start:05-Oct-2021 Instruction Type:Provider Instructions for Treatment How to Access Health Informa tion Online using Patient Portal and [employer]rd [employer] Apps Indication:Smoker Start:05-Oct-2021 Instruction Type:Patient Education Patient Instructions Indication:DM (diabetes mellitus), type 2, uncontrolled Start:30-Sep-2021 Instruction Type:Provider Instructions for Treatment How to Access Health Informa tion Online using Patient Portal and [employer] Apps Indication:Smoker Start:30-Sep-2021 Instruction Type:Patient Education Patient Instructions Indication:Smoker Start:19-Aug-2021 Instruction Type:Provider Instructions for Treatment How to Access Health Informa tion Online using Patient Portal and [employer]rd [employer] Apps Indication:Smoker Start:19-Aug-2021 Instruction Type:Patient Education Patient Instructions Indication:Smoker Start:22-Jul-2021 Instruction Type:Provider Instructions for Treatment How to Access Health Informa tion Online using Patient Portal and [employer]rd [employer] Apps Indication:Smoker Start:22-Jul-2021 Instruction Type:Patient Education Patient Instructions Indication:Smoker Start:15-Jul-2021 Instruction Type:Provider Instructions for Treatment How to Access Health Informa tion Online using Patient Portal and [employer]rd [employer] Apps Indication:Smoker Start:15-Jul-2021 Instruction Type:Patient Education Patient Instructions Indication:Smoker Start:10-Jul-2021 Instruction Type:Provider Instructions for Treatment How to Access Health Informa tion Online using Patient Portal and [employer]rd [employer] Apps Indication:Smoker Start:10-Jul-2021 Instruction Type:Patient Education Patient Instructions Indication:Smoker Start:27-May-2021 Instruction Type:Provider Instructions for Treatment How to Access Health Informa tion Online using Patient Portal and [employer]rd [employer] Apps Indication:Smoker Start:27-May-2021 Instruction Type:Patient Education [facility]; [facility] Work Phone: Instructions* Name Dates Details Patient Instructions Indication:BMI 24.0-24.9, adult Start:03-Jun-2022 Instruction Type:Provider Instructions for Treatment How to Access Health Informa tion Online using Patient Portal and [employer]rd [employer] Apps Indication:BMI 24.0-24.9, adult Start:03-Jun-2022 Instruction Type:Patient Education Patient Instructions Indication:Non-smoker Start:01-Mar-2022 Instruction Type:Provider Instructions for Treatment How to Access Health Informa tion Online using Patient Portal and [employer] Apps Indication:Non-smoker Start:01-Mar-2022 Instruction Type:Patient Education Patient Instructions Indication:Non-smoker Start:11-Feb-2022 Instruction Type:Provider Instructions for Treatment How to Access Health Informa tion Online using Patient Portal and [employer]rd [employer] Apps Indication:Non-smoker Start:11-Feb-2022 Instruction Type:Patient Education How to Access Health Informa tion Online using Patient Portal and [employer]rd [employer] Apps Indication:Non-smoker Start:11-Feb-2022 Instruction Type:Patient Education Patient Instructions Indication:BMI 27.0-27.9,adult Start:20-Jan-2022 Instruction Type:Provider Instructions for Treatment How to Access Health Informa tion Online using Patient Portal and [employer]rd [employer] Apps Indication:BMI 27.0-27.9,adult Start:20-Jan-2022 Instruction Type:Patient Education Patient Instructions Indication:Smoker Start:21-Dec-2021 Instruction Type:Provider Instructions for Treatment How to Access Health Informa tion Online using Patient Portal and [employer]rd [employer] Apps Indication:Smoker Start:21-Dec-2021 Instruction Type:Patient Education Patient Instructions Indication:Laceration of skin of eyebrow Start:08-Dec-2021 Instruction Type:Provider Instructions for Treatment How to Access Health Informa tion Online using Patient Portal and [employer]rd [employer] Apps Indication:Laceration of skin of eyebrow Start:08-Dec-2021 Instruction Type:Patient Education Patient Instructions Indication:DM (diabetes mellitus), type 2, uncontrolled Start:27-Nov-2021 Instruction Type:Provider Instructions for Treatment How to Access Health Informa tion Online using Patient Portal and [employer] Apps Indication:DM (diabetes mellitus), type 2, uncontrolled Start:27-Nov-2021 Instruction Type:Patient Education Patient Instructions Indication:Smoker Start:30-Oct-2021 Instruction Type:Provider Instructions for Treatment How to Access Health Informa tion Online using Patient Portal and [employer]rd [employer] Apps Indication:Smoker Start:30-Oct-2021 Instruction Type:Patient Education Patient Instructions Indication:Smoker Start:14-Oct-2021 Instruction Type:Provider Instructions for Treatment How to Access Health Informa tion Online using Patient Portal and [employer] Apps Indication:Smoker Start:14-Oct-2021 Instruction Type:Patient Education Patient Instructions Indication:Smoker Start:05-Oct-2021 Instruction Type:Provider Instructions for Treatment How to Access Health Informa tion Online using Patient Portal and [employer] Apps Indication:Smoker Start:05-Oct-2021 Instruction Type:Patient Education Patient Instructions Indication:DM (diabetes mellitus), type 2, uncontrolled Start:30-Sep-2021 Instruction Type:Provider Instructions for Treatment How to Access Health Informa tion Online using Patient Portal and [employer] Apps Indication:Smoker Start:30-Sep-2021 Instruction Type:Patient Education Patient Instructions Indication:Smoker Start:19-Aug-2021 Instruction Type:Provider Instructions for Treatment How to Access Health Informa tion Online using Patient Portal and [employer] Apps Indication:Smoker Start:19-Aug-2021 Instruction Type:Patient Education Patient Instructions Indication:Smoker Start:22-Jul-2021 Instruction Type:Provider Instructions for Treatment How to Access Health Informa tion Online using Patient Portal and [employer]rd [employer] Apps Indication:Smoker Start:22-Jul-2021 Instruction Type:Patient Education Patient Instructions Indication:Smoker Start:15-Jul-2021 Instruction Type:Provider Instructions for Treatment How to Access Health Informa tion Online using Patient Portal and [employer] Apps Indication:Smoker Start:15-Jul-2021 Instruction Type:Patient Education Patient Instructions Indication:Smoker Start:10-Jul-2021 Instruction Type:Provider Instructions for Treatment How to Access Health Informa tion Online using Patient Portal and [employer]rd [employer] Apps Indication:Smoker Start:10-Jul-2021 Instruction Type:Patient Education Patient Instructions Indication:Smoker Start:27-May-2021 Instruction Type:Provider Instructions for Treatment How to Access Health Informa tion Online using Patient Portal and [employer]rd [employer] Apps Indication:Smoker Start:27-May-2021 Instruction Type:Patient Education [facility]; [facility] Work Phone: Instructions* Name Dates Details Patient Instructions Indication:BMI 24.0-24.9, adult Start:03-Jun-2022 Instruction Type:Provider Instructions for Treatment How to Access Health Informa tion Online using Patient Portal and [employer]rd [employer] Apps Indication:BMI 24.0-24.9, adult Start:03-Jun-2022 Instruction Type:Patient Education Patient Instructions Indication:Non-smoker Start:01-Mar-2022 Instruction Type:Provider Instructions for Treatment How to Access Health Informa tion Online using Patient Portal and [employer]rd [employer] Apps Indication:Non-smoker Start:01-Mar-2022 Instruction Type:Patient Education Patient Instructions Indication:Non-smoker Start:11-Feb-2022 Instruction Type:Provider Instructions for Treatment How to Access Health Informa tion Online using Patient Portal and [employer]rd [employer] Apps Indication:Non-smoker Start:11-Feb-2022 Instruction Type:Patient Education How to Access Health Informa tion Online using Patient Portal and [employer]rd [employer] Apps Indication:Non-smoker Start:11-Feb-2022 Instruction Type:Patient Education Patient Instructions Indication:BMI 27.0-27.9,adult Start:20-Jan-2022 Instruction Type:Provider Instructions for Treatment How to Access Health Informa tion Online using Patient Portal and [employer]rd [employer] Apps Indication:BMI 27.0-27.9,adult Start:20-Jan-2022 Instruction Type:Patient Education Patient Instructions Indication:Smoker Start:21-Dec-2021 Instruction Type:Provider Instructions for Treatment How to Access Health Informa tion Online using Patient Portal and [employer]rd [employer] Apps Indication:Smoker Start:21-Dec-2021 Instruction Type:Patient Education Patient Instructions Indication:Laceration of skin of eyebrow Start:08-Dec-2021 Instruction Type:Provider Instructions for Treatment How to Access Health Informa tion Online using Patient Portal and [employer]rd [employer] Apps Indication:Laceration of skin of eyebrow Start:08-Dec-2021 Instruction Type:Patient Education Patient Instructions Indication:DM (diabetes mellitus), type 2, uncontrolled Start:27-Nov-2021 Instruction Type:Provider Instructions for Treatment How to Access Health Informa tion Online using Patient Portal and [employer] Apps Indication:DM (diabetes mellitus), type 2, uncontrolled Start:27-Nov-2021 Instruction Type:Patient Education Patient Instructions Indication:Smoker Start:30-Oct-2021 Instruction Type:Provider Instructions for Treatment How to Access Health Informa tion Online using Patient Portal and [employer] Apps Indication:Smoker Start:30-Oct-2021 Instruction Type:Patient Education Patient Instructions Indication:Smoker Start:14-Oct-2021 Instruction Type:Provider Instructions for Treatment How to Access Health Informa tion Online using Patient Portal and [employer] Apps Indication:Smoker Start:14-Oct-2021 Instruction Type:Patient Education Patient Instructions Indication:Smoker Start:05-Oct-2021 Instruction Type:Provider Instructions for Treatment How to Access Health Informa tion Online using Patient Portal and [employer] Apps Indication:Smoker Start:05-Oct-2021 Instruction Type:Patient Education Patient Instructions Indication:DM (diabetes mellitus), type 2, uncontrolled Start:30-Sep-2021 Instruction Type:Provider Instructions for Treatment How to Access Health Informa tion Online using Patient Portal and [employer] Apps Indication:Smoker Start:30-Sep-2021 Instruction Type:Patient Education Patient Instructions Indication:Smoker Start:19-Aug-2021 Instruction Type:Provider Instructions for Treatment How to Access Health Informa tion Online using Patient Portal and [employer] Apps Indication:Smoker Start:19-Aug-2021 Instruction Type:Patient Education Patient Instructions Indication:Smoker Start:22-Jul-2021 Instruction Type:Provider Instructions for Treatment How to Access Health Informa tion Online using Patient Portal and [employer] Apps Indication:Smoker Start:22-Jul-2021 Instruction Type:Patient Education Patient Instructions Indication:Smoker Start:15-Jul-2021 Instruction Type:Provider Instructions for Treatment How to Access Health Informa tion Online using Patient Portal and [employer] Apps Indication:Smoker Start:15-Jul-2021 Instruction Type:Patient Education Patient Instructions Indication:Smoker Start:10-Jul-2021 Instruction Type:Provider Instructions for Treatment How to Access Health Informa tion Online using Patient Portal and [employer] Apps Indication:Smoker Start:10-Jul-2021 Instruction Type:Patient Education Patient Instructions Indication:Smoker Start:27-May-2021 Instruction Type:Provider Instructions for Treatment How to Access Health Informa tion Online using Patient Portal and [employer] Apps Indication:Smoker Start:27-May-2021 Instruction Type:Patient Education [facility]; [facility] Work Phone: Instructions* Name Dates Details Patient Instructions Indication:BMI 24.0-24.9, adult Start:03-Jun-2022 Instruction Type:Provider Instructions for Treatment How to Access Health Informa tion Online using Patient Portal and [employer] Apps Indication:BMI 24.0-24.9, adult Start:03-Jun-2022 Instruction Type:Patient Education Patient Instructions Indication:Non-smoker Start:01-Mar-2022 Instruction Type:Provider Instructions for Treatment How to Access Health Informa tion Online using Patient Portal and [employer] Apps Indication:Non-smoker Start:01-Mar-2022 Instruction Type:Patient Education Patient Instructions Indication:Non-smoker Start:11-Feb-2022 Instruction Type:Provider Instructions for Treatment How to Access Health Informa tion Online using Patient Portal and [employer] Apps Indication:Non-smoker Start:11-Feb-2022 Instruction Type:Patient Education How to Access Health Informa tion Online using Patient Portal and [employer] Apps Indication:Non-smoker Start:11-Feb-2022 Instruction Type:Patient Education Patient Instructions Indication:BMI 27.0-27.9,adult Start:20-Jan-2022 Instruction Type:Provider Instructions for Treatment How to Access Health Informa tion Online using Patient Portal and [employer] Apps Indication:BMI 27.0-27.9,adult Start:20-Jan-2022 Instruction Type:Patient Education Patient Instructions Indication:Smoker Start:21-Dec-2021 Instruction Type:Provider Instructions for Treatment How to Access Health Informa tion Online using Patient Portal and [employer] Apps Indication:Smoker Start:21-Dec-2021 Instruction Type:Patient Education Patient Instructions Indication:Laceration of skin of eyebrow Start:08-Dec-2021 Instruction Type:Provider Instructions for Treatment How to Access Health Informa tion Online using Patient Portal and [employer] Apps Indication:Laceration of skin of eyebrow Start:08-Dec-2021 Instruction Type:Patient Education Patient Instructions Indication:DM (diabetes mellitus), type 2, uncontrolled Start:27-Nov-2021 Instruction Type:Provider Instructions for Treatment How to Access Health Informa tion Online using Patient Portal and [employer] Apps Indication:DM (diabetes mellitus), type 2, uncontrolled Start:27-Nov-2021 Instruction Type:Patient Education Patient Instructions Indication:Smoker Start:30-Oct-2021 Instruction Type:Provider Instructions for Treatment How to Access Health Informa tion Online using Patient Portal and [employer] Apps Indication:Smoker Start:30-Oct-2021 Instruction Type:Patient Education Patient Instructions Indication:Smoker Start:14-Oct-2021 Instruction Type:Provider Instructions for Treatment How to Access Health Informa tion Online using Patient Portal and [employer] Apps Indication:Smoker Start:14-Oct-2021 Instruction Type:Patient Education Patient Instructions Indication:Smoker Start:05-Oct-2021 Instruction Type:Provider Instructions for Treatment How to Access Health Informa tion Online using Patient Portal and [employer] Apps Indication:Smoker Start:05-Oct-2021 Instruction Type:Patient Education Patient Instructions Indication:DM (diabetes mellitus), type 2, uncontrolled Start:30-Sep-2021 Instruction Type:Provider Instructions for Treatment How to Access Health Informa tion Online using Patient Portal and [employer] Apps Indication:Smoker Start:30-Sep-2021 Instruction Type:Patient Education Patient Instructions Indication:Smoker Start:19-Aug-2021 Instruction Type:Provider Instructions for Treatment How to Access Health Informa tion Online using Patient Portal and [employer] Apps Indication:Smoker Start:19-Aug-2021 Instruction Type:Patient Education Patient Instructions Indication:Smoker Start:22-Jul-2021 Instruction Type:Provider Instructions for Treatment How to Access Health Informa tion Online using Patient Portal and [employer] Apps Indication:Smoker Start:22-Jul-2021 Instruction Type:Patient Education Patient Instructions Indication:Smoker Start:15-Jul-2021 Instruction Type:Provider Instructions for Treatment How to Access Health Informa tion Online using Patient Portal and [employer] Apps Indication:Smoker Start:15-Jul-2021 Instruction Type:Patient Education Patient Instructions Indication:Smoker Start:10-Jul-2021 Instruction Type:Provider Instructions for Treatment How to Access Health Informa tion Online using Patient Portal and [employer] Apps Indication:Smoker Start:10-Jul-2021 Instruction Type:Patient Education Patient Instructions Indication:Smoker Start:27-May-2021 Instruction Type:Provider Instructions for Treatment How to Access Health Informa tion Online using Patient Portal and [employer] Apps Indication:Smoker Start:27-May-2021 Instruction Type:Patient Education [facility]; [facility] Work Phone: Instructions* Name Dates Details Patient Instructions Indication:BMI 24.0-24.9, adult Start:03-Jun-2022 Instruction Type:Provider Instructions for Treatment How to Access Health Informa tion Online using Patient Portal and [employer] Apps Indication:BMI 24.0-24.9, adult Start:03-Jun-2022 Instruction Type:Patient Education Patient Instructions Indication:Non-smoker Start:01-Mar-2022 Instruction Type:Provider Instructions for Treatment How to Access Health Informa tion Online using Patient Portal and [employer] Apps Indication:Non-smoker Start:01-Mar-2022 Instruction Type:Patient Education Patient Instructions Indication:Non-smoker Start:11-Feb-2022 Instruction Type:Provider Instructions for Treatment How to Access Health Informa tion Online using Patient Portal and [employer] Apps Indication:Non-smoker Start:11-Feb-2022 Instruction Type:Patient Education How to Access Health Informa tion Online using Patient Portal and [employer] Apps Indication:Non-smoker Start:11-Feb-2022 Instruction Type:Patient Education Patient Instructions Indication:BMI 27.0-27.9,adult Start:20-Jan-2022 Instruction Type:Provider Instructions for Treatment How to Access Health Informa tion Online using Patient Portal and [employer] Apps Indication:BMI 27.0-27.9,adult Start:20-Jan-2022 Instruction Type:Patient Education Patient Instructions Indication:Smoker Start:21-Dec-2021 Instruction Type:Provider Instructions for Treatment How to Access Health Informa tion Online using Patient Portal and [employer] Apps Indication:Smoker Start:21-Dec-2021 Instruction Type:Patient Education Patient Instructions Indication:Laceration of skin of eyebrow Start:08-Dec-2021 Instruction Type:Provider Instructions for Treatment How to Access Health Informa tion Online using Patient Portal and [employer] Apps Indication:Laceration of skin of eyebrow Start:08-Dec-2021 Instruction Type:Patient Education Patient Instructions Indication:DM (diabetes mellitus), type 2, uncontrolled Start:27-Nov-2021 Instruction Type:Provider Instructions for Treatment How to Access Health Informa tion Online using Patient Portal and [employer] Apps Indication:DM (diabetes mellitus), type 2, uncontrolled Start:27-Nov-2021 Instruction Type:Patient Education Patient Instructions Indication:Smoker Start:30-Oct-2021 Instruction Type:Provider Instructions for Treatment How to Access Health Informa tion Online using Patient Portal and [employer] Apps Indication:Smoker Start:30-Oct-2021 Instruction Type:Patient Education Patient Instructions Indication:Smoker Start:14-Oct-2021 Instruction Type:Provider Instructions for Treatment How to Access Health Informa tion Online using Patient Portal and [employer] Apps Indication:Smoker Start:14-Oct-2021 Instruction Type:Patient Education Patient Instructions Indication:Smoker Start:05-Oct-2021 Instruction Type:Provider Instructions for Treatment How to Access Health Informa tion Online using Patient Portal and [employer] Apps Indication:Smoker Start:05-Oct-2021 Instruction Type:Patient Education Patient Instructions Indication:DM (diabetes mellitus), type 2, uncontrolled Start:30-Sep-2021 Instruction Type:Provider Instructions for Treatment How to Access Health Informa tion Online using Patient Portal and [employer] Apps Indication:Smoker Start:30-Sep-2021 Instruction Type:Patient Education Patient Instructions Indication:Smoker Start:19-Aug-2021 Instruction Type:Provider Instructions for Treatment How to Access Health Informa tion Online using Patient Portal and [employer] Apps Indication:Smoker Start:19-Aug-2021 Instruction Type:Patient Education Patient Instructions Indication:Smoker Start:22-Jul-2021 Instruction Type:Provider Instructions for Treatment How to Access Health Informa tion Online using Patient Portal and [employer] Apps Indication:Smoker Start:22-Jul-2021 Instruction Type:Patient Education Patient Instructions Indication:Smoker Start:15-Jul-2021 Instruction Type:Provider Instructions for Treatment How to Access Health Informa tion Online using Patient Portal and [employer] Apps Indication:Smoker Start:15-Jul-2021 Instruction Type:Patient Education Patient Instructions Indication:Smoker Start:10-Jul-2021 Instruction Type:Provider Instructions for Treatment How to Access Health Informa tion Online using Patient Portal and [employer] Apps Indication:Smoker Start:10-Jul-2021 Instruction Type:Patient Education Patient Instructions Indication:Smoker Start:27-May-2021 Instruction Type:Provider Instructions for Treatment How to Access Health Informa tion Online using Patient Portal and [employer] Apps Indication:Smoker Start:27-May-2021 Instruction Type:Patient Education [facility]; [facility] Work Phone: Instructions* Name Dates Details Patient Instructions Indication:BMI 24.0-24.9, adult Start:03-Jun-2022 Instruction Type:Provider Instructions for Treatment How to Access Health Informa tion Online using Patient Portal and [employer]rd [employer] Apps Indication:BMI 24.0-24.9, adult Start:03-Jun-2022 Instruction Type:Patient Education Patient Instructions Indication:Non-smoker Start:01-Mar-2022 Instruction Type:Provider Instructions for Treatment How to Access Health Informa tion Online using Patient Portal and [employer] Apps Indication:Non-smoker Start:01-Mar-2022 Instruction Type:Patient Education Patient Instructions Indication:Non-smoker Start:11-Feb-2022 Instruction Type:Provider Instructions for Treatment How to Access Health Informa tion Online using Patient Portal and [employer] Apps Indication:Non-smoker Start:11-Feb-2022 Instruction Type:Patient Education How to Access Health Informa tion Online using Patient Portal and [employer] Apps Indication:Non-smoker Start:11-Feb-2022 Instruction Type:Patient Education Patient Instructions Indication:BMI 27.0-27.9,adult Start:20-Jan-2022 Instruction Type:Provider Instructions for Treatment How to Access Health Informa tion Online using Patient Portal and [employer] Apps Indication:BMI 27.0-27.9,adult Start:20-Jan-2022 Instruction Type:Patient Education Patient Instructions Indication:Smoker Start:21-Dec-2021 Instruction Type:Provider Instructions for Treatment How to Access Health Informa tion Online using Patient Portal and [employer] Apps Indication:Smoker Start:21-Dec-2021 Instruction Type:Patient Education Patient Instructions Indication:Laceration of skin of eyebrow Start:08-Dec-2021 Instruction Type:Provider Instructions for Treatment How to Access Health Informa tion Online using Patient Portal and [employer] Apps Indication:Laceration of skin of eyebrow Start:08-Dec-2021 Instruction Type:Patient Education Patient Instructions Indication:DM (diabetes mellitus), type 2, uncontrolled Start:27-Nov-2021 Instruction Type:Provider Instructions for Treatment How to Access Health Informa tion Online using Patient Portal and [employer] Apps Indication:DM (diabetes mellitus), type 2, uncontrolled Start:27-Nov-2021 Instruction Type:Patient Education Patient Instructions Indication:Smoker Start:30-Oct-2021 Instruction Type:Provider Instructions for Treatment How to Access Health Informa tion Online using Patient Portal and [employer] Apps Indication:Smoker Start:30-Oct-2021 Instruction Type:Patient Education Patient Instructions Indication:Smoker Start:14-Oct-2021 Instruction Type:Provider Instructions for Treatment How to Access Health Informa tion Online using Patient Portal and [employer] Apps Indication:Smoker Start:14-Oct-2021 Instruction Type:Patient Education Patient Instructions Indication:Smoker Start:05-Oct-2021 Instruction Type:Provider Instructions for Treatment How to Access Health Informa tion Online using Patient Portal and [employer] Apps Indication:Smoker Start:05-Oct-2021 Instruction Type:Patient Education Patient Instructions Indication:DM (diabetes mellitus), type 2, uncontrolled Start:30-Sep-2021 Instruction Type:Provider Instructions for Treatment How to Access Health Informa tion Online using Patient Portal and [employer] Apps Indication:Smoker Start:30-Sep-2021 Instruction Type:Patient Education Patient Instructions Indication:Smoker Start:19-Aug-2021 Instruction Type:Provider Instructions for Treatment How to Access Health Informa tion Online using Patient Portal and [employer] Apps Indication:Smoker Start:19-Aug-2021 Instruction Type:Patient Education Patient Instructions Indication:Smoker Start:22-Jul-2021 Instruction Type:Provider Instructions for Treatment How to Access Health Informa tion Online using Patient Portal and [employer] Apps Indication:Smoker Start:22-Jul-2021 Instruction Type:Patient Education Patient Instructions Indication:Smoker Start:15-Jul-2021 Instruction Type:Provider Instructions for Treatment How to Access Health Informa tion Online using Patient Portal and [employer] Apps Indication:Smoker Start:15-Jul-2021 Instruction Type:Patient Education Patient Instructions Indication:Smoker Start:10-Jul-2021 Instruction Type:Provider Instructions for Treatment How to Access Health Informa tion Online using Patient Portal and [employer] Apps Indication:Smoker Start:10-Jul-2021 Instruction Type:Patient Education Patient Instructions Indication:Smoker Start:27-May-2021 Instruction Type:Provider Instructions for Treatment How to Access Health Informa tion Online using Patient Portal and [employer] Apps Indication:Smoker Start:27-May-2021 Instruction Type:Patient Education [facility]; [facility] Work Phone: Instructions* Name Dates Details Patient Instructions Indication:BMI 24.0-24.9, adult Start:03-Jun-2022 Instruction Type:Provider Instructions for Treatment How to Access Health Informa tion Online using Patient Portal and [employer] Apps Indication:BMI 24.0-24.9, adult Start:03-Jun-2022 Instruction Type:Patient Education Patient Instructions Indication:Non-smoker Start:01-Mar-2022 Instruction Type:Provider Instructions for Treatment How to Access Health Informa tion Online using Patient Portal and [employer]rd [employer] Apps Indication:Non-smoker Start:01-Mar-2022 Instruction Type:Patient Education Patient Instructions Indication:Non-smoker Start:11-Feb-2022 Instruction Type:Provider Instructions for Treatment How to Access Health Informa tion Online using Patient Portal and [employer]rd [employer] Apps Indication:Non-smoker Start:11-Feb-2022 Instruction Type:Patient Education How to Access Health Informa tion Online using Patient Portal and [employer]rd [employer] Apps Indication:Non-smoker Start:11-Feb-2022 Instruction Type:Patient Education Patient Instructions Indication:BMI 27.0-27.9,adult Start:20-Jan-2022 Instruction Type:Provider Instructions for Treatment How to Access Health Informa tion Online using Patient Portal and [employer]rd [employer] Apps Indication:BMI 27.0-27.9,adult Start:20-Jan-2022 Instruction Type:Patient Education Patient Instructions Indication:Smoker Start:21-Dec-2021 Instruction Type:Provider Instructions for Treatment How to Access Health Informa tion Online using Patient Portal and [employer]rd [employer] Apps Indication:Smoker Start:21-Dec-2021 Instruction Type:Patient Education Patient Instructions Indication:Laceration of skin of eyebrow Start:08-Dec-2021 Instruction Type:Provider Instructions for Treatment How to Access Health Informa tion Online using Patient Portal and [employer]rd [employer] Apps Indication:Laceration of skin of eyebrow Start:08-Dec-2021 Instruction Type:Patient Education Patient Instructions Indication:DM (diabetes mellitus), type 2, uncontrolled Start:27-Nov-2021 Instruction Type:Provider Instructions for Treatment How to Access Health Informa tion Online using Patient Portal and [employer]rd [employer] Apps Indication:DM (diabetes mellitus), type 2, uncontrolled Start:27-Nov-2021 Instruction Type:Patient Education Patient Instructions Indication:Smoker Start:30-Oct-2021 Instruction Type:Provider Instructions for Treatment How to Access Health Informa tion Online using Patient Portal and [employer]rd [employer] Apps Indication:Smoker Start:30-Oct-2021 Instruction Type:Patient Education Patient Instructions Indication:Smoker Start:14-Oct-2021 Instruction Type:Provider Instructions for Treatment How to Access Health Informa tion Online using Patient Portal and [employer]rd [employer] Apps Indication:Smoker Start:14-Oct-2021 Instruction Type:Patient Education Patient Instructions Indication:Smoker Start:05-Oct-2021 Instruction Type:Provider Instructions for Treatment How to Access Health Informa tion Online using Patient Portal and [employer]rd [employer] Apps Indication:Smoker Start:05-Oct-2021 Instruction Type:Patient Education Patient Instructions Indication:DM (diabetes mellitus), type 2, uncontrolled Start:30-Sep-2021 Instruction Type:Provider Instructions for Treatment How to Access Health Informa tion Online using Patient Portal and [employer]rd [employer] Apps Indication:Smoker Start:30-Sep-2021 Instruction Type:Patient Education Patient Instructions Indication:Smoker Start:19-Aug-2021 Instruction Type:Provider Instructions for Treatment How to Access Health Informa tion Online using Patient Portal and [employer]rd [employer] Apps Indication:Smoker Start:19-Aug-2021 Instruction Type:Patient Education Patient Instructions Indication:Smoker Start:22-Jul-2021 Instruction Type:Provider Instructions for Treatment How to Access Health Informa tion Online using Patient Portal and [employer]rd [employer] Apps Indication:Smoker Start:22-Jul-2021 Instruction Type:Patient Education Patient Instructions Indication:Smoker Start:15-Jul-2021 Instruction Type:Provider Instructions for Treatment How to Access Health Informa tion Online using Patient Portal and [employer]rd [employer] Apps Indication:Smoker Start:15-Jul-2021 Instruction Type:Patient Education Patient Instructions Indication:Smoker Start:10-Jul-2021 Instruction Type:Provider Instructions for Treatment How to Access Health Informa tion Online using Patient Portal and [employer]rd [employer] Apps Indication:Smoker Start:10-Jul-2021 Instruction Type:Patient Education Patient Instructions Indication:Smoker Start:27-May-2021 Instruction Type:Provider Instructions for Treatment How to Access Health Informa tion Online using Patient Portal and [employer]rd [employer] Apps Indication:Smoker Start:27-May-2021 Instruction Type:Patient Education [facility]; [facility] Work Phone: Instructions* Name Dates Details Patient Instructions Indication:BMI 24.0-24.9, adult Start:28-Oct-2022 Instruction Type:Provider Instructions for Treatment How to Access Health Informa tion Online using Patient Portal and [employer]rd [employer] Apps Indication:BMI 24.0-24.9, adult Start:28-Oct-2022 Instruction Type:Patient Education Patient Instructions Indication:BMI 24.0-24.9, adult Start:03-Jun-2022 Instruction Type:Provider Instructions for Treatment How to Access Health Informa tion Online using Patient Portal and [employer]rd [employer] Apps Indication:BMI 24.0-24.9, adult Start:03-Jun-2022 Instruction Type:Patient Education Patient Instructions Indication:Non-smoker Start:01-Mar-2022 Instruction Type:Provider Instructions for Treatment How to Access Health Informa tion Online using Patient Portal and [employer]rd [employer] Apps Indication:Non-smoker Start:01-Mar-2022 Instruction Type:Patient Education Patient Instructions Indication:Non-smoker Start:11-Feb-2022 Instruction Type:Provider Instructions for Treatment How to Access Health Informa tion Online using Patient Portal and [employer]rd [employer] Apps Indication:Non-smoker Start:11-Feb-2022 Instruction Type:Patient Education How to Access Health Informa tion Online using Patient Portal and [employer]rd [employer] Apps Indication:Non-smoker Start:11-Feb-2022 Instruction Type:Patient Education Patient Instructions Indication:BMI 27.0-27.9,adult Start:20-Jan-2022 Instruction Type:Provider Instructions for Treatment How to Access Health Informa tion Online using Patient Portal and [employer]rd [employer] Apps Indication:BMI 27.0-27.9,adult Start:20-Jan-2022 Instruction Type:Patient Education Patient Instructions Indication:Smoker Start:21-Dec-2021 Instruction Type:Provider Instructions for Treatment How to Access Health Informa tion Online using Patient Portal and [employer]rd [employer] Apps Indication:Smoker Start:21-Dec-2021 Instruction Type:Patient Education Patient Instructions Indication:Laceration of skin of eyebrow Start:08-Dec-2021 Instruction Type:Provider Instructions for Treatment How to Access Health Informa tion Online using Patient Portal and [employer]rd [employer] Apps Indication:Laceration of skin of eyebrow Start:08-Dec-2021 Instruction Type:Patient Education Patient Instructions Indication:DM (diabetes mellitus), type 2, uncontrolled Start:27-Nov-2021 Instruction Type:Provider Instructions for Treatment How to Access Health Informa tion Online using Patient Portal and [employer]rd [employer] Apps Indication:DM (diabetes mellitus), type 2, uncontrolled Start:27-Nov-2021 Instruction Type:Patient Education Patient Instructions Indication:Smoker Start:30-Oct-2021 Instruction Type:Provider Instructions for Treatment How to Access Health Informa tion Online using Patient Portal and [employer] Apps Indication:Smoker Start:30-Oct-2021 Instruction Type:Patient Education Patient Instructions Indication:Smoker Start:14-Oct-2021 Instruction Type:Provider Instructions for Treatment How to Access Health Informa tion Online using Patient Portal and [employer] Apps Indication:Smoker Start:14-Oct-2021 Instruction Type:Patient Education Patient Instructions Indication:Smoker Start:05-Oct-2021 Instruction Type:Provider Instructions for Treatment How to Access Health Informa tion Online using Patient Portal and [employer]rd [employer] Apps Indication:Smoker Start:05-Oct-2021 Instruction Type:Patient Education Patient Instructions Indication:DM (diabetes mellitus), type 2, uncontrolled Start:30-Sep-2021 Instruction Type:Provider Instructions for Treatment How to Access Health Informa tion Online using Patient Portal and [employer]rd [employer] Apps Indication:Smoker Start:30-Sep-2021 Instruction Type:Patient Education Patient Instructions Indication:Smoker Start:19-Aug-2021 Instruction Type:Provider Instructions for Treatment How to Access Health Informa tion Online using Patient Portal and [employer] Apps Indication:Smoker Start:19-Aug-2021 Instruction Type:Patient Education Patient Instructions Indication:Smoker Start:22-Jul-2021 Instruction Type:Provider Instructions for Treatment How to Access Health Informa tion Online using Patient Portal and [employer]rd [employer] Apps Indication:Smoker Start:22-Jul-2021 Instruction Type:Patient Education Patient Instructions Indication:Smoker Start:15-Jul-2021 Instruction Type:Provider Instructions for Treatment How to Access Health Informa tion Online using Patient Portal and [employer]rd [employer] Apps Indication:Smoker Start:15-Jul-2021 Instruction Type:Patient Education Patient Instructions Indication:Smoker Start:10-Jul-2021 Instruction Type:Provider Instructions for Treatment How to Access Health Informa tion Online using Patient Portal and [employer]rd [employer] Apps Indication:Smoker Start:10-Jul-2021 Instruction Type:Patient Education Patient Instructions Indication:Smoker Start:27-May-2021 Instruction Type:Provider Instructions for Treatment How to Access Health Informa tion Online using Patient Portal and [employer]rd [employer] Apps Indication:Smoker Start:27-May-2021 Instruction Type:Patient Education [facility]; [facility] Work Phone: Instructions* Name Dates Details Patient Instructions Indication:Non-smoker Start:26-Nov-2022 Instruction Type:Provider Instructions for Treatment How to Access Health Informa tion Online using Patient Portal and [employer]rd [employer] Apps Indication:Non-smoker Start:26-Nov-2022 Instruction Type:Patient Education Patient Instructions Indication:BMI 24.0-24.9, adult Start:28-Oct-2022 Instruction Type:Provider Instructions for Treatment How to Access Health Informa tion Online using Patient Portal and [employer] Apps Indication:BMI 24.0-24.9, adult Start:28-Oct-2022 Instruction Type:Patient Education Patient Instructions Indication:BMI 24.0-24.9, adult Start:03-Jun-2022 Instruction Type:Provider Instructions for Treatment How to Access Health Informa tion Online using Patient Portal and [employer]rd [employer] Apps Indication:BMI 24.0-24.9, adult Start:03-Jun-2022 Instruction Type:Patient Education Patient Instructions Indication:Non-smoker Start:01-Mar-2022 Instruction Type:Provider Instructions for Treatment How to Access Health Informa tion Online using Patient Portal and [employer]rd [employer] Apps Indication:Non-smoker Start:01-Mar-2022 Instruction Type:Patient Education Patient Instructions Indication:Non-smoker Start:11-Feb-2022 Instruction Type:Provider Instructions for Treatment How to Access Health Informa tion Online using Patient Portal and [employer]rd [employer] Apps Indication:Non-smoker Start:11-Feb-2022 Instruction Type:Patient Education How to Access Health Informa tion Online using Patient Portal and [employer]rd [employer] Apps Indication:Non-smoker Start:11-Feb-2022 Instruction Type:Patient Education Patient Instructions Indication:BMI 27.0-27.9,adult Start:20-Jan-2022 Instruction Type:Provider Instructions for Treatment How to Access Health Informa tion Online using Patient Portal and [employer]rd [employer] Apps Indication:BMI 27.0-27.9,adult Start:20-Jan-2022 Instruction Type:Patient Education Patient Instructions Indication:Smoker Start:21-Dec-2021 Instruction Type:Provider Instructions for Treatment How to Access Health Informa tion Online using Patient Portal and [employer]rd [employer] Apps Indication:Smoker Start:21-Dec-2021 Instruction Type:Patient Education Patient Instructions Indication:Laceration of skin of eyebrow Start:08-Dec-2021 Instruction Type:Provider Instructions for Treatment How to Access Health Informa tion Online using Patient Portal and [employer]rd [employer] Apps Indication:Laceration of skin of eyebrow Start:08-Dec-2021 Instruction Type:Patient Education Patient Instructions Indication:DM (diabetes mellitus), type 2, uncontrolled Start:27-Nov-2021 Instruction Type:Provider Instructions for Treatment How to Access Health Informa tion Online using Patient Portal and [employer]rd [employer] Apps Indication:DM (diabetes mellitus), type 2, uncontrolled Start:27-Nov-2021 Instruction Type:Patient Education Patient Instructions Indication:Smoker Start:30-Oct-2021 Instruction Type:Provider Instructions for Treatment How to Access Health Informa tion Online using Patient Portal and [employer]rd [employer] Apps Indication:Smoker Start:30-Oct-2021 Instruction Type:Patient Education Patient Instructions Indication:Smoker Start:14-Oct-2021 Instruction Type:Provider Instructions for Treatment How to Access Health Informa tion Online using Patient Portal and [employer]rd [employer] Apps Indication:Smoker Start:14-Oct-2021 Instruction Type:Patient Education Patient Instructions Indication:Smoker Start:05-Oct-2021 Instruction Type:Provider Instructions for Treatment How to Access Health Informa tion Online using Patient Portal and [employer]rd [employer] Apps Indication:Smoker Start:05-Oct-2021 Instruction Type:Patient Education Patient Instructions Indication:DM (diabetes mellitus), type 2, uncontrolled Start:30-Sep-2021 Instruction Type:Provider Instructions for Treatment How to Access Health Informa tion Online using Patient Portal and [employer]rd [employer] Apps Indication:Smoker Start:30-Sep-2021 Instruction Type:Patient Education Patient Instructions Indication:Smoker Start:19-Aug-2021 Instruction Type:Provider Instructions for Treatment How to Access Health Informa tion Online using Patient Portal and [employer]rd [employer] Apps Indication:Smoker Start:19-Aug-2021 Instruction Type:Patient Education Patient Instructions Indication:Smoker Start:22-Jul-2021 Instruction Type:Provider Instructions for Treatment How to Access Health Informa tion Online using Patient Portal and [employer]rd [employer] Apps Indication:Smoker Start:22-Jul-2021 Instruction Type:Patient Education Patient Instructions Indication:Smoker Start:15-Jul-2021 Instruction Type:Provider Instructions for Treatment How to Access Health Informa tion Online using Patient Portal and [employer]rd [employer] Apps Indication:Smoker Start:15-Jul-2021 Instruction Type:Patient Education Patient Instructions Indication:Smoker Start:10-Jul-2021 Instruction Type:Provider Instructions for Treatment How to Access Health Informa tion Online using Patient Portal and [employer]rd [employer] Apps Indication:Smoker Start:10-Jul-2021 Instruction Type:Patient Education Patient Instructions Indication:Smoker Start:27-May-2021 Instruction Type:Provider Instructions for Treatment How to Access Health Informa tion Online using Patient Portal and [employer]rd [employer] Apps Indication:Smoker Start:27-May-2021 Instruction Type:Patient Education [facility]; [facility] Work Phone: Instructions* Name Dates Details Patient Instructions Indication:BMI 24.0-24.9, adult Start:02-Dec-2022 Instruction Type:Provider Instructions for Treatment How to Access Health Informa tion Online using Patient Portal and [employer]rd [employer] Apps Indication:BMI 24.0-24.9, adult Start:02-Dec-2022 Instruction Type:Patient Education Patient Instructions Indication:Non-smoker Start:26-Nov-2022 Instruction Type:Provider Instructions for Treatment How to Access Health Informa tion Online using Patient Portal and [employer]rd [employer] Apps Indication:Non-smoker Start:26-Nov-2022 Instruction Type:Patient Education Patient Instructions Indication:BMI 24.0-24.9, adult Start:28-Oct-2022 Instruction Type:Provider Instructions for Treatment How to Access Health Informa tion Online using Patient Portal and [employer]rd [employer] Apps Indication:BMI 24.0-24.9, adult Start:28-Oct-2022 Instruction Type:Patient Education Patient Instructions Indication:BMI 24.0-24.9, adult Start:03-Jun-2022 Instruction Type:Provider Instructions for Treatment How to Access Health Informa tion Online using Patient Portal and [employer]rd [employer] Apps Indication:BMI 24.0-24.9, adult Start:03-Jun-2022 Instruction Type:Patient Education Patient Instructions Indication:Non-smoker Start:01-Mar-2022 Instruction Type:Provider Instructions for Treatment How to Access Health Informa tion Online using Patient Portal and [employer]rd [employer] Apps Indication:Non-smoker Start:01-Mar-2022 Instruction Type:Patient Education Patient Instructions Indication:Non-smoker Start:11-Feb-2022 Instruction Type:Provider Instructions for Treatment How to Access Health Informa tion Online using Patient Portal and [employer]rd [employer] Apps Indication:Non-smoker Start:11-Feb-2022 Instruction Type:Patient Education How to Access Health Informa tion Online using Patient Portal and [employer]rd [employer] Apps Indication:Non-smoker Start:11-Feb-2022 Instruction Type:Patient Education Patient Instructions Indication:BMI 27.0-27.9,adult Start:20-Jan-2022 Instruction Type:Provider Instructions for Treatment How to Access Health Informa tion Online using Patient Portal and [employer]rd [employer] Apps Indication:BMI 27.0-27.9,adult Start:20-Jan-2022 Instruction Type:Patient Education Patient Instructions Indication:Smoker Start:21-Dec-2021 Instruction Type:Provider Instructions for Treatment How to Access Health Informa tion Online using Patient Portal and [employer]rd [employer] Apps Indication:Smoker Start:21-Dec-2021 Instruction Type:Patient Education Patient Instructions Indication:Laceration of skin of eyebrow Start:08-Dec-2021 Instruction Type:Provider Instructions for Treatment How to Access Health Informa tion Online using Patient Portal and [employer]rd [employer] Apps Indication:Laceration of skin of eyebrow Start:08-Dec-2021 Instruction Type:Patient Education Patient Instructions Indication:DM (diabetes mellitus), type 2, uncontrolled Start:27-Nov-2021 Instruction Type:Provider Instructions for Treatment How to Access Health Informa tion Online using Patient Portal and [employer]rd [employer] Apps Indication:DM (diabetes mellitus), type 2, uncontrolled Start:27-Nov-2021 Instruction Type:Patient Education Patient Instructions Indication:Smoker Start:30-Oct-2021 Instruction Type:Provider Instructions for Treatment How to Access Health Informa tion Online using Patient Portal and [employer]rd [employer] Apps Indication:Smoker Start:30-Oct-2021 Instruction Type:Patient Education Patient Instructions Indication:Smoker Start:14-Oct-2021 Instruction Type:Provider Instructions for Treatment How to Access Health Informa tion Online using Patient Portal and [employer]rd [employer] Apps Indication:Smoker Start:14-Oct-2021 Instruction Type:Patient Education Patient Instructions Indication:Smoker Start:05-Oct-2021 Instruction Type:Provider Instructions for Treatment How to Access Health Informa tion Online using Patient Portal and [employer]rd [employer] Apps Indication:Smoker Start:05-Oct-2021 Instruction Type:Patient Education Patient Instructions Indication:DM (diabetes mellitus), type 2, uncontrolled Start:30-Sep-2021 Instruction Type:Provider Instructions for Treatment How to Access Health Informa tion Online using Patient Portal and [employer]rd [employer] Apps Indication:Smoker Start:30-Sep-2021 Instruction Type:Patient Education Patient Instructions Indication:Smoker Start:19-Aug-2021 Instruction Type:Provider Instructions for Treatment How to Access Health Informa tion Online using Patient Portal and [employer]rd [employer] Apps Indication:Smoker Start:19-Aug-2021 Instruction Type:Patient Education Patient Instructions Indication:Smoker Start:22-Jul-2021 Instruction Type:Provider Instructions for Treatment How to Access Health Informa tion Online using Patient Portal and [employer]rd [employer] Apps Indication:Smoker Start:22-Jul-2021 Instruction Type:Patient Education Patient Instructions Indication:Smoker Start:15-Jul-2021 Instruction Type:Provider Instructions for Treatment How to Access Health Informa tion Online using Patient Portal and [employer]rd [employer] Apps Indication:Smoker Start:15-Jul-2021 Instruction Type:Patient Education Patient Instructions Indication:Smoker Start:10-Jul-2021 Instruction Type:Provider Instructions for Treatment How to Access Health Informa tion Online using Patient Portal and [employer]rd [employer] Apps Indication:Smoker Start:10-Jul-2021 Instruction Type:Patient Education Patient Instructions Indication:Smoker Start:27-May-2021 Instruction Type:Provider Instructions for Treatment How to Access Health Informa tion Online using Patient Portal and [employer]rd [employer] Apps Indication:Smoker Start:27-May-2021 Instruction Type:Patient Education [facility]; [facility] Work Phone: Instructions* Name Dates Details Patient Instructions Indication:BMI 24.0-24.9, adult Start:02-Dec-2022 Instruction Type:Provider Instructions for Treatment How to Access Health Informa tion Online using Patient Portal and [employer]rd [employer] Apps Indication:BMI 24.0-24.9, adult Start:02-Dec-2022 Instruction Type:Patient Education Patient Instructions Indication:Non-smoker Start:26-Nov-2022 Instruction Type:Provider Instructions for Treatment How to Access Health Informa tion Online using Patient Portal and [employer]rd [employer] Apps Indication:Non-smoker Start:26-Nov-2022 Instruction Type:Patient Education Patient Instructions Indication:BMI 24.0-24.9, adult Start:28-Oct-2022 Instruction Type:Provider Instructions for Treatment How to Access Health Informa tion Online using Patient Portal and [employer]rd [employer] Apps Indication:BMI 24.0-24.9, adult Start:28-Oct-2022 Instruction Type:Patient Education Patient Instructions Indication:BMI 24.0-24.9, adult Start:03-Jun-2022 Instruction Type:Provider Instructions for Treatment How to Access Health Informa tion Online using Patient Portal and [employer]rd [employer] Apps Indication:BMI 24.0-24.9, adult Start:03-Jun-2022 Instruction Type:Patient Education Patient Instructions Indication:Non-smoker Start:01-Mar-2022 Instruction Type:Provider Instructions for Treatment How to Access Health Informa tion Online using Patient Portal and [employer]rd [employer] Apps Indication:Non-smoker Start:01-Mar-2022 Instruction Type:Patient Education Patient Instructions Indication:Non-smoker Start:11-Feb-2022 Instruction Type:Provider Instructions for Treatment How to Access Health Informa tion Online using Patient Portal and [employer]rd [employer] Apps Indication:Non-smoker Start:11-Feb-2022 Instruction Type:Patient Education How to Access Health Informa tion Online using Patient Portal and [employer]rd [employer] Apps Indication:Non-smoker Start:11-Feb-2022 Instruction Type:Patient Education Patient Instructions Indication:BMI 27.0-27.9,adult Start:20-Jan-2022 Instruction Type:Provider Instructions for Treatment How to Access Health Informa tion Online using Patient Portal and [employer]rd [employer] Apps Indication:BMI 27.0-27.9,adult Start:20-Jan-2022 Instruction Type:Patient Education Patient Instructions Indication:Smoker Start:21-Dec-2021 Instruction Type:Provider Instructions for Treatment How to Access Health Informa tion Online using Patient Portal and [employer]rd [employer] Apps Indication:Smoker Start:21-Dec-2021 Instruction Type:Patient Education Patient Instructions Indication:Laceration of skin of eyebrow Start:08-Dec-2021 Instruction Type:Provider Instructions for Treatment How to Access Health Informa tion Online using Patient Portal and [employer]rd [employer] Apps Indication:Laceration of skin of eyebrow Start:08-Dec-2021 Instruction Type:Patient Education Patient Instructions Indication:DM (diabetes mellitus), type 2, uncontrolled Start:27-Nov-2021 Instruction Type:Provider Instructions for Treatment How to Access Health Informa tion Online using Patient Portal and [employer] Apps Indication:DM (diabetes mellitus), type 2, uncontrolled Start:27-Nov-2021 Instruction Type:Patient Education Patient Instructions Indication:Smoker Start:30-Oct-2021 Instruction Type:Provider Instructions for Treatment How to Access Health Informa tion Online using Patient Portal and [employer] Apps Indication:Smoker Start:30-Oct-2021 Instruction Type:Patient Education Patient Instructions Indication:Smoker Start:14-Oct-2021 Instruction Type:Provider Instructions for Treatment How to Access Health Informa tion Online using Patient Portal and [employer]rd [employer] Apps Indication:Smoker Start:14-Oct-2021 Instruction Type:Patient Education Patient Instructions Indication:Smoker Start:05-Oct-2021 Instruction Type:Provider Instructions for Treatment How to Access Health Informa tion Online using Patient Portal and [employer]rd [employer] Apps Indication:Smoker Start:05-Oct-2021 Instruction Type:Patient Education Patient Instructions Indication:DM (diabetes mellitus), type 2, uncontrolled Start:30-Sep-2021 Instruction Type:Provider Instructions for Treatment How to Access Health Informa tion Online using Patient Portal and [employer]rd [employer] Apps Indication:Smoker Start:30-Sep-2021 Instruction Type:Patient Education Patient Instructions Indication:Smoker Start:19-Aug-2021 Instruction Type:Provider Instructions for Treatment How to Access Health Informa tion Online using Patient Portal and [employer]rd [employer] Apps Indication:Smoker Start:19-Aug-2021 Instruction Type:Patient Education Patient Instructions Indication:Smoker Start:22-Jul-2021 Instruction Type:Provider Instructions for Treatment How to Access Health Informa tion Online using Patient Portal and [employer]rd [employer] Apps Indication:Smoker Start:22-Jul-2021 Instruction Type:Patient Education Patient Instructions Indication:Smoker Start:15-Jul-2021 Instruction Type:Provider Instructions for Treatment How to Access Health Informa tion Online using Patient Portal and [employer]rd [employer] Apps Indication:Smoker Start:15-Jul-2021 Instruction Type:Patient Education Patient Instructions Indication:Smoker Start:10-Jul-2021 Instruction Type:Provider Instructions for Treatment How to Access Health Informa tion Online using Patient Portal and [employer]rd [employer] Apps Indication:Smoker Start:10-Jul-2021 Instruction Type:Patient Education Patient Instructions Indication:Smoker Start:27-May-2021 Instruction Type:Provider Instructions for Treatment How to Access Health Informa tion Online using Patient Portal and [employer]rd [employer] Apps Indication:Smoker Start:27-May-2021 Instruction Type:Patient Education [facility]; [facility] Work Phone: Instructions* Name Dates Details Patient Instructions Indication:BMI 24.0-24.9, adult Start:02-Dec-2022 Instruction Type:Provider Instructions for Treatment How to Access Health Informa tion Online using Patient Portal and [employer]rd [employer] Apps Indication:BMI 24.0-24.9, adult Start:02-Dec-2022 Instruction Type:Patient Education Patient Instructions Indication:Non-smoker Start:26-Nov-2022 Instruction Type:Provider Instructions for Treatment How to Access Health Informa tion Online using Patient Portal and [employer]rd [employer] Apps Indication:Non-smoker Start:26-Nov-2022 Instruction Type:Patient Education Patient Instructions Indication:BMI 24.0-24.9, adult Start:28-Oct-2022 Instruction Type:Provider Instructions for Treatment How to Access Health Informa tion Online using Patient Portal and [employer]rd [employer] Apps Indication:BMI 24.0-24.9, adult Start:28-Oct-2022 Instruction Type:Patient Education Patient Instructions Indication:BMI 24.0-24.9, adult Start:03-Jun-2022 Instruction Type:Provider Instructions for Treatment How to Access Health Informa tion Online using Patient Portal and [employer]rd [employer] Apps Indication:BMI 24.0-24.9, adult Start:03-Jun-2022 Instruction Type:Patient Education Patient Instructions Indication:Non-smoker Start:01-Mar-2022 Instruction Type:Provider Instructions for Treatment How to Access Health Informa tion Online using Patient Portal and [employer] Apps Indication:Non-smoker Start:01-Mar-2022 Instruction Type:Patient Education Patient Instructions Indication:Non-smoker Start:11-Feb-2022 Instruction Type:Provider Instructions for Treatment How to Access Health Informa tion Online using Patient Portal and [employer] Apps Indication:Non-smoker Start:11-Feb-2022 Instruction Type:Patient Education How to Access Health Informa tion Online using Patient Portal and [employer] Apps Indication:Non-smoker Start:11-Feb-2022 Instruction Type:Patient Education Patient Instructions Indication:BMI 27.0-27.9,adult Start:20-Jan-2022 Instruction Type:Provider Instructions for Treatment How to Access Health Informa tion Online using Patient Portal and [employer] Apps Indication:BMI 27.0-27.9,adult Start:20-Jan-2022 Instruction Type:Patient Education Patient Instructions Indication:Smoker Start:21-Dec-2021 Instruction Type:Provider Instructions for Treatment How to Access Health Informa tion Online using Patient Portal and [employer] Apps Indication:Smoker Start:21-Dec-2021 Instruction Type:Patient Education Patient Instructions Indication:Laceration of skin of eyebrow Start:08-Dec-2021 Instruction Type:Provider Instructions for Treatment How to Access Health Informa tion Online using Patient Portal and [employer] Apps Indication:Laceration of skin of eyebrow Start:08-Dec-2021 Instruction Type:Patient Education Patient Instructions Indication:DM (diabetes mellitus), type 2, uncontrolled Start:27-Nov-2021 Instruction Type:Provider Instructions for Treatment How to Access Health Informa tion Online using Patient Portal and [employer] Apps Indication:DM (diabetes mellitus), type 2, uncontrolled Start:27-Nov-2021 Instruction Type:Patient Education Patient Instructions Indication:Smoker Start:30-Oct-2021 Instruction Type:Provider Instructions for Treatment How to Access Health Informa tion Online using Patient Portal and [employer] Apps Indication:Smoker Start:30-Oct-2021 Instruction Type:Patient Education Patient Instructions Indication:Smoker Start:14-Oct-2021 Instruction Type:Provider Instructions for Treatment How to Access Health Informa tion Online using Patient Portal and [employer] Apps Indication:Smoker Start:14-Oct-2021 Instruction Type:Patient Education Patient Instructions Indication:Smoker Start:05-Oct-2021 Instruction Type:Provider Instructions for Treatment How to Access Health Informa tion Online using Patient Portal and [employer] Apps Indication:Smoker Start:05-Oct-2021 Instruction Type:Patient Education Patient Instructions Indication:DM (diabetes mellitus), type 2, uncontrolled Start:30-Sep-2021 Instruction Type:Provider Instructions for Treatment How to Access Health Informa tion Online using Patient Portal and [employer] Apps Indication:Smoker Start:30-Sep-2021 Instruction Type:Patient Education Patient Instructions Indication:Smoker Start:19-Aug-2021 Instruction Type:Provider Instructions for Treatment How to Access Health Informa tion Online using Patient Portal and [employer] Apps Indication:Smoker Start:19-Aug-2021 Instruction Type:Patient Education Patient Instructions Indication:Smoker Start:22-Jul-2021 Instruction Type:Provider Instructions for Treatment How to Access Health Informa tion Online using Patient Portal and [employer] Apps Indication:Smoker Start:22-Jul-2021 Instruction Type:Patient Education Patient Instructions Indication:Smoker Start:15-Jul-2021 Instruction Type:Provider Instructions for Treatment How to Access Health Informa tion Online using Patient Portal and [employer] Apps Indication:Smoker Start:15-Jul-2021 Instruction Type:Patient Education Patient Instructions Indication:Smoker Start:10-Jul-2021 Instruction Type:Provider Instructions for Treatment How to Access Health Informa tion Online using Patient Portal and [employer] Apps Indication:Smoker Start:10-Jul-2021 Instruction Type:Patient Education Patient Instructions Indication:Smoker Start:27-May-2021 Instruction Type:Provider Instructions for Treatment How to Access Health Informa tion Online using Patient Portal and [employer] Apps Indication:Smoker Start:27-May-2021 Instruction Type:Patient Education [facility]; [facility] Work Phone: Instructions* Name Dates Details Patient Instructions Indication:BMI 24.0-24.9, adult Start:02-Dec-2022 Instruction Type:Provider Instructions for Treatment How to Access Health Informa tion Online using Patient Portal and [employer]rd [employer] Apps Indication:BMI 24.0-24.9, adult Start:02-Dec-2022 Instruction Type:Patient Education Patient Instructions Indication:Non-smoker Start:26-Nov-2022 Instruction Type:Provider Instructions for Treatment How to Access Health Informa tion Online using Patient Portal and [employer] Apps Indication:Non-smoker Start:26-Nov-2022 Instruction Type:Patient Education Patient Instructions Indication:BMI 24.0-24.9, adult Start:28-Oct-2022 Instruction Type:Provider Instructions for Treatment How to Access Health Informa tion Online using Patient Portal and [employer] Apps Indication:BMI 24.0-24.9, adult Start:28-Oct-2022 Instruction Type:Patient Education Patient Instructions Indication:BMI 24.0-24.9, adult Start:03-Jun-2022 Instruction Type:Provider Instructions for Treatment How to Access Health Informa tion Online using Patient Portal and [employer]rd [employer] Apps Indication:BMI 24.0-24.9, adult Start:03-Jun-2022 Instruction Type:Patient Education Patient Instructions Indication:Non-smoker Start:01-Mar-2022 Instruction Type:Provider Instructions for Treatment How to Access Health Informa tion Online using Patient Portal and [employer] Apps Indication:Non-smoker Start:01-Mar-2022 Instruction Type:Patient Education Patient Instructions Indication:Non-smoker Start:11-Feb-2022 Instruction Type:Provider Instructions for Treatment How to Access Health Informa tion Online using Patient Portal and [employer] Apps Indication:Non-smoker Start:11-Feb-2022 Instruction Type:Patient Education How to Access Health Informa tion Online using Patient Portal and [employer] Apps Indication:Non-smoker Start:11-Feb-2022 Instruction Type:Patient Education Patient Instructions Indication:BMI 27.0-27.9,adult Start:20-Jan-2022 Instruction Type:Provider Instructions for Treatment How to Access Health Informa tion Online using Patient Portal and [employer]rd [employer] Apps Indication:BMI 27.0-27.9,adult Start:20-Jan-2022 Instruction Type:Patient Education Patient Instructions Indication:Smoker Start:21-Dec-2021 Instruction Type:Provider Instructions for Treatment How to Access Health Informa tion Online using Patient Portal and [employer] Apps Indication:Smoker Start:21-Dec-2021 Instruction Type:Patient Education Patient Instructions Indication:Laceration of skin of eyebrow Start:08-Dec-2021 Instruction Type:Provider Instructions for Treatment How to Access Health Informa tion Online using Patient Portal and [employer]rd [employer] Apps Indication:Laceration of skin of eyebrow Start:08-Dec-2021 Instruction Type:Patient Education Patient Instructions Indication:DM (diabetes mellitus), type 2, uncontrolled Start:27-Nov-2021 Instruction Type:Provider Instructions for Treatment How to Access Health Informa tion Online using Patient Portal and [employer]rd [employer] Apps Indication:DM (diabetes mellitus), type 2, uncontrolled Start:27-Nov-2021 Instruction Type:Patient Education Patient Instructions Indication:Smoker Start:30-Oct-2021 Instruction Type:Provider Instructions for Treatment How to Access Health Informa tion Online using Patient Portal and [employer]rd [employer] Apps Indication:Smoker Start:30-Oct-2021 Instruction Type:Patient Education Patient Instructions Indication:Smoker Start:14-Oct-2021 Instruction Type:Provider Instructions for Treatment How to Access Health Informa tion Online using Patient Portal and [employer] Apps Indication:Smoker Start:14-Oct-2021 Instruction Type:Patient Education Patient Instructions Indication:Smoker Start:05-Oct-2021 Instruction Type:Provider Instructions for Treatment How to Access Health Informa tion Online using Patient Portal and [employer]rd [employer] Apps Indication:Smoker Start:05-Oct-2021 Instruction Type:Patient Education Patient Instructions Indication:DM (diabetes mellitus), type 2, uncontrolled Start:30-Sep-2021 Instruction Type:Provider Instructions for Treatment How to Access Health Informa tion Online using Patient Portal and [employer]rd [employer] Apps Indication:Smoker Start:30-Sep-2021 Instruction Type:Patient Education Patient Instructions Indication:Smoker Start:19-Aug-2021 Instruction Type:Provider Instructions for Treatment How to Access Health Informa tion Online using Patient Portal and [employer]rd [employer] Apps Indication:Smoker Start:19-Aug-2021 Instruction Type:Patient Education Patient Instructions Indication:Smoker Start:22-Jul-2021 Instruction Type:Provider Instructions for Treatment How to Access Health Informa tion Online using Patient Portal and [employer] Apps Indication:Smoker Start:22-Jul-2021 Instruction Type:Patient Education Patient Instructions Indication:Smoker Start:15-Jul-2021 Instruction Type:Provider Instructions for Treatment How to Access Health Informa tion Online using Patient Portal and [employer] Apps Indication:Smoker Start:15-Jul-2021 Instruction Type:Patient Education Patient Instructions Indication:Smoker Start:10-Jul-2021 Instruction Type:Provider Instructions for Treatment How to Access Health Informa tion Online using Patient Portal and [employer]rd [employer] Apps Indication:Smoker Start:10-Jul-2021 Instruction Type:Patient Education Patient Instructions Indication:Smoker Start:27-May-2021 Instruction Type:Provider Instructions for Treatment How to Access Health Informa tion Online using Patient Portal and [employer]rd [employer] Apps Indication:Smoker Start:27-May-2021 Instruction Type:Patient Education [facility]; [facility] Work Phone: Instructions* Name Dates Details Patient Instructions Indication:BMI 25.0-25.9,adult Start:13-Jan-2023 Instruction Type:Provider Instructions for Treatment How to Access Health Informa tion Online using Patient Portal and [employer]rd [employer] Apps Indication:BMI 25.0-25.9,adult Start:13-Jan-2023 Instruction Type:Patient Education Patient Instructions Indication:BMI 24.0-24.9, adult Start:02-Dec-2022 Instruction Type:Provider Instructions for Treatment How to Access Health Informa tion Online using Patient Portal and [employer]rd [employer] Apps Indication:BMI 24.0-24.9, adult Start:02-Dec-2022 Instruction Type:Patient Education Patient Instructions Indication:Non-smoker Start:26-Nov-2022 Instruction Type:Provider Instructions for Treatment How to Access Health Informa tion Online using Patient Portal and [employer]rd [employer] Apps Indication:Non-smoker Start:26-Nov-2022 Instruction Type:Patient Education Patient Instructions Indication:BMI 24.0-24.9, adult Start:28-Oct-2022 Instruction Type:Provider Instructions for Treatment How to Access Health Informa tion Online using Patient Portal and [employer]rd [employer] Apps Indication:BMI 24.0-24.9, adult Start:28-Oct-2022 Instruction Type:Patient Education Patient Instructions Indication:BMI 24.0-24.9, adult Start:03-Jun-2022 Instruction Type:Provider Instructions for Treatment How to Access Health Informa tion Online using Patient Portal and [employer]rd [employer] Apps Indication:BMI 24.0-24.9, adult Start:03-Jun-2022 Instruction Type:Patient Education Patient Instructions Indication:Non-smoker Start:01-Mar-2022 Instruction Type:Provider Instructions for Treatment How to Access Health Informa tion Online using Patient Portal and [employer]rd [employer] Apps Indication:Non-smoker Start:01-Mar-2022 Instruction Type:Patient Education Patient Instructions Indication:Non-smoker Start:11-Feb-2022 Instruction Type:Provider Instructions for Treatment How to Access Health Informa tion Online using Patient Portal and [employer]rd [employer] Apps Indication:Non-smoker Start:11-Feb-2022 Instruction Type:Patient Education How to Access Health Informa tion Online using Patient Portal and [employer]rd [employer] Apps Indication:Non-smoker Start:11-Feb-2022 Instruction Type:Patient Education Patient Instructions Indication:BMI 27.0-27.9,adult Start:20-Jan-2022 Instruction Type:Provider Instructions for Treatment How to Access Health Informa tion Online using Patient Portal and [employer]rd [employer] Apps Indication:BMI 27.0-27.9,adult Start:20-Jan-2022 Instruction Type:Patient Education Patient Instructions Indication:Smoker Start:21-Dec-2021 Instruction Type:Provider Instructions for Treatment How to Access Health Informa tion Online using Patient Portal and [employer]rd [employer] Apps Indication:Smoker Start:21-Dec-2021 Instruction Type:Patient Education Patient Instructions Indication:Laceration of skin of eyebrow Start:08-Dec-2021 Instruction Type:Provider Instructions for Treatment How to Access Health Informa tion Online using Patient Portal and [employer]rd [employer] Apps Indication:Laceration of skin of eyebrow Start:08-Dec-2021 Instruction Type:Patient Education Patient Instructions Indication:DM (diabetes mellitus), type 2, uncontrolled Start:27-Nov-2021 Instruction Type:Provider Instructions for Treatment How to Access Health Informa tion Online using Patient Portal and [employer]rd [employer] Apps Indication:DM (diabetes mellitus), type 2, uncontrolled Start:27-Nov-2021 Instruction Type:Patient Education Patient Instructions Indication:Smoker Start:30-Oct-2021 Instruction Type:Provider Instructions for Treatment How to Access Health Informa tion Online using Patient Portal and [employer] Apps Indication:Smoker Start:30-Oct-2021 Instruction Type:Patient Education Patient Instructions Indication:Smoker Start:14-Oct-2021 Instruction Type:Provider Instructions for Treatment How to Access Health Informa tion Online using Patient Portal and [employer] Apps Indication:Smoker Start:14-Oct-2021 Instruction Type:Patient Education Patient Instructions Indication:Smoker Start:05-Oct-2021 Instruction Type:Provider Instructions for Treatment How to Access Health Informa tion Online using Patient Portal and [employer] Apps Indication:Smoker Start:05-Oct-2021 Instruction Type:Patient Education Patient Instructions Indication:DM (diabetes mellitus), type 2, uncontrolled Start:30-Sep-2021 Instruction Type:Provider Instructions for Treatment How to Access Health Informa tion Online using Patient Portal and [employer] Apps Indication:Smoker Start:30-Sep-2021 Instruction Type:Patient Education Patient Instructions Indication:Smoker Start:19-Aug-2021 Instruction Type:Provider Instructions for Treatment How to Access Health Informa tion Online using Patient Portal and [employer]rd [employer] Apps Indication:Smoker Start:19-Aug-2021 Instruction Type:Patient Education Patient Instructions Indication:Smoker Start:22-Jul-2021 Instruction Type:Provider Instructions for Treatment How to Access Health Informa tion Online using Patient Portal and [employer] Apps Indication:Smoker Start:22-Jul-2021 Instruction Type:Patient Education Patient Instructions Indication:Smoker Start:15-Jul-2021 Instruction Type:Provider Instructions for Treatment How to Access Health Informa tion Online using Patient Portal and [employer] Apps Indication:Smoker Start:15-Jul-2021 Instruction Type:Patient Education Patient Instructions Indication:Smoker Start:10-Jul-2021 Instruction Type:Provider Instructions for Treatment How to Access Health Informa tion Online using Patient Portal and [employer] Apps Indication:Smoker Start:10-Jul-2021 Instruction Type:Patient Education Patient Instructions Indication:Smoker Start:27-May-2021 Instruction Type:Provider Instructions for Treatment How to Access Health Informa tion Online using Patient Portal and [employer] Apps Indication:Smoker Start:27-May-2021 Instruction Type:Patient Education [facility]; [facility] Work Phone: Instructions* Name Dates Details Patient Instructions Indication:BMI 25.0-25.9,adult Start:13-Jan-2023 Instruction Type:Provider Instructions for Treatment How to Access Health Informa tion Online using Patient Portal and [employer] Apps Indication:BMI 25.0-25.9,adult Start:13-Jan-2023 Instruction Type:Patient Education Patient Instructions Indication:BMI 24.0-24.9, adult Start:02-Dec-2022 Instruction Type:Provider Instructions for Treatment How to Access Health Informa tion Online using Patient Portal and [employer] Apps Indication:BMI 24.0-24.9, adult Start:02-Dec-2022 Instruction Type:Patient Education Patient Instructions Indication:Non-smoker Start:26-Nov-2022 Instruction Type:Provider Instructions for Treatment How to Access Health Informa tion Online using Patient Portal and [employer] Apps Indication:Non-smoker Start:26-Nov-2022 Instruction Type:Patient Education Patient Instructions Indication:BMI 24.0-24.9, adult Start:28-Oct-2022 Instruction Type:Provider Instructions for Treatment How to Access Health Informa tion Online using Patient Portal and [employer] Apps Indication:BMI 24.0-24.9, adult Start:28-Oct-2022 Instruction Type:Patient Education Patient Instructions Indication:BMI 24.0-24.9, adult Start:03-Jun-2022 Instruction Type:Provider Instructions for Treatment How to Access Health Informa tion Online using Patient Portal and [employer] Apps Indication:BMI 24.0-24.9, adult Start:03-Jun-2022 Instruction Type:Patient Education Patient Instructions Indication:Non-smoker Start:01-Mar-2022 Instruction Type:Provider Instructions for Treatment How to Access Health Informa tion Online using Patient Portal and [employer] Apps Indication:Non-smoker Start:01-Mar-2022 Instruction Type:Patient Education Patient Instructions Indication:Non-smoker Start:11-Feb-2022 Instruction Type:Provider Instructions for Treatment How to Access Health Informa tion Online using Patient Portal and [employer] Apps Indication:Non-smoker Start:11-Feb-2022 Instruction Type:Patient Education How to Access Health Informa tion Online using Patient Portal and [employer] Apps Indication:Non-smoker Start:11-Feb-2022 Instruction Type:Patient Education Patient Instructions Indication:BMI 27.0-27.9,adult Start:20-Jan-2022 Instruction Type:Provider Instructions for Treatment How to Access Health Informa tion Online using Patient Portal and [employer] Apps Indication:BMI 27.0-27.9,adult Start:20-Jan-2022 Instruction Type:Patient Education Patient Instructions Indication:Smoker Start:21-Dec-2021 Instruction Type:Provider Instructions for Treatment How to Access Health Informa tion Online using Patient Portal and [employer] Apps Indication:Smoker Start:21-Dec-2021 Instruction Type:Patient Education Patient Instructions Indication:Laceration of skin of eyebrow Start:08-Dec-2021 Instruction Type:Provider Instructions for Treatment How to Access Health Informa tion Online using Patient Portal and [employer] Apps Indication:Laceration of skin of eyebrow Start:08-Dec-2021 Instruction Type:Patient Education Patient Instructions Indication:DM (diabetes mellitus), type 2, uncontrolled Start:27-Nov-2021 Instruction Type:Provider Instructions for Treatment How to Access Health Informa tion Online using Patient Portal and [employer] Apps Indication:DM (diabetes mellitus), type 2, uncontrolled Start:27-Nov-2021 Instruction Type:Patient Education Patient Instructions Indication:Smoker Start:30-Oct-2021 Instruction Type:Provider Instructions for Treatment How to Access Health Informa tion Online using Patient Portal and [employer]rd [employer] Apps Indication:Smoker Start:30-Oct-2021 Instruction Type:Patient Education Patient Instructions Indication:Smoker Start:14-Oct-2021 Instruction Type:Provider Instructions for Treatment How to Access Health Informa tion Online using Patient Portal and [employer]rd [employer] Apps Indication:Smoker Start:14-Oct-2021 Instruction Type:Patient Education Patient Instructions Indication:Smoker Start:05-Oct-2021 Instruction Type:Provider Instructions for Treatment How to Access Health Informa tion Online using Patient Portal and [employer]rd [employer] Apps Indication:Smoker Start:05-Oct-2021 Instruction Type:Patient Education Patient Instructions Indication:DM (diabetes mellitus), type 2, uncontrolled Start:30-Sep-2021 Instruction Type:Provider Instructions for Treatment How to Access Health Informa tion Online using Patient Portal and [employer]rd [employer] Apps Indication:Smoker Start:30-Sep-2021 Instruction Type:Patient Education Patient Instructions Indication:Smoker Start:19-Aug-2021 Instruction Type:Provider Instructions for Treatment How to Access Health Informa tion Online using Patient Portal and [employer]rd [employer] Apps Indication:Smoker Start:19-Aug-2021 Instruction Type:Patient Education Patient Instructions Indication:Smoker Start:22-Jul-2021 Instruction Type:Provider Instructions for Treatment How to Access Health Informa tion Online using Patient Portal and [employer]rd [employer] Apps Indication:Smoker Start:22-Jul-2021 Instruction Type:Patient Education Patient Instructions Indication:Smoker Start:15-Jul-2021 Instruction Type:Provider Instructions for Treatment How to Access Health Informa tion Online using Patient Portal and [employer]rd [employer] Apps Indication:Smoker Start:15-Jul-2021 Instruction Type:Patient Education Patient Instructions Indication:Smoker Start:10-Jul-2021 Instruction Type:Provider Instructions for Treatment How to Access Health Informa tion Online using Patient Portal and [employer]rd [employer] Apps Indication:Smoker Start:10-Jul-2021 Instruction Type:Patient Education Patient Instructions Indication:Smoker Start:27-May-2021 Instruction Type:Provider Instructions for Treatment How to Access Health Informa tion Online using Patient Portal and [employer]rd [employer] Apps Indication:Smoker Start:27-May-2021 Instruction Type:Patient Education [facility]; [facility] Work Phone: Instructions* Name Dates Details Patient Instructions Indication:BMI 25.0-25.9,adult Start:10-Feb-2023 Instruction Type:Provider Instructions for Treatment How to Access Health Informa tion Online using Patient Portal and [employer]rd [employer] Apps Indication:BMI 25.0-25.9,adult Start:10-Feb-2023 Instruction Type:Patient Education Patient Instructions Indication:BMI 25.0-25.9,adult Start:13-Jan-2023 Instruction Type:Provider Instructions for Treatment How to Access Health Informa tion Online using Patient Portal and [employer]rd [employer] Apps Indication:BMI 25.0-25.9,adult Start:13-Jan-2023 Instruction Type:Patient Education Patient Instructions Indication:BMI 24.0-24.9, adult Start:02-Dec-2022 Instruction Type:Provider Instructions for Treatment How to Access Health Informa tion Online using Patient Portal and [employer]rd [employer] Apps Indication:BMI 24.0-24.9, adult Start:02-Dec-2022 Instruction Type:Patient Education Patient Instructions Indication:Non-smoker Start:26-Nov-2022 Instruction Type:Provider Instructions for Treatment How to Access Health Informa tion Online using Patient Portal and [employer]rd [employer] Apps Indication:Non-smoker Start:26-Nov-2022 Instruction Type:Patient Education Patient Instructions Indication:BMI 24.0-24.9, adult Start:28-Oct-2022 Instruction Type:Provider Instructions for Treatment How to Access Health Informa tion Online using Patient Portal and [employer]rd [employer] Apps Indication:BMI 24.0-24.9, adult Start:28-Oct-2022 Instruction Type:Patient Education Patient Instructions Indication:BMI 24.0-24.9, adult Start:03-Jun-2022 Instruction Type:Provider Instructions for Treatment How to Access Health Informa tion Online using Patient Portal and [employer]rd [employer] Apps Indication:BMI 24.0-24.9, adult Start:03-Jun-2022 Instruction Type:Patient Education Patient Instructions Indication:Non-smoker Start:01-Mar-2022 Instruction Type:Provider Instructions for Treatment How to Access Health Informa tion Online using Patient Portal and [employer]rd [employer] Apps Indication:Non-smoker Start:01-Mar-2022 Instruction Type:Patient Education Patient Instructions Indication:Non-smoker Start:11-Feb-2022 Instruction Type:Provider Instructions for Treatment How to Access Health Informa tion Online using Patient Portal and [employer]rd [employer] Apps Indication:Non-smoker Start:11-Feb-2022 Instruction Type:Patient Education How to Access Health Informa tion Online using Patient Portal and [employer]rd [employer] Apps Indication:Non-smoker Start:11-Feb-2022 Instruction Type:Patient Education Patient Instructions Indication:BMI 27.0-27.9,adult Start:20-Jan-2022 Instruction Type:Provider Instructions for Treatment How to Access Health Informa tion Online using Patient Portal and [employer]rd [employer] Apps Indication:BMI 27.0-27.9,adult Start:20-Jan-2022 Instruction Type:Patient Education Patient Instructions Indication:Smoker Start:21-Dec-2021 Instruction Type:Provider Instructions for Treatment How to Access Health Informa tion Online using Patient Portal and [employer]rd [employer] Apps Indication:Smoker Start:21-Dec-2021 Instruction Type:Patient Education Patient Instructions Indication:Laceration of skin of eyebrow Start:08-Dec-2021 Instruction Type:Provider Instructions for Treatment How to Access Health Informa tion Online using Patient Portal and [employer]rd [employer] Apps Indication:Laceration of skin of eyebrow Start:08-Dec-2021 Instruction Type:Patient Education Patient Instructions Indication:DM (diabetes mellitus), type 2, uncontrolled Start:27-Nov-2021 Instruction Type:Provider Instructions for Treatment How to Access Health Informa tion Online using Patient Portal and [employer] Apps Indication:DM (diabetes mellitus), type 2, uncontrolled Start:27-Nov-2021 Instruction Type:Patient Education Patient Instructions Indication:Smoker Start:30-Oct-2021 Instruction Type:Provider Instructions for Treatment How to Access Health Informa tion Online using Patient Portal and [employer] Apps Indication:Smoker Start:30-Oct-2021 Instruction Type:Patient Education Patient Instructions Indication:Smoker Start:14-Oct-2021 Instruction Type:Provider Instructions for Treatment How to Access Health Informa tion Online using Patient Portal and [employer] Apps Indication:Smoker Start:14-Oct-2021 Instruction Type:Patient Education Patient Instructions Indication:Smoker Start:05-Oct-2021 Instruction Type:Provider Instructions for Treatment How to Access Health Informa tion Online using Patient Portal and [employer] Apps Indication:Smoker Start:05-Oct-2021 Instruction Type:Patient Education Patient Instructions Indication:DM (diabetes mellitus), type 2, uncontrolled Start:30-Sep-2021 Instruction Type:Provider Instructions for Treatment How to Access Health Informa tion Online using Patient Portal and [employer] Apps Indication:Smoker Start:30-Sep-2021 Instruction Type:Patient Education Patient Instructions Indication:Smoker Start:19-Aug-2021 Instruction Type:Provider Instructions for Treatment How to Access Health Informa tion Online using Patient Portal and [employer] Apps Indication:Smoker Start:19-Aug-2021 Instruction Type:Patient Education Patient Instructions Indication:Smoker Start:22-Jul-2021 Instruction Type:Provider Instructions for Treatment How to Access Health Informa tion Online using Patient Portal and [employer] Apps Indication:Smoker Start:22-Jul-2021 Instruction Type:Patient Education Patient Instructions Indication:Smoker Start:15-Jul-2021 Instruction Type:Provider Instructions for Treatment How to Access Health Informa tion Online using Patient Portal and [employer]rd [employer] Apps Indication:Smoker Start:15-Jul-2021 Instruction Type:Patient Education Patient Instructions Indication:Smoker Start:10-Jul-2021 Instruction Type:Provider Instructions for Treatment How to Access Health Informa tion Online using Patient Portal and [employer] Apps Indication:Smoker Start:10-Jul-2021 Instruction Type:Patient Education Patient Instructions Indication:Smoker Start:27-May-2021 Instruction Type:Provider Instructions for Treatment How to Access Health Informa tion Online using Patient Portal and [employer]rd [employer] Apps Indication:Smoker Start:27-May-2021 Instruction Type:Patient Education [facility]; [facility] Work Phone: Instructions* Name Dates Details cardiovascular counseling Indication:Atrial fibrillation with RVR Start:10-Mar-2023 Instruction Type:Provider Instructions for Treatment Patient Instructions Indication:Non-smoker Start:10-Mar-2023 Instruction Type:Provider Instructions for Treatment How to Access Health Informa tion Online using Patient Portal and [employer]rd [employer] Apps Indication:Non-smoker Start:10-Mar-2023 Instruction Type:Patient Education Patient Instructions Indication:BMI 25.0-25.9,adult Start:10-Feb-2023 Instruction Type:Provider Instructions for Treatment How to Access Health Informa tion Online using Patient Portal and [employer]rd [employer] Apps Indication:BMI 25.0-25.9,adult Start:10-Feb-2023 Instruction Type:Patient Education Patient Instructions Indication:BMI 25.0-25.9,adult Start:13-Jan-2023 Instruction Type:Provider Instructions for Treatment How to Access Health Informa tion Online using Patient Portal and [employer] Apps Indication:BMI 25.0-25.9,adult Start:13-Jan-2023 Instruction Type:Patient Education Patient Instructions Indication:BMI 24.0-24.9, adult Start:02-Dec-2022 Instruction Type:Provider Instructions for Treatment How to Access Health Informa tion Online using Patient Portal and [employer]rd [employer] Apps Indication:BMI 24.0-24.9, adult Start:02-Dec-2022 Instruction Type:Patient Education Patient Instructions Indication:Non-smoker Start:26-Nov-2022 Instruction Type:Provider Instructions for Treatment How to Access Health Informa tion Online using Patient Portal and [employer] Apps Indication:Non-smoker Start:26-Nov-2022 Instruction Type:Patient Education Patient Instructions Indication:BMI 24.0-24.9, adult Start:28-Oct-2022 Instruction Type:Provider Instructions for Treatment How to Access Health Informa tion Online using Patient Portal and [employer] Apps Indication:BMI 24.0-24.9, adult Start:28-Oct-2022 Instruction Type:Patient Education Patient Instructions Indication:BMI 24.0-24.9, adult Start:03-Jun-2022 Instruction Type:Provider Instructions for Treatment How to Access Health Informa tion Online using Patient Portal and [employer] Apps Indication:BMI 24.0-24.9, adult Start:03-Jun-2022 Instruction Type:Patient Education Patient Instructions Indication:Non-smoker Start:01-Mar-2022 Instruction Type:Provider Instructions for Treatment How to Access Health Informa tion Online using Patient Portal and [employer] Apps Indication:Non-smoker Start:01-Mar-2022 Instruction Type:Patient Education Patient Instructions Indication:Non-smoker Start:11-Feb-2022 Instruction Type:Provider Instructions for Treatment How to Access Health Informa tion Online using Patient Portal and [employer] Apps Indication:Non-smoker Start:11-Feb-2022 Instruction Type:Patient Education How to Access Health Informa tion Online using Patient Portal and [employer] Apps Indication:Non-smoker Start:11-Feb-2022 Instruction Type:Patient Education Patient Instructions Indication:BMI 27.0-27.9,adult Start:20-Jan-2022 Instruction Type:Provider Instructions for Treatment How to Access Health Informa tion Online using Patient Portal and [employer]rd [employer] Apps Indication:BMI 27.0-27.9,adult Start:20-Jan-2022 Instruction Type:Patient Education Patient Instructions Indication:Smoker Start:21-Dec-2021 Instruction Type:Provider Instructions for Treatment How to Access Health Informa tion Online using Patient Portal and [employer]rd [employer] Apps Indication:Smoker Start:21-Dec-2021 Instruction Type:Patient Education Patient Instructions Indication:Laceration of skin of eyebrow Start:08-Dec-2021 Instruction Type:Provider Instructions for Treatment How to Access Health Informa tion Online using Patient Portal and [employer]rd [employer] Apps Indication:Laceration of skin of eyebrow Start:08-Dec-2021 Instruction Type:Patient Education Patient Instructions Indication:DM (diabetes mellitus), type 2, uncontrolled Start:27-Nov-2021 Instruction Type:Provider Instructions for Treatment How to Access Health Informa tion Online using Patient Portal and [employer] Apps Indication:DM (diabetes mellitus), type 2, uncontrolled Start:27-Nov-2021 Instruction Type:Patient Education Patient Instructions Indication:Smoker Start:30-Oct-2021 Instruction Type:Provider Instructions for Treatment How to Access Health Informa tion Online using Patient Portal and [employer] Apps Indication:Smoker Start:30-Oct-2021 Instruction Type:Patient Education Patient Instructions Indication:Smoker Start:14-Oct-2021 Instruction Type:Provider Instructions for Treatment How to Access Health Informa tion Online using Patient Portal and [employer] Apps Indication:Smoker Start:14-Oct-2021 Instruction Type:Patient Education Patient Instructions Indication:Smoker Start:05-Oct-2021 Instruction Type:Provider Instructions for Treatment How to Access Health Informa tion Online using Patient Portal and [employer]rd [employer] Apps Indication:Smoker Start:05-Oct-2021 Instruction Type:Patient Education Patient Instructions Indication:DM (diabetes mellitus), type 2, uncontrolled Start:30-Sep-2021 Instruction Type:Provider Instructions for Treatment How to Access Health Informa tion Online using Patient Portal and [employer] Apps Indication:Smoker Start:30-Sep-2021 Instruction Type:Patient Education Patient Instructions Indication:Smoker Start:19-Aug-2021 Instruction Type:Provider Instructions for Treatment How to Access Health Informa tion Online using Patient Portal and [employer] Apps Indication:Smoker Start:19-Aug-2021 Instruction Type:Patient Education Patient Instructions Indication:Smoker Start:22-Jul-2021 Instruction Type:Provider Instructions for Treatment How to Access Health Informa tion Online using Patient Portal and [employer] Apps Indication:Smoker Start:22-Jul-2021 Instruction Type:Patient Education Patient Instructions Indication:Smoker Start:15-Jul-2021 Instruction Type:Provider Instructions for Treatment How to Access Health Informa tion Online using Patient Portal and [employer]rd [employer] Apps Indication:Smoker Start:15-Jul-2021 Instruction Type:Patient Education Patient Instructions Indication:Smoker Start:10-Jul-2021 Instruction Type:Provider Instructions for Treatment How to Access Health Informa tion Online using Patient Portal and [employer]rd [employer] Apps Indication:Smoker Start:10-Jul-2021 Instruction Type:Patient Education Patient Instructions Indication:Smoker Start:27-May-2021 Instruction Type:Provider Instructions for Treatment How to Access Health Informa tion Online using Patient Portal and [employer]rd [employer] Apps Indication:Smoker Start:27-May-2021 Instruction Type:Patient Education [facility]; [facility] Work Phone: Instructions* Name Dates Details Patient Instructions Indication:Non-smoker Start:08-Apr-2023 Instruction Type:Provider Instructions for Treatment How to Access Health Informa tion Online using Patient Portal and [employer]rd [employer] Apps Indication:Non-smoker Start:08-Apr-2023 Instruction Type:Patient Education cardiovascular counseling Indication:Atrial fibrillation with RVR Start:10-Mar-2023 Instruction Type:Provider Instructions for Treatment Patient Instructions Indication:Non-smoker Start:10-Mar-2023 Instruction Type:Provider Instructions for Treatment How to Access Health Informa tion Online using Patient Portal and [employer]rd [employer] Apps Indication:Non-smoker Start:10-Mar-2023 Instruction Type:Patient Education Patient Instructions Indication:BMI 25.0-25.9,adult Start:10-Feb-2023 Instruction Type:Provider Instructions for Treatment How to Access Health Informa tion Online using Patient Portal and [employer]rd [employer] Apps Indication:BMI 25.0-25.9,adult Start:10-Feb-2023 Instruction Type:Patient Education Patient Instructions Indication:BMI 25.0-25.9,adult Start:13-Jan-2023 Instruction Type:Provider Instructions for Treatment How to Access Health Informa tion Online using Patient Portal and [employer]rd [employer] Apps Indication:BMI 25.0-25.9,adult Start:13-Jan-2023 Instruction Type:Patient Education Patient Instructions Indication:BMI 24.0-24.9, adult Start:02-Dec-2022 Instruction Type:Provider Instructions for Treatment How to Access Health Informa tion Online using Patient Portal and [employer]rd [employer] Apps Indication:BMI 24.0-24.9, adult Start:02-Dec-2022 Instruction Type:Patient Education Patient Instructions Indication:Non-smoker Start:26-Nov-2022 Instruction Type:Provider Instructions for Treatment How to Access Health Informa tion Online using Patient Portal and [employer]rd [employer] Apps Indication:Non-smoker Start:26-Nov-2022 Instruction Type:Patient Education Patient Instructions Indication:BMI 24.0-24.9, adult Start:28-Oct-2022 Instruction Type:Provider Instructions for Treatment How to Access Health Informa tion Online using Patient Portal and [employer] Apps Indication:BMI 24.0-24.9, adult Start:28-Oct-2022 Instruction Type:Patient Education Patient Instructions Indication:BMI 24.0-24.9, adult Start:03-Jun-2022 Instruction Type:Provider Instructions for Treatment How to Access Health Informa tion Online using Patient Portal and [employer] Apps Indication:BMI 24.0-24.9, adult Start:03-Jun-2022 Instruction Type:Patient Education Patient Instructions Indication:Non-smoker Start:01-Mar-2022 Instruction Type:Provider Instructions for Treatment How to Access Health Informa tion Online using Patient Portal and [employer]rd [employer] Apps Indication:Non-smoker Start:01-Mar-2022 Instruction Type:Patient Education Patient Instructions Indication:Non-smoker Start:11-Feb-2022 Instruction Type:Provider Instructions for Treatment How to Access Health Informa tion Online using Patient Portal and [employer]rd [employer] Apps Indication:Non-smoker Start:11-Feb-2022 Instruction Type:Patient Education How to Access Health Informa tion Online using Patient Portal and [employer] Apps Indication:Non-smoker Start:11-Feb-2022 Instruction Type:Patient Education Patient Instructions Indication:BMI 27.0-27.9,adult Start:20-Jan-2022 Instruction Type:Provider Instructions for Treatment How to Access Health Informa tion Online using Patient Portal and [employer]rd [employer] Apps Indication:BMI 27.0-27.9,adult Start:20-Jan-2022 Instruction Type:Patient Education Patient Instructions Indication:Smoker Start:21-Dec-2021 Instruction Type:Provider Instructions for Treatment How to Access Health Informa tion Online using Patient Portal and [employer]rd [employer] Apps Indication:Smoker Start:21-Dec-2021 Instruction Type:Patient Education Patient Instructions Indication:Laceration of skin of eyebrow Start:08-Dec-2021 Instruction Type:Provider Instructions for Treatment How to Access Health Informa tion Online using Patient Portal and [employer]rd [employer] Apps Indication:Laceration of skin of eyebrow Start:08-Dec-2021 Instruction Type:Patient Education Patient Instructions Indication:DM (diabetes mellitus), type 2, uncontrolled Start:27-Nov-2021 Instruction Type:Provider Instructions for Treatment How to Access Health Informa tion Online using Patient Portal and [employer]rd [employer] Apps Indication:DM (diabetes mellitus), type 2, uncontrolled Start:27-Nov-2021 Instruction Type:Patient Education Patient Instructions Indication:Smoker Start:30-Oct-2021 Instruction Type:Provider Instructions for Treatment How to Access Health Informa tion Online using Patient Portal and [employer] Apps Indication:Smoker Start:30-Oct-2021 Instruction Type:Patient Education Patient Instructions Indication:Smoker Start:14-Oct-2021 Instruction Type:Provider Instructions for Treatment How to Access Health Informa tion Online using Patient Portal and [employer] Apps Indication:Smoker Start:14-Oct-2021 Instruction Type:Patient Education Patient Instructions Indication:Smoker Start:05-Oct-2021 Instruction Type:Provider Instructions for Treatment How to Access Health Informa tion Online using Patient Portal and [employer] Apps Indication:Smoker Start:05-Oct-2021 Instruction Type:Patient Education Patient Instructions Indication:DM (diabetes mellitus), type 2, uncontrolled Start:30-Sep-2021 Instruction Type:Provider Instructions for Treatment How to Access Health Informa tion Online using Patient Portal and [employer] Apps Indication:Smoker Start:30-Sep-2021 Instruction Type:Patient Education Patient Instructions Indication:Smoker Start:19-Aug-2021 Instruction Type:Provider Instructions for Treatment How to Access Health Informa tion Online using Patient Portal and [employer] Apps Indication:Smoker Start:19-Aug-2021 Instruction Type:Patient Education Patient Instructions Indication:Smoker Start:22-Jul-2021 Instruction Type:Provider Instructions for Treatment How to Access Health Informa tion Online using Patient Portal and [employer] Apps Indication:Smoker Start:22-Jul-2021 Instruction Type:Patient Education Patient Instructions Indication:Smoker Start:15-Jul-2021 Instruction Type:Provider Instructions for Treatment How to Access Health Informa tion Online using Patient Portal and [employer]rd [employer] Apps Indication:Smoker Start:15-Jul-2021 Instruction Type:Patient Education Patient Instructions Indication:Smoker Start:10-Jul-2021 Instruction Type:Provider Instructions for Treatment How to Access Health Informa tion Online using Patient Portal and [employer]rd [employer] Apps Indication:Smoker Start:10-Jul-2021 Instruction Type:Patient Education Patient Instructions Indication:Smoker Start:27-May-2021 Instruction Type:Provider Instructions for Treatment How to Access Health Informa tion Online using Patient Portal and [employer]rd [employer] Apps Indication:Smoker Start:27-May-2021 Instruction Type:Patient Education [facility]; [facility] Work Phone: Instructions* Name Dates Details Patient Instructions Indication:Non-smoker Start:08-Apr-2023 Instruction Type:Provider Instructions for Treatment How to Access Health Informa tion Online using Patient Portal and [employer]rd [employer] Apps Indication:Non-smoker Start:08-Apr-2023 Instruction Type:Patient Education cardiovascular counseling Indication:Atrial fibrillation with RVR Start:10-Mar-2023 Instruction Type:Provider Instructions for Treatment Patient Instructions Indication:Non-smoker Start:10-Mar-2023 Instruction Type:Provider Instructions for Treatment How to Access Health Informa tion Online using Patient Portal and [employer]rd [employer] Apps Indication:Non-smoker Start:10-Mar-2023 Instruction Type:Patient Education Patient Instructions Indication:BMI 25.0-25.9,adult Start:10-Feb-2023 Instruction Type:Provider Instructions for Treatment How to Access Health Informa tion Online using Patient Portal and [employer] Apps Indication:BMI 25.0-25.9,adult Start:10-Feb-2023 Instruction Type:Patient Education Patient Instructions Indication:BMI 25.0-25.9,adult Start:13-Jan-2023 Instruction Type:Provider Instructions for Treatment How to Access Health Informa tion Online using Patient Portal and [employer]rd [employer] Apps Indication:BMI 25.0-25.9,adult Start:13-Jan-2023 Instruction Type:Patient Education Patient Instructions Indication:BMI 24.0-24.9, adult Start:02-Dec-2022 Instruction Type:Provider Instructions for Treatment How to Access Health Informa tion Online using Patient Portal and [employer]rd [employer] Apps Indication:BMI 24.0-24.9, adult Start:02-Dec-2022 Instruction Type:Patient Education Patient Instructions Indication:Non-smoker Start:26-Nov-2022 Instruction Type:Provider Instructions for Treatment How to Access Health Informa tion Online using Patient Portal and [employer]rd [employer] Apps Indication:Non-smoker Start:26-Nov-2022 Instruction Type:Patient Education Patient Instructions Indication:BMI 24.0-24.9, adult Start:28-Oct-2022 Instruction Type:Provider Instructions for Treatment How to Access Health Informa tion Online using Patient Portal and [employer]rd [employer] Apps Indication:BMI 24.0-24.9, adult Start:28-Oct-2022 Instruction Type:Patient Education Patient Instructions Indication:BMI 24.0-24.9, adult Start:03-Jun-2022 Instruction Type:Provider Instructions for Treatment How to Access Health Informa tion Online using Patient Portal and [employer]rd [employer] Apps Indication:BMI 24.0-24.9, adult Start:03-Jun-2022 Instruction Type:Patient Education Patient Instructions Indication:Non-smoker Start:01-Mar-2022 Instruction Type:Provider Instructions for Treatment How to Access Health Informa tion Online using Patient Portal and [employer]rd [employer] Apps Indication:Non-smoker Start:01-Mar-2022 Instruction Type:Patient Education Patient Instructions Indication:Non-smoker Start:11-Feb-2022 Instruction Type:Provider Instructions for Treatment How to Access Health Informa tion Online using Patient Portal and [employer]rd [employer] Apps Indication:Non-smoker Start:11-Feb-2022 Instruction Type:Patient Education How to Access Health Informa tion Online using Patient Portal and [employer]rd [employer] Apps Indication:Non-smoker Start:11-Feb-2022 Instruction Type:Patient Education Patient Instructions Indication:BMI 27.0-27.9,adult Start:20-Jan-2022 Instruction Type:Provider Instructions for Treatment How to Access Health Informa tion Online using Patient Portal and [employer]rd [employer] Apps Indication:BMI 27.0-27.9,adult Start:20-Jan-2022 Instruction Type:Patient Education Patient Instructions Indication:Smoker Start:21-Dec-2021 Instruction Type:Provider Instructions for Treatment How to Access Health Informa tion Online using Patient Portal and [employer]rd [employer] Apps Indication:Smoker Start:21-Dec-2021 Instruction Type:Patient Education Patient Instructions Indication:Laceration of skin of eyebrow Start:08-Dec-2021 Instruction Type:Provider Instructions for Treatment How to Access Health Informa tion Online using Patient Portal and [employer]rd [employer] Apps Indication:Laceration of skin of eyebrow Start:08-Dec-2021 Instruction Type:Patient Education Patient Instructions Indication:DM (diabetes mellitus), type 2, uncontrolled Start:27-Nov-2021 Instruction Type:Provider Instructions for Treatment How to Access Health Informa tion Online using Patient Portal and [employer]rd [employer] Apps Indication:DM (diabetes mellitus), type 2, uncontrolled Start:27-Nov-2021 Instruction Type:Patient Education Patient Instructions Indication:Smoker Start:30-Oct-2021 Instruction Type:Provider Instructions for Treatment How to Access Health Informa tion Online using Patient Portal and [employer]rd [employer] Apps Indication:Smoker Start:30-Oct-2021 Instruction Type:Patient Education Patient Instructions Indication:Smoker Start:14-Oct-2021 Instruction Type:Provider Instructions for Treatment How to Access Health Informa tion Online using Patient Portal and [employer]rd [employer] Apps Indication:Smoker Start:14-Oct-2021 Instruction Type:Patient Education Patient Instructions Indication:Smoker Start:05-Oct-2021 Instruction Type:Provider Instructions for Treatment How to Access Health Informa tion Online using Patient Portal and [employer] Apps Indication:Smoker Start:05-Oct-2021 Instruction Type:Patient Education Patient Instructions Indication:DM (diabetes mellitus), type 2, uncontrolled Start:30-Sep-2021 Instruction Type:Provider Instructions for Treatment How to Access Health Informa tion Online using Patient Portal and [employer] Apps Indication:Smoker Start:30-Sep-2021 Instruction Type:Patient Education Patient Instructions Indication:Smoker Start:19-Aug-2021 Instruction Type:Provider Instructions for Treatment How to Access Health Informa tion Online using Patient Portal and [employer]rd [employer] Apps Indication:Smoker Start:19-Aug-2021 Instruction Type:Patient Education Patient Instructions Indication:Smoker Start:22-Jul-2021 Instruction Type:Provider Instructions for Treatment How to Access Health Informa tion Online using Patient Portal and [employer] Apps Indication:Smoker Start:22-Jul-2021 Instruction Type:Patient Education Patient Instructions Indication:Smoker Start:15-Jul-2021 Instruction Type:Provider Instructions for Treatment How to Access Health Informa tion Online using Patient Portal and [employer] Apps Indication:Smoker Start:15-Jul-2021 Instruction Type:Patient Education Patient Instructions Indication:Smoker Start:10-Jul-2021 Instruction Type:Provider Instructions for Treatment How to Access Health Informa tion Online using Patient Portal and [employer]rd [employer] Apps Indication:Smoker Start:10-Jul-2021 Instruction Type:Patient Education Patient Instructions Indication:Smoker Start:27-May-2021 Instruction Type:Provider Instructions for Treatment How to Access Health Informa tion Online using Patient Portal and [employer] Apps Indication:Smoker Start:27-May-2021 Instruction Type:Patient Education [facility]; [facility] Work Phone: Instructions* Name Dates Details Patient Instructions Indication:Non-smoker Start:10-Jun-2023 Instruction Type:Provider Instructions for Treatment How to Access Health Informa tion Online using Patient Portal and [employer] Apps Indication:Non-smoker Start:10-Jun-2023 Instruction Type:Patient Education Patient Instructions Indication:Non-smoker Start:08-Apr-2023 Instruction Type:Provider Instructions for Treatment How to Access Health Informa tion Online using Patient Portal and [employer] Apps Indication:Non-smoker Start:08-Apr-2023 Instruction Type:Patient Education cardiovascular counseling Indication:Atrial fibrillation with RVR Start:10-Mar-2023 Instruction Type:Provider Instructions for Treatment Patient Instructions Indication:Non-smoker Start:10-Mar-2023 Instruction Type:Provider Instructions for Treatment How to Access Health Informa tion Online using Patient Portal and [employer] Apps Indication:Non-smoker Start:10-Mar-2023 Instruction Type:Patient Education Patient Instructions Indication:BMI 25.0-25.9,adult Start:10-Feb-2023 Instruction Type:Provider Instructions for Treatment How to Access Health Informa tion Online using Patient Portal and [employer] Apps Indication:BMI 25.0-25.9,adult Start:10-Feb-2023 Instruction Type:Patient Education Patient Instructions Indication:BMI 25.0-25.9,adult Start:13-Jan-2023 Instruction Type:Provider Instructions for Treatment How to Access Health Informa tion Online using Patient Portal and [employer] Apps Indication:BMI 25.0-25.9,adult Start:13-Jan-2023 Instruction Type:Patient Education Patient Instructions Indication:BMI 24.0-24.9, adult Start:02-Dec-2022 Instruction Type:Provider Instructions for Treatment How to Access Health Informa tion Online using Patient Portal and [employer] Apps Indication:BMI 24.0-24.9, adult Start:02-Dec-2022 Instruction Type:Patient Education Patient Instructions Indication:Non-smoker Start:26-Nov-2022 Instruction Type:Provider Instructions for Treatment How to Access Health Informa tion Online using Patient Portal and [employer] Apps Indication:Non-smoker Start:26-Nov-2022 Instruction Type:Patient Education Patient Instructions Indication:BMI 24.0-24.9, adult Start:28-Oct-2022 Instruction Type:Provider Instructions for Treatment How to Access Health Informa tion Online using Patient Portal and [employer] Apps Indication:BMI 24.0-24.9, adult Start:28-Oct-2022 Instruction Type:Patient Education Patient Instructions Indication:BMI 24.0-24.9, adult Start:03-Jun-2022 Instruction Type:Provider Instructions for Treatment How to Access Health Informa tion Online using Patient Portal and [employer] Apps Indication:BMI 24.0-24.9, adult Start:03-Jun-2022 Instruction Type:Patient Education Patient Instructions Indication:Non-smoker Start:01-Mar-2022 Instruction Type:Provider Instructions for Treatment How to Access Health Informa tion Online using Patient Portal and [employer] Apps Indication:Non-smoker Start:01-Mar-2022 Instruction Type:Patient Education Patient Instructions Indication:Non-smoker Start:11-Feb-2022 Instruction Type:Provider Instructions for Treatment How to Access Health Informa tion Online using Patient Portal and [employer] Apps Indication:Non-smoker Start:11-Feb-2022 Instruction Type:Patient Education How to Access Health Informa tion Online using Patient Portal and [employer] Apps Indication:Non-smoker Start:11-Feb-2022 Instruction Type:Patient Education Patient Instructions Indication:BMI 27.0-27.9,adult Start:20-Jan-2022 Instruction Type:Provider Instructions for Treatment How to Access Health Informa tion Online using Patient Portal and [employer] Apps Indication:BMI 27.0-27.9,adult Start:20-Jan-2022 Instruction Type:Patient Education Patient Instructions Indication:Smoker Start:21-Dec-2021 Instruction Type:Provider Instructions for Treatment How to Access Health Informa tion Online using Patient Portal and [employer] Apps Indication:Smoker Start:21-Dec-2021 Instruction Type:Patient Education Patient Instructions Indication:Laceration of skin of eyebrow Start:08-Dec-2021 Instruction Type:Provider Instructions for Treatment How to Access Health Informa tion Online using Patient Portal and [employer] Apps Indication:Laceration of skin of eyebrow Start:08-Dec-2021 Instruction Type:Patient Education Patient Instructions Indication:DM (diabetes mellitus), type 2, uncontrolled Start:27-Nov-2021 Instruction Type:Provider Instructions for Treatment How to Access Health Informa tion Online using Patient Portal and [employer] Apps Indication:DM (diabetes mellitus), type 2, uncontrolled Start:27-Nov-2021 Instruction Type:Patient Education Patient Instructions Indication:Smoker Start:30-Oct-2021 Instruction Type:Provider Instructions for Treatment How to Access Health Informa tion Online using Patient Portal and [employer] Apps Indication:Smoker Start:30-Oct-2021 Instruction Type:Patient Education Patient Instructions Indication:Smoker Start:14-Oct-2021 Instruction Type:Provider Instructions for Treatment How to Access Health Informa tion Online using Patient Portal and [employer] Apps Indication:Smoker Start:14-Oct-2021 Instruction Type:Patient Education Patient Instructions Indication:Smoker Start:05-Oct-2021 Instruction Type:Provider Instructions for Treatment How to Access Health Informa tion Online using Patient Portal and [employer] Apps Indication:Smoker Start:05-Oct-2021 Instruction Type:Patient Education Patient Instructions Indication:DM (diabetes mellitus), type 2, uncontrolled Start:30-Sep-2021 Instruction Type:Provider Instructions for Treatment How to Access Health Informa tion Online using Patient Portal and [employer] Apps Indication:Smoker Start:30-Sep-2021 Instruction Type:Patient Education Patient Instructions Indication:Smoker Start:19-Aug-2021 Instruction Type:Provider Instructions for Treatment How to Access Health Informa tion Online using Patient Portal and [employer] Apps Indication:Smoker Start:19-Aug-2021 Instruction Type:Patient Education Patient Instructions Indication:Smoker Start:22-Jul-2021 Instruction Type:Provider Instructions for Treatment How to Access Health Informa tion Online using Patient Portal and [employer] Apps Indication:Smoker Start:22-Jul-2021 Instruction Type:Patient Education Patient Instructions Indication:Smoker Start:15-Jul-2021 Instruction Type:Provider Instructions for Treatment How to Access Health Informa tion Online using Patient Portal and [employer] Apps Indication:Smoker Start:15-Jul-2021 Instruction Type:Patient Education Patient Instructions Indication:Smoker Start:10-Jul-2021 Instruction Type:Provider Instructions for Treatment How to Access Health Informa tion Online using Patient Portal and [employer] Apps Indication:Smoker Start:10-Jul-2021 Instruction Type:Patient Education Patient Instructions Indication:Smoker Start:27-May-2021 Instruction Type:Provider Instructions for Treatment How to Access Health Informa tion Online using Patient Portal and [employer] Apps Indication:Smoker Start:27-May-2021 Instruction Type:Patient Education [facility]; [facility] Work Phone: Instructions* Name Dates Details Patient Instructions Indication:Non-smoker Start:10-Jun-2023 Instruction Type:Provider Instructions for Treatment How to Access Health Informa tion Online using Patient Portal and [employer] Apps Indication:Non-smoker Start:10-Jun-2023 Instruction Type:Patient Education Patient Instructions Indication:Non-smoker Start:08-Apr-2023 Instruction Type:Provider Instructions for Treatment How to Access Health Informa tion Online using Patient Portal and [employer] Apps Indication:Non-smoker Start:08-Apr-2023 Instruction Type:Patient Education cardiovascular counseling Indication:Atrial fibrillation with RVR Start:10-Mar-2023 Instruction Type:Provider Instructions for Treatment Patient Instructions Indication:Non-smoker Start:10-Mar-2023 Instruction Type:Provider Instructions for Treatment How to Access Health Informa tion Online using Patient Portal and [employer] Apps Indication:Non-smoker Start:10-Mar-2023 Instruction Type:Patient Education Patient Instructions Indication:BMI 25.0-25.9,adult Start:10-Feb-2023 Instruction Type:Provider Instructions for Treatment How to Access Health Informa tion Online using Patient Portal and [employer] Apps Indication:BMI 25.0-25.9,adult Start:10-Feb-2023 Instruction Type:Patient Education Patient Instructions Indication:BMI 25.0-25.9,adult Start:13-Jan-2023 Instruction Type:Provider Instructions for Treatment How to Access Health Informa tion Online using Patient Portal and [employer] Apps Indication:BMI 25.0-25.9,adult Start:13-Jan-2023 Instruction Type:Patient Education Patient Instructions Indication:BMI 24.0-24.9, adult Start:02-Dec-2022 Instruction Type:Provider Instructions for Treatment How to Access Health Informa tion Online using Patient Portal and [employer]rd [employer] Apps Indication:BMI 24.0-24.9, adult Start:02-Dec-2022 Instruction Type:Patient Education Patient Instructions Indication:Non-smoker Start:26-Nov-2022 Instruction Type:Provider Instructions for Treatment How to Access Health Informa tion Online using Patient Portal and [employer] Apps Indication:Non-smoker Start:26-Nov-2022 Instruction Type:Patient Education Patient Instructions Indication:BMI 24.0-24.9, adult Start:28-Oct-2022 Instruction Type:Provider Instructions for Treatment How to Access Health Informa tion Online using Patient Portal and [employer] Apps Indication:BMI 24.0-24.9, adult Start:28-Oct-2022 Instruction Type:Patient Education Patient Instructions Indication:BMI 24.0-24.9, adult Start:03-Jun-2022 Instruction Type:Provider Instructions for Treatment How to Access Health Informa tion Online using Patient Portal and [employer] Apps Indication:BMI 24.0-24.9, adult Start:03-Jun-2022 Instruction Type:Patient Education Patient Instructions Indication:Non-smoker Start:01-Mar-2022 Instruction Type:Provider Instructions for Treatment How to Access Health Informa tion Online using Patient Portal and [employer] Apps Indication:Non-smoker Start:01-Mar-2022 Instruction Type:Patient Education Patient Instructions Indication:Non-smoker Start:11-Feb-2022 Instruction Type:Provider Instructions for Treatment How to Access Health Informa tion Online using Patient Portal and [employer] Apps Indication:Non-smoker Start:11-Feb-2022 Instruction Type:Patient Education How to Access Health Informa tion Online using Patient Portal and [employer] Apps Indication:Non-smoker Start:11-Feb-2022 Instruction Type:Patient Education Patient Instructions Indication:BMI 27.0-27.9,adult Start:20-Jan-2022 Instruction Type:Provider Instructions for Treatment How to Access Health Informa tion Online using Patient Portal and [employer]rd [employer] Apps Indication:BMI 27.0-27.9,adult Start:20-Jan-2022 Instruction Type:Patient Education Patient Instructions Indication:Smoker Start:21-Dec-2021 Instruction Type:Provider Instructions for Treatment How to Access Health Informa tion Online using Patient Portal and [employer]rd [employer] Apps Indication:Smoker Start:21-Dec-2021 Instruction Type:Patient Education Patient Instructions Indication:Laceration of skin of eyebrow Start:08-Dec-2021 Instruction Type:Provider Instructions for Treatment How to Access Health Informa tion Online using Patient Portal and [employer] Apps Indication:Laceration of skin of eyebrow Start:08-Dec-2021 Instruction Type:Patient Education Patient Instructions Indication:DM (diabetes mellitus), type 2, uncontrolled Start:27-Nov-2021 Instruction Type:Provider Instructions for Treatment How to Access Health Informa tion Online using Patient Portal and [employer] Apps Indication:DM (diabetes mellitus), type 2, uncontrolled Start:27-Nov-2021 Instruction Type:Patient Education Patient Instructions Indication:Smoker Start:30-Oct-2021 Instruction Type:Provider Instructions for Treatment How to Access Health Informa tion Online using Patient Portal and [employer] Apps Indication:Smoker Start:30-Oct-2021 Instruction Type:Patient Education Patient Instructions Indication:Smoker Start:14-Oct-2021 Instruction Type:Provider Instructions for Treatment How to Access Health Informa tion Online using Patient Portal and [employer] Apps Indication:Smoker Start:14-Oct-2021 Instruction Type:Patient Education Patient Instructions Indication:Smoker Start:05-Oct-2021 Instruction Type:Provider Instructions for Treatment How to Access Health Informa tion Online using Patient Portal and [employer] Apps Indication:Smoker Start:05-Oct-2021 Instruction Type:Patient Education Patient Instructions Indication:DM (diabetes mellitus), type 2, uncontrolled Start:30-Sep-2021 Instruction Type:Provider Instructions for Treatment How to Access Health Informa tion Online using Patient Portal and [employer] Apps Indication:Smoker Start:30-Sep-2021 Instruction Type:Patient Education Patient Instructions Indication:Smoker Start:19-Aug-2021 Instruction Type:Provider Instructions for Treatment How to Access Health Informa tion Online using Patient Portal and [employer] Apps Indication:Smoker Start:19-Aug-2021 Instruction Type:Patient Education Patient Instructions Indication:Smoker Start:22-Jul-2021 Instruction Type:Provider Instructions for Treatment How to Access Health Informa tion Online using Patient Portal and [employer] Apps Indication:Smoker Start:22-Jul-2021 Instruction Type:Patient Education Patient Instructions Indication:Smoker Start:15-Jul-2021 Instruction Type:Provider Instructions for Treatment How to Access Health Informa tion Online using Patient Portal and [employer] Apps Indication:Smoker Start:15-Jul-2021 Instruction Type:Patient Education Patient Instructions Indication:Smoker Start:10-Jul-2021 Instruction Type:Provider Instructions for Treatment How to Access Health Informa tion Online using Patient Portal and [employer] Apps Indication:Smoker Start:10-Jul-2021 Instruction Type:Patient Education Patient Instructions Indication:Smoker Start:27-May-2021 Instruction Type:Provider Instructions for Treatment How to Access Health Informa tion Online using Patient Portal and [employer]rd [employer] Apps Indication:Smoker Start:27-May-2021 Instruction Type:Patient Education [facility]; [facility] Work Phone: Instructions* Name Dates Details Patient Instructions Indication:Non-smoker Start:10-Jun-2023 Instruction Type:Provider Instructions for Treatment How to Access Health Informa tion Online using Patient Portal and [employer] Apps Indication:Non-smoker Start:10-Jun-2023 Instruction Type:Patient Education Patient Instructions Indication:Non-smoker Start:08-Apr-2023 Instruction Type:Provider Instructions for Treatment How to Access Health Informa tion Online using Patient Portal and [employer] Apps Indication:Non-smoker Start:08-Apr-2023 Instruction Type:Patient Education cardiovascular counseling Indication:Atrial fibrillation with RVR Start:10-Mar-2023 Instruction Type:Provider Instructions for Treatment Patient Instructions Indication:Non-smoker Start:10-Mar-2023 Instruction Type:Provider Instructions for Treatment How to Access Health Informa tion Online using Patient Portal and [employer]rd [employer] Apps Indication:Non-smoker Start:10-Mar-2023 Instruction Type:Patient Education Patient Instructions Indication:BMI 25.0-25.9,adult Start:10-Feb-2023 Instruction Type:Provider Instructions for Treatment How to Access Health Informa tion Online using Patient Portal and [employer] Apps Indication:BMI 25.0-25.9,adult Start:10-Feb-2023 Instruction Type:Patient Education Patient Instructions Indication:BMI 25.0-25.9,adult Start:13-Jan-2023 Instruction Type:Provider Instructions for Treatment How to Access Health Informa tion Online using Patient Portal and [employer] Apps Indication:BMI 25.0-25.9,adult Start:13-Jan-2023 Instruction Type:Patient Education Patient Instructions Indication:BMI 24.0-24.9, adult Start:02-Dec-2022 Instruction Type:Provider Instructions for Treatment How to Access Health Informa tion Online using Patient Portal and [employer] Apps Indication:BMI 24.0-24.9, adult Start:02-Dec-2022 Instruction Type:Patient Education Patient Instructions Indication:Non-smoker Start:26-Nov-2022 Instruction Type:Provider Instructions for Treatment How to Access Health Informa tion Online using Patient Portal and [employer] Apps Indication:Non-smoker Start:26-Nov-2022 Instruction Type:Patient Education Patient Instructions Indication:BMI 24.0-24.9, adult Start:28-Oct-2022 Instruction Type:Provider Instructions for Treatment How to Access Health Informa tion Online using Patient Portal and [employer] Apps Indication:BMI 24.0-24.9, adult Start:28-Oct-2022 Instruction Type:Patient Education Patient Instructions Indication:BMI 24.0-24.9, adult Start:03-Jun-2022 Instruction Type:Provider Instructions for Treatment How to Access Health Informa tion Online using Patient Portal and [employer] Apps Indication:BMI 24.0-24.9, adult Start:03-Jun-2022 Instruction Type:Patient Education Patient Instructions Indication:Non-smoker Start:01-Mar-2022 Instruction Type:Provider Instructions for Treatment How to Access Health Informa tion Online using Patient Portal and [employer] Apps Indication:Non-smoker Start:01-Mar-2022 Instruction Type:Patient Education Patient Instructions Indication:Non-smoker Start:11-Feb-2022 Instruction Type:Provider Instructions for Treatment How to Access Health Informa tion Online using Patient Portal and [employer] Apps Indication:Non-smoker Start:11-Feb-2022 Instruction Type:Patient Education How to Access Health Informa tion Online using Patient Portal and [employer]rd [employer] Apps Indication:Non-smoker Start:11-Feb-2022 Instruction Type:Patient Education Patient Instructions Indication:BMI 27.0-27.9,adult Start:20-Jan-2022 Instruction Type:Provider Instructions for Treatment How to Access Health Informa tion Online using Patient Portal and [employer]rd [employer] Apps Indication:BMI 27.0-27.9,adult Start:20-Jan-2022 Instruction Type:Patient Education Patient Instructions Indication:Smoker Start:21-Dec-2021 Instruction Type:Provider Instructions for Treatment How to Access Health Informa tion Online using Patient Portal and [employer]rd [employer] Apps Indication:Smoker Start:21-Dec-2021 Instruction Type:Patient Education Patient Instructions Indication:Laceration of skin of eyebrow Start:08-Dec-2021 Instruction Type:Provider Instructions for Treatment How to Access Health Informa tion Online using Patient Portal and [employer]rd [employer] Apps Indication:Laceration of skin of eyebrow Start:08-Dec-2021 Instruction Type:Patient Education Patient Instructions Indication:DM (diabetes mellitus), type 2, uncontrolled Start:27-Nov-2021 Instruction Type:Provider Instructions for Treatment How to Access Health Informa tion Online using Patient Portal and [employer]rd [employer] Apps Indication:DM (diabetes mellitus), type 2, uncontrolled Start:27-Nov-2021 Instruction Type:Patient Education Patient Instructions Indication:Smoker Start:30-Oct-2021 Instruction Type:Provider Instructions for Treatment How to Access Health Informa tion Online using Patient Portal and [employer]rd [employer] Apps Indication:Smoker Start:30-Oct-2021 Instruction Type:Patient Education Patient Instructions Indication:Smoker Start:14-Oct-2021 Instruction Type:Provider Instructions for Treatment How to Access Health Informa tion Online using Patient Portal and [employer]rd [employer] Apps Indication:Smoker Start:14-Oct-2021 Instruction Type:Patient Education Patient Instructions Indication:Smoker Start:05-Oct-2021 Instruction Type:Provider Instructions for Treatment How to Access Health Informa tion Online using Patient Portal and [employer]rd [employer] Apps Indication:Smoker Start:05-Oct-2021 Instruction Type:Patient Education Patient Instructions Indication:DM (diabetes mellitus), type 2, uncontrolled Start:30-Sep-2021 Instruction Type:Provider Instructions for Treatment How to Access Health Informa tion Online using Patient Portal and [employer]rd [employer] Apps Indication:Smoker Start:30-Sep-2021 Instruction Type:Patient Education Patient Instructions Indication:Smoker Start:19-Aug-2021 Instruction Type:Provider Instructions for Treatment How to Access Health Informa tion Online using Patient Portal and [employer]rd [employer] Apps Indication:Smoker Start:19-Aug-2021 Instruction Type:Patient Education Patient Instructions Indication:Smoker Start:22-Jul-2021 Instruction Type:Provider Instructions for Treatment How to Access Health Informa tion Online using Patient Portal and [employer]rd [employer] Apps Indication:Smoker Start:22-Jul-2021 Instruction Type:Patient Education Patient Instructions Indication:Smoker Start:15-Jul-2021 Instruction Type:Provider Instructions for Treatment How to Access Health Informa tion Online using Patient Portal and [employer]rd [employer] Apps Indication:Smoker Start:15-Jul-2021 Instruction Type:Patient Education Patient Instructions Indication:Smoker Start:10-Jul-2021 Instruction Type:Provider Instructions for Treatment How to Access Health Informa tion Online using Patient Portal and [employer]rd [employer] Apps Indication:Smoker Start:10-Jul-2021 Instruction Type:Patient Education Patient Instructions Indication:Smoker Start:27-May-2021 Instruction Type:Provider Instructions for Treatment How to Access Health Informa tion Online using Patient Portal and [employer]rd [employer] Apps Indication:Smoker Start:27-May-2021 Instruction Type:Patient Education [facility]; [facility] Work Phone: Instructions* Name Dates Details Patient Instructions Indication:Smoker Start:29-Jun-2023 Instruction Type:Provider Instructions for Treatment How to Access Health Informa tion Online using Patient Portal and [employer]rd [employer] Apps Indication:Smoker Start:29-Jun-2023 Instruction Type:Patient Education Patient Instructions Indication:Non-smoker Start:10-Jun-2023 Instruction Type:Provider Instructions for Treatment How to Access Health Informa tion Online using Patient Portal and [employer] Apps Indication:Non-smoker Start:10-Jun-2023 Instruction Type:Patient Education Patient Instructions Indication:Non-smoker Start:08-Apr-2023 Instruction Type:Provider Instructions for Treatment How to Access Health Informa tion Online using Patient Portal and [employer]rd [employer] Apps Indication:Non-smoker Start:08-Apr-2023 Instruction Type:Patient Education cardiovascular counseling Indication:Atrial fibrillation with RVR Start:10-Mar-2023 Instruction Type:Provider Instructions for Treatment Patient Instructions Indication:Non-smoker Start:10-Mar-2023 Instruction Type:Provider Instructions for Treatment How to Access Health Informa tion Online using Patient Portal and [employer]rd [employer] Apps Indication:Non-smoker Start:10-Mar-2023 Instruction Type:Patient Education Patient Instructions Indication:BMI 25.0-25.9,adult Start:10-Feb-2023 Instruction Type:Provider Instructions for Treatment How to Access Health Informa tion Online using Patient Portal and [employer]rd [employer] Apps Indication:BMI 25.0-25.9,adult Start:10-Feb-2023 Instruction Type:Patient Education Patient Instructions Indication:BMI 25.0-25.9,adult Start:13-Jan-2023 Instruction Type:Provider Instructions for Treatment How to Access Health Informa tion Online using Patient Portal and [employer] Apps Indication:BMI 25.0-25.9,adult Start:13-Jan-2023 Instruction Type:Patient Education Patient Instructions Indication:BMI 24.0-24.9, adult Start:02-Dec-2022 Instruction Type:Provider Instructions for Treatment How to Access Health Informa tion Online using Patient Portal and [employer] Apps Indication:BMI 24.0-24.9, adult Start:02-Dec-2022 Instruction Type:Patient Education Patient Instructions Indication:Non-smoker Start:26-Nov-2022 Instruction Type:Provider Instructions for Treatment How to Access Health Informa tion Online using Patient Portal and [employer] Apps Indication:Non-smoker Start:26-Nov-2022 Instruction Type:Patient Education Patient Instructions Indication:BMI 24.0-24.9, adult Start:28-Oct-2022 Instruction Type:Provider Instructions for Treatment How to Access Health Informa tion Online using Patient Portal and [employer] Apps Indication:BMI 24.0-24.9, adult Start:28-Oct-2022 Instruction Type:Patient Education Patient Instructions Indication:BMI 24.0-24.9, adult Start:03-Jun-2022 Instruction Type:Provider Instructions for Treatment How to Access Health Informa tion Online using Patient Portal and [employer] Apps Indication:BMI 24.0-24.9, adult Start:03-Jun-2022 Instruction Type:Patient Education Patient Instructions Indication:Non-smoker Start:01-Mar-2022 Instruction Type:Provider Instructions for Treatment How to Access Health Informa tion Online using Patient Portal and [employer] Apps Indication:Non-smoker Start:01-Mar-2022 Instruction Type:Patient Education Patient Instructions Indication:Non-smoker Start:11-Feb-2022 Instruction Type:Provider Instructions for Treatment How to Access Health Informa tion Online using Patient Portal and [employer] Apps Indication:Non-smoker Start:11-Feb-2022 Instruction Type:Patient Education How to Access Health Informa tion Online using Patient Portal and [employer] Apps Indication:Non-smoker Start:11-Feb-2022 Instruction Type:Patient Education Patient Instructions Indication:BMI 27.0-27.9,adult Start:20-Jan-2022 Instruction Type:Provider Instructions for Treatment How to Access Health Informa tion Online using Patient Portal and [employer] Apps Indication:BMI 27.0-27.9,adult Start:20-Jan-2022 Instruction Type:Patient Education Patient Instructions Indication:Smoker Start:21-Dec-2021 Instruction Type:Provider Instructions for Treatment How to Access Health Informa tion Online using Patient Portal and [employer]rd [employer] Apps Indication:Smoker Start:21-Dec-2021 Instruction Type:Patient Education Patient Instructions Indication:Laceration of skin of eyebrow Start:08-Dec-2021 Instruction Type:Provider Instructions for Treatment How to Access Health Informa tion Online using Patient Portal and [employer] Apps Indication:Laceration of skin of eyebrow Start:08-Dec-2021 Instruction Type:Patient Education Patient Instructions Indication:DM (diabetes mellitus), type 2, uncontrolled Start:27-Nov-2021 Instruction Type:Provider Instructions for Treatment How to Access Health Informa tion Online using Patient Portal and [employer] Apps Indication:DM (diabetes mellitus), type 2, uncontrolled Start:27-Nov-2021 Instruction Type:Patient Education Patient Instructions Indication:Smoker Start:30-Oct-2021 Instruction Type:Provider Instructions for Treatment How to Access Health Informa tion Online using Patient Portal and [employer] Apps Indication:Smoker Start:30-Oct-2021 Instruction Type:Patient Education Patient Instructions Indication:Smoker Start:14-Oct-2021 Instruction Type:Provider Instructions for Treatment How to Access Health Informa tion Online using Patient Portal and [employer] Apps Indication:Smoker Start:14-Oct-2021 Instruction Type:Patient Education Patient Instructions Indication:Smoker Start:05-Oct-2021 Instruction Type:Provider Instructions for Treatment How to Access Health Informa tion Online using Patient Portal and [employer] Apps Indication:Smoker Start:05-Oct-2021 Instruction Type:Patient Education Patient Instructions Indication:DM (diabetes mellitus), type 2, uncontrolled Start:30-Sep-2021 Instruction Type:Provider Instructions for Treatment How to Access Health Informa tion Online using Patient Portal and [employer] Apps Indication:Smoker Start:30-Sep-2021 Instruction Type:Patient Education Patient Instructions Indication:Smoker Start:19-Aug-2021 Instruction Type:Provider Instructions for Treatment How to Access Health Informa tion Online using Patient Portal and [employer] Apps Indication:Smoker Start:19-Aug-2021 Instruction Type:Patient Education Patient Instructions Indication:Smoker Start:22-Jul-2021 Instruction Type:Provider Instructions for Treatment How to Access Health Informa tion Online using Patient Portal and [employer] Apps Indication:Smoker Start:22-Jul-2021 Instruction Type:Patient Education Patient Instructions Indication:Smoker Start:15-Jul-2021 Instruction Type:Provider Instructions for Treatment How to Access Health Informa tion Online using Patient Portal and [employer] Apps Indication:Smoker Start:15-Jul-2021 Instruction Type:Patient Education Patient Instructions Indication:Smoker Start:10-Jul-2021 Instruction Type:Provider Instructions for Treatment How to Access Health Informa tion Online using Patient Portal and [employer] Apps Indication:Smoker Start:10-Jul-2021 Instruction Type:Patient Education Patient Instructions Indication:Smoker Start:27-May-2021 Instruction Type:Provider Instructions for Treatment How to Access Health Informa tion Online using Patient Portal and [employer] Apps Indication:Smoker Start:27-May-2021 Instruction Type:Patient Education [facility]; [facility] Work Phone: Instructions* Name Dates Details Patient Instructions Indication:Smoker Start:29-Jun-2023 Instruction Type:Provider Instructions for Treatment How to Access Health Informa tion Online using Patient Portal and [employer]rd [employer] Apps Indication:Smoker Start:29-Jun-2023 Instruction Type:Patient Education Patient Instructions Indication:Non-smoker Start:10-Jun-2023 Instruction Type:Provider Instructions for Treatment How to Access Health Informa tion Online using Patient Portal and [employer] Apps Indication:Non-smoker Start:10-Jun-2023 Instruction Type:Patient Education Patient Instructions Indication:Non-smoker Start:08-Apr-2023 Instruction Type:Provider Instructions for Treatment How to Access Health Informa tion Online using Patient Portal and [employer] Apps Indication:Non-smoker Start:08-Apr-2023 Instruction Type:Patient Education cardiovascular counseling Indication:Atrial fibrillation with RVR Start:10-Mar-2023 Instruction Type:Provider Instructions for Treatment Patient Instructions Indication:Non-smoker Start:10-Mar-2023 Instruction Type:Provider Instructions for Treatment How to Access Health Informa tion Online using Patient Portal and [employer] Apps Indication:Non-smoker Start:10-Mar-2023 Instruction Type:Patient Education Patient Instructions Indication:BMI 25.0-25.9,adult Start:10-Feb-2023 Instruction Type:Provider Instructions for Treatment How to Access Health Informa tion Online using Patient Portal and [employer] Apps Indication:BMI 25.0-25.9,adult Start:10-Feb-2023 Instruction Type:Patient Education Patient Instructions Indication:BMI 25.0-25.9,adult Start:13-Jan-2023 Instruction Type:Provider Instructions for Treatment How to Access Health Informa tion Online using Patient Portal and [employer] Apps Indication:BMI 25.0-25.9,adult Start:13-Jan-2023 Instruction Type:Patient Education Patient Instructions Indication:BMI 24.0-24.9, adult Start:02-Dec-2022 Instruction Type:Provider Instructions for Treatment How to Access Health Informa tion Online using Patient Portal and [employer] Apps Indication:BMI 24.0-24.9, adult Start:02-Dec-2022 Instruction Type:Patient Education Patient Instructions Indication:Non-smoker Start:26-Nov-2022 Instruction Type:Provider Instructions for Treatment How to Access Health Informa tion Online using Patient Portal and [employer] Apps Indication:Non-smoker Start:26-Nov-2022 Instruction Type:Patient Education Patient Instructions Indication:BMI 24.0-24.9, adult Start:28-Oct-2022 Instruction Type:Provider Instructions for Treatment How to Access Health Informa tion Online using Patient Portal and [employer] Apps Indication:BMI 24.0-24.9, adult Start:28-Oct-2022 Instruction Type:Patient Education Patient Instructions Indication:BMI 24.0-24.9, adult Start:03-Jun-2022 Instruction Type:Provider Instructions for Treatment How to Access Health Informa tion Online using Patient Portal and [employer] Apps Indication:BMI 24.0-24.9, adult Start:03-Jun-2022 Instruction Type:Patient Education Patient Instructions Indication:Non-smoker Start:01-Mar-2022 Instruction Type:Provider Instructions for Treatment How to Access Health Informa tion Online using Patient Portal and [employer] Apps Indication:Non-smoker Start:01-Mar-2022 Instruction Type:Patient Education Patient Instructions Indication:Non-smoker Start:11-Feb-2022 Instruction Type:Provider Instructions for Treatment How to Access Health Informa tion Online using Patient Portal and [employer] Apps Indication:Non-smoker Start:11-Feb-2022 Instruction Type:Patient Education How to Access Health Informa tion Online using Patient Portal and [employer] Apps Indication:Non-smoker Start:11-Feb-2022 Instruction Type:Patient Education Patient Instructions Indication:BMI 27.0-27.9,adult Start:20-Jan-2022 Instruction Type:Provider Instructions for Treatment How to Access Health Informa tion Online using Patient Portal and [employer] Apps Indication:BMI 27.0-27.9,adult Start:20-Jan-2022 Instruction Type:Patient Education Patient Instructions Indication:Smoker Start:21-Dec-2021 Instruction Type:Provider Instructions for Treatment How to Access Health Informa tion Online using Patient Portal and [employer] Apps Indication:Smoker Start:21-Dec-2021 Instruction Type:Patient Education Patient Instructions Indication:Laceration of skin of eyebrow Start:08-Dec-2021 Instruction Type:Provider Instructions for Treatment How to Access Health Informa tion Online using Patient Portal and [employer] Apps Indication:Laceration of skin of eyebrow Start:08-Dec-2021 Instruction Type:Patient Education Patient Instructions Indication:DM (diabetes mellitus), type 2, uncontrolled Start:27-Nov-2021 Instruction Type:Provider Instructions for Treatment How to Access Health Informa tion Online using Patient Portal and [employer] Apps Indication:DM (diabetes mellitus), type 2, uncontrolled Start:27-Nov-2021 Instruction Type:Patient Education Patient Instructions Indication:Smoker Start:30-Oct-2021 Instruction Type:Provider Instructions for Treatment How to Access Health Informa tion Online using Patient Portal and [employer] Apps Indication:Smoker Start:30-Oct-2021 Instruction Type:Patient Education Patient Instructions Indication:Smoker Start:14-Oct-2021 Instruction Type:Provider Instructions for Treatment How to Access Health Informa tion Online using Patient Portal and [employer] Apps Indication:Smoker Start:14-Oct-2021 Instruction Type:Patient Education Patient Instructions Indication:Smoker Start:05-Oct-2021 Instruction Type:Provider Instructions for Treatment How to Access Health Informa tion Online using Patient Portal and [employer] Apps Indication:Smoker Start:05-Oct-2021 Instruction Type:Patient Education Patient Instructions Indication:DM (diabetes mellitus), type 2, uncontrolled Start:30-Sep-2021 Instruction Type:Provider Instructions for Treatment How to Access Health Informa tion Online using Patient Portal and [employer] Apps Indication:Smoker Start:30-Sep-2021 Instruction Type:Patient Education Patient Instructions Indication:Smoker Start:19-Aug-2021 Instruction Type:Provider Instructions for Treatment How to Access Health Informa tion Online using Patient Portal and [employer] Apps Indication:Smoker Start:19-Aug-2021 Instruction Type:Patient Education Patient Instructions Indication:Smoker Start:22-Jul-2021 Instruction Type:Provider Instructions for Treatment How to Access Health Informa tion Online using Patient Portal and [employer] Apps Indication:Smoker Start:22-Jul-2021 Instruction Type:Patient Education Patient Instructions Indication:Smoker Start:15-Jul-2021 Instruction Type:Provider Instructions for Treatment How to Access Health Informa tion Online using Patient Portal and [employer] Apps Indication:Smoker Start:15-Jul-2021 Instruction Type:Patient Education Patient Instructions Indication:Smoker Start:10-Jul-2021 Instruction Type:Provider Instructions for Treatment How to Access Health Informa tion Online using Patient Portal and [employer] Apps Indication:Smoker Start:10-Jul-2021 Instruction Type:Patient Education Patient Instructions Indication:Smoker Start:27-May-2021 Instruction Type:Provider Instructions for Treatment How to Access Health Informa tion Online using Patient Portal and [employer] Apps Indication:Smoker Start:27-May-2021 Instruction Type:Patient Education [facility]; [facility] Work Phone: Instructions* Name Dates Details Patient Instructions Indication:Smoker Start:29-Jun-2023 Instruction Type:Provider Instructions for Treatment How to Access Health Informa tion Online using Patient Portal and [employer] Apps Indication:Smoker Start:29-Jun-2023 Instruction Type:Patient Education Patient Instructions Indication:Non-smoker Start:10-Jun-2023 Instruction Type:Provider Instructions for Treatment How to Access Health Informa tion Online using Patient Portal and [employer] Apps Indication:Non-smoker Start:10-Jun-2023 Instruction Type:Patient Education Patient Instructions Indication:Non-smoker Start:08-Apr-2023 Instruction Type:Provider Instructions for Treatment How to Access Health Informa tion Online using Patient Portal and [employer] Apps Indication:Non-smoker Start:08-Apr-2023 Instruction Type:Patient Education cardiovascular counseling Indication:Atrial fibrillation with RVR Start:10-Mar-2023 Instruction Type:Provider Instructions for Treatment Patient Instructions Indication:Non-smoker Start:10-Mar-2023 Instruction Type:Provider Instructions for Treatment How to Access Health Informa tion Online using Patient Portal and [employer] Apps Indication:Non-smoker Start:10-Mar-2023 Instruction Type:Patient Education Patient Instructions Indication:BMI 25.0-25.9,adult Start:10-Feb-2023 Instruction Type:Provider Instructions for Treatment How to Access Health Informa tion Online using Patient Portal and [employer] Apps Indication:BMI 25.0-25.9,adult Start:10-Feb-2023 Instruction Type:Patient Education Patient Instructions Indication:BMI 25.0-25.9,adult Start:13-Jan-2023 Instruction Type:Provider Instructions for Treatment How to Access Health Informa tion Online using Patient Portal and [employer] Apps Indication:BMI 25.0-25.9,adult Start:13-Jan-2023 Instruction Type:Patient Education Patient Instructions Indication:BMI 24.0-24.9, adult Start:02-Dec-2022 Instruction Type:Provider Instructions for Treatment How to Access Health Informa tion Online using Patient Portal and [employer] Apps Indication:BMI 24.0-24.9, adult Start:02-Dec-2022 Instruction Type:Patient Education Patient Instructions Indication:Non-smoker Start:26-Nov-2022 Instruction Type:Provider Instructions for Treatment How to Access Health Informa tion Online using Patient Portal and [employer] Apps Indication:Non-smoker Start:26-Nov-2022 Instruction Type:Patient Education Patient Instructions Indication:BMI 24.0-24.9, adult Start:28-Oct-2022 Instruction Type:Provider Instructions for Treatment How to Access Health Informa tion Online using Patient Portal and [employer] Apps Indication:BMI 24.0-24.9, adult Start:28-Oct-2022 Instruction Type:Patient Education Patient Instructions Indication:BMI 24.0-24.9, adult Start:03-Jun-2022 Instruction Type:Provider Instructions for Treatment How to Access Health Informa tion Online using Patient Portal and [employer] Apps Indication:BMI 24.0-24.9, adult Start:03-Jun-2022 Instruction Type:Patient Education Patient Instructions Indication:Non-smoker Start:01-Mar-2022 Instruction Type:Provider Instructions for Treatment How to Access Health Informa tion Online using Patient Portal and [employer] Apps Indication:Non-smoker Start:01-Mar-2022 Instruction Type:Patient Education Patient Instructions Indication:Non-smoker Start:11-Feb-2022 Instruction Type:Provider Instructions for Treatment How to Access Health Informa tion Online using Patient Portal and [employer] Apps Indication:Non-smoker Start:11-Feb-2022 Instruction Type:Patient Education How to Access Health Informa tion Online using Patient Portal and [employer] Apps Indication:Non-smoker Start:11-Feb-2022 Instruction Type:Patient Education Patient Instructions Indication:BMI 27.0-27.9,adult Start:20-Jan-2022 Instruction Type:Provider Instructions for Treatment How to Access Health Informa tion Online using Patient Portal and [employer] Apps Indication:BMI 27.0-27.9,adult Start:20-Jan-2022 Instruction Type:Patient Education Patient Instructions Indication:Smoker Start:21-Dec-2021 Instruction Type:Provider Instructions for Treatment How to Access Health Informa tion Online using Patient Portal and [employer] Apps Indication:Smoker Start:21-Dec-2021 Instruction Type:Patient Education Patient Instructions Indication:Laceration of skin of eyebrow Start:08-Dec-2021 Instruction Type:Provider Instructions for Treatment How to Access Health Informa tion Online using Patient Portal and [employer]rd [employer] Apps Indication:Laceration of skin of eyebrow Start:08-Dec-2021 Instruction Type:Patient Education Patient Instructions Indication:DM (diabetes mellitus), type 2, uncontrolled Start:27-Nov-2021 Instruction Type:Provider Instructions for Treatment How to Access Health Informa tion Online using Patient Portal and [employer]rd [employer] Apps Indication:DM (diabetes mellitus), type 2, uncontrolled Start:27-Nov-2021 Instruction Type:Patient Education Patient Instructions Indication:Smoker Start:30-Oct-2021 Instruction Type:Provider Instructions for Treatment How to Access Health Informa tion Online using Patient Portal and [employer]rd [employer] Apps Indication:Smoker Start:30-Oct-2021 Instruction Type:Patient Education Patient Instructions Indication:Smoker Start:14-Oct-2021 Instruction Type:Provider Instructions for Treatment How to Access Health Informa tion Online using Patient Portal and [employer]rd [employer] Apps Indication:Smoker Start:14-Oct-2021 Instruction Type:Patient Education Patient Instructions Indication:Smoker Start:05-Oct-2021 Instruction Type:Provider Instructions for Treatment How to Access Health Informa tion Online using Patient Portal and [employer]rd [employer] Apps Indication:Smoker Start:05-Oct-2021 Instruction Type:Patient Education Patient Instructions Indication:DM (diabetes mellitus), type 2, uncontrolled Start:30-Sep-2021 Instruction Type:Provider Instructions for Treatment How to Access Health Informa tion Online using Patient Portal and [employer]rd [employer] Apps Indication:Smoker Start:30-Sep-2021 Instruction Type:Patient Education Patient Instructions Indication:Smoker Start:19-Aug-2021 Instruction Type:Provider Instructions for Treatment How to Access Health Informa tion Online using Patient Portal and [employer]rd [employer] Apps Indication:Smoker Start:19-Aug-2021 Instruction Type:Patient Education Patient Instructions Indication:Smoker Start:22-Jul-2021 Instruction Type:Provider Instructions for Treatment How to Access Health Informa tion Online using Patient Portal and [employer]rd [employer] Apps Indication:Smoker Start:22-Jul-2021 Instruction Type:Patient Education Patient Instructions Indication:Smoker Start:15-Jul-2021 Instruction Type:Provider Instructions for Treatment How to Access Health Informa tion Online using Patient Portal and [employer]rd [employer] Apps Indication:Smoker Start:15-Jul-2021 Instruction Type:Patient Education Patient Instructions Indication:Smoker Start:10-Jul-2021 Instruction Type:Provider Instructions for Treatment How to Access Health Informa tion Online using Patient Portal and [employer]rd [employer] Apps Indication:Smoker Start:10-Jul-2021 Instruction Type:Patient Education Patient Instructions Indication:Smoker Start:27-May-2021 Instruction Type:Provider Instructions for Treatment How to Access Health Informa tion Online using Patient Portal and [employer]rd [employer] Apps Indication:Smoker Start:27-May-2021 Instruction Type:Patient Education [facility]; [facility] Work Phone: Instructions* Name Dates Details Patient Instructions Indication:Smoker Start:20-Jul-2023 Instruction Type:Provider Instructions for Treatment How to Access Health Informa tion Online using Patient Portal and [employer]rd [employer] Apps Indication:Smoker Start:20-Jul-2023 Instruction Type:Patient Education Patient Instructions Indication:Smoker Start:29-Jun-2023 Instruction Type:Provider Instructions for Treatment How to Access Health Informa tion Online using Patient Portal and [employer]rd [employer] Apps Indication:Smoker Start:29-Jun-2023 Instruction Type:Patient Education Patient Instructions Indication:Non-smoker Start:10-Jun-2023 Instruction Type:Provider Instructions for Treatment How to Access Health Informa tion Online using Patient Portal and [employer]rd [employer] Apps Indication:Non-smoker Start:10-Jun-2023 Instruction Type:Patient Education Patient Instructions Indication:Non-smoker Start:08-Apr-2023 Instruction Type:Provider Instructions for Treatment How to Access Health Informa tion Online using Patient Portal and [employer]rd [employer] Apps Indication:Non-smoker Start:08-Apr-2023 Instruction Type:Patient Education cardiovascular counseling Indication:Atrial fibrillation with RVR Start:10-Mar-2023 Instruction Type:Provider Instructions for Treatment Patient Instructions Indication:Non-smoker Start:10-Mar-2023 Instruction Type:Provider Instructions for Treatment How to Access Health Informa tion Online using Patient Portal and [employer]rd [employer] Apps Indication:Non-smoker Start:10-Mar-2023 Instruction Type:Patient Education Patient Instructions Indication:BMI 25.0-25.9,adult Start:10-Feb-2023 Instruction Type:Provider Instructions for Treatment How to Access Health Informa tion Online using Patient Portal and [employer]rd [employer] Apps Indication:BMI 25.0-25.9,adult Start:10-Feb-2023 Instruction Type:Patient Education Patient Instructions Indication:BMI 25.0-25.9,adult Start:13-Jan-2023 Instruction Type:Provider Instructions for Treatment How to Access Health Informa tion Online using Patient Portal and [employer]rd [employer] Apps Indication:BMI 25.0-25.9,adult Start:13-Jan-2023 Instruction Type:Patient Education Patient Instructions Indication:BMI 24.0-24.9, adult Start:02-Dec-2022 Instruction Type:Provider Instructions for Treatment How to Access Health Informa tion Online using Patient Portal and [employer]rd [employer] Apps Indication:BMI 24.0-24.9, adult Start:02-Dec-2022 Instruction Type:Patient Education Patient Instructions Indication:Non-smoker Start:26-Nov-2022 Instruction Type:Provider Instructions for Treatment How to Access Health Informa tion Online using Patient Portal and [employer]rd [employer] Apps Indication:Non-smoker Start:26-Nov-2022 Instruction Type:Patient Education Patient Instructions Indication:BMI 24.0-24.9, adult Start:28-Oct-2022 Instruction Type:Provider Instructions for Treatment How to Access Health Informa tion Online using Patient Portal and [employer]rd [employer] Apps Indication:BMI 24.0-24.9, adult Start:28-Oct-2022 Instruction Type:Patient Education Patient Instructions Indication:BMI 24.0-24.9, adult Start:03-Jun-2022 Instruction Type:Provider Instructions for Treatment How to Access Health Informa tion Online using Patient Portal and [employer]rd [employer] Apps Indication:BMI 24.0-24.9, adult Start:03-Jun-2022 Instruction Type:Patient Education Patient Instructions Indication:Non-smoker Start:01-Mar-2022 Instruction Type:Provider Instructions for Treatment How to Access Health Informa tion Online using Patient Portal and [employer]rd [employer] Apps Indication:Non-smoker Start:01-Mar-2022 Instruction Type:Patient Education Patient Instructions Indication:Non-smoker Start:11-Feb-2022 Instruction Type:Provider Instructions for Treatment How to Access Health Informa tion Online using Patient Portal and [employer] Apps Indication:Non-smoker Start:11-Feb-2022 Instruction Type:Patient Education How to Access Health Informa tion Online using Patient Portal and [employer] Apps Indication:Non-smoker Start:11-Feb-2022 Instruction Type:Patient Education Patient Instructions Indication:BMI 27.0-27.9,adult Start:20-Jan-2022 Instruction Type:Provider Instructions for Treatment How to Access Health Informa tion Online using Patient Portal and [employer] Apps Indication:BMI 27.0-27.9,adult Start:20-Jan-2022 Instruction Type:Patient Education Patient Instructions Indication:Smoker Start:21-Dec-2021 Instruction Type:Provider Instructions for Treatment How to Access Health Informa tion Online using Patient Portal and [employer]rd [employer] Apps Indication:Smoker Start:21-Dec-2021 Instruction Type:Patient Education Patient Instructions Indication:Laceration of skin of eyebrow Start:08-Dec-2021 Instruction Type:Provider Instructions for Treatment How to Access Health Informa tion Online using Patient Portal and [employer] Apps Indication:Laceration of skin of eyebrow Start:08-Dec-2021 Instruction Type:Patient Education Patient Instructions Indication:DM (diabetes mellitus), type 2, uncontrolled Start:27-Nov-2021 Instruction Type:Provider Instructions for Treatment How to Access Health Informa tion Online using Patient Portal and [employer] Apps Indication:DM (diabetes mellitus), type 2, uncontrolled Start:27-Nov-2021 Instruction Type:Patient Education Patient Instructions Indication:Smoker Start:30-Oct-2021 Instruction Type:Provider Instructions for Treatment How to Access Health Informa tion Online using Patient Portal and [employer] Apps Indication:Smoker Start:30-Oct-2021 Instruction Type:Patient Education Patient Instructions Indication:Smoker Start:14-Oct-2021 Instruction Type:Provider Instructions for Treatment How to Access Health Informa tion Online using Patient Portal and [employer] Apps Indication:Smoker Start:14-Oct-2021 Instruction Type:Patient Education Patient Instructions Indication:Smoker Start:05-Oct-2021 Instruction Type:Provider Instructions for Treatment How to Access Health Informa tion Online using Patient Portal and [employer] Apps Indication:Smoker Start:05-Oct-2021 Instruction Type:Patient Education Patient Instructions Indication:DM (diabetes mellitus), type 2, uncontrolled Start:30-Sep-2021 Instruction Type:Provider Instructions for Treatment How to Access Health Informa tion Online using Patient Portal and [employer] Apps Indication:Smoker Start:30-Sep-2021 Instruction Type:Patient Education Patient Instructions Indication:Smoker Start:19-Aug-2021 Instruction Type:Provider Instructions for Treatment How to Access Health Informa tion Online using Patient Portal and [employer] Apps Indication:Smoker Start:19-Aug-2021 Instruction Type:Patient Education Patient Instructions Indication:Smoker Start:22-Jul-2021 Instruction Type:Provider Instructions for Treatment How to Access Health Informa tion Online using Patient Portal and [employer] Apps Indication:Smoker Start:22-Jul-2021 Instruction Type:Patient Education Patient Instructions Indication:Smoker Start:15-Jul-2021 Instruction Type:Provider Instructions for Treatment How to Access Health Informa tion Online using Patient Portal and [employer] Apps Indication:Smoker Start:15-Jul-2021 Instruction Type:Patient Education Patient Instructions Indication:Smoker Start:10-Jul-2021 Instruction Type:Provider Instructions for Treatment How to Access Health Informa tion Online using Patient Portal and [employer] Apps Indication:Smoker Start:10-Jul-2021 Instruction Type:Patient Education Patient Instructions Indication:Smoker Start:27-May-2021 Instruction Type:Provider Instructions for Treatment How to Access Health Informa tion Online using Patient Portal and [employer] Apps Indication:Smoker Start:27-May-2021 Instruction Type:Patient Education [facility]; [facility] Work Phone: Instructions* Name Dates Details Patient Instructions Indication:Smoker Start:20-Jul-2023 Instruction Type:Provider Instructions for Treatment How to Access Health Informa tion Online using Patient Portal and [employer]rd [employer] Apps Indication:Smoker Start:20-Jul-2023 Instruction Type:Patient Education Patient Instructions Indication:Smoker Start:29-Jun-2023 Instruction Type:Provider Instructions for Treatment How to Access Health Informa tion Online using Patient Portal and [employer] Apps Indication:Smoker Start:29-Jun-2023 Instruction Type:Patient Education Patient Instructions Indication:Non-smoker Start:10-Jun-2023 Instruction Type:Provider Instructions for Treatment How to Access Health Informa tion Online using Patient Portal and [employer] Apps Indication:Non-smoker Start:10-Jun-2023 Instruction Type:Patient Education Patient Instructions Indication:Non-smoker Start:08-Apr-2023 Instruction Type:Provider Instructions for Treatment How to Access Health Informa tion Online using Patient Portal and [employer] Apps Indication:Non-smoker Start:08-Apr-2023 Instruction Type:Patient Education cardiovascular counseling Indication:Atrial fibrillation with RVR Start:10-Mar-2023 Instruction Type:Provider Instructions for Treatment Patient Instructions Indication:Non-smoker Start:10-Mar-2023 Instruction Type:Provider Instructions for Treatment How to Access Health Informa tion Online using Patient Portal and [employer]rd [employer] Apps Indication:Non-smoker Start:10-Mar-2023 Instruction Type:Patient Education Patient Instructions Indication:BMI 25.0-25.9,adult Start:10-Feb-2023 Instruction Type:Provider Instructions for Treatment How to Access Health Informa tion Online using Patient Portal and [employer]rd [employer] Apps Indication:BMI 25.0-25.9,adult Start:10-Feb-2023 Instruction Type:Patient Education Patient Instructions Indication:BMI 25.0-25.9,adult Start:13-Jan-2023 Instruction Type:Provider Instructions for Treatment How to Access Health Informa tion Online using Patient Portal and [employer]rd [employer] Apps Indication:BMI 25.0-25.9,adult Start:13-Jan-2023 Instruction Type:Patient Education Patient Instructions Indication:BMI 24.0-24.9, adult Start:02-Dec-2022 Instruction Type:Provider Instructions for Treatment How to Access Health Informa tion Online using Patient Portal and [employer]rd [employer] Apps Indication:BMI 24.0-24.9, adult Start:02-Dec-2022 Instruction Type:Patient Education Patient Instructions Indication:Non-smoker Start:26-Nov-2022 Instruction Type:Provider Instructions for Treatment How to Access Health Informa tion Online using Patient Portal and [employer] Apps Indication:Non-smoker Start:26-Nov-2022 Instruction Type:Patient Education Patient Instructions Indication:BMI 24.0-24.9, adult Start:28-Oct-2022 Instruction Type:Provider Instructions for Treatment How to Access Health Informa tion Online using Patient Portal and [employer] Apps Indication:BMI 24.0-24.9, adult Start:28-Oct-2022 Instruction Type:Patient Education Patient Instructions Indication:BMI 24.0-24.9, adult Start:03-Jun-2022 Instruction Type:Provider Instructions for Treatment How to Access Health Informa tion Online using Patient Portal and [employer] Apps Indication:BMI 24.0-24.9, adult Start:03-Jun-2022 Instruction Type:Patient Education Patient Instructions Indication:Non-smoker Start:01-Mar-2022 Instruction Type:Provider Instructions for Treatment How to Access Health Informa tion Online using Patient Portal and [employer] Apps Indication:Non-smoker Start:01-Mar-2022 Instruction Type:Patient Education Patient Instructions Indication:Non-smoker Start:11-Feb-2022 Instruction Type:Provider Instructions for Treatment How to Access Health Informa tion Online using Patient Portal and [employer] Apps Indication:Non-smoker Start:11-Feb-2022 Instruction Type:Patient Education How to Access Health Informa tion Online using Patient Portal and [employer]rd [employer] Apps Indication:Non-smoker Start:11-Feb-2022 Instruction Type:Patient Education Patient Instructions Indication:BMI 27.0-27.9,adult Start:20-Jan-2022 Instruction Type:Provider Instructions for Treatment How to Access Health Informa tion Online using Patient Portal and [employer]rd [employer] Apps Indication:BMI 27.0-27.9,adult Start:20-Jan-2022 Instruction Type:Patient Education Patient Instructions Indication:Smoker Start:21-Dec-2021 Instruction Type:Provider Instructions for Treatment How to Access Health Informa tion Online using Patient Portal and [employer]rd [employer] Apps Indication:Smoker Start:21-Dec-2021 Instruction Type:Patient Education Patient Instructions Indication:Laceration of skin of eyebrow Start:08-Dec-2021 Instruction Type:Provider Instructions for Treatment How to Access Health Informa tion Online using Patient Portal and [employer]rd [employer] Apps Indication:Laceration of skin of eyebrow Start:08-Dec-2021 Instruction Type:Patient Education Patient Instructions Indication:DM (diabetes mellitus), type 2, uncontrolled Start:27-Nov-2021 Instruction Type:Provider Instructions for Treatment How to Access Health Informa tion Online using Patient Portal and [employer]rd [employer] Apps Indication:DM (diabetes mellitus), type 2, uncontrolled Start:27-Nov-2021 Instruction Type:Patient Education Patient Instructions Indication:Smoker Start:30-Oct-2021 Instruction Type:Provider Instructions for Treatment How to Access Health Informa tion Online using Patient Portal and [employer]rd [employer] Apps Indication:Smoker Start:30-Oct-2021 Instruction Type:Patient Education Patient Instructions Indication:Smoker Start:14-Oct-2021 Instruction Type:Provider Instructions for Treatment How to Access Health Informa tion Online using Patient Portal and [employer]rd [employer] Apps Indication:Smoker Start:14-Oct-2021 Instruction Type:Patient Education Patient Instructions Indication:Smoker Start:05-Oct-2021 Instruction Type:Provider Instructions for Treatment How to Access Health Informa tion Online using Patient Portal and [employer] Apps Indication:Smoker Start:05-Oct-2021 Instruction Type:Patient Education Patient Instructions Indication:DM (diabetes mellitus), type 2, uncontrolled Start:30-Sep-2021 Instruction Type:Provider Instructions for Treatment How to Access Health Informa tion Online using Patient Portal and [employer]rd [employer] Apps Indication:Smoker Start:30-Sep-2021 Instruction Type:Patient Education Patient Instructions Indication:Smoker Start:19-Aug-2021 Instruction Type:Provider Instructions for Treatment How to Access Health Informa tion Online using Patient Portal and [employer]rd [employer] Apps Indication:Smoker Start:19-Aug-2021 Instruction Type:Patient Education Patient Instructions Indication:Smoker Start:22-Jul-2021 Instruction Type:Provider Instructions for Treatment How to Access Health Informa tion Online using Patient Portal and [employer]rd [employer] Apps Indication:Smoker Start:22-Jul-2021 Instruction Type:Patient Education Patient Instructions Indication:Smoker Start:15-Jul-2021 Instruction Type:Provider Instructions for Treatment How to Access Health Informa tion Online using Patient Portal and [employer]rd [employer] Apps Indication:Smoker Start:15-Jul-2021 Instruction Type:Patient Education Patient Instructions Indication:Smoker Start:10-Jul-2021 Instruction Type:Provider Instructions for Treatment How to Access Health Informa tion Online using Patient Portal and [employer]rd [employer] Apps Indication:Smoker Start:10-Jul-2021 Instruction Type:Patient Education Patient Instructions Indication:Smoker Start:27-May-2021 Instruction Type:Provider Instructions for Treatment How to Access Health Informa tion Online using Patient Portal and [employer]rd [employer] Apps Indication:Smoker Start:27-May-2021 Instruction Type:Patient Education [facility]; [facility] Work Phone: Instructions* Name Dates Details Patient Instructions Indication:Acute cystitis with hematuria Start:04-Aug-2023 Instruction Type:Provider Instructions for Treatment How to Access Health Informa tion Online using Patient Portal and [employer]rd [employer] Apps Indication:Acute cystitis with hematuria Start:04-Aug-2023 Instruction Type:Patient Education Patient Instructions Indication:Smoker Start:20-Jul-2023 Instruction Type:Provider Instructions for Treatment How to Access Health Informa tion Online using Patient Portal and [employer]rd [employer] Apps Indication:Smoker Start:20-Jul-2023 Instruction Type:Patient Education Patient Instructions Indication:Smoker Start:29-Jun-2023 Instruction Type:Provider Instructions for Treatment How to Access Health Informa tion Online using Patient Portal and [employer]rd [employer] Apps Indication:Smoker Start:29-Jun-2023 Instruction Type:Patient Education Patient Instructions Indication:Non-smoker Start:10-Jun-2023 Instruction Type:Provider Instructions for Treatment How to Access Health Informa tion Online using Patient Portal and [employer]rd [employer] Apps Indication:Non-smoker Start:10-Jun-2023 Instruction Type:Patient Education Patient Instructions Indication:Non-smoker Start:08-Apr-2023 Instruction Type:Provider Instructions for Treatment How to Access Health Informa tion Online using Patient Portal and [employer]rd [employer] Apps Indication:Non-smoker Start:08-Apr-2023 Instruction Type:Patient Education cardiovascular counseling Indication:Atrial fibrillation with RVR Start:10-Mar-2023 Instruction Type:Provider Instructions for Treatment Patient Instructions Indication:Non-smoker Start:10-Mar-2023 Instruction Type:Provider Instructions for Treatment How to Access Health Informa tion Online using Patient Portal and [employer]rd [employer] Apps Indication:Non-smoker Start:10-Mar-2023 Instruction Type:Patient Education Patient Instructions Indication:BMI 25.0-25.9,adult Start:10-Feb-2023 Instruction Type:Provider Instructions for Treatment How to Access Health Informa tion Online using Patient Portal and [employer]rd [employer] Apps Indication:BMI 25.0-25.9,adult Start:10-Feb-2023 Instruction Type:Patient Education Patient Instructions Indication:BMI 25.0-25.9,adult Start:13-Jan-2023 Instruction Type:Provider Instructions for Treatment How to Access Health Informa tion Online using Patient Portal and [employer]rd [employer] Apps Indication:BMI 25.0-25.9,adult Start:13-Jan-2023 Instruction Type:Patient Education Patient Instructions Indication:BMI 24.0-24.9, adult Start:02-Dec-2022 Instruction Type:Provider Instructions for Treatment How to Access Health Informa tion Online using Patient Portal and [employer]rd [employer] Apps Indication:BMI 24.0-24.9, adult Start:02-Dec-2022 Instruction Type:Patient Education Patient Instructions Indication:Non-smoker Start:26-Nov-2022 Instruction Type:Provider Instructions for Treatment How to Access Health Informa tion Online using Patient Portal and [employer] Apps Indication:Non-smoker Start:26-Nov-2022 Instruction Type:Patient Education Patient Instructions Indication:BMI 24.0-24.9, adult Start:28-Oct-2022 Instruction Type:Provider Instructions for Treatment How to Access Health Informa tion Online using Patient Portal and [employer] Apps Indication:BMI 24.0-24.9, adult Start:28-Oct-2022 Instruction Type:Patient Education Patient Instructions Indication:BMI 24.0-24.9, adult Start:03-Jun-2022 Instruction Type:Provider Instructions for Treatment How to Access Health Informa tion Online using Patient Portal and [employer]rd [employer] Apps Indication:BMI 24.0-24.9, adult Start:03-Jun-2022 Instruction Type:Patient Education Patient Instructions Indication:Non-smoker Start:01-Mar-2022 Instruction Type:Provider Instructions for Treatment How to Access Health Informa tion Online using Patient Portal and [employer]rd [employer] Apps Indication:Non-smoker Start:01-Mar-2022 Instruction Type:Patient Education Patient Instructions Indication:Non-smoker Start:11-Feb-2022 Instruction Type:Provider Instructions for Treatment How to Access Health Informa tion Online using Patient Portal and [employer] Apps Indication:Non-smoker Start:11-Feb-2022 Instruction Type:Patient Education How to Access Health Informa tion Online using Patient Portal and [employer] Apps Indication:Non-smoker Start:11-Feb-2022 Instruction Type:Patient Education Patient Instructions Indication:BMI 27.0-27.9,adult Start:20-Jan-2022 Instruction Type:Provider Instructions for Treatment How to Access Health Informa tion Online using Patient Portal and [employer]rd [employer] Apps Indication:BMI 27.0-27.9,adult Start:20-Jan-2022 Instruction Type:Patient Education Patient Instructions Indication:Smoker Start:21-Dec-2021 Instruction Type:Provider Instructions for Treatment How to Access Health Informa tion Online using Patient Portal and [employer] Apps Indication:Smoker Start:21-Dec-2021 Instruction Type:Patient Education Patient Instructions Indication:Laceration of skin of eyebrow Start:08-Dec-2021 Instruction Type:Provider Instructions for Treatment How to Access Health Informa tion Online using Patient Portal and 3rd [employer] Apps Indication:Laceration of skin of eyebrow Start:08-Dec-2021 Instruction Type:Patient Education Patient Instructions Indication:DM (diabetes mellitus), type 2, uncontrolled Start:27-Nov-2021 Instruction Type:Provider Instructions for Treatment How to Access Health Informa tion Online using Patient Portal and 3rd [employer] Apps Indication:DM (diabetes mellitus), type 2, uncontrolled Start:27-Nov-2021 Instruction Type:Patient Education Patient Instructions Indication:Smoker Start:30-Oct-2021 Instruction Type:Provider Instructions for Treatment How to Access Health Informa tion Online using Patient Portal and 3rd [employer] Apps Indication:Smoker Start:30-Oct-2021 Instruction Type:Patient Education Patient Instructions Indication:Smoker Start:14-Oct-2021 Instruction Type:Provider Instructions for Treatment How to Access Health Informa tion Online using Patient Portal and 3rd [employer] Apps Indication:Smoker Start:14-Oct-2021 Instruction Type:Patient Education Patient Instructions Indication:Smoker Start:05-Oct-2021 Instruction Type:Provider Instructions for Treatment How to Access Health Informa tion Online using Patient Portal and 3rd [employer] Apps Indication:Smoker Start:05-Oct-2021 Instruction Type:Patient Education Patient Instructions Indication:DM (diabetes mellitus), type 2, uncontrolled Start:30-Sep-2021 Instruction Type:Provider Instructions for Treatment How to Access Health Informa tion Online using Patient Portal and 3rd [employer] Apps Indication:Smoker Start:30-Sep-2021 Instruction Type:Patient Education Patient Instructions Indication:Smoker Start:19-Aug-2021 Instruction Type:Provider Instructions for Treatment How to Access Health Informa tion Online using Patient Portal and 3rd [employer] Apps Indication:Smoker Start:19-Aug-2021 Instruction Type:Patient Education Patient Instructions Indication:Smoker Start:22-Jul-2021 Instruction Type:Provider Instructions for Treatment How to Access Health Informa tion Online using Patient Portal and 3rd [employer] Apps Indication:Smoker Start:22-Jul-2021 Instruction Type:Patient Education Patient Instructions Indication:Smoker Start:15-Jul-2021 Instruction Type:Provider Instructions for Treatment How to Access Health Informa tion Online using Patient Portal and 3rd [employer] Apps Indication:Smoker Start:15-Jul-2021 Instruction Type:Patient Education Patient Instructions Indication:Smoker Start:10-Jul-2021 Instruction Type:Provider Instructions for Treatment How to Access Health Informa tion Online using Patient Portal and 3rd [employer] Apps Indication:Smoker Start:10-Jul-2021 Instruction Type:Patient Education Patient Instructions Indication:Smoker Start:27-May-2021 Instruction Type:Provider Instructions for Treatment How to Access Health Informa tion Online using Patient Portal and 3rd [employer] Apps Indication:Smoker Start:27-May-2021 Instruction Type:Patient Education [facility] Work Phone: reason for referral (narrative)No reason for referral [facility] Work Phone: Chief Complaint and Reason for Visit Chief Complaint XRAY ELEVATED D DIMER ACUTE HYPOXIC RESPIRATORY FAILURE/AECOPD SOB, low O2 sats ACUTE HYPOXIC RESPIRATORY FAILURE/AECOPD COMPRESSION FRACTURE, THORACIC general illness DKA, THANIA, ENCEPHALOPATHY DKA, THANIA, ENCEPHALOPATHY DKA, THANIA, ENCEPHALOPATHY DKA, THANIA, ENCEPHALOPATHY DKA, THANIA, ENCEPHALOPATHY DKA, THANIA, ENCEPHALOPATHY DKA, THANIA, ENCEPHALOPATHY DKA, THANIA, ENCEPHALOPATHY fall, head injury, laceration Shortness of breath ELEVATED DDIMER DKA DKA, ENCEPHALOPATHY Reason for Visit COPD with acute exac erbation Leukocytosis THANIA (acute kidney injury) DKA (diabetic ketoacidoses) Encephalopathy acute THANIA (acute kidney injury) DKA (diabetic ketoacidoses) Encephalopathy acute Chief Complaint ACUTE HYPOXIC RESPIR ATORY FAILURE/AECOPD SOB, low O2 sats ACUTE HYPOXIC RESPIRATORY FAILURE/AECOPD COMPRESSION FRACTURE, THORACIC general illness DKA, THANIA, ENCEPHALOPATHY DKA, THANIA, ENCEPHALOPATHY DKA, THANAI, ENCEPHALOPATHY DKA, THANIA, ENCEPHALOPATHY DKA, THANIA, ENCEPHALOPATHY DKA, THANIA, ENCEPHALOPATHY DKA, THANIA, ENCEPHALOPATHY DKA, THANIA, ENCEPHALOPATHY fall, head injury, laceration Shortness of breath ELEVATED DDIMER DKA DKA, ENCEPHALOPATHY DKA DKA Reason for Visit COPD with acute exac erbation Leukocytosis THANIA (acute kidney injury) DKA (diabetic ketoacidoses) Encephalopathy acute THANIA (acute kidney injury) DKA (diabetic ketoacidoses) Encephalopathy acute Chief Complaint ACUTE HYPOXIC RESPIR ATORY FAILURE/AECOPD SOB, low O2 sats ACUTE HYPOXIC RESPIRATORY FAILURE/AECOPD COMPRESSION FRACTURE, THORACIC general illness DKA, THANIA, ENCEPHALOPATHY DKA, THANIA, ENCEPHALOPATHY DKA, THANIA, ENCEPHALOPATHY DKA, THANIA, ENCEPHALOPATHY DKA, THANIA, ENCEPHALOPATHY DKA, THANIA, ENCEPHALOPATHY DKA, THANIA, ENCEPHALOPATHY DKA, THANIA, ENCEPHALOPATHY fall, head injury, laceration Shortness of breath ELEVATED DDIMER DKA DKA, ENCEPHALOPATHY DKA DKA DKA Reason for Visit COPD with acute exac erbation Leukocytosis THANIA (acute kidney injury) DKA (diabetic ketoacidoses) Encephalopathy acute THANIA (acute kidney injury) DKA (diabetic ketoacidoses) Encephalopathy acute Chief Complaint ACUTE HYPOXIC RESPIR ATORY FAILURE/AECOPD SOB, low O2 sats ACUTE HYPOXIC RESPIRATORY FAILURE/AECOPD COMPRESSION FRACTURE, THORACIC general illness DKA, THANIA, ENCEPHALOPATHY DKA, THANIA, ENCEPHALOPATHY DKA, THANIA, ENCEPHALOPATHY DKA, THANIA, ENCEPHALOPATHY DKA, THANIA, ENCEPHALOPATHY DKA, THANIA, ENCEPHALOPATHY DKA, THANIA, ENCEPHALOPATHY DKA, THANIA, ENCEPHALOPATHY fall, head injury, laceration Shortness of breath ELEVATED DDIMER DKA DKA, ENCEPHALOPATHY DKA DKA DKA DKA DKA Reason for Visit COPD with acute exac erbation Leukocytosis THANIA (acute kidney injury) DKA (diabetic ketoacidoses) Encephalopathy acute THANIA (acute kidney injury) DKA (diabetic ketoacidoses) Encephalopathy acute Chief Complaint COMPRESSION FRACTURE , THORACIC general illness DKA, THANIA, ENCEPHALOPATHY DKA, THANIA, ENCEPHALOPATHY DKA, THANIA, ENCEPHALOPATHY DKA, THANIA, ENCEPHALOPATHY DKA, THANIA, ENCEPHALOPATHY DKA, THANIA, ENCEPHALOPATHY DKA, THANIA, ENCEPHALOPATHY DKA, THANIA, ENCEPHALOPATHY fall, head injury, laceration Shortness of breath ELEVATED DDIMER DKA DKA, ENCEPHALOPATHY DKA DKA DKA DKA DKA DKA HYPERGLYCEMIA/THANIA Reason for Visit THANIA (acute kidney in [facility]) DKA (diabetic ketoacidoses) Encephalopathy acute THANIA (acute kidney injury) DKA (diabetic ketoacidoses) Encephalopathy acute THANIA (acute kidney injury) DKA (diabetic ketoacidoses) Encephalopathy acute Hyperglycemia due to diabetes mellitus Chief Complaint COMPRESSION FRACTURE , THORACIC general illness DKA, THANIA, ENCEPHALOPATHY DKA, THANIA, ENCEPHALOPATHY DKA, THANIA, ENCEPHALOPATHY DKA, THANIA, ENCEPHALOPATHY DKA, THANIA, ENCEPHALOPATHY DKA, THANIA, ENCEPHALOPATHY DKA, THANIA, ENCEPHALOPATHY DKA, THANIA, ENCEPHALOPATHY fall, head injury, laceration Shortness of breath ELEVATED DDIMER DKA DKA, ENCEPHALOPATHY DKA DKA DKA DKA DKA DKA HYPERGLYCEMIA/THANIA HYPERGLYCEMIA/THANIA HYPERGLYCEMIA/THANIA HYPERGLYCEMIA/THANIA HYPERGLYCEMIA/THANIA HYPERGLYCEMIA/THANIA LEG SWELLING Reason for Visit [facility] DKA (diabetic ketoacidoses) Encephalopathy acute THANIA (acute kidney injury) DKA (diabetic ketoacidoses) Encephalopathy acute THANIA (acute kidney injury) Bacteriuria DKA (diabetic ketoacidoses) Encephalopathy acute Hyperglycemia due to diabetes mellitus Tachycardia Chief Complaint Shortness of breath ELEVATED DDIMER DKA DKA, ENCEPHALOPATHY DKA DKA DKA DKA DKA DKA HYPERGLYCEMIA/THANIA HYPERGLYCEMIA/THANIA HYPERGLYCEMIA/THANIA HYPERGLYCEMIA/THANIA HYPERGLYCEMIA/THANIA HYPERGLYCEMIA/THANIA LEG SWELLING OSTEO/DM/THYROID-NEEDS NPP Reason for Visit [facility] DKA (diabetic ketoacidoses) Encephalopathy acute THANIA (acute kidney injury) Bacteriuria DKA (diabetic ketoacidoses) Encephalopathy acute Hyperglycemia due to diabetes mellitus Tachycardia Diabetes 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 Osteopenia Chief Complaint HYPERGLYCEMIA/THANIA HYPERGLYCEMIA/THANIA HYPERGLYCEMIA/THANIA HYPERGLYCEMIA/THANIA HYPERGLYCEMIA/THANIA HYPERGLYCEMIA/THANIA LEG SWELLING OSTEO/DM/THYROID-NEEDS NPP 1 M FU X-Rays SOB HX BLOOD CLOT IN LUNGS PE STAT R/L PNEUMONIA Reason for Visit THANIA ([facility]) Bacteriuria DKA (diabetic ketoacidoses) Encephalopathy acute Hyperglycemia due to diabetes mellitus Tachycardia Diabetes 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 Osteopenia Diabetes 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 Osteopenia Bilateral pneumonia Delirium due to another medical condition Hypoxemia Nausea and vomiting COPD exacerbation Chief Complaint HYPERGLYCEMIA/THANIA HYPERGLYCEMIA/THANIA HYPERGLYCEMIA/THANIA HYPERGLYCEMIA/THANIA LEG SWELLING OSTEO/DM/THYROID-NEEDS NPP 1 M FU X-Rays SOB HX BLOOD CLOT IN LUNGS PE STAT R/L PNEUMONIA R/L PNEUMONIA R/L PNEUMONIA R/L PNEUMONIA Reason for Visit TAHNIA [facility] Bacteriuria DKA (diabetic ketoacidoses) Encephalopathy acute Hyperglycemia due to diabetes mellitus Tachycardia Diabetes 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 Osteopenia Diabetes 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 Osteopenia Bilateral pneumonia Delirium due to another medical condition Hypoxemia Nausea and vomiting COPD exacerbation Chief Complaint OSTEO/DM/THYROID-NEE DS NPP 1 M FU X-Rays SOB HX BLOOD CLOT IN LUNGS PE STAT R/L PNEUMONIA R/L PNEUMONIA R/L PNEUMONIA R/L PNEUMONIA 2 M FU E ORDERS Reason for Visit Diabetes 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 Osteopenia Diabetes 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 Osteopenia Bilateral pneumonia Hypoxemia Delirium due to another medical condition Nausea and vomiting Diabetes 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 Osteopenia Chief Complaint 1 M FU X-Rays SOB HX BLOOD CLOT IN LUNGS PE STAT R/L PNEUMONIA R/L PNEUMONIA R/L PNEUMONIA R/L PNEUMONIA 2 M FU E ORDERS HYPERGLYCEMIA, ACUTE CYSTITIS HYPERGLYCEMIA, ACUTE CYSTITIS Reason for Visit Diabetes 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 Osteopenia Bilateral pneumonia Hypoxemia Delirium due to another medical condition Nausea and vomiting Diabetes 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 Osteopenia Hyperglycemia Chief Complaint 1 M FU X-Rays SOB HX BLOOD CLOT IN LUNGS PE STAT R/L PNEUMONIA R/L PNEUMONIA R/L PNEUMONIA R/L PNEUMONIA 2 M FU E ORDERS HYPERGLYCEMIA, ACUTE CYSTITIS HYPERGLYCEMIA, ACUTE CYSTITIS HYPERGLYCEMIA, ACUTE CYSTITIS HYPERGLYCEMIA, ACUTE CYSTITIS Reason for Visit Diabetes 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 Osteopenia Bilateral pneumonia Hypoxemia Delirium due to another medical condition Nausea and vomiting Diabetes 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 Osteopenia Hyperglycemia Chief Complaint 2 M FU E ORDERS HYPERGLYCEMIA, ACUTE CYSTITIS HYPERGLYCEMIA, ACUTE CYSTITIS HYPERGLYCEMIA, ACUTE CYSTITIS HYPERGLYCEMIA, ACUTE CYSTITIS 2 M FU DVT, SCREENING 6 wk FU SEPSIS, UTI, PNEUMONIA general illness SEPSIS, UTI, PNEUMONIA SEPSIS, UTI, PNEUMONIA SEPSIS, UTI, PNEUMONIA Reason for Visit Hypothyroidism due t o Pepe's thyroiditis Hyperglycemia 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 Diabetes mellitus type 1 Osteoporosis 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 Acute metabolic encephalopathy Acute UTI Pneumonia Sepsis Chief Complaint DVT, SCREENING 6 wk FU SEPSIS, UTI, PNEUMONIA general illness SEPSIS, UTI, PNEUMONIA SEPSIS, UTI, PNEUMONIA TACHY SEPSIS, UTI, PNEUMONIA SEPSIS, UTI, PNEUMONIA XRAY 4 M FU E ORDERS Reason for Visit Diabetes mellitus ty pe 1 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 Osteoporosis Acute metabolic encephalopathy Sepsis Diabetes mellitus type 1 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 Osteoporosis Chief Complaint XRAY 4 M FU E ORDERS RECLAST Reason for Visit Diabetes mellitus ty pe 1 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 Osteoporosis Chief Complaint 4 M FU E ORDERS RECLAST SCREENING Reason for Visit Diabetes mellitus ty pe 1 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 Osteoporosis Chief Complaint 4 M FU E ORDERS RECLAST SCREENING 3 M FU ACUTE UTI Reason for Visit Diabetes mellitus ty pe 1 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 Osteoporosis Diabetes mellitus type 1 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 Osteoporosis Acute UTI Creatinine elevation Dehydration Generalized weakness Inability to walk Chief Complaint RECLAST SCREENING 3 M FU ACUTE UTI ACUTE UTI Reason for Visit Diabetes mellitus ty pe 1 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 Osteoporosis Acute UTI Creatinine elevation Dehydration Generalized weakness Inability to walk Chief Complaint RECLAST SCREENING 3 M FU ACUTE UTI ACUTE UTI ACUTE UTI Reason for Visit Diabetes mellitus ty pe 1 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 Osteoporosis Acute UTI Creatinine elevation Dehydration Chief Complaint 3 M FU ACUTE UTI ACUTE UTI ACUTE UTI Reason for Visit Diabetes mellitus ty pe 1 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 Osteoporosis Acute UTI Creatinine elevation Dehydration Chief Complaint 3 M FU 3 M FU uti Reason for Visit Diabetes mellitus ty pe 1 Hypertension Hypothyroidism Diabetes mellitus type 1 Hypertension Hypothyroidism Osteoporosis Overweight Chief Complaint Admit Date 2 M FU September 05, 2024 2:21pm SEPSIS 2/2 UTI September 10, 2024 6:50pm SEPSIS 2/2 UTI September 10, 2024 7:04pm SEPSIS 2/2 UTI September 11, 2024 7:07am SEPSIS 2/2 UTI September 11, 2024 9:17am SEPSIS 2/2 UTI September 12, 2024 8:57am SEPSIS 2/2 UTI September 13, 2024 11:10am SEPSIS, UTI September 13, 2024 6:40pm fall September 17, 2024 4:36am fall September 17, 2024 6:40am CAT SCAN HEAD September 18, 2024 7:01pm SEPSIS, UTI September 19, 2024 8:22am LAB WORK October 19, 2024 5:00am 3 M FU December 05, 2024 2:13pm EORDERS December 18, 2024 10:12am Reason for Visit Admit Date Diabetes mellitus type 1 September 05, 2024 2:21pm Hypertension September 05, 2024 2:21pm Hypothyroidism September 05, 2024 2:21pm Overweight September 05, 2024 2:21pm Risk for falls September 05, 2024 2:21pm Debility November 18th, 2024 6:50pm Leukocytosis September 10, 2024 6:50pm UTI (urinary tract infection) August [id number] 6:50pm THANIA (acute kidney injury) September 10, 2024 6:50pm Sepsis September 10, 2024 6:50pm Bacteremia due to Gram-negative bacteria September 10, 2024 6:50pm Alzheimer disease September 13, 2024 6:40pm Atrial fibrillation September 13, 2024 6:40pm Debility September 13, 2024 6:40pm GERD (gastroesophageal reflux disease) N ov2023 6:40pm HLD (hyperlipidemia) September 13, 2024 6:40pm Hx of iron deficiency September 13 6:40pm Iron deficiency anemia September 13 6:40pm Overactive bladder September 13, 2024 6:40pm Vitamin D deficiency September 13, 2024 6:40pm Weakness September 13, 2024 6:40pm COPD (chronic obstructive pulmonary dise ase) September 13, 2024 6:40pm Diabetes mellitus type 1 September 13, 2024 6:40pm Hypertension September 13, 2024 6:40pm Hypothyroidism September 13, 2024 6:40pm Acute renal failure September 13, 2024 6:40pm THANIA (acute kidney injury) September 13, 2024 6:40pm Hyponatremia September 13, 2024 6:40pm Sepsis September 13, 2024 6:40pm Vulvovaginitis due to Evette August 252023 6:40pm Bacteremia due to Gram-negative bacteria September 13, 2024 6:40pm UTI (urinary tract infection) August 252023 6:40pm Atrial fibrillation September 18, 2024 4:10pm Iron deficiency anemia September 18 4:10pm Diabetes mellitus type 1 December 05, 2024 2:13pm Hypertension December 05, 2024 2:13pm Hypothyroidism December 05, 2024 2:13pm Osteoporosis December 05, 2024 2:13pm Overweight December 05, 2024 2:13pm Chief Complaint Admit Date 3 M FU December 05, 2024 2:13pm EORDERS December 18, 2024 10:12am ELEVATED WBC&PLT/ANEMIA February 13, 2025 3:10pm MED ONC February 13, 2025 3:1 9pm 1WK LABS PRIOR February 19, 2025 12: 50pm 3 M FU March 06, 2025 2:12p m Reason for Visit Admit Date Diabetes mellitus type 1 December 05, 2024 2:13pm Hypertension December 05, 2024 2:13pm Hypothyroidism December 05, 2024 2:13pm Osteoporosis December 05, 2024 2:13pm Overweight December 05, 2024 2:13pm Anemia February 13, 2025 3:1 0pm Anemia February 19, 2025 12: 50pm Chief Complaint Admit Date ELEVATED WBC&PLT/ANEMIA February 13, 2025 3:10pm MED ONC February 13, 2025 3:1 9pm 1WK LABS PRIOR February 19, 2025 12: 50pm 3 M FU March 06, 2025 2:12p m RECLAST April 22, 2025 12:1 0pm Reason for Visit Admit Date Anemia February 13, 2025 3:1 0pm Anemia February 19, 2025 12: 50pm Diabetes mellitus type 1 March 06, 2025 2:12pm Hypertension March 06, 2025 2:12p m Hypothyroidism March 06, 2025 2:12p m Osteoporosis March 06, 2025 2:12p m Overweight March 06, 2025 2:12p m Family History No Family History Records Found Relationship Condition Age at Onset Recorded Date/T jerry father Diabetes mellitus Unknown Disorder of respiratory system Unknown Advance Directives No Advanced Directives Records Found Advance Directive Response Recorded Date/ Time Living Will Yes January 27, 2022 10:31pm Power of Analytical Scientist Yes January 27 10:31pm Advance Directive Response Recorded Date/ Time Name of Medical Power of Analytical Scientist donna page January 27, 2022 10:31pm Living Will Yes February 06, 2022 9:28am Power of Analytical Scientist Yes February 06 9:28am Advance Directive Response Recorded Date/ Time Name of Medical Power of Analytical Scientist donna page January 27, 2022 10:31pm Name of Medical Power of Analytical Scientist Logan Zamudio (son) February 06, 2022 12:54pm Living Will No February 24, 2022 2: 32pm Power of Analytical Scientist No February 24, 2022 2:32pm Advance Directive Response Recorded Date/ Time Name of Medical Power of Analytical Scientist Logan Zamudio (son) February 06, 2022 12:54pm Name of Medical Power of Analytical Scientist LOGAN ZAMUDIO (SON) June 04, 2022 11:01pm Living Will Yes June 04 11:01pm Power of Analytical Scientist Yes June 04 11:01pm Advance Directive Response Recorded Date/ Time Name of Medical Power of Analytical Scientist Logan Zamudio (son) February 06, 2022 12:54pm Name of Medical Power of Analytical Scientist Zofia Larson June 05, 2022 3:10am Living Will Yes June 05 3:10am Power of Analytical Scientist Yes June 05 3:10am Advance Directive Response Recorded Date/ Time Name of Medical Power of Analytical Scientist Don Fasig June 05, 2022 3:10am Living Will Yes June 05 3:10am Power of Analytical Scientist Yes June 05 3:10am Advance Directive Response Recorded Date/ Time Name of Medical Power of Analytical Scientist Don Fasig June 05, 2022 2:10am Living Will No September 08 7:54am Power of Analytical Scientist No September 08, 2022 7:54am Advance Directive Response Recorded Date/ Time Name of Medical Power of Analytical Scientist Don Fasig June 05, 2022 2:10am Name of Medical Power of Analytical Scientist robyn Zamudio September 08, 2022 10:58am Living Will Yes September 08 10:58am Power of Analytical Scientist Yes September 08, 2022 10:58am Advance Directive Response Recorded Date/ Time Name of Medical Power of Analytical Scientist robyn Zamudio September 08, 2022 10:58am Living Will No November 22 5:51pm Power of Analytical Scientist No November 22, 2022 5:51pm Advance Directive Response Recorded Date/ Time Living Will No November 22 6:51pm Power of Analytical Scientist No November 22, 2022 6:51pm Advance Directive Response Recorded Date/ Time Living Will No June 29 7:01pm Power of Analytical Scientist No June 29, 2023 7:01pm Advance Directive Response Recorded Date/ Time Name of Medical Power of Analytical Scientist DON SHAKIRAIG, PT BOYFRIEND June 29, 2023 11:26pm Living Will Yes June 29 023 11:26pm Power of Analytical Scientist Yes June 29, 2023 11:26pm Advance Directive Response Recorded Date/ Time Name of Medical Power of Analytical Scientist ZOFIA LARSON, PT BOYFRIEND June 29, 2023 10:26pm Living Will Yes June 29 023 10:26pm Power of Analytical Scientist Yes June 29, 2023 10:26pm Advance Directive Response Recorded Date/ Time Name of Medical Power of Analytical Scientist zofia larson January 11, 2024 9:45pm Living Will Yes January 11, 2024 9:45pm Power of Analytical Scientist Yes January 10 9:45pm Advance Directive Response Recorded Date/ Time Living Will Yes June 29, 024 10:13pm Power of Analytical Scientist Yes June 29, 2024 10:13pm Living Will Yes September 17 024 5:43am Power of Analytical Scientist Yes September 17, 2024 5:43am Name of Medical Power of Analytical Scientist Manjeet Larson September 17, 2024 5:43am Living Will Yes September 17 024 4:58pm Power of Analytical Scientist Yes September 17, 2024 4:58pm Name of Medical Power of Analytical Scientist NOT LISTED September 17, 2024 4:58pm Living Will Yes September 10 024 8:39pm Power of Analytical Scientist Yes September 10, 2024 8:39pm Name of Medical Power of Analytical Scientist MARANDA LARSON September 10, 2024 8:39pm Living Will Yes September 14 024 1:57pm Power of Analytical Scientist Yes September 14, 2024 1:57pm Name of Medical Power of Analytical Scientist Manjeet Larson, significant other September 14, 2024 1:57pm Summary Purpose Additional Source Comments Goals (unrecognized section and content) Goals may be documented in a n alternate sectionGoals may be documented in an alternate sectionGoals may be documented in an alternate sectionGoals may be documented in an alternate sectionGoals may be documented in an alternate sectionGoals may be documented in an alternate sectionGoals may be documented in an alternate sectionGoals may be documented in an alternate sectionGoals may be documented in an alternate sectionGoals may be documented in an alternate sectionGoals may be documented in an alternate sectionGoals may be documented in an alternate section Care Teams (unrecognized sec tion and content) Team Status: Active Member Role Status Dates Dr. Shena Jeffers , DO Primary Care Provider Active Team Status: Inactive Member Role Status Dates Dr. Shena Jeffers , DO Primary Care Provider, Referr ing Provider Active EDDIE Trujillo Attending Provider Active Team Status: Active Member Role Status Dates Dr. Shena Jeffers , DO Primary Care Provider Active Dr. Manjeet Ponce , DO Emergency Provider Active Dr. Eder Stovall MD Admit Provider, At tending Provider, Other Provider Active Team Status: Inactive Member Role Status Dates Dr. Shena Jeffers , DO Primary Care Provider, Referr ing Provider Active Dr. Haresh Ceja MD Attending Provider Active Team Status: Active Member Role Status Dates Dr. Shena Jeffers DO Primary Care Provider Active Dr. Dallas Chong MD Attending Provider Active Team Status: Active Member Role Status Dates Dr. Shena Jeffers DO Primary Care Provider Active Dr. Osiel Johnston MD Emergency Provider Active Dr. Dallas Paulson DO Attending Provider Active Team Status: Active Member Role Status Dates Dr. Shena Jeffers DO Primary Care Provider Active Dr. Osiel Johnston MD Emergency Provider Active Dr. Dallas Paulson DO Admit Provider, Other Provider A ctive Dr. Lizz Maravilla MD Attending Provider, Other Provid er Active Team Status: Active Member Role Status Dates Dr. Shena Jeffers DO Primary Care Provider Active Dr. Alvarado Araujo MD Attending Provider Activ e Team Status: Inactive Member Role Status Dates Dr. Shena Jeffers DO Primary Care Provider Active EDDIE Trujillo Attending Provider, Referring Pr ovider Active Team Status: Inactive Member Role Status Dates Dr. Shena Jeffers DO Primary Care Provider Active Dr. Manjeet Ponce , DO Emergency Provider Active Dr. Eder Stovall MD Admit Provider, Attending Provid er Active Team Status: Inactive Member Role Status Dates Dr. Shena Jeffers DO Primary Care Pr ovider, Attending Provider, Referring Provider Active Team Status: Inactive Member Role Status Dates Dr. Shena Jeffers DO Primary Care Provider Active Dr. Osiel Johnston MD Emergency Provider Active Dr. Dallas Paulson , DO Admit Provider, Other Provider A ctive Dr. Lizz Maravilla MD Attending Provider Active Team Status: Active Member Role Status Dates Dr. Shena Jeffers DO Primary Care Provider, Referr ing Provider Active Dr. Dallas Chong MD Attending Provider Active Team Status: Active Member Role Status Dates Dr. Shena Jeffers , DO Primary Care Provider Active Dr. Alvarado Araujo MD Attending Provider Activ e Dr. Dallas Paulson , DO Referring Provider Active Team Status: Inactive Member Role Status Dates Dr. Shena Jeffres DO Primary Care Provider Active Dr. Stephen Bee MD Attending Provider Active Team Status: Inactive Member Role Status Dates Dr. Shena Jeffers DO Primary Care Provider Active Dr. Haresh Ceja MD Attending Provider, Referring Provi adan Active Team Status: Active Member Role Status Dates Dr. Shena Jeffers DO Primary Care Provider Active Dr. Lb Serna MD Emergency Provider Active Dr. Roxanne Saxena MD Admit Provider, Attending Prov ider Active Team Status: Active Member Role Status Dates Dr. Shena Jeffers DO Primary Care Provider Active Dr. Lb Srena MD Emergency Provider Active Dr. Roxanne Saxena MD Admit Provider, Other Provider Active Dr. Hosea Smith MD Attending Provider, Other Provider Active Team Status: Inactive Member Role Status Dates Dr. Shena Jeffers DO Primary Care Provider Active Dr. Lb Serna MD Emergency Provider Active Dr. Roxanne Saxena MD Admit Provider, Other Provider Active Dr. Shanita Lagos MD Attending Provider Active Dr. Hosea Smith MD Other Provider Active Team Status: Active Member Role Status Dates Dr. Shena Jeffers DO Primary Care Provider Active Dr. Lb Serna MD Emergency Provider Active Dr. Roxanne Saxena MD Admit Provider, Other Provider Active Dr. Shanita Lagos MD Attending Provider, Other Prov ider Active Dr. Hosea Smith MD Other Provider Active Team Status: Inactive Member Role Status Dates Dr. Shena Jeffers DO Primary Care Provider Active Meme Potter NP-Andrew Attending Provider, Referring Pr ovider Active Team Status: Inactive Member Role Status Dates Dr. Shena Jeffers DO Primary Care Provider Active Dr. Esequiel Harris MD Emergency Provider Active Team Status: Inactive Member Role Status Dates Dr. Shena Jeffers DO Primary Care Provider Active Start: September 05, 2024 End: September 05, 2024 Dr. Shena Jeffers DO Referring Provider Active Start: September 05, 2024 End: September 05, 2024 EDDIE Trujillo Attending Provider Active Start: September 05, 2024 End: September 05, 2024 Team Status: Inactive Member Role Status Dates Dr. Shena Jeffers DO Primary Care Provider Active Start: September 10, 2024 End: September 13, 2024 Dr. Marcus Mcneal DO Emergency Provider Active Start: September 10, 2024 End: September 13, 2024 Dr. Roxi Velázquez , DO Admit Provider Active Start : September 10, 2024 End: September 13, 2024 Dr. Roxi Velázquez DO Other Provider Active Start : September 10, 2024 End: September 13, 2024 Dr. Ronaldo Hickey MD Attending Provider Active Start: September 10, 2024 End: September 13, 2024 Dr. Fracisco Jeffers MD Other Provider Active Start: September 10, 2024 End: September 13, 2024 Team Status: Active Member Role Status Dates Dr. Shena Jeffers DO Primary Care Provider Active Start: September 10, 2024 Dr. Marcus Mcneal DO Emergency Provider Active Start: September 10, 2024 Dr. Roxi Velázquez DO Admit Provider Active Start : September 10, 2024 Dr. Roxi Velázquez DO Attending Provider Active S tart: September 10, 2024 Dr. Roxi Velázquez DO Other Provider Active Start : September 10, 2024 Team Status: Active Member Role Status Dates Dr. Shena Jeffers DO Primary Care Provider Active Start: September 11, 2024 Dr. Marcus Mcneal DO Emergency Provider Active Start: September 11, 2024 Dr. Roxi Velázquez DO Admit Provider Active Start : September 11, 2024 Dr. Roxi Velázquez , Other Provider Active Start : September 11, 2024 Dr. David Rubin MD Other Provider Active Start: September 11, 2024 Dr. Gómez Hunter MD Other Provider Active Start: September 11, 2024 Dr. Anirudh Ga MD Other Provider Active Star t: September 11, 2024 Dr. Dominic Smith , Other Provider Active Start : September 11, 2024 Dr. Eder Serna MD Other Provider Active Sta rt: September 11, 2024 Dr. Sudarshan Herrmann MD Other Provider Active St art: September 11, 2024 Dr. Vic Yanes MD Other Provider Active S tart: September 11, 2024 Dr. Lydia Cedillo MD Other Provider Active Start: September 11, 2024 Dr. Fadi Christie MD Other Provider Active Start : September 11, 2024 Dr. Eliseo Bowling MD Other Provider Active Start: September 11, 2024 Dr. Opal Garcia MD Other Provider Active Star t: September 11, 2024 Dr. Ana Lilia Singleton MD Other Provider Active Sta rt: September 11, 2024 Dr. Yeyo Linn MD Other Provider Active Star t: September 11, 2024 Dr. Luis Hightower MD Other Provider Active St art: September 11, 2024 Dr. Mamadou Perez MD Other Provider Active Star t: September 11, 2024 Dr. Denton Richard , Other Provider Active St art: September 11, 2024 Dr. Gilberto Marsh MD Other Provider Active Start: September 11, 2024 Dr. Mahin Meredith , Other Provider Active Start: September 11, 2024 Dr. Aris Storey MD Other Provider Active Star t: September 11, 2024 Dr. Curtis Mosley MD Other Provider Active Sta rt: September 11, 2024 Dr. Ronaldo Hickey MD Attending Provider Active Start: September 11, 2024 Dr. Ronaldo Hickey MD Other Provider Active Sta rt: September 11, 2024 Team Status: Active Member Role Status Dates Dr. Shena Jeffers DO Primary Care Provider Active Start: September 11, 2024 Dr. Marcus Mcneal DO Emergency Provider Active Start: September 11, 2024 Dr. Roxi Velázquez , Admit Provider Active Start : September 11, 2024 Dr. Roxi Velázquez , DO Other Provider Active Start : September 11, 2024 Dr. David Rubin MD Other Provider Active Start: September 11, 2024 Dr. Gómez Hunter MD Other Provider Active Start: September 11, 2024 Dr. Anirudh Ga MD Other Provider Active Star t: September 11, 2024 Dr. Dominic Smith , DO Attending Provider Active S tart: September 11, 2024 Dr. Dominic Smith , DO Other Provider Active Start : September 11, 2024 Dr. Eder Serna MD Other Provider Active Sta rt: September 11, 2024 Dr. Sudarshan Herrmann MD Other Provider Active St art: September 11, 2024 Dr. Vic Yanes MD Other Provider Active S tart: September 11, 2024 Dr. Lydia Cedillo MD Other Provider Active Start: September 11, 2024 Dr. Fadi Christie MD Other Provider Active Start : September 11, 2024 Dr. Eliseo Bowling MD Other Provider Active Start: September 11, 2024 Dr. Opal Garcia MD Other Provider Active Star t: September 11, 2024 Dr. Ana Lilia Singleton MD Other Provider Active Sta rt: September 11, 2024 Dr. Yeyo Linn MD Other Provider Active Star t: September 11, 2024 Dr. Luis Hightower MD Other Provider Active St art: September 11, 2024 Dr. Mamadou Perez MD Other Provider Active Star t: September 11, 2024 Dr. Denton Richard , Other Provider Active St art: September 11, 2024 Dr. Gilberto Marsh MD Other Provider Active Start: September 11, 2024 Dr. Mahin Meredith DO Other Provider Active Start: September 11, 2024 Dr. Aris Storey MD Other Provider Active Star t: September 11, 2024 Dr. Curtis Mosley MD Other Provider Active Sta rt: September 11, 2024 Dr. Ronaldo Hickey MD Referring Provider Active Start: September 11, 2024 Dr. Ronaldo Hickey MD Other Provider Active Sta rt: September 11, 2024 Team Status: Active Member Role Status Dates Dr. Shena Jeffers , DO Primary Care Provider Active Start: September 12, 2024 Dr. Marcus Mcneal , Emergency Provider Active Start: September 12, 2024 Dr. Roxi Velázquez , Admit Provider Active Start : September 12, 2024 Dr. Roxi Velázquez DO Other Provider Active Start : September 12, 2024 Dr. Ronaldo Hickey MD Attending Provider Active Start: September 12, 2024 Dr. Ronaldo Hickey MD Other Provider Active Sta rt: September 12, 2024 Dr. Fracisco Jeffers MD Other Provider Active Start: September 12, 2024 Team Status: Active Member Role Status Dates Dr. Shena Jeffers DO Primary Care Provider Active Start: September 13, 2024 Dr. Marcus Mcneal DO Emergency Provider Active Start: September 13, 2024 Dr. Roxi Velázquez DO Admit Provider Active Start : September 13, 2024 Dr. Roxi Velázquez DO Other Provider Active Start : September 13, 2024 Dr. Ronaldo Hickey MD Attending Provider Active Start: September 13, 2024 Dr. Ronaldo Hickey MD Other Provider Active Sta rt: September 13, 2024 Dr. Fracisco Jeffers MD Other Provider Active Start: September 13, 2024 Team Status: Inactive Member Role Status Dates Dr. Shena Jeffers DO Primary Care Provider Active Start: September 13, 2024 End: October 09, 2024 Dr. Camilo Barrett MD Admit Provider Active Star t: September 13, 2024 End: October 09, 2024 Dr. Camilo Barrett MD Attending Provider Active Start: September 13, 2024 End: October 09, 2024 Dr. Fracisco Jeffers MD Other Provider Active Start: September 13, 2024 End: October 09, 2024 Team Status: Inactive Member Role Status Dates Dr. Shena Jeffers DO Primary Care Provider Active Start: September 17, 2024 End: September 17, 2024 Dr. Esequiel Harris MD Attending Provider Active Sta rt: September 17, 2024 End: September 17, 2024 Dr. Esequiel Harris MD Emergency Provider Active Sta rt: September 17, 2024 End: September 17, 2024 Team Status: Active Member Role Status Dates Dr. Shena Jeffers DO Primary Care Provider Active Start: September 17, 2024 Dr. Esequiel Harris MD Emergency Provider Active Sta rt: September 17, 2024 Dr. Eder Ramirez DO Attending Provider Active Start: September 17, 2024 Team Status: Inactive Member Role Status Dates Dr. Shena Jeffers DO Primary Care Provider Active Start: September 18, 2024 End: September 18, 2024 Dr. Shena Jeffers DO Referring Provider Active Start: September 18, 2024 End: September 18, 2024 Dr. Wang Valentin DO Attending Provider Active Start: September 18, 2024 End: September 18, 2024 Team Status: Active Member Role Status Dates Dr. Shena Jeffers DO Primary Care Provider Active Start: September 18, 2024 Dr. Shena Jeffers DO Referring Provider Active Start: September 18, 2024 Dr. Wang Valentin DO Attending Provider Active Start: September 18, 2024 Dr. Wang Valentin DO Other Provider Active St art: September 18, 2024 Team Status: Inactive Member Role Status Dates Dr. Shena Jeffers DO Primary Care Provider Active Start: September 18, 2024 End: September 18, 2024 Dr. Camilo Barrett MD Attending Provider Active Start: September 18, 2024 End: September 18, 2024 Dr. Camilo Barrett MD Referring Provider Active Start: September 18, 2024 End: September 18, 2024 Team Status: Active Member Role Status Dates Dr. Shena Jeffers DO Primary Care Provider Active Start: September 19, 2024 Dr. Camilo Barrett MD Admit Provider Active Star t: September 19, 2024 Dr. Camilo Barrett MD Other Provider Active Star t: September 19, 2024 Dr. Fracisco Jeffers MD Other Provider Active Start: September 19, 2024 Dr. Maritza Urrutia DO Attending Provider Active Start: August Team Status: Active Member Role Status Dates Dr. Shena Jeffers DO Primary Care Provider Active Start: October 19, 2024 Jm MONROE MD Attending Provider Active Start: October 19, 2024 Team Status: Inactive Member Role Status Dates Dr. Shena Jeffers DO Primary Care Provider Active Start: December 05, 2024 End: December 05, 2024 Dr. Shena Jeffers DO Referring Provider Active Start: December 05, 2024 End: December 05, 2024 EDDIE Trujillo Attending Provider Active Start: December 05, 2024 End: December 05, 2024 Team Status: Inactive Member Role Status Dates Dr. Shena Jeffers DO Primary Care Provider Active Start: December 18, 2024 End: December 18, 2024 EDDIE Trujillo Attending Provider Active Start: December 18, 2024 End: December 18, 2024 EDDIE Trujillo Referring Provider Active Start: December 18, 2024 End: December 18, 2024 Team Status: Inactive Member Role Status Dates Dr. Shena Jeffers DO Primary Care Provider Active Start: February 13, 2025 End: February 13, 2025 Dr. Shena Jeffers DO Referring Provider Active Start: February 13, 2025 End: February 13, 2025 Dr. Silvestre Rossi MD Attending Provider Active S tart: February 13, 2025 End: February 13, 2025 Team Status: Active Member Role Status Dates Dr. Shena Jeffers DO Primary Care Provider Active Start: February 13, 2025 Dr. Silvestre Rossi MD Attending Provider Active S tart: February 13, 2025 Dr. Silvestre Rossi MD Referring Provider Active S tart: February 13, 2025 Team Status: Inactive Member Role Status Dates Dr. Shena Jeffers DO Primary Care Provider Active Start: February 19, 2025 End: February 19, 2025 Dr. Shena Jeffers DO Referring Provider Active Start: February 19, 2025 End: February 19, 2025 Dr. Silvestre Rossi MD Attending Provider Active S tart: February 19, 2025 End: February 19, 2025 Team Status: Inactive Member Role Status Dates Dr. Shena Jeffers DO Primary Care Provider Active Start: March 06, 2025 End: March 06, 2025 Dr. Shena Jeffers DO Referring Provider Active Start: March 06, 2025 End: March 06, 2025 EDDIE Trujillo Attending Provider Active Start: March 06, 2025 End: March 06, 2025 Team Status: Active Member Role/Relationship Status Dates Dr. Shena Jeffers DO Primary Care Provider Active Team Status: Inactive Member Role/Relationship Status Dates Dr. Shena Jeffers DO Primary Care Provider Active Start: February 13, 2025 End: February 13, 2025 Dr. Shena Jeffers DO Referring Provider Active Start: February 13, 2025 End: February 13, 2025 Dr. Silvestre Rossi MD Attending Provider Active S tart: February 13, 2025 End: February 13, 2025 Team Status: Active Member Role/Relationship Status Dates Dr. Shena Jeffers DO Primary Care Provider Active Start: February 13, 2025 Dr. Silvestre Rossi MD Attending Provider Active S tart: February 13, 2025 Dr. Silvestre Rossi MD Referring Provider Active S tart: February 13, 2025 Team Status: Inactive Member Role/Relationship Status Dates Dr. Shena Jeffers DO Primary Care Provider Active Start: February 19, 2025 End: February 19, 2025 Dr. Shena Jeffers DO Referring Provider Active Start: February 19, 2025 End: February 19, 2025 Dr. Silvestre Rossi MD Attending Provider Active S tart: February 19, 2025 End: February 19, 2025 Team Status: Inactive Member Role/Relationship Status Dates Dr. Shena Jeffers DO Primary Care Provider Active Start: March 06, 2025 End: March 06, 2025 Dr. Shena Jeffers DO Referring Provider Active Start: March 06, 2025 End: March 06, 2025 EDDIE Trujillo Attending Provider Active Start: March 06, 2025 End: March 06, 2025 Team Status: Inactive Member Role/Relationship Status Dates Dr. Shena Jeffers DO Primary Care Provider Active Start: April 22, 2025 End: April 22, 2025 Dr. Haresh Ceja MD Attending Provider Active Sta rt: April 22, 2025 End: April 22, 2025 Dr. Haresh Ceja MD Referring Provider Active Sta rt: April 22, 2025 End: April 22, 2025 INFORMATION SOURCE (unrecogn ized section and content) DATE CREATED AUTHOR 02/25/2023 [facility] DATE CREATED AUTHOR AUTHOR'S ORGANIZ ATION 04/27/2025 [facility] FOR RECORDS PERTAINING TO PATIENTS WHO ARE OR HAVE BEEN ENROLLED IN A CHEMICAL DEPENDENCY/SUBSTANCEABUSE PROGRAM, SOME INFORMATION MAY BE OMITTED. This clinical summary was aggregated from multiple sources. Caution should be exercised in using it in the provision of clinical care. This summary normalizes information from multiple sources, and as a consequence, information in this document may materially change the coding, format and clinical context of patient data. In addition, data may be omitted in some cases. CLINICAL DECISIONS SHOULD BE BASED ON THE PRIMARY CLINICAL RECORDS. [facility]. provides no warranty or guarantee of the accuracy or completeness of information in this document.
== END 2025-05-06 23:59 | disposition home or self-care (01) ==
LOC: MTLAB 16:30
PROVIDERS: Internal Medicine Medical Oncology; PCP Internal Medicine; Referring Provider Nurse Practitioner Family; Visit Provider Nurse Practitioner Family
DX: D50.0 Iron deficiency anemia secondary to blood loss (chronic) (principal); E10.65 Type 1 diabetes mellitus with hyperglycemia; D64.9 Anemia, unspecified
CPT/HCPCS: 36415; 80053; 82043; 82570; 82728; 83540; 83550; 83615; 84439; 84443; 85025

== ENCOUNTER → 2025-06-11 | Outpatient (CLI) | payer MEDICARE, OTHER, SELFPAY | END | disposition home or self-care (01) | LOC: LABSPEC 14:24 | PROVIDERS: PCP Internal Medicine; Visit Provider Physician Assistant | DX: R30.0 Dysuria (principal) | CPT/HCPCS: 87077; 87086; 87088; 87186 ==